=== PATIENT | female | born 1945 | race Caucasian/White ===

== ENCOUNTER 2024-08-06 17:09 | Inpatient (IN) | payer MEDICARE, SELFPAY ==
[2024-08-06] VITALS (13 sets, daily range): BP systolic 60–127; BP diastolic 32–113; PULSE 41–58; RESP 12–22; TEMP 36.3–36.4; O2SAT 93–98
--- NOTE | ~2024-08-06 | US_ITS ---
US renal BI Ordering provider: Mary Farrell MD History: . TOÑA . Comparison: None. Technique: Ultrasound bilateral kidneys. Findings: RIGHT KIDNEY: Measures 11.9x 6.2x 5 cm in length which is normal in size. No renal cysts. No renal ma ss or visualized echogenic stones. Otherwise, normal echotexture and contour. No hydronephrosis. Norm al renal cortical thickness. LEFT KIDNEY: Measures 10.8x 5x 4 cm in length which is normal in size. No renal cysts. No renal mass or visualized echogenic stones. Otherwise, normal echotexture and contour. No hydronephrosis. Normal renal cortical thickness. BLADDER: Stafford's catheter seen in the bladder. IMPRESSION: No definite abnormality seen. Reviewed, dictated and finalized at location A. WRESTLER
--- NOTE | ~2024-08-06 | XR_ITS ---
XR chest 1V portable 08/15/2024 13:06 Indication: Pacemaker insertion Procedure: AP portable chest Comparison: 08/06/2024 and 08/07/2024 Findings: Cardiomegaly. Mild interstitial edema. Pacemaker leads are in the right atrium and right ve ntricle respectively. Right IJ central line tip in the SVC. No significant effusion. No pneumothorax. Impression: 1: Cardiomegaly with mild interstitial edema. Reviewed, dictated and finalized at location A. PEEL OPERATOR Impression: 1: Cardiomegaly with mild interstitial edema.
--- NOTE | ~2024-08-06 | XR_ITS ---
CHEST RADIOGRAPH CLINICAL HISTORY: hypotensive . COMPARISON: None available TECHNIQUE: Single portable view of the chest. Examination is markedly limited by patient positioning as the patient is rotated towards there right side. FINDINGS Elevation of the right hemidiaphragm with adjacent compressive atelectasis. The cardiomediastinal silhouette is partially obscured by the right hilum. The remainder of the lungs are clear. IMPRESSION: Elevation of the right hemidiaphragm with adjacent compressive atelectasis. The remainder of the lungs are clear. Reviewed, dictated and finalized at location A. IRER ART OBJECTS
--- NOTE | ~2024-08-06 | CT_ITS ---
EXAMINATION: CT chest abdomen pelvis wo con DATE: 08/13/2024 14:37 INDICATION: Persistent leukocytosis. TECHNIQUE: Computed tomography (CT) of the chest, abdomen, and pelvis was performed without intraveno us contrast. Automated exposure control and iterative reconstruction technique were employed. The dos e-length product was 1736.13 mGy-cm. COMPARISON: 08/06/2024 FINDINGS: CHEST CT: Right internal jugular central venous catheter with distal tip at the superior cavoatrial junction. T here are small bilateral posterior layering pleural effusions. There are new patchy groundglass opaci ties in both lungs most prominent in the upper lobes but without significant associated septal line t hickening to elevate suspicion for pulmonary edema and would favor pneumonia. Heart size is normal. S mall amount of scattered atherosclerotic coronary artery calcification. Aortic valve and mitral annul ar calcification. No pericardial effusion. Severe thoracic spondylosis with chronic mild anterior wed ging of a few mid to lower thoracic vertebral bodies. ABDOMEN/PELVIS CT: Prominent peripherally calcified gallstone at the fundus of the normal-appearing gallbladder. Liver, spleen, pancreas and bilateral adrenal glands are normal. Again seen is bilateral nephrolithiasis mor e prominent on the right where there are unchanged large stones or stone fragments at the renal pelvi s and in an upper pole calyx. Unchanged 3 mm stone in a middle calyx of the left kidney. New right in ternal ureteral stent with loops formed in the decompressed bladder and in an upper pole calyx of the right kidney. No hydronephrosis on either the left or right. Small amount of gas in the decompressed bladder likely related to the recent stent placement. There is moderate colonic diverticulosis with a sigmoid predominance. There is no adjacent inflammatory change to suggest diverticulitis. Normal appendix. No bowel obstruction unchanged moderate-sized fat-containing umbilical hernia. Coarse calci fications in the anteverted uterus likely related to chronic degenerated fibroids. Bilateral adnexa a re unremarkable. No abscess or free intraperitoneal gas or fluid. No pathologically enlarged abdomina l or pelvic lymphadenopathy. Severe lumbar spondylosis. 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 IMPRESSION: 1. Patchy bilateral groundglass opacities in the lungs and favor pneumonia over pulmonary edema with differential also including less likely hypersensitivity pneumonitis or eosinophilic pneumonia. 2. Small bilateral pleural effusions. 3. Cholelithiasis. 4. Bilateral nephrolithiasis more prominent on the right with right internal ureteral stent in expect ed position. No hydronephrosis. 5. Moderate diverticulosis. 6. Moderate-sized fat-containing umbilical hernia. Reviewed, dictated and finalized at location B. STORE MERCHANDISER IMPRESSION: 1. Patchy bilateral groundglass opacities in the lungs and favor pneumonia over pulmonary edema with differential also including less likely hypersensitivity pneumonitis or eosinophilic pneumonia. 2. Small bilateral pleural effusions. 3. Cholelithiasis. 4. Bilateral nephrolithiasis more prominent on the right with right internal ur eteral stent in expected position. No hydronephrosis. 5. Moderate diverticulosis. 6. Moderate-sized fat-containing umbilical hernia.
--- NOTE | ~2024-08-06 | XR_ITS ---
EXAMINATION: XR retrograde pyelo w/stent RT DATE: 08/07/2024 12:10 INDICATION: Right kidney stone. TECHNIQUE: 2 intraoperative fluoroscopic views of the abdomen were obtained. I was not present. Fluor oscopy exposure time was 26 seconds. COMPARISON: CT abdomen and pelvis 08/06/24 FINDINGS: A right-sided retrograde pyelogram was performed. The final images demonstrate a right inte rnal ureteral stent in expected position. IMPRESSION: 1. Right internal ureteral stent in expected position. Reviewed, dictated and finalized at location A. ITURE DECALS INSPECTOR
--- NOTE | ~2024-08-06 | XR_ITS ---
Portable chest x-ray Comparison: 08/05/2024 Clinical History: Line placement Findings: Right IJ line are in satisfactory position. No pneumothorax. Lungs are clear, without foca l consolidation or pleural effusion. Cardiomediastinal silhouette is stable. Bones and soft tissues are unremarkable. Impression: Right IJ line in place. Clear lungs. Reviewed, dictated and finalized at location . E TENDER Impression: Right IJ line in place. Clear lungs.
--- NOTE | ~2024-08-06 | XR_ITS ---
EXAMINATION: XR chest 1V portable DATE: 08/16/2024 12:50 INDICATION: 24 hour post pacemaker insertion TECHNIQUE: frontal view of the chest was obtained. COMPARISON: Chest radiograph dated 08/15/2024 FINDINGS: Patient is rotated slightly towards the right. Unchanged mild elevation the right hemidiaphragm. Ther e are linear opacities in the right mid to lower and left lower lung zones consistent with discoid at electasis. No pulmonary edema, pleural effusion or pneumothorax. Mild cardiomegaly. Dual lead pacemak er seen with leads projecting over the expected locations of the right atrium and right ventricle. Right internal jugular central venous catheter with distal tip at the caudal superior vena cava. IMPRESSION: 1. Scattered linear discoid atelectasis in the right mid to lower and left lower lung zones. Reviewed, dictated and finalized at location B. TRY FARM LABORER IMPRESSION: 1. Scattered linear discoid atelectasis in the right mid to lower and left lowe r lung zones.
--- NOTE | ~2024-08-06 | CT_ITS ---
CLINICAL INDICATION: Hypotension and diarrhea COMPARISON: None. TECHNIQUE: Multiple contiguous axial images of the abdomen and pelvis were performed without the admi nistration of intravenous contrast The dose-length product (DLP) was 1878.27 mGy-cm. Automated exposure control and iterative reconstruction technique were employed. FINDINGS/OBSERVATIONS: Chest: The bilateral lungs are clear. The heart is enlarged without pericardial effusion. The main pulmonary artery is enlarged suggesting pulmonary hypertension. No significant mediastinal lymphadenopathy. Diffuse bony demineralization within the thoracic spine. No acute fracture. Liver: The liver demonstrates homogeneous attenuation and is not enlarged measuring 17 cm in longitudinal di mension. Gallbladder and biliary system: A large lamellated stone is identified in the gallbladder without surrounding inflammatory change. Pancreas: Limited evaluation of the pancreas secondary to the lack of intravenous contrast. Spleen: The spleen demonstrates homogeneous attenuation and is not enlarged measuring 6 cm in longitudinal di mension. Kidneys: A large calcified stone opacifies the right renal pelvis (staghorn calculus) with global enlargement of the right kidney. Diffuse calcified stones are also identified within the remainder of the periphery of the right renal collecting system. The right ureter is not dilated. 4 mm nonobstructing calculus within the interpolar region of the left kidney. No left-sided hydroureteronephrosis is present. Adrenal glands: Unremarkable. Gastrointestinal tract: Rectosigmoid diverticulosis without surrounding inflammatory change. Fecal stasis within the colon. Appendix: The air-filled appendix is of normal caliber (axial series, images 89 through 112) Vasculature: Densely calcified atherosclerotic disease Lymph nodes: No pathologically enlarged or morphologically suspicious lymph nodes within the retroperitoneum or at the root of the mesentery. Pelvic structures: The bladder is only minimally distended, and demonstrates punctate foci of air with surrounding infla mmatory change, findings suggesting cystitis. The uterus is anteverted and anteflexed, and enlarged for a patient of this age. The uterus demonstrates a calcified nodular contour for which fibroids are suspected. Body wall and musculoskeletal: Large fat-containing, nonobstructing umbilical hernia Moderate degenerative disease within the lumbosacral spine. No acute fracture. No lytic or blastic le sions identified. IMPRESSION: Findings within the chest suggesting pulmonary hypertension. Staghorn calculus within the right kidney with global enlargement of the right kidney and surrounding inflammatory change. Lamellated stone within the gallbladder without additional abnormality. Punctate foci of air within the bladder with surrounding inflammatory change suggesting cystitis. Fibroid uterus, enlarged for a patient of this age. Nonobstructing fat-containing umbilical hernia. 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 Reviewed, dictated and finalized at location A. RSION METAL CLEANER IMPRESSION: Findings within the chest suggesting pulmonary hypertension. Staghorn calculus within the right kidney with global enlargement of the right kidney and surrounding inflammatory change. Lamellated stone within the gallbladder without additional abnormality. Punctate foci of air within the bladder with surrounding inflammatory change montgomery ggesting cystitis. Fibroid uterus, enlarged for a patient of this age. Nonobstructing fat-containing umbilical hernia. 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
--- NOTE | ~2024-08-06 | US_ITS ---
EXAM: ABDOMEN ULTRASOUND HISTORY: transaminitis COMPARISON: None FINDINGS: LIVER: The liver is increased in echogenicity suggesting fatty infiltration. The portal vein is patent demonstrating hepatopedal flow. GALLBLADDER: A single lamellated stone is identified within the gallbladder, which is otherwise unrem arkable. A sonographic Berry sign is described. BILE DUCTS: Common bile duct measures 3.7mm. PANCREAS: Limited evaluation of the pancreas secondary to overlying bowel gas IMPRESSION: Single lamellated stone within the gallbladder with a sonographic Berry sign. Reviewed, dictated and finalized at location A. MACHINE OPERATOR
--- NOTE | 2024-08-06 17:28 | PC.NURSE ---
EDP aware of Pt vitals
[2024-08-06] MEDS: SODIUM CHLORIDE 0.9% IV 1,000 ML 999 ML IV CONT ×4 (17:30→20:29)
--- NOTE | 2024-08-06 17:36 | ECG_ITS ---
Test Date: 2024-08-06 19:00:42 Measurements Intervals [place] Rate: 44 P: 0 CA: 0 QRS: 30 QRSD: 125 T: 155 QT: 446 QTc: 382 Interpretive Statements POSSIBLE JUNCTIONAL BRADYCARDIA INFERIOR MYOCARDIAL INFARCTION , OF INDETERMINATE AGE [40+ ms Q WAVE AND/OR ST/T ABNORMALITY IN II/aVF] No previous ECG available for comparison Electronically Signed On 08-08-2024 17:16:44 BENDER MACHINE by Christian Springer M.D.
--- NOTE | 2024-08-06 17:48 | ED_ITS ---
HPI - Weakness General Chief complaint: Weakness Stated complaint: weakness, sore throat Time Seen by Provider: 08/06/24 17:12 Source: patient and RN notes reviewed Mode of arrival: EMS Limitations: no limitations History of Present Illness HPI Narrative: Patient presents with generalized weakness, sore throat, and decreased p.o. intake since Thanks. EMS found her on a feces in urine-soaked mattress. Patient lives with her she states her kept asking her if she wanted to go to the hospital but she kept declining this until today. She is on 2 L oxygen nasal cannula as needed and has a history of asthma, COPD, atrial fibrillation, and hypertension. She denies any cough, chest pain, shortness of breath, abdominal pain, or headache. She states she had some diarrhea today but that is the 1st time. Related Data Home Medications ?Medication ?Instructions ?Recorded ?Confirmed ?Last Taken ?Type albuterol sulfate 90 mcg/actuation 1 inhalation inhalation BID 08/07/24 08/07/24 Unknown History aerosol inhaler amiodarone 200 mg tablet 200 mg PO DAILY 08/07/24 08/07/24 Unknown History apixaban 2.5 mg tablet (Eliquis) 2.5 mg PO BID 08/07/24 08/07/24 Unknown History atorvastatin 10 mg tablet 5 mg PO QPM 08/07/24 08/07/24 Unknown History bupropion HCl 150 mg tablet,12 hr 150 mg PO BID 08/07/24 08/07/24 Unknown History sustained-release carvedilol 3.125 mg tablet 3.125 mg PO BID 08/07/24 08/07/24 Unknown History fluoxetine 20 mg capsule 20 mg PO DAILY 08/07/24 08/07/24 Unknown History fluticasone propionate 50 1 spray intranasal DAILY 08/07/24 08/07/24 Unknown History mcg/actuation nasal spray,suspension (Flonase Allergy Relief) furosemide 40 mg tablet 40 mg PO DAILY 08/07/24 08/07/24 Unknown History loratadine 10 mg tablet 10 mg PO DAILY 08/07/24 08/07/24 Unknown History sacubitril 24 mg-valsartan 26 mg 1 tablet PO BID 08/07/24 08/07/24 Unknown History tablet (Entresto) sodium di- and 1 tablet PO QID 08/07/24 08/07/24 Unknown History monophosphate-potassium phos monobasic 250 mg tablet (Fan-Phos Neutral) spironolactone 25 mg tablet 25 mg PO DAILY 08/07/24 08/07/24 Unknown History topiramate 25 mg tablet 25 mg PO BID 08/07/24 08/07/24 Unknown History Allergies Allergy/AdvReac Type Severity Reaction Status Date / Time BLOOD PRESSURE PILL Allergy Unknown Uncoded 06/10/15 08:59 [facility] Past Medical History Medical History Paroxysmal atrial fibrillation Chronic anticoagulation Chronic kidney disease CHF (congestive heart failure) Morbid obesity with BMI of 45.0-49.9, adult HTN (hypertension) COPD (chronic obstructive pulmonary disease) Asthma Family History Family History Mother Kidney failure Social History Social History Social History: She lives with her of 48 years. She has 2 adult children who do not live nearby. She is a lifelong nonsmoker and denies any history of drug use. 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 She used to drink a couple of alcoholic beverages a week but has not done so in many years. Code status: After multiple conversations and discussion with multiple staff members the patient has decided that she would like to be a DNR/DNI. She would be okay with pressors and noninvasive ventilator support if needed but would not want cardiac resuscitation or intubation. Surrogate decision maker: Smoking status: Never smoker Alcohol intake: never Substance use: never Do You Feel Safe in your Home?: Yes Lack of Transportation: No Lack of Food: Never True Current Housing: I Have Housing Concerned About Future Housing: No Difficulty Paying Gas/Electric Bills: No Difficulty Paying for Meds: No Currently Unemployed: No Education: Decline to Answer Difficulty w/ Childcare or Family Care: No Living arrangements: with family Additional living arrangements comments: Spiritual care concerns: No Exam 2 Narrative: GENERAL: iin no acute distress. HEAD: Normocephalic, atraumatic. EYES: Non injected, non icteric ENT: Nares clear, no rhinorrhea or epistaxis. Dry mucous membranes. NECK: Supple. CHEST: Speaking in full sentences. No respiratory distress. Diminished at the bases HEART: Bradycardic rate and rhythm. . ABDOMEN: Soft, nondistended. BACK: Patient has stage I sacral decubitus ulcer with a very slight ulceration on one side. : Groin has some yeast and slight skin breakdown but no bullae/crepitus SKIN: Warm, dry, rash as above. NEURO: No focal deficits. Alert and oriented x3. PSYCH: Normal mood and affect. Course Vital Signs Vital signs: Vital Signs Temperature 97.5 F L 08/06/24 17:08 Pulse Rate 58 L 08/06/24 17:08 Respiratory Rate 12 08/06/24 17:08 Blood Pressure 68/32 L 08/06/24 17:08 Pulse Oximetry 96 08/06/24 17:08 Oxygen Delivery Room Air 08/06/24 17:08 Temperature 99.1 F 08/11/24 04:00 Pulse Rate 727 H 08/11/24 04:00 Respiratory Rate 31 H 08/11/24 04:00 Blood Pressure 107/72 08/11/24 04:00 Pulse Oximetry 93 08/11/24 04:00 Oxygen Delivery Nasal Cannula 08/11/24 00:00 Oxygen Flow Rate 2 08/11/24 00:00 MDM - Weakness MDM Narrative Medical decision making narrative: Patient presents with report of generalized weakness, sore throat, and decreased p.o. intake since . EMS found her on the urine and feces soaked mattress. In the emergency department she is afebrile with vital signs that show mild bradycardia as well as profound hypotension. Patient's medication list is reviewed which shows she is on Entresto as well spironolactone. She denies any history of heart failure that she knows of. She is also on Eliquis. Patient states she has been taking her medications as prescribed despite being weak; she mixes them in applesauce. Although she has a sore throat, Centor score 0 points. Will not proceed with testing for Strep but will give 1 time dose of dexamethasone muniz improved time to symptom resolution of pharyngitis. Less than 30ml/kg crystalloid bolus was initially ordered because it would be detrimental or harmful for the patient despite having Hypotension. The patient has the following condition Heart failure (based on medications on her med list - Entresto and spironolactone - and elevated pro BNP). In place of the 30ml/kg crystalloid bolus (>3600mL), the patient has received 2L initially. She has a leukocytosis of 22.3. Urinalysis concerning for urinary tract infection. Given her profound hypotension, will give broad spectrum antibiotics, vancomycin and cefepime. She is hypokalemic. Will replete with IV and PO given acute renal failure. Also hyponatremic. Transaminitis; RUQ US ordered. CT will have to be noncontrast given kidney function. Patient remains hypotensive, 80/50. Will give 3 L given that despite heart failure her chest x-ray does not show volume overload. Patient's calcium corrects to normal (9.0) given their hypoalbuminemia. Troponin is elevated. Will give patient aspirin and repeat 3 hour. Blood pressure improving and then at times Patient will intermittently if continue to appear hypotensive. I did go to bedside and see that she has a small cuff on her right forearm; this does not appear to be an appropriate method. A bariatric cuff was applied to her right upper extremity and BP 120/87 (MAP 96) followed by 127/113 (119 MAP). She remains alert and appears to be slightly more active although still weak. Patient had told the nurses she would not want chest compressions. Did assess at bedside and patient confirms in the event of cardiopulmonary arrest she does not want chest compressions or intubation then stating, If I should before I wake, I pray my soul you do not take. DIscussed with recreation superintendent hospitalist Dr Rose. Admission orders placed. Differential Diagnosis Differential diagnosis: Likely acute myocardial infarction, anemia, hypoglycemia, hypothyroidism, rhabdomyolysis, sepsis, dehydration and other (Acute viral syndrome, failure to thrive, ) Lab Data 08/10/24 05:52 08/10/24 05:52 Labs: Lab Results 08/06/24 08/06/24 08/06/24 Range/Units 17:53 17:58 18:13 WBC (4.5-10.0) K/mm3 RBC (4.2-5.4) M/mm3 Hgb (12.0-15.0) g/dL Hct (37.0-47.0) % MCV (80-100) fl MCH (26-34) pg MCHC (32-36) g/dl RDW (11.5-14.5) % Plt Count (150-375) k/mm3 MPV (7.4-10.4) fl Immature Gran % (Auto) Neut % (Auto) Lymph % (Auto) [place] % (Auto) Eos % (Auto) Baso % (Auto) Lymph # (Auto) [place] # (Auto) Eos # (Auto) Baso # (Auto) Abs Immat Gran (auto) Absolute Neuts (auto) Absolute Nucleated RBC Total Counted Neutrophils % (Manual) (46-73) % Band Neutrophils % (0-6) % Lymphocytes % (Manual) (18-44) % Monocytes % (Manual) (3-9) % Eosinophils % (Manual) (0-4) % Nucleated RBC % Abs Neuts (Manual) (1.7-7.2) K/mm3 Abs Lymphs (Manual) (1.1-4.5) K/mm3 Abs Monocytes (Manual) (0.1-0.90) K/mm3 Absolute Eos (Manual) (0.02-0.50) K/mm3 Platelet Estimate (Adequate) Large Platelets Schistocytes Sodium (137-145) mmol/L Potassium (3.4-5.0) mmol/L Chloride (98-107) mmol/L Carbon Dioxide (22-30) mmol/L Anion Gap (4-12) mmol/L BUN (7-17) mg/dL Creatinine (0.7-1.0) mg/dL Estim Creat Clear Calc ml/min Estimated GFR (59 - ) Glucose (65-110) mg/dL POC Capillary Glucose (65-105) mg/dl Lactic Acid (0.7-2.0) mmol/L Calcium (8.4-10.2) mg/dL Phosphorus (2.5-4.5) mg/dL Magnesium (1.6-2.3) mg/dL Total Bilirubin (0.2-1.3) mg/dL AST (14-36) U/L ALT (6-35) U/L Alkaline Phosphatase (38-126) U/L Total Creatine Kinase (30-135) U/L Troponin I (0.000-0.034) ng/mL NT-Pro-B Natriuret Pep (19.9-100) pg/mL Total Protein (6.3-8.2) g/dL Albumin (3.5-5.1) g/dL Procalcitonin ng/mL TSH (0.465-4.680) uIU/mL Urine Color Light red H (Yellow) Urine Appearance Turbid H (Clear) Urine pH TNP Ur Specific [place] TNP Urine Protein TNP Urine Glucose (UA) TNP Urine Ketones TNP Ur Blood (Man) TNP Urine Nitrate TNP Urine Bilirubin TNP Urine Urobilinogen TNP Add Ur Microanalysis Reviewed Leukocyte Esterase Rfl TNP Urine RBC >100 H (0-2) /hpf Urine WBC >100 H (0-3) /hpf Ur Squamous Epith Cells Many H (Few) /hpf Urine Bacteria 4+ /hpf Urine Opiates Screen Positive A (Negative) Urine Methadone Screen Negative (Negative) Ur Barbiturates Screen Negative (Negative) Ur Phencyclidine Scrn Negative (Negative) Ur Amphetamine Screen Negative (Negative) U Benzodiazepines Scrn Negative (Negative) Urine Cocaine Screen Negative (Negative) U Cannabinoids Screen Negative (Negative) C. difficile (PCR) Cancelled Influenza A (RT-PCR) Negative (Negative) Influenza B (RT-PCR) Negative (Negative) RSV (RT-PCR) Negative (Negative) SARS-CoV-2 RNA (RT-PCR) Negative (Negative) 08/06/24 08/06/24 Range/Units 18:14 19:11 WBC 22.3 H (4.5-10.0) K/mm3 RBC 4.09 L (4.2-5.4) M/mm3 Hgb 13.6 (12.0-15.0) g/dL Hct 37.3 (37.0-47.0) % MCV 91.2 (80-100) fl MCH 33.3 (26-34) pg MCHC 36.5 H (32-36) g/dl RDW 13.5 (11.5-14.5) % Plt Count 290 (150-375) k/mm3 MPV 9.9 (7.4-10.4) fl Immature Gran % (Auto) Not Reportable Neut % (Auto) Not Reportable Lymph % (Auto) Not Reportable [place] % (Auto) Not Reportable Eos % (Auto) Not Reportable Baso % (Auto) Not Reportable Lymph # (Auto) Not Reportable [place] # (Auto) Not Reportable Eos # (Auto) Not Reportable Baso # (Auto) Not Reportable Abs Immat Gran (auto) Not Reportable Absolute Neuts (auto) Not Reportable Absolute Nucleated RBC Not Reportable Total Counted 100 Neutrophils % (Manual) 69 (46-73) % Band Neutrophils % 7 H (0-6) % Lymphocytes % (Manual) 5.0 L (18-44) % Monocytes % (Manual) 9 (3-9) % Eosinophils % (Manual) 10 H (0-4) % Nucleated RBC % Not Reportable Abs Neuts (Manual) 16.94 H (1.7-7.2) K/mm3 Abs Lymphs (Manual) 1.11 (1.1-4.5) K/mm3 Abs Monocytes (Manual) 2.00 H (0.1-0.90) K/mm3 Absolute Eos (Manual) 2.23 H (0.02-0.50) K/mm3 Platelet Estimate Adequate (Adequate) Large Platelets Present Schistocytes None seen Sodium 133 L (137-145) mmol/L Potassium 3.1 L (3.4-5.0) mmol/L Chloride 97 L (98-107) mmol/L Carbon Dioxide 25 (22-30) mmol/L Anion Gap 11 (4-12) mmol/L BUN 66 H (7-17) mg/dL Creatinine 3.38 H (0.7-1.0) mg/dL Estim Creat Clear Calc 16 ml/min Estimated GFR 13 L (59 - ) Glucose 107 (65-110) mg/dL POC Capillary Glucose 101 (65-105) mg/dl Lactic Acid 2.4 H (0.7-2.0) mmol/L Calcium 7.6 L (8.4-10.2) mg/dL Phosphorus 5.7 H (2.5-4.5) mg/dL Magnesium 1.8 (1.6-2.3) mg/dL Total Bilirubin 2.2 H (0.2-1.3) mg/dL AST 295 H (14-36) U/L ALT 242 H (6-35) U/L Alkaline Phosphatase 131 H (38-126) U/L Total Creatine Kinase < 20 L (30-135) U/L Troponin I 0.037 H* (0.000-0.034) ng/mL NT-Pro-B Natriuret Pep 4390 H (19.9-100) pg/mL Total Protein 5.0 L (6.3-8.2) g/dL Albumin 2.3 L (3.5-5.1) g/dL Procalcitonin 2.3 ng/mL TSH 3.430 (0.465-4.680) uIU/mL Urine Color (Yellow) Urine Appearance (Clear) Urine pH Ur Specific [place] Urine Protein Urine Glucose (UA) Urine Ketones Ur Blood (Man) Urine Nitrate Urine Bilirubin Urine Urobilinogen Add Ur Microanalysis Leukocyte Esterase Rfl Urine RBC (0-2) /hpf Urine WBC (0-3) /hpf Ur Squamous Epith Cells (Few) /hpf Urine Bacteria /hpf Urine Opiates Screen (Negative) Urine Methadone Screen (Negative) Ur Barbiturates Screen (Negative) Ur Phencyclidine Scrn (Negative) Ur Amphetamine Screen (Negative) U Benzodiazepines Scrn (Negative) Urine Cocaine Screen (Negative) U Cannabinoids Screen (Negative) C. difficile (PCR) Influenza A (RT-PCR) (Negative) Influenza B (RT-PCR) (Negative) RSV (RT-PCR) (Negative) SARS-CoV-2 RNA (RT-PCR) (Negative) Imaging Data Radiologist's impression: Impressions Chest X-Ray 08/06/24 18:43 IMPRESSION: Elevation of the right hemidiaphragm with adjacent compressive atelectasis. The remainder of the lungs are clear. Abdomen Ultrasound 08/06/24 20:18 IMPRESSION: Single lamellated stone within the gallbladder with a sonographic Berry sign. Chest/Abdomen/Pelvis CT 08/06/24 20:22 IMPRESSION: Findings within the chest suggesting pulmonary hypertension. Staghorn calculus within the right kidney with global enlargement of the right kidney and surrounding inflammatory change. Lamellated stone within the gallbladder without additional abnormality. Punctate foci of air within the bladder with surrounding inflammatory change suggesting cystitis. Fibroid uterus, enlarged for a patient of this age. Nonobstructing fat-containing umbilical hernia. 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 ECG Data EKG #1: Attestation: I personally reviewed and interpreted this ECG as follows: ECG completion date: 08/06/24 ECG completion time: 19:00 Interpretation: Unclear rhythm though potentially slow atrial fibrillation versus junctional. QRS 125. QT/QTC 446/395. Discharge Plan Discharge Clinical Impression: Generalized weakness, Pharyngitis, Leukocytosis, Heart failure, Hypokalemia, Hyponatremia, Transaminitis, Hypoalbuminemia, Non-ST elevation [place] (NSTEMI), Pulmonary hypertension, Staghorn calculus, Cystitis, Fibroid uterus, DDD (degenerative disc disease), lumbosacral, Bradycardia, sinus UTI (urinary tract infection) Qualifiers: Urinary tract infection type: acute cystitis Hematuria presence: with hematuria Qualified Code(s): N30.01 - Acute cystitis with hematuria Acute renal failure Qualifiers: Acute renal failure type: unspecified Qualified Code(s): N17.9 - Acute kidney failure, unspecified Hernia, umbilical Qualifiers: Obstruction and gangrene presence: without obstruction or gangrene Qualified Code(s): K42.9 - Umbilical hernia without obstruction or gangrene Patient Disposition: Still a Patient Condition: Serious
[2024-08-06] MEDS: dexAMETHasone 2 MG TABLET 10 MG PO (18:07)
[2024-08-06 18:22] LABS: Hematocrit 37.3 % (37.0-47.0); Hemoglobin 13.6 g/dL (12.0-15.0); Mean Corpuscular HGB Conc 36.5 g/dl (32-36); Mean Corpuscular Hemoglobin 33.3 pg (26-34); Mean Corpuscular Volume 91.2 fl (80-100); Mean Platelet Volume 9.9 fl (7.4-10.4); Platelet Count Result 290 k/mm3 (150-375); Red Blood Count 4.09 M/mm3 (4.2-5.4); Red Cell Distribution Width 13.5 % (11.5-14.5); White Blood Count 22.3 K/mm3 (4.5-10.0)
[2024-08-06 18:23] LABS: Amphetamine Screen Urine Negative (Negative); Barbiturate Screen Urine Negative (Negative); Benzodiazepines Screen Urine Negative (Negative); Cannabinoid Screen Urine Negative (Negative); Cocaine Screen Urine Negative (Negative); Methadone Screen Urine Negative (Negative); Opiate Screen Urine Positive (Negative); Phencyclidine Screen Urine Negative (Negative)
[2024-08-06 18:32] LABS: Lactic Acid Reflex 2.4 mmol/L (0.7-2.0)
[2024-08-06 18:41] LABS: NT Pro B Type Natriuretic Pept 4390 pg/mL (19.9-100)
[2024-08-06 18:50] LABS: Bacteria Urine 4+ /hpf; Need Manual Microscopic Reviewed; RBC Urine >100 /hpf (0-2); Squamous Epithelial Cell Urine Many /hpf (Few); WBC Urine >100 /hpf (0-3)
[2024-08-06 18:58] LABS: Influenza A QL RT-PCR Negative (Negative); Influenza B QL RT-PCR Negative (Negative); RSV RNA, RT-PCR Negative (Negative); SARS-CoV-2 RNA PCR Negative (Negative)
[2024-08-06 19:00] LABS: Procalcitonin 2.3 ng/mL
[2024-08-06 19:05] LABS: Appearance Urine Turbid (Clear); Color Urine Light Red (Yellow)
[2024-08-06 19:09] LABS: Add Urine Microscopic? YES
[2024-08-06 19:16] LABS: Glucose Point of Care 101 mg/dl (65-105)
[2024-08-06 19:18] LABS: Alanine Aminotransferase 242 U/L (6-35); Albumin Level 2.3 g/dL (3.5-5.1); Alkaline Phosphatase 131 U/L (38-126); Anion Gap 11 mmol/L (4-12); Aspartate Amino Transferase 295 U/L (14-36); Bilirubin,Total 2.2 mg/dL (0.2-1.3); Blood Urea Nitrogen 66 mg/dL (7-17); Calcium 7.6 mg/dL (8.4-10.2); Carbon Dioxide 25 mmol/L (22-30); Chloride 97 mmol/L (98-107); Estimated CRCL calculation 16 ml/min; Estimated Glomerular Filt Rate 13; Glucose 107 mg/dL (65-110); Magnesium 1.8 mg/dL (1.6-2.3); Potassium 3.1 mmol/L (3.4-5.0); Sodium 133 mmol/L (137-145); Troponin I 0.037 ng/mL (0.000-0.034)
[2024-08-06 19:21] LABS: Creatine Kinase < 20 U/L (30-135)
[2024-08-06 19:22] LABS: Band Neutrophils Percent 7 % (0-6); Eosinophils Absolute Manual 2.23 K/mm3 (0.02-0.50); Eosinophils Percent Manual 10 % (0-4); Large Platelets Present; Lymphocytes Absolute Manual 1.11 K/mm3 (1.1-4.5); Monocytes Percent Manual 9 % (3-9); Neutrophils Absolute Manual 16.94 K/mm3 (1.7-7.2); Neutrophils Percent Manual 69 % (46-73); Platelet Estimate Adequate (Adequate); Schistocytes None Seen; Total Cells Counted 100
[2024-08-06] MEDS: ASPIRIN 81 MG CHEWABLE TABLET 324 MG PO (19:58)
[2024-08-06] MEDS: CEFEPIME 1 GM/NS 50 ML 1 GM/50 ML BAG IVPB (20:00)
[2024-08-06] MEDS: POTASSIUM BICARBONATE 25 MEQ TABEF PO (20:03)
[2024-08-06 20:14] LABS: Phosphorus 5.7 mg/dL (2.5-4.5)
[2024-08-06] MEDS: KCL 20 MEQ/SW 100 ML 100 ML 50 MEQ IVPB (20:29)
[2024-08-06 21:19] LABS: Reflex Lactic Acid Yes or No Add Lactic
[2024-08-06] MEDS: VANCOMYCIN 1,750 MG/NS 500 ML 1,750 MG/500 ML BAG 250 MG IVPB (21:27)
--- NOTE | 2024-08-06 21:44 | ECG_ITS ---
Test Date: 2024-08-06 21:50:10 Measurements Intervals [place] Rate: 91 P: -30 MD: 201 QRS: 37 QRSD: 124 T: 206 QT: 376 QTc: 463 Interpretive Statements UNCERTAIN RHYTHM DUE TO POOR TRACING QUALITY Compared to ECG 08/06/2024 19:00:42 UNCERTAIN RHYTHM DUE TO POOR TRACING QUALITY Electronically Signed On 08-08-2024 17:19:23 DOCTOR OF OSTEOPATHY by Christian Springer M.D.
[2024-08-06 22:30] LABS: Lactic Acid 1.5 mmol/L (0.7-2.0)
[2024-08-06 22:32] LABS: Troponin I 0.027 ng/mL (0.000-0.034)
--- NOTE | 2024-08-06 23:07 | P.HP_ITS ---
H&P: HPI History of Present Illness Date/Time: 08/06/24 23:07 Chief Complaint: Weakness Narrative: 79-year-old female with a past medical history of p.r.n. oxygen requirement, CHF, atrial fibrillation on chronic anticoagulation, depression, and essential hypertension who presented to the ER via EMS from home from home due to decreased oral intake since and generalized weakness. EMS found the patient laying in a urine and feces soaked mattress. The patient states that she lives with her of 40 years. She was discharged from acute rehab shortly before . She denies any fevers or chills. She has been having bilateral lower abdominal pain is cramping and aching in nature. Is accompanied by 2 weeks of dysuria. She denies any nausea or vomiting. Denies fevers or chills. She denies any shortness of breath. She reports that she is chronically constipated and did have 1 large soft stool on arrival to the ER. But again EMS found the patient on a urine and stool soaked mattress at home. Patient is alert orient x4. Source of information comes from ER physician report and on patient report. Patient is only a fair historian at best. She really denies history of heart failure but is on Entresto spironolactone and Lasix at home. She does have a history of paroxysmal atrial fibrillation and is on amiodarone and Eliquis chronically. She denies history of kidney disease but is on sodium phosphate supplementation. She reports that her mouth feels extremely dry and keeps asking for water. She states that she had been in a rehab placement sounds like for quite some time prior to being released. Although it does not sound like she recovered much of her functional status before being discharged home. She is chronically incontinent of urine. On arrival to the ER patient was markedly hypotensive with systolic blood pressures in the 60s. Patient received 2 L fluid bolus in the ER with initial improvement in blood pressures but recurrent hypotension occurred and she received 1/3 L fluid bolus. Active through the bolus patient's blood pressures did, for an indeterminate amount time but she was still having intermittent low blood pressures. By the time I arrived to the patient's bedside she was again persistently hypotensive in both upper extremities. Her blood pressures were in the 60 systolic. And I gave an additional order for Force L of fluids and to start the patient on peripheral dopamine. Because patient was also persistently bradycardic with heart rates in the low 40s. The patient reports that she continued to take all of her home medications even though she was progressively more weak, not eating and drinking and was extremely lightheaded. Labs in the ER demonstrated leukocytosis with bandemia. Acute kidney injury (suspected underlying chronic kidney disease with baseline unknown) and hypokalemia, hyperbilirubinemia, transaminitis, lactic acidosis and hypoalbuminemia. Her opiate screen was positive but patient does not have any known prescriptions for opiate pain medications and did not receive pain medications in the ER. Her UA was turbid and red in color with greater than 100 RBCs greater than 100 wbc's in many squamous epithelials with 4+ bacteria. CT of the chest abdomen pelvis without contrast demonstrated findings consistent of pulmonary hypertension, staghorn calculus within the right kidney with global enlargement of the right kidney with inflammatory changes, punctate foci of air in the bladder with surrounding inflammatory changes suggesting cystitis, laminated stone within the gallbladder without evidence of inflammation, enlarged uterus with uterine fibroids enlarged for patient's age, nonobstructing fat containing hernia of the umbilicus Review of Systems 2 Review of Systems: 12 systems were reviewed with pertinent positives and negatives per HPI. Except as documented in the HPI, all other systems were reviewed and are negative. [facility] Past Medical History Medical History (Updated 08/07/24 @ 05:33 by Glenys Rose DO) Paroxysmal atrial fibrillation Chronic anticoagulation Chronic kidney disease CHF (congestive heart failure) Morbid obesity with BMI of 45.0-49.9, adult HTN (hypertension) COPD (chronic obstructive pulmonary disease) Asthma Family History Family History (Updated 08/07/24 @ 02:42 by Yazan Cisneros RN) Mother Kidney failure Social History Social History (Updated 08/07/24 @ 09:06 by Glenys Rose DO) Social History: She lives with her of 48 years. She has 2 adult children who do not live nearby. She is a lifelong nonsmoker and denies any history of drug use. 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 She used to drink a couple of alcoholic beverages a week but has not done so in many years. Code status: After multiple conversations and discussion with multiple staff members the patient has decided that she would like to be a DNR/DNI. She would be okay with pressors and noninvasive ventilator support if needed but would not want cardiac resuscitation or intubation. Surrogate decision maker: Smoking status: Never smoker Alcohol intake: never Substance use: never Do You Feel Safe in your Home?: Yes Lack of Transportation: No Lack of Food: Never True Current Housing: I Have Housing Concerned About Future Housing: No Difficulty Paying Gas/Electric Bills: No Difficulty Paying for Meds: No Currently Unemployed: No Education: Decline to Answer Difficulty w/ Childcare or Family Care: No Living arrangements: with family Additional living arrangements comments: Spiritual care concerns: No Meds Home Medications and Allergies Home Medications ?Medication ?Instructions ?Recorded ?Confirmed ?Type albuterol sulfate 90 mcg/actuation 1 inhalation inhalation BID 08/07/24 08/07/24 History aerosol inhaler amiodarone 200 mg tablet 200 mg PO DAILY 08/07/24 08/07/24 History apixaban 2.5 mg tablet (Eliquis) 2.5 mg PO BID 08/07/24 08/07/24 History atorvastatin 10 mg tablet 5 mg PO QPM 08/07/24 08/07/24 History bupropion HCl 150 mg tablet,12 hr 150 mg PO BID 08/07/24 08/07/24 History sustained-release carvedilol 3.125 mg tablet 3.125 mg PO BID 08/07/24 08/07/24 History fluoxetine 20 mg capsule 20 mg PO DAILY 08/07/24 08/07/24 History fluticasone propionate 50 1 spray intranasal DAILY 08/07/24 08/07/24 History mcg/actuation nasal spray,suspension (Flonase Allergy Relief) furosemide 40 mg tablet 40 mg PO DAILY 08/07/24 08/07/24 History loratadine 10 mg tablet 10 mg PO DAILY 08/07/24 08/07/24 History sacubitril 24 mg-valsartan 26 mg 1 tablet PO BID 08/07/24 08/07/24 History tablet (Entresto) sodium di- and 1 tablet PO QID 08/07/24 08/07/24 History monophosphate-potassium phos monobasic 250 mg tablet (Fan-Phos Neutral) spironolactone 25 mg tablet 25 mg PO DAILY 08/07/24 08/07/24 History topiramate 25 mg tablet 25 mg PO BID 08/07/24 08/07/24 History Allergies Allergy/AdvReac Type Severity Reaction Status Date / Time BLOOD PRESSURE PILL Allergy Unknown Uncoded 06/10/15 08:59 Vital Signs Vital Signs - 24 hr 08/06/24 17:08 08/06/24 17:47 08/06/24 18:15 Temperature 97.5 F L Pulse Rate 58 L 49 L 44 L Respiratory Rate 12 14 Blood Pressure 68/32 L 66/55 L Pulse Oximetry 96 97 Oxygen Delivery Room Air 08/06/24 19:05 08/06/24 20:00 08/06/24 20:04 Temperature Pulse Rate 45 L 46 L 45 L Respiratory Rate 16 17 15 Blood Pressure 80/40 L 112/53 L 112/60 Pulse Oximetry 95 98 98 Oxygen Delivery 08/06/24 20:31 08/06/24 20:45 08/06/24 21:00 Temperature Pulse Rate 41 L 43 L 42 L Respiratory Rate 19 13 22 H Blood Pressure 62/54 L 120/87 127/113 H Pulse Oximetry 96 96 96 Oxygen Delivery 08/06/24 21:31 08/06/24 22:07 08/06/24 22:24 Temperature 97.3 F L Pulse Rate 56 L 43 L 43 L Respiratory Rate 16 15 21 H Blood Pressure 98/64 L Pulse Oximetry 97 93 93 Oxygen Delivery Exam 2 Narrative: Weight 115 kg BMI 46.4 Const: Other: Acutely ill-appearing, morbidly obese, appears stated age HENMT: Other: Fair dentition, dry mucous membranes, crowded posterior oropharynx Eyes: Other: Pupils are equal and reactive, no conjunctival pallor, no scleral icterus Neck: Other: No JVD, trachea midline Resp: Other: Clear to auscultation bilaterally, decreased breath sounds at bases, posterior lung exam not performed due to patient's clinical status and positioning. Cardio: Other: Significant bradycardia, 1+ radial pulses bilaterally, thready pedal pulses, no obvious murmur but distant heart sounds GI: Other: Morbidly obese, distended, soft : Other: Pure wick catheter in place with dark deepika/almost tea colored urine is slightly cloudy Skin: Other: Generalized pallor, non jaundice, cool to touch, 4-5 second cap refill, mottling of the hands and feet, nursing reported breakdown to the patient's buttocks of stage I I did not reposition the patient to evaluate as she was overtly hypotensive at the time of my evaluation Neuro: Other: Alert orient x4, speech is clear but slow, hard of hearing Extrem: Other: A no pitting edema, 3/5 rental car deliverer strength bilaterally patient having difficulty lifting her arms from the bed due to degree of weakness no clubbing, no cyanosis Psych: Other: Appropriate mood and affect, pleasant and cooperative, fair judgment and insight H&P: Results Labs Labs: Laboratory Tests 08/06/24 18:14 08/06/24 18:14 08/06/24 08/06/24 08/06/24 17:53 17:58 18:14 WBC 22.3 H RBC 4.09 L Hgb 13.6 Hct 37.3 MCV 91.2 MCH 33.3 MCHC 36.5 H RDW 13.5 Plt Count 290 MPV 9.9 Immature Gran % (Auto) Not Reportable Neut % (Auto) Not Reportable Lymph % (Auto) Not Reportable [place] % (Auto) Not Reportable Eos % (Auto) Not Reportable Baso % (Auto) Not Reportable Lymph # (Auto) Not Reportable [place] # (Auto) Not Reportable Eos # (Auto) Not Reportable Baso # (Auto) Not Reportable Abs Immat Gran (auto) Not Reportable Absolute Neuts (auto) Not Reportable Absolute Nucleated RBC Not Reportable Total Counted 100 Neutrophils % (Manual) 69 Band Neutrophils % 7 H Lymphocytes % (Manual) 5.0 L Monocytes % (Manual) 9 Eosinophils % (Manual) 10 H Nucleated RBC % Not Reportable Abs Neuts (Manual) 16.94 H Abs Lymphs (Manual) 1.11 Abs Monocytes (Manual) 2.00 H Absolute Eos (Manual) 2.23 H Platelet Estimate Adequate Large Platelets Present Schistocytes None seen Sodium 133 L Potassium 3.1 L Chloride 97 L Carbon Dioxide 25 Anion Gap 11 BUN 66 H Creatinine 3.38 H Estim Creat Clear Calc 16 Estimated GFR 13 L Glucose 107 POC Capillary Glucose Lactic Acid 2.4 H Calcium 7.6 L Phosphorus 5.7 H Magnesium 1.8 Total Bilirubin 2.2 H AST 295 H ALT 242 H Alkaline Phosphatase 131 H Total Creatine Kinase < 20 L Troponin I 0.037 H* NT-Pro-B Natriuret Pep 4390 H Total Protein 5.0 L Albumin 2.3 L Procalcitonin 2.3 TSH 3.430 Urine Color Light red H Urine Appearance Turbid H Urine pH TNP Ur Specific [place] TNP Urine Protein TNP Urine Glucose (UA) TNP Urine Ketones TNP Ur Blood (Man) TNP Urine Nitrate TNP Urine Bilirubin TNP Urine Urobilinogen TNP Add Ur Microanalysis Reviewed Leukocyte Esterase Rfl TNP Urine RBC >100 H Urine WBC >100 H Ur Squamous Epith Cells Many H Urine Bacteria 4+ Urine Opiates Screen Positive A Urine Methadone Screen Negative Ur Barbiturates Screen Negative Ur Phencyclidine Scrn Negative Ur Amphetamine Screen Negative U Benzodiazepines Scrn Negative Urine Cocaine Screen Negative U Cannabinoids Screen Negative Influenza A (RT-PCR) Negative Influenza B (RT-PCR) Negative RSV (RT-PCR) Negative SARS-CoV-2 RNA (RT-PCR) Negative 08/06/24 08/06/24 08/06/24 19:11 22:05 22:16 WBC RBC Hgb Hct MCV MCH MCHC RDW Plt Count MPV Immature Gran % (Auto) Neut % (Auto) Lymph % (Auto) [place] % (Auto) Eos % (Auto) Baso % (Auto) Lymph # (Auto) [place] # (Auto) Eos # (Auto) Baso # (Auto) Abs Immat Gran (auto) Absolute Neuts (auto) Absolute Nucleated RBC Total Counted Neutrophils % (Manual) Band Neutrophils % Lymphocytes % (Manual) Monocytes % (Manual) Eosinophils % (Manual) Nucleated RBC % Abs Neuts (Manual) Abs Lymphs (Manual) Abs Monocytes (Manual) Absolute Eos (Manual) Platelet Estimate Large Platelets Schistocytes Sodium Potassium Chloride Carbon Dioxide Anion Gap BUN Creatinine Estim Creat Clear Calc Estimated GFR Glucose POC Capillary Glucose 101 Lactic Acid 1.5 Calcium Phosphorus Magnesium Total Bilirubin AST ALT Alkaline Phosphatase Total Creatine Kinase Troponin I 0.027 D NT-Pro-B Natriuret Pep Total Protein Albumin Procalcitonin TSH Urine Color Urine Appearance Urine pH Ur Specific [place] Urine Protein Urine Glucose (UA) Urine Ketones Ur Blood (Man) Urine Nitrate Urine Bilirubin Urine Urobilinogen Add Ur Microanalysis Leukocyte Esterase Rfl Urine RBC Urine WBC Ur Squamous Epith Cells Urine Bacteria Urine Opiates Screen Urine Methadone Screen Ur Barbiturates Screen Ur Phencyclidine Scrn Ur Amphetamine Screen U Benzodiazepines Scrn Urine Cocaine Screen U Cannabinoids Screen Influenza A (RT-PCR) Influenza B (RT-PCR) RSV (RT-PCR) SARS-CoV-2 RNA (RT-PCR) Impressions Chest X-Ray 08/06/24 18:43 IMPRESSION: Elevation of the right hemidiaphragm with adjacent compressive atelectasis. The remainder of the lungs are clear. Abdomen Ultrasound 08/06/24 20:18 IMPRESSION: Single lamellated stone within the gallbladder with a sonographic Berry sign. Chest/Abdomen/Pelvis CT 08/06/24 20:22 IMPRESSION: Findings within the chest suggesting pulmonary hypertension. Staghorn calculus within the right kidney with global enlargement of the right kidney and surrounding inflammatory change. Lamellated stone within the gallbladder without additional abnormality. Punctate foci of air within the bladder with surrounding inflammatory change suggesting cystitis. Fibroid uterus, enlarged for a patient of this age. Nonobstructing fat-containing umbilical hernia. 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 Assessment and Plan Assessment and plan (1) Septic shock: Code(s): A41.9 - Sepsis, unspecified organism; R65.21 - Severe sepsis with septic shock Status: Acute (2) UTI (urinary tract infection): Qualifiers: Hematuria presence: with hematuria Urinary tract infection type: acute cystitis Qualified Code(s): N30.01 - Acute cystitis with hematuria Code(s): N39.0 - Urinary tract infection, site not specified Status: Acute (3) Bradycardia, sinus: Code(s): R00.1 - Bradycardia, unspecified Status: Acute (4) Acute renal failure: Qualifiers: Acute renal failure type: unspecified Qualified Code(s): N17.9 - Acute kidney failure, unspecified Code(s): N17.9 - Acute kidney failure, unspecified Status: Acute (5) Elevated troponin: Code(s): R79.89 - Other specified abnormal findings of blood chemistry Status: Acute (6) Transaminitis: Code(s): R74.01 - Elevation of levels of liver transaminase levels Status: Acute (7) Staghorn calculus: Code(s): N20.0 - Calculus of kidney Status: Acute (8) Pulmonary hypertension: Code(s): I27.20 - Pulmonary hypertension, unspecified Status: Acute (9) Acute respiratory failure with hypoxia: Code(s): J96.01 - Acute respiratory failure with hypoxia Status: Acute (10) Hyponatremia: Code(s): E87.1 - Hypo-osmolality and hyponatremia Status: Acute (11) Hypokalemia: Code(s): E87.6 - Hypokalemia Status: Acute (12) Chronic anticoagulation: Code(s): Z79.01 - long term acute care registered nurse (current) use of anticoagulants Status: Acute (13) Hypoalbuminemia: Code(s): E88.09 - Other disorders of plasma-protein metabolism, not elsewhere classified Status: Acute (14) Generalized weakness: Code(s): R53.1 - Weakness Status: Acute (15) Positive urine drug screen: Code(s): R82.5 - Elevated urine levels of drugs, medicaments and biological substances Status: Acute Plan Patient presents with shock likely due to sepsis. Patient has CT evidence of staghorn calculus with associated perinephric stranding and thickening of the bladder. Patient also has evidence of gallstone with sonographic Berry's sign and Berry sign on exam at the time my evaluation. She has associated acute kidney injury, transaminitis and hyperbilirubinemia. Patient been placed on empiric antibiotic therapy with cefepime and vancomycin. Both General surgery and Urology will be consulted. Will obtain repeat CBC and CMP in a.m.. Transaminitis may be due to acute biliary disease verses component of hepatic dysfunction due to shock. The patient has been adequately fluid resuscitation and actually received a total of 4 L of isotonic fluids. The patient remained hypotensive and I subsequently placed the patient on dopamine. Dopamine was chosen due to the patient's significant bradycardia with heart rates between 35 and 40 in the ER. Patient has cardiac rhythm did stabilize with dopamine and potassium supplementation. Cardiogenic shock is less likely given patient's minimal troponin elevation and subsequent improvement with treatment of underlying conditions. Troponin elevation likely due to cardiac strain from the above factors. Bradycardia is also likely multifactorial due to continue home use of amiodarone and Coreg. Will hold the patient's home antihypertensive medications and diuretic therapy. The patient's condition has stabilized and she has been able to be weaned down from dopamine of 15 down to a dopamine of 6 at the end of my shift. Patient's care has been transition to the reimbursement manager. Will obtain echocardiogram to further evaluate cardiac structure and function. Will monitor strict I&O's. The patient is tolerating pure wick catheter well. Patient does have profound hypoalbuminemia likely due to chronic protein malnutrition patient would benefit from nutritional supplements. Will ask for dietitian evaluation.. There may be some component of proteinuria but difficult to assess given limited interpretation of the patient's UA. Given the hematuria noted on patient's UA will hold Eliquis. Patient does have acute hypoxic respiratory failure and CT evidence of pulmonary hypertension. Patient is morbidly obese and I suspect has chronic underlying untreated obstructive sleep apnea. Patient would benefit from [facility] into polysomnogram as outpatient. Will continue supplemental oxygen as needed and wean as tolerated. Patient does have opiates present on her urine drug screen but I cannot see where the patient has had opiates prescribed on the prescription drug monitoring program. Will need to clarify whether not the patient has may have been obtaining her opiate prescriptions. Patient will need PT and OT evaluation when more clinically stable. 2 hours spent in critical care activities. Due to a high probability of clinically significant, life threatening deterioration, the patient required my highest level of preparedness to intervene emergently and I personally spent this critical care time directly and personally managing the patient. This critical care time included obtaining a history; examining the patient; pulse oximetry; ordering and review of studies; arranging urgent treatment with development of a management plan; evaluation of patient's response to treatment; frequent reassessment; and discussions with other providers. It was exclusive of separately billable procedures and treating other patients and teaching time. Please see Assessment and Plan section and the rest of the note for further information on patient assessment and treatment. Quality VTE Prophylaxis VTE prophylaxis: pharmacologic ordered (Continue home Eliquis.) Hospitalist [facility] Advance Care Plan I have confirmed that the patient's Advanced Care Plan is present, code status is documented, or surrogate decision maker is listed in patient medical record.: Yes Medication Reconciliation I have utilized all available resources to obtain, update and review the patients current medications (includes all prescriptions, OTC, herbals, cannabis, and nutritional supplements).: Yes
[2024-08-06] MEDS: DOPamine 400 MG/D5W 250 ML 400 MG/250 ML BAG 11.5 MG IV CONT (23:59)
[2024-08-07] VITALS (30 sets, daily range): BP systolic 62–132; BP diastolic 35–95; PULSE 43–76; RESP 15–27; TEMP 36.6–37.1; O2SAT 93–100; BMI 46.3
--- NOTE | 2024-08-07 | ECHO_ITS ---
Patient Info Name: Lupis Juarez Age: 79 years : 1945 Gender: Female Ht: 62 in Wt: 253 lbs BSA: 2.31 m2 HR: 66 bpm BP: 107 / 65 mmHg Heart Rhythm: Indeterminant, Right Bundle Branch Block Technical Quality: Good Exam Date: 08/07/2024 9:04 AM Exam Location: Echo Lab Patient Status: Inpatient Admit Date: 08/06/2024 Staff Ordering Physician: Glenys Rose DO Restoration Officer: Litzy Pichardo RDCS Attending Provider: Glenys Rose DO Referring Physician: Rose APPIAH; Exam Type: CA echo dop color flow w con Study Info Indications - shock Complete two-dimensional, color flow and Doppler transthoracic echocardiogram is performed with contrast to opacify the left ventricle and to improve the deliniation of the left ventricle endocardial borders. Contrast/Agitated Saline Contrast/Ag. Saline: Definity Amount: 2.00 ml Administered By: Litzy Pichardo RDCS Existing IV Access: Yes IV Access Condition: patent with no signs of infiltration Summary 1. Left ventricular chamber dimension is normal. 2. There is mildly increased left ventricular wall thickness. 3. Left ventricular systolic function is normal, estimated at 60-65%. 4. Right ventricular systolic function is normal. 5. Left atrial chamber dimension is moderately enlarged. 6. There is mild mitral valve regurgitation. 7. There is mild tricuspid valve regurgitation. Left Ventricle Left ventricular chamber dimension is normal. Left ventricular systolic function is normal, estimated at 60-65%. There is mildly increased left ventricular wall thickness. Left ventricular septal wall motion is abnormal with septal motion related to bundle branch block. The left ventricular diastolic function is indeterminate. Right Ventricle Right ventricular chamber dimension is normal. Right ventricular systolic function is normal. Left Atria Left atrial chamber dimension is moderately enlarged. Right Atria Right atrial chamber dimension is normal. Atrial Septum Intact interatrial septum visualized by color flow imaging. Aortic Valve The aortic valve is probable trileaflet. There is no aortic valve stenosis. There is no aortic valve regurgitation. There is mild aortic valve calcification. Pulmonic Valve The pulmonic valve is not well visualized. Mitral Valve There is mild mitral valve regurgitation. The mitral valve annulus is mildly calcified. Tricuspid Valve There is mild tricuspid valve regurgitation. Pericardium/Pleural There is no pericardial effusion. Inferior Vena Cava Dilated inferior vena cava with <50% collapse upon inspiration consistent with elevated right atrial pressure, 15 mmHg. Aorta The aortic root size at the sinus of Valsalva is normal. Left Ventricular Outflow Tract Name Value Normal LVOT 2D LVOT Diameter 2.01 cm LVOT Doppler LVOT Peak Gradient 2 mmHg LVOT Mean Gradient 1 mmHg LVOT VTI 15.61 cm LVOT VTI/AV VTI Ratio 0.53 LVOT Stroke Volume 49.64 ml LVOT CO 2.62 l/min LVOT CI 1.13 L/min/m2 Mitral Valve Name Value Normal MV Doppler MV Decel [place] 872.23 cm/s2 MV PHT 0 s MV Area (PHT) 5.49 cm2 4.00-5.00 MV Diastolic Function MV E Peak Velocity 120.43 cm/s MV A Peak Velocity 0.92 cm/s MV E/A 130.92 MV Decel Time 0 s MV Annular TDI MV E/e' (Septal) 11.34 <=8.00 MV E/e' (Lateral) 10.71 <=8.00 MV E/e' (Average) 11.02 Tricuspid Valve Name Value Normal TV Regurgitation Doppler TR Peak Velocity 242.79 cm/s TR Peak Gradient 24 mmHg Estimated PAP/RSVP RA Pressure 15 mmHg <=5 PA Systolic Pressure 39 mmHg <36 RV Systolic Pressure 39 mmHg <36 Aorta Name Value Normal Ascending Aorta Ao Root Diameter (MM) 2.70 cm Ao Root Diam Index (MM) 1.17 cm/m2 Aortic Valve Name Value Normal AV Doppler AV Peak Velocity 146.58 cm/s AV Peak Gradient 9 mmHg AV Mean Gradient 5 mmHg AV VTI 29.49 cm AV Area (Cont Eq VTI) 1.68 cm2 >=3.00 AV Area (Cont Eq Morales) 1.69 cm2 AV Regurgitation 2D LVOT Area 3.18 cm2 Ventricles Name Value Normal LV Dimensions 2D/MM IVS Diastolic Thickness (2D) 1.07 cm 0.60-1.00 LVID Diastole (2D) 5.49 cm 3.80-5.20 LVIW Diastolic Thickness (2D) 0.99 cm 0.60-0.90 LVID Systole (2D) 4.08 cm 2.20-3.50 LVOT Diameter 2.01 cm LV Mass (2D Cubed) 221.30 g 67.00-162.00 LV Mass Index (2D Cubed) 0.01 g/cm2 0.00-0.01 Relative Wall Thickness (2D) 0.36 LV Fractional Shortening/Ejection Fraction 2D/MM LV Fractional Shortening (2D) 26 % 27-45 LV EF (2D Teicholz) 50 % 54-74 LV Diastolic Volume (4C MOD) 66.64 ml LV EF (4C MOD) 69 % LV Diastolic Volume (2C MOD) 50.60 ml LV EF (2C MOD) 62 % LV Diastolic Volume (BP MOD) 58.63 ml 46.00-106.00 LV Diastolic Volume Index (BP MOD) 0.03 l/m2 0.03-0.06 LV Systolic Volume (BP MOD) 20.11 ml 14.00-42.00 LV Systolic Volume Index (BP MOD) 0.01 l/m2 0.01-0.02 LV EF (BP MOD) 66 % 54-74 LV Diastolic Length (4C) 7.22 cm LV Systolic Length (4C) 6.20 cm LV Stroke Volume (4C MOD) 45.86 ml Atria Name Value Normal LA Dimensions LA Dimension (MM) 5.55 cm 2.70-3.80 LA Volume (4C A-L) 59.23 ml LA Volume (BP A-L) 60.45 ml RA Dimensions RA Area (4C) 11.05 cm2 <=18.00 Report Signatures
--- NOTE | 2024-08-07 00:04 | PC.NURSE ---
Numerous attempts at blood pressures via monitor and manually with hypotension reported. Hospitalist arrives while manual being obtained and explains risks/benefits of central catheter placement. VORB to start Dopamine peripherally. VORB for 1000 mL bolus of Normal Saline. Consent signed by patient for placement of central line.
[2024-08-07] MEDS: LORazepam INJ (*CRX) 2 MG/ML VIAL 0.5 MG IV PUSH (00:21)
--- NOTE | 2024-08-07 02:26 | WPDPROCEDUR ---
Procedures Central Line Placement Right IJ: Central Line Date: 08/07/24 Central Line Time: 00:45 Discussed w/ the patient/family/POA,the placement of a central venous catheter, including its clinical necessity/indication & associated potential risks, benifits and alternatives.: Yes The patient/family/POA understand(s) and acknowledge(s) the need to proceed with central venous catheter insertion as an important element of the patient's clinical management.: Yes Consent: I have discussed with the patient and/or surrogate, the non-emergent placement of a central venous catheter, including its clinical necessity/indication and associated potential risks and complications. The patient and/or surrogate understand(s) and acknowledge(s) the need to proceed with central venous catheter insertion as an important element of the patient's clinical management. Time Out Performed: Yes Patient Position: trendelenburg Patient placed on monitor/pulse ox: Yes Provider Prep: mask, sterile gown, sterile gloves, Max. sterile barrier precautions, cap and hand hygiene with conventional soap/water or alcohol based hand rub Central line prep: 2% Chlorhexidine scrub and sterile full body sheet applied Local anesthesia used: lidocaine 1% Amount of anesthesia used (ml): 7 Sterile US Technique with sterile gel/sterile probe covers: Yes Central line lumen inserted: triple Lithuanian: 7 Length (cm): 16 Depth of Insertion (cm): 16 Post Procedure: sutured in place, good blood return, all ports aspirated, flushed, capped, transparent dressing, hemostatic product, antimicrobial product, securement product and aseptic technique maintained throughout procedure Post procedure x-ray: tip of catheter in good position and no pneumothorax seen Patient tolerated procedure: well Additional comments: Initially attempted central line on the left due to the patient's preference for urinary her head to the right and ease of preparation. However the patient moved whenever I was attempting line placement and I did neck of the carotid. Pressure was held for 5 minutes. Three other attempts were made on the left side with had difficulty obtaining access subsequently transition to right IJ. line was placed after multiple attempts. Post procedure x-ray did not demonstrate any obvious pneumothorax. Radiologic review is pending. Central line is appropriate position and okay for use
--- NOTE | 2024-08-07 02:33 | ADMGEN ---
0215: This patient, Lupis Juarez, was admitted to Intensive Care Unit-7. Patient/family oriented to hospital policies and general routines including ID bracelet, bed and alarms, visiting hours, pain management, procedures, bathroom and other care routines, personal items, smoking policy, room service/diet, and visiting hours. Information on how to activate the Rapid Response Team has been discussed. Patient/Family are encouraged to report perceived risks to care and to ask questions if they do not understand what they are told or what they should do.
[2024-08-07] MEDS: DOPamine 400 MG/D5W 250 ML 400 MG/250 ML BAG 43.13 MG IV CONT ×2 (03:18→21:51)
--- NOTE | 2024-08-07 03:19 | PC.NURSE ---
0215: Patient arrived to the unit on 10mcg/kg/min of dopamine. RN contacted ordering provider to change order to the titratable drip.
[2024-08-07] MEDS: CENTRAL LINE FLUSH 10 ML IV PUSH ×3 (05:58→20:23)
[2024-08-07] MEDS: DOPamine 400 MG/D5W 250 ML 400 MG/250 ML BAG 25.88 MG IV CONT (06:00)
[2024-08-07 06:18] LABS: Hematocrit 39.4 % (37.0-47.0); Hemoglobin 14.1 g/dL (12.0-15.0); Mean Corpuscular HGB Conc 35.8 g/dl (32-36); Mean Corpuscular Hemoglobin 32.9 pg (26-34); Mean Corpuscular Volume 91.8 fl (80-100); Mean Platelet Volume 9.7 fl (7.4-10.4); Platelet Count Result 333 k/mm3 (150-375); Red Blood Count 4.29 M/mm3 (4.2-5.4); Red Cell Distribution Width 14.1 % (11.5-14.5); White Blood Count 23.3 K/mm3 (4.5-10.0)
[2024-08-07 06:30] LABS: Alanine Aminotransferase 276 U/L (6-35); Albumin Level 2.6 g/dL (3.5-5.1); Alkaline Phosphatase 148 U/L (38-126); Anion Gap 9 mmol/L (4-12); Aspartate Amino Transferase 308 U/L (14-36); Bilirubin,Total 2.2 mg/dL (0.2-1.3); Blood Urea Nitrogen 62 mg/dL (7-17); Calcium 7.2 mg/dL (8.4-10.2); Carbon Dioxide 22 mmol/L (22-30); Chloride 102 mmol/L (98-107); Estimated CRCL calculation 18 ml/min; Estimated Glomerular Filt Rate 16; Glucose 198 mg/dL (65-110); Potassium 3.3 mmol/L (3.4-5.0); Sodium 133 mmol/L (137-145)
[2024-08-07 07:01] LABS: Strep Group A RT-PCR NOT DETECTED (Negative)
[2024-08-07 07:03] LABS: Band Neutrophils Percent 5 % (0-6); Burr Cells 1+; Lymphocytes Absolute Manual 1.39 K/mm3 (1.1-4.5); Lymphocytes Percent Manual 6 % (18-44); Neutrophils Percent Manual 89 % (46-73); Platelet Estimate Adequate (Adequate); Total Cells Counted 100
[2024-08-07 07:04] LABS: Schistocytes None Seen
[2024-08-07 08:20] LABS: MRSA (PCR) NOT DETECTED (NOT DETECTE)
[2024-08-07] MEDS: PERFLUTREN LIPID MICROSPHERES 1.5 ML VIAL DILUTED TO 10 ML TOTAL VOLUME IV PUSH (09:00)
[2024-08-07 09:07] LABS: Magnesium 1.7 mg/dL (1.6-2.3); Phosphorus 5.5 mg/dL (2.5-4.5)
--- NOTE | 2024-08-07 09:29 | P.CONIN_ITS ---
Assessment and Plan Assessment and plan (1) Septic shock: Code(s): A41.9 - Sepsis, unspecified organism; R65.21 - Severe sepsis with septic shock Status: Acute Assessment and Plan: 08/06: Patient presented with generalized weakness, hypovolemia, hypotension, leukocytosis, was found to be in septic shock, likely related to UTI, cholecystitis, hypovolemia -patient was adequately fluid resuscitated -lactic acid has normalized -central line was inserted in the right IJ -continue dopamine for bradycardia hypotension, maintain MAP > 65 mmHg for adequate end organ perfusion -08/06: Blood cultures have been obtained -08/06: Urine cultures have been obtained -started on vancomycin and cefepime (08/06), will deescalate on narrow spectrum once cultures are resulted 08/06: RUQ ultrasound: Single lamellated stone within the gallbladder with a sonographic Berry sign. Surgery has been consulted for possible cholecystitis (2) UTI (urinary tract infection): Qualifiers: Hematuria presence: with hematuria Urinary tract infection type: acute cystitis Qualified Code(s): N30.01 - Acute cystitis with hematuria Code(s): N39.0 - Urinary tract infection, site not specified Status: Acute Assessment and Plan: UTI could be related to staghorn calculus in the right kidney or cystitis -antibiotics as above (3) Staghorn calculus: Code(s): N20.0 - Calculus of kidney Status: Acute Assessment and Plan: Urology has been consulted 08/06: CT chest abdomen and pelvis: Findings within the chest suggesting pulmonary hypertension.Staghorn calculus within the right kidney with global enlargement of the right kidney and surrounding inflammatory change. Lamellated stone within the gallbladder without additional abnormality. Punctate foci of air within the bladder with surrounding inflammatory change suggesting cystitis. Fibroid uterus, enlarged for a patient of this age. Nonobstructing fat- containing umbilical hernia. 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 (4) Bradycardia, sinus: Code(s): R00.1 - Bradycardia, unspecified Status: Acute Assessment and Plan: Patient sinus bradycardia could be related to hypovolemia, but continue to take her home medications amiodarone, Coreg -patient currently on dopamine for bradycardia and hypotension -cardiology has been consulted -continue to hold AV annmarie blocking agents for now (5) Acute renal failure: Qualifiers: Acute renal failure type: unspecified Qualified Code(s): N17.9 - Acute kidney failure, unspecified Code(s): N17.9 - Acute kidney failure, unspecified Status: Acute Assessment and Plan: Acute renal failure likely related to hypovolemia, decreased oral intake, says septic shock/infection -patient received 3 L IV fluid bolus in the ER -start maintenance IV fluids for 1000 mL x1 -creatinine trending down -continue to monitor urine output, renal function electrolytes -nephrology was consulted from ER (6) Electrolyte imbalance: Code(s): E87.8 - Other disorders of electrolyte and fluid balance, not elsewhere classified Status: Acute Assessment and Plan: Replace potassium (7) Atrial fibrillation: Qualifiers: Atrial fibrillation type: paroxysmal Qualified Code(s): I48.0 - Paroxysmal atrial fibrillation Code(s): I48.91 - Unspecified atrial fibrillation Status: Acute Assessment and Plan: Patient has a history of atrial fibrillation on Eliquis at home -she also takes amiodarone and Coreg at home -currently bradycardic and hypotensive -continue to hold home medications -hold Eliquis until surgery and Urology evaluates the patient Plan DVT prophylaxis: Eliquis currently on hold until patient is evaluated by surgery and Urology Stress ulcer prophylaxis: Protonix Nutrition: NPO for now Code Status: Do not resuscitate Critical Care Time Spent: 49 minutes Due to a high probability of clinically significant, life threatening deterioration, the patient required my highest level of preparedness to intervene emergently and I personally spent this critical care time directly and personally managing the patient. This critical care time included obtaining a history; examining the patient; pulse oximetry; ordering and review of studies; arranging urgent treatment with development of a management plan; evaluation of patient's response to treatment; frequent reassessment; and discussions with other providers. It was exclusive of separately billable procedures and treating other patients and teaching time. Please see Assessment and Plan section and the rest of the note for further information on patient assessment and treatment This dictation may have been done utilizing a voice recognition system. Attempts have been made to correct errors. However, there may be uncorrected grammatical, spelling, and recognitions errors present. Reinforcer Consult Note Consult date: 08/07/24 Reason for consult: UTI, cholecystitis, generalized weakness, septic shock, acute kidney injury, renal staghorn calculus, electrolyte imbalance HPI: Lupis Juarez is a 79 year old female with significant past medical history of paroxysmal AFib on amiodarone a and Eliquis at home, chronic kidney disease, CHF, obesity, essential hypertension, COPD, asthma presented the ED on 08/06/2024 with complains of generalized weakness along with decreased oral intake since around . Patient found the patient laying in urine and feces is soaked mattress, the patient lives with her of 40 years. She also complained of bilateral abdominal crampy pain and cramping, dysuria for 2 weeks. She also complained of increased thirst and dryness in mouth. In the ER she was found to be hypotensive, received 3 L IV fluid bolus, remained hypotensive and bradycardic, was started on dopamine. Pertinent labs were WBC of 22.3, hemoglobin 13.6, platelets of 290, 7% bandemia, sodium 133, potassium 3.1, creatinine 3.38, BUN 66, CO2 25, lactic acid 2.4, repeat lactic acid 1.5 after IV fluids, phosphorus of 5.7, magnesium 1.8, total bilirubin 2.2, AST ALT and alk-phos were elevated, creatinine kinase was less than 20, troponins was 0.037 and 0.027. Albumin of 2.3, procalcitonin of 2.3, TSH was within normal limits. UA seem to be positive for UTI, MRSA nares was negative. Urine drug screen was positive for opiates. Influenza, RSV and COVID were negative 08/06: CT chest abdomen and pelvis: Findings within the chest suggesting pulmonary hypertension.Staghorn calculus within the right kidney with global enlargement of the right kidney and surrounding inflammatory change. Lamellated stone within the gallbladder without additional abnormality. Punctate foci of air within the bladder with surrounding inflammatory change suggesting cystitis. Fibroid uterus, enlarged for a patient of this age. Nonobstructing fat- containing umbilical hernia. 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 08/06: RUQ ultrasound: Single lamellated stone within the gallbladder with a sonographic Berry sign. Patient was started on cefepime, vancomycin, dopamine infusion and transferred to the ICU for further management Patient seen and examined the ICU this morning, is awake, alert, oriented, she slow to respond but answers to questions and follows simple commands. Denies any chest pain, shortness of breath, nausea, vomiting. Complains of mild abdominal pain, unable to tell me exactly where. Patient has been afebrile since admission, 2 L nasal cannula with adequate O2 sats. Remains on dopamine at 6 mcg/kg/min, remains bradycardic in the 50s Review of Systems 2 Review of Systems: All systems reviewed & are unremarkable except as noted in HPI and below PMFSH Past Medical History Medical History Paroxysmal atrial fibrillation Chronic anticoagulation Chronic kidney disease CHF (congestive heart failure) Morbid obesity with BMI of 45.0-49.9, adult HTN (hypertension) COPD (chronic obstructive pulmonary disease) Asthma Family History Family History Mother Kidney failure Social History Social History Social History: She lives with her of 48 years. She has 2 adult children who do not live nearby. She is a lifelong nonsmoker and denies any history of drug use. 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 She used to drink a couple of alcoholic beverages a week but has not done so in many years. Code status: After multiple conversations and discussion with multiple staff members the patient has decided that she would like to be a DNR/DNI. She would be okay with pressors and noninvasive ventilator support if needed but would not want cardiac resuscitation or intubation. Surrogate decision maker: Smoking status: Never smoker Alcohol intake: never Substance use: never Do You Feel Safe in your Home?: Yes Lack of Transportation: No Lack of Food: Never True Current Housing: I Have Housing Concerned About Future Housing: No Difficulty Paying Gas/Electric Bills: No Difficulty Paying for Meds: No Currently Unemployed: No Education: Decline to Answer Difficulty w/ Childcare or Family Care: No Living arrangements: with family Additional living arrangements comments: Spiritual care concerns: No Meds Home Medications and Allergies Home Medications ?Medication ?Instructions ?Recorded ?Confirmed ?Type albuterol sulfate 90 mcg/actuation 1 inhalation inhalation BID 08/07/24 08/07/24 History aerosol inhaler amiodarone 200 mg tablet 200 mg PO DAILY 08/07/24 08/07/24 History apixaban 2.5 mg tablet (Eliquis) 2.5 mg PO BID 08/07/24 08/07/24 History atorvastatin 10 mg tablet 5 mg PO QPM 08/07/24 08/07/24 History bupropion HCl 150 mg tablet,12 hr 150 mg PO BID 08/07/24 08/07/24 History sustained-release carvedilol 3.125 mg tablet 3.125 mg PO BID 08/07/24 08/07/24 History fluoxetine 20 mg capsule 20 mg PO DAILY 08/07/24 08/07/24 History fluticasone propionate 50 1 spray intranasal DAILY 08/07/24 08/07/24 History mcg/actuation nasal spray,suspension (Flonase Allergy Relief) furosemide 40 mg tablet 40 mg PO DAILY 08/07/24 08/07/24 History loratadine 10 mg tablet 10 mg PO DAILY 08/07/24 08/07/24 History sacubitril 24 mg-valsartan 26 mg 1 tablet PO BID 08/07/24 08/07/24 History tablet (Entresto) sodium di- and 1 tablet PO QID 08/07/24 08/07/24 History monophosphate-potassium phos monobasic 250 mg tablet (Fan-Phos Neutral) spironolactone 25 mg tablet 25 mg PO DAILY 08/07/24 08/07/24 History topiramate 25 mg tablet 25 mg PO BID 08/07/24 08/07/24 History Allergies Allergy/AdvReac Type Severity Reaction Status Date / Time BLOOD PRESSURE PILL Allergy Unknown Uncoded 06/10/15 08:59 Vital Signs Vital Signs - 24 hr 08/06/24 17:08 08/06/24 17:47 08/06/24 18:15 Temperature 97.5 F L Pulse Rate 58 L 49 L 44 L Respiratory Rate 12 14 Blood Pressure 68/32 L 66/55 L Pulse Oximetry 96 97 Oxygen Delivery Room Air Oxygen Flow Rate 08/06/24 19:05 08/06/24 20:00 08/06/24 20:04 Temperature Pulse Rate 45 L 46 L 45 L Respiratory Rate 16 17 15 Blood Pressure 80/40 L 112/53 L 112/60 Pulse Oximetry 95 98 98 Oxygen Delivery Oxygen Flow Rate 08/06/24 20:31 08/06/24 20:45 08/06/24 21:00 Temperature Pulse Rate 41 L 43 L 42 L Respiratory Rate 19 13 22 H Blood Pressure 62/54 L 120/87 127/113 H Pulse Oximetry 96 96 96 Oxygen Delivery Oxygen Flow Rate 08/06/24 21:31 08/06/24 22:07 08/06/24 22:24 Temperature 97.3 F L Pulse Rate 56 L 43 L 43 L Respiratory Rate 16 15 21 H Blood Pressure 98/64 L Pulse Oximetry 97 93 93 Oxygen Delivery Oxygen Flow Rate 08/06/24 23:59 08/07/24 00:03 08/07/24 00:24 Temperature Pulse Rate 43 L 43 L 48 L Respiratory Rate 17 Blood Pressure 60/44 L 66/44 L 70/42 L Pulse Oximetry 93 Oxygen Delivery Oxygen Flow Rate 08/07/24 00:35 08/07/24 00:37 08/07/24 01:45 Temperature Pulse Rate 68 62 70 Respiratory Rate 22 H 17 Blood Pressure 92/46 L 80/52 L 98/44 L Pulse Oximetry 97 97 Oxygen Delivery Oxygen Flow Rate 08/07/24 02:15 08/07/24 02:25 08/07/24 02:30 Temperature 98.8 F Pulse Rate 76 67 Respiratory Rate 22 H 17 Blood Pressure 76/54 L 90/54 L 116/74 Pulse Oximetry 93 97 Oxygen Delivery Oxygen Flow Rate 08/07/24 03:18 08/07/24 04:00 08/07/24 04:00 Temperature Pulse Rate 71 70 Respiratory Rate Blood Pressure 76/54 L Pulse Oximetry 97 Oxygen Delivery Nasal Cannula Oxygen Flow Rate 2 08/07/24 04:00 08/07/24 04:00 08/07/24 05:00 Temperature 98 F Pulse Rate 70 70 66 Respiratory Rate 23 H Blood Pressure 121/49 L 121/49 L 107/65 Pulse Oximetry 96 Oxygen Delivery Oxygen Flow Rate 08/07/24 05:42 08/07/24 06:00 08/07/24 06:00 Temperature Pulse Rate 67 66 Respiratory Rate Blood Pressure 99/58 L 128/95 H Pulse Oximetry Oxygen Delivery Oxygen Flow Rate 08/07/24 06:00 08/07/24 06:00 Temperature Pulse Rate 64 64 Respiratory Rate Blood Pressure 128/95 H 128/95 H Pulse Oximetry Oxygen Delivery Oxygen Flow Rate Exam 2 Narrative: General: Pleasant female in no acute distress HEENT:? Pupils equal and reactive, sclera is clear, moist oral mucosa, some Neck:? Supple Respiratory:? Clear to auscultation bilaterally, decreased breath sounds at bases, adequate air entry, no wheeze Cardiac:? Sinus bradycardia Abdomen:? Soft, obese, tender to palpation around the umbilicus, normoactive bowel sounds Extremities:? Trace edema, palpable pedal pulses Neuro:? Patient is awake, alert, oriented to place, person, knew her date of and the year. She is slow to answer and hard of hearing but able to follow simple commands and answer questions Skin:? Warm and dry Psych:? Flat affect Results Labs 08/07/24 06:02 08/07/24 06:02 Labs: Short CBC 08/06/24 08/07/24 Range/Units 18:14 06:02 WBC 22.3 H 23.3 H (4.5-10.0) K/mm3 Hgb 13.6 14.1 (12.0-15.0) g/dL Hct 37.3 39.4 (37.0-47.0) % Plt Count 290 333 (150-375) k/mm3 BMP 08/06/24 08/07/24 18:14 06:02 Sodium 133 L 133 L Potassium 3.1 L 3.3 L Chloride 97 L 102 Carbon Dioxide 25 22 BUN 66 H 62 H Creatinine 3.38 H 2.88 H Glucose 107 198 H Calcium 7.6 L 7.2 L Cardiac Enzymes 08/06/24 08/06/24 Range/Units 18:14 22:05 Total Creatine Kinase < 20 L (30-135) U/L Troponin I 0.037 H* 0.027 D (0.000-0.034) ng/mL Liver Function 08/06/24 08/07/24 Range/Units 18:14 06:02 Total Bilirubin 2.2 H 2.2 H (0.2-1.3) mg/dL AST 295 H 308 H (14-36) U/L ALT 242 H 276 H (6-35) U/L Alkaline Phosphatase 131 H 148 H (38-126) U/L Albumin 2.3 L 2.6 L (3.5-5.1) g/dL Urine 08/06/24 Range/Units 17:53 Urine Color Light red H (Yellow) Urine Appearance Turbid H (Clear) Urine pH TNP Ur Specific [place] TNP Urine Protein TNP Urine Glucose (UA) TNP Quality VTE Prophylaxis VTE prophylaxis: mechanical ordered and pharmacologic ordered Hospitalist MIPS Advance Care Plan I have confirmed that the patient's Advanced Care Plan is present, code status is documented, or surrogate decision maker is listed in patient medical record.: Yes Medication Reconciliation I have utilized all available resources to obtain, update and review the patients current medications (includes all prescriptions, OTC, herbals, cannabis, and nutritional supplements).: Yes
--- NOTE | 2024-08-07 09:39 | IVDEFINITY ---
Prior to administration of IV Definity the patient was educated on the risks and benefits of the imaging enhancing agent including potential adverse side effects. The patient verbalized understanding. Allergies were verified. No exclusion criteria were identified and at least one of the following inclusion criteria were met: 1) physician request, 2) patient technically difficult to image (per the [place] [employer] guidelines of two or more segments not discernable within the apical view), or 3) questionable left ventricular function. ?
--- NOTE | 2024-08-07 09:51 | PCOTNOTE ---
Attempted to see patient for OT evaluation. Patient with US. She also continues to have active bedrest orders. Will continue to attempt.
[2024-08-07] MEDS: KCL 40 MEQ/WATER 100 ML 100 ML 25 ML IVPB (09:53)
[2024-08-07] MEDS: buPROPion HCL SR (12 HR) 150 MG TAB PO ×2 (09:54→20:22)
[2024-08-07] MEDS: FLUoxetine HCL 20 MG CAPSULE PO (09:54)
[2024-08-07] MEDS: CEFEPIME 1 GM/NS 50 ML 1 GM/50 ML BAG IVPB ×2 (09:54→20:22)
[2024-08-07] MEDS: TOPIRAMATE 25 MG TABLET PO ×2 (09:54→20:22)
--- NOTE | 2024-08-07 10:03 | P.CONNP_ITS ---
Assessment and Plan Assessment and plan (1) TOÑA (acute kidney injury): Code(s): N17.9 - Acute kidney failure, unspecified Status: Acute Assessment and Plan: * normal renal function at baseline (at least by labs done in Sep 2023 with a creatinine of 0.81mg/dl from [facility] records) * etiology multifactorial: * prerenal factors/volume depletion * poor oral intake * sepsis/infection * hemodynamic instability/shock * use of entresto + diuretics (lasix & spironolactone) prior to admission * s/p fluid resuscitation (3L bolus in ER and on maintenance currently) * improvement in creatinine noted (down to 2.88mg/dl this AM) * check urine studies, CPK, and renal ultrasound * CT of abd/pelvis with staghorn calculus within the right kidney with global enlargement of the right kidney and surrounding inflammatory change * follow trend of repeat labs and UOP (2) Septic shock: Code(s): A41.9 - Sepsis, unspecified organism; R65.21 - Severe sepsis with septic shock Status: Acute Assessment and Plan: * presumably due to UTI along with hypovolemia and possible cholecystitis * s/p aggressive IVF resuscitation * on dopamine to maintain MAP as well as for bradycardia * on antibiotics * follow culture data * follow trend of hemodynamics (3) UTI (urinary tract infection): Qualifiers: Hematuria presence: with hematuria Urinary tract infection type: acute cystitis Qualified Code(s): N30.01 - Acute cystitis with hematuria Code(s): N39.0 - Urinary tract infection, site not specified Status: Acute Assessment and Plan: * UA highly suggestive * complicated by staghorn calculus in the right kidney based on admission imaging * follow culture data * on antibiotics (4) Staghorn calculus: Code(s): N20.0 - Calculus of kidney Status: Acute Assessment and Plan: * as noted by admission CT scan: * staghorn calculus within the right kidney with global enlargement of the right kidney and surrounding inflammatory change * Urology consulted (5) Bradycardia, sinus: Code(s): R00.1 - Bradycardia, unspecified Status: Acute Assessment and Plan: * as noted on admission * remains on dopamine gtt * Cardiology consulted * follow-up on Echo * holding AV annmarie blocking agents at this time (6) Atrial fibrillation: Qualifiers: Atrial fibrillation type: paroxysmal Qualified Code(s): I48.0 - Paroxysmal atrial fibrillation Code(s): I48.91 - Unspecified atrial fibrillation Status: Acute Assessment and Plan: * known history * on carvedilol and amiodarone as an outpatient as well as Eliquis * these medications are on hold currently I will continue to follow the patient with you while he remains hospitalized and make further recommendations as deemed necessary. Thank you for allowing me to participate in the care of this patient. L History of Present Illness Reason for Consult Consult date: 08/07/24 Reason for consult: acute renal failure Chief Complaint Chief complaint: Generalized weakness, UTI, NSTEMI History of Present Illness Narrative: The patient is a 79-year-old female a past medical history as outlined below who presented to [facility] Emergency Room with complaints generalized weakness. Apparently, since , the patient has decreased oral intake in conjunction with her weakness. Other associated symptoms included bilateral abdominal pain that she described as a crampy sensation along with dysuria which also has a been apparently going for last 2 weeks. She also reports dry mouth and increased thirst despite attempts at drinking more fluid. Her has been attempting to get her to come to the emergency from an extended period time but the patient kept refusing until the day of admission. EMS was called and she was found to be laying in urine and feces were soaked in her mattress. She was subsequently transferred to the emergency room for further assessment. Workup and evaluation emergency room demonstrated the patient be quite hypotensive and bradycardic but afebrile. She was aggressively fluid resuscitated with 3 L fluid but she remained hypotensive. She subsequently had to be initiated on dopamine for improvement in her blood pressure as well as her bradycardia. Routine blood test demonstrated elevated white blood cell count of 22.3, hemoglobin 13.6, normal platelet count, left shift but 7% bandemia, and evidence of acute kidney injury/ acute renal failure with a BUN of 66, creatinine of 3.38, sodium 133, potassium 3.1, bicarb 25 and a lactic acid of 2.4 with improvement her lactic acid to 1.5 after the a for mention IV fluids. Her urinalysis was suggestive of urinary tract infection as well and viral studies for influenza, RSV, and COVID were negative. Subsequent imaging included a CT scan of her chest abdomen pelvis demonstrated findings suggestive of pulmonary hypertension, staghorn calculus within the right kidney with global enlargement of the right kidney and surrounding inflammatory change, gallbladder stones inflammatory changing suggestive of cystitis, and a fibroid uterus and a nonobstructing fat containing umbilical hernia along with degenerative joint disease in her lumbosacral spine. A subsequent right upper quadrant ultrasound demonstrated a single lab elated stone within the gallbladder with a sonographic Berry sign. After appropriate cultures were obtained, she was started on broad-spectrum antibiotics and continued on dopamine for stabilization of her blood pressure/ map and bradycardia and subsequently transferred to the ICU for further evaluation therapy. Since her admission to the ICU, she appears to be doing better and has no acute complaints other than mild abdominal pain. She remains on dopamine to maintain her blood pressure and bradycardia as well. Surgery has been consulted with regard to her gallstones and Urology has been consulted with regard to her nephrolithiasis and concern for possible obstruction in her right kidney. Renal consultation was requested due to her acute kidney injury/acute renal failure. From review of her records both here at [facility] and through the [facility] computer system, her renal function is well within normal limits at baseline. With interventions to date since her admission, her renal function has already improved and she appears to be making better urine output as well. Her acute kidney injury is likely multifactorial with regard to her hemodynamic instability, possible sepsis, possible obstruction, and outpatient medications in the form of Entresto and diuretic therapy. As far as the patient is aware, she has never had any issues or problems with her kidney function in the past and her outpatient laboratory findings with support this as. Currently, at the time my evaluation, he does not appear to be in any acute distress. Review of Systems 2 Review of Systems: As per HPI. [facility] Past Medical History Medical History Paroxysmal atrial fibrillation Chronic anticoagulation Chronic kidney disease CHF (congestive heart failure) Morbid obesity with BMI of 45.0-49.9, adult HTN (hypertension) COPD (chronic obstructive pulmonary disease) Asthma Family History Family History Mother Kidney failure Social History Social History Social History: She lives with her of 48 years. She has 2 adult children who do not live nearby. She is a lifelong nonsmoker and denies any history of drug use. 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 She used to drink a couple of alcoholic beverages a week but has not done so in many years. Code status: After multiple conversations and discussion with multiple staff members the patient has decided that she would like to be a DNR/DNI. She would be okay with pressors and noninvasive ventilator support if needed but would not want cardiac resuscitation or intubation. Surrogate decision maker: Smoking status: Never smoker Alcohol intake: never Substance use: never Do You Feel Safe in your Home?: Yes Lack of Transportation: No Lack of Food: Never True Current Housing: I Have Housing Concerned About Future Housing: No Difficulty Paying Gas/Electric Bills: No Difficulty Paying for Meds: No Currently Unemployed: No Education: Decline to Answer Difficulty w/ Childcare or Family Care: No Living arrangements: with family Additional living arrangements comments: Spiritual care concerns: No Meds Home Medications and Allergies Home Medications ?Medication ?Instructions ?Recorded ?Confirmed ?Type albuterol sulfate 90 mcg/actuation 1 inhalation inhalation BID 08/07/24 08/07/24 History aerosol inhaler amiodarone 200 mg tablet 200 mg PO DAILY 08/07/24 08/07/24 History apixaban 2.5 mg tablet (Eliquis) 2.5 mg PO BID 08/07/24 08/07/24 History atorvastatin 10 mg tablet 5 mg PO QPM 08/07/24 08/07/24 History bupropion HCl 150 mg tablet,12 hr 150 mg PO BID 08/07/24 08/07/24 History sustained-release carvedilol 3.125 mg tablet 3.125 mg PO BID 08/07/24 08/07/24 History fluoxetine 20 mg capsule 20 mg PO DAILY 08/07/24 08/07/24 History fluticasone propionate 50 1 spray intranasal DAILY 08/07/24 08/07/24 History mcg/actuation nasal spray,suspension (Flonase Allergy Relief) furosemide 40 mg tablet 40 mg PO DAILY 08/07/24 08/07/24 History loratadine 10 mg tablet 10 mg PO DAILY 08/07/24 08/07/24 History sacubitril 24 mg-valsartan 26 mg 1 tablet PO BID 08/07/24 08/07/24 History tablet (Entresto) sodium di- and 1 tablet PO QID 08/07/24 08/07/24 History monophosphate-potassium phos monobasic 250 mg tablet (Fan-Phos Neutral) spironolactone 25 mg tablet 25 mg PO DAILY 08/07/24 08/07/24 History topiramate 25 mg tablet 25 mg PO BID 08/07/24 08/07/24 History Allergies Allergy/AdvReac Type Severity Reaction Status Date / Time BLOOD PRESSURE PILL Allergy Unknown Uncoded 06/10/15 08:59 Vital Signs Vital Signs Temp Pulse Resp BP Pulse Ox O2 Del Method O2 Flow Rate 08/07/24 10:00 58 L 22 H 101/57 L 96 08/07/24 10:00 61 08/07/24 08:00 95 Nasal Cannula 2 08/07/24 08:00 98.7 F 58 L 20 104/65 95 08/07/24 08:00 59 L 08/07/24 06:00 64 128/95 H 08/07/24 06:00 64 128/95 H 08/07/24 06:00 128/95 H 08/07/24 06:00 66 08/07/24 05:42 67 99/58 L 08/07/24 05:00 66 107/65 08/07/24 04:00 70 121/49 L 08/07/24 04:00 98 F 70 23 H 121/49 L 96 08/07/24 04:00 70 08/07/24 04:00 97 Nasal Cannula 2 08/07/24 03:18 71 76/54 L 08/07/24 02:30 116/74 08/07/24 02:25 67 17 90/54 L 97 08/07/24 02:15 98.8 F 76 22 H 76/54 L 93 08/07/24 01:45 70 17 98/44 L 97 08/07/24 00:37 62 80/52 L 08/07/24 00:35 68 22 H 92/46 L 97 08/07/24 00:24 48 L 70/42 L 08/07/24 00:03 43 L 17 66/44 L 93 08/06/24 23:59 43 L 60/44 L 08/06/24 22:24 43 L 21 H 98/64 L 93 08/06/24 22:07 97.3 F L 43 L 15 93 08/06/24 21:31 56 L 16 97 08/06/24 21:00 42 L 22 H 127/113 H 96 08/06/24 20:45 43 L 13 120/87 96 08/06/24 20:31 41 L 19 62/54 L 96 08/06/24 20:04 45 L 15 112/60 98 08/06/24 20:00 46 L 17 112/53 L 98 08/06/24 19:05 45 L 16 80/40 L 95 08/06/24 18:15 44 L 08/06/24 17:47 49 L 14 66/55 L 97 08/06/24 17:08 97.5 F L 58 L 12 68/32 L 96 Room Air Exam 2 Narrative: GENERAL APPEARANCE: elderly but well developed well nourished female in no acute distress HEENT: normocephalic, atraumatic, normal conjunctiva and sclera, nares patient NECK: no lymphadenopathy, thyromegaly, or JVD MOUTH: normal lips, teeth, and gums CARDIOVASCULAR: bradycardic, normal S1 and S2, no rub RESPIRATORY: clear anteriorly ABDOMEN: soft, nontender, nondistended, positive bowel sounds present EXTREMITIES: no evidence of cyanosis, clubbing, trace edema NEUROLOGICAL: alert and oriented x 3; CN II - XII intact bilaterally; no focal deficits noted Results Lab Results 08/11/24 05:11 08/11/24 05:11 Lab results: Most recent lab results Calcium 7.2 mg/dL (8.4-10.2) L 08/07/24 06:02 Phosphorus 5.5 mg/dL (2.5-4.5) H 08/07/24 06:02 Magnesium 1.7 mg/dL (1.6-2.3) 08/07/24 06:02
--- NOTE | 2024-08-07 10:15 | P.CONGS_ITS ---
Assessment and Plan Assessment and plan (1) Cholelithiasis without cholecystitis: Code(s): K80.20 - Calculus of gallbladder without cholecystitis without obstruction Status: Acute Assessment and Plan: * I reviewed the imaging and assessed the patient. She has a large gallstone in her gallbladder but there are no surrounding inflammatory changes. The gallbladder does not appear to be a likely source of her septic shock. Liver enzymes are likely elevated secondary to the septic shock. The gallstone was an incidental finding and does not need any further workup at this time. Would recommend continuing to trend liver enzymes to ensure they are normalizing after adequate resuscitation and source control of the septic shock. No other surgical recommendations at this time. Will continue to follow as needed. (2) Transaminitis: Code(s): R74.01 - Elevation of levels of liver transaminase levels Status: Acute (3) Hernia, umbilical: Qualifiers: Obstruction and gangrene presence: without obstruction or gangrene Q ualified Code(s): K42.9 - Umbilical hernia without obstruction or gangrene Code(s): K42.9 - Umbilical hernia without obstruction or gangrene Status: Acute Assessment and Plan: * Asymptomatic umbilical hernia, does not require any further treatment at this time. (4) Septic shock: Code(s): A41.9 - Sepsis, unspecified organism; R65.21 - Severe sepsis with septic shock Status: Acute (5) UTI (urinary tract infection): Qualifiers: Hematuria presence: with hematuria Urinary tract infection type: acute cystitis Qualified Code(s): N30.01 - Acute cystitis with hematuria Code(s): N39.0 - Urinary tract infection, site not specified Status: Acute (6) Staghorn calculus: Code(s): N20.0 - Calculus of kidney Status: Acute (7) Pulmonary hypertension: Code(s): I27.20 - Pulmonary hypertension, unspecified Status: Acute (8) Morbid obesity with BMI of 45.0-49.9, adult: Code(s): E66.01 - Morbid (severe) obesity due to excess calories; Z68.42 - Body mass index [BMI] 45.0-49.9, adult Status: Acute Plan * Patient has multiple comorbidities which make her extremely high risk for any surgical intervention. Given her advanced age, morbid obesity, and significant deconditioning, I would likely recommend comfort measures rather than proceeding with surgery for gallbladder. Could consider palliative percutaneous cholecystostomy tube if patient did eventually developed cholecystitis. History of Present Illness Consult details Consult date: 08/07/24 Reason for consult: gallstones Requesting physician: Glenys Rose DO Narrative: This is a 79-year-old woman who was admitted to the ICU for sepsis who I am asked to see for cholelithiasis and elevated liver enzymes. She presented to the emergency department with weakness and hypotension. She reportedly had been experiencing worsening weakness over the past month and does have recent history of being in an acute rehab facility. She has not been to this facility in 10 years. The patient is alert and oriented but is a somewhat poor historian. She was complaining of some lower abdominal pain on admission. Workup in the emergency department showed evidence of sepsis with shock. She has hematuria and likely UTI with a staghorn calculus in the right kidney. She also had elevated liver enzymes and CT and ultrasound showed evidence of cholelithiasis without surrounding inflammatory changes. She has pulmonary hypertension as well. The patient has been admitted to the hospital for further treatment. Review of Systems 2 Review of Systems: All systems reviewed & are unremarkable except as noted in HPI and below Constitutional: Constitutional: Denies chills and Denies fever(s) Cardiovascular: Cardiovascular: Denies chest pain and Denies dyspnea Respiratory: Respiratory: Denies dyspnea Gastrointestinal: Gastrointestinal: Reports as per HPI [facility] Past Medical History Medical History (Updated 08/07/24 @ 10:38 by Jeff Smith DO) Paroxysmal atrial fibrillation Chronic anticoagulation Chronic kidney disease CHF (congestive heart failure) Morbid obesity with BMI of 45.0-49.9, adult HTN (hypertension) COPD (chronic obstructive pulmonary disease) Asthma Family History Family History (Updated 08/07/24 @ 02:42 by Yazan Cisneros RN) Mother Kidney failure Social History Social History (Updated 08/07/24 @ 09:06 by Glenys Rose DO) Social History: She lives with her of 48 years. She has 2 adult children who do not live nearby. She is a lifelong nonsmoker and denies any history of drug use. 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 She used to drink a couple of alcoholic beverages a week but has not done so in many years. Code status: After multiple conversations and discussion with multiple staff members the patient has decided that she would like to be a DNR/DNI. She would be okay with pressors and noninvasive ventilator support if needed but would not want cardiac resuscitation or intubation. Surrogate decision maker: Smoking status: Never smoker Alcohol intake: never Substance use: never Do You Feel Safe in your Home?: Yes Lack of Transportation: No Lack of Food: Never True Current Housing: I Have Housing Concerned About Future Housing: No Difficulty Paying Gas/Electric Bills: No Difficulty Paying for Meds: No Currently Unemployed: No Education: Decline to Answer Difficulty w/ Childcare or Family Care: No Living arrangements: with family Additional living arrangements comments: Spiritual care concerns: No Meds Home Medications and Allergies Home Medications ?Medication ?Instructions ?Recorded ?Confirmed ?Type albuterol sulfate 90 mcg/actuation 1 inhalation inhalation BID 08/07/24 08/07/24 History aerosol inhaler amiodarone 200 mg tablet 200 mg PO DAILY 08/07/24 08/07/24 History apixaban 2.5 mg tablet (Eliquis) 2.5 mg PO BID 08/07/24 08/07/24 History atorvastatin 10 mg tablet 5 mg PO QPM 08/07/24 08/07/24 History bupropion HCl 150 mg tablet,12 hr 150 mg PO BID 08/07/24 08/07/24 History sustained-release carvedilol 3.125 mg tablet 3.125 mg PO BID 08/07/24 08/07/24 History fluoxetine 20 mg capsule 20 mg PO DAILY 08/07/24 08/07/24 History fluticasone propionate 50 1 spray intranasal DAILY 08/07/24 08/07/24 History mcg/actuation nasal spray,suspension (Flonase Allergy Relief) furosemide 40 mg tablet 40 mg PO DAILY 08/07/24 08/07/24 History loratadine 10 mg tablet 10 mg PO DAILY 08/07/24 08/07/24 History sacubitril 24 mg-valsartan 26 mg 1 tablet PO BID 08/07/24 08/07/24 History tablet (Entresto) sodium di- and 1 tablet PO QID 08/07/24 08/07/24 History monophosphate-potassium phos monobasic 250 mg tablet (Fan-Phos Neutral) spironolactone 25 mg tablet 25 mg PO DAILY 08/07/24 08/07/24 History topiramate 25 mg tablet 25 mg PO BID 08/07/24 08/07/24 History Allergies Allergy/AdvReac Type Severity Reaction Status Date / Time BLOOD PRESSURE PILL Allergy Unknown Uncoded 06/10/15 08:59 Vital Signs Vital Signs - 24 hr 08/06/24 17:08 08/06/24 17:47 08/06/24 18:15 Temperature 97.5 F L Pulse Rate 58 L 49 L 44 L Respiratory Rate 12 14 Blood Pressure 68/32 L 66/55 L Pulse Oximetry 96 97 Oxygen Delivery Room Air Oxygen Flow Rate 08/06/24 19:05 08/06/24 20:00 08/06/24 20:04 Temperature Pulse Rate 45 L 46 L 45 L Respiratory Rate 16 17 15 Blood Pressure 80/40 L 112/53 L 112/60 Pulse Oximetry 95 98 98 Oxygen Delivery Oxygen Flow Rate 08/06/24 20:31 08/06/24 20:45 08/06/24 21:00 Temperature Pulse Rate 41 L 43 L 42 L Respiratory Rate 19 13 22 H Blood Pressure 62/54 L 120/87 127/113 H Pulse Oximetry 96 96 96 Oxygen Delivery Oxygen Flow Rate 08/06/24 21:31 08/06/24 22:07 08/06/24 22:24 Temperature 97.3 F L Pulse Rate 56 L 43 L 43 L Respiratory Rate 16 15 21 H Blood Pressure 98/64 L Pulse Oximetry 97 93 93 Oxygen Delivery Oxygen Flow Rate 08/06/24 23:59 08/07/24 00:03 08/07/24 00:24 Temperature Pulse Rate 43 L 43 L 48 L Respiratory Rate 17 Blood Pressure 60/44 L 66/44 L 70/42 L Pulse Oximetry 93 Oxygen Delivery Oxygen Flow Rate 08/07/24 00:35 08/07/24 00:37 08/07/24 01:45 Temperature Pulse Rate 68 62 70 Respiratory Rate 22 H 17 Blood Pressure 92/46 L 80/52 L 98/44 L Pulse Oximetry 97 97 Oxygen Delivery Oxygen Flow Rate 08/07/24 02:15 08/07/24 02:25 08/07/24 02:30 Temperature 98.8 F Pulse Rate 76 67 Respiratory Rate 22 H 17 Blood Pressure 76/54 L 90/54 L 116/74 Pulse Oximetry 93 97 Oxygen Delivery Oxygen Flow Rate 08/07/24 03:18 08/07/24 04:00 08/07/24 04:00 Temperature Pulse Rate 71 70 Respiratory Rate Blood Pressure 76/54 L Pulse Oximetry 97 Oxygen Delivery Nasal Cannula Oxygen Flow Rate 2 08/07/24 04:00 08/07/24 04:00 08/07/24 05:00 Temperature 98 F Pulse Rate 70 70 66 Respiratory Rate 23 H Blood Pressure 121/49 L 121/49 L 107/65 Pulse Oximetry 96 Oxygen Delivery Oxygen Flow Rate 08/07/24 05:42 08/07/24 06:00 08/07/24 06:00 Temperature Pulse Rate 67 66 Respiratory Rate Blood Pressure 99/58 L 128/95 H Pulse Oximetry Oxygen Delivery Oxygen Flow Rate 08/07/24 06:00 08/07/24 06:00 Temperature Pulse Rate 64 64 Respiratory Rate Blood Pressure 128/95 H 128/95 H Pulse Oximetry Oxygen Delivery Oxygen Flow Rate Exam 2 Const: General: cooperative, no acute distress and obese Nutritional Appearance: obese morbidly obese Orientation/consciousness: patient oriented x3 HENMT: Head: normal to inspection Ears: hearing grossly normal bilaterally Mouth: Yes Normal oral and palatal mucosa present Eyes: General: appearance normal, both eyes and all related structures S clera: sclerae normal EOM: EOMs intact bilaterally Neck: Neck: normal visual inspection and full ROM Resp: Effort & Inspection: normal respiratory effort and able to speak in complete sentences Cardio: Jugular venous distension: no JVD Rate: regular rate Rhythm: r egular rhythm Heart sounds: S1 normal heart sound present and S2 normal heart sound present GI: Inspection: Pannus present and obesity GI Palp: Yes Soft to palpation, No Tenderness to palpation present (GI), No Guarding due to palpation present (GI), Yes Hernia present umbilical 3-10 cm (soft, non-tender) and No Palpable mass present Percussion: Yes normal to percussion Auscultation: normal bowel sounds Back/Spine/Pelvis: Cervical Spine: normal cervical lordosis and cervical ROM normal Skin: General skin exam: normal color and no rashes or lesions noted Neuro: General: patient oriented x3, moves all extremities, no focal motor deficits and CN's II-XI intact bilaterally Speech: normal speech Extrem: General: normal to inspection, full ROM and no clubbing, cyanosis or edema Psych: Appearance: grossly normal Mental Status: mental status grossly normal Speech and movement: Normal speech and movement present Affect: n ormal affect Attitude: cooperative Thought process: Normal thought process present Results Labs 08/07/24 06:02 08/07/24 06:02 Labs: Abnormal lab results 08/06/24 08/06/24 08/07/24 Range/Units 17:53 18:14 06:02 WBC 22.3 H 23.3 H (4.5-10.0) K/mm3 RBC 4.09 L (4.2-5.4) M/mm3 MCHC 36.5 H (32-36) g/dl Neutrophils % (Manual) 89 H (46-73) % Band Neutrophils % 7 H (0-6) % Lymphocytes % (Manual) 5.0 L 6 L (18-44) % Eosinophils % (Manual) 10 H (0-4) % Abs Neuts (Manual) 16.94 H 21.90 H (1.7-7.2) K/mm3 Abs Monocytes (Manual) 2.00 H (0.1-0.90) K/mm3 Absolute Eos (Manual) 2.23 H (0.02-0.50) K/mm3 Sodium 133 L 133 L (137-145) mmol/L Potassium 3.1 L 3.3 L (3.4-5.0) mmol/L Chloride 97 L (98-107) mmol/L BUN 66 H 62 H (7-17) mg/dL Creatinine 3.38 H 2.88 H (0.7-1.0) mg/dL Estimated GFR 13 L 16 L (59 - ) Glucose 198 H (65-110) mg/dL Lactic Acid 2.4 H (0.7-2.0) mmol/L Calcium 7.6 L 7.2 L (8.4-10.2) mg/dL Phosphorus 5.7 H 5.5 H (2.5-4.5) mg/dL Total Bilirubin 2.2 H 2.2 H (0.2-1.3) mg/dL AST 295 H 308 H (14-36) U/L ALT 242 H 276 H (6-35) U/L Alkaline Phosphatase 131 H 148 H (38-126) U/L Total Creatine Kinase < 20 L (30-135) U/L Troponin I 0.037 H* (0.000-0.034) ng/mL NT-Pro-B Natriuret Pep 4390 H (19.9-100) pg/mL Total Protein 5.0 L 6.0 L (6.3-8.2) g/dL Albumin 2.3 L 2.6 L (3.5-5.1) g/dL Urine Color Light red H (Yellow) Urine Appearance Turbid H (Clear) Urine RBC >100 H (0-2) /hpf Urine WBC >100 H (0-3) /hpf Ur Squamous Epith Cells Many H (Few) /hpf Urine Opiates Screen Positive A (Negative) Diabetes panel 08/06/24 08/07/24 Range/Units 18:14 06:02 Sodium 133 L 133 L (137-145) mmol/L Potassium 3.1 L 3.3 L (3.4-5.0) mmol/L Chloride 97 L 102 (98-107) mmol/L Carbon Dioxide 25 22 (22-30) mmol/L BUN 66 H 62 H (7-17) mg/dL Creatinine 3.38 H 2.88 H (0.7-1.0) mg/dL Glucose 107 198 H (65-110) mg/dL Calcium 7.6 L 7.2 L (8.4-10.2) mg/dL AST 295 H 308 H (14-36) U/L ALT 242 H 276 H (6-35) U/L Alkaline Phosphatase 131 H 148 H (38-126) U/L Total Protein 5.0 L 6.0 L (6.3-8.2) g/dL Albumin 2.3 L 2.6 L (3.5-5.1) g/dL Thyroid panel 08/06/24 Range/Units 18:14 TSH 3.430 (0.465-4.680) uIU/mL Calcium panel 08/06/24 08/07/24 Range/Units 18:14 06:02 Calcium 7.6 L 7.2 L (8.4-10.2) mg/dL Phosphorus 5.7 H 5.5 H (2.5-4.5) mg/dL Albumin 2.3 L 2.6 L (3.5-5.1) g/dL Pituitary panel 08/06/24 08/07/24 Range/Units 18:14 06:02 Sodium 133 L 133 L (137-145) mmol/L Potassium 3.1 L 3.3 L (3.4-5.0) mmol/L Chloride 97 L 102 (98-107) mmol/L Carbon Dioxide 25 22 (22-30) mmol/L BUN 66 H 62 H (7-17) mg/dL Creatinine 3.38 H 2.88 H (0.7-1.0) mg/dL Glucose 107 198 H (65-110) mg/dL Calcium 7.6 L 7.2 L (8.4-10.2) mg/dL TSH 3.430 (0.465-4.680) uIU/mL Adrenal panel 08/06/24 08/07/24 Range/Units 18:14 06:02 Sodium 133 L 133 L (137-145) mmol/L Potassium 3.1 L 3.3 L (3.4-5.0) mmol/L Chloride 97 L 102 (98-107) mmol/L Carbon Dioxide 25 22 (22-30) mmol/L BUN 66 H 62 H (7-17) mg/dL Creatinine 3.38 H 2.88 H (0.7-1.0) mg/dL Glucose 107 198 H (65-110) mg/dL Calcium 7.6 L 7.2 L (8.4-10.2) mg/dL Total Bilirubin 2.2 H 2.2 H (0.2-1.3) mg/dL AST 295 H 308 H (14-36) U/L ALT 242 H 276 H (6-35) U/L Alkaline Phosphatase 131 H 148 H (38-126) U/L Total Protein 5.0 L 6.0 L (6.3-8.2) g/dL Albumin 2.3 L 2.6 L (3.5-5.1) g/dL All other labs normal. Imaging Additional studies: ITS Impressions Chest X-Ray 08/06/24 18:43 IMPRESSION: Elevation of the right hemidiaphragm with adjacent compressive atelectasis. The remainder of the lungs are clear. Abdomen Ultrasound 08/06/24 20:18 IMPRESSION: Single lamellated stone within the gallbladder with a sonographic Berry sign. Chest/Abdomen/Pelvis CT 08/06/24 20:22 IMPRESSION: Findings within the chest suggesting pulmonary hypertension. Staghorn calculus within the right kidney with global enlargement of the right kidney and surrounding inflammatory change. Lamellated stone within the gallbladder without additional abnormality. Punctate foci of air within the bladder with surrounding inflammatory change suggesting cystitis. Fibroid uterus, enlarged for a patient of this age. Nonobstructing fat-containing umbilical hernia. 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 Chest X-Ray 08/07/24 05:19 Impression: Right IJ line in place. Clear lungs.
[2024-08-07 10:29] LABS: INR 2.2; Partial Thromboplastin Time 34.2 Seconds (22.3-36.8); Prothrombin Time 24.4 Seconds (11.1-14.7)
--- NOTE | 2024-08-07 10:33 | P.CONUR_ITS ---
Assessment and Plan Assessment and plan (1) Staghorn calculus: Code(s): N20.0 - Calculus of kidney Status: Acute Assessment and Plan: - Staghorn, right renal pelvis identified on CT imaging (2) Acute renal failure: Qualifiers: Acute renal failure type: unspecified Qualified Code(s): N17.9 - Acute kidney failure, unspecified Code(s): N17.9 - Acute kidney failure, unspecified Status: Acute Assessment and Plan: - Renal function improving, Cr 2.8 from 3.4 (3) UTI (urinary tract infection): Qualifiers: Hematuria presence: with hematuria Urinary tract infection type: acute cystitis Qualified Code(s): N30.01 - Acute cystitis with hematuria Code(s): N39.0 - Urinary tract infection, site not specified Status: Acute Assessment and Plan: - Urine culture pending on IV vancomycin (4) Septic shock: Code(s): A41.9 - Sepsis, unspecified organism; R65.21 - Severe sepsis with septic shock Status: Acute Assessment and Plan: - Critical care team on board Plan - Keep NPO for urgent cystoscopy, right pyelogram, right ureteral stent placement in the OR with Dr. Toribio today. Patient aware and agreeable. ICU team notified. OK to hold off on indwelling Stafford catheter placement. - Agree with broad spectrum antibiotics for suspected UTI - Patient will require outpatient stone management when medically stable, likely with percutaneous nephrolithotomy at a tertiary care center given her medical comorbidities Urology Consult Note HPI Date Seen: 08/07/24 Requesting Physician: Glenys Rose DO Primary Care Provider: UNKNOWN,DOCTOR Consult Narrative Reason for consult: Right staghorn renal calculus, UTI Narrative: Lupis Juarez is a pleasant 79 year old female with a complicated medical history significant for CHF, atrial fibrillation on chronic anticoagulation admitted to the ICU overnight for management of severe sepsis requiring pressor support and renal failure from home after being found covered in feces/urine by EMS. CT AP WO contrast significant for staghorn calculus in the right renal pelvis without hydronephrosis. Cr 3.4 on admission. UA suspicious for UTI. Urine and blood cultures pending on broad spectrum antibiotics. NPO overnight. DNR code status noted. is surrogate decision maker. No family present at time of exam. Patient is alert and oriented to person, place, situation. 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 Denies prior history of renal stones and frequent UTI. Reports history of gallstones and poor appetite/weakness for several weeks. Physical exam significant for diffuse abdominal tenderness, worse on the right. Largely obese. Review of Systems 2 Constitutional: Constitutional: Reports fatigue, Reports lethargy and Reports weakness Eyes: Eyes: Reports no additional eye complaints ENT: Reports Normal hearing present Cardiovascular: Cardiovascular: Denies chest pain Respiratory: Respiratory: Reports no additional respiratory complaints and Denies dyspnea Gastrointestinal: Gastrointestinal: Reports abdominal pain, Reports diarrhea, Denies nausea and Denies vomiting Genitourinary: Genitourinary: Reports dysuria and Reports urinary incontinence Musculoskeletal: Musculoskeletal: Reports no additional musculoskeletal complaints Neurologic: Denies Abnormal speech present Psychiatric: Psychiatric: Reports no additional psychiatric complaints [facility] Past Medical History Medical History Paroxysmal atrial fibrillation Chronic anticoagulation Chronic kidney disease CHF (congestive heart failure) Morbid obesity with BMI of 45.0-49.9, adult HTN (hypertension) COPD (chronic obstructive pulmonary disease) Asthma Family History Family History Mother Kidney failure Social History Social History Social History: She lives with her of 48 years. She has 2 adult children who do not live nearby. She is a lifelong nonsmoker and denies any history of drug use. 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 She used to drink a couple of alcoholic beverages a week but has not done so in many years. Code status: After multiple conversations and discussion with multiple staff members the patient has decided that she would like to be a DNR/DNI. She would be okay with pressors and noninvasive ventilator support if needed but would not want cardiac resuscitation or intubation. Surrogate decision maker: Smoking status: Never smoker Alcohol intake: never Substance use: never Do You Feel Safe in your Home?: Yes Lack of Transportation: No Lack of Food: Never True Current Housing: I Have Housing Concerned About Future Housing: No Difficulty Paying Gas/Electric Bills: No Difficulty Paying for Meds: No Currently Unemployed: No Education: Decline to Answer Difficulty w/ Childcare or Family Care: No Living arrangements: with family Additional living arrangements comments: Spiritual care concerns: No Meds Home Medications and Allergies Home Medications ?Medication ?Instructions ?Recorded ?Confirmed ?Type albuterol sulfate 90 mcg/actuation 1 inhalation inhalation BID 08/07/24 08/07/24 History aerosol inhaler amiodarone 200 mg tablet 200 mg PO DAILY 08/07/24 08/07/24 History apixaban 2.5 mg tablet (Eliquis) 2.5 mg PO BID 08/07/24 08/07/24 History atorvastatin 10 mg tablet 5 mg PO QPM 08/07/24 08/07/24 History bupropion HCl 150 mg tablet,12 hr 150 mg PO BID 08/07/24 08/07/24 History sustained-release carvedilol 3.125 mg tablet 3.125 mg PO BID 08/07/24 08/07/24 History fluoxetine 20 mg capsule 20 mg PO DAILY 08/07/24 08/07/24 History fluticasone propionate 50 1 spray intranasal DAILY 08/07/24 08/07/24 History mcg/actuation nasal spray,suspension (Flonase Allergy Relief) furosemide 40 mg tablet 40 mg PO DAILY 08/07/24 08/07/24 History loratadine 10 mg tablet 10 mg PO DAILY 08/07/24 08/07/24 History sacubitril 24 mg-valsartan 26 mg 1 tablet PO BID 08/07/24 08/07/24 History tablet (Entresto) sodium di- and 1 tablet PO QID 08/07/24 08/07/24 History monophosphate-potassium phos monobasic 250 mg tablet (Fan-Phos Neutral) spironolactone 25 mg tablet 25 mg PO DAILY 08/07/24 08/07/24 History topiramate 25 mg tablet 25 mg PO BID 08/07/24 08/07/24 History Allergies Allergy/AdvReac Type Severity Reaction Status Date / Time BLOOD PRESSURE PILL Allergy Unknown Uncoded 06/10/15 08:59 Vital Signs Vital Signs - 24 hr 08/06/24 17:08 08/06/24 17:47 08/06/24 18:15 Temperature 97.5 F L Pulse Rate 58 L 49 L 44 L Respiratory Rate 12 14 Blood Pressure 68/32 L 66/55 L Pulse Oximetry 96 97 Oxygen Delivery Room Air Oxygen Flow Rate 08/06/24 19:05 08/06/24 20:00 08/06/24 20:04 Temperature Pulse Rate 45 L 46 L 45 L Respiratory Rate 16 17 15 Blood Pressure 80/40 L 112/53 L 112/60 Pulse Oximetry 95 98 98 Oxygen Delivery Oxygen Flow Rate 08/06/24 20:31 08/06/24 20:45 08/06/24 21:00 Temperature Pulse Rate 41 L 43 L 42 L Respiratory Rate 19 13 22 H Blood Pressure 62/54 L 120/87 127/113 H Pulse Oximetry 96 96 96 Oxygen Delivery Oxygen Flow Rate 08/06/24 21:31 08/06/24 22:07 08/06/24 22:24 Temperature 97.3 F L Pulse Rate 56 L 43 L 43 L Respiratory Rate 16 15 21 H Blood Pressure 98/64 L Pulse Oximetry 97 93 93 Oxygen Delivery Oxygen Flow Rate 08/06/24 23:59 08/07/24 00:03 08/07/24 00:24 Temperature Pulse Rate 43 L 43 L 48 L Respiratory Rate 17 Blood Pressure 60/44 L 66/44 L 70/42 L Pulse Oximetry 93 Oxygen Delivery Oxygen Flow Rate 08/07/24 00:35 08/07/24 00:37 08/07/24 01:45 Temperature Pulse Rate 68 62 70 Respiratory Rate 22 H 17 Blood Pressure 92/46 L 80/52 L 98/44 L Pulse Oximetry 97 97 Oxygen Delivery Oxygen Flow Rate 08/07/24 02:15 08/07/24 02:25 08/07/24 02:30 Temperature 98.8 F Pulse Rate 76 67 Respiratory Rate 22 H 17 Blood Pressure 76/54 L 90/54 L 116/74 Pulse Oximetry 93 97 Oxygen Delivery Oxygen Flow Rate 08/07/24 03:18 08/07/24 04:00 08/07/24 04:00 Temperature Pulse Rate 71 70 Respiratory Rate Blood Pressure 76/54 L Pulse Oximetry 97 Oxygen Delivery Nasal Cannula Oxygen Flow Rate 2 08/07/24 04:00 08/07/24 04:00 08/07/24 05:00 Temperature 98 F Pulse Rate 70 70 66 Respiratory Rate 23 H Blood Pressure 121/49 L 121/49 L 107/65 Pulse Oximetry 96 Oxygen Delivery Oxygen Flow Rate 08/07/24 05:42 08/07/24 06:00 08/07/24 06:00 Temperature Pulse Rate 67 66 Respiratory Rate Blood Pressure 99/58 L 128/95 H Pulse Oximetry Oxygen Delivery Oxygen Flow Rate 08/07/24 06:00 08/07/24 06:00 08/07/24 10:26 Temperature Pulse Rate 64 64 60 Respiratory Rate 23 H Blood Pressure 128/95 H 128/95 H Pulse Oximetry 95 Oxygen Delivery Nasal Cannula Oxygen Flow Rate 1.5 Exam 2 Const: General: comfortable HENMT: Face/Nose/Sinus: Normal nares present Mouth: Yes dry mucous membranes Eyes: General: appearance normal, both eyes and all related structures Neck: Other: Central line Resp: Effort & Inspection: normal respiratory effort GI: Other: Largely obese : Other: PureWick with blood-tinged urinary output Neuro: Speech: normal speech Psych: Speech and movement: Normal speech and movement present Affect: n ormal affect Results Labs 08/07/24 06:02 08/07/24 06:02 Labs: Short CBC 08/06/24 08/07/24 Range/Units 18:14 06:02 WBC 22.3 H 23.3 H (4.5-10.0) K/mm3 Hgb 13.6 14.1 (12.0-15.0) g/dL Hct 37.3 39.4 (37.0-47.0) % Plt Count 290 333 (150-375) k/mm3 BMP 08/06/24 08/07/24 18:14 06:02 Sodium 133 L 133 L Potassium 3.1 L 3.3 L Chloride 97 L 102 Carbon Dioxide 25 22 BUN 66 H 62 H Creatinine 3.38 H 2.88 H Glucose 107 198 H Calcium 7.6 L 7.2 L Cardiac Enzymes 08/06/24 08/06/24 Range/Units 18:14 22:05 Total Creatine Kinase < 20 L (30-135) U/L Troponin I 0.037 H* 0.027 D (0.000-0.034) ng/mL Liver Function 08/06/24 08/07/24 Range/Units 18:14 06:02 Total Bilirubin 2.2 H 2.2 H (0.2-1.3) mg/dL AST 295 H 308 H (14-36) U/L ALT 242 H 276 H (6-35) U/L Alkaline Phosphatase 131 H 148 H (38-126) U/L Albumin 2.3 L 2.6 L (3.5-5.1) g/dL Urine 08/06/24 Range/Units 17:53 Urine Color Light red H (Yellow) Urine Appearance Turbid H (Clear) Urine pH TNP Ur Specific [place] TNP Urine Protein TNP Urine Glucose (UA) TNP
--- NOTE | 2024-08-07 10:45 | WPDHPUPDATE1 ---
History and Physical Update Update Date/Time: 08/07/24 10:45 History and Physical has been reviewed, including an updated exam of the patient. There are NO changes in the patient's condition. Risks, benefits, and alternatives have been discussed and questions answered. Patient agrees to proceed with procedure. It is unclear if this staghorn stone is truly obstructed but it is encompassing the renal pelvis. It is also unclear whether stent will be able to be placed. There was no significant hydro at this time. If this is unsuccessful and patient does not improve she may need a nephrostomy tube. This stone will likely require treatment at a tertiary care center given her significant comorbid conditions and size of the stone.
--- NOTE | 2024-08-07 11:07 | WPDANESEPPF ---
Anes - Initial Pre Proc Eval Procedure: Operation Date: 08/07/24 11:30 Proposed Procedures p Cystoscopy, Right Retrograde Pyelogram, Right Stent Placement - Colin Toribio MD Date/Time: 08/07/24 11:07 Surgeon: Glenys Rose DO Pre Op Diagnosis: Generalized weakness, UTI, NSTEMI Patient Data Age: 79 Gender: F Height: 1.57 m Weight: 115 kg Last Vital Signs Temp 36.6 C 08/07/24 04:00 Pulse 65 08/07/24 10:35 Resp 15 08/07/24 10:35 BP 128/95 H 08/07/24 06:00 Pulse Ox 98 08/07/24 10:35 O2 Del Method Nasal Cannula 08/07/24 10:35 O2 Flow Rate 1 08/07/24 10:35 Allergies Allergy/AdvReac Type Severity Reaction Status Date / Time BLOOD PRESSURE PILL Allergy Unknown Uncoded 06/10/15 08:59 Home Medications ?Medication ?Instructions ?Recorded ?Confirmed ?Type albuterol sulfate 90 mcg/actuation 1 inhalation inhalation BID 08/07/24 08/07/24 History aerosol inhaler amiodarone 200 mg tablet 200 mg PO DAILY 08/07/24 08/07/24 History apixaban 2.5 mg tablet (Eliquis) 2.5 mg PO BID 08/07/24 08/07/24 History atorvastatin 10 mg tablet 5 mg PO QPM 08/07/24 08/07/24 History bupropion HCl 150 mg tablet,12 hr 150 mg PO BID 08/07/24 08/07/24 History sustained-release carvedilol 3.125 mg tablet 3.125 mg PO BID 08/07/24 08/07/24 History fluoxetine 20 mg capsule 20 mg PO DAILY 08/07/24 08/07/24 History fluticasone propionate 50 1 spray intranasal DAILY 08/07/24 08/07/24 History mcg/actuation nasal spray,suspension (Flonase Allergy Relief) furosemide 40 mg tablet 40 mg PO DAILY 08/07/24 08/07/24 History loratadine 10 mg tablet 10 mg PO DAILY 08/07/24 08/07/24 History sacubitril 24 mg-valsartan 26 mg 1 tablet PO BID 08/07/24 08/07/24 History tablet (Entresto) sodium di- and 1 tablet PO QID 08/07/24 08/07/24 History monophosphate-potassium phos monobasic 250 mg tablet (Fan-Phos Neutral) spironolactone 25 mg tablet 25 mg PO DAILY 08/07/24 08/07/24 History topiramate 25 mg tablet 25 mg PO BID 08/07/24 08/07/24 History Laboratory Tests 08/06/24 08/06/24 08/06/24 17:53 17:58 18:13 WBC RBC Hgb Hct MCV MCH MCHC RDW Plt Count MPV Immature Gran % (Auto) Neut % (Auto) Lymph % (Auto) [place] % (Auto) Eos % (Auto) Baso % (Auto) Lymph # (Auto) [place] # (Auto) Eos # (Auto) Baso # (Auto) Abs Immat Gran (auto) Absolute Neuts (auto) Absolute Nucleated RBC Total Counted Neutrophils % (Manual) Band Neutrophils % Lymphocytes % (Manual) Monocytes % (Manual) Eosinophils % (Manual) Nucleated RBC % Abs Neuts (Manual) Abs Lymphs (Manual) Abs Monocytes (Manual) Absolute Eos (Manual) Platelet Estimate Large Platelets [place] Cells Schistocytes PT INR APTT Sodium Potassium Chloride Carbon Dioxide Anion Gap BUN Creatinine Estim Creat Clear Calc Estimated GFR Glucose POC Capillary Glucose Lactic Acid Calcium Phosphorus Magnesium Total Bilirubin AST ALT Alkaline Phosphatase Total Creatine Kinase Troponin I NT-Pro-B Natriuret Pep Total Protein Albumin Procalcitonin TSH Urine Color Light red H (Yellow) Urine Appearance Turbid H (Clear) Urine pH TNP Ur Specific [place] TNP Urine Protein TNP Urine Glucose (UA) TNP Urine Ketones TNP Ur Blood (Man) TNP Urine Nitrate TNP Urine Bilirubin TNP Urine Urobilinogen TNP Add Ur Microanalysis Reviewed Leukocyte Esterase Rfl TNP Urine RBC >100 H /hpf (0-2) Urine WBC >100 H /hpf (0-3) Ur Squamous Epith Cells Many H /hpf (Few) Urine Bacteria 4+ /hpf Nasal MRSA (PCR) Urine Opiates Screen Positive A (Negative) Urine Methadone Screen Negative (Negative) Ur Barbiturates Screen Negative (Negative) Ur Phencyclidine Scrn Negative (Negative) Ur Amphetamine Screen Negative (Negative) U Benzodiazepines Scrn Negative (Negative) Urine Cocaine Screen Negative (Negative) U Cannabinoids Screen Negative (Negative) C. difficile (PCR) Pending Influenza A (RT-PCR) Negative (Negative) Influenza B (RT-PCR) Negative (Negative) RSV (RT-PCR) Negative (Negative) SARS-CoV-2 RNA (RT-PCR) Negative (Negative) Group A Strep (PCR) 08/06/24 08/06/24 08/06/24 18:14 19:11 22:05 WBC 22.3 H K/mm3 (4.5-10.0) RBC 4.09 L M/mm3 (4.2-5.4) Hgb 13.6 g/dL (12.0-15.0) Hct 37.3 % (37.0-47.0) MCV 91.2 fl (80-100) MCH 33.3 pg (26-34) MCHC 36.5 H g/dl (32-36) RDW 13.5 % (11.5-14.5) Plt Count 290 k/mm3 (150-375) MPV 9.9 fl (7.4-10.4) Immature Gran % (Auto) Not Reportable Neut % (Auto) Not Reportable Lymph % (Auto) Not Reportable [place] % (Auto) Not Reportable Eos % (Auto) Not Reportable Baso % (Auto) Not Reportable Lymph # (Auto) Not Reportable [place] # (Auto) Not Reportable Eos # (Auto) Not Reportable Baso # (Auto) Not Reportable Abs Immat Gran (auto) Not Reportable Absolute Neuts (auto) Not Reportable Absolute Nucleated RBC Not Reportable Total Counted 100 Neutrophils % (Manual) 69 % (46-73) Band Neutrophils % 7 H % (0-6) Lymphocytes % (Manual) 5.0 L % (18-44) Monocytes % (Manual) 9 % (3-9) Eosinophils % (Manual) 10 H % (0-4) Nucleated RBC % Not Reportable Abs Neuts (Manual) 16.94 H K/mm3 (1.7-7.2) Abs Lymphs (Manual) 1.11 K/mm3 (1.1-4.5) Abs Monocytes (Manual) 2.00 H K/mm3 (0.1-0.90) Absolute Eos (Manual) 2.23 H K/mm3 (0.02-0.50) Platelet Estimate Adequate (Adequate) Large Platelets Present [place] Cells Schistocytes None seen PT INR APTT Sodium 133 L mmol/L (137-145) Potassium 3.1 L mmol/L (3.4-5.0) Chloride 97 L mmol/L (98-107) Carbon Dioxide 25 mmol/L (22-30) Anion Gap 11 mmol/L (4-12) BUN 66 H mg/dL (7-17) Creatinine 3.38 H mg/dL (0.7-1.0) Estim Creat Clear Calc 16 ml/min Estimated GFR 13 L (59 - ) Glucose 107 mg/dL (65-110) POC Capillary Glucose 101 mg/dl (65-105) Lactic Acid 2.4 H mmol/L (0.7-2.0) Calcium 7.6 L mg/dL (8.4-10.2) Phosphorus 5.7 H mg/dL (2.5-4.5) Magnesium 1.8 mg/dL (1.6-2.3) Total Bilirubin 2.2 H mg/dL (0.2-1.3) AST 295 H U/L (14-36) ALT 242 H U/L (6-35) Alkaline Phosphatase 131 H U/L (38-126) Total Creatine Kinase < 20 L U/L (30-135) Troponin I 0.037 H* ng/mL 0.027 D ng/mL (0.000-0.034) (0.000-0.034) NT-Pro-B Natriuret Pep 4390 H pg/mL (19.9-100) Total Protein 5.0 L g/dL (6.3-8.2) Albumin 2.3 L g/dL (3.5-5.1) Procalcitonin 2.3 ng/mL TSH 3.430 uIU/mL (0.465-4.680) Urine Color Urine Appearance Urine pH Ur Specific [place] Urine Protein Urine Glucose (UA) Urine Ketones Ur Blood (Man) Urine Nitrate Urine Bilirubin Urine Urobilinogen Add Ur Microanalysis Leukocyte Esterase Rfl Urine RBC Urine WBC Ur Squamous Epith Cells Urine Bacteria Nasal MRSA (PCR) Urine Opiates Screen Urine Methadone Screen Ur Barbiturates Screen Ur Phencyclidine Scrn Ur Amphetamine Screen U Benzodiazepines Scrn Urine Cocaine Screen U Cannabinoids Screen C. difficile (PCR) Influenza A (RT-PCR) Influenza B (RT-PCR) RSV (RT-PCR) SARS-CoV-2 RNA (RT-PCR) Group A Strep (PCR) 08/06/24 08/07/24 08/07/24 22:16 06:02 06:10 WBC 23.3 H K/mm3 (4.5-10.0) RBC 4.29 M/mm3 (4.2-5.4) Hgb 14.1 g/dL (12.0-15.0) Hct 39.4 % (37.0-47.0) MCV 91.8 fl (80-100) MCH 32.9 pg (26-34) MCHC 35.8 g/dl (32-36) RDW 14.1 % (11.5-14.5) Plt Count 333 k/mm3 (150-375) MPV 9.7 fl (7.4-10.4) Immature Gran % (Auto) Not Reportable Neut % (Auto) Not Reportable Lymph % (Auto) Not Reportable [place] % (Auto) Not Reportable Eos % (Auto) Not Reportable Baso % (Auto) Not Reportable Lymph # (Auto) Not Reportable [place] # (Auto) Not Reportable Eos # (Auto) Not Reportable Baso # (Auto) Not Reportable Abs Immat Gran (auto) Not Reportable Absolute Neuts (auto) Not Reportable Absolute Nucleated RBC Not Reportable Total Counted 100 Neutrophils % (Manual) 89 H % (46-73) Band Neutrophils % 5 % (0-6) Lymphocytes % (Manual) 6 L % (18-44) Monocytes % (Manual) Eosinophils % (Manual) Nucleated RBC % Not Reportable Abs Neuts (Manual) 21.90 H K/mm3 (1.7-7.2) Abs Lymphs (Manual) 1.39 K/mm3 (1.1-4.5) Abs Monocytes (Manual) Absolute Eos (Manual) Platelet Estimate Adequate (Adequate) Large Platelets [place] Cells 1+ Schistocytes None seen PT INR APTT Sodium 133 L mmol/L (137-145) Potassium 3.3 L mmol/L (3.4-5.0) Chloride 102 mmol/L (98-107) Carbon Dioxide 22 mmol/L (22-30) Anion Gap 9 mmol/L (4-12) BUN 62 H mg/dL (7-17) Creatinine 2.88 H mg/dL (0.7-1.0) Estim Creat Clear Calc 18 ml/min Estimated GFR 16 L (59 - ) Glucose 198 H mg/dL (65-110) POC Capillary Glucose Lactic Acid 1.5 mmol/L (0.7-2.0) Calcium 7.2 L mg/dL (8.4-10.2) Phosphorus 5.5 H mg/dL (2.5-4.5) Magnesium 1.7 mg/dL (1.6-2.3) Total Bilirubin 2.2 H mg/dL (0.2-1.3) AST 308 H U/L (14-36) ALT 276 H U/L (6-35) Alkaline Phosphatase 148 H U/L (38-126) Total Creatine Kinase Troponin I NT-Pro-B Natriuret Pep Total Protein 6.0 L g/dL (6.3-8.2) Albumin 2.6 L g/dL (3.5-5.1) Procalcitonin TSH Urine Color Urine Appearance Urine pH Ur Specific [place] Urine Protein Urine Glucose (UA) Urine Ketones Ur Blood (Man) Urine Nitrate Urine Bilirubin Urine Urobilinogen Add Ur Microanalysis Leukocyte Esterase Rfl Urine RBC Urine WBC Ur Squamous Epith Cells Urine Bacteria Nasal MRSA (PCR) Urine Opiates Screen Urine Methadone Screen Ur Barbiturates Screen Ur Phencyclidine Scrn Ur Amphetamine Screen U Benzodiazepines Scrn Urine Cocaine Screen U Cannabinoids Screen C. difficile (PCR) Influenza A (RT-PCR) Influenza B (RT-PCR) RSV (RT-PCR) SARS-CoV-2 RNA (RT-PCR) Group A Strep (PCR) Not detected (Negative) 08/07/24 08/07/24 06:45 09:59 WBC RBC Hgb Hct MCV MCH MCHC RDW Plt Count MPV Immature Gran % (Auto) Neut % (Auto) Lymph % (Auto) [place] % (Auto) Eos % (Auto) Baso % (Auto) Lymph # (Auto) [place] # (Auto) Eos # (Auto) Baso # (Auto) Abs Immat Gran (auto) Absolute Neuts (auto) Absolute Nucleated RBC Total Counted Neutrophils % (Manual) Band Neutrophils % Lymphocytes % (Manual) Monocytes % (Manual) Eosinophils % (Manual) Nucleated RBC % Abs Neuts (Manual) Abs Lymphs (Manual) Abs Monocytes (Manual) Absolute Eos (Manual) Platelet Estimate Large Platelets [place] Cells Schistocytes PT 24.4 H Seconds (11.1-14.7) INR 2.2 APTT 34.2 Seconds (22.3-36.8) Sodium Potassium Chloride Carbon Dioxide Anion Gap BUN Creatinine Estim Creat Clear Calc Estimated GFR Glucose POC Capillary Glucose Lactic Acid Calcium Phosphorus Magnesium Total Bilirubin AST ALT Alkaline Phosphatase Total Creatine Kinase Troponin I NT-Pro-B Natriuret Pep Total Protein Albumin Procalcitonin TSH Urine Color Urine Appearance Urine pH Ur Specific [place] Urine Protein Urine Glucose (UA) Urine Ketones Ur Blood (Man) Urine Nitrate Urine Bilirubin Urine Urobilinogen Add Ur Microanalysis Leukocyte Esterase Rfl Urine RBC Urine WBC Ur Squamous Epith Cells Urine Bacteria Nasal MRSA (PCR) Not detected (NOT DETECTE) Urine Opiates Screen Urine Methadone Screen Ur Barbiturates Screen Ur Phencyclidine Scrn Ur Amphetamine Screen U Benzodiazepines Scrn Urine Cocaine Screen U Cannabinoids Screen C. difficile (PCR) Influenza A (RT-PCR) Influenza B (RT-PCR) RSV (RT-PCR) SARS-CoV-2 RNA (RT-PCR) Group A Strep (PCR) Patient hx anesthesia problems: none Family hx anesthesia problems: none Results Review: All pre-operative results and documents have been reviewed as part of the pre-operative evaluation. [facility] Past Medical History Medical History Paroxysmal atrial fibrillation Chronic anticoagulation Chronic kidney disease CHF (congestive heart failure) Morbid obesity with BMI of 45.0-49.9, adult HTN (hypertension) COPD (chronic obstructive pulmonary disease) Asthma Family History Family History Mother Kidney failure Social History Social History Social History: She lives with her of 48 years. She has 2 adult children who do not live nearby. She is a lifelong nonsmoker and denies any history of drug use. 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 She used to drink a couple of alcoholic beverages a week but has not done so in many years. Code status: After multiple conversations and discussion with multiple staff members the patient has decided that she would like to be a DNR/DNI. She would be okay with pressors and noninvasive ventilator support if needed but would not want cardiac resuscitation or intubation. Surrogate decision maker: Smoking status: Never smoker Alcohol intake: never Substance use: never Do You Feel Safe in your Home?: Yes Lack of Transportation: No Lack of Food: Never True Current Housing: I Have Housing Concerned About Future Housing: No Difficulty Paying Gas/Electric Bills: No Difficulty Paying for Meds: No Currently Unemployed: No Education: Decline to Answer Difficulty w/ Childcare or Family Care: No Living arrangements: with family Additional living arrangements comments: Spiritual care concerns: No Anes - Eval Final PreProcedure Day of Procedure 08/07/24 11:07 Patient weight: morbidly obese Heart: regular rate and rhythm ASA classification: IV Emergent: yes Anesthetic plan: proceed Anesthesia type and monitoring: general GIVS and standard monitoring Results Review: All pre-operative results and documents have been reviewed as part of the pre-operative evaluation. Informed Consent: The patient's anesthetic plan and its attendant risks and benefits were discussed with the patient/family/POA. Questions were solicited and answers provided to the satisfaction of the patient/family/POA.
--- NOTE | 2024-08-07 11:38 | PC.NURSE ---
To OR per bed, IV Central right IJ. Report given to Ruth. off floor @ [id number]
[2024-08-07] MEDS: LIDOCAINE 2% GEL UROJET 10 ML PKG MUCOUS MEM (11:59)
--- NOTE | 2024-08-07 12:07 | W.PM.PROC2 ---
Procedure Note - Detailed Date of Procedure 08/07/24 Pre-op Diagnosis Generalized weakness, UTI, NSTEMI, right staghorn calculus with sepsis Post-op Diagnosis Same Procedure Performed Cystoscopy, right retrograde, right ureteral stent placement 6 [place] contour, Stafford catheter placement Surgeon Colin Toribio MD Anesthesia General Description of Procedure Patient was taken to the operative suite correctly identified. Once anesthesia was obtained she was placed in the dorsal lithotomy position as best she could be position. She was prepped and draped usual sterile fashion. Nineteen [place] scope was inserted the bladder. There were no tumors noted. She has a very prominent trigone is difficult to visualize the orifices. No tumors were noted. I was able to manipulate a ureteral catheter into the right ureteral orifice and pyelogram was performed contrast made its way up into the renal pelvis. There was not any apparent significant hydronephrosis at this time. Sensor wire was inserted. A 6 [place] contour stent was then placed with the proximal end coiled in the renal pelvis or upper pole. Distal end was coiled in the bladder. Sixteen [place] Stafford was placed 10 cc in the balloon. Will see how she does clinically. The staghorn stone will need to be addressed at a tertiary care center given her significant comorbidities. This completes dictation. Please send a copy of op note to my office. Drains Yes Packing No Pathology None sent Complications No immediate complications Condition Stable Disposition PACU
--- NOTE | 2024-08-07 12:22 | PC.NURSE ---
Returned from OR per bed. Report received from Barb @ [id number]
[2024-08-07] MEDS: PANTOPRAZOLE SODIUM IV 40 MG VIAL IV PUSH (12:28)
[2024-08-07] MEDS: LACTATED RINGERS 1,000 ML 75 ML IV CONT (12:28)
[2024-08-07 12:58] LABS: Glucose Point of Care 122 mg/dl (65-105)
--- NOTE | 2024-08-07 14:12 | P.CONCA_ITS ---
Assessment and Plan Assessment and plan (1) Bradyarrhythmia: Code(s): I49.8 - Other specified cardiac arrhythmias Status: Acute Assessment and Plan: Initial EKG shows possible two-to-one AV block. Subsequent EKG difficult to interpret because of the tracing quality. Currently on telemetry she appears to have intermittent 2-1 block and junctional rhythm with nonconducted PACs. Blood pressure currently stable. * Hold amiodarone, Coreg * Continue dopamine drip at current rate for now. Will allow beta-naomi and amiodarone to wash out then attempt to wean dopamine. * If her heart rate/rhythm remains slow/irregular with a sufficient washout period for amiodarone and Coreg, she may require implantation of permanent pacemaker. She would require transfer to a tertiary care center for pacemaker placement. * TSH is normal * Potassium 3.3 and has been repleted. (2) Elevated troponin: Code(s): R79.89 - Other specified abnormal findings of blood chemistry Status: Acute Assessment and Plan: Very mildly elevated and trended down. She denies any chest pain. Mild troponin leak does not represent ACS in this situation; probably secondary to hypotension, acute kidney injury. (3) Chronic anticoagulation: Code(s): Z79.01 - detention (current) use of anticoagulants Status: Acute Assessment and Plan: Continue for cardioembolic risk reduction with atrial flutter. Unsure of her baseline renal function is, however, if renal function improves her apixaban dose should be increased to 5 mg p.o. b.i.d. (4) Acute renal failure: Qualifiers: Acute renal failure type: unspecified Qualified Code(s): N17.9 - Acute kidney failure, unspecified Code(s): N17.9 - Acute kidney failure, unspecified Status: Acute Assessment and Plan: Secondary to right staghorn calculus of the kidney. Status post cystoscopy and stent placement. Creatinine is improving. Plan Recommendation plan discussed with orthopaedic surgeon. History of Present Illness History of Present Illness Consult date/time: 08/07/24 14:12 Requesting physician: Paresh Moran MD Consult reason: Other (bradycardia) Reason For Visit: Generalized weakness, UTI, NSTEMI Narrative: Her back a brown is a 79-year-old female with atrial flutter, history of takotsubo cardiomyopathy, and valvular heart disease. This is a patient who is followed by [facility] in [place]. She comes to [facility] because of generalized weakness. Cardiology is consulted because of bradycardia. At the time of my evaluation, patient is having significant pain, stating that she feels that she has to urinate but is unable to and is unable to provide much of a history. She is however able to tell me that prior to admission to the hospital she had not experienced any syncope, presyncope, chest pain, or shortness of breath. She does have occasional lightheadedness and dizziness. Because of hypotension and heart rates in the 40s on arrival to the hospital, she was placed on a dopamine drip and her hemodynamics have stabilized. Review of Systems 2 Review of Systems: All systems reviewed & are unremarkable except as noted in HPI and below PMFSH Past Medical History Medical History Paroxysmal atrial fibrillation Chronic anticoagulation Chronic kidney disease CHF (congestive heart failure) Morbid obesity with BMI of 45.0-49.9, adult HTN (hypertension) COPD (chronic obstructive pulmonary disease) Asthma Family History Family History Mother Kidney failure Social History Social History Social History: She lives with her of 48 years. She has 2 adult children who do not live nearby. She is a lifelong nonsmoker and denies any history of drug use. 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 She used to drink a couple of alcoholic beverages a week but has not done so in many years. Code status: After multiple conversations and discussion with multiple staff members the patient has decided that she would like to be a DNR/DNI. She would be okay with pressors and noninvasive ventilator support if needed but would not want cardiac resuscitation or intubation. Surrogate decision maker: Smoking status: Never smoker Alcohol intake: never Substance use: never Do You Feel Safe in your Home?: Yes Lack of Transportation: No Lack of Food: Never True Current Housing: I Have Housing Concerned About Future Housing: No Difficulty Paying Gas/Electric Bills: No Difficulty Paying for Meds: No Currently Unemployed: No Education: Decline to Answer Difficulty w/ Childcare or Family Care: No Living arrangements: with family Additional living arrangements comments: Spiritual care concerns: No Meds Home Medications and Allergies Home Medications ?Medication ?Instructions ?Recorded ?Confirmed ?Type albuterol sulfate 90 mcg/actuation 1 inhalation inhalation BID 08/07/24 08/07/24 History aerosol inhaler amiodarone 200 mg tablet 200 mg PO DAILY 08/07/24 08/07/24 History apixaban 2.5 mg tablet (Eliquis) 2.5 mg PO BID 08/07/24 08/07/24 History atorvastatin 10 mg tablet 5 mg PO QPM 08/07/24 08/07/24 History bupropion HCl 150 mg tablet,12 hr 150 mg PO BID 08/07/24 08/07/24 History sustained-release carvedilol 3.125 mg tablet 3.125 mg PO BID 08/07/24 08/07/24 History fluoxetine 20 mg capsule 20 mg PO DAILY 08/07/24 08/07/24 History fluticasone propionate 50 1 spray intranasal DAILY 08/07/24 08/07/24 History mcg/actuation nasal spray,suspension (Flonase Allergy Relief) furosemide 40 mg tablet 40 mg PO DAILY 08/07/24 08/07/24 History loratadine 10 mg tablet 10 mg PO DAILY 08/07/24 08/07/24 History sacubitril 24 mg-valsartan 26 mg 1 tablet PO BID 08/07/24 08/07/24 History tablet (Entresto) sodium di- and 1 tablet PO QID 08/07/24 08/07/24 History monophosphate-potassium phos monobasic 250 mg tablet (Fan-Phos Neutral) spironolactone 25 mg tablet 25 mg PO DAILY 08/07/24 08/07/24 History topiramate 25 mg tablet 25 mg PO BID 08/07/24 08/07/24 History Allergies Allergy/AdvReac Type Severity Reaction Status Date / Time BLOOD PRESSURE PILL Allergy Unknown Uncoded 06/10/15 08:59 Vital Signs Vital Signs - 24 hr 08/06/24 17:08 08/06/24 17:47 08/06/24 18:15 Temperature 36.4 C L Pulse Rate 58 L 49 L 44 L Respiratory Rate 12 14 Blood Pressure 68/32 L 66/55 L Pulse Oximetry 96 97 Oxygen Delivery Room Air Oxygen Flow Rate 08/06/24 19:05 08/06/24 20:00 08/06/24 20:04 Temperature Pulse Rate 45 L 46 L 45 L Respiratory Rate 16 17 15 Blood Pressure 80/40 L 112/53 L 112/60 Pulse Oximetry 95 98 98 Oxygen Delivery Oxygen Flow Rate 08/06/24 20:31 08/06/24 20:45 08/06/24 21:00 Temperature Pulse Rate 41 L 43 L 42 L Respiratory Rate 19 13 22 H Blood Pressure 62/54 L 120/87 127/113 H Pulse Oximetry 96 96 96 Oxygen Delivery Oxygen Flow Rate 08/06/24 21:31 08/06/24 22:07 08/06/24 22:24 Temperature 36.3 C L Pulse Rate 56 L 43 L 43 L Respiratory Rate 16 15 21 H Blood Pressure 98/64 L Pulse Oximetry 97 93 93 Oxygen Delivery Oxygen Flow Rate 08/06/24 23:59 08/07/24 00:03 08/07/24 00:24 Temperature Pulse Rate 43 L 43 L 48 L Respiratory Rate 17 Blood Pressure 60/44 L 66/44 L 70/42 L Pulse Oximetry 93 Oxygen Delivery Oxygen Flow Rate 08/07/24 00:35 08/07/24 00:37 08/07/24 01:45 Temperature Pulse Rate 68 62 70 Respiratory Rate 22 H 17 Blood Pressure 92/46 L 80/52 L 98/44 L Pulse Oximetry 97 97 Oxygen Delivery Oxygen Flow Rate 08/07/24 02:15 08/07/24 02:25 08/07/24 02:30 Temperature 37.1 C Pulse Rate 76 67 Respiratory Rate 22 H 17 Blood Pressure 76/54 L 90/54 L 116/74 Pulse Oximetry 93 97 Oxygen Delivery Oxygen Flow Rate 08/07/24 03:18 08/07/24 04:00 08/07/24 04:00 Temperature Pulse Rate 71 70 Respiratory Rate Blood Pressure 76/54 L Pulse Oximetry 97 Oxygen Delivery Nasal Cannula Oxygen Flow Rate 2 08/07/24 04:00 08/07/24 04:00 08/07/24 05:00 Temperature 36.6 C Pulse Rate 70 70 66 Respiratory Rate 23 H Blood Pressure 121/49 L 121/49 L 107/65 Pulse Oximetry 96 Oxygen Delivery Oxygen Flow Rate 08/07/24 05:42 08/07/24 06:00 08/07/24 06:00 Temperature Pulse Rate 67 66 Respiratory Rate Blood Pressure 99/58 L 128/95 H Pulse Oximetry Oxygen Delivery Oxygen Flow Rate 08/07/24 06:00 08/07/24 06:00 08/07/24 08:00 Temperature Pulse Rate 64 64 59 L Respiratory Rate Blood Pressure 128/95 H 128/95 H Pulse Oximetry Oxygen Delivery Oxygen Flow Rate 08/07/24 08:00 08/07/24 08:00 08/07/24 10:00 Temperature 37.1 C Pulse Rate 58 L 61 Respiratory Rate 20 Blood Pressure 104/65 Pulse Oximetry 95 95 Oxygen Delivery Nasal Cannula Oxygen Flow Rate 2 08/07/24 10:00 08/07/24 10:26 08/07/24 10:35 Temperature Pulse Rate 58 L 60 65 Respiratory Rate 22 H 23 H 15 Blood Pressure 101/57 L Pulse Oximetry 96 95 98 Oxygen Delivery Nasal Cannula Nasal Cannula Oxygen Flow Rate 1.5 1 08/07/24 12:20 08/07/24 12:25 Temperature Pulse Rate 64 65 Respiratory Rate Blood Pressure 62/35 L 99/49 L Pulse Oximetry Oxygen Delivery Oxygen Flow Rate Exam 2 Narrative: Obese, ill-appearing female lying supine in bed Const: General: no acute distress, alert, awake and uncomfortable (Intermittently uncomfortable because of pain) Orientation/consciousness: p atient oriented x3 HENMT: Head: normal to inspection Eyes: General: appearance normal, both eyes and all related structures P upils: Equal, round and reactive pupils present Neck: Neck: normal visual inspection, supple and no JVD Carotids: normal carotid upstroke Resp: Effort & Inspection: normal respiratory effort Auscultation: crackles Cardio: Rate: regular rate Rhythm: abnormal rhythm Heart sounds: S1 normal heart sound present, S2 normal heart sound present and no murmurs GI: Auscultation: normal bowel sounds Urinary Catheter: Urinary Catheter: patent and draining and urine pink Skin: General skin exam: normal color Neuro: General: patient oriented x3 Cranial nerves: Yes Equal, round and reactive pupils present Extrem: General: no edema Psych: Appearance: grossly normal Mental Status: mental status grossly normal Results Labs and Meds 08/07/24 06:02 08/07/24 06:02 Lab results: Cardiac Enzymes 08/06/24 08/06/24 08/07/24 Range/Units 18:14 22:05 06:02 AST 295 H 308 H (14-36) U/L Troponin I 0.037 H* 0.027 D (0.000-0.034) ng/mL Coagulation 08/07/24 Range/Units 09:59 PT 24.4 H (11.1-14.7) Seconds APTT 34.2 (22.3-36.8) Seconds CBC 08/06/24 08/07/24 Range/Units 18:14 06:02 WBC 22.3 H 23.3 H (4.5-10.0) K/mm3 RBC 4.09 L 4.29 (4.2-5.4) M/mm3 Hgb 13.6 14.1 (12.0-15.0) g/dL Hct 37.3 39.4 (37.0-47.0) % Plt Count 290 333 (150-375) k/mm3 Lymph # (Auto) Not Reportable Not Reportable Lander # (Auto) Not Reportable Not Reportable Eos # (Auto) Not Reportable Not Reportable Baso # (Auto) Not Reportable Not Reportable Comprehensive Metabolic Panel 08/06/24 08/07/24 Range/Units 18:14 06:02 Sodium 133 L 133 L (137-145) mmol/L Potassium 3.1 L 3.3 L (3.4-5.0) mmol/L Chloride 97 L 102 (98-107) mmol/L Carbon Dioxide 25 22 (22-30) mmol/L BUN 66 H 62 H (7-17) mg/dL Creatinine 3.38 H 2.88 H (0.7-1.0) mg/dL Glucose 107 198 H (65-110) mg/dL Calcium 7.6 L 7.2 L (8.4-10.2) mg/dL AST 295 H 308 H (14-36) U/L ALT 242 H 276 H (6-35) U/L Alkaline Phosphatase 131 H 148 H (38-126) U/L Total Protein 5.0 L 6.0 L (6.3-8.2) g/dL Albumin 2.3 L 2.6 L (3.5-5.1) g/dL Intake and Output 08/06/24 08/07/2425 23:59 07:59 15:59 Intake Total 4650 112.1 166.4 Balance 4650 112.1 166.4 Intake: IV 4650 112.1 166.4 DOPamine 400 MG/D5W 250 ML 400 112.1 166.4 mg In 250 ml @ 6 MCG/KG/MIN 25. 875 mls/hr IV CONT .Q9H40M SAL Rx#:[id number] Sodium Chloride 0.9% IV 1,000 4000 ml @ 999 mls/hr IV CONT .Q1H1M STA Rx#:[id number] Cefepime 1 gm/Ns 50 ml 1 gm In 50 50 ml @ 100 mls/hr IVPB ONCE STA Rx#:[id number] KCl 20 Meq/Sw 100 ml 100 ml @ 100 50 mls/hr IVPB ONCE STA Rx#: [id number] Vancomycin 1,750 mg/Ns 500 ml 1 500 ,750 mg In 500 ml @ 250 mls/hr IVPB ONCE ONE Rx#:[id number] Other: # Unmeasured Voids 1 Number of Bowel Movements Today 0 Patient Weight 08/07/24 23:59 Weight 115 kg
[2024-08-07] MEDS: DOPamine 400 MG/D5W 250 ML 400 MG/250 ML BAG 34.5 MG IV CONT (14:51)
[2024-08-07] MEDS: HYDROcodone/acetaminophen (*CRX) 5-325 MG TABLET 1 TAB PO ×2 (16:21→22:36)
[2024-08-07 18:44] LABS: Eosinophil Urine None Seen % (None Seen); Urine Eos QC 2nd Tech Confirmed
[2024-08-07 20:49] LABS: Urea Random Urine 546 MG/DL
[2024-08-07 20:51] LABS: Creatinine Urine 44.7 mg/dL; Total Protein Urine Random 154 mg/dL; Ur Ttl Prot Creatinine Ratio 3.45 mg/mg (0-0.20)
[2024-08-07 21:02] LABS: Sodium Urine Random 55 meq/L
[2024-08-07] MEDS: VANCOMYCIN 1,750 MG/NS 500 ML 1,750 MG/500 ML BAG 250 MG IVPB (21:50)
[2024-08-08] VITALS (30 sets, daily range): BP systolic 64–118; BP diastolic 45–103; PULSE 49–73; RESP 16–26; TEMP 36.2–36.8; O2SAT 94–99; BMI 10.0
[2024-08-08] MEDS: DOPamine 400 MG/D5W 250 ML 400 MG/250 ML BAG 38.81 MG IV CONT (03:41)
[2024-08-08] MEDS: HYDROcodone/acetaminophen (*CRX) 5-325 MG TABLET 1 TAB PO ×2 (05:26→15:30)
[2024-08-08] MEDS: CENTRAL LINE FLUSH 10 ML IV PUSH ×3 (05:28→19:51)
[2024-08-08 05:57] LABS: Creatine Kinase 25 U/L (30-135)
[2024-08-08 06:00] LABS: Lactic Acid Reflex 1.4 mmol/L (0.7-2.0)
[2024-08-08 06:01] LABS: Alanine Aminotransferase 285 U/L (6-35); Albumin Level 2.6 g/dL (3.5-5.1); Alkaline Phosphatase 172 U/L (38-126); Anion Gap 7 mmol/L (4-12); Aspartate Amino Transferase 306 U/L (14-36); Blood Urea Nitrogen 50 mg/dL (7-17); Calcium 8.4 mg/dL (8.4-10.2); Carbon Dioxide 22 mmol/L (22-30); Chloride 107 mmol/L (98-107); Estimated CRCL calculation 27 ml/min; Estimated Glomerular Filt Rate 26; Glucose 124 mg/dL (65-110); Magnesium 1.9 mg/dL (1.6-2.3); Phosphorus 3.8 mg/dL (2.5-4.5); Potassium 3.7 mmol/L (3.4-5.0); Sodium 136 mmol/L (137-145)
[2024-08-08 07:10] LABS: Hepatitis B Surface Antigen Negative (Negative)
[2024-08-08 07:28] LABS: Hepatitis B Surface Anti Res Negative
[2024-08-08] MEDS: POTASSIUM CHLORIDE 20 MEQ ER TABLET 40 MEQ PO (09:09)
[2024-08-08] MEDS: PANTOPRAZOLE SODIUM IV 40 MG VIAL IV PUSH (09:10)
[2024-08-08] MEDS: buPROPion HCL SR (12 HR) 150 MG TAB PO ×2 (09:10→19:50)
[2024-08-08] MEDS: TOPIRAMATE 25 MG TABLET PO ×2 (09:10→19:51)
[2024-08-08 09:11] LABS: Hematocrit 40.9 % (37.0-47.0); Hemoglobin 14.4 g/dL (12.0-15.0); Mean Corpuscular HGB Conc 35.2 g/dl (32-36); Mean Corpuscular Hemoglobin 32.6 pg (26-34); Mean Corpuscular Volume 92.5 fl (80-100); Mean Platelet Volume 9.2 fl (7.4-10.4); Platelet Count Result 372 k/mm3 (150-375); Red Blood Count 4.42 M/mm3 (4.2-5.4); Red Cell Distribution Width 14.3 % (11.5-14.5)
[2024-08-08] MEDS: BISACODYL 10 MG SUPPOSITORY RECTAL (09:11)
[2024-08-08] MEDS: FLUoxetine HCL 20 MG CAPSULE PO (09:11)
[2024-08-08] MEDS: FLUTICASONE PROPIONATE 0.05% NA SPR 16 GM BTL (*BKC) 1 SPRAY NASAL (09:12)
--- NOTE | 2024-08-08 09:47 | P.PNINT_ITS ---
Progress Note: A&P Assessment and Plan (1) Septic shock: Code(s): A41.9 - Sepsis, unspecified organism; R65.21 - Severe sepsis with septic shock Status: Acute Assessment and Plan: 08/06: Patient presented with generalized weakness, hypovolemia, hypotension, leukocytosis, was found to be in septic shock, likely related to UTI, cholecystitis, hypovolemia -patient was adequately fluid resuscitated and is off of crystalloids -add 25% albumin -lactic acid has normalized -central line was inserted in the right IJ -continue dopamine for bradycardia and hypotension, maintain MAP > 65 mmHg for adequate end organ perfusion -08/06: Blood and urine cultures have been obtained -08/06: Urine cultures is growing Gram-negative rods -continue cefepime (08/06), but will discontinue vancomycin 08/06: RUQ ultrasound: Single lamellated stone within the gallbladder with a sonographic Berry sign. Surgery has been consulted for possible cholecystitis (2) UTI (urinary tract infection): Qualifiers: Hematuria presence: with hematuria Urinary tract infection type: acute cystitis Qualified Code(s): N30.01 - Acute cystitis with hematuria Code(s): N39.0 - Urinary tract infection, site not specified Status: Acute Assessment and Plan: UTI could be related to staghorn calculus in the right kidney or cystitis -antibiotics as above (3) Staghorn calculus: Code(s): N20.0 - Calculus of kidney Status: Acute Assessment and Plan: 08/06: CT chest abdomen and pelvis: Findings within the chest suggesting pulmonary hypertension.Staghorn calculus within the right kidney with global enlargement of the right kidney and surrounding inflammatory change. Lamellated stone within the gallbladder without additional abnormality. Punctate foci of air within the bladder with surrounding inflammatory change suggesting cystitis. Fibroid uterus, enlarged for a patient of this age. Nonobstructing fat- containing umbilical hernia. 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 08/07 status post Cystoscopy, right retrograde, right ureteral stent placement 6 Italian contour, Stafford catheter placement (4) Bradycardia, sinus: Code(s): R00.1 - Bradycardia, unspecified Status: Acute Assessment and Plan: Patient sinus bradycardia could be related to hypovolemia, but continue to take her home medications amiodarone, Coreg -patient currently on dopamine for bradycardia and hypotension -cardiology following -continue to hold amiodarone and AV annmarie blocking agents (5) Acute renal failure: Qualifiers: Acute renal failure type: unspecified Qualified Code(s): N17.9 - Acute kidney failure, unspecified Code(s): N17.9 - Acute kidney failure, unspecified Status: Acute Assessment and Plan: Acute renal failure likely related to hypovolemia, decreased oral intake, says septic shock/infection -patient received 3 L IV fluid bolus in the ER -start maintenance IV fluids for 1000 mL x1 -creatinine trending down -continue to monitor urine output, renal function electrolytes -nephrology was consulted from ER (6) Electrolyte imbalance: Code(s): E87.8 - Other disorders of electrolyte and fluid balance, not elsewhere classified Status: Acute Assessment and Plan: Replace potassium (7) Atrial fibrillation: Qualifiers: Atrial fibrillation type: paroxysmal Qualified Code(s): I48.0 - Paroxysmal atrial fibrillation Code(s): I48.91 - Unspecified atrial fibrillation Status: Acute Assessment and Plan: Patient has a history of atrial fibrillation on Eliquis at home -she also takes amiodarone and Coreg at home -currently bradycardic and hypotensive -continue to hold home medications -hold Eliquis as patient has cystoscopy and has hematuria (8) Cholelithiasis without cholecystitis: Code(s): K80.20 - Calculus of gallbladder without cholecystitis without obstruction Status: Acute Assessment and Plan: Ultrasound shows large single gallbladder stone. Radiologic Berry sign was positive. No other changes of cholecystitis or obstruction was seen. Patient was evaluated by general surgery and recommended conservative management at this time. No plan for surgical intervention (9) Transaminitis: Code(s): R74.01 - Elevation of levels of liver transaminase levels Status: Acute Assessment and Plan: Multifactorial. Monitor. Plan DVT prophylaxis: Eliquis currently on hold due to hematuria Stress ulcer prophylaxis: Protonix Nutrition: Diet ordered Code Status: Do not resuscitate Critical Care Time Spent: 33 minutes Due to a high probability of clinically significant, life threatening deterioration, the patient required my highest level of preparedness to intervene emergently and I personally spent this critical care time directly and personally managing the patient. This critical care time included obtaining a history; examining the patient; pulse oximetry; ordering and review of studies; arranging urgent treatment with development of a management plan; evaluation of patient's response to treatment; frequent reassessment; and discussions with other providers. It was exclusive of separately billable procedures and treating other patients and teaching time. Please see Assessment and Plan section and the rest of the note for further information on patient assessment and treatment This dictation may have been done utilizing a voice recognition system. Attempts have been made to correct errors. However, there may be uncorrected grammatical, spelling, and recognitions errors present. Subjective Date/time seen: 08/08/24 09:47 Review of Systems Review of Systems: All systems reviewed & are unremarkable except as noted in HPI and below Exam Narrative: General: Pleasant female in no acute distress HEENT:? Pupils equal and reactive, sclera is clear, moist oral mucosa, some Neck:? Supple Respiratory:? Clear to auscultation bilaterally, decreased breath sounds at bases, adequate air entry, no wheeze Cardiac:? Sinus bradycardia Abdomen:? Soft, obese, tender to palpation around the umbilicus, normoactive bowel sounds Extremities:? Trace edema, palpable pedal pulses Neuro:? Patient is awake, alert, oriented to place, person, knew her date of and the year. She is slow to answer and hard of hearing but able to follow simple commands and answer questions Skin:? Warm and dry Psych:? Flat affect Objective Data Vital Signs Vital Signs: Vital Signs - 24 hr 08/07/24 10:00 08/07/24 10:00 08/07/24 10:00 Temperature Pulse Rate 61 58 L 58 L Respiratory Rate 22 H Blood Pressure 101/57 L 101/57 L Pulse Oximetry 96 Oxygen Delivery Oxygen Flow Rate 08/07/24 10:26 08/07/24 10:35 08/07/24 12:00 Temperature Pulse Rate 60 65 67 Respiratory Rate 23 H 15 Blood Pressure 89/61 L Pulse Oximetry 95 98 Oxygen Delivery Nasal Cannula Nasal Cannula Oxygen Flow Rate 1.5 1 08/07/24 12:20 08/07/24 12:25 08/07/24 14:00 Temperature Pulse Rate 64 65 66 Respiratory Rate Blood Pressure 62/35 L 99/49 L Pulse Oximetry Oxygen Delivery Oxygen Flow Rate 08/07/24 14:00 08/07/24 14:51 08/07/24 14:51 Temperature Pulse Rate 66 69 66 Respiratory Rate Blood Pressure 132/77 117/73 117/73 Pulse Oximetry Oxygen Delivery Oxygen Flow Rate 08/07/24 16:00 08/07/24 16:00 08/07/24 16:00 Temperature Pulse Rate 65 70 65 Respiratory Rate 23 H Blood Pressure 103/62 Pulse Oximetry 97 Oxygen Delivery Nasal Cannula Oxygen Flow Rate 2 08/07/24 18:00 08/07/24 20:00 08/07/24 20:00 Temperature Pulse Rate 65 70 68 Respiratory Rate Blood Pressure 90/70 L Pulse Oximetry Oxygen Delivery Oxygen Flow Rate 08/07/24 20:00 08/07/24 20:49 08/07/24 21:00 Temperature 36.7 C Pulse Rate 68 68 Respiratory Rate 27 H 26 H Blood Pressure 99/68 L 78/58 L Pulse Oximetry 99 97 Oxygen Delivery Nasal Cannula Oxygen Flow Rate 2 08/07/24 21:20 08/07/24 21:51 08/07/24 21:51 Temperature Pulse Rate 68 70 70 Respiratory Rate Blood Pressure 83/54 L 97/48 L 97/48 L Pulse Oximetry Oxygen Delivery Oxygen Flow Rate 08/07/24 22:00 08/07/24 22:00 08/07/24 22:00 Temperature 36.7 C Pulse Rate 68 68 68 Respiratory Rate 26 H Blood Pressure 108/78 108/78 Pulse Oximetry 100 Oxygen Delivery Oxygen Flow Rate 08/08/24 00:00 08/08/24 00:00 08/08/24 00:00 Temperature 36.7 C Pulse Rate 69 69 Respiratory Rate 17 22 H Blood Pressure 95/63 L 98/56 L Pulse Oximetry 99 98 Oxygen Delivery Nasal Cannula Oxygen Flow Rate 2 08/08/24 00:00 08/08/24 02:00 08/08/24 02:00 Temperature Pulse Rate 71 69 69 Respiratory Rate Blood Pressure 111/72 Pulse Oximetry Oxygen Delivery Oxygen Flow Rate 08/08/24 02:00 08/08/24 03:41 08/08/24 03:41 Temperature 36.7 C Pulse Rate 69 71 71 Respiratory Rate 19 Blood Pressure 111/72 111/70 111/70 Pulse Oximetry 98 Oxygen Delivery Oxygen Flow Rate 08/08/24 04:00 08/08/24 04:00 08/08/24 04:00 Temperature 36.6 C Pulse Rate 68 68 Respiratory Rate 24 H 22 H Blood Pressure 98/66 L Pulse Oximetry 98 98 Oxygen Delivery Nasal Cannula Oxygen Flow Rate 2 08/08/24 04:00 08/08/24 05:26 08/08/24 06:00 Temperature Pulse Rate 68 69 68 Respiratory Rate Blood Pressure 98/66 L 98/72 L Pulse Oximetry Oxygen Delivery Oxygen Flow Rate 08/08/24 06:00 08/08/24 06:00 08/08/24 08:04 Temperature 36.6 C Pulse Rate 68 68 70 Respiratory Rate 23 H Blood Pressure 83/59 L 83/59 L 93/64 L Pulse Oximetry 97 Oxygen Delivery Oxygen Flow Rate 08/08/24 08:34 08/08/24 08:35 08/08/24 09:06 Temperature Pulse Rate 71 70 Respiratory Rate Blood Pressure 90/78 L 67/45 L Pulse Oximetry 97 Oxygen Delivery Nasal Cannula Oxygen Flow Rate 2 08/08/24 09:21 Temperature Pulse Rate 73 Respiratory Rate Blood Pressure 94/58 L Pulse Oximetry Oxygen Delivery Oxygen Flow Rate Intake/Output Intake/Output: Intake & Output 08/05/24 08/06/24 08/07/24 08/08/24 23:59 23:59 23:59 23:59 Intake Total 4650 1026.0 654.3 Output Total 980 850 Balance 4650 46.0 -195.7 Meds/Results Medications: Active Medications Generic Name Dose Route Start Last Admin Trade Name Freq PRN Reason Stop Dose Admin Acetaminophen 650 mg 08/06/24 21:36 Acetaminophen 325 Mg Tablet PO Q4H PRN Mild Pain (1-3) or Fever Hydrocodone Bitart/Acetaminophen 1 tab 08/07/24 15:27 08/08/24 05:26 Hydrocodone/Acetaminophen (*Crx) 5-325 Mg Tablet PO 1 tab Q6H PRN Administration Pain Rated 4-6 Apixaban 2.5 mg 08/07/24 09:00 Apixaban 2.5 Mg Tablet PO Q12HR SAL Bisacodyl 10 mg 08/08/24 09:00 08/08/24 09:11 Bisacodyl 10 Mg Suppository RECTAL 10 mg QAM SAL Administration Bupropion HCl 150 mg 08/07/24 09:00 08/08/24 09:10 Bupropion Hcl Sr (12 Hr) 150 Mg Tab PO 150 mg Q12HR SAL Administration Fentanyl Citrate 25 mcg 08/07/24 11:08 Fentanyl Citrate Inj (*Crx) 100 Mcg/2 Ml Vial IV PUSH Q2M PRN Pain Fluoxetine HCl 20 mg 08/07/24 09:00 08/08/24 09:11 Fluoxetine Hcl 20 Mg Capsule PO 20 mg DAILY SAL Administration Fluticasone Propionate 1 spray 08/07/24 09:00 08/08/24 09:12 Fluticasone Propionate 0.05% Na Spr 16 Gm Btl (*Bkc) NASAL 1 spray DAILY SAL Administration Dopamine HCl/Dextrose 400 mg in 250 mls @ 38.813 mls/hr 08/07/24 03:15 08/08/24 09:21 Dopamine 400 Mg/D5w 250 Ml IV CONT 9 mcg/kg/min .Q6H27M SAL 38.81 mls/hr Titration Protocol 9 MCG/KG/MIN Cefepime HCl 1 gm in 50 mls @ 100 mls/hr 08/07/24 09:00 08/07/24 20:22 Maxipime 1 Gm/Ns 50 Ml IVPB 100 mls/hr Q12HR SAL Administration Albumin Human 100 mls @ 60 mls/hr 08/08/24 12:00 Albutein IVPB 08/10/24 11:59 Q6HR SAL Loratadine 10 mg 08/07/24 09:00 08/07/24 10:10 Loratadine 10 Mg Tablet PO Not Given DAILY SAL Ondansetron HCl 4 mg 08/06/24 21:36 Ondansetron Inj 4 Mg/2 Ml Vial IV PUSH Q4H PRN Nausea Ondansetron HCl 4 mg 08/07/24 11:08 Ondansetron Inj 4 Mg/2 Ml Vial IV PUSH ONCE PRN Nausea Pantoprazole Sodium 40 mg 08/08/24 09:00 08/08/24 09:10 Pantoprazole Sodium Iv 40 Mg Vial IV PUSH 40 mg QAM SAL Administration Polyethylene Glycol 17 gm 08/08/24 09:00 08/08/24 09:11 Polyethylene Glycol 3350 17 Gm Powd.Pack PO Not Given QAM SAL Sodium Chloride 10 ml 08/07/24 06:00 08/08/24 05:28 Central Line Flush IV PUSH 10 ml Q8HR SAL Administration Sodium Chloride 20 ml 08/07/24 02:32 Central Line Flush IV PUSH PRN PRN after blood draws Topiramate 25 mg 08/07/24 09:00 08/08/24 09:10 Topiramate 25 Mg Tablet PO 25 mg Q12HR SAL Administration Vancomycin HCl 1 each 08/06/24 20:42 Vancomycin For Acute Kidney Injury IVPB PRN PRN Vancomycin Protocol Radiology Results: ITS Impressions Abdomen Ultrasound 08/06/24 20:18 IMPRESSION: Single lamellated stone within the gallbladder with a sonographic Berry sign. Chest/Abdomen/Pelvis CT 08/06/24 20:22 IMPRESSION: Findings within the chest suggesting pulmonary hypertension. Staghorn calculus within the right kidney with global enlargement of the right kidney and surrounding inflammatory change. Lamellated stone within the gallbladder without additional abnormality. Punctate foci of air within the bladder with surrounding inflammatory change suggesting cystitis. Fibroid uterus, enlarged for a patient of this age. Nonobstructing fat-containing umbilical hernia. 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 Chest X-Ray 08/07/24 05:19 Impression: Right IJ line in place. Clear lungs. Retrograde Pyelogram 08/07/24 12:44 IMPRESSION: 1. Right internal ureteral stent in expected position. Renal Ultrasound 08/07/24 15:17 IMPRESSION: No definite abnormality seen. Labs Labs: Laboratory Results - last 24 hr 08/06/24 08/07/24 08/07/24 18:13 09:59 12:56 WBC RBC Hgb Hct MCV MCH MCHC RDW Plt Count MPV PT 24.4 H INR 2.2 APTT 34.2 Sodium Potassium Chloride Carbon Dioxide Anion Gap BUN Creatinine Estim Creat Clear Calc Estimated GFR Glucose POC Capillary Glucose 122 H Lactic Acid Calcium Phosphorus Magnesium Total Bilirubin AST ALT Alkaline Phosphatase Total Creatine Kinase Total Protein Albumin Urine Eosinophils U Random Total Protein Ur Random Sodium Ur Random Urea Urine Total Volume Urine Creatinine Protein/Creat Ratio 2 Vancomycin Trough C. difficile (PCR) Cancelled Hep Bs Antigen Hep Bs Antibody 08/07/24 08/07/24 08/07/24 17:30 17:30 17:30 WBC RBC Hgb Hct MCV MCH MCHC RDW Plt Count MPV PT INR APTT Sodium Potassium Chloride Carbon Dioxide Anion Gap BUN Creatinine Estim Creat Clear Calc Estimated GFR Glucose POC Capillary Glucose Lactic Acid Calcium Phosphorus Magnesium Total Bilirubin AST ALT Alkaline Phosphatase Total Creatine Kinase Total Protein Albumin Urine Eosinophils None seen U Random Total Protein 154 Cancelled Ur Random Sodium 55 Ur Random Urea 546 Urine Total Volume Cancelled Urine Creatinine 44.7 Cancelled Protein/Creat Ratio 2 3.45 H Vancomycin Trough C. difficile (PCR) Hep Bs Antigen Hep Bs Antibody 08/07/24 08/08/24 08/08/24 20:30 05:32 09:04 WBC 23.0 H RBC 4.42 Hgb 14.4 Hct 40.9 MCV 92.5 MCH 32.6 MCHC 35.2 RDW 14.3 Plt Count 372 MPV 9.2 PT INR APTT Sodium 136 L Potassium 3.7 Chloride 107 Carbon Dioxide 22 Anion Gap 7 BUN 50 H D Creatinine 1.89 H Estim Creat Clear Calc 27 Estimated GFR 26 L Glucose 124 H POC Capillary Glucose Lactic Acid 1.4 Calcium 8.4 Phosphorus 3.8 Magnesium 1.9 Total Bilirubin 2.0 H AST 306 H ALT 285 H Alkaline Phosphatase 172 H Total Creatine Kinase 25 L Total Protein 6.0 L Albumin 2.6 L Urine Eosinophils U Random Total Protein Ur Random Sodium Ur Random Urea Urine Total Volume Urine Creatinine Protein/Creat Ratio 2 Vancomycin Trough 13.0 C. difficile (PCR) Hep Bs Antigen Negative Hep Bs Antibody Negative Quality VTE Prophylaxis VTE prophylaxis: mechanical ordered and pharmacologic ordered Hospitalist [facility] Advance Care Plan I have confirmed that the patient's Advanced Care Plan is present, code status is documented, or surrogate decision maker is listed in patient medical record.: Yes Medication Reconciliation I have utilized all available resources to obtain, update and review the patients current medications (includes all prescriptions, OTC, herbals, cannabis, and nutritional supplements).: Yes
[2024-08-08] MEDS: DOPamine 400 MG/D5W 250 ML 400 MG/250 ML BAG 49.59 MG IV CONT (10:41)
[2024-08-08] MEDS: CEFEPIME 1 GM/NS 50 ML 1 GM/50 ML BAG IVPB ×2 (11:15→19:50)
[2024-08-08] MEDS: ALBUMIN HUMAN 25% 25 GM/100 ML 100 ML IVPB ×3 (11:27→23:57)
--- NOTE | 2024-08-08 12:30 | P.PNNP_ITS ---
Progress Note: A&P Assessment and Plan (1) TOÑA (acute kidney injury): Code(s): N17.9 - Acute kidney failure, unspecified Status: Acute Assessment and Plan: * normal renal function at baseline (at least by labs done in Sep 2023 with a creatinine of 0.81mg/dl from [facility] records) * etiology multifactorial: * prerenal factors/volume depletion * poor oral intake * sepsis/infection * hemodynamic instability/shock * use of entresto + diuretics (lasix & spironolactone) prior to admission * s/p fluid resuscitation (3L bolus in ER and on maintenance currently) * improvement in creatinine noted (down to 2.88mg/dl this AM) * evaluation to date noted: * CT of abd/pelvis with staghorn calculus within the right kidney with global enlargement of the right kidney and surrounding inflammatory change * renal ultrasound okay * UA suggestive on infection * urine electrolytes non-prerenal * urine eosinophils negative * CPK low * continue supportive therapy * follow trend of repeat labs and UOP (2) Septic shock: Code(s): A41.9 - Sepsis, unspecified organism; R65.21 - Severe sepsis with septic shock Status: Acute Assessment and Plan: * presumably due to UTI along with hypovolemia and possible cholecystitis * s/p aggressive IVF resuscitation * on dopamine to maintain MAP as well as for bradycardia * on antibiotics * follow culture data * blood culture with GNB * follow trend of hemodynamics (3) UTI (urinary tract infection): Qualifiers: Hematuria presence: with hematuria Urinary tract infection type: acute cystitis Qualified Code(s): N30.01 - Acute cystitis with hematuria Code(s): N39.0 - Urinary tract infection, site not specified Status: Acute Assessment and Plan: * UA highly suggestive * complicated by staghorn calculus in the right kidney based on admission imaging * follow culture data * on antibiotics (4) Staghorn calculus: Code(s): N20.0 - Calculus of kidney Status: Acute Assessment and Plan: * as noted by admission CT scan: * staghorn calculus within the right kidney with global enlargement of the right kidney and surrounding inflammatory change * s/p interventions (cystoscopy and righer ureteral stent placement) * Urology following (5) Bradycardia, sinus: Code(s): R00.1 - Bradycardia, unspecified Status: Acute Assessment and Plan: * as noted on admission * remains on dopamine gtt * Cardiology following * follow-up on Echo * holding AV annmarie blocking agents at this time (6) Atrial fibrillation: Qualifiers: Atrial fibrillation type: paroxysmal Qualified Code(s): I48.0 - Paroxysmal atrial fibrillation Code(s): I48.91 - Unspecified atrial fibrillation Status: Acute Assessment and Plan: * known history * on carvedilol and amiodarone as an outpatient as well as Eliquis * these medications are on hold currently Will continue to follow. L Subjective Date/time seen: 08/08/24 12:30 Interval history: Follow-up for acute kidney injury/acute renal failure. Status post cystoscopy, right pyelogram, right ureteral stent placement, and Stafford placement in OR by Urology yesterday -- tolerated these interventions reasonably well; renal function/creatinine continues to slowly improve with current therapy; remains on dopamine gtt as well; no apparent distress voiced at the time of my visit. Exam 2 Narrative: General: elderly but WD/WN female in NAD Heart: bradycardic but normal S1 and S2; no rub Lungs: clear anteriorly Abdomen: soft, nontender, nondistended, positive bowel sounds Extremities: no cyanosis or clubbing; no edema Skin: warm and dry Objective Data Vital Signs Vital Signs: Vital Signs Temp Pulse Resp BP Pulse Ox O2 Del Method O2 Flow Rate 08/08/24 12:00 98.3 F 69 19 80/57 L 96 08/08/24 12:00 71 98/63 L 08/08/24 11:51 71 118/103 H 08/08/24 11:35 72 106/96 H 08/08/24 11:18 72 116/92 H 08/08/24 11:00 70 96/72 L 08/08/24 10:41 68 73/55 L 08/08/24 10:22 68 73/55 L 08/08/24 10:11 68 87/69 L 08/08/24 10:00 98.1 F 68 24 H 89/69 L 97 08/08/24 10:00 68 08/08/24 09:21 73 94/58 L 08/08/24 09:06 70 67/45 L 08/08/24 08:35 71 90/78 L 08/08/24 08:34 97 Nasal Cannula 2 08/08/24 08:04 70 93/64 L 08/08/24 08:00 97.8 F 69 16 93/64 L 98 08/08/24 08:00 67 08/08/24 06:00 68 83/59 L 08/08/24 06:00 98 F 68 23 H 83/59 L 97 08/08/24 06:00 68 08/08/24 05:26 69 98/72 L 08/08/24 04:00 68 98/66 L 08/08/24 04:00 98 F 68 22 H 98/66 L 98 08/08/24 04:00 68 08/08/24 04:00 24 H 98 Nasal Cannula 2 08/08/24 03:41 71 111/70 08/08/24 03:41 71 111/70 08/08/24 02:00 98.1 F 69 19 111/72 98 08/08/24 02:00 69 08/08/24 02:00 69 111/72 08/08/24 00:00 71 08/08/24 00:00 69 98/56 L 08/08/24 00:00 98.1 F 69 22 H 95/63 L 98 08/08/24 00:00 17 99 Nasal Cannula 2 08/07/24 22:00 98.1 F 68 26 H 108/78 100 08/07/24 22:00 68 08/07/24 22:00 68 108/78 08/07/24 21:51 70 97/48 L 08/07/24 21:51 70 97/48 L 08/07/24 21:20 68 83/54 L 08/07/24 21:00 68 78/58 L 08/07/24 20:49 98.1 F 68 26 H 99/68 L 97 08/07/24 20:00 27 H 99 Nasal Cannula 2 08/07/24 20:00 68 08/07/24 20:00 70 90/70 L 08/07/24 18:00 65 Intake/Output Intake/Output: Intake & Output 08/05/24 08/06/24 08/07/24 08/08/24 23:59 23:59 23:59 23:59 Intake Total 4650 1076.0 1206.1 Output Total 980 850 Balance 4650 96.0 356.1 Meds/Results Medications: Active Medications Generic Name Dose Route Start Last Admin Trade Name Freq PRN Reason Stop Dose Admin Acetaminophen 650 mg 08/06/24 21:36 Acetaminophen 325 Mg Tablet PO Q4H PRN Mild Pain (1-3) or Fever Hydrocodone Bitart/Acetaminophen 1 tab 08/07/24 15:27 08/08/24 15:30 Hydrocodone/Acetaminophen (*Crx) 5-325 Mg Tablet PO 1 tab Q6H PRN Administration Pain Rated 4-6 Apixaban 2.5 mg 08/07/24 09:00 Apixaban 2.5 Mg Tablet PO Q12HR SAL Bisacodyl 10 mg 08/08/24 09:00 08/08/24 09:11 Bisacodyl 10 Mg Suppository RECTAL 10 mg QAM SAL Administration Bupropion HCl 150 mg 08/07/24 09:00 08/08/24 09:10 Bupropion Hcl Sr (12 Hr) 150 Mg Tab PO 150 mg Q12HR SAL Administration Fentanyl Citrate 25 mcg 08/07/24 11:08 Fentanyl Citrate Inj (*Crx) 100 Mcg/2 Ml Vial IV PUSH Q2M PRN Pain Fluoxetine HCl 20 mg 08/07/24 09:00 08/08/24 09:11 Fluoxetine Hcl 20 Mg Capsule PO 20 mg DAILY SAL Administration Fluticasone Propionate 1 spray 08/07/24 09:00 08/08/24 09:12 Fluticasone Propionate 0.05% Na Spr 16 Gm Btl (*Bkc) NASAL 1 spray DAILY SAL Administration Dopamine HCl/Dextrose 400 mg in 250 mls @ 21.563 mls/hr 08/07/24 03:15 08/08/24 14:00 Dopamine 400 Mg/D5w 250 Ml IV CONT 5 mcg/kg/min .[id number] SAL 21.56 mls/hr Titration Protocol 5 MCG/KG/MIN Albumin Human 100 mls @ 60 mls/hr 08/08/24 12:00 08/08/24 13:08 Albutein IVPB 08/09/24 11:59 Infused Q6HR SAL Infusion Cefepime HCl 1 gm in 50 mls @ 100 mls/hr 08/08/24 11:30 08/08/24 11:45 Maxipime 1 Gm/Ns 50 Ml IVPB Infused Q12HR SAL Infusion Loratadine 10 mg 08/07/24 09:00 08/07/24 10:10 Loratadine 10 Mg Tablet PO Not Given DAILY SAL Ondansetron HCl 4 mg 08/06/24 21:36 Ondansetron Inj 4 Mg/2 Ml Vial IV PUSH Q4H PRN Nausea Ondansetron HCl 4 mg 08/07/24 11:08 Ondansetron Inj 4 Mg/2 Ml Vial IV PUSH ONCE PRN Nausea Pantoprazole Sodium 40 mg 08/08/24 09:00 08/08/24 09:10 Pantoprazole Sodium Iv 40 Mg Vial IV PUSH 40 mg QAM SAL Administration Polyethylene Glycol 17 gm 08/08/24 09:00 08/08/24 09:11 Polyethylene Glycol 3350 17 Gm Powd.Pack PO Not Given QAM SAL Sodium Chloride 10 ml 08/07/24 06:00 08/08/24 05:28 Central Line Flush IV PUSH 10 ml Q8HR SAL Administration Sodium Chloride 20 ml 08/07/24 02:32 Central Line Flush IV PUSH PRN PRN after blood draws Topiramate 25 mg 08/07/24 09:00 08/08/24 09:10 Topiramate 25 Mg Tablet PO 25 mg Q12HR SAL Administration Radiology Results: ITS Impressions Abdomen Ultrasound 08/06/24 20:18 IMPRESSION: Single lamellated stone within the gallbladder with a sonographic Berry sign. Chest/Abdomen/Pelvis CT 08/06/24 20:22 IMPRESSION: Findings within the chest suggesting pulmonary hypertension. Staghorn calculus within the right kidney with global enlargement of the right kidney and surrounding inflammatory change. Lamellated stone within the gallbladder without additional abnormality. Punctate foci of air within the bladder with surrounding inflammatory change suggesting cystitis. Fibroid uterus, enlarged for a patient of this age. Nonobstructing fat-containing umbilical hernia. 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 Chest X-Ray 08/07/24 05:19 Impression: Right IJ line in place. Clear lungs. Retrograde Pyelogram 08/07/24 12:44 IMPRESSION: 1. Right internal ureteral stent in expected position. Renal Ultrasound 08/07/24 15:17 IMPRESSION: No definite abnormality seen. Labs Labs: Laboratory Tests 08/08/24 09:04 08/08/24 05:32 Lactic Acid 1.4 Calcium 8.4 Phosphorus 3.8 Magnesium 1.9 Total Bilirubin 2.0 H AST 306 H ALT 285 H Alkaline Phosphatase 172 H Total Creatine Kinase 25 L Total Protein 6.0 L Albumin 2.6 L Microbiology 08/06/24 18:14 Blood Blood Culture - Preliminary Gram negative bacilli isolated 08/06/24 18:14 Blood Blood Culture - Preliminary Gram negative bacilli isolated
--- NOTE | 2024-08-08 12:56 | PCFNICU ---
ICU Rounding Note: Pt current nutrition is Heart Healthy with Ensure Compact BID and Rashad BID. Last recorded weight is 118.6 kg, up from 115 kg on admit. Bowel Motility: No BM reported. Labs Reviewed: Glu 124, BUN 50, Cr 1.89, Na 136, Alb 2.6 Meds Noted: Dopamine, Cefepime, Protonix, Maralax. Skin: Deep Tissue-sacrum. Additional Notes: Patient remains on a heart healthy diet with diet supplements. Oral Intake has been about 75% of meals. Ensure Compact providing an additional 220 kcal and 9 gm protein, Rashad BID 90 kcal/7 gm glutamine/7 gm arginine/2.5 gm protein. Agree with diet orders. Following daily in ICU rounds. Will monitor weight labs, skin, oral intake, meds every 5 days.
--- NOTE | 2024-08-08 12:56 | PM.PNCARD ---
Progress Note: A&P Assessment and Plan (1) Bradyarrhythmia: Code(s): I49.8 - Other specified cardiac arrhythmias Status: Acute Assessment and Plan: Initial EKG shows possible two-to-one AV block. Subsequent EKG difficult to interpret because of the tracing quality. On telemetry she appears to have intermittent 2-1 block and junctional rhythm with nonconducted PACs. In setting of septic shock, acute renal failure. Hold Amiodarone, Coreg. Allow for washout. Continue dopamine drip at current rate for now. Will allow beta-naomi and amiodarone to wash out then attempt to wean dopamine. If her heart rate/rhythm remains slow/irregular with a sufficient washout period for amiodarone and Coreg, she may require implantation of permanent pacemaker. She would require transfer to a tertiary care center for pacemaker placement. TSH is normal Keep electrolytes optimized (2) Elevated troponin: Code(s): R79.89 - Other specified abnormal findings of blood chemistry Status: Acute Assessment and Plan: Very mildly elevated and trended down. She denies any chest pain. Mild troponin leak does not represent ACS in this situation; probably secondary to hypotension, acute kidney injury. (3) Chronic anticoagulation: Code(s): Z79.01 - correction (current) use of anticoagulants Status: Acute Assessment and Plan: Continue Eliquis for cardioembolic risk reduction with atrial flutter. Unsure of her baseline renal function is, however, if renal function improves her apixaban dose should be increased to 5 mg PO BID (4) Acute renal failure: Qualifiers: Acute renal failure type: unspecified Qualified Code(s): N17.9 - Acute kidney failure, unspecified Code(s): N17.9 - Acute kidney failure, unspecified Status: Acute Assessment and Plan: Secondary to right staghorn calculus of the kidney. Status post cystoscopy and stent placement. Creatinine is improving. (5) Septic shock: Code(s): A41.9 - Sepsis, unspecified organism; R65.21 - Severe sepsis with septic shock Status: Acute Assessment and Plan: Blood cultures growing Gram negative bacili. Management as per ICU team. Plan Recommendations and plan discussed with Risk And Compliance Analytics Director. Subjective Date/time seen: 08/08/24 12:56 Interval history: Reason for visit: Bradycardia HPI: Lupis Juarez is a 79-year-old female with atrial flutter, history of takotsubo cardiomyopathy, and valvular heart disease. This is a patient who is followed by [facility] in [place]. She comes to [facility] because of generalized weakness. Cardiology is consulted because of bradycardia. At the time of my evaluation, patient is having significant pain, stating that she feels that she has to urinate but is unable to and is unable to provide much of a history. She is however able to tell me that prior to admission to the hospital she had not experienced any syncope, presyncope, chest pain, or shortness of breath. She does have occasional lightheadedness and dizziness. Because of hypotension and heart rates in the 40s on arrival to the hospital, she was placed on a dopamine drip and her hemodynamics have stabilized. Date of service 08/08: Tele with heart rates in the 60s-70s. Appears to be junctional to me. Remains on Dopamine. Blood cultures are growing Gram negative bacilli. Review of Systems Review of Systems: All systems reviewed & are unremarkable except as noted in HPI and below (HPI) Exam Const: Other: Ill appearing female in no acute distress HENMT: Mouth: Yes dry mucous membranes Eyes: General: appearance normal, both eyes and all related structures Sclera: sclerae normal Resp: Effort & Inspection: normal respiratory effort Cardio: Rate: regular rate Rhythm: abnormal rhythm (Irregular rhythm) Neuro: Speech: normal speech Psych: Mental Status: mental status grossly normal Affect: normal affect Objective Data Vital Signs Vital Signs: Vital Signs - 24 hr 08/07/24 14:00 08/07/24 14:00 08/07/24 14:51 Temperature Pulse Rate 66 66 69 Respiratory Rate Blood Pressure 132/77 117/73 Pulse Oximetry Oxygen Delivery Oxygen Flow Rate 08/07/24 14:51 08/07/24 16:00 08/07/24 16:00 Temperature Pulse Rate 66 65 70 Respiratory Rate 23 H Blood Pressure 117/73 103/62 Pulse Oximetry 97 Oxygen Delivery Nasal Cannula Oxygen Flow Rate 2 08/07/24 16:00 08/07/24 18:00 08/07/24 20:00 Temperature Pulse Rate 65 65 70 Respiratory Rate Blood Pressure 90/70 L Pulse Oximetry Oxygen Delivery Oxygen Flow Rate 08/07/24 20:00 08/07/24 20:00 08/07/24 20:49 Temperature 36.7 C Pulse Rate 68 68 Respiratory Rate 27 H 26 H Blood Pressure 99/68 L Pulse Oximetry 99 97 Oxygen Delivery Nasal Cannula Oxygen Flow Rate 2 08/07/24 21:00 08/07/24 21:20 08/07/24 21:51 Temperature Pulse Rate 68 68 70 Respiratory Rate Blood Pressure 78/58 L 83/54 L 97/48 L Pulse Oximetry Oxygen Delivery Oxygen Flow Rate 08/07/24 21:51 08/07/24 22:00 08/07/24 22:00 Temperature Pulse Rate 70 68 68 Respiratory Rate Blood Pressure 97/48 L 108/78 Pulse Oximetry Oxygen Delivery Oxygen Flow Rate 08/07/24 22:00 08/08/24 00:00 08/08/24 00:00 Temperature 36.7 C 36.7 C Pulse Rate 68 69 Respiratory Rate 26 H 17 22 H Blood Pressure 108/78 95/63 L Pulse Oximetry 100 99 98 Oxygen Delivery Nasal Cannula Oxygen Flow Rate 2 08/08/24 00:00 08/08/24 00:00 08/08/24 02:00 Temperature Pulse Rate 69 71 69 Respiratory Rate Blood Pressure 98/56 L 111/72 Pulse Oximetry Oxygen Delivery Oxygen Flow Rate 08/08/24 02:00 08/08/24 02:00 08/08/24 03:41 Temperature 36.7 C Pulse Rate 69 69 71 Respiratory Rate 19 Blood Pressure 111/72 111/70 Pulse Oximetry 98 Oxygen Delivery Oxygen Flow Rate 08/08/24 03:41 08/08/24 04:00 08/08/24 04:00 Temperature Pulse Rate 71 68 Respiratory Rate 24 H Blood Pressure 111/70 Pulse Oximetry 98 Oxygen Delivery Nasal Cannula Oxygen Flow Rate 2 08/08/24 04:00 08/08/24 04:00 08/08/24 05:26 Temperature 36.6 C Pulse Rate 68 68 69 Respiratory Rate 22 H Blood Pressure 98/66 L 98/66 L 98/72 L Pulse Oximetry 98 Oxygen Delivery Oxygen Flow Rate 08/08/24 06:00 08/08/24 06:00 08/08/24 06:00 Temperature 36.6 C Pulse Rate 68 68 68 Respiratory Rate 23 H Blood Pressure 83/59 L 83/59 L Pulse Oximetry 97 Oxygen Delivery Oxygen Flow Rate 08/08/24 08:04 08/08/24 08:34 08/08/24 08:35 Temperature Pulse Rate 70 71 Respiratory Rate Blood Pressure 93/64 L 90/78 L Pulse Oximetry 97 Oxygen Delivery Nasal Cannula Oxygen Flow Rate 2 08/08/24 09:06 08/08/24 09:21 08/08/24 10:11 Temperature Pulse Rate 70 73 68 Respiratory Rate Blood Pressure 67/45 L 94/58 L 87/69 L Pulse Oximetry Oxygen Delivery Oxygen Flow Rate 08/08/24 10:22 08/08/24 10:41 08/08/24 11:00 Temperature Pulse Rate 68 68 70 Respiratory Rate Blood Pressure 73/55 L 73/55 L 96/72 L Pulse Oximetry Oxygen Delivery Oxygen Flow Rate 08/08/24 11:18 08/08/24 11:35 Temperature Pulse Rate 72 72 Respiratory Rate Blood Pressure 116/92 H 106/96 H Pulse Oximetry Oxygen Delivery Oxygen Flow Rate Intake/Output Intake/Output: Intake & Output 08/05/24 08/06/24 08/07/24 08/08/24 23:59 23:59 23:59 23:59 Intake Total 4650 1076.0 735.1 Output Total 980 850 Balance 4650 96.0 -114.9 Meds/Results Medications: Active Medications Generic Name Dose Route Start Last Admin Trade Name Freq PRN Reason Stop Dose Admin Acetaminophen 650 mg 08/06/24 21:36 Acetaminophen 325 Mg Tablet PO Q4H PRN Mild Pain (1-3) or Fever Hydrocodone Bitart/Acetaminophen 1 tab 08/07/24 15:27 08/08/24 05:26 Hydrocodone/Acetaminophen (*Crx) 5-325 Mg Tablet PO 1 tab Q6H PRN Administration Pain Rated 4-6 Apixaban 2.5 mg 08/07/24 09:00 Apixaban 2.5 Mg Tablet PO Q12HR SAL Bisacodyl 10 mg 08/08/24 09:00 08/08/24 09:11 Bisacodyl 10 Mg Suppository RECTAL 10 mg QAM SAL Administration Bupropion HCl 150 mg 08/07/24 09:00 08/08/24 09:10 Bupropion Hcl Sr (12 Hr) 150 Mg Tab PO 150 mg Q12HR SAL Administration Fentanyl Citrate 25 mcg 08/07/24 11:08 Fentanyl Citrate Inj (*Crx) 100 Mcg/2 Ml Vial IV PUSH Q2M PRN Pain Fluoxetine HCl 20 mg 08/07/24 09:00 08/08/24 09:11 Fluoxetine Hcl 20 Mg Capsule PO 20 mg DAILY SAL Administration Fluticasone Propionate 1 spray 08/07/24 09:00 08/08/24 09:12 Fluticasone Propionate 0.05% Na Spr 16 Gm Btl (*Bkc) NASAL 1 spray DAILY SAL Administration Dopamine HCl/Dextrose 400 mg in 250 mls @ 28.031 mls/hr 08/07/24 03:15 08/08/24 11:35 Dopamine 400 Mg/D5w 250 Ml IV CONT 6.5 mcg/kg/min .Q8H56M SAL 28.03 mls/hr Titration Protocol 6.5 MCG/KG/MIN Albumin Human 100 mls @ 60 mls/hr 08/08/24 12:00 08/08/24 11:27 Albutein IVPB 08/09/24 11:59 60 mls/hr Q6HR SAL Administration Cefepime HCl 1 gm in 50 mls @ 100 mls/hr 08/08/24 11:30 08/08/24 11:15 Maxipime 1 Gm/Ns 50 Ml IVPB 100 mls/hr Q12HR SAL Administration Loratadine 10 mg 08/07/24 09:00 08/07/24 10:10 Loratadine 10 Mg Tablet PO Not Given DAILY SAL Ondansetron HCl 4 mg 08/06/24 21:36 Ondansetron Inj 4 Mg/2 Ml Vial IV PUSH Q4H PRN Nausea Ondansetron HCl 4 mg 08/07/24 11:08 Ondansetron Inj 4 Mg/2 Ml Vial IV PUSH ONCE PRN Nausea Pantoprazole Sodium 40 mg 08/08/24 09:00 08/08/24 09:10 Pantoprazole Sodium Iv 40 Mg Vial IV PUSH 40 mg QAM SAL Administration Polyethylene Glycol 17 gm 08/08/24 09:00 08/08/24 09:11 Polyethylene Glycol 3350 17 Gm Powd.Pack PO Not Given QAM SAL Sodium Chloride 10 ml 08/07/24 06:00 08/08/24 05:28 Central Line Flush IV PUSH 10 ml Q8HR SAL Administration Sodium Chloride 20 ml 08/07/24 02:32 Central Line Flush IV PUSH PRN PRN after blood draws Topiramate 25 mg 08/07/24 09:00 08/08/24 09:10 Topiramate 25 Mg Tablet PO 25 mg Q12HR SAL Administration Radiology Results: ITS Impressions Abdomen Ultrasound 08/06/24 20:18 IMPRESSION: Single lamellated stone within the gallbladder with a sonographic Berry sign. Chest/Abdomen/Pelvis CT 08/06/24 20:22 IMPRESSION: Findings within the chest suggesting pulmonary hypertension. Staghorn calculus within the right kidney with global enlargement of the right kidney and surrounding inflammatory change. Lamellated stone within the gallbladder without additional abnormality. Punctate foci of air within the bladder with surrounding inflammatory change suggesting cystitis. Fibroid uterus, enlarged for a patient of this age. Nonobstructing fat-containing umbilical hernia. 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 Chest X-Ray 08/07/24 05:19 Impression: Right IJ line in place. Clear lungs. Retrograde Pyelogram 08/07/24 12:44 IMPRESSION: 1. Right internal ureteral stent in expected position. Renal Ultrasound 08/07/24 15:17 IMPRESSION: No definite abnormality seen. Labs Labs: Laboratory Results - last 24 hr 08/06/24 08/07/24 08/07/24 18:13 12:56 17:30 WBC RBC Hgb Hct MCV MCH MCHC RDW Plt Count MPV Sodium Potassium Chloride Carbon Dioxide Anion Gap BUN Creatinine Estim Creat Clear Calc Estimated GFR Glucose POC Capillary Glucose 122 H Lactic Acid Calcium Phosphorus Magnesium Total Bilirubin AST ALT Alkaline Phosphatase Total Creatine Kinase Total Protein Albumin Urine Eosinophils None seen U Random Total Protein 154 Ur Random Sodium Ur Random Urea Urine Total Volume Urine Creatinine Protein/Creat Ratio 2 Vancomycin Trough C. difficile (PCR) Cancelled Hep Bs Antigen Hep Bs Antibody 08/07/24 08/07/24 08/07/24 17:30 17:30 20:30 WBC RBC Hgb Hct MCV MCH MCHC RDW Plt Count MPV Sodium Potassium Chloride Carbon Dioxide Anion Gap BUN Creatinine Estim Creat Clear Calc Estimated GFR Glucose POC Capillary Glucose Lactic Acid Calcium Phosphorus Magnesium Total Bilirubin AST ALT Alkaline Phosphatase Total Creatine Kinase Total Protein Albumin Urine Eosinophils U Random Total Protein Cancelled Ur Random Sodium 55 Ur Random Urea 546 Urine Total Volume Cancelled Urine Creatinine 44.7 Cancelled Protein/Creat Ratio 2 3.45 H Vancomycin Trough 13.0 C. difficile (PCR) Hep Bs Antigen Hep Bs Antibody 08/08/24 08/08/24 05:32 09:04 WBC 23.0 H RBC 4.42 Hgb 14.4 Hct 40.9 MCV 92.5 MCH 32.6 MCHC 35.2 RDW 14.3 Plt Count 372 MPV 9.2 Sodium 136 L Potassium 3.7 Chloride 107 Carbon Dioxide 22 Anion Gap 7 BUN 50 H D Creatinine 1.89 H Estim Creat Clear Calc 27 Estimated GFR 26 L Glucose 124 H POC Capillary Glucose Lactic Acid 1.4 Calcium 8.4 Phosphorus 3.8 Magnesium 1.9 Total Bilirubin 2.0 H AST 306 H ALT 285 H Alkaline Phosphatase 172 H Total Creatine Kinase 25 L Total Protein 6.0 L Albumin 2.6 L Urine Eosinophils U Random Total Protein Ur Random Sodium Ur Random Urea Urine Total Volume Urine Creatinine Protein/Creat Ratio 2 Vancomycin Trough C. difficile (PCR) Hep Bs Antigen Negative Hep Bs Antibody Negative
--- NOTE | 2024-08-08 13:53 | PM.PNGS ---
Subjective Subjective Date/Time Seen: 08/08/24 13:53 Objective Data Vital Signs Vital Signs: Vital Signs - 24 hr 08/07/24 14:00 08/07/24 14:00 08/07/24 14:51 Temperature Pulse Rate 66 66 69 Respiratory Rate Blood Pressure 132/77 117/73 Pulse Oximetry Oxygen Delivery Oxygen Flow Rate 08/07/24 14:51 08/07/24 16:00 08/07/24 16:00 Temperature Pulse Rate 66 65 70 Respiratory Rate 23 H Blood Pressure 117/73 103/62 Pulse Oximetry 97 Oxygen Delivery Nasal Cannula Oxygen Flow Rate 2 08/07/24 16:00 08/07/24 18:00 08/07/24 20:00 Temperature Pulse Rate 65 65 70 Respiratory Rate Blood Pressure 90/70 L Pulse Oximetry Oxygen Delivery Oxygen Flow Rate 08/07/24 20:00 08/07/24 20:00 08/07/24 20:49 Temperature 98.1 F Pulse Rate 68 68 Respiratory Rate 27 H 26 H Blood Pressure 99/68 L Pulse Oximetry 99 97 Oxygen Delivery Nasal Cannula Oxygen Flow Rate 2 08/07/24 21:00 08/07/24 21:20 08/07/24 21:51 Temperature Pulse Rate 68 68 70 Respiratory Rate Blood Pressure 78/58 L 83/54 L 97/48 L Pulse Oximetry Oxygen Delivery Oxygen Flow Rate 08/07/24 21:51 08/07/24 22:00 08/07/24 22:00 Temperature Pulse Rate 70 68 68 Respiratory Rate Blood Pressure 97/48 L 108/78 Pulse Oximetry Oxygen Delivery Oxygen Flow Rate 08/07/24 22:00 08/08/24 00:00 08/08/24 00:00 Temperature 98.1 F 98.1 F Pulse Rate 68 69 Respiratory Rate 26 H 17 22 H Blood Pressure 108/78 95/63 L Pulse Oximetry 100 99 98 Oxygen Delivery Nasal Cannula Oxygen Flow Rate 2 08/08/24 00:00 08/08/24 00:00 08/08/24 02:00 Temperature Pulse Rate 69 71 69 Respiratory Rate Blood Pressure 98/56 L 111/72 Pulse Oximetry Oxygen Delivery Oxygen Flow Rate 08/08/24 02:00 08/08/24 02:00 08/08/24 03:41 Temperature 98.1 F Pulse Rate 69 69 71 Respiratory Rate 19 Blood Pressure 111/72 111/70 Pulse Oximetry 98 Oxygen Delivery Oxygen Flow Rate 08/08/24 03:41 08/08/24 04:00 08/08/24 04:00 Temperature Pulse Rate 71 68 Respiratory Rate 24 H Blood Pressure 111/70 Pulse Oximetry 98 Oxygen Delivery Nasal Cannula Oxygen Flow Rate 2 08/08/24 04:00 08/08/24 04:00 08/08/24 05:26 Temperature 98 F Pulse Rate 68 68 69 Respiratory Rate 22 H Blood Pressure 98/66 L 98/66 L 98/72 L Pulse Oximetry 98 Oxygen Delivery Oxygen Flow Rate 08/08/24 06:00 08/08/24 06:00 08/08/24 06:00 Temperature 98 F Pulse Rate 68 68 68 Respiratory Rate 23 H Blood Pressure 83/59 L 83/59 L Pulse Oximetry 97 Oxygen Delivery Oxygen Flow Rate 08/08/24 08:00 08/08/24 08:00 08/08/24 08:04 Temperature 97.8 F Pulse Rate 67 69 70 Respiratory Rate 16 Blood Pressure 93/64 L 93/64 L Pulse Oximetry 98 Oxygen Delivery Oxygen Flow Rate 08/08/24 08:34 08/08/24 08:35 08/08/24 09:06 Temperature Pulse Rate 71 70 Respiratory Rate Blood Pressure 90/78 L 67/45 L Pulse Oximetry 97 Oxygen Delivery Nasal Cannula Oxygen Flow Rate 2 08/08/24 09:21 08/08/24 10:00 08/08/24 10:00 Temperature 98.1 F Pulse Rate 73 68 68 Respiratory Rate 24 H Blood Pressure 94/58 L 89/69 L Pulse Oximetry 97 Oxygen Delivery Oxygen Flow Rate 08/08/24 10:11 08/08/24 10:22 08/08/24 10:41 Temperature Pulse Rate 68 68 68 Respiratory Rate Blood Pressure 87/69 L 73/55 L 73/55 L Pulse Oximetry Oxygen Delivery Oxygen Flow Rate 08/08/24 11:00 08/08/24 11:18 08/08/24 11:35 Temperature Pulse Rate 70 72 72 Respiratory Rate Blood Pressure 96/72 L 116/92 H 106/96 H Pulse Oximetry Oxygen Delivery Oxygen Flow Rate 08/08/24 11:51 08/08/24 12:00 08/08/24 13:20 Temperature Pulse Rate 71 71 69 Respiratory Rate Blood Pressure 118/103 H 98/63 L 103/90 Pulse Oximetry Oxygen Delivery Oxygen Flow Rate Intake/Output Intake/Output: Intake & Output 08/05/24 08/06/24 08/07/24 08/08/24 23:59 23:59 23:59 23:59 Intake Total 4650 1076.0 1091.7 Output Total 980 850 Balance 4650 96.0 241.7 Meds/Results Medications: Active Medications Generic Name Dose Route Start Last Admin Trade Name Freq PRN Reason Stop Dose Admin Acetaminophen 650 mg 08/06/24 21:36 Acetaminophen 325 Mg Tablet PO Q4H PRN Mild Pain (1-3) or Fever Hydrocodone Bitart/Acetaminophen 1 tab 08/07/24 15:27 08/08/24 05:26 Hydrocodone/Acetaminophen (*Crx) 5-325 Mg Tablet PO 1 tab Q6H PRN Administration Pain Rated 4-6 Apixaban 2.5 mg 08/07/24 09:00 Apixaban 2.5 Mg Tablet PO Q12HR SAL Bisacodyl 10 mg 08/08/24 09:00 08/08/24 09:11 Bisacodyl 10 Mg Suppository RECTAL 10 mg QAM SAL Administration Bupropion HCl 150 mg 08/07/24 09:00 08/08/24 09:10 Bupropion Hcl Sr (12 Hr) 150 Mg Tab PO 150 mg Q12HR SAL Administration Fentanyl Citrate 25 mcg 08/07/24 11:08 Fentanyl Citrate Inj (*Crx) 100 Mcg/2 Ml Vial IV PUSH Q2M PRN Pain Fluoxetine HCl 20 mg 08/07/24 09:00 08/08/24 09:11 Fluoxetine Hcl 20 Mg Capsule PO 20 mg DAILY SAL Administration Fluticasone Propionate 1 spray 08/07/24 09:00 08/08/24 09:12 Fluticasone Propionate 0.05% Na Spr 16 Gm Btl (*Bkc) NASAL 1 spray DAILY SAL Administration Dopamine HCl/Dextrose 400 mg in 250 mls @ 21.563 mls/hr 08/07/24 03:15 08/08/24 13:20 Dopamine 400 Mg/D5w 250 Ml IV CONT 5 mcg/kg/min .[id number] SAL 21.56 mls/hr Titration Protocol 5 MCG/KG/MIN Albumin Human 100 mls @ 60 mls/hr 08/08/24 12:00 08/08/24 13:08 Albutein IVPB 08/09/24 11:59 Infused Q6HR SAL Infusion Cefepime HCl 1 gm in 50 mls @ 100 mls/hr 08/08/24 11:30 08/08/24 11:45 Maxipime 1 Gm/Ns 50 Ml IVPB Infused Q12HR SAL Infusion Loratadine 10 mg 08/07/24 09:00 08/07/24 10:10 Loratadine 10 Mg Tablet PO Not Given DAILY SAL Ondansetron HCl 4 mg 08/06/24 21:36 Ondansetron Inj 4 Mg/2 Ml Vial IV PUSH Q4H PRN Nausea Ondansetron HCl 4 mg 08/07/24 11:08 Ondansetron Inj 4 Mg/2 Ml Vial IV PUSH ONCE PRN Nausea Pantoprazole Sodium 40 mg 08/08/24 09:00 08/08/24 09:10 Pantoprazole Sodium Iv 40 Mg Vial IV PUSH 40 mg QAM SAL Administration Polyethylene Glycol 17 gm 08/08/24 09:00 08/08/24 09:11 Polyethylene Glycol 3350 17 Gm Powd.Pack PO Not Given QAM SAL Sodium Chloride 10 ml 08/07/24 06:00 08/08/24 05:28 Central Line Flush IV PUSH 10 ml Q8HR SAL Administration Sodium Chloride 20 ml 08/07/24 02:32 Central Line Flush IV PUSH PRN PRN after blood draws Topiramate 25 mg 08/07/24 09:00 08/08/24 09:10 Topiramate 25 Mg Tablet PO 25 mg Q12HR SAL Administration Radiology Results: ITS Impressions Abdomen Ultrasound 08/06/24 20:18 IMPRESSION: Single lamellated stone within the gallbladder with a sonographic Berry sign. Chest/Abdomen/Pelvis CT 08/06/24 20:22 IMPRESSION: Findings within the chest suggesting pulmonary hypertension. Staghorn calculus within the right kidney with global enlargement of the right kidney and surrounding inflammatory change. Lamellated stone within the gallbladder without additional abnormality. Punctate foci of air within the bladder with surrounding inflammatory change suggesting cystitis. Fibroid uterus, enlarged for a patient of this age. Nonobstructing fat-containing umbilical hernia. 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 Chest X-Ray 08/07/24 05:19 Impression: Right IJ line in place. Clear lungs. Retrograde Pyelogram 08/07/24 12:44 IMPRESSION: 1. Right internal ureteral stent in expected position. Renal Ultrasound 08/07/24 15:17 IMPRESSION: No definite abnormality seen. Labs Labs: Laboratory Results - last 24 hr 08/06/24 08/07/24 08/07/24 18:13 17:30 17:30 WBC RBC Hgb Hct MCV MCH MCHC RDW Plt Count MPV Sodium Potassium Chloride Carbon Dioxide Anion Gap BUN Creatinine Estim Creat Clear Calc Estimated GFR Glucose Lactic Acid Calcium Phosphorus Magnesium Total Bilirubin AST ALT Alkaline Phosphatase Total Creatine Kinase Total Protein Albumin Urine Eosinophils None seen U Random Total Protein 154 Cancelled Ur Random Sodium 55 Ur Random Urea 546 Urine Total Volume Cancelled Urine Creatinine 44.7 Protein/Creat Ratio 2 Vancomycin Trough C. difficile (PCR) Cancelled Hep Bs Antigen Hep Bs Antibody 08/07/24 08/07/24 08/08/24 17:30 20:30 05:32 WBC RBC Hgb Hct MCV MCH MCHC RDW Plt Count MPV Sodium 136 L Potassium 3.7 Chloride 107 Carbon Dioxide 22 Anion Gap 7 BUN 50 H D Creatinine 1.89 H Estim Creat Clear Calc 27 Estimated GFR 26 L Glucose 124 H Lactic Acid 1.4 Calcium 8.4 Phosphorus 3.8 Magnesium 1.9 Total Bilirubin 2.0 H AST 306 H ALT 285 H Alkaline Phosphatase 172 H Total Creatine Kinase 25 L Total Protein 6.0 L Albumin 2.6 L Urine Eosinophils U Random Total Protein Ur Random Sodium Ur Random Urea Urine Total Volume Urine Creatinine Cancelled Protein/Creat Ratio 2 3.45 H Vancomycin Trough 13.0 C. difficile (PCR) Hep Bs Antigen Negative Hep Bs Antibody Negative 08/08/24 09:04 WBC 23.0 H RBC 4.42 Hgb 14.4 Hct 40.9 MCV 92.5 MCH 32.6 MCHC 35.2 RDW 14.3 Plt Count 372 MPV 9.2 Sodium Potassium Chloride Carbon Dioxide Anion Gap BUN Creatinine Estim Creat Clear Calc Estimated GFR Glucose Lactic Acid Calcium Phosphorus Magnesium Total Bilirubin AST ALT Alkaline Phosphatase Total Creatine Kinase Total Protein Albumin Urine Eosinophils U Random Total Protein Ur Random Sodium Ur Random Urea Urine Total Volume Urine Creatinine Protein/Creat Ratio 2 Vancomycin Trough C. difficile (PCR) Hep Bs Antigen Hep Bs Antibody
--- NOTE | 2024-08-08 13:58 | PCPTNOTE ---
bed rest orders were removed. PT evaluation completed.
--- NOTE | 2024-08-08 14:22 | WPDANESPN ---
Anes - Prog Note Post-Op Date/Time: 08/08/24 14:22 Cardiovascular status: other (afib, cardiology involved) Respiratory status: normal Airway patency: baseline Mental status: baseline Post-Op hydration status: other Vital Signs: Last Vital Signs Temp 98.2 F 08/08/24 14:00 Pulse 58 L 08/08/24 14:00 Resp 26 H 08/08/24 14:00 BP 107/80 08/08/24 14:00 Pulse Ox 97 08/08/24 14:00 O2 Del Method Nasal Cannula 08/08/24 08:34 O2 Flow Rate 2 08/08/24 08:34 Pain Score (VAS): 410 I/O: Intake & Output 08/07/24 08/08/24 08/08/24 23:59 07:59 15:59 Intake Total 663.9 531.0 675.1 Output Total 980 850 Balance -316.1 -319.0 675.1 Laboratory Tests 08/08/24 09:04 08/08/24 05:32 08/06/24 08/07/24 08/07/24 18:13 17:30 17:30 WBC RBC Hgb Hct MCV MCH MCHC RDW Plt Count MPV Sodium Potassium Chloride Carbon Dioxide Anion Gap BUN Creatinine Estim Creat Clear Calc Estimated GFR Glucose Lactic Acid Calcium Phosphorus Magnesium Total Bilirubin AST ALT Alkaline Phosphatase Total Creatine Kinase Total Protein Albumin Urine Eosinophils None seen Ur Random Creatinine Pending U Random Total Protein 154 Cancelled Ur Random Sodium Ur Random Urea Urine Total Volume Urine Creatinine Protein/Creatinin Ratio Protein/Creat Ratio 2 Urine Albumin U Cgnhp-5-Daxdooii U Rjlap-0-Xrbmmidt U Beta Globulin U Gamma Globulin U Abnormal Prot Band 1 U Abnormal Prot Band 2 U Abnormal Prot Band 3 Urine PEP Interpret Vancomycin Trough C. difficile (PCR) Cancelled Hep Bs Antigen Hep Bs Antibody Hep B Core Total Ab 08/07/24 08/07/24 08/07/24 17:30 17:30 20:30 WBC RBC Hgb Hct MCV MCH MCHC RDW Plt Count MPV Sodium Potassium Chloride Carbon Dioxide Anion Gap BUN Creatinine Estim Creat Clear Calc Estimated GFR Glucose Lactic Acid Calcium Phosphorus Magnesium Total Bilirubin AST ALT Alkaline Phosphatase Total Creatine Kinase Total Protein Albumin Urine Eosinophils Ur Random Creatinine U Random Total Protein Pending Ur Random Sodium 55 Ur Random Urea 546 Urine Total Volume Cancelled Urine Creatinine 44.7 Cancelled Protein/Creatinin Ratio Pending Protein/Creat Ratio 2 3.45 H Urine Albumin Pending U Opaob-5-Crdepjxz Pending U Yxgec-0-Edqikprr Pending U Beta Globulin Pending U Gamma Globulin Pending U Abnormal Prot Band 1 Pending U Abnormal Prot Band 2 Pending U Abnormal Prot Band 3 Pending Urine PEP Interpret Pending Vancomycin Trough 13.0 C. difficile (PCR) Hep Bs Antigen Hep Bs Antibody Hep B Core Total Ab 08/08/24 08/08/24 05:32 09:04 WBC 23.0 H RBC 4.42 Hgb 14.4 Hct 40.9 MCV 92.5 MCH 32.6 MCHC 35.2 RDW 14.3 Plt Count 372 MPV 9.2 Sodium 136 L Potassium 3.7 Chloride 107 Carbon Dioxide 22 Anion Gap 7 BUN 50 H D Creatinine 1.89 H Estim Creat Clear Calc 27 Estimated GFR 26 L Glucose 124 H Lactic Acid 1.4 Calcium 8.4 Phosphorus 3.8 Magnesium 1.9 Total Bilirubin 2.0 H AST 306 H ALT 285 H Alkaline Phosphatase 172 H Total Creatine Kinase 25 L Total Protein 6.0 L Albumin 2.6 L Urine Eosinophils Ur Random Creatinine U Random Total Protein Ur Random Sodium Ur Random Urea Urine Total Volume Urine Creatinine Protein/Creatinin Ratio Protein/Creat Ratio 2 Urine Albumin U Caxpj-8-Nmjjykoq U Ifgpa-2-Cifamksm U Beta Globulin U Gamma Globulin U Abnormal Prot Band 1 U Abnormal Prot Band 2 U Abnormal Prot Band 3 Urine PEP Interpret Vancomycin Trough C. difficile (PCR) Hep Bs Antigen Negative Hep Bs Antibody Negative Hep B Core Total Ab Pending Microbiology 08/06/24 18:14 Blood Blood Culture - Preliminary Gram negative bacilli isolated 08/06/24 18:14 Blood Blood Culture - Preliminary Gram negative bacilli isolated Patient Feedback: Patient satisfied with anesthetic care.
--- NOTE | 2024-08-08 14:36 | P.PNUR_ITS ---
Progress Note: A&P Assessment and Plan (1) Staghorn calculus: Code(s): N20.0 - Calculus of kidney Status: Acute (2) Acute renal failure: Qualifiers: Acute renal failure type: unspecified Qualified Code(s): N17.9 - Acute kidney failure, unspecified Code(s): N17.9 - Acute kidney failure, unspecified Status: Acute Plan - Agree with broad spectrum antibiotics for bacteremia and suspected UTI - Plan for void trial prior to discharge when urine clears and out of ICU - Patient will require outpatient stone management when medically stable and after her infections clear, likely with percutaneous nephrolithotomy at a tertiary care center such as [facility] or [facility] given severity of her medical comorbidities. No additional urology interventions planned during this inpatient stay. Signing off. Please call with questions. Subjective Subjective Date/Time Seen: 08/08/24 14:36 Interval history: Remains in ICU. POD1 cystoscopy, right pyelogram, right ureteral stent placement, Stafford placement in the OR for right renal staghorn calculus. Blood cultures growing gram neg bacilli x2. Urine culture pending. Renal function continues to improve. She is more alert today. Patient voices no complaints. Comfortable on exam. Exam Narrative: Chronically ill-appearing. Comfortable on exam. Indwelling Stafford draining light red urine, no visible clots. Objective Data Vital Signs Vital Signs: Vital Signs - 24 hr 08/07/24 14:51 08/07/24 14:51 08/07/24 16:00 Temperature Pulse Rate 69 66 65 Respiratory Rate Blood Pressure 117/73 117/73 103/62 Pulse Oximetry Oxygen Delivery Oxygen Flow Rate 08/07/24 16:00 08/07/24 16:00 08/07/24 18:00 Temperature Pulse Rate 70 65 65 Respiratory Rate 23 H Blood Pressure Pulse Oximetry 97 Oxygen Delivery Nasal Cannula Oxygen Flow Rate 2 08/07/24 20:00 08/07/24 20:00 08/07/24 20:00 Temperature Pulse Rate 70 68 Respiratory Rate 27 H Blood Pressure 90/70 L Pulse Oximetry 99 Oxygen Delivery Nasal Cannula Oxygen Flow Rate 2 08/07/24 20:49 08/07/24 21:00 08/07/24 21:20 Temperature 98.1 F Pulse Rate 68 68 68 Respiratory Rate 26 H Blood Pressure 99/68 L 78/58 L 83/54 L Pulse Oximetry 97 Oxygen Delivery Oxygen Flow Rate 08/07/24 21:51 08/07/24 21:51 08/07/24 22:00 Temperature Pulse Rate 70 70 68 Respiratory Rate Blood Pressure 97/48 L 97/48 L 108/78 Pulse Oximetry Oxygen Delivery Oxygen Flow Rate 08/07/24 22:00 08/07/24 22:00 08/08/24 00:00 Temperature 98.1 F Pulse Rate 68 68 Respiratory Rate 26 H 17 Blood Pressure 108/78 Pulse Oximetry 100 99 Oxygen Delivery Nasal Cannula Oxygen Flow Rate 2 08/08/24 00:00 08/08/24 00:00 08/08/24 00:00 Temperature 98.1 F Pulse Rate 69 69 71 Respiratory Rate 22 H Blood Pressure 95/63 L 98/56 L Pulse Oximetry 98 Oxygen Delivery Oxygen Flow Rate 08/08/24 02:00 08/08/24 02:00 08/08/24 02:00 Temperature 98.1 F Pulse Rate 69 69 69 Respiratory Rate 19 Blood Pressure 111/72 111/72 Pulse Oximetry 98 Oxygen Delivery Oxygen Flow Rate 08/08/24 03:41 08/08/24 03:41 08/08/24 04:00 Temperature Pulse Rate 71 71 Respiratory Rate 24 H Blood Pressure 111/70 111/70 Pulse Oximetry 98 Oxygen Delivery Nasal Cannula Oxygen Flow Rate 2 08/08/24 04:00 08/08/24 04:00 08/08/24 04:00 Temperature 98 F Pulse Rate 68 68 68 Respiratory Rate 22 H Blood Pressure 98/66 L 98/66 L Pulse Oximetry 98 Oxygen Delivery Oxygen Flow Rate 08/08/24 05:26 08/08/24 06:00 08/08/24 06:00 Temperature 98 F Pulse Rate 69 68 68 Respiratory Rate 23 H Blood Pressure 98/72 L 83/59 L Pulse Oximetry 97 Oxygen Delivery Oxygen Flow Rate 08/08/24 06:00 08/08/24 08:00 08/08/24 08:00 Temperature 97.8 F Pulse Rate 68 67 69 Respiratory Rate 16 Blood Pressure 83/59 L 93/64 L Pulse Oximetry 98 Oxygen Delivery Oxygen Flow Rate 08/08/24 08:04 08/08/24 08:34 08/08/24 08:35 Temperature Pulse Rate 70 71 Respiratory Rate Blood Pressure 93/64 L 90/78 L Pulse Oximetry 97 Oxygen Delivery Nasal Cannula Oxygen Flow Rate 2 08/08/24 09:06 08/08/24 09:21 08/08/24 10:00 Temperature Pulse Rate 70 73 68 Respiratory Rate Blood Pressure 67/45 L 94/58 L Pulse Oximetry Oxygen Delivery Oxygen Flow Rate 08/08/24 10:00 08/08/24 10:11 08/08/24 10:22 Temperature 98.1 F Pulse Rate 68 68 68 Respiratory Rate 24 H Blood Pressure 89/69 L 87/69 L 73/55 L Pulse Oximetry 97 Oxygen Delivery Oxygen Flow Rate 08/08/24 10:41 08/08/24 11:00 08/08/24 11:18 Temperature Pulse Rate 68 70 72 Respiratory Rate Blood Pressure 73/55 L 96/72 L 116/92 H Pulse Oximetry Oxygen Delivery Oxygen Flow Rate 08/08/24 11:35 08/08/24 11:51 08/08/24 12:00 Temperature Pulse Rate 72 71 71 Respiratory Rate Blood Pressure 106/96 H 118/103 H 98/63 L Pulse Oximetry Oxygen Delivery Oxygen Flow Rate 08/08/24 12:00 08/08/24 12:00 08/08/24 13:20 Temperature 98.3 F Pulse Rate 71 69 69 Respiratory Rate 19 Blood Pressure 80/57 L 103/90 Pulse Oximetry 96 Oxygen Delivery Oxygen Flow Rate 08/08/24 13:35 08/08/24 14:00 08/08/24 14:00 Temperature Pulse Rate 68 58 L 58 L Respiratory Rate Blood Pressure 82/67 L 107/80 Pulse Oximetry Oxygen Delivery Oxygen Flow Rate 08/08/24 14:00 Temperature 98.2 F Pulse Rate 58 L Respiratory Rate 26 H Blood Pressure 107/80 Pulse Oximetry 97 Oxygen Delivery Oxygen Flow Rate Intake/Output Intake/Output: Intake & Output 08/05/24 08/06/24 08/07/24 08/08/24 23:59 23:59 23:59 23:59 Intake Total 4650 1076.0 1206.1 Output Total 980 850 Balance 4650 96.0 356.1 Meds/Results Medications: Active Medications Generic Name Dose Route Start Last Admin Trade Name Freq PRN Reason Stop Dose Admin Acetaminophen 650 mg 08/06/24 21:36 Acetaminophen 325 Mg Tablet PO Q4H PRN Mild Pain (1-3) or Fever Hydrocodone Bitart/Acetaminophen 1 tab 08/07/24 15:27 08/08/24 05:26 Hydrocodone/Acetaminophen (*Crx) 5-325 Mg Tablet PO 1 tab Q6H PRN Administration Pain Rated 4-6 Apixaban 2.5 mg 08/07/24 09:00 Apixaban 2.5 Mg Tablet PO Q12HR SAL Bisacodyl 10 mg 08/08/24 09:00 08/08/24 09:11 Bisacodyl 10 Mg Suppository RECTAL 10 mg QAM SAL Administration Bupropion HCl 150 mg 08/07/24 09:00 08/08/24 09:10 Bupropion Hcl Sr (12 Hr) 150 Mg Tab PO 150 mg Q12HR SAL Administration Fentanyl Citrate 25 mcg 08/07/24 11:08 Fentanyl Citrate Inj (*Crx) 100 Mcg/2 Ml Vial IV PUSH Q2M PRN Pain Fluoxetine HCl 20 mg 08/07/24 09:00 08/08/24 09:11 Fluoxetine Hcl 20 Mg Capsule PO 20 mg DAILY SAL Administration Fluticasone Propionate 1 spray 08/07/24 09:00 08/08/24 09:12 Fluticasone Propionate 0.05% Na Spr 16 Gm Btl (*Bkc) NASAL 1 spray DAILY SAL Administration Dopamine HCl/Dextrose 400 mg in 250 mls @ 21.563 mls/hr 08/07/24 03:15 08/08/24 14:00 Dopamine 400 Mg/D5w 250 Ml IV CONT 5 mcg/kg/min .[id number] SAL 21.56 mls/hr Titration Protocol 5 MCG/KG/MIN Albumin Human 100 mls @ 60 mls/hr 08/08/24 12:00 08/08/24 13:08 Albutein IVPB 08/09/24 11:59 Infused Q6HR SAL Infusion Cefepime HCl 1 gm in 50 mls @ 100 mls/hr 08/08/24 11:30 08/08/24 11:45 Maxipime 1 Gm/Ns 50 Ml IVPB Infused Q12HR SAL Infusion Loratadine 10 mg 08/07/24 09:00 08/07/24 10:10 Loratadine 10 Mg Tablet PO Not Given DAILY SAL Ondansetron HCl 4 mg 08/06/24 21:36 Ondansetron Inj 4 Mg/2 Ml Vial IV PUSH Q4H PRN Nausea Ondansetron HCl 4 mg 08/07/24 11:08 Ondansetron Inj 4 Mg/2 Ml Vial IV PUSH ONCE PRN Nausea Pantoprazole Sodium 40 mg 08/08/24 09:00 08/08/24 09:10 Pantoprazole Sodium Iv 40 Mg Vial IV PUSH 40 mg QAM SAL Administration Polyethylene Glycol 17 gm 08/08/24 09:00 08/08/24 09:11 Polyethylene Glycol 3350 17 Gm Powd.Pack PO Not Given QAM SAL Sodium Chloride 10 ml 08/07/24 06:00 08/08/24 05:28 Central Line Flush IV PUSH 10 ml Q8HR SAL Administration Sodium Chloride 20 ml 08/07/24 02:32 Central Line Flush IV PUSH PRN PRN after blood draws Topiramate 25 mg 08/07/24 09:00 08/08/24 09:10 Topiramate 25 Mg Tablet PO 25 mg Q12HR SAL Administration Radiology Results: ITS Impressions Abdomen Ultrasound 08/06/24 20:18 IMPRESSION: Single lamellated stone within the gallbladder with a sonographic Berry sign. Chest/Abdomen/Pelvis CT 08/06/24 20:22 IMPRESSION: Findings within the chest suggesting pulmonary hypertension. Staghorn calculus within the right kidney with global enlargement of the right kidney and surrounding inflammatory change. Lamellated stone within the gallbladder without additional abnormality. Punctate foci of air within the bladder with surrounding inflammatory change suggesting cystitis. Fibroid uterus, enlarged for a patient of this age. Nonobstructing fat-containing umbilical hernia. 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 Chest X-Ray 08/07/24 05:19 Impression: Right IJ line in place. Clear lungs. Retrograde Pyelogram 08/07/24 12:44 IMPRESSION: 1. Right internal ureteral stent in expected position. Renal Ultrasound 08/07/24 15:17 IMPRESSION: No definite abnormality seen. Labs Labs: Laboratory Results - last 24 hr 08/06/24 08/07/24 08/07/24 18:13 17:30 17:30 WBC RBC Hgb Hct MCV MCH MCHC RDW Plt Count MPV Sodium Potassium Chloride Carbon Dioxide Anion Gap BUN Creatinine Estim Creat Clear Calc Estimated GFR Glucose Lactic Acid Calcium Phosphorus Magnesium Total Bilirubin AST ALT Alkaline Phosphatase Total Creatine Kinase Total Protein Albumin Urine Eosinophils None seen U Random Total Protein 154 Cancelled Ur Random Sodium 55 Ur Random Urea 546 Urine Total Volume Cancelled Urine Creatinine 44.7 Protein/Creat Ratio 2 Vancomycin Trough C. difficile (PCR) Cancelled Hep Bs Antigen Hep Bs Antibody 08/07/24 08/07/24 08/08/24 17:30 20:30 05:32 WBC RBC Hgb Hct MCV MCH MCHC RDW Plt Count MPV Sodium 136 L Potassium 3.7 Chloride 107 Carbon Dioxide 22 Anion Gap 7 BUN 50 H D Creatinine 1.89 H Estim Creat Clear Calc 27 Estimated GFR 26 L Glucose 124 H Lactic Acid 1.4 Calcium 8.4 Phosphorus 3.8 Magnesium 1.9 Total Bilirubin 2.0 H AST 306 H ALT 285 H Alkaline Phosphatase 172 H Total Creatine Kinase 25 L Total Protein 6.0 L Albumin 2.6 L Urine Eosinophils U Random Total Protein Ur Random Sodium Ur Random Urea Urine Total Volume Urine Creatinine Cancelled Protein/Creat Ratio 2 3.45 H Vancomycin Trough 13.0 C. difficile (PCR) Hep Bs Antigen Negative Hep Bs Antibody Negative 08/08/24 09:04 WBC 23.0 H RBC 4.42 Hgb 14.4 Hct 40.9 MCV 92.5 MCH 32.6 MCHC 35.2 RDW 14.3 Plt Count 372 MPV 9.2 Sodium Potassium Chloride Carbon Dioxide Anion Gap BUN Creatinine Estim Creat Clear Calc Estimated GFR Glucose Lactic Acid Calcium Phosphorus Magnesium Total Bilirubin AST ALT Alkaline Phosphatase Total Creatine Kinase Total Protein Albumin Urine Eosinophils U Random Total Protein Ur Random Sodium Ur Random Urea Urine Total Volume Urine Creatinine Protein/Creat Ratio 2 Vancomycin Trough C. difficile (PCR) Hep Bs Antigen Hep Bs Antibody
[2024-08-08] MEDS: DOPamine 400 MG/D5W 250 ML 400 MG/250 ML BAG 43.13 MG IV CONT (19:51)
[2024-08-09] VITALS (22 sets, daily range): BP systolic 87–129; BP diastolic 30–86; PULSE 26–78; RESP 14–25; TEMP 36.5–37.1; O2SAT 91–100; BMI 10.0
[2024-08-09] MEDS: DOPamine 400 MG/D5W 250 ML 400 MG/250 ML BAG 32.34 MG IV CONT ×2 (01:26→09:20)
[2024-08-09] MEDS: HYDROcodone/acetaminophen (*CRX) 5-325 MG TABLET 1 TAB PO ×3 (01:29→20:47)
[2024-08-09 03:03] LABS: Creatinine, Random Urine 47 mg/dL (20-275); Total Prot/Creat ratio mg/mg 4.149 (0.024-0.184); Total Protein/Creatinine Ratio 4149 mg/g creat (24-184)
[2024-08-09] MEDS: ALBUMIN HUMAN 25% 25 GM/100 ML 100 ML IVPB (05:37)
[2024-08-09] MEDS: CENTRAL LINE FLUSH 10 ML IV PUSH ×3 (05:38→20:48)
[2024-08-09 06:10] LABS: Hemoglobin 11.7 g/dL (12.0-15.0); Mean Corpuscular HGB Conc 35.5 g/dl (32-36); Mean Corpuscular Hemoglobin 33.1 pg (26-34); Mean Corpuscular Volume 93.5 fl (80-100); Mean Platelet Volume 9.4 fl (7.4-10.4); Platelet Count Result 261 k/mm3 (150-375); Red Blood Count 3.53 M/mm3 (4.2-5.4); Red Cell Distribution Width 14.7 % (11.5-14.5); White Blood Count 15.6 K/mm3 (4.5-10.0)
[2024-08-09 06:14] LABS: Hepatitis B Core Ab Total NON-REACTIVE (NON-REACTIVE)
[2024-08-09 06:23] LABS: Alanine Aminotransferase 190 U/L (6-35); Albumin Level 2.8 g/dL (3.5-5.1); Alkaline Phosphatase 134 U/L (38-126); Anion Gap 6 mmol/L (4-12); Aspartate Amino Transferase 173 U/L (14-36); Bilirubin,Total 2.2 mg/dL (0.2-1.3); Blood Urea Nitrogen 45 mg/dL (7-17); Calcium 8.5 mg/dL (8.4-10.2); Carbon Dioxide 24 mmol/L (22-30); Chloride 107 mmol/L (98-107); Estimated CRCL calculation 33 ml/min; Estimated Glomerular Filt Rate 33; Glucose 96 mg/dL (65-110); Magnesium 1.8 mg/dL (1.6-2.3); Potassium 3.8 mmol/L (3.4-5.0); Sodium 137 mmol/L (137-145)
[2024-08-09] MEDS: CEFEPIME 1 GM/NS 50 ML 1 GM/50 ML BAG IVPB ×2 (08:55→20:48)
[2024-08-09] MEDS: buPROPion HCL SR (12 HR) 150 MG TAB PO ×2 (08:56→20:47)
[2024-08-09] MEDS: TOPIRAMATE 25 MG TABLET PO ×2 (08:56→20:47)
[2024-08-09] MEDS: polyethylene glycoL 3350 17 GM POWD.PACK PO (08:56)
[2024-08-09] MEDS: PANTOPRAZOLE SODIUM IV 40 MG VIAL IV PUSH (08:56)
[2024-08-09] MEDS: FLUoxetine HCL 20 MG CAPSULE PO (08:56)
[2024-08-09] MEDS: FLUTICASONE PROPIONATE 0.05% NA SPR 16 GM BTL (*BKC) 1 SPRAY NASAL (08:57)
[2024-08-09] MEDS: MAGNESIUM SULF 2 GM/WATER 50ML 2 GM/50 ML BAG IVPB (09:05)
--- NOTE | 2024-08-09 11:08 | P.PNINT_ITS ---
Progress Note: A&P Assessment and Plan (1) Septic shock: Code(s): A41.9 - Sepsis, unspecified organism; R65.21 - Severe sepsis with septic shock Status: Acute Assessment and Plan: 08/06: Patient presented with generalized weakness, hypovolemia, hypotension, leukocytosis, was found to be in septic shock, likely related to UTI, cholecystitis, hypovolemia -patient was adequately fluid resuscitated and is off of crystalloids -she received 25% albumin -lactic acid has normalized -central line was inserted in the right IJ -continue dopamine for bradycardia and hypotension, maintain MAP > 65 mmHg for adequate end organ perfusion and heart rate above 50 -08/06: Blood and urine cultures have been obtained -08/06: Blood cultures growing Proteus mirabilis -continue cefepime (08/06), but will off of vancomycin 08/06: RUQ ultrasound: Single lamellated stone within the gallbladder with a sonographic Berry sign. Surgery was consult (2) UTI (urinary tract infection): Qualifiers: Hematuria presence: with hematuria Urinary tract infection type: acute cystitis Qualified Code(s): N30.01 - Acute cystitis with hematuria Code(s): N39.0 - Urinary tract infection, site not specified Status: Acute Assessment and Plan: UTI could be related to staghorn calculus in the right kidney or cystitis -antibiotics as above (3) Staghorn calculus: Code(s): N20.0 - Calculus of kidney Status: Acute Assessment and Plan: 08/06: CT chest abdomen and pelvis: Findings within the chest suggesting pulmonary hypertension.Staghorn calculus within the right kidney with global enlargement of the right kidney and surrounding inflammatory change. Lamellated stone within the gallbladder without additional abnormality. Punctate foci of air within the bladder with surrounding inflammatory change suggesting cystitis. Fibroid uterus, enlarged for a patient of this age. Nonobstructing fat- containing umbilical hernia. 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 08/07 status post Cystoscopy, right retrograde, right ureteral stent placement 6 [place] contour, Stafford catheter placement (4) Bradyarrhythmia: Code(s): I49.8 - Other specified cardiac arrhythmias Status: Acute Assessment and Plan: Patient has Moreno cardia which appears to be junctional rhythm. Bradycardia could be related to hypovolemia, but continue to take her home medications amiodarone, Coreg -patient currently on dopamine for bradycardia and hypotension. Continue titrate -cardiology following -continue to hold amiodarone and AV annmarie blocking agents -may need pacemaker (5) Acute renal failure: Qualifiers: Acute renal failure type: unspecified Qualified Code(s): N17.9 - Acute kidney failure, unspecified Code(s): N17.9 - Acute kidney failure, unspecified Status: Acute Assessment and Plan: Acute renal failure likely related to hypovolemia, decreased oral intake, says septic shock/infection -patient received 3 L IV fluid bolus in the ER -start maintenance IV fluids for 1000 mL x1 -creatinine trending down, urine output improved -continue to monitor urine output, renal function electrolytes -nephrology was consulted from ER (6) Electrolyte imbalance: Code(s): E87.8 - Other disorders of electrolyte and fluid balance, not elsewhere classified Status: Acute Assessment and Plan: Replace potassium (7) Atrial fibrillation: Qualifiers: Atrial fibrillation type: paroxysmal Qualified Code(s): I48.0 - Paroxysmal atrial fibrillation Code(s): I48.91 - Unspecified atrial fibrillation Status: Acute Assessment and Plan: Patient has a history of atrial fibrillation on Eliquis at home -she also takes amiodarone and Coreg at home -currently bradycardic and hypotensive -continue to hold home medications -hold Eliquis as patient has cystoscopy and has hematuria (8) Cholelithiasis without cholecystitis: Code(s): K80.20 - Calculus of gallbladder without cholecystitis without obstruction Status: Acute Assessment and Plan: Ultrasound shows large single gallbladder stone. Radiologic Berry sign was positive. No other changes of cholecystitis or obstruction was seen. Patient was evaluated by general surgery and recommended conservative management at this time. No plan for surgical intervention (9) Transaminitis: Code(s): R74.01 - Elevation of levels of liver transaminase levels Status: Acute Assessment and Plan: Multifactorial. Improved Monitor. Plan DVT prophylaxis: Eliquis currently on hold due to hematuria Stress ulcer prophylaxis: Protonix Nutrition: Diet ordered Code Status: Do not resuscitate Consult PT OT Up in chair Incentive spirometer Critical Care Time Spent: 32 minutes Due to a high probability of clinically significant, life threatening deterioration, the patient required my highest level of preparedness to intervene emergently and I personally spent this critical care time directly and personally managing the patient. This critical care time included obtaining a history; examining the patient; pulse oximetry; ordering and review of studies; arranging urgent treatment with development of a management plan; evaluation of patient's response to treatment; frequent reassessment; and discussions with other providers. It was exclusive of separately billable procedures and treating other patients and teaching time. Please see Assessment and Plan section and the rest of the note for further information on patient assessment and treatment This dictation may have been done utilizing a voice recognition system. Attempts have been made to correct errors. However, there may be uncorrected grammatical, spelling, and recognitions errors present. Subjective Date/time seen: 08/09/24 Overnight events reviewed. Afebrile Continues to be on dopamine infusion but overall heart rate and blood pressure has improved. Patient continues to be in junctional rhythm Clinically she states she feels better and denies any specific complaints. Patient has been tolerating p.o. diet. Urine output has improved. Other Vitals acceptable Review of Systems Review of Systems: All systems reviewed & are unremarkable except as noted in HPI and below Exam Narrative: General: Pleasant female in no acute distress HEENT:? Pupils equal and reactive, sclera is clear, moist oral mucosa, some Neck:? Supple Respiratory:? Clear to auscultation bilaterally, decreased breath sounds at bases, adequate air entry, no wheeze Cardiac:? Sinus bradycardia Abdomen:? Soft, obese, tender to palpation around the umbilicus, normoactive bowel sounds Extremities:? Trace edema, palpable pedal pulses Neuro:? Patient is awake, alert, oriented to place, person, knew her date of and the year. She is slow to answer and hard of hearing but able to follow simple commands and answer questions Skin:? Warm and dry Psych:? Flat affect Objective Data Vital Signs Vital Signs: Vital Signs - 24 hr 08/08/24 11:18 08/08/24 11:35 08/08/24 11:51 Temperature Pulse Rate 72 72 71 Respiratory Rate Blood Pressure 116/92 H 106/96 H 118/103 H Pulse Oximetry Oxygen Delivery Oxygen Flow Rate 08/08/24 12:00 08/08/24 12:00 08/08/24 12:00 Temperature 36.8 C Pulse Rate 71 71 69 Respiratory Rate 19 Blood Pressure 98/63 L 80/57 L Pulse Oximetry 96 Oxygen Delivery Oxygen Flow Rate 08/08/24 13:20 08/08/24 13:35 08/08/24 14:00 Temperature Pulse Rate 69 68 58 L Respiratory Rate Blood Pressure 103/90 82/67 L 107/80 Pulse Oximetry Oxygen Delivery Oxygen Flow Rate 08/08/24 14:00 08/08/24 14:00 08/08/24 15:08 Temperature 36.8 C Pulse Rate 58 L 58 L Respiratory Rate 26 H Blood Pressure 107/80 Pulse Oximetry 97 Oxygen Delivery Nasal Cannula Oxygen Flow Rate 2 08/08/24 16:00 08/08/24 16:00 08/08/24 16:00 Temperature 36.8 C Pulse Rate 49 L 49 L 49 L Respiratory Rate 19 Blood Pressure 105/61 105/61 Pulse Oximetry 94 Oxygen Delivery Oxygen Flow Rate 08/08/24 18:15 08/08/24 18:15 08/08/24 18:15 Temperature 36.4 C Pulse Rate 61 61 61 Respiratory Rate 21 H Blood Pressure 110/69 110/69 Pulse Oximetry 95 Oxygen Delivery Oxygen Flow Rate 08/08/24 19:30 08/08/24 19:51 08/08/24 19:51 Temperature Pulse Rate 49 L 66 66 Respiratory Rate Blood Pressure 64/48 L 81/64 L 81/64 L Pulse Oximetry Oxygen Delivery Oxygen Flow Rate 08/08/24 20:00 08/08/24 20:00 08/08/24 20:00 Temperature 36.4 C Pulse Rate 66 66 66 Respiratory Rate 22 H Blood Pressure 82/63 L 81/64 L Pulse Oximetry 95 Oxygen Delivery Oxygen Flow Rate 08/08/24 20:00 08/08/24 22:00 08/08/24 22:00 Temperature Pulse Rate 64 64 Respiratory Rate Blood Pressure 107/71 Pulse Oximetry 98 Oxygen Delivery Nasal Cannula Oxygen Flow Rate 2 08/08/24 22:00 08/09/24 00:00 08/09/24 00:00 Temperature 36.2 C L Pulse Rate 64 65 65 Respiratory Rate 21 H Blood Pressure 107/71 129/67 Pulse Oximetry 99 Oxygen Delivery Oxygen Flow Rate 08/09/24 00:00 08/09/24 00:00 08/09/24 01:26 Temperature 36.5 C Pulse Rate 65 65 Respiratory Rate 24 H Blood Pressure 129/67 127/86 Pulse Oximetry 99 100 Oxygen Delivery Nasal Cannula Oxygen Flow Rate 2 08/09/24 01:26 08/09/24 02:00 08/09/24 02:00 Temperature Pulse Rate 65 58 L 58 L Respiratory Rate Blood Pressure 127/86 105/63 Pulse Oximetry Oxygen Delivery Oxygen Flow Rate 08/09/24 02:00 08/09/24 02:30 08/09/24 04:00 Temperature 36.6 C Pulse Rate 58 L 60 61 Respiratory Rate 23 H Blood Pressure 105/63 88/47 L 111/55 L Pulse Oximetry 98 Oxygen Delivery Oxygen Flow Rate 08/09/24 04:00 08/09/24 04:00 08/09/24 04:00 Temperature Pulse Rate 61 60 Respiratory Rate 22 H Blood Pressure 98/55 L Pulse Oximetry 98 Oxygen Delivery Room Air Oxygen Flow Rate 08/09/24 06:00 08/09/24 06:00 08/09/24 06:00 Temperature 36.6 C Pulse Rate 66 66 65 Respiratory Rate 23 H Blood Pressure 106/50 L 106/54 L Pulse Oximetry 93 Oxygen Delivery Oxygen Flow Rate 08/09/24 08:00 08/09/24 08:00 08/09/24 08:00 Temperature 36.6 C Pulse Rate 78 65 65 Respiratory Rate 14 14 Blood Pressure 96/65 L Pulse Oximetry 93 94 Oxygen Delivery Room Air Oxygen Flow Rate 08/09/24 09:20 08/09/24 09:20 08/09/24 10:00 Temperature Pulse Rate 64 64 63 Respiratory Rate Blood Pressure 91/59 L 91/59 L Pulse Oximetry Oxygen Delivery Oxygen Flow Rate 08/09/24 10:00 08/09/24 10:00 Temperature Pulse Rate 63 64 Respiratory Rate 25 H Blood Pressure 106/64 92/46 L Pulse Oximetry 92 Oxygen Delivery Oxygen Flow Rate Intake/Output Intake/Output: Intake & Output 08/06/24 08/07/24 08/08/24 08/09/24 23:59 23:59 23:59 23:59 Intake Total 4650 1076.0 1778.8 839.7 Output Total 980 1500 1000 Balance 4650 96.0 278.8 -160.3 Meds/Results Medications: Active Medications Generic Name Dose Route Start Last Admin Trade Name Freq PRN Reason Stop Dose Admin Acetaminophen 650 mg 08/06/24 21:36 Acetaminophen 325 Mg Tablet PO Q4H PRN Mild Pain (1-3) or Fever Hydrocodone Bitart/Acetaminophen 1 tab 08/07/24 15:27 08/09/24 01:29 Hydrocodone/Acetaminophen (*Crx) 5-325 Mg Tablet PO 1 tab Q6H PRN Administration Pain Rated 4-6 Apixaban 2.5 mg 08/07/24 09:00 Apixaban 2.5 Mg Tablet PO Q12HR SAL Bisacodyl 10 mg 08/08/24 09:00 08/09/24 09:09 Bisacodyl 10 Mg Suppository RECTAL Not Given QAM SAL Bupropion HCl 150 mg 08/07/24 09:00 08/09/24 08:56 Bupropion Hcl Sr (12 Hr) 150 Mg Tab PO 150 mg Q12HR SAL Administration Fluoxetine HCl 20 mg 08/07/24 09:00 08/09/24 08:56 Fluoxetine Hcl 20 Mg Capsule PO 20 mg DAILY SAL Administration Fluticasone Propionate 1 spray 08/07/24 09:00 08/09/24 08:57 Fluticasone Propionate 0.05% Na Spr 16 Gm Btl (*Bkc) NASAL 1 spray DAILY SAL Administration Dopamine HCl/Dextrose 400 mg in 250 mls @ 34.5 mls/hr 08/07/24 03:15 08/09/24 10:00 Dopamine 400 Mg/D5w 250 Ml IV CONT 8 mcg/kg/min .Q7H15M SAL 34.5 mls/hr Titration Protocol 8 MCG/KG/MIN Albumin Human 100 mls @ 60 mls/hr 08/08/24 12:00 08/09/24 05:37 Albutein IVPB 08/09/24 11:59 60 mls/hr Q6HR SAL Administration Cefepime HCl 1 gm in 50 mls @ 100 mls/hr 08/08/24 11:30 08/09/24 08:55 Maxipime 1 Gm/Ns 50 Ml IVPB 100 mls/hr Q12HR SAL Administration Loratadine 10 mg 08/07/24 09:00 08/07/24 10:10 Loratadine 10 Mg Tablet PO Not Given DAILY SAL Ondansetron HCl 4 mg 08/06/24 21:36 Ondansetron Inj 4 Mg/2 Ml Vial IV PUSH Q4H PRN Nausea Ondansetron HCl 4 mg 08/07/24 11:08 Ondansetron Inj 4 Mg/2 Ml Vial IV PUSH ONCE PRN Nausea Pantoprazole Sodium 40 mg 08/08/24 09:00 08/09/24 08:56 Pantoprazole Sodium Iv 40 Mg Vial IV PUSH 40 mg QAM SAL Administration Polyethylene Glycol 17 gm 08/08/24 09:00 08/09/24 08:56 Polyethylene Glycol 3350 17 Gm Powd.Pack PO 17 gm QAM SAL Administration Sodium Chloride 10 ml 08/07/24 06:00 08/09/24 05:38 Central Line Flush IV PUSH 10 ml Q8HR SAL Administration Sodium Chloride 20 ml 08/07/24 02:32 Central Line Flush IV PUSH PRN PRN after blood draws Topiramate 25 mg 08/07/24 09:00 08/09/24 08:56 Topiramate 25 Mg Tablet PO 25 mg Q12HR SAL Administration Radiology Results: ITS Impressions Abdomen Ultrasound 08/06/24 20:18 IMPRESSION: Single lamellated stone within the gallbladder with a sonographic Berry sign. Chest/Abdomen/Pelvis CT 08/06/24 20:22 IMPRESSION: Findings within the chest suggesting pulmonary hypertension. Staghorn calculus within the right kidney with global enlargement of the right kidney and surrounding inflammatory change. Lamellated stone within the gallbladder without additional abnormality. Punctate foci of air within the bladder with surrounding inflammatory change suggesting cystitis. Fibroid uterus, enlarged for a patient of this age. Nonobstructing fat-containing umbilical hernia. 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 Chest X-Ray 08/07/24 05:19 Impression: Right IJ line in place. Clear lungs. Retrograde Pyelogram 08/07/24 12:44 IMPRESSION: 1. Right internal ureteral stent in expected position. Renal Ultrasound 08/07/24 15:17 IMPRESSION: No definite abnormality seen. Labs Labs: Laboratory Results - last 24 hr 08/07/24 08/08/24 08/09/24 17:30 05:32 05:36 WBC 15.6 H RBC 3.53 L Hgb 11.7 L Hct 33.0 L MCV 93.5 MCH 33.1 MCHC 35.5 RDW 14.7 H Plt Count 261 MPV 9.4 Sodium 137 Potassium 3.8 Chloride 107 Carbon Dioxide 24 Anion Gap 6 BUN 45 H Creatinine 1.54 H Estim Creat Clear Calc 33 Estimated GFR 33 L Glucose 96 Calcium 8.5 Magnesium 1.8 Total Bilirubin 2.2 H AST 173 H ALT 190 H Alkaline Phosphatase 134 H Total Protein 6.0 L Albumin 2.8 L Ur Random Creatinine 47 U Random Total Protein 195 H Protein/Creatinin Ratio 4149 H Hep B Core Total Ab Non-reactive Quality VTE Prophylaxis VTE prophylaxis: mechanical ordered and pharmacologic ordered
--- NOTE | 2024-08-09 11:08 | PM.PNCARD ---
Progress Note: A&P Assessment and Plan (1) Bradyarrhythmia: Code(s): I49.8 - Other specified cardiac arrhythmias Status: Acute Assessment and Plan: Initial EKG shows possible two-to-one AV block. Subsequent EKG difficult to interpret because of the tracing quality. On telemetry she appears to have intermittent 2-1 block and junctional rhythm with nonconducted PACs. In setting of septic shock, acute renal failure. Hold Amiodarone, Coreg. Allow for washout. Continue dopamine drip at current rate for now. Will allow beta-naomi and amiodarone to wash out then attempt to wean dopamine. If her heart rate/rhythm remains slow/irregular with a sufficient washout period for amiodarone and Coreg, she may require implantation of permanent pacemaker. She would require transfer to a tertiary care center for pacemaker placement. TSH is normal Keep electrolytes optimized (2) Elevated troponin: Code(s): R79.89 - Other specified abnormal findings of blood chemistry Status: Acute Assessment and Plan: Very mildly elevated and trended down. She denies any chest pain. Mild troponin leak does not represent ACS in this situation; probably secondary to hypotension, acute kidney injury. (3) Chronic anticoagulation: Code(s): Z79.01 - care home (current) use of anticoagulants Status: Acute Assessment and Plan: Continue Eliquis for cardioembolic risk reduction with atrial flutter. Unsure of her baseline renal function is, however, if renal function improves her apixaban dose should be increased to 5 mg PO BID (4) Acute renal failure: Qualifiers: Acute renal failure type: unspecified Qualified Code(s): N17.9 - Acute kidney failure, unspecified Code(s): N17.9 - Acute kidney failure, unspecified Status: Acute Assessment and Plan: Secondary to right staghorn calculus of the kidney. Status post cystoscopy and stent placement. Creatinine is improving. (5) Septic shock: Code(s): A41.9 - Sepsis, unspecified organism; R65.21 - Severe sepsis with septic shock Status: Acute Assessment and Plan: Blood cultures growing Gram negative bacili. Management as per ICU team. Plan Recommendations and plan discussed with Radio Broadcaster. Subjective Date/time seen: 08/09/24 11:08 Interval history: Reason for visit: Bradycardia HPI: Lupis Juarez is a 79-year-old female with atrial flutter, history of takotsubo cardiomyopathy, and valvular heart disease. This is a patient who is followed by [facility] in [place]. She comes to [facility] because of generalized weakness. Cardiology is consulted because of bradycardia. At the time of my evaluation, patient is having significant pain, stating that she feels that she has to urinate but is unable to and is unable to provide much of a history. She is however able to tell me that prior to admission to the hospital she had not experienced any syncope, presyncope, chest pain, or shortness of breath. She does have occasional lightheadedness and dizziness. Because of hypotension and heart rates in the 40s on arrival to the hospital, she was placed on a dopamine drip and her hemodynamics have stabilized. Date of service 08/08: Tele with heart rates in the 60s-70s. Appears to be junctional to me. Remains on Dopamine. Blood cultures are growing Gram negative bacilli. Date of service 08/09/2024: Heart rate remains stable mostly in the 60's in what appears to be a junctional rhythm. She feels ok today, complains of some abdominal discomfort but is otherwise without any complaint. Review of Systems Review of Systems: All systems reviewed & are unremarkable except as noted in HPI and below (HPI) Exam Narrative: Obese, ill-appearing female lying supine in bed Const: General: no acute distress, alert, awake and uncomfortable (Intermittently uncomfortable because of pain) Orientation/consciousness: patient oriented x3 Other: Ill appearing female in no acute distress HENMT: Head: normal to inspection Mouth: Yes dry mucous membranes Eyes: General: appearance normal, both eyes and all related structures Sclera: sclerae normal Pupils: Equal, round and reactive pupils present Neck: Neck: normal visual inspection, supple and no JVD Carotids: normal carotid upstroke Resp: Effort & Inspection: normal respiratory effort Auscultation: crackles Cardio: Rate: regular rate Rhythm: abnormal rhythm (Irregular rhythm) Heart sounds: S1 normal heart sound present, S2 normal heart sound present and no murmurs GI: Auscultation: normal bowel sounds Urinary Catheter: Urinary Catheter: patent and draining and urine pink Skin: General skin exam: normal color Neuro: General: patient oriented x3 Cranial nerves: Yes Equal, round and reactive pupils present Speech: normal speech Extrem: General: no edema Psych: Appearance: grossly normal Mental Status: mental status grossly normal Affect: normal affect Objective Data Vital Signs Vital Signs: Vital Signs - 24 hr 08/08/24 11:18 08/08/24 11:35 08/08/24 11:51 Temperature Pulse Rate 72 72 71 Respiratory Rate Blood Pressure 116/92 H 106/96 H 118/103 H Pulse Oximetry Oxygen Delivery Oxygen Flow Rate 08/08/24 12:00 08/08/24 12:00 08/08/24 12:00 Temperature 36.8 C Pulse Rate 71 71 69 Respiratory Rate 19 Blood Pressure 98/63 L 80/57 L Pulse Oximetry 96 Oxygen Delivery Oxygen Flow Rate 08/08/24 13:20 08/08/24 13:35 08/08/24 14:00 Temperature Pulse Rate 69 68 58 L Respiratory Rate Blood Pressure 103/90 82/67 L 107/80 Pulse Oximetry Oxygen Delivery Oxygen Flow Rate 08/08/24 14:00 08/08/24 14:00 08/08/24 15:08 Temperature 36.8 C Pulse Rate 58 L 58 L Respiratory Rate 26 H Blood Pressure 107/80 Pulse Oximetry 97 Oxygen Delivery Nasal Cannula Oxygen Flow Rate 2 08/08/24 16:00 08/08/24 16:00 08/08/24 16:00 Temperature 36.8 C Pulse Rate 49 L 49 L 49 L Respiratory Rate 19 Blood Pressure 105/61 105/61 Pulse Oximetry 94 Oxygen Delivery Oxygen Flow Rate 08/08/24 18:15 08/08/24 18:15 08/08/24 18:15 Temperature 36.4 C Pulse Rate 61 61 61 Respiratory Rate 21 H Blood Pressure 110/69 110/69 Pulse Oximetry 95 Oxygen Delivery Oxygen Flow Rate 08/08/24 19:30 08/08/24 19:51 08/08/24 19:51 Temperature Pulse Rate 49 L 66 66 Respiratory Rate Blood Pressure 64/48 L 81/64 L 81/64 L Pulse Oximetry Oxygen Delivery Oxygen Flow Rate 08/08/24 20:00 08/08/24 20:00 08/08/24 20:00 Temperature 36.4 C Pulse Rate 66 66 66 Respiratory Rate 22 H Blood Pressure 82/63 L 81/64 L Pulse Oximetry 95 Oxygen Delivery Oxygen Flow Rate 08/08/24 20:00 08/08/24 22:00 08/08/24 22:00 Temperature Pulse Rate 64 64 Respiratory Rate Blood Pressure 107/71 Pulse Oximetry 98 Oxygen Delivery Nasal Cannula Oxygen Flow Rate 2 08/08/24 22:00 08/09/24 00:00 08/09/24 00:00 Temperature 36.2 C L Pulse Rate 64 65 65 Respiratory Rate 21 H Blood Pressure 107/71 129/67 Pulse Oximetry 99 Oxygen Delivery Oxygen Flow Rate 08/09/24 00:00 08/09/24 00:00 08/09/24 01:26 Temperature 36.5 C Pulse Rate 65 65 Respiratory Rate 24 H Blood Pressure 129/67 127/86 Pulse Oximetry 99 100 Oxygen Delivery Nasal Cannula Oxygen Flow Rate 2 08/09/24 01:26 08/09/24 02:00 08/09/24 02:00 Temperature Pulse Rate 65 58 L 58 L Respiratory Rate Blood Pressure 127/86 105/63 Pulse Oximetry Oxygen Delivery Oxygen Flow Rate 08/09/24 02:00 08/09/24 02:30 08/09/24 04:00 Temperature 36.6 C Pulse Rate 58 L 60 61 Respiratory Rate 23 H Blood Pressure 105/63 88/47 L 111/55 L Pulse Oximetry 98 Oxygen Delivery Oxygen Flow Rate 08/09/24 04:00 08/09/24 04:00 08/09/24 04:00 Temperature Pulse Rate 61 60 Respiratory Rate 22 H Blood Pressure 98/55 L Pulse Oximetry 98 Oxygen Delivery Room Air Oxygen Flow Rate 08/09/24 06:00 08/09/24 06:00 08/09/24 06:00 Temperature 36.6 C Pulse Rate 66 66 65 Respiratory Rate 23 H Blood Pressure 106/50 L 106/54 L Pulse Oximetry 93 Oxygen Delivery Oxygen Flow Rate 08/09/24 08:00 08/09/24 08:00 08/09/24 08:00 Temperature 36.6 C Pulse Rate 78 65 65 Respiratory Rate 14 14 Blood Pressure 96/65 L Pulse Oximetry 93 94 Oxygen Delivery Room Air Oxygen Flow Rate 08/09/24 09:20 08/09/24 09:20 08/09/24 10:00 Temperature Pulse Rate 64 64 63 Respiratory Rate Blood Pressure 91/59 L 91/59 L Pulse Oximetry Oxygen Delivery Oxygen Flow Rate 08/09/24 10:00 08/09/24 10:00 Temperature Pulse Rate 63 64 Respiratory Rate 25 H Blood Pressure 106/64 92/46 L Pulse Oximetry 92 Oxygen Delivery Oxygen Flow Rate Intake/Output Intake/Output: Intake & Output 08/06/24 08/07/24 08/08/24 08/09/24 23:59 23:59 23:59 23:59 Intake Total 4650 1076.0 1778.8 839.7 Output Total 980 1500 1000 Balance 4650 96.0 278.8 -160.3 Meds/Results Medications: Active Medications Generic Name Dose Route Start Last Admin Trade Name Freq PRN Reason Stop Dose Admin Acetaminophen 650 mg 08/06/24 21:36 Acetaminophen 325 Mg Tablet PO Q4H PRN Mild Pain (1-3) or Fever Hydrocodone Bitart/Acetaminophen 1 tab 08/07/24 15:27 08/09/24 01:29 Hydrocodone/Acetaminophen (*Crx) 5-325 Mg Tablet PO 1 tab Q6H PRN Administration Pain Rated 4-6 Apixaban 2.5 mg 08/07/24 09:00 Apixaban 2.5 Mg Tablet PO Q12HR SAL Bisacodyl 10 mg 08/08/24 09:00 08/09/24 09:09 Bisacodyl 10 Mg Suppository RECTAL Not Given QAM SAL Bupropion HCl 150 mg 08/07/24 09:00 08/09/24 08:56 Bupropion Hcl Sr (12 Hr) 150 Mg Tab PO 150 mg Q12HR SAL Administration Fluoxetine HCl 20 mg 08/07/24 09:00 08/09/24 08:56 Fluoxetine Hcl 20 Mg Capsule PO 20 mg DAILY SAL Administration Fluticasone Propionate 1 spray 08/07/24 09:00 08/09/24 08:57 Fluticasone Propionate 0.05% Na Spr 16 Gm Btl (*Bkc) NASAL 1 spray DAILY SAL Administration Dopamine HCl/Dextrose 400 mg in 250 mls @ 34.5 mls/hr 08/07/24 03:15 08/09/24 10:00 Dopamine 400 Mg/D5w 250 Ml IV CONT 8 mcg/kg/min .Q7H15M SAL 34.5 mls/hr Titration Protocol 8 MCG/KG/MIN Albumin Human 100 mls @ 60 mls/hr 08/08/24 12:00 08/09/24 05:37 Albutein IVPB 08/09/24 11:59 60 mls/hr Q6HR SAL Administration Cefepime HCl 1 gm in 50 mls @ 100 mls/hr 08/08/24 11:30 08/09/24 08:55 Maxipime 1 Gm/Ns 50 Ml IVPB 100 mls/hr Q12HR SAL Administration Loratadine 10 mg 08/07/24 09:00 08/07/24 10:10 Loratadine 10 Mg Tablet PO Not Given DAILY SAL Ondansetron HCl 4 mg 08/06/24 21:36 Ondansetron Inj 4 Mg/2 Ml Vial IV PUSH Q4H PRN Nausea Ondansetron HCl 4 mg 08/07/24 11:08 Ondansetron Inj 4 Mg/2 Ml Vial IV PUSH ONCE PRN Nausea Pantoprazole Sodium 40 mg 08/08/24 09:00 08/09/24 08:56 Pantoprazole Sodium Iv 40 Mg Vial IV PUSH 40 mg QAM SAL Administration Polyethylene Glycol 17 gm 08/08/24 09:00 08/09/24 08:56 Polyethylene Glycol 3350 17 Gm Powd.Pack PO 17 gm QAM SAL Administration Sodium Chloride 10 ml 08/07/24 06:00 08/09/24 05:38 Central Line Flush IV PUSH 10 ml Q8HR SAL Administration Sodium Chloride 20 ml 08/07/24 02:32 Central Line Flush IV PUSH PRN PRN after blood draws Topiramate 25 mg 08/07/24 09:00 08/09/24 08:56 Topiramate 25 Mg Tablet PO 25 mg Q12HR SAL Administration Radiology Results: ITS Impressions Abdomen Ultrasound 08/06/24 20:18 IMPRESSION: Single lamellated stone within the gallbladder with a sonographic Berry sign. Chest/Abdomen/Pelvis CT 08/06/24 20:22 IMPRESSION: Findings within the chest suggesting pulmonary hypertension. Staghorn calculus within the right kidney with global enlargement of the right kidney and surrounding inflammatory change. Lamellated stone within the gallbladder without additional abnormality. Punctate foci of air within the bladder with surrounding inflammatory change suggesting cystitis. Fibroid uterus, enlarged for a patient of this age. Nonobstructing fat-containing umbilical hernia. 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 Chest X-Ray 08/07/24 05:19 Impression: Right IJ line in place. Clear lungs. Retrograde Pyelogram 08/07/24 12:44 IMPRESSION: 1. Right internal ureteral stent in expected position. Renal Ultrasound 08/07/24 15:17 IMPRESSION: No definite abnormality seen. Labs Labs: Laboratory Results - last 24 hr 08/07/24 08/08/24 08/09/24 17:30 05:32 05:36 WBC 15.6 H RBC 3.53 L Hgb 11.7 L Hct 33.0 L MCV 93.5 MCH 33.1 MCHC 35.5 RDW 14.7 H Plt Count 261 MPV 9.4 Sodium 137 Potassium 3.8 Chloride 107 Carbon Dioxide 24 Anion Gap 6 BUN 45 H Creatinine 1.54 H Estim Creat Clear Calc 33 Estimated GFR 33 L Glucose 96 Calcium 8.5 Magnesium 1.8 Total Bilirubin 2.2 H AST 173 H ALT 190 H Alkaline Phosphatase 134 H Total Protein 6.0 L Albumin 2.8 L Ur Random Creatinine 47 U Random Total Protein 195 H Protein/Creatinin Ratio 4149 H Hep B Core Total Ab Non-reactive Quality VTE Prophylaxis VTE prophylaxis: mechanical ordered and pharmacologic ordered
--- NOTE | 2024-08-09 11:15 | P.PNNP_ITS ---
Progress Note: A&P Assessment and Plan (1) TOÑA (acute kidney injury): Code(s): N17.9 - Acute kidney failure, unspecified Status: Acute Assessment and Plan: * ongoing improvement noted * normal renal function at baseline (at least by labs done in Sep 2023 with a creatinine of 0.81mg/dl from [facility] records) * etiology multifactorial: * prerenal factors/volume depletion * poor oral intake * sepsis/infection * hemodynamic instability/shock * use of entresto + diuretics (lasix & spironolactone) prior to admission * s/p fluid resuscitation (3L bolus in ER) * evaluation to date noted: * CT of abd/pelvis with staghorn calculus within the right kidney with global enlargement of the right kidney and surrounding inflammatory change * renal ultrasound okay * UA suggestive on infection * urine electrolytes non-prerenal * urine eosinophils negative * CPK low * continue supportive therapy * follow trend of repeat labs and UOP (2) Septic shock: Code(s): A41.9 - Sepsis, unspecified organism; R65.21 - Severe sepsis with septic shock Status: Acute Assessment and Plan: * presumably due to UTI along with hypovolemia and possible cholecystitis * s/p aggressive IVF resuscitation * on dopamine to maintain MAP as well as for bradycardia * on antibiotics * follow culture data * blood culture with Proteus * follow trend of hemodynamics (3) UTI (urinary tract infection): Qualifiers: Hematuria presence: with hematuria Urinary tract infection type: acute cystitis Qualified Code(s): N30.01 - Acute cystitis with hematuria Code(s): N39.0 - Urinary tract infection, site not specified Status: Acute Assessment and Plan: * UA highly suggestive * complicated by staghorn calculus in the right kidney based on admission imaging * follow culture data * on antibiotics (4) Staghorn calculus: Code(s): N20.0 - Calculus of kidney Status: Acute Assessment and Plan: * as noted by admission CT scan: * staghorn calculus within the right kidney with global enlargement of the right kidney and surrounding inflammatory change * s/p interventions (cystoscopy and righer ureteral stent placement) * Urology following (5) Bradycardia, sinus: Code(s): R00.1 - Bradycardia, unspecified Status: Acute Assessment and Plan: * as noted on admission * remains on dopamine gtt * Cardiology following * Echo results noted * holding AV annmarie blocking agents at this time (6) Atrial fibrillation: Qualifiers: Atrial fibrillation type: paroxysmal Qualified Code(s): I48.0 - Paroxysmal atrial fibrillation Code(s): I48.91 - Unspecified atrial fibrillation Status: Acute Assessment and Plan: * known history * on carvedilol and amiodarone as an outpatient as well as Eliquis * these medications are on hold currently Will continue to follow. L Subjective Date/time seen: 08/09/24 11:15 Interval history: Follow-up for acute kidney injury/acute renal failure. Renal function/creatinine continue to improve with adequate urine output at this time; no apparent distress noted at the time of my visit; feels reasonably well; no issues/events overnight or earlier this morning. Exam 2 Narrative: General: elderly but WD/WN female in NAD Heart: bradycardic but normal S1 and S2; no rub Lungs: clear anteriorly Abdomen: soft, nontender, nondistended, positive bowel sounds Extremities: no cyanosis or clubbing; no edema Skin: warm and intact Objective Data Vital Signs Vital Signs: Vital Signs Temp Pulse Resp BP Pulse Ox O2 Del Method O2 Flow Rate 08/09/24 10:00 63 25 H 106/64 92 08/09/24 09:20 64 91/59 L 08/09/24 09:20 64 91/59 L 08/09/24 08:00 62 96/65 L 08/09/24 08:00 98 F 65 14 96/65 L 94 08/09/24 08:00 65 08/09/24 08:00 78 14 93 Room Air 08/09/24 06:00 65 106/54 L 08/09/24 06:00 97.9 F 66 23 H 106/50 L 93 08/09/24 06:00 66 08/09/24 04:00 60 08/09/24 04:00 61 22 H 98/55 L 98 08/09/24 04:00 Room Air 08/09/24 04:00 61 111/55 L 08/09/24 02:30 60 88/47 L 08/09/24 02:00 97.9 F 58 L 23 H 105/63 98 08/09/24 02:00 58 L 08/09/24 02:00 58 L 105/63 08/09/24 01:26 65 127/86 08/09/24 01:26 65 127/86 08/09/24 00:00 100 Nasal Cannula 2 08/09/24 00:00 97.7 F 65 24 H 129/67 99 08/09/24 00:00 65 08/09/24 00:00 65 129/67 08/08/24 22:00 97.2 F L 64 21 H 107/71 99 08/08/24 22:00 64 08/08/24 22:00 64 107/71 08/08/24 20:00 98 Nasal Cannula 2 08/08/24 20:00 97.6 F 66 22 H 81/64 L 95 08/08/24 20:00 66 08/08/24 20:00 66 82/63 L 08/08/24 19:51 66 81/64 L 08/08/24 19:51 66 81/64 L 08/08/24 19:30 49 L 64/48 L 08/08/24 18:15 61 110/69 08/08/24 18:15 97.6 F 61 21 H 110/69 95 08/08/24 18:15 61 08/08/24 16:00 49 L 105/61 08/08/24 16:00 98.2 F 49 L 19 105/61 94 08/08/24 16:00 49 L 08/08/24 15:08 Nasal Cannula 2 08/08/24 14:00 98.2 F 58 L 26 H 107/80 97 08/08/24 14:00 58 L 08/08/24 14:00 58 L 107/80 08/08/24 13:35 68 82/67 L 08/08/24 13:20 69 103/90 Intake/Output Intake/Output: Intake & Output 08/06/24 08/07/24 08/08/24 08/09/24 23:59 23:59 23:59 23:59 Intake Total 4650 1076.0 1778.8 1148.7 Output Total 980 1500 1000 Balance 4650 96.0 278.8 148.7 Meds/Results Medications: Active Medications Generic Name Dose Route Start Last Admin Trade Name Freq PRN Reason Stop Dose Admin Acetaminophen 650 mg 08/06/24 21:36 Acetaminophen 325 Mg Tablet PO Q4H PRN Mild Pain (1-3) or Fever Hydrocodone Bitart/Acetaminophen 1 tab 08/07/24 15:27 08/09/24 01:29 Hydrocodone/Acetaminophen (*Crx) 5-325 Mg Tablet PO 1 tab Q6H PRN Administration Pain Rated 4-6 Apixaban 2.5 mg 08/07/24 09:00 Apixaban 2.5 Mg Tablet PO Q12HR SAL Bisacodyl 10 mg 08/08/24 09:00 08/09/24 09:09 Bisacodyl 10 Mg Suppository RECTAL Not Given QAM SAL Bupropion HCl 150 mg 08/07/24 09:00 08/09/24 08:56 Bupropion Hcl Sr (12 Hr) 150 Mg Tab PO 150 mg Q12HR SAL Administration Fluoxetine HCl 20 mg 08/07/24 09:00 08/09/24 08:56 Fluoxetine Hcl 20 Mg Capsule PO 20 mg DAILY SAL Administration Fluticasone Propionate 1 spray 08/07/24 09:00 08/09/24 08:57 Fluticasone Propionate 0.05% Na Spr 16 Gm Btl (*Bkc) NASAL 1 spray DAILY SAL Administration Dopamine HCl/Dextrose 400 mg in 250 mls @ 34.5 mls/hr 08/07/24 03:15 08/09/24 12:00 Dopamine 400 Mg/D5w 250 Ml IV CONT 8 mcg/kg/min .Q7H15M SAL 34.5 mls/hr Titration Protocol 8 MCG/KG/MIN Cefepime HCl 1 gm in 50 mls @ 100 mls/hr 08/08/24 11:30 08/09/24 08:55 Maxipime 1 Gm/Ns 50 Ml IVPB 100 mls/hr Q12HR SAL Administration Loratadine 10 mg 08/07/24 09:00 08/07/24 10:10 Loratadine 10 Mg Tablet PO Not Given DAILY SAL Ondansetron HCl 4 mg 08/06/24 21:36 Ondansetron Inj 4 Mg/2 Ml Vial IV PUSH Q4H PRN Nausea Ondansetron HCl 4 mg 08/07/24 11:08 Ondansetron Inj 4 Mg/2 Ml Vial IV PUSH ONCE PRN Nausea Pantoprazole Sodium 40 mg 08/08/24 09:00 08/09/24 08:56 Pantoprazole Sodium Iv 40 Mg Vial IV PUSH 40 mg QAM SAL Administration Polyethylene Glycol 17 gm 08/08/24 09:00 08/09/24 08:56 Polyethylene Glycol 3350 17 Gm Powd.Pack PO 17 gm QAM SAL Administration Sodium Chloride 10 ml 08/07/24 06:00 08/09/24 13:07 Central Line Flush IV PUSH 10 ml Q8HR SAL Administration Sodium Chloride 20 ml 08/07/24 02:32 Central Line Flush IV PUSH PRN PRN after blood draws Topiramate 25 mg 08/07/24 09:00 08/09/24 08:56 Topiramate 25 Mg Tablet PO 25 mg Q12HR SAL Administration Radiology Results: ITS Impressions Abdomen Ultrasound 08/06/24 20:18 IMPRESSION: Single lamellated stone within the gallbladder with a sonographic Berry sign. Chest/Abdomen/Pelvis CT 08/06/24 20:22 IMPRESSION: Findings within the chest suggesting pulmonary hypertension. Staghorn calculus within the right kidney with global enlargement of the right kidney and surrounding inflammatory change. Lamellated stone within the gallbladder without additional abnormality. Punctate foci of air within the bladder with surrounding inflammatory change suggesting cystitis. Fibroid uterus, enlarged for a patient of this age. Nonobstructing fat-containing umbilical hernia. 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 Chest X-Ray 08/07/24 05:19 Impression: Right IJ line in place. Clear lungs. Retrograde Pyelogram 08/07/24 12:44 IMPRESSION: 1. Right internal ureteral stent in expected position. Renal Ultrasound 08/07/24 15:17 IMPRESSION: No definite abnormality seen. Labs Labs: Laboratory Tests 08/09/24 05:36 08/09/24 05:36 Calcium 8.5 Magnesium 1.8 Total Bilirubin 2.2 H AST 173 H ALT 190 H Alkaline Phosphatase 134 H Total Protein 6.0 L Albumin 2.8 L Microbiology 08/06/24 18:14 Blood Blood Culture - Preliminary Proteus Mirabilis 08/06/24 18:14 Blood Blood Culture - Final Proteus Mirabilis 08/06/24 17:53 Unspecified Urine Culture - Final
[2024-08-09] MEDS: POTASSIUM BICARBONATE 25 MEQ TABEF 50 MEQ PO (12:01)
--- NOTE | 2024-08-09 12:01 | PCFNICU ---
ICU Rounding Note: Pt current nutrition is Heart Healthy with Rashad BID and Ensure Compact BID. Last recorded weight is 116.2 kg, up from 115 kg on admit. Bowel Motility: +BM reported 08/09 Labs Reviewed:Cr 1.5, GFR 33, BUN 45, Alb 2.8, Hgb 11.7, Hct 33.0 Meds Noted:Dopamine, Eliquis, Miralax, Protonix Skin:Deep Tissue-saccum Additional Notes: Patient currently on a heart healthy diet, eating 75-100% of meals. Diet supplements being provided for additional kcal and protein needs for wound healing. Agree with diet orders. Following daily in ICU rounds. Will monitor weight labs, skin, oral intake, meds every 5 days.
[2024-08-09] MEDS: DOPamine 400 MG/D5W 250 ML 400 MG/250 ML BAG 30.19 MG IV CONT (16:41)
[2024-08-09] MEDS: DOPamine 400 MG/D5W 250 ML 400 MG/250 ML BAG 64.69 MG IV CONT (22:19)
[2024-08-09] MEDS: ONDANSETRON INJ 4 MG/2 ML VIAL IV PUSH (23:16)
[2024-08-10] VITALS (28 sets, daily range): BP systolic 81–137; BP diastolic 47–88; PULSE 45–79; RESP 18–30; TEMP 37.2–37.5; O2SAT 96–100
[2024-08-10] MEDS: DOPamine 400 MG/D5W 250 ML 400 MG/250 ML BAG 53.91 MG IV CONT ×2 (02:24→07:24)
[2024-08-10 05:58] LABS: Hematocrit 37.1 % (37.0-47.0); Hemoglobin 13.1 g/dL (12.0-15.0); Mean Corpuscular HGB Conc 35.3 g/dl (32-36); Mean Corpuscular Hemoglobin 32.7 pg (26-34); Mean Corpuscular Volume 92.5 fl (80-100); Mean Platelet Volume 9.2 fl (7.4-10.4); Platelet Count Result 299 k/mm3 (150-375); Red Blood Count 4.01 M/mm3 (4.2-5.4); Red Cell Distribution Width 14.7 % (11.5-14.5); White Blood Count 20.1 K/mm3 (4.5-10.0)
[2024-08-10] MEDS: CENTRAL LINE FLUSH 10 ML IV PUSH ×2 (06:12→21:28)
[2024-08-10 06:24] LABS: Alanine Aminotransferase 175 U/L (6-35); Albumin Level 3.1 g/dL (3.5-5.1); Alkaline Phosphatase 166 U/L (38-126); Anion Gap 7 mmol/L (4-12); Aspartate Amino Transferase 154 U/L (14-36); Bilirubin,Total 2.5 mg/dL (0.2-1.3); Blood Urea Nitrogen 30 mg/dL (7-17); Calcium 8.9 mg/dL (8.4-10.2); Carbon Dioxide 26 mmol/L (22-30); Chloride 106 mmol/L (98-107); Estimated CRCL calculation 50 ml/min; Estimated Glomerular Filt Rate 53; Glucose 162 mg/dL (65-110); Potassium 3.8 mmol/L (3.4-5.0); Sodium 139 mmol/L (137-145)
[2024-08-10] MEDS: TOPIRAMATE 25 MG TABLET PO ×2 (08:59→21:28)
[2024-08-10] MEDS: FLUoxetine HCL 20 MG CAPSULE PO (08:59)
[2024-08-10] MEDS: CEFEPIME 1 GM/NS 50 ML 1 GM/50 ML BAG IVPB (09:00)
[2024-08-10] MEDS: polyethylene glycoL 3350 17 GM POWD.PACK PO (09:00)
[2024-08-10] MEDS: FLUTICASONE PROPIONATE 0.05% NA SPR 16 GM BTL (*BKC) 1 SPRAY NASAL (09:00)
[2024-08-10] MEDS: PANTOPRAZOLE SODIUM IV 40 MG VIAL IV PUSH (09:00)
[2024-08-10] MEDS: buPROPion HCL SR (12 HR) 150 MG TAB PO ×2 (09:00→21:28)
--- NOTE | 2024-08-10 09:15 | P.PNNP_ITS ---
Progress Note: A&P Assessment and Plan (1) TOÑA (acute kidney injury): Code(s): N17.9 - Acute kidney failure, unspecified Status: Acute Assessment and Plan: * resolving (if not resolved) * normal renal function at baseline (at least by labs done in Sep 2023 with a creatinine of 0.81mg/dl from [facility] records) * etiology multifactorial: * prerenal factors/volume depletion * poor oral intake * sepsis/infection * hemodynamic instability/shock * use of entresto + diuretics (lasix & spironolactone) prior to admission * s/p fluid resuscitation (3L bolus in ER) * evaluation to date noted: * CT of abd/pelvis with staghorn calculus within the right kidney with global enlargement of the right kidney and surrounding inflammatory change * renal ultrasound okay * UA suggestive on infection * urine electrolytes non-prerenal * urine eosinophils negative * CPK low * continue supportive therapy * follow trend of repeat labs and UOP (2) Septic shock: Code(s): A41.9 - Sepsis, unspecified organism; R65.21 - Severe sepsis with septic shock Status: Acute Assessment and Plan: * presumably due to UTI along with hypovolemia and possible cholecystitis * s/p aggressive IVF resuscitation * on dopamine to maintain MAP as well as for bradycardia * on antibiotics * follow culture data * blood culture with Proteus * follow trend of hemodynamics (3) UTI (urinary tract infection): Qualifiers: Hematuria presence: with hematuria Urinary tract infection type: acute cystitis Qualified Code(s): N30.01 - Acute cystitis with hematuria Code(s): N39.0 - Urinary tract infection, site not specified Status: Acute Assessment and Plan: * UA highly suggestive * complicated by staghorn calculus in the right kidney based on admission imaging * follow culture data * on antibiotics (4) Staghorn calculus: Code(s): N20.0 - Calculus of kidney Status: Acute Assessment and Plan: * as noted by admission CT scan: * staghorn calculus within the right kidney with global enlargement of the right kidney and surrounding inflammatory change * s/p interventions (cystoscopy and righer ureteral stent placement) * Urology following (5) Bradycardia, sinus: Code(s): R00.1 - Bradycardia, unspecified Status: Acute Assessment and Plan: * as noted on admission * remains on dopamine gtt * Cardiology following * Echo results noted * holding AV annmarie blocking agents at this time * possible need for pacemaker? (6) Atrial fibrillation: Qualifiers: Atrial fibrillation type: paroxysmal Qualified Code(s): I48.0 - Paroxysmal atrial fibrillation Code(s): I48.91 - Unspecified atrial fibrillation Status: Acute Assessment and Plan: * known history * on carvedilol and amiodarone as an outpatient as well as Eliquis * holding AV coreg and amiodarone at this time Not much else to add - will continue to follow from a distance. L Subjective Date/time seen: 08/10/24 09:15 Interval history: Follow-up for acute kidney injury/acute renal failure. Renal function/creatinine continues to improve with ongoing therapy/interventions with stable urine output; remains on dopamine gtt at the time of my visit; overall, she reports feeling better in general without any acute complaints or concerns; no apparent distress noted. Exam 2 Narrative: General: elderly but WD/WN female in NAD Heart: bradycardic but normal S1 and S2; no rub Lungs: clear anteriorly Abdomen: soft, nontender, nondistended, positive bowel sounds Extremities: no cyanosis or clubbing; no edema Skin: no rash or nodules Objective Data Vital Signs Vital Signs: Vital Signs Temp Pulse Resp BP Pulse Ox O2 Del Method O2 Flow Rate 08/10/24 09:12 73 103/65 08/10/24 08:00 79 08/10/24 08:00 97 Nasal Cannula 2 08/10/24 08:00 76 97/74 L 08/10/24 08:00 99.5 F 76 21 H 97/74 L 98 08/10/24 07:26 75 118/74 08/10/24 07:24 75 118/74 08/10/24 07:03 75 118/74 08/10/24 06:00 74 117/73 08/10/24 06:00 99.4 F 75 29 H 117/73 96 08/10/24 06:00 75 08/10/24 04:00 97 Nasal Cannula 2 08/10/24 04:00 99.4 F 74 30 H 125/72 97 08/10/24 04:00 74 08/10/24 04:00 74 125/72 08/10/24 02:24 73 123/56 L 08/10/24 02:24 73 123/56 L 08/10/24 02:00 99.2 F 73 28 H 122/72 96 08/10/24 02:00 73 08/10/24 02:00 74 122/72 08/10/24 01:00 74 122/74 08/10/24 00:00 99.3 F 73 30 H 137/87 96 08/10/24 00:00 73 08/10/24 00:00 73 137/87 08/09/24 23:24 98 Nasal Cannula 2 08/09/24 22:19 67 112/59 L 08/09/24 22:19 67 112/59 L 08/09/24 22:00 98.8 F 62 24 H 122/59 L 92 08/09/24 22:00 62 08/09/24 22:00 92 Nasal Cannula 2 08/09/24 21:55 38 L 113/50 L 08/09/24 21:45 26 L 113/50 L 08/09/24 20:00 98.8 F 68 25 H 106/60 91 08/09/24 20:00 66 08/09/24 20:00 91 Room Air 08/09/24 20:00 61 106/60 08/09/24 18:15 40 L 98/46 L 08/09/24 18:10 63 87/48 L 08/09/24 18:00 98.5 F 67 17 110/77 92 08/09/24 18:00 52 L 08/09/24 18:00 45 L 90/30 L 08/09/24 16:41 62 113/78 08/09/24 16:41 62 113/78 Intake/Output Intake/Output: Intake & Output 08/07/24 08/08/24 08/09/24 08/10/24 23:59 23:59 23:59 23:59 Intake Total 1076.0 1778.8 2122.8 1210.2 Output Total 980 1500 2150 850 Balance 96.0 278.8 -27.2 360.2 Meds/Results Medications: Active Medications Generic Name Dose Route Start Last Admin Trade Name Freq PRN Reason Stop Dose Admin Acetaminophen 650 mg 08/06/24 21:36 Acetaminophen 325 Mg Tablet PO Q4H PRN Mild Pain (1-3) or Fever Hydrocodone Bitart/Acetaminophen 1 tab 08/07/24 15:27 08/09/24 20:47 Hydrocodone/Acetaminophen (*Crx) 5-325 Mg Tablet PO 1 tab Q6H PRN Administration Pain Rated 4-6 Apixaban 2.5 mg 08/07/24 09:00 Apixaban 2.5 Mg Tablet PO Q12HR [facility] Bisacodyl 10 mg 08/08/24 09:00 08/10/24 08:12 Bisacodyl 10 Mg Suppository RECTAL Not Given QAM [facility] Bupropion HCl 150 mg 08/07/24 09:00 08/10/24 09:00 Bupropion Hcl Sr (12 Hr) 150 Mg Tab PO 150 mg Q12HR SAL Administration Fluoxetine HCl 20 mg 08/07/24 09:00 08/10/24 08:59 Fluoxetine Hcl 20 Mg Capsule PO 20 mg DAILY SAL Administration Fluticasone Propionate 1 spray 08/07/24 09:00 08/10/24 09:00 Fluticasone Propionate 0.05% Na Spr 16 Gm Btl (*Bkc) NASAL 1 spray DAILY SAL Administration Dopamine HCl/Dextrose 400 mg in 250 mls @ 43.125 mls/hr 08/07/24 03:15 08/10/24 14:45 Dopamine 400 Mg/D5w 250 Ml IV CONT 10 mcg/kg/min .Q5H48M SAL 43.13 mls/hr Titration Protocol 10 MCG/KG/MIN Cefepime HCl 2 gm in 50 mls @ 100 mls/hr 08/10/24 21:00 Maxipime 2 Gm/Ns 50 Ml IVPB Q12H SAL Loratadine 10 mg 08/07/24 09:00 08/07/24 10:10 Loratadine 10 Mg Tablet PO Not Given DAILY [facility] Ondansetron HCl 4 mg 08/06/24 21:36 08/09/24 23:16 Ondansetron Inj 4 Mg/2 Ml Vial IV PUSH 4 mg Q4H PRN Administration Nausea Ondansetron HCl 4 mg 08/07/24 11:08 Ondansetron Inj 4 Mg/2 Ml Vial IV PUSH ONCE PRN Nausea Pantoprazole Sodium 40 mg 08/08/24 09:00 08/10/24 09:00 Pantoprazole Sodium Iv 40 Mg Vial IV PUSH 40 mg QAM SAL Administration Polyethylene Glycol 17 gm 08/08/24 09:00 08/10/24 09:00 Polyethylene Glycol 3350 17 Gm Powd.Pack PO 17 gm QAM SAL Administration Sodium Chloride 10 ml 08/07/24 06:00 08/10/24 12:38 Central Line Flush IV PUSH Not Given Q8HR SAL Sodium Chloride 20 ml 08/07/24 02:32 Central Line Flush IV PUSH PRN PRN after blood draws Topiramate 25 mg 08/07/24 09:00 08/10/24 08:59 Topiramate 25 Mg Tablet PO 25 mg Q12HR SAL Administration Radiology Results: ITS Impressions Abdomen Ultrasound 08/06/24 20:18 IMPRESSION: Single lamellated stone within the gallbladder with a sonographic Berry sign. Chest/Abdomen/Pelvis CT 08/06/24 20:22 IMPRESSION: Findings within the chest suggesting pulmonary hypertension. Staghorn calculus within the right kidney with global enlargement of the right kidney and surrounding inflammatory change. Lamellated stone within the gallbladder without additional abnormality. Punctate foci of air within the bladder with surrounding inflammatory change suggesting cystitis. Fibroid uterus, enlarged for a patient of this age. Nonobstructing fat-containing umbilical hernia. 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 Chest X-Ray 08/07/24 05:19 Impression: Right IJ line in place. Clear lungs. Retrograde Pyelogram 08/07/24 12:44 IMPRESSION: 1. Right internal ureteral stent in expected position. Renal Ultrasound 08/07/24 15:17 IMPRESSION: No definite abnormality seen. Labs Labs: Laboratory Tests 08/10/24 05:52 08/10/24 05:52 Calcium 8.9 Magnesium 2.0 Total Bilirubin 2.5 H AST 154 H ALT 175 H Alkaline Phosphatase 166 H Total Protein 6.0 L Albumin 3.1 L Microbiology 08/06/24 18:14 Blood Blood Culture - Final Proteus Mirabilis 08/06/24 18:14 Blood Blood Culture - Final Proteus Mirabilis
--- NOTE | 2024-08-10 10:54 | P.PNINT_ITS ---
Progress Note: A&P Assessment and Plan (1) Septic shock: Code(s): A41.9 - Sepsis, unspecified organism; R65.21 - Severe sepsis with septic shock Status: Acute Assessment and Plan: 08/06: Patient presented with generalized weakness, hypovolemia, hypotension, leukocytosis, was found to be in septic shock, likely related to UTI and hypovolemia -patient was adequately fluid resuscitated and is off of crystalloids -she received 25% albumin -lactic acid has normalized -central line was inserted in the right IJ -continue dopamine for bradycardia and hypotension, maintain MAP > 65 mmHg for adequate end organ perfusion and heart rate above 50 -08/06: Blood and urine cultures have been obtained -08/06: Blood cultures growing Proteus mirabilis which is [place]is since -continue cefepime (08/06), but will off of vancomycin -08/10 repeat blood cultures ordered as patient will likely need pacemaker 08/06: RUQ ultrasound: Single lamellated stone within the gallbladder with a sonographic Berry sign. Surgery was consult (2) UTI (urinary tract infection): Qualifiers: Hematuria presence: with hematuria Urinary tract infection type: acute cystitis Qualified Code(s): N30.01 - Acute cystitis with hematuria Code(s): N39.0 - Urinary tract infection, site not specified Status: Acute Assessment and Plan: UTI could be related to staghorn calculus in the right kidney or cystitis -antibiotics as above (3) Staghorn calculus: Code(s): N20.0 - Calculus of kidney Status: Acute Assessment and Plan: 08/06: CT chest abdomen and pelvis: Findings within the chest suggesting pulmonary hypertension.Staghorn calculus within the right kidney with global enlargement of the right kidney and surrounding inflammatory change. Lamellated stone within the gallbladder without additional abnormality. Punctate foci of air within the bladder with surrounding inflammatory change suggesting cystitis. Fibroid uterus, enlarged for a patient of this age. Nonobstructing fat- containing umbilical hernia. 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 08/07 status post Cystoscopy, right retrograde, right ureteral stent placement 6 Malaysian contour, [place] catheter placement (4) Bradyarrhythmia: Code(s): I49.8 - Other specified cardiac arrhythmias Status: Acute Assessment and Plan: Patient has Moreno cardia which appears to be junctional rhythm. Bradycardia could be related to hypovolemia, but continue to take her home medications amiodarone, Coreg -patient currently on dopamine for bradycardia and hypotension. Continue to titrate -cardiology following -continue to hold amiodarone and AV annmarie blocking agents -she would likely need a pacemaker (5) Acute renal failure: Qualifiers: Acute renal failure type: unspecified Qualified Code(s): N17.9 - Acute kidney failure, unspecified Code(s): N17.9 - Acute kidney failure, unspecified Status: Acute Assessment and Plan: Acute renal failure likely related to hypovolemia, decreased oral intake, says septic shock/infection Improved with IV fluids and creatinine trending down and close to normal, urine output improved -continue to monitor urine output, renal function electrolytes -nephrology was consulted from ER (6) Electrolyte imbalance: Code(s): E87.8 - Other disorders of electrolyte and fluid balance, not elsewhere classified Status: Acute Assessment and Plan: Replace potassium (7) Atrial fibrillation: Qualifiers: Atrial fibrillation type: paroxysmal Qualified Code(s): I48.0 - Paroxysmal atrial fibrillation Code(s): I48.91 - Unspecified atrial fibrillation Status: Acute Assessment and Plan: Patient has a history of atrial fibrillation on Eliquis at home -she also takes amiodarone and Coreg at home -currently bradycardic and hypotensive -continue to hold home medications -hold Eliquis as patient has cystoscopy and has hematuria (8) Cholelithiasis without cholecystitis: Code(s): K80.20 - Calculus of gallbladder without cholecystitis without obstruction Status: Acute Assessment and Plan: Ultrasound shows large single gallbladder stone. Radiologic Berry sign was positive. No other changes of cholecystitis or obstruction was seen. Patient was evaluated by general surgery and recommended conservative management at this time. No plan for surgical intervention (9) Transaminitis: Code(s): R74.01 - Elevation of levels of liver transaminase levels Status: Acute Assessment and Plan: Multifactorial. Improved Monitor. Plan DVT prophylaxis: Eliquis currently on hold due to hematuria Stress ulcer prophylaxis: Protonix Nutrition: Diet ordered Code Status: Do not resuscitate Consult PT OT Up in chair Incentive spirometer Critical Care Time Spent: 32 minutes Due to a high probability of clinically significant, life threatening deterioration, the patient required my highest level of preparedness to intervene emergently and I personally spent this critical care time directly and personally managing the patient. This critical care time included obtaining a history; examining the patient; pulse oximetry; ordering and review of studies; arranging urgent treatment with development of a management plan; evaluation of patient's response to treatment; frequent reassessment; and discussions with other providers. It was exclusive of separately billable procedures and treating other patients and teaching time. Please see Assessment and Plan section and the rest of the note for further information on patient assessment and treatment This dictation may have been done utilizing a voice recognition system. Attempts have been made to correct errors. However, there may be uncorrected grammatical, spelling, and recognitions errors present. Subjective Date/time seen: 08/10/24 Overnight events reviewed. Afebrile Continues to be on dopamine infusion 3 Patient continues to be in junctional rhythm Clinically she states she feels better and denies any specific complaints. Patient has been tolerating p.o. diet. Urine output has improved. Other Vitals acceptable Continues to have mild hematuria Review of Systems Review of Systems: All systems reviewed & are unremarkable except as noted in HPI and below Exam Narrative: General: Pleasant female in no acute distress HEENT:? Pupils equal and reactive, sclera is clear, moist oral mucosa, some Neck:? Supple Respiratory:? Clear to auscultation bilaterally, decreased breath sounds at bases, adequate air entry, no wheeze Cardiac:? Sinus bradycardia Abdomen:? Soft, obese, tender to palpation around the umbilicus, normoactive bowel sounds Extremities:? Trace edema, palpable pedal pulses Neuro:? Patient is awake, alert, oriented to place, person, knew her date of and the year. She is slow to answer and hard of hearing but able to follow simple commands and answer questions Skin:? Warm and dry Psych:? Flat affect Objective Data Vital Signs Vital Signs: Vital Signs - 24 hr 08/09/24 12:00 08/09/24 12:00 08/09/24 12:00 Temperature 36.7 C Pulse Rate 65 64 64 Respiratory Rate 23 H Blood Pressure 116/57 L 116/51 L Pulse Oximetry 93 Oxygen Delivery Oxygen Flow Rate 08/09/24 12:00 08/09/24 14:00 08/09/24 14:00 Temperature Pulse Rate 64 67 67 Respiratory Rate 23 H Blood Pressure 124/83 Pulse Oximetry 93 Oxygen Delivery Room Air Oxygen Flow Rate 08/09/24 14:00 08/09/24 16:00 08/09/24 16:00 Temperature 36.8 C 36.8 C Pulse Rate 66 65 65 Respiratory Rate 21 H 25 H Blood Pressure 118/60 117/71 Pulse Oximetry 94 94 Oxygen Delivery Oxygen Flow Rate 08/09/24 16:00 08/09/24 16:00 08/09/24 16:41 Temperature Pulse Rate 65 64 62 Respiratory Rate 19 Blood Pressure 117/71 113/78 Pulse Oximetry 92 Oxygen Delivery Room Air Oxygen Flow Rate 08/09/24 16:41 08/09/24 18:00 08/09/24 18:00 Temperature Pulse Rate 62 45 L 52 L Respiratory Rate Blood Pressure 113/78 90/30 L Pulse Oximetry Oxygen Delivery Oxygen Flow Rate 08/09/24 18:00 08/09/24 18:10 08/09/24 18:15 Temperature 36.9 C Pulse Rate 67 63 40 L Respiratory Rate 17 Blood Pressure 110/77 87/48 L 98/46 L Pulse Oximetry 92 Oxygen Delivery Oxygen Flow Rate 08/09/24 20:00 08/09/24 20:00 08/09/24 20:00 Temperature Pulse Rate 61 66 Respiratory Rate Blood Pressure 106/60 Pulse Oximetry 91 Oxygen Delivery Room Air Oxygen Flow Rate 08/09/24 20:00 08/09/24 21:45 08/09/24 21:55 Temperature 37.1 C Pulse Rate 68 26 L 38 L Respiratory Rate 25 H Blood Pressure 106/60 113/50 L 113/50 L Pulse Oximetry 91 Oxygen Delivery Oxygen Flow Rate 08/09/24 22:00 08/09/24 22:00 08/09/24 22:00 Temperature 37.1 C Pulse Rate 62 62 Respiratory Rate 24 H Blood Pressure 122/59 L Pulse Oximetry 92 92 Oxygen Delivery Nasal Cannula Oxygen Flow Rate 2 08/09/24 22:19 08/09/24 22:19 08/09/24 23:24 Temperature Pulse Rate 67 67 Respiratory Rate Blood Pressure 112/59 L 112/59 L Pulse Oximetry 98 Oxygen Delivery Nasal Cannula Oxygen Flow Rate 2 08/10/24 00:00 08/10/24 00:00 08/10/24 00:00 Temperature 37.4 C Pulse Rate 73 73 73 Respiratory Rate 30 H Blood Pressure 137/87 137/87 Pulse Oximetry 96 Oxygen Delivery Oxygen Flow Rate 08/10/24 01:00 08/10/24 02:00 08/10/24 02:00 Temperature Pulse Rate 74 74 73 Respiratory Rate Blood Pressure 122/74 122/72 Pulse Oximetry Oxygen Delivery Oxygen Flow Rate 08/10/24 02:00 08/10/24 02:24 08/10/24 02:24 Temperature 37.3 C Pulse Rate 73 73 73 Respiratory Rate 28 H Blood Pressure 122/72 123/56 L 123/56 L Pulse Oximetry 96 Oxygen Delivery Oxygen Flow Rate 08/10/24 04:00 08/10/24 04:00 08/10/24 04:00 Temperature 37.4 C Pulse Rate 74 74 74 Respiratory Rate 30 H Blood Pressure 125/72 125/72 Pulse Oximetry 97 Oxygen Delivery Oxygen Flow Rate 08/10/24 04:00 08/10/24 06:00 08/10/24 06:00 Temperature 37.4 C Pulse Rate 75 75 Respiratory Rate 29 H Blood Pressure 117/73 Pulse Oximetry 97 96 Oxygen Delivery Nasal Cannula Oxygen Flow Rate 2 08/10/24 06:00 08/10/24 07:03 08/10/24 07:24 Temperature Pulse Rate 74 75 75 Respiratory Rate Blood Pressure 117/73 118/74 118/74 Pulse Oximetry Oxygen Delivery Oxygen Flow Rate 08/10/24 07:26 08/10/24 08:00 08/10/24 08:00 Temperature 37.5 C Pulse Rate 75 76 76 Respiratory Rate 21 H Blood Pressure 118/74 97/74 L 97/74 L Pulse Oximetry 98 Oxygen Delivery Oxygen Flow Rate 08/10/24 08:00 08/10/24 08:00 08/10/24 09:42 Temperature Pulse Rate 79 73 Respiratory Rate Blood Pressure 103/65 Pulse Oximetry 97 Oxygen Delivery Nasal Cannula Oxygen Flow Rate 2 08/10/24 10:00 08/10/24 10:00 08/10/24 10:00 Temperature 37.4 C Pulse Rate 72 72 72 Respiratory Rate 28 H Blood Pressure 91/59 L 91/59 L Pulse Oximetry 98 Oxygen Delivery Oxygen Flow Rate 08/10/24 10:52 Temperature Pulse Rate 73 Respiratory Rate Blood Pressure 101/59 L Pulse Oximetry Oxygen Delivery Oxygen Flow Rate Intake/Output Intake/Output: Intake & Output 08/07/24 08/08/24 08/09/24 08/10/24 23:59 23:59 23:59 23:59 Intake Total 1076.0 1778.8 2122.8 976.3 Output Total 980 1500 2150 850 Balance 96.0 278.8 -27.2 126.3 Meds/Results Medications: Active Medications Generic Name Dose Route Start Last Admin Trade Name Freq PRN Reason Stop Dose Admin Acetaminophen 650 mg 08/06/24 21:36 Acetaminophen 325 Mg Tablet PO Q4H PRN Mild Pain (1-3) or Fever Hydrocodone Bitart/Acetaminophen 1 tab 08/07/24 15:27 08/09/24 20:47 Hydrocodone/Acetaminophen (*Crx) 5-325 Mg Tablet PO 1 tab Q6H PRN Administration Pain Rated 4-6 Apixaban 2.5 mg 08/07/24 09:00 Apixaban 2.5 Mg Tablet PO Q12HR SAL Bisacodyl 10 mg 08/08/24 09:00 08/10/24 08:12 Bisacodyl 10 Mg Suppository RECTAL Not Given QAM SAL Bupropion HCl 150 mg 08/07/24 09:00 08/10/24 09:00 Bupropion Hcl Sr (12 Hr) 150 Mg Tab PO 150 mg Q12HR SAL Administration Fluoxetine HCl 20 mg 08/07/24 09:00 08/10/24 08:59 Fluoxetine Hcl 20 Mg Capsule PO 20 mg DAILY SAL Administration Fluticasone Propionate 1 spray 08/07/24 09:00 08/10/24 09:00 Fluticasone Propionate 0.05% Na Spr 16 Gm Btl (*Bkc) NASAL 1 spray DAILY SAL Administration Dopamine HCl/Dextrose 400 mg in 250 mls @ 32.344 mls/hr 08/07/24 03:15 08/10/24 10:52 Dopamine 400 Mg/D5w 250 Ml IV CONT 5 mcg/kg/min .Q7H44M SAL 21.56 mls/hr Titration Protocol 7.5 MCG/KG/MIN Cefepime HCl 2 gm in 50 mls @ 100 mls/hr 08/10/24 21:00 Maxipime 2 Gm/Ns 50 Ml IVPB Q12H SAL Loratadine 10 mg 08/07/24 09:00 08/07/24 10:10 Loratadine 10 Mg Tablet PO Not Given DAILY SAL Ondansetron HCl 4 mg 08/06/24 21:36 08/09/24 23:16 Ondansetron Inj 4 Mg/2 Ml Vial IV PUSH 4 mg Q4H PRN Administration Nausea Ondansetron HCl 4 mg 08/07/24 11:08 Ondansetron Inj 4 Mg/2 Ml Vial IV PUSH ONCE PRN Nausea Pantoprazole Sodium 40 mg 08/08/24 09:00 08/10/24 09:00 Pantoprazole Sodium Iv 40 Mg Vial IV PUSH 40 mg QAM SAL Administration Polyethylene Glycol 17 gm 08/08/24 09:00 08/10/24 09:00 Polyethylene Glycol 3350 17 Gm Powd.Pack PO 17 gm QAM SAL Administration Sodium Chloride 10 ml 08/07/24 06:00 08/10/24 06:12 Central Line Flush IV PUSH 10 ml Q8HR SAL Administration Sodium Chloride 20 ml 08/07/24 02:32 Central Line Flush IV PUSH PRN PRN after blood draws Topiramate 25 mg 08/07/24 09:00 08/10/24 08:59 Topiramate 25 Mg Tablet PO 25 mg Q12HR SAL Administration Radiology Results: ITS Impressions Abdomen Ultrasound 08/06/24 20:18 IMPRESSION: Single lamellated stone within the gallbladder with a sonographic Berry sign. Chest/Abdomen/Pelvis CT 08/06/24 20:22 IMPRESSION: Findings within the chest suggesting pulmonary hypertension. Staghorn calculus within the right kidney with global enlargement of the right kidney and surrounding inflammatory change. Lamellated stone within the gallbladder without additional abnormality. Punctate foci of air within the bladder with surrounding inflammatory change suggesting cystitis. Fibroid uterus, enlarged for a patient of this age. Nonobstructing fat-containing umbilical hernia. 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 Chest X-Ray 08/07/24 05:19 Impression: Right IJ line in place. Clear lungs. Retrograde Pyelogram 08/07/24 12:44 IMPRESSION: 1. Right internal ureteral stent in expected position. Renal Ultrasound 08/07/24 15:17 IMPRESSION: No definite abnormality seen. Labs Labs: Laboratory Results - last 24 hr 08/10/24 05:52 WBC 20.1 H RBC 4.01 L Hgb 13.1 Hct 37.1 MCV 92.5 MCH 32.7 MCHC 35.3 RDW 14.7 H Plt Count 299 MPV 9.2 Sodium 139 Potassium 3.8 Chloride 106 Carbon Dioxide 26 Anion Gap 7 BUN 30 H D Creatinine 1.01 H Estim Creat Clear Calc 50 Estimated GFR 53 L Glucose 162 H Calcium 8.9 Magnesium 2.0 Total Bilirubin 2.5 H AST 154 H ALT 175 H Alkaline Phosphatase 166 H Total Protein 6.0 L Albumin 3.1 L Quality VTE Prophylaxis VTE prophylaxis: mechanical ordered and pharmacologic ordered
--- NOTE | 2024-08-10 11:14 | PCNFU ---
Nutrition Follow-Up Complete: Increased Protein needs as related to wounds as evidenced by pressure ulcers reported. Goal: Meet estimated nutritional needs. Will continue current goal. Pt current nutrition is Heart Healthy with Ensure Compact BID and Rashad BID Last recorded weight is 118 kg, up from 115 kg on admit. Bowel Motility: +BM reported 08/10 Labs Reviewed:BUN 30, GFR 53, Cr 1.10, Glu 162, Alb 3.1 Meds Noted: Dopamine, Miralax, Protonix, Eliquis Skin: Deep Tissue-Sacrum Additional Notes: Patient remains on heart healthy diet. Tolerating, 75-100% of meals. Diet supplements of Rashad BID providing an additional 80 kcal/2.5 gm protein/7 gm arginine, 7 gm glutamine. Ensure Compact BID providing 220 kcal and 9 gm protein. Agree with diet orders. Will monitor weight labs, skin, oral intake, meds every 7 days.
--- NOTE | 2024-08-10 11:30 | ECG_ITS ---
Test Date: 2024-08-10 12:06:49 Measurements Intervals [place] Rate: 68 P: 265 [place]: 233 QRS: 9 QRSD: 139 T: 112 QT: 413 QTc: 440 Interpretive Statements PROBABLY ACCELERATED JUNCTIONAL RHYTHM WITH OCCASIONAL SUPRAVENTRICULAR PREMATURE COMPLEXES INTRAVENTRICULAR CONDUCTION DELAY [130+ ms QRS DURATION] ANTEROSEPTAL MYOCARDIAL INFARCTION ABNORMAL ECG Compared to ECG 08/06/2024 21:50:10 First degree AV block now present Intraventricular conduction delay now present Myocardial infarct finding now present Electronically Signed On 08-11-2024 10:34:25 [employer]UG CAPTAIN by Catalino Houston M.D.
[2024-08-10] MEDS: POTASSIUM CHLORIDE 20 MEQ ER TABLET PO (11:42)
--- NOTE | 2024-08-10 13:18 | PCOTNOTE ---
Attempted to see patient with Okay from RN. Patient became kota and was unsafe to continue. RN aware.
[2024-08-10 14:43] LABS: Abnormal Protein Band 1 19 mg/dL (NONE DETECTED)
[2024-08-10] MEDS: DOPamine 400 MG/D5W 250 ML 400 MG/250 ML BAG 32.34 MG IV CONT (14:43)
--- NOTE | 2024-08-10 15:03 | PCPTNOTE ---
The patient treatment was not able to be completed at this time due to patient having low HR at rest. Will plan to continue treatment per plan of care.
--- NOTE | 2024-08-10 17:13 | P.PNCA_ITS ---
Progress Note: A&P Assessment and Plan (1) Bradyarrhythmia: Code(s): I49.8 - Other specified cardiac arrhythmias Status: Acute Assessment and Plan: Initial EKG shows possible two-to-one AV block. Subsequent EKG difficult to interpret because of the tracing quality. On telemetry she appears to have intermittent 2-1 block and junctional rhythm with nonconducted PACs. In setting of septic shock, acute renal failure. * Hold Amiodarone, Coreg. Allow for washout. * Continue dopamine drip. Unfortunately, her dopamine dose is actually been increased at this point. Will continue to try and decrease dopamine * If her heart rate/rhythm remains slow/irregular with a sufficient washout period for amiodarone and Coreg and we are unable to wean dopamine, she may require implantation of permanent pacemaker. * TSH is normal * Keep electrolytes optimized (2) Elevated troponin: Code(s): R79.89 - Other specified abnormal findings of blood chemistry Status: Acute Assessment and Plan: Very mildly elevated and trended down. She denies any chest pain. Mild troponin leak does not represent ACS in this situation; probably secondary to hypotension, acute kidney injury. (3) Chronic anticoagulation: Code(s): Z79.01 - long-term (current) use of anticoagulants Status: Acute Assessment and Plan: Continue Eliquis for cardioembolic risk reduction with atrial flutter. Unsure of her baseline renal function is, however, if renal function improves her apixaban dose should be increased to 5 mg PO BID (4) Acute renal failure: Qualifiers: Acute renal failure type: unspecified Qualified Code(s): N17.9 - Acute kidney failure, unspecified Code(s): N17.9 - Acute kidney failure, unspecified Status: Acute Assessment and Plan: Secondary to right staghorn calculus of the kidney. Status post cystoscopy and stent placement. Creatinine is improving. (5) Septic shock: Code(s): A41.9 - Sepsis, unspecified organism; R65.21 - Severe sepsis with septic shock Status: Acute Assessment and Plan: Blood cultures growing Gram negative bacili. Management as per ICU team. Subjective Date/time seen: 08/10/24 17:13 Interval history: Reason for visit: Bradycardia HPI: Lupis Juarez is a 79-year-old female with atrial flutter, history of takotsubo cardiomyopathy, and valvular heart disease. This is a patient who is followed by [facility] in [place]. She comes to [facility] because of generalized weakness. Cardiology is consulted because of bradycardia. At the time of my evaluation, patient is having significant pain, stating that she feels that she has to urinate but is unable to and is unable to provide much of a history. She is however able to tell me that prior to admission to the hospital she had not experienced any syncope, presyncope, chest pain, or shortness of breath. She does have occasional lightheadedness and dizziness. Because of hypotension and heart rates in the 40s on arrival to the hospital, she was placed on a dopamine drip and her hemodynamics have stabilized. Date of service 08/08: Tele with heart rates in the 60s-70s. Appears to be junctional to me. Remains on Dopamine. Blood cultures are growing Gram negative bacilli. Date of service 08/09/2024: Heart rate remains stable mostly in the 60's in what appears to be a junctional rhythm. She feels ok today, complains of some abdominal discomfort but is otherwise without any complaint. Date of service 08/10/2024: Feeling a little bit better today. Does not have any complaints. She remains on dopamine in her dose has been increased from yesterday. Today her telemetry looks like atrial fibrillation with rates in the 50s, 60s Review of Systems Review of Systems: All systems reviewed & are unremarkable except as noted in HPI and below (HPI) Exam Narrative: Obese, ill-appearing female lying supine in bed Const: General: no acute distress, alert, awake and uncomfortable (Intermittently uncomfortable because of pain) Orientation/consciousness: patient oriented x3 Other: Ill appearing female in no acute distress HENMT: Head: normal to inspection Mouth: Yes dry mucous membranes Eyes: General: appearance normal, both eyes and all related structures Sclera: sclerae normal Pupils: Equal, round and reactive pupils present Neck: Neck: normal visual inspection, supple and no JVD Carotids: normal carotid upstroke Resp: Effort & Inspection: normal respiratory effort Auscultation: crackles Cardio: Rate: regular rate Rhythm: abnormal rhythm (Irregular rhythm) Heart sounds: S1 normal heart sound present, S2 normal heart sound present and no murmurs GI: Auscultation: normal bowel sounds Urinary Catheter: Urinary Catheter: patent and draining Skin: General skin exam: normal color Neuro: General: patient oriented x3 Cranial nerves: Yes Equal, round and reactive pupils present Speech: normal speech Extrem: General: no edema Psych: Appearance: grossly normal Mental Status: mental status grossly normal Affect: normal affect Objective Data Vital Signs Vital Signs: Vital Signs - 24 hr 08/09/24 18:00 08/09/24 18:00 08/09/24 18:00 Temperature 36.9 C Pulse Rate 45 L 52 L 67 Respiratory Rate 17 Blood Pressure 90/30 L 110/77 Pulse Oximetry 92 Oxygen Delivery Oxygen Flow Rate 08/09/24 18:10 08/09/24 18:15 08/09/24 20:00 Temperature Pulse Rate 63 40 L 61 Respiratory Rate Blood Pressure 87/48 L 98/46 L 106/60 Pulse Oximetry Oxygen Delivery Oxygen Flow Rate 08/09/24 20:00 08/09/24 20:00 08/09/24 20:00 Temperature 37.1 C Pulse Rate 66 68 Respiratory Rate 25 H Blood Pressure 106/60 Pulse Oximetry 91 91 Oxygen Delivery Room Air Oxygen Flow Rate 08/09/24 21:45 08/09/24 21:55 08/09/24 22:00 Temperature Pulse Rate 26 L 38 L Respiratory Rate Blood Pressure 113/50 L 113/50 L Pulse Oximetry 92 Oxygen Delivery Nasal Cannula Oxygen Flow Rate 2 08/09/24 22:00 08/09/24 22:00 08/09/24 22:19 Temperature 37.1 C Pulse Rate 62 62 67 Respiratory Rate 24 H Blood Pressure 122/59 L 112/59 L Pulse Oximetry 92 Oxygen Delivery Oxygen Flow Rate 08/09/24 22:19 08/09/24 23:24 08/10/24 00:00 Temperature Pulse Rate 67 73 Respiratory Rate Blood Pressure 112/59 L 137/87 Pulse Oximetry 98 Oxygen Delivery Nasal Cannula Oxygen Flow Rate 2 08/10/24 00:00 08/10/24 00:00 08/10/24 01:00 Temperature 37.4 C Pulse Rate 73 73 74 Respiratory Rate 30 H Blood Pressure 137/87 122/74 Pulse Oximetry 96 Oxygen Delivery Oxygen Flow Rate 08/10/24 02:00 08/10/24 02:00 08/10/24 02:00 Temperature 37.3 C Pulse Rate 74 73 73 Respiratory Rate 28 H Blood Pressure 122/72 122/72 Pulse Oximetry 96 Oxygen Delivery Oxygen Flow Rate 08/10/24 02:24 08/10/24 02:24 08/10/24 04:00 Temperature Pulse Rate 73 73 74 Respiratory Rate Blood Pressure 123/56 L 123/56 L 125/72 Pulse Oximetry Oxygen Delivery Oxygen Flow Rate 08/10/24 04:00 08/10/24 04:00 08/10/24 04:00 Temperature 37.4 C Pulse Rate 74 74 Respiratory Rate 30 H Blood Pressure 125/72 Pulse Oximetry 97 97 Oxygen Delivery Nasal Cannula Oxygen Flow Rate 2 08/10/24 06:00 08/10/24 06:00 08/10/24 06:00 Temperature 37.4 C Pulse Rate 75 75 74 Respiratory Rate 29 H Blood Pressure 117/73 117/73 Pulse Oximetry 96 Oxygen Delivery Oxygen Flow Rate 08/10/24 07:03 08/10/24 07:24 08/10/24 07:26 Temperature Pulse Rate 75 75 75 Respiratory Rate Blood Pressure 118/74 118/74 118/74 Pulse Oximetry Oxygen Delivery Oxygen Flow Rate 08/10/24 08:00 08/10/24 08:00 08/10/24 08:00 Temperature 37.5 C Pulse Rate 76 76 Respiratory Rate 21 H Blood Pressure 97/74 L 97/74 L Pulse Oximetry 98 97 Oxygen Delivery Nasal Cannula Oxygen Flow Rate 2 08/10/24 08:00 08/10/24 09:42 08/10/24 10:00 Temperature Pulse Rate 79 73 72 Respiratory Rate Blood Pressure 103/65 91/59 L Pulse Oximetry Oxygen Delivery Oxygen Flow Rate 08/10/24 10:00 08/10/24 10:00 08/10/24 10:52 Temperature 37.4 C Pulse Rate 72 72 73 Respiratory Rate 28 H Blood Pressure 91/59 L 101/59 L Pulse Oximetry 98 Oxygen Delivery Oxygen Flow Rate 08/10/24 11:57 08/10/24 12:00 08/10/24 12:00 Temperature 37.3 C Pulse Rate 69 69 Respiratory Rate 23 H Blood Pressure 81/66 L 89/53 L Pulse Oximetry 99 100 Oxygen Delivery Nasal Cannula Oxygen Flow Rate 2 08/10/24 12:00 08/10/24 14:00 08/10/24 14:00 Temperature 37.3 C Pulse Rate 69 57 L 57 L Respiratory Rate 23 H Blood Pressure 114/47 L 114/47 L Pulse Oximetry 98 Oxygen Delivery Oxygen Flow Rate 08/10/24 14:00 08/10/24 14:43 08/10/24 14:43 Temperature Pulse Rate 57 L 55 L 55 L Respiratory Rate Blood Pressure 120/74 120/74 Pulse Oximetry Oxygen Delivery Oxygen Flow Rate 08/10/24 14:45 08/10/24 16:00 08/10/24 17:07 Temperature Pulse Rate 45 L 76 77 Respiratory Rate Blood Pressure 129/73 132/88 116/71 Pulse Oximetry Oxygen Delivery Oxygen Flow Rate Intake/Output Intake/Output: Intake & Output 08/07/24 08/08/24 08/09/24 08/10/24 23:59 23:59 23:59 23:59 Intake Total 1076.0 1778.8 2122.8 1432.3 Output Total 980 1500 2150 850 Balance 96.0 278.8 -27.2 582.3 Meds/Results Medications: Active Medications Generic Name Dose Route Start Last Admin Trade Name Freq PRN Reason Stop Dose Admin Acetaminophen 650 mg 08/06/24 21:36 Acetaminophen 325 Mg Tablet PO Q4H PRN Mild Pain (1-3) or Fever Hydrocodone Bitart/Acetaminophen 1 tab 08/07/24 15:27 08/09/24 20:47 Hydrocodone/Acetaminophen (*Crx) 5-325 Mg Tablet PO 1 tab Q6H PRN Administration Pain Rated 4-6 Apixaban 2.5 mg 08/07/24 09:00 Apixaban 2.5 Mg Tablet PO Q12HR SAL Bisacodyl 10 mg 08/08/24 09:00 08/10/24 08:12 Bisacodyl 10 Mg Suppository RECTAL Not Given QAM SAL Bupropion HCl 150 mg 08/07/24 09:00 08/10/24 09:00 Bupropion Hcl Sr (12 Hr) 150 Mg Tab PO 150 mg Q12HR SAL Administration Fluoxetine HCl 20 mg 08/07/24 09:00 08/10/24 08:59 Fluoxetine Hcl 20 Mg Capsule PO 20 mg DAILY SAL Administration Fluticasone Propionate 1 spray 08/07/24 09:00 08/10/24 09:00 Fluticasone Propionate 0.05% Na Spr 16 Gm Btl (*Bkc) NASAL 1 spray DAILY SAL Administration Dopamine HCl/Dextrose 400 mg in 250 mls @ 32.344 mls/hr 08/07/24 03:15 08/10/24 17:07 Dopamine 400 Mg/D5w 250 Ml IV CONT 7.5 mcg/kg/min .Q7H44M SAL 32.34 mls/hr Titration Protocol 7.5 MCG/KG/MIN Cefepime HCl 2 gm in 50 mls @ 100 mls/hr 08/10/24 21:00 Maxipime 2 Gm/Ns 50 Ml IVPB Q12H SAL Loratadine 10 mg 08/07/24 09:00 08/07/24 10:10 Loratadine 10 Mg Tablet PO Not Given DAILY SAL Ondansetron HCl 4 mg 08/06/24 21:36 08/09/24 23:16 Ondansetron Inj 4 Mg/2 Ml Vial IV PUSH 4 mg Q4H PRN Administration Nausea Ondansetron HCl 4 mg 08/07/24 11:08 Ondansetron Inj 4 Mg/2 Ml Vial IV PUSH ONCE PRN Nausea Pantoprazole Sodium 40 mg 08/08/24 09:00 08/10/24 09:00 Pantoprazole Sodium Iv 40 Mg Vial IV PUSH 40 mg QAM SAL Administration Polyethylene Glycol 17 gm 08/08/24 09:00 08/10/24 09:00 Polyethylene Glycol 3350 17 Gm Powd.Pack PO 17 gm QAM SAL Administration Sodium Chloride 10 ml 08/07/24 06:00 08/10/24 12:38 Central Line Flush IV PUSH Not Given Q8HR SAL Sodium Chloride 20 ml 08/07/24 02:32 Central Line Flush IV PUSH PRN PRN after blood draws Topiramate 25 mg 08/07/24 09:00 08/10/24 08:59 Topiramate 25 Mg Tablet PO 25 mg Q12HR SAL Administration Radiology Results: ITS Impressions Abdomen Ultrasound 08/06/24 20:18 IMPRESSION: Single lamellated stone within the gallbladder with a sonographic Berry sign. Chest/Abdomen/Pelvis CT 08/06/24 20:22 IMPRESSION: Findings within the chest suggesting pulmonary hypertension. Staghorn calculus within the right kidney with global enlargement of the right kidney and surrounding inflammatory change. Lamellated stone within the gallbladder without additional abnormality. Punctate foci of air within the bladder with surrounding inflammatory change suggesting cystitis. Fibroid uterus, enlarged for a patient of this age. Nonobstructing fat-containing umbilical hernia. 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 Chest X-Ray 08/07/24 05:19 Impression: Right IJ line in place. Clear lungs. Retrograde Pyelogram 08/07/24 12:44 IMPRESSION: 1. Right internal ureteral stent in expected position. Renal Ultrasound 08/07/24 15:17 IMPRESSION: No definite abnormality seen. Labs Labs: Laboratory Results - last 24 hr 08/07/24 08/10/24 17:30 05:52 WBC 20.1 H RBC 4.01 L Hgb 13.1 Hct 37.1 MCV 92.5 MCH 32.7 MCHC 35.3 RDW 14.7 H Plt Count 299 MPV 9.2 Sodium 139 Potassium 3.8 Chloride 106 Carbon Dioxide 26 Anion Gap 7 BUN 30 H D Creatinine 1.01 H Estim Creat Clear Calc 50 Estimated GFR 53 L Glucose 162 H Calcium 8.9 Magnesium 2.0 Total Bilirubin 2.5 H AST 154 H ALT 175 H Alkaline Phosphatase 166 H Total Protein 6.0 L Albumin 3.1 L Urine Albumin 40 U [id number] 6 U [id number] 15 U Beta Globulin 13 U Gamma Globulin 27 U Abnormal Prot Band 1 19 H Urine PEP Interpret See note
[2024-08-10] MEDS: CEFEPIME 2 GM/NS 50 ML 2 GM/50 ML BAG IVPB (21:28)
[2024-08-10] MEDS: DOPamine 400 MG/D5W 250 ML 400 MG/250 ML BAG 43.13 MG IV CONT (22:07)
[2024-08-11] VITALS (18 sets, daily range): BP systolic 87–110; BP diastolic 54–73; PULSE 72–727; RESP 14–31; TEMP 37.2–37.7; O2SAT 93–100
[2024-08-11] MEDS: DOPamine 400 MG/D5W 250 ML 400 MG/250 ML BAG 32.34 MG IV CONT ×3 (05:03→21:08)
[2024-08-11] MEDS: CENTRAL LINE FLUSH 10 ML IV PUSH ×3 (05:04→21:09)
[2024-08-11 05:17] LABS: Hematocrit 34.6 % (37.0-47.0); Hemoglobin 12.2 g/dL (12.0-15.0); Mean Corpuscular HGB Conc 35.3 g/dl (32-36); Mean Corpuscular Hemoglobin 32.6 pg (26-34); Mean Corpuscular Volume 92.5 fl (80-100); Mean Platelet Volume 9.3 fl (7.4-10.4); Platelet Count Result 265 k/mm3 (150-375); Red Blood Count 3.74 M/mm3 (4.2-5.4); White Blood Count 17.8 K/mm3 (4.5-10.0)
[2024-08-11 05:39] LABS: Alanine Aminotransferase 144 U/L (6-35); Albumin Level 2.7 g/dL (3.5-5.1); Alkaline Phosphatase 160 U/L (38-126); Anion Gap 3 mmol/L (4-12); Aspartate Amino Transferase 128 U/L (14-36); Bilirubin,Total 1.9 mg/dL (0.2-1.3); Blood Urea Nitrogen 21 mg/dL (7-17); Calcium 8.8 mg/dL (8.4-10.2); Carbon Dioxide 26 mmol/L (22-30); Chloride 107 mmol/L (98-107); Estimated CRCL calculation 64 ml/min; Estimated Glomerular Filt Rate > 60; Glucose 117 mg/dL (65-110); Magnesium 1.8 mg/dL (1.6-2.3); Potassium 3.6 mmol/L (3.4-5.0); Sodium 136 mmol/L (137-145)
[2024-08-11 05:44] LABS: Protein, Total 5.5 g/dL (6.1-8.1)
--- NOTE | 2024-08-11 08:36 | WPDINTPN ---
Progress Note: A&P Assessment and Plan (1) Septic shock: Code(s): A41.9 - Sepsis, unspecified organism; R65.21 - Severe sepsis with septic shock Status: Acute Assessment and Plan: 08/06: Patient presented with generalized weakness, hypovolemia, hypotension, leukocytosis, was found to be in septic shock, likely related to UTI and hypovolemia -patient was adequately fluid resuscitated and is off of crystalloids -continue dopamine for bradycardia and hypotension, maintain MAP > 65 mmHg for adequate end organ perfusion and heart rate above 50 -08/06: Blood cultures growing Proteus mirabilis which is solis sensitive -continue cefepime (08/06), but will off of vancomycin -08/10 repeat blood cultures ordered as patient will likely need pacemaker. Results negative till now (2) UTI (urinary tract infection): Qualifiers: Hematuria presence: with hematuria Urinary tract infection type: acute cystitis Qualified Code(s): N30.01 - Acute cystitis with hematuria Code(s): N39.0 - Urinary tract infection, site not specified Status: Acute Assessment and Plan: UTI could be related to staghorn calculus in the right kidney or cystitis -antibiotics as above (3) Staghorn calculus: Code(s): N20.0 - Calculus of kidney Status: Acute Assessment and Plan: 08/06: CT chest abdomen and pelvis: Findings within the chest suggesting pulmonary hypertension.Staghorn calculus within the right kidney with global enlargement of the right kidney and surrounding inflammatory change. Lamellated stone within the gallbladder without additional abnormality. Punctate foci of air within the bladder with surrounding inflammatory change suggesting cystitis. Fibroid uterus, enlarged for a patient of this age. Nonobstructing fat-containing umbilical hernia. 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 08/07 status post Cystoscopy, right retrograde, right ureteral stent placement 6 [place] contour, [place] catheter placement (4) Bradyarrhythmia: Code(s): I49.8 - Other specified cardiac arrhythmias Status: Acute Assessment and Plan: Patient has Moreno cardia which appears to be junctional rhythm. Bradycardia could be related to hypovolemia, but continue to take her home medications amiodarone, Coreg -she continues to be bradycardic and yesterday during physical therapy the heart rate dropped to 20s and 30s movement early. -patient currently on dopamine for bradycardia and hypotension. Continue to titrate -cardiology following and patient will likely need permanent pacemaker -continue to hold amiodarone and AV annmarie blocking agents -patient is agreeable to pacemaker placement if needed. (5) Acute renal failure: Qualifiers: Acute renal failure type: unspecified Qualified Code(s): N17.9 - Acute kidney failure, unspecified Code(s): N17.9 - Acute kidney failure, unspecified Status: Acute Assessment and Plan: Acute renal failure likely related to hypovolemia, decreased oral intake, says septic shock/infection Improved with IV fluids and creatinine trending down and close to normal, urine output improved -continue to monitor urine output, renal function electrolytes -nephrology was consulted from ER (6) Electrolyte imbalance: Code(s): E87.8 - Other disorders of electrolyte and fluid balance, not elsewhere classified Status: Acute Assessment and Plan: Replace potassium (7) Atrial fibrillation: Qualifiers: Atrial fibrillation type: paroxysmal Qualified Code(s): I48.0 - Paroxysmal atrial fibrillation Code(s): I48.91 - Unspecified atrial fibrillation Status: Acute Assessment and Plan: Patient has a history of atrial fibrillation on Eliquis at home. She takes amiodarone and Coreg at home -currently bradycardic and hypotensive -continue to hold home medications -hold Eliquis as patient has cystoscopy and has hematuria and will likely need permanent pacemaker (8) Cholelithiasis without cholecystitis: Code(s): K80.20 - Calculus of gallbladder without cholecystitis without obstruction Status: Acute Assessment and Plan: Ultrasound shows large single gallbladder stone. Radiologic Berry sign was positive. No other changes of cholecystitis or obstruction was seen. Patient was evaluated by general surgery and recommended conservative management at this time. No plan for surgical intervention (9) Transaminitis: Code(s): R74.01 - Elevation of levels of liver transaminase levels Status: Acute Assessment and Plan: Multifactorial. Improved Monitor. Plan DVT prophylaxis: Eliquis currently on hold due to hematuria and possible per pacemaker placement Stress ulcer prophylaxis: Protonix Nutrition: Diet ordered Code Status: Do not resuscitate Consult PT OT Up in chair Incentive spirometer Critical Care Time Spent: 30 minutes Due to a high probability of clinically significant, life threatening deterioration, the patient required my highest level of preparedness to intervene emergently and I personally spent this critical care time directly and personally managing the patient. This critical care time included obtaining a history; examining the patient; pulse oximetry; ordering and review of studies; arranging urgent treatment with development of a management plan; evaluation of patient's response to treatment; frequent reassessment; and discussions with other providers. It was exclusive of separately billable procedures and treating other patients and teaching time. Please see Assessment and Plan section and the rest of the note for further information on patient assessment and treatment This dictation may have been done utilizing a voice recognition system. Attempts have been made to correct errors. However, there may be uncorrected grammatical, spelling, and recognitions errors present. Subjective Date/time seen: 08/11/24 Afebrile. Continues to be on dopamine infusion. Denies any new complaints. Good Urine output Tolerating p.o. diet Patient denies fever, chest pain, shortness of breath, cough, nausea vomiting, abdominal pain,, diarrhea, headache or constipation. All other systems were reviewed and were negative Review of Systems Review of Systems: All systems reviewed & are unremarkable except as noted in HPI and below Exam Narrative: General: Pleasant female in no acute distress HEENT:? Pupils equal and reactive, sclera is clear, moist oral mucosa, some Neck:? Supple Respiratory:? Clear to auscultation bilaterally, decreased breath sounds at bases, adequate air entry, no wheeze Cardiac:? Sinus bradycardia Abdomen:? Soft, obese, tender to palpation around the umbilicus, normoactive bowel sounds Extremities:? Trace edema, palpable pedal pulses Neuro:? Patient is awake, alert, oriented x 3 Skin:? Warm and dry Psych:? Flat affect Objective Data Vital Signs Vital Signs: Vital Signs - 24 hr 08/10/24 09:42 08/10/24 10:00 08/10/24 10:00 Temperature Pulse Rate 73 72 72 Respiratory Rate Blood Pressure 103/65 91/59 L Pulse Oximetry Oxygen Delivery Oxygen Flow Rate 08/10/24 10:00 08/10/24 10:52 08/10/24 11:57 Temperature 37.4 C Pulse Rate 72 73 69 Respiratory Rate 28 H Blood Pressure 91/59 L 101/59 L 81/66 L Pulse Oximetry 98 Oxygen Delivery Oxygen Flow Rate 08/10/24 12:00 08/10/24 12:00 08/10/24 12:00 Temperature 37.3 C Pulse Rate 69 69 Respiratory Rate 23 H Blood Pressure 89/53 L Pulse Oximetry 99 100 Oxygen Delivery Nasal Cannula Oxygen Flow Rate 2 08/10/24 14:00 08/10/24 14:00 08/10/24 14:00 Temperature 37.3 C Pulse Rate 57 L 57 L 57 L Respiratory Rate 23 H Blood Pressure 114/47 L 114/47 L Pulse Oximetry 98 Oxygen Delivery Oxygen Flow Rate 08/10/24 14:43 08/10/24 14:43 08/10/24 14:45 Temperature Pulse Rate 55 L 55 L 45 L Respiratory Rate Blood Pressure 120/74 120/74 129/73 Pulse Oximetry Oxygen Delivery Oxygen Flow Rate 08/10/24 16:00 08/10/24 16:00 08/10/24 16:00 Temperature Pulse Rate 76 75 Respiratory Rate Blood Pressure 132/88 Pulse Oximetry 100 Oxygen Delivery Nasal Cannula Oxygen Flow Rate 2 08/10/24 16:00 08/10/24 17:07 08/10/24 18:00 Temperature 37.4 C Pulse Rate 76 77 72 Respiratory Rate 18 Blood Pressure 132/88 116/71 107/66 Pulse Oximetry 99 Oxygen Delivery Oxygen Flow Rate 08/10/24 18:00 08/10/24 18:00 08/10/24 20:00 Temperature 37.4 C Pulse Rate 72 72 73 Respiratory Rate 22 H Blood Pressure 107/66 105/60 Pulse Oximetry 99 Oxygen Delivery Oxygen Flow Rate 08/10/24 20:00 08/10/24 20:00 08/10/24 20:00 Temperature 37.3 C Pulse Rate 71 71 Respiratory Rate 28 H Blood Pressure 105/60 Pulse Oximetry 99 99 Oxygen Delivery Nasal Cannula Oxygen Flow Rate 2 08/10/24 21:40 08/10/24 22:00 08/10/24 22:00 Temperature 37.2 C Pulse Rate 71 72 72 Respiratory Rate 26 H Blood Pressure 82/48 L 82/48 L Pulse Oximetry 99 Oxygen Delivery Oxygen Flow Rate 08/10/24 22:07 08/10/24 22:19 08/10/24 23:07 Temperature Pulse Rate 71 71 69 Respiratory Rate Blood Pressure 82/48 L 92/59 L 105/72 Pulse Oximetry Oxygen Delivery Oxygen Flow Rate 08/10/24 23:18 08/11/24 00:00 08/11/24 00:00 Temperature Pulse Rate 76 72 Respiratory Rate Blood Pressure 105/62 97/57 L Pulse Oximetry 98 Oxygen Delivery Nasal Cannula Oxygen Flow Rate 2 08/11/24 00:00 08/11/24 00:00 08/11/24 02:00 Temperature 37.3 C Pulse Rate 72 72 73 Respiratory Rate 21 H Blood Pressure 97/57 L Pulse Oximetry 98 Oxygen Delivery Oxygen Flow Rate 08/11/24 02:00 08/11/24 02:00 08/11/24 04:00 Temperature 37.3 C Pulse Rate 73 73 75 Respiratory Rate 23 H Blood Pressure 110/64 110/64 107/72 Pulse Oximetry 100 Oxygen Delivery Oxygen Flow Rate 08/11/24 04:00 08/11/24 04:00 08/11/24 04:00 Temperature 37.3 C Pulse Rate 74 727 H Respiratory Rate 31 H Blood Pressure 107/72 Pulse Oximetry 93 94 Oxygen Delivery Room Air Oxygen Flow Rate 08/11/24 05:03 08/11/24 05:03 08/11/24 06:00 Temperature Pulse Rate 74 74 73 Respiratory Rate Blood Pressure 87/62 L 87/62 L Pulse Oximetry Oxygen Delivery Oxygen Flow Rate 08/11/24 06:00 08/11/24 06:03 08/11/24 08:00 Temperature 37.3 C 37.2 C Pulse Rate 73 73 75 Respiratory Rate 25 H 23 H Blood Pressure 96/73 L 96/73 L 103/69 Pulse Oximetry 99 100 Oxygen Delivery Oxygen Flow Rate Intake/Output Intake/Output: Intake & Output 08/08/24 08/09/24 08/10/24 08/11/24 23:59 23:59 23:59 23:59 Intake Total 1778.8 2122.8 2178.1 578.3 Output Total 1500 2150 1500 800 Balance 278.8 -27.2 678.1 -221.7 Meds/Results Medications: Active Medications Generic Name Dose Route Start Last Admin Trade Name Freq PRN Reason Stop Dose Admin Acetaminophen 650 mg 08/06/24 21:36 Acetaminophen 325 Mg Tablet PO Q4H PRN Mild Pain (1-3) or Fever Hydrocodone Bitart/Acetaminophen 1 tab 08/07/24 15:27 08/09/24 20:47 Hydrocodone/Acetaminophen (*Crx) 5-325 Mg Tablet PO 1 tab Q6H PRN Administration Pain Rated 4-6 Apixaban 2.5 mg 08/07/24 09:00 Apixaban 2.5 Mg Tablet PO Q12HR SAL Bisacodyl 10 mg 08/08/24 09:00 08/10/24 08:12 Bisacodyl 10 Mg Suppository RECTAL Not Given QAM SAL Bupropion HCl 150 mg 08/07/24 09:00 08/10/24 21:28 Bupropion Hcl Sr (12 Hr) 150 Mg Tab PO 150 mg Q12HR SAL Administration Fluoxetine HCl 20 mg 08/07/24 09:00 08/10/24 08:59 Fluoxetine Hcl 20 Mg Capsule PO 20 mg DAILY SAL Administration Fluticasone Propionate 1 spray 08/07/24 09:00 08/10/24 09:00 Fluticasone Propionate 0.05% Na Spr 16 Gm Btl (*Bkc) NASAL 1 spray DAILY SAL Administration Dopamine HCl/Dextrose 400 mg in 250 mls @ 32.344 mls/hr 08/07/24 03:15 08/11/24 06:03 Dopamine 400 Mg/D5w 250 Ml IV CONT 7.5 mcg/kg/min .Q7H44M SAL 32.34 mls/hr Titration Protocol 7.5 MCG/KG/MIN Cefepime HCl 2 gm in 50 mls @ 100 mls/hr 08/10/24 21:00 08/10/24 22:00 Maxipime 2 Gm/Ns 50 Ml IVPB Infused Q12H SAL Infusion Loratadine 10 mg 08/07/24 09:00 08/07/24 10:10 Loratadine 10 Mg Tablet PO Not Given DAILY SAL Ondansetron HCl 4 mg 08/06/24 21:36 08/09/24 23:16 Ondansetron Inj 4 Mg/2 Ml Vial IV PUSH 4 mg Q4H PRN Administration Nausea Ondansetron HCl 4 mg 08/07/24 11:08 Ondansetron Inj 4 Mg/2 Ml Vial IV PUSH ONCE PRN Nausea Pantoprazole Sodium 40 mg 08/08/24 09:00 08/10/24 09:00 Pantoprazole Sodium Iv 40 Mg Vial IV PUSH 40 mg QAM SAL Administration Polyethylene Glycol 17 gm 08/08/24 09:00 08/10/24 09:00 Polyethylene Glycol 3350 17 Gm Powd.Pack PO 17 gm QAM SAL Administration Sodium Chloride 10 ml 08/07/24 06:00 08/11/24 05:04 Central Line Flush IV PUSH 10 ml Q8HR SAL Administration Sodium Chloride 20 ml 08/07/24 02:32 Central Line Flush IV PUSH PRN PRN after blood draws Topiramate 25 mg 08/07/24 09:00 08/10/24 21:28 Topiramate 25 Mg Tablet PO 25 mg Q12HR SAL Administration Radiology Results: ITS Impressions Abdomen Ultrasound 08/06/24 20:18 IMPRESSION: Single lamellated stone within the gallbladder with a sonographic Berry sign. Chest/Abdomen/Pelvis CT 08/06/24 20:22 IMPRESSION: Findings within the chest suggesting pulmonary hypertension. Staghorn calculus within the right kidney with global enlargement of the right kidney and surrounding inflammatory change. Lamellated stone within the gallbladder without additional abnormality. Punctate foci of air within the bladder with surrounding inflammatory change suggesting cystitis. Fibroid uterus, enlarged for a patient of this age. Nonobstructing fat-containing umbilical hernia. 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 Chest X-Ray 08/07/24 05:19 Impression: Right IJ line in place. Clear lungs. Retrograde Pyelogram 08/07/24 12:44 IMPRESSION: 1. Right internal ureteral stent in expected position. Renal Ultrasound 08/07/24 15:17 IMPRESSION: No definite abnormality seen. Labs Labs: Laboratory Results - last 24 hr 08/07/24 08/08/24 08/11/24 17:30 05:32 05:11 WBC 17.8 H RBC 3.74 L Hgb 12.2 Hct 34.6 L MCV 92.5 MCH 32.6 MCHC 35.3 RDW 15.0 H Plt Count 265 MPV 9.3 Sodium 136 L Potassium 3.6 Chloride 107 Carbon Dioxide 26 Anion Gap 3 L BUN 21 H Creatinine 0.78 Estim Creat Clear Calc 64 Estimated GFR > 60 Glucose 117 H Calcium 8.8 Magnesium 1.8 Total Bilirubin 1.9 H AST 128 H ALT 144 H Alkaline Phosphatase 160 H Total Protein 5.5 L 6.0 L Albumin 2.7 L Urine Albumin 40 U [id number] 6 U [id number] 15 U Beta Globulin 13 U Gamma Globulin 27 U Abnormal Prot Band 1 19 H Urine PEP Interpret See note Quality VTE Prophylaxis VTE prophylaxis: mechanical ordered and pharmacologic ordered
[2024-08-11] MEDS: polyethylene glycoL 3350 17 GM POWD.PACK PO (08:59)
[2024-08-11] MEDS: buPROPion HCL SR (12 HR) 150 MG TAB PO ×2 (08:59→21:08)
[2024-08-11] MEDS: PANTOPRAZOLE SODIUM IV 40 MG VIAL IV PUSH (08:59)
[2024-08-11] MEDS: BISACODYL 10 MG SUPPOSITORY RECTAL (08:59)
[2024-08-11] MEDS: POTASSIUM CHLORIDE 20 MEQ ER TABLET 40 MEQ PO (08:59)
[2024-08-11] MEDS: FLUoxetine HCL 20 MG CAPSULE PO (08:59)
[2024-08-11] MEDS: TOPIRAMATE 25 MG TABLET PO ×2 (08:59→21:08)
[2024-08-11] MEDS: FLUTICASONE PROPIONATE 0.05% NA SPR 16 GM BTL (*BKC) 1 SPRAY NASAL (09:04)
[2024-08-11] MEDS: CEFEPIME 2 GM/NS 50 ML 2 GM/50 ML BAG IVPB ×2 (09:04→21:09)
--- NOTE | 2024-08-11 11:05 | PM.EVENT ---
Event Note Event Note Event Note: Dr. Farrell check doubt to follow this patient from a distance. Creatinine is normal today.
--- NOTE | 2024-08-11 13:06 | P.PNCA_ITS ---
Progress Note: A&P Assessment and Plan (1) Bradyarrhythmia: Code(s): I49.8 - Other specified cardiac arrhythmias Status: Acute Assessment and Plan: Initial EKG shows possible two-to-one AV block. Subsequent EKG difficult to interpret because of the tracing quality. On telemetry she appears to have intermittent 2-1 block and junctional rhythm with nonconducted PACs. In setting of septic shock, acute renal failure. * Hold Amiodarone, Coreg. Allow for washout. * Continue dopamine drip. At this point any decrease in dopamine resultant bradycardia and hypotension. Needs a pacemaker when able * If her heart rate/rhythm remains slow/irregular with a sufficient washout period for amiodarone and Coreg and we are unable to wean dopamine, she may require implantation of permanent pacemaker. * TSH is normal * Keep electrolytes optimized (2) Elevated troponin: Code(s): R79.89 - Other specified abnormal findings of blood chemistry Status: Acute Assessment and Plan: Very mildly elevated and trended down. She denies any chest pain. Mild troponin leak does not represent ACS in this situation; probably secondary to hypotension, acute kidney injury. (3) Chronic anticoagulation: Code(s): Z79.01 - [facility] (current) use of anticoagulants Status: Acute Assessment and Plan: Hold apixaban possible pacemaker early next week. (4) Acute renal failure: Qualifiers: Acute renal failure type: unspecified Qualified Code(s): N17.9 - Acute kidney failure, unspecified Code(s): N17.9 - Acute kidney failure, unspecified Status: Acute Assessment and Plan: Secondary to right staghorn calculus of the kidney. Status post cystoscopy and stent placement. Creatinine is improving. (5) Septic shock: Code(s): A41.9 - Sepsis, unspecified organism; R65.21 - Severe sepsis with septic shock Status: Acute Assessment and Plan: Blood cultures growing Gram negative bacili. Management as per ICU team. Subjective Date/time seen: 08/11/24 13:06 Interval history: Reason for visit: Bradycardia HPI: Lupis Juarez is a 79-year-old female with atrial flutter, history of takotsubo cardiomyopathy, and valvular heart disease. This is a patient who is followed by [facility] in [place]. She comes to [facility] because of generalized weakness. Cardiology is consulted because of bradycardia. At the time of my evaluation, patient is having significant pain, stating that she feels that she has to urinate but is unable to and is unable to provide much of a history. She is however able to tell me that prior to admission to the hospital she had not experienced any syncope, presyncope, chest pain, or shortness of breath. She does have occasional lightheadedness and dizziness. Because of hypotension and heart rates in the 40s on arrival to the hospital, she was placed on a dopamine drip and her hemodynamics have stabilized. Date of service 08/08: Tele with heart rates in the 60s-70s. Appears to be junctional to me. Remains on Dopamine. Blood cultures are growing Gram negative bacilli. Date of service 08/09/2024: Heart rate remains stable mostly in the 60's in what appears to be a junctional rhythm. She feels ok today, complains of some abdominal discomfort but is otherwise without any complaint. Date of service 08/10/2024: Feeling a little bit better today. Does not have any complaints. She remains on dopamine in her dose has been increased from yesterday. Today her telemetry looks like atrial fibrillation with rates in the 50s, 60s Date of service 08/11/2024: Heart rate and blood pressure drop when off of dopamine. Denies any chest pain Review of Systems Constitutional: Comments: No fevers Cardiovascular: Comments: No chest pain Respiratory: Comments: No shortness breath Exam Narrative: Obese, ill-appearing female lying supine in bed Const: General: no acute distress, alert, awake and uncomfortable (Intermittently uncomfortable because of pain) Orientation/consciousness: patient oriented x3 Other: Ill appearing female in no acute distress HENMT: Head: normal to inspection Mouth: Yes dry mucous membranes Eyes: General: appearance normal, both eyes and all related structures Sclera: sclerae normal Pupils: Equal, round and reactive pupils present Neck: Neck: normal visual inspection, supple and no JVD Carotids: normal carotid upstroke Resp: Effort & Inspection: normal respiratory effort Auscultation: crackles Cardio: Rate: regular rate Rhythm: abnormal rhythm (Irregular rhythm) Heart sounds: S1 normal heart sound present, S2 normal heart sound present and no murmurs GI: Auscultation: normal bowel sounds Urinary Catheter: Urinary Catheter: patent and draining Skin: General skin exam: normal color Neuro: General: patient oriented x3 Cranial nerves: Yes Equal, round and reactive pupils present Speech: normal speech Extrem: General: no edema Psych: Appearance: grossly normal Mental Status: mental status grossly normal Affect: normal affect Objective Data Vital Signs Vital Signs: Vital Signs - 24 hr 08/10/24 14:00 08/10/24 14:00 08/10/24 14:00 Temperature 37.3 C Pulse Rate 57 L 57 L 57 L Respiratory Rate 23 H Blood Pressure 114/47 L 114/47 L Pulse Oximetry 98 Oxygen Delivery Oxygen Flow Rate 08/10/24 14:43 08/10/24 14:43 08/10/24 14:45 Temperature Pulse Rate 55 L 55 L 45 L Respiratory Rate Blood Pressure 120/74 120/74 129/73 Pulse Oximetry Oxygen Delivery Oxygen Flow Rate 08/10/24 16:00 08/10/24 16:00 08/10/24 16:00 Temperature Pulse Rate 76 75 Respiratory Rate Blood Pressure 132/88 Pulse Oximetry 100 Oxygen Delivery Nasal Cannula Oxygen Flow Rate 2 08/10/24 16:00 08/10/24 17:07 08/10/24 18:00 Temperature 37.4 C Pulse Rate 76 77 72 Respiratory Rate 18 Blood Pressure 132/88 116/71 107/66 Pulse Oximetry 99 Oxygen Delivery Oxygen Flow Rate 08/10/24 18:00 08/10/24 18:00 08/10/24 20:00 Temperature 37.4 C Pulse Rate 72 72 73 Respiratory Rate 22 H Blood Pressure 107/66 105/60 Pulse Oximetry 99 Oxygen Delivery Oxygen Flow Rate 08/10/24 20:00 08/10/24 20:00 08/10/24 20:00 Temperature 37.3 C Pulse Rate 71 71 Respiratory Rate 28 H Blood Pressure 105/60 Pulse Oximetry 99 99 Oxygen Delivery Nasal Cannula Oxygen Flow Rate 2 08/10/24 21:40 08/10/24 22:00 08/10/24 22:00 Temperature 37.2 C Pulse Rate 71 72 72 Respiratory Rate 26 H Blood Pressure 82/48 L 82/48 L Pulse Oximetry 99 Oxygen Delivery Oxygen Flow Rate 08/10/24 22:07 08/10/24 22:19 08/10/24 23:07 Temperature Pulse Rate 71 71 69 Respiratory Rate Blood Pressure 82/48 L 92/59 L 105/72 Pulse Oximetry Oxygen Delivery Oxygen Flow Rate 08/10/24 23:18 08/11/24 00:00 08/11/24 00:00 Temperature Pulse Rate 76 72 Respiratory Rate Blood Pressure 105/62 97/57 L Pulse Oximetry 98 Oxygen Delivery Nasal Cannula Oxygen Flow Rate 2 08/11/24 00:00 08/11/24 00:00 08/11/24 02:00 Temperature 37.3 C Pulse Rate 72 72 73 Respiratory Rate 21 H Blood Pressure 97/57 L Pulse Oximetry 98 Oxygen Delivery Oxygen Flow Rate 08/11/24 02:00 08/11/24 02:00 08/11/24 04:00 Temperature 37.3 C Pulse Rate 73 73 75 Respiratory Rate 23 H Blood Pressure 110/64 110/64 107/72 Pulse Oximetry 100 Oxygen Delivery Oxygen Flow Rate 08/11/24 04:00 08/11/24 04:00 08/11/24 04:00 Temperature 37.3 C Pulse Rate 74 727 H Respiratory Rate 31 H Blood Pressure 107/72 Pulse Oximetry 93 94 Oxygen Delivery Room Air Oxygen Flow Rate 08/11/24 05:03 08/11/24 05:03 08/11/24 06:00 Temperature Pulse Rate 74 74 73 Respiratory Rate Blood Pressure 87/62 L 87/62 L Pulse Oximetry Oxygen Delivery Oxygen Flow Rate 08/11/24 06:00 08/11/24 06:03 08/11/24 08:00 Temperature 37.3 C 37.2 C Pulse Rate 73 73 75 Respiratory Rate 25 H 23 H Blood Pressure 96/73 L 96/73 L 103/69 Pulse Oximetry 99 100 Oxygen Delivery Oxygen Flow Rate 08/11/24 08:00 08/11/24 08:00 08/11/24 08:00 Temperature Pulse Rate 75 73 Respiratory Rate Blood Pressure 103/69 Pulse Oximetry 100 Oxygen Delivery Nasal Cannula Oxygen Flow Rate 2 08/11/24 10:00 08/11/24 10:00 08/11/24 10:00 Temperature 37.3 C Pulse Rate 73 73 73 Respiratory Rate 16 Blood Pressure 93/54 L 93/54 L Pulse Oximetry 100 Oxygen Delivery Oxygen Flow Rate 08/11/24 12:00 08/11/24 12:00 08/11/24 12:00 Temperature Pulse Rate 75 80 Respiratory Rate Blood Pressure 101/60 Pulse Oximetry 100 Oxygen Delivery Nasal Cannula Oxygen Flow Rate 2 08/11/24 12:00 08/11/24 12:47 08/11/24 12:53 Temperature 37.3 C Pulse Rate 75 76 76 Respiratory Rate 14 Blood Pressure 101/60 90/54 L 90/54 L Pulse Oximetry 100 Oxygen Delivery Oxygen Flow Rate Intake/Output Intake/Output: Intake & Output 08/08/24 08/09/24 08/10/24 08/11/24 23:59 23:59 23:59 23:59 Intake Total 1778.8 2122.8 2178.1 1146.0 Output Total 1500 2150 1500 800 Balance 278.8 -27.2 678.1 346.0 Meds/Results Medications: Active Medications Generic Name Dose Route Start Last Admin Trade Name Freq PRN Reason Stop Dose Admin Acetaminophen 650 mg 08/06/24 21:36 Acetaminophen 325 Mg Tablet PO Q4H PRN Mild Pain (1-3) or Fever Hydrocodone Bitart/Acetaminophen 1 tab 08/07/24 15:27 08/09/24 20:47 Hydrocodone/Acetaminophen (*Crx) 5-325 Mg Tablet PO 1 tab Q6H PRN Administration Pain Rated 4-6 Apixaban 2.5 mg 08/07/24 09:00 Apixaban 2.5 Mg Tablet PO Q12HR SAL Bisacodyl 10 mg 08/08/24 09:00 08/11/24 08:59 Bisacodyl 10 Mg Suppository RECTAL 10 mg QAM SAL Administration Bupropion HCl 150 mg 08/07/24 09:00 08/11/24 08:59 Bupropion Hcl Sr (12 Hr) 150 Mg Tab PO 150 mg Q12HR SAL Administration Fluoxetine HCl 20 mg 08/07/24 09:00 08/11/24 08:59 Fluoxetine Hcl 20 Mg Capsule PO 20 mg DAILY SAL Administration Fluticasone Propionate 1 spray 08/07/24 09:00 08/11/24 09:04 Fluticasone Propionate 0.05% Na Spr 16 Gm Btl (*Bkc) NASAL 1 spray DAILY SAL Administration Dopamine HCl/Dextrose 400 mg in 250 mls @ 32.344 mls/hr 08/07/24 03:15 08/11/24 12:53 Dopamine 400 Mg/D5w 250 Ml IV CONT 7.5 mcg/kg/min .Q7H44M SAL 32.34 mls/hr Administration Protocol 7.5 MCG/KG/MIN Cefepime HCl 2 gm in 50 mls @ 100 mls/hr 08/10/24 21:00 08/11/24 09:35 Maxipime 2 Gm/Ns 50 Ml IVPB Infused Q12H SAL Infusion Loratadine 10 mg 08/07/24 09:00 08/07/24 10:10 Loratadine 10 Mg Tablet PO Not Given DAILY SAL Ondansetron HCl 4 mg 08/06/24 21:36 08/09/24 23:16 Ondansetron Inj 4 Mg/2 Ml Vial IV PUSH 4 mg Q4H PRN Administration Nausea Ondansetron HCl 4 mg 08/07/24 11:08 Ondansetron Inj 4 Mg/2 Ml Vial IV PUSH ONCE PRN Nausea Pantoprazole Sodium 40 mg 08/08/24 09:00 08/11/24 08:59 Pantoprazole Sodium Iv 40 Mg Vial IV PUSH 40 mg QAM SAL Administration Polyethylene Glycol 17 gm 08/08/24 09:00 08/11/24 08:59 Polyethylene Glycol 3350 17 Gm Powd.Pack PO 17 gm QAM SAL Administration Sodium Chloride 10 ml 08/07/24 06:00 08/11/24 05:04 Central Line Flush IV PUSH 10 ml Q8HR SAL Administration Sodium Chloride 20 ml 08/07/24 02:32 Central Line Flush IV PUSH PRN PRN after blood draws Topiramate 25 mg 08/07/24 09:00 08/11/24 08:59 Topiramate 25 Mg Tablet PO 25 mg Q12HR SAL Administration Radiology Results: ITS Impressions Abdomen Ultrasound 08/06/24 20:18 IMPRESSION: Single lamellated stone within the gallbladder with a sonographic Berry sign. Chest/Abdomen/Pelvis CT 08/06/24 20:22 IMPRESSION: Findings within the chest suggesting pulmonary hypertension. Staghorn calculus within the right kidney with global enlargement of the right kidney and surrounding inflammatory change. Lamellated stone within the gallbladder without additional abnormality. Punctate foci of air within the bladder with surrounding inflammatory change suggesting cystitis. Fibroid uterus, enlarged for a patient of this age. Nonobstructing fat-containing umbilical hernia. 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 Chest X-Ray 08/07/24 05:19 Impression: Right IJ line in place. Clear lungs. Retrograde Pyelogram 08/07/24 12:44 IMPRESSION: 1. Right internal ureteral stent in expected position. Renal Ultrasound 08/07/24 15:17 IMPRESSION: No definite abnormality seen. Labs Labs: Laboratory Results - last 24 hr 08/07/24 08/08/24 08/11/24 17:30 05:32 05:11 WBC 17.8 H RBC 3.74 L Hgb 12.2 Hct 34.6 L MCV 92.5 MCH 32.6 MCHC 35.3 RDW 15.0 H Plt Count 265 MPV 9.3 Sodium 136 L Potassium 3.6 Chloride 107 Carbon Dioxide 26 Anion Gap 3 L BUN 21 H Creatinine 0.78 Estim Creat Clear Calc 64 Estimated GFR > 60 Glucose 117 H Calcium 8.8 Magnesium 1.8 Total Bilirubin 1.9 H AST 128 H ALT 144 H Alkaline Phosphatase 160 H Total Protein 5.5 L 6.0 L Albumin 2.7 L Urine Albumin 40 U [id number] 6 U [id number] 15 U Beta Globulin 13 U Gamma Globulin 27 U Abnormal Prot Band 1 19 H Urine PEP Interpret See note
[2024-08-11] MEDS: ACETAMINOPHEN 325 MG TABLET 650 MG PO (18:40)
[2024-08-12] VITALS (25 sets, daily range): BP systolic 75–111; BP diastolic 46–79; PULSE 70–83; RESP 16–26; TEMP 37.2–37.4; O2SAT 93–100
[2024-08-12] MEDS: DOPamine 400 MG/D5W 250 ML 400 MG/250 ML BAG 32.34 MG IV CONT ×3 (04:56→20:32)
[2024-08-12] MEDS: CENTRAL LINE FLUSH 10 ML IV PUSH ×3 (05:00→21:57)
[2024-08-12 05:08] LABS: Hematocrit 35.1 % (37.0-47.0); Hemoglobin 12.3 g/dL (12.0-15.0); Mean Corpuscular Hemoglobin 32.7 pg (26-34); Mean Corpuscular Volume 93.4 fl (80-100); Mean Platelet Volume 9.2 fl (7.4-10.4); Platelet Count Result 264 k/mm3 (150-375); Red Blood Count 3.76 M/mm3 (4.2-5.4); Red Cell Distribution Width 15.4 % (11.5-14.5); White Blood Count 18.8 K/mm3 (4.5-10.0)
[2024-08-12 05:21] LABS: Alanine Aminotransferase 126 U/L (6-35); Albumin Level 2.7 g/dL (3.5-5.1); Alkaline Phosphatase 174 U/L (38-126); Anion Gap 5 mmol/L (4-12); Aspartate Amino Transferase 99 U/L (14-36); Bilirubin,Total 1.7 mg/dL (0.2-1.3); Blood Urea Nitrogen 18 mg/dL (7-17); Calcium 8.7 mg/dL (8.4-10.2); Carbon Dioxide 25 mmol/L (22-30); Chloride 106 mmol/L (98-107); Estimated CRCL calculation 68 ml/min; Estimated Glomerular Filt Rate > 60; Glucose 117 mg/dL (65-110); Magnesium 1.7 mg/dL (1.6-2.3); Potassium 4.2 mmol/L (3.4-5.0); Sodium 136 mmol/L (137-145)
--- NOTE | 2024-08-12 08:56 | WPDINTPN ---
Progress Note: A&P Assessment and Plan (1) Septic shock: Code(s): A41.9 - Sepsis, unspecified organism; R65.21 - Severe sepsis with septic shock Status: Acute Assessment and Plan: 08/06: Patient presented with generalized weakness, hypovolemia, hypotension, leukocytosis, was found to be in septic shock, likely related to UTI and hypovolemia -patient was adequately fluid resuscitated and is off of crystalloids -continue dopamine for bradycardia and hypotension, maintain MAP > 65 mmHg for adequate end organ perfusion and heart rate above 50 -08/06: Blood cultures growing Proteus mirabilis which is solis sensitive -continue cefepime (08/06), but will off of vancomycin -08/10 repeat blood cultures ordered as patient will likely need pacemaker. Results negative till now -patient is afebrile and overall improved but white count still elevated (2) UTI (urinary tract infection): Qualifiers: Hematuria presence: with hematuria Urinary tract infection type: acute cystitis Qualified Code(s): N30.01 - Acute cystitis with hematuria Code(s): N39.0 - Urinary tract infection, site not specified Status: Acute Assessment and Plan: UTI could be related to staghorn calculus in the right kidney or cystitis -antibiotics as above (3) Staghorn calculus: Code(s): N20.0 - Calculus of kidney Status: Acute Assessment and Plan: 08/06: CT chest abdomen and pelvis: Findings within the chest suggesting pulmonary hypertension.Staghorn calculus within the right kidney with global enlargement of the right kidney and surrounding inflammatory change. Lamellated stone within the gallbladder without additional abnormality. Punctate foci of air within the bladder with surrounding inflammatory change suggesting cystitis. Fibroid uterus, enlarged for a patient of this age. Nonobstructing fat-containing umbilical hernia. 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 08/07 status post Cystoscopy, right retrograde, right ureteral stent placement 6 Irish contour, Stafford catheter placement (4) Bradyarrhythmia: Code(s): I49.8 - Other specified cardiac arrhythmias Status: Acute Assessment and Plan: Patient has Moreno cardia which appears to be junctional rhythm. Bradycardia could be related to hypovolemia, but continue to take her home medications amiodarone, Coreg -she continues to be bradycardic and yesterday during physical therapy the heart rate dropped to 20s and 30s movement early. -patient currently on dopamine for bradycardia and hypotension. Continue to titrate -cardiology following and patient will likely need permanent pacemaker -continue to hold amiodarone and AV annmarie blocking agents -patient is agreeable to pacemaker placement and Cardiology were planning to place permanent pacemaker early next week (5) Acute renal failure: Qualifiers: Acute renal failure type: unspecified Qualified Code(s): N17.9 - Acute kidney failure, unspecified Code(s): N17.9 - Acute kidney failure, unspecified Status: Acute Assessment and Plan: Acute renal failure likely related to hypovolemia, decreased oral intake, says septic shock/infection Improved with IV fluids and creatinine trending down and close to normal, urine output improved -continue to monitor urine output, renal function electrolytes -nephrology was consulted from ER (6) Electrolyte imbalance: Code(s): E87.8 - Other disorders of electrolyte and fluid balance, not elsewhere classified Status: Acute Assessment and Plan: Replace potassium (7) Atrial fibrillation: Qualifiers: Atrial fibrillation type: paroxysmal Qualified Code(s): I48.0 - Paroxysmal atrial fibrillation Code(s): I48.91 - Unspecified atrial fibrillation Status: Acute Assessment and Plan: Patient has a history of atrial fibrillation on Eliquis at home. She takes amiodarone and Coreg at home -currently bradycardic and hypotensive -continue to hold home medications -hold Eliquis as patient has cystoscopy and has hematuria and will likely need permanent pacemaker (8) Cholelithiasis without cholecystitis: Code(s): K80.20 - Calculus of gallbladder without cholecystitis without obstruction Status: Acute Assessment and Plan: Ultrasound shows large single gallbladder stone. Radiologic Berry sign was positive. No other changes of cholecystitis or obstruction was seen. Patient was evaluated by general surgery and recommended conservative management at this time. No plan for surgical intervention (9) Transaminitis: Code(s): R74.01 - Elevation of levels of liver transaminase levels Status: Acute Assessment and Plan: Multifactorial. Improved Monitor. Plan DVT prophylaxis: Eliquis currently on hold due to hematuria and possible per pacemaker placement Stress ulcer prophylaxis: Protonix Nutrition: Diet ordered Code Status: Do not resuscitate Consult PT OT Up in chair Incentive spirometer Critical Care Time Spent: 30 minutes Due to a high probability of clinically significant, life threatening deterioration, the patient required my highest level of preparedness to intervene emergently and I personally spent this critical care time directly and personally managing the patient. This critical care time included obtaining a history; examining the patient; pulse oximetry; ordering and review of studies; arranging urgent treatment with development of a management plan; evaluation of patient's response to treatment; frequent reassessment; and discussions with other providers. It was exclusive of separately billable procedures and treating other patients and teaching time. Please see Assessment and Plan section and the rest of the note for further information on patient assessment and treatment This dictation may have been done utilizing a voice recognition system. Attempts have been made to correct errors. However, there may be uncorrected grammatical, spelling, and recognitions errors present. Subjective Date/time seen: 08/12/24 She states she feels overall better but has some sore throat. She states she has to sit up to eat otherwise she has difficulty swallowing. Patient denies fever, chest pain, shortness of breath, cough, nausea vomiting, abdominal pain,, diarrhea, headache or constipation. All other systems were reviewed and negative On 2 L nasal cannula Continues to require low-dose dopamine Junctional rhythm in 70s with adequate blood pressure Urine output is acceptable Review of Systems Review of Systems: All systems reviewed & are unremarkable except as noted in HPI and below Exam Narrative: General: Pleasant female in no acute distress HEENT:? Pupils equal and reactive, sclera is clear, moist oral mucosa, some Neck:? Supple Respiratory:? Clear to auscultation bilaterally, decreased breath sounds at bases, adequate air entry, no wheeze Cardiac:? Sinus bradycardia Abdomen:? Soft, obese, tender to palpation around the umbilicus, normoactive bowel sounds Extremities:? Trace edema, palpable pedal pulses Neuro:? Patient is awake, alert, oriented x 3 Skin:? Warm and dry Psych:? Flat affect Objective Data Vital Signs Vital Signs: Vital Signs - 24 hr 08/11/24 10:00 08/11/24 10:08/11/24 10:00 Temperature 37.3 C Pulse Rate 73 73 73 Respiratory Rate 16 Blood Pressure 93/54 L 93/54 L Pulse Oximetry 100 Oxygen Delivery Oxygen Flow Rate Fraction of Inspired Oxygen 08/11/24 12:00 08/11/24 12:00 08/11/24 12:00 Temperature Pulse Rate 75 80 Respiratory Rate Blood Pressure 101/60 Pulse Oximetry 100 Oxygen Delivery Nasal Cannula Oxygen Flow Rate 2 Fraction of Inspired Oxygen 08/11/24 12:00 08/11/24 12:47 08/11/24 12:53 Temperature 37.3 C Pulse Rate 75 76 76 Respiratory Rate 14 Blood Pressure 101/60 90/54 L 90/54 L Pulse Oximetry 100 Oxygen Delivery Oxygen Flow Rate Fraction of Inspired Oxygen 08/11/24 14:00 08/11/24 14:00 08/11/24 14:00 Temperature 37.5 C Pulse Rate 75 75 75 Respiratory Rate 16 Blood Pressure 89/54 L 89/54 L Pulse Oximetry 100 Oxygen Delivery Oxygen Flow Rate Fraction of Inspired Oxygen 08/11/24 16:00 08/11/24 16:00 08/11/24 16:00 Temperature 37.5 C Pulse Rate 76 76 Respiratory Rate 18 Blood Pressure 89/54 L 101/59 L Pulse Oximetry 98 100 Oxygen Delivery Nasal Cannula Oxygen Flow Rate 2 Fraction of Inspired Oxygen 08/11/24 16:00 08/11/24 18:00 08/11/24 18:00 Temperature 37.7 C H Pulse Rate 77 77 77 Respiratory Rate 15 Blood Pressure 100/55 L Pulse Oximetry 98 Oxygen Delivery Oxygen Flow Rate Fraction of Inspired Oxygen 08/11/24 18:00 08/11/24 20:00 08/11/24 20:00 Temperature Pulse Rate 77 76 76 Respiratory Rate Blood Pressure 100/55 L 98/58 L Pulse Oximetry Oxygen Delivery Oxygen Flow Rate Fraction of Inspired Oxygen 08/11/24 20:00 08/11/24 20:00 08/11/24 20:37 Temperature 37.6 C H Pulse Rate 76 77 Respiratory Rate 28 H Blood Pressure 98/58 L 99/61 L Pulse Oximetry 100 100 Oxygen Delivery Nasal Cannula Oxygen Flow Rate 2 Fraction of Inspired Oxygen 08/11/24 21:08 08/11/24 22:00 08/11/24 22:00 Temperature 37.4 C Pulse Rate 77 73 73 Respiratory Rate 23 H Blood Pressure 99/61 L 93/63 L Pulse Oximetry 98 Oxygen Delivery Oxygen Flow Rate Fraction of Inspired Oxygen 08/11/24 22:00 08/12/24 00:00 08/12/24 00:00 Temperature Pulse Rate 73 73 Respiratory Rate Blood Pressure 93/63 L 106/61 Pulse Oximetry 100 Oxygen Delivery Nasal Cannula Oxygen Flow Rate 2 Fraction of Inspired Oxygen 08/12/24 00:00 08/12/24 00:00 08/12/24 02:00 Temperature 37.3 C Pulse Rate 73 73 75 Respiratory Rate 26 H Blood Pressure 106/61 103/79 Pulse Oximetry 100 Oxygen Delivery Oxygen Flow Rate Fraction of Inspired Oxygen 08/12/24 02:00 08/12/24 02:00 08/12/24 04:00 Temperature 37.3 C Pulse Rate 75 75 83 Respiratory Rate 22 H Blood Pressure 103/79 108/59 L Pulse Oximetry 100 Oxygen Delivery Oxygen Flow Rate Fraction of Inspired Oxygen 08/12/24 04:00 08/12/24 04:00 08/12/24 04:00 Temperature 37.2 C Pulse Rate 83 83 Respiratory Rate 19 Blood Pressure 108/59 L Pulse Oximetry 100 100 Oxygen Delivery Nasal Cannula Oxygen Flow Rate 2 Fraction of Inspired Oxygen 08/12/24 04:52 08/12/24 04:56 08/12/24 06:00 Temperature Pulse Rate 76 76 71 Respiratory Rate Blood Pressure 86/73 L 86/73 L 96/46 L Pulse Oximetry Oxygen Delivery Oxygen Flow Rate Fraction of Inspired Oxygen 08/12/24 06:00 08/12/24 06:00 08/12/24 07:56 Temperature 37.3 C 37.2 C Pulse Rate 73 73 73 Respiratory Rate 20 20 Blood Pressure 96/46 L 96/57 L Pulse Oximetry 100 100 Oxygen Delivery Oxygen Flow Rate Fraction of Inspired Oxygen 08/12/24 08:48 Temperature Pulse Rate Respiratory Rate Blood Pressure Pulse Oximetry 100 Oxygen Delivery Nasal Cannula Oxygen Flow Rate 2 Fraction of Inspired Oxygen 28 Intake/Output Intake/Output: Intake & Output 08/09/24 08/10/24 08/11/24 08/12/24 23:59 23:59 23:59 23:59 Intake Total 2122.8 2178.1 1574.0 496.5 Output Total 2150 1500 1450 600 Balance -27.2 678.1 124.0 -103.5 Meds/Results Medications: Active Medications Generic Name Dose Route Start Last Admin Trade Name Freq PRN Reason Stop Dose Admin Acetaminophen 650 mg 08/06/24 21:36 08/11/24 18:40 Acetaminophen 325 Mg Tablet PO 650 mg Q4H PRN Administration Mild Pain (1-3) or Fever Hydrocodone Bitart/Acetaminophen 1 tab 08/07/24 15:27 08/09/24 20:47 Hydrocodone/Acetaminophen (*Crx) 5-325 Mg Tablet PO 1 tab Q6H PRN Administration Pain Rated 4-6 Apixaban 2.5 mg 08/07/24 09:00 Apixaban 2.5 Mg Tablet PO Q12HR SAL Bisacodyl 10 mg 08/08/24 09:00 08/11/24 08:59 Bisacodyl 10 Mg Suppository RECTAL 10 mg QAM SAL Administration Bupropion HCl 150 mg 08/07/24 09:00 08/11/24 21:08 Bupropion Hcl Sr (12 Hr) 150 Mg Tab PO 150 mg Q12HR SAL Administration Fluoxetine HCl 20 mg 08/07/24 09:00 08/11/24 08:59 Fluoxetine Hcl 20 Mg Capsule PO 20 mg DAILY SAL Administration Fluticasone Propionate 1 spray 08/07/24 09:00 08/11/24 09:04 Fluticasone Propionate 0.05% Na Spr 16 Gm Btl (*Bkc) NASAL 1 spray DAILY SAL Administration Dopamine HCl/Dextrose 400 mg in 250 mls @ 32.344 mls/hr 08/07/24 03:15 08/12/24 06:00 Dopamine 400 Mg/D5w 250 Ml IV CONT 7.5 mcg/kg/min .Q7H44M SAL 32.34 mls/hr Titration Protocol 7.5 MCG/KG/MIN Cefepime HCl 2 gm in 50 mls @ 100 mls/hr 08/10/24 21:00 08/11/24 21:09 Maxipime 2 Gm/Ns 50 Ml IVPB 100 mls/hr Q12H SAL Administration Loratadine 10 mg 08/07/24 09:00 08/07/24 10:10 Loratadine 10 Mg Tablet PO Not Given DAILY SAL Ondansetron HCl 4 mg 08/06/24 21:36 08/09/24 23:16 Ondansetron Inj 4 Mg/2 Ml Vial IV PUSH 4 mg Q4H PRN Administration Nausea Ondansetron HCl 4 mg 08/07/24 11:08 Ondansetron Inj 4 Mg/2 Ml Vial IV PUSH ONCE PRN Nausea Pantoprazole Sodium 40 mg 08/08/24 09:00 08/11/24 08:59 Pantoprazole Sodium Iv 40 Mg Vial IV PUSH 40 mg QAM SAL Administration Phenol 1 spray 08/12/24 07:50 Phenol/Sod Pheno [place] Brandt (*Bkc) MUCOUS MEM PRN PRN Sore Throat Polyethylene Glycol 17 gm 08/08/24 09:00 08/11/24 08:59 Polyethylene Glycol 3350 17 Gm Powd.Pack PO 17 gm QAM SAL Administration Sodium Chloride 10 ml 08/07/24 06:00 08/12/24 05:00 Central Line Flush IV PUSH 10 ml Q8HR SAL Administration Sodium Chloride 20 ml 08/07/24 02:32 Central Line Flush IV PUSH PRN PRN after blood draws Topiramate 25 mg 08/07/24 09:00 08/11/24 21:08 Topiramate 25 Mg Tablet PO 25 mg Q12HR SAL Administration Radiology Results: ITS Impressions Abdomen Ultrasound 08/06/24 20:18 IMPRESSION: Single lamellated stone within the gallbladder with a sonographic Berry sign. Chest/Abdomen/Pelvis CT 08/06/24 20:22 IMPRESSION: Findings within the chest suggesting pulmonary hypertension. Staghorn calculus within the right kidney with global enlargement of the right kidney and surrounding inflammatory change. Lamellated stone within the gallbladder without additional abnormality. Punctate foci of air within the bladder with surrounding inflammatory change suggesting cystitis. Fibroid uterus, enlarged for a patient of this age. Nonobstructing fat-containing umbilical hernia. 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 Chest X-Ray 08/07/24 05:19 Impression: Right IJ line in place. Clear lungs. Retrograde Pyelogram 08/07/24 12:44 IMPRESSION: 1. Right internal ureteral stent in expected position. Renal Ultrasound 08/07/24 15:17 IMPRESSION: No definite abnormality seen. Labs Labs: Laboratory Results - last 24 hr 08/12/24 05:04 WBC 18.8 H RBC 3.76 L Hgb 12.3 Hct 35.1 L MCV 93.4 MCH 32.7 MCHC 35.0 RDW 15.4 H Plt Count 264 MPV 9.2 Sodium 136 L Potassium 4.2 Chloride 106 Carbon Dioxide 25 Anion Gap 5 BUN 18 H Creatinine 0.73 Estim Creat Clear Calc 68 Estimated GFR > 60 Glucose 117 H Calcium 8.7 Magnesium 1.7 Total Bilirubin 1.7 H AST 99 H ALT 126 H Alkaline Phosphatase 174 H Total Protein 6.0 L Albumin 2.7 L Quality VTE Prophylaxis VTE prophylaxis: mechanical ordered and pharmacologic ordered
--- NOTE | 2024-08-12 10:21 | PM.PNCARD ---
Progress Note: A&P Assessment and Plan (1) Bradyarrhythmia: Code(s): I49.8 - Other specified cardiac arrhythmias Status: Acute Assessment and Plan: Initial EKG shows possible two-to-one AV block. Subsequent EKG difficult to interpret because of the tracing quality. On telemetry she appears to have intermittent 2-1 block and junctional rhythm with nonconducted PACs. In setting of septic shock, acute renal failure. Hold Amiodarone, Coreg. Allow for washout. Continue dopamine drip. At this point any decrease in dopamine resultant bradycardia and hypotension. Needs a pacemaker when able Keep electrolytes optimized (2) Elevated troponin: Code(s): R79.89 - Other specified abnormal findings of blood chemistry Status: Acute Assessment and Plan: Very mildly elevated and trended down. She denies any chest pain. Mild troponin leak does not represent ACS in this situation; probably secondary to hypotension, acute kidney injury. (3) Chronic anticoagulation: Code(s): Z79.01 - skilled nursing (current) use of anticoagulants Status: Acute Assessment and Plan: Hold apixaban possible pacemaker early next week. (4) Acute renal failure: Qualifiers: Acute renal failure type: unspecified Qualified Code(s): N17.9 - Acute kidney failure, unspecified Code(s): N17.9 - Acute kidney failure, unspecified Status: Acute Assessment and Plan: Secondary to right staghorn calculus of the kidney. Status post cystoscopy and stent placement. Creatinine is improving. (5) Septic shock: Code(s): A41.9 - Sepsis, unspecified organism; R65.21 - Severe sepsis with septic shock Status: Acute Assessment and Plan: Blood cultures growing Gram negative bacili. Management as per ICU team. Subjective Date/time seen: 08/12/24 10:21 Interval history: Reason for visit: Bradycardia HPI: Lupis Juarez is a 79-year-old female with atrial flutter, history of takotsubo cardiomyopathy, and valvular heart disease. This is a patient who is followed by [facility] in [place]. She comes to [facility] because of generalized weakness. Cardiology is consulted because of bradycardia. At the time of my evaluation, patient is having significant pain, stating that she feels that she has to urinate but is unable to and is unable to provide much of a history. She is however able to tell me that prior to admission to the hospital she had not experienced any syncope, presyncope, chest pain, or shortness of breath. She does have occasional lightheadedness and dizziness. Because of hypotension and heart rates in the 40s on arrival to the hospital, she was placed on a dopamine drip and her hemodynamics have stabilized. Date of service 08/08: Tele with heart rates in the 60s-70s. Appears to be junctional to me. Remains on Dopamine. Blood cultures are growing Gram negative bacilli. Date of service 08/09/2024: Heart rate remains stable mostly in the 60's in what appears to be a junctional rhythm. She feels ok today, complains of some abdominal discomfort but is otherwise without any complaint. Date of service 08/10/2024: Feeling a little bit better today. Does not have any complaints. She remains on dopamine in her dose has been increased from yesterday. Today her telemetry looks like atrial fibrillation with rates in the 50s, 60s Date of service 08/11/2024: Heart rate and blood pressure drop when off of dopamine. Denies any chest pain Date of service 08/12/2024: Stable on dopamine. Resting comfortably. No chest pain Review of Systems Constitutional: Comments: No fevers Cardiovascular: Comments: No chest pain Respiratory: Comments: No shortness breath Exam Narrative: Obese, ill-appearing female lying supine in bed Const: General: no acute distress, alert, awake and uncomfortable (Intermittently uncomfortable because of pain) Orientation/consciousness: patient oriented x3 Other: Ill appearing female in no acute distress HENMT: Head: normal to inspection Mouth: Yes dry mucous membranes Eyes: General: appearance normal, both eyes and all related structures Sclera: sclerae normal Pupils: Equal, round and reactive pupils present Neck: Neck: normal visual inspection, supple and no JVD Carotids: normal carotid upstroke Resp: Effort & Inspection: normal respiratory effort Auscultation: crackles Cardio: Rate: regular rate Rhythm: abnormal rhythm (Irregular rhythm) Heart sounds: S1 normal heart sound present, S2 normal heart sound present and no murmurs GI: Auscultation: normal bowel sounds Urinary Catheter: Urinary Catheter: patent and draining Skin: General skin exam: normal color Neuro: General: patient oriented x3 Cranial nerves: Yes Equal, round and reactive pupils present Speech: normal speech Extrem: General: no edema Psych: Appearance: grossly normal Mental Status: mental status grossly normal Affect: normal affect Objective Data Vital Signs Vital Signs: Vital Signs - 24 hr 08/11/24 12:00 08/11/24 12:00 08/11/24 12:00 Temperature Pulse Rate 75 80 Respiratory Rate Blood Pressure 101/60 Pulse Oximetry 100 Oxygen Delivery Nasal Cannula Oxygen Flow Rate 2 Fraction of Inspired Oxygen 08/11/24 12:00 08/11/24 12:47 08/11/24 12:53 Temperature 37.3 C Pulse Rate 75 76 76 Respiratory Rate 14 Blood Pressure 101/60 90/54 L 90/54 L Pulse Oximetry 100 Oxygen Delivery Oxygen Flow Rate Fraction of Inspired Oxygen 08/11/24 14:00 08/11/24 14:00 08/11/24 14:00 Temperature 37.5 C Pulse Rate 75 75 75 Respiratory Rate 16 Blood Pressure 89/54 L 89/54 L Pulse Oximetry 100 Oxygen Delivery Oxygen Flow Rate Fraction of Inspired Oxygen 08/11/24 16:00 08/11/24 16:00 08/11/24 16:00 Temperature 37.5 C Pulse Rate 76 76 Respiratory Rate 18 Blood Pressure 89/54 L 101/59 L Pulse Oximetry 98 100 Oxygen Delivery Nasal Cannula Oxygen Flow Rate 2 Fraction of Inspired Oxygen 08/11/24 16:00 08/11/24 18:00 08/11/24 18:00 Temperature 37.7 C H Pulse Rate 77 77 77 Respiratory Rate 15 Blood Pressure 100/55 L Pulse Oximetry 98 Oxygen Delivery Oxygen Flow Rate Fraction of Inspired Oxygen 08/11/24 18:00 08/11/24 20:00 08/11/24 20:00 Temperature Pulse Rate 77 76 76 Respiratory Rate Blood Pressure 100/55 L 98/58 L Pulse Oximetry Oxygen Delivery Oxygen Flow Rate Fraction of Inspired Oxygen 08/11/24 20:00 08/11/24 20:00 08/11/24 20:37 Temperature 37.6 C H Pulse Rate 76 77 Respiratory Rate 28 H Blood Pressure 98/58 L 99/61 L Pulse Oximetry 100 100 Oxygen Delivery Nasal Cannula Oxygen Flow Rate 2 Fraction of Inspired Oxygen 08/11/24 21:08 08/11/24 22:00 08/11/24 22:00 Temperature 37.4 C Pulse Rate 77 73 73 Respiratory Rate 23 H Blood Pressure 99/61 L 93/63 L Pulse Oximetry 98 Oxygen Delivery Oxygen Flow Rate Fraction of Inspired Oxygen 08/11/24 22:00 08/12/24 00:00 08/12/24 00:00 Temperature Pulse Rate 73 73 Respiratory Rate Blood Pressure 93/63 L 106/61 Pulse Oximetry 100 Oxygen Delivery Nasal Cannula Oxygen Flow Rate 2 Fraction of Inspired Oxygen 08/12/24 00:00 08/12/24 00:00 08/12/24 02:00 Temperature 37.3 C Pulse Rate 73 73 75 Respiratory Rate 26 H Blood Pressure 106/61 103/79 Pulse Oximetry 100 Oxygen Delivery Oxygen Flow Rate Fraction of Inspired Oxygen 08/12/24 02:00 08/12/24 02:00 08/12/24 04:00 Temperature 37.3 C Pulse Rate 75 75 83 Respiratory Rate 22 H Blood Pressure 103/79 108/59 L Pulse Oximetry 100 Oxygen Delivery Oxygen Flow Rate Fraction of Inspired Oxygen 08/12/24 04:00 08/12/24 04:00 08/12/24 04:00 Temperature 37.2 C Pulse Rate 83 83 Respiratory Rate 19 Blood Pressure 108/59 L Pulse Oximetry 100 100 Oxygen Delivery Nasal Cannula Oxygen Flow Rate 2 Fraction of Inspired Oxygen 08/12/24 04:52 08/12/24 04:56 08/12/24 06:00 Temperature Pulse Rate 76 76 71 Respiratory Rate Blood Pressure 86/73 L 86/73 L 96/46 L Pulse Oximetry Oxygen Delivery Oxygen Flow Rate Fraction of Inspired Oxygen 08/12/24 06:00 08/12/24 06:00 08/12/24 07:56 Temperature 37.3 C 37.2 C Pulse Rate 73 73 73 Respiratory Rate 20 20 Blood Pressure 96/46 L 96/57 L Pulse Oximetry 100 100 Oxygen Delivery Oxygen Flow Rate Fraction of Inspired Oxygen 08/12/24 08:48 08/12/24 09:39 Temperature Pulse Rate 75 Respiratory Rate 16 Blood Pressure 100/54 L Pulse Oximetry 100 100 Oxygen Delivery Nasal Cannula Oxygen Flow Rate 2 Fraction of Inspired Oxygen 28 Intake/Output Intake/Output: Intake & Output 08/09/24 08/10/24 08/11/24 08/12/24 23:59 23:59 23:59 23:59 Intake Total 2122.8 2178.1 1574.0 736.5 Output Total 2150 1500 1450 600 Balance -27.2 678.1 124.0 136.5 Meds/Results Medications: Active Medications Generic Name Dose Route Start Last Admin Trade Name Freq PRN Reason Stop Dose Admin Acetaminophen 650 mg 08/06/24 21:36 08/11/24 18:40 Acetaminophen 325 Mg Tablet PO 650 mg Q4H PRN Administration Mild Pain (1-3) or Fever Hydrocodone Bitart/Acetaminophen 1 tab 08/07/24 15:27 08/09/24 20:47 Hydrocodone/Acetaminophen (*Crx) 5-325 Mg Tablet PO 1 tab Q6H PRN Administration Pain Rated 4-6 Apixaban 2.5 mg 08/07/24 09:00 Apixaban 2.5 Mg Tablet PO Q12HR SAL Bisacodyl 10 mg 08/08/24 09:00 08/11/24 08:59 Bisacodyl 10 Mg Suppository RECTAL 10 mg QAM SAL Administration Bupropion HCl 150 mg 08/07/24 09:00 08/11/24 21:08 Bupropion Hcl Sr (12 Hr) 150 Mg Tab PO 150 mg Q12HR SAL Administration Fluoxetine HCl 20 mg 08/07/24 09:00 08/11/24 08:59 Fluoxetine Hcl 20 Mg Capsule PO 20 mg DAILY SAL Administration Fluticasone Propionate 1 spray 08/07/24 09:00 08/11/24 09:04 Fluticasone Propionate 0.05% Na Spr 16 Gm Btl (*Bkc) NASAL 1 spray DAILY SAL Administration Dopamine HCl/Dextrose 400 mg in 250 mls @ 32.344 mls/hr 08/07/24 03:15 08/12/24 06:00 Dopamine 400 Mg/D5w 250 Ml IV CONT 7.5 mcg/kg/min .Q7H44M SAL 32.34 mls/hr Titration Protocol 7.5 MCG/KG/MIN Cefepime HCl 2 gm in 50 mls @ 100 mls/hr 08/10/24 21:00 08/11/24 21:09 Maxipime 2 Gm/Ns 50 Ml IVPB 100 mls/hr Q12H SAL Administration Loratadine 10 mg 08/07/24 09:00 08/07/24 10:10 Loratadine 10 Mg Tablet PO Not Given DAILY SAL Ondansetron HCl 4 mg 08/06/24 21:36 08/09/24 23:16 Ondansetron Inj 4 Mg/2 Ml Vial IV PUSH 4 mg Q4H PRN Administration Nausea Ondansetron HCl 4 mg 08/07/24 11:08 Ondansetron Inj 4 Mg/2 Ml Vial IV PUSH ONCE PRN Nausea Pantoprazole Sodium 40 mg 08/08/24 09:00 08/11/24 08:59 Pantoprazole Sodium Iv 40 Mg Vial IV PUSH 40 mg QAM SAL Administration Phenol 1 spray 08/12/24 07:50 Phenol/Sod Pheno Placedo Brandt (*Bkc) MUCOUS MEM PRN PRN Sore Throat Polyethylene Glycol 17 gm 08/08/24 09:00 08/11/24 08:59 Polyethylene Glycol 3350 17 Gm Powd.Pack PO 17 gm QAM SAL Administration Sodium Chloride 10 ml 08/07/24 06:00 08/12/24 05:00 Central Line Flush IV PUSH 10 ml Q8HR SAL Administration Sodium Chloride 20 ml 08/07/24 02:32 Central Line Flush IV PUSH PRN PRN after blood draws Topiramate 25 mg 08/07/24 09:00 08/11/24 21:08 Topiramate 25 Mg Tablet PO 25 mg Q12HR SAL Administration Radiology Results: ITS Impressions Abdomen Ultrasound 08/06/24 20:18 IMPRESSION: Single lamellated stone within the gallbladder with a sonographic Berry sign. Chest/Abdomen/Pelvis CT 08/06/24 20:22 IMPRESSION: Findings within the chest suggesting pulmonary hypertension. Staghorn calculus within the right kidney with global enlargement of the right kidney and surrounding inflammatory change. Lamellated stone within the gallbladder without additional abnormality. Punctate foci of air within the bladder with surrounding inflammatory change suggesting cystitis. Fibroid uterus, enlarged for a patient of this age. Nonobstructing fat-containing umbilical hernia. 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 Chest X-Ray 08/07/24 05:19 Impression: Right IJ line in place. Clear lungs. Retrograde Pyelogram 08/07/24 12:44 IMPRESSION: 1. Right internal ureteral stent in expected position. Renal Ultrasound 08/07/24 15:17 IMPRESSION: No definite abnormality seen. Labs Labs: Laboratory Results - last 24 hr 08/12/24 05:04 WBC 18.8 H RBC 3.76 L Hgb 12.3 Hct 35.1 L MCV 93.4 MCH 32.7 MCHC 35.0 RDW 15.4 H Plt Count 264 MPV 9.2 Sodium 136 L Potassium 4.2 Chloride 106 Carbon Dioxide 25 Anion Gap 5 BUN 18 H Creatinine 0.73 Estim Creat Clear Calc 68 Estimated GFR > 60 Glucose 117 H Calcium 8.7 Magnesium 1.7 Total Bilirubin 1.7 H AST 99 H ALT 126 H Alkaline Phosphatase 174 H Total Protein 6.0 L Albumin 2.7 L
[2024-08-12] MEDS: PANTOPRAZOLE SODIUM IV 40 MG VIAL IV PUSH (11:08)
[2024-08-12] MEDS: polyethylene glycoL 3350 17 GM POWD.PACK PO (11:08)
[2024-08-12] MEDS: TOPIRAMATE 25 MG TABLET PO ×2 (11:08→20:34)
[2024-08-12] MEDS: buPROPion HCL SR (12 HR) 150 MG TAB PO ×2 (11:09→20:34)
[2024-08-12] MEDS: CEFEPIME 2 GM/NS 50 ML 2 GM/50 ML BAG IVPB ×2 (11:09→20:34)
[2024-08-12] MEDS: BISACODYL 10 MG SUPPOSITORY RECTAL (11:09)
[2024-08-12] MEDS: FLUoxetine HCL 20 MG CAPSULE PO (11:09)
[2024-08-12] MEDS: FLUTICASONE PROPIONATE 0.05% NA SPR 16 GM BTL (*BKC) 1 SPRAY NASAL (11:11)
[2024-08-12] MEDS: ACETAMINOPHEN 325 MG TABLET 650 MG PO (14:28)
[2024-08-13] VITALS (20 sets, daily range): BP systolic 66–112; BP diastolic 46–69; PULSE 64–75; RESP 13–25; TEMP 36.5–37.2; O2SAT 96–100
[2024-08-13] MEDS: DOPamine 400 MG/D5W 250 ML 400 MG/250 ML BAG 32.34 MG IV CONT ×3 (04:20→20:23)
--- OUTSIDE RECORDS SUMMARY | 2024-08-13 05:20 | XMS_ITS | Encounter Summary ---
Author Organization [facility] Healthcare Address [address] [place] [address] Care Team Providers Care Meat Dresser Name Role Phone Tristan Rivers MD Primary Care Provider [phone] Ana Lima RN Unavailable [phone] Reason for Visit * Reason Onset Date Comments Pt needs GAYLE OV and medicaiton refills Encounter Details Date Type Department Care Team (Late st Contact Info) Description 04/03/2024 Telephone Family Physicians [facility] [address] [place] [address] Tristan Rivers MD [address] [place] [id number] Pt needs GAYLE OV and medicaiton refills Social History Tobacco Use Types Packs/Day Years Used Date Smoking Tobacco: Never Smokeless Tobacco: Never Comments:Mother and Father b oth heavy smokers Alcohol Use Standard Drinks/Week Comments Not Currently 0 (1 standard drink = 0.6 oz pur e alcohol) no recently [facility] Utilities Answer Date Recorded In the past 12 months has [employer], gas, oil, or water company threatened to shut off services in your home? No 04/03/2024 Social Connection and Isolation Panel [NHANES] A nswer Date Recorded In a typical week, how many times do you talk on the phone with family, friends, or neighbors? Twice a week 04/03/2024 How often do you get togethe r with friends or relatives? Twice a week 04/03/2024 How often do you attend mormon or confucianist serv ices? Patient declined 04/03/2024 Do you belong to any clubs o r organizations such as mormon groups, unions, fraternal or athletic groups, or school groups? Patient declined 04/03/2024 How often do you attend meet ings of the clubs or organizations you belong to? Patient declined 04/03/2024 Are you , , di vorced, , never , or living with a partner? 04/03/2024 AUDIT-C Answer Date Recorded Q1: How often do you have a drink containing alcohol? Never 07/17/2023 Q2: How many drinks containi ng alcohol do you have on a typical day when you are drinking? Patient does not drink Q3: How often do you have si x or more drinks on one occasion? Never 07/17/2023 Overall Financial Resource Strain (CARDIA) Answe r Date Recorded How hard is it for you to pa y for the very basics like food, housing, medical care, and heating? Not very hard 04/03/2024 PHQ-2 Answer Date Recorded PHQ-2 Total Score (If total score is 3 or more points, staff should administer the PHQ-9) 0 02/01/2024 Hunger Vital Sign Answer Date Recorded Within the past 12 months, y ou worried that your food would run out before you got the money to buy more. Never true 04/03/20 24 Within the past 12 months, t he food you bought just didn't last and you didn't have money to get more. Never true 04/03/2024 PRAPARE - Transportation Answer Date Re corded In the past 12 months, has l ack of transportation kept you from medical appointments or from getting medications? No 09/2023 In the past 12 months, has l ack of transportation kept you from meetings, work, or from getting things needed for daily living? No 04/03/2024 Housing Stability Vital Sign Answer Eric e Recorded In the last 12 months, was t here a time when you were not able to pay the mortgage or rent on time? No 04/03/2024 In the past 12 months, how m any times have you moved where you were living? 0 04/03/2024 At any time in the past 12 m [facility], were you homeless or living in a snf (including now)? No 04/03/2024 Personal Safety Answer Date Recorded Have you ever been in or are you currently in a harmful physical or emotional relationship or is someone making you feel afraid or unsafe? Denies 09/14/2023 Comments Unknown Sex and Gender Information Value Date Recorded Sex Assigned at Not on file Legal Sex Female 11:52 PM PLANT CHANGER Gender Identity Female 09/15/2022 2:42 PM PLANT CHANGER Sexual Orientation Straight 09/15/2022 2: 42 PM PLANT CHANGER documented as of this encounter Ordered Prescriptions Prescription Sig Dispense Quantity Refills Last Filled Start Date End Date carvediloL (COREG) 3.125 mg tablet Take 1 tablet (3.125 mg total) by mouth 2 (two) times a day with meals 180 tablet 3 04/03/2024 04/03/2025 spironolactone (ALDACTONE) 25 mg tablet Take 1 tablet (25 mg total) by mouth daily 90 tablet 3 04/03/2024 04/03/2025 sacubitriL-valsart an (ENTRESTO) 24-26 mg tabletIndications: chronic heart failure Take 1 tablet by mouth 2 (two) times a day 180 tablet 3 04/03/2024 04/03/2025 apixaban (ELIQUIS) 2.5 mg tabletIndications: VTE Prophylaxis,atrial fibrillation Take 1 tablet (2.5 mg total) by mouth every 12 (twelve) hours 180 tablet 3 04/03/2024 04/03/2025 documented in this encounter Miscellaneous Notes * Telephone Encounter - Maria Elena Garcia MA - 04/03/2024 2:36 PM CDT SOP aware * Addendum Note - Tristan Rivers MD - 04/03/2024 2:32 PM CDTAddended by: TRISTAN RIVERS on: 04/03/2024 02:32 PM Modules accepted: Orders * Addendum Note - Maria Elena Garcia MA - 04/03/2024 1:44 PM CDTAddended by: MARIA ELENA GARCIA on: 04/03/2024 01:44 PM Modules accepted: Orders * Telephone Encounter - Maria Elena Garcia MA - 04/03/2024 1:43 PM CDT Meds pended, last filled under different provider. * Telephone Encounter - Marge Campbell - 04/03/2024 12:50 PM CDT Pt requests refills of Eliquis, Entresto, coreg and spironolactone Kristal Zhao * Telephone Encounter - Marge Campbell - 04/03/2024 12:48 PM CDT When were you admitted? 07/29/23 When were you discharged? 03/29/24 What hospital (or residential facility) were you in? [facility] What was the reason for your hospital stay? Nstemi If you were prescribed any new medications in the hospital, do you have any questions or concerns about them? no Do you have enough medication to get you to your follow-up appointment? Pt is out of Eliquis, Entresto, coreg and spironolactone Since being released from the hospital do you feel better, the same, or worse? better Date of Transition of Care Appointment: 04/10/24 (offered sooner appts but they did not work for patient) Do you have transportation to the appointment? yes * Telephone Encounter - Ana Lima RN - 04/03/2024 11:56 AM CDT FYI Pt needs GAYLE OV This ACO pt was admitted to [facility] from 07/29/23-03/29/2024 for NSTEMI. Pt's did call me back. GAYLE call completed. Pt is requesting GAYLE OV at [facility], if you can accommodate please contact pt/ to schedule. Also, Pt is out of Eliquis, Entresto, coreg and spironolactone. Can you refill prior to GAYLE OV? I spoke with [facility] but they are in need of notes to be able to accept pt for PT. Thank you, Ana Hartman RN, BSN, [facility] ACO Care Management * Telephone Encounter - Selina Frausto MA - 04/03/2024 11:42 AM CDT Can you get pt scheduled for a GAYLE, Thanks * Telephone Encounter - Ana Lima RN - 04/03/2024 11:07 AM CDT FYI Pt needs GAYLE OV This ACO pt was admitted to [facility] from 07/29/23-03/29/2024 for NSTEMI. I have been unable to contact pt for GAYLE call or schedule GAYLE OV. Please attempt to contact pt. Ana Hartman RN, BSN, [facility] ACO Care Management documented in this encounter Plan of Treatment Not on file documented as of this encounter Visit Diagnoses Not on filedocumented in this encounter Discontinued Medications Medication Sig Discontinue Reason Start Date End Da te apixaban (ELIQUIS) 2.5 mg tabletIndications:VTE Prophylaxis,atrial fibrillation Take 1 tablet (2.5 mg total) by mouth every 12 (twelve) hours Reorder 07/29/2023 04/03/2024 carvediloL (COREG) 3.125 mg tablet Take 1 tablet (3.125 mg total) by mouth 2 (two) times a day with meals Reorder 07/29/2023 04/03/2024 sacubitriL-valsartan (ENTRESTO) 24-26 mg tabletIndications:chronic heart failure Take 1 tablet by mouth 2 (two) times a day Reorder 07/29/2023 04/03/2024 spironolactone (ALDACTONE) 25 mg tablet Take 1 tablet (25 mg total) by mouth daily Reorder 07/30/2023 04/03/2024 documented as of this encounter Care Teams Meat Dresser Relationship Specialty Start Date End Date Tristan Rivers MD [address] [place] [address] PCP - General Family Medicine 03/15/22 Ana Lima RN [address] [place] [address] DR RENEE [address] [place] [id number] Roll Form Operator 03/30/24 04/17/24 documented as of this encounter
--- OUTSIDE RECORDS SUMMARY | 2024-08-13 05:20 | XMS_ITS | Encounter Summary ---
Author Organization [facility] Healthcare Address [address] [place] [address] Care Team Providers Care Carding Supervisor Name Role Phone Tristan Watson MD Primary Care Provider [phone] Ana Lima RN Unavailable [phone] Encounter Details Date Type Department Care Team (Late st Contact Info) Description 03/30/2024 Orders Only [facility] Care Organization [address] [place] [id number] Provider, MD Maryuri [address] [place] [id number] Social History Tobacco Use Types Packs/Day Years Used Date Smoking Tobacco: Never Smokeless Tobacco: Never Comments:Mother and Father b oth heavy smokers Alcohol Use Standard Drinks/Week Comments Not Currently 0 (1 standard drink = 0.6 oz pur e alcohol) no recently [facility] Utilities Answer Date Recorded In the past 12 months has [employer], gas, oil, or water [employer] threatened to shut off services in your home? No 04/03/2024 Social Connection and Isolation Panel [NHANES] A nswer Date Recorded In a typical week, how many times do you talk on the phone with family, friends, or neighbors? Twice a week 04/03/2024 How often do you get togethe r with friends or relatives? Twice a week 04/03/2024 How often do you attend bahai or oriental orthodox serv ices? Patient declined 04/03/2024 Do you belong to any clubs o r organizations such as bahai groups, unions, fraternal or athletic groups, or [...] any time in the past [address] [facility], were you homeless or living in a penitentiary (including now)? No 04/03/2024 Personal Safety Answer Date Recorded Have you ever been in or are you currently in a harmful physical or emotional relationship or is someone making you feel afraid or unsafe? Denies 09/14/2023 Comments Unknown Sex and Gender Information Value Date Recorded Sex Assigned at Not on file Legal Sex Female 11:52 PM CORPORATE MANAGER Gender Identity Female 09/15/2022 2:42 PM CORPORATE MANAGER Sexual Orientation Straight 09/15/2022 2: 42 PM CORPORATE MANAGER documented as of this encounter Plan of Treatment Not on file documented as of this encounter Procedures Procedure Name Priority Date/Time Associated Diagnosis Comments SNF DISCHARGE SUMMARY Routine 03/29/2024 10:34 AM CDT documented in this encounter Results * SNF discharge summary (03/29/2024 10:34 AM CDT) us Historical Provider [facility] COMMUNICATION ORDERAB LES Final Result documented in this encounter Visit Diagnoses Not on filedocumented in this encounter Care Teams Carding Supervisor Relationship Specialty Start Date End Date Tristan Watson MD [address] [place] [address] PCP - General Family Medicine 03/15/22 Ana Lima, BREA [address] [place] [address] DR RENEE [address] [place] [id number] Warehouse Clerk 03/30/24 04/17/24 documented as of this encounter
--- OUTSIDE RECORDS SUMMARY | 2024-08-13 05:20 | XMS_ITS | Clinical Summary ---
Author Organization [facility] Address [address] [place] [address] Care Team Providers Care Instrument Panel Assembler Name Role Phone Tristan Rivers MD Primary Care Provider [phone] Allergies Active Allergy Reactions Criticality Noted Date Comments Quinapril Other (See comments) Reaction: swollen mouth, Medications albuterol HFA (ProAir HFA) 90 mcg/actuation inhaler Inhale 2 puffs every 4 (four) hours as needed for shortness of breath As needed for wheezing 3 each 3 03/28/20 23 Active atorvastatin (LIPITOR) 10 mg tablet TAKE 1/2 TABLET BY MOUTH EVERY DAY 45 tablet 3 03/28/20 23 Active fluticasone propion-salmete roL (Advair Diskus) 250-50 mcg/dose diskus inhaler Inhale 1 puff 2 (two) times a day Rinse mouth with water after use to reduce aftertaste and incidence of candidiasis. Do not swallow. 3 each 3 03/28/20 23 Active miconazole 2 % powder Apply topically 2 (two) times a day 70 g 07/29/20 23 Active Additional Information Patient not taking.Reported on 04/10/2024 furosemide (LASIX) 40 mg tablet Take 1 tablet (40 mg total) by mouth daily 30 tablet 1 07/30/20 Active acetaminophen (TYLENOL) 325 mg tablet Take 2 tablets (650 mg total) by mouth every 6 (six) hours as needed for pain Active apixaban (ELIQUIS) 2.5 mg tabletIndicatio ns:VTE Prophylaxis,atr ial fibrillation Take 1 tablet (2.5 mg total) by mouth every 12 (twelve) hours 180 tablet 3 04/03/20 24 025 Active sacubitriL-vals claudy (ENTRESTO) 24-26 mg tabletIndicatio ns:chronic heart failure Take 1 tablet by mouth 2 (two) times a day 180 tablet 3 04/03/20 24 025 Active spironolactone (ALDACTONE) 25 mg tablet Take 1 tablet (25 mg total) by mouth daily 90 tablet 3 04/03/20 24 025 Active carvediloL (COREG) 3.125 mg tablet Take 1 tablet (3.125 mg total) by mouth 2 (two) times a day with meals 180 tablet 3 04/03/20 24 025 Active FLUoxetine (PROzac) 40 mg capsule Take 1 capsule (40 mg total) by mouth daily 02/28/20 Active amiodarone (PACERONE) 200 mg tablet Take 1 tablet (200 mg total) by mouth daily 90 tablet 3 04/13/20 24 025 Active FLUoxetine (PROzac) 20 mg capsule Take 3 capsules (60 mg total) by mouth daily 270 capsule 3 04/13/20 24 025 Active topiramate (TOPAMAX) 25 mg tabletIndicatio ns:Essential Tremor Take 1 tablet (25 mg total) by mouth 2 (two) times a day 180 tablet 4 05/02/20 24 025 Active buPROPion SR (ZYBAN) 150 mg 12 hr tablet Take 1 tablet (150 mg total) by mouth 2 (two) times a day 180 tablet 3 05/18/20 24 Active loratadine (CLARITIN) 10 mg tablet Take 1 tablet (10 mg total) by mouth daily as needed for allergies 90 tablet 3 05/18/20 24 025 Active Fan-Phos 250 Neutral 250 mg tablet TAKE 1 TABLET BY MOUTH FOUR TIMES DAILY 360 tablet 07/27/20 24 Active Phospha 250 Neutral 250 mg tablet Take 1 tablet (250 mg total) by mouth 4 (four) times a day 360 tablet 04/10/20 24 024 Discontinued Active Problems Problem Noted Date Diagnosed Date Physical deconditioning 04/10/2024 Assessment & Plan (04/10/2024 2:18 PM CDT): Stable, not well controlled; patient is at baseline prior to recent hospitalization Patient is able to get out of bed; ambulate short distances to bathroom or to chair Home physical therapy established Valvular heart disease 08/23/2023 Overview (07/03/2024): 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 on SOPHIE 20 July 2023. Trivial MR/TR on echo 03 October 2023. LVEF of 50-55%. Mild protein-calorie malnutrition (CMS/HCC) 07/02 Mitral regurgitation 07/21/2023 Permanent atrial fibrillation (CMS/HCC) 07/21/20 Overview (07/03/2024): Cardioverted from atrial fibrillation to atrial flutter on 20 July 2023 under SOPHIE guidance. Cardioversion to junctional rhythm on 14 September 2023. On amiodarone 200 mg daily and Eliquis 2.5 p.o. b.i.d.. Assessment & Plan (04/10/2024 2:17 PM CDT): Stable, well controlled, appropriate rate; irregular rhythm today Follows with cardiology Continue amiodarone 200 mg daily, Eliquis 2.5 mg b.i.d. Assessment & Plan (04/10/2024 2:10 PM CDT): >>ASSESSMENT AND PLAN FOR TYPICAL ATRIAL FLUTTER (CMS/HCC) (HCC) WRITTEN ON 09/07/2023 3:37 PM BY JOSEFINA GUAN MD Patient denies any palpitations, dizziness or syncope. Exam in the office revealed a regular and somewhat fast rhythm. EKG showed still showed atrial flutter at 104 beats per minute No bleeding issues with Eliquis low-dose. We discussed getting another cardioversion and patient is agreeable. Assessment & Plan (04/10/2024 2:10 PM CDT): >>ASSESSMENT AND PLAN FOR TYPICAL ATRIAL FLUTTER (CMS/HCC) (HCC) WRITTEN ON 09/22/2023 2:07 PM BY JOSEFINA GUAN MD Feeling okay since cardioversion. EKG shows junctional rhythm. No change in medical regimen here. Assessment & Plan (04/10/2024 2:10 PM CDT): >>ASSESSMENT AND PLAN FOR TYPICAL ATRIAL FLUTTER (CMS/HCC) ([facility]) WRITTEN ON 01/19/2024 2:29 PM BY JOSEFINA GUAN MD Patient denies any palpitations, dizziness or syncope. Exam in the office revealed a regular rhythm. Patient needs to continue on amiodarone Eliquis as he has no significant bleeding issues. Again, no change in medical regimen here. Assessment & Plan (12/14/2023 1:44 PM CDT): Stable, status post cardioversion Continue carvedilol 3.125 mg b.i.d., amiodarone 100 mg daily, Eliquis 2.5 mg b.i.d. Vomiting and diarrhea 07/17/2023 Benign essential tremor 03/28/2023 Assessment & Plan (12/14/2023 1:45 PM CDT): Not well controlled, worsening; was not able to tolerate prior medications due to dyspnea Will start topiramate 25 mg b.i.d. Assessment & Plan (03/28/2023 4:55 PM CDT): Not well controlled worsening; patient reports symptoms worsen her ability to type, writing letters; currently able to eat okay Start propranolol 60 mg daily; follow-up to determine response to therapy Acquired hypothyroidism 05/28/2021 Assessment & Plan (10/05/2023 1:14 PM DREDGING INSPECTOR): elsStable, no major changes; will continue to monitor, especially now that patient is taking amiodarone Assessment & Plan (03/28/2023 4:55 PM CDT): Stable well controlled, TSH at goal; continue to monitor closely Assessment & Plan (09/20/2022 2:07 PM DREDGING INSPECTOR): Stable, generally well controlled, TSH at target Continue to monitor at regular intervals, every 6-12 Assessment & Plan (05/28/2021 1:22 PM CDT): tsh at 5.1 nd all bu nl and just watch as of now will not be aware of issue from low thyroid B12 deficiency 05/20/2020 Assessment & Plan (11/26/2021 1:38 PM CDT): Touch high and suggest cutting to 4 days a week Assessment & Plan (05/28/2021 1:23 PM CDT): b12 deropped to 1239 now on o250 5 days a week and will check as see if drops lower Assessment & Plan (11/20/2020 4:07 PM CDT): b12 1960 and to high skip for next two months and resstart January wthio 250 or 1/2 of a 500 mond thru frid Assessment & Plan (05/20/2020 2:28 PM CDT): b12 up to 1400 and Drop down to 500 mond thru frid and skip sat and sund At high risk for falls per S chmid fall risk assessment scale 05/20/2020 Assessment & Plan (05/28/2021 1:23 PM CDT): Lives in wheel chair and bed Assessment & Plan (05/20/2020 2:33 PM CDT): Cared for by In wheelchair Takotsubo cardiomyopathy 05/20/2020 Overview (07/03/2024): Moderate LV systolic dysfunction noted on echo 18 July 2023. Apical akinesis noted. Moderate to severe LV systolic dysfunction on SOPHIE 20 July 2023. Borderline LV systolic function on echo. 03 October 2023. LVEF of 50-55%. Normal coronaries by catheterization 18 July 2023 (SB). On Lasix 40, Coreg 3.125 b.i.d., Entresto 24/26 b.i.d. and Aldactone 25. Assessment & Plan (04/10/2024 2:17 PM CDT): Stable, well controlled, LVEF has returned to normal Continue carvedilol 3.125 mg b.i.d., furosemide 40 mg daily, Entresto 1 tablet b.i.d., spironolactone 25 mg daily Assessment & Plan (04/10/2024 2:11 PM CDT): >>ASSESSMENT AND PLAN FOR HYPERTENSIVE HEART DISEASE WITH CONGESTIVE HEART FAILURE (HCC) WRITTEN ON 05/20/2020 2:31 PM BY BREANNA ESPANA MD Fluid status controlled with meds and stay ion current meds except drop the Clonidine to nightly only Assessment & Plan (04/10/2024 2:11 PM CDT): >>ASSESSMENT AND PLAN FOR HYPERTENSIVE HEART DISEASE WITH CONGESTIVE HEART FAILURE (HCC) WRITTEN ON 11/20/2020 4:06 PM BY BREANNA ESPANA MD bp stable and acceptable and chf not active Cont meds and check bnp on return Hypertension, Medical treament revolves around weight control, salt management, and meds when necessary. long as weight loss is necessary and you are able to drop weight we can cont to monitor the blood pressure and not add meds. Once the weight is not changing then it becomes nesessary to add meds to be able to reach the goal bp. Assessment & Plan (04/10/2024 2:11 PM CDT): >>ASSESSMENT AND PLAN FOR HYPERTENSIVE HEART DISEASE WITH CONGESTIVE HEART FAILURE (HCC) WRITTEN ON 05/28/2021 1:26 PM BY BREANNA ESPANA MD Thew bp good and heart stable and bnp dropped to 260 from 1600 2 yrs ago 2 Lasix working well no changs Hypertension, Medical treament revolves around weight control, salt management, and meds when necessary. long as weight loss is necessary and you are able to drop weight we can cont to monitor the blood pressure and not add meds. Once the weight is not changing then it becomes nesessary to add meds to be able to reach the goal bp. Assessment & Plan (04/10/2024 2:11 PM CDT): >>ASSESSMENT AND PLAN FOR HYPERTENSIVE HEART DISEASE WITH CONGESTIVE HEART FAILURE (HCC) WRITTEN ON 11/26/2021 1:36 PM BY BREANNA ESPANA MD stble fluid status and keep meds same. bp good but massive arm. No changes in meds Assessment & Plan (04/10/2024 2:11 PM CDT): >>ASSESSMENT AND PLAN FOR HYPERTENSIVE HEART DISEASE WITH CONGESTIVE HEART FAILURE (HCC) WRITTEN ON 03/16/2022 4:17 PM BY TRISTAN RIVERS MD Stable, well controlled; blood pressure at target today; patient reports the chest pain or pressure, no headaches Patient has chronic stasis dermatitis Continue clonidine 0.1 mg b.i.d., irbesartan 300 mg daily, furosemide 20 mg b.i.d. Assessment & Plan (04/10/2024 2:11 PM CDT): >>ASSESSMENT AND PLAN FOR HYPERTENSIVE HEART DISEASE WITH CONGESTIVE HEART FAILURE (HCC) WRITTEN ON 09/20/2022 2:06 PM BY TRISTAN RIVERS MD Stable, patient has chronic peripheral edema; no evidence of pulmonary edema or excess fluid retention Continue to manage blood pressure and cholesterol levels Assessment & Plan (04/10/2024 2:11 PM CDT): >>ASSESSMENT AND PLAN FOR HYPERTENSIVE HEART DISEASE WITH CONGESTIVE HEART FAILURE (HCC) WRITTEN ON 03/28/2023 4:55 PM BY TRISTAN RIVERS MD Stable, has significant peripheral edema; unclear if venous stasis verses cardiac in nature Assessment & Plan (04/10/2024 2:11 PM CDT): >>ASSESSMENT AND PLAN FOR HYPERTENSIVE HEART DISEASE WITH CONGESTIVE HEART FAILURE (HCC) WRITTEN ON 02/01/2024 4:51 PM BY TRISTAN RIVERS MD Stable, well controlled, heart failure is resolving; last echo demonstrated significant improvement in ejection fraction and cardiac function Assessment & Plan (04/10/2024 2:10 PM CDT): >>ASSESSMENT AND PLAN FOR TAKOTSUBO CARDIOMYOPATHY WRITTEN ON 09/07/2023 2:56 PM BY JOSEFINA GUAN MD We discussed cardiac issues from almost 2 months ago. She has some shortness of breath with activities but she is only able to walk 6 steps at a time with physical therapy. Still has a wearable defibrillator in place. We discussed getting an echocardiogram in mid September to see if she can get off the wearable defibrillator. Unfortunately, her blood pressure of 92/65 is too low for me to add anymore medications. Assessment & Plan (04/10/2024 2:10 PM CDT): >>ASSESSMENT AND PLAN FOR TAKOTSUBO CARDIOMYOPATHY WRITTEN ON 09/22/2023 1:50 PM BY JOSEFINA GUAN MD raised the issue of whether she needs a wearable defibrillator being that she is ? do not resuscitate? . I confirmed that she is ? do not resuscitate? , so we can stop the wearable defibrillator now. Cannot add anymore heart failure medications because of blood pressure is borderline at 103/61 today. Let us get another echocardiogram to see if everything has gotten back to normal. Assessment & Plan (04/10/2024 2:10 PM CDT): >>ASSESSMENT AND PLAN FOR TAKOTSUBO CARDIOMYOPATHY WRITTEN ON 01/19/2024 2:28 PM BY JOSEFINA GUAN MD Patient denies any shortness of breath or leg edema. We discussed last echo from 3 months ago showing borderline LV function. Since blood pressure is a bit on the low side, I will not increase the Coreg or Entresto at this time. No change in medical regimen here. Assessment & Plan (12/14/2023 1:43 PM CDT): Stable, improving; normal LVEF, mild hypertrophy; significantly improved from prior imaging for months prior Will continue to monitor; continue current medications, continue spironolactone 25 mg daily, Entresto 1 tablet b.i.d., carvedilol 3.125 mg b.i.d. Assessment & Plan (10/05/2023 1:14 PM DREDGING INSPECTOR): Stable, improving; using 3.5 L of supplemental oxygen for symptom relief Continue Entresto 24-26 mg b.i.d., spironolactone 25 mg daily, carvedilol 3.125 mg b.i.d., Lasix 40 mg daily Pure hypercholesterolemia 01/16/2020 Assessment & Plan (04/10/2024 2:17 PM CDT): Stable, well controlled; no major side effects from medication Continue atorvastatin 10 mg daily Assessment & Plan (09/20/2022 2:05 PM DREDGING INSPECTOR): Stable, well controlled; lipids at target for heart disease; no myalgias from medication Continue atorvastatin 10 mg daily Assessment & Plan (03/16/2022 4:17 PM CDT): Stable, well controlled; lipids all at target Continue atorvastatin 10 mg daily Assessment & Plan (11/26/2021 1:28 PM CDT): ldl at 68 and on 1/2 pil and stay onYour cholesterol in the form of ldl (bad) cholesterol,hdl(good) cholesterol and triglycerides are monitored. The triglycerides respond to reduction/controll of your simple carbs/sugars In such items as sugared soda/sweet tea along with fruit juices(containing natural sugar) even if no added sugar is added. LDL cholesterol is reduced with reducing daily intake of fats and [place]. saturated fats. The monosaturated fats like olive oil are not harmful except in the calories they contained. Whole milk cheese needs to be remembered along with whole milk products And limited. Assessment & Plan (05/28/2021 1:26 PM CDT): ldl down to 65 nd keep stagble Your cholesterol in the form of ldl (bad) cholesterol,hdl(good) cholesterol and triglycerides are monitored. The triglycerides respond to reduction/controll of your simple carbs/sugars In such items as sugared soda/sweet tea along with fruit juices(containing natural sugar) even if no added sugar is added. LDL cholesterol is reduced with reducing daily intake of fats and [place]. saturated fats. The monosaturated fats like olive oil are not harmful except in the calories they contained. Whole milk cheese needs to be remembered along with whole milk products And limited. Assessment & Plan (11/20/2020 4:08 PM CDT): ldl at 76 and working as is no chagds in meds or dietYour cholesterol in the form of ldl (bad) cholesterol,hdl(good) cholesterol and triglycerides are monitored. The triglycerides respond to reduction/controll of your simple carbs/sugars In such items as sugared soda/sweet tea along with fruit juices(containing natural sugar) even if no added sugar is added. LDL cholesterol is reduced with reducing daily intake of fats and [place]. saturated fats. The monosaturated fats like olive oil are not harmful except in the calories they contained. Whole milk cheese needs to be remembered along with whole milk products And limited. Assessment & Plan (05/20/2020 2:22 PM CDT): ldl at 104 and start atorvsaitn 10 and take a pill and crush And divide over trhe weekYour cholesterol in the form of ldl (bad) cholesterol,hdl(good) cholesterol and triglycerides are monitored. The triglycerides respond to reduction/controll of your simple carbs/sugars In such items as sugared soda/sweet tea along with fruit juices(containing natural sugar) even if no added sugar is added. LDL cholesterol is reduced with reducing daily intake of fats and [place]. saturated fats. The monosaturated fats like olive oil are not harmful except in the calories they contained. Whole milk cheese needs to be remembered along with whole milk products And limited. Assessment & Plan (01/16/2020 2:16 PM CDT): ldl ay 98 and withawcvd risk high risk audie start low dose statin at 1/4 pill over a week and check lab results and if tolerated try to go up to get to close to 60. Diet not option Class 3 severe obesity due t o excess calories with serious comorbidity and body mass index (BMI) of 40.0 to 44.9 in adult 12/07/2018 Overview (12/07/2018): The patient was counseled on the importance of maintaining a healthy weight and the risks of obesity. Weight loss recommended. Assessment & Plan (04/10/2024 2:16 PM CDT): Stable, well controlled; improving; patient has been having weight loss; working on eating smaller portions Encouraged continued work on dietary changes to reduce weight Assessment & Plan (02/01/2024 4:50 PM CDT): Stable, improving; patient has lost weight since last visit Encouraged continued dietary choices limit caloric input; engagement physical therapy Assessment & Plan (12/14/2023 1:43 PM CDT): Weight is stable from prior; patient is unable to exercise due to health risk Encouraged continued dietary changes to limit caloric intake Exercises tolerate, including chair exercises Assessment & Plan (10/05/2023 1:13 PM DREDGING INSPECTOR): Stable, no significant changes to wait; patient has engage with physical therapy in [facility]; limited physical activity; encouraged dietary changes, limiting caloric intake through portion sizes and low-calorie foods Assessment & Plan (03/28/2023 4:55 PM CDT): Continues to have elevated BMI; patient is not able to exercise due to limitations of chronic pain; encouraged continue to work on low-calorie diet through limiting caloric intake through portion control as well as limiting high-calorie foods Assessment & Plan (09/20/2022 2:07 PM DREDGING INSPECTOR): Weight is stable from prior, no significant changes; patient unable to perform most activities as she is wheelchair-bound and has high risk of falls; would encourage patient to work on generalized chair exercises in order to maintain muscle mass Continue with portion control diet Assessment & Plan (03/16/2022 4:18 PM CDT): Stable, no significant weight loss; much of weight may be attributed to lymphedema and venous stasis Patient has been working on portion control; patient is not able to exercise due to limited mobility Will continue to monitor to help patient with weight loss strategies Assessment & Plan (11/26/2021 1:36 PM CDT): Not weight caable but morbidsMorbid obesity is a bmi of 40 or more. Targeted weight loss with portion controll(calorie restriction) ,increased basal activity Levels along with adding an exercise program to lead to gradual weight loss,.Any program of change from weight watchers. To nutra system along with others work. Assessment & Plan (05/28/2021 1:26 PM CDT): Morbid obesity is a bmi of 40 or more. Targeted weight loss with portion controll(calorie restriction) ,increased basal activity Levels along with adding an exercise program to lead to gradual weight loss,.Any program of change from weight watchers. To nutra system along with others work. Assessment & Plan (11/20/2020 4:08 PM CDT): Morbid obesity is a bmi of 40 or more. Targeted weight loss with portion controll(calorie restriction) ,increased basal activity Levels along with adding an exercise program to lead to gradual weight loss,.Any program of change from weight watchers. To nutra system along with others work. Assessment & Plan (05/20/2020 2:17 PM CDT): Morbid obesity is a bmi of 40 or more. Targeted weight loss with portion controll(calorie restriction) ,increased basal activity Levels along with adding an exercise program to lead to gradual weight loss,.Any program of change from weight watchers. To nutra system along with others work. Assessment & Plan (01/16/2020 2:14 PM CDT): Morbid obesity is a bmi of 40 or more. Targeted weight loss with portion controll(calorie restriction) ,increased basal activity Levels along with adding an exercise program to lead to gradual weight loss,.Any program of change from weight watchers. To nutra system along with others work. Assessment & Plan (09/10/2019 12:59 PM DREDGING INSPECTOR): She was counseled on the importance of maintaining a healthy weight and the risks of obesity. Weight loss recommended. Assessment & Plan (07/09/2019 2:27 PM DREDGING INSPECTOR): Morbid obesity is a bmi of 40 or more. Targeted weight loss with portion controll(calorie restriction) ,increased basal activity Levels along with adding an exercise program to lead to gradual weight loss,.Any program of change from weight watchers. To nutra system along with others work. Assessment & Plan (03/06/2019 2:30 PM CDT): Morbid obesity is a bmi of 40 or more. Targeted weight loss with portion controll(calorie restriction) ,increased basal activity Levels along with adding an exercise program to lead to gradual weight loss,.Any program of change from weight watchers. To nutra system along with others work. Recurrent major depressive disorder, in partial remission 10/24/2018 Assessment & Plan (04/10/2024 2:16 PM CDT): Stable, well controlled; patient reports no depressive symptoms Continue bupropion 150 mg b.i.d., fluoxetine 60 mg daily Assessment & Plan (02/01/2024 4:50 PM CDT): Anxiety is improving, engaged with physical therapy Continue Prozac Assessment & Plan (12/14/2023 1:44 PM CDT): Stable, improving; patient reports acute depression secondary to significant health risk; now improving, focuses on thinking through concerns Continue bupropion 150 mg b.i.d., fluoxetine 40 mg daily Assessment & Plan (10/05/2023 1:13 PM DREDGING INSPECTOR): Stable, improving; patient reports initially was depressed, now doing better that she is engaged with therapy Continue bupropion 150 mg b.i.d., fluoxetine 40 mg daily Assessment & Plan (03/28/2023 4:54 PM CDT): Stable, well controlled; patient generally in good mood Continue Zyban 150 mg b.i.d., fluoxetine 40 mg daily Assessment & Plan (09/20/2022 2:08 PM DREDGING INSPECTOR): Stable, generally well controlled, patient reports tries to keep mood and attitude up Continue bupropion 150 mg b.i.d., fluoxetine 40 mg daily Assessment & Plan (11/26/2021 1:29 PM CDT): Still lsmiles stgable ulnderlying depression stay with meds Assessment & Plan (05/28/2021 1:27 PM CDT): reassonable controll and keep mes stable Assessment & Plan (11/20/2020 4:09 PM CDT): Stable and wants to stay here of meds Assessment & Plan (05/20/2020 2:24 PM CDT): [facility] Assessment & Plan (01/16/2020 2:17 PM CDT): depresion stable and no chages Assessment & Plan (03/06/2019 2:26 PM CDT): Better but not there cont prozac 40 and then add well butrin 150 Daily and after 2wks then trial twice a day Assessment & Plan (10/24/2018 2:20 PM CDT): Go to 40 mg to tret depresison Mild persistent asthma without complication 03/01 Assessment & Plan (02/01/2024 4:50 PM CDT): Breathing has been good for patient; some cough due to allergy season Uses oxygen or sips of water to help relieve cough symptoms Continue Advair Diskus 1 puff b.i.d. Assessment & Plan (12/14/2023 1:45 PM CDT): Stable, generally well controlled, uses home oxygen for relief when Assessment & Plan (03/28/2023 4:54 PM CDT): Stable, well controlled; no significant dyspnea Continue Advair 1 puff b.i.d. Assessment & Plan (09/20/2022 2:08 PM DREDGING INSPECTOR): Stable, generally well controlled, symptoms worsened during spring season Currently has sense of chest congestion, though pulmonary exam clear Continue Wixela and Flonase b.i.d. for management of asthma Continue Claritin 10 mg daily Assessment & Plan (03/16/2022 4:19 PM CDT): Stable, well controlled; patient reports limited use of albuterol Continue Advair 1 puff b.i.d. Assessment & Plan (11/26/2021 1:39 PM CDT): Stable state and uses medsAsthma is the excess production of secretions and reactivity/twitchiness of the breathing / bronchial tubes. This can be chronic ,acute on chronic or episodic(acute).Inhaled materials in the form of pollutants( gaseous or particles) pollens ,exercise or infections that are usually viral. Some people never have issues unless they get a cold /flu. Some are mainly induced by exercise.If you have a regular need (read nearly daily use or need) of a rescue inhaler like albuterol you should be started on or use your controller inhaler/medicines..There is a place for episodic steroid use for those who have had or are having a fairly severe spell.There is a need for regular use of controller meds(usually steroid containing inhalers) for those who are proven to have a chronically obstructed breathing pattern. If you feel you are getting worse then an urgent visit to the er is in order or at least a return to the clinic for a re-evaluation of your meds/treament. Assessment & Plan (05/28/2021 1:31 PM CDT): Uses bid advair and stay on and rare b reakthru for albuterol Assessment & Plan (05/20/2020 2:25 PM CDT): Well contorll with meds Assessment & Plan (03/14/2018 10:17 AM CDT): Asthma is the excess production of secretions and reactivity/twitchiness of the breathing / bronchial tubes. This can be chronic ,acute on chronic or episodic(acute).Inhaled materials in the form of pollutants( gaseous or particles) pollens ,exercise or infections that are usually viral. Some people never have issues unless they get a cold /flu. Some are mainly induced by exercise.If you have a regular need (read nearly daily use or need) of a rescue inhaler like albuterol you should be started on or use your controller inhaler/medicines..There is a place for episodic steroid use for those who have had or are having a fairly severe spell.There is a need for regular use of controller meds(usually steroid containing inhalers) for those who are proven to have a chronically obstructed breathing pattern. If you feel you are getting worse then an urgent visit to the er is in order or at least a return to the clinic for a re-evaluation of your meds/treament.Using advair regularly bid. Cont meds. Fall flu shtos Chronic stasis dermatitis 03/15/2017 Assessment & Plan (04/10/2024 2:16 PM CDT): Stable, continues to have significant peripheral edema in bilateral lower extremities; has some thickening and darkening skin; however no evidence of infection Continue furosemide 40 mg daily Assessment & Plan (02/01/2024 4:49 PM CDT): Stable, improving; lymphedema is improving under control No significant peripheral rash or erythema Will continue monitor closely Assessment & Plan (12/14/2023 1:42 PM CDT): Stable, no evidence of infection; will continue to work to reduce peripheral edema in order to reduce inflammation Continue furosemide 40 mg daily Assessment & Plan (03/28/2023 4:53 PM CDT): Stable, no evidence of infection; continues to have thickening and flaking of skin in bilateral lower extremities; encouraged continued use of aggressive hydration to reduce risk of skin damage Continue furosemide 20 mg b.i.d. Assessment & Plan (05/28/2021 1:25 PM CDT): chronc and stable Assessment & Plan (05/20/2020 2:15 PM CDT): Chronic stasis with topical rx and helpihng and cont as doing Assessment & Plan (01/16/2020 2:17 PM CDT): With swelling gone infectnio risk pretty well gone Assessment & Plan (03/14/2018 10:16 AM CDT): Back to [facility]. eval for help Assessment & Plan (12/05/2017 3:24 PM CDT): Referral to vein md /chronic edema. Assessment & Plan (03/15/2017 11:12 AM CDT): incompitent veins allow for flid to back up and limit flow and drivesthe swelling. The chronic dependency is what drive this IGT (impaired glucose tolerance) 03/15/2017 Assessment & Plan (03/28/2023 4:53 PM CDT): Stable, well controlled last A1c at goal Continue to encourage low-carbohydrate diet Assessment & Plan (05/28/2021 5:16 PM CDT): Check on return to confirm stable Chronic pain syndrome 03/15/2017 Assessment & Plan (04/10/2024 2:17 PM CDT): Stable, well controlled; patient reports no significant pain at this time; continues to use hydrocodone p.r.n. for severe pain Assessment & Plan (02/01/2024 4:50 PM CDT): Patient continues with physical therapy, has physical therapy 4 days per week Takes 2 days to recover from physical therapy, has pain requiring use of Tylenol for pain relief Continue Tylenol p.r.n. for pain Assessment & Plan (03/28/2023 4:54 PM CDT): Stable, generally controlled though significant pain limits patient's ability to ambulate; using wheelchair for mobility Continue hydrocodone 5 mg q.6 hours p.r.n.; patient reports improvement in quality of life as well as ability to perform some activities of daily living Assessment & Plan (03/16/2022 4:19 PM CDT): Stable, pain is primary in left lower extremity; posterior thighs; patient has continued to taper from hydrocodone usage Assessment & Plan (11/26/2021 1:38 PM CDT): Stable 120 norco voer 8 months stable Assessment & Plan (05/28/2021 1:24 PM CDT): Dos well with 1/2 pill bid Assessment & Plan (11/20/2020 4:06 PM CDT): Gets by with 1/2 norco bid and works to stay here Assessment & Plan (05/20/2020 2:17 PM CDT): chjronic pain from knees an dhusband contorlling drugs Assessment & Plan (01/16/2020 2:23 PM CDT): Stop pain pill as bothered stomoch and stomach pain gone occasional aleve and sugested trial occasional tylenol or extended tylenol Neuroleptics discussed but if occaisnoal pills does well then will not considdeer another optno Assessment & Plan (07/09/2019 2:33 PM DREDGING INSPECTOR): Pain meds reduced taking 1-2 a day and this will hope to cont. Assessment & Plan (03/06/2019 2:31 PM CDT): Renewed med for stable pain Assessment & Plan (10/24/2018 2:20 PM CDT): Stable pain meds and signed pain contracafdt Assessment & Plan (06/28/2018 1:53 PM DREDGING INSPECTOR): ON 3 NORCO A day and stable. Assessment & Plan (03/14/2018 10:09 AM CDT): Hydrocodone muting pain and uses 4 a contreras al the time.aware of drug linmits. Tolerance. Assessment & Plan (12/05/2017 3:25 PM CDT): On hydrocodone and needs to li it to a script a month. Assessment & Plan (03/15/2017 11:11 AM CDT): Tolerance to the pain meds from using 4 times a day PE (physical exam), annual 03/15/2017 Assessment & Plan (05/28/2021 1:32 PM CDT): Well exzm High fall risk depreoisn screen + and score 8 cognitive screen normal. Colon not repeated given the massive issue and de licnes on there part. Flu shot today and had covid shots. No other md's seeing Assessment & Plan (05/20/2020 2:34 PM CDT): High fall risk deprieosn screen nl cog screen nl flyu and p sh ot today Had tdap uop to date. Shingles shot condier. anne not able give size and infirmity and passed on Testing unless issue forced. Saurabh suggeseted and not willing. Assessment & Plan (03/15/2017 11:16 AM CDT): Screening labs with a1c at 5.1 nl. The ldl at 95 ideal. The colon 2013 up to date andnt a candidate to repeat. Saurabh should repeat regulaly and work to get done Vitamin D deficiency 03/15/2017 Assessment & Plan (11/26/2021 1:29 PM CDT): D perfect at 48 and ke same Assessment & Plan (05/28/2021 1:30 PM CDT): Keep d stable and recheck Assessment & Plan (11/20/2020 4:07 PM CDT): Vit d 59 great and cont as doing Assessment & Plan (05/20/2020 2:24 PM CDT): Low nl at 35 and stay and recheck Assessment & Plan (01/16/2020 2:19 PM CDT): gakes and check on return Assessment & Plan (03/14/2018 10:21 AM CDT): Off d . Reports upset [place]. Will check onreturn and see if still low off meds Assessment & Plan (03/15/2017 11:22 AM CDT): Cont to take and will check on return Benign hypertension 08/17/2016 Overview (11/05/2016): BENIGN HYPERTENSION Assessment & Plan (04/10/2024 2:16 PM CDT): Stable, well controlled, blood pressure at goal; patient blood pressure on low side of normal; reports occasional episodes of dizziness; would work with Cardiology to evaluate adjustment dose as needed Continue spironolactone 25 mg daily, Entresto 24-26 mg b.i.d., carvedilol 3.125 mg b.i.d. Assessment & Plan (02/01/2024 4:49 PM CDT): Stable, well controlled, blood pressure at goal Mild dizziness, will continue to monitor Continue carvedilol 3.125 mg b.i.d., Entresto 24-261 tablet b.i.d., spironolactone 25 mg daily Assessment & Plan (12/14/2023 1:42 PM CDT): Stable, well controlled, blood pressure goal Continue carvedilol 3.125 mg b.i.d., Entresto 1 tablet b.i.d., spironolactone 25 mg daily Assessment & Plan (10/05/2023 1:13 PM DREDGING INSPECTOR): Stable, well controlled; blood pressure at goal; no chest pain or pressure Continue carvedilol 3.125 mg b.i.d., Entresto 24-26 b.i.d., spironolactone 25 mg daily Assessment & Plan (03/28/2023 4:52 PM CDT): Stable, well controlled; blood pressure at goal Continue clonidine 0.1 mg b.i.d., furosemide 20 mg b.i.d., irbesartan 300 mg daily Assessment & Plan (09/20/2022 2:05 PM DREDGING INSPECTOR): Stable, well controlled; blood pressure at target, no chest pain the patient does report some pressure-like sensation on chest Continue irbesartan 300 mg daily, furosemide 20 mg b.i.d. Assessment & Plan (05/28/2021 1:24 PM CDT): The bp good and no changds I meds Hypertension, Medical treament revolves around weight control, salt management, and meds when necessary. long as weight loss is necessary and you are able to drop weight we can cont to monitor the blood pressure and not add meds. Once the weight is not changing then it becomes nesessary to add meds to be able to reach the goal bp. Assessment & Plan (05/20/2020 2:16 PM CDT): The bp And heart rate low enough to drop to once a dday clonidineHypertension, Medical treament revolves around weight control, salt management, and meds when necessary. long as weight loss is necessary and you are able to drop weight we can cont to monitor the blood pressure and not add meds. Once the weight is not changing then it becomes nesessary to add meds to be able to reach the goal bp. Assessment & Plan (01/16/2020 2:13 PM CDT): bp good and no changesHypertension, Medical treament revolves around weight control, salt management, and meds when necessary. long as weight loss is necessary and you are able to drop weight we can cont to monitor the blood pressure and not add meds. Once the weight is not changing then it becomes nesessary to add meds to be able to reach the goal bp. Assessment & Plan (09/10/2019 12:59 PM DREDGING INSPECTOR): Recommend DASH diet, heart-healthy lifestyle, exercise. Discussed the risks of hypertension. Assessment & Plan (07/09/2019 2:25 PM DREDGING INSPECTOR): The bp good and no changes On meds as isHypertension, Medical treament revolves around weight control, salt management, and meds when necessary. long as weight loss is necessary and you are able to drop weight we can cont to monitor the blood pressure and not add meds. Once the weight is not changing then it becomes nesessary to add meds to be able to reach the goal bp. Assessment & Plan (03/06/2019 2:25 PM CDT): bp better and no changs in meds and monitorHypertension, Medical treament revolves around weight control, salt management, and meds when necessary. long as weight loss is necessary and you are able to drop weight we can cont to monitor the blood pressure and not add meds. Once the weight is not changing then it becomes nesessary to add meds to be able to reach the goal bp. Assessment & Plan (10/24/2018 2:19 PM CDT): Not controlledqa nd change the hctz 25 to chlorthalidone 25 Assessment & Plan (06/28/2018 1:53 PM DREDGING INSPECTOR): BP CONT A TOUCH HIGH AND ADD YULIA PRES TO START AT NIGHT AD THEN BID. RECHECK IN JANHypertension, Medical treament revolves around weight control, salt management, and meds when necessary. long as weight loss is necessary and you are able to drop weight we can cont to monitor the blood pressure and not add meds. Once the weight is not changing then it becomes nesessary to add meds to be able to reach the goal bp. Assessment & Plan (03/14/2018 10:10 AM CDT): The bp stil up and add aldactone 25 daily. Check bp and bmp in 4-6 wks and see if bp drops enough as well as ptassiumlevels. If need and potassium allows can go to 50 mg or next step can be catapres?Hypertension, Medical treament revolves around weight control, salt management, and meds when necessary. long as weight loss is necessary and you are able to drop weight we can cont to monitor the blood pressure and not add meds. Once the weight is not changing then it becomes nesessary to add meds to be able to reach the goal bp. Assessment & Plan (12/05/2017 3:31 PM CDT): .bp well controled to high nl on top and not takingthe hctz . But intermittently does.so maybe not restart as eessentiall not taking ex cept with pain. Assessment & Plan (03/15/2017 11:13 AM CDT): The bp good and no changesHypertension, Medical treament revolves around weight control, salt management, and meds when necessary. long as weight loss is necessary and you are able to drop weight we can cont to monitor the blood pressure and not add meds. Once the weight is not changing then it becomes nesessary to add meds to be able to reach the goal bp. Iron deficiency anemia due to chronic blood loss Assessment & Plan (05/28/2021 1:30 PM CDT): Check iron and cbc on return Assessment & Plan (11/20/2020 4:09 PM CDT): Blood cnts nl and no ochagds in meds Assessment & Plan (05/20/2020 2:14 PM CDT): Nl blood cnts andnl iron stop the iro pills. Assessment & Plan (01/16/2020 2:19 PM CDT): Check obn return Assessment & Plan (07/09/2019 2:36 PM DREDGING INSPECTOR): Iron def and on iron an dcont and check cnts and iron Resolved Problems Problem Noted Date Diagnosed Date Resolved Date NSTEMI (non-ST elevated myoc ardial infarction) (CMS/HCC) 07/16/2023 04/10/2024 Colon cancer screening 06/28/201805/20 Assessment & Plan (06/28/2018 1:58 PM DREDGING INSPECTOR): Order a cologuard Simple chronic bronchitis 2018 Assessment & Plan (01/16/2020 2:11 PM CDT): Uses advair bid all time and last night for first imt uses rescue inhaler Assessment & Plan (06/28/2018 1:54 PM DREDGING INSPECTOR): Cough well and hydrocodone tid helps Bilateral impacted cerumen 03/14/2018 1 08/28/2017 Assessment & Plan (03/14/2018 10:42 AM CDT): r ear flushed and substantial wx removed. Seems to hear bdetter. l ear with wax but as big deal to fo r will not do l Until an issue. Hormone replacement therapy 12/05/2017 03/14/2018 Assessment & Plan (12/05/2017 3:28 PM CDT): Has noted major hotflashes with out hormones and has apptn to see housing manager . Will see them and take over for hormonies Moderate episode of recurren t major depressive disorder 12/05/2017 10/24/2018 Assessment & Plan (06/28/2018 1:54 PM DREDGING INSPECTOR): teresa segundo and feels does well Assessment & Plan (03/14/2018 10:16 AM CDT): meds working and cont for now Assessment & Plan (12/05/2017 3:36 PM CDT): strrt prozac 20 qwith 1/2 rthe first week then 1 a day. Reassess 1month Abnormal glucose tolerance test (GTT) 08/17/2016 03/15/2017 Overview (11/04/2016): IMPAIRED ORAL GLUCSE LUCILA Asthma 12/15/2013 05/20/2020 Overview (11/04/2016): ASTHMA NOS Assessment & Plan (03/15/2017 11:15 AM CDT): Mild and occasional breakthru wihtout added needs to treat Cellulitis of left lower extremity 01/16/2020 Assessment & Plan (07/09/2019 2:26 PM DREDGING INSPECTOR): Posterior lower legs with chronic changes more and over all the legs redness gone and no ac tive infectoin. Encounters Date Type Department Care Team Description 08/10/2024 Orders Only [facility] [address] [place] [address] Christian Springer MD from Last 3 Months Immunizations Name Administration Dates Next Due Influenza, Quadrivalent, Hig h Dose, Preservative Free, Intrr 07/29/2023,05/28/2021,05/20/2020 Influenza, Quadrivalent, Spl it, Preservative Free, Intramuscular 05/25/2013 Influenza, Split 05/11/2010 Influenza, Trivalent, High D ose, Split, Preservative Free, Intramuscular 04/19/2019,2018,05/14/2016,05/12,05/27/2014 Influenza, Trivalent, IM (MDV) 7,05/10/2012,05/12/2009,05/24 Influenza, Unspecified 09/10/2019(Deferred: Cora ent Refused) Pneumococcal Conjugate PCV 13 03/04/2015 Pneumococcal Polysaccharide PPV23 05/20/2020 Tdap 12/31/2013 Surgical History Surgery Date Site/Laterality Comments RHINOPLASTY RHINOPLASTY CATARACT EXTRACTION 2001 Medical History Medical History Date Comments 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 Hx Other Medical 02-ORTHOPEDIST Hx Other Medical IGT Moderate episode of recurren t major depressive disorder (HCC) 12/05/2017 Asthma COPD (chronic obstructive pulmonary disease) (HC C) History of transfusion Hypertension Anxiety Cataract 1999 NSTEMI (non-ST elevated myoc ardial infarction) ([facility]/HCC) (HCC) 07/16/2023 Family History Medical History Relation Name Comments Hypertension Brother Cesario Hypertension; Learning disabilities Brother Cesario Alzheimer's disease Father Iain Dementia Father Iain Dementia; Hypertension Father Iain Hypertension; Stroke Father Iain Dementia Mother Michelle Dementia; Depression Mother Michelle Depression; Hypertension Mother Michelle Hypertension; Kidney disease Mother Michelle Relation Name Status Comments Brother Cesario Father Iain Mother Michelle Social History Tobacco Use Types Packs/Day Years Used Date Smoking Tobacco: Never Smokeless Tobacco: Never Tobacco Cessation:Counseling Given: Not Answered Comments:Mother and Father both heavy smokers Alcohol Use Standard Drinks/Week Comments Not Currently 0 (1 standard drink = 0.6 oz pur e alcohol) no recently [employer] Answer Date Recorded In the past 12 months has th e [employer], gas, oil, or water [employer] threatened to shut off services in your home? No 04/03/2024 Social Connection and Isolation Panel [NHANES] A nswer Date Recorded In a typical week, how many times do you talk on the phone with family, friends, or neighbors? Twice a week 04/03/2024 How often do you get togethe r with friends or relatives? Twice a week 04/03/2024 How often do you attend anabaptist or scientologist serv ices? Patient declined 04/03/2024 Do you belong to any clubs o r organizations such as anabaptist groups, unions, fraternal or athletic groups, or [...] any time in the past 12 m [facility], were you homeless or living in a correction (including now)? No 04/03/2024 Personal Safety Answer Date Recorded Have you ever been in or are you currently in a harmful physical or emotional relationship or is someone making you feel afraid or unsafe? Denies 09/14/2023 Comments Unknown Sex and Gender Information Value Date Recorded Sex Assigned at Not on file Legal Sex Female 11:52 PM DREDGING INSPECTOR Gender Identity Female 09/15/2022 2:42 PM DREDGING INSPECTOR Sexual Orientation Straight 09/15/2022 2: 42 PM DREDGING INSPECTOR Obstetrics History Last Filed Vital Signs Vital Sign Reading Time Taken Comments Blood Pressure 100/60 04/10/2024 8:58 AM CDT Pulse 66 04/10/2024 8:58 AM CDT Temperature 36.4 ??C (97.6 ??F) 04/10/2024 8:58 AM CD T Respiratory Rate 18 04/10/2024 8:58 AM CDT Oxygen Saturation 97% 04/10/2024 8:58 AM CDT Inhaled Oxygen Concentration - - Weight 104.3 kg (230 lb) 04/10/2024 8:58 AM CDT pt reported Height 157.5 cm (5' 2 ) 04/10/2024 8:58 AM CDT Body Mass Index 42.07 04/10/2024 8:58 AM CDT Plan of Treatment Health Maintenance Due Date Last Done Comments Hepatitis C Screening 1945 Hepatitis B Screening 1965 Zoster Vaccine (1 of 2) 1997 Osteoporosis Screening-Bone Density Scan 01/23/2014 01/24/2012 DTaP/Tdap/Td Vaccine (2 - Td or Tdap) 01/01/2024 12/31/2013 Covid-19 Vaccine (3 - 2023-2 5 season) 2024 04/30/2021, 04/10/2021 Influenza Vaccine (#1) 2024 , 05/28/2021, 05/20/2020, Additional history exists Well Visit 65+ 11/29/2024 11/30/2023, 09/02, 05/28/2021, Additional history exists Depression Screening 01/31/2025 02/01/2024, 11/30/2023, 09/21/2023, Additional history exists Fall Risk Assessment 01/31/2025 02/01/2024, 11/30/2023, 09/21/2023, Additional history exists Breast Cancer Screening-Mammogram Discontinued 012 Colon Cancer Screening-CT Colonography Discontinued 03/28/2013 Colon Cancer Screening-Colonoscopy Discontinued 03/28/2013 Colon Cancer Screening-DNA Stool Discontinued 03/28/20 13 Colon Cancer Screening-FIT Discontinued 03/28/2013 Colon Cancer Screening-FOBT Discontinued 03/28/2013 Colon Cancer Screening-Sigmoidoscopy Discontinued 03/28/2013 Colorectal Cancer Screening Discontinued Pneumococcal vaccine 65+ Completed 05/20/2020, 0810/2014 Procedures Procedure Name Priority Date/Time Associated Diagnosis Comments CARDIOLOGY DOCUMENT SCAN Routine 08/08/2024 10:34 AM DREDGING INSPECTOR HM COLONOSCOPY Routine 03/28/2013 DEXA SCAN Routine 01/24/2012 MAMMOGRAPHY Routine 01/24/2012 from Last 3 Months or Most Recently Relevant to Health Maintenance Results * Cardiology Document Scan (08/08/2024 10:34 AM DREDGING INSPECTOR) Anatomical Region Laterality Modality Other [facility] Beatriz Springer MD CV CARDIAC SERVICES PRO CEDURES Final Result * COLONOSCOPY (03/28/2013) Pathologist [facility] Colonoscopy Abnormal Historical Provider HEALTH MAINTENANCE Final Result * DEXA SCAN (01/24/2012) [facility]ologist [facility] DEXA Scan Normal Historical Provider HEALTH MAINTENANCE Final Result * MAMMOGRAPHY (01/24/2012) Pathologist [facility] Mammogram Normal [facility] Provider HEALTH MAINTENANCE Final Result from Last 3 Months or Most Recently Relevant to Health Maintenance Insurance [facility] MEDICARE [facility] MEDICARE Address: [place] [id number] [place] [phone] [facility] MEDICARE Advance Directives For more information, please contact: [phone] Documents on File Type Date Recorded Patient Meter Attendant Expl anation ADVANCE DIRECTIVE 04/14/2019 POWER OF A TTORNEY-MEDICAL * Full Code (Latest Code Status on File) Date Activated Date Inactivated Comments 09/14/2023 10:32 AM 09/14/2023 5:13 PM * LIMITED - No CPR Date Activated Date Inactivated Comments 07/17/2023 3:34 AM 07/29/2023 9:51 PM Question Answer Comments Provide aggressive medical m anagement before a full cardiopulmonary arrest occurs. Use antibiotics, IV Fluids, and medical treatment unless specifically selected below: No intubationNo cardioversion * Full Code Date Activated Date Inactivated Comments 07/17/2023 3:33 AM 07/17/2023 3:34 AM * LIMITED - No CPR Date Activated Date Inactivated Comments 04/14/2019 10:44 PM 04/19/2019 3:50 PM Question Answer Comments Discussed with the following attending physician : brett Care Teams Instrument Panel Assembler Relationship Specialty Start Date End [place] [id number] PCP - General Family Medicine 03/15/22
--- OUTSIDE RECORDS SUMMARY | 2024-08-13 05:20 | XMS_ITS | Encounter Summary ---
Author Organization [facility] Healthcare Address [address] [place] [address] Care Team Providers Care Payroll And Benefits Coordinator Name Role Phone Tristan Watson MD Primary Care Provider [phone] Reason for Visit * Reason Onset Date Comments Medical Question/Miscellaneous 05/03/2024 Encounter Details Date Type Department Care Team (Late st Contact Info) Description 05/03/2024 Telephone [facility] [address] [address] Tristan Watson MD [address] [place] [phone] Medical Question/Miscellaneous Social History Tobacco Use Types Packs/Day Years Used Date Smoking Tobacco: Never Smokeless Tobacco: Never Comments:Mother and Father b oth heavy smokers Alcohol Use Standard Drinks/Week Comments Not Currently 0 (1 standard drink = 0.6 oz pur e alcohol) no recently [facility] Utilities Answer Date Recorded In the past 12 months has [employer], gas, oil, or water company threatened to [...] week 04/03/2024 How often do you attend temple or gnosticism serv ices? Patient declined 04/03/2024 Do you belong to any clubs o r organizations such as temple groups, unions, fraternal or athletic groups, or [...] any time in the past 12 m [facility], were you homeless or living in a [facility] (including now)? No 04/03/2024 Personal Safety Answer Date Recorded Have you ever been in or are you currently in a harmful physical or emotional relationship or is someone making you feel afraid or unsafe? Denies 09/14/2023 Comments Unknown Sex and Gender Information Value Date Recorded Sex Assigned at Not on file Legal Sex Female 11:52 PM [employer] Gender Identity Female 09/15/2022 2:42 PM [employer] Sexual Orientation Straight 09/15/2022 2: 42 PM [employer]EL[employer] documented as of this encounter Miscellaneous Notes * Telephone Encounter - Jeanette John MA - 05/04/2024 8:34 AM CDT Attempted to contact number listed below, kept saying call cannot go through. * Telephone Encounter - Jeanette John MA - 05/04/2024 7:53 AM CDT Physical deconditioning for dx correct? * Telephone Encounter - Isatu Murray - 05/03/2024 3:16 PM CDT Medical Question/Miscellaneous Caller???s Concern: Jil with [facility], stated on the patient's face to face sheet, there is no diagnosis listed on why the patient is weak and is needing physical therapy. Jil has a secure line, okay to leave voicemails Does message need to be routed? Yes-Action Needed documented in this encounter Plan of Treatment Not on file documented as of this encounter Visit Diagnoses Not on filedocumented in this encounter Care Teams Payroll And Benefits Coordinator Relationship Specialty Start Date End Date Tristan Watson [place] [address] PCP - General Family Medicine 03/15/22 documented as of this encounter
--- OUTSIDE RECORDS SUMMARY | 2024-08-13 05:20 | XMS_ITS | Encounter Summary ---
Author Organization [facility] Healthcare Address [address] [place] [address] Care Team Providers Care Hospital Mortician Name Role Phone Tristan Watson MD Primary Care Provider [phone] Ana Lima RN Unavailable [phone] Reason for Visit * Reason Comments Follow-up Pt was recently disc [facility]arged from [facility]. Encounter Details Date Type Department Care Team (Late st Contact Info) Description 04/10/2024 9:30 AM CDT Office Visit [facility] [address] [place] [address] Tristan Watson MD [address] [place] [id number] Takotsubo cardiomyopathy (Primary Dx); Pure hypercholesterolemia; Benign hypertension; Need for hepatitis B screening test; Chronic stasis dermatitis; Recurrent major depressive disorder, in partial remission (HCC); Class 3 severe obesity due to excess calories with serious comorbidity and body mass index (BMI) of 40.0 to 44.9 in adult (HCC); Longstanding persistent atrial fibrillation (CMS/HCC) (HCC); Chronic pain syndrome; Physical deconditioning Social History Tobacco Use Types Packs/Day Years Used Date Smoking Tobacco: Never Smokeless Tobacco: Never Comments:Mother and Father b oth heavy smokers Alcohol Use Standard Drinks/Week Comments Not Currently 0 (1 standard drink = 0.6 oz pur e alcohol) no recently [facility] Utilities Answer Date Recorded In the past 12 months has th e electric, gas, oil, or water [employer] threatened to shut off services in your home? No 04/03/2024 Social Connection and Isolation Panel [NHANES] A nswer Date Recorded In a typical week, how many times do you talk on the phone with family, friends, or neighbors? Twice a week 04/03/2024 How often do you get togethe r with friends or relatives? Twice a week 04/03/2024 How often do you attend druze or christian serv ices? Patient declined 04/03/2024 Do you belong to any clubs o r organizations such as druze groups, unions, fraternal or athletic groups, or [...] any time in the past 12 m [facility], were you homeless or living in a half-way (including now)? No 04/03/2024 Personal Safety Answer Date Recorded Have you ever been in or are you currently in a harmful physical or emotional relationship or is someone making you feel afraid or unsafe? 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 Gender Identity Female 09/15/2022 2:42 PM WHEELCHAIR RENTAL CLERK Sexual Orientation Straight 09/15/2022 2: 42 PM WHEELCHAIR RENTAL CLERK documented as of this encounter Last Filed Vital Signs Vital Sign Reading [...] Mass Index 42.07 04/10/2024 8:58 AM CDT documented in this encounter Ordered Prescriptions Prescription Sig Dispense Quantity Refills Last Filled Start Date End Date Phospha 250 Neutral 250 mg tablet Take 1 tablet (250 mg total) by mouth 4 (four) times a day 360 tablet 04/10/2024 07/27/2024 documented in this encounter Progress Notes * Tristan Watson MD - 04/10/2024 9:30 AM CDT Images from the original note were not included. Transition of Care Visit Subjective/Objective Patient ID: Lupis Juarez is a 78 y.o. female. Patient is seen in the office today for a transition of care visit, after a recent hospitalization. Admission Date: 07/29/23 Discharge Date: 03/29/24 Complexity of Medical Decision Making: moderate Diagnoses and management options were considered. Medical records, diagnostic tests and other hospital data was reviewed. Chief Complaint Follow-up (Pt was recently discharged from [facility] HPI Patient discharged from [facility] to home after prolonged stay Patient admitted to hospital on 07/16/23 for acute hypoxic respiratory failure, found to have NSTEMI, 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, and Taktsobo Cardiomyoathy Atrial Fibrillation -enlarged left atrium Cardiolmyoatphy: -LV returned to normal range; with moderate enlargement of left atrium -blood pressure is low normal, has some vertigo MDD: -stable, well controlled; -no current symptoms Chronic Pain: -has resolved, no longer having severe pain -using 1/2 tablet of hydrocodone if has pain in leg --pain is no longer as frequent; mild compared to prior Obesity: -weight is trending down; did not eat well in [facility] -managing portion sizes Decreased Physical Function: -can walk short distances, from bed to chair or bathroom in home -uses wheelchair when leaves the home -stable from prior to hospitalization Home Health is established for patient Allergies: Allergies Allergen Reactions Quinapril Other (See comments) Reaction: swollen mouth, Current Medications: Outpatient Encounter Medications as of 04/10/2024 Medication Sig Dispense Refill acetaminophen (TYLENOL) 325 mg tablet Take 2 tablets (650 mg total) by mouth every 6 (six) hours asneeded for pain albuterol HFA (ProAir HFA) 90 mcg/actuation inhaler Inhale 2 puffs every 4 (four) hours as needed for shortness of breath As needed for wheezing 3 each 3 amiodarone (PACERONE) 200 mg tablet apixaban (ELIQUIS) 2.5 mg tablet Take 1 tablet (2.5 mg total) by mouth every 12 (twelve) hours 180 tablet 3 atorvastatin (LIPITOR) 10 mg tablet TAKE 1/2 TABLET BY MOUTH EVERY DAY 45 tablet 3 buPROPion SR (ZYBAN) 150 mg 12 hr tablet Take 1 tablet (150 mg total) by mouth 2 (two) times a day 180 tablet 3 carvediloL (COREG) 3.125 mg tablet Take 1 tablet (3.125 mg total) by mouth 2 (two) times a day withmeals 180 tablet 3 FLUoxetine (PROzac) 20 mg capsule Take 3 capsules (60 mg total) by mouth daily FLUoxetine (PROzac) 40 mg capsule Take 1 capsule (40 mg total) by mouth daily fluticasone propion-salmeteroL (Advair Diskus) 250-50 mcg/dose diskus inhaler Inhale 1 puff 2 (two)times a day Rinse mouth with water after use to reduce aftertaste and incidence of candidiasis. Do not swallow. 3 each 3 furosemide (LASIX) 40 mg tablet Take 1 tablet (40 mg total) by mouth daily 30 tablet 1 sacubitriL-valsartan (ENTRESTO) 24-26 mg tablet Take 1 tablet by mouth 2 (two) times a day 180 tablet 3 spironolactone (ALDACTONE) 25 mg tablet Take 1 tablet (25 mg total) by mouth daily 90 tablet 3 topiramate (TOPAMAX) 25 mg tablet Take 1 tablet (25 mg total) by mouth 2 (two) times a day 180 tablet 4 [DISCONTINUED] Phospha 250 Neutral 250 mg tablet miconazole 2 % powder Apply topically 2 (two) times a day (Patient not taking: Reported on 04/10/2024) 70 g 0 Phospha 250 Neutral 250 mg tablet Take 1 tablet (250 mg total) by mouth 4 (four) times a day 360 tablet 0 [DISCONTINUED] apixaban (ELIQUIS) 2.5 mg tablet Take 1 tablet (2.5 mg total) by mouth every 12 (twelve) hours 60 tablet 1 [DISCONTINUED] carvediloL (COREG) 3.125 mg tablet Take 1 tablet (3.125 mg total) by mouth 2 (two) times a day with meals 60 tablet 1 [DISCONTINUED] famotidine (PEPCID) 20 mg tablet Take 1 tablet (20 mg total) by mouth daily (Patientnot taking: Reported on 04/10/2024) 30 tablet 1 [DISCONTINUED] ondansetron (ZOFRAN) 8 mg tablet Take 1 tablet (8 mg total) by mouth every 8 (eight)hours as needed for nausea or vomiting (Patient not taking: Reported on 04/10/2024) [DISCONTINUED] sacubitriL-valsartan (ENTRESTO) 24-26 mg tablet Take 1 tablet by mouth 2 (two) timesa day 60 tablet 0 [DISCONTINUED] spironolactone (ALDACTONE) 25 mg tablet Take 1 tablet (25 mg total) by mouth daily 30 tablet 1 No facility-administered encounter medications on file as of 04/10/2024. I, Tristan Watson MD have personally reviewed pertinent inpatient and/or ED records, including discharge medications and [employer] if applicable. This patient's discharge medication list has been reviewed and reconciled with her outpatient medication list and has also been reviewed with patient and/or caregiver. I have noted any changes. 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 HX OTHER MEDICAL IGT Hypertension Moderate episode of recurrent major depressive disorder ([facility]) 12/05/2017 NSTEMI (non-ST elevated myocardial infarction) ([facility]) ([facility]) 07/16/2023 Past Surgical History: Procedure Laterality Date CATARACT EXTRACTION 2001 RHINOPLASTY RHINOPLASTY Family History: Family History Problem Relation Age of Onset Dementia Mother Dementia; Hypertension Mother Hypertension; Depression Mother Depression; Kidney disease Mother Dementia Father Dementia; Hypertension Father Hypertension; Alzheimer's disease Father Stroke Father Hypertension Brother Hypertension; Learning disabilities Brother Social History: Social History Tobacco Use Smoking status: Never Smokeless tobacco: Never Tobacco comments: Mother and Father both heavy smokers Substance and Sexual Activity Drug use: No Sexual activity: Not Currently Partners: Male Alcohol Use: Not At Risk (07/17/2023) AUDIT-C Frequency of Alcohol Consumption: Never Average Number of Drinks: Patient does not drink Frequency of Binge Drinking: Never Review of Systems: Review of Systems Constitutional: Negative for activity change, chills and fever. HENT: Negative for sore throat. Respiratory: Negative for cough and shortness of breath. Cardiovascular: Positive for leg swelling. Negative for chest pain. Gastrointestinal: Negative for abdominal pain, constipation, diarrhea, nausea and vomiting. Musculoskeletal: Negative for arthralgias and myalgias. Physical Exam: BP 100/60 (BP Location: Right arm, Patient Position: Sitting) Pulse 66 Temp 36.4 ??C (97.6 ??F)(Oral) Resp 18 Ht 157.5 cm (5' 2 ) Wt 104.3 kg (230 lb) Comment: pt reported SpO2 97% BMI42.07 kg/m?? Physical Exam Vitals reviewed. Constitutional: Appearance: Normal appearance. HENT: Head: Normocephalic and atraumatic. Cardiovascular: Rate and Rhythm: Normal rate. Rhythm irregularly irregular. Pulses: Normal pulses. Heart sounds: Normal heart sounds. Pulmonary: Effort: Pulmonary effort is normal. Breath sounds: No wheezing, rhonchi or rales. Abdominal: General: Abdomen is flat. Palpations: Abdomen is soft. Musculoskeletal: General: No swelling or signs of injury. Normal range of motion. Right lower le+ Edema present. Left lower le+ Edema present. Skin: General: Skin is warm and dry. Neurological: General: No focal deficit present. Mental Status: She is alert and oriented to person, place, and time. Psychiatric: Mood and Affect: Mood normal. Behavior: Behavior normal. Thought Content: Thought content normal. Body mass index is 42.07 kg/m??. Glucose: Glucose Date Value Ref Range Status 09/14/2023 117 70 - 199 mg/dL Final Comment: Interpretive Data Fasting glucose >/= 126 mg/dl is diagnostic for diabetes. Fasting is defined as no caloric intake for at least 8 hours. Fasting glucose between 100 mg/dl to 125 mg/dl is diagnostic of prediabetes. In a patient with classic symptoms of hyperglycemia or hyperglycemic crisis, a random glucose >/= 200 mg/dl is diagnostic for diabetes. In the absence of unequivocal hyperglycemia, results should be confirmed by repeat testing. The classification and Diagnosis of Diabetes Diabetes Care 2021; 46: S19-S40. Current interpretive data was last revised 2022. 11/14/2020 86 65 - 99 mg/dL Final Lab Results Component Value Date WBC 7.4 09/14/2023 HGB 14.5 09/14/2023 HCT 44.1 09/14/2023 MCV 100.2 (H) 09/14/2023 MEDICATIONS: Prior to Admission medications Medication Sig Start Date End Date Taking? Authorizing Provider acetaminophen (TYLENOL) 325 mg tablet Take 2 tablets (650 mg total) by mouth every 6 (six) hours asneeded for pain Provider, MD Maryuri albuterol HFA (ProAir HFA) 90 mcg/actuation inhaler Inhale 2 puffs every 4 (four) hours as needed for shortness of breath As needed for wheezing 03/28/23 Tristan Watson MD amiodarone (PACERONE) 200 mg tablet 02/01/24 Maryuri Ansari MD apixaban (ELIQUIS) 2.5 mg tablet Take 1 tablet (2.5 mg total) by mouth every 12 (twelve) hours 04/03/24 04/03/25 Tristan Watson MD atorvastatin (LIPITOR) 10 mg tablet TAKE 1/2 TABLET BY MOUTH EVERY DAY 03/28/23 Tristan Watson MD buPROPion SR (ZYBAN) 150 mg 12 hr tablet Take 1 tablet (150 mg total) by mouth 2 (two) times a day Patient not taking: Reported on 04/03/2024 03/28/23 Tristan Watson MD carvediloL (COREG) 3.125 mg tablet Take 1 tablet (3.125 mg total) by mouth 2 (two) times a day withmeals 04/03/24 04/03/25 Tristan Watson MD famotidine (PEPCID) 20 mg tablet Take 1 tablet (20 mg total) by mouth daily 07/30/23 04/03/24 Krzysztof Sarah MD FLUoxetine (PROzac) 20 mg capsule Take 3 capsules (60 mg total) by mouth daily Maryuri Ansari MD fluticasone propion-salmeteroL (Advair Diskus) 250-50 mcg/dose diskus inhaler Inhale 1 puff 2 (two)times a day Rinse mouth with water after use to reduce aftertaste and incidence of candidiasis. Do not swallow. 03/28/23 Tristan Watson MD furosemide (LASIX) 40 mg tablet Take 1 tablet (40 mg total) by mouth daily 07/30/23 07/29/24 Krzysztof Sarah MD miconazole 2 % powder Apply topically 2 (two) times a day 07/29/23 Krzysztof Sarah MD ondansetron (ZOFRAN) 8 mg tablet Take 1 tablet (8 mg total) by mouth every 8 (eight) hours as needed for nausea or vomiting Maryuri Ansari MD Phospha 250 Neutral 250 mg tablet 09/08/23 Maryuri Ansari MD sacubitriL-valsartan (ENTRESTO) 24-26 mg tablet Take 1 tablet by mouth 2 (two) times a day 04/03/24 04/03/25 Tristan Watson MD spironolactone (ALDACTONE) 25 mg tablet Take 1 tablet (25 mg total) by mouth daily 04/03/24 04/03/25 Tristan Watson MD topiramate (TOPAMAX) 25 mg tablet Take 1 tablet (25 mg total) by mouth 2 (two) times a day 11/30/23 11/29/24 Tristan Watson MD Major Procedures and Tests: Major Procedures and Tests Performed During Inpatient Stay: Studies Pending at Discharge (Includes Lab and Radiology) -none Coordination of Home care services and follow-up with specialist appointments confirmed. Instructions have been provided to and reviewed with the patient/cna caregiver prior to discharge. Assessment/Plan Diagnoses and all orders for this visit: Takotsubo cardiomyopathy (Primary) Assessment & Plan: Stable, well controlled, LVEF has returned to normal Continue carvedilol 3.125 mg b.i.d., furosemide 40 mg daily, Entresto 1 tablet b.i.d., spironolactone 25 mg daily Pure hypercholesterolemia Assessment & Plan: Stable, well controlled; no major side effects from medication Continue atorvastatin 10 mg daily Orders: - Lipid panel; Future - CBC with auto differential; Future - Comprehensive metabolic panel; Future Benign hypertension Assessment & Plan: Stable, well controlled, blood pressure at goal; patient blood pressure on low side of normal; reports occasional episodes of dizziness; would work with Cardiology to evaluate adjustment dose as needed Continue spironolactone 25 mg daily, Entresto 24-26 mg b.i.d., carvedilol 3.125 mg b.i.d. Orders: - CBC with auto differential; Future - Comprehensive metabolic panel; Future Need for hepatitis B screening test Chronic stasis dermatitis Assessment & Plan: Stable, continues to have significant peripheral edema in bilateral lower extremities; has some thickening and darkening skin; however no evidence of infection Continue furosemide 40 mg daily Recurrent major depressive disorder, in partial remission (HCC) Assessment & Plan: Stable, well controlled; patient reports no depressive symptoms Continue bupropion 150 mg b.i.d., fluoxetine 60 mg daily Class 3 severe obesity due to excess calories with serious comorbidity and body mass index (BMI) of40.0 to 44.9 in adult ([facility]) Assessment & Plan: Stable, well controlled; improving; patient has been having weight loss; working on eating smaller portions Encouraged continued work on dietary changes to reduce weight Longstanding persistent atrial fibrillation (CMS/HCC) ([facility]) Assessment & Plan: Stable, well controlled, appropriate rate; irregular rhythm today Follows with cardiology Continue amiodarone 200 mg daily, Eliquis 2.5 mg b.i.d. Chronic pain syndrome Assessment & Plan: Stable, well controlled; patient reports no significant pain at this time; continues to use hydrocodone p.r.n. for severe pain Physical deconditioning Assessment & Plan: Stable, not well controlled; patient is at baseline prior to recent hospitalization Patient is able to get out of bed; ambulate short distances to bathroom or to chair Home physical therapy established Other orders - Phospha 250 Neutral 250 mg tablet; Take 1 tablet (250 mg total) by mouth 4 (four) times a day documented in this encounter Miscellaneous Notes * Assessment & Plan Note - Tristan Watson MD - 04/10/2024 2:18 PM CDT Associated Problem(s): Physical deconditioning Stable, not well controlled; patient is at baseline prior to recent hospitalization Patient is able to get out of bed; ambulate short distances to bathroom or to chair Home physical therapy established * Assessment & Plan Note - Tristan Watson MD - 04/10/2024 2:17 PM CDT Associated Problem(s): Chronic pain syndrome Stable, well controlled; patient reports no significant pain at this time; continues to use hydrocodone p.r.n. for severe pain * Assessment & Plan Note - Tristan Watson MD - 04/10/2024 2:17 PM CDT Associated Problem(s): Permanent atrial fibrillation (CMS/HCC) (HCC) Stable, well controlled, appropriate rate; irregular rhythm today Follows with cardiology Continue amiodarone 200 mg daily, Eliquis 2.5 mg b.i.d. * Assessment & Plan Note - Tristan Watson MD - 04/10/2024 2:17 PM CDT Associated Problem(s): Takotsubo cardiomyopathy Stable, well controlled, LVEF has returned to normal Continue carvedilol 3.125 mg b.i.d., furosemide 40 mg daily, Entresto 1 tablet b.i.d., spironolactone 25 mg daily * Assessment & Plan Note - Tristan Watson MD - 04/10/2024 2:17 PM CDT Associated Problem(s): Pure hypercholesterolemia Stable, well controlled; no major side effects from medication Continue atorvastatin 10 mg daily * Assessment & Plan Note - Tristan Watson MD - 04/10/2024 2:16 PM CDT Associated Problem(s): Class 3 severe obesity due to excess calories with serious comorbidity and body mass index (BMI) of 40.0 to 44.9 in adult ([facility]) Stable, well controlled; improving; patient has been having weight loss; working on eating smaller portions Encouraged continued work on dietary changes to reduce weight * Assessment & Plan Note - Tristan Watson MD - 04/10/2024 2:16 PM CDT Associated Problem(s): Recurrent major depressive disorder, in partial remission (HCC) Stable, well controlled; patient reports no depressive symptoms Continue bupropion 150 mg b.i.d., fluoxetine 60 mg daily * Assessment & Plan Note - Tristan Watson MD - 04/10/2024 2:16 PM CDT Associated Problem(s): Chronic stasis dermatitis Stable, continues to have significant peripheral edema in bilateral lower extremities; has some thickening and darkening skin; however no evidence of infection Continue furosemide 40 mg daily * Assessment & Plan Note - Tristan Watson MD - 04/10/2024 2:16 PM CDT Associated Problem(s): Benign hypertension Stable, well controlled, blood pressure at goal; patient blood pressure on low side of normal; reports occasional episodes of dizziness; would work with Cardiology to evaluate adjustment dose as needed Continue spironolactone 25 mg daily, Entresto 24-26 mg b.i.d., carvedilol 3.125 mg b.i.d. documented in this encounter Plan of Treatment Scheduled Orders Name Type Priority Associated Diagnoses Orde r Schedule Lipid panel Lab Routine Pure hypercholesterolemia Expected: 04/10/2024, Expires: 04/03/2025 CBC with auto differential Lab Routine Pure hypercholesterolemia Benign hypertension Expected: 04/10/2024, Expires: 04/03/2025 Comprehensive metabolic panel Lab Routine Pure hypercholesterolemia Benign hypertension Expected: 04/10/2024, Expires: 04/03/2025 documented as of this encounter Visit Diagnoses Diagnosis Takotsubo cardiomyopathy- Primary Takotsubo syndrome Pure hypercholesterolemia Benign hypertension Essential hypertension, benign Need for hepatitis B screening test Chronic stasis dermatitis Recurrent major depressive disorder, in partial remission (HCC) Class 3 severe obesity due to excess calories with serious comorbidity and body mass index (BMI) of 40.0 to 44.9 in adult (HCC) Longstanding persistent atrial fibrillation (CMS/HCC) (HCC) Chronic pain syndrome Physical deconditioning Muscular wasting and disuse atrophy, not elsewhere classified documented in this encounter Discontinued Medications Medication Sig Discontinue Reason Start Date End Da te ondansetron (ZOFRAN) 8 mg tablet Take 1 tablet (8 mg total) by mouth every 8 (eight) hours as needed for nausea or vomiting Therapy completed 04/10/2024 famotidine (PEPCID) 20 mg tablet Take 1 tablet (20 mg total) by mouth daily Therapy completed 07/30/2023 04/10/2024 Phospha 250 Neutral 250 mg tablet Reorder 09/08/2023 04/10/2024 documented as of this encounter Historical Medications * This list may reflect changes made after this encounter. FLUoxetine (PROzac) 40 mg capsule Take 1 capsule (40 mg total) by mouth daily 02/28/2024 added in this encounter Care Teams Hospital Mortician Relationship Specialty Start Date End Date Tristan Watson MD [address] [place] [address] PCP - General Family Medicine 03/15/22 Ana Lima, BREA [address] [place] [address] [address] [place] [address] Mixed Crop Farmer 03/30/24 04/17/24 documented as of this encounter
--- OUTSIDE RECORDS SUMMARY | 2024-08-13 05:20 | XMS_ITS | Encounter Summary ---
Author Organization [facility] Healthcare Address [address] [place] [address] Care Team Providers Care Paint Booth Operator Name Role Phone Tristan Watson MD Primary Care Provider [phone] Ana Lima RN Unavailable [phone] Reason for Visit * Reason Onset Date Comments Medical Question/Miscellaneous 03/26/2024 Encounter Details Date Type Department Care Team (Late st Contact Info) Description 03/26/2024 Telephone [facility] [address] [place] [address] Tristan Watson MD [address] [place] [address] Medical Question/Miscellaneous Social History Tobacco Use Types Packs/Day Years Used Date Smoking Tobacco: Never Smokeless Tobacco: Never Comments:Mother and Father b oth heavy smokers Alcohol Use Standard Drinks/Week Comments Not Currently 0 (1 standard drink = 0.6 oz pur e alcohol) no recently [facility] Utilities Answer Date Recorded In the past 12 months has [employer], gas, oil, or water company threatened [...] week 04/03/2024 How often do you attend adventism or taoism serv ices? Patient declined 04/03/2024 Do you belong to any clubs o r organizations such as adventism groups, unions, fraternal or athletic groups, or [...] any time in the past 12 m [facility], were you homeless or living in a senior care (including now)? No 04/03/2024 Personal Safety Answer Date Recorded Have you ever been in or are you currently in a harmful physical or emotional relationship or is someone making you feel afraid or unsafe? Denies 09/14/2023 Comments Unknown Sex and Gender Information Value Date Recorded Sex Assigned at Not on file Legal Sex Female 11:52 PM ANESTHESIA TECH Gender Identity Female 09/15/2022 2:42 PM ANESTHESIA TECH Sexual Orientation Straight 09/15/2022 2: 42 PM ANESTHESIA TECH documented as of this encounter Miscellaneous Notes * Telephone Encounter - Maria Elena Holman MA - 03/26/2024 10:02 AM CDT Attempted to contact David. No answer. Left detailed message w/ David giving verbal order. FYI Dr Watson. * Telephone Encounter - Riana Figueroa - 03/26/2024 9:28 AM CDT Medical Question/Miscellaneous Caller? s Concern: Davdi w[facility] asking if Dr. Watson will follow verbal order for PT & OT. Patient is being discharged from [facility] on 03.29. Dx, Impacted cerumen, bilateral. Does message need to be routed? Yes-Action Needed documented in this encounter Plan of Treatment Not on file documented as of this encounter Visit Diagnoses Not on filedocumented in this encounter Care Teams Paint Booth Operator Relationship Specialty Start Date End Date Tristan [place] [address] PCP - General Family Medicine 03/15/22 Ana Lima RN [address] [place] [address] DR RENEE [address] [place] [id number] Anesthesia Tech 03/30/24 04/17/24 documented as of this encounter
--- OUTSIDE RECORDS SUMMARY | 2024-08-13 05:20 | XMS_ITS | Referral Summary ---
Author Organization [facility] Address [address] [place] [address] Care Team Providers Care Hand Laster Name Role Phone Tristan Rivers MD Primary Care Provider [phone] Encounters Date Type Department Care Team Description 08/10/2024 Orders Only [facility] Cardiology [address] [place] [address] Christian Springer MD from Last 3 Months Allergies Active Allergy Reactions Criticality Noted Date Comments Quinapril Other (See comments) Reaction: swollen mouth, Medications albuterol HFA (ProAir HFA) 90 mcg/actuation inhaler Inhale 2 puffs every 4 (four) hours as needed for shortness of breath As needed for wheezing 3 each 3 03/28/20 Active atorvastatin (LIPITOR) 10 mg tablet TAKE [...] a day 180 tablet 3 04/03/20 24 Active spironolactone (ALDACTONE) 25 mg tablet Take [...] MOUTH FOUR TIMES DAILY 360 tablet 07/27/20 Active Phospha 250 Neutral 250 mg tablet [...] AND PLAN FOR TYPICAL ATRIAL FLUTTER (CMS/HCC) ([facility]) WRITTEN ON 09/07/2023 3:37 PM BY JOSEFINA [...] TYPICAL ATRIAL FLUTTER (CMS/HCC) (HCC) WRITTEN ON 01/19/2024 2:29 PM BY JOSEFINA [...] 05/28/2021 Assessment & Plan (10/05/2023 1:14 PM GEOSPATIAL DEVELOPER): elsStable, no major changes; will continue to monitor, especially now that patient is taking amiodarone Assessment & Plan (03/28/2023 4:55 PM CDT): Stable well controlled, TSH at goal; continue to monitor closely Assessment & Plan (09/20/2022 2:07 PM GEOSPATIAL DEVELOPER): Stable, generally well controlled, TSH at target [...] b.i.d. Assessment & Plan (10/05/2023 1:14 PM GEOSPATIAL DEVELOPER): Stable, improving; using 3.5 L of supplemental oxygen for symptom relief Continue Entresto 24-26 mg b.i.d., spironolactone 25 mg daily, carvedilol 3.125 mg b.i.d., Lasix 40 mg daily Pure hypercholesterolemia 01/16/2020 Assessment & Plan (04/10/2024 2:17 PM CDT): Stable, well controlled; no major side effects from medication Continue atorvastatin 10 mg daily Assessment & Plan (09/20/2022 2:05 PM GEOSPATIAL DEVELOPER): Stable, well controlled; lipids at target for [...] exercises Assessment & Plan (10/05/2023 1:13 PM GEOSPATIAL DEVELOPER): Stable, no significant changes to wait; patient [...] foods Assessment & Plan (09/20/2022 2:07 PM GEOSPATIAL DEVELOPER): Weight is stable from prior, no significant [...] work. Assessment & Plan (09/10/2019 12:59 PM GEOSPATIAL DEVELOPER): She was counseled on the importance of maintaining a healthy weight and the risks of obesity. Weight loss recommended. Assessment & Plan (07/09/2019 2:27 PM GEOSPATIAL DEVELOPER): Morbid obesity is a bmi of 40 [...] daily Assessment & Plan (10/05/2023 1:13 PM GEOSPATIAL DEVELOPER): Stable, improving; patient reports initially was depressed, now doing better that she is engaged with therapy Continue bupropion 150 mg b.i.d., fluoxetine 40 mg daily Assessment & Plan (03/28/2023 4:54 PM CDT): Stable, well controlled; patient generally in good mood Continue Zyban 150 mg b.i.d., fluoxetine 40 mg daily Assessment & Plan (09/20/2022 2:08 PM GEOSPATIAL DEVELOPER): Stable, generally well controlled, patient reports tries [...] Plan (05/20/2020 2:24 PM CDT): Well [facility]ed [facility] meds Assessment & Plan (01/16/2020 2:17 PM [...] b.i.d. Assessment & Plan (09/20/2022 2:08 PM GEOSPATIAL DEVELOPER): Stable, generally well controlled, symptoms worsened during [...] Plan (03/14/2018 10:16 AM CDT): [facility] Assessment & Plan (12/05/2017 [...] optno Assessment & Plan (07/09/2019 2:33 PM GEOSPATIAL DEVELOPER): Pain meds reduced taking 1-2 a day and this will hope to cont. Assessment & Plan (03/06/2019 2:31 PM CDT): Renewed med for stable pain Assessment & Plan (10/24/2018 2:20 PM CDT): Stable pain meds and signed pain contracafdt Assessment & Plan (06/28/2018 1:53 PM GEOSPATIAL DEVELOPER): ON 3 NORCO A day and stable. Assessment & Plan (03/14/2018 10:09 AM CDT): Hydrocodone muting pain and uses 4 a ocntreras al the time.aware of drug linmits. Tolerance. [...] daily Assessment & Plan (10/05/2023 1:13 PM GEOSPATIAL DEVELOPER): Stable, well controlled; blood pressure at goal; no chest pain or pressure Continue carvedilol 3.125 mg b.i.d., Entresto 24-26 b.i.d., spironolactone 25 mg daily Assessment & Plan (03/28/2023 4:52 PM CDT): Stable, well controlled; blood pressure at goal Continue clonidine 0.1 mg b.i.d., furosemide 20 mg b.i.d., irbesartan 300 mg daily Assessment & Plan (09/20/2022 2:05 PM GEOSPATIAL DEVELOPER): Stable, well controlled; blood pressure at target, [...] bp. Assessment & Plan (09/10/2019 12:59 PM GEOSPATIAL DEVELOPER): Recommend DASH diet, heart-healthy lifestyle, exercise. Discussed the risks of hypertension. Assessment & Plan (07/09/2019 2:25 PM GEOSPATIAL DEVELOPER): The bp good and no changes On [...] 25 Assessment & Plan (06/28/2018 1:53 PM GEOSPATIAL DEVELOPER): BP CONT A TOUCH HIGH AND ADD [...] return Assessment & Plan (07/09/2019 2:36 PM GEOSPATIAL DEVELOPER): Iron def and on iron an dcont and check cnts and iron Resolved Problems Problem Noted Date Diagnosed Date Resolved Date NSTEMI (non-ST elevated myoc ardial infarction) ([facility]/HCC) 07/16/2023 04/10/2024 Colon cancer screening 06/28/201805/20 Assessment & Plan (06/28/2018 1:58 PM GEOSPATIAL DEVELOPER): Order a cologuard Simple chronic bronchitis 2018 Assessment & Plan (01/16/2020 2:11 PM CDT): Uses advair bid all time and last night for first imt uses rescue inhaler Assessment & Plan (06/28/2018 1:54 PM GEOSPATIAL DEVELOPER): Cough well and hydrocodone tid helps Bilateral [...] out hormones and has apptn to see architect intern . Will see them and take over for hormonies Moderate episode of recurren t major depressive disorder 12/05/2017 10/24/2018 Assessment & Plan (06/28/2018 1:54 PM GEOSPATIAL DEVELOPER): frenewed prozac and feels does well Assessment & Plan [...] 01/16/2020 Assessment & Plan (07/09/2019 2:26 PM GEOSPATIAL DEVELOPER): Posterior lower legs with chronic changes more and over all the legs redness gone and no ac tive infectoin. Immunizations Name Administration Dates Next Due Influenza, Quadrivalent, Hig h Dose, Preservative Free, Intrr 07/29/2023,05/28/2021,05/20/2020 Influenza, Quadrivalent, Spl it, Preservative Free, Intramuscular 05/25/2013 Influenza, Split 05/11/2010 Influenza, Trivalent, High D ose, Split, Preservative Free, Intramuscular 04/19/2019,2018,05/14/2016,05/12,05/27/2014 Influenza, Trivalent, IM (MDV) 7,05/10/2012,05/12/2009,05/24 Influenza, Unspecified 09/10/2019(Deferred: Cora ent Refused) Pneumococcal Conjugate PCV 13 03/04/2015 Pneumococcal Polysaccharide PPV23 05/20/2020 Tdap 12/31/2013 Social History Tobacco Use Types Packs/Day Years Used Date Smoking Tobacco: Never Smokeless Tobacco: Never Tobacco Cessation:Counseling Given: Not Answered Comments:Mother and Father both heavy smokers Alcohol Use Standard Drinks/Week Comments Not Currently 0 (1 standard drink = 0.6 oz pur e alcohol) no recently [employer] Utilities Answer Date Recorded In the past 12 months has e [employer], gas, oil, or water [employer] threatened to shut off services in your home? No 04/03/2024 Social Connection and Isolation Panel [NHANES] A nswer Date Recorded In a typical week, how many times do you talk on the phone with family, friends, or neighbors? Twice a week 04/03/2024 How often do you get togethe r with friends or relatives? Twice a week 04/03/2024 How often do you attend congregation or cheondoism serv ices? Patient declined 04/03/2024 Do you belong to any clubs o r organizations such as congregation groups, unions, fraternal or athletic groups, or [...] time in the past 12 m [facility], were you homeless or living in a custodial (including now)? No 04/03/2024 Personal Safety Answer Date Recorded Have you ever been in or are you currently in a harmful physical or emotional relationship or is someone making you feel afraid or unsafe? Denies 09/14/2023 Comments Unknown Sex and Gender Information Value Date Recorded Sex Assigned at Not on file Legal Sex Female 11:52 PM GEOSPATIAL DEVELOPER Gender Identity Female 09/15/2022 2:42 PM GEOSPATIAL DEVELOPER Sexual Orientation Straight 09/15/2022 2: 42 PM GEOSPATIAL DEVELOPER Last Filed Vital Signs Vital Sign Reading [...] 04/10/2024 8:58 AM CDT Plan of Treatment Not on file Procedures Procedure Name Priority Date/Time Associated Diagnosis Comments CARDIOLOGY DOCUMENT SCAN Routine 08/08/2024 10:34 AM GEOSPATIAL DEVELOPER COLONOSCOPY Routine 03/28/2013 DEXA SCAN Routine 01/24/2012 MAMMOGRAPHY Routine 01/24/2012 from Last 3 Months or Most Recently Relevant to Health Maintenance Results * Cardiology Document Scan (08/08/2024 10:34 AM GEOSPATIAL DEVELOPER) Anatomical Region Laterality Modality Other [facility] Beatriz Springer MD CV CARDIAC SERVICES PRO CEDURES Final Result * COLONOSCOPY (03/28/2013) Colonoscopy Abnormal Historical Provider HEALTH MAINTENANCE Final Result * DEXA SCAN (01/24/2012) DEXA Scan Normal Historical Provider HEALTH MAINTENANCE Final Result * MAMMOGRAPHY (01/24/2012) Mammogram Normal Historical Provider HEALTH MAINTENANCE Final Result from Last 3 Months or Most Recently Relevant to Health Maintenance Insurance [facility] MEDICARE [email or web address] MEDICARE Advance Directives For more information, please contact: [phone] Documents on File Type Date Recorded Patient [employer] Administrator Expl anation ADVANCE DIRECTIVE 04/14/2019 POWER OF [...] following attending physician : brett Care Teams Hand Laster Relationship Specialty Start Date End Date Tristan Rivers MD [address] [place] [address] PCP - General Family Medicine 03/15/22
--- OUTSIDE RECORDS SUMMARY | 2024-08-13 05:21 | XMS_ITS | Encounter Summary ---
Author Organization [facility] Healthcare Address [address] [place] [address] Care Team Providers Care Tax Processor Name Role Phone Tristan Watson MD Primary Care Provider [phone] Reason for Visit * Reason Comments Follow-up Encounter Details Date Type Department Care Team (Late st Contact Info) Description 09/07/2023 2:45 PM UNDER WATER ASSISTANT Office Visit [employer] at [address] [address] Josefina Husain MD [address] [place] [address] Takotsubo cardiomyopathy (Primary Dx); Typical atrial flutter (CMS/HCC) (HCC); Valvular heart disease Social History Tobacco Use Types Packs/Day Years Used Date Smoking Tobacco: Never Smokeless Tobacco: Never Tobacco Cessation:Counseling Given: Not Answered Alcohol Use Standard Drinks/Week Comments Not Currently 0 (1 standard drink = 0.6 oz pur e alcohol) no recently AUDIT-C Answer Date Recorded Q1: How often do you have a drink containing alcohol? Never 07/17/2023 Q2: How many drinks containi ng alcohol do you have on a typical day when you are drinking? Patient does not drink Q3: How often do you have si x or more drinks on one occasion? Never 07/17/2023 PHQ-2 Answer Date Recorded PHQ-2 Total Score (If total score is 3 or more points, staff should administer the PHQ-9) 0 09/20/2022 Personal Safety Answer Date Recorded Getting School Help Needed Denies 07/16 Comments Unknown Sex and Gender Information Value Date Recorded Sex Assigned at Not on file Legal Sex Female 11:52 PM UNDER WATER ASSISTANT Gender Identity Female 09/15/2022 2:42 PM UNDER WATER ASSISTANT Sexual Orientation Straight 09/15/2022 2: 42 PM UNDER WATER ASSISTANT documented as of this encounter Last Filed Vital Signs Vital Sign Reading Time Taken Comments Blood Pressure 92/65 09/07/2023 2:29 PM UNDER WATER ASSISTANT Pulse 79 09/07/2023 2:29 PM UNDER WATER ASSISTANT Temperature - - Respiratory Rate 14 09/07/2023 2:29 PM UNDER WATER ASSISTANT Oxygen Saturation - - Inhaled Oxygen Concentration - - Weight 131.5 kg (290 lb) 09/07/2023 2:29 PM UNDER WATER ASSISTANT Height 157.5 cm (5' 2 ) 09/07/2023 2:29 PM UNDER WATER ASSISTANT Body Mass Index 53.04 09/07/2023 2:29 PM UNDER WATER ASSISTANT documented in this encounter Progress Notes * Josefina Husain MD - 09/07/2023 2:45 PM CST Cardiology note Reason for Office Visit: Follow-up on cardiomyopathy Chief Complaint Patient presents with Follow-up History of Present Illness: Lupis Juarez is a 78 y.o. female last seen about 2 months ago in the hospital when she presentedwith takotsubo cardiomyopathy. [facility]. 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 HX OTHER MEDICAL IGT Hypertension Moderate episode of recurrent major depressive disorder (HCC) 12/05/2017 Past Surgical History: Procedure Laterality Date RHINOPLASTY RHINOPLASTY Family History Problem Relation Age of Onset Dementia Mother Dementia; Hypertension Mother Hypertension; Depression Mother Depression; Dementia Father Dementia; Hypertension Father Hypertension; Hypertension Brother Hypertension; Social History Tobacco Use Smoking status: Never Smokeless tobacco: Never Substance and Sexual Activity Drug use: No Sexual activity: Defer Alcohol Use: Not At Risk (07/17/2023) AUDIT-C Frequency of Alcohol Consumption: Never Average Number of Drinks: Patient does not drink Frequency of Binge Drinking: Never Allergies: Allergies Allergen Reactions Quinapril Other (See comments) Reaction: swollen mouth, Medications: Current Outpatient Medications Medication Sig Dispense Refill acetaminophen 32 mg/mL oral liquid albuterol HFA (ProAir HFA) 90 mcg/actuation inhaler Inhale 2 puffs every 4 (four) hours as needed for shortness of breath As needed for wheezing 3 each 3 amiodarone (PACERONE) 200 mg tablet Take 1 tablet (200 mg total) by mouth daily 30 tablet 1 apixaban (ELIQUIS) 2.5 mg tablet Take 1 tablet (2.5 mg total) by mouth every 12 (twelve) hours 60 tablet 1 buPROPion SR (ZYBAN) 150 mg 12 hr tablet Take 1 tablet (150 mg total) by mouth 2 (two) times a day 180 tablet 3 carvediloL (COREG) 3.125 mg tablet Take 1 tablet (3.125 mg total) by mouth 2 (two) times a day withmeals 60 tablet 1 famotidine (PEPCID) 20 mg tablet Take 1 tablet (20 mg total) by mouth daily 30 tablet 1 FLUoxetine (PROzac) 40 mg capsule Take 1 capsule (40 mg total) by mouth daily 30 capsule 1 fluticasone propion-salmeteroL (Advair Diskus) 250-50 mcg/dose diskus [...] by mouth 2 (two) times a day 60 tablet 0 spironolactone (ALDACTONE) 25 mg tablet Take 1 tablet (25 mg total) by mouth daily 30 tablet 1 amiodarone (PACERONE) 200 mg tablet Take 1 tablet (200 mg total) by mouth 2 (two) times a day for 8doses (Patient not taking: Reported on 09/07/2023) 8 tablet 0 atorvastatin (LIPITOR) 10 mg tablet TAKE 1/2 TABLET BY MOUTH EVERY DAY 45 tablet 3 miconazole 2 % powder Apply topically 2 (two) times a day (Patient not taking: Reported on 09/07/2023) 70 g 0 No current facility-administered medications for this visit. Vital Signs: Vitals BP 92/65 (BP Location: Right arm, Patient Position: Sitting) Pulse 79 Resp 14 Ht 157.5 cm (5' 2 ) Wt 131.5 kg (290 lb) BMI 53.04 kg/m?? Vitals: 09/07/23 1429 BP: 92/65 Pulse: 79 Resp: 14 Wt Readings from Last 3 Encounters: 09/07/23 131.5 kg (290 lb) 07/29/23 131.8 kg (290 lb 9.1 oz) 03/28/23 131.1 kg (289 lb) Body mass index is 53.04 kg/m??. Physical Exam: Physical Exam Labs: Lab Results Component Value Date INR 1.26 (H) 07/17/2023 INR 1.31 (H) 04/14/2019 Lab Results Component Value Date PT 14.4 (H) 07/17/2023 PT 14.9 (H) 04/14/2019 Lab Results Component Value Date TSH 1.45 07/17/2023 Lab Results Component Value Date BILIRUBINU Negative 03/10/2016 AST 16 07/21/2023 ALT 16 07/21/2023 ALKPHOS 113 07/21/2023 ALBUMIN 2.9 (L) 07/21/2023 Lab Results Component Value Date SODIUM 139 07/29/2023 POTASSIUM 3.3 07/29/2023 CHLORIDE 96 (L) 07/29/2023 CO2 38 (H) 07/29/2023 ANIONGAP 5 07/29/2023 GLUCOSEUR Negative 07/17/2023 No results found for: BNP Lab Results Component Value Date SODIUM 139 07/29/2023 SODIUM 140 07/28/2023 SODIUM 136 07/27/2023 POTASSIUM 3.3 07/29/2023 POTASSIUM 3.5 07/28/2023 POTASSIUM 3.5 07/27/2023 CHLORIDE 96 (L) 07/29/2023 CHLORIDE 98 07/28/2023 CHLORIDE 96 (L) 07/27/2023 CO2 38 (H) 07/29/2023 CO2 37 (H) 07/28/2023 CO2 37 (H) 07/27/2023 BUNSER 16 07/29/2023 BUNSER 16 07/28/2023 BUNSER 18 07/27/2023 CREATININE 0.78 07/29/2023 CREATININE 0.71 07/28/2023 CREATININE 0.72 07/27/2023 GFRNAA 79 07/29/2023 GFRNAA 88 07/28/2023 GFRNAA 87 07/27/2023 GLUCOSE 110 (H) 07/29/2023 CALCIUM 8.9 07/29/2023 CALCIUM 8.7 07/28/2023 CALCIUM 9.0 07/27/2023 ALBUMIN 2.9 (L) 07/21/2023 ALBUMIN 3.1 (L) 07/20/2023 ALBUMIN 3.0 (L) 07/19/2023 PHOS 2.5 07/29/2023 PHOS 2.9 07/28/2023 PHOS 2.3 07/27/2023 Lab Results Component Value Date SODIUM 139 07/29/2023 POTASSIUM 3.3 07/29/2023 CHLORIDE 96 (L) 07/29/2023 CO2 38 (H) 07/29/2023 ANIONGAP 5 07/29/2023 BUNSER 16 07/29/2023 CREATININE 0.78 07/29/2023 GLUCOSE 110 (H) 07/29/2023 CALCIUM 8.9 07/29/2023 BILITOT 0.5 07/21/2023 PROT 6.8 07/21/2023 ALBUMIN 2.9 (L) 07/21/2023 ALKPHOS 113 07/21/2023 ALT 16 07/21/2023 AST 16 07/21/2023 Lab Results Component Value Date WBC 10.5 (H) 07/29/2023 HGB 12.1 07/29/2023 HCT 37.0 07/29/2023 LABPLAT 231 07/29/2023 MPV 8.7 (L) 07/29/2023 RBC 3.79 (L) 07/29/2023 MCV 97.6 (H) 07/29/2023 MCH 31.9 07/29/2023 MCHC 32.7 07/29/2023 RDWCV 15.8 (H) 07/29/2023 RDWSD 52.1 (H) 07/29/2023 NRBCABS 0.02 (H) 07/29/2023 Lab Results Component Value Date CHOL 150 03/21/2023 TRIG 61 03/21/2023 HDL 76 03/21/2023 LDLCALC 62 03/21/2023 NONHDLCHOL 74 03/21/2023 CHOLHDL 2 03/21/2023 Testing: Diagnoses and Plan Diagnoses and all orders for this visit: Takotsubo cardiomyopathy (Primary) Assessment & Plan: We discussed cardiac issues from almost 2 [...] low for me to add anymore medications. Typical atrial flutter (CMS/HCC) (HCC) Assessment & Plan: Patient denies any palpitations, dizziness or syncope. Exam in the office revealed a regular and somewhat fast rhythm. EKG showed still showed atrial flutter at 104 beats per minute No bleeding issues with Eliquis low-dose. We discussed getting another cardioversion and patient is agreeable. Valvular heart disease Return in about 2 months (around 11/06/2023). 09/07/2023 3:37 PM Josefina Husain MD Cc:Tristan Watson MD R WATER ASSISTANT documented in this encounter Miscellaneous Notes * Assessment & Plan Note - Josefina Husain MD - 09/07/2023 2:56 PM UNDER WATER ASSISTANT Associated Problem(s): Takotsubo cardiomyopathy (Deleted) We discussed cardiac issues from almost 2 [...] low for me to add anymore medications. R WATER ASSISTANT * Assessment & Plan Note - Josefina Husain MD - 09/07/2023 2:54 PM UNDER WATER ASSISTANT Associated Problem(s): Typical atrial flutter (CMS/HCC) (HCC) (Deleted) Patient denies any palpitations, dizziness or syncope. Exam in the office revealed a regular and somewhat fast rhythm. EKG showed still showed atrial flutter at 104 beats per minute No bleeding issues with Eliquis low-dose. We discussed getting another cardioversion and patient is agreeable. R WATER ASSISTANT R WATER ASSISTANT * Assessment & Plan Note - Tristan Watson MD - 09/07/2023 2:45 PM UNDER WATER ASSISTANT Associated Problem(s): Takotsubo cardiomyopathy >>ASSESSMENT AND PLAN FOR TAKOTSUBO CARDIOMYOPATHY WRITTEN ON 09/07/2023 2:56 PM BY JOSEFINA HUSAIN MD We discussed cardiac issues from almost [...] low for me to add anymore medications. * Assessment & Plan Note - Tristan Watson MD - 09/07/2023 2:45 PM UNDER WATER ASSISTANT Associated Problem(s): Permanent atrial fibrillation (CMS/HCC) (HCC) >>ASSESSMENT AND PLAN FOR TYPICAL ATRIAL FLUTTER (CMS/HCC) (HCC) WRITTEN ON 09/07/2023 3:37 PM BY JOSEFINA HUSAIN MD Patient denies any palpitations, dizziness or syncope. Exam in the office revealed a regular and somewhat fast rhythm. EKG showed still showed atrial flutter at 104 beats per minute No bleeding issues with Eliquis low-dose. We discussed getting another cardioversion and patient is agreeable. documented in this encounter Plan of Treatment Not on file documented as of this encounter Visit Diagnoses Diagnosis Takotsubo cardiomyopathy- Primary Takotsubo syndrome Typical atrial flutter (CMS/HCC) (HCC) Valvular heart disease Endocarditis, valve unspecified, unspecified cause documented in this encounter Historical Medications * This list may reflect changes made after this encounter. Medication Sig Dispense Quantity Refills Last Filled Start D ate End Date acetaminophen 32 mg/mL oral liquid 024 added in this encounter Care Teams Tax Processor Relationship Specialty Start Date End Date Tristan Watson MD [address] [place] [address] PCP - General Family Medicine 03/15/22 documented as of this encounter
--- OUTSIDE RECORDS SUMMARY | 2024-08-13 05:21 | XMS_ITS | Encounter Summary ---
Author Organization [facility] Healthcare Address [address] [place] [address] Care Team Providers Care Antisqueak Worker Name Role Phone Tristan Watson MD Primary Care Provider [phone] Reason for Visit * Reason Onset Date Comments Medical Question/Miscellaneous 02/14/2024 Encounter Details Date Type Department Care Team (Late st Contact Info) Description 02/14/2024 Telephone Family [facility] [address] [address] Tristan Watson MD [address] [place] [address] Medical Question/Miscellaneous Social History Tobacco Use Types [...] staff should administer the PHQ-9) 0 02/01/2024 Personal Safety Answer Date Recorded Have you ever been in or are you currently in a harmful physical or emotional relationship or is someone making you feel afraid or unsafe? 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 She isgoing to try faxing to [facility] fax this time. * Telephone Encounter - Alba Villalpando - 02/14/2024 1:17 PM CDT Medical Question/Miscellaneous Caller???s Concern: called to see if the labs she faxed over on Tuesday were received ? Does message need to be routed? Yes-Action Needed documented in this encounter Plan of Treatment Not on file documented as of this encounter Visit Diagnoses Not on filedocumented in this encounter Care Teams Antisqueak Worker Relationship Specialty Start Date End Date [place] [address] PCP - General Family Medicine 03/15/22 documented as of this encounter
--- OUTSIDE RECORDS SUMMARY | 2024-08-13 05:21 | XMS_ITS | Encounter Summary ---
Author Organization [facility] Healthcare Address [address] [place] [address] Care Team Providers Care Financial Service Rep Name Role Phone Tristan Watson MD Primary Care Provider [phone] Reason for Visit * Reason Comments Follow-up Encounter Details Date Type Department Care Team (Late st Contact Info) Description 01/19/2024 1:45 PM CDT Office Visit [facility] [employer] [facility] at [address] [address] Josefina Husain MD [address] [place] [address] Takotsubo cardiomyopathy (Primary Dx); Typical atrial [...] points, staff should administer the PHQ-9) 0 11/30/2023 Personal Safety Answer Date Recorded Have you ever been in or are you currently in a harmful physical or emotional relationship or is someone making you feel afraid or unsafe? 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 Gender Identity Female 09/15/2022 2:42 PM MOLD YARD SUPERVISOR Sexual Orientation Straight 09/15/2022 2: 42 PM MOLD YARD SUPERVISOR documented as of this encounter Last Filed Vital Signs Vital Sign Reading Time Taken Comments Blood Pressure 101/59 01/19/2024 2:01 PM CDT Pulse 79 01/19/2024 2:01 PM CDT Temperature - - Respiratory Rate 14 01/19/2024 2:01 PM CDT Oxygen Saturation - - Inhaled Oxygen Concentration - - Weight 124.7 kg (275 lb) 01/19/2024 2:01 PM CDT Height 157.5 cm (5' 2 ) 01/19/2024 2:01 PM CDT Body Mass Index 50.3 01/19/2024 2:01 PM CDT documented in this encounter Progress Notes * Josefina Husain MD - 01/19/2024 1:45 PM CDT Cardiology note Reason for Office Visit: Follow-up on cardiomyopathy Chief Complaint Patient presents with Follow-up History of Present Illness: Lupis Juarez is a 78 y.o. female last seen about 4 months ago. She is pretty much wheelchair-bound in a very large wheelchair. No cardiac complaints. Review of Systems: Histories: Past Medical History: Diagnosis Date Anxiety Asthma Cataract 1999 COPD (chronic obstructive pulmonary disease) ([facility]) History of transfusion HX OTHER MEDICAL 01-DRIVE IN WAITER/WAITRESS HX OTHER MEDICAL -ORTHOPEDIST HX OTHER MEDICAL IGT Hypertension Moderate episode of recurrent major depressive disorder (HCC) 12/05/2017 Past Surgical History: Procedure Laterality Date CATARACT EXTRACTION 2001 RHINOPLASTY RHINOPLASTY Family History Problem Relation Age of Onset Dementia Mother Dementia; Hypertension Mother Hypertension; Depression Mother Depression; Kidney disease Mother Dementia Father Dementia; Hypertension Father Hypertension; Alzheimer's disease Father Stroke Father Hypertension Brother Hypertension; Learning disabilities Brother Social History Tobacco Use Smoking status: Never [...] Outpatient Medications Medication Sig Dispense Refill acetaminophen (TYLENOL) 325 mg tablet Take 2 tablets (650 mg total) by mouth every 6 (six) hours asneeded for pain albuterol HFA (ProAir HFA) 90 mcg/actuation inhaler Inhale 2 puffs every 4 (four) hours as needed for shortness of breath As needed for wheezing 3 each 3 amiodarone (PACERONE) 100 mg tablet Take 1 tablet (100 mg total) by mouth daily (Patient taking differently: Take 2 tablets (200 mg total) by mouth daily) 30 tablet 2 apixaban (ELIQUIS) 2.5 mg tablet Take 1 tablet (2.5 mg total) by mouth every 12 (twelve) hours 60 tablet 1 atorvastatin (LIPITOR) 10 mg tablet TAKE 1/2 [...] total) by mouth daily 30 tablet 1 miconazole 2 % powder Apply topically 2 (two) times a day 70 g 0 Phospha 250 Neutral 250 mg tablet sacubitriL-valsartan (ENTRESTO) 24-26 mg tablet Take 1 tablet by mouth 2 (two) times a day 60 tablet 0 spironolactone (ALDACTONE) 25 mg tablet Take 1 tablet (25 mg total) by mouth daily 30 tablet 1 topiramate (TOPAMAX) 25 mg tablet Take 1 tablet (25 mg total) by mouth 2 (two) times a day 180 tablet 4 No current facility-administered medications for this visit. Vital Signs: Vitals BP 101/59 (BP Location: Right arm, Patient Position: Sitting) Pulse 79 Resp 14 Ht 157.5 cm (5' 2 ) Wt 124.7 kg (275 lb) BMI 50.30 kg/m?? Vitals: 01/19/24 1401 BP: 101/59 Pulse: 79 Resp: 14 Wt Readings from Last 3 Encounters: 01/19/24 124.7 kg (275 lb) 11/30/23 131.1 kg (289 lb) 09/22/23 131.1 kg (289 lb) Body mass index is 50.3 kg/m??. Physical Exam: Physical Exam Labs: Lab Results Component Value Date INR 1.39 (H) 09/14/2023 INR 1.26 (H) 07/17/2023 INR 1.31 (H) 04/14/2019 Lab Results Component Value Date PT 15.9 (H) 09/14/2023 PT 14.4 (H) 07/17/2023 PT 14.9 (H) 04/14/2019 Lab Results Component Value Date TSH 1.45 07/17/2023 Lab Results Component Value Date BILIRUBINU Negative 03/10/2016 AST 16 07/21/2023 ALT 16 07/21/2023 ALKPHOS 113 07/21/2023 ALBUMIN 2.9 (L) 07/21/2023 Lab Results Component Value Date SODIUM 140 09/14/2023 POTASSIUM 4.4 09/14/2023 CHLORIDE 101 09/14/2023 CO2 30 09/14/2023 ANIONGAP 10 09/14/2023 GLUCOSEUR Negative 07/17/2023 No results found for: BNP Lab Results Component Value Date SODIUM 140 09/14/2023 SODIUM 139 07/29/2023 SODIUM 140 07/28/2023 POTASSIUM 4.4 09/14/2023 POTASSIUM 3.3 07/29/2023 POTASSIUM 3.5 07/28/2023 CHLORIDE 101 09/14/2023 CHLORIDE 96 (L) 07/29/2023 CHLORIDE 98 07/28/2023 CO2 30 09/14/2023 CO2 38 (H) 07/29/2023 CO2 37 (H) 07/28/2023 BUNSER 14 09/14/2023 BUNSER 16 07/29/2023 BUNSER 16 07/28/2023 CREATININE 0.81 09/14/2023 CREATININE 0.78 07/29/2023 CREATININE 0.71 07/28/2023 GFRNAA 75 09/14/2023 GFRNAA 79 07/29/2023 GFRNAA 88 07/28/2023 GLUCOSE 117 09/14/2023 CALCIUM 9.9 09/14/2023 CALCIUM 8.9 07/29/2023 CALCIUM 8.7 07/28/2023 ALBUMIN 2.9 (L) 07/21/2023 ALBUMIN 3.1 (L) 07/20/2023 ALBUMIN 3.0 (L) 07/19/2023 PHOS 2.5 07/29/2023 PHOS 2.9 07/28/2023 PHOS 2.3 07/27/2023 Lab Results Component Value Date SODIUM 140 09/14/2023 POTASSIUM 4.4 09/14/2023 CHLORIDE 101 09/14/2023 CO2 30 09/14/2023 ANIONGAP 10 09/14/2023 BUNSER 14 09/14/2023 CREATININE 0.81 09/14/2023 GLUCOSE 117 09/14/2023 CALCIUM 9.9 09/14/2023 BILITOT 0.5 07/21/2023 PROT 6.8 07/21/2023 ALBUMIN 2.9 (L) 07/21/2023 ALKPHOS 113 07/21/2023 ALT 16 07/21/2023 AST 16 07/21/2023 Lab Results Component Value Date WBC 7.4 09/14/2023 HGB 14.5 09/14/2023 HCT 44.1 09/14/2023 LABPLAT 257 09/14/2023 MPV 9.3 09/14/2023 RBC 4.40 09/14/2023 MCV 100.2 (H) 09/14/2023 MCH 33.0 09/14/2023 MCHC 32.9 09/14/2023 RDWCV 17.2 (H) 09/14/2023 RDWSD 64.2 (H) 09/14/2023 NRBCABS 0.00 09/14/2023 Lab Results Component Value Date CHOL 150 03/21/2023 TRIG 61 03/21/2023 HDL 76 03/21/2023 LDLCALC 62 03/21/2023 NONHDLCHOL 74 03/21/2023 CHOLHDL 2 03/21/2023 Testing: Diagnoses and Plan Diagnoses and all orders for this visit: Takotsubo cardiomyopathy (Primary) Assessment & Plan: Patient denies any shortness of breath or leg edema. We discussed last echo from 3 months ago showing borderline LV function. Since blood pressure is a bit on the low side, I will not increase the Coreg or Entresto at this time. No change in medical regimen here. Typical atrial flutter (CMS/HCC) (HCC) Assessment & Plan: Patient denies any palpitations, dizziness or syncope. Exam in the office revealed a regular rhythm. Patient needs to continue on amiodarone Eliquis as he has no significant bleeding issues. Again, no change in medical regimen here. Valvular heart disease Return in about 6 months (around 07/20/2024). 01/19/2024 2:29 PM Josefina Husain MD Cc:Tristan Watson MD documented in this encounter Miscellaneous Notes * Assessment & Plan Note - Josefina Husain MD - 01/19/2024 2:29 PM CDT Associated Problem(s): Typical atrial flutter (CMS/HCC) (HCC) (Deleted) Patient denies any palpitations, dizziness or syncope. Exam in the office revealed a regular rhythm. Patient needs to continue on amiodarone Eliquis as he has no significant bleeding issues. Again, no change in medical regimen here. * Assessment & Plan Note - Josefina Husain MD - 01/19/2024 2:28 PM CDT Associated Problem(s): Takotsubo cardiomyopathy (Deleted) Patient denies any shortness of breath or leg edema. We discussed last echo from 3 months ago showing borderline LV function. Since blood pressure is a bit on the low side, I will not increase the Coreg or Entresto at this time. No change in medical regimen here. * Assessment & Plan Note - Tristan Watson MD - 01/19/2024 1:45 PM CDT Associated Problem(s): Takotsubo cardiomyopathy >>ASSESSMENT AND PLAN FOR TAKOTSUBO CARDIOMYOPATHY WRITTEN ON 01/19/2024 2:28 PM BY JOSEFINA HUSAIN MD Patient denies any shortness of breath or leg edema. We discussed last echo from 3 months ago showing borderline LV function. Since blood pressure is a bit on the low side, I will not increase the Coreg or Entresto at this time. No change in medical regimen here. * Assessment & Plan Note - Tristan Watson MD - 01/19/2024 1:45 PM CDT Associated Problem(s): Permanent atrial fibrillation (CMS/HCC) (HCC) >>ASSESSMENT AND PLAN FOR TYPICAL ATRIAL FLUTTER (CMS/HCC) (HCC) WRITTEN ON 01/19/2024 2:29 PMBY JOSEFINA HUSAIN MD Patient denies any palpitations, dizziness or syncope. Exam in the office revealed a regular rhythm. Patient needs to continue on amiodarone Eliquis as he has no significant bleeding issues. Again, no change in medical regimen here. documented in this encounter Plan of Treatment Not on file documented as of this encounter Visit Diagnoses Diagnosis Takotsubo cardiomyopathy- Primary Takotsubo syndrome Typical atrial flutter (CMS/HCC) (HCC) Valvular heart disease Endocarditis, valve unspecified, unspecified cause documented in this encounter Care Teams Financial Service Rep Relationship Specialty Start Date End Date Tristan Watson MD [address] [place] [address] PCP - General Family Medicine 03/15/22 documented as of this encounter
--- OUTSIDE RECORDS SUMMARY | 2024-08-13 05:21 | XMS_ITS | Encounter Summary ---
Author Organization [facility] Healthcare Address [address] [place] [address] Care Team Providers Care Rent And Miscellaneous Remittance Clerk Name Role Phone Tristan Watson MD Primary Care Provider [phone] Reason for Referral * Cardiology (Routine) - Closed Specialty Diagnoses / Procedures Referred By Contac t Referred To Contact Diagnoses Takotsubo cardiomyopathy Procedures Transthoracic Echo (TTE) Complete W Doppler/CF Josefina Husain MD [address] [place] [address] [address] [place] [id number] Phone: tel: fax: [address] [phone] Referral ID Status Reason Start Date Expiration Date Visits Re quested Visits Authorized [id number] Closed 09/22/2023 10/21/2024 1 1 GER BEAUTY Reason for Visit * Reason Comments Hospital Follow Up Encounter Details Date Type Department Care Team (Late st Contact Info) Description 09/22/2023 1:30 PM MANAGER BEAUTY Office Visit [employer] Specialist at [address] [place] [phone] Josefina Husain MD [address] [place] [address] [address] [place] [id number] Takotsubo cardiomyopathy (Primary Dx); Typical atrial [...] points, staff should administer the PHQ-9) 0 09/21/2023 Personal Safety Answer Date Recorded Have you ever been in or are you currently in a harmful physical or emotional relationship or is someone making you feel afraid or unsafe? Denies 09/14/2023 Comments Unknown Sex and Gender Information Value Date Recorded Sex Assigned at Not on file Legal Sex Female 11:52 PM MANAGER BEAUTY Gender Identity Female 09/15/2022 2:42 PM MANAGER BEAUTY Sexual Orientation Straight 09/15/2022 2: 42 PM MANAGER BEAUTY documented as of this encounter Last Filed Vital Signs Vital Sign Reading Time Taken Comments Blood Pressure 103/61 09/22/2023 1:22 PM MANAGER BEAUTY Pulse 55 09/22/2023 1:22 PM MANAGER BEAUTY Temperature - - Respiratory Rate 13 09/22/2023 1:22 PM MANAGER BEAUTY Oxygen Saturation - - Inhaled Oxygen Concentration - - Weight 131.1 kg (289 lb) 09/22/2023 1:22 PM MANAGER BEAUTY Height 157.5 cm (5' 2 ) 09/22/2023 1:22 PM MANAGER BEAUTY Body Mass Index 52.86 09/22/2023 1:22 PM MANAGER BEAUTY documented in this encounter Progress Notes * Josefina Husain MD - 09/22/2023 1:30 PM CST Cardiology note Reason for Office Visit: Follow-up on cardiomyopathy Chief Complaint Patient presents with Hospital Follow Up History of Present Illness: Pebbles Juarez is a 78 y.o. female last seen last week for cardioversion. Doing okay since then. 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 Vital Signs: Vitals BP 103/61 (BP Location: Left arm, Patient Position: Sitting) Pulse 55 Resp 13 Ht 157.5 cm (5' 2 ) Wt 131.1 kg (289 lb) BMI 52.86 kg/m?? Vitals: 09/22/23 1322 BP: 103/61 Pulse: 55 Resp: 13 Wt Readings from Last 3 Encounters: 09/22/23 131.1 kg (289 lb) 09/21/23 131.1 kg (289 lb) 09/14/23 131.5 kg (289 lb 14.5 oz) Body mass index is 52.86 kg/m??. Physical Exam: Physical Exam Cardiovascular: Rate and Rhythm: Normal rate and regular rhythm. Pulses: Normal pulses. Heart sounds: Normal heart sounds. Pulmonary: Effort: Pulmonary effort is normal. Breath sounds: Normal breath sounds. Neurological: General: No focal deficit present. Mental Status: She is oriented to person, place, and time. Labs: Lab Results Component Value Date INR [...] visit: Takotsubo cardiomyopathy (Primary) Assessment & Plan: raised the issue of whether she needs a wearable defibrillator being that she is ???do not resuscitate?? . I confirmed that she is ???do not resuscitate?? , so we can stop the wearable defibrillator now. Cannot add anymore heart failure medications because of blood pressure is borderline at 103/61 today. Let us get another echocardiogram to see if everything has gotten back to normal. Orders: - Transthoracic Echo (TTE) Complete W Doppler/CF; Future Typical atrial flutter (CMS/HCC) (HCC) Assessment & Plan: Feeling okay since cardioversion. EKG shows junctional rhythm. No change in medical regimen here. Valvular heart disease Return in about 3 months (around 12/21/2023). 09/22/2023 2:07 PM Josefina Husain MD Cc:Tristan Watson MD GER BEAUTY documented in this encounter Miscellaneous Notes * Assessment & Plan Note - Josefina Husain MD - 09/22/2023 1:50 PM MANAGER BEAUTY Associated Problem(s): Takotsubo cardiomyopathy (Deleted) raised the issue of whether she needs a wearable defibrillator being that she is ???do not resuscitate?? . I confirmed that she is ???do not resuscitate?? , so we can stop the wearable defibrillator now. Cannot add anymore heart failure medications because of blood pressure is borderline at 103/61 today. Let us get another echocardiogram to see if everything has gotten back to normal. GER BEAUTY * Assessment & Plan Note - Josefina Husain MD - 09/22/2023 1:48 PM MANAGER BEAUTY Associated Problem(s): Typical atrial flutter (CMS/HCC) (HCC) (Deleted) Feeling okay since cardioversion. EKG shows junctional rhythm. No change in medical regimen here. GER BEAUTY GER BEAUTY * Assessment & Plan Note - Tristan Watson MD - 09/22/2023 1:30 PM MANAGER BEAUTY Associated Problem(s): Takotsubo cardiomyopathy >>ASSESSMENT AND PLAN FOR TAKOTSUBO CARDIOMYOPATHY WRITTEN ON 09/22/2023 1:50 PM BY JOSEFINA HUSAIN MD raised the issue of whether she needs a wearable defibrillator being that she is ???do not resuscitate?? . I confirmed that she is ???do not resuscitate?? , so we can stop the wearable defibrillator now. Cannot add anymore heart failure medications because of blood pressure is borderline at 103/61 today. Let us get another echocardiogram to see if everything has gotten back to normal. * Assessment & Plan Note - Tristan Watson MD - 09/22/2023 1:30 PM MANAGER BEAUTY Associated Problem(s): Permanent atrial fibrillation (CMS/HCC) (HCC) >>ASSESSMENT AND PLAN FOR TYPICAL ATRIAL FLUTTER (CMS/HCC) (HCC) WRITTEN ON 09/22/2023 2:07 PMBY JOSEFINA HUSAIN MD Feeling okay since cardioversion. EKG shows junctional rhythm. No change in medical regimen here. documented in this encounter Plan of Treatment Not on file documented as of this encounter Results * TRANSTHORACIC ECHO (TTE) COMPLETE W DOPPLER/CF WO CONTRAST (10/03/2023 2:20 PM MANAGER BEAUTY) Anatomical Region Laterality Modality Ultrasound 10/03/2023 2:02 PM MANAGER BEAUTY Narrative 10/03/2023 4:42 PM MANAGER BEAUTY [address] [address] Echocardiogram Report Patient Name: PEBBLES JUAREZ : 9 Study Date: 10/03/2023 2:02:11 PM Gender: F Tech: BRUSH TRIMMING MACHINE SETTER Location: Echo lab 2 Ref Provider: JOSEFINA HUSAIN ?Height(Cm): 160 BSA: 2.41 Weight(Kg): 131.1 Quality: Adequate Order Provider: JOSEFINA HUSAIN PROCEDURES: Echocardiographic Report: Transthoracic echocardiogram with complete 2D, M-Mode, and color Doppler examination. INDICATIONS: Cardiomyopathy. Measurements: 2D/M Mode ?Doppler Measurement ?Value ?Normal Range ? Measurement ? Value ?Normal Range EF Teich MM ?53.5 ? [ 54.0 - 74.0 ] percent ?DANIELLE Vmax ?2.29 ? cm2 LVIDd MM ? 5.41 ? [ 3.80 - 5.20 ] cm ? AV Mean PG ?8 ?mmHg LVIDs MM ? 3.90 ? [ 2.20 - 3.50 ] cm ? AV Peak Morales ? 1.47 ? [ 1.00 - 1.70 ] m/s LVPWd MM ? 1.30 ? [ 0.60 - 0.90 ] cm ? AV VTI ?28.78 ?cm IVSd MM ?1.13 ? [ 0.60 - 0.90 ] cm ? LVOT Diam ? 2.27 ? cm LA Dimension MM ?5.07 ? [ 2.70 - 3.80 ] cm ? LVOT Peak Morales ? 0.84 ? [ 0.70 - 1.10 ] m/s AoR Diam MM ?2.60 ? [ 2.70 - 3.70 ] cm ? LVOT VTI ?17.87 ?cm ACS MM ? 1.95 ? cm ? MV E Peak Morales ? 0.88 ? [ 0.60 - 1.30 ] m/s MV A Peak Morales ?0.20 ? [ 1.00 - 1.20 ] m/s MV Mean PG ? 2 ?mmHg MV PHT ? 54 ? [ 20 - 100 ] msec MVA ?4.10 MV Decel Time ?284 ?[ 104 - 258 ] msec PV Peak Morales ?0.84 ? [ 0.40 - 0.80 ] m/s TR Peak Morales ?2.85 ? [ 1.00 - 2.80 ] m/s TR Peak PG ? 33 ? mmHg RVSP ? 38.00 ?[ 10.00 - 36.00 ] mmHg E` ? 0.06 ? m/s E/E` ? 15.89 ?[ <= 10.00 ] PA Pressure ?38.00 ?[ 10.00 - 36.00 ] mmHg Measurement ?Value ?Normal Range ? Measurement ? Value ?Normal Range 2D/M Mode ?Doppler - FINDINGS: Atrial Septum: The atrial septum is not well visualized. Left Ventricle: Mild concentric left ventricular hypertrophy. Left ventricular systolic function at the lower limit of normal. Ejection fraction is visually estimated at 50 to 55 %. Left Atrium: There is moderate enlargement of left atrium. Right Ventricle: Normal right ventricular size. Normal right ventricular systolic function. Right Atrium: There is mild enlargement of right atrium. Aortic Valve: Normal structure of the aortic valve. Mitral Valve: Mild mitral annular calcification. Trivial regurgitation of the mitral valve. Pulmonic Valve: Pulmonic valve not well visualized. Trivial regurgitation in the pulmonic valve. Tricuspid Valve: Normal structure of the tricuspid valve. Trivial regurgitation in the tricuspid valve. Pericardium: There is an anterior echo free space consistent with epicardial fat pad. Aorta: Normal aortic root. IVC: The IVC is not well visualized. CONCLUSIONS: Mild concentric left ventricular hypertrophy. Left ventricular systolic function at the lower limit of normal. Ejection fraction is visually estimated at 50 to 55 %. There is moderate enlargement of left atrium. There is mild enlargement of right atrium. Mild mitral annular calcification. Trivial regurgitation of the mitral valve. Normal structure of the aortic valve. Normal structure of the tricuspid valve. Trivial regurgitation in the tricuspid valve. Technically difficult study with limited views. Electronically Signed By: Dr Josefina Husain 2023-10-03 16:41:43 MANAGER BEAUTY Procedure Note Josefina Husain MD - 10/03/[address] [place] [address] Echocardiogram Report Patient Name: PEBBLES JUAREZ : 1945 Study Date: 10/03/2023 2:02:11 PM Gender: F Tech: BRUSH TRIMMING MACHINE SETTER Location: Echo lab 2 Ref Provider: JOSEFINA HUSAIN Height(Cm): 160 BSA: 2.41 Weight(Kg): 131.1 Quality: Adequate Order Provider: JOSEFINA HUSAIN PROCEDURES: Echocardiographic Report: Transthoracic echocardiogram with complete 2D, M-Mode, and color Dopplerexamination. INDICATIONS: Cardiomyopathy. Measurements: 2D/M ModeDoppler Measurement Value Normal Range MeasurementValue Normal Range EF Teich MM 53.5 [ 54.0 - 74.0 ] percent DANIELLE Vmax2.29 cm2 LVIDd MM 5.41 [ 3.80 - 5.20 ] cm AV Mean PG8 mmHg LVIDs MM 3.90 [ 2.20 - 3.50 ] cm AV Peak Vel1.47 [ 1.00 - 1.70 ] m/s LVPWd MM 1.30 [ 0.60 - 0.90 ] cm AV VTI28.78 cm IVSd MM 1.13 [ 0.60 - 0.90 ] cm LVOT Diam2.27 cm LA Dimension MM 5.07 [ 2.70 - 3.80 ] cm LVOT PeakVel 0.84 [ 0.70 - 1.10 ] m/s AoR Diam MM 2.60 [ 2.70 - 3.70 ] cm LVOT VTI17.87 cm ACS MM 1.95 cm MV E PeakVel 0.88 [ 0.60 - 1.30 ] m/s MV A Peak Morales 0.20 [ 1.00 - 1.20 ] m/s MV Mean PG 2 mmHg MV PHT 54 [ 20 - 100 ] msec MVA 4.10 MV Decel Time 284 [ 104 - 258 ] msec PV Peak Morales 0.84 [ 0.40 - 0.80 ] m/s TR Peak Morales 2.85 [ 1.00 - 2.80 ] m/s TR Peak PG 33 mmHg RVSP 38.00 [ 10.00 - 36.00 ] mmHg E` 0.06 m/s E/E` 15.89 [ <= 10.00 ] PA Pressure 38.00 [ 10.00 - 36.00 ] mmHg Measurement Value Normal Range MeasurementValue Normal Range 2D/M ModeDoppler - FINDINGS: Atrial Septum: The atrial septum is not well visualized. Left Ventricle: Mild concentric left ventricular hypertrophy. Left ventricular systolicfunction at the lower limit of normal. Ejection fraction is visually estimated at 50 to 55%. Left Atrium: There is moderate enlargement of left atrium. Right Ventricle: Normal right ventricular size. Normal right ventricular systolicfunction. Right Atrium: There is mild enlargement of right atrium. Aortic Valve: Normal structure of the aortic valve. Mitral Valve: Mild mitral annular calcification. Trivial regurgitation of the mitralvalve. Pulmonic Valve: Pulmonic valve not well visualized. Trivial regurgitation in the pulmonicvalve. Tricuspid Valve: Normal structure of the tricuspid valve. Trivial regurgitation in thetricuspid valve. Pericardium: There is an anterior echo free space consistent with epicardial fat pad. Aorta: Normal aortic root. IVC: The IVC is not well visualized. CONCLUSIONS: Mild concentric left ventricular hypertrophy. Left ventricular systolicfunction at the lower limit of normal. Ejection fraction is visually estimated at 50 to 55%. There is moderate enlargement of left atrium. There is mild enlargement of right atrium. Mild mitral annular calcification. Trivial regurgitation of the mitralvalve. Normal structure of the aortic valve. Normal structure of the tricuspid valve. Trivial regurgitation in thetricuspid valve. Technically difficult study with limited views. Electronically Signed By: Dr Josefina Husain 2023-10-03 16:41:43 MANAGER BEAUTY us Josefina Husain MD CV ECHO PROCEDURES Final Resu lt documented in this encounter Visit Diagnoses Diagnosis Takotsubo cardiomyopathy- Primary Takotsubo syndrome Typical atrial flutter (CMS/HCC) (HCC) Valvular heart disease Endocarditis, valve unspecified, unspecified cause Takotsubo cardiomyopathy Takotsubo syndrome documented in this encounter Care Teams Rent And Miscellaneous Remittance Clerk Relationship Specialty Start Date End Date Tristan Watson MD [address] [place] [address] PCP - General Family Medicine 03/15/22 documented as of this encounter
--- OUTSIDE RECORDS SUMMARY | 2024-08-13 05:21 | XMS_ITS | Encounter Summary ---
Author Organization [facility] Healthcare Address [address] [place] [address] Care Team Providers Care Pluck Trimmer Name Role Phone Tristan Watson MD Primary Care Provider [phone] [phone] Reason for Visit * Reason Comments Preventative Care [employer] Medicare Physi ravin Encounter Details Date Type Department Care Team (Late st Contact Info) Description 11/30/2023 10:30 AM CDT Office Visit [facility] [address] [address] Tristan Watson MD [address] [place] [id number] Medicare annual wellness visit, subsequent (Primary Dx); Need for hepatitis B screening test; Encounter for hepatitis C screening test for low risk patient; Benign hypertension; Chronic stasis dermatitis; Takotsubo cardiomyopathy; Class 3 severe obesity due to excess calories with serious comorbidity and body mass index (BMI) of 50.0 to 59.9 in adult (HCC); Recurrent major depressive disorder, in partial remission (HCC); New onset atrial fibrillation (CMS/HCC) (HCC); Benign essential tremor; Mild persistent asthma without complication Social History Tobacco Use Types Packs/Day Years [...] on file Legal Sex Female 11:52 PM MARKETING AGENT Gender Identity Female 09/15/2022 2:42 PM MARKETING AGENT Sexual Orientation Straight 09/15/2022 2: 42 PM MARKETING AGENT documented as of this encounter Last Filed Vital Signs Vital Sign Reading Time Taken Comments Blood Pressure 114/72 11/30/2023 10:44 AM CDT Pulse 94 11/30/2023 10:44 AM CDT Temperature 36.6 ??C (97.8 ??F) 11/30/2023 10:44 AM C DT Respiratory Rate 18 11/30/2023 10:44 AM CDT Oxygen Saturation 97% 11/30/2023 10:44 AM CDT Inhaled Oxygen Concentration - - Weight 131.1 kg (289 lb) 11/30/2023 10:44 AM CDT Height 157.5 cm (5' 2 ) 11/30/2023 10:44 AM CDT Body Mass Index 52.86 11/30/2023 10:44 AM CDT documented in this encounter Ordered Prescriptions Prescription Sig Dispense Quantity Refills Last Filled Start Date End Date topiramate (TOPAMAX) 25 mg tabletIndications: Essential Tremor Take 1 tablet (25 mg total) by mouth 2 (two) times a day 180 tablet 4 11/30/2023 05/02/2024 documented in this encounter Progress Notes * Tristan Watson MD - 11/30/2023 10:30 AM CDT Images from the original note were not included. Lupis Juarez is a 78 y.o. year old White Non- female here an for Annual Wellness Visit. Medicare Health Risk Assessment Basic Information In general, would you say your health is: Fair Do you have an advance directive, such as a living will or durable power of criminal defense attorney?: Yes Over the last 2 weeks, how often have you been bothered by any of the following problems? Little Interest or Pleasure in Doing Things: Not at all Feeling Down, Depressed, or Hopeless: Not at all PHQ-2 Total Score (If total score is 3 or more points, staff should administer the PHQ-9): 0 In the past year, patient experienced: One or more falls in the last year: No Do you feel unsteady when standing or walking?: Yes Do you worry about falling?: Yes Safety Do you have a working smoke detector in your home?: Yes Does your home have throw rugs, poor lighting, or a slippery bath tub/shower?: No Do you always fasten your seatbelt when you are in a vehicle?: Yes What is your typical mode of transportation: Other (Medical Van) Physical Activity How many days a week do you usually exercise?: 4-5 days per week How intense is your typical exercise?: Light (like stretching or slow walking) Nutrition How would you rate your appetite?: Good How would you describe the condition of your mouth and teeth/dentures?: Fair On a typical day, how many servings of fruits and vegetables do you eat?: 3 On a typical day, how many servings of high fiber/whole-grain foods do you eat?: N/A On a typical day, how many servings of high fat/fried foods do you eat?: 0 Have you experienced any of the following problems currently or recently? Eating: No Grooming: (!) Yes Bathing: (!) Yes Walking: (!) Yes Using the toilet: (!) Yes Memory problems: (!) Yes Difficulty speaking: No Dressing: (!) Yes Balance: (!) Yes Pain: (!) Yes Sexual Health: No Fatigue: No Depression: No Life Satisfaction: No Stress: (!) Yes Anger: No Loneliness or Social Isolation: No Suicide: No Have you experienced any of the following problems currently or recently? Laundry and/or housekeeping: No Handling money: No Shopping: (!) Yes (pt has assistance) Using the Phone: No Food preparation: (food is prepared by senior living) Transportation: No Taking and/or getting your own medications: (senior living prepares medications) Do you use prescription drugs that are not prescribed for you?: No Based on my observation of the patient, review of Health Risk Assessment (HRA) and other records, this is my assessment and recommendation regarding fall risk, hearing impairment, home safety, ADLs, or any other issues identified in the HRA: Dressing / Grooming / Bathing / Walking / Using Toliet -unable to perform many takss due to deconditioning and weight; continue to encourage activity as tolerated Balance: -difficulty with turing to left; continue to work with PT Pain: -improving Memory Problems -difficulty with concentration Stress: -multiple health concerns in past 6 months; working on recoviering to prior function. Shopping; uses assistances HTN: -blood pressure well controlled Stasis Dermatitis: Chornic Pain: -has inder having improvements in pain management Asthma: -uses home oxygen for relief when needed MDD: -improved, focuses on thinking through concerns Urinary Incotninence: -uses protective garments - Obesity: SIENA: -last H&H at goal, mildly increased MCV Dyslipidemia: -LDL at goal DEXA: unable to perform, did not have hydraulic table to help position patient appropriately -concerns regarding accessibility for patients with disability -accomodations for wheelchair bound patients Urology: unable to perform testing due to lack of equipment to position patient HF 2/2 HTN heart disease: -normal LVEF, mild hypertrophy; improved from 07/20/23 Hypothyroidism Tremor: Atrial Fibrillation: -enlarged left atrium; -s/p cardioversion Cardiomyopathy: -stable, improved Tremor: -has been worsening for patient; had difficulty with medications, could not breath Engaged with physical therapy Problem List, Past Medical and Surgical History: Patient Active Problem List Diagnosis Benign hypertension Chronic stasis dermatitis IGT (impaired glucose tolerance) Chronic pain syndrome PE (physical exam), annual Vitamin D deficiency Mild persistent asthma without complication Recurrent major depressive disorder, in partial remission (HCC) Class 3 severe obesity due to excess calories with serious comorbidity and body mass index (BMI) of50.0 to 59.9 in adult (HCC) Iron deficiency anemia due to chronic blood loss Pure hypercholesterolemia B12 deficiency Hypertensive heart disease with congestive heart failure (HCC) At high risk for falls per Rory fall risk assessment scale Acquired hypothyroidism Benign essential tremor Vomiting and diarrhea NSTEMI (non-ST elevated myocardial infarction) (CMS/HCC) ([facility]) Takotsubo cardiomyopathy Mitral regurgitation New onset atrial fibrillation (CMS/HCC) (HCC) Mild protein-calorie malnutrition (CMS/HCC) (HCC) Takotsubo cardiomyopathy Typical atrial flutter (CMS/HCC) (HCC) Valvular heart disease Past Medical History: Diagnosis Date Anxiety Asthma Cataract 1999 COPD (chronic obstructive pulmonary disease) ([facility]) History of transfusion HX OTHER MEDICAL 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 HX OTHER MEDICAL -ORTHOPEDIST HX OTHER MEDICAL IGT Hypertension Moderate episode of recurrent major depressive disorder ([facility]) 12/05/2017 Past Surgical History: Procedure Laterality Date [...] comments) Reaction: swollen mouth, Medications: Current Outpatient Medications: acetaminophen (TYLENOL) 325 mg tablet, Take 2 tablets (650 mg total) by mouth every 6 (six) hours as needed for pain, Disp: , Rfl: albuterol HFA (ProAir HFA) 90 mcg/actuation inhaler, Inhale 2 puffs every 4 (four) hours as needed for shortness of breath As needed for wheezing, Disp: 3 each, Rfl: 3 amiodarone (PACERONE) 100 mg tablet, Take 1 tablet (100 mg total) by mouth daily, Disp: 30 tablet, Rfl: 2 apixaban (ELIQUIS) 2.5 mg tablet, Take 1 tablet (2.5 mg total) by mouth every 12 (twelve) hours, Disp: 60 tablet, Rfl: 1 atorvastatin (LIPITOR) 10 mg tablet, TAKE 1/2 TABLET BY MOUTH EVERY DAY, Disp: 45 tablet, Rfl: 3 buPROPion SR (ZYBAN) 150 mg 12 hr tablet, Take 1 tablet (150 mg total) by mouth 2 (two) times a day, Disp: 180 tablet, Rfl: 3 carvediloL (COREG) 3.125 mg tablet, Take 1 tablet (3.125 mg total) by mouth 2 (two) times a day with meals, Disp: 60 tablet, Rfl: 1 famotidine (PEPCID) 20 mg tablet, Take 1 tablet (20 mg total) by mouth daily, Disp: 30 tablet, Rfl:1 FLUoxetine (PROzac) 40 mg capsule, Take 1 capsule (40 mg total) by mouth daily, Disp: 30 capsule, Rfl: 1 fluticasone propion-salmeteroL (Advair Diskus) 250-50 mcg/dose diskus inhaler, Inhale 1 puff 2 (two) times a day Rinse mouth with water after use to reduce aftertaste and incidence of candidiasis. Donot swallow., Disp: 3 each, Rfl: 3 furosemide (LASIX) 40 mg tablet, Take 1 tablet (40 mg total) by mouth daily, Disp: 30 tablet, Rfl: 1 miconazole 2 % powder, Apply topically 2 (two) times a day, Disp: 70 g, Rfl: 0 Phospha 250 Neutral 250 mg tablet, , Disp: , Rfl: sacubitriL-valsartan (ENTRESTO) 24-26 mg tablet, Take 1 tablet by mouth 2 (two) times a day, Disp: 60 tablet, Rfl: 0 spironolactone (ALDACTONE) 25 mg tablet, Take 1 tablet (25 mg total) by mouth daily, Disp: 30 tablet, Rfl: 1 topiramate (TOPAMAX) 25 mg tablet, Take 1 tablet (25 mg total) by mouth 2 (two) times a day, Disp: 180 tablet, Rfl: 4 Depression Screen: PHQ Screening Over the past 2 weeks, how often have you been bothered by any of the following problems? Little Interest or Pleasure in Doing Things: Not at all Feeling Down, Depressed, or Hopeless: Not at all PHQ-2 Total Score (If total score is 3 or more points, staff should administer the PHQ-9): 0 Vitals: Vitals BP 114/72 (BP Location: Right arm, Patient Position: Sitting) Pulse 94 Temp 36.6 ??C (97.8 ??F) (Oral) Resp 18 Ht 157.5 cm (5' 2 ) Wt 131.1 kg (289 lb) SpO2 97% BMI 52.86 kg/m?? Body mass index is 52.86 kg/m??. Exam: Physical Exam Vitals reviewed. Constitutional: Appearance: Normal appearance. HENT: Head: Normocephalic and atraumatic. Cardiovascular: Rate and Rhythm: Normal rate and regular rhythm. Pulses: Normal pulses. Heart sounds: Normal heart sounds. Pulmonary: Effort: Pulmonary effort is normal. Breath sounds: No wheezing, rhonchi or rales. Abdominal: General: Abdomen is flat. Palpations: Abdomen is soft. Musculoskeletal: General: No swelling or signs of injury. Normal range of motion. Skin: General: Skin is warm and dry. Neurological: General: No focal deficit present. Mental Status: She is alert and oriented to person, place, and time. Psychiatric: Mood and Affect: Mood normal. Behavior: Behavior normal. Thought Content: Thought content normal. Care Team Providers: Patient Care Team: Tristan Watson MD as PCP - General (Family Medicine) Primary Pharmacy/DME suppliers: [id number] [place], [place] - [address] AT [address] [facility] [id number] I reviewed the patient???s home and community safety, including driving, and made the following recommendations none. Detection of Cognitive Impairment: The patient does have cognitive impairment based on direct observation, discussion with patient or family, or review of medical records. Health Maintenance: Health Maintenance Topics with due status: Overdue Topic Date Due Hepatitis C Screening Never done Varicella Vaccines Never done Hepatitis B Screening Never done Zoster Vaccine Never done Osteoporosis Screening-Bone Density Scan 01/23/2014 Covid-19 Vaccine 04/01/2023 Well Visit 65+ 09/20/2023 Health Maintenance Topics with due status: Due Soon Topic Date Due DTaP/Tdap/Td Vaccine 01/01/2024 Health Maintenance Topics with due status: Not Due Topic Last Completion Date Depression Screening 11/30/2023 Fall Risk Assessment 12/14/2023 Health Maintenance Topics with due status: Completed Topic Last Completion Date Pneumococcal vaccine 65+ 05/20/2020 Influenza Vaccine 07/29/2023 Health Maintenance Topics with due status: Discontinued Topic Date Due Colorectal Cancer Screening Discontinued Breast Cancer Screening-Mammogram Discontinued Counseling and Referral of Preventative Services: Lifestyle Recommendations Increase Physical Activity, Increase Social Engagement, Reduce Weight, and Improve Diet Advanced Directive Durable Power of Wearing Apparel Presser: Yes Living Will: Yes Assessment and Plan: Diagnoses and all orders for this visit: Need for hepatitis B screening test (Primary) Encounter for hepatitis C screening test for low risk patient Other orders - topiramate (TOPAMAX) 25 mg tablet; Take 1 tablet (25 mg total) by mouth 2 (two) times a day Patient here for annual Medicare wellness visit and for review of complete medical problem list. All the elements of the plan were completed as outlined by CMS. A copy of the prevention plan was given to the patient. I reviewed Medicare Wellness Questionnaire (other physicians involved in care, depression screen, advanced directives), cognitive/memory, and functional assessment. I reviewed and updated the complete problem list, medication list, family history, and immunization records with the patient. I provided preventive counseling and early detection interventions to the patient through health maintenance update and summary of today's office visit. Tristan Watson MD documented in this encounter Miscellaneous Notes * Assessment & Plan Note - Tristan Watson MD - 12/14/2023 1:45 PM CDT Associated Problem(s): Mild persistent asthma without complication Stable, generally well controlled, uses home oxygen for relief when * Assessment & Plan Note - Tristan Watson MD - 12/14/2023 1:45 PM CDT Associated Problem(s): Benign essential tremor Not well controlled, worsening; was not able to tolerate prior medications due to dyspnea Will start topiramate 25 mg b.i.d. * Assessment & Plan Note - Tristan Watson MD - 12/14/2023 1:44 PM CDT Associated Problem(s): Permanent atrial fibrillation (CMS/HCC) (HCC) Stable, status post cardioversion Continue carvedilol 3.125 mg b.i.d., amiodarone 100 mg daily, Eliquis 2.5 mg b.i.d. * Assessment & Plan Note - Tristan Watson MD - 12/14/2023 1:44 PM CDT Associated Problem(s): Recurrent major depressive disorder, in partial remission (HCC) Stable, improving; patient reports acute depression secondary to significant health risk; now improving, focuses on thinking through concerns Continue bupropion 150 mg b.i.d., fluoxetine 40 mg daily * Assessment & Plan Note - Tristan Watson MD - 12/14/2023 1:43 PM CDT Associated Problem(s): Class 3 severe obesity due to excess calories with serious comorbidity and body mass index (BMI) of 40.0 to 44.9 in adult ([facility]) Weight is stable from prior; patient is unable to exercise due to health risk Encouraged continued dietary changes to limit caloric intake Exercises tolerate, including chair exercises * Assessment & Plan Note - Tristan Watson MD - 12/14/2023 1:43 PM CDT Associated Problem(s): Takotsubo cardiomyopathy Stable, improving; normal LVEF, mild hypertrophy; significantly improved from prior imaging for months prior Will continue to monitor; continue current medications, continue spironolactone 25 mg daily, Entresto 1 tablet b.i.d., carvedilol 3.125 mg b.i.d. * Assessment & Plan Note - Tristan Watson MD - 12/14/2023 1:42 PM CDT Associated Problem(s): Chronic stasis dermatitis Stable, no evidence of infection; will continue to work to reduce peripheral edema in order to reduce inflammation Continue furosemide 40 mg daily * Assessment & Plan Note - Tristan Watson MD - 12/14/2023 1:42 PM CDT Associated Problem(s): Benign hypertension Stable, well controlled, blood pressure goal Continue carvedilol 3.125 mg b.i.d., Entresto 1 tablet b.i.d., spironolactone 25 mg daily documented in this encounter Plan of Treatment Not on file documented as of this encounter Visit Diagnoses Diagnosis Medicare annual wellness visit, subsequent- Primary Need for hepatitis B screening test Encounter for hepatitis C screening test for low risk patient Benign hypertension Essential hypertension, benign Chronic stasis dermatitis Takotsubo cardiomyopathy Takotsubo syndrome Class 3 severe obesity due to excess calories with serious comorbidity and body mass index (BMI) of 50.0 to 59.9 in adult (HCC) Recurrent major depressive disorder, in partial remission (HCC) New onset atrial fibrillation (CMS/HCC) (HCC) Atrial fibrillation Benign essential tremor Essential and other specified forms of tremor Mild persistent asthma without complication documented in this encounter Discontinued Medications Medication Sig Discontinue Reason Start Date End Da te acetaminophen 32 mg/mL oral liquid 11/30/2023 buPROPion SR (WELLBUTRIN SR) 150 mg 12 hr tablet 08/28/2023 11/30/2023 documented as of this encounter Historical Medications * This list may reflect changes made after this encounter. acetaminophen (TYLENOL) 325 mg tablet Take 2 tablets (650 mg total) by mouth every 6 (six) hours as needed for pain added in this encounter Care Teams Pluck Trimmer Relationship Specialty Start Date End Date [place] [address] PCP - General Family Medicine 03/15/22 documented as of this encounter
--- OUTSIDE RECORDS SUMMARY | 2024-08-13 05:21 | XMS_ITS | Encounter Summary ---
Author Organization [facility] Healthcare Address [address] [place] [address] Care Team Providers Care Prepress Manager Name Role Phone Tristan Watson MD Primary Care Provider [phone] Encounter Details Date Type Department Care Team (Latest Contact Info) Description 07/29/2023 5:54 PM ADOLESCENT COUNSELOR - 07/29/2023 11:59 PM ADOLESCENT COUNSELOR Hospital Encounter [facility] Emergency, Room R Discharge Disposition: Discharge to home or self care Social History Tobacco Use Types Packs/Day Years Used Date Smoking Tobacco: Never Smokeless Tobacco: Never Alcohol Use Standard Drinks/Week Comments Not Currently [...] on file Legal Sex Female 11:52 PM ADOLESCENT COUNSELOR Gender Identity Female 09/15/2022 2:42 PM ADOLESCENT COUNSELOR Sexual Orientation Straight 09/15/2022 2: 42 PM ADOLESCENT COUNSELOR documented as of this encounter Medications at Time of Discharge albuterol HFA (ProAir HFA) 90 mcg/actuation inhaler Inhale 2 puffs every 4 (four) hours as needed for shortness of breath As needed for wheezing 3 each 3 03/28/2023 atorvastatin (LIPITOR) 10 mg tablet TAKE 1/2 TABLET BY MOUTH EVERY DAY 45 tablet 3 03/28/2023 fluticasone propion-salmeteroL (Advair Diskus) 250-50 mcg/dose diskus inhaler Inhale 1 puff 2 (two) times a day Rinse mouth with water after use to reduce aftertaste and incidence of candidiasis. Do not swallow. 3 each 3 03/28/2023 furosemide (LASIX) 40 mg tablet Take 1 tablet (40 mg total) by mouth daily 30 tablet 1 07/30/2023 miconazole 2 % powder Apply topically 2 (two) times a day 70 g 07/29/2023 potassium, sodium phosphates (PHOS-NAK) 280-160-250 mg powder in packet Take 1 packet by mouth 3 (three) times a day before meals for 1 dose 1 packet 07/29/2023 3 amiodarone (PACERONE) 200 mg tablet Take 1 tablet (200 mg total) by mouth 2 (two) times a day for 8 doses 8 tablet 07/29/2023 4 amiodarone (PACERONE) 200 mg tablet Take 1 tablet (200 mg total) by mouth daily 30 tablet 1 08/02/2023 4 apixaban (ELIQUIS) 2.5 mg tabletIndications: VTE Prophylaxis,atrial fibrillation Take 1 tablet (2.5 mg total) by mouth every 12 (twelve) hours 60 tablet 1 07/29/2023 4 buPROPion SR (ZYBAN) 150 mg 12 hr tablet Take 1 tablet (150 mg total) by mouth 2 (two) times a day 180 tablet 3 03/28/2023 4 carvediloL (COREG) 3.125 mg tablet Take 1 tablet (3.125 mg total) by mouth 2 (two) times a day with meals 60 tablet 1 07/29/2023 4 famotidine (PEPCID) 20 mg tablet Take 1 tablet (20 mg total) by mouth daily 30 tablet 1 07/30/2023 4 FLUoxetine (PROzac) 40 mg capsuleIndications :Anxiety with Depression,Fibromy algia Take 1 capsule (40 mg total) by mouth daily 30 capsule 1 07/30/2023 4 sacubitriL-valsart an (ENTRESTO) 24-26 mg tabletIndications: chronic heart failure Take 1 tablet by mouth 2 (two) times a day 60 tablet 07/29/2023 4 spironolactone (ALDACTONE) 25 mg tablet Take 1 tablet (25 mg total) by mouth daily 30 tablet 1 07/30/2023 4 documented as of this encounter Discharge Disposition Disposition Code Departure Means Destination Discharge to home or self care documented in this encounter Plan of Treatment Not on file documented as of this encounter Visit Diagnoses Not on filedocumented in this encounter Care Teams Prepress Manager Relationship Specialty Start Date End Date Tristan [place] [address] PCP - General Family Medicine 03/15/22 documented as of this encounter
--- OUTSIDE RECORDS SUMMARY | 2024-08-13 05:21 | XMS_ITS | Encounter Summary ---
Author Organization [facility] Healthcare Address [address] [place] [address] Care Team Providers Care Insurance Rater Name Role Phone Tristan Watson MD Primary Care Provider [phone] Encounter Details Date Type Department Care Team (Late st Contact Info) Description 08/17/2023 Telephone [place] [employer] Distribution Engineer at [address] [address] Aileen Burns MA Social History Tobacco Use Types Packs/Day Years [...] on file Legal Sex Female 11:52 PM CERTIFIED FIRST ASSISTANT Gender Identity Female 09/15/2022 2:42 PM CERTIFIED FIRST ASSISTANT Sexual Orientation Straight 09/15/2022 2: 42 PM CERTIFIED FIRST ASSISTANT documented as of this encounter Miscellaneous Notes * Telephone Encounter - Aileen Burns MA - 08/17/2023 12:11 PM CST The transportation where Mrs Juarez lives was unable to bring her on Saturday 08/19. I put her in on Wednesday 08/23 @ 1:45 after 3 wound checks. IFIED FIRST ASSISTANT documented in this encounter Plan of Treatment Not on file documented as of this encounter Visit Diagnoses Not on filedocumented in this encounter Care Teams Insurance Rater Relationship Specialty Start Date End Date [place]istan [place] [address] PCP - General Family Medicine 03/15/22 documented as of this encounter
--- OUTSIDE RECORDS SUMMARY | 2024-08-13 05:21 | XMS_ITS | Encounter Summary ---
Author Organization [facility] Healthcare Address [address] [place] [address] Care Team Providers Care Business Affairs Manager Name Role Phone Tristan Watson MD Primary Care Provider [phone] Encounter Details Date Type Department Care Team (Late st Contact Info) Description 10/10/2023 Telephone [place] Sample Preparation Supervisor at [address] [address] Aileen Burns MA Social History [...] on file Legal Sex Female 11:52 PM PAPERHANGER ASSISTANT Gender Identity Female 09/15/2022 2:42 PM PAPERHANGER ASSISTANT Sexual Orientation Straight 09/15/2022 2: 42 PM PAPERHANGER ASSISTANT documented as of this encounter Miscellaneous Notes * Telephone Encounter - Aileen Burns MA - 10/10/2023 11:03 AM CDT Relayed message to patient's husbsnd. * Telephone Encounter - Aileen Burns MA - 10/10/2023 11:03 AM CDT ----- Message from Roly Husain MD sent at 10/08/2023 10:43 AM PAPERHANGER ASSISTANT ----- Please tell patient that LV function has improved compared to the echoes. from July 2023. Heart function is now borderline, whereas it was moderate to severely diminished late last year. So, continue on same medical regimen. documented in this encounter Plan of Treatment Not on file documented as of this encounter Visit Diagnoses Not on filedocumented in this encounter Care Teams Business Affairs Manager Relationship Specialty Start Date End [place] [address] PCP - General Family Medicine 03/15/22 documented as of this encounter
--- OUTSIDE RECORDS SUMMARY | 2024-08-13 05:21 | XMS_ITS | Encounter Summary ---
Author Organization [facility] Address [address] [place] [address] Care Team Providers Care Safety Teacher Name Role Phone Tristan Watson MD Primary Care Provider [phone] Encounter Details Date Type Department Care Team (Late st Contact Info) Description 09/22/2023 Orders Only [employer] [facility] at [address] [address] Aileen Burns MA Atrial fibrillation, unspecified type (HCC) (Primary Dx) Social History Tobacco Use Types Packs/Day Years [...] on file Legal Sex Female 11:52 PM STUFFER Gender Identity Female 09/15/2022 2:42 PM STUFFER Sexual Orientation Straight 09/15/2022 2: 42 PM STUFFER documented as of this encounter Progress Notes * Aileen Burns MA - 09/22/2023 1:50 PM CST EKG FER documented in this encounter Plan of Treatment Not on file documented as of this encounter Procedures Procedure Name Priority Date/Time Associated Diagnosis Comments ECG 12-LEAD Routine 09/22/2023 Atrial fibrillation, unspecified type (HCC) documented in this encounter Results * ECG 12 lead (09/22/2023) Roly Husain MD ECG ORDERABLES Final Result documented in this encounter Visit Diagnoses Diagnosis Atrial fibrillation, unspecified type (HCC)- Primary documented in this encounter Care Teams Safety Teacher Relationship Specialty Start Date End Date Tristan Watson [place] [address] PCP - General Family Medicine 03/15/22 documented as of this encounter
--- OUTSIDE RECORDS SUMMARY | 2024-08-13 05:21 | XMS_ITS | Encounter Summary ---
Author Organization [facility] Address [address] [place] [address] Care Team Providers Care Binding Cutter Synthetic Cloth Name Role Phone Tristan Watson MD Primary Care Provider [phone] Reason for Visit * Auth/Cert (Routine) Specialty Diagnoses / Procedures Referred By Contac t Referred To Contact Diagnoses Typical atrial flutter (CMS/HCC) (HCC) Typical atrial flutter (CMS/HCC) (HCC) [I48.3] Procedures CARDIOVERSION [id number] Referral ID Status Reason Start Date Expiration Date Visits Re quested Visits Authorized [id number] 1 1 Encounter Details Date Type Department Care Team (Late st Contact Info) Description 09/14/2023 8:50 AM GEODETIC ADVISOR Lab [address] [address] Social History Tobacco Use Types Packs/Day Years [...] 0 09/20/2022 Personal Safety Answer Date Recorded Have you ever been in or are you currently in a harmful physical or emotional relationship or is someone making you feel afraid or unsafe? Denies 09/14/2023 Comments Unknown Sex and Gender Information Value Date Recorded Sex Assigned at Not on file Legal Sex Female 11:52 PM GEODETIC ADVISOR Gender Identity Female 09/15/2022 2:42 PM GEODETIC ADVISOR Sexual Orientation Straight 09/15/2022 2: 42 PM GEODETIC ADVISOR documented as of this encounter Plan of Treatment Not on file documented as of this encounter Visit Diagnoses Not on filedocumented in this encounter Care Teams Binding Cutter Synthetic Cloth Relationship Specialty Start Date End [place] [address] PCP - General Family Medicine 03/15/22 documented as of this encounter
--- OUTSIDE RECORDS SUMMARY | 2024-08-13 05:21 | XMS_ITS | Encounter Summary ---
Author Organization [facility] Address [address] [place] [address] Care Team Providers Care Water Purification Chemist Name Role Phone Tristan Watson MD Primary Care Provider [phone] Ana Lima RN Unavailable [phone] Encounter Details Date Type Department Care Team (Late st Contact Info) Description 09/13/2023 Orders Only [facility] Cardiac Catheterization [address] [place] [address] Roly Husain MD [address] [place] [address] Social History Tobacco Use Types Packs/Day Years [...] on file Legal Sex Female 11:52 PM COMMERCIAL MAKEUP ARTIST Gender Identity Female 09/15/2022 2:42 PM COMMERCIAL MAKEUP ARTIST Sexual Orientation Straight 09/15/2022 2: 42 PM COMMERCIAL MAKEUP ARTIST documented as of this encounter Plan of Treatment Not on file documented as of this encounter Procedures Procedure Name Priority Date/Time Associated Diagnosis Comments ECG 12-LEAD STAT 09/14/2023 9:38 AM COMMERCIAL MAKEUP ARTIST documented in this encounter Results * ECG 12 lead (09/14/2023 9:38 AM COMMERCIAL MAKEUP ARTIST) 09/14/2023 9:38 AM COMMERCIAL MAKEUP ARTIST Narrative [facility] - 09/14/2023 10:30 AM COMMERCIAL MAKEUP ARTIST Vent Rate: 102 bpm RR Interval: 587 msec CO Interval: 163 msec QRS Duration: 120 msec QT Interval: 286 msec QTC Interval: 345 msec P-R-T [place]: 262 - 16 - 191 degrees IMPRESSION: Atrial flutter MODERATE INTRAVENTRICULAR CONDUCTION DELAY ??[110+ ms QRS DURATION] ST DEVIATION AND MODERATE T-WAVE ABNORMALITY, CONSIDER ANTEROLATERAL ISCHEMIA ??[-0.1+ mV T-WAVE IN V3-V6] ST DEVIATION AND MODERATE T-WAVE ABNORMALITY, CONSIDER INFERIOR ISCHEMIA ??[- 0.1+ mV T-WAVE IN II/aVF] ABNORMAL ECG Compared to prior EKG, heart rate has increased Electronically Signed By: John Dominguez MD Roly Husain MD ECG ORDERABLES Final Result [facility] documented in this encounter Visit Diagnoses Not on filedocumented in this encounter Care Teams Water Purification Chemist Relationship Specialty Start Date End Date Tr[place] [address] PCP - General Family Medicine 03/15/22 Ana Lima RN [address] [place] [address] DR RENEE [address] [place] [id number] [employer] 03/30/24 04/17/24 documented as of this encounter
--- OUTSIDE RECORDS SUMMARY | 2024-08-13 05:21 | XMS_ITS | Encounter Summary ---
Author Organization [facility] Healthcare Address [address] [place] [address] Care Team Providers Care Burner Shaft Name Role Phone Tristan Watson MD Primary Care Provider [phone] Reason for Visit * Auth/Cert (Routine) Specialty Diagnoses / Procedures Referred By Contac t Referred To Contact Diagnoses Typical atrial flutter (CMS/HCC) (HCC) Typical atrial flutter (CMS/HCC) (HCC) [I48.3] Procedures CARDIOVERSION [id number] Referral ID Status Reason Start Date Expiration Date Visits Re quested Visits Authorized [id number] 1 1 Encounter Details Date Type Department Care Team (Late st Contact Info) Description 09/14/2023 10:00 AM MANAGER MENTAL HEALTH - 09/14/2023 11:05 AM MANAGER MENTAL HEALTH Surgery [facility] Cardiac Catheterization [address] [place] [address] Roly Husain MD [address] [place] [id number] CARDIOVERSION [id number] Surgery Details Date/Time Status Location OR Service Patient Class Case Class Case Type Trauma Case? 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 02 Cardiovascular Outpatient Elective Panel 1 Procedure LRB Anes Op Region Wound Class Comments CARDIOVERSION 42919 N/A Conscious Sedation Surgeon Surgeon Role Service Panel Roly Husain MD Primary Cardiovascular 1 documented in this encounter Social History Tobacco Use Types Packs/Day Years [...] file Legal Sex Female 11:52 PM MANAGER MENTAL HEALTH Gender Identity Female 09/15/2022 2:42 PM MANAGER MENTAL HEALTH Sexual Orientation Straight 09/15/2022 2: 42 PM MANAGER MENTAL HEALTH documented as of this encounter Last Filed Vital Signs Vital Sign Reading Time Taken Comments Blood Pressure 128/66 09/14/2023 10:55 AM MANAGER MENTAL HEALTH Pulse 52 09/14/2023 10:55 AM MANAGER MENTAL HEALTH Temperature 36.9 ??C (98.5 ??F) 09/14/2023 9:56 AM CS T Respiratory Rate 18 09/14/2023 10:5 5 AM MANAGER MENTAL HEALTH Oxygen Saturation 96% 09/14/2023 10: 55 AM MANAGER MENTAL HEALTH Inhaled Oxygen Concentration - - Weight 131.5 kg (289 lb 14.5 oz) 09/14/2023 9:56 AM MANAGER MENTAL HEALTH Height 157.5 cm (5' 2 ) 09/14/2023 9:56 AM MANAGER MENTAL HEALTH Body Mass Index 53.02 09/14/2023 9:56 AM MANAGER MENTAL HEALTH documented in this encounter Discharge Instructions * Discharge Instructions* Argelia Kam RN - 09/14/2023 10:11 AM MANAGER MENTAL HEALTH Moderate Sedation WHAT YOU NEED TO KNOW: Moderate sedation, or conscious sedation, is medicine used during procedures to help you feel relaxed and calm. You will be awake and able to follow directions without anxiety or pain. You will remember little to none of the procedure. You may feel tired, weak, or unsteady on your feet after you get sedation. You may also have trouble concentrating or short-term memory loss. These symptoms should go away in 24 hours or less. DISCHARGE INSTRUCTIONS: CALL 911 or have someone else call for any of the following: You have sudden trouble breathing. You can not be woken. Seek care immediately if: You have a severe headache or dizziness. Your heart is beating faster than usual. Contact your healthcare provider if: You have a fever. You have nausea or are vomiting for more than 8 hours after the procedure. Your skin is itchy, swollen, or you have a rash. You have questions or concerns about your condition or care. Self-care: Have someone stay with your for 24 hours. This person can drive you to errands and help you do things around the house. This person can also watch for problems. Rest and do quiet activities for 24 hours. Do not exercise, ride a bike, or play sports. Stand up slowly to prevent dizziness and falls. Take short walks around the house with another person. Slowly return to your usual activities the next day or as directed by your physician. Do not drive or use dangerous machines or tools for 24 hours. You may injure yourself or others. Examples include a lawnmower, saw or drill. Do not return to work for 24 hours if you use dangerous machines or tools for work. Do not make important decisions for 24 hours. For example, do not sign important papers or invest money. Eat small, frequent meals to prevent nausea and vomiting. Start with clear liquids such as juice orbroth. If you do not vomit after clear liquids, you can eat your usual foods. Do not drink alcohol or take medicines that make you drowsy. This includes medicines that help you sleep and anxiety medicines. Ask your healthcare provider if it is safe for you to take pain medicine. Follow up with your healthcare provider as directed: Write down your questions so you remember to ask them during your visits. GER MENTAL HEALTH * Appointments* Argelia Kam RN - 09/14/2023 10:11 AM MANAGER MENTAL HEALTH Cardioversion Discharge Instructions The medicine you have received for sedation may make you feel lightheaded for several hours For the next 24 hours: -DO NOT drive a car, operate machinery or power tools -DO NOT drink any alcoholic beverages, even beer -DO NOT make any important decisions or sign any legal documents 3. Your IV site may become tender, swollen and/or red. Apply a warm, damp cloth to the reddened area for 15-20 minutes, 3-4 times a day. Reduce your Amiodarone dose down to 100 mg once daily You have a new hospital follow-up appointment in the [facility] office with Dr. Husain on September 22, 2023 @ 1:30 p.m. The office is located directly across from the hospital in [address], [address]. GER MENTAL HEALTH [facility] GER M[facility]ALTH GER M[facility]AL HEALTH GER MENTAL HEALTH GER M[facility]AL HEALTH documented in this encounter Medications at Time of Discharge [...] (two) times a day 70 g 07/29/2023 acetaminophen 32 mg/mL oral liquid 02 4 amiodarone (PACERONE) 100 mg tablet Take 1 tablet (100 mg total) by mouth daily 30 tablet 2 09/14/2023 4 apixaban (ELIQUIS) 2.5 mg tabletIndications: VTE Prophylaxis,atrial fibrillation Take 1 tablet (2.5 mg total) by mouth every 12 (twelve) hours 60 tablet 1 07/29/2023 4 buPROPion SR (WELLBUTRIN SR) 150 mg 12 hr tablet 08/28/2023 4 buPROPion SR (ZYBAN) 150 mg 12 [...] mouth daily 30 capsule 1 07/30/2023 4 Phospha 250 Neutral 250 mg tablet 09/08/2023 4 sacubitriL-valsart an (ENTRESTO) 24-26 mg tabletIndications: chronic heart failure Take 1 tablet by mouth 2 (two) times a day 60 tablet 07/29/2023 4 spironolactone (ALDACTONE) 25 mg tablet Take 1 tablet (25 mg total) by mouth daily 30 tablet 1 07/30/2023 4 documented as of this encounter Ordered Prescriptions Prescription Sig Dispense Quantity Refills Last Filled Start Date End Date amiodarone (PACERONE) 100 mg tablet Take 1 tablet (100 mg total) by mouth daily 30 tablet 2 09/14/2023 02/01/2024 documented in this encounter Discharge Disposition Disposition Code Departure Means Destination Comment s Discharge to home or self care documented in this encounter H&P Notes * Roly Husain MD - 09/14/2023 1:12 PM CST I have reviewed the H&P, examined the patient, and endorse the findings as written. 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 09/07/2023 3:37 PM Roly Husain MD Cc:Tristan Watson MD GER MENTAL HEALTH documented in this encounter Miscellaneous Notes * Perioperative Nursing Note - Maninder Ibrahim RN - 09/14/2023 1:09 PM MANAGER MENTAL HEALTH Patient lifevest device applied prior to discharge. Discharge instructions discussed and reviewed with patient. Patient has no further questions. Patient verbalized understanding. Patient was wheel out where [facility] bus took patient back to their facility with significant other. Patient left the [facility] with their belongings. GER MENTAL HEALTH documented in this encounter Plan of Treatment Not on file documented as of this encounter Procedures Procedure Name Priority Date/Time Associated Diagnosis Comments ECG 12-LEAD Routine 09/14/2023 11:01 AM MANAGER MENTAL HEALTH CARDIOVERSION Routine 09/14/2023 10:39 AM MANAGER MENTAL HEALTH Typical atrial flutter (CMS/HCC) (HCC) EGFR STAT 09/14/2023 8:55 AM MANAGER MENTAL HEALTH DIFFERENTIAL AUTO STAT 09/14/2023 8:5 5 AM MANAGER MENTAL HEALTH CBC WITH AUTO DIFFERENTIAL STAT 09/14/2023 8:55 AM MANAGER MENTAL HEALTH APTT STAT 09/14/2023 8:55 AM MANAGER MENTAL HEALTH PROTIME-INR STAT 09/14/2023 8:55 AM MANAGER MENTAL HEALTH BASIC METABOLIC PANEL STAT 09/14/2023 8:55 AM MANAGER MENTAL HEALTH documented in this encounter Results * ECG 12 lead (09/14/2023 11:01 AM MANAGER MENTAL HEALTH) 09/14/2023 11:0 1 AM MANAGER MENTAL HEALTH Narrative [facility] - 09/14/2023 12:22 PM MANAGER MENTAL HEALTH Vent Rate: 54 bpm RR Interval: 1110 msec CO Interval: 0 msec QRS Duration: 119 msec QT Interval: 509 msec QTC Interval: 494 msec P-R-T [place]: [address] - 13 - 155 degrees IMPRESSION: UNCERTAIN REGULAR RHYTHM MODERATE INTRAVENTRICULAR CONDUCTION DELAY ??[110+ ms QRS DURATION] ST DEVIATION AND MODERATE T-WAVE ABNORMALITY, CONSIDER ANTEROLATERAL ISCHEMIA ??[-0.1+ mV T-WAVE IN V3-V6] ABNORMAL ECG Compared to prior EKG, heart rate has decreased Junctional rhythm has replaced atrial flutter Electronically Signed By: John Dominguez MD Roly Husain MD ECG ORDERABLES Final Result [facility] * CARDIOVERSION (09/14/2023 10:39 AM MANAGER MENTAL HEALTH) Anatomical Region Laterality Modality X-Ray Angiograph y 09/14/2023 Narrative 09/15/2023 3:36 PM MANAGER MENTAL HEALTH [employer] Job ID: [id number] [employer] Document ID: [id number] Dictated date/time: [id number] DATE OF PROCEDURE 14 September 2023. NAME OF PROCEDURE Cardioversion of atrial flutter. PROCEDURE The patient was brought down to the cardiac cemetery laborer where she was prepared in the usual fashion. ??Tiffany GUIDRY was the sedating nurse for a total sedation time of 15 minutes. ??The patient received in small increments 2 mg IV Versed and 75 mcg IV fentanyl. ??When well sedated, a 360 joule synchronized biphasic shock converted her right away to 1 sinus beat followed by junctional rhythm. ??She remained in junctional rhythm in the 50s throughout. The patient will be going home later today on lower dose of amiodarone and continue on the Eliquis. Job ID/Internal Job ID: ??[id number] us Roly Husain MD CV ELECTROPHYSIOLOGY PROCS Fi nal Result * eGFR (09/14/2023 8:55 AM MANAGER MENTAL HEALTH) eGFR 75 mL/min/1. 73 m2 [facility] ([place]) Comment: Interpretive Data Reference Interval Normal ?>/= 90 mL/min/1.73m2 Mildly decreased* ? 60 - 89 mL/min/1.73m2 Mildly to moderately decreased ?45 - 59 mL/min/1.73m2 Moderately to severely decreased ??30 - 44 mL/min/1.73m2 Severely decreased ?15 - 29 mL/min/1.73m2 Kidney Failure ?< 15 ??mL/min/1.73m2 *Relative to young adult level Estimated glomerular filtration rate is determined by the 2020 CKD-EPI equation recommended by the National Kidney Foundation (A Unifying Approach to GFR Estimation: Recommendations of the NKF-ASK Task Force on Reassessing the Inclusion of Race in Diagnosing Kidney Disease, JASN 2020). The CKD-EPI equation should not be used for patients with unstable renal function and has not been validated in children and those over 70. Current interpretive data was last reviewed 2021. Blood 09/14/2023 8:55 AM MANAGER MENTAL HEALTH 09/14/2023 8:57 AM MANAGER MENTAL HEALTH us Roly Husain MD LAB BLOOD ORDERABLES Final Re sult [facility] ([place]) 1 [facility] Department [place] [address] * Differential, auto (09/14/2023 8:55 AM MANAGER MENTAL HEALTH) Neutrophil abs 4.8 1.5 - 6.5 K/cumm [facility] ([place]) Imm gran abs 0.1 0.0 - 0.1 K/cumm [facility] ([place]) Lymphocyte abs 1.9 0.8 - 3.3 K/cumm [facility] ([place]) Monocyte abs 0.5 0.2 - 0.8 K/cumm [facility] ([place]) Eosinophil abs 0.0 0.0 - 0.5 K/cumm [facility] ([place]) Basophil abs 0.1 0.0 - 0.1 K/cumm [facility] ([place]) Neutrophil pct 65.1 % [facility] ([place]) Comment: Interpretive Data Percent cell count reference ranges are not reported, since discordance with absolute values may lead to misinterpretation of CBC data. Current Interpretive Data was last revised on 2017. Imm gran pct 0.7 % [facility] ([place]) Comment: Interpretive Data Percent cell count reference ranges are not reported, since discordance with absolute values may lead to misinterpretation of CBC data. Current Interpretive Data was last revised on 2017. Lymphocyte pct 25.3 % [facility] ([place]) Comment: Interpretive Data Percent cell count reference ranges are not reported, since discordance with absolute values may lead to misinterpretation of CBC data. Current Interpretive Data was last revised on 2017. Monocyte pct 7.3 % [facility] ([place]) Comment: Interpretive Data Percent cell count reference ranges are not reported, since discordance with absolute values may lead to misinterpretation of CBC data. Current Interpretive Data was last revised on 2017. Eosinophil pct 0.1 % [facility] ([place]) Comment: Interpretive Data Percent cell count reference ranges are not reported, since discordance with absolute values may lead to misinterpretation of CBC data. Current Interpretive Data was last revised on 2017. Basophil pct 1.5 % [facility] ([place]) Comment: Interpretive Data Percent cell count reference ranges are not reported, since discordance with absolute values may lead to misinterpretation of CBC data. Current Interpretive Data was last revised on 2017. Blood 09/14/2023 8:55 AM MANAGER MENTAL HEALTH 09/14/2023 8:57 AM MANAGER MENTAL HEALTH us Roly Husain MD LAB BLOOD ORDERABLES Final Re sult Performing Organization Address [facility] Co de Phone Number [facility] ([place]) 1 [facility] [place] [address] * aPTT (09/14/2023 8:55 AM MANAGER MENTAL HEALTH) aPTT 37 28 - 38 sec [facility] Comment: Interpretive Data Heparin therapeutic range: 66.0 - 100.0 seconds. Range based on correlation with therapeutic heparin activity range of 0.3 - 0.7 Units/mL. Current interpretive data was last revised on 2023. Blood 09/14/2023 8:5 5 AM MANAGER MENTAL HEALTH 09/14/2023 8:57 AM MANAGER MENTAL HEALTH us Roly Husain MD LAB BLOOD ORDERABLES Final Re sult Performing Organization Address [facility] Co de Phone Number [facility] ([place]) 1 [facility] [place] [address] * (ABNORMAL) Protime-INR (09/14/2023 8:55 AM MANAGER MENTAL HEALTH) PT 15.9(H) 10.3 - 13.7 sec [facility] ([place]) INR 1.39(H) 0.90 - 1.20 [facility] ([place]) Comment: Interpretive data Oral anticoagulant therapeutic ranges: Venous thromboembolism prophylaxis or treatment: 2.0-3.0 CARDIOLOGY Standard range: 2.0-3.0 High-intensity range: 2.5-3.5 Refer to indication-specific guidelines for appropriate target ranges for prosthetic heart valve replacement. Current interpretive data was last revised on 2019. Blood 09/14/2023 8:55 AM MANAGER MENTAL HEALTH 09/14/2023 8:57 AM MANAGER MENTAL HEALTH us Roly Husain MD LAB BLOOD ORDERABLES Final Re sult [facility] ([place]) 1 [facility] [place] [address] * (ABNORMAL) CBC with auto differential (09/14/2023 8:55 AM MANAGER MENTAL HEALTH) WBC 7.4 3.8 - 9.9 K/cumm [facility] ([place]) Hgb 14.5 11.9 - 15.5 g/dL [facility] ([place]) Hct 44.1 35.6 - 45.5 % [facility] ([place]) Plt 257 150 - 400 K/cumm [facility] ([place]) MPV 9.3 9.1 - 12.3 fL [facility]) RBC 4.40 3.90 - 5.20 M/cumm [facility] ([place]) MCV 100.2(H) 81.3 - 96.4 fL [facility] ([place]) MCH 33.0 27.1 - 33.3 pg [facility] ([place]) MCHC 32.9 32.3 - 35.7 g/dL [facility] ([place]) RDW CV 17.2(H) 11.1 - 14.9 % [facility] ([place]) RDW SD 64.2(H) 35.7 - 48.1 fL [facility] ([place]) NRBC abs 0.00 0.00 - 0.01 K/cumm [facility] ([place]) Blood 09/14/2023 8:55 AM MANAGER MENTAL HEALTH 09/14/2023 8:57 AM MANAGER MENTAL HEALTH us Roly Husain MD LAB BLOOD ORDERABLES Final Re sult [facility] ([place]) 1 [facility] [place] [address] * Basic metabolic panel (09/14/2023 8:55 AM MANAGER MENTAL HEALTH) Pathologist [facility] Sodium 140 135 - 145 mmol/L [facility] ([place]) Potassium, pl 4.4 3.3 - 4.9 mmol/L [facility] ([place]) Chloride 101 97 - 110 mmol/L [facility] ([place]) CO2 30 22 - 32 mmol/L [facility] ([place]) Anion gap 10 2 - 15 mmol/L [facility] ([place]) BUN 14 6 - 25 mg/dL [facility] ([place]) Creatinine 0.81 0.60 - 1.10 mg/dL [facility] ([place]) Glucose 117 70 - 199 mg/dL [facility] ([place]) Comment: Interpretive Data Fasting glucose >/= 126 mg/dl is diagnostic for diabetes. ?? Fasting is defined as no caloric intake [...] Current interpretive data was last revised 2022. Calcium 9.9 8.5 - 10.3 mg/dL [facility] ([place]) Blood 09/14/2023 8:55 AM MANAGER MENTAL HEALTH 09/14/2023 8:57 AM MANAGER MENTAL HEALTH us Roly Husain MD LAB BLOOD ORDERABLES Final Re sult [facility] ([place]) 1 [facility] [place] [address] documented in this encounter Visit Diagnoses Diagnosis Typical atrial flutter (CMS/HCC) (HCC) Typical atrial flutter (CMS/HCC) (HCC) documented in this encounter Admitting Diagnoses Diagnosis Typical atrial flutter (CMS/HCC) (HCC) documented in this encounter Administered Medications Inactive Administered Medications - up to 3 most recent administrations Medication Order MAR Action Action Date Dose Rate Site Carrier Fluids for Secondary Infusion - 0.9% Sodium Chloride 30 mL, intravenous, As needed, For priming tubing and/or flushing, Starting on Tue09/14/23 at 1000, Pre-Procedure (CV), 0-250 ml/hr to flush line after IV infusions when no maintenance IV ordered. Infuse 30mL at the same rate as the secondary infusion. Run as primary IV, not intended for KVO.Indications:Typical atrial flutter (CMS/HCC) (HCC) fentaNYL (SUBLIMAZE) preservative free injection Code/trauma/sedation medication, Starting on Tue09/14/23 at 1026, Intra-Procedure (CV) Given 09/14/2023 10:28 AM MANAGER MENTAL HEALTH 25 mcg Given 09/14/2023 10:26 AM MANAGER MENTAL HEALTH 50 mcg midazolam (VERSED) 1 mg/mL preservative free injection Administer over 2 Minutes, Code/trauma/sedation medication, Starting on Tue09/14/23 at 1026, Intra-Procedure (CV) Given 09/14/2023 10:26 AM MANAGER MENTAL HEALTH 2 mg sodium chloride 0.9% flush 0.5-20 mL 0.5-20 mL, intra-catheter, Every 8 hours scheduled, First dose on Tue09/14/23 at 1400, Pre-Procedure (CV), Flush volume based on line type and size.Indications:Typical atrial flutter (CMS/HCC) (HCC) sodium chloride 0.9% flush 0.5-20 mL 0.5-20 mL, intra-catheter, As needed, line care, Starting on Tue09/14/23 at 1000, Pre-Procedure (CV), Flush volume based on line type and size. Flush before and after each use.Indications:Typical atrial flutter (CMS/HCC) (HCC) sodium chloride 0.9% infusion 50 mL/hr, intravenous, Continuous, Starting on Tue09/14/23 at 1045, Pre-Procedure (CV)Indications:Typical atrial flutter (CMS/HCC) (HCC) New Bag 09/14/2023 10:01 AM MANAGER MENTAL HEALTH 50 mL/hr 50 mL/ hr documented in this encounter Discontinued Medications Medication Sig Discontinue Reason Start Date End Da te amiodarone (PACERONE) 200 mg tablet Take 1 tablet (200 mg total) by mouth 2 (two) times a day for 8 doses Stop Taking at Discharge 07/29/2023 09/14/2023 amiodarone (PACERONE) 200 mg tablet Take 1 tablet (200 mg total) by mouth daily Stop Taking at Discharge 08/02/2023 09/14/2023 documented as of this encounter Active and Recently Administered Medications Times are shown in MANAGER MENTAL HEALTH. Scheduled Medication Order 09/12/2023 09/13/2023 09/14/2023 sodium chloride 0.9% flush 0.5-20 mL 0.5-20 mL, intra-catheter, Every 8 hours scheduled, First dose on Tue09/14/23 at 1400, Pre-Procedure (CV), Flush volume based on line type and size. Continuous Medication Order 09/12/2023 09/13/2023 09/14/2023 sodium chloride 0.9% infusion (CANCELED) 50 mL/hr, intravenous, Continuous, Starting on Tue09/14/23 at 1045, Pre-Procedure (CV) 1001 (New Bag - Prov ider: Wan Menjivar RN)1031 (Due: Stopped - Provider: Argelia Kam RN) PRN Medication Order 09/12/2023 09/13/2023 09/14/2023 Carrier Fluids for Secondary Infusion - 0.9% Sodium Chloride 30 mL, intravenous, As needed, For priming tubing and/or flushing, Starting on Tue09/14/23 at 1000, Pre-Procedure (CV), 0-250 ml/hr to flush line after IV infusions when no maintenance IV ordered. Infuse 30mL at the same rate as the secondary infusion. Run as primary IV, not intended for KVO. fentaNYL (SUBLIMAZE) preservative free injection (CANCELED) Code/trauma/sedation medication, Starting on Tue09/14/23 at 1026, Intra-Procedure (CV) 1026 (Given - Provid er: Tiffany Diggs, BREA)1028 (Given - Provider: Tiffany Diggs, BREA) midazolam (VERSED) 1 mg/mL preservative free injection (CANCELED) Administer over 2 Minutes, Code/trauma/sedation medication, Starting on Tue09/14/23 at 1026, Intra-Procedure (CV) 1026 (Given - Provid er: Tiffany Diggs, BREA) sodium chloride 0.9% flush 0.5-20 mL 0.5-20 mL, intra-catheter, As needed, line care, Starting on Tue09/14/23 at 1000, Pre-Procedure (CV), Flush volume based on line type and size. Flush before and after each use. documented in this encounter Orders Medications Ordered That Fitz ht Not Have Been Administered Count Last Ordered Date First Ordered Date Carrier Fluids for Secondary Infusion - 0.9% Sodium Chloride 1 09/14/2023 sodium chloride 0.9% flush 0.5-20 mL 2 09/01 sodium chloride 0.9% infusion 1 09/14/2023 Nursing Count Last Ordered Date First Orde red Date TELEMETRY MONITORING 1 09/14/2023 Discharge Count Last Ordered Date First Orde red Date DISCHARGE PATIENT 1 09/14/2023 documented in this encounter Care Teams [facility] Relationship Specialty Start Date End Date [place] [address] PCP - General Family Medicine 03/15/22 documented as of this encounter
--- OUTSIDE RECORDS SUMMARY | 2024-08-13 05:21 | XMS_ITS | Encounter Summary ---
Author Organization [facility] Healthcare Address [address] [place] [address] Care Team Providers Care Internet Marketer Name Role Phone Tristan Watson MD Primary Care Provider [phone] Reason for Referral * Diagnostic Imaging (Routine) - Authorized Specialty Diagnoses / Procedures Referred By Contac t Referred To Contact Diagnoses Post-menopausal Procedures Dexa Axial Skeleton Bone Density 1 or 2 Site Tristan Watson MD [address] [place] [address] Phone: tel: fax: [address] [address] Referral ID Status Reason Start Date Expiration Date V isits Requested Visits Authorized [id number] Authorized 10/05/2023 11/03/2024 1 1 DEVELOPER Reason for Visit * Reason Comments Follow-up Pt here for a check up. Encounter Details Date Type Department Care Team (Late st Contact Info) Description 09/21/2023 11:30 AM CQ DEVELOPER Office Visit [facility] [address] [place] [address] Tristan Watson MD [address] [place] [address] Post-menopausal (Primary Dx); Benign hypertension; Recurrent major depressive disorder, in partial remission (HCC); Class 3 severe obesity due to excess calories with serious comorbidity and body mass index (BMI) of 50.0 to 59.9 in adult (HCC); Takotsubo cardiomyopathy; Acquired hypothyroidism Social History Tobacco Use Types Packs/Day Years [...] on file Legal Sex Female 11:52 PM CQ DEVELOPER Gender Identity Female 09/15/2022 2:42 PM CQ DEVELOPER Sexual Orientation Straight 09/15/2022 2: 42 PM CQ DEVELOPER documented as of this encounter Last Filed Vital Signs Vital Sign Reading Time Taken Comments Blood Pressure 124/62 09/21/2023 11:24 AM CQ DEVELOPER Pulse 63 09/21/2023 11:24 AM CQ DEVELOPER Temperature - - Respiratory Rate 18 09/21/2023 11:24 AM CQ DEVELOPER Oxygen Saturation 93% 09/21/2023 11:24 AM CQ DEVELOPER Inhaled Oxygen Concentration - - Weight 131.1 kg (289 lb) 09/21/2023 11:24 AM CQ DEVELOPER Height 157.5 cm (5' 2.01 ) 09/21/2023 11:[address] Body Mass Index 52.85 09/21/2023 11:24 AM CQ DEVELOPER documented in this encounter Progress Notes * Tristan Watson MD - 09/21/2023 11:30 AM CST Images from the original note were not included. Subjective/Objective Patient ID: Lupis Juarez is a 78 y.o. female. Chief Complaint Chief Complaint Patient presents with Follow-up Pt here for a check up. Diagnoses and all orders for this visit: Post-menopausal (Primary) Benign hypertension Assessment & Plan: Stable, well controlled; blood pressure at goal; no chest pain or pressure Continue carvedilol 3.125 mg b.i.d., Entresto 24-26 b.i.d., spironolactone 25 mg daily Recurrent major depressive disorder, in partial remission (HCC) Assessment & Plan: Stable, improving; patient reports initially was depressed, now doing better that she is engaged with therapy Continue bupropion 150 mg b.i.d., fluoxetine 40 mg daily Class 3 severe obesity due to excess calories with serious comorbidity and body mass index (BMI) of50.0 to 59.9 in adult (HCC) Assessment & Plan: Stable, no significant changes to wait; patient has engage with physical therapy in [facility]; limited physical activity; encouraged dietary changes, limiting caloric intake through portion sizes and low-calorie foods Takotsubo cardiomyopathy Assessment & Plan: Stable, improving; using 3.5 L of supplemental oxygen for symptom relief Continue Entresto 24-26 mg b.i.d., spironolactone 25 mg daily, carvedilol 3.125 mg b.i.d., Lasix 40mg daily Acquired hypothyroidism Assessment & Plan: elsStable, no major changes; will continue to monitor, especially now that patient is taking amiodarone Return in about 2 months (around 11/20/2023) for Annual physical. HPI HPI Patient jrarell 78 year old female, presenting for management of chronic medical conditions. HTN: -blood pressure at goal Stasis Dermattis: IGT: Chronic Pain: -pain is almost resolved for patient Asthma: -breathing has been doing well for patient, no major concerns MDD: -was depressed before starting therapy, but now doing better Obesity: Tremor: Hypothryroidism: -stable, mostly spends tie in thearpy or in bed -able to complete PT Atrial Fibrillation: -cardioversion one week ago HF: -diagnosed in 07/23 -usually uses O2 for breathing, with good relief -currently on O2 3.5 L.min Living in Rehab -cannot pivot to left -continues to work on PT; improving functional status -using wheelchair for ambulation, has not walked in long time; using walker at home prior to placement -not ambulating since Jul 16 BP 124/62 (BP Location: Right arm, Patient Position: Sitting) Pulse 63 Resp 18 Ht 157.5 cm (5' 2.01 ) Wt 131.1 kg (289 lb) SpO2 93% BMI 52.85 kg/m?? Current Outpatient Medications Medication Sig Dispense Refill [...] 0 Phospha 250 Neutral 250 mg tablet spironolactone (ALDACTONE) 25 mg tablet Take 1 tablet (25 mg total) by mouth daily 30 tablet 1 sacubitriL-valsartan (ENTRESTO) 24-26 mg tablet Take 1 tablet by mouth 2 (two) times a day 60 tablet 0 No current facility-administered medications for this visit. Allergies as of 09/21/2023 - Reviewed 09/21/2023 Allergen Reaction Noted Quinapril Other (See comments) Review of Systems Constitutional: Positive for fatigue. Negative for activity change, chills and fever. HENT: Negative for sore throat. Respiratory: Negative for cough and shortness of breath. Cardiovascular: Positive for leg swelling. Negative for chest pain. Gastrointestinal: Negative for abdominal pain, constipation, diarrhea, nausea and vomiting. Musculoskeletal: Negative for arthralgias and myalgias. Neurological: Positive for tremors and weakness. Psychiatric/Behavioral: Negative for dysphoric mood and sleep disturbance. The patient is not nervous/anxious. Physical Exam Vitals reviewed. Constitutional: Appearance: Normal [...] Behavior normal. Thought Content: Thought content normal. Procedures Tristan Watson MD DEVELOPER documented in this encounter Miscellaneous Notes * Assessment & Plan Note - Tristan Watson MD - 10/05/2023 1:14 PM CQ DEVELOPER Associated Problem(s): Acquired hypothyroidism elsStable, no major changes; will continue to monitor, especially now that patient is taking amiodarone DEVELOPER DEVELOPER * Assessment & Plan Note - Tristan Watson MD - 10/05/2023 1:14 PM CQ DEVELOPER Associated Problem(s): Takotsubo cardiomyopathy Stable, improving; using 3.5 L of supplemental oxygen for symptom relief Continue Entresto 24-26 mg b.i.d., spironolactone 25 mg daily, carvedilol 3.125 mg b.i.d., Lasix 40mg daily DEVELOPER * Assessment & Plan Note - Tristan Watson MD - 10/05/2023 1:13 PM CQ DEVELOPER Associated Problem(s): Class 3 severe obesity due to excess calories with serious comorbidity and body mass index (BMI) of 40.0 to 44.9 in adult (HCC) Stable, no significant changes to wait; patient has engage with physical therapy in [facility]; limited physical activity; encouraged dietary changes, limiting caloric intake through portion sizes and low-calorie foods DEVELOPER * Assessment & Plan Note - Tristan Watson MD - 10/05/2023 1:13 PM CQ DEVELOPER Associated Problem(s): Recurrent major depressive disorder, in partial remission (HCC) Stable, improving; patient reports initially was depressed, now doing better that she is engaged with therapy Continue bupropion 150 mg b.i.d., fluoxetine 40 mg daily DEVELOPER * Assessment & Plan Note - Tristan Watson MD - 10/05/2023 1:13 PM CQ DEVELOPER Associated Problem(s): Benign hypertension Stable, well controlled; blood pressure at goal; no chest pain or pressure Continue carvedilol 3.125 mg b.i.d., Entresto 24-26 b.i.d., spironolactone 25 mg daily DEVELOPER documented in this encounter Plan of Treatment Scheduled Orders Name Type Priority Associated Diagnoses Orde r Schedule Dexa Axial Skeleton Bone Density 1 or 2 Site Imaging Schedule Routine, Read Routine (OP Routine) Post-menopausal Expected: 10/05/2023, Expires: 09/13/2024 documented as of this encounter Visit Diagnoses Diagnosis Post-menopausal- Primary Asymptomatic postmenopausal status (age-related) (natural) Benign hypertension Essential hypertension, benign Recurrent major depressive disorder, in partial remission (HCC) Class 3 severe obesity due to excess calories with serious comorbidity and body mass index (BMI) of 50.0 to 59.9 in adult (HCC) Takotsubo cardiomyopathy Takotsubo syndrome Acquired hypothyroidism Unspecified hypothyroidism documented in this encounter Historical Medications * This list may reflect changes made after this encounter. Medication Sig Dispense Quantity Refills Last Filled Start D ate End Date buPROPion SR (WELLBUTRIN SR) 150 mg 12 hr tablet 08/28/2023 Phospha 250 Neutral 250 mg tablet 09/08/2023 04/10/2024 added in this encounter Care Teams Internet Marketer Relationship Specialty Start Date End Date Tristan Watson MD [place] [address] [id number] PCP - General Family Medicine 03/15/22 documented as of this encounter
--- OUTSIDE RECORDS SUMMARY | 2024-08-13 05:21 | XMS_ITS | Encounter Summary ---
Author Organization [facility] Healthcare Address [address] [place] [address] Care Team Providers Care Adaptive Physical Education Specialist Name Role Phone Tristan Rivers MD Primary Care Provider [phone] Reason for Referral * Procedure (Routine) - Authorized Specialty Diagnoses / Procedures Referred By Contsekou t Referred To Contact Diagnoses Impacted cerumen, bilateral Procedures Ear Cerumen Removal Tristan Rivers MD [facility] [address] [place] [address] Phone: tel: fax: [facility] Referral ID Status Reason Start Date Expiration Date V isits Requested Visits Authorized [id number] Authorized 02/01/2024 03/02/2025 1 1 Reason for Visit * Reason Comments Follow-up 2 mo f/u Cough Pt complains of havi ng a cough since allergy season began Encounter Details Date Type Department Care Team (Late st Contact Info) Description 02/01/2024 3:30 PM CDT Office Visit [facility] [address] [place] [address] Tristan Rivers MD [address] [place] [address] Need for hepatitis B screening test (Primary Dx); Encounter for hepatitis C screening test for low risk patient; Benign hypertension; Chronic stasis dermatitis; Chronic pain syndrome; Mild persistent asthma without complication; Recurrent major depressive disorder, in partial remission (HCC); Class 3 severe obesity due to excess calories with serious comorbidity and body mass index (BMI) of 45.0 to 49.9 in adult (HCC); Hypertensive heart disease with chronic combined systolic and diastolic congestive heart failure (HCC); Impacted cerumen, bilateral Social History Tobacco Use Types Packs/Day Years [...] on file Legal Sex Female 11:52 PM 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 DEPUTY OR 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 CLERK Gender Identity Female 09/15/2022 2:42 PM COURTROOM DEPUTY OR CALENDAR CLERK Sexual Orientation Straight 09/15/2022 2: 42 PM COURTROOM DEPUTY OR CALENDAR CLERK documented as of this encounter Last Filed Vital Signs Vital Sign Reading Time Taken Comments Blood Pressure 100/64 02/01/2024 3:07 PM CDT Pulse 65 02/01/2024 3:07 PM CDT Temperature 36.4 ??C (97.6 ??F) 02/01/2024 3:07 PM CD T Respiratory Rate 20 02/01/2024 3:07 PM CDT Oxygen Saturation 97% 02/01/2024 3:07 PM CDT Inhaled Oxygen Concentration - - Weight 112.9 kg (249 lb) 02/01/2024 3:07 PM CDT Height 157.5 cm (5' 2 ) 02/01/2024 3:07 PM CDT Body Mass Index 45.54 02/01/2024 3:07 PM CDT documented in this encounter Progress Notes * Tristan Rivers MD - 02/01/2024 3:30 PM CDTAssociated Order(s): Ear Cerumen Removal Post-Procedure Diagnose(s): Impacted cerumen, bilateral Images from the original note were not included. Subjective/Objective Patient ID: Lupis Juarez is a 78 y.o. female. Chief Complaint Chief Complaint Patient presents with Follow-up 2 mo f/u Cough Pt complains of having a cough since allergy season began Diagnoses and all orders for this visit: Need for hepatitis B screening test (Primary) - Hepatitis B Surface Antigen Blood; Future - Hepatitis B core antibody, total Blood; Future - Hepatitis B surface antibody (immune status) Blood; Future Encounter for hepatitis C screening test for low risk patient - Hepatitis C antibody Blood; Future Benign hypertension Assessment & Plan: Stable, well controlled, blood pressure at goal Mild dizziness, will continue to monitor Continue carvedilol 3.125 mg b.i.d., Entresto 24-261 tablet b.i.d., spironolactone 25 mg daily Chronic stasis dermatitis Assessment & Plan: Stable, improving; lymphedema is improving under control No significant peripheral rash or erythema Will continue monitor closely Chronic pain syndrome Assessment & Plan: Patient continues with physical therapy, has physical therapy 4 days per week Takes 2 days to recover from physical therapy, has pain requiring use of Tylenol for pain relief Continue Tylenol p.r.n. for pain Mild persistent asthma without complication Assessment & Plan: Breathing has been good for patient; some cough due to allergy season Uses oxygen or sips of water to help relieve cough symptoms Continue Advair Diskus 1 puff b.i.d. Recurrent major depressive disorder, in partial remission ([facility]) Assessment & Plan: Anxiety is improving, engaged with physical therapy Continue Prozac Class 3 severe obesity due to excess calories with serious comorbidity and body mass index (BMI) of45.0 to 49.9 in adult ([facility]) Assessment & Plan: Stable, improving; patient has lost weight since last visit Encouraged continued dietary choices limit caloric input; engagement physical therapy Hypertensive heart disease with chronic combined systolic and diastolic congestive heart failure (HCC) Assessment & Plan: Stable, well controlled, heart failure is resolving; last echo demonstrated significant improvementin ejection fraction and cardiac function Other orders - Ear Cerumen Removal Return in about 4 months (around 06/03/2024). HPI HPI Patient is a 78 year old female, presenting for management of chronic medical conditions. HTN: -blood pressure at goal; gets dizzy at time -blood pressure typically runs in 100s / 60s Stasis Dermatitis: -lymphedema is improving, under control -no erythema or skin changes at this time Chronic Pain -requires pain medication after PT; has PT 4 days per week -takes 2 days to recover from week of physical therapy MDD: -anxiety is improving, getting engaged with physical therapy Asthma: -breathing has been good for patient; some worsening cough since allergy season started -no current treatments for cough, uses O2 or drinks water Obesity: -weight is down, downtrending Cardiomyopathy: -lipid at goal BP 100/64 (BP Location: Left arm, Patient Position: Sitting) Pulse 65 Temp 36.4 ??C (97.6 ??F) (Oral) Resp 20 Ht 157.5 cm (5' 2 ) Wt 112.9 kg (249 lb) SpO2 97% BMI 45.54 kg/m?? Current Outpatient Medications Medication Sig Dispense [...] mouth daily 30 tablet 1 FLUoxetine (PROzac) 20 mg capsule fluticasone propion-salmeteroL (Advair Diskus) 250-50 mcg/dose diskus [...] (two) times a day 180 tablet 4 ondansetron (ZOFRAN) 8 mg tablet Take 1 tablet (8 mg total) by mouth every 8 (eight) hours as needed for nausea or vomiting No current facility-administered medications for this visit. Allergies as of 02/01/2024 - Reviewed 01/19/2024 Allergen Reaction Noted Quinapril Other (See comments) Review of Systems Constitutional: Negative for activity change, chills and fever. HENT: Positive for hearing loss. Negative for sore throat. Respiratory: Negative for cough and shortness of breath. Cardiovascular: Positive for leg swelling. Negative for chest pain. Gastrointestinal: Negative for abdominal pain, constipation, diarrhea, nausea and vomiting. Musculoskeletal: Negative for arthralgias and myalgias. Skin: Negative for rash and wound. Psychiatric/Behavioral: Negative for dysphoric mood. The patient is nervous/anxious. Physical Exam Vitals reviewed. Constitutional: Appearance: Normal appearance. HENT: Head: Normocephalic and atraumatic. Right Ear: There is impacted cerumen. Left Ear: There is impacted cerumen. Cardiovascular: Rate and Rhythm: Normal rate and [...] Behavior normal. Thought Content: Thought content normal. Ear Cerumen Removal Performed by: Maria Elena Holman MA Authorized by: Tristan Rivers MD Consent Given by: Patient Verbal consent obtained: Yes Written consent obtained: No Risks, alternatives, and patient questions discussed: Yes Location: Bilateral L ear cerumen impacted?: Yes L ear method of removal: Irrigation R ear cerumen impacted?: Yes R ear method of removal: Irrigation Inspection: TM intact Hearing quality: Improved Patient tolerance: Patient tolerated the procedure well with no immediate complications Tristan Rivers MD documented in this encounter Miscellaneous Notes * Assessment & Plan Note - Tristan Rivers MD - 02/01/2024 4:51 PM CDT Associated Problem(s): Hypertensive heart disease with congestive heart failure (HCC) (Deleted) Stable, well controlled, heart failure is resolving; last echo demonstrated significant improvementin ejection fraction and cardiac function * Assessment & Plan Note - Tristan Rivers MD - 02/01/2024 4:50 PM CDT Associated Problem(s): Class 3 severe obesity due to excess calories with serious comorbidity and body mass index (BMI) of 40.0 to 44.9 in adult (HCC) Stable, improving; patient has lost weight since last visit Encouraged continued dietary choices limit caloric input; engagement physical therapy * Assessment & Plan Note - Tristan Rivers MD - 02/01/2024 4:50 PM CDT Associated Problem(s): Recurrent major depressive disorder, in partial remission (HCC) Anxiety is improving, engaged with physical therapy Continue Prozac * Assessment & Plan Note - Tristan Rivers MD - 02/01/2024 4:50 PM CDT Associated Problem(s): Mild persistent asthma without complication Breathing has been good for patient; some cough due to allergy season Uses oxygen or sips of water to help relieve cough symptoms Continue Advair Diskus 1 puff b.i.d. * Assessment & Plan Note - Tristan Rivers MD - 02/01/2024 4:50 PM CDT Associated Problem(s): Chronic pain syndrome Patient continues with physical therapy, has physical therapy 4 days per week Takes 2 days to recover from physical therapy, has pain requiring use of Tylenol for pain relief Continue Tylenol p.r.n. for pain * Assessment & Plan Note - Tristan Rivers MD - 02/01/2024 4:49 PM CDT Associated Problem(s): Chronic stasis dermatitis Stable, improving; lymphedema is improving under control No significant peripheral rash or erythema Will continue monitor closely * Assessment & Plan Note - Tristan Rivers MD - 02/01/2024 4:49 PM CDT Associated Problem(s): Benign hypertension Stable, well controlled, blood pressure at goal Mild dizziness, will continue to monitor Continue carvedilol 3.125 mg b.i.d., Entresto 24-261 tablet b.i.d., spironolactone 25 mg daily * Assessment & Plan Note - Tristan Rivers MD - 02/01/2024 3:30 PM CDT Associated Problem(s): Takotsubo cardiomyopathy >>ASSESSMENT AND PLAN FOR HYPERTENSIVE HEART DISEASE WITH CONGESTIVE HEART FAILURE (HCC) WRITTEN ON 02/01/2024 4:51 PM BY TRISTAN RIVERS MD Stable, well controlled, heart failure is resolving; last echo demonstrated significant improvementin ejection fraction and cardiac function * Addendum Note - Mark Frausto MA - 02/01/2024 3:30 PM CDTAddended by: MARK FRAUSTO on: 02/06/2024 03:05 PM Modules accepted: Orders documented in this encounter Plan of Treatment Scheduled Orders Name Type Priority Associated Diagnoses Orde r Schedule Hepatitis C antibody Blood Microbiology Routine Encounter for hepatitis C screening test for low risk patient Expected: 01/16/2024, Expires: 01/15/2025 Hepatitis B surface antibody (immune status) Blood Microbiology Routine Need for hepatitis B screening test Expected: 01/16/2024, Expires: 01/15/2025 Hepatitis B core antibody, total Blood Microbiology Routine Need for hepatitis B screening test Expected: 01/16/2024, Expires: 01/15/2025 Hepatitis B Surface Antigen Blood Microbiology Routine Need for hepatitis B screening test Expected: 01/16/2024, Expires: 01/15/2025 documented as of this encounter Procedures Procedure Name Priority Date/Time Associated Diagnosis Comments OH REMOVAL IMPACTED CERUMEN IRRIGATION/LVG UNILAT Routine 02/01/2024 3:30 PM CDT Impacted cerumen, bilateral documented in this encounter Results * OH REMOVAL IMPACTED CERUMEN IRRIGATION/LVG UNILAT (02/01/2024 3:30 PM CDT) Narrative Tristan Rivers MD - 02/01/2024 3:30 PM CDT Tristan Rivers MD ? 02/01/2024 ??4:51 PM Ear Cerumen Removal Performed by: Maria Elena Holman MA Authorized by: Tristan Rivers MD ?? Consent Given by: ??Patient Verbal consent obtained: Yes ?? Written consent obtained: No ?? Risks, alternatives, and patient questions discussed: Yes ?? Location: ??Bilateral L ear cerumen impacted?: Yes ?? L ear method of removal: ??Irrigation R ear cerumen impacted?: Yes ?? R ear method of removal: ??Irrigation Inspection: ??TM intact Hearing quality: ??Improved Patient tolerance: ??Patient tolerated the procedure well with no immediate complications us Tristan Rivers MD IN CLINIC/BEDSIDE ORDERAB LES Final Result documented in this encounter Visit Diagnoses Diagnosis Need for hepatitis B screening test- Primary Encounter for hepatitis C screening test for low risk patient Benign hypertension Essential hypertension, benign Chronic stasis dermatitis Chronic pain syndrome Mild persistent asthma without complication Recurrent major depressive disorder, in partial remission (HCC) Class 3 severe obesity due to excess calories with serious comorbidity and body mass index (BMI) of 45.0 to 49.9 in adult (HCC) Hypertensive heart disease with chronic combined systolic and diastolic congestive heart failure (HCC) Impacted cerumen, bilateral documented in this encounter Discontinued Medications Medication Sig Discontinue Reason Start Date End Da te FLUoxetine (PROzac) 40 mg capsuleIndications:Anxie ty with Depression,Fibromyalgia Take 1 capsule (40 mg total) by mouth daily Dose adjustment 07/30/2023 02/01/2024 amiodarone (PACERONE) 100 mg tablet Take 1 tablet (100 mg total) by mouth daily Dose adjustment 09/14/2023 02/01/2024 documented as of this encounter Historical Medications * This list may reflect changes made after this encounter. ondansetron (ZOFRAN) 8 mg tablet Take 1 tablet (8 mg total) by mouth every 8 (eight) hours as needed for nausea or vomiting 04/10/2024 FLUoxetine (PROzac) 20 mg capsule Take 3 capsules (60 mg total) by mouth daily 04/13/2024 amiodarone (PACERONE) 200 mg tablet 02/01/2024 04/13/2024 added in this encounter Care Teams Adaptive Physical Education Specialist Relationship Specialty Start Date End Date Tristan Rivers MD [address] [place] [address] PCP - General Family Medicine 03/15/22 documented as of this encounter
--- OUTSIDE RECORDS SUMMARY | 2024-08-13 05:21 | XMS_ITS | Encounter Summary ---
Author Organization [facility] Healthcare Address [address] [place] [address] Care Team Providers Care Pilot Control Operator Name Role Phone Tristan Watson MD Primary Care Provider [phone] [phone] Reason for Referral * Cardiology (Routine) - Closed Specialty Diagnoses / Procedures Referred By Curtac t Referred To Contact Diagnoses Takotsubo cardiomyopathy Procedures Transthoracic Echo (TTE) Complete W Doppler/CF Josefina Husain MD [address] [place] [address] [address]EN[address] [place] [address] Phone: tel: fax: [address] [address] Referral ID Status Reason Start Date Expiration Date Visits Re quested Visits Authorized [id number] Closed 09/22/2023 10/21/2024 1 1 ERONE Reason for Visit * Cardiology (Routine) - Closed Specialty Diagnoses / Procedures Referred By Lina richard Referred To Contact Diagnoses Takotsubo cardiomyopathy Procedures Transthoracic Echo (TTE) Complete W Doppler/CF Josefina Husain MD [address] [facility] [address] [place] [address] Phone: tel: fax: [address] [phone] Referral ID Status Reason Start Date Expiration Date Visits Re quested Visits Authorized [id number] Closed 09/22/2023 10/21/2024 1 1 Encounter Details Date Type Department Care Team (Latest Contact Info) Description 10/03/2023 1:34 PM CHAPERONE - 10/03/2023 11:59 PM CHAPERONE Hospital Encounter [facility] Cardiology [address] [place] [id number] Takotsubo cardiomyopathy Discharge Disposition: Discharge to home or self [...] on file Legal Sex Female 11:52 PM CHAPERONE Gender Identity Female 09/15/2022 2:42 PM CHAPERONE Sexual Orientation Straight 09/15/2022 2: 42 PM CHAPERONE documented as of this encounter Medications at [...] Procedure Name Priority Date/Time Associated Diagnosis Comments TRANSTHORACIC ECHO (TTE) COMPLETE W DOPPLER/CF WO CONTRAST Routine 10/03/2023 2:20 PM CHAPERONE Takotsubo cardiomyopathy documented in this encounter Results * TRANSTHORACIC ECHO (TTE) COMPLETE W DOPPLER/CF WO CONTRAST (10/03/2023 2:20 PM CHAPERONE) Anatomical Region Laterality Modality Ultrasound 10/03/2023 2:02 PM CHAPERONE Narrative 10/03/2023 4:42 PM CHAPERONE [address] [place] [address] Echocardiogram Report Patient Name: PEBBLES JUAREZ : 09-1945 Study Date: 10/03/2023 2:02:11 PM Gender: F Tech: TUBE TELLER Location: Echo lab 2 Ref Provider: JOSEFINA [...] Signed By: Dr Josefina Husain 2023-10-03 16:41:43 CHAPERONE Procedure Note Josefina Husain MD - 10/03/[address] [place] [address] Echocardiogram Report Patient Name: PEBBLES JUAREZ : 1945 Study Date: 10/03/2023 2:02:11 PM Gender: F Tech: TUBE TELLER Location: Echo lab 2 Ref Provider: JOSEFINA [...] Signed By: Dr Josefina Husain 2023-10-03 16:41:43 CHAPERONE us Josefina Husain MD CV ECHO PROCEDURES Final Resu lt documented in this encounter Visit Diagnoses Diagnosis Takotsubo cardiomyopathy Takotsubo syndrome documented in this encounter Care Teams Pilot Control Operator Relationship Specialty Start Date End Date [place]istan [place] [address] PCP - General Family Medicine 03/15/22 documented as of this encounter
--- OUTSIDE RECORDS SUMMARY | 2024-08-13 05:21 | XMS_ITS | Encounter Summary ---
Author Organization [facility] Healthcare Address [address] [place] [address] Care Team Providers Care Applied Psychology Teacher Name Role Phone Tristan Watson MD Primary Care Provider [phone] Reason for Visit * Auth/Cert (Routine) Specialty Diagnoses / Procedures Referred By Contac t Referred To Contact Diagnoses Typical atrial flutter (CMS/HCC) (HCC) Typical atrial flutter (CMS/HCC) (HCC) [I48.3] Procedures CARDIOVERSION 19305 Referral ID Status Reason Start Date Expiration Date Visits Re quested Visits Authorized [id number] 1 1 Encounter Details Date Type Department Care Team (Latest Contact Info) Description 09/14/2023 8:43 AM CARD CLEANER - 09/14/2023 1:12 PM [facility] Hospital Encounter [facility] Cardiac Catheterization [address] [place] [address] Roly Husain MD [address] [address] Typical atrial flutter (CMS/HCC) (HCC) Discharge Disposition: Discharge to home or self [...] on file Legal Sex Female 11:52 PM CARD CLEANER Gender Identity Female 09/15/2022 2:42 PM CARD CLEANER Sexual Orientation Straight 09/15/2022 2: 42 PM CARD CLEANER documented as of this encounter Last Filed Vital Signs Vital Sign Reading Time Taken Comments Blood Pressure 135/64 09/14/2023 12:30 PM CARD CLEANER Pulse 59 09/14/2023 12:30 PM CARD CLEANER Temperature 36.9 ??C (98.5 ??F) 09/14/2023 9:56 AM CS T Respiratory Rate 19 09/14/2023 12:3 0 PM CARD CLEANER Oxygen Saturation 95% 09/14/2023 12: 30 PM CARD CLEANER Inhaled Oxygen Concentration - - Weight 131.5 kg (289 lb 14.5 oz) 09/14/2023 9:56 AM CARD CLEANER Height 157.5 cm (5' 2 ) 09/14/2023 9:56 AM CARD CLEANER Body Mass Index 53.02 09/14/2023 9:56 AM CARD CLEANER documented in this encounter Discharge Instructions * Discharge Instructions* Argelia Kam RN - 09/14/2023 10:11 AM CARD CLEANER Moderate Sedation WHAT YOU NEED TO KNOW: [...] remember to ask them during your visits. CLEANER * Appointments* Argelia Kam RN - 09/14/2023 10:11 AM CARD CLEANER Cardioversion Discharge Instructions The medicine you have [...] a new hospital follow-up appointment in the [facility] office with Dr. Husain on September 22, 2023 @ 1:30 p.m. The office is located directly across from the hospital in [address], [address]. CLEANER CLEANER CLEANER CLEANER CLEANER CLEANER documented in this encounter Medications at Time [...] g 07/29/2023 acetaminophen 32 mg/mL oral liquid 4 amiodarone (PACERONE) 100 mg tablet Take [...] be an acceptable risk for: Procedure(s): CARDIOVERSION 98668 CLEANER Source Note - Roly Husain MD - 09/07/2023 2:45 PM CARD CLEANER Cardiology note Reason for Office Visit: Follow-up [...] (HCC) History of transfusion HX OTHER MEDICAL 01-DRUG COORDINATOR HX 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-ORTHOPEDIST HX OTHER MEDICAL [...] PM Roly Husain MD Cc:Tristan Watson MD CLEANER documented in this encounter Miscellaneous Notes * Perioperative Nursing Note - Maninder Ibrahim RN - 09/14/2023 1:09 PM CARD CLEANER Patient lifevest device applied prior to discharge. Discharge instructions discussed and reviewed with patient. Patient has no further questions. Patient verbalized understanding. Patient was wheel out where ACT bus took patient back to their facility with significant other. Patient left the [facility] with their belongings. CLEANER documented in this encounter Plan of Treatment Not on file documented as of this encounter Procedures Procedure Name Priority Date/Time Associated Diagnosis Comments ECG 12-LEAD Routine 09/14/2023 11:01 AM CARD CLEANER CARDIOVERSION Routine 09/14/2023 10:39 AM CARD CLEANER Typical atrial flutter (CMS/HCC) (HCC) EGFR STAT 09/14/2023 8:55 AM CARD CLEANER DIFFERENTIAL AUTO STAT 09/14/2023 8:5 5 AM CARD CLEANER CBC WITH AUTO DIFFERENTIAL STAT 09/14/2023 8:55 AM CARD CLEANER APTT STAT 09/14/2023 8:55 AM CARD CLEANER PROTIME-INR STAT 09/14/2023 8:55 AM CARD CLEANER BASIC METABOLIC PANEL STAT 09/14/2023 8:55 AM CARD CLEANER documented in this encounter Results * ECG 12 lead (09/14/2023 11:01 AM CARD CLEANER) 09/14/2023 11:0 1 AM CARD CLEANER Narrative [facility] - 09/14/2023 12:22 PM CARD CLEANER Vent Rate: 54 bpm RR Interval: 1110 msec SC Interval: 0 msec QRS Duration: 119 msec QT Interval: 509 msec QTC Interval: 494 msec P-R-T [place]: 21639 - 13 - 155 degrees IMPRESSION: UNCERTAIN REGULAR RHYTHM MODERATE INTRAVENTRICULAR CONDUCTION DELAY ??[110+ ms QRS DURATION] ST DEVIATION AND MODERATE T-WAVE ABNORMALITY, CONSIDER ANTEROLATERAL ISCHEMIA ??[-0.1+ mV T-WAVE IN V3-V6] ABNORMAL ECG Compared to prior EKG, heart rate has decreased Junctional rhythm has replaced atrial flutter Electronically Signed By: John Dominguez MD us Roly Husain MD ECG ORDERABLES Final Result [facility] * CARDIOVERSION (09/14/2023 10:39 AM CARD CLEANER) Anatomical Region Laterality Modality X-Ray Angiograph y 09/14/2023 Narrative 09/15/2023 3:36 PM CARD CLEANER [employer] Job ID: [id number] [facility] Document ID: [id number] Dictated date/time: [id number] DATE OF PROCEDURE 14 September 2023. NAME OF PROCEDURE Cardioversion of atrial flutter. PROCEDURE The patient was brought down to the cardiac distillery laborer where she was prepared in the [...] on the Eliquis. Job ID/Internal Job ID: ??[id number] us Roly Husain MD CV ELECTROPHYSIOLOGY PROCS Fi nal Result * eGFR (09/14/2023 8:55 AM CARD CLEANER) Pathologist [facility] eGFR 75 mL/min/1. 73 m2 [facility] ([place]) Comment: Interpretive Data Reference Interval Normal ?>/= [...] last reviewed 2021. Blood 09/14/2023 8:55 AM CARD CLEANER 09/14/2023 8:57 AM CARD CLEANER us Roly Husain MD LAB BLOOD ORDERABLES Final Re sult [facility] ([place]) 1 [facility] Department [place] [address] * Differential, auto (09/14/2023 8:55 AM CARD CLEANER) Pathologist [facility] Neutrophil abs 4.8 1.5 - 6.5 K/cumm [facility] ([place]) Imm gran abs 0.1 0.0 - 0.1 K/cumm [facility] ([place]) Lymphocyte abs 1.9 0.8 - 3.3 K/cumm [facility] ([place]) Monocyte abs 0.5 0.2 - 0.8 K/cumm [facility] ([place]) Eosinophil abs 0.0 0.0 - 0.5 K/cumm [facility] ([place]) Basophil abs 0.1 0.0 - 0.1 K/cumm [facility] ([place]) Neutrophil pct 65.1 % [facility] ([place]) Comment: Interpretive Data Percent cell count reference ranges are not reported, since discordance with absolute values may lead to misinterpretation of CBC data. Current Interpretive Data was last revised on 2017. Imm gran pct 0.7 % [facility] ([place]) Comment: Interpretive Data Percent cell count reference ranges are not reported, since discordance with absolute values may lead to misinterpretation of CBC data. Current Interpretive Data was last revised on 2017. Lymphocyte pct 25.3 % [facility] ([place]) Comment: Interpretive Data Percent cell count reference ranges are not reported, since discordance with absolute values may lead to misinterpretation of CBC data. Current Interpretive Data was last revised on 2017. Monocyte pct 7.3 % [facility] ([place]) Comment: Interpretive Data Percent cell count reference ranges are not reported, since discordance with absolute values may lead to misinterpretation of CBC data. Current Interpretive Data was last revised on 2017. Eosinophil pct 0.1 % [facility] ([place]) Comment: Interpretive Data Percent cell count reference ranges are not reported, since discordance with absolute values may lead to misinterpretation of CBC data. Current Interpretive Data was last revised on 2017. Basophil pct 1.5 % [facility] ([place]) Comment: Interpretive Data Percent cell count reference ranges are not reported, since discordance with absolute values may lead to misinterpretation of CBC data. Current Interpretive Data was last revised on 2017. Blood 09/14/2023 8:55 AM CARD CLEANER 09/14/2023 8:57 AM CARD CLEANER Roly Husain MD LAB BLOOD ORDERABLES Final Re sult Performing Organization Address [facility] Co de Phone Number [facility] ([place]) 1 [facility] [place] [address] * aPTT (09/14/2023 8:55 AM CARD CLEANER) aPTT 37 28 - 38 sec [facility] ([place]) Comment: Interpretive Data Heparin therapeutic range: 66.0 - 100.0 seconds. Range based on correlation with therapeutic heparin activity range of 0.3 - 0.7 Units/mL. Current interpretive data was last revised on 2023. Blood 09/14/2023 8:55 AM CARD CLEANER 09/14/2023 8:57 AM CARD CLEANER Roly Husain MD LAB BLOOD ORDERABLES Final Re sult Performing Organization Address [facility] Co de Phone Number [facility] ([place]) 1 [facility] [place] [address] * (ABNORMAL) Protime-INR (09/14/2023 8:55 AM CARD CLEANER) PT 15.9(H) 10.3 - 13.7 sec [facility] ([place]) INR 1.39(H) 0.90 - 1.20 [facility] ([place]) Comment: Interpretive data Oral anticoagulant therapeutic ranges: Venous thromboembolism prophylaxis or treatment: 2.0-3.0 CARDIOLOGY Standard range: 2.0-3.0 High-intensity range: 2.5-3.5 Refer to indication-specific guidelines for appropriate target ranges for prosthetic heart valve replacement. Current interpretive data was last revised on 2019. Blood 09/14/2023 8:55 AM CARD CLEANER 09/14/2023 8:57 AM CARD CLEANER Roly Husain MD LAB BLOOD ORDERABLES Final Re sult Performing Organization Address [facility] Co de Phone Number [facility] ([place]) 1 [facility] [place] [address] * (ABNORMAL) CBC with auto differential (09/14/2023 8:55 AM CARD CLEANER) Pathologist [facility] WBC 7.4 3.8 - 9.9 K/cumm [facility] [...] [facility] ([place]) Blood 09/14/2023 8:55 AM CARD CLEANER 09/14/2023 8:57 AM CARD CLEANER us Roly Husain MD LAB BLOOD ORDERABLES Final Re sult [facility] ([place]) 1 [facility] Department [place] [address] * Basic metabolic panel (09/14/2023 8:55 AM CARD CLEANER) Pathologist [facility] Sodium 140 135 - 145 mmol/L [facility] ([place]) Potassium, pl 4.4 3.3 - 4.9 mmol/L [facility] ([place]) Chloride 101 97 - 110 mmol/L [facility] ([place]) CO2 30 22 - 32 mmol/L [facility] ([place]) Anion gap 10 2 - 15 mmol/L [facility] ([place]) BUN 14 6 - 25 mg/dL [facility] ([place]) Creatinine 0.81 0.60 - 1.10 mg/dL [facility] ([place]) Glucose 117 70 - 199 mg/dL [facility] ([place]) Comment: Interpretive Data Fasting glucose >/= [...] 2022. Calcium 9.9 8.5 - 10.3 mg/dL [facility] ([place]) Blood 09/14/2023 8:55 AM CARD CLEANER 09/14/2023 8:57 AM CARD CLEANER us Roly Husain MD LAB BLOOD ORDERABLES Final Re sult [facility] ([place]) 1 [facility] Department [place] [address] documented in this encounter Visit Diagnoses Diagnosis [...] intended for KVO.Indications:Typical atrial flutter (CMS/HCC) (HCC) sodium chloride 0.9% [...] (CMS/HCC) (HCC) New Bag 09/14/2023 10:01 AM CARD CLEANER 50 mL/hr 50 mL/hr documented in this encounter Discontinued Medications Medication [...] Recently Administered Medications Times are shown in CARD CLEANER. Scheduled Medication Order 09/12/2023 09/13/2023 09/14/2023 sodium [...] (CV) 1026 (Given - Provid er: Tiffany Diggs RN)1028 (Given - Provider: Tiffany Diggs RN) midazolam (VERSED) 1 mg/mL preservative free injection (CANCELED) Administer over 2 Minutes, Code/trauma/sedation medication, Starting on Tue09/14/23 at 1026, Intra-Procedure (CV) 1026 (Given - Provid er: Tiffany Diggs RN) sodium chloride 0.9% flush 0.5-20 mL 0.5-20 [...] Infusion - 0.9% Sodium Chloride 1 09/14/2023 fentaNYL (SUBLIMAZE) preserv ative free injection 1 09/14/2023 midazolam (VERSED) 1 mg/mL p reservative free injection 1 09/14/2023 sodium chloride 0.9% flush 0.5-20 mL 2 09/01 sodium chloride 0.9% infusion 1 09/14/2023 Nursing Count Last Ordered Date First Orde red Date TELEMETRY MONITORING 1 09/14/2023 Discharge Count Last Ordered Date First Orde red Date DISCHARGE PATIENT 1 09/14/2023 documented in this encounter Care Teams Applied Psychology Teacher Relationship Specialty Start Date End Date Tristan Watson MD [address] [place] [address] PCP - General Family Medicine 03/15/22 documented as of this encounter
--- OUTSIDE RECORDS SUMMARY | 2024-08-13 05:21 | XMS_ITS | Encounter Summary ---
Author Organization [facility] Healthcare Address [address] [place] [address] Care Team Providers Care Automotive Services Manager Name Role Phone Tristan Watson MD Primary Care Provider [phone] Encounter Details Date Type Department Care Team (Late st Contact Info) Description 09/07/2023 Orders Only [place] [employer] Psychologist at [address] [address] Aileen Burns MA Atrial fibrillation, [...] on file Legal Sex Female 11:52 PM JUNIOR ACCOUNT EXECUTIVE Gender Identity Female 09/15/2022 2:42 PM JUNIOR ACCOUNT EXECUTIVE Sexual Orientation Straight 09/15/2022 2: 42 PM JUNIOR ACCOUNT EXECUTIVE documented as of this encounter Progress Notes * Aileen Burns MA - 09/07/2023 3:00 PM CST ekg OR ACCOUNT EXECUTIVE documented in this encounter Plan of Treatment Not on file documented as of this encounter Procedures Procedure Name Priority Date/Time Associated Diagnosis Comments ECG 12-LEAD Routine 09/07/2023 Atrial fibrillation, unspecified type (HCC) documented in this encounter Results * ECG 12 lead (09/07/2023) Roly Husain MD ECG ORDERABLES Final Result documented in this encounter Visit Diagnoses Diagnosis Atrial fibrillation, unspecified type (HCC)- Primary documented in this encounter Care Teams Automotive Services Manager Relationship Specialty Start Date End [place] [address] PCP - General Family Medicine 03/15/22 documented as of this encounter
--- OUTSIDE RECORDS SUMMARY | 2024-08-13 05:22 | XMS_ITS | Encounter Summary ---
Author Organization [facility] Healthcare Address [address] [place] [address] Care Team Providers Care Industrial Tractor Driver Name Role Phone Tristan Watson MD Primary Care Provider [phone] Encounter Details Date Type Department Care Team (Latest Contact Info) Description 03/21/2023 9:22 AM CDT - 03/21/2023 11:59 PM CDT Hospital Encounter [address] [address] Acquired hypothyroidism; Benign hypertension; Pure hypercholesterolemia Discharge Disposition: Discharge to home or self care Social History Tobacco Use Types Packs/Day Years Used Date Smoking Tobacco: Never Smokeless Tobacco: Never Alcohol Use Standard Drinks/Week Comments Not Currently 0 (1 standard drink = 0.6 oz pur e alcohol) no recently PHQ-2 Answer Date Recorded PHQ-2 Total Score (If total score is 3 or more points, staff should administer the PHQ-9) 0 09/20/2022 Comments Unknown Sex and Gender Information Value Date Recorded Sex Assigned at Not on file Legal Sex Female 11:52 PM SENIOR IOS DEVELOPER Gender Identity Female 09/15/2022 2:42 PM SENIOR IOS DEVELOPER Sexual Orientation Straight 09/15/2022 2: 42 PM SENIOR IOS DEVELOPER documented as of this encounter Medications at Time of Discharge albuterol HFA (ProAir HFA) 90 mcg/actuation inhaler Inhale 2 puffs every 4 (four) hours as needed for shortness of breath As needed for wheezing 3 each 3 09/20/2022 3 atorvastatin (LIPITOR) 10 mg tablet TAKE 1/2 TABLET BY MOUTH EVERY DAY 45 tablet 3 07/29/2022 3 buPROPion SR (ZYBAN) 150 mg 12 hr tablet TAKE 1 TABLET(150 MG) BY MOUTH TWICE DAILY 180 tablet 3 08/04/2022 3 cloNIDine (CATAPRES) 0.1 mg tablet TAKE 1 TABLET(0.1 MG) BY MOUTH TWICE DAILY 180 tablet 3 09/20/2022 3 cyanocobalamin (Vitamin B-12) 500 mcg tabletIndication s:Prevention of Vitamin B12 Deficiency Take 1/2 tab mond thru frid and skip tue and 45 tablet 3 05/28/2021 3 FLUoxetine (PROzac) 40 mg capsule Take 1 capsule (40 mg total) by mouth daily 90 capsule 3 06/11/2022 3 fluticasone propion-salmeter oL (Advair Diskus) 250-50 mcg/dose diskus inhaler Inhale 1 puff 2 (two) times a day Rinse mouth with water after use to reduce aftertaste and incidence of candidiasis. Do not swallow. 3 each 3 07/02/2022 3 fluticasone propionate (FLONASE) 50 mcg/actuation nasal spray SHAKE LIQUID AND USE 2 SPRAYS IN EACH NOSTRIL DAILY 48 g 3 12/15/2022 3 furosemide (LASIX) 20 mg tablet Take 1 tablet (20 mg total) by mouth 2 (two) times a day 180 tablet 3 06/11/2022 3 HYDROcodone-acet aminophen ([place]) 5-325 mg per tabletIndication s:Pain Take 1 tablet by mouth every 6 hours as needed for pain 40 tablet 03/08/2022 3 irbesartan (AVAPRO) 300 mg tablet TAKE 1 TABLET BY MOUTH EVERY DAY 90 tablet 3 08/11/2022 3 loratadine (CLARITIN) 10 mg tablet TAKE 1 TABLET BY MOUTH DAILY 90 tablet 1 12/14/2022 3 psyllium (MetamuciL) 0.4 gram capsule 1 capsule (0.4 g total) daily 12/30/2022 3 documented as of this encounter Discharge Disposition Disposition Code Departure Means Destination Discharge to home or self care documented in this encounter Plan of Treatment Not on file documented as of this encounter Procedures Procedure Name Priority Date/Time Associated Diagnosis Comments EGFR Routine 03/21/2023 9:22 AM CDT Benign hypertension Pure hypercholesterolemia DIFFERENTIAL AUTO Routine 03/21/2023 9:2 2 AM CDT Benign hypertension Pure hypercholesterolemia THYROID FUNCTION CASCADE Routine 03/21/2023 9:22 AM CDT Acquired hypothyroidism CBC WITH AUTO DIFFERENTIAL Routine 03/21/2023 9:22 AM CDT Benign hypertension Pure hypercholesterolemia LIPID PANEL Routine 03/21/2023 9:22 AM CDT Benign hypertension Pure hypercholesterolemia COMPREHENSIVE METABOLIC PANEL Routine 03/21/2023 9:22 AM CDT Benign hypertension Pure hypercholesterolemia documented in this encounter Results * eGFR (03/21/2023 9:22 AM CDT) eGFR 87 mL/min/1. 73 m2 [facility] Comment: Interpretive Data Reference Interval Normal ?>/= [...] of Race in Diagnosing Kidney Disease, JASN 202). The CKD-EPI equation should not be used for patients with unstable renal function and has not been validated in children and those over 70. Current interpretive data was last reviewed 2021. Blood 03/21/2023 9:22 AM CDT 03/21/2023 3:58 PM CDT us Tristan aWtson MD LAB BLOOD ORDERABLES Lisa yair Result [facility] [address] Department [place] [address] * (ABNORMAL) Differential, auto (03/21/2023 9:22 AM CDT) Neutrophil abs 6.7(H) 1.7 - 6.5 K/cumm [facility] Imm gran abs 0.1 0.0 - 0.1 K/cumm [facility] Lymphocyte abs 2.5 0.8 - 3.3 K/cumm [facility] Monocyte abs 0.7 0.2 - 0.8 K/cumm [facility] Eosinophil abs 0.0 0.0 - 0.5 K/cumm [facility] Basophil abs 0.1 0.0 - 0.1 K/cumm [facility] Neutrophil pct 66.4 % [facility] Comment: Interpretive Data Percent cell count reference ranges are not reported, since discordance with absolute values may lead to misinterpretation of CBC data. Current Interpretive Data was last revised on 2017. Imm gran pct 0.5 % [facility] Comment: Interpretive Data Percent cell count reference ranges are not reported, since discordance with absolute values may lead to misinterpretation of CBC data. Current Interpretive Data was last revised on 2017. Lymphocyte pct 25.0 % [facility] Comment: Interpretive Data Percent cell count reference ranges are not reported, since discordance with absolute values may lead to misinterpretation of CBC data. Current Interpretive Data was last revised on 2017. Monocyte pct 6.9 % [facility] Comment: Interpretive Data Percent cell count reference ranges are not reported, since discordance with absolute values may lead to misinterpretation of CBC data. Current Interpretive Data was last revised on 2017. Eosinophil pct 0.1 % [facility] Comment: Interpretive Data Percent cell count reference ranges are not reported, since discordance with absolute values may lead to misinterpretation of CBC data. Current Interpretive Data was last revised on 2017. Basophil pct 1.1 % [facility] Comment: Interpretive Data Percent cell count reference ranges are not reported, since discordance with absolute values may lead to misinterpretation of CBC data. Current Interpretive Data was last revised on 2017. Blood 03/21/2023 9:22 AM CDT 03/21/2023 3:43 PM CDT us Tristan Watson MD LAB BLOOD ORDERABLES Lisa mazariegos Result [facility] [id number] Department [place] [address] * Lipid panel (03/21/2023 9:22 AM CDT) Cholesterol 150 30 - 199 mg/dL [facility] Comment: Interpretive Data Ages < or = 19 years ??Acceptable: ? <170 mg/dL ??Borderline high: ??170-199 mg/dL ??High: ? >or= 200 mg/dL Ages > or = 20 years ??Desirable: ?<200 mg/dL ??Borderline high: ??200-239 mg/dL ??High: ? >or= 240 mg/dL Literature References: 1. Expert Panel on Integrated Guidelines for Cardiovascular Health and Risk Reduction in Children and Adolescents. Pediatrics 2011;128:S213 2. NCEP Expert Panel. Circulation 2004;110:227 Current Interpretive Data was last revised on 2018. Triglycerides 61 <=149 mg/dL [facility] Comment: Interpretive Data Ages < or = 9 years ??Acceptable: ? <75 mg/dL ??Borderline high: ??75-99 mg/dL ??High: ? >or= 100 mg/dL Ages 10 to 20 years ??Acceptable: ? <90 mg/dL ??Borderline high: ??90-129 mg/dL ??High: ? >or= 130 mg/dL Ages > or = 20 years ??Desirable: ?<150 mg/dL ??Borderline high: ??150-199 mg/dL ??High: ? 200-499 mg/dL ?Very high: ?? >or= 499 mg/dL Literature References: 1. Expert Panel on Integrated Guidelines for Cardiovascular Health and Risk Reduction in Children and Adolescents. Pediatrics 2011;128:S213 2. NCEP Expert Panel. Circulation 2004;110:227 Current Interpretive Data was last revised on 2018. HDL 76 >=40 mg/dL [facility] Comment: Interpretive Data Ages < or = 19 years ??Acceptable: ? >45 mg/dL ??Borderline low: ?? 40-45 mg/dL ??Low: ? <40 mg/dL Ages > or = 20 years ??Desirable: ?>or= 60 mg/dL ??Low: ? <40 mg/dL Literature References: 1. Expert Panel on Integrated Guidelines for Cardiovascular Health and Risk Reduction in Children and Adolescents. Pediatrics 2011;128:S213 2. NCEP Expert Panel. Circulation 2004;110:227 Current Interpretive Data was last revised on 2018. LDL, calculated 62 <=129 mg/dL [facility] Comment: Interpretive Data Ages < or = 19 years ??Acceptable: ? <110 mg/dL ??Borderline high: ??110-129 mg/dL ??High: ?>or= 130 mg/dL Ages > or = 20 years ??Optimal: ? <100 mg/dL ??Near optimal: ?100-129 mg/dL ??Borderline high: ?? 130-159 mg/dL ??High: ?>160 mg/dL Literature References: 1. Expert Panel on Integrated Guidelines for Cardiovascular Health and Risk Reduction in Children and Adolescents. Pediatrics 2011;128:S213 2. NCEP Expert Panel. Circulation 2004;110:227 Current Interpretive Data was last revised on 2018. Non-HDL Cholesterol 74 mg/dL [facility] Comment: Interpretive Data Ages < or = 19 years ??Acceptable: ?<120 mg/dL ??Borderline high: ??120-144 mg/dL ??High: ?>145 mg/dL Ages > or = 20 years ??When triglycerides are >200 mg/dL, Non-HDL cholesterol is a secondary target of ? therapy with treatment goals that are 30 mg/dL greater than the LDL cholesterol target. ? Literature References: 1. Expert Panel on Integrated Guidelines for Cardiovascular Health and Risk Reduction in Children and Adolescents. Pediatrics 2011;128:S213 2. NCEP Expert Panel. Circulation 2004;110:227 Current Interpretive Data was last revised on 2018. Chol/HDL ratio 2 [facility] Blood 03/21/2023 9:22 AM CDT 03/21/2023 3:43 PM CDT us Tristan Watson MD LAB BLOOD ORDERABLES Lisa mazariegos Result [facility] [address] Department [place] [address] * (ABNORMAL) Comprehensive metabolic panel (03/21/2023 9:22 AM CDT) Sodium 138 135 - 145 mmol/L [facility] Potassium, pl 4.2 3.3 - 4.9 mmol/L [facility] Chloride 103 97 - 110 mmol/L [facility] CO2 25 22 - 32 mmol/L [facility] Anion gap 10 2 - 15 mmol/L [facility] BUN 16 6 - 25 mg/dL [facility] Creatinine 0.72 0.60 - 1.10 mg/dL [facility] Glucose 104 70 - 199 mg/dL [facility] Comment: Interpretive Data Fasting glucose >/= 126 [...] interpretive data was last revised 2022. Calcium 9.7 8.5 - 10.3 mg/dL [facility] Bilirubin, total 0.5 0.1 - 1.2 mg/dL [facility] Protein, pl 7.4 6.5 - 8.5 g/dL [facility] Albumin 3.7 3.5 - 5.0 g/dL [facility] Alk phos 167(H) 40 - 130 Units/L [facility] ALT 11 7 - 45 Units/L [facility] AST 23 10 - 45 Units/L [facility] Blood 03/21/2023 9:22 AM CDT 03/21/2023 3:43 PM CDT Tristan Watson MD LAB BLOOD ORDERABLES Lisa mazariegos Result [facility] [id number] Department [place] [address] * (ABNORMAL) CBC with auto differential (03/21/2023 9:22 AM CDT) Pathologist [facility] WBC 10.0(H) 3.8 - 9.9 K/cumm [facility] Hgb 14.9 11.9 - 15.5 g/dL [facility] Hct 46.4(H) 35.6 - 45.5 % [facility] Plt 257 150 - 400 K/cumm [facility] MPV 9.7 9.1 - 12.3 fL [facility] RBC 4.68 3.90 - 5.20 M/cumm [facility] MCV 99.1(H) 81.3 - 96.4 fL [facility] MCH 31.8 27.1 - 33.3 pg [facility] MCHC 32.1(L) 32.3 - 35.7 g/dL [facility] RDW CV 14.6 11.1 - 14.9 % [facility] RDW SD 54.0(H) 35.7 - 48.1 fL [facility] NRBC abs 0.00 0.00 - 0.01 K/cumm [facility] Blood 03/21/2023 9:22 AM CDT 03/21/2023 3:43 PM CDT us Tristan Watson MD LAB BLOOD ORDERABLES Lisa l Result [facility] [address] [place] [address] * TSH reflex to free T4 (03/21/2023 9:22 AM CDT) TSH 4.13 0.30 - 4.20 mcIUnit/mL [facility] Blood 03/21/2023 9:22 AM CDT 03/21/2023 3:43 PM CDT us Tristan Watson MD LAB BLOOD ORDERABLES Lisa l Result Performing Organization Address City/[facility]/ZIP Co de Phone Number [facility] [address] [place] [address] documented in this encounter Visit Diagnoses Diagnosis Acquired hypothyroidism Unspecified hypothyroidism Benign hypertension Essential hypertension, benign Pure hypercholesterolemia documented in this encounter Care Teams Industrial Tractor Driver Relationship Specialty Start Date End Date Tristan [place] [address] PCP - General Family Medicine 03/15/22 documented as of this encounter
--- OUTSIDE RECORDS SUMMARY | 2024-08-13 05:22 | XMS_ITS | Encounter Summary ---
Author Organization [facility] Healthcare Address [address] [place] [address] Care Team Providers Care Bleaching Supervisor Name Role Phone Tristan Watson MD Primary Care Provider [phone] Encounter Details Date Type Department Care Team (Latest Contact Info) Description 09/15/2022 8:59 AM REED OR WIND INSTRUMENT TUNER - 09/15/2022 11:59 PM REED OR WIND INSTRUMENT TUNER Hospital Encounter [address] [address] Benign hypertension; Mild persistent asthma without complication Discharge Disposition: Discharge to home or self care Social History Tobacco Use Types Packs/Day Years Used Date Smoking Tobacco: Never Smokeless Tobacco: Never Alcohol Use Standard Drinks/Week Comments Not Currently 0 (1 standard drink = 0.6 oz pur e alcohol) no recently PHQ-2 Answer Date Recorded PHQ-2 Total Score (If total score is 3 or more points, staff should administer the PHQ-9) 0 11/26/2021 Comments Unknown Sex and Gender Information Value Date Recorded Sex Assigned at Not on file Legal Sex Female 11:52 PM REED OR WIND INSTRUMENT TUNER Gender Identity Female 09/15/2022 2:42 PM REED OR WIND INSTRUMENT TUNER Sexual Orientation Straight 09/15/2022 2: 42 PM REED OR WIND INSTRUMENT TUNER documented as of this encounter Medications at Time of Discharge albuterol HFA (ProAir HFA) 90 mcg/actuation inhaler Inhale 2 puffs every 4 (four) hours as needed for shortness of breath As needed for wheezing 3 each 3 05/28/2021 3 atorvastatin (LIPITOR) 10 mg tablet TAKE 1/2 TABLET BY MOUTH EVERY DAY 45 tablet 3 07/29/2022 3 buPROPion SR (ZYBAN) 150 mg 12 hr tablet TAKE 1 TABLET(150 MG) BY MOUTH TWICE DAILY 180 tablet 3 08/04/2022 3 cloNIDine (CATAPRES) 0.1 mg tablet TAKE 1 TABLET(0.1 MG) BY MOUTH TWICE DAILY 180 tablet 3 05/28/2021 3 cyanocobalamin (Vitamin B-12) 500 mcg tabletIndication [...] fluticasone propionate (FLONASE) 50 mcg/actuation nasal spray Administer 2 sprays into each nostril daily 48 g 3 05/28/2021 3 furosemide (LASIX) 20 mg tablet Take 1 tablet (20 mg total) by mouth 2 (two) times a day 180 tablet 3 06/11/2022 3 HYDROcodone-acet aminophen ([place]) 5-325 mg per tabletIndication s:Pain Take 1 tablet by mouth every 6 hours as needed for pain 40 tablet 03/08/2022 3 irbesartan (AVAPRO) 300 mg tablet TAKE 1 TABLET BY MOUTH EVERY DAY 90 tablet 3 08/11/2022 3 loratadine (CLARITIN) 10 mg tablet TAKE 1 TABLET BY MOUTH DAILY 90 tablet 09/01/2022 3 documented as of this encounter Discharge Disposition Disposition Code Departure Means Destination Discharge to home or self care documented in this encounter Plan of Treatment Not on file documented as of this encounter Procedures Procedure Name Priority Date/Time Associated Diagnosis Comments EGFR Routine 09/15/2022 8:59 AM REED OR WIND INSTRUMENT TUNER Benign hypertension Mild persistent asthma without complication DIFFERENTIAL AUTO Routine 09/15/2022 8:5 9 AM REED OR WIND INSTRUMENT TUNER Benign hypertension Mild persistent asthma without complication CBC WITH AUTO DIFFERENTIAL Routine 09/15/2022 8:59 AM REED OR WIND INSTRUMENT TUNER Benign hypertension Mild persistent asthma without complication COMPREHENSIVE METABOLIC PANEL Routine 09/15/2022 8:59 AM REED OR WIND INSTRUMENT TUNER Benign hypertension Mild persistent asthma without complication documented in this encounter Results * eGFR (09/15/2022 8:59 AM REED OR WIND INSTRUMENT TUNER) [facility] eGFR 92 mL/min/1. 73 m2 [facility] Comment: Interpretive [...] interpretive data was last reviewed 2021. Blood 09/15/2022 8:59 AM REED OR WIND INSTRUMENT TUNER 09/15/2022 2:49 PM REED OR WIND INSTRUMENT TUNER us Tristan Watson MD LAB BLOOD ORDERABLES Lisa mazariegos Result [facility] [address] Department [place] [address] * Differential, auto (09/15/2022 8:59 AM REED OR WIND INSTRUMENT TUNER) Neutrophil abs 6.2 1.7 - 6.5 K/cumm [facility] Imm gran abs 0.1 0.0 - 0.1 K/cumm [facility] Lymphocyte abs 2.3 0.8 - 3.3 K/cumm [facility] Monocyte abs 0.6 0.2 - 0.8 K/cumm [facility] Eosinophil abs 0.0 0.0 - 0.5 K/cumm [facility] Basophil abs 0.1 0.0 - 0.1 K/cumm [facility] Neutrophil pct 66.3 % [facility] Comment: Interpretive Data Percent cell count reference ranges are not reported, since discordance with absolute values may lead to misinterpretation of CBC data. Current Interpretive Data was last revised on 2017. Imm gran pct 0.9 % [facility] Comment: Interpretive Data Percent cell count reference ranges are not reported, since discordance with absolute values may lead to misinterpretation of CBC data. Current Interpretive Data was last revised on 2017. Lymphocyte pct 24.9 % [facility] Comment: Interpretive Data Percent cell count reference ranges are not reported, since discordance with absolute values may lead to misinterpretation of CBC data. Current Interpretive Data was last revised on 2017. Monocyte pct 6.8 % [facility] Comment: Interpretive Data Percent cell count reference ranges are not reported, since discordance with absolute values may lead to misinterpretation of CBC data. Current Interpretive Data was last revised on 2017. Eosinophil pct 0.0 % [facility] Comment: Interpretive Data Percent cell count reference ranges are not reported, since discordance with absolute values may lead to misinterpretation of CBC data. Current Interpretive Data was last revised on 2017. Basophil pct 1.1 % [facility] Comment: Interpretive Data Percent cell count reference ranges are not reported, since discordance with absolute values may lead to misinterpretation of CBC data. Current Interpretive Data was last revised on 2017. Blood 09/15/2022 8:59 AM REED OR WIND INSTRUMENT TUNER 09/15/2022 2:43 PM REED OR WIND INSTRUMENT TUNER Tristan Watson MD LAB BLOOD ORDERABLES Lisa l Result Performing Organization Address [facility]/ZIP Co de Phone Number [facility] [address] [place] [address] * (ABNORMAL) CBC with auto differential (09/15/2022 8:59 AM REED OR WIND INSTRUMENT TUNER) WBC 9.3 3.8 - 9.9 K/cumm [facility] Hgb 15.2 11.9 - 15.5 g/dL [facility] Hct 47.7(H) 35.6 - 45.5 % [facility] Plt 278 150 - 400 K/cumm [facility] MPV 10.0 9.1 - 12.3 fL [facility] RBC 4.84 3.90 - 5.20 M/cumm [facility] MCV 98.6(H) 81.3 - 96.4 fL [facility] MCH 31.4 27.1 - 33.3 pg [facility] MCHC 31.9(L) 32.3 - 35.7 g/dL [facility] RDW CV 14.6 11.1 - 14.9 % [facility] RDW SD 52.9(H) 35.7 - 48.1 fL [facility] NRBC abs 0.00 0.00 - 0.01 K/cumm [facility] Blood 09/15/2022 8:59 AM REED OR WIND INSTRUMENT TUNER 09/15/2022 2:43 PM REED OR WIND INSTRUMENT TUNER Tristan Watson MD LAB BLOOD ORDERABLES Lisa l Result Performing Organization Address City/[facility]/ZIP Co de Phone Number [facility] [address] [address] Department of [employer] [place], [place] [id number] * (ABNORMAL) Comprehensive metabolic panel (09/15/2022 8:59 AM REED OR WIND INSTRUMENT TUNER) Sodium 137 135 - 145 mmol/L [facility] Potassium, pl 4.6 3.3 - 4.9 mmol/L [facility] Chloride 103 97 - 110 mmol/L [facility] CO2 22 22 - 32 mmol/L [facility] Anion gap 12 2 - 15 mmol/L [facility] BUN 19 8 - 25 mg/dL [facility] Creatinine 0.65 0.60 - 1.10 mg/dL [facility] Glucose 105 70 - 199 mg/dL [facility] Comment: [...] - 1.2 mg/dL [facility] Protein, pl 7.3 6.5 - 8.5 g/dL [facility] Albumin 3.6 3.5 - 5.0 g/dL [facility] Alk phos 157(H) 40 - 130 Units/L [facility] ALT 10 7 - 45 Units/L [facility] AST 23 10 - 45 Units/L [facility] Blood 09/15/2022 8:59 AM REED OR WIND INSTRUMENT TUNER 09/15/2022 2:43 PM REED OR WIND INSTRUMENT TUNER us Tristan Watson MD LAB BLOOD ORDERABLES Lisa l Result [facility] [address] Department [place] [address] documented in this encounter Visit Diagnoses Diagnosis Benign hypertension Essential hypertension, benign Mild persistent asthma without complication documented in this encounter Care Teams Bleaching Supervisor Relationship Specialty Start Date End Date Tristan [place] [address] PCP - General Family Medicine 03/15/22 documented as of this encounter
--- OUTSIDE RECORDS SUMMARY | 2024-08-13 05:22 | XMS_ITS | Encounter Summary ---
Author Organization [facility] Healthcare Address [address] [place] [address] Care Team Providers Care Photogravure Press Operator Name Role Phone Tristan Watson MD Primary Care Provider [phone] Reason for Visit * Reason Comments Vomiting Pt c/o nausea vomiti ng , diarrhea * Auth/Cert (Routine) Specialty Diagnoses / Procedures Referred By Contac t Referred To Contact Diagnoses Cystitis Elevated troponin Vomiting and diarrhea Procedures na Referral ID Status Reason Start Date Expiration Date Visits Re quested Visits Authorized [id number] 1 1 Encounter Details Date Type Department Care Team (Latest Contact Info) Description 07/16/2023 9:46 PM CONCRETE TESTER - 07/29/2023 5:40 PM CONCRETE TESTER Hospital Encounter [facility] IMU [address] [place] [address] Silvia Villafana MD [address] [place] [address] [place] [address] Maciel Jean MD [address] [facility] [address] [place] [address] Joycelyn Moseley MD [address] [place] [address] Kajal Castañeda MD [address] [place] [address] [place] [address] Karen Zambrano MD [address] [place] [address] Krzysztof Sarah MD [address] [place] [address] NSTEMI (non-ST elevated myocardial infarction) (CMS/HCC) ([facility]) (Primary Dx); Vomiting and diarrhea; Cystitis; Elevated troponin; Takotsubo cardiomyopathy [I51.81]; Acquired hypothyroidism; Class 3 severe obesity due to excess calories with serious comorbidity and body mass index (BMI) of 50.0 to 59.9 in adult ([facility]); New onset atrial fibrillation (CMS/HCC) ([facility]) Discharge Disposition: Discharge to long term facility Social History Tobacco Use Types Packs/Day Years [...] on file Legal Sex Female 11:52 PM CONCRETE TESTER Gender Identity Female 09/15/2022 2:42 PM CONCRETE TESTER Sexual Orientation Straight 09/15/2022 2: 42 PM CONCRETE TESTER documented as of this encounter Last Filed Vital Signs Vital Sign Reading Time Taken Comments Blood Pressure 119/49 07/29/2023 3:26 PM CONCRETE TESTER Pulse 65 07/29/2023 3:26 PM CONCRETE TESTER Temperature 37.1 ??C (98.8 ??F) 07/29/2023 3:26 PM CS T Respiratory Rate 20 07/29/2023 3:26 PM CONCRETE TESTER Oxygen Saturation 98% 07/29/2023 3:26 PM CONCRETE TESTER Inhaled Oxygen Concentration - - Weight 131.8 kg (290 lb 9.1 oz) 07/29/2023 6:00 AM CONCRETE TESTER Height 152.4 cm (5') 07/18/2023 9:00 AM CONCRETE TESTER Body Mass Index 56.75 07/18/2023 9:00 AM CONCRETE TESTER documented in this encounter Discharge Summaries * Krzysztof Sarah MD - 07/29/2023 12:06 PM CST Inpatient Discharge Summary BRIEF OVERVIEW Admitting Provider: Roly Husain MD Discharge Provider: Krzysztof Sarah MD Primary Care Physician at Discharge: Tristan Watson MD [phone] Admission Date: 07/16/2023 Discharge Date: 07/29/2023 Admission Location: [facility] Problems/Diagnoses: Acute hypoxic respiratory failure Troponin elevation 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 She was previously admitted to intensive care unit. She was diagnosed as takotsubos cardiomyopathy, new onset atrial fibrillation, hyponatremia, hematuria 07/26 patient lying in the bed, appears comfortable, plan of care discussed with at bedside 07/27 lying in the bed, appears comfortable in a [place] [facility] facility placement planned 07/28 patient lying in the bed, talks minimally, patient to be discharged to skilled facility, social work or working on placement, overall prognosis guarded 07/29 patient lying in the bed, appears comfortable, cleared for discharge as per Cardiology to skilled facility, outpatient follow-up with Cardiology, patient will be discharged with LifeVest, overall prognosis poor. I discussed this with the on the phone, he is aware, will maintain necessary follow-ups. 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 Lasix after discussion with Cardiology, LifeVest upon discharge outpatient monitoring for CBC/CMP New onset atrial fibrillation 07/26 continues on amiodarone, Eliquis, Coreg 07/27 continues above medications 07/29 as above Hematuria Leukocytosis Indwelling Stafford catheter 07/26 monitor CBC 07/27 WBC count of 10.7, continue monitoring 07/28 WBC count 11.5, hemoglobin of 11.9, continue monitor 07/29 WBC count improved slightly to 10.5, outpatient follow-up with Urology Depression Chronic pain syndrome 07/26 continues on Prozac Discharge diagnosis Acute hypoxic respiratory failure Troponin elevation 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 Cardiomyopathy Atrial fibrillation Hematuria Stafford catheter Depression Active Issues Requiring Follow-up: As above Test Results Pending at Discharge: Operative Procedures Performed: Procedure(s): LEFT HEART CATHETERIZATION WITH CORONARY ANGIOGRAPHY AND WITH OR WITHOUT LEFT VENTRICULOGRAM [id number] Other Procedures: Pertinent Test Results: Discharge Details Physical Exam at Discharge: Discharge Condition: stable Pulse: 66 Resp: 18 BP: (!) 120/42 Temp: 36.4 ??C (97.5 ??F) Weight: 131.8 kg (290 lb 9.1 oz) Pertinent Exam Findings at Discharge: HEENT: NC Atraumatic , Sclera white, pupils reactive Skin: No rash, jaundice Neck: Supple, no thyromegaly Chest: breath sounds are decreased bilaterally Heart: regular rate and rhythm no murmur no clicks Abdomen: Morbid obesity Musculoskeletal : Lying in the bed Ext: No clubbing , pedal edema. Neurological : No weakness, no focal deficit. Mental status: Awake and alert, answering questions appropriately Discharge Disposition: Discharge to SNF Code Status at Discharge: Limited Discharge Instructions: Diet Instructions Adult Discharge Diet Diet Type: Return to previous diet Continue to follow a Low Sodium diet and limit sodium intake to less than 2,000mg per day. Avoid foods that are high sources of sodium, such as fast foods, fried/breaded foods, pickled foods, canned goods, deli meats and gravies/sauces. Use alternatives to season foods such as Mrs. MENDOSA and other he rbs. Additional resources are available online from the [employer] at www.heart.org/en/healthy-living/healthy-eating Oral nutritional supplement 2 - 3 x daily until intakes consistently adequate. If poor intakes and/or unintended weight loss occur on discharge follow up with primary care physician. Call [facility] Dietitian's office at [phone] for questions about your diet. If interested in nutrition counseling, ask your doctor for referral and call [phone] to make an appointment. Discharge Medications: Current Medications TAKE these medications albuterol HFA 90 mcg/actuation inhaler Inhale 2 puffs every 4 (four) hours as needed for shortness of breath As needed for wheezing Commonly known as: ProAir HFA * amiodarone 200 mg tablet Take 1 tablet (200 mg total) by mouth 2 (two) times a day for 8 doses Commonly known as: PACERONE * amiodarone 200 mg tablet Take 1 tablet (200 mg total) by mouth daily Commonly known as: PACERONE Start taking on: August 02, 2023 apixaban 2.5 mg tablet Take 1 tablet (2.5 mg total) by mouth every 12 (twelve) hours For: VTE Prophylaxis, atrial fibrillation Commonly known as: ELIQUIS atorvastatin 10 mg tablet TAKE 1/2 TABLET BY MOUTH EVERY DAY Commonly known as: LIPITOR buPROPion SR 150 mg 12 hr tablet Take 1 tablet (150 mg total) by mouth 2 (two) times a day Commonly known as: ZYBAN carvediloL 3.125 mg tablet Take 1 tablet (3.125 mg total) by mouth 2 (two) times a day with meals Commonly known as: COREG famotidine 20 mg tablet Take 1 tablet (20 mg total) by mouth daily Commonly known as: PEPCID Start taking on: July 30, 2023 FLUoxetine 40 mg capsule Take 1 capsule (40 mg total) by mouth daily For: anxiousness associated with depression, disorder characterized by stiff, tender & painful muscles Commonly known as: PROzac Start taking on: July 30, 2023 fluticasone propion-salmeteroL 250-50 mcg/dose diskus inhaler Inhale 1 puff 2 (two) times a day Rinse mouth with water after use to reduce aftertaste and incidence of candidiasis. Do not swallow. Commonly known as: Advair Diskus furosemide 40 mg tablet Take 1 tablet (40 mg total) by mouth daily Commonly known as: LASIX Start taking on: July 30, 2023 miconazole 2 % powder Apply topically 2 (two) times a day potassium, sodium phosphates 280-160-250 mg powder in packet Take 1 packet by mouth 3 (three) times a day before meals for 1 dose Commonly known as: PHOS-NAK sacubitriL-valsartan 24-26 mg tablet Take 1 tablet by mouth 2 (two) times a day For: chronic heart failure Commonly known as: ENTRESTO spironolactone 25 mg tablet Take 1 tablet (25 mg total) by mouth daily Commonly known as: ALDACTONE Start taking on: July 30, 2023 * This list has 2 medication(s) that are the same as other medications prescribed for you. Read the directions carefully, and ask your doctor or other care provider to review them with you. Outpatient Follow-Up: Future Appointments Date Time Provider Department Center 08/17/2023 2:15 PM Roly Husain MD [facility] CAR 122 PSA 09/21/2023 11:30 AM Tristan Watson MD [facility] Contact Information for Follow-ups Tristan Watson MD Specialty: Family Medicine Relationship: [place] [address] Next Steps: Follow up Instructions: Follow-up PCP 4-7 days, recommend follow-up with Cardiology 1 week, LifeVest upon discharge, follow-up with Urology regarding chronic Stafford catheter as necessary, CBC/CMP in 4-7 days Questions: Instructions for follow-up (appointment date and time): Follow-up PCP 4-7 days, recommend follow-upwith Cardiology 1 week, LifeVest upon discharge, follow-up with Urology regarding chronic Stafford catheter as necessary, CBC/CMP in 4-7 days To provider: TRISTAN WATSON RETE TESTER documented in this encounter Discharge Instructions * Discharge Instructions* Elizabeth Dunn RN - 07/18/2023 4:07 PM CONCRETE TESTER Instructions for going home after your Cardiac Catheterization Care for the Catheter Insertion Site Your procedure may be performed in the femoral artery in the groin (the area at the top of your thigh) or in the radial artery in your arm. When you go home, there will be a bandage over the catheterinsertion site. The morning after your procedure, you may take the dressing off. The easiest way to do this is whenyou are showering, get the tape and dressing wet and remove it. After the bandage is removed, cover the area with a small adhesive bandage. It is normal for the catheter insertion site to be black and blue for a couple of days. There may also be a small lump (about the size of a pea) at the site. Wash the catheter insertion site at least once daily with soap and water. Place soapy water on yourhand or washcloth and gently wash the insertion site; do not rub. Keep the area clean and dry when you are not showering. Do not use creams, lotions, or ointment on the wound site. Wear loose clothes and loose underwear. Do not take a bath, tub soak, go in a Jacuzzi, or swim in a pool or garrett for one week after the procedure. Notify your physician if you experience (numbness in your leg or arm; severe chills or fever of 100.5 degrees F; redness, swelling, draining or a foul odor from the procedure or IV site; pain that will not go away) For radial cath Do not participate in strenuous activities for 3 days after the procedure. This includes most sports - golfing, tennis, and bowling. Avoid lifting over 10 pounds with the affected arm for 3 days. Avoid bending your wrist (like for eating) for the 24 hours post procedure. Gradually increase your activities until you reach your normal activity level within 3 days after the procedure. Additional instructions: Be sure to drink eight to ten glasses of clear fluids (water is preferred) to flush the contrast material from your system. You may resume driving 24 hours after the procedure. Do not drink alcoholic beverages for 24 hours post procedure. Avoid sexual activity for 5 days. It is important for you to be committed to leading a heart-healthy lifestyle. Your health care teamcan help you achieve your goals, but it is up to you to take your medications as prescribed, make dietary changes, quit smoking, exercise regularly, keep your follow-up appointments and be an active member of the treatment team. Medications Review your medications with your doctor before you go home. Depending on the results of your procedure, your doctor may prescribe new medications. If you have diabetes, your doctor may adjust your diabetes medications for one to two days after your procedure. Follow up Follow up with your Primary Care Physician in 2-3 weeks and Tubing Machine Tender in 4-6 weeks. Moderate Sedation WHAT YOU NEED TO KNOW: [...] remember to ask them during your visits. CODE STATUS: limited-no CPR ALLERGIES: quinapril WEIGHT: 131.8kg ISOLATION: no DIET: 4gm Na diet, ensure high protein with breakfast and dinner and magic cup with all meals FINGERSTICKS: no ACTIVITY: max assist/mechanical lift OXYGEN: 1.5L STAFFORD CATHETER: no DRESSING CHANGES: no PHYSICAL THERAPY: yes OCCUPATIONAL THERAPY: yes THANK YOU for choosing our team to provide your health care. Your HEALTH AND SAFETY are important to us. We hope you feel your care on IMU was ALWAYS EXCELLENT! Please call IMU at [phone] if you have any questions regarding your care. Wishing you continued improvement during your recovery. Your Intermediate Care Unit Team RETE TESTER RETE TESTER RETE TESTER RETE TESTER RETE TESTER RETE TESTER * Discharge Instr - Claudia* Olive Yoon - 07/20/2023 2:09 PM CONCRETE TESTER Continue to follow a Low Sodium diet and limit sodium intake to less than 2,000mg per day. Avoid foods that are high sources of sodium, such as fast foods, fried/breaded foods, pickled foods, canned goods, deli meats and gravies/sauces. Use alternatives to season foods such as Mrs. DEONDRE and other he rbs. Additional resources are available online from the [place] [employer] at www.heart.org/en/healthy-living/healthy-eating Oral nutritional supplement 2 - 3 x daily until intakes consistently adequate. If poor intakes and/or unintended weight loss occur on discharge follow up with primary care physician. Call [facility] Dietitian's office at [phone] for questions about your diet. If interested in nutrition counseling, ask your doctor for referral and call [phone] to make an appointment. RETE TESTER RETE TESTER * Appointments* Argelia Kam RN - 07/19/2023 3:45 PM CONCRETE TESTER You have a new patient appointment in the [facility] office with Dr. Rodrigue Gonzalez 2023 @ 2:15 p.m. The office is located directly across from the hospital in [address], [address]. RETE TESTER documented in this encounter Medications at Time [...] Refills Last Filled Start Date End Date furosemide (LASIX) 40 mg tablet Take 1 tablet (40 mg total) by mouth daily 30 tablet 1 07/30/2023 miconazole 2 % powder Apply topically 2 (two) times a day 70 g 07/29/2023 spironolactone (ALDACTONE) 25 mg tablet Take 1 tablet (25 mg total) by mouth daily 30 tablet 1 07/30/2023 4 sacubitriL-valsart an (ENTRESTO) 24-26 mg tabletIndications: chronic heart failure Take 1 tablet by mouth 2 (two) times a day 60 tablet 07/29/2023 4 potassium, sodium phosphates (PHOS-NAK) 280-160-250 mg powder in packet Take 1 packet by mouth 3 (three) times a day before meals for 1 dose 1 packet 07/29/2023 3 FLUoxetine (PROzac) 40 mg capsuleIndications :Anxiety with Depression,Fibromy algia Take 1 capsule (40 mg total) by mouth daily 30 capsule 1 07/30/2023 4 famotidine (PEPCID) 20 mg tablet Take 1 tablet (20 mg total) by mouth daily 30 tablet 1 07/30/2023 4 carvediloL (COREG) 3.125 mg tablet Take 1 tablet (3.125 mg total) by mouth 2 (two) times a day with meals 60 tablet 1 07/29/2023 4 apixaban (ELIQUIS) 2.5 mg tabletIndications: VTE Prophylaxis,atrial fibrillation Take 1 tablet (2.5 mg total) by mouth every 12 (twelve) hours 60 tablet 1 07/29/2023 4 amiodarone (PACERONE) 200 mg tablet Take 1 tablet (200 mg total) by mouth daily 30 tablet 1 08/02/2023 4 amiodarone (PACERONE) 200 mg tablet Take 1 tablet (200 mg total) by mouth 2 (two) times a day for 8 doses 8 tablet 07/29/2023 4 spironolactone (ALDACTONE) 25 mg tablet Take 1 tablet (25 mg total) by mouth daily 30 tablet 1 07/30/2023 3 sacubitriL-valsart an (ENTRESTO) 24-26 mg tabletIndications: chronic heart failure Take 1 tablet by mouth 2 (two) times a day 60 tablet 07/29/2023 3 potassium, sodium phosphates (PHOS-NAK) 280-160-250 mg powder in packet Take 1 packet by mouth 3 (three) times a day before meals for 1 dose 1 packet 07/29/2023 3 miconazole 2 % powder Apply topically 2 (two) times a day 70 g 07/29/2023 3 furosemide (LASIX) 40 mg tablet Take 1 tablet (40 mg total) by mouth daily 30 tablet 1 07/30/2023 3 FLUoxetine (PROzac) 40 mg capsuleIndications :Anxiety with Depression,Fibromy algia Take 1 capsule (40 mg total) by mouth daily 30 capsule 1 07/30/2023 3 famotidine (PEPCID) 20 mg tablet Take 1 tablet (20 mg total) by mouth daily 30 tablet 1 07/30/2023 3 carvediloL (COREG) 3.125 mg tablet Take 1 tablet (3.125 mg total) by mouth 2 (two) times a day with meals 60 tablet 1 07/29/2023 3 apixaban (ELIQUIS) 2.5 mg tabletIndications: VTE Prophylaxis,atrial fibrillation Take 1 tablet (2.5 mg total) by mouth every 12 (twelve) hours 60 tablet 1 07/29/2023 3 amiodarone (PACERONE) 200 mg tablet Take 1 tablet (200 mg total) by mouth daily 30 tablet 1 08/02/2023 3 amiodarone (PACERONE) 200 mg tablet Take 1 tablet (200 mg total) by mouth 2 (two) times a day for 8 doses 28 tablet 07/29/2023 3 documented in this encounter Discharge Disposition Disposition Code Departure Means Destination Comment s Discharge to long term facility [facility] documented in this encounter Progress Notes * Ave Fagan, AUTOCLAVE OPERATOR - 07/29/2023 9:00 AM CST Physical Therapy 07/29/23 0823 PT Last Visit Session Type Treatment Safe Environment Arm band checked;Patient found in supine;Session completed bedside Pain Assessment Pain Assessment 0-10 Pain Score 3 Supine Supine-Exercises Bilateral;Lower extremity Reps/Sets 10 Supine-Motion AAROM;AROM Safe Environment End of Therapy Session Safe Environment End of Therapy Session Patient left supine in bed Assessment Prognosis Guarded Problem List Decreased strength;Decreased range of motion;Decreased endurance;Impaired balance;Decreased mobility Plan Plan If this is the last note, consider this the discharge summary Recommendation/Plan PT Recommendation/Plan Fdc Facility Patient at high risk for Falls;Readmission;Injury due to decreased ability to care for self;Injury due to reduced functional status;Injury due to balance deficits Recommend SNF due to Risk of injury at home;Skilled therapy needed to address care for self in the home;Skilled therapy needed to address functional deficits;Unable to safely care for self in the home;Skilled therapy needed for patient to return to prior level of independence RETE TESTER * Wan Nava, [facility] - 07/29/2023 5:44 AM CST Pharmacy Consult -Electrolyte Replacement Protocol (in patients not receiving parenteral nutrition) Pharmacist managed electrolyte replacement protocol has been ordered by Dr. Soriano. Exclusion criteria to the pharmacist managed electrolyte protocol (If any present, then please contact the provider to notify them of the applicable exclusion criteria) No Monitoring Guidelines: Electrolyte levels will be ordered by providers as needed. Pertinent Lab Results: Lab Results Component Value Date SODIUM 139 07/29/2023 POTASSIUM 3.3 07/29/2023 MAGNESIUM 2.0 07/24/2023 PHOS 2.5 07/29/2023 CALCIUM 8.9 07/29/2023 ALBUMIN 2.9 (L) 07/21/2023 Corrected Calcium =9.8 mg/dl Estimated Creatinine Clearance: 43 mL/min (by C-G 65 yr and older- minimum SCr 0.8 based on SCr of 0.78 mg/dL). Lab Results Component Value Date CREATININE 0.78 07/29/2023 CREATININE 0.71 07/28/2023 CREATININE 0.72 07/27/2023 IV or PO repletion will be ordered by the pharmacist when levels fall below the desired range basedon the diet ordered. The following electrolyte replacement orders were placed: .Phos- Nak 1 packet orally tid X 3 doses today per electrolyte replacement protocol for Phosphorous=2.5 on 07/29/23 Table 1. Serum Potassium (mmol/L) Creatinine Clearance (mL/min) Potassium Replacement 3.3 to 3.5 CrCl > 30 Potassium chloride 20 mEq IV, PO, or per tube for 1 dose CrCl < 30 No replacement 3.0 to 3.2 CrCl > 30 Potassium chloride 40 mEq IV, PO, or per tube for 1 dose CrCl < 30 Potassium chloride 20 mEq IV, PO, or per tube for 1 dose 2.6 to 2.9 CrCl > 30 Potassium chloride 60 mEq IV, PO, or per tube for 1 dose CrCl < 30 Potassium chloride 40 mEq IV, PO, or per tube for 1 dose < 2.6 CrCl > 30 Potassium chloride 60 mEq IV for 1 dose, Repeat level 2 hours after infusion complete, and contact provider CrCl < 30 Potassium chloride 40 mEq IV for 1 dose, Repeat level 2 hours after infusion complete, and contact provider *Normal S. Potassium range 3.3 - 5.1 mmol/L a. Limit potassium chloride to 40 mEq in a single IVPB. Table 2. Ionized calcium (mg/dL) Corrected Serum Calcium (mg/dL) Calcium Replacement 3.01 to 4.49 7.6 to 8.4 Calcium carbonate 500 mg (elemental calcium) PO or per tube TID for 3 doses Or Calcium gluconate 1 g IV for 1 dose < 3 < 7.5 Calcium gluconate 2 g IV for 1 dose Repeat level 4 hours after infusion complete and contact provider *Normal S. Calcium range 8.6 - 10.3 mg/dL a. Serum calcium must be corrected for hypoalbuminemia based on the following equation: Corrected serum calcium = 0.8(4 - Albumin) + Calcium b. Ionized calcium is preferred over serum calcium if both are available c. Calcium carbonate may be administered as a tablet or as the suspension Table 3. Serum Magnesium (mg/dL) Creatinine Clearance (mL/min) Magnesium Replacement 1.0 to 1.5 CrCl > 30 Magnesium oxide 400 mg PO TID x 3 doses Or Magnesium sulfate 2g IV for 1 dose CrCl < 30 Magnesium oxide 400 mg PO TID x 3 doses Or Magnesium sulfate 1g IV for 1 dose <1.0 CrCl > 30 Magnesium sulfate 4g IV for 1 dose Repeat level 2 hours after infusion complete and contact provider CrCl < 30 Magnesium sulfate 2g IV for 1 dose Repeat level 2 hours after infusion complete and contact provider *Normal S. Magnesium range 1.6-2.6 mg/dL Table 4. Serum Phosphorus (mg/dL) Serum Potassium (mmol/L) Oral or per tube Phosphate Replacement 2 to 2.5 > 3.5 K-Phos Neutral 1 tablet (8 mmol) PO or per tube TID x 3 doses < 3.5 Phos NaK 1 packet (8 mmol) PO or per tube TID x 3 doses 1.6 to 1.9 > 3.5 K-Phos Neutral 2 tablets (16 mmol) PO or per tube TID x 3 doses < 3.5 Phos NaK 2 packets (16 mmol) PO or per tube TID x 3 doses < 1.6 Go to the intravenous phosphate replacement table (Table 5) *Normal S. Phosphorus range 2.5 - 4.5 mg/dL a. If potassium is provided as part of the above phosphorus replacement, then count this as part ofthe potassium replacement in Table 1. b. Each K-Phos Neutral tablet contains elemental phosphorus 250 mg (8 mmol), potassium 45 mg (1.1 mEq), and sodium 298 mg (13 mEq). c. Each Phos-NaK packet contains elemental phosphorus 250 mg (8 mmol), potassium 280 mg (7.1 mEq), and sodium 160 mg (6.9 mEq). Table 5. Serum Phosphorus (mg/dL) Intravenous Phosphate Replacement 2 to 2.5 Phosphate 0.16 mmol/kgb IV for 1 dose 1.6 to 1.9 Phosphate 0.32 mmol/kgb IV for 1 dose < 1.6 Phosphate 0.64 mmol/kgb IV for 1 dose Repeat level 4 hours after infusion complete and contact provider *Normal S. Phosphorus range 2.5 - 4.5 mg/dL a. Formulation (sodium or potassium salt) will be determined by potassium requirements as determined in Table 1. b. If potassium is provided as part of the above phosphorus replacement, then count this as part ofthe potassium replacement in Table 1. Each mmol of IV potassium phosphate contains 1.5 mEq of potassium. b. Round to the nearest 5 mmol phosphate. Limit phosphate repletion to 30 mmoles in a single IVPB. c. Use adjusted body weight for patients with a BMI > 30 Thank you, Wan Nava RPh [facility] Pharmacy department RETE TESTER * Krzysztof Sarah MD - 07/28/2023 2:48 PM CST General Medicine Daily Progress OBJECTIVE/SUBJECTIVE : [age] year lady with history of morbid obesity, hypertension, CKD, depression, hypothyroidism, chronic pain syndrome, COPD, asthma, was admitted for acute hypoxic respiratory failure, nausea/vomiting. She was previously admitted to intensive care unit. She was diagnosed as takotsubos cardiomyopathy, new onset atrial fibrillation, hyponatremia, hematuria 07/26 patient lying in the bed, appears comfortable, plan of care discussed with at bedside 07/27 lying in the bed, appears comfortable in a [place] [facility] facility placement planned 07/28 patient lying in the bed, talks minimally, patient to be discharged to skilled facility, social work or working on placement, overall prognosis guarded Vitals: 24hr Min/Max: Temp Min: 36 ??C (96.8 ??F) Max: 36.9 ??C (98.5 ??F) Pulse Min: 64 Max: 67 BP Min: 93/65 Max: 129/48 Resp Min: 18 Max: 20 SpO2 Min: 93 % Max: 100 % Most Recent : Vitals: 07/28/23 0600 07/28/23 0725 07/28/23 0808 07/28/23 1107 BP: 119/48 96/79 BP Location: Left arm Left arm Patient Position: Lying Pulse: 65 66 Resp: 20 18 Temp: 36.6 ??C (97.9 ??F) 36.3 ??C (97.4 ??F) TempSrc: Temporal Temporal SpO2: 97% 97% 96% Weight: 134.7 kg (296 lb 15.4 oz) Height: I/O last 2 completed shifts: In: 20 [I.V.:20] Out: 1600 [Urine:1600] I/O this shift: In: 360 [P.O.:360] Out: - Physical Exam HEENT: NC Atraumatic , Sclera white, pupils reactive Skin: No rash, jaundice Neck: Supple, no thyromegaly Chest: breath sounds are decreased bilaterally Heart: regular rate and rhythm no murmur no clicks Abdomen: Morbid obesity Musculoskeletal : Lying in the bed Ext: No clubbing , pedal edema. Neurological : No weakness, no focal deficit. Mental status: Awake and alert, answering questions appropriately Lab/Radiology/Diagnostic Review: Recent Results (from the past 24 hour(s)) Phosphorus Collection Time: 07/28/23 3:48 AM Result Value Ref Range Phosphorus, pl 2.9 2.3 - 4.5 mg/dL CBC without differential Collection Time: 07/28/23 3:48 AM Result Value Ref Range WBC 11.5 (H) 3.8 - 9.9 K/cumm Hgb 11.9 11.9 - 15.5 g/dL Hct 36.7 35.6 - 45.5 % Plt 216 150 - 400 K/cumm MPV 8.7 (L) 9.1 - 12.3 fL RBC 3.76 (L) 3.90 - 5.20 M/cumm MCV 97.6 (H) 81.3 - 96.4 fL MCH 31.6 27.1 - 33.3 pg MCHC 32.4 32.3 - 35.7 g/dL RDW CV 15.3 (H) 11.1 - 14.9 % RDW SD 50.9 (H) 35.7 - 48.1 fL NRBC abs 0.03 (H) 0.00 - 0.01 K/cumm Basic metabolic panel Collection Time: 07/28/23 3:48 AM Result Value Ref Range Sodium 140 135 - 145 mmol/L Potassium, pl 3.5 3.3 - 4.9 mmol/L Chloride 98 97 - 110 mmol/L CO2 37 (H) 22 - 32 mmol/L Anion gap 5 2 - 15 mmol/L BUN 16 6 - 25 mg/dL Creatinine 0.71 0.60 - 1.10 mg/dL Glucose 96 70 - 199 mg/dL Calcium 8.7 8.5 - 10.3 mg/dL eGFR Collection Time: 07/28/23 3:48 AM Result Value Ref Range eGFR 88 mL/min/1.73 m2 Transesophageal Echocardiogram (SOPHIE) W Possible Cardioversion Result Date: 07/20/2023 Narrative: Daniela Job ID: [id number] Amphion Document ID: [id number] Dictated date/time: [id number] NAME OF PROCEDURE 1. Transesophageal echocardiogram. 2. Cardioversion of atrial fibrillation. PROCEDURE The patient was kept in ICU bed 7. Consent form was signed. She was not allergic to any medication we are going to be giving her. Sedation time was about 25 minutes. Patient received in small increments 1 mg IV Versed and 50 mcg IV fentanyl. Topical anesthetics were given to the retropharynx twice. When well sedated, the probe went down to the distal esophagus very easily. FINDINGS The LV function was quite diminished with apical akinesis. Ejection fraction estimated at 25% to 30% at best. No thrombus in the left ventricle. Mitral valve leaflets opening and closing well with evidence of moderate to severe mitral regurgitation. Left atrium is definitely moderately dilated. Left atrial appendage is well seen and has no thrombus. Left atrial appendage velocity was diminished at 0.4 m/sec as expected from atrial fibrillation. Tricuspid valve leaflets opening and closing well with evidence of mild to moderate tricuspid regurgitation. The pulmonic valve is opening and closing well with pulmonic insufficiency. Aortic valve is tricuspid in nature and without any regurgitation orvegetation. On the way out, no hypermobile elements noted in the aortic arch. CONCLUSION 1. No hypermobile elements in aortic arch. 2. No thrombus left ventricular apex or left atrial appendage. 3. Moderately dilated left atrium. 4. Severely diminished global LV function with apical akinesis. LVEF of 25% to 30%. 5. Pulmonic insufficiency. 6. Tricuspid regurgitation, mild to moderate. 7. Mitral regurgitation, moderate to severe. 8. No clot in left atrial appendage with a low left atrial appendage velocity of 0.4 m/sec. After making sure patient continues to be well sedated, a 360 joule synchronized biphasic shock converted her from an irregular atrial fibrillation rhythm to regular rhythm that looks to be now atrial flutter. The patient will be continued on p.o. amiodarone after discontinuation of IV amiodarone. We may try to cardiovert her out of atrial flutter in a few weeks. Job ID/Internal Job ID: [id number] ECG 12 lead Result Date: 07/20/2023 Narrative: Vent Rate: 70 bpm RR Interval: 846 msec WV Interval: 0 msec QRS Duration: 154 msec QT Interval: 465 msec QTC Interval: 487 msec P-R-T [place]ett: [id number] - 69 - 195 degrees IMPRESSION: ATRIAL FLUTTER LEFT BUNDLE BRANCH BLOCK [120+ ms QRS DURATION, 80+ ms Q/S IN V1/V2, 85+ ms R IN I/aVL/V5/V6] ABNORMAL ECG Electronically Signed By: John Dominguez MD XR Chest 1 View Result Date: 07/19/2023 Narrative: EXAM DESCRIPTION: XR CHEST 1 VIEW REASON FOR STUDY: PICC placement. TECHNIQUE: Frontal radiographic view(s) of the chest. COMPARISON: Chest radiograph 07/16/2023 and 04/14/2019. FINDINGS: LUNGS: No focal consolidation, noting redemonstration of diffuse coarsened pulmonary markings. No large pleural effusion. No pneumothorax. HEART/MEDIASTINUM: Stable cardiomediastinal silhouette, noting mild cardiomegaly. LINES/TUBES: Interval placement of right upper extremity PICC with tip termination projecting over the superior vena cava. BONES: No acute osseous abnormality. IMPRESSION: Interval placement of right upper extremity PICC with tip termination projecting over the superior vena cava. No radiographic evidence of acute cardiopulmonary process. THIS IS AN ELECTRONICALLY VERIFIED FINAL REPORT 07/19/2023 2:14 PM - Electronically signed by Blaze Schwartz M.D. DYANA: DYANA Report ID: [id number] Reading Location: [id number] Cardiac Catheterization Result Date: 07/19/2023 Narrative: Amphion Job ID: [id number] Amphion Document ID: [id number] Dictated date/time: [id number] CARDIAC CATHETERIZATION A 78-year-old with obesity and shortness of breath. Echocardiogram showed severe segmental LV dysfunction. She is now having chest pain. She was referred for catheterization. INDICATION FOR PROCEDURE Takotsubo cardiomyopathy. PROCEDURE PERFORMED Left heart catheterization, selective coronary angiography, left ventriculography. After obtaining informed consent, patient was brought to the cardiac computer lab para professional. She was prepped and draped in the usual sterile fashion. Conscious sedation was administered by the computer lab para professional staff under my supervision. A total of 0.5 mg Verse d and 25 mcg of fentanyl were given. See procedure log for further details. Total sedation time was16 minutes. A 6-[place] sheath was inserted in the right radial artery. Combination of Angiomax, lidocaine, and nitroglycerin was administered intra-arterially. The selective coronary cannulation was performed using standard Eddy catheters. Left ventriculography was performed in the MATA projection using pigtail followed by left heart pullback. At the end of procedure, the arterial sheath was removed and hemostasis achieved by applying TR band to the right wrist. FINDINGS: HEMODYNAMICS: LV pressure was 120/25, ascending aortic pressure 120/80. There was significant respiratory variations of her pressures. LEFT VENTRICULOGRAPHY: This showed akinesis of the anterolateral apical and diaphragmatic segment. The basal segments were reasonably well. Overall ejection fraction 20% to 25%. There was moderate +2 mitral regurgitation. RIGHT CORONARY ARTERY: The right coronary artery was a large dominant vessel and gives distally medium-sized posterior descending and several posterolateral branches. The right coronary system was angiographically normal. LEFT CORONARY ARTERY: The left main coronary artery, the circumflex, the obtuse marginal branches were angiographically normal. The left anterior descending was also patent. There was possible muscle bridge in the mid segment. IMPRESSION 1. Angiographically no significant obstructive coronary artery disease. 2. Segmental left ventricular systolic dysfunction consistent with Takotsubo cardiomyopathy. 3. Moderate mitral regurgitation. 4. Elevated left ventricular diastolic pressure. CARE PLAN Medical therapy per primary team. John Dominguez MD Job ID/Internal Job ID: [id number] ECG 12 lead Result Date: 07/19/2023 Narrative: Vent Rate: 91 bpm RR Interval: 655 msec WV Interval: 0 msec QRS Duration: 123 msec QT Interval: 420 msec QTC Interval: 469 msec P-R-T Stinnett: [id number] - 65 - 208 degrees IMPRESSION: ATRIAL FIBRILLATION MODERATE INTRAVENTRICULAR CONDUCTION DELAY [110+ ms QRS DURATION] ST DEVIATION AND MODERATET-WAVE ABNORMALITY, CONSIDER ANTEROLATERAL ISCHEMIA [-0.1+ mV T-WAVE IN V3-V6] ST DEVIATION AND MODERATE T-WAVE ABNORMALITY, CONSIDER INFERIOR ISCHEMIA [-0.1+ mV T-WAVE IN II/aVF] ABNORMAL ECG Compared to prior EKG, anterolateral T- wave inversions are new QT interval has increased Electronically Signed By: John Dominguez MD ECG 12 lead Result Date: 07/18/2023 Narrative: Vent Rate: 100 bpm RR Interval: 597 msec WV Interval: 0 msec QRS Duration: 128 msec QT Interval: 355 msec QTC Interval: 412 msec P-R-T Stinnett: [id number] - 33 - 56 degrees IMPRESSION: UNCERTAIN REGULAR RHYTHM, probably junctional POSSIBLE LATERAL MYOCARDIAL INFARCTION , OF INDETERMINATE AGE [30ms Q WAVE IN I/aVL/V5/V6] CRITICAL TEST RESULT Compared to prior EKG, P-waves are not present Electronically Signed By: John Dominguez MD ECG 12 lead Result Date: 07/18/2023 Narrative: Vent Rate: 85 bpm RR Interval: 700 msec WV Interval: 0 msec QRS Duration: 123 msec QT Interval: 403 msec QTC Interval: 445 msec P-R-T [place]: [id number] - 33 - 52 degrees IMPRESSION: UNCERTAIN REGULAR RHYTHM, probably junctional POSSIBLE LATERAL MYOCARDIAL INFARCTION , OF INDETERMINATE AGE [30 ms Q WAVE IN I/aVL/V5/V6] ABNORMAL ECG NO CHANGE FROM PREVIOUS TRACING NOTED Electronically Signed By: John Dominguez MD Transthoracic Echo (TTE) Complete W Doppler/CF Result Date: 07/18/2023 Narrative: [address] [id number] Echocardiogram Report Patient Name: PEBBLES LAL L : 1945 Study Date: 07/18/2023 8:50:58 AM Gender: F Tech: Location: [address] Provider: GIANLUCA SORIANO Height(Cm): 152 BSA: 2.39 Weight(Kg): 135.2 Quality: Adequate Order Provider: GRACIELA SORIANOOPROCEDURES: Echocardiographic Report: Transthoracic echocardiogram with complete 2D, M-Mode, and color Doppler examination. INDICATIONS: Congestive Heart Failure. Measurements: 2D/M Mode Doppler Measu rement Value Normal Range Measurement Value Normal Range EF Teich MM 47.3 [ 55.0 - 70.0 ] percent DANIELLE Vmax 2.33 [ 2.00 - 4.00 ] cm2 LVIDd MM 6.07 [ 3.90 - 5.30 ] cm AV Mean PG 11 [ 2 - 4 ] mmHg LVIDsMM 4.60 [ 2.30 - 3.90 ] cm AV Peak Morales 1.48 [ <= 0.02 ] m/s LVPWd MM 0.87 [ 0.60 - 1.00 ] cm AV VTI 25.96 cm IVSd MM 0.99 [ 0.60 - 0.90 ] cm LVOT Diam 2.18 [ 1.70 - 2.10 ] cm LA Dimension MM 5.15 [ 2.70 - 3.80 ] cm LVOT Peak Morales 0.92 [ <= 0.01 ] m/s AoR Diam 2D 2.83 [ 2.60 - 3.70 ] cm LVOT VTI 16.52 [ 20.00 - 30.00 ] cm AoR Diam MM 3.29 [ 2.60 - 3.70 ] cm MV Mean PG 2 [ <= 5 ] mmHg PV Peak Morales 0.77 m/s TR Peak Morales 3.43 [ <= 0.03 ] m/s TR Peak PG 47 mmHg RVSP 57.00 [ 10.00 - 36.00 ]mmHg PA Pressure 10.00 [ 10.00 - 36.00 ] mmHg Measurement Value Normal Range Measurement Value Normal Range 2D/M Mode Doppler - FINDINGS: Atrial Septum: Normal atrial septum. Left Ventricle: Irregular rhythm. Mild concentric left ventricular hypertrophy. Moderate global left ventricular systolic dysfunction. Ejection fraction is visually estimated at 35 to 40 %. 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 Left Atrium: There is mild enlargement of left atrium. Right Ventricle: Normal right ventricular size. Right Atrium: The right atrium is normal in size. Aortic Valve: Normal structure of the aortic valve. Mitral Valve: Mild mitral annular calcification. Mild to moderate mitral valve regurgitation. Pulmonic Valve: Normal structure of the pulmonic valve. Tricuspid Valve: Normal structure of the tricuspid valve. Moderate pulmonary hypertension based on right ventricular systolic pressure. Estimated peak RVSP is 57 to 61 mmHg. Trivial regurgitation in the tricuspid valve. Pericardium: Normal pericardium with no significant pericardial effusion. Aorta: Normal aortic root. IVC: Normal size and normal respiratory collapse consistent with normal right atrial pressure (<5 mmHg). CONCLUSIONS: Irregular rhythm. Mild concentric left ventricular hypertrophy. Moderate global left ventricular systolic dysfunction. Ejection fraction is visuallyestimated at 35 to 40 %. 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 There is mild enlargement of left atrium. Mild mitral annular calcification. Mild to moderate mitral valve regurgitation. Normal structure of the aortic valve. Normal structure of the tricuspid valve. Moderate pulmonary hypertension based on right ventricular systolic pressure. Estimated peak RVSP is 57 to 61 mmHg. Trivial regurgitation in the tricuspid valve. Electronically Signed By: Dr Roly Husain 2023-07-18 10:07:11 CONCRETE TESTER XR CHEST 1 VIEW PORTABLE Result Date: 07/16/2023 Narrative: EXAM DESCRIPTION: XR CHEST 1 VIEW REASON FOR STUDY: cough Pt presents [facility] with nausea vomiting diarrhea spo2 89% RA TECHNIQUE: 1 radiographic view(s) of the chest. COMPARISON: 04/14/2019 FINDINGS: Stable cardiomegaly. Poor inspiratory result with bibasilar discoid atelectasis. Mild pulmonary vascular congestion. No airspace consolidation. No pneumothorax. IMPRESSION: Cardiomegaly and mild pulmonary vascular congestion. THIS IS AN ELECTRONICALLY VERIFIED FINAL REPORT 0:43 PM - Electronically signed by Pawan Mata M.D. KT: CAMILO Report ID: [id number] Reading Location: [id number] @[facility]@ [facility] Facility-Administered Medications Medication Dose Route Frequency Provider Last Rate Last Admin acetaminophen (TYLENOL) tablet 650 mg 650 mg oral Q4H PRN Maciel Jean MD 650 mg at 07/28/23 0327 albuterol 2.5 mg /3 mL (0.083 %) nebulizer solution 2.5 mg 2.5 mg nebulization Q4H PRN (RT) Joycelyn Moseley MD 2.5 mg at 07/20/23 193 amiodarone (PACERONE) tablet 200 mg 200 mg oral BID Roly Husain MD 200 mg at 07/28/23 0832 [START ON 08/02/2023] amiodarone (PACERONE) tablet 200 mg 200 mg oral Daily Roly Husain MD apixaban (ELIQUIS) tablet 2.5 mg 2.5 mg oral Q12H SAL Karen Zambrano MD 2.5 mg at 07/28/23 0832 atorvastatin (LIPITOR) tablet 10 mg 10 mg oral Daily Krzysztof Sarah MD 10 mg at 07/28/23 0832 bisacodyl EC (DULCOLAX EC) tablet 10 mg 10 mg oral Daily PRN Karen Zambrano MD 10 mg at budesonide-formoteroL (SYMBICORT) 160-4.5 mcg/actuation inhaler 2 puff 2 puff inhalation BID (RT) Krzysztof Sarah MD 2 puff at 07/28/23 0808 buPROPion SR (WELLBUTRIN SR) 12 hour tablet 150 mg 150 mg oral BID Maciel Jean MD 150 mg at 07/28/23 0832 carvediloL (COREG) tablet 3.125 mg 3.125 mg oral BID with meals (bkfst, dinner) Roly Husain MD 3.125 mg at 07/28/23 0832 famotidine (PEPCID) tablet 20 mg 20 mg oral Daily Maciel Jean MD 20 mg at 07/28/23 0832 FLUoxetine (PROzac) capsule 40 mg 40 mg oral Daily Maciel Jean MD 40 mg at 07/28/23 0832 furosemide (LASIX) 10 mg/mL injection 60 mg 60 mg intravenous Daily Karen Zambrano MD 60 mg at 07/28/23 0831 HYDROcodone-acetaminophen (NORCO) 5-325 mg per tablet 1 tablet 1 tablet oral Q4H PRN Maciel Jean MD 1 tablet at 07/27/232023 influenza quadrivalent [id number] (FLUZONE HIGH DOSE) 240 mcg/0.7 mL vaccine (HIGH DOSE age 65 yearsand up) 0.7 mL 0.7 mL intramuscular During hospitalization Maciel Jean MD magnesium hydroxide (MILK OF MAGNESIA) 80 mg/mL (33.3 mg/mL as elemental magnesium) oral [id number] mL 30 mL oral Daily PRN Karen Zambrano MD 30 mL at 07/25/23 0249 miconazole 2 % powder topical BID Maciel Jean MD Given at 07/28/23 0833 mineral oil (FLEET MINERAL OIL) enema 133 mL 1 enema rectal Daily PRN Karen Zambrano MD ondansetron (ZOFRAN) injection 4 mg 4 mg intravenous Q4H PRN Maciel Jean MD 4 mg at 07/24/23 1003 psyllium (aspartame) SF (METAMUCIL SF) 3.4 gram packet 1 packet 1 packet oral Nightly Maciel Jean MD 1 packet at 07/23/232038 sacubitriL-valsartan (ENTRESTO) 24-26 mg tablet 1 tablet 1 tablet oral BID Roly Husain MD 1 tablet at 07/28/23 0831 sodium chloride 0.9% flush 5-10 mL 5-10 mL intra-catheter Q12H SAL Maciel Jean MD 10 mL at 07/28/23 0832 sodium chloride 0.9% flush 5-20 mL 5-20 mL intra-catheter PRN Maciel Jean MD spironolactone (ALDACTONE) tablet 25 mg 25 mg oral Daily Roly Husain MD 25 mg at 07/28/23 0832 Assessment/Plan Principal Problem: Vomiting and diarrhea Active Problems: Class 3 severe obesity due to excess calories with serious comorbidity and body mass index (BMI) of50.0 to 59.9 in adult (HCC) Acquired hypothyroidism NSTEMI (non-ST elevated myocardial infarction) ([facility]/HCC) ([facility]) Takotsubo cardiomyopathy Mitral regurgitation New onset atrial fibrillation ([facility]) ([facility]) Mild protein-calorie malnutrition ([facility]) ([facility]) Acute hypoxic respiratory failure Non STEMI/troponin elevation 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 Takotsubo cardiomyopathy/low ejection fraction Hypertension Cardiology consulted 07/26 continues on Coreg, Entresto, spironolactone, IV Lasix , Cumulative output of 3.3 L, is severely weak, unable to sit up , PT/OT Advised to have LifeVest upon discharge as per Cardiology 07/27 patient lying in the bed, appears comfortable,placement planned 07/28 as above New onset atrial fibrillation 07/26 continues on amiodarone, Eliquis, Coreg 07/27 continues above medications Hematuria Leukocytosis Indwelling Stafford catheter 07/26 monitor CBC 07/27 WBC count of 10.7, continue monitoring 07/28 WBC count 11.5, hemoglobin of 11.9, continue monitor Depression Chronic pain syndrome 07/26 continues on Prozac DVT prophylaxis in place My total encounter time was 35 minutes which was spent in the activities documented in the note. This includes time spent prior to the visit and after the visit in direct care of the patient. This time does not include time spent in any separately reportable services. To do this note, dictation phone was used, may result in grammatical errors even after proof reading , please check , thank you. RETE TESTER * [address], [facility] - 07/28/2023 2:37 PM CST Physical Therapy 07/28/23 1357 PT Last Visit Session Type Treatment Safe Environment Arm band checked;Patient found in supine;Session completed bedside Pain Assessment Pain Assessment No/denies pain Supine Supine-Exercises Bilateral;Lower extremity Reps/Sets 10-12 Supine-Motion AROM;AAROM Safe Environment End of Therapy Session Safe Environment End of Therapy Session Patient left supine in bed;Call light within reach;Overbed table within reach Assessment Prognosis Guarded Problem List Decreased strength;Decreased range of motion;Decreased endurance;Impaired balance;Decreased mobility Plan Plan If this is the last note, consider this the discharge summary Recommendation/Plan PT Recommendation/Plan Fdc Facility Patient at high risk for Falls;Readmission;Injury due to decreased ability to care for self;Injury due to reduced functional status;Injury due to balance deficits Recommend SNF due to Risk of injury at home;Unable to safely care for self in the home;Skilled therapy needed to address care for self in the home;Skilled therapy needed to address functional deficits;Skilled therapy needed for patient to return to prior level of independence RETE TESTER * [address], [employer] - 07/27/2023 3:13 PM CST Physical Therapy 07/27/23 1316 PT Last Visit Session Type Treatment Safe Environment Arm band checked;Patient found in supine;Session completed bedside;Gait belt utilized for all out of bed mobility Pain Assessment Pain Assessment 0-10 Pain Score 6 Supine Supine-Exercises Bilateral;Lower extremity Reps/Sets 10 Supine-Motion AAROM;AROM Supine-Exercise Comments pt very sleepy kept following asleep durning ex Assessment Prognosis Guarded Problem List Decreased strength;Decreased range of motion;Decreased endurance;Impaired balance;Decreased mobility Plan Plan If this is the last note, consider this the discharge summary Recommendation/Plan PT Recommendation/Plan Fdc Facility Patient at high risk for Falls;Readmission;Injury due to balance deficits;Injury due to reduced functional status;Injury due to decreased ability to care for self Recommend SNF due to Risk of injury at home;Unable to safely care for self in the home;Skilled therapy needed to address care for self in the home;Skilled therapy needed to address functional deficits;Skilled therapy needed for patient to return to prior level of independence RETE TESTER * Krzysztof Sarah MD - 07/27/2023 2:46 PM CST General Medicine Daily Progress OBJECTIVE/SUBJECTIVE : [age] year lady with history of morbid obesity, hypertension, CKD, depression, hypothyroidism, chronic pain syndrome, COPD, asthma, was admitted for acute hypoxic respiratory failure, nausea/vomiting. She was previously admitted to intensive care unit. She was diagnosed as takotsubos cardiomyopathy, new onset atrial fibrillation, hyponatremia, hematuria 07/26 patient lying in the bed, appears comfortable, plan of care discussed with at bedside 07/27 lying in the bed, appears comfortable in a [place] [facility] facility placement planned Vitals: 24hr Min/Max: Temp Min: 35.8 ??C (96.4 ??F) Max: 36.9 ??C (98.5 ??F) Pulse Min: 60 Max: 71 BP Min: 93/38 Max: 133/64 Resp Min: 18 Max: 20 SpO2 Min: 96 % Max: 100 % Most Recent : Vitals: 07/27/23 0716 07/27/23 0800 07/27/23 0943 07/27/23 1100 BP: 107/62 109/60 103/47 BP Location: Left arm Right arm Patient Position: Lying;HOB 30 degrees Pulse: 66 66 66 66 Resp: 18 18 Temp: (!) 35.8 ??C (96.4 ??F) 36.1 ??C (96.9 ??F) TempSrc: Temporal Temporal SpO2: 100% 100% Weight: Height: I/O last 2 completed shifts: In: 920 [P.O.:920] Out: 1000 [Urine:1000] I/O this shift: In: 20 [I.V.:20] Out: 750 [Urine:750] Physical Exam HEENT: NC Atraumatic , Sclera white, pupils reactive Skin: No rash, jaundice Neck: Supple, no thyromegaly Chest: breath sounds are decreased bilaterally Heart: regular rate and rhythm no murmur no clicks Abdomen: Morbid obesity Musculoskeletal : Lying in the bed Ext: No clubbing , pedal edema. Neurological : No weakness, no focal deficit. Mental status: Awake and alert, answering questions appropriately Lab/Radiology/Diagnostic Review: Recent Results (from the past 24 hour(s)) Phosphorus Collection Time: 07/27/23 3:53 AM Result Value Ref Range Phosphorus, pl 2.3 2.3 - 4.5 mg/dL CBC without differential Collection Time: 07/27/23 3:53 AM Result Value Ref Range WBC 10.9 (H) 3.8 - 9.9 K/cumm Hgb 12.1 11.9 - 15.5 g/dL Hct 37.0 35.6 - 45.5 % Plt 231 150 - 400 K/cumm MPV 8.7 (L) 9.1 - 12.3 fL RBC 3.80 (L) 3.90 - 5.20 M/cumm MCV 97.4 (H) 81.3 - 96.4 fL MCH 31.8 27.1 - 33.3 pg MCHC 32.7 32.3 - 35.7 g/dL RDW CV 14.9 11.1 - 14.9 % RDW SD 50.6 (H) 35.7 - 48.1 fL NRBC abs 0.05 (H) 0.00 - 0.01 K/cumm Basic metabolic panel Collection Time: 07/27/23 3:53 AM Result Value Ref Range Sodium 136 135 - 145 mmol/L Potassium, pl 3.5 3.3 - 4.9 mmol/L Chloride 96 (L) 97 - 110 mmol/L CO2 37 (H) 22 - 32 mmol/L Anion gap 4 2 - 15 mmol/L BUN 18 6 - 25 mg/dL Creatinine 0.72 0.60 - 1.10 mg/dL Glucose 91 70 - 199 mg/dL Calcium 9.0 8.5 - 10.3 mg/dL eGFR Collection Time: 07/27/23 3:53 AM Result Value Ref Range eGFR 87 mL/min/1.73 m2 Transesophageal Echocardiogram (SOPHIE) W Possible Cardioversion Result Date: 07/20/2023 Narrative: Daniela Job ID: [id number] Am[employer]ion Document ID: [id number] Dictated date/time: [id number] NAME OF PROCEDURE 1. Transesophageal echocardiogram. 2. Cardioversion of atrial fibrillation. PROCEDURE The patient was kept in ICU bed 7. Consent form was signed. She was not allergic to any medication we are going to be giving her. Sedation time was about 25 minutes. Patient received in small increments 1 mg IV Versed and 50 mcg IV fentanyl. Topical anesthetics were given to the retropharynx twice. When well sedated, the probe went down to the distal esophagus very easily. FINDINGS The LV function was quite diminished with apical akinesis. Ejection fraction estimated at 25% to 30% at best. No thrombus in the left ventricle. Mitral valve leaflets opening and closing well with evidence of moderate to severe mitral regurgitation. Left atrium is definitely moderately dilated. Left atrial appendage is well seen and has no thrombus. Left atrial appendage velocity was diminished at 0.4 m/sec as expected from atrial fibrillation. Tricuspid valve leaflets opening and closing well with evidence of mild to moderate tricuspid regurgitation. The pulmonic valve is opening and closing well with pulmonic insufficiency. Aortic valve is tricuspid in nature and without any regurgitation orvegetation. On the way out, no hypermobile elements noted in the aortic arch. CONCLUSION 1. No hypermobile elements in aortic arch. 2. No thrombus left ventricular apex or left atrial appendage. 3. Moderately dilated left atrium. 4. Severely diminished global LV function with apical akinesis. LVEF of 25% to 30%. 5. Pulmonic insufficiency. 6. Tricuspid regurgitation, mild to moderate. 7. Mitral regurgitation, moderate to severe. 8. No clot in left atrial appendage with a low left atrial appendage velocity of 0.4 m/sec. After making sure patient continues to be well sedated, a 360 joule synchronized biphasic shock converted her from an irregular atrial fibrillation rhythm to regular rhythm that looks to be now atrial flutter. The patient will be continued on p.o. amiodarone after discontinuation of IV amiodarone. We may try to cardiovert her out of atrial flutter in a few weeks. Job ID/Internal Job ID: [id number] ECG 12 lead Result Date: 07/20/2023 Narrative: Vent Rate: 70 bpm RR Interval: 846 msec WV Interval: 0 msec QRS Duration: 154 msec QT Interval: 465 msec QTC Interval: 487 msec P-R-T [place]ett: [id number] - 69 - 195 degrees IMPRESSION: ATRIAL FLUTTER LEFT BUNDLE BRANCH BLOCK [120+ ms QRS DURATION, 80+ ms Q/S IN V1/V2, 85+ ms R IN I/aVL/V5/V6] ABNORMAL ECG Electronically Signed By: John Dominguez MD XR Chest 1 View Result Date: 07/19/2023 Narrative: EXAM DESCRIPTION: XR CHEST 1 VIEW REASON FOR STUDY: PICC placement. TECHNIQUE: Frontal radiographic view(s) of the chest. COMPARISON: Chest radiograph 07/16/2023 and 04/14/2019. FINDINGS: LUNGS: No focal consolidation, noting redemonstration of diffuse coarsened pulmonary markings. No large pleural effusion. No pneumothorax. HEART/MEDIASTINUM: Stable cardiomediastinal silhouette, noting mild cardiomegaly. LINES/TUBES: Interval placement of right upper extremity PICC with tip termination projecting over the superior vena cava. BONES: No acute osseous abnormality. IMPRESSION: Interval placement of right upper extremity PICC with tip termination projecting over the superior vena cava. No radiographic evidence of acute cardiopulmonary process. THIS IS AN ELECTRONICALLY VERIFIED FINAL REPORT 07/19/2023 2:14 PM - Electronically signed by Blaze Schwartz M.D. DYANA: DYANA Report ID: [id number] Reading Location: [id number] Cardiac Catheterization Result Date: 07/19/2023 Narrative: Amphion Job ID: [id number] Am[employer]ion Document ID: [id number] Dictated date/time: [id number] CARDIAC CATHETERIZATION A 78-year-old with obesity and shortness of breath. Echocardiogram showed severe segmental LV dysfunction. She is now having chest pain. She was referred for catheterization. INDICATION FOR PROCEDURE Takotsubo cardiomyopathy. PROCEDURE PERFORMED Left heart catheterization, selective coronary angiography, left ventriculography. After obtaining informed consent, patient was brought to the cardiac computer lab para professional. She was prepped and draped in the usual sterile fashion. Conscious sedation was administered by the computer lab para professional staff under my supervision. A total of 0.5 mg Verse d and 25 mcg of fentanyl were given. See procedure log for further details. Total sedation time was16 minutes. A 6-[place] sheath was inserted in the right radial artery. Combination of Angiomax, lidocaine, and nitroglycerin was administered intra-arterially. The selective coronary cannulation was performed using standard Eddy catheters. Left ventriculography was performed in the MATA projection using pigtail followed by left heart pullback. At the end of procedure, the arterial sheath was removed and hemostasis achieved by applying TR band to the right wrist. FINDINGS: HEMODYNAMICS: LV pressure was 120/25, ascending aortic pressure 120/80. There was significant respiratory variations of her pressures. LEFT VENTRICULOGRAPHY: This showed akinesis of the anterolateral apical and diaphragmatic segment. The basal segments were reasonably well. Overall ejection fraction 20% to 25%. There was moderate +2 mitral regurgitation. RIGHT CORONARY ARTERY: The right coronary artery was a large dominant vessel and gives distally medium-sized posterior descending and several posterolateral branches. The right coronary system was angiographically normal. LEFT CORONARY ARTERY: The left main coronary artery, the circumflex, the obtuse marginal branches were angiographically normal. The left anterior descending was also patent. There was possible muscle bridge in the mid segment. IMPRESSION 1. Angiographically no significant obstructive coronary artery disease. 2. Segmental left ventricular systolic dysfunction consistent with Takotsubo cardiomyopathy. 3. Moderate mitral regurgitation. 4. Elevated left ventricular diastolic pressure. CARE PLAN Medical therapy per primary team. John Dominguez MD Job ID/Internal Job ID: [id number] ECG 12 lead Result Date: 07/19/2023 Narrative: Vent Rate: 91 bpm RR Interval: 655 msec WV Interval: 0 msec QRS Duration: 123 msec QT Interval: 420 msec QTC Interval: 469 msec P-R-T Stinnett: [id number] - 65 - 208 degrees IMPRESSION: ATRIAL FIBRILLATION MODERATE INTRAVENTRICULAR CONDUCTION DELAY [110+ ms QRS DURATION] ST DEVIATION AND MODERATET-WAVE ABNORMALITY, CONSIDER ANTEROLATERAL ISCHEMIA [-0.1+ mV T-WAVE IN V3-V6] ST DEVIATION AND MODERATE T-WAVE ABNORMALITY, CONSIDER INFERIOR ISCHEMIA [-0.1+ mV T-WAVE IN II/aVF] ABNORMAL ECG Compared to prior EKG, anterolateral T- wave inversions are new QT interval has increased Electronically Signed By: John Dominguez MD ECG 12 lead Result Date: 07/18/2023 Narrative: Vent Rate: 100 bpm RR Interval: 597 msec WV Interval: 0 msec QRS Duration: 128 msec QT Interval: 355 msec QTC Interval: 412 msec P-R-T [place]ett: [id number] - 33 - 56 degrees IMPRESSION: UNCERTAIN REGULAR RHYTHM, probably junctional POSSIBLE LATERAL MYOCARDIAL INFARCTION , OF INDETERMINATE AGE [30ms Q WAVE IN I/aVL/V5/V6] CRITICAL TEST RESULT Compared to prior EKG, P-waves are not present Electronically Signed By: John Dominguez MD ECG 12 lead Result Date: 07/18/2023 Narrative: Vent Rate: 85 bpm RR Interval: 700 msec WV Interval: 0 msec QRS Duration: 123 msec QT Interval: 403 msec QTC Interval: 445 msec P-R-T [place]: [id number] - 33 - 52 degrees IMPRESSION: UNCERTAIN REGULAR RHYTHM, probably junctional POSSIBLE LATERAL MYOCARDIAL INFARCTION , OF INDETERMINATE AGE [30 ms Q WAVE IN I/aVL/V5/V6] ABNORMAL ECG NO CHANGE FROM PREVIOUS TRACING NOTED Electronically Signed By: John Dominguez MD Transthoracic Echo (TTE) Complete W Doppler/CF Result Date: 07/18/2023 Narrative: [address] [address] Echocardiogram Report Patient Name: PEBBLES LAL L : 1945 Study Date: 07/18/2023 8:50:58 AM Gender: F Tech: Location: [place] [address] Ref Provider: GIANLUCA SORIANO Height(Cm): 152 BSA: 2.39 Weight(Kg): 135.2 Quality: Adequate Order Provider: GRACIELA SORIANOOPROCEDURES: Echocardiographic Report: Transthoracic echocardiogram with complete 2D, M-Mode, and color Doppler examination. INDICATIONS: Congestive Heart Failure. Measurements: 2D/M Mode Doppler Measu rement Value Normal Range Measurement Value Normal Range EF Teich MM 47.3 [ 55.0 - 70.0 ] percent DANIELLE Vmax 2.33 [ 2.00 - 4.00 ] cm2 LVIDd MM 6.07 [ 3.90 - 5.30 ] cm AV Mean PG 11 [ 2 - 4 ] mmHg LVIDs MM 4.60 [ 2.30 - 3.90 ] cm AV Peak Morales 1.48 [ <= 0.02 ] m/s LVPWd MM 0.87 [ 0.60 - 1.00 ] cm AVVTI 25.96 cm IVSd MM 0.99 [ 0.60 - 0.90 ] cm LVOT Diam 2.18 [ 1.70 - 2.10 ] cm LA Dimension MM 5.15 [ 2.70 - 3.80 ] cm LVOT Peak Morales 0.92 [ <= 0.01 ] m/s AoR Diam 2D 2.83 [ 2.60 - 3.70 ] cm LVOT VTI 16.52 [ 20.00 - 30.00 ] cm AoR Diam MM 3.29 [ 2.60 - 3.70 ] cm MV Mean PG 2 [ <= 5 ] mmHg PVPeak Morales 0.77 m/s TR Peak Morales 3.43 [ <= 0.03 ] m/s TR Peak PG 47 mmHg RVSP 57.00 [ 10.00 - 36.00 ] mmHg PA Pressure 10.00 [ 10.00 - 36.00 ] mmHg Measurement Value Normal Range Measurement Value Normal Range 2D/M Mode Doppler - FINDINGS: Atrial Septum: Normal atrial septum. Left Ventricle: Irregular rhythm. Mild concentric left ventricular hypertrophy. Moderate global left ventricular systolic dysfunction. Ejection fraction is visually estimated at 35 to 40 %. 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 Left Atrium: There is mild enlargement of left atrium. Right Ventricle: Normal right ventricular size. Right Atrium: The right atrium is normal in size. Aortic Valve: Normal structure of the aortic valve. Mitral Valve: Mild mitral annular calcification. Mild to moderate mitral valve regurgitation. Pulmonic Valve: Normal structure of the pulmonic valve. Tricuspid Valve: Normal structure of the tricuspid valve. Moderate pulmonary hypertension based on right ventricular systolic pressure. Estimated peak RVSP is 57 to 61 mmHg. Trivial regurgitation in the tricuspid valve. Pericardium: Normal pericardium with no significant pericardial effusion. Aorta: Normal aortic root. IVC: Normal size and normal respiratory collapse consistent with normal right atrial pressure (<5 mmHg). CONCLUSIONS: Irregular rhythm. Mild concentric left ventricular hypertrophy. Moderate global left ventricular systolic dysfunction. Ejection fraction is visually estimated at 35 to 40 %. 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 There is mild enlargement of left atrium. Mild mitral annular calcification. Mild to moderate mitral valve regurgitation. Normal structure of the aortic valve. Normal structure of thetricuspid valve. Moderate pulmonary hypertension based on right ventricular systolic pressure. Estimated peak RVSP is 57 to 61 mmHg. Trivial regurgitation in the tricuspid valve. Electronically Signed By: Dr Roly Husain 2023-07-18 10:07:11 CONCRETE TESTER XR CHEST 1 VIEW PORTABLE Result Date: 07/16/2023 Narrative: EXAM DESCRIPTION: XR CHEST 1 VIEW REASON FOR STUDY: cough Pt presents [place] [facility] with nausea vomiting diarrhea spo2 89% RA TECHNIQUE: 1 radiographic view(s) of the chest. COMPARISON: 04/14/2019 FINDINGS: Stable cardiomegaly. Poor inspiratory result with bibasilar discoid atelectasis. Mild pulmonary vascular congestion. No airspace consolidation. No pneumothorax. IMPRESSION: Cardiomegaly and mild pulmonary vascular congestion. THIS IS AN ELECTRONICALLY VERIFIED FINAL REPORT 0:43 PM - Electronically signed by Pawan Mata M.D. KT: CAMILO Report ID: [id number] Reading Location: [id number] [email or web address] [email or web address] Facility-Administered Medications Medication Dose Route Frequency Provider Last Rate Last Admin acetaminophen (TYLENOL) tablet 650 mg 650 mg oral Q4H PRN Maciel Jean MD 650 mg at 07/27/23 0350 albuterol 2.5 mg /3 mL (0.083 %) nebulizer solution 2.5 mg 2.5 mg nebulization Q4H PRN (RT) Joycelyn Moseley MD 2.5 mg at 07/20/23 193 amiodarone (PACERONE) tablet 200 mg 200 mg oral BID Roly Husain MD 200 mg at 07/27/23 0943 [START ON 08/02/2023] amiodarone (PACERONE) tablet 200 mg 200 mg oral Daily Roly Husain MD apixaban (ELIQUIS) tablet 2.5 mg 2.5 mg oral Q12H [facility] Karen Zambrano MD 2.5 mg at 07/27/23 0943 bisacodyl EC (DULCOLAX EC) tablet 10 mg 10 mg oral Daily PRN Karen Zambrano MD 10 mg at buPROPion SR (WELLBUTRIN SR) 12 hour tablet 150 mg 150 mg oral BID Maciel Jean MD 150 mg at 07/27/23 0943 carvediloL (COREG) tablet 3.125 mg 3.125 mg oral BID with meals (bkfst, dinner) Roly Husain MD 3.125 mg at 07/27/23 0943 famotidine (PEPCID) tablet 20 mg 20 mg oral Daily Maciel Jean MD 20 mg at 07/27/23 0943 FLUoxetine (PROzac) capsule 40 mg 40 mg oral Daily Maciel Jean MD 40 mg at 07/27/23 0943 furosemide (LASIX) 10 mg/mL injection 60 mg 60 mg intravenous Daily Karen Zambrano MD 60 mg at 07/27/23 0942 HYDROcodone-acetaminophen (NORCO) 5-325 mg per tablet 1 tablet 1 tablet oral Q4H PRN Maciel Jean MD 1 tablet at 07/27/23 1230 influenza quadrivalent [id number] (FLUZONE HIGH DOSE) 240 mcg/0.7 mL vaccine (HIGH DOSE age 65 yearsand up) 0.7 mL 0.7 mL intramuscular During hospitalization Maciel Jean MD magnesium hydroxide (MILK OF MAGNESIA) 80 mg/mL (33.3 mg/mL as elemental magnesium) oral [id number] mL 30 mL oral Daily PRN Karen Zambrano MD 30 mL at 07/25/23 0249 miconazole 2 % powder topical BID Maciel Jean MD Given at 07/27/23 0944 mineral oil (FLEET MINERAL OIL) enema 133 mL 1 enema rectal Daily PRN Karen Zambrano MD ondansetron (ZOFRAN) injection 4 mg 4 mg intravenous Q4H PRN Maciel Jean MD 4 mg at 07/24/23 1003 potassium, sodium phosphates (PHOS-NAK) 280-160-250 mg packet 1 packet 1 packet oral TID AC Krzysztof Sarah MD 1 packet at 07/27/23 1230 psyllium (aspartame) SF (METAMUCIL SF) 3.4 gram packet 1 packet 1 packet oral Nightly Maciel Jean MD 1 packet at 07/23/23 2039 sacubitriL-valsartan (ENTRESTO) 24-26 mg tablet 1 tablet 1 tablet oral BID Roly Husain MD 1 tablet at 07/27/23 0944 sodium chloride 0.9% flush 5-10 mL 5-10 mL intra-catheter Q12H SAL Maciel Jean MD 10 mL at 07/27/23 0944 sodium chloride 0.9% flush 5-20 mL 5-20 mL intra-catheter PRN Maciel Jean MD spironolactone (ALDACTONE) tablet 25 mg 25 mg oral Daily Roly Husain MD 25 mg at 07/27/23 0943 Assessment/Plan Principal Problem: Vomiting and diarrhea Active Problems: Class 3 severe obesity due to excess calories with serious comorbidity and body mass index (BMI) of50.0 to 59.9 in adult ([facility]) Acquired hypothyroidism NSTEMI (non-ST elevated myocardial infarction) ([facility]) ([facility]) Takotsubo cardiomyopathy Mitral regurgitation New onset atrial fibrillation ([facility]) ([facility]) Mild protein-calorie malnutrition ([facility]) ([facility]) Acute hypoxic respiratory failure Non STEMI/troponin elevation 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 Takotsubo cardiomyopathy/low ejection fraction Hypertension Cardiology consulted 07/26 continues on Coreg, Entresto, spironolactone, IV Lasix , Cumulative output of 3.3 L, is severely weak, unable to sit up , PT/OT Advised to have LifeVest upon discharge as per Cardiology 07/27 patient lying in the bed, appears comfortable,placement planned New onset atrial fibrillation 07/26 continues on amiodarone, Eliquis, Coreg 07/27 continues above medications Hematuria Leukocytosis Indwelling Stafford catheter 07/26 monitor CBC 07/27 WBC count of 10.7, continue monitoring Depression Chronic pain syndrome 07/26 continues on Prozac DVT prophylaxis in place My total encounter time was 35 minutes which was spent in the activities documented in the note. This includes time spent prior to the visit and after the visit in direct care of the patient. This time does not include time spent in any separately reportable services. To do this note, dictation phone was used, may result in grammatical errors even after proof reading , please check , thank you. RETE TESTER RETE TESTER * Chris Weir, [facility] - 07/27/2023 5:34 AM CST Pharmacy Consult -Electrolyte Replacement Protocol (in patients not receiving parenteral nutrition) Pharmacist managed electrolyte replacement protocol has been ordered by Dr. Soriano. Exclusion criteria to the pharmacist managed electrolyte protocol (If any present, then please contact the provider to notify them of the applicable exclusion criteria) No Monitoring Guidelines: Electrolyte levels will be ordered by providers as needed. Pertinent Lab Results: Lab Results Component Value Date SODIUM 136 07/27/2023 POTASSIUM 3.5 07/27/2023 MAGNESIUM 2.0 07/24/2023 PHOS 2.3 07/27/2023 CALCIUM 9.0 07/27/2023 ALBUMIN 2.9 (L) 07/21/2023 Corrected Calcium =9.9 mg/dl Estimated Creatinine Clearance: 43 mL/min (by C-G 65 yr and older- minimum SCr 0.8 based on SCr of 0.72 mg/dL). Lab Results Component Value Date CREATININE 0.72 07/27/2023 CREATININE 0.76 07/26/2023 CREATININE 0.76 07/25/2023 IV or PO repletion will be ordered by the pharmacist when levels fall below the desired range basedon the diet ordered. The following electrolyte replacement orders were placed: Give Phos-nak packet three times daily for 3 doses (contains 7.1 meq of potassium per packet) for phosphorus level. Table 1. Serum Potassium (mmol/L) Creatinine Clearance (mL/min) Potassium Replacement 3.3 to 3.5 CrCl > 30 Potassium chloride 20 mEq IV, PO, or per tube for 1 dose CrCl < 30 No replacement 3.0 to 3.2 CrCl > 30 Potassium chloride 40 mEq IV, PO, or per tube for 1 dose CrCl < 30 Potassium chloride 20 mEq IV, PO, or per tube for 1 dose 2.6 to 2.9 CrCl > 30 Potassium chloride 60 mEq IV, PO, or per tube for 1 dose CrCl < 30 Potassium chloride 40 mEq IV, PO, or per tube for 1 dose < 2.6 CrCl > 30 Potassium chloride 60 mEq IV for 1 dose, Repeat level 2 hours after infusion complete, and contact provider CrCl < 30 Potassium chloride 40 mEq IV for 1 dose, Repeat level 2 hours after infusion complete, and contact provider *Normal S. Potassium range 3.3 - 5.1 mmol/L a. Limit potassium chloride to 40 mEq in a single IVPB. Table 2. Ionized calcium (mg/dL) Corrected Serum Calcium (mg/dL) Calcium Replacement 3.01 to 4.49 7.6 to 8.4 Calcium carbonate 500 mg (elemental calcium) PO or per tube TID for 3 doses Or Calcium gluconate 1 g IV for 1 dose < 3 < 7.5 Calcium gluconate 2 g IV for 1 dose Repeat level 4 hours after infusion complete and contact provider *Normal S. Calcium range 8.6 - 10.3 mg/dL a. Serum calcium must be corrected for hypoalbuminemia based on the following equation: Corrected serum calcium = 0.8(4 - Albumin) + Calcium b. Ionized calcium is preferred over serum calcium if both are available c. Calcium carbonate may be administered as a tablet or as the suspension Table 3. Serum Magnesium (mg/dL) Creatinine Clearance (mL/min) Magnesium Replacement 1.0 to 1.5 CrCl > 30 Magnesium oxide 400 mg PO TID x 3 doses Or Magnesium sulfate 2g IV for 1 dose CrCl < 30 Magnesium oxide 400 mg PO TID x 3 doses Or Magnesium sulfate 1g IV for 1 dose <1.0 CrCl > 30 Magnesium sulfate 4g IV for 1 dose Repeat level 2 hours after infusion complete and contact provider CrCl < 30 Magnesium sulfate 2g IV for 1 dose Repeat level 2 hours after infusion complete and contact provider *Normal S. Magnesium range 1.6-2.6 mg/dL Table 4. Serum Phosphorus (mg/dL) Serum Potassium (mmol/L) Oral or per tube Phosphate Replacement 2 to 2.5 > 3.5 K-Phos Neutral 1 tablet (8 mmol) PO or per tube TID x 3 doses < 3.5 Phos NaK 1 packet (8 mmol) PO or per tube TID x 3 doses 1.6 to 1.9 > 3.5 K-Phos Neutral 2 tablets (16 mmol) PO or per tube TID x 3 doses < 3.5 Phos NaK 2 packets (16 mmol) PO or per tube TID x 3 doses < 1.6 Go to the intravenous phosphate replacement table (Table 5) *Normal S. Phosphorus range 2.5 - 4.5 mg/dL a. If potassium is provided as part of the above phosphorus replacement, then count this as part ofthe potassium replacement in Table 1. b. Each K-Phos Neutral tablet contains elemental phosphorus 250 mg (8 mmol), potassium 45 mg (1.1 mEq), and sodium 298 mg (13 mEq). c. Each Phos-NaK packet contains elemental phosphorus 250 mg (8 mmol), potassium 280 mg (7.1 mEq), and sodium 160 mg (6.9 mEq). Table 5. Serum Phosphorus (mg/dL) Intravenous Phosphate Replacement 2 to 2.5 Phosphate 0.16 mmol/kgb IV for 1 dose 1.6 to 1.9 Phosphate 0.32 mmol/kgb IV for 1 dose < 1.6 Phosphate 0.64 mmol/kgb IV for 1 dose Repeat level 4 hours after infusion complete and contact provider *Normal S. Phosphorus range 2.5 - 4.5 mg/dL a. Formulation (sodium or potassium salt) will be determined by potassium requirements as determined in Table 1. b. If potassium is provided as part of the above phosphorus replacement, then count this as part ofthe potassium replacement in Table 1. Each mmol of IV potassium phosphate contains 1.5 mEq of potassium. b. Round to the nearest 5 mmol phosphate. Limit phosphate repletion to 30 mmoles in a single IVPB. c. Use adjusted body weight for patients with a BMI > 30 Thank you, Chris Weir [facility] Pharmacy department RETE TESTER * Xiomara Guzman, OT - 07/26/2023 3:46 PM CST Occupational Therapy 07/26/23 1428 General Session Type Treatment OT Received On 07/26/23 Safe Environment Arm band checked;Patient found in supine;Session completed bedside Subjective Agreeable to Therapy Family/Caregiver Present No Precautions Precautions Fall risk Pain Assessment Pain Assessment 0-10 Pain Score 3 Pain Location Generalized Clinical Progression Not changed Pain Interventions Repositioned;RN Notified Static Sitting Balance Static Sitting-Balance Support Bilateral upper extremity supported;Feet supported Static Sitting-Sitting Surface Bed Static Sitting-Level of Assistance Minimum assistance Grooming Grooming: Where assessed Edge of bed Grooming: Level of assistance Moderate Assist (VC for encouragement) Grooming: Assistance with Brushing hair;Reaching all areas of head/face;Safety Bed Mobility 1 Bed Mobility From 1 Supine Bed Mobility Type 1 To and from Bed Mobility to 1 Edge of bed Level of Assistance 1 Maximum Assist Bed Mobility Comments 1 Max A for LE movement and for trunk, pt. required several attempts before being able to fully sit at EOB, assist for scooting, pt. able to sit EOB for approx 2 minutes to brush hair then returned to supine with Max A for LEs and for positioning in bed Transfers Transfer (Pt. declined all transfers this session, pt. attempted to complete a lateral scoot toward HOB but was unable to clear from surface of bed) Cognition Cognition Comments Pt. oriented but confusion present during session Overall Cognitive Status Impaired Orientation Oriented X4 (person, place, time, situation) Compliance/Behavior Easy to engage Activity Tolerance Endurance Tolerates less than 10 min activity no significant change in vital signs Activity Tolerance Comments Rest breaks with activity, pt. tolerates sitting at EOB for 2-3 minutesbefore needing to lay back down in bed Safe Environment End of Therapy Session Safe Environment End of Therapy Session Patient left supine in bed;Bed alarm in place and activated;RN notified;Call light within reach;Overbed table within reach Assessment Prognosis Good Problem List Decreased upper extremity strength;Decreased endurance;Decreased balance;Decreased functional mobility;Decreased ADL independence;Decreased safe judgment during ADL Plan Plan Continue with current plan;If this is the last note, consider this the discharge summary Recommendation/Plan OT Recommendation Fdc Facility Patient at high risk for Falls;Readmission;Injury due to decreased ability to care for self;Injury due to reduced functional status;Injury due to impaired cognition;Injury at home as patient has not returned to prior level of function;Injury due to balance deficits;Developing impaired skin integrity Recommend SNF due to Risk of injury at home;Unable to safely care for self in the home;Skilled therapy needed to address care for self in the home;Skilled therapy needed to address functional deficits;Skilled therapy needed for patient to return to prior level of independence OT Frequency during current admission 2-3x/wk (Mon-Fri, Sat PRN) Treatment/Interventions during current admission ADL/IADL retraining;Balance Training;Bed mobility;Functional activity;Therapeutic activity Progress during current admission Progressing toward goals RETE TESTER * Krzysztof Sarah MD - 07/26/2023 2:41 PM CST General Medicine Daily Progress OBJECTIVE/SUBJECTIVE : [age] year lady with history of morbid obesity, hypertension, CKD, depression, hypothyroidism, chronic pain syndrome, COPD, asthma, was admitted for acute hypoxic respiratory failure, nausea/vomiting. She was previously admitted to intensive care unit. She was diagnosed as takotsubos cardiomyopathy, new onset atrial fibrillation, hyponatremia, hematuria 07/26 patient lying in the bed, appears comfortable, plan of care discussed with at bedside Vitals: 24hr Min/Max: Temp Min: 36 ??C (96.8 ??F) Max: 36.5 ??C (97.7 ??F) Pulse Min: 66 Max: 91 BP Min: 106/56 Max: 123/53 Resp Min: 16 Max: 22 SpO2 Min: 96 % Max: 98 % Most Recent : Vitals: 07/26/23 0400 07/26/23 0600 07/26/23 0745 07/26/23 1120 BP: 123/53 110/67 BP Location: Left arm Left arm Patient Position: Lying Lying;HOB 30 degrees Pulse: 66 67 66 68 Resp: 22 20 Temp: 36.3 ??C (97.4 ??F) 36.5 ??C (97.7 ??F) TempSrc: Temporal Temporal SpO2: 97% 97% Weight: (!) 136.7 kg (301 lb 5.9 oz) Height: I/O last 2 completed shifts: In: 590 [P.O.:570; I.V.:20] Out: 1000 [Urine:1000] No intake/output data recorded. Physical Exam HEENT: NC Atraumatic , Sclera white, pupils reactive Skin: No rash, jaundice Neck: Supple, no thyromegaly Chest: breath sounds are decreased bilaterally Heart: regular rate and rhythm no murmur no clicks Abdomen: Morbid obesity Musculoskeletal : Lying in the bed Ext: No clubbing , pedal edema. Neurological : No weakness, no focal deficit. Mental status: Awake and alert, answering questions appropriately Lab/Radiology/Diagnostic Review: Recent Results (from the past 24 hour(s)) Phosphorus Collection Time: 07/26/23 5:42 AM Result Value Ref Range Phosphorus, pl 2.9 2.3 - 4.5 mg/dL CBC without differential Collection Time: 07/26/23 5:42 AM Result Value Ref Range WBC 11.8 (H) 3.8 - 9.9 K/cumm Hgb 12.5 11.9 - 15.5 g/dL Hct 37.1 35.6 - 45.5 % Plt 237 150 - 400 K/cumm MPV 8.6 (L) 9.1 - 12.3 fL RBC 3.84 (L) 3.90 - 5.20 M/cumm MCV 96.6 (H) 81.3 - 96.4 fL MCH 32.6 27.1 - 33.3 pg MCHC 33.7 32.3 - 35.7 g/dL RDW CV 14.7 11.1 - 14.9 % RDW SD 49.9 (H) 35.7 - 48.1 fL NRBC abs 0.07 (H) 0.00 - 0.01 K/cumm Basic metabolic panel Collection Time: 07/26/23 5:42 AM Result Value Ref Range Sodium 139 135 - 145 mmol/L Potassium, pl 3.6 3.3 - 4.9 mmol/L Chloride 96 (L) 97 - 110 mmol/L CO2 34 (H) 22 - 32 mmol/L Anion gap 9 2 - 15 mmol/L BUN 18 6 - 25 mg/dL Creatinine 0.76 0.60 - 1.10 mg/dL Glucose 95 70 - 199 mg/dL Calcium 8.8 8.5 - 10.3 mg/dL eGFR Collection Time: 07/26/23 5:42 AM Result Value Ref Range eGFR 81 mL/min/1.73 m2 Transesophageal Echocardiogram (SOPHIE) W Possible Cardioversion Result Date: 07/20/2023 Narrative: Daniela Job ID: [id number] [facility] Document ID: [id number] Dictated date/time: [id number] NAME OF PROCEDURE 1. Transesophageal echocardiogram. 2. Cardioversion of atrial fibrillation. PROCEDURE The patient was kept in ICU bed 7. Consent form was signed. She was not allergic to any medication we are going to be giving her. Sedation time was about 25 minutes. Patient received in small increments 1 mg IV Versed and 50 mcg IV fentanyl. Topical anesthetics were given to the retropharynx twice. When well sedated, the probe went down to the distal esophagus very easily. FINDINGS The LV function was quite diminished with apical akinesis. Ejection fraction estimated at 25% to 30% at best. No thrombus in the left ventricle. Mitral valve leaflets opening and closing well with evidence of moderate to severe mitral regurgitation. Left atrium is definitely moderately dilated. Left atrial appendage is well seen and has no thrombus. Left atrial appendage velocity was diminished at 0.4 m/sec as expected from atrial fibrillation. Tricuspid valve leaflets opening and closing well with evidence of mild to moderate tricuspid regurgitation. The pulmonic valve is opening and closing well with pulmonic insufficiency. Aortic valve is tricuspid in nature and without any regurgitation orvegetation. On the way out, no hypermobile elements noted in the aortic arch. CONCLUSION 1. No hypermobile elements in aortic arch. 2. No thrombus left ventricular apex or left atrial appendage. 3. Moderately dilated left atrium. 4. Severely diminished global LV function with apical akinesis. LVEF of 25% to 30%. 5. Pulmonic insufficiency. 6. Tricuspid regurgitation, mild to moderate. 7. Mitral regurgitation, moderate to severe. 8. No clot in left atrial appendage with a low left atrial appendage velocity of 0.4 m/sec. After making sure patient continues to be well sedated, a 360 joule synchronized biphasic shock converted her from an irregular atrial fibrillation rhythm to regular rhythm that looks to be now atrial flutter. The patient will be continued on p.o. amiodarone after discontinuation of IV amiodarone. We may try to cardiovert her out of atrial flutter in a few weeks. Job ID/Internal Job ID: [id number] ECG 12 lead Result Date: 07/20/2023 Narrative: Vent Rate: 70 bpm RR Interval: 846 msec WV Interval: 0 msec QRS Duration: 154 msec QT Interval: 465 msec QTC Interval: 487 msec P-R-T Stinnett: [id number] - 69 - 195 degrees IMPRESSION: ATRIAL FLUTTER LEFT BUNDLE BRANCH BLOCK [120+ ms QRS DURATION, 80+ ms Q/S IN V1/V2, 85+ ms R IN I/aVL/V5/V6] ABNORMAL ECG Electronically Signed By: John Dominguez MD XR Chest 1 View Result Date: 07/19/2023 Narrative: EXAM DESCRIPTION: XR CHEST 1 VIEW REASON FOR STUDY: PICC placement. TECHNIQUE: Frontal radiographic view(s) of the chest. COMPARISON: Chest radiograph 07/16/2023 and 04/14/2019. FINDINGS: LUNGS: No focal consolidation, noting redemonstration of diffuse coarsened pulmonary markings. No large pleural effusion. No pneumothorax. HEART/MEDIASTINUM: Stable cardiomediastinal silhouette, noting mild cardiomegaly. LINES/TUBES: Interval placement of right upper extremity PICC with tip termination projecting over the superior vena cava. BONES: No acute osseous abnormality. IMPRESSION: Interval placement of right upper extremity PICC with tip termination projecting over the superior vena cava. No radiographic evidence of acute cardiopulmonary process. THIS IS AN ELECTRONICALLY VERIFIED FINAL REPORT 07/19/2023 2:14 PM - Electronically signed by Blaze Schwartz M.D. DYANA: DYANA Report ID: [id number] Reading Location: [id number] Cardiac Catheterization Result Date: 07/19/2023 Narrative: [facility] Job ID: [id number] [facility] Document ID: [id number] Dictated date/time: [id number] CARDIAC CATHETERIZATION A 78-year-old with obesity and shortness of breath. Echocardiogram showed severe segmental LV dysfunction. She is now having chest pain. She was referred for catheterization. INDICATION FOR PROCEDURE Takotsubo cardiomyopathy. PROCEDURE PERFORMED Left heart catheterization, selective coronary angiography, left ventriculography. After obtaining informed consent, patient was brought to the cardiac computer lab para professional. She was prepped and draped in the usual sterile fashion. Conscious sedation was administered by the computer lab para professional staff under my supervision. A total of 0.5 mg Verse d and 25 mcg of fentanyl were given. See procedure log for further details. Total sedation time was16 minutes. A 6-[place]i sheath was inserted in the right radial artery. Combination of Angiomax, lidocaine, and nitroglycerin was administered intra-arterially. The selective coronary cannulation was performed using standard Eddy catheters. Left ventriculography was performed in the MATA projection using pigtail followed by left heart pullback. At the end of procedure, the arterial sheath was removed and hemostasis achieved by applying TR band to the right wrist. FINDINGS: HEMODYNAMICS: LV pressure was 120/25, ascending aortic pressure 120/80. There was significant respiratory variations of her pressures. LEFT VENTRICULOGRAPHY: This showed akinesis of the anterolateral apical and diaphragmatic segment. The basal segments were reasonably well. Overall ejection fraction 20% to 25%. There was moderate +2 mitral regurgitation. RIGHT CORONARY ARTERY: The right coronary artery was a large dominant vessel and gives distally medium-sized posterior descending and several posterolateral branches. The right coronary system was angiographically normal. LEFT CORONARY ARTERY: The left main coronary artery, the circumflex, the obtuse marginal branches were angiographically normal. The left anterior descending was also patent. There was possible muscle bridge in the mid segment. IMPRESSION 1. Angiographically no significant obstructive coronary artery disease. 2. Segmental left ventricular systolic dysfunction consistent with Takotsubo cardiomyopathy. 3. Moderate mitral regurgitation. 4. Elevated left ventricular diastolic pressure. CARE PLAN Medical therapy per primary team. John Dominguez MD Job ID/Internal Job ID: [id number] ECG 12 lead Result Date: 07/19/2023 Narrative: Vent Rate: 91 bpm RR Interval: 655 msec WV Interval: 0 msec QRS Duration: 123 msec QT Interval: 420 msec QTC Interval: 469 msec P-R-T Stinnett: [id number] - 65 - 208 degrees IMPRESSION: ATRIAL FIBRILLATION MODERATE INTRAVENTRICULAR CONDUCTION DELAY [110+ ms QRS DURATION] ST DEVIATION AND MODERATET-WAVE ABNORMALITY, CONSIDER ANTEROLATERAL ISCHEMIA [-0.1+ mV T-WAVE IN V3-V6] ST DEVIATION AND MODERATE T-WAVE ABNORMALITY, CONSIDER INFERIOR ISCHEMIA [-0.1+ mV T-WAVE IN II/aVF] ABNORMAL ECG Compared to prior EKG, anterolateral T- wave inversions are new QT interval has increased Electronically Signed By: John Dominguez MD ECG 12 lead Result Date: 07/18/2023 Narrative: Vent Rate: 100 bpm RR Interval: 597 msec WV Interval: 0 msec QRS Duration: 128 msec QT Interval: 355 msec QTC Interval: 412 msec P-R-T [place]ett: [id number] - 33 - 56 degrees IMPRESSION: UNCERTAIN REGULAR RHYTHM, probably junctional POSSIBLE LATERAL MYOCARDIAL INFARCTION , OF INDETERMINATE AGE [30ms Q WAVE IN I/aVL/V5/V6] CRITICAL TEST RESULT Compared to prior EKG, P-waves are not present Electronically Signed By: John Dominguez MD ECG 12 lead Result Date: 07/18/2023 Narrative: Vent Rate: 85 bpm RR Interval: 700 msec WV Interval: 0 msec QRS Duration: 123 msec QT Interval: 403 msec QTC Interval: 445 msec P-R-T [place]: [id number] - 33 - 52 degrees IMPRESSION: UNCERTAIN REGULAR RHYTHM, probably junctional POSSIBLE LATERAL MYOCARDIAL INFARCTION , OF INDETERMINATE AGE [30 ms Q WAVE IN I/aVL/V5/V6] ABNORMAL ECG NO CHANGE FROM PREVIOUS TRACING NOTED Electronically Signed By: John Dominguez MD Transthoracic Echo (TTE) Complete W Doppler/CF Result Date: 07/18/2023 Narrative: [address] [place] [address] Echocardiogram Report Patient Name: PEBBLES LAL L : 1945 Study Date: 07/18/2023 8:50:58 AM Gender: F Tech: Location: [place] [address] Ref Provider: GIANLUCA SORIANO Height(Cm): 152 BSA: 2.39 Weight(Kg): 135.2 Quality: Adequate Order Provider: GRACIELA SORIANOOPROCEDURES: Echocardiographic Report: Transthoracic echocardiogram with complete 2D, M-Mode, and color Doppler examination. INDICATIONS: Congestive Heart Failure. Measurements: 2D/M Mode Doppler Measu rement Value Normal Range Measurement Value Normal Range EF Teich MM 47.3 [ 55.0 - 70.0 ] percent DANIELLE Vmax 2.33 [ 2.00 - 4.00 ] cm2 LVIDd MM 6.07 [ 3.90 - 5.30 ] cm AV Mean PG 11 [ 2 - 4 ] mmHg LVIDs MM 4.60 [ 2.30 - 3.90 ] cm AV Peak Morales 1.48 [ <= 0.02 ] m/s LVPWd MM 0.87 [ 0.60 - 1.00 ] cm AV VTI 25.96 cm IVSd MM 0.99 [ 0.60 - 0.90 ] cm LVOT Diam 2.18 [ 1.70 - 2.10 ] cm LA Dimension MM 5.1 5 [ 2.70 - 3.80 ] cm LVOT Peak Morales 0.92 [ <= 0.01 ] m/s AoR Diam 2D 2.83 [ 2.60 - 3.70 ] cm LVOTVTI 16.52 [ 20.00 - 30.00 ] cm AoR Diam MM 3.29 [ 2.60 - 3.70 ] cm MV Mean PG 2 [ <= 5 ] mmHg PVPeak Morales 0.77 m/s TR Peak Morales 3.43 [ <= 0.03 ] m/s TR Peak PG 47 mmHg RVSP 57.00 [ 10.00 - 36.00 ] mmHg PA Pressure 10.00 [ 10.00 - 36.00 ] mmHg Measurement Value Normal Range Measurement Value Normal Range 2D/M Mode Doppler - FINDINGS: Atrial Septum: Normal atrial septum. Left Ventricle: Irregular rhythm. Mild concentric left ventricular hypertrophy. Moderate global left ventricular systolic dysfunction. Ejection fraction is visually estimated at 35 to 40 %. 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 Left Atrium: There is mild enlargement ofleft atrium. Right Ventricle: Normal right ventricular size. Right Atrium: The right atrium is normal in size. Aortic Valve: Normal structure of the aortic valve. Mitral Valve: Mild mitral annular calcification. Mild to moderate mitral valve regurgitation. Pulmonic Valve: Normal structure of the pul bill valve. Tricuspid Valve: Normal structure of the tricuspid valve. Moderate pulmonary hypertension based on right ventricular systolic pressure. Estimated peak RVSP is 57 to 61 mmHg. Trivial regurgitation in the tricuspid valve. Pericardium: Normal pericardium with no significant pericardial effusion. Aorta: Normal aortic root. IVC: Normal size and normal respiratory collapse consistent with normal right atrial pressure (<5 mmHg). CONCLUSIONS: Irregular rhythm. Mild concentric left ventricular hypertrophy. Moderate global left ventricular systolic dysfunction. Ejection fraction is visually estimated at 35 to 40 %. 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 There is mild enlargement of left atrium. Mild mitral annular calcification. Mild to moderate mitral valve regurgitation. Normal structure of the aortic valve. Normal structure of the tricuspid valve. Moderate pulmonary hypertension based on right ventricular systolic pressure. Estimated peak RVSP is 57 to 61 mmHg. Trivial regurgitation in the tricuspid valve. Electronically Signed By: Dr Roly Husain 2023-07-18 10:07:11 CONCRETE TESTER XR CHEST 1 VIEW PORTABLE Result Date: 07/16/2023 Narrative: EXAM DESCRIPTION: XR CHEST 1 VIEW REASON FOR STUDY: cough Pt presents [place] [facility] with nausea vomiting diarrhea spo2 89% RA TECHNIQUE: 1 radiographic view(s) of the chest. COMPARISON: 04/14/2019 FINDINGS: Stable cardiomegaly. Poor inspiratory result with bibasilar discoid atelectasis. Mild pulmonary vascular congestion. No airspace consolidation. No pneumothorax. IMPRESSION: Cardiomegaly and mild pulmonary vascular congestion. THIS IS AN ELECTRONICALLY VERIFIED FINAL REPORT 0:43 PM - Electronically signed by Pawan Mata M.D. KT: CAMILO Report ID: [id number] Reading Location: [email or web address] Facility-Administered Medications Medication Dose Route Frequency Provider Last Rate Last Admin acetaminophen (TYLENOL) tablet 650 mg 650 mg oral Q4H PRN Maciel Jean MD 650 mg at 07/22/23 0758 albuterol 2.5 mg /3 mL (0.083 %) nebulizer solution 2.5 mg 2.5 mg nebulization Q4H PRN (RT) Joycelyn Moseley MD 2.5 mg at 07/20/23 1932 amiodarone (PACERONE) tablet 200 mg 200 mg oral BID Roly Husain MD 200 mg at 07/26/23 0833 [START ON 08/02/2023] amiodarone (PACERONE) tablet 200 mg 200 mg oral Daily Roly Husain MD apixaban (ELIQUIS) tablet 2.5 mg 2.5 mg oral Q12H SAL Karen Zambrano MD 2.5 mg at 07/26/23 0834 bisacodyl EC (DULCOLAX EC) tablet 10 mg 10 mg oral Daily PRN Karen Zambrano MD buPROPion SR (WELLBUTRIN SR) 12 hour tablet 150 mg 150 mg oral BID Maciel Jean MD 150 mg at 07/26/23 0834 carvediloL (COREG) tablet 3.125 mg 3.125 mg oral BID with meals (bkfst, dinner) Roly Husain MD 3.125 mg at 07/26/23 0834 famotidine (PEPCID) tablet 20 mg 20 mg oral Daily Maciel Jean MD 20 mg at 07/26/23 0834 FLUoxetine (PROzac) capsule 40 mg 40 mg oral Daily Maciel Jean MD 40 mg at 07/26/23 0834 furosemide (LASIX) 10 mg/mL injection 60 mg 60 mg intravenous Daily Karen Zambrano MD 60 mg at 07/26/23 0833 HYDROcodone-acetaminophen (NORCO) 5-325 mg per tablet 1 tablet 1 tablet oral Q4H PRN Maciel Jean MD 1 tablet at 07/20/23 0212 influenza quadrivalent [id number] (FLUZONE HIGH DOSE) 240 mcg/0.7 mL vaccine (HIGH DOSE age 65 yearsand up) 0.7 mL 0.7 mL intramuscular During hospitalization Maciel Jean MD magnesium hydroxide (MILK OF MAGNESIA) 80 mg/mL (33.3 mg/mL as elemental magnesium) oral mL 30 mL oral Daily PRN Karen Zambrano MD 30 mL at 07/25/23 0249 miconazole 2 % powder topical BID Maciel Jean MD Given at 07/26/23 0834 mineral oil (FLEET MINERAL OIL) enema 133 mL 1 enema rectal Daily PRN Karen Zambrano MD ondansetron (ZOFRAN) injection 4 mg 4 mg intravenous Q4H PRN Maciel Jean MD 4 mg at 07/24/23 1003 psyllium (aspartame) SF (METAMUCIL SF) 3.4 gram packet 1 packet 1 packet oral Nightly Maciel Jean MD 1 packet at 07/23/23 2039 sacubitriL-valsartan (ENTRESTO) 24-26 mg tablet 1 tablet 1 tablet oral BID Roly Husain MD 1 tablet at 07/26/23 0833 sodium chloride 0.9% flush 5-10 mL 5-10 mL intra-catheter Q12H SAL Maciel Jean MD 10 mL at 07/26/23 0834 sodium chloride 0.9% flush 5-20 mL 5-20 mL intra-catheter PRN Maciel Jean MD spironolactone (ALDACTONE) tablet 25 mg 25 mg oral Daily Roly Husain MD 25 mg at 07/26/23 0834 Assessment/Plan Principal Problem: Vomiting and diarrhea Active Problems: Class 3 severe obesity due to excess calories with serious comorbidity and body mass index (BMI) of50.0 to 59.9 in adult (HCC) Acquired hypothyroidism NSTEMI (non-ST elevated myocardial infarction) (CMS/HCC) ([facility]) Takotsubo cardiomyopathy Mitral regurgitation New onset atrial fibrillation (CMS/HCC) ([facility]) Mild protein-calorie malnutrition (CMS/HCC) ([facility]) Acute hypoxic respiratory failure Non STEMI/troponin elevation 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 Takotsubo cardiomyopathy/low ejection fraction Hypertension Cardiology consulted 07/26 continues on Coreg, Entresto, spironolactone, IV Lasix , Cumulative output of 3.3 L, is severely weak, unable to sit up , PT/OT Advised to have life vest upon discharge New onset atrial fibrillation 07/26 continues on amiodarone, Eliquis, Coreg Hematuria Indwelling Stafford catheter 07/26 monitor CBC Depression Chronic pain syndrome 07/26 continues on Prozac DVT prophylaxis in place My total encounter time was 35 minutes which was spent in the activities documented in the note. This includes time spent prior to the visit and after the visit in direct care of the patient. This time does not include time spent in any separately reportable services. To do this note, dictation phone was used, may result in grammatical errors even after proof reading , please check , thank you. RETE TESTER RETE TESTER RETE TESTER * Ave Fagan, AUTOCLAVE OPERATOR - 07/26/2023 2:22 PM CST Physical Therapy 07/26/23 1100 PT Last Visit Session Type Treatment Safe Environment Arm band checked;Patient found in supine;Session completed bedside Pain Assessment Pain Assessment No/denies pain Static Sitting Balance Static Sitting-Balance Support Bilateral upper extremity supported;Feet supported Static Sitting-Sitting Surface Bed Static Sitting-Level of Assistance Minimum assistance Static Sitting-Comment/# of Minutes pt sat eob x1 min intially pt feel backwards on bed x2 Bed Mobility 1 Bed Mobility From 1 Supine Bed Mobility Type 1 To Bed Mobility to 1 Edge of bed Level of Assistance 1 Maximum Assist Bed Mobility Comments 1 x2 trials sat eob x1 mins min assist Bed Mobility 2 Bed Mobility From 2 Edge of bed Bed Mobility Type 2 To Bed Mobility to 2 Supine Level of Assistance 2 Dependent Bed Mobility Comments 2 dep to scoot up in bed Safe Environment End of Therapy Session Safe Environment End of Therapy Session Patient left supine in bed;Call light within reach;Overbed table within reach Assessment Prognosis Guarded Problem List Decreased strength;Decreased range of motion;Decreased endurance;Impaired balance;Decreased mobility Plan Plan If this is the last note, consider this the discharge summary Recommendation/Plan PT Recommendation/Plan Fdc Facility Patient at high risk for Falls;Readmission;Injury due to decreased ability to care for self;Injury due to reduced functional status;Injury due to balance deficits Recommend SNF due to Risk of injury at home;Skilled therapy needed to address functional deficits;Skilled therapy needed for patient to return to prior level of independence;Skilled therapy needed toaddress care for self in the home;Unable to safely care for self in the home RETE TESTER * CarLa escobarney - 07/26/2023 1:33 PM CST NUTRITION ASSESSMENT Nutrition Status: Patient at risk for malnutrition, but does not meet ASPEN criteria for malnutrition. REASON FOR ASSESSMENT: Follow Up Encounter Date: 07/26/23 1:36 PM Admission Date: 07/16/2023 LOS: 9 days HPI: Patient is a 78 y.o. female with a PMH of lymphedema who presented to the ED with nausea, emesis and diarrhea as well as a room air SpO2 of 89%. Aside from her hypoxia she in in NSR and neither hypo-or hypertensive. Her ED workup demonstrated so mild pulmonary edema, a NT pro-BNP of 1392 and a mild troponin elevation of 57 -> 226. Her CBC is remarkable for a leukocytosis and her UA was indicative of pyuria and has reflexed to culture. Blood cultures were obtained, and a AUTOMATIC [employer]OR [employer]CH[employer]IC swab RVP was negative. She is being admitted to the ICU for close observation. 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 HX OTHER MEDICAL IGT Hypertension Moderate episode of recurrent major depressive disorder (HCC) 12/05/2017 Past Surgical History: Procedure Laterality Date RHINOPLASTY RHINOPLASTY Social History Tobacco Use Smoking status: Never Smokeless tobacco: Never Substance and Sexual Activity Drug use: No Sexual activity: Defer Alcohol Use: Not At Risk (07/17/2023) AUDIT-C Frequency of Alcohol Consumption: Never Average Number of Drinks: Patient does not drink Frequency of Binge Drinking: Never MEDICATION/LAB REVIEW: Scheduled Meds: amiodarone, 200 mg, oral, BID [START ON 08/02/2023] amiodarone, 200 mg, oral, Daily apixaban, 2.5 mg, oral, Q12H SAL buPROPion SR, 150 mg, oral, BID carvediloL, 3.125 mg, oral, BID with meals (bkfst, dinner) famotidine, 20 mg, oral, Daily FLUoxetine, 40 mg, oral, Daily furosemide, 60 mg, intravenous, Daily miconazole, , topical, BID psyllium (aspartame) SF, 1 packet, oral, Nightly sacubitriL-valsartan, 1 tablet, oral, BID sodium chloride 0.9%, 5-10 mL, intra-catheter, Q12H SAL spironolactone, 25 mg, oral, Daily Continuous Infusions: PRN Meds: acetaminophen albuterol bisacodyl EC HYDROcodone-acetaminophen influenza quadrivalent [id number] magnesium hydroxide mineral oil ondansetron sodium chloride 0.9% Recent Labs Lab Units 07/26/23 0542 07/25/23 0853 07/24/23 0432 07/22/23 0514 07/21/23 0630 SODIUM mmol/L 139 < > 136 < > 131* POTASSIUM PLASMA mmol/L 3.6 < > 3.8 < > 3.9 CHLORIDE mmol/L 96* < > 96* < > 94* CO2 mmol/L 34* < > 31 < > 27 BUN SERUM mg/dL 18 < > 22 < > 25 CREATININE mg/dL 0.76 < > 0.77 < > 0.75 [id number] mL/min/1.73 m2 81 < > 80 < > 82 CALCIUM mg/dL 8.8 < > 9.1 < > 9.4 ALBUMIN g/dL -- -- -- -- 2.9* PHOSPHORUS PLASMA mg/dL 2.9 < > 2.3 < > 2.3 MAGNESIUM mg/dL -- -- 2.0 -- -- < > = values in this interval not displayed. Recent Labs Lab Units 07/26/23 0542 07/25/23 0853 07/24/23 0432 07/23/23 0634 07/23/23 0238 07/22/23 0514 07/21/23 0630 GLUCOSE mg/dL 95 101 98 98 -- 100 105 POC GLUCOSE MONITOR mg/dL -- -- -- -- 90 -- -- No results found for: ALT , AST , BILIRUBIN , ALKPHOS , LIPASE Lab Results Component Value Date HGBA1C 5.1 11/20/2021 HDL 76 03/21/2023 LDLCALC 62 03/21/2023 CHOL 150 03/21/2023 TRIG 61 03/21/2023 NURSING ASSESSMENT: Last BM Date: (pt unable to remember) Bowel Sounds (All Quadrants): Active Dane Scale Score: 16 Skin Integrity: Bruising, Excoriation, Redness Pressure Ulcer/Pressure Injury 07/17/23 Right Buttocks Large dark purple bruise to right buttocks-Pressure Ulcer Status: Healing Edema: No pitting Vital Signs BP: 110/67 Temp: 36.5 ??C (97.7 ??F) Pulse: 68 Resp: 20 SpO2: 97 % Intake/Output Summary (Last 24 hours) at 07/26/2023 1336 Last data filed at 07/26/2023 0530 Gross per 24 hour Intake 340 ml Output 1000 ml Net -660 ml Adult Malnutrition Scoring Tool (MST) What diet do you follow at home?: Regular Have You Recently Lost Weight Without Trying?: No Have you been eating poorly because of a decreased appetite?: No Malnutrition Screening Tool (MST) Score: 0 Hunger Screen - Admission Within the past 12 months the food we bought just didn't last and we didn't have money to get more.: Never true Within the past 12 months we worried whether our food would run out before we got money to buy more.: Never true Anthropometrics Weight: (!) 136.7 kg (301 lb 5.9 oz) Admission Weight : 135.4 kg Weight Change: 1.69 kg (3.74 lbs) IBW/kg (Calculated) : 45.4 kg Height: 152.4 cm (5') Weight in (lb) to have BMI = 25: 127.7 BMI (Calculated): 58.9 BMI Classification: BMI > or equal to 40.0 Class III Wt Readings from Last 10 Encounters: 07/26/23 (!) 136.7 kg (301 lb 5.9 oz) 03/28/23 131.1 kg (289 lb) 09/20/22 131.1 kg (289 lb) 03/15/22 127 kg (280 lb) 04/19/19 124.7 kg (275 lb) 03/15/17 135.2 kg (298 lb) 09/01/16 135.2 kg (298 lb) 03/10/16 126.1 kg (278 lb) 09/04/15 129.7 kg (286 lb) 03/04/15 130.6 kg (288 lb) ESTIMATED NEEDS: Total Kcal/kg Estimated Needs : 1783.6 Kcal/k. Type of Weight Used for Estimated Kcals: Current Total Protein Estimated Needs (gm): 54.48 Protein Needs Based on g/k.2 Type of Weight Used for Estimated Protein : [place] Total Fluid Estimated Needs: 1783.6 Fluid Needs Based on : 1 ml/kcal Type of Weight Used for Estimated Fluid Needs: Current Dietary Orders (From admission, onward) Start Ordered 07/24/23 1141 Adult Diet Special; 4 GM Sodium; 1500mL = Diet 1050/Nursing 450 Diet effective now Question Answer Comment ([facility]) Diet Type Special Fat / Sodium Restriction: 4 GM Sodium Fluid restriction dietary / 24h: 1500mL = Diet 1050/Nursing 450 07/24/23 1140 07/20/23 1700 Oral Nutrition Supplements Select Supplement: Ensure High Protein - Any Flavor With Breakfast and Dinner Question: Select Supplement: Answer: Ensure High Protein - Any Flavor 07/20/23 1418 Allergies: Reviewed. IMPRESSION: Unable to interview pt d/t sleeping soundly. Per family at bedside, pt with bites at meals complaining of not being hungry. Family reports this was going on prior to admit, unable to provide exact timeline and unsure of wt changes. PO intake average, 11.4%. Documented ONS intake 50 - 100% (limited,only 3 intakes documented). Drank majority of ONS this morning. 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 Constipated. Per nursing, refusing constipation medication. Wt loss during admission. On Lasix. Weights/Vitals Height Weight (LB) Weight (KG) Weight Method 07/16/2023 5' 2 260 lb 2.3 oz 118 kg 07/17/2023 5' 0 298 lb 8.1 oz 135.4 kg Bed scale 07/18/2023 5' 0 298 lb 135.172 kg 07/20/2023 302 lb 7.5 oz (H) 137.2 kg (H) Bed scale 07/22/2023 310 lb 10.1 oz (H) 140.9 kg (H) Bed scale 07/23/2023 306 lb 3.5 oz (H) 138.9 kg (H) Bed scale 07/25/2023 297 lb 9.9 oz 135 kg Bed scale 07/26/2023 301 lb 5.9 oz (H) 136.7 kg (H) ASPEN MALNUTRITION ASSESSMENT: Date of completion: 07/26/23 ASPEN/AND Malnutrition Screening: Acute illness or injury mild/moderate Energy Intake: < 75% energy intake compared to estimated energy needs > 7 days Patient Meets Criteria for Mild Malnutrition: Yes NUTRITION FOCUSED PHYSICAL EXAM: N/A NUTRITION DIAGNOSIS: Nutrition Diagnosis 1: Inadequate oral intake Related to: Loss of appetite Evidenced by: PO under 50% INTERVENTION(S): Summary: Modify supplement Add Magic cup TID per trial Consider appetite stimulant if PO intakes remain poor. GOAL(S): Oral intake to meet 75% estimated nutritional needs by next assessment MONITORING/EVALUATION: Labs, Plan of care, PO intake, Supplement tolerance, Discharge plans Diet Instructions Continue to follow a Low Sodium diet and limit sodium intake to less than 2,000mg per day. Avoid foods that are high sources of sodium, such as fast foods, fried/breaded foods, pickled foods, canned goods, deli meats and gravies/sauces. Use alternatives to season foods such as Mrs. MENDOSA and other he rbs. Additional resources are available online from the [place] [employer] at www.heart.org/en/healthy-living/healthy-eating Oral nutritional supplement 2 - 3 x daily until intakes consistently adequate. If poor intakes and/or unintended weight loss occur on discharge follow up with primary care physician. Call [facility] Dietitian's office at [phone] for questions about your diet. If interested in nutrition counseling, ask your doctor for referral and call [phone] to make an appointment. Olive Yoon RDN [facility] Inpatient Office: [phone] Weekend Coverage: [phone] RETE TESTER RETE TESTER * Karen Zambrano MD - 07/25/2023 11:59 AM CST General Medicine Daily Progress SUBJECTIVE Chief complaint of severe generalized weakness, shortness of breath. Interval History: Patient is more awake and alert today, she is arguing about going home today. Shestates she is uncomfortable here and she will be okay at home. is sitting right next to herand tells me that he will not be able to take care of her at home. The patient heard what the is saying. Patient is also arguing about her fluid restriction, she wants to drink soda. OBJECTIVE Vitals: 24hr Min/Max: Temp Min: 36.1 ??C (96.9 ??F) Max: 36.6 ??C (97.9 ??F) Pulse Min: 68 Max: 71 BP Min: 102/54 Max: 134/61 Resp Min: 20 Max: 22 SpO2 Min: 96 % Max: 98 % Most Recent : Vitals: 07/25/23 1045 BP: 102/54 Pulse: 68 Resp: 20 Temp: 36.4 ??C (97.6 ??F) SpO2: 96% I/O last 2 completed shifts: In: 480 [P.O.:480] Out: 860 [Urine:860] I/O this shift: In: 250 [P.O.:250] Out: - Physical Exam: Eyes: EOMI, LINDA, sclare non icteric Neck: supple, no nuchal ridigity, no gross carotid bruits appreciated Pharynx: No gross oral lesion, tongue midline, mucosa moist Lungs crackles bilateral bases Heart: Irregular, S1S2, no significant murmur or gallop Abd: +BS, Non Tender, Non distended, No gross hepatomegaly Lower Ext: 1+ pitting edema, pedal artery pulses are palpable bilaterally Neuro: No new deficits appreciated Musculoskeletal: no gross joint erythema, edema, tenderness Skin: No new change Lab/Current Medication Review: Recent Results (from the past 24 hour(s)) CBC with auto differential Collection Time: 07/25/23 8:53 AM Result Value Ref Range WBC 12.4 (H) 3.8 - 9.9 K/cumm Hgb 12.8 11.9 - 15.5 g/dL Hct 39.2 35.6 - 45.5 % Plt 288 150 - 400 K/cumm MPV 8.6 (L) 9.1 - 12.3 fL RBC 4.06 3.90 - 5.20 M/cumm MCV 96.6 (H) 81.3 - 96.4 fL MCH 31.5 27.1 - 33.3 pg MCHC 32.7 32.3 - 35.7 g/dL RDW CV 14.5 11.1 - 14.9 % RDW SD 49.4 (H) 35.7 - 48.1 fL NRBC abs 0.13 (H) 0.00 - 0.01 K/cumm Basic metabolic panel Collection Time: 07/25/23 8:53 AM Result Value Ref Range Sodium 137 135 - 145 mmol/L Potassium, pl 4.0 3.3 - 4.9 mmol/L Chloride 96 (L) 97 - 110 mmol/L CO2 35 (H) 22 - 32 mmol/L Anion gap 6 2 - 15 mmol/L BUN 21 6 - 25 mg/dL Creatinine 0.76 0.60 - 1.10 mg/dL Glucose 101 70 - 199 mg/dL Calcium 9.1 8.5 - 10.3 mg/dL Phosphorus Collection Time: 07/25/23 8:53 AM Result Value Ref Range Phosphorus, pl 2.5 2.3 - 4.5 mg/dL Differential, auto Collection Time: 07/25/23 8:53 AM Result Value Ref Range Neutrophil abs 8.5 (H) 1.5 - 6.5 K/cumm Imm gran abs 0.4 (H) 0.0 - 0.1 K/cumm Lymphocyte abs 2.0 0.8 - 3.3 K/cumm Monocyte abs 1.3 (H) 0.2 - 0.8 K/cumm Eosinophil abs 0.0 0.0 - 0.5 K/cumm Basophil abs 0.1 0.0 - 0.1 K/cumm Neutrophil pct 69.0 % Imm gran pct 3.2 % Lymphocyte pct 16.0 % Monocyte pct 10.8 % Eosinophil pct 0.2 % Basophil pct 0.8 % eGFR Collection Time: 07/25/23 8:53 AM Result Value Ref Range eGFR 81 mL/min/1.73 m2 Transesophageal Echocardiogram (SOPHIE) W Possible Cardioversion Result Date: 07/20/2023 Narrative: Daniela Job ID: [id number] [facility] Document ID: [id number] Dictated date/time: [id number] NAME OF PROCEDURE 1. Transesophageal echocardiogram. 2. Cardioversion of atrial fibrillation. PROCEDURE The patient was kept in ICU bed 7. Consent form was signed. She was not allergic to any medication we are going to be giving her. Sedation time was about 25 minutes. Patient received in small increments 1 mg IV Versed and 50 mcg IV fentanyl. Topical anesthetics were given to the retropharynx twice. When well sedated, the probe went down to the distal esophagus very easily. FINDINGS The LV function was quite diminished with apical akinesis. Ejection fraction estimated at 25% to 30% at best. No thrombus in the left ventricle. Mitral valve leaflets opening and closing well with evidence of moderate to severe mitral regurgitation. Left atrium is definitely moderately dilated. Left atrial appendage is well seen and has no thrombus. Left atrial appendage velocity was diminished at 0.4 m/sec as expected from atrial fibrillation. Tricuspid valve leaflets opening and closing well with evidence of mild to moderate tricuspid regurgitation. The pulmonic valve is opening and closing well with pulmonic insufficiency. Aortic valve is tricuspid in nature and without any regurgitation orvegetation. On the way out, no hypermobile elements noted in the aortic arch. CONCLUSION 1. No hypermobile elements in aortic arch. 2. No thrombus left ventricular apex or left atrial appendage. 3. Moderately dilated left atrium. 4. Severely diminished global LV function with apical akinesis. LVEF of 25% to 30%. 5. Pulmonic insufficiency. 6. Tricuspid regurgitation, mild to moderate. 7. Mitral regurgitation, moderate to severe. 8. No clot in left atrial appendage with a low left atrial appendage velocity of 0.4 m/sec. After making sure patient continues to be well sedated, a 360 joule synchronized biphasic shock converted her from an irregular atrial fibrillation rhythm to regular rhythm that looks to be now atrial flutter. The patient will be continued on p.o. amiodarone after discontinuation of IV amiodarone. We may try to cardiovert her out of atrial flutter in a few weeks. Job ID/Internal Job ID: [id number] ECG 12 lead Result Date: 07/20/2023 Narrative: Vent Rate: 70 bpm RR Interval: 846 msec WV Interval: 0 msec QRS Duration: 154 msec QT Interval: 465 msec QTC Interval: 487 msec P-R-T [place]: [id number] - 69 - 195 degrees IMPRESSION: ATRIAL FLUTTER LEFT BUNDLE BRANCH BLOCK [120+ ms QRS DURATION, 80+ ms Q/S IN V1/V2, 85+ ms R IN I/aVL/V5/V6] ABNORMAL ECG Electronically Signed By: John Dominguez MD XR Chest 1 View Result Date: 07/19/2023 Narrative: EXAM DESCRIPTION: XR CHEST 1 VIEW REASON FOR STUDY: PICC placement. TECHNIQUE: Frontal radiographic view(s) of the chest. COMPARISON: Chest radiograph 07/16/2023 and 04/14/2019. FINDINGS: LUNGS: No focal consolidation, noting redemonstration of diffuse coarsened pulmonary markings. No large pleural effusion. No pneumothorax. HEART/MEDIASTINUM: Stable cardiomediastinal silhouette, noting mild cardiomegaly. LINES/TUBES: Interval placement of right upper extremity PICC with tip termination projecting over the superior vena cava. BONES: No acute osseous abnormality. IMPRESSION: Interval placement of right upper extremity PICC with tip termination projecting over the superior vena cava. No radiographic evidence of acute cardiopulmonary process. THIS IS AN ELECTRONICALLY VERIFIED FINAL REPORT 07/19/2023 2:14 PM - Electronically signed by Blaze Schwartz M.D. DYANA: DYANA Report ID: [id number] Reading Location: [id number] Cardiac Catheterization Result Date: 07/19/2023 Narrative: [employer] Job ID: [id number] [employer] Document ID: [id number] Dictated date/time: [id number] CARDIAC CATHETERIZATION A 78-year-old with obesity and shortness of breath. Echocardiogram showed severe segmental LV dysfunction. She is now having chest pain. She was referred for catheterization. INDICATION FOR PROCEDURE Takotsubo cardiomyopathy. PROCEDURE PERFORMED Left heart catheterization, selective coronary angiography, left ventriculography. After obtaining informed consent, patient was brought to the cardiac computer lab para professional. She was prepped and draped in the usual sterile fashion. Conscious sedation was administered by the computer lab para professional staff under my supervision. A total of 0.5 mg Verse d and 25 mcg of fentanyl were given. See procedure log for further details. Total sedation time was16 minutes. A 6-[place] sheath was inserted in the right radial artery. Combination of Angiomax, lidocaine, and nitroglycerin was administered intra-arterially. The selective coronary cannulation was performed using standard Eddy catheters. Left ventriculography was performed in the MATA projection using pigtail followed by left heart pullback. At the end of procedure, the arterial sheath was removed and hemostasis achieved by applying TR band to the right wrist. FINDINGS: HEMODYNAMICS: LV pressure was 120/25, ascending aortic pressure 120/80. There was significant respiratory variations of her pressures. LEFT VENTRICULOGRAPHY: This showed akinesis of the anterolateral apical and diaphragmatic segment. The basal segments were reasonably well. Overall ejection fraction 20% to 25%. There was moderate +2 mitral regurgitation. RIGHT CORONARY ARTERY: The right coronary artery was a large dominant vessel and gives distally medium-sized posterior descending and several posterolateral branches. The right coronary system was angiographically normal. LEFT CORONARY ARTERY: The left main coronary artery, the circumflex, the obtuse marginal branches were angiographically normal. The left anterior descending was also patent. There was possible muscle bridge in the mid segment. IMPRESSION 1. Angiographically no significant obstructive coronary artery disease. 2. Segmental left ventricular systolic dysfunction consistent with Takotsubo cardiomyopathy. 3. Moderate mitral regurgitation. 4. Elevated left ventricular diastolic pressure. CARE PLAN Medical therapy per primary team. John Dominguez MD Job ID/Internal Job ID: [id number] ECG 12 lead Result Date: 07/19/2023 Narrative: Vent Rate: 91 bpm RR Interval: 655 msec WV Interval: 0 msec QRS Duration: 123 msec QT Interval: 420 msec QTC Interval: 469 msec P-R-T [place]ett: [id number] - 65 - 208 degrees IMPRESSION: ATRIAL FIBRILLATION MODERATE INTRAVENTRICULAR CONDUCTION DELAY [110+ ms QRS DURATION] ST DEVIATION AND MODERATET-WAVE ABNORMALITY, CONSIDER ANTEROLATERAL ISCHEMIA [-0.1+ mV T-WAVE IN V3-V6] ST DEVIATION AND MODERATE T-WAVE ABNORMALITY, CONSIDER INFERIOR ISCHEMIA [-0.1+ mV T-WAVE IN II/aVF] ABNORMAL ECG Compared to prior EKG, anterolateral T- wave inversions are new QT interval has increased Electronically Signed By: John Dominguez MD ECG 12 lead Result Date: 07/18/2023 Narrative: Vent Rate: 100 bpm RR Interval: 597 msec WV Interval: 0 msec QRS Duration: 128 msec QT Interval: 355 msec QTC Interval: 412 msec P-R-T [place]: [id number] - 33 - 56 degrees IMPRESSION: UNCERTAIN REGULAR RHYTHM, probably junctional POSSIBLE LATERAL MYOCARDIAL INFARCTION , OF INDETERMINATE AGE [30ms Q WAVE IN I/aVL/V5/V6] CRITICAL TEST RESULT Compared to prior EKG, P-waves are not present Electronically Signed By: John Dominguez MD ECG 12 lead Result Date: 07/18/2023 Narrative: Vent Rate: 85 bpm RR Interval: 700 msec WV Interval: 0 msec QRS Duration: 123 msec QT Interval: 403 msec QTC Interval: 445 msec P-R-T [place]: [id number] - 33 - 52 degrees IMPRESSION: UNCERTAIN REGULAR RHYTHM, probably junctional POSSIBLE LATERAL MYOCARDIAL INFARCTION , OF INDETERMINATE AGE [30 ms Q WAVE IN I/aVL/V5/V6] ABNORMAL ECG NO CHANGE FROM PREVIOUS TRACING NOTED Electronically Signed By: John Dominguze MD Transthoracic Echo (TTE) Complete W Doppler/CF Result Date: 07/18/2023 Narrative: [address] [address] Echocardiogram Report Patient Name: PEBBLES LAL L : 1945 Study Date: 07/18/2023 8:50:58 AM Gender: F Tech: Location: [place] [address] Ref Provider: GIANLUCA SORIANO Height(Cm): 152 BSA: 2.39 Weight(Kg): 135.2 Quality: Adequate Order Provider: GRACIELA SORIANOOPROCEDURES: Echocardiographic Report: Transthoracic echocardiogram with complete 2D, M-Mode, and color Doppler examination. INDICATIONS: Congestive Heart Failure. Measurements: 2D/M Mode Doppler Measu rement Value Normal Range Measurement Value Normal Range EF Teich MM 47.3 [ 55.0 - 70.0 ] percent DANIELLE Vmax 2.33 [ 2.00 - 4.00 ] cm2 LVIDd MM 6.07 [ 3.90 - 5.30 ] cm AV Mean PG 11 [ 2 - 4 ] mmHg LVIDs MM 4.60 [ 2.30 - 3.90 ] cm AV Peak Morales 1.48 [ <= 0.02 ] m/s LVPWd MM 0.87 [ 0.60 - 1.00 ] cm AVVTI 25.96 cm IVSd MM 0.99 [ 0.60 - 0.90 ] cm LVOT Diam 2.18 [ 1.70 - 2.10 ] cm LA Dimension MM 5.15 [ 2.70 - 3.80 ] cm LVOT Peak Morales 0.92 [ <= 0.01 ] m/s AoR Diam 2D 2.83 [ 2.60 - 3.70 ] cm LVOT VTI 16.52 [ 20.00 - 30.00 ] cm AoR Diam MM 3.29 [ 2.60 - 3.70 ] cm MV Mean PG 2 [ <= 5 ] mmHg PV Peak Morales 0.77 m/s TR Peak Morales 3.43 [ <= 0.03 ] m/s TR Peak PG 47 mmHg RVSP 57.00 [ 10.00 - 36.00 ] mmHg PA Pressure 10.00 [ 10.00 - 36.00 ] mmHg Measurement Value Normal Range Measurement Value Normal Range 2D/M Mode Doppler - FINDINGS: Atrial Septum: Normal atrial septum. Left Ventricle: Irregular rhythm. Mild concentric left ventricular hypertrophy. Moderate global left ventricular systolic dysfunction. Ejection fraction is visually estimated at 35 to 40 %. 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 Left Atrium: There is mild enlargement of left atrium. Right Ventricle: Normal right ventricular size. Right Atrium: The right atrium is normal in size. Aortic Valve: Normal structure of the aortic valve. Mitral Valve: Mild mitral annular calcification. Mild to moderate mitral valve regurgitation. Pulmonic Valve: Normal structure of the pulmonic valve. Tricuspid Valve: Normal structure of the tricuspid valve. Moderate pulmonary hypertensionbased on right ventricular systolic pressure. Estimated peak RVSP is 57 to 61 mmHg. Trivial regurgitation in the tricuspid valve. Pericardium: Normal pericardium with no significant pericardial effusion. Aorta: Normal aortic root. IVC: Normal size and normal respiratory collapse consistent with normal right atrial pressure (<5 mmHg). CONCLUSIONS: Irregular rhythm. Mild concentric left ventricular hypertrophy. Moderate global left ventricular systolic dysfunction. Ejection fraction is visually estimated at 35 to 40 %. 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 There is mild enlargement of left atrium. Mild mitral annular calcification. Mild to moderate mitral valve regurgitation. Normal structure of the aortic valve. Normal structure of the tricuspid valve. Moderate pulmonary hypertension based on right ventricular systolic pressure. Estimated peak RVSP is 57 to 61 mmHg. Trivial regurgitation in the tricuspid valve. Electronically Signed By: Dr Roly Husain 2023-07-18 10:07:11 CONCRETE TESTER XR CHEST 1 VIEW PORTABLE Result Date: 07/16/2023 Narrative: EXAM DESCRIPTION: XR CHEST 1 VIEW REASON FOR STUDY: cough Pt presents [place] [facility] with nausea vomiting diarrhea spo2 89% RA TECHNIQUE: 1 radiographic view(s) of the chest. COMPARISON: 04/14/2019 FINDINGS: Stable cardiomegaly. Poor inspiratory result with bibasilar discoid atelectasis. Mild pulmonary vascular congestion. No airspace consolidation. No pneumothorax. IMPRESSION: Cardiomegaly and mild pulmonary vascular congestion. THIS IS AN ELECTRONICALLY VERIFIED FINAL REPORT 0:43 PM - Electronically signed by Pawan Mata M.D. KT: CAMILO Report ID: [id number] Reading Location: [id number] Current Facility-Administered Medications Medication Dose Route Frequency Provider Last Rate Last Admin acetaminophen (TYLENOL) tablet 650 mg 650 mg oral Q4H PRN Maciel Jean MD 650 mg at 07/22/23 0758 albuterol 2.5 mg /3 mL (0.083 %) nebulizer solution 2.5 mg 2.5 mg nebulization Q4H PRN (RT) Joycelyn Moseley MD 2.5 mg at 07/20/23 193 amiodarone (PACERONE) tablet 200 mg 200 mg oral BID Roly Husain MD 200 mg at 07/25/23 0906 [START ON 08/02/2023] amiodarone (PACERONE) tablet 200 mg 200 mg oral Daily Roly Husain MD apixaban (ELIQUIS) tablet 2.5 mg 2.5 mg oral Q12H [facility] Karen Zambrano MD 2.5 mg at 07/25/23 0906 bisacodyl EC (DULCOLAX EC) tablet 10 mg 10 mg oral Daily PRN Karen Zambrano MD buPROPion SR (WELLBUTRIN SR) 12 hour tablet 150 mg 150 mg oral BID Maciel Jean MD 150 mg at 07/25/23 0906 carvediloL (COREG) tablet 3.125 mg 3.125 mg oral BID with meals (bkfst, dinner) Roly Husain MD 3.125 mg at 07/25/23 0906 famotidine (PEPCID) tablet 20 mg 20 mg oral Daily Maciel Jean MD 20 mg at 07/25/23 0906 FLUoxetine (PROzac) capsule 40 mg 40 mg oral Daily Maciel Jean MD 40 mg at 07/25/23 0906 furosemide (LASIX) 10 mg/mL injection 60 mg 60 mg intravenous Daily Karen Zambrano MD 60 mg at 07/25/23 0905 HYDROcodone-acetaminophen (NORCO) 5-325 mg per tablet 1 tablet 1 tablet oral Q4H PRN Maciel Jean MD 1 tablet at 07/20/23 0212 influenza quadrivalent [id number] (FLUZONE HIGH DOSE) 240 mcg/0.7 mL vaccine (HIGH DOSE age 65 yearsand up) 0.7 mL 0.7 mL intramuscular During hospitalization Maciel Jean MD magnesium hydroxide (MILK OF MAGNESIA) 80 mg/mL (33.3 mg/mL as elemental magnesium) oral [id number] mL 30 mL oral Daily PRN Karen Zambrano MD 30 mL at 07/25/23 0249 miconazole 2 % powder topical BID Maciel Jean MD Given at 07/25/23 0911 mineral oil (FLEET MINERAL OIL) enema 133 mL 1 enema rectal Daily PRN Karen Zambrano MD ondansetron (ZOFRAN) injection 4 mg 4 mg intravenous Q4H PRN Maciel Jean MD 4 mg at 07/24/23 1003 psyllium (aspartame) SF (METAMUCIL SF) 3.4 gram packet 1 packet 1 packet oral Nightly Maciel Jean MD 1 packet at 07/23/23 203 sacubitriL-valsartan (ENTRESTO) 24-26 mg tablet 1 tablet 1 tablet oral BID Roly Husain MD 1 tablet at 07/25/23 0907 sodium chloride 0.9% flush 5-10 mL 5-10 mL intra-catheter Q12H SAL Maciel Jean MD 10 mL at 07/25/23 0911 sodium chloride 0.9% flush 5-20 mL 5-20 mL intra-catheter PRN Maciel Jean MD sodium phosphate - potassium phosphate (K-PHOS NEUTRAL) tablet 250 mg 250 mg oral Q4H Karen Zambrano MD 250 mg at 07/25/23 1134 spironolactone (ALDACTONE) tablet 25 mg 25 mg oral Daily Roly Husain MD 25 mg at 07/25/23 0906 A/P: 07/23/23 1. Takotsubo cardiomyopathy, continue Coreg, Entresto, spironolactone, diuresis. Patient continues to be severely weak, unable to independently sit up or ambulate. She sleeps all day long. Will give 1 more dose of Lasix 60 mg. Per I&O pressure diuresed-1000 cc yesterday. Discussed the management with Dr. Husain today 2. Hyponatremia is corrected. Most likely positive affect of diuresis. Sodium was 131 now it is 135. 3. New onset atrial fibrillation, heart rate is being controlled with loading dose of amiodarone, continue apixaban, Coreg. 4. Hematuria, patient does have indwelling Stafford catheter placement this admission. Most likely associated with anticoagulation and probably some trauma. Monitoring H&H. So far hemoglobin is 13.1. Will see if the Stafford catheter starts draining clear urine by tomorrow and then will make a decision about anticoagulation. 07/24/23 Continues to be short of breath, and no significant change since yesterday. The nocturnal oxygen study was insignificant but patient does have baseline mild hypercapnia and hypoxemia, most likely hasobstructive sleep apnea. Will ask respiratory therapy to start BiPAP and see how she will tolerate.She sleeps all day long. Starting Lasix 60 mg IV today and every day. Patient was getting the same amount of Lasix for the last 3 days, monitor creatinine and electrolytes daily. Creatinine is remaining within normal limits Hematuria, the hemoglobin did not drop, monitoring daily. Most likely some sort of trauma when theyplaced a Stafford catheter in. Patient is on anticoagulation with Eliquis which was on hold but we need to restarted. Tele monitor still shows she has in a flutter. Continuing amiodarone loading dose per Cardiology recommendation. 07/25/23 1. Currently no acute kidney injury. Monitoring creatinine electrolytes due to diuresis 2. Acute respiratory failure with hypoxia and hypercapnia, unable to clarify or rule out if this was present on admission. Recommending BiPAP. Most likely the patient has undiagnosed and untreated sleep apnea. 3. Takotsubo cardiomyopathy and moderate to severe MR, new onset atrial fibrillation, cardioverted on July 20 2 atrial flutter, continue low-dose Eliquis. Patient has a Stafford catheter which showsbloody tinged urine, monitoring hemoglobin is not dropping . Continue Coreg Entresto, spironolactone, giving so trying Lasix every day and it looks like the patient has started to respond. Will continue fluid resuscitation 1500 mL per 24 hours. Cardiology team is following. Patient will have wearable defibrillator on discharge. These fluid and electrolyte abnormalities are being treated, evaluated or monitored: No fluid or electrolyte disorders Advance Care Planning Advance Care Planning Conversation Pertinent diagnoses: Cardiomyopathy, respiratory failure The patient and/or family consented to a voluntary Advance Care Planning conversation. Individuals present for the conversation: patient Summary of the conversation: Hospice because she wanted to go home and does not want to stay in thehospital despite the fact that she has not able to move around or change her position in the bed. She stated she wants to go home and sleep she is very uncomfortable in the hospital. I offered her hospice care and she responded ' hell no Outcome of the conversation and documents completed (select all that apply): Remaining no CPR I spent 6 minutes providing separately identifiable ACP services with the patient and/or surrogate decision maker in a voluntary, in-person conversation discussing the patient's wishes and goals as detailed in the above note. Karen Zambrano MD MDM moderate Principal Problem: Vomiting and diarrhea Active Problems: Class 3 severe obesity due to excess calories with serious comorbidity and body mass index (BMI) of50.0 to 59.9 in adult (HCC) Acquired hypothyroidism NSTEMI (non-ST elevated myocardial infarction) (CMS/HCC) ([facility]) Takotsubo cardiomyopathy Mitral regurgitation New onset atrial fibrillation (CMS/HCC) ([facility]) Resolved Problems: No resolved hospital problems. Voice recognition software [employer] Direct was used dictate and transcribe this document. Photogrammetric Surveyor variances may occur. Despite proofreading, typographical errors may occur. Karen Zambrano MD 07/25/2023 11:59 AM RETE TESTER * Wan Nava, [facility] - 07/25/2023 9:29 AM CST Pharmacy Consult -Electrolyte Replacement Protocol (in patients not receiving parenteral nutrition) Pharmacist managed electrolyte replacement protocol has been ordered by Dr. Soriano. Exclusion criteria to the pharmacist managed electrolyte protocol (If any present, then please contact the provider to notify them of the applicable exclusion criteria) No Monitoring Guidelines: Electrolyte levels will be ordered by providers as needed. Pertinent Lab Results: Lab Results Component Value Date SODIUM 137 07/25/2023 POTASSIUM 4.0 07/25/2023 MAGNESIUM 2.0 07/24/2023 PHOS 2.5 07/25/2023 CALCIUM 9.1 07/25/2023 ALBUMIN 2.9 (L) 07/21/2023 Corrected Calcium =10.0 mg/dl Estimated Creatinine Clearance: 43 mL/min (by C-G 65 yr and older- minimum SCr 0.8 based on SCr of 0.76 mg/dL). Lab Results Component Value Date CREATININE 0.76 07/25/2023 CREATININE 0.77 07/24/2023 CREATININE 0.70 07/23/2023 IV or PO repletion will be ordered by the pharmacist when levels fall below the desired range basedon the diet ordered. The following electrolyte replacement orders were placed: K-Phos Neutral 250 mg orally tid X 3 doses today per electrolyte replacement protocol for Phosphorous =2.5 on 07/25/23 Table 1. Serum Potassium (mmol/L) Creatinine Clearance (mL/min) Potassium Replacement 3.3 to 3.5 CrCl > 30 Potassium chloride 20 mEq IV, PO, or per tube for 1 dose CrCl < 30 No replacement 3.0 to 3.2 CrCl > 30 Potassium chloride 40 mEq IV, PO, or per tube for 1 dose CrCl < 30 Potassium chloride 20 mEq IV, PO, or per tube for 1 dose 2.6 to 2.9 CrCl > 30 Potassium chloride 60 mEq IV, PO, or per tube for 1 dose CrCl < 30 Potassium chloride 40 mEq IV, PO, or per tube for 1 dose < 2.6 CrCl > 30 Potassium chloride 60 mEq IV for 1 dose, Repeat level 2 hours after infusion complete, and contact provider CrCl < 30 Potassium chloride 40 mEq IV for 1 dose, Repeat level 2 hours after infusion complete, and contact provider *Normal S. Potassium range 3.3 - 5.1 mmol/L a. Limit potassium chloride to 40 mEq in a single IVPB. Table 2. Ionized calcium (mg/dL) Corrected Serum Calcium (mg/dL) Calcium Replacement 3.01 to 4.49 7.6 to 8.4 Calcium carbonate 500 mg (elemental calcium) PO or per tube TID for 3 doses Or Calcium gluconate 1 g IV for 1 dose < 3 < 7.5 Calcium gluconate 2 g IV for 1 dose Repeat level 4 hours after infusion complete and contact provider *Normal S. Calcium range 8.6 - 10.3 mg/dL a. Serum calcium must be corrected for hypoalbuminemia based on the following equation: Corrected serum calcium = 0.8(4 - Albumin) + Calcium b. Ionized calcium is preferred over serum calcium if both are available c. Calcium carbonate may be administered as a tablet or as the suspension Table 3. Serum Magnesium (mg/dL) Creatinine Clearance (mL/min) Magnesium Replacement 1.0 to 1.5 CrCl > 30 Magnesium oxide 400 mg PO TID x 3 doses Or Magnesium sulfate 2g IV for 1 dose CrCl < 30 Magnesium oxide 400 mg PO TID x 3 doses Or Magnesium sulfate 1g IV for 1 dose <1.0 CrCl > 30 Magnesium sulfate 4g IV for 1 dose Repeat level 2 hours after infusion complete and contact provider CrCl < 30 Magnesium sulfate 2g IV for 1 dose Repeat level 2 hours after infusion complete and contact provider *Normal S. Magnesium range 1.6-2.6 mg/dL Table 4. Serum Phosphorus (mg/dL) Serum Potassium (mmol/L) Oral or per tube Phosphate Replacement 2 to 2.5 > 3.5 K-Phos Neutral 1 tablet (8 mmol) PO or per tube TID x 3 doses < 3.5 Phos NaK 1 packet (8 mmol) PO or per tube TID x 3 doses 1.6 to 1.9 > 3.5 K-Phos Neutral 2 tablets (16 mmol) PO or per tube TID x 3 doses < 3.5 Phos NaK 2 packets (16 mmol) PO or per tube TID x 3 doses < 1.6 Go to the intravenous phosphate replacement table (Table 5) *Normal S. Phosphorus range 2.5 - 4.5 mg/dL a. If potassium is provided as part of the above phosphorus replacement, then count this as part ofthe potassium replacement in Table 1. b. Each K-Phos Neutral tablet contains elemental phosphorus 250 mg (8 mmol), potassium 45 mg (1.1 mEq), and sodium 298 mg (13 mEq). c. Each Phos-NaK packet contains elemental phosphorus 250 mg (8 mmol), potassium 280 mg (7.1 mEq), and sodium 160 mg (6.9 mEq). Table 5. Serum Phosphorus (mg/dL) Intravenous Phosphate Replacement 2 to 2.5 Phosphate 0.16 mmol/kgb IV for 1 dose 1.6 to 1.9 Phosphate 0.32 mmol/kgb IV for 1 dose < 1.6 Phosphate 0.64 mmol/kgb IV for 1 dose Repeat level 4 hours after infusion complete and contact provider *Normal S. Phosphorus range 2.5 - 4.5 mg/dL a. Formulation (sodium or potassium salt) will be determined by potassium requirements as determined in Table 1. b. If potassium is provided as part of the above phosphorus replacement, then count this as part ofthe potassium replacement in Table 1. Each mmol of IV potassium phosphate contains 1.5 mEq of potassium. b. Round to the nearest 5 mmol phosphate. Limit phosphate repletion to 30 mmoles in a single IVPB. c. Use adjusted body weight for patients with a BMI > 30 Thank you, Wan Nava [facility] Pharmacy department RETE TESTER * Roly Husain MD - 07/25/2023 7:39 AM CST Cardiology Progress Note 07/25/23 Patient tells me that she was in the chair for 1.5 hours yesterday. However, professor of nursing indicated to me that she was never out of bed yesterday. Vital Signs: Vitals: 07/25/23 0316 07/25/23 0400 07/25/23 0600 07/25/23 0635 BP: 112/54 BP Location: Left arm Patient Position: Lying Pulse: 70 69 70 Resp: 20 Temp: 36.3 ??C (97.4 ??F) TempSrc: Temporal SpO2: 96% Weight: 135 kg (297 lb 9.9 oz) Height: Intake/Output Summary (Last 24 hours) at 07/25/2023 0739 Last data filed at 07/25/2023 0700 Gross per 24 hour Intake 630 ml Output 860 ml Net -230 ml Wt Readings from Last 3 Encounters: 07/25/23 135 kg (297 lb 9.9 oz) 03/28/23 131.1 kg (289 lb) 09/20/22 131.1 kg (289 lb) Temp Min: 36.1 ??C (96.9 ??F) Max: 36.3 ??C (97.4 ??F) Pulse Min: 68 Max: 72 BP Min: 108/48 Max: 134/61 Resp Min: 20 Max: 24 SpO2 Min: 96 % Max: 99 % Stafford is draining some dark urine. Current Medications: Current Facility-Administered Medications Medication Dose Route Frequency Provider Last Rate Last Admin acetaminophen (TYLENOL) tablet 650 mg 650 mg oral Q4H PRN Maciel Jean MD buPROPion SR (WELLBUTRIN SR) 12 hour tablet 150 mg 150 mg oral BID Maciel Jean MD 150 mg at 07/18/23 0840 cefTRIAXone (ROCEPHIN) 1,000 mg/10 mL in sterile water (premix) 1,000 mg 1,000 mg intravenous DailySilvia Villafana MD 1,000 mg at 07/18/23 0841 dextrose 5% and sodium chloride 0.45% infusion (premix) 100 mL/hr intravenous Continuous Maciel Jean MD 100 mL/hr at 07/18/23 0841 100 mL/hr at 07/18/23 0841 enoxaparin (LOVENOX) syringe 40 mg 40 mg subcutaneous Daily-2100 Maciel Jean MD 40 mg at 07/17/23 2207 famotidine (PEPCID) injection 20 mg 20 mg intravenous Q24H SAL Maciel Jean MD 20 mg at 840 FLUoxetine (PROzac) capsule 40 mg 40 mg oral Daily Maciel Jean MD 40 mg at 07/18/23 0840 HYDROcodone-acetaminophen (NORCO) 5-325 mg per tablet 1 tablet 1 tablet oral Q4H PRN Maciel Jean MD 1 tablet at 07/18/23 0520 influenza quadrivalent [id number] (FLUZONE HIGH DOSE) 240 mcg/0.7 mL vaccine (HIGH DOSE age 65 yearsand up) 0.7 mL 0.7 mL intramuscular During hospitalization Maciel Jean MD miconazole 2 % powder topical BID Maciel Jean MD Given at 07/18/23 0852 ondansetron (ZOFRAN) injection 4 mg 4 mg intravenous Q4H PRN Maciel Jean MD 4 mg at 07/18/23 0926 psyllium (aspartame) SF (METAMUCIL SF) 3.4 gram packet 1 packet 1 packet oral Nightly Maciel Jean MD Labs: Recent Labs Lab Units 07/24/23 0432 07/23/23 0634 07/23/23 0238 07/22/23 0514 07/21/23 0630 07/20/23 0405 07/19/23 0417 SODIUM mmol/L 136 135 -- 134* 131* 134* 133* POTASSIUM PLASMA mmol/L 3.8 4.2 -- 3.7 3.9 3.6 3.6 CHLORIDE mmol/L 96* 96* -- 95* 94* 96* 95* CO2 mmol/L 31 31 -- 28 27 29 24 BUN SERUM mg/dL 22 24 -- 25 25 22 20 CREATININE mg/dL 0.77 0.70 -- 0.75 0.75 0.72 0.77 [id number] mL/min/1.73 m2 80 90 -- 82 82 87 80 GLUCOSE mg/dL 98 98 -- 100 105 106 101 POC GLUCOSE MONITOR -- -- < > -- -- -- -- CALCIUM mg/dL 9.1 8.7 -- 8.8 9.4 9.2 9.0 ALBUMIN g/dL -- -- -- -- 2.9* 3.1* 3.0* PHOSPHORUS PLASMA mg/dL 2.3 2.6 -- 2.6 2.3 2.7 2.4 < > = values in this interval not displayed. Recent Labs Lab Units 07/21/23 0630 07/20/23 0405 07/19/23 0417 ALK PHOS Units/L 113 122 117 BILIRUBIN TOTAL mg/dL 0.5 0.4 0.3 TOTAL PROTEIN g/dL 6.8 7.1 7.1 ALT Units/L 16 18 15 AST Units/L 16 19 23 Recent Labs Lab Units 07/24/23 0432 07/23/23 0634 07/22/23 0514 WBC K/cumm 13.0* 13.0* 13.0* HEMOGLOBIN g/dL 12.9 13.1 13.1 HEMATOCRIT % 38.8 39.7 38.3 PLATELETS K/cumm 338 378 379 Lab Results Component Value Date TSH 1.45 07/17/2023 Lab Results Component Value Date CHOL 150 03/21/2023 TRIG 61 03/21/2023 HDL 76 03/21/2023 LDLCALC 62 03/21/2023 No results found for: TROPONINT Telemetry: Cardiac Rhythm: Atrial flutter (07/25/23 0600) Cardiology Testing: ProBNP: EKG: Echocardiogram: Stress Test: Cardiac Cath: Impression: Elevated cardiac troponins likely due to multiple etiologies: underlying UTI/sepsis and also acute kidney injury. Now also has takotsubo cardiomyopathy with normal coronaries on recent cardiac catheterization. Moderate to severe LV systolic dysfunction noted. So far -2,817 mL. On 1 L saturating 92%. 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 by SOPHIE 20 July 2023. Atrial fibrillation, cardioverted on 20 July 2023 to atrial flutter. Low- dose Eliquis has been restarted as hematuria likely due to insertion trauma. Chronic pain syndrome. Hypertension Plan: Continue with front loading a p.o. amiodarone. Wearable defibrillator on discharge. Continue to try to increase activities with physical therapy. Follow-up with me 17 August 2023. CC: Watson, MD Juan Manuel Moser Narine, MD RETE TESTER * Karen Zambrano MD - 07/24/2023 12:56 PM CST General Medicine Daily Progress SUBJECTIVE Chief complaint of generalized weakness, short of breath, takotsubo cardiomyopathy. Interval History: The patient is not showing much improvement since admission despite the diuresis and cardiac medications. Will continue OBJECTIVE Vitals: 24hr Min/Max: Temp Min: 35.9 ??C (96.7 ??F) Max: 36.3 ??C (97.4 ??F) Pulse Min: 70 Max: 72 BP Min: 113/56 Max: 122/59 Resp Min: 17 Max: 24 SpO2 Min: 88 % Max: 99 % Most Recent : Vitals: 07/24/23 1109 BP: 122/59 Pulse: 71 Resp: 24 Temp: 36.2 ??C (97.2 ??F) SpO2: 99% I/O last 2 completed shifts: In: 0 Out: 1500 [Urine:1500] I/O this shift: In: 240 [P.O.:240] Out: 110 [Urine:110] Physical Exam: Eyes: EOMI, LINDA, sclare non icteric Neck: supple, no nuchal ridigity, no gross carotid bruits appreciated Pharynx: No gross oral lesion, tongue midline, mucosa moist Lungs crackles bilateral bases Heart: Irregularly irregular S1S2, no significant murmur or gallop Abd: +BS, Non Tender, Non distended, No gross hepatomegaly Lower Ext: 1+ edema, pedal artery pulses are palpable bilaterally Neuro: No new deficits appreciated Musculoskeletal: no gross joint erythema, edema, tenderness Skin: No new change Lab/Current Medication Review: Recent Results (from the past 24 hour(s)) Phosphorus Collection Time: 07/24/23 4:32 AM Result Value Ref Range Phosphorus, pl 2.3 2.3 - 4.5 mg/dL CBC without differential Collection Time: 07/24/23 4:32 AM Result Value Ref Range WBC 13.0 (H) 3.8 - 9.9 K/cumm Hgb 12.9 11.9 - 15.5 g/dL Hct 38.8 35.6 - 45.5 % Plt 338 150 - 400 K/cumm MPV 8.7 (L) 9.1 - 12.3 fL RBC 4.07 3.90 - 5.20 M/cumm MCV 95.3 81.3 - 96.4 fL MCH 31.7 27.1 - 33.3 pg MCHC 33.2 32.3 - 35.7 g/dL RDW CV 14.2 11.1 - 14.9 % RDW SD 48.6 (H) 35.7 - 48.1 fL NRBC abs 0.26 (H) 0.00 - 0.01 K/cumm Basic metabolic panel Collection Time: 07/24/23 4:32 AM Result Value Ref Range Sodium 136 135 - 145 mmol/L Potassium, pl 3.8 3.3 - 4.9 mmol/L Chloride 96 (L) 97 - 110 mmol/L CO2 31 22 - 32 mmol/L Anion gap 9 2 - 15 mmol/L BUN 22 6 - 25 mg/dL Creatinine 0.77 0.60 - 1.10 mg/dL Glucose 98 70 - 199 mg/dL Calcium 9.1 8.5 - 10.3 mg/dL Magnesium Collection Time: 07/24/23 4:32 AM Result Value Ref Range Magnesium 2.0 1.4 - 2.5 mg/dL eGFR Collection Time: 07/24/23 4:32 AM Result Value Ref Range eGFR 80 mL/min/1.73 m2 Pro B-type natriuretic peptide Collection Time: 07/24/23 4:32 AM Result Value Ref Range NT-proBNP 18,259 (H) <=450 pg/mL Transesophageal Echocardiogram (SOPHIE) W Possible Cardioversion Result Date: 07/20/2023 Narrative: [facility] Job ID: [id number] [facility] Document ID: [id number] Dictated date/time: [id number] NAME OF PROCEDURE 1. Transesophageal echocardiogram. 2. Cardioversion of atrial fibrillation. PROCEDURE The patient was kept in ICU bed 7. Consent form was signed. She was not allergic to any medication we are going to be giving her. Sedation time was about 25 minutes. Patient received in small increments 1 mg IV Versed and 50 mcg IV fentanyl. Topical anesthetics were given to the retropharynx twice. When well sedated, the probe went down to the distal esophagus very easily. FINDINGS The LV function was quite diminished with apical akinesis. Ejection fraction estimated at 25% to 30% at best. No thrombus in the left ventricle. Mitral valve leaflets opening and closing well with evidence of moderate to severe mitral regurgitation. Left atrium is definitely moderately dilated. Left atrial appendage is well seen and has no thrombus. Left atrial appendage velocity was diminished at 0.4 m/sec as expected from atrial fibrillation. Tricuspid valve leaflets opening and closing well with evidence of mild to moderate tricuspid regurgitation. The pulmonic valve is opening and closing well with pulmonic insufficiency. Aortic valve is tricuspid in nature and without any regurgitation orvegetation. On the way out, no hypermobile elements noted in the aortic arch. CONCLUSION 1. No hypermobile elements in aortic arch. 2. No thrombus left ventricular apex or left atrial appendage. 3. Moderately dilated left atrium. 4. Severely diminished global LV function with apical akinesis. LVEF of 25% to 30%. 5. Pulmonic insufficiency. 6. Tricuspid regurgitation, mild to moderate. 7. Mitral regurgitation, moderate to severe. 8. No clot in left atrial appendage with a low left atrial appendage velocity of 0.4 m/sec. After making sure patient continues to be well sedated, a 360 joule synchronized biphasic shock converted her from an irregular atrial fibrillation rhythm to regular rhythm that looks to be now atrial flutter. The patient will be continued on p.o. amiodarone after discontinuation of IV amiodarone. We may try to cardiovert her out of atrial flutter in a few weeks. Job ID/Internal Job ID: [id number] ECG 12 lead Result Date: 07/20/2023 Narrative: Vent Rate: 70 bpm RR Interval: 846 msec WV Interval: 0 msec QRS Duration: 154 msec QT Interval: 465 msec QTC Interval: 487 msec P-R-T Stinnett: [id number] - 69 - 195 degrees IMPRESSION: ATRIAL FLUTTER LEFT BUNDLE BRANCH BLOCK [120+ ms QRS DURATION, 80+ ms Q/S IN V1/V2, 85+ ms R IN I/aVL/V5/V6] ABNORMAL ECG Electronically Signed By: John Dominguez MD XR Chest 1 View Result Date: 07/19/2023 Narrative: EXAM DESCRIPTION: XR CHEST 1 VIEW REASON FOR STUDY: PICC placement. TECHNIQUE: Frontal radiographic view(s) of the chest. COMPARISON: Chest radiograph 07/16/2023 and 04/14/2019. FINDINGS: LUNGS: No focal consolidation, noting redemonstration of diffuse coarsened pulmonary markings. No large pleural effusion. No pneumothorax. HEART/MEDIASTINUM: Stable cardiomediastinal silhouette, noting mild cardiomegaly. LINES/TUBES: Interval placement of right upper extremity PICC with tip termination projecting over the superior vena cava. BONES: No acute osseous abnormality. IMPRESSION: Interval placement of right upper extremity PICC with tip termination projecting over the superior vena cava. No radiographic evidence of acute cardiopulmonary process. THIS IS AN ELECTRONICALLY VERIFIED FINAL REPORT 07/19/2023 2:14 PM - Electronically signed by Blaze Schwartz M.D. DYANA: DYANA Report ID: [id number] Reading Location: [id number] Cardiac Catheterization Result Date: 07/19/2023 Narrative: [facility] Job ID: [id number] [facility] Document ID: [id number] Dictated date/time: [id number] CARDIAC CATHETERIZATION A 78-year-old with obesity and shortness of breath. Echocardiogram showed severe segmental LV dysfunction. She is now having chest pain. She was referred for catheterization. INDICATION FOR PROCEDURE Takotsubo cardiomyopathy. PROCEDURE PERFORMED Left heart catheterization, selective coronary angiography, left ventriculography. After obtaining informed consent, patient was brought to the cardiac computer lab para professional. She was prepped and draped in the usual sterile fashion. Conscious sedation was administered by the computer lab para professional staff under my supervision. A total of 0.5 mg Vers ed and 25 mcg of fentanyl were given. See procedure log for further details. Total sedation time was 16 minutes. A 6-[place] sheath was inserted in the right radial artery. Combination of Angiomax, lidocaine, and nitroglycerin was administered intra-arterially. The selective coronary cannulation wasperformed using standard Eddy catheters. Left ventriculography was performed in the MATA projection using pigtail followed by left heart pullback. At the end of procedure, the arterial sheath was removed and hemostasis achieved by applying TR band to the right wrist. FINDINGS: HEMODYNAMICS: LV pressure was 120/25, ascending aortic pressure 120/80. There was significant respiratory variations ofher pressures. LEFT VENTRICULOGRAPHY: This showed akinesis of the anterolateral apical and diaphragmatic segment. The basal segments were reasonably well. Overall ejection fraction 20% to 25%. There was moderate +2 mitral regurgitation. RIGHT CORONARY ARTERY: The right coronary artery was a large dominant vessel and gives distally medium-sized posterior descending and several posterolateral branches. The right coronary system was angiographically normal. LEFT CORONARY ARTERY: The left main coronary artery, the circumflex, the obtuse marginal branches were angiographically normal. The left anterior descending was also patent. There was possible muscle bridge in the mid segment. IMPRESSION 1.Angiographically no significant obstructive coronary artery disease. 2. Segmental left ventricular systolic dysfunction consistent with Takotsubo cardiomyopathy. 3. Moderate mitral regurgitation. 4. Elevated left ventricular diastolic pressure. CARE PLAN Medical therapy per primary team. John Dominguez MD Job ID/Internal Job ID: [id number] ECG 12 lead Result Date: 07/19/2023 Narrative: Vent Rate: 91 bpm RR Interval: 655 msec WV Interval: 0 msec QRS Duration: 123 msec QT Interval: 420 msec QTC Interval: 469 msec P-R-T Stinnett: [id number] - 65 - 208 degrees IMPRESSION: ATRIAL FIBRILLATION MODERATE INTRAVENTRICULAR CONDUCTION DELAY [110+ ms QRS DURATION] ST DEVIATION AND MODERATET-WAVE ABNORMALITY, CONSIDER ANTEROLATERAL ISCHEMIA [-0.1+ mV T-WAVE IN V3-V6] ST DEVIATION AND MODERATE T-WAVE ABNORMALITY, CONSIDER INFERIOR ISCHEMIA [-0.1+ mV T-WAVE IN II/aVF] ABNORMAL ECG Compared to prior EKG, anterolateral T- wave inversions are new QT interval has increased Electronically Signed By: John Dominguez MD ECG 12 lead Result Date: 07/18/2023 Narrative: Vent Rate: 100 bpm RR Interval: 597 msec WV Interval: 0 msec QRS Duration: 128 msec QT Interval: 355 msec QTC Interval: 412 msec P-R-T Stinnett: [id number] - 33 - 56 degrees IMPRESSION: UNCERTAIN REGULAR RHYTHM, probably junctional POSSIBLE LATERAL MYOCARDIAL INFARCTION , OF INDETERMINATE AGE [30ms Q WAVE IN I/aVL/V5/V6] CRITICAL TEST RESULT Compared to prior EKG, P-waves are not present Electronically Signed By: John Dominguez MD ECG 12 lead Result Date: 07/18/2023 Narrative: Vent Rate: 85 bpm RR Interval: 700 msec WV Interval: 0 msec QRS Duration: 123 msec QT Interval: 403 msec QTC Interval: 445 msec P-R-T [place]ett: [id number] - 33 - 52 degrees IMPRESSION: UNCERTAIN REGULAR RHYTHM, probably junctional POSSIBLE LATERAL MYOCARDIAL INFARCTION , OF INDETERMINATE AGE [30 ms Q WAVE IN I/aVL/V5/V6] ABNORMAL ECG NO CHANGE FROM PREVIOUS TRACING NOTED Electronically Signed By: John Dominguez MD Transthoracic Echo (TTE) Complete W Doppler/CF Result Date: 07/18/2023 Narrative: [address] [place] [address] Echocardiogram Report Patient Name: PEBBLES LAL L : 1945 Study Date: 07/18/2023 8:50:58 AM Gender: F Tech: Location: [place] [address] Ref Provider: GIANLUCA SORIANO Height(Cm): 152 BSA: 2.39 Weight(Kg): 135.2 Quality: Adequate Order Provider: GRACIELA SORIANOOPROCEDURES: Echocardiographic Report: Transthoracic echocardiogram with complete 2D, M-Mode, and color Doppler examination. INDICATIONS: Congestive Heart Failure. Measurements: 2D/M Mode Doppler Measu rement Value Normal Range Measurement Value Normal Range EF Teich MM 47.3 [ 55.0 - 70.0 ] percent DANIELLE Vmax 2.33 [ 2.00 - 4.00 ] cm2 LVIDd MM 6.07 [ 3.90 - 5.30 ] cm AV Mean PG 11 [ 2 - 4 ] mmHg LVIDs MM 4.60 [ 2.30 - 3.90 ] cm AV Peak Morales 1.48 [ <= 0.02 ] m/s LVPWd MM 0.87 [ 0.60 - 1.00 ] cm AV VTI 25.96 cm IVSd MM 0.99 [ 0.60 - 0.90 ] cm LVOT Diam 2.18 [ 1.70 - 2.10 ] cm LA Dimension MM 5.15 [ 2.70 - 3.80 ] cm LVOT Peak Morales 0.92 [ <= 0.01 ] m/s AoR Diam 2D 2.83 [ 2.60 - 3.70 ] cm LVOT VTI 16.52 [ 20.00 - 30.00 ] cm AoR Diam MM 3.29 [ 2.60 - 3.70 ] cm MV Mean PG 2 [ <= 5 ] mmHg PV Peak Morales 0.77 m/s TR Peak Morales 3.43 [ <= 0.03 ] m/s TR Peak PG 47 mmHg RVSP 57.00 [ 10.00 - 36.00] mmHg PA Pressure 10.00 [ 10.00 - 36.00 ] mmHg Measurement Value Normal Range Measurement Value No rmal Range 2D/M Mode Doppler - FINDINGS: Atrial Septum: Normal atrial septum. Left Ventricle: Irregular rhythm. Mild concentric left ventricular hypertrophy. Moderate global left ventricular systolic dysfunction. Ejection fraction is visually estimated at 35 to 40 %. 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 Left Atrium: There is mild enlargement of left atrium. Right Ventricle: Normal right ventricular size. Right Atrium: The right atrium is normal in size. Aortic Valve: Normal structure of the aortic valve. Mitral Valve: Mild mitral annular calcification. Mild to moderate mitral valve regurgitation. Pulmonic Valve: Normal structure of the pulmonic valve. Tricuspid Valve: Normal structure of the tricuspid valve. Moderate pulmonary hypertension based on right ventricular systolic pressure. Estimated peak RVSP is 57 to 61 mmHg. Trivial regurgitation in the tricuspid valve. Pericardium: Normal pericardium with no significant pericardial effusion. Aorta: Normal aortic root. IVC: Normal size and normal respiratory collapse consistent with normal right atrial pressure (<5 mmHg). CONCLUSIONS: Irregular rhythm. Mild concentric left ventricular hypertrophy. Moderate global left ventricular systolic dysfunction. Ejection fraction is visually estimated at 35 to 40 %. 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 There is mild enlargement of left atrium. Mild mitral annular calcification. Mild to moderate mitral valve regurgitation. Normal structure of the aortic valve. Normal structure of thetricuspid valve. Moderate pulmonary hypertension based on right ventricular systolic pressure. Estimated peak RVSP is 57 to 61 mmHg. Trivial regurgitation in the tricuspid valve. Electronically Signed By: Dr Roly Husain 2023-07-18 10:07:11 CONCRETE TESTER XR CHEST 1 VIEW PORTABLE Result Date: 07/16/2023 Narrative: EXAM DESCRIPTION: XR CHEST 1 VIEW REASON FOR STUDY: cough Pt presents [facility] with nausea vomiting diarrhea spo2 89% RA TECHNIQUE: 1 radiographic view(s) of the chest. COMPARISON: 04/14/2019 FINDINGS: Stable cardiomegaly. Poor inspiratory result with bibasilar discoid atelectasis. Mild pulmonary vascular congestion. No airspace consolidation. No pneumothorax. IMPRESSION: Cardiomegaly and mild pulmonary vascular congestion. THIS IS AN ELECTRONICALLY VERIFIED FINAL REPORT 07/16/2023 10:43 PM - Electronically signed by Pawan Mata M.D. KT: KT Report ID: [id number] Reading Location: [place] [address] Current Facility-Administered Medications Medication Dose Route Frequency Provider Last Rate Last Admin acetaminophen (TYLENOL) tablet 650 mg 650 mg oral Q4H PRN Maciel Jean MD 650 mg at 07/22/23 0758 albuterol 2.5 mg /3 mL (0.083 %) nebulizer solution 2.5 mg 2.5 mg nebulization Q4H PRN (RT) Joycelyn Moseley MD 2.5 mg at 07/20/23 193 amiodarone (PACERONE) tablet 200 mg 200 mg oral BID Roly Husain MD 200 mg at 07/24/23 0905 [START ON 08/02/2023] amiodarone (PACERONE) tablet 200 mg 200 mg oral Daily Roly Husain MD [Held by Provider] apixaban (ELIQUIS) tablet 2.5 mg 2.5 mg oral Q12H SAL Maciel Jean MD 2.5 mg at 07/24/23 0905 buPROPion SR (WELLBUTRIN SR) 12 hour tablet 150 mg 150 mg oral BID Maciel Jean MD 150 mg at 07/24/23 0905 carvediloL (COREG) tablet 3.125 mg 3.125 mg oral BID with meals (bkfst, dinner) Roly Husain MD 3.125 mg at 07/24/23 0905 famotidine (PEPCID) tablet 20 mg 20 mg oral Daily Maciel Jean MD 20 mg at 07/24/23 09 FLUoxetine (PROzac) capsule 40 mg 40 mg oral Daily Maciel Jean MD 40 mg at 07/24/23 09 furosemide (LASIX) 10 mg/mL injection 60 mg 60 mg intravenous Daily Karen Zambrano MD 60 mg at 07/24/23 1153 HYDROcodone-acetaminophen (NORCO) 5-325 mg per tablet 1 tablet 1 tablet oral Q4H PRN Maciel Jean MD 1 tablet at 07/20/23 0212 influenza quadrivalent [id number] (FLUZONE HIGH DOSE) 240 mcg/0.7 mL vaccine (HIGH DOSE age 65 yearsand up) 0.7 mL 0.7 mL intramuscular During hospitalization Maciel Jean MD miconazole 2 % powder topical BID Maciel Jean MD Given at 07/24/23 0908 ondansetron (ZOFRAN) injection 4 mg 4 mg intravenous Q4H PRN Maciel Jean MD 4 mg at 07/24/23 1003 psyllium (aspartame) SF (METAMUCIL SF) 3.4 gram packet 1 packet 1 packet oral Nightly Maciel Jean MD 1 packet at 07/23/232038 sacubitriL-valsartan (ENTRESTO) 24-26 mg tablet 1 tablet 1 tablet oral BID Roly Husain MD 1 tablet at 07/24/23 0906 sodium chloride 0.9% flush 5-10 mL 5-10 mL intra-catheter Q12H SAL Maciel Jean MD 10 mL at 07/24/23 0909 sodium chloride 0.9% flush 5-20 mL 5-20 mL intra-catheter PRN Maciel Jean MD spironolactone (ALDACTONE) tablet 25 mg 25 mg oral Daily Roly Husain MD 25 mg at 07/24/23 0905 A/P: 1. Takotsubo cardiomyopathy, continue Coreg, Entresto, spironolactone, diuresis. Patient continues to be severely weak, unable to independently sit up or ambulate. She sleeps all day long. Will give 1 more dose of Lasix 60 mg. Per I&O pressure diuresed-1000 cc yesterday. Discussed the management with Dr. Husain today 2. Hyponatremia is corrected. Most likely positive affect of diuresis. Sodium was 131 now it is 135. 3. New onset atrial fibrillation, heart rate is being controlled with loading dose of amiodarone, continue apixaban, Coreg. 4. Hematuria, patient does have indwelling Stafford catheter placement this admission. Most likely associated with anticoagulation and probably some trauma. Monitoring H&H. So far hemoglobin is 13.1. Will see if the Stafford catheter starts draining clear urine by tomorrow and then will make a decision about anticoagulation. 07/24/23 Continues to be short of breath, and no significant change since yesterday. The nocturnal oxygen study was insignificant but patient does have baseline mild hypercapnia and hypoxemia, most likely hasobstructive sleep apnea. Will ask respiratory therapy to start BiPAP and see how she will tolerate.She sleeps all day long. Starting Lasix 60 mg IV today and every day. Patient was getting the same amount of Lasix for the last 3 days, monitor creatinine and electrolytes daily. Creatinine is remaining within normal limits Hematuria, the hemoglobin did not drop, monitoring daily. Most likely some sort of trauma when theyplaced a Stafford catheter in. Patient is on anticoagulation with Eliquis which was on hold but we need to restarted. Tele monitor still shows she has in a flutter. Continuing amiodarone loading dose per Cardiology recommendation. These fluid and electrolyte abnormalities are being treated, evaluated or monitored: No fluid or electrolyte disorders MDM Moderate Principal Problem: Vomiting and diarrhea Active Problems: Class 3 severe obesity due to excess calories with serious comorbidity and body mass index (BMI) of50.0 to 59.9 in adult ([facility]) Acquired hypothyroidism NSTEMI (non-ST elevated myocardial infarction) (CMS/HCC) ([facility]) Takotsubo cardiomyopathy Mitral regurgitation New onset atrial fibrillation (CMS/HCC) ([facility]) Resolved Problems: No resolved hospital problems. Voice recognition software [employer] was used dictate and transcribe this document. Photogrammetric Surveyor variances may occur. Despite proofreading, typographical errors may occur. Karen Zambrano MD 07/24/2023 12:56 PM RETE TESTER * Roly Husain MD - 07/24/2023 8:55 AM CST Cardiology Progress Note 07/24/23 Patient was found lying in bed on 2 L nasal cannula saturating 97%. She appears to be more alert than yesterday. Apparently was out of bed in the chair for 2 hours yesterday. We discussed that urine is showing some blood and thus Eliquis may have to be discontinued. Vital Signs: Vitals: 07/24/23 0131 07/24/23 0555 07/24/23 0728 07/24/23 0800 BP: 115/65 BP Location: Left arm Patient Position: Lying Pulse: 71 71 Resp: 20 Temp: 36.3 ??C (97.4 ??F) TempSrc: Temporal SpO2: (!) 88% (!) 88% 97% Weight: Height: Intake/Output Summary (Last 24 hours) at 07/24/2023 0855 Last data filed at 07/24/2023 0429 Gross per 24 hour Intake 0 ml Output 1500 ml Net -1500 ml Wt Readings from Last 3 Encounters: 07/23/23 (!) 138.9 kg (306 lb 3.5 oz) 03/28/23 131.1 kg (289 lb) 09/20/22 131.1 kg (289 lb) Temp Min: 35.9 ??C (96.7 ??F) Max: 36.3 ??C (97.4 ??F) Pulse Min: 71 Max: 77 BP Min: 113/56 Max: 122/64 Resp Min: 17 Max: 20 SpO2 Min: 88 % Max: 98 % Stafford is draining some dark urine. Current Medications: Current Facility-Administered Medications Medication Dose Route Frequency Provider Last Rate Last Admin acetaminophen (TYLENOL) tablet 650 mg 650 mg oral Q4H PRN Maciel Jean MD buPROPion SR (WELLBUTRIN SR) 12 hour tablet 150 mg 150 mg oral BID Maciel Jean MD 150 mg at 07/18/23 0840 cefTRIAXone (ROCEPHIN) 1,000 mg/10 mL in sterile water (premix) 1,000 mg 1,000 mg intravenous DailyM[facility] AlpenaSilvia kaufman MD 1,000 mg at 07/18/23 0841 dextrose 5% and sodium chloride 0.45% infusion (premix) 100 mL/hr intravenous Continuous Maciel Jean MD 100 mL/hr at 07/18/23 0841 100 mL/hr at 07/18/23 0841 enoxaparin (LOVENOX) syringe 40 mg 40 mg subcutaneous Daily-2100 Maciel Jean MD 40 mg at 07/17/232206 famotidine (PEPCID) injection 20 mg 20 mg intravenous Q24H [facility] Maciel Jean MD 20 mg at 840 FLUoxetine (PROzac) capsule 40 mg 40 mg oral Daily Maciel Jean MD 40 mg at 07/18/23 0840 HYDROcodone-acetaminophen (NORCO) 5-325 mg per tablet 1 tablet 1 tablet oral Q4H PRN Maciel Jean MD 1 tablet at 07/18/23 0520 influenza quadrivalent [id number] (FLUZONE HIGH DOSE) 240 mcg/0.7 mL vaccine (HIGH DOSE age 65 yearsand up) 0.7 mL 0.7 mL intramuscular During hospitalization Maciel Jean MD miconazole 2 % powder topical BID Maciel Jean MD Given at 07/18/23 0852 ondansetron (ZOFRAN) injection 4 mg 4 mg intravenous Q4H PRN Maciel Jean MD 4 mg at 07/18/23 0926 psyllium (aspartame) SF (METAMUCIL SF) 3.4 gram packet 1 packet 1 packet oral Nightly Maciel Jean MD Labs: Recent Labs Lab Units 07/24/23 0432 07/23/23 0634 07/23/23 0238 07/22/23 0514 07/21/23 0630 07/20/23 0405 07/19/23 0417 SODIUM mmol/L 136 135 -- 134* 131* 134* 133* POTASSIUM PLASMA mmol/L 3.8 4.2 -- 3.7 3.9 3.6 3.6 CHLORIDE mmol/L 96* 96* -- 95* 94* 96* 95* CO2 mmol/L 31 31 -- 28 27 29 24 BUN SERUM mg/dL 22 24 -- 25 25 22 20 CREATININE mg/dL 0.77 0.70 -- 0.75 0.75 0.72 0.77 [id number] mL/min/1.73 m2 80 90 -- 82 82 87 80 GLUCOSE mg/dL 98 98 -- 100 105 106 101 POC GLUCOSE MONITOR -- -- < > -- -- -- -- CALCIUM mg/dL 9.1 8.7 -- 8.8 9.4 9.2 9.0 ALBUMIN g/dL -- -- -- -- 2.9* 3.1* 3.0* PHOSPHORUS PLASMA mg/dL 2.3 2.6 -- 2.6 2.3 2.7 2.4 < > = values in this interval not displayed. Recent Labs Lab Units 07/21/23 0630 07/20/23 0405 07/19/23 0417 ALK PHOS Units/L 113 122 117 BILIRUBIN TOTAL mg/dL 0.5 0.4 0.3 TOTAL PROTEIN g/dL 6.8 7.1 7.1 ALT Units/L 16 18 15 AST Units/L 16 19 23 Recent Labs Lab Units 07/24/23 0432 07/23/23 0634 07/22/23 0514 WBC K/cumm 13.0* 13.0* 13.0* HEMOGLOBIN g/dL 12.9 13.1 13.1 HEMATOCRIT % 38.8 39.7 38.3 PLATELETS K/cumm 338 378 379 Lab Results Component Value Date TSH 1.45 07/17/2023 Lab Results Component Value Date CHOL 150 03/21/2023 TRIG 61 03/21/2023 HDL 76 03/21/2023 LDLCALC 62 03/21/2023 No results found for: TROPONINT Telemetry: Cardiac Rhythm: Atrial flutter (07/22/23 0815) Cardiology Testing: ProBNP: EKG: Echocardiogram: Stress Test: Cardiac Cath: Impression: Elevated cardiac troponins likely due to multiple etiologies: underlying UTI/sepsis and also acute kidney injury. Now also has takotsubo cardiomyopathy with normal coronaries on recent cardiac catheterization. Moderate to severe LV systolic dysfunction noted. So far -2,587 mL. On 1 L saturating 92%. 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 by S[facility] 20 July 2023. Atrial fibrillation, cardioverted on 20 July 2023 to atrial flutter. Already on Eliquis 2.5 mg p.o. b.i.d, but now we have hematuria. Chronic pain syndrome. Hypertension Plan: Continue with front loading a p.o. amiodarone. Wearable defibrillator on discharge. Continue to try to increase activities with physical therapy. Follow-up with me 17 August 2023. 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 HX OTHER MEDICAL IGT Hypertension Moderate episode of recurrent major depressive disorder (HCC) 12/05/2017 07/23/23 0939 General Chart Reviewed Yes Session Type Evaluation OT Received On 07/23/23 Safe Environment Arm band checked;Patient found in supine;Gait belt utilized for all out of bed mobility Subjective Agreeable to Therapy Additional Pertinent History Bacteremia UTI, SOB, resp failure, history of hypertension, hypercholesterolemia, hypothyroidism, depression, asthma, chronic pain syndrome Family/Caregiver Present No Occupational Therapy-Patient Goal none stated Precautions Precautions Fall risk Home Living Type of Home House Home Layout One level;Performs ADLs on one level Home Access Ramped entrance Home Mobility Equipment-Available Wheeled walker;Wheelchair-manual Home Mobility Equipment-Currently Using Wheeled walker;Wheelchair-manual Prior Function Level of [place] Needs assistance with ADLs;Needs assistance with ambulation;Needs assistance with homemaking;Needs assistance with functional transfers Lives With Spouse Receives Help From Spouse/Significant other Driving No Fall within the last 6 months Yes ADL ADLS (WDL) X ADL Comments pt declined toileting and bathing tasks Grooming Grooming: Where assessed Edge of bed Grooming: Level of assistance Dependent Grooming: Assistance with Brushing hair (when handed comb, pt states you do it and does not grasp comb.) Pain Assessment Pain Assessment 0-10 Pain Score 5 - Moderate pain Pain Location Knee Pain Orientation Right;Left Pain Interventions Repositioned Activity Tolerance Endurance Tolerates less than 10 min activity no significant change in vital signs Activity Tolerance Comments rest breaks with activity Cognition Cognition Comments forgetful, slow processing, when in bed yells someone come get me up! then when at EOB states I want to lay down . Overall Cognitive Status Impaired Orientation Oriented to person;Oriented to place;Oriented to time (year only) Following Commands Follows one step commands with repetition Insight Not aware of deficits Compliance/Behavior Easy to engage Balance Balance Yes Static Sitting Balance Static Sitting-Balance Support Bilateral upper extremity supported;Feet supported Static Sitting-Sitting Surface Bed Static Sitting-Level of Assistance Minimum assistance;Contact guard;Moderate assistance Static Sitting-Comment/# of Minutes poor safety sitting at EOB Bed Mobility 1 Bed Mobility From 1 Supine Bed Mobility Type 1 To and from Bed Mobility to 1 Edge of bed Level of Assistance 1 Minimum Assist;Moderate Assist (varies pending motivation with both sup<>sit Min-Mod assist of 2.) Transfers Transfer (pt adamantly declined sit to stand at EOB, she states she is too tired and hurt too much with sitting EOB) RUE Assessment RUE Assessment X RUE Comments ROM WFL, strength grossly 4-/5 LUE Assessment LUE Assessment X LUE Comments ROM WFL, strength grossly 4-/5 Safe Environment End of Therapy Session Safe Environment End of Therapy Session Patient left supine in bed;Bed alarm in place and activated;RN notified;Call light within reach;Overbed table within reach Assessment Prognosis Good Problem List Decreased upper extremity strength;Decreased endurance;Decreased functional mobility;Decreased safe judgment during ADL;Decreased fine motor control;Decreased ADL independence Plan Plan Plan of care initiated;If this is the last note, consider this the discharge summary Recommendation/Plan OT Recommendation Fdc Facility Patient at high risk for Falls;Readmission;Injury due to decreased ability to care for self;Injury due to reduced functional status;Injury due to impaired cognition;Injury due to balance deficits;Injury at home as patient has not returned to prior level of function;Developing impaired skin integrity Recommend SNF due to Risk of injury at home;Unable to safely care for self in the home;Skilled therapy needed to address care for self in the home;Skilled therapy needed for patient to return to prior level of independence;Skilled therapy needed to address functional deficits OT Frequency during current admission 2-3x/wk (Mon-Fri, Sat PRN) Treatment/Interventions during current admission ADL/IADL retraining;Balance Training;Bed mobility;Functional activity;Functional mobility training;Therapeutic activity;Therapeutic exercise;Strengthening OT Evaluation Complete Yes Multi-Disciplinary Problems (from Occupational Therapy) Active Problems Problem: Eating Start Date: 07/23/23 Goal Start Date Expected End Date End Date STG - Patient will feed self 07/23/23 07/30/23 -- Goal Details: SBA after setup with moderate spillage Problem: Grooming Start Date: 07/23/23 Goal Start Date Expected End Date End Date STG - Patient will complete grooming 07/23/23 07/30/23 -- Goal Details: Mod assist after setup Problem: Toileting Start Date: 07/23/23 Goal Start Date Expected End Date End Date STG - Patient will complete toileting tasks with 07/23/23 07/30/23 -- Goal Details: Pt will roll to LT and RT with mod assist of one for improved independence with toileting tasks Problem: Transfers Start Date: 07/23/23 Goal Start Date Expected End Date End Date STG - Patient will perform toilet transfer 07/23/23 07/30/23 -- Goal Details: Pt will participate in toilet transfer Problem: OT Misc Start Date: 07/23/23 Goal Start Date Expected End Date End Date OT STG - Misc 1 07/23/23 07/30/23 -- Goal Details: Patient will tolerate bilateral upper extremity strengthening x 10 repetitions each with good utilization of energy conservation techniques for improved functional capacity and upper extremity strength to improve independence with ADL completion. RETE TESTER * Ave Fagan, AUTOCLAVE OPERATOR - 07/23/2023 10:25 AM CST Physical Therapy 07/23/23 0940 PT Last Visit Session Type Treatment Safe Environment Arm band checked;Patient found in supine;Session completed bedside;Gait belt utilized for all out of bed mobility Pain Assessment Pain Score 4 Patient's Stated Pain Goal 5 Pain Location Knee Bed Mobility 1 Bed Mobility Type 1 To and from Bed Mobility to 1 Edge of bed Level of Assistance 1 Minimum Assist;Moderate Assist (min/mod x2) Transfers Transfer (pt adamantly declinec standing eob) Safe Environment End of Therapy Session Safe Environment End of Therapy Session Patient left supine in bed;Call light within reach;Overbed table within reach Assessment Prognosis Guarded Problem List Decreased strength;Decreased range of motion;Decreased endurance;Impaired balance;Decreased mobility Plan Plan If this is the last note, consider this the discharge summary Recommendation/Plan PT Recommendation/Plan Fdc Facility Patient at high risk for Falls;Readmission;Injury due to decreased ability to care for self;Injury due to reduced functional status;Injury due to balance deficits Recommend SNF due to Risk of injury at home;Unable to safely care for self in the home;Skilled therapy needed to address care for self in the home;Skilled therapy needed to address functional deficits;Skilled therapy needed for patient to return to prior level of independence RETE TESTER * Karen Zambrano MD - 07/23/2023 8:14 AM CST General Medicine Daily Progress SUBJECTIVE Chief complaint of takotsubo cardiomyopathy. Interval History: No changes since yesterday, patient is very weak, no energy, can not even move inthe bed independently. She sleeps all day long OBJECTIVE Vitals: 24hr Min/Max: Temp Min: 35.9 ??C (96.7 ??F) Max: 36.7 ??C (98 ??F) Pulse Min: 71 Max: 73 BP Min: 119/65 Max: 139/82 Resp Min: 16 Max: 26 SpO2 Min: 89 % Max: 96 % Most Recent : Vitals: 07/23/23 0329 BP: 123/67 Pulse: 72 Resp: 20 Temp: 36.2 ??C (97.1 ??F) SpO2: 95% I/O last 2 completed shifts: In: 0 Out: 500 [Urine:500] No intake/output data recorded. Physical Exam: Eyes: EOMI, LINDA, sclare non icteric Neck: supple, no nuchal ridigity, no gross carotid bruits appreciated Pharynx: No gross oral lesion, tongue midline, mucosa moist Lungs diminished bilaterally Heart: [id number], no significant murmur or gallop Abd: +BS, Non Tender, Non distended, No gross hepatomegaly Lower Ext: 1+ edema, pedal artery pulses are palpable bilaterally Neuro: No new deficits appreciated Musculoskeletal: no gross joint erythema, edema, tenderness Skin: No new change Lab/Current Medication Review: Recent Results (from the past 24 hour(s)) Blood gas, arterial Collection Time: 07/22/23 1:08 PM Result Value Ref Range pH, Art 7.40 7.35 - 7.45 PCO2, Arterial 48 (H) 35 - 45 mmHg PO2, Arterial 69 (L) 83 - 108 mmHg HCO3 Art (Calculated) 29 20 - 30 mmol/L BE, art 4 mmol/L O2 Sat Art (Measured) 94 90 - 95 % POCT glucose Collection Time: 07/23/23 2:38 AM Result Value Ref Range Glucose, POC 90 71 - 98 mg/dL Phosphorus Collection Time: 07/23/23 6:34 AM Result Value Ref Range Phosphorus, pl 2.6 2.3 - 4.5 mg/dL CBC without differential Collection Time: 07/23/23 6:34 AM Result Value Ref Range WBC 13.0 (H) 3.8 - 9.9 K/cumm Hgb 13.1 11.9 - 15.5 g/dL Hct 39.7 35.6 - 45.5 % Plt 378 150 - 400 K/cumm MPV 9.3 9.1 - 12.3 fL RBC 4.17 3.90 - 5.20 M/cumm MCV 95.2 81.3 - 96.4 fL MCH 31.4 27.1 - 33.3 pg MCHC 33.0 32.3 - 35.7 g/dL RDW CV 13.9 11.1 - 14.9 % RDW SD 48.6 (H) 35.7 - 48.1 fL NRBC abs 0.20 (H) 0.00 - 0.01 K/cumm Basic metabolic panel Collection Time: 07/23/23 6:34 AM Result Value Ref Range Sodium 135 135 - 145 mmol/L Potassium, pl 4.2 3.3 - 4.9 mmol/L Chloride 96 (L) 97 - 110 mmol/L CO2 31 22 - 32 mmol/L Anion gap 8 2 - 15 mmol/L BUN 24 6 - 25 mg/dL Creatinine 0.70 0.60 - 1.10 mg/dL Glucose 98 70 - 199 mg/dL Calcium 8.7 8.5 - 10.3 mg/dL eGFR Collection Time: 07/23/23 6:34 AM Result Value Ref Range eGFR 90 mL/min/1.73 m2 Transesophageal Echocardiogram ([facility]) W Possible Cardioversion Result Date: 07/20/2023 Narrative: [place] Job ID: [id number] [facility] Document ID: [id number] Dictated date/time: [id number] NAME OF PROCEDURE 1. Transesophageal echocardiogram. 2. Cardioversion of atrial fibrillation. PROCEDURE The patient was kept in ICU bed 7. Consent form was signed. She was not allergic to any medication we are going to be giving her. Sedation time was about 25 minutes. Patient received in small increments 1 mg IV Versed and 50 mcg IV fentanyl. Topical anesthetics were given to the retropharynx twice. When well sedated, the probe went down to the distal esophagus very easily. FINDINGS The LV function was quite diminished with apical akinesis. Ejection fraction estimated at 25% to 30% at best. No thrombus in the left ventricle. Mitral valve leaflets opening and closing well with evidence of moderate to severe mitral regurgitation. Left atrium is definitely moderately dilated. Left atrial appendage is well seen and has no thrombus. Left atrial appendage velocity was diminished at 0.4 m/sec as expected from atrial fibrillation. Tricuspid valve leaflets opening and closing well with evidence of mild to moderate tricuspid regurgitation. The pulmonic valve is opening and closing well with pulmonic insufficiency. Aortic valve is tricuspid in nature and without any regurgitation orvegetation. On the way out, no hypermobile elements noted in the aortic arch. CONCLUSION 1. No hypermobile elements in aortic arch. 2. No thrombus left ventricular apex or left atrial appendage. 3. Moderately dilated left atrium. 4. Severely diminished global LV function with apical akinesis. LVEF of 25% to 30%. 5. Pulmonic insufficiency. 6. Tricuspid regurgitation, mild to moderate. 7. Mitral regurgitation, moderate to severe. 8. No clot in left atrial appendage with a low left atrial appendage velocity of 0.4 m/sec. After making sure patient continues to be well sedated, a 360 joule synchronized biphasic shock converted her from an irregular atrial fibrillation rhythm to regular rhythm that looks to be now atrial flutter. The patient will be continued on p.o. amiodarone after discontinuation of IV amiodarone. We may try to cardiovert her out of atrial flutter in a few weeks. Job ID/Internal Job ID: [id number] ECG 12 lead Result Date: 07/20/2023 Narrative: Vent Rate: 70 bpm RR Interval: 846 msec WV Interval: 0 msec QRS Duration: 154 msec QT Interval: 465 msec QTC Interval: 487 msec P-R-T Stinnett: [id number] - 69 - 195 degrees IMPRESSION: ATRIAL FLUTTER LEFT BUNDLE BRANCH BLOCK [120+ ms QRS DURATION, 80+ ms Q/S IN V1/V2, 85+ ms R IN I/aVL/V5/V6] ABNORMAL ECG Electronically Signed By: John Dominguez MD XR Chest 1 View Result Date: 07/19/2023 Narrative: EXAM DESCRIPTION: XR CHEST 1 VIEW REASON FOR STUDY: PICC placement. TECHNIQUE: Frontal radiographic view(s) of the chest. COMPARISON: Chest radiograph 07/16/2023 and 04/14/2019. FINDINGS: LUNGS: No focal consolidation, noting redemonstration of diffuse coarsened pulmonary markings. No large pleural effusion. No pneumothorax. HEART/MEDIASTINUM: Stable cardiomediastinal silhouette, noting mild cardiomegaly. LINES/TUBES: Interval placement of right upper extremity PICC with tip termination projecting over the superior vena cava. BONES: No acute osseous abnormality. IMPRESSION: Interval placement of right upper extremity PICC with tip termination projecting over the superior vena cava. No radiographic evidence of acute cardiopulmonary process. THIS IS AN ELECTRONICALLY VERIFIED FINAL REPORT 07/19/2023 2:14 PM - Electronically signed by Blaze Schwartz M.D. DYANA: DYANA Report ID: [id number] Reading Location: [id number] Cardiac Catheterization Result Date: 07/19/2023 Narrative: Amphion Job ID: [id number] Amphion Document ID: [id number] Dictated date/time: [id number] CARDIAC CATHETERIZATION A 78-year-old with obesity and shortness of breath. Echocardiogram showed severe segmental LV dysfunction. She is now having chest pain. She was referred for catheterization. INDICATION FOR PROCEDURE Takotsubo cardiomyopathy. PROCEDURE PERFORMED Left heart catheterization, selective coronary angiography, left ventriculography. After obtaining informed consent, patient was brought to the cardiac computer lab para professional. She was prepped and draped in the usual sterile fashion. Conscious sedation was administered by the computer lab para professional staff under my supervision. A total of 0.5 mg Verse d and 25 mcg of fentanyl were given. See procedure log for further details. Total sedation time was16 minutes. A 6-[place]i sheath was inserted in the right radial artery. Combination of Angiomax, lidocaine, and nitroglycerin was administered intra-arterially. The selective coronary cannulation was performed using standard Eddy catheters. Left ventriculography was performed in the MATA projection using pigtail followed by left heart pullback. At the end of procedure, the arterial sheath was removed and hemostasis achieved by applying TR band to the right wrist. FINDINGS: HEMODYNAMICS: LV pressure was 120/25, ascending aortic pressure 120/80. There was significant respiratory variations of her pressures. LEFT VENTRICULOGRAPHY: This showed akinesis of the anterolateral apical and diaphragmatic segment. The basal segments were reasonably well. Overall ejection fraction 20% to 25%. There was moderate +2 mitral regurgitation. RIGHT CORONARY ARTERY: The right coronary artery was a large dominant vessel and gives distally medium-sized posterior descending and several posterolateral branches. The right coronary system was angiographically normal. LEFT CORONARY ARTERY: The left main coronary artery, the circumflex, the obtuse marginal branches were angiographically normal. The left anterior descending was also patent. There was possible muscle bridge in the mid segment. IMPRESSION 1. Angiographically no significant obstructive coronary artery disease. 2. Segmental left ventricular systolic dysfunction consistent with Takotsubo cardiomyopathy. 3. Moderate mitral regurgitation. 4. Elevated left ventricular diastolic pressure. CARE PLAN Medical therapy per primary team. John Dominguez MD Job ID/Internal Job ID: [id number] ECG 12 lead Result Date: 07/19/2023 Narrative: Vent Rate: 91 bpm RR Interval: 655 msec WV Interval: 0 msec QRS Duration: 123 msec QT Interval: 420 msec QTC Interval: 469 msec P-R-T Stinnett: [id number] - 65 - 208 degrees IMPRESSION: ATRIAL FIBRILLATION MODERATE INTRAVENTRICULAR CONDUCTION DELAY [110+ ms QRS DURATION] ST DEVIATION AND MODERATET-WAVE ABNORMALITY, CONSIDER ANTEROLATERAL ISCHEMIA [-0.1+ mV T-WAVE IN V3-V6] ST DEVIATION AND MODERATE T-WAVE ABNORMALITY, CONSIDER INFERIOR ISCHEMIA [-0.1+ mV T-WAVE IN II/aVF] ABNORMAL ECG Compared to prior EKG, anterolateral T- wave inversions are new QT interval has increased Electronically Signed By: John Dominguez MD ECG 12 lead Result Date: 07/18/2023 Narrative: Vent Rate: 100 bpm RR Interval: 597 msec WV Interval: 0 msec QRS Duration: 128 msec QT Interval: 355 msec QTC Interval: 412 msec P-R-T [place]ett: [id number] - 33 - 56 degrees IMPRESSION: UNCERTAIN REGULAR RHYTHM, probably junctional POSSIBLE LATERAL MYOCARDIAL INFARCTION , OF INDETERMINATE AGE [30ms Q WAVE IN I/aVL/V5/V6] CRITICAL TEST RESULT Compared to prior EKG, P-waves are not present Electronically Signed By: John Dominguez MD ECG 12 lead Result Date: 07/18/2023 Narrative: Vent Rate: 85 bpm RR Interval: 700 msec WV Interval: 0 msec QRS Duration: 123 msec QT Interval: 403 msec QTC Interval: 445 msec P-R-T [place]: [id number] - 33 - 52 degrees IMPRESSION: UNCERTAIN REGULAR RHYTHM, probably junctional POSSIBLE LATERAL MYOCARDIAL INFARCTION , OF INDETERMINATE AGE [30 ms Q WAVE IN I/aVL/V5/V6] ABNORMAL ECG NO CHANGE FROM PREVIOUS TRACING NOTED Electronically Signed By: John Dominguez MD Transthoracic Echo (TTE) Complete W Doppler/CF Result Date: 07/18/2023 Narrative: [address] [place] [address] Echocardiogram Report Patient Name: PEBBLES LAL L : 1945 Study Date: 07/18/2023 8:50:58 AM Gender: F Tech: Location: [place] [address] Ref Provider: GIANLUCA SORIANO Height(Cm): 152 BSA: 2.39 Weight(Kg): 135.2 Quality: Adequate Order Provider: GIANLUCA SORIANO PROCEDURES: Echocardiographic Report: Transthoracic echocardiogram with complete 2D, M-Mode, and color Doppler examination. INDICATIONS: Congestive Heart Failure. Measurements: 2D/M Mode Doppler Vesta surement Value Normal Range Measurement Value Normal Range EF Teich MM 47.3 [ 55.0 - 70.0 ] percent DANIELLE Vmax 2.33 [ 2.00 - 4.00 ] cm2 LVIDd MM 6.07 [ 3.90 - 5.30 ] cm AV Mean PG 11 [ 2 - 4 ] mmHg LVIDs MM 4.60 [ 2.30 - 3.90 ] cm AV Peak Morales 1.48 [ <= 0.02 ] m/s LVPWd MM 0.87 [ 0.60 - 1.00 ] cmAV VTI 25.96 cm IVSd MM 0.99 [ 0.60 - 0.90 ] cm LVOT Diam 2.18 [ 1.70 - 2.10 ] cm LA Dimension MM 5.15 [ 2.70 - 3.80 ] cm LVOT Peak Morales 0.92 [ <= 0.01 ] m/s AoR Diam 2D 2.83 [ 2.60 - 3.70 ] cm LVOT VTI 16.52 [ 20.00 - 30.00 ] cm AoR Diam MM 3.29 [ 2.60 - 3.70 ] cm MV Mean PG 2 [ <= 5 ] mmHg PV Peak Morales 0.77 m/s TR Peak Morales 3.43 [ <= 0.03 ] m/s TR Peak PG 47 mmHg RVSP 57.00 [ 10.00 - 36.00 ] mmHg PA Pressure 10.00 [ 10.00 - 36.00 ] mmHg Measurement Value Normal Range Measurement Value Normal Range 2D/M Mode Doppler - FINDINGS: Atrial Septum: Normal atrial septum. Left Ventricle: Irregular rhythm. Mild concentric left ventricular hypertrophy. Moderate global left ventricular systolic dysfunction. Ejection fraction is visually estimated at 35 to 40 %. 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 Left Atrium: There is mild enlargement of left atrium. Right Ventricle: Normal right ventricular size. Right Atrium: The right atrium is normal in size. Aortic Valve: Normal structure of the aortic valve. Mitral Valve: Mild mitral annular calcification. Mild to moderate mitral valve regurgitation. Pulmonic Valve: Normal structure of the pulmonic valve. Tricuspid Valve: Normal structure of the tricuspid valve. Moderate pulmonary hypertension based on right ventricular systolic pressure. Estimated peak RVSP is 57 to 61 mmHg. Trivial regurgitation in the tricuspid valve. Pericardium: Normal pericardium with no significant pericardial effusion. Aorta: Normal aortic root. IVC: Normal size and normal respiratory collapse consistent with normal right atrial pressure (<5 mmHg). CONCLUSIONS: Irregular rhythm. Mild concentric left ventricular hypertrophy. Moderate global left ventricular systolic dysfunction. Ejection fraction is visually estimated at 35 to 40 %. 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 There is mild enlargement of left atrium. Mild mitral annular calcification. Mild to moderate mitral valve regurgitation. Normal structure of the aortic valve. Normal structure of thetricuspid valve. Moderate pulmonary hypertension based on right ventricular systolic pressure. Estimated peak RVSP is 57 to 61 mmHg. Trivial regurgitation in the tricuspid valve. Electronically Signed By: Dr Roly Husain 2023-07-18 10:07:11 CONCRETE TESTER XR CHEST 1 VIEW PORTABLE Result Date: 07/16/2023 Narrative: EXAM DESCRIPTION: XR CHEST 1 VIEW REASON FOR STUDY: cough Pt presents [facility] with nausea vomiting diarrhea spo2 89% RA TECHNIQUE: 1 radiographic view(s) of the chest. COMPARISON: 04/14/2019 FINDINGS: Stable cardiomegaly. Poor inspiratory result with bibasilar discoid atelectasis. Mild pulmonary vascular congestion. No airspace consolidation. No pneumothorax. IMPRESSION: Cardiomegaly and mild pulmonary vascular congestion. THIS IS AN ELECTRONICALLY VERIFIED FINAL REPORT 0:43 PM - Electronically signed by Pawan Mata M.D. KT: CAMILO Report ID: [id number] Reading Location: [place] [address] Current Facility-Administered Medications Medication Dose Route Frequency Provider Last Rate Last Admin acetaminophen (TYLENOL) tablet 650 mg 650 mg oral Q4H PRN Maciel Jean MD 650 mg at 07/22/23 0758 albuterol 2.5 mg /3 mL (0.083 %) nebulizer solution 2.5 mg 2.5 mg nebulization Q4H PRN (RT) Joycelyn Moseley MD 2.5 mg at 07/20/23 193 amiodarone (PACERONE) tablet 200 mg 200 mg oral BID Roly Husain MD 200 mg at 07/22/232024 [START ON 08/02/2023] amiodarone (PACERONE) tablet 200 mg 200 mg oral Daily Roly Husain MD apixaban (ELIQUIS) tablet 2.5 mg 2.5 mg oral Q12H SAL Maciel Jean MD 2.5 mg at 07/22/232024 buPROPion SR (WELLBUTRIN SR) 12 hour tablet 150 mg 150 mg oral BID Maciel Jean MD 150 mg at 07/22/232024 carvediloL (COREG) tablet 3.125 mg 3.125 mg oral BID with meals (bkfst, dinner) Roly Husain MD 3.125 mg at 07/22/23 1722 famotidine (PEPCID) tablet 20 mg 20 mg oral Daily Maciel Jean MD 20 mg at 07/22/23 0758 FLUoxetine (PROzac) capsule 40 mg 40 mg oral Daily Maciel Jean MD 40 mg at 07/22/23 0757 furosemide (LASIX) 10 mg/mL injection 60 mg 60 mg intravenous Once Karen Zambrano MD HYDROcodone-acetaminophen (NORCO) 5-325 mg per tablet 1 tablet 1 tablet oral Q4H PRN Maciel Jean MD 1 tablet at 07/20/23211 influenza quadrivalent [id number] (FLUZONE HIGH DOSE) 240 mcg/0.7 mL vaccine (HIGH DOSE age 65 yearsand up) 0.7 mL 0.7 mL intramuscular During hospitalization Maciel Jean MD miconazole 2 % powder topical BID Maciel Jean MD Given at 07/22/232024 ondansetron (ZOFRAN) injection 4 mg 4 mg intravenous Q4H PRN Maciel Jean MD 4 mg at 07/18/232258 psyllium (aspartame) SF (METAMUCIL SF) 3.4 gram packet 1 packet 1 packet oral Nightly Maciel Jean MD 1 packet at 07/19/232046 sacubitriL-valsartan (ENTRESTO) 24-26 mg tablet 1 tablet 1 tablet oral BID Roly Husain MD 1 tablet at 07/22/232024 sodium chloride 0.9% flush 5-10 mL 5-10 mL intra-catheter Q12H SAL Maciel Jean MD 10 mL at 07/22/232024 sodium chloride 0.9% flush 5-20 mL 5-20 mL intra-catheter PRN Maciel Jean MD spironolactone (ALDACTONE) tablet 25 mg 25 mg oral Daily Roly Husain MD A/P: 1. Takotsubo cardiomyopathy, continue Coreg, Entresto, spironolactone, diuresis. Patient continues to be severely weak, unable to independently sit up or ambulate. She sleeps all day long. Will give 1 more dose of Lasix 60 mg. Per I&O pressure diuresed-1000 cc yesterday. Discussed the management with Dr. Husain today 2. Hyponatremia is corrected. Most likely positive affect of diuresis. Sodium was 131 now it is 135. 3. New onset atrial fibrillation, heart rate is being controlled with loading dose of amiodarone, continue apixaban, Coreg. 4. Hematuria, patient does have indwelling Stafford catheter placement this admission. Most likely associated with anticoagulation and probably some trauma. Monitoring H&H. So far hemoglobin is 13.1. Will see if the Stafford catheter starts draining clear urine by tomorrow and then will make a decision about anticoagulation. MDM moderate Principal Problem: Vomiting and diarrhea Active Problems: Class 3 severe obesity due to excess calories with serious comorbidity and body mass index (BMI) of50.0 to 59.9 in adult (HCC) Acquired hypothyroidism NSTEMI (non-ST elevated myocardial infarction) (CMS/HCC) (HCC) Takotsubo cardiomyopathy Mitral regurgitation New onset atrial fibrillation (CMS/HCC) (HCC) Resolved Problems: No resolved hospital problems. Voice recognition software [employer] Direct was used dictate and transcribe this document. Photogrammetric Surveyor variances may occur. Despite proofreading, typographical errors may occur. Karen Zambrano MD 07/23/2023 8:14 AM RETE TESTER * Roly Husain MD - 07/23/2023 8:08 AM CST Cardiology Progress Note 07/23/23 Chief complaint: Shortness of breath Symptoms: Patient was s sleeping soundly, so I did not wake her up. I discussed cardiac issues withDr. Zambrano in person Vital Signs: Vitals: 07/22/23 2128 07/23/23 0025 07/23/23 0238 07/23/23 0329 BP: 119/65 122/69 123/67 BP Location: Left arm Left arm Left arm Patient Position: Lying Lying Pulse: 72 71 72 Resp: 18 20 20 Temp: 36 ??C (96.8 ??F) (!) 35.9 ??C (96.7 ??F) 36.2 ??C (97.1 ??F) TempSrc: Temporal Temporal Temporal SpO2: 90% (!) 89% 95% Weight: (!) 138.9 kg (306 lb 3.5 oz) Height: Intake/Output Summary (Last 24 hours) at 07/23/2023 0808 Last data filed at 07/22/2023 1430 Gross per 24 hour Intake 0 ml Output 500 ml Net -500 ml Wt Readings from Last 3 Encounters: 07/23/23 (!) 138.9 kg (306 lb 3.5 oz) 03/28/23 131.1 kg (289 lb) 02/20/23 131.1 kg (289 lb) Temp Min: 35.9 ??C (96.7 ??F) Max: 36.7 ??C (98 ??F) Pulse Min: 71 Max: 73 BP Min: 119/65 Max: 139/82 Resp Min: 16 Max: 26 SpO2 Min: 89 % Max: 96 % \\ Current Medications: Current Facility-Administered Medications Medication Dose Route Frequency Provider Last Rate Last Admin acetaminophen (TYLENOL) tablet 650 mg 650 mg oral Q4H PRN Maciel Jean MD buPROPion SR (WELLBUTRIN SR) 12 hour tablet 150 mg 150 mg oral BID Maciel Jean MD 150 mg at 07/18/23 0840 cefTRIAXone (ROCEPHIN) 1,000 mg/10 mL in sterile water (premix) 1,000 mg 1,000 mg intravenous DailySilvia Villafana MD 1,000 mg at 07/18/23 0841 dextrose 5% and sodium chloride 0.45% infusion (premix) 100 mL/hr intravenous Continuous Maciel Jean MD 100 mL/hr at 07/18/23 0841 100 mL/hr at 07/18/23 0841 enoxaparin (LOVENOX) syringe 40 mg 40 mg subcutaneous Daily-2100 Maciel Jean MD 40 mg at 07/17/23 220 famotidine (PEPCID) injection 20 mg 20 mg intravenous Q24H SAL Maciel Jean MD 20 mg at 840 FLUoxetine (PROzac) capsule 40 mg 40 mg oral Daily Maciel Jean MD 40 mg at 07/18/23 0840 HYDROcodone-acetaminophen (NORCO) 5-325 mg per tablet 1 tablet 1 tablet oral Q4H PRN Maciel Jean MD 1 tablet at 07/18/23 0520 influenza quadrivalent [id number] (FLUZONE HIGH DOSE) 240 mcg/0.7 mL vaccine (HIGH DOSE age 65 yearsand up) 0.7 mL 0.7 mL intramuscular During hospitalization Maciel Jean MD miconazole 2 % powder topical BID Maciel Jean MD Given at 07/18/23 0852 ondansetron (ZOFRAN) injection 4 mg 4 mg intravenous Q4H PRN Maciel Jean MD 4 mg at 07/18/23 0926 psyllium (aspartame) SF (METAMUCIL SF) 3.4 gram packet 1 packet 1 packet oral Nightly Maciel Jean MD Labs: Recent Labs Lab Units 07/23/23 0634 07/23/23 0238 07/22/23 0514 07/21/23 0630 07/20/23 0405 07/19/23 0417 SODIUM mmol/L 135 -- 134* 131* 134* 133* POTASSIUM PLASMA mmol/L 4.2 -- 3.7 3.9 3.6 3.6 CHLORIDE mmol/L 96* -- 95* 94* 96* 95* CO2 mmol/L 31 -- 28 27 29 24 BUN SERUM mg/dL 24 -- 25 25 22 20 CREATININE mg/dL 0.70 -- 0.75 0.75 0.72 0.77 OXG-CPA-SPYZZGR mL/min/1.73 m2 90 -- 82 82 87 80 GLUCOSE mg/dL 98 -- 100 105 106 101 POC GLUCOSE MONITOR -- < > -- -- -- -- CALCIUM mg/dL 8.7 -- 8.8 9.4 9.2 9.0 ALBUMIN g/dL -- -- -- 2.9* 3.1* 3.0* PHOSPHORUS PLASMA mg/dL 2.6 -- 2.6 2.3 2.7 2.4 < > = values in this interval not displayed. Recent Labs Lab Units 07/21/23 0630 07/20/23 0405 07/19/23 0417 ALK PHOS Units/L 113 122 117 BILIRUBIN TOTAL mg/dL 0.5 0.4 0.3 TOTAL PROTEIN g/dL 6.8 7.1 7.1 ALT Units/L 16 18 15 AST Units/L 16 19 23 Recent Labs Lab Units 07/23/23 0634 07/22/23 0514 07/21/23 0630 WBC K/cumm 13.0* 13.0* 12.5* HEMOGLOBIN g/dL 13.1 13.1 12.7 HEMATOCRIT % 39.7 38.3 38.6 PLATELETS K/cumm 378 379 406* Recent Labs Lab Units 07/17/23 0254 INR 1.26* Lab Results Component Value Date TSH 1.45 07/17/2023 Lab Results Component Value Date CHOL 150 03/21/2023 TRIG 61 03/21/2023 HDL 76 03/21/2023 LDLCALC 62 03/21/2023 No results found for: TROPONINT Telemetry: Cardiac Rhythm: Atrial flutter (07/22/23 0815) Cardiology Testing: ProBNP: EKG: Echocardiogram: Stress Test: Cardiac Cath: Impression: Elevated cardiac troponins likely due to multiple etiologies: underlying UTI/sepsis and also acute kidney injury. Now also has takotsubo cardiomyopathy with normal coronaries on recent cardiac catheterization. Moderate to severe LV systolic dysfunction noted. So far -1,087 mL. On 1 L saturating 92%. 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 by [facility] 20 July 2023. Atrial fibrillation, cardioverted on 20 July 2023 to atrial flutter. Already on Eliquis 2.5 mg p.o. b.i.d. and we should continue. Chronic pain syndrome. Hypertension Plan: Continue with front loading a p.o. amiodarone. Wearable defibrillator on discharge. Increase activities with physical therapy. Follow-up with me 17 August 2023. Add spironolactone 25 mg daily. CC: Tristan Watson MD Sargsyan, Narine, MD RETE TESTER * Karen Zambrano MD - 07/22/2023 1:06 PM CST General Medicine Daily Progress SUBJECTIVE Chief complaint of low energy, takotsubo cardiomyopathy. Interval History: The patient is unable to get out of bed OBJECTIVE Vitals: 24hr Min/Max: Temp Min: 36.1 ??C (96.9 ??F) Max: 36.4 ??C (97.6 ??F) Pulse Min: 67 Max: 95 BP Min: 99/66 Max: 122/66 Resp Min: 16 Max: 21 SpO2 Min: 92 % Max: 100 % Most Recent : Vitals: 07/22/23 1103 BP: 120/70 Pulse: 72 Resp: 16 Temp: 36.1 ??C (96.9 ??F) SpO2: 95% I/O last 2 completed shifts: In: 240 [P.O.:240] Out: 800 [Urine:800] I/O this shift: In: - Out: 100 [Urine:100] Physical Exam: Eyes: EOMI, LINDA, sclare non icteric Neck: supple, no nuchal ridigity, no gross carotid bruits appreciated Pharynx: No gross oral lesion, tongue midline, mucosa moist Lungs diminished bilateral Heart: [id number], no significant murmur or gallop Abd: +BS, Non Tender, Non distended, No gross hepatomegaly Lower Ext: No gross edema, pedal artery pulses are palpable bilaterally Neuro: No new deficits appreciated Musculoskeletal: no gross joint erythema, edema, tenderness Skin: No new change Lab/Current Medication Review: Recent Results (from the past 24 hour(s)) Phosphorus Collection Time: 07/22/23 5:14 AM Result Value Ref Range Phosphorus, pl 2.6 2.3 - 4.5 mg/dL CBC without differential Collection Time: 07/22/23 5:14 AM Result Value Ref Range WBC 13.0 (H) 3.8 - 9.9 K/cumm Hgb 13.1 11.9 - 15.5 g/dL Hct 38.3 35.6 - 45.5 % Plt 379 150 - 400 K/cumm MPV 8.9 (L) 9.1 - 12.3 fL RBC 4.07 3.90 - 5.20 M/cumm MCV 94.1 81.3 - 96.4 fL MCH 32.2 27.1 - 33.3 pg MCHC 34.2 32.3 - 35.7 g/dL RDW CV 13.7 11.1 - 14.9 % RDW SD 46.8 35.7 - 48.1 fL NRBC abs 0.13 (H) 0.00 - 0.01 K/cumm Basic metabolic panel Collection Time: 07/22/23 5:14 AM Result Value Ref Range Sodium 134 (L) 135 - 145 mmol/L Potassium, pl 3.7 3.3 - 4.9 mmol/L Chloride 95 (L) 97 - 110 mmol/L CO2 28 22 - 32 mmol/L Anion gap 11 2 - 15 mmol/L BUN 25 6 - 25 mg/dL Creatinine 0.75 0.60 - 1.10 mg/dL Glucose 100 70 - 199 mg/dL Calcium 8.8 8.5 - 10.3 mg/dL eGFR Collection Time: 07/22/23 5:14 AM Result Value Ref Range eGFR 82 mL/min/1.73 m2 Transesophageal Echocardiogram ([facility]) W Possible Cardioversion Result Date: 07/20/2023 Narrative: Daniela Job ID: [id number] Daniela Document ID: [id number] Dictated date/time: [id number] NAME OF PROCEDURE 1. Transesophageal echocardiogram. 2. Cardioversion of atrial fibrillation. PROCEDURE The patient was kept in ICU bed 7. Consent form was signed. She was not allergic to any medication we are going to be giving her. Sedation time was about 25 minutes. Patient received in small increments 1 mg IV Versed and 50 mcg IV fentanyl. Topical anesthetics were given to the retropharynx twice. When well sedated, the probe went down to the distal esophagus very easily. FINDINGS The LV function was quite diminished with apical akinesis. Ejection fraction estimated at 25% to 30% at best. No thrombus in the left ventricle. Mitral valve leaflets opening and closing well with evidence of moderate to severe mitral regurgitation. Left atrium is definitely moderately dilated. Left atrial appendage is well seen and has no thrombus. Left atrial appendage velocity was diminished at 0.4 m/sec as expected from atrial fibrillation. Tricuspid valve leaflets opening and closing well with evidence of mild to moderate tricuspid regurgitation. The pulmonic valve is opening and closing well with pulmonic insufficiency. Aortic valve is tricuspid in nature and without any regurgitation orvegetation. On the way out, no hypermobile elements noted in the aortic arch. CONCLUSION 1. No hypermobile elements in aortic arch. 2. No thrombus left ventricular apex or left atrial appendage. 3. Moderately dilated left atrium. 4. Severely diminished global LV function with apical akinesis. LVEF of 25% to 30%. 5. Pulmonic insufficiency. 6. Tricuspid regurgitation, mild to moderate. 7. Mitral regurgitation, moderate to severe. 8. No clot in left atrial appendage with a low left atrial appendage velocity of 0.4 m/sec. After making sure patient continues to be well sedated, a 360 joule synchronized biphasic shock converted her from an irregular atrial fibrillation rhythm to regular rhythm that looks to be now atrial flutter. The patient will be continued on p.o. amiodarone after discontinuation of IV amiodarone. We may try to cardiovert her out of atrial flutter in a few weeks. Job ID/Internal Job ID: [id number] ECG 12 lead Result Date: 07/20/2023 Narrative: Vent Rate: 70 bpm RR Interval: 846 msec WV Interval: 0 msec QRS Duration: 154 msec QT Interval: 465 msec QTC Interval: 487 msec P-R-T Stinnett: [id number] - 69 - 195 degrees IMPRESSION: ATRIAL FLUTTER LEFT BUNDLE BRANCH BLOCK [120+ ms QRS DURATION, 80+ ms Q/S IN V1/V2, 85+ ms R IN I/aVL/V5/V6] ABNORMAL ECG Electronically Signed By: John Dominguez MD XR Chest 1 View Result Date: 07/19/2023 Narrative: EXAM DESCRIPTION: XR CHEST 1 VIEW REASON FOR STUDY: PICC placement. TECHNIQUE: Frontal radiographic view(s) of the chest. COMPARISON: Chest radiograph 07/16/2023 and 04/14/2019. FINDINGS: LUNGS: No focal consolidation, noting redemonstration of diffuse coarsened pulmonary markings. No large pleural effusion. No pneumothorax. HEART/MEDIASTINUM: Stable cardiomediastinal silhouette, noting mild cardiomegaly. LINES/TUBES: Interval placement of right upper extremity PICC with tip termination projecting over the superior vena cava. BONES: No acute osseous abnormality. IMPRESSION: Interval placement of right upper extremity PICC with tip termination projecting over the superior vena cava. No radiographic evidence of acute cardiopulmonary process. THIS IS AN ELECTRONICALLY VERIFIED FINAL REPORT 07/19/2023 2:14 PM - Electronically signed by Blaze Schwartz M.D. DYANA: DYANA Report ID: [id number] Reading Location: [id number] Cardiac Catheterization Result Date: 07/19/2023 Narrative: [facility] Job ID: [id number] [facility] Document ID: [id number] Dictated date/time: [id number] CARDIAC CATHETERIZATION A 78-year-old with obesity and shortness of breath. Echocardiogram showed severe segmental LV dysfunction. She is now having chest pain. She was referred for catheterization. INDICATION FOR PROCEDURE Takotsubo cardiomyopathy. PROCEDURE PERFORMED Left heart catheterization, selective coronary angiography, left ventriculography. After obtaining informed consent, patient was brought to the cardiac computer lab para professional. She was prepped and draped in the usual sterile fashion. Conscious sedation was administered by the computer lab para professional staff under my supervision. A total of 0.5 mg Verse d and 25 mcg of fentanyl were given. See procedure log for further details. Total sedation time was16 minutes. A 6-Ku[place]i sheath was inserted in the right radial artery. Combination of Angiomax, lidocaine, and nitroglycerin was administered intra-arterially. The selective coronary cannulation was performed using standard Eddy catheters. Left ventriculography was performed in the MATA projection using pigtail followed by left heart pullback. At the end of procedure, the arterial sheath was removed and hemostasis achieved by applying TR band to the right wrist. FINDINGS: HEMODYNAMICS: LV pressure was 120/25, ascending aortic pressure 120/80. There was significant respiratory variations of her pressures. LEFT VENTRICULOGRAPHY: This showed akinesis of the anterolateral apical and diaphragmatic segment. The basal segments were reasonably well. Overall ejection fraction 20% to 25%. There was moderate +2 mitral regurgitation. RIGHT CORONARY ARTERY: The right coronary artery was a large dominant vessel and gives distally medium-sized posterior descending and several posterolateral branches. The right coronary system was angiographically normal. LEFT CORONARY ARTERY: The left main coronary artery, the circumflex, the obtuse marginal branches were angiographically normal. The left anterior descending was also patent. There was possible muscle bridge in the mid segment. IMPRESSION 1. Angiographically no significant obstructive coronary artery disease. 2. Segmental left ventricular systolic dysfunction consistent with Takotsubo cardiomyopathy. 3. Moderate mitral regurgitation. 4. Elevated left ventricular diastolic pressure. CARE PLAN Medical therapy per primary team. John Dominguez MD Job ID/Internal Job ID: [id number] ECG 12 lead Result Date: 07/19/2023 Narrative: Vent Rate: 91 bpm RR Interval: 655 msec WV Interval: 0 msec QRS Duration: 123 msec QT Interval: 420 msec QTC Interval: 469 msec P-R-T [place]ett: [id number] - 65 - 208 degrees IMPRESSION: ATRIAL FIBRILLATION MODERATE INTRAVENTRICULAR CONDUCTION DELAY [110+ ms QRS DURATION] ST DEVIATION AND MODERATET-WAVE ABNORMALITY, CONSIDER ANTEROLATERAL ISCHEMIA [-0.1+ mV T-WAVE IN V3-V6] ST DEVIATION AND MODERATE T-WAVE ABNORMALITY, CONSIDER INFERIOR ISCHEMIA [-0.1+ mV T-WAVE IN II/aVF] ABNORMAL ECG Compared to prior EKG, anterolateral T- wave inversions are new QT interval has increased Electronically Signed By: John Dominguez MD ECG 12 lead Result Date: 07/18/2023 Narrative: Vent Rate: 100 bpm RR Interval: 597 msec WV Interval: 0 msec QRS Duration: 128 msec QT Interval: 355 msec QTC Interval: 412 msec P-R-T [place]ett: [id number] - 33 - 56 degrees IMPRESSION: UNCERTAIN REGULAR RHYTHM, probably junctional POSSIBLE LATERAL MYOCARDIAL INFARCTION , OF INDETERMINATE AGE [30ms Q WAVE IN I/aVL/V5/V6] CRITICAL TEST RESULT Compared to prior EKG, P-waves are not present Electronically Signed By: John Dominguez MD ECG 12 lead Result Date: 07/18/2023 Narrative: Vent Rate: 85 bpm RR Interval: 700 msec WV Interval: 0 msec QRS Duration: 123 msec QT Interval: 403 msec QTC Interval: 445 msec P-R-T [place]: [id number] - 33 - 52 degrees IMPRESSION: UNCERTAIN REGULAR RHYTHM, probably junctional POSSIBLE LATERAL MYOCARDIAL INFARCTION , OF INDETERMINATE AGE [30 ms Q WAVE IN I/aVL/V5/V6] ABNORMAL ECG NO CHANGE FROM PREVIOUS TRACING NOTED Electronically Signed By: John Dominguez MD Transthoracic Echo (TTE) Complete W Doppler/CF Result Date: 07/18/2023 Narrative: [place] [address] Echocardiogram Report Patient Name: PEBBLES LAL L : 1945 Study Date: 07/18/2023 8:50:58 AM Gender: F Tech: Location: [place] [address] Ref Provider: GIANLUCA SORIANO Height(Cm): 152 BSA: 2.39 Weight(Kg): 135.2 Quality: Adequate Order Provider: GRACIELA SORIANOOPROCEDURES: Echocardiographic Report: Transthoracic echocardiogram with complete 2D, M-Mode, and color Doppler examination. INDICATIONS: Congestive Heart Failure. Measurements: 2D/M Mode Doppler Measu rement Value Normal Range Measurement Value Normal Range EF Teich MM 47.3 [ 55.0 - 70.0 ] percent DANIELLE Vmax 2.33 [ 2.00 - 4.00 ] cm2 LVIDd MM 6.07 [ 3.90 - 5.30 ] cm AV Mean PG 11 [ 2 - 4 ] mmHg LVIDsMM 4.60 [ 2.30 - 3.90 ] cm AV Peak Morales 1.48 [ <= 0.02 ] m/s LVPWd MM 0.87 [ 0.60 - 1.00 ] cm AV VTI 25.96 cm IVSd MM 0.99 [ 0.60 - 0.90 ] cm LVOT Diam 2.18 [ 1.70 - 2.10 ] cm LA Dimension MM 5.15 [ 2.70 - 3.80 ] cm LVOT Peak Morales 0.92 [ <= 0.01 ] m/s AoR Diam 2D 2.83 [ 2.60 - 3.70 ] cm LVOT VTI 16.52 [ 20.00 - 30.00 ] cm AoR Diam MM 3.29 [ 2.60 - 3.70 ] cm MV Mean PG 2 [ <= 5 ] mmHg PV Peak Morales 0.77 m/s TR Peak Morales 3.43 [ <= 0.03 ] m/s TR Peak PG 47 mmHg RVSP 57.00 [ 10.00 - 36.00 ]mmHg PA Pressure 10.00 [ 10.00 - 36.00 ] mmHg Measurement Value Normal Range Measurement Value Normal Range 2D/M Mode Doppler - FINDINGS: Atrial Septum: Normal atrial septum. Left Ventricle: Irregular rhythm. Mild concentric left ventricular hypertrophy. Moderate global left ventricular systolic dysfunction. Ejection fraction is visually estimated at 35 to 40 %. 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 Left Atrium: There is mild enlargement of left atrium. Right Ventricle: Normal right ventricular size. Right Atrium: The right atrium is normal in size. Aortic Valve: Normal structure of the aortic valve. Mitral Valve: Mild mitral annular calcification. Mild to moderate mitral valve regurgitation. Pulmonic Valve: Normal structure of the pulmonic valve. Tricuspid Valve: Normal structure of the tricuspid valve. Moderate pulmonary hypertension based on right ventricular systolic pressure. Estimated peak RVSP is 57 to 61 mmHg. Trivial regurgitation in the tricuspid valve. Pericardium: Normal pericardium with no significant pericardial effusion. Aorta: Normal aortic root. IVC: Normal size and normal respiratory collapse consistent with normal right atrial pressure (<5 mmHg). CONCLUSIONS: Irregular rhythm. Mild concentric left ventricular hypertrophy. Moderate global left ventricular systolic dysfunction. Ejection fraction is visuallyestimated at 35 to 40 %. 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 There is mild enlargement of left atrium. Mild mitral annular calcification. Mild to moderate mitral valve regurgitation. Normal structure of the aortic valve. Normal structure of the tricuspid valve. Moderate pulmonary hypertension based on right ventricular systolic pressure. Estimated peak RVSP is 57 to 61 mmHg. Trivial regurgitation in the tricuspid valve. Electronically Signed By: Dr Roly Husain 2023-07-18 10:07:11 CONCRETE TESTER XR CHEST 1 VIEW PORTABLE Result Date: 07/16/2023 Narrative: EXAM DESCRIPTION: XR CHEST 1 VIEW REASON FOR STUDY: cough Pt presents [facility] with nausea vomiting diarrhea spo2 89% RA TECHNIQUE: 1 radiographic view(s) of the chest. COMPARISON: 04/14/2019 FINDINGS: Stable cardiomegaly. Poor inspiratory result with bibasilar discoid atelectasis. Mild pulmonary vascular congestion. No airspace consolidation. No pneumothorax. IMPRESSION: Cardiomegaly and mild pulmonary vascular congestion. THIS IS AN ELECTRONICALLY VERIFIED FINAL REPORT 0:43 PM - Electronically signed by Pawan Mata M.D. KT: CAMILO Report ID: [id number] Reading Location: [id number] Current Facility-Administered Medications Medication Dose Route Frequency Provider Last Rate Last Admin acetaminophen (TYLENOL) tablet 650 mg 650 mg oral Q4H PRN Maciel Jean MD 650 mg at 07/22/23 0758 albuterol 2.5 mg /3 mL (0.083 %) nebulizer solution 2.5 mg 2.5 mg nebulization Q4H PRN (RT) Joycelyn Moseley MD 2.5 mg at 07/20/231931 amiodarone (PACERONE) tablet 200 mg 200 mg oral BID Roly Husain MD 200 mg at 07/22/23 0758 [START ON 08/02/2023] amiodarone (PACERONE) tablet 200 mg 200 mg oral Daily Roly Husain MD apixaban (ELIQUIS) tablet 2.5 mg 2.5 mg oral Q12H [facility] Maciel Jean MD 2.5 mg at 07/22/23 0758 buPROPion SR (WELLBUTRIN SR) 12 hour tablet 150 mg 150 mg oral BID Maciel Jean MD 150 mg at 07/22/23 0758 carvediloL (COREG) tablet 3.125 mg 3.125 mg oral BID with meals (bkfst, dinner) Roly Husain MD 3.125 mg at 07/22/23 0800 famotidine (PEPCID) tablet 20 mg 20 mg oral Daily Maciel Jean MD 20 mg at 07/22/23 0758 FLUoxetine (PROzac) capsule 40 mg 40 mg oral Daily Maciel Jean MD 40 mg at 07/22/23 0757 HYDROcodone-acetaminophen (NORCO) 5-325 mg per tablet 1 tablet 1 tablet oral Q4H PRN Maciel Jean MD 1 tablet at 07/20/23 0212 influenza quadrivalent [id number] (FLUZONE HIGH DOSE) 240 mcg/0.7 mL vaccine (HIGH DOSE age 65 yearsand up) 0.7 mL 0.7 mL intramuscular During hospitalization Maciel Jean MD miconazole 2 % powder topical BID Maciel Jean MD Given at 07/22/23 0758 ondansetron (ZOFRAN) injection 4 mg 4 mg intravenous Q4H PRN Maciel Jean MD 4 mg at 07/18/23 2259 psyllium (aspartame) SF (METAMUCIL SF) 3.4 gram packet 1 packet 1 packet oral Nightly Maciel Jean MD 1 packet at 07/19/23 204 sacubitriL-valsartan (ENTRESTO) 24-26 mg tablet 1 tablet 1 tablet oral BID Roly Husain MD 1 tablet at 07/22/23 0801 sodium chloride 0.9% flush 5-10 mL 5-10 mL intra-catheter Q12H SAL Maciel Jean MD 10 mL at 07/22/23 0759 sodium chloride 0.9% flush 5-20 mL 5-20 mL intra-catheter PRN Maciel Jean MD A/P: 1. Takotsubo cardiomyopathy, present on admission, giving 60 mg of Lasix today again, after discussing with Dr. Husain. I believe the patient will need more diuresis than this. So far monitoring the creatinine is within normal limits. Patient has generalized weakness, unable to move in the bed even,unable to sit up in the bed. She is somnolent. Continue Coreg, Entresto 2. Suspect metabolic encephalopathy she is somnolent, falling asleep while talking to me. Ordering ABG for further evaluation. We may need nocturnal sleep study while she is in the hospital. I will personally follow with ABG and possibly start BiPAP if indicated. I talked to the patient's and recommended outpatient sleep study. 3. New onset atrial fibrillation, heart rate is under control, 70 beats per minute. Continuing amiodarone loading dose, a low dose of Eliquis, Coreg 3.125 mg p.o. b.i.d. 4. Hyponatremia, sodium level is improving with diuresis most likely hyponatremia is due to volume overload due to takotsubo cardiomyopathy. Monitoring closely 5. Morbid obesity with BMI of 60.67, patient will definitely benefit from weight loss and lifestylemodification Addendum ABG came back showing hypoxemia and mild hypercapnia. Will ask respiratory therapy to start BiPAP. Recommend nocturnal oximetry evaluation. Strongly recommending sleep apnea evaluation after discharge. MDM moderate Principal Problem: Vomiting and diarrhea Active Problems: Class 3 severe obesity due to excess calories with serious comorbidity and body mass index (BMI) of50.0 to 59.9 in adult (HCC) Acquired hypothyroidism NSTEMI (non-ST elevated myocardial infarction) (CMS/HCC) ([facility]) Takotsubo cardiomyopathy Mitral regurgitation New onset atrial fibrillation (CMS/HCC) ([facility]) Resolved Problems: No resolved hospital problems. Voice recognition software [employer] Direct was used dictate and transcribe this document. Photogrammetric Surveyor variances may occur. Despite proofreading, typographical errors may occur. Karen Zambrano MD 07/22/2023 1:06 PM RETE TESTER RETE TESTER * Becca Fernandez, PT - 07/22/2023 10:11 AM CST Physical Therapy 07/22/23 1000 PT Last Visit PT Missed Visit Reason Patient declined Rehab Only - Missed Reasons - All Disciplines Patient request (checked on at 0830 and sleeping heavily, 1000 pt declined PT reporting too tired) Becca Fernandez, PT RETE TESTER * Roly Husain MD - 07/22/2023 7:31 AM CST Cardiology Progress Note 07/22/23 Chief complaint: Shortness of breath Symptoms: Patient was found sleeping on 1 L. She was saturating 92%. When awakened, she denied any problems. Vital Signs: Vitals: 07/22/23 0400 07/22/23 0600 07/22/23 0630 07/22/23 0724 BP: 106/63 BP Location: Left arm Patient Position: Lying;HOB 30 degrees Pulse: 72 72 72 Resp: 18 Temp: 36.2 ??C (97.2 ??F) TempSrc: Temporal SpO2: 92% Weight: (!) 140.9 kg (310 lb 10.1 oz) Height: Intake/Output Summary (Last 24 hours) at 07/22/2023 0731 Last data filed at 07/22/2023 0321 Gross per 24 hour Intake 240 ml Output 800 ml Net -560 ml Wt Readings from Last 3 Encounters: 07/22/23 (!) 140.9 kg (310 lb 10.1 oz) 03/28/23 131.1 kg (289 lb) 09/20/22 131.1 kg (289 lb) Temp Min: 36.1 ??C (96.9 ??F) Max: 36.4 ??C (97.6 ??F) Pulse Min: 67 Max: 122 BP Min: 99/66 Max: 122/66 Resp Min: 16 Max: 21 SpO2 Min: 92 % Max: 100 % \\ Current Medications: Current Facility-Administered Medications Medication Dose Route Frequency Provider Last Rate Last Admin acetaminophen (TYLENOL) tablet 650 mg 650 mg oral Q4H PRN Maciel Jean MD buPROPion SR (WELLBUTRIN SR) 12 hour tablet 150 mg 150 mg oral BID Maciel Jean MD 150 mg at 07/18/23 0840 cefTRIAXone (ROCEPHIN) 1,000 mg/10 mL in sterile water (premix) 1,000 mg 1,000 mg intravenous DailyHollandSilvia MD 1,000 mg at 07/18/23 0841 dextrose 5% and sodium chloride 0.45% infusion (premix) 100 mL/hr intravenous Continuous Maciel Jean MD 100 mL/hr at 07/18/23 0841 100 mL/hr at 07/18/23 0841 enoxaparin (LOVENOX) syringe 40 mg 40 mg subcutaneous Daily-2100 Maciel Jean MD 40 mg at 07/17/232206 famotidine (PEPCID) injection 20 mg 20 mg intravenous Q24H SAL Maciel Jean MD 20 mg at 840 FLUoxetine (PROzac) capsule 40 mg 40 mg oral Daily Maciel Jean MD 40 mg at 07/18/23 0840 HYDROcodone-acetaminophen (NORCO) 5-325 mg per tablet 1 tablet 1 tablet oral Q4H PRN Maciel Jean MD 1 tablet at 07/18/23 0520 influenza quadrivalent [id number] (FLUZONE HIGH DOSE) 240 mcg/0.7 mL vaccine (HIGH DOSE age 65 yearsand up) 0.7 mL 0.7 mL intramuscular During hospitalization Maciel Jean MD miconazole 2 % powder topical BID Maciel Jean MD Given at 07/18/23 0852 ondansetron (ZOFRAN) injection 4 mg 4 mg intravenous Q4H PRN Maciel Jean MD 4 mg at 07/18/23 0926 psyllium (aspartame) SF (METAMUCIL SF) 3.4 gram packet 1 packet 1 packet oral Nightly Maciel Jean MD Labs: Recent Labs Lab Units 07/22/23 0514 07/21/23 0630 07/20/23 0405 07/19/23 0417 SODIUM mmol/L 134* 131* 134* 133* POTASSIUM PLASMA mmol/L 3.7 3.9 3.6 3.6 CHLORIDE mmol/L 95* 94* 96* 95* CO2 mmol/L 28 27 29 24 BUN SERUM mg/dL 25 25 22 20 CREATININE mg/dL 0.75 0.75 0.72 0.77 [id number] mL/min/1.73 m2 82 82 87 80 GLUCOSE mg/dL 100 105 106 101 CALCIUM mg/dL 8.8 9.4 9.2 9.0 ALBUMIN g/dL -- 2.9* 3.1* 3.0* PHOSPHORUS PLASMA mg/dL 2.6 2.3 2.7 2.4 Recent Labs Lab Units 07/21/23 0630 07/20/23 0405 07/19/23 0417 ALK PHOS Units/L 113 122 117 BILIRUBIN TOTAL mg/dL 0.5 0.4 0.3 TOTAL PROTEIN g/dL 6.8 7.1 7.1 ALT Units/L 16 18 15 AST Units/L 16 19 23 Recent Labs Lab Units 07/22/23 0514 07/21/23 0630 07/17/23 0442 WBC K/cumm 13.0* 12.5* 17.4* HEMOGLOBIN g/dL 13.1 12.7 13.4 HEMATOCRIT % 38.3 38.6 40.1 PLATELETS K/cumm 379 406* 271 Recent Labs Lab Units 07/17/23 0254 INR 1.26* Lab Results Component Value Date TSH 1.45 07/17/2023 Lab Results Component Value Date CHOL 150 03/21/2023 TRIG 61 03/21/2023 HDL 76 03/21/2023 LDLCALC 62 03/21/2023 No results found for: TROPONINT Telemetry: Cardiac Rhythm: Atrial flutter (07/22/23 0600) Cardiology Testing: ProBNP: EKG: Echocardiogram: Stress Test: Cardiac Cath: Impression: Elevated cardiac troponins likely due to multiple etiologies: underlying UTI/sepsis and also acute kidney injury. Now also has takotsubo cardiomyopathy with normal coronaries on recent cardiac catheterization. Moderate to severe LV systolic dysfunction noted. So far-587 mL. On 1 L saturating 92%. 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 by SOP[facility] 20 July 2023. Atrial fibrillation, cardioverted on 20 July 2023 to atrial flutter. Already on Eliquis 2.5 mg p.o. b.i.d. and we should continue. Chronic pain syndrome. Hypertension Plan: Continue with front loading a p.o. amiodarone. Wearable defibrillator on discharge. Increase activities with physical therapy. One dose of IV Lasix 60 mg now. Follow-up with me 17 August 2023. CC: Tristan Watson MD Sargsyan, Narine, MD RETE TESTER * Karen Zambrano MD - 07/21/2023 4:52 PM CST General Medicine Daily Progress SUBJECTIVE Chief complaint of jeronimo Ernandez below cardiomyopathy. Interval History: Is very weak, stays in the bed, needs placement OBJECTIVE Vitals: 24hr Min/Max: Temp Min: 36 ??C (96.8 ??F) Max: 36.3 ??C (97.3 ??F) Pulse Min: 70 Max: 122 BP Min: 100/75 Max: 134/71 Resp Min: 18 Max: 21 SpO2 Min: 93 % Max: 100 % Most Recent : Vitals: 07/21/23 1600 BP: Pulse: 75 Resp: Temp: SpO2: I/O last 2 completed shifts: In: 540 [P.O.:540] Out: 685 [Urine:685] I/O this shift: In: 120 [P.O.:120] Out: 450 [Urine:450] Physical Exam: Eyes: EOMI, LINDA, sclare non icteric Neck: supple, no nuchal ridigity, no gross carotid bruits appreciated Pharynx: No gross oral lesion, tongue midline, mucosa moist Lungs diminished Heart: Irregular S1S2, no significant murmur or gallop Abd: +BS, Non Tender, Non distended, No gross hepatomegaly Lower Ext: No gross edema, pedal artery pulses are palpable bilaterally Neuro: No new deficits appreciated Musculoskeletal: no gross joint erythema, edema, tenderness Skin: No new change Lab/Current Medication Review: Recent Results (from the past 24 hour(s)) Phosphorus Collection Time: 07/21/23 6:30 AM Result Value Ref Range Phosphorus, pl 2.3 2.3 - 4.5 mg/dL Comprehensive metabolic panel Collection Time: 07/21/23 6:30 AM Result Value Ref Range Sodium 131 (L) 135 - 145 mmol/L Potassium, pl 3.9 3.3 - 4.9 mmol/L Chloride 94 (L) 97 - 110 mmol/L CO2 27 22 - 32 mmol/L Anion gap 10 2 - 15 mmol/L BUN 25 6 - 25 mg/dL Creatinine 0.75 0.60 - 1.10 mg/dL Glucose 105 70 - 199 mg/dL Calcium 9.4 8.5 - 10.3 mg/dL Bilirubin, total 0.5 0.1 - 1.2 mg/dL Protein, pl 6.8 6.5 - 8.5 g/dL Albumin 2.9 (L) 3.5 - 5.0 g/dL Alk phos 113 40 - 130 Units/L ALT 16 7 - 45 Units/L AST 16 10 - 45 Units/L eGFR Collection Time: 07/21/23 6:30 AM Result Value Ref Range eGFR 82 mL/min/1.73 m2 CBC without differential Collection Time: 07/21/23 6:30 AM Result Value Ref Range WBC 12.5 (H) 3.8 - 9.9 K/cumm Hgb 12.7 11.9 - 15.5 g/dL Hct 38.6 35.6 - 45.5 % Plt 406 (H) 150 - 400 K/cumm MPV 9.4 9.1 - 12.3 fL RBC 4.03 3.90 - 5.20 M/cumm MCV 95.8 81.3 - 96.4 fL MCH 31.5 27.1 - 33.3 pg MCHC 32.9 32.3 - 35.7 g/dL RDW CV 13.9 11.1 - 14.9 % RDW SD 49.3 (H) 35.7 - 48.1 fL NRBC abs 0.06 (H) 0.00 - 0.01 K/cumm Transesophageal Echocardiogram ([facility]) W Possible Cardioversion Result Date: 07/20/2023 Narrative: [facility] Job ID: [id number] [facility] Document ID: [id number] Dictated date/time: [id number] NAME OF PROCEDURE 1. Transesophageal echocardiogram. 2. Cardioversion of atrial fibrillation. PROCEDURE The patient was kept in ICU bed 7. Consent form was signed. She was not allergic to any medication we are going to be giving her. Sedation time was about 25 minutes. Patient received in small increments 1 mg IV Versed and 50 mcg IV fentanyl. Topical anesthetics were given to the retropharynx twice. When well sedated, the probe went down to the distal esophagus very easily. FINDINGS The LV function was quite diminished with apical akinesis. Ejection fraction estimated at 25% to 30% at best. No thrombus in the left ventricle. Mitral valve leaflets opening and closing well with evidence of moderate to severe mitral regurgitation. Left atrium is definitely moderately dilated. Left atrial appendage is well seen and has no thrombus. Left atrial appendage velocity was diminished at 0.4 m/sec as expected from atrial fibrillation. Tricuspid valve leaflets opening and closing well with evidence of mild to moderate tricuspid regurgitation. The pulmonic valve is opening and closing well with pulmonic insufficiency. Aortic valve is tricuspid in nature and without any regurgitation orvegetation. On the way out, no hypermobile elements noted in the aortic arch. CONCLUSION 1. No hypermobile elements in aortic arch. 2. No thrombus left ventricular apex or left atrial appendage. 3. Moderately dilated left atrium. 4. Severely diminished global LV function with apical akinesis. LVEF of 25% to 30%. 5. Pulmonic insufficiency. 6. Tricuspid regurgitation, mild to moderate. 7. Mitral regurgitation, moderate to severe. 8. No clot in left atrial appendage with a low left atrial appendage velocity of 0.4 m/sec. After making sure patient continues to be well sedated, a 360 joule synchronized biphasic shock converted her from an irregular atrial fibrillation rhythm to regular rhythm that looks to be now atrial flutter. The patient will be continued on p.o. amiodarone after discontinuation of IV amiodarone. We may try to cardiovert her out of atrial flutter in a few weeks. Job ID/Internal Job ID: [id number] ECG 12 lead Result Date: 07/20/2023 Narrative: Vent Rate: 70 bpm RR Interval: 846 msec WV Interval: 0 msec QRS Duration: 154 msec QT Interval: 465 msec QTC Interval: 487 msec P-R-T Stinnett: [id number] - 69 - 195 degrees IMPRESSION: ATRIAL FLUTTER LEFT BUNDLE BRANCH BLOCK [120+ ms QRS DURATION, 80+ ms Q/S IN V1/V2, 85+ ms R IN I/aVL/V5/V6] ABNORMAL ECG Electronically Signed By: John Dominguez MD XR Chest 1 View Result Date: 07/19/2023 Narrative: EXAM DESCRIPTION: XR CHEST 1 VIEW REASON FOR STUDY: PICC placement. TECHNIQUE: Frontal radiographic view(s) of the chest. COMPARISON: Chest radiograph 07/16/2023 and 04/14/2019. FINDINGS: LUNGS: No focal consolidation, noting redemonstration of diffuse coarsened pulmonary markings. No large pleural effusion. No pneumothorax. HEART/MEDIASTINUM: Stable cardiomediastinal silhouette, noting mild cardiomegaly. LINES/TUBES: Interval placement of right upper extremity PICC with tip termination projecting over the superior vena cava. BONES: No acute osseous abnormality. IMPRESSION: Interval placement of right upper extremity PICC with tip termination projecting over the superior vena cava. No radiographic evidence of acute cardiopulmonary process. THIS IS AN ELECTRONICALLY VERIFIED FINAL REPORT 07/19/2023 2:14 PM - Electronically signed by Blaze Schwartz M.D. DYANA: DYANA Report ID: [id number] Reading Location: [id number] Cardiac Catheterization Result Date: 07/19/2023 Narrative: [employer] Job ID: [id number] [employer] Document ID: [id number] Dictated date/time: [id number] CARDIAC CATHETERIZATION A 78-year-old with obesity and shortness of breath. Echocardiogram showed severe segmental LV dysfunction. She is now having chest pain. She was referred for catheterization. INDICATION FOR PROCEDURE Takotsubo cardiomyopathy. PROCEDURE PERFORMED Left heart catheterization, selective coronary angiography, left ventriculography. After obtaining informed consent, patient was brought to the cardiac computer lab para professional. She was prepped and draped in the usual sterile fashion. Conscious sedation was administered by the computer lab para professional staff under my supervision. A total of 0.5 mg Verse d and 25 mcg of fentanyl were given. See procedure log for further details. Total sedation time was16 minutes. A 6-Ku[place]i sheath was inserted in the right radial artery. Combination of Angiomax, lidocaine, and nitroglycerin was administered intra-arterially. The selective coronary cannulation was performed using standard Eddy catheters. Left ventriculography was performed in the MATA projection using pigtail followed by left heart pullback. At the end of procedure, the arterial sheath was removed and hemostasis achieved by applying TR band to the right wrist. FINDINGS: HEMODYNAMICS: LV pressure was 120/25, ascending aortic pressure 120/80. There was significant respiratory variations of her pressures. LEFT VENTRICULOGRAPHY: This showed akinesis of the anterolateral apical and diaphragmatic segment. The basal segments were reasonably well. Overall ejection fraction 20% to 25%. There was moderate +2 mitral regurgitation. RIGHT CORONARY ARTERY: The right coronary artery was a large dominant vessel and gives distally medium-sized posterior descending and several posterolateral branches. The right coronary system was angiographically normal. LEFT CORONARY ARTERY: The left main coronary artery, the circumflex, the obtuse marginal branches were angiographically normal. The left anterior descending was also patent. There was possible muscle bridge in the mid segment. IMPRESSION 1. Angiographically no significant obstructive coronary artery disease. 2. Segmental left ventricular systolic dysfunction consistent with Takotsubo cardiomyopathy. 3. Moderate mitral regurgitation. 4. Elevated left ventricular diastolic pressure. CARE PLAN Medical therapy per primary team. John Dominguez MD Job ID/Internal Job ID: [id number] ECG 12 lead Result Date: 07/19/2023 Narrative: Vent Rate: 91 bpm RR Interval: 655 msec WV Interval: 0 msec QRS Duration: 123 msec QT Interval: 420 msec QTC Interval: 469 msec P-R-T [place]: [id number] - 65 - 208 degrees IMPRESSION: ATRIAL FIBRILLATION MODERATE INTRAVENTRICULAR CONDUCTION DELAY [110+ ms QRS DURATION] ST DEVIATION AND MODERATET-WAVE ABNORMALITY, CONSIDER ANTEROLATERAL ISCHEMIA [-0.1+ mV T-WAVE IN V3-V6] ST DEVIATION AND MODERATE T-WAVE ABNORMALITY, CONSIDER INFERIOR ISCHEMIA [-0.1+ mV T-WAVE IN II/aVF] ABNORMAL ECG Compared to prior EKG, anterolateral T- wave inversions are new QT interval has increased Electronically Signed By: John Dominguez MD ECG 12 lead Result Date: 07/18/2023 Narrative: Vent Rate: 100 bpm RR Interval: 597 msec WV Interval: 0 msec QRS Duration: 128 msec QT Interval: 355 msec QTC Interval: 412 msec P-R-T [place]: [id number] - 33 - 56 degrees IMPRESSION: UNCERTAIN REGULAR RHYTHM, probably junctional POSSIBLE LATERAL MYOCARDIAL INFARCTION , OF INDETERMINATE AGE [30ms Q WAVE IN I/aVL/V5/V6] CRITICAL TEST RESULT Compared to prior EKG, P-waves are not present Electronically Signed By: John Dominguez MD ECG 12 lead Result Date: 07/18/2023 Narrative: Vent Rate: 85 bpm RR Interval: 700 msec WV Interval: 0 msec QRS Duration: 123 msec QT Interval: 403 msec QTC Interval: 445 msec P-R-T [place]: [id number] - 33 - 52 degrees IMPRESSION: UNCERTAIN REGULAR RHYTHM, probably junctional POSSIBLE LATERAL MYOCARDIAL INFARCTION , OF INDETERMINATE AGE [30 ms Q WAVE IN I/aVL/V5/V6] ABNORMAL ECG NO CHANGE FROM PREVIOUS TRACING NOTED Electronically Signed By: John Dominguez MD Transthoracic Echo (TTE) Complete W Doppler/CF Result Date: 07/18/2023 Narrative: [address] [place] [address] Echocardiogram Report Patient Name: PEBBLES LAL L : 1945 Study Date: 07/18/2023 8:50:58 AM Gender: F Tech: Location: [place] [address] Ref Provider: GIANLUCA SORIANO Height(Cm): 152 BSA: 2.39 Weight(Kg): 135.2 Quality: Adequate Order Provider: GRACIELA SORIANOOPROCEDURES: Echocardiographic Report: Transthoracic echocardiogram with complete 2D, M-Mode, and color Doppler examination. INDICATIONS: Congestive Heart Failure. Measurements: 2D/M Mode Doppler Lorenzo urement Value Normal Range Measurement Value Normal Range EF Teich MM 47.3 [ 55.0 - 70.0 ] percent DANIELLE Vmax 2.33 [ 2.00 - 4.00 ] cm2 LVIDd MM 6.07 [ 3.90 - 5.30 ] cm AV Mean PG 11 [ 2 - 4 ] mmHg LVIDs MM 4.60 [ 2.30 - 3.90 ] cm AV Peak Morales 1.48 [ <= 0.02 ] m/s LVPWd MM 0.87 [ 0.60 - 1.00 ] cm AV VTI 25.96 cm IVSd MM 0.99 [ 0.60 - 0.90 ] cm LVOT Diam 2.18 [ 1.70 - 2.10 ] cm LA Dimension MM 5.15 [ 2.70 - 3.80 ] cm LVOT Peak Morales 0.92 [ <= 0.01 ] m/s AoR Diam 2D 2.83 [ 2.60 - 3.70 ] cm LVOT VTI 16.52 [ 20.00 - 30.00 ] cm AoR Diam MM 3.29 [ 2.60 - 3.70 ] cm MV Mean PG 2 [ <= 5 ] mmHg PV Peak Morales 0.77 m/s TR Peak Morales 3.43 [ <= 0.03 ] m/s TR Peak PG 47 mmHg RVSP 57.00 [ 10.00 - 36.00 ] mmHg PA Pressure 10.00 [ 10.00 - 36.00 ] mmHg Measurement Value Normal Range Measurement Value Normal Range 2D/M Mode Doppler - FINDINGS: Atrial Septum: Normal atrial septum. Left Ventricle: Irregular rhythm. Mild concentric left ventricular hypertrophy. Moderate global left ventricular systolic dysfunction. Ejection fraction is visually estimated at 35 to 40 %. 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 Left Atrium: There is mild enlargement of left atrium. Right Ventricle: Normal right ventricular size. Right Atrium: The right atrium is normal in size. Aortic Valve: Normal structure of the aortic valve. Mitral Valve: Mild mitral annular calcification. Mild to moderate mitral valve regurgitation. Pulmonic Valve: Normal structure of the pulmonic valve. Tricuspid Valve: Normal structure of the tricuspid valve. Moderate pulmonary hypertension based on right ventricular systolic pressure. Estimated peak RVSP is 57 to 61 mmHg. Trivial regurgitation in the tricuspid valve. Pericardium: Normal pericardium with no significant pericardial effusion. Aorta: Normal aortic root. IVC: Normal size and normal respiratory collapse consistent with normal right atrial pressure (<5 mmHg). CONCLUSIONS: Irregular rhythm. Mild concentric left ventricular hypertrophy. Moderate global left ventricular systolic dysfunction. Ejection fraction is visuallyestimated at 35 to 40 %. 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 There is mild enlargement of left atrium. Mild mitral annular calcification. Mild to moderate mitral valve regurgitation. Normal structure of the aortic valve. Normal structure of the tricuspid valve. Moderate pulmonary hypertension based on right ventricular systolic pressure. Estimated peak RVSP is 57 to 61 mmHg. Trivial regurgitation in the tricuspid valve. Electronically Signed By: Dr Roly Husain 2023-07-18 10:07:11 CONCRETE TESTER XR CHEST 1 VIEW PORTABLE Result Date: 07/16/2023 Narrative: EXAM DESCRIPTION: XR CHEST 1 VIEW REASON FOR STUDY: cough Pt presents [facility] with nausea vomiting diarrhea spo2 89% RA TECHNIQUE: 1 radiographic view(s) of the chest. COMPARISON: 04/14/2019 FINDINGS: Stable cardiomegaly. Poor inspiratory result with bibasilar discoid atelectasis. Mild pulmonary vascular congestion. No airspace consolidation. No pneumothorax. IMPRESSION: Cardiomegaly and mild pulmonary vascular congestion. THIS IS AN ELECTRONICALLY VERIFIED FINAL REPORT 0:43 PM - Electronically signed by Pawan Mata M.D. KT: KT Report ID: [id number] Reading Location: [id number] Current Facility-Administered Medications Medication Dose Route Frequency Provider Last Rate Last Admin acetaminophen (TYLENOL) tablet 650 mg 650 mg oral Q4H PRN Maciel Jean MD 650 mg at 07/20/23 2132 albuterol 2.5 mg /3 mL (0.083 %) nebulizer solution 2.5 mg 2.5 mg nebulization Q4H PRN (RT) Joycelyn Moseley MD 2.5 mg at 07/20/23 1932 albuterol 2.5 mg /3 mL (0.083 %) nebulizer solution 2.5 mg 2.5 mg nebulization Q6H SAL (RT) Kajal Castañeda MD 2.5 mg at 07/21/23 1437 amiodarone (PACERONE) tablet 200 mg 200 mg oral BID Roly Husain MD 200 mg at 07/21/23 0810 [START ON 08/02/2023] amiodarone (PACERONE) tablet 200 mg 200 mg oral Daily Roly Husain MD apixaban (ELIQUIS) tablet 2.5 mg 2.5 mg oral Q12H SAL Maciel Jean MD 2.5 mg at 07/21/23 0810 buPROPion SR (WELLBUTRIN SR) 12 hour tablet 150 mg 150 mg oral BID Maciel Jean MD 150 mg at 07/21/23 0810 carvediloL (COREG) tablet 3.125 mg 3.125 mg oral BID with meals (bkfst, dinner) Roly Husain MD 3.125 mg at 07/21/23 0810 famotidine (PEPCID) tablet 20 mg 20 mg oral Daily Maciel Jean MD 20 mg at 07/21/23 0811 FLUoxetine (PROzac) capsule 40 mg 40 mg oral Daily Maciel Jean MD 40 mg at 07/21/23 0810 HYDROcodone-acetaminophen (NORCO) 5-325 mg per tablet 1 tablet 1 tablet oral Q4H PRN Maciel Jean MD 1 tablet at 07/20/23 0212 influenza quadrivalent [id number] (FLUZONE HIGH DOSE) 240 mcg/0.7 mL vaccine (HIGH DOSE age 65 yearsand up) 0.7 mL 0.7 mL intramuscular During hospitalization Maciel Jean MD miconazole 2 % powder topical BID Maciel Jean MD Given at 07/21/23 0813 ondansetron (ZOFRAN) injection 4 mg 4 mg intravenous Q4H PRN Maciel Jean MD 4 mg at 07/18/23 2259 psyllium (aspartame) SF (METAMUCIL SF) 3.4 gram packet 1 packet 1 packet oral Nightly Maciel Jean MD 1 packet at 07/19/23 204 sacubitriL-valsartan (ENTRESTO) 24-26 mg tablet 1 tablet 1 tablet oral BID Roly Husain MD 1 tablet at 07/21/23 0813 sodium chloride 0.9% flush 5-10 mL 5-10 mL intra-catheter Q12H SAL Maciel Jean MD 10 mL at 07/21/23 0811 sodium chloride 0.9% flush 5-20 mL 5-20 mL intra-catheter PRN Maciel Jean MD sodium phosphate - potassium phosphate (K-PHOS NEUTRAL) tablet 250 mg 250 mg oral TID Karen Zambrano MD 250 mg at 07/21/23 1510 A/P: 1. Takotsubo cardiomyopathy, present on admission, status post cardiac catheterization moderate to severe LV systolic dysfunction noticed. Recommending to continue Coreg, Entresto, increase activity,rehab. 2. New onset atrial fibrillation, started amiodarone loading dose, and 200 mg daily starting on August 022023 periods continuing low does Eliquis, low-dose Coreg. 3. Vomiting and diarrhea resolved. 4. Hyponatremia, suspected to be secondary to congestive heart failure. Patient received 1 dose of 60 mg Lasix today. Will repeat sodium level again in the morning. MDM moderate Principal Problem: Vomiting and diarrhea Active Problems: Class 3 severe obesity due to excess calories with serious comorbidity and body mass index (BMI) of50.0 to 59.9 in adult (HCC) Acquired hypothyroidism NSTEMI (non-ST elevated myocardial infarction) (CMS/HCC) (HCC) Takotsubo cardiomyopathy Mitral regurgitation New onset atrial fibrillation (CMS/HCC) (HCC) Resolved Problems: No resolved hospital problems. Voice recognition software [employer] Direct was used dictate and transcribe this document. Photogrammetric Surveyor variances may occur. Despite proofreading, typographical errors may occur. Karen Zambrano MD 07/21/2023 4:52 PM RETE TESTER * [address], AUTOCLAVE OPERATOR - 07/21/2023 2:50 PM CST Physical Therapy 07/21/23 1132 PT Last Visit Session Type Treatment Safe Environment Arm band checked;Patient found sitting in chair;Gait belt utilized for all out of bed mobility;Session completed bedside Pain Assessment Pain Assessment 0-10 Pain Score 8 Supine Supine-Exercises Bilateral;Lower extremity Reps/Sets 10 Supine-Exercise Comments pt declined sitting eob Assessment Prognosis Guarded Problem List Decreased strength;Decreased range of motion;Decreased endurance;Impaired balance;Decreased mobility Plan Plan If this is the last note, consider this the discharge summary Recommendation/Plan PT Recommendation/Plan Fdc Facility Patient at high risk for Falls;Readmission;Injury due to decreased ability to care for self;Injury due to reduced functional status Recommend SNF due to Risk of injury at home;Skilled therapy needed to address care for self in the home;Unable to safely care for self in the home;Skilled therapy needed to address functional deficits;Skilled therapy needed for patient to return to prior level of independence RETE TESTER * Chris Weir, [facility] - 07/21/2023 8:53 AM CST Pharmacy Consult -Electrolyte Replacement Protocol (in patients not receiving parenteral nutrition) Pharmacist managed electrolyte replacement protocol has been ordered by Dr. Soriano. Exclusion criteria to the pharmacist managed electrolyte protocol (If any present, then please contact the provider to notify them of the applicable exclusion criteria) No Monitoring Guidelines: Electrolyte levels will be ordered by providers as needed. Pertinent Lab Results: Lab Results Component Value Date SODIUM 131 (L) 07/21/2023 POTASSIUM 3.9 07/21/2023 MAGNESIUM 2.0 07/18/2023 PHOS 2.3 07/21/2023 CALCIUM 9.4 07/21/2023 ALBUMIN 2.9 (L) 07/21/2023 Corrected Calcium = 10.3 Estimated Creatinine Clearance: 43 mL/min (by C-G 65 yr and older- minimum SCr 0.8 based on SCr of 0.75 mg/dL). Lab Results Component Value Date CREATININE 0.75 07/21/2023 CREATININE 0.72 07/20/2023 CREATININE 0.77 07/19/2023 IV or PO repletion will be ordered by the pharmacist when levels fall below the desired range basedon the diet ordered. The following electrolyte replacement orders were placed: Give K-phos neutral, one tablet (8 mmol) three times daily for 3 doses per protocol for phosphorus level. Table 1. Serum Potassium (mmol/L) Creatinine Clearance (mL/min) Potassium Replacement 3.3 to 3.5 CrCl > 30 Potassium chloride 20 mEq IV, PO, or per tube for 1 dose CrCl < 30 No replacement 3.0 to 3.2 CrCl > 30 Potassium chloride 40 mEq IV, PO, or per tube for 1 dose CrCl < 30 Potassium chloride 20 mEq IV, PO, or per tube for 1 dose 2.6 to 2.9 CrCl > 30 Potassium chloride 60 mEq IV, PO, or per tube for 1 dose CrCl < 30 Potassium chloride 40 mEq IV, PO, or per tube for 1 dose < 2.6 CrCl > 30 Potassium chloride 60 mEq IV for 1 dose, Repeat level 2 hours after infusion complete, and contact provider CrCl < 30 Potassium chloride 40 mEq IV for 1 dose, Repeat level 2 hours after infusion complete, and contact provider *Normal S. Potassium range 3.3 - 5.1 mmol/L a. Limit potassium chloride to 40 mEq in a single IVPB. Table 2. Ionized calcium (mg/dL) Corrected Serum Calcium (mg/dL) Calcium Replacement 3.01 to 4.49 7.6 to 8.4 Calcium carbonate 500 mg (elemental calcium) PO or per tube TID for 3 doses Or Calcium gluconate 1 g IV for 1 dose < 3 < 7.5 Calcium gluconate 2 g IV for 1 dose Repeat level 4 hours after infusion complete and contact provider *Normal S. Calcium range 8.6 - 10.3 mg/dL a. Serum calcium must be corrected for hypoalbuminemia based on the following equation: Corrected serum calcium = 0.8(4 - Albumin) + Calcium b. Ionized calcium is preferred over serum calcium if both are available c. Calcium carbonate may be administered as a tablet or as the suspension Table 3. Serum Magnesium (mg/dL) Creatinine Clearance (mL/min) Magnesium Replacement 1.0 to 1.5 CrCl > 30 Magnesium oxide 400 mg PO TID x 3 doses Or Magnesium sulfate 2g IV for 1 dose CrCl < 30 Magnesium oxide 400 mg PO TID x 3 doses Or Magnesium sulfate 1g IV for 1 dose <1.0 CrCl > 30 Magnesium sulfate 4g IV for 1 dose Repeat level 2 hours after infusion complete and contact provider CrCl < 30 Magnesium sulfate 2g IV for 1 dose Repeat level 2 hours after infusion complete and contact provider *Normal S. Magnesium range 1.6-2.6 mg/dL Table 4. Serum Phosphorus (mg/dL) Serum Potassium (mmol/L) Oral or per tube Phosphate Replacement 2 to 2.5 > 3.5 K-Phos Neutral 1 tablet (8 mmol) PO or per tube TID x 3 doses < 3.5 Phos NaK 1 packet (8 mmol) PO or per tube TID x 3 doses 1.6 to 1.9 > 3.5 K-Phos Neutral 2 tablets (16 mmol) PO or per tube TID x 3 doses < 3.5 Phos NaK 2 packets (16 mmol) PO or per tube TID x 3 doses < 1.6 Go to the intravenous phosphate replacement table (Table 5) *Normal S. Phosphorus range 2.5 - 4.5 mg/dL a. If potassium is provided as part of the above phosphorus replacement, then count this as part ofthe potassium replacement in Table 1. b. Each K-Phos Neutral tablet contains elemental phosphorus 250 mg (8 mmol), potassium 45 mg (1.1 mEq), and sodium 298 mg (13 mEq). c. Each Phos-NaK packet contains elemental phosphorus 250 mg (8 mmol), potassium 280 mg (7.1 mEq), and sodium 160 mg (6.9 mEq). Table 5. Serum Phosphorus (mg/dL) Intravenous Phosphate Replacement 2 to 2.5 Phosphate 0.16 mmol/kgb IV for 1 dose 1.6 to 1.9 Phosphate 0.32 mmol/kgb IV for 1 dose < 1.6 Phosphate 0.64 mmol/kgb IV for 1 dose Repeat level 4 hours after infusion complete and contact provider *Normal S. Phosphorus range 2.5 - 4.5 mg/dL a. Formulation (sodium or potassium salt) will be determined by potassium requirements as determined in Table 1. b. If potassium is provided as part of the above phosphorus replacement, then count this as part ofthe potassium replacement in Table 1. Each mmol of IV potassium phosphate contains 1.5 mEq of potassium. b. Round to the nearest 5 mmol phosphate. Limit phosphate repletion to 30 mmoles in a single IVPB. c. Use adjusted body weight for patients with a BMI > 30 Thank you, Chris Weir RPh [facility] Pharmacy department RETE TESTER * Roly Husain MD - 07/21/2023 6:55 AM CST Cardiology Progress Note 07/21/23 Chief complaint: Shortness of breath Symptoms: Patient was found sleeping. When awakened, she denied any chest pain shortness of breath.She wants to go home. Vital Signs: Vitals: 07/21/23 0200 07/21/23 0226 07/21/23 0319 07/21/23 0400 BP: 113/77 BP Location: Left arm Patient Position: Lying;HOB 30 degrees Pulse: 75 71 77 Resp: 20 Temp: 36.2 ??C (97.2 ??F) TempSrc: Temporal SpO2: 95% 98% Weight: Height: Intake/Output Summary (Last 24 hours) at 07/21/2023 0655 Last data filed at 07/21/2023 0445 Gross per 24 hour Intake 540 ml Output 685 ml Net -145 ml Wt Readings from Last 3 Encounters: 07/20/23 (!) 137.2 kg (302 lb 7.5 oz) 03/28/23 131.1 kg (289 lb) 09/20/22 131.1 kg (289 lb) Temp Min: 36 ??C (96.8 ??F) Max: 36.3 ??C (97.4 ??F) Pulse Min: 70 Max: 106 BP Min: 113/77 Max: 134/71 Resp Min: 18 Max: 26 SpO2 Min: 93 % Max: 100 % \\ Current Medications: Current Facility-Administered Medications Medication Dose Route Frequency Provider Last Rate Last Admin acetaminophen (TYLENOL) tablet 650 mg 650 mg oral Q4H PRN Maciel Jean MD buPROPion SR (WELLBUTRIN SR) 12 hour tablet 150 mg 150 mg oral BID Maciel Jean MD 150 mg at 07/18/23 0840 cefTRIAXone (ROCEPHIN) 1,000 mg/10 mL in sterile water (premix) 1,000 mg 1,000 mg intravenous [facility] AlpenaSilvia kaufman MD 1,000 mg at 07/18/23 0841 dextrose 5% and sodium chloride 0.45% infusion (premix) 100 mL/hr intravenous Continuous Maciel Jean MD 100 mL/hr at 07/18/23 0841 100 mL/hr at 07/18/23 0841 enoxaparin (LOVENOX) syringe 40 mg 40 mg subcutaneous Daily-2100 Maciel Jean MD 40 mg at 07/17/23 220 famotidine (PEPCID) injection 20 mg 20 mg intravenous Q24H SAL Maciel Jean MD 20 mg at 840 FLUoxetine (PROzac) capsule 40 mg 40 mg oral Daily Maciel Jean MD 40 mg at 07/18/23 0840 HYDROcodone-acetaminophen (NORCO) 5-325 mg per tablet 1 tablet 1 tablet oral Q4H PRN Maciel Jean MD 1 tablet at 07/18/23 0520 influenza quadrivalent [id number] (FLUZONE HIGH DOSE) 240 mcg/0.7 mL vaccine (HIGH DOSE age 65 yearsand up) 0.7 mL 0.7 mL intramuscular During hospitalization Maciel Jean MD miconazole 2 % powder topical BID Maciel Jean MD Given at 07/18/23 0852 ondansetron (ZOFRAN) injection 4 mg 4 mg intravenous Q4H PRN Maciel Jean MD 4 mg at 07/18/23 0926 psyllium (aspartame) SF (METAMUCIL SF) 3.4 gram packet 1 packet 1 packet oral Nightly Maciel Jean MD Labs: Recent Labs Lab Units 07/20/23 0405 07/19/237 07/18/23 0334 SODIUM mmol/L 134* 133* 140 POTASSIUM PLASMA mmol/L 3.6 3.6 3.8 CHLORIDE mmol/L 96* 95* 101 CO2 mmol/L 29 24 30 BUN SERUM mg/dL CREATININE mg/dL 0.72 0.77 0.84 AWT-DUV-GDSUDUI mL/min/1.73 m2 87 80 72 GLUCOSE mg/dL 106 101 107 CALCIUM mg/dL 9.2 9.0 8.8 ALBUMIN g/dL 3.1* 3.0* 2.9* PHOSPHORUS PLASMA mg/dL 2.7 2.4 2.6 Recent Labs Lab Units 07/20/23 0405 07/19/23 0417 07/18/23 0334 ALK PHOS Units/L 122 117 119 BILIRUBIN TOTAL mg/dL 0.4 0.3 0.3 TOTAL PROTEIN g/dL 7.1 7.1 6.9 ALT Units/L 18 15 13 AST Units/L Recent Labs Lab Units 07/17/23 0442 07/16/23 2203 WBC K/cumm 17.4* 16.6* HEMOGLOBIN g/dL 13.4 14.0 HEMATOCRIT % 40.1 41.8 PLATELETS K/cumm 271 354 Recent Labs Lab Units 07/17/23 0254 INR 1.26* Lab Results Component Value Date TSH 1.45 07/17/2023 Lab Results Component Value Date CHOL 150 03/21/2023 TRIG 61 03/21/2023 HDL 76 03/21/2023 LDLCALC 62 03/21/2023 No results found for: TROPONINT Telemetry: Cardiac Rhythm: Atrial flutter (07/21/23 0400) Cardiology Testing: ProBNP: EKG: Echocardiogram: Stress Test: Cardiac Cath: Impression: Elevated cardiac troponins likely due to multiple etiologies: underlying UTI/sepsis and also acute kidney injury. Now also has takotsubo cardiomyopathy with normal coronaries on recent cardiac catheterization. Moderate to severe LV systolic dysfunction noted. Qcwc-lb-pmyitbnp MR on echo 18 July 2023. Atrial fibrillation, cardioverted yesterday to atrial flutter. Already on Eliquis 5 mg p.o. b.i.d. and we should continue. Chronic pain syndrome. Hypertension Plan: Continue with front loading a p.o. amiodarone. Wearable defibrillator on discharge. Increase activities with physical therapy. Follow-up with me 17 August 2023. CC: Tristan Watson MD Sargsyan, Narine, MD RETE TESTER * Guerda Lewis, RD - 07/20/2023 2:09 PM CST NUTRITION ASSESSMENT Nutrition Status: Patient at risk for malnutrition, but does not meet ASPEN criteria for malnutrition. REASON FOR ASSESSMENT: Length of Stay Encounter Date: 07/20/23 2:09 PM Admission Date: 07/16/2023 LOS: 3 days HPI: Patient is a 78 y.o. female PMH of lymphedema who presented to the ED with nausea, emesis and diarrhea .She is being admitted to the ICU for close observation. 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 HX OTHER MEDICAL IGT Hypertension Moderate episode of recurrent major depressive disorder (HCC) 12/05/2017 Past Surgical History: Procedure Laterality Date RHINOPLASTY RHINOPLASTY Social History Tobacco Use Smoking status: Never Smokeless tobacco: Never Substance and Sexual Activity Drug use: No Sexual activity: Defer Alcohol Use: Not At Risk (07/17/2023) AUDIT-C Frequency of Alcohol Consumption: Never Average Number of Drinks: Patient does not drink Frequency of Binge Drinking: Never MEDICATION/LAB REVIEW: Scheduled Meds: amiodarone, 200 mg, oral, BID [START ON 08/02/2023] amiodarone, 200 mg, oral, Daily apixaban, 2.5 mg, oral, Q12H SAL buPROPion SR, 150 mg, oral, BID carvediloL, 3.125 mg, oral, BID with meals (bkfst, dinner) cefTRIAXone, 1,000 mg, intravenous, Daily digoxin, 125 mcg, intravenous, Q24H SAL famotidine, 20 mg, oral, Daily FLUoxetine, 40 mg, oral, Daily miconazole, , topical, BID psyllium (aspartame) SF, 1 packet, oral, Nightly sacubitriL-valsartan, 1 tablet, oral, BID sodium chloride 0.9%, 5-10 mL, intra-catheter, Q12H SAL Continuous Infusions: PRN Meds: acetaminophen albuterol HYDROcodone-acetaminophen influenza quadrivalent [id number] ondansetron sodium chloride 0.9% Recent Labs Lab Units 07/20/23 0405 07/19/23 0417 07/18/23 0334 07/17/23 0511 SODIUM mmol/L 134* < > 140 138 POTASSIUM PLASMA mmol/L 3.6 < > 3.8 3.8 CHLORIDE mmol/L 96* < > 101 100 CO2 mmol/L 29 < > 30 25 BUN SERUM mg/dL 22 < > 19 18 CREATININE mg/dL 0.72 < > 0.84 1.15* SHH-PMM-KQUIRDN mL/min/1.73 m2 87 < > 72 49 CALCIUM mg/dL 9.2 < > 8.8 9.4 ALBUMIN g/dL 3.1* < > 2.9* 3.2* PHOSPHORUS PLASMA mg/dL 2.7 < > 2.6 3.2 MAGNESIUM mg/dL -- -- 2.0 2.0 < > = values in this interval not displayed. Recent Labs Lab Units 07/20/23 0405 07/19/23 0417 07/18/23 0334 07/17/23 0511 07/16/23 2203 GLUCOSE mg/dL 106 101 107 163 240* ALT Date Value Ref Range Status 07/20/2023 18 7 - 45 Units/L Final AST Date Value Ref Range Status 07/20/2023 19 10 - 45 Units/L Final Alk phos Date Value Ref Range Status 07/20/2023 122 40 - 130 Units/L Final Lab Results Component Value Date HGBA1C 5.1 11/20/2021 HDL 76 03/21/2023 LDLCALC 62 03/21/2023 CHOL 150 03/21/2023 TRIG 61 03/21/2023 NURSING ASSESSMENT: Bowel Sounds (All Quadrants): Active Dane Scale Score: 15 Skin Integrity: Excoriation, Redness, Bruising, Scaling Pressure Ulcer/Pressure Injury 07/17/23 Right Buttocks Large dark purple bruise to right buttocks-Pressure Ulcer Status: Healed Vital Signs BP: 133/68 Temp: 36.3 ??C (97.4 ??F) Pulse: 88 Resp: 26 SpO2: 93 % Intake/Output Summary (Last 24 hours) at 07/20/2023 1409 Last data filed at 07/20/2023 1320 Gross per 24 hour Intake 600 ml Output 565 ml Net 35 ml Adult Malnutrition Scoring Tool (MST) What diet do you follow at home?: Regular Have You Recently Lost Weight Without Trying?: No Have you been eating poorly because of a decreased appetite?: No Malnutrition Screening Tool (MST) Score: 0 Hunger Screen - Admission Within the past 12 months the food we bought just didn't last and we didn't have money to get more.: Never true Within the past 12 months we worried whether our food would run out before we got money to buy more.: Never true Anthropometrics Weight: (!) 137.2 kg (302 lb 7.5 oz) Admission Weight : 135.4 kg Weight Change: 2.02 kg (4.47 lbs) IBW/kg (Calculated) : 45.4 kg Height: 152.4 cm (5') Weight in (lb) to have BMI = 25: 127.7 BMI (Calculated): 59.1 Wt Readings from Last 10 Encounters: 07/20/23 (!) 137.2 kg (302 lb 7.5 oz) 03/28/23 131.1 kg (289 lb) 09/20/22 131.1 kg (289 lb) 03/15/22 127 kg (280 lb) 04/19/19 124.7 kg (275 lb) 03/15/17 135.2 kg (298 lb) 09/01/16 135.2 kg (298 lb) 03/10/16 126.1 kg (278 lb) 09/04/15 129.7 kg (286 lb) 03/04/15 130.6 kg (288 lb) ESTIMATED NEEDS: Total Kcal/kg Estimated Needs : 1783.6 Kcal/k. Type of Weight Used for Estimated Kcals: Current Total Protein Estimated Needs (gm): 54.48 Protein Needs Based on g/k.2 Type of Weight Used for Estimated Protein : [place] Total Fluid Estimated Needs: 1783.6 Fluid Needs Based on : 1 ml/kcal Type of Weight Used for Estimated Fluid Needs: Current Dietary Orders (From admission, onward) Start Ordered 07/19/23 1532 Adult Diet Special; 4 GM Sodium Diet effective now Question Answer Comment ([facility]) Diet Type Special Fat / Sodium Restriction: 4 GM Sodium 07/19/23 1533 Allergies: Reviewed. IMPRESSION: Intakes 20% of meals. Per nursing, pt has poor appetite. No further nausea, vomiting, diarrhea noted. 0 MST score. Will add Ensure high protein BID. Encourage PO intake. JUANCARLOS MALNUTRITION ASSESSMENT: Date of completion: 07/20/23 NUTRITION FOCUSED PHYSICAL EXAM: N/A NUTRITION DIAGNOSIS: Nutrition Diagnosis 1: Inadequate oral intake Related to: Loss of appetite Evidenced by: Physical finding INTERVENTION(S): Summary: Encouragement, [place] diet preferences within the limits of nutrition care order, Initial assessment, Medical food supplement GOAL(S): Oral intake to meet 75% estimated nutritional needs by next assessment, Tolerance of medical food supplement by next assessment MONITORING/EVALUATION: Discharge plans, Supplement tolerance, PO intake Diet Instructions Continue to follow a Low Sodium diet and limit sodium intake to less than 2,000mg per day. Avoid foods that are high sources of sodium, such as fast foods, fried/breaded foods, pickled foods, canned goods, deli meats and gravies/sauces. Use alternatives to season foods such as Mrs. MENDOSA and other he rbs. Additional resources are available online from the [place] [employer] at www.heart.org/en/healthy-living/healthy-eating If poor intakes and/or unintended weight loss occur on discharge follow up with primary care physician. Call [facility] Dietitian's office at [phone] for questions about your diet. If interested in nutrition counseling, ask your doctor for referral and call [phone] to make an appointment. Guerda Lewis RDN N Inpatient Office: [phone] Weekend Coverage: [phone] RETE TESTER * Ale Lord, PT - 07/20/2023 11:38 AM CST Physical Therapy INITIAL EVALUATION PATIENT'S NAME:Pebbles Lal :1945 AGE:78 y.o. TIME IN:1138 TIME OUT:1209 CURRENT DIAGNOSIS AND HOSPITAL COURSE:NSTEMI and EF 20% , takotsubo cardiomyopathy with h/o COPD, HTN, CKD, hypothyroidism, depression, chronic pain , morbid obesity Patient Active Problem List Diagnosis Benign hypertension Chronic stasis dermatitis IGT (impaired glucose tolerance) Chronic pain syndrome PE (physical exam), annual Vitamin D deficiency Mild persistent asthma without complication Recurrent major depressive disorder, in partial remission ([facility]) Class 3 severe obesity due to excess calories with serious comorbidity and body mass index (BMI) of50.0 to 59.9 in adult ([facility]) Iron deficiency anemia due to chronic blood loss Pure hypercholesterolemia B12 deficiency Hypertensive heart disease with congestive heart failure ([facility]) At high risk for falls per Rory fall risk assessment scale Acquired hypothyroidism Benign essential tremor Vomiting and diarrhea NSTEMI (non-ST elevated myocardial infarction) ([facility]/HCC) ([facility]) Takotsubo cardiomyopathy 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 HX OTHER MEDICAL IGT Hypertension Moderate episode of recurrent major depressive disorder ([facility]) 12/05/2017 Past Surgical History: Procedure Laterality Date RHINOPLASTY RHINOPLASTY SUBJECTIVE LIVES WITH: LIVING ENVIRONMENT: house with ramp to enter PRIOR LEVEL OF FUNCTION: assist with bathing and dressing, dependent for cooking and cleaning EQUIPMENT OWNED: w.c and wheeled walker EQUIPMENT USED: wheeled walker for transfers to w/c, primarily use w/c FALL HISTORY: reports last fall was Tuesday night SOCIAL SUPPORTS: PATIENT/FAMILY GOAL: NA MENTAL STATUS/ORIENTATION: Alert and oriented x4 OBJECTIVE PRECAUTIONS: fall risk APPEARANCE/POSTURE: supine in bed with 3-4 L of oxygen, stafford and ICU monitoring PAIN: Pre-therapy pain level: 0/10 Pain location: NA Pain intervention: NA Post-therapy pain level/response to intervention: 0/10 VITAL SIGNS: Resting heart rate: 73 Post-activity heart rate: 98 Resting O2 sat: 97 Post-activity O2 sat: 89 LE ASSESSMENTS: Right LE ROM: WFL Left LE ROM: WFL Right LE strength: 3-/5 Left LE strength: 3-/5 Coordination: not tested Tone: WFL MOBILITY: Bed mobility: supine to sit with max assist, sit to supine with max assist of 2 Transfers: patient refuses attempt to stand Ambulation: NA Stairs: NA Balance/Special Tests: Static sitting balance: fair- with posterior lean Dynamic sitting balance: fair- 6 CLICK: Basic Mobility - 6 Click How much difficulty does the patient have: Turning over in bed: A lot How much difficulty does the patient currently have: Sitting down and standing up from a chair witharms?: Unable How much difficulty does the patient have: Moving from lying on back to sitting on the side of the bed?: A lot How much difficulty does the patient have: Moving to and from a bed to a chair including wheelchair?: Total How much help does the patient currently need: Walk in hospital room?: Total How much help from another person does the patient currently need: Climbing 3-5 steps with a railing?: Total Total 6 Click Score (range 6-24): 8 Score Interpretation: 12 APPEARANCE/POSTURE (end of session): supine in bed as was previously EDUCATION: patient educated on plan of care RESPONSE TO EDUCATION: needs reinforcement ASSESSMENT PROBLEM LIST: decreased strength, balance, mobility and gait BARRIERS TO LEARNING: Physical and Emotional BARRIERS TO DISCHARGE: Limited family support, Limited safety awareness, Decreased motivation, Limited participation, Anxiety, Limited insight into deficits, Unrealistic expectations, Upper extremityweakness, and Lower extremity weakness REHAB POTENTIAL/PROGNOSIS: fair PLAN RECOMMENDATIONS: SNF TREATMENT PLAN/INTERVENTIONS: strengthening, balance mobility and transfer training FREQUENCY: daily EQUIPMENT RECOMMENDATIONS: NA Refer to multi-disciplinary care plan section for PT specific goals. Multi-Disciplinary Problems (from Physical Therapy) Active Problems Problem: Transfers Start Date: 07/20/23 Goal Start Date Expected End Date End Date STG - Transfer from bed to chair on one occasion 07/20/23 07/27/23 -- Goal Start Date Expected End Date End Date STG - Patient to transfer to and from sit to supine with min assist 07/20/23 07/27/23 -- Goal Start Date Expected End Date End Date STG - Patient will roll with min assist 07/20/23 07/27/23 -- If this is the last note, please consider this the discharge summary. RETE TESTER * Maciel Jean MD - 07/20/2023 10:22 AM CST Progress Note Critical Care Subjective: Awake Chief complaint of UTI Interval History: 80-year-old female morbidly overweight admitted with shortness of breath TOÑA UTI NSTEMI treated with IVF antibiotics history of COPD HTN CKD hypothyroidism depression chronic pain underwent cardiac catheterization normal coronaries EF 20 percent and cardioversion. Started on anticoagulation amiodarone digoxin afterload reduction advance diet. Review of Systems All other systems reviewed and are negative. Medications: amiodarone, 200 mg, oral, BID [START ON 08/02/2023] amiodarone, 200 mg, oral, Daily apixaban, 2.5 mg, oral, Q12H SAL buPROPion SR, 150 mg, oral, BID carvediloL, 3.125 mg, oral, BID with meals (bkfst, dinner) cefTRIAXone, 1,000 mg, intravenous, Daily digoxin, 125 mcg, intravenous, Q24H SAL famotidine, 20 mg, oral, Daily FLUoxetine, 40 mg, oral, Daily miconazole, , topical, BID psyllium (aspartame) SF, 1 packet, oral, Nightly sacubitriL-valsartan, 1 tablet, oral, BID sodium chloride 0.9%, 5-10 mL, intra-catheter, Q12H SAL Subjective: Vitals: 24hr Min/Max: Temp Min: 36.1 ??C (96.9 ??F) Max: 36.4 ??C (97.5 ??F) Pulse Min: 72 Max: 96 BP Min: 107/56 Max: 137/111 Resp Min: 16 Max: 31 SpO2 Min: 91 % Max: 100 % Date 07/19/23699 - 07/20/2365807/20/23699 - 07/21/23 0659 Shift 6400-0135 5671-3786 24 Hour Total 8547-2402 8019-4938 24 Hour Total INTAKE P.O. 350 200 550 120 120 I.V.(mL/kg) 20(0.1) 20(0.1) Shift Total(mL/kg) 350(2.6) 220(1.6) 570(4.2) 120(0.9) 120(0.9) OUTPUT Urine(mL/kg/hr) 175(0.1) 380(0.2) 555(0.2) 60 60 Shift Total(mL/kg) 175(1.3) 380(2.8) 555(4) 60(0.4) 60(0.4) NET 175 -160 15 60 60 Weight (kg) 135.2 137.2 137.2 137.2 137.2 137.2 Physical Exam Vitals and nursing note reviewed. Constitutional: Appearance: She is obese. HENT: Head: Normocephalic. Nose: Nose normal. Mouth/Throat: Mouth: Mucous membranes are moist. Eyes: Extraocular Movements: Extraocular movements intact. Cardiovascular: Rate and Rhythm: Normal rate and regular rhythm. Heart sounds: Normal heart sounds. Pulmonary: Effort: Pulmonary effort is normal. Breath sounds: Normal breath sounds. Abdominal: Palpations: Abdomen is soft. Musculoskeletal: Cervical back: Neck supple. Right lower leg: Edema present. Left lower leg: Edema present. Skin: General: Skin is warm. Capillary Refill: Capillary refill takes 2 to 3 seconds. Neurological: General: No focal deficit present. Mental Status: She is alert. Psychiatric: Mood and Affect: Mood normal. Lab/Radiology/Diagnostic Review: Lab Results Component Value Date WBC 17.4 (H) 07/17/2023 HGB 13.4 07/17/2023 HCT 40.1 07/17/2023 LABPLAT 271 07/17/2023 CHOL 150 03/21/2023 TRIG 61 03/21/2023 HDL 76 03/21/2023 LDLDIRECT 65 05/21/2021 ALT 18 07/20/2023 AST 19 07/20/2023 SODIUM 134 (L) 07/20/2023 POTASSIUM 3.6 07/20/2023 CHLORIDE 96 (L) 07/20/2023 CREATININE 0.72 07/20/2023 BUNSER 22 07/20/2023 CO2 29 07/20/2023 TSH 1.45 07/17/2023 INR 1.26 (H) 07/17/2023 HGBA1C 5.1 11/20/2021 A/P: Principal Problem: Vomiting and diarrhea Active Problems: NSTEMI (non-ST elevated myocardial infarction) (CMS/HCC) (HCC) Takotsubo cardiomyopathy 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 Cardiac: Takotsubo cardiomyopathy EF 20 percent normal coronary arteries started on afterload reduction anticoagulation digoxin amiodarone for atrial fibrillation also cardioverted after cardiac catheterization Pulm: Oxygen nasal cannula as needed GI/Nutrition: GI prophylaxis advance diet Renal: Hydrated improving TOÑA Heme: DVT precautions on Eliquis anticoagulation ID: Continue ceftriaxone for UTI E coli sensitive Critical Care Time: I have spent 55 minutes in full attendance with this critically ill patient making frequent reassessments and decisions regarding this patient's complex medical care. Critical care time was exclusive of separately billable procedures, treating other patients and teaching time. Maciel Jean MD RETE TESTER RETE TESTER * Roly Husain MD - 07/20/2023 7:16 AM CST Cardiology Progress Note 07/20/23 Chief complaint: Shortness of breath Symptoms: Patient was found sleeping. When awakened, she denied any chest pain or shortness of breath. We discussed yesterday's cardioversion result. She will need full-dose oral anticoagulation and she is agreeable. We discussed bleeding precautions. Discussed the need for a LifeVest and she is agreeable to that also. Vital Signs: Vitals: 07/20/23 0400 07/20/23 0500 07/20/23 0600 07/20/23 0630 BP: 121/60 132/63 118/60 BP Location: Left arm Right arm Patient Position: Lying Lying Pulse: 84 82 83 Resp: Temp: 36.1 ??C (96.9 ??F) TempSrc: Temporal SpO2: 95% 98% 91% Weight: (!) 137.2 kg (302 lb 7.5 oz) Height: Intake/Output Summary (Last 24 hours) at 07/20/2023 0716 Last data filed at 07/20/2023 0400 Gross per 24 hour Intake 570 ml Output 555 ml Net 15 ml Wt Readings from Last 3 Encounters: 07/20/23 (!) 137.2 kg (302 lb 7.5 oz) 03/28/23 131.1 kg (289 lb) 09/20/22 131.1 kg (289 lb) Temp Min: 36.1 ??C (96.9 ??F) Max: 36.4 ??C (97.5 ??F) Pulse Min: 72 Max: 104 BP Min: 107/56 Max: 137/111 Resp Min: 15 Max: 31 SpO2 Min: 91 % Max: 100 % Physical Exam: Lungs: Clear to auscultation and percussion. Respirations unlabored Cardiac: Regular rhythm now. Abd: Soft, nontender, BS active, no hepatosplenomegaly or masses, no abdominal bruit or enlarged aortic pulsation Extremities: Good pulse in the right radial area. Current Medications: Current Facility-Administered Medications Medication Dose Route Frequency Provider Last Rate Last Admin acetaminophen (TYLENOL) tablet 650 mg 650 mg oral Q4H PRN Maciel Jean MD buPROPion SR (WELLBUTRIN SR) 12 hour tablet 150 mg 150 mg oral BID Maciel Jean MD 150 mg at 07/18/23 0840 cefTRIAXone (ROCEPHIN) 1,000 mg/10 mL in sterile water (premix) 1,000 mg 1,000 mg intravenous Daily[facility] AlpenaSilvia kaufman MD 1,000 mg at 07/18/23 0841 dextrose 5% and sodium chloride 0.45% infusion (premix) 100 mL/hr intravenous Continuous Maciel Jean MD 100 mL/hr at 07/18/23 0841 100 mL/hr at 07/18/23 0841 enoxaparin (LOVENOX) syringe 40 mg 40 mg subcutaneous Daily-2100 Maciel Jean MD 40 mg at 07/17/232206 famotidine (PEPCID) injection 20 mg 20 mg intravenous Q24H SAL Maciel Jean MD 20 mg at 840 FLUoxetine (PROzac) capsule 40 mg 40 mg oral Daily Maciel Jean MD 40 mg at 07/18/23 0840 HYDROcodone-acetaminophen (NORCO) 5-325 mg per tablet 1 tablet 1 tablet oral Q4H PRN Maciel Jean MD 1 tablet at 07/18/23 0520 influenza quadrivalent [id number] (FLUZONE HIGH DOSE) 240 mcg/0.7 mL vaccine (HIGH DOSE age 65 yearsand up) 0.7 mL 0.7 mL intramuscular During hospitalization Maciel Jean MD miconazole 2 % powder topical BID Maciel Jean MD Given at 07/18/23 0852 ondansetron (ZOFRAN) injection 4 mg 4 mg intravenous Q4H PRN Maciel Jean MD 4 mg at 07/18/23 0926 psyllium (aspartame) SF (METAMUCIL SF) 3.4 gram packet 1 packet 1 packet oral Nightly Maciel Jean MD Labs: Recent Labs Lab Units 07/20/23 0405 07/19/237 07/18/23 0334 SODIUM mmol/L 134* 133* 140 POTASSIUM PLASMA mmol/L 3.6 3.6 3.8 CHLORIDE mmol/L 96* 95* 101 CO2 mmol/L 29 24 30 BUN SERUM mg/dL 22 20 19 CREATININE mg/dL 0.72 0.77 0.84 [id number] mL/min/1.73 m2 87 80 72 GLUCOSE mg/dL 106 101 107 CALCIUM mg/dL 9.2 9.0 8.8 ALBUMIN g/dL 3.1* 3.0* 2.9* PHOSPHORUS PLASMA mg/dL 2.7 2.4 2.6 Recent Labs Lab Units 07/20/23 0405 07/19/237 07/18/23 0334 ALK PHOS Units/L 122 117 119 BILIRUBIN TOTAL mg/dL 0.4 0.3 0.3 TOTAL PROTEIN g/dL 7.1 7.1 6.9 ALT Units/L 15 13 AST Units/L Recent Labs Lab Units 07/17/23 0442 07/16/23 2203 WBC K/cumm 17.4* 16.6* HEMOGLOBIN g/dL 13.4 14.0 HEMATOCRIT % 40.1 41.8 PLATELETS K/cumm 271 354 Recent Labs Lab Units 07/17/23 0254 INR 1.26* Lab Results Component Value Date TSH 1.45 07/17/2023 Lab Results Component Value Date CHOL 150 03/21/2023 TRIG 61 03/21/2023 HDL 76 03/21/2023 LDLCALC 62 03/21/2023 No results found for: TROPONINT Telemetry: Cardiac Rhythm: Atrial flutter (07/20/23 0600) Cardiology Testing: ProBNP: EKG: Echocardiogram: Stress Test: Cardiac Cath: Impression: Elevated cardiac troponins likely due to multiple etiologies: underlying UTI/sepsis and also acute kidney injury. Now also has takotsubo cardiomyopathy with normal coronaries on yesterday's cardiac catheterization. Moderate to severe LV systolic dysfunction noted. [id number] MR on echo 18 July 2023. Atrial fibrillation, cardioverted yesterday to atrial flutter. Already on Eliquis 5 mg p.o. b.i.d. and we should continue. Chronic pain syndrome. Hypertension Plan: Continue with front loading a p.o. amiodarone. May move out to telemetry and this was discussed with Dr. Jean in person. Start Coreg 3.125 mg p.o. b.i.d.. Start Entresto p.o. b.i.d.. Wearable defibrillator on discharge. Continue with Eliquis 5 mg p.o. b.i.d.. CC: Tristan Watson MD Masetti, Paolo, MD RETE TESTER * Ale Lord, PT - 07/19/2023 12:57 PM CST Physical Therapy Unavailable, getting ready to have midline changed to PICC Ale Lord, PT 07/19/23 12:58 PM RETE TESTER * Pamela Barrett, [facility] - 07/19/2023 9:53 AM CST Increase apixaban 2.5 mg PO BID to 5 mg PO BID (<80 years old (78 years old); weight>60 kg (135.2 kg); Scr<1.5 (0.77) RETE TESTER * Maciel Jean MD - 07/19/2023 9:16 AM CST Progress Note Critical Care Subjective: Awake Chief complaint of respiratory failure Interval History: 80-year-old female admitted with shortness of breath TOÑA UTI NSTEMI treated with IVF antibiotics history of morbid obesity COPD HTN CKD hypothyroidism depression chronic pain underwent cardiac catheterization showing normal coronaries EF 20 percent. Continue amiodarone digoxin for atrial fibrillation start anticoagulation advance diet. Review of Systems All other systems reviewed and are negative. Medications: buPROPion SR, 150 mg, oral, BID cefTRIAXone, 1,000 mg, intravenous, Daily [START ON 07/20/2023] digoxin, 125 mcg, intravenous, Q24H SAL digoxin, 500 mcg, intravenous, Once enoxaparin, 40 mg, subcutaneous, Q12H [facility] famotidine, 20 mg, intravenous, Q24H SAL FLUoxetine, 40 mg, oral, Daily miconazole, , topical, BID psyllium (aspartame) SF, 1 packet, oral, Nightly sodium chloride 0.9%, 5-10 mL, intra-catheter, Q8H [facility] sodium phosphate - potassium phosphate, 250 mg, oral, TID with meals Subjective: Vitals: 24hr Min/Max: Temp Min: 35.9 ??C (96.7 ??F) Max: 36.2 ??C (97.2 ??F) Pulse Min: 79 Max: 111 BP Min: 100/73 Max: 131/93 Resp Min: 14 Max: 38 SpO2 Min: 91 % Max: 100 % Date 07/18/23699 - 07/19/2365807/19/23699 - 07/20/23 0659 Shift 0990-5613 2616-1952 24 Hour Total 7827-1979 6867-9325 24 Hour Total INTAKE P.O. 480 480 30 30 I.V.(mL/kg) 326(2.4) 562(4.2) 888(6.6) Shift Total(mL/kg) 806(6) 562(4.2) 1368(10.1) 30(0.2) 30(0.2) OUTPUT Urine(mL/kg/hr) 250(0.2) 500(0.3) 750(0.2) 75 75 Shift Total(mL/kg) 250(1.8) 500(3.7) 750(5.5) 75(0.6) 75(0.6) NET 556 62 618 -45 -45 Weight (kg) 135.2 135.2 135.2 135.2 135.2 135.2 Physical Exam Vitals and nursing note reviewed. HENT: Head: Normocephalic. Nose: Nose normal. Mouth/Throat: Mouth: Mucous membranes are moist. Eyes: Extraocular Movements: Extraocular movements intact. Cardiovascular: Rate and Rhythm: Tachycardia present. Rhythm irregular. Heart sounds: Normal heart sounds. Pulmonary: Effort: Pulmonary effort is normal. Abdominal: Palpations: Abdomen is soft. Musculoskeletal: Cervical back: Neck supple. Right lower leg: Edema present. Left lower leg: Edema present. Skin: Capillary Refill: Capillary refill takes 2 to 3 seconds. Neurological: General: No focal deficit present. Mental Status: She is alert. Mental status is at baseline. Lab/Radiology/Diagnostic Review: Lab Results Component Value Date WBC 17.4 (H) 07/17/2023 HGB 13.4 07/17/2023 HCT 40.1 07/17/2023 LABPLAT 271 07/17/2023 CHOL 150 03/21/2023 TRIG 61 03/21/2023 HDL 76 03/21/2023 LDLDIRECT 65 05/21/2021 ALT 15 07/19/2023 AST 23 07/19/2023 SODIUM 133 (L) 07/19/2023 POTASSIUM 3.6 07/19/2023 CHLORIDE 95 (L) 07/19/2023 CREATININE 0.77 07/19/2023 BUNSER 20 07/19/2023 CO2 24 07/19/2023 TSH 1.45 07/17/2023 INR 1.26 (H) 07/17/2023 HGBA1C 5.1 11/20/2021 A/P: Principal Problem: Vomiting and diarrhea Active Problems: NSTEMI (non-ST elevated myocardial infarction) (CMS/HCC) (HCC) Takotsubo cardiomyopathy 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 Critical care time was exclusive of separately billable procedures, treating other patients and teaching time. Maciel Jean MD RETE TESTER * Wan Nava, [facility] - 07/19/2023 7:34 AM CST Pharmacy Consult -Electrolyte Replacement Protocol (in patients not receiving parenteral nutrition) Pharmacist managed electrolyte replacement protocol has been ordered by Dr. Soriano . Exclusion criteria to the pharmacist managed electrolyte protocol (If any present, then please contact the provider to notify them of the applicable exclusion criteria) No Monitoring Guidelines: Electrolyte levels will be ordered by providers as needed. Pertinent Lab Results: Lab Results Component Value Date SODIUM 133 (L) 07/19/2023 POTASSIUM 3.6 07/19/2023 MAGNESIUM 2.0 07/18/2023 PHOS 2.4 07/19/2023 CALCIUM 9.0 07/19/2023 ALBUMIN 3.0 (L) 07/19/2023 Corrected Calcium = 9.8 mg/dl Lab Results Component Value Date CREATININE 0.77 07/19/2023 CREATININE 0.84 07/18/2023 CREATININE 1.15 (H) 07/17/2023 IV or PO repletion will be ordered by the pharmacist when levels fall below the desired range basedon the diet ordered. The following electrolyte replacement orders were placed: K-Phos Neutral 250 mg orally tid X 3 doses today per electrolyte replacement protocol for Phosphorous =2.4 on 07/19/23 Table 1. Serum Potassium (mmol/L) Creatinine Clearance (mL/min) Potassium Replacement 3.3 to 3.5 CrCl > 30 Potassium chloride 20 mEq IV, PO, or per tube for 1 dose CrCl < 30 No replacement 3.0 to 3.2 CrCl > 30 Potassium chloride 40 mEq IV, PO, or per tube for 1 dose CrCl < 30 Potassium chloride 20 mEq IV, PO, or per tube for 1 dose 2.6 to 2.9 CrCl > 30 Potassium chloride 60 mEq IV, PO, or per tube for 1 dose CrCl < 30 Potassium chloride 40 mEq IV, PO, or per tube for 1 dose < 2.6 CrCl > 30 Potassium chloride 60 mEq IV for 1 dose, Repeat level 2 hours after infusion complete, and contact provider CrCl < 30 Potassium chloride 40 mEq IV for 1 dose, Repeat level 2 hours after infusion complete, and contact provider *Normal S. Potassium range 3.3 - 5.1 mmol/L a. Limit potassium chloride to 40 mEq in a single IVPB. Table 2. Ionized calcium (mg/dL) Corrected Serum Calcium (mg/dL) Calcium Replacement 3.01 to 4.49 7.6 to 8.4 Calcium carbonate 500 mg (elemental calcium) PO or per tube TID for 3 doses Or Calcium gluconate 1 g IV for 1 dose < 3 < 7.5 Calcium gluconate 2 g IV for 1 dose Repeat level 4 hours after infusion complete and contact provider *Normal S. Calcium range 8.6 - 10.3 mg/dL a. Serum calcium must be corrected for hypoalbuminemia based on the following equation: Corrected serum calcium = 0.8(4 - Albumin) + Calcium b. Ionized calcium is preferred over serum calcium if both are available c. Calcium carbonate may be administered as a tablet or as the suspension Table 3. Serum Magnesium (mg/dL) Creatinine Clearance (mL/min) Magnesium Replacement 1.0 to 1.5 CrCl > 30 Magnesium oxide 400 mg PO TID x 3 doses Or Magnesium sulfate 2g IV for 1 dose CrCl < 30 Magnesium oxide 400 mg PO TID x 3 doses Or Magnesium sulfate 1g IV for 1 dose <1.0 CrCl > 30 Magnesium sulfate 4g IV for 1 dose Repeat level 2 hours after infusion complete and contact provider CrCl < 30 Magnesium sulfate 2g IV for 1 dose Repeat level 2 hours after infusion complete and contact provider *Normal S. Magnesium range 1.6-2.6 mg/dL Table 4. Serum Phosphorus (mg/dL) Serum Potassium (mmol/L) Oral or per tube Phosphate Replacement 2 to 2.5 > 3.5 K-Phos Neutral 1 tablet (8 mmol) PO or per tube TID x 3 doses < 3.5 Phos NaK 1 packet (8 mmol) PO or per tube TID x 3 doses 1.6 to 1.9 > 3.5 K-Phos Neutral 2 tablets (16 mmol) PO or per tube TID x 3 doses < 3.5 Phos NaK 2 packets (16 mmol) PO or per tube TID x 3 doses < 1.6 Go to the intravenous phosphate replacement table (Table 5) *Normal S. Phosphorus range 2.5 - 4.5 mg/dL a. If potassium is provided as part of the above phosphorus replacement, then count this as part ofthe potassium replacement in Table 1. b. Each K-Phos Neutral tablet contains elemental phosphorus 250 mg (8 mmol), potassium 45 mg (1.1 mEq), and sodium 298 mg (13 mEq). c. Each Phos-NaK packet contains elemental phosphorus 250 mg (8 mmol), potassium 280 mg (7.1 mEq), and sodium 160 mg (6.9 mEq). Table 5. Serum Phosphorus (mg/dL) Intravenous Phosphate Replacement 2 to 2.5 Phosphate 0.16 mmol/kgb IV for 1 dose 1.6 to 1.9 Phosphate 0.32 mmol/kgb IV for 1 dose < 1.6 Phosphate 0.64 mmol/kgb IV for 1 dose Repeat level 4 hours after infusion complete and contact provider *Normal S. Phosphorus range 2.5 - 4.5 mg/dL a. Formulation (sodium or potassium salt) will be determined by potassium requirements as determined in Table 1. b. If potassium is provided as part of the above phosphorus replacement, then count this as part ofthe potassium replacement in Table 1. Each mmol of IV potassium phosphate contains 1.5 mEq of potassium. b. Round to the nearest 5 mmol phosphate. Limit phosphate repletion to 30 mmoles in a single IVPB. c. Use adjusted body weight for patients with a BMI > 30 Thank you, Wan Nava [facility] RETE TESTER * Roly Husain MD - 07/19/2023 7:05 AM CST Cardiology Progress Note 07/19/23 Chief complaint: Shortness of breath Symptoms: Patient was found lying in bed sleeping. When awakened, she denied any problems in the right wrist. Denied any palpitations despite having slightly fast atrial fibrillation. We discussed yesterday's cardiac catheterization findings. Also discussed yesterday's very poor LV function on echo--she will need a wearable defibrillator. Will also likely need full-dose oral anticoagulation. Vital Signs: Vitals: 07/19/23 0300 07/19/23 0400 07/19/23 0500 07/19/23 0600 BP: 108/74 109/74 106/71 108/77 BP Location: Left arm Left arm Left arm Patient Position: Lying Lying Lying Pulse: 79 98 96 104 Resp: 25 Temp: 36.1 ??C (97 ??F) TempSrc: Temporal SpO2: 100% 99% 99% 96% Weight: Height: Intake/Output Summary (Last 24 hours) at 07/19/2023 0705 Last data filed at 07/19/2023 0400 Gross per 24 hour Intake 1367.96 ml Output 750 ml Net 617.96 ml Wt Readings from Last 3 Encounters: 07/18/23 135.2 kg (298 lb) 03/28/23 131.1 kg (289 lb) 09/20/22 131.1 kg (289 lb) Temp Min: 35.9 ??C (96.7 ??F) Max: 36.1 ??C (97 ??F) Pulse Min: 79 Max: 111 BP Min: 94/61 Max: 131/93 Resp Min: 14 Max: 38 SpO2 Min: 91 % Max: 100 % Physical Exam: Lungs: Clear to auscultation and percussion. Respirations unlabored Cardiac: Irregularly irregular and somewhat fast. Abd: Soft, nontender, BS active, no hepatosplenomegaly or masses, no abdominal bruit or enlarged aortic pulsation Extremities: Good pulse in the right radial area. Current Medications: Current Facility-Administered Medications Medication Dose Route Frequency Provider Last Rate Last Admin acetaminophen (TYLENOL) tablet 650 mg 650 mg oral Q4H PRN Maciel Jean MD buPROPion SR (WELLBUTRIN SR) 12 hour tablet 150 mg 150 mg oral BID Maciel Jean MD 150 mg at 07/18/23 0840 cefTRIAXone (ROCEPHIN) 1,000 mg/10 mL in sterile water (premix) 1,000 mg 1,000 mg intravenous DailyCrossvilleSilvia MD 1,000 mg at 07/18/23 0841 dextrose 5% and sodium chloride 0.45% infusion (premix) 100 mL/hr intravenous Continuous Maciel Jean MD 100 mL/hr at 07/18/23 0841 100 mL/hr at 07/18/23 0841 enoxaparin (LOVENOX) syringe 40 mg 40 mg subcutaneous Daily-2100 Maciel Jean MD 40 mg at 07/17/232206 famotidine (PEPCID) injection 20 mg 20 mg intravenous Q24H SAL Maciel Jean MD 20 mg at FLUoxetine (PROzac) capsule 40 mg 40 mg oral Daily Maciel Jean MD 40 mg at 07/18/23 0840 HYDROcodone-acetaminophen (NORCO) 5-325 mg per tablet 1 tablet 1 tablet oral Q4H PRN Maciel Jean MD 1 tablet at 07/18/23 0520 influenza quadrivalent [id number] (FLUZONE HIGH DOSE) 240 mcg/0.7 mL vaccine (HIGH DOSE age 65 yearsand up) 0.7 mL 0.7 mL intramuscular During hospitalization Maciel Jean MD miconazole 2 % powder topical BID Maciel Jean MD Given at 07/18/23 0852 ondansetron (ZOFRAN) injection 4 mg 4 mg intravenous Q4H PRN Maciel Jean MD 4 mg at 07/18/23 0926 psyllium (aspartame) SF (METAMUCIL SF) 3.4 gram packet 1 packet 1 packet oral Nightly Maciel Jean MD Labs: Recent Labs Lab Units 07/18/23 0334 07/17/23 0511 07/16/233 SODIUM mmol/L 140 138 131* POTASSIUM PLASMA mmol/L 3.8 3.8 5.3* CHLORIDE mmol/L 101 100 94* CO2 mmol/L 30 25 21* BUN SERUM mg/dL 19 18 15 CREATININE mg/dL 0.84 1.15* 0.82 [id number] mL/min/1.73 m2 72 49 74 GLUCOSE mg/dL 107 163 240* CALCIUM mg/dL 8.8 9.4 9.2 ALBUMIN g/dL 2.9* 3.2* 3.1* PHOSPHORUS PLASMA mg/dL 2.6 3.2 -- Recent Labs Lab Units 07/18/23 0334 07/17/23 0511 07/16/23 2203 ALK PHOS Units/L 119 139* 154* BILIRUBIN TOTAL mg/dL 0.3 0.4 0.5 TOTAL PROTEIN g/dL 6.9 7.4 7.6 ALT Units/L 13 14 14 AST Units/L 23 22 22 Recent Labs Lab Units 07/17/23 0442 07/16/23 2203 WBC K/cumm 17.4* 16.6* HEMOGLOBIN g/dL 13.4 14.0 HEMATOCRIT % 40.1 41.8 PLATELETS K/cumm 271 354 Recent Labs Lab Units 07/17/23 0254 INR 1.26* Lab Results Component Value Date TSH 1.45 07/17/2023 Lab Results Component Value Date CHOL 150 03/21/2023 TRIG 61 03/21/2023 HDL 76 03/21/2023 LDLCALC 62 03/21/2023 No results found for: TROPONINT Telemetry: Cardiac Rhythm: Atrial fibrillation (07/19/23 0600) Cardiology Testing: ProBNP: EKG: Echocardiogram: Stress Test: Cardiac Cath: Impression: Elevated cardiac troponins likely due to multiple etiologies: underlying UTI/sepsis and also acute kidney injury. Now also has takotsubo cardiomyopathy with normal coronaries on yesterday's cardiac catheterization. Moderate to severe LV systolic dysfunction noted. [id number] MR on echo 18 July 2023. Atrial fibrillation of new onset, now with RVR. Chronic pain syndrome. Hypertension Plan: Continue IV amiodarone for now. Supportive care as per Dr. Jean--discussed case with him in person.. Start guideline directed medical therapy soon for severe LV dysfunction at low doses. Wearable defibrillator on discharge. Full-dose oral anticoagulation on discharge. CC: Tristan Watson MD Masetti, Paolo, MD RETE TESTER * Alvarez Toledo, PT - 07/18/2023 2:44 PM CST Physical Therapy 07/18/23 1444 General PT Missed Visit Reason Procedure/testing/appointment (Patient heading down to get a cardiac Cath, Will check on tomorrow if appropriate) RETE TESTER * Roly Husain MD - 07/18/2023 10:52 AM CST Cardiology Progress Note 07/18/23 Chief complaint: Symptoms: Vital Signs: Vitals: 07/18/23 0600 07/18/23 0700 07/18/23 0800 07/18/23 0900 BP: 107/77 123/75 94/61 116/72 BP Location: Right arm Right arm Right arm Patient Position: Lying Lying Lying Pulse: 87 89 92 96 Resp: 28 24 26 20 Temp: (!) 35.9 ??C (96.7 ??F) TempSrc: Temporal SpO2: 99% 98% 97% 99% Weight: 135.2 kg (298 lb) Height: 152.4 cm (5') Intake/Output Summary (Last 24 hours) at 07/18/2023 1052 Last data filed at 07/18/2023 1005 Gross per 24 hour Intake 590 ml Output 600 ml Net -10 ml Wt Readings from Last 3 Encounters: 07/18/23 135.2 kg (298 lb) 03/28/23 131.1 kg (289 lb) 09/20/22 131.1 kg (289 lb) Temp Min: 35.9 ??C (96.7 ??F) Max: 36.9 ??C (98.4 ??F) Pulse Min: 75 Max: 96 BP Min: 64/49 Max: 160/61 Resp Min: 9 Max: 30 SpO2 Min: 93 % Max: 100 % Physical Exam: Lungs: Clear to auscultation and percussion. Respirations unlabored Cardiac: PMI and JVP normal, S1 and S2 normal, no murmur, no gallop or rub Abd: Soft, nontender, BS active, no hepatosplenomegaly or masses, no abdominal bruit or enlarged aortic pulsation Extremities: No clubbing, cyanosis. No edema. Femoral pulses 2+. Pedal pulses 2+ Current Medications: Current Facility-Administered Medications Medication Dose Route Frequency Provider Last Rate Last Admin acetaminophen (TYLENOL) tablet 650 mg 650 mg oral Q4H PRN Maciel Jean MD buPROPion SR (WELLBUTRIN SR) 12 hour tablet 150 mg 150 mg oral BID Maciel Jean MD 150 mg at 07/18/23 0840 cefTRIAXone (ROCEPHIN) 1,000 mg/10 mL in sterile water (premix) 1,000 mg 1,000 mg intravenous DailyCrossvilleSilvia MD 1,000 mg at 07/18/23 0841 dextrose 5% and sodium chloride 0.45% infusion (premix) 100 mL/hr intravenous Continuous Maciel Jean MD 100 mL/hr at 07/18/23 0841 100 mL/hr at 07/18/23 0841 enoxaparin (LOVENOX) syringe 40 mg 40 mg subcutaneous Daily-2100 Maciel Jean MD 40 mg at 07/17/232206 famotidine (PEPCID) injection 20 mg 20 mg intravenous Q24H [facility] Maciel Jean MD 20 mg at 840 FLUoxetine (PROzac) capsule 40 mg 40 mg oral Daily Maciel Jean MD 40 mg at 07/18/23 0840 HYDROcodone-acetaminophen (NORCO) 5-325 mg per tablet 1 tablet 1 tablet oral Q4H PRN Maciel Jean MD 1 tablet at 07/18/23 0520 influenza quadrivalent [id number] (FLUZONE HIGH DOSE) 240 mcg/0.7 mL vaccine (HIGH DOSE age 65 yearsand up) 0.7 mL 0.7 mL intramuscular During hospitalization Maciel Jean MD miconazole 2 % powder topical BID Maciel Jean MD Given at 07/18/23 0852 ondansetron (ZOFRAN) injection 4 mg 4 mg intravenous Q4H PRN Maciel Jean MD 4 mg at 07/18/23 0926 psyllium (aspartame) SF (METAMUCIL SF) 3.4 gram packet 1 packet 1 packet oral Nightly Maciel Jean MD Labs: Recent Labs Lab Units 07/18/23 0334 07/17/23 0511 07/16/23 2203 SODIUM mmol/L 140 138 131* POTASSIUM PLASMA mmol/L 3.8 3.8 5.3* CHLORIDE mmol/L 101 100 94* CO2 mmol/L 30 25 21* BUN SERUM mg/dL 19 18 15 CREATININE mg/dL 0.84 1.15* 0.82 [id number] mL/min/1.73 m2 72 49 74 GLUCOSE mg/dL 107 163 240* CALCIUM mg/dL 8.8 9.4 9.2 ALBUMIN g/dL 2.9* 3.2* 3.1* PHOSPHORUS PLASMA mg/dL 2.6 3.2 -- Recent Labs Lab Units 07/18/23 0334 07/17/23 0511 07/16/23 2203 ALK PHOS Units/L 119 139* 154* BILIRUBIN TOTAL mg/dL 0.3 0.4 0.5 TOTAL PROTEIN g/dL 6.9 7.4 7.6 ALT Units/L 13 14 14 AST Units/L 23 22 22 Recent Labs Lab Units 07/17/23 0442 07/16/23 2203 WBC K/cumm 17.4* 16.6* HEMOGLOBIN g/dL 13.4 14.0 HEMATOCRIT % 40.1 41.8 PLATELETS K/cumm 271 354 Recent Labs Lab Units 07/17/23 0254 INR 1.26* Lab Results Component Value Date TSH 1.45 07/17/2023 Lab Results Component Value Date CHOL 150 03/21/2023 TRIG 61 03/21/2023 HDL 76 03/21/2023 LDLCALC 62 03/21/2023 No results found for: TROPONINT Telemetry: Cardiac Rhythm: Normal sinus rhythm (07/18/23 0900) Cardiology Testing: ProBNP: EKG: Echocardiogram: Stress Test: Cardiac Cath: Impression: Elevated cardiac troponins likely due to multiple etiologies: underlying UTI/sepsis and also acute kidney injury. Creatinine has gone back down to normal. Patient already getting IV ceftriaxone for infection. We should get an echo to see if there is any wall motion abnormalities. EKG was unremarkable other than accelerated junctional rhythm. [id number] MR on echo 18 April 2019. Chronic pain syndrome. Hypertension Plan: Echocardiogram today. Supportive care as per Dr. Jean. CC: Tristan Watson MD Kim, Eileen H., MD RETE TESTER * Maciel Jean MD - 07/18/2023 7:52 AM CST Progress Note Critical Care Subjective: Awake Chief complaint of UTI Interval History: 78-year-old female admitted with shortness of breath dehydration TOÑA UTI troponin elevations treated with IVF antibiotics history of morbid obesity COPD HTN CKD hypothyroidism depression chronic pain. Continue antibiotics IVF advance diet. Review of Systems All other systems reviewed and are negative. Medications: buPROPion SR, 150 mg, oral, BID cefTRIAXone, 1,000 mg, intravenous, Daily enoxaparin, 40 mg, subcutaneous, Daily-2100 famotidine, 20 mg, intravenous, Q24H SAL FLUoxetine, 40 mg, oral, Daily miconazole, , topical, BID psyllium (aspartame) SF, 1 packet, oral, Nightly Subjective: Vitals: 24hr Min/Max: Temp Min: 36.1 ??C (97 ??F) Max: 36.9 ??C (98.4 ??F) Pulse Min: 75 Max: 88 BP Min: 64/49 Max: 160/61 Resp Min: 9 Max: 32 SpO2 Min: 93 % Max: 100 % Date 07/17/23 07 - 07/18/23 0659 07/18/23699 - 07/19/23 0659 Shift [id number] 2536-2672 24 Hour Total 2711-2478 5999-4607 24 Hour Total INTAKE P.O. 350 350 Shift Total(mL/kg) 350(2.6) 350(2.6) OUTPUT Urine(mL/kg/hr) 340(0.2) 275(0.2) 615(0.2) Shift Total(mL/kg) 340(2.5) 275(2) 615(4.5) NET -340 75 -265 Weight (kg) 135.4 135.4 135.4 135.4 135.4 135.4 Physical Exam Vitals and nursing note reviewed. HENT: Head: Normocephalic. Nose: Nose normal. Mouth/Throat: Mouth: Mucous membranes are moist. Eyes: Extraocular Movements: Extraocular movements intact. Cardiovascular: Rate and Rhythm: Normal rate and regular rhythm. Pulmonary: Effort: Pulmonary effort is normal. Breath sounds: Normal breath sounds. Abdominal: Palpations: Abdomen is soft. Musculoskeletal: Cervical back: Neck supple. Right lower leg: Edema present. Left lower leg: Edema present. Skin: General: Skin is warm. Capillary Refill: Capillary refill takes 2 to 3 seconds. Neurological: General: No focal deficit present. Mental Status: She is alert. Psychiatric: Mood and Affect: Mood normal. 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 Critical care time was exclusive of separately billable procedures, treating other patients and teaching time. Maciel Jean MD RETE TESTER documented in this encounter H&P Notes * Maciel Jean MD - 07/17/2023 6:54 AM CST Consult Note Patient Name: Pebbles Lal Date of : 1945 Primary Physician: Tristan Watson MD Requesting Physician: Emergency department Admission Date: 07/16/2023 Length of Stay: 0 Chief Complaint Respiratory failure UTI NSTEMI HPI Pebbles Lal is a 78 y.o. female seen in consultation for shortness of breath dehydration GI symptoms respiratory failure UTI and troponin elevations. The patient is seen in the ICU after transferring from the ED where she had been taken complaining of nausea vomit found to be hypoxic by EMT. She lives at home with and family has no significant history of smoking alcohol or drugs has morbid obesity asthma COPD hypertension chronic kidney disease hypothyroidism depression chronic pain syndrome. She was placed on oxygen nasal cannula also found to have elevated troponins possibly from NSTEMI and elevated demand and also with bacteriuria and UTI. Was started on antibiotics transferred to ICU with pending echocardiography study. 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 HX OTHER MEDICAL IGT Hypertension Moderate episode of recurrent major depressive disorder (HCC) 12/05/2017 Past Surgical History Past Surgical History: Procedure Laterality Date RHINOPLASTY RHINOPLASTY Medications Medications Prior to Admission Medication Sig Dispense Refill Last Dose albuterol HFA (ProAir HFA) 90 mcg/actuation inhaler Inhale 2 puffs every 4 (four) hours as needed for shortness of breath As needed for wheezing 3 each 3 atorvastatin (LIPITOR) 10 mg tablet TAKE 1/2 TABLET BY MOUTH EVERY DAY 45 tablet 3 buPROPion SR (ZYBAN) 150 mg 12 hr tablet Take 1 tablet (150 mg total) by mouth 2 (two) times a day 180 tablet 3 cloNIDine (CATAPRES) 0.1 mg tablet TAKE 1 TABLET(0.1 MG) BY MOUTH TWICE DAILY 180 tablet 3 fluticasone propion-salmeteroL (Advair Diskus) 250-50 mcg/dose diskus inhaler Inhale 1 puff 2 (two)times a day Rinse mouth with water after use to reduce aftertaste and incidence of candidiasis. Donot swallow. 3 each 3 irbesartan (AVAPRO) 300 mg tablet TAKE 1 TABLET BY MOUTH EVERY DAY 90 tablet 3 loratadine (CLARITIN) 10 mg tablet Take 1 tablet (10 mg total) by mouth daily 90 tablet 3 propranolol LA (INDERAL LA) 60 mg 24 hr capsule Take 1 capsule (60 mg total) by mouth daily 90 capsule 3 Allergies Allergies Allergen Reactions Quinapril Other (See comments) Reaction: swollen mouth, Family History Family History Problem Relation Age of Onset Dementia Mother Dementia; Hypertension Mother Hypertension; Depression Mother Depression; Dementia Father Dementia; Hypertension Father Hypertension; Hypertension Brother Hypertension; Social History Social History Tobacco Use Smoking status: Never Smokeless tobacco: Never Substance and Sexual Activity Drug use: No Sexual activity: Defer Alcohol Use: Not At Risk (07/17/2023) AUDIT-C Frequency of Alcohol Consumption: Never Average Number of Drinks: Patient does not drink Frequency of Binge Drinking: Never ROS Review of Systems All other systems reviewed and are negative. Objective Vitals: 07/17/23 0400 07/17/23 0415 07/17/23 0500 07/17/23 0600 BP: 111/68 121/71 122/82 119/90 BP Location: Right arm Right arm Right arm Right arm Patient Position: Lying Lying Lying Lying Pulse: 90 88 84 83 Resp: 26 30 (!) 31 28 Temp: 36.7 ??C (98.1 ??F) TempSrc: Temporal SpO2: 98% 98% 98% 99% Weight: 135.4 kg (298 lb 8.1 oz) Height: 152.4 cm (5') Physical Exam Vitals and nursing note reviewed. Constitutional: Appearance: She is obese. HENT: Head: Normocephalic. Nose: Nose normal. Mouth/Throat: Mouth: Mucous membranes are moist. Eyes: Extraocular Movements: Extraocular movements intact. Cardiovascular: Rate and Rhythm: Normal rate and regular rhythm. Heart sounds: Normal heart sounds. Pulmonary: Effort: Pulmonary effort is normal. Breath sounds: Normal breath sounds. Abdominal: Palpations: Abdomen is soft. Musculoskeletal: Cervical back: Neck supple. Right lower leg: Edema present. Left lower leg: Edema present. Skin: General: Skin is warm. Neurological: General: No focal deficit present. Psychiatric: Mood and Affect: Mood normal. Diagnostics Recent Results (from the past 24 hour(s)) CBC with auto differential Collection Time: 07/16/23 10:03 PM Result Value Ref Range WBC 16.6 (H) 3.8 - 9.9 K/cumm Hgb 14.0 11.9 - 15.5 g/dL Hct 41.8 35.6 - 45.5 % Plt 354 150 - 400 K/cumm MPV 9.1 9.1 - 12.3 fL RBC 4.43 3.90 - 5.20 M/cumm MCV 94.4 81.3 - 96.4 fL MCH 31.6 27.1 - 33.3 pg MCHC 33.5 32.3 - 35.7 g/dL RDW CV 13.8 11.1 - 14.9 % RDW SD 48.1 35.7 - 48.1 fL NRBC abs 0.00 0.00 - 0.01 K/cumm Comprehensive metabolic panel Collection Time: 07/16/23 10:03 PM Result Value Ref Range Sodium 131 (L) 135 - 145 mmol/L Potassium, pl 5.3 (H) 3.3 - 4.9 mmol/L Chloride 94 (L) 97 - 110 mmol/L CO2 21 (L) 22 - 32 mmol/L Anion gap 15 2 - 15 mmol/L BUN 15 6 - 25 mg/dL Creatinine 0.82 0.60 - 1.10 mg/dL Glucose 240 (H) 70 - 199 mg/dL Calcium 9.2 8.5 - 10.3 mg/dL Bilirubin, total 0.5 0.1 - 1.2 mg/dL Protein, pl 7.6 6.5 - 8.5 g/dL Albumin 3.1 (L) 3.5 - 5.0 g/dL Alk phos 154 (H) 40 - 130 Units/L ALT 14 7 - 45 Units/L AST 22 10 - 45 Units/L Lipase Collection Time: 07/16/23 10:03 PM Result Value Ref Range Lipase 13 10 - 99 Units/L Influenza A/B, RSV, and COVID-19 PCR Nasopharyngeal Collection Time: 07/16/23 10:03 PM Specimen: Nasopharyngeal Result Value Ref Range COVID-19 RNA Negative Negative Influenza A RNA Negative Negative Influenza B RNA Negative Negative RSV RNA Negative Negative Differential, auto Collection Time: 07/16/23 10:03 PM Result Value Ref Range Neutrophil abs 13.6 (H) 1.5 - 6.5 K/cumm Imm gran abs 0.3 (H) 0.0 - 0.1 K/cumm Lymphocyte abs 1.2 0.8 - 3.3 K/cumm Monocyte abs 1.3 (H) 0.2 - 0.8 K/cumm Eosinophil abs 0.0 0.0 - 0.5 K/cumm Basophil abs 0.2 (H) 0.0 - 0.1 K/cumm Neutrophil pct 81.7 % Imm gran pct 2.0 % Lymphocyte pct 7.4 % Monocyte pct 7.9 % Eosinophil pct 0.1 % Basophil pct 0.9 % Pro B-type natriuretic peptide Collection Time: 07/16/23 10:03 PM Result Value Ref Range NT-proBNP 1,392 (H) <=450 pg/mL eGFR Collection Time: 07/16/23 10:03 PM Result Value Ref Range eGFR 74 mL/min/1.73 m2 Troponin T high-sensitivity series (baseline, 2hr, 4hr, 6hr) Collection Time: 07/16/23 10:49 PM Result Value Ref Range Trop T hs 57 (H) <=14 ng/L Troponin T high-sensitivity 2-hour Collection Time: 07/17/23 12:35 AM Result Value Ref Range Trop T hs 226 (Critical) <=14 ng/L Trop T hs delta 169 (Critical) ng/L Trop T hs interp Significant (Critical) Urinalysis reflex to microscopic and culture Urine Collection Time: 07/17/23 12:35 AM Specimen: Urine Result Value Ref Range Color, ur Yellow Yellow Clarity, ur Turbid (A) Clear Specific gravity, ur 1.015 1.003 - 1.030 pH, urine 5.5 Protein, ur ql 2+ (A) Negative Glucose, ur ql Negative Negative Ketones, ur Negative Negative Bilirubin, ur Negative Negative Blood, ur 3+ (A) Negative Urobilinogen, ur <2.0 <2.0 mg/dL Nitrite, ur Negative Negative Leukocyte esterase, ur 4+ (A) Negative UA reflex comment Reflex to microscopic UA will be performed. Urinalysis, microscopic only Collection Time: 07/17/23 12:35 AM Result Value Ref Range WBC, ur >50 (A) 0 - 5 /HPF RBC, ur 21-50 (A) 0 - 2 /HPF Epithelial cells, squamous, ur 1-5 0 - 5 /HPF Bacteria, ur 4+ (A) Yeast, ur 2+ (A) Mucous, ur Present (A) Culture Reflex Comment Reflex to urine culture will be performed. Sepsis Lactate w/ Reflex Collection Time: 07/17/23 1:34 AM Result Value Ref Range Sepsis Lactate 2.2 (H) 0.7 - 2.0 mmol/L Troponin T high-sensitivity 4-hour Collection Time: 07/17/23 2:54 AM Result Value Ref Range Trop T hs 369 (Critical) <=14 ng/L Trop T hs delta 312 (Critical) ng/L Trop T hs interp Significant (Critical) Protime-INR Collection Time: 07/17/23 2:54 AM Result Value Ref Range PT 14.4 (H) 10.3 - 13.7 sec INR 1.26 (H) 0.90 - 1.20 aPTT Collection Time: 07/17/23 2:54 AM Result Value Ref Range aPTT 38 28 - 38 sec Sepsis Lactate w/ Reflex Collection Time: 07/17/23 4:42 AM Result Value Ref Range Sepsis Lactate 1.7 0.7 - 2.0 mmol/L CBC with auto differential Collection Time: 07/17/23 4:42 AM Result Value Ref Range WBC 17.4 (H) 3.8 - 9.9 K/cumm Hgb 13.4 11.9 - 15.5 g/dL Hct 40.1 35.6 - 45.5 % Plt 271 150 - 400 K/cumm MPV 9.2 9.1 - 12.3 fL RBC 4.24 3.90 - 5.20 M/cumm MCV 94.6 81.3 - 96.4 fL MCH 31.6 27.1 - 33.3 pg MCHC 33.4 32.3 - 35.7 g/dL RDW CV 13.8 11.1 - 14.9 % RDW SD 47.7 35.7 - 48.1 fL NRBC abs 0.00 0.00 - 0.01 K/cumm Differential, auto Collection Time: 07/17/23 4:42 AM Result Value Ref Range Neutrophil abs 15.8 (H) 1.5 - 6.5 K/cumm Imm gran abs 0.2 (H) 0.0 - 0.1 K/cumm Lymphocyte abs 0.8 0.8 - 3.3 K/cumm Monocyte abs 0.5 0.2 - 0.8 K/cumm Eosinophil abs 0.0 0.0 - 0.5 K/cumm Basophil abs 0.1 0.0 - 0.1 K/cumm Neutrophil pct 90.8 % Imm gran pct 1.4 % Lymphocyte pct 4.4 % Monocyte pct 2.9 % Eosinophil pct 0.2 % Basophil pct 0.3 % Infection Prevention MRSA Only (Staphylococcus aureus) PCR Nasal Collection Time: 07/17/23 4:50 AM Specimen: Nasal Result Value Ref Range PCR Scrn, Methicillin resistant Staphylococcus aureus (MRSA) Not Detected Not Detected Comprehensive metabolic panel Collection Time: 07/17/23 5:11 AM Result Value Ref Range Sodium 138 135 - 145 mmol/L Potassium, pl 3.8 3.3 - 4.9 mmol/L Chloride 100 97 - 110 mmol/L CO2 25 22 - 32 mmol/L Anion gap 14 2 - 15 mmol/L BUN 18 6 - 25 mg/dL Creatinine 1.15 (H) 0.60 - 1.10 mg/dL Glucose 163 70 - 199 mg/dL Calcium 9.4 8.5 - 10.3 mg/dL Bilirubin, total 0.4 0.1 - 1.2 mg/dL Protein, pl 7.4 6.5 - 8.5 g/dL Albumin 3.2 (L) 3.5 - 5.0 g/dL Alk phos 139 (H) 40 - 130 Units/L ALT 14 7 - 45 Units/L AST 22 10 - 45 Units/L Phosphorus Collection Time: 07/17/23 5:11 AM Result Value Ref Range Phosphorus, pl 3.2 2.3 - 4.5 mg/dL Magnesium Collection Time: 07/17/23 5:11 AM Result Value Ref Range Magnesium 2.0 1.4 - 2.5 mg/dL Troponin T high-sensitivity 6-hour Collection Time: 07/17/23 5:11 AM Result Value Ref Range Trop T hs 350 (Critical) <=14 ng/L Trop T hs delta 293 (Critical) ng/L Trop T hs interp Significant (Critical) eGFR Collection Time: 07/17/23 5:11 AM Result Value Ref Range eGFR 49 mL/min/1.73 m2 No results found. No results found for this or any previous visit. Results for orders placed during the hospital encounter of 04/14/19 Transthoracic Echo Complete W Doppler/CF Narrative [address] [address] Echocardiogram Report Patient Name: PEBBLES LAL : 1945 Study Date: 04/18/2019 08:46:57 Gender: F Tech: [employer]OR [employer] Location: [place] [address] Ref.Provider: BREANNA BOSTON Height(Cm): 160 BSA: 2.41 Weight(Kg): 131.1 Quality: Adequate Order Provider: Ludy Procedures: Echocardiographic Report: Transthoracic echocardiogram with complete 2D, M-Mode, and color Doppler examination. Measurements: 2D/M Mode Doppler Measurement Value Normal Range Measurement Value Normal Range EF Teich MM 68.8 [ 55.0 - 70.0 ] percent DANIELLE Vmax 1.74 [ 2.00 - 4.00 ] cm2 LVIDd MM 4.87 [ 3.90 - 5.30 ] cm AV Mean PG 8 [ 2 - 4 ] mmHg LVIDs MM 2.99 [ 2.30 - 3.90 ] cm AV Peak Morales 1.89 [ 1.00 - 1.70 ] m/s LVPWd MM 1.36 [ 0.60 - 1.00 ] cm AV VTI 36.45 cm IVSd MM 1.36 [ 0.60 - 0.90 ] cm LVOT Diam 1.84 [ 1.70 - 2.10 ] cm LA Dimension MM 6.20 [ 2.70 - 3.80 ] cm LVOT Peak Morales 1.18 [ 0.70 - 1.10 ] m/s AoR Diam MM 3.36 [ 2.60 - 3.70 ] cm LVOT VTI 23.70 [ 20.00 - 30.00 ] cm ACS MM 2.03 cm MV E Peak Morales 1.29 [ 0.60 - 1.30 ] m/s MV A Peak Morales 0.22 [ 1.00 - 1.20 ] m/s MV Mean PG 2 [ <= 5 ] mmHg MV PHT 52 [ 20 - 100 ] msec MVA 4.20 MV Decel Time 180 [ 104 - 258 ] msec PV Peak Morales 1.36 [ 0.40 - 0.80 ] m/s TR Peak Morales 2.28 [ 1.00 - 2.80 ] m/s TR Peak PG 21 mmHg RVSP 31.00 [ 10.00 - 36.00 ] mmHg E' 0.17 E/E' 7.65 PA Pressure 21.00 [ 10.00 - 36.00 ] mmHg Findings: Atrial Septum: Normal atrial septum. Left Ventricle: Mild concentric left ventricular hypertrophy. Normal global left ventricular systolic function. Ejection fraction is visually estimated at 60 to 65 %. Left Atrium: The left atrium is normal in size. Right Ventricle: Normal right ventricular size. Right Atrium: The right atrium is normal in size. Aortic Valve: Normal structure of the aortic valve. Mitral Valve: Mild mitral annular calcification. Mild to moderate mitral valve regurgitation. Pulmonic Valve: Pulmonic valve not well visualized. Tricuspid Valve: Normal structure of the tricuspid valve. Trivial regurgitation in the tricuspid valve. Pericardium: Normal pericardium with no significant pericardial effusion. Aorta: Normal aortic root. IVC: Dilated IVC without respiratory collapse consistent with elevated right atrial pressure (>15 mmHg). Conclusions: Mild concentric left ventricular hypertrophy. Normal global left ventricular systolic function. Ejection fraction is visually estimated at 60 to 65 %. Mild mitral annular calcification. Mild to moderate mitral valve regurgitation. Normal structure of the aortic valve. Normal structure of the tricuspid valve. Trivial regurgitation in the tricuspid valve. Electronically Signed By: Dr Roly Husain 2019-04-18 13:49:45 CDT Problem List Principal Problem: Vomiting and diarrhea Assessment/Plan 78 y.o. female seen in consultation for respiratory failure NSTEMI UTI. PLAN: ICU admission observation GI protection prophylaxis Glycemia control with insulin as needed DVT precautions Pulmonary toilet bronchodilators Thyroid adrenal assessment IV fluids Nausea control 2D echocardiogram Repeat labs Thanks for allowing us to see this patient we will follow in the ICU as needed. Critical Care Time: I have spent 50 minutes in full attendance with this critically ill patient making frequent reassessments and decisions regarding this patient's complex medical care. Critical care time was exclusive of separately billable procedures, treating other patients and teaching time. Maciel Jean MD 07/17/2023 6:54 AM RETE TESTER * Gianluca Soriano MD PhD - 07/17/2023 2:00 AM CST Tele-Critical Care Consult Note HPI: Pebbles Lal is a 78 y.o. female with a PMH of lymphedema who presented to the ED with nausea, emesis and diarrhea as well as a room air SpO2 of 89%. Aside from her hypoxia she in in NSR and neither hypo- or hypertensive. Her ED workup demonstrated so mild pulmonary edema, a NT pro-BNP of 1392 and a mild troponin elevation of 57 -> 226. Her CBC is remarkable for a leukocytosis and her UA was indicative of pyuria and has reflexed to culture. Blood cultures were obtained, and a AUTOMAT[employer]OR [employer] swab RVP was negative. She is being admitted to the ICU for close observation. Camera exam: Morbidly obese elderly lady supine in hospital bed. No acute distress, converses in complete sentences. Assessment / Recommendations: Neurologic: # depression - patient states she is on clonidine and bupropion at home for depression - will hold home bupropion and clonidine in acute setting Cardiovascular: # hypotension - suspect artifactual secondary to inability to properly measure given patient's bodyhabitus # troponin bump - possible NSTEMI from demand ischemia, no concerning EKG changes, patient denies chest pain - hold home antihypertensives in the setting of measured hypotension - comprehensive echocardiogram ordered for today - per ED MD who spoke with cardiology the sheet metal supervisor felt enoxaparin was sufficient and the patient didn't need a heparin infusion Pulmonary: # respiratory insufficiency - POA, patient with room air SpO2 of 89% recovered well with NC - continue NC, titrate for SpO2 > 92% GI: # nausea, emesis - POA, resolved - will continue to monitor Renal: # CKD - continue to monitor with daily BMP, replete electrolytes per local protocol Hematology: no acute issues ID: # leukocytosis # UTI - continue ceftriaxone - follow-up urine and blood cultures Endocrine: no acute issues Musculoskeletal: no acute issues ICU Best practice: Head of Bed >30deg: Yes DVT prophylaxis: enoxaparin Stress ulcer prophylaxis: none indicated Nutrition: regular diet Glycemic control: per local protocol Goals of care: Patient stated she wishes to be DNR/DNI Dispo: ICU for close monitoring I have reviewed the patient's available chart history, labs, radiographic images, medications, and other pertinent items in the EMR while monitoring the patient remotely. I will discuss/have discussed my tele-critical care consult recommendations with the hospitalist/SALVADOR managing this patient. ROS: Review of Systems - Negative for fevers, chills, night sweats, cough, chest pain. Patient endorses allergy symptoms, and prior nausea/vomiting, and constipation. 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 HX OTHER MEDICAL IGT Hypertension Moderate episode of recurrent major depressive disorder ([facility]) 12/05/2017 Past Surgical History: Procedure Laterality Date RHINOPLASTY RHINOPLASTY HOME MEDICATIONS : albuterol HFA (ProAir HFA) 90 mcg/actuation inhaler atorvastatin (LIPITOR) 10 mg tablet buPROPion SR (ZYBAN) 150 mg 12 hr tablet cloNIDine (CATAPRES) 0.1 mg tablet cyanocobalamin (Vitamin B-12) 500 mcg tablet FLUoxetine (PROzac) 40 mg capsule fluticasone propion-salmeteroL (Advair Diskus) 250-50 mcg/dose diskus inhaler fluticasone propionate (FLONASE) 50 mcg/actuation nasal spray furosemide (LASIX) 20 mg tablet HYDROcodone-acetaminophen (Maybeury) 5-325 mg per tablet irbesartan (AVAPRO) 300 mg tablet loratadine (CLARITIN) 10 mg tablet propranolol LA (INDERAL LA) 60 mg 24 hr capsule psyllium (MetamuciL) 0.4 gram capsule Allergies Allergen Reactions Quinapril Other (See comments) Reaction: swollen mouth, Family History Problem Relation Age of Onset Dementia Mother Dementia; Hypertension Mother Hypertension; Depression Mother Depression; Dementia Father Dementia; Hypertension Father Hypertension; Hypertension Brother Hypertension; Social History Tobacco Use Smoking status: Never Smokeless tobacco: Never Substance and Sexual Activity Drug use: No Sexual activity: Defer Alcohol Use: Not on file RETE TESTER RETE TESTER documented in this encounter Procedure Notes * John Dominguez MD - 07/18/2023 5:05 PM CST Procedures Left heart catheterization, selective coronary angiography, left ventriculography was performed through the right radial artery Findings Angiographically normal coronary arteries Segmental left ventricular systolic dysfunction consistent with takotsubo cardiomyopathy with overall ejection fraction 20-25% Elevated end-diastolic pressure at at least 25 mm of mercury TR band to right wrist Plan Per medical team John Dominguez MD RETE TESTER documented in this encounter Consult Notes * Boris De La O MD - 07/17/2023 9:11 AM CSTAssociated Order(s): IP CONSULT TO CARDIOLOGY Cardiology Consultation note Admit date: 07/16/2023 Reason for Consultation: Troponin elevation History of Present Illness: Pebbles Lal is a pleasant 78 y.o. female with a PMH of lymphedema who presented to the ED with nausea, emesis and diarrhea as well as a room air SpO2 of 89%. Aside from her hypoxia she in in NSR and neither hypo- or hypertensive. Her ED workup demonstrated so mild pulmonary edema, a NT pro-BNP of 1392 and a mild troponin elevation of 57 -> 226. Her CBC is remarkable for a leukocytosis and her UA was indicative of pyuria and has reflexed to culture. Blood cultures were obtained, and a AUTOMAT[employer] DOOR MECH[employer]IC swab RVP was negative. She is being admitted to the ICU for close observation. 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 HX OTHER MEDICAL IGT Hypertension Moderate episode of recurrent major depressive disorder (HCC) 12/05/2017 Past Surgical History: Procedure Laterality Date RHINOPLASTY RHINOPLASTY Allergies Allergen Reactions Quinapril Other (See comments) Reaction: swollen mouth, Patient Vitals for the past 24 hrs: BP Temp Temp src Pulse Resp SpO2 Height Weight 07/17/23 0700 129/96 -- -- 84 (!) 31 96 % -- -- 07/17/23 0600 119/90 -- -- 83 28 99 % -- -- 07/17/23 0500 122/82 -- -- 84 (!) 31 98 % -- -- 07/17/23 0415 121/71 -- -- 88 30 98 % -- -- 07/17/23 0400 111/68 36.7 ??C (98.1 ??F) Temporal 90 26 98 % 152.4 cm (5') 135.4 kg (298 lb 8.1 oz) 07/17/23 0345 112/68 -- -- 88 24 98 % -- -- 07/17/23 0330 136/84 -- -- 94 23 94 % -- -- 07/17/23 0315 124/84 -- -- 91 22 98 % -- -- 07/17/23 0312 124/91 36.5 ??C (97.7 ??F) Temporal 82 16 99 % -- -- 07/17/23 0230 102/60 -- -- 84 13 95 % -- -- 07/17/23 0120 111/74 -- -- 86 14 96 % -- -- 07/17/23 0113 -- -- -- -- -- 95 % -- -- 07/17/23 0100 105/65 -- -- 86 -- 94 % -- -- 07/17/23 0030 103/58 -- -- 89 -- 94 % -- -- 07/17/23 0005 93/59 -- -- 91 -- 94 % -- -- 07/16/23 2330 111/71 -- -- 97 -- 94 % -- -- 07/16/236 -- -- -- 100 -- 93 % -- -- 07/16/23 230 122/79 -- -- 100 -- 94 % -- -- 07/16/23 2230 149/80 -- -- 102 -- 91 % -- -- 07/16/23 2200 152/83 -- -- 60 -- 92 % -- -- 07/16/23 2156 155/79 36.4 ??C (97.6 ??F) Tympanic 94 20 91 % 157.5 cm (5' 2 ) 118 kg (260 lb 2.3 oz) Intake/Output Summary (Last 24 hours) at 07/17/2023 0911 Last data filed at 07/17/2023 0312 Gross per 24 hour Intake -- Output 250 ml Net -250 ml Wt Readings from Last 3 Encounters: 07/17/23 135.4 kg (298 lb 8.1 oz) 03/28/23 131.1 kg (289 lb) 09/20/22 131.1 kg (289 lb) Cardiac Rhythm: Normal sinus rhythm (07/17/23 0600) EKG: Sinus rhythm no acute changes Physical Exam: General: Well developed, well nourished, in no acute distress, oriented to person, place, and time. Skin: Warm and dry Head: Normocephalic, oral mucosa and conjunctivae normal Neck: No thyromegaly or bruits. Carotid pulses 2+ Lungs: Clear to auscultation and percussion. Respirations unlabored Cardiac: PMI and JVP normal, S1 and S2 normal, no murmur, no gallop or rub Abd: Soft, nontender, BS active, no hepatosplenomegaly or masses, no abdominal bruit or enlarged aortic pulsation Extremities: No clubbing, cyanosis. No edema. Femoral pulses 2+. Pedal pulses 2+ Musculoskeletal: Muscle strength normal. No scoliosis. Neurologic: Oriented to person, place, and time. Mood not depressed. Review of systems: Constitutional: Negative for fever, chills, malaise/fatigue, and diaphoresis. Psychiatric: Negative for depression and anxiety. Skin: Negative for rash and itching. HENT: Negative for headaches, lightheadedness, and congestion. Negative for vertigo. Eyes: Negative for blurred vision and itching. Cardiovascular: Negative for chest pain, Negative for palpitations and syncope. Respiratory: Negative for cough and sputum production. Negative for shortness of breath. Gastrointestinal: Negative for nausea, vomiting, abdominal pain and diarrhea. Musculoskeletal: Negative for muscle weakness, extremity redness or swelling. Neurological: Negative for dizziness, focal weakness, tremors, and loss of consciousness. Family History Problem Relation Age of Onset [...] not drink Frequency of Binge Drinking: Never Prior to Admission medications Medication Sig Start Date End Date Taking? Authorizing Provider albuterol HFA (ProAir HFA) 90 mcg/actuation inhaler Inhale 2 puffs every 4 (four) hours as needed for shortness of breath As needed for wheezing 03/28/23 Tristan Watson MD atorvastatin (LIPITOR) 10 mg tablet TAKE 1/2 TABLET BY MOUTH EVERY DAY 03/28/23 Tristan Watson MD buPROPion SR (ZYBAN) 150 mg 12 hr tablet Take 1 tablet (150 mg total) by mouth 2 (two) times a day 03/28/23 Tristan Watson MD cloNIDine (CATAPRES) 0.1 mg tablet TAKE 1 TABLET(0.1 MG) BY MOUTH TWICE DAILY 03/28/23 Tristan Watson MD fluticasone propion-salmeteroL (Advair Diskus) 250-50 mcg/dose diskus inhaler Inhale 1 puff 2 (two)times a day Rinse mouth with water after use to reduce aftertaste and incidence of candidiasis. Do not swallow. 03/28/23 Tristan Watson MD irbesartan (AVAPRO) 300 mg tablet TAKE 1 TABLET BY MOUTH EVERY DAY 03/28/23 Tristan Watson MD loratadine (CLARITIN) 10 mg tablet Take 1 tablet (10 mg total) by mouth daily 03/28/23 Tristan Watson MD propranolol LA (INDERAL LA) 60 mg 24 hr capsule Take 1 capsule (60 mg total) by mouth daily Tristan Watson MD cyanocobalamin (Vitamin B-12) 500 mcg tablet Take 1/2 tab mond thru frid and skip sat and sund 05/28/21 07/17/23 Breanna Boston MD FLUoxetine (PROzac) 40 mg capsule Take 1 capsule (40 mg total) by mouth daily 03/28/23 07/17/23 Tristan Watson MD fluticasone propionate (FLONASE) 50 mcg/actuation nasal spray Administer 2 sprays into each nostrildaily 03/28/23 07/17/23 Tristan Watson MD furosemide (LASIX) 20 mg tablet Take 1 tablet (20 mg total) by mouth 2 (two) times a day 03/28/23 07/17/23 Tristan Watson MD HYDROcodone-acetaminophen (Maybeury) 5-325 mg per tablet Take 1 tablet by mouth every 6 hours as needed for pain 03/28/23 07/17/23 Tristan Watson MD psyllium (MetamuciL) 0.4 gram capsule 1 capsule (0.4 g total) daily 12/30/22 07/17/23 Maryuri Ansari MD No results found for: TROPONINT Recent Labs Lab Units 07/17/23 0511 07/16/23 2203 SODIUM mmol/L 138 131* POTASSIUM PLASMA mmol/L 3.8 5.3* CHLORIDE mmol/L 100 94* CO2 mmol/L 25 21* BUN SERUM mg/dL 18 15 CREATININE mg/dL 1.15* 0.82 [id number] mL/min/1.73 m2 49 74 GLUCOSE mg/dL 163 240* CALCIUM mg/dL 9.4 9.2 ALBUMIN g/dL 3.2* 3.1* PHOSPHORUS PLASMA mg/dL 3.2 -- Recent Labs Lab Units 07/17/23 0511 07/16/23 2203 ALK PHOS Units/L 139* 154* BILIRUBIN TOTAL mg/dL 0.4 0.5 TOTAL PROTEIN g/dL 7.4 7.6 ALT Units/L 14 14 AST Units/L 22 22 Recent Labs Lab Units 07/17/23 0442 07/16/23 2203 WBC K/cumm 17.4* 16.6* HEMOGLOBIN g/dL 13.4 14.0 HEMATOCRIT % 40.1 41.8 PLATELETS K/cumm 271 354 Recent Labs Lab Units 07/17/23 0254 INR 1.26* Tests: 2019 echocardiogram normal ejection fraction Impression/Plan: Sepsis lactic acidosis Troponin elevation likely demand ischemia however ischemia evaluation at some point will be indicated Respiratory insufficiency Vomiting dehydration Renal insufficiency Recommendation Echocardiogram Supportive care and antibiotic treatment per ICU Ischemia evaluation once medically stable and once echo reports are available CC: RETE TESTER documented in this encounter Nursing Notes * Nan Bansal RN - 07/29/2023 2:49 PM CST Called report to joanna Rdogers in [place]. Spoke with Jo GUIRDY. Report given. Life vest on patient. Jo informed of lifevest. States no further questions at this time. RETE TESTER * Guerda Richards RN - 07/27/2023 7:25 AM CST 0725 Handoff received. Pt resting in bed. Safety precautions in place. 0930 Assessment complete. Discussed plan of care. Questions answered. [address] Sarah. RETE TESTER RETE TESTER RETE TESTER * Karyna Aguilar RN - 07/24/2023 5:18 AM CST Stafford intact, patent and draining red tinged urine. RETE TESTER * Wyatt Rodriguez RN - 07/21/2023 11:12 AM CST Patient did not get life vest today due to being short of breath and unable to sit up. I updated charge nurse, Dr. Husain and Dr. Sepulveda. RETE TESTER * Ayala Garcia RN - 07/20/2023 3:43 PM CST Received report from BREA Pierson. Pt transferred to IMU 2620, oriented to room and call light system. RETE TESTER * Dangelo Mancilla RN - 07/20/2023 3:34 PM CST Pt transferred via bed on the monitor to imu per md order. Pt no distress noted or voiced. Pt personal belongings present and accounted for per pt. Pt chart and report given to appropriate persons. RETE TESTER documented in this encounter ED Notes * Silvia Villafana MD - 07/16/2023 10:10 PM CST HPI Chief Complaint Patient presents with Vomiting Pt c/o nausea vomiting , diarrhea HPI Patient History: This is a 78-year-old female with a history of hypertension, hypercholesterolemia,hypothyroidism, depression, asthma, chronic pain syndrome who presents via EMS with nausea vomitingand diarrhea with an O2 sat of 89%. states she has been feeling poorly for several days andhe has been helping take care of her. Patient does not wear home O2. She has a poor historian. Per old record: Echo: Conclusions: Mild concentric left ventricular hypertrophy. Normal global left ventricular systolic function. Ejection fraction is visually estimated at 60 to 65 %. Mild mitral annular calcification. Mild to moderate mitral valve regurgitation. Normal structure of the aortic valve. Normal structure of the tricuspid valve. Trivial regurgitation in the tricuspid valve. Electronically Signed By: Dr Roly Husain 2019-04-18 13:49:45 CDT Patient Active Problem List Diagnosis Date Noted Vomiting and diarrhea 07/17/2023 Benign essential tremor 03/28/2023 Acquired hypothyroidism 05/28/2021 B12 deficiency 05/20/2020 Hypertensive heart disease with congestive heart failure (HCC) 05/20/2020 At high risk for falls per Rory fall risk assessment scale 05/20/2020 Pure hypercholesterolemia 01/16/2020 Iron deficiency anemia due to chronic blood loss Class 3 severe obesity due to excess calories with serious comorbidity and body mass index (BMI) of50.0 to 59.9 in adult ([facility]) 12/07/2018 Recurrent major depressive disorder, in partial remission ([facility]) 10/24/2018 Mild persistent asthma without complication 03/14/2018 Chronic stasis dermatitis 03/15/2017 IGT (impaired glucose tolerance) 03/15/2017 Chronic pain syndrome 03/15/2017 PE (physical exam), annual 03/15/2017 Vitamin D deficiency 03/15/2017 Benign hypertension 08/17/2016 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 HX OTHER MEDICAL IGT Hypertension Moderate episode of recurrent major depressive disorder ([facility]) 12/05/2017 Past Surgical History: Procedure Laterality Date RHINOPLASTY RHINOPLASTY Family History Problem Relation Age of Onset Dementia Mother Dementia; Hypertension Mother Hypertension; Depression Mother Depression; Dementia Father Dementia; Hypertension Father Hypertension; Hypertension Brother Hypertension; Social History Tobacco Use Smoking status: Never Smokeless tobacco: Never Substance and Sexual Activity Alcohol use: Not Currently Comment: no recently Drug use: No Sexual activity: Defer Social History Social History Narrative Not on file Review of Systems Review of Systems Constitutional: Positive for appetite change, chills and diaphoresis. HENT: Negative for congestion. Eyes: Negative for itching. Respiratory: Positive for cough. Cardiovascular: Negative for chest pain. Gastrointestinal: Negative for abdominal pain. Endocrine: Negative for polydipsia. Genitourinary: Negative for dysuria. Musculoskeletal: Negative for back pain. Allergic/Immunologic: Negative for food allergies. Neurological: Negative for headaches. Hematological: Negative for adenopathy. Psychiatric/Behavioral: Negative for behavioral problems. All other systems reviewed and are negative. Physical Exam ED Triage Vitals [07/16/236] Temp Pulse Resp BP SpO2 36.4 ??C (97.6 ??F) 94 20 155/79 91 % Temp src Heart Rate Source Patient Position BP Location FiO2 (%) Tympanic -- -- -- -- Height Height Method Weight Weight Method 1.575 m (5' 2 ) -- 118 kg (260 lb 2.3 oz) -- Physical Exam Vitals and nursing note reviewed. Constitutional: General: She is not in acute distress. Appearance: Normal appearance. She is obese. She is diaphoretic. She is not ill- appearing or toxic-appearing. HENT: Head: Normocephalic and atraumatic. Right Ear: External ear normal. Left Ear: External ear normal. Nose: Nose normal. Mouth/Throat: Mouth: Mucous membranes are moist. Pharynx: Oropharynx is clear. Eyes: Extraocular Movements: Extraocular movements intact. Conjunctiva/sclera: Conjunctivae normal. Pupils: Pupils are equal, round, and reactive to light. Cardiovascular: Rate and Rhythm: Normal rate and regular rhythm. Pulses: Normal pulses. Heart sounds: Normal heart sounds. Pulmonary: Effort: Pulmonary effort is normal. Comments: Breath sounds decreased Abdominal: General: Bowel sounds are normal. There is no distension. Palpations: Abdomen is soft. Tenderness: There is no right CVA tenderness or left CVA tenderness. Musculoskeletal: General: Normal range of motion. Cervical back: Normal range of motion and neck supple. Right lower leg: Edema present. Left lower leg: Edema present. Comments: Bilateral lymphedema Skin: General: Skin is warm. Capillary Refill: Capillary refill takes less than 2 seconds. Neurological: General: No focal deficit present. Mental Status: She is alert and oriented to person, place, and time. Motor: No weakness. Psychiatric: Mood and Affect: Mood normal. [facility] Medical Decision Making This is a 78-year-old female with a history of hypertension, hypercholesterolemia, hypothyroidism, depression, asthma, chronic pain syndrome who presents via EMS with nausea vomiting and diarrhea with an O2 sat of 89%. Differential includes pneumonia, COVID, other viral infection, ACS, other. Patient has an elevated white count which is suggestive of infection, await further labs. Amount and/or Complexity of Data Reviewed Independent Historian: spouse External Data Reviewed: labs, radiology, ECG and notes. Labs: ordered. Decision-making details documented in ED Course. Radiology: ordered. ECG/medicine tests: ordered. Risk OTC drugs. Prescription drug management. Decision regarding hospitalization. ED Course as of 07/17/23 0203 Time: 07/16 2219 Value: WBC(!): 16.6 Comment: (Reviewed) By: Silvia Villafana MD Time: 07/16 2330 Comment: EKG done at 11:05 p.m. narrow complex rhythm, Q-waves noted, nonspecific ST changes rate 100 By: Silvia Villafana MD Time: 07/17 21 Value: NT-proBNP(!): 1,392 Comment: (Reviewed) By: Silvia Villafana MD Time: 07/17 22 Value: Potassium, pl(!): 5.3 Comment: (Reviewed) By: Silvia Villafana MD Time: 07/17 22 Value: Trop T hs(!): 57 Comment: (Reviewed) By: Silvia Villafana MD Time: 07/17 140 Comment: EKG done at 1:23 a.m. narrow complex rhythm rate 85 Q-waves noted, nonspecific ST changes By: Silvia Villafana MD Time: 07/17 148 Comment: Discussed with Dr. De La O - agrees this is edematous STEMI on the EKGs. Agrees with 40 ofLasix and Lovenox. May be related to infection. Agrees with ICU and will see. By: Silvia Villafana MD Time: 07/17 156 Comment: Discussed with Dr. Soriano who agrees with no maintenance IV fluids at this time and accepts patient By: Silvia Villafana MD Time: 07/17 159 Value: Lactate(!): 2.2 Comment: (Reviewed) By: Silvia Villafana MD Final diagnoses: Vomiting and diarrhea Cystitis Elevated troponin Silvia Villafana MD 07/17/23202 RETE TESTER * Avelina Cristina RN - 07/16/2023 9:54 PM CST Pt presents [facility] with nausea vomiting diarrhea spo2 89% RA RETE TESTER documented in this encounter Miscellaneous Notes * Plan of Care - Tristan Akins LCSW - 07/29/2023 10:04 AM CST (9:08 a.m.) ALISA received a text message from Dangelo with [facility] [place] stating that this patient is good to be admitted today. Dangelo then provided the following information pertaining to this patient's admission. Patient will be admitted to room: 115 Please call report to: [phone] Please fax discharge orders and med reconciliation to: [phone] Patient will be admitting to nursing facility in a long term bed and will need EMS transport. RETE TESTER * Plan of Care - Tristan Akins LCSW - 07/29/2023 7:58 AM CST (7:57 a.m.) ALISA sent text message to Dangelo with [facility] letting him know that this assistant professor sculpture is justwanting to check up on possible admission for this patient today. RETE TESTER * Plan of Care - Laura Garcia RN - 07/29/2023 4:24 AM CST Problem: Lack of Knowledge: Goal: Understanding of ways to prevent future skin breakdown will improve Outcome: Progressing Problem: Skin Integrity: Goal: Risk for impaired skin integrity will decrease Outcome: Progressing Problem: Skin Integrity: Goal: Ability to demonstrate warm and dry skin will improve Outcome: Progressing Problem: Lack of Knowledge: Goal: Ability to state ways to decrease the risk of falls will improve Outcome: Progressing Problem: Safety: Goal: Will remain free from falls Outcome: Progressing Goal: Will remain free from injury from falls Outcome: Progressing Goal: Will remain free from falls and injury in home environment Outcome: Progressing Goals: Clinical Goals for the Shift: VSS, safety, comfort Summary: VSS. Safety maintained. Tylenol given for pain. Repositioned q2. Call light within reach. RETE TESTER * Plan of Care - Rufina Santamaria RN - 07/28/2023 3:30 PM CST Problem: Health Behavior: Goal: Understanding of discharge needs will improve Outcome: Progressing Problem: Activity: Goal: Mobility will improve Outcome: Progressing Problem: Lack of Knowledge: Goal: Understanding of ways to prevent future skin breakdown will improve Outcome: Progressing Goal: Ability to identify appropriate dietary choices will improve Outcome: Progressing Problem: Nutritional: Goal: Dietary intake will improve Outcome: Progressing Goal: Ability to maintain a balanced intake and output will improve Outcome: Progressing Problem: Skin Integrity: Goal: Risk for impaired skin integrity will decrease Outcome: Progressing Goal: Ability to demonstrate warm and dry skin will improve Outcome: Progressing Goal: Circulation will improve to fullest extent possible Outcome: Progressing Problem: Lack of Knowledge: Goal: Ability to state ways to decrease the risk of falls will improve Outcome: Progressing Problem: Safety: Goal: Will remain free from falls Outcome: Progressing Goal: Will remain free from injury from falls Outcome: Progressing Goal: Will remain free from falls and injury in home environment Outcome: Progressing Problem: Lack of Knowledge: Goal: Ability to develop a pain control plan will improve Outcome: Progressing Goal: Ability to identify pain intensity on a pain scale and rate it consistently will improve Outcome: Progressing Goal: Ability to notify healthcare provider of pain before it becomes unmanageable or unbearable will improve Outcome: Progressing Problem: Medication: Goal: Satisfaction with pain management regimen will improve Outcome: Progressing Problem: Sensory: Goal: Ability to identify factors that increase the pain will improve Outcome: Progressing Goal: Pain level will decrease Outcome: Progressing Problem: Lack of Knowledge: Goal: Verbalization of understanding the information provided will improve Outcome: Progressing Problem: Physical Regulation: Goal: Complications related to the disease process, condition or treatment will be avoided or minimized Outcome: Progressing Goals: Clinical Goals for the Shift: vss, safety Summary: Vital signs stable. Patient has remained safe and free of injury. RETE TESTER * Plan of Care - Tristan Akins LCSW - 07/28/2023 10:07 AM CST (2:02 p.m.) ALISA sent text message to patient's spouse, Francesco, at [phone] letting him know the information this assistant professor sculpture received from Dangelo regarding this patient being admitted to [facility]] in a private pay situation. (1:57 p.m.) ALISA received a text message from Dangelo with [facility] providing the following information. $260 a day for [facility]. Would need $7,800 up front and we could also help with Medicaid salvador. (1:53 p.m.) ALISA sent a text message to Dangelo with [facility] asking if he received therate for this patient's admission to [facility] in a long term bed. (12:05 p.m.) ALISA sent an instant message via [employer] to Dangelo with [facility] letting him know that this patient's spouse has identified [facility] as SNF of preference. This assistant professor sculpture explained to Dangelo that [facility] is unable/unwilling to admit this pa tient due to her limited finances and patient's has voiced that he will need to complete a Medicaid application with staff at [facility]. (11:32 a.m.) ALISA spoke with patient's , Francesco, in the solarium on IMU about patient being denied at [facility] due to financial reasons. Patient's spouse was disheartened by this conversation but voiced understanding and identified [facility] as nursing facility of preference because he knows he cannot take this patient home. ALISA spent nearly 30 minutes with patient's spouse. (9:51 a.m.) ALISA received a voice message from Heaven with [facility] stating that this patient's finally called them back and the facility was able to do a financial evaluation with him. Heaven stated that the facility requires evidence of a year's worth of funds and it appears that this patient and her spouse only have approximately a couple of months. Heaven apologized before stating that[facility] ???[facility] out?? because they are concerned that they would be stuck with this patient and she would have insufficient funding. RETE TESTER RETE TESTER RETE TESTER RETE TESTER * Plan of Care - Aviva Zhong RN - 07/28/2023 7:38 AM CST Patient awaiting a peer to peer evaluation today for potential placement [place] a [place] [facility] [place] RETE TESTER * Plan of Care - Laura Garcia RN - 07/28/2023 4:33 AM CST Problem: Lack of Knowledge: Goal: Ability to state ways to decrease the risk of falls will improve Outcome: Progressing Problem: Safety: Goal: Will remain free from falls Outcome: Progressing Goal: Will remain free from injury from falls Outcome: Progressing Goal: Will remain free from falls and injury in home environment Outcome: Progressing Problem: Lack of Knowledge: Goal: Ability to identify pain intensity on a pain scale and rate it consistently will improve Outcome: Progressing Problem: Lack of Knowledge: Goal: Ability to notify healthcare provider of pain before it becomes unmanageable or unbearable will improve Outcome: Progressing Goals: Clinical Goals for the Shift: VSS, safety, comfort Summary: BP soft, hospitalist notified and no new orders at this time. Safety maintained. Call light within reach. RETE TESTER * Plan of Care - Guerda Richards RN - 07/27/2023 4:26 PM CST Problem: Health Behavior: Goal: Understanding of discharge needs will improve Outcome: Progressing Problem: Activity: Goal: Mobility will improve Outcome: Not Progressing Problem: Lack of Knowledge: Goal: Understanding of ways to prevent future skin breakdown will improve Outcome: Progressing Goal: Ability to identify appropriate dietary choices will improve Outcome: Not Progressing Problem: Nutritional: Goal: Dietary intake will improve Outcome: Not Progressing Goal: Ability to maintain a balanced intake and output will improve Outcome: Not Progressing Problem: Skin Integrity: Goal: Risk for impaired skin integrity will decrease Outcome: Progressing Goal: Ability to demonstrate warm and dry skin will improve Outcome: Progressing Goal: Circulation will improve to fullest extent possible Outcome: Progressing Problem: Lack of Knowledge: Goal: Ability to state ways to decrease the risk of falls will improve Outcome: Progressing Problem: Safety: Goal: Will remain free from falls Outcome: Progressing Goal: Will remain free from injury from falls Outcome: Progressing Goal: Will remain free from falls and injury in home environment Outcome: Defer Problem: Lack of Knowledge: Goal: Ability to develop a pain control plan will improve Outcome: Progressing Goal: Ability to identify pain intensity on a pain scale and rate it consistently will improve Outcome: Progressing Goal: Ability to notify healthcare provider of pain before it becomes unmanageable or unbearable will improve Outcome: Progressing Problem: Medication: Goal: Satisfaction with pain management regimen will improve Outcome: Progressing Problem: Sensory: Goal: Ability to identify factors that increase the pain will improve Outcome: Progressing Goal: Pain level will decrease Outcome: Progressing Problem: Lack of Knowledge: Goal: Verbalization of understanding the information provided will improve Outcome: Progressing Problem: Physical Regulation: Goal: Complications related to the disease process, condition or treatment will be avoided or minimized Outcome: Progressing Goals: Clinical Goals for the Shift: stable vitals/labe, improved mobility, maintain skin integrity, comfort/safety; Summary: Poor appetite and mobility. PT noted sleepy and falling asleep durning therapy. RETE TESTER * Plan of Care - Tristan Akins LCSW - 07/27/2023 10:14 AM CST (2:52 p.m.) ALISA sent an instant message via [employer]art[employer] to Dr. Sarah letting him know that this patient's insurance has intent to deny SNF but are offering a peer to peer that must be completed by noon on July. (2:39 p.m.) ALISA received a photo from Heaven collins [facility] providing the following information for patient's physician to complete a [id number]. To complete peer to peer please call: [phone] option 4 Please provide Please include patient's name and date of as well. Peer to peer must be completed by 12:00 p.m. on July for the medical detailist will make a determination based upon available information. (2:37 p.m.) ALISA received a phone call from Heaven with [facility] stating that she has received notice from this patient's insurance with intent to deny SNF. Heaven informed this assistant professor sculpture that she will send this assistant professor sculpture a photo including all pertinent information to complete [id number]. (1:14 p.m.) ALISA called Heaven with [facility] on her cell phone to let her know that this assistant professor sculpture spoke with patient's spouse, Francesco ???Demetrius Lal, regarding ability to pay [id number] in the event that this patient would need long term stay at [facility]. Patient's told this assistant professor sculpture that he could do this temporarily, and this assistant professor sculpture shared this information with Heaven. ALISA also shared patient's 's contact information so that [facility] can reach out to him. (9:46 a.m.) ALISA received a voice message from Heaven with [facility] stating that the facility has submitted for insurance authorization for this patient, but throughout the referral there are comments about patient's lack of participation with therapy. Heaven added that she does not anticipate receiving insurance authorization and, if they are successful in doing so, it will likely only be good for a couple of days. [facility] is requesting information pertaining to patient's ability to pay privately if she admits to the facility. RETE TESTER RETE TESTER RETE TESTER * Plan of Care - Bruna Hassan RN - 07/27/2023 5:26 AM CST Goals: Clinical Goals for the Shift: VSS, rest comfortably Summary: VSS, bathed, turned every 2 hours. No hematuria noted. Problem: Health Behavior: Goal: Understanding of discharge needs will improve Outcome: Progressing Problem: Lack of Knowledge: Goal: Understanding of ways to prevent future skin breakdown will improve Outcome: Progressing Goal: Ability to identify appropriate dietary choices will improve Outcome: Progressing Problem: Nutritional: Goal: Dietary intake will improve Outcome: Progressing Goal: Ability to maintain a balanced intake and output will improve Outcome: Progressing Problem: Skin Integrity: Goal: Risk for impaired skin integrity will decrease Outcome: Progressing Goal: Ability to demonstrate warm and dry skin will improve Outcome: Progressing Goal: Circulation will improve to fullest extent possible Outcome: Progressing Problem: Lack of Knowledge: Goal: Ability to state ways to decrease the risk of falls will improve Outcome: Progressing Problem: Safety: Goal: Will remain free from falls Outcome: Progressing Goal: Will remain free from injury from falls Outcome: Progressing Problem: Lack of Knowledge: Goal: Ability to develop a pain control plan will improve Outcome: Progressing Goal: Ability to identify pain intensity on a pain scale and rate it consistently will improve Outcome: Progressing Goal: Ability to notify healthcare provider of pain before it becomes unmanageable or unbearable will improve Outcome: Progressing Problem: Medication: Goal: Satisfaction with pain management regimen will improve Outcome: Progressing Problem: Sensory: Goal: Ability to identify factors that increase the pain will improve Outcome: Progressing Goal: Pain level will decrease Outcome: Progressing Problem: Lack of Knowledge: Goal: Verbalization of understanding the information provided will improve Outcome: Progressing Problem: Physical Regulation: Goal: Complications related to the disease process, condition or treatment will be avoided or minimized Outcome: Progressing Problem: Activity: Goal: Mobility will improve Outcome: Not Progressing Problem: Safety: Goal: Will remain free from falls and injury in home environment Outcome: Defer RETE TESTER * Plan of Annie Melchor RN - 07/26/2023 5:15 PM CST Goals: Problem: Health Behavior: Goal: Understanding of discharge needs will improve Outcome: Not Progressing Problem: Activity: Goal: Mobility will improve Outcome: Not Progressing Problem: Lack of Knowledge: Goal: Understanding of ways to prevent future skin breakdown will improve Outcome: Not Progressing Goal: Ability to identify appropriate dietary choices will improve Outcome: Not Progressing Problem: Nutritional: Goal: Dietary intake will improve Outcome: Not Progressing Goal: Ability to maintain a balanced intake and output will improve Outcome: Not Progressing Problem: Skin Integrity: Goal: Risk for impaired skin integrity will decrease Outcome: Not Progressing Goal: Ability to demonstrate warm and dry skin will improve Outcome: Not Progressing Goal: Circulation will improve to fullest extent possible Outcome: Not Progressing Problem: Lack of Knowledge: Goal: Ability to state ways to decrease the risk of falls will improve Outcome: Not Progressing Problem: Safety: Goal: Will remain free from falls Outcome: Not Progressing Goal: Will remain free from injury from falls Outcome: Not Progressing Goal: Will remain free from falls and injury in home environment Outcome: Not Progressing Problem: Lack of Knowledge: Goal: Ability to develop a pain control plan will improve Outcome: Not Progressing Goal: Ability to identify pain intensity on a pain scale and rate it consistently will improve Outcome: Not Progressing Goal: Ability to notify healthcare provider of pain before it becomes unmanageable or unbearable will improve Outcome: Not Progressing Problem: Medication: Goal: Satisfaction with pain management regimen will improve Outcome: Not Progressing Problem: Sensory: Goal: Ability to identify factors that increase the pain will improve Outcome: Not Progressing Goal: Pain level will decrease Outcome: Not Progressing Problem: Lack of Knowledge: Goal: Verbalization of understanding the information provided will improve Outcome: Not Progressing Problem: Physical Regulation: Goal: Complications related to the disease process, condition or treatment will be avoided or minimized Outcome: Not Progressing Clinical Goals for the Shift: Patient will remain hemodynamically stable this shift. Summary: Patient has remained hemodynamically stable thus far. VSS. Call light within reach. No needs at this time. RETE TESTER * Plan of Care - Xiomara Guzman OT - 07/26/2023 3:44 PM CST Problem: Grooming Goal: STG - Patient will complete grooming Description: Mod assist after setup Outcome: Progressing Flowsheets (Taken 07/26/2023 1542) Assist Level: MOD Note: Mod A to brush hair Problem: Transfers Goal: STG - Patient will perform toilet transfer Description: Pt will participate in toilet transfer Outcome: Progressing Flowsheets (Taken 07/26/2023 1542) Assist Level: MAX Note: Pt. Completed bed mobility with Max A in preparation for toilet transfers RETE TESTER * Plan of Care - Tristan Akins LCSW - 07/26/2023 3:35 PM CST (3:35 p.m.) ALISA faxed updated information about this patient to [facility] via [employer]. RETE TESTER * Plan of Care - Tristan Akins LCSW - 07/26/2023 11:49 AM CST (11:49 a.m.) ALISA sent an instant message via [employer] to Xiomara Guzman OT, asking if Ave Fagan PTA, had contacted her regarding an OT treatment today. This assistant professor sculpture shared that he spokewith Ave Fagan earlier, and that Ave told this assistant professor sculpture that she will speak with Xiomara as neither Ave nor this assistant professor sculpture have seen any OTs other than Xiomara thus far today. RETE TESTER * Plan of Care - Ramiro Waters RN - 07/26/2023 6:26 AM CST Goals: Clinical Goals for the Shift: VSS; comfort; safety Summary: VSS; pt resting in bed w/no complaints of pain/further needs; skin integrity education provided when pt refused turns Problem: Health Behavior: Goal: Understanding of discharge needs will improve Outcome: Ongoing Problem: Activity: Goal: Mobility will improve Outcome: Ongoing Problem: Lack of Knowledge: Goal: Understanding of ways to prevent future skin breakdown will improve Outcome: Ongoing Goal: Ability to identify appropriate dietary choices will improve Outcome: Ongoing Problem: Nutritional: Goal: Dietary intake will improve Outcome: Ongoing Goal: Ability to maintain a balanced intake and output will improve Outcome: Ongoing Problem: Skin Integrity: Goal: Risk for impaired skin integrity will decrease Outcome: Ongoing Goal: Ability to demonstrate warm and dry skin will improve Outcome: Ongoing Goal: Circulation will improve to fullest extent possible Outcome: Ongoing Problem: Lack of Knowledge: Goal: Ability to state ways to decrease the risk of falls will improve Outcome: Ongoing Problem: Safety: Goal: Will remain free from falls Outcome: Ongoing Goal: Will remain free from injury from falls Outcome: Ongoing Goal: Will remain free from falls and injury in home environment Outcome: Ongoing Problem: Lack of Knowledge: Goal: Ability to develop a pain control plan will improve Outcome: Ongoing Goal: Ability to identify pain intensity on a pain scale and rate it consistently will improve Outcome: Ongoing Goal: Ability to notify healthcare provider of pain before it becomes unmanageable or unbearable will improve Outcome: Ongoing Problem: Medication: Goal: Satisfaction with pain management regimen will improve Outcome: Ongoing Problem: Sensory: Goal: Ability to identify factors that increase the pain will improve Outcome: Ongoing Goal: Pain level will decrease Outcome: Ongoing Problem: Lack of Knowledge: Goal: Verbalization of understanding the information provided will improve Outcome: Ongoing Problem: Physical Regulation: Goal: Complications related to the disease process, condition or treatment will be avoided or minimized Outcome: Ongoing RETE TESTER * Plan of Viktor - Annie Swain RN - 07/25/2023 5:25 PM CST Goals: Problem: Health Behavior: Goal: Understanding of discharge needs will improve Outcome: Not Progressing Problem: Activity: Goal: Mobility will improve Outcome: Not Progressing Problem: Lack of Knowledge: Goal: Understanding of ways to prevent future skin breakdown will improve Outcome: Not Progressing Goal: Ability to identify appropriate dietary choices will improve Outcome: Not Progressing Problem: Nutritional: Goal: Dietary intake will improve Outcome: Not Progressing Goal: Ability to maintain a balanced intake and output will improve Outcome: Not Progressing Problem: Skin Integrity: Goal: Risk for impaired skin integrity will decrease Outcome: Not Progressing Goal: Ability to demonstrate warm and dry skin will improve Outcome: Not Progressing Goal: Circulation will improve to fullest extent possible Outcome: Not Progressing Problem: Lack of Knowledge: Goal: Ability to state ways to decrease the risk of falls will improve Outcome: Not Progressing Problem: Safety: Goal: Will remain free from falls Outcome: Not Progressing Goal: Will remain free from injury from falls Outcome: Not Progressing Goal: Will remain free from falls and injury in home environment Outcome: Not Progressing Problem: Lack of Knowledge: Goal: Ability to develop a pain control plan will improve Outcome: Not Progressing Goal: Ability to identify pain intensity on a pain scale and rate it consistently will improve Outcome: Not Progressing Goal: Ability to notify healthcare provider of pain before it becomes unmanageable or unbearable will improve Outcome: Not Progressing Problem: Medication: Goal: Satisfaction with pain management regimen will improve Outcome: Not Progressing Problem: Sensory: Goal: Ability to identify factors that increase the pain will improve Outcome: Not Progressing Goal: Pain level will decrease Outcome: Not Progressing Problem: Lack of Knowledge: Goal: Verbalization of understanding the information provided will improve Outcome: Not Progressing Problem: Physical Regulation: Goal: Complications related to the disease process, condition or treatment will be avoided or minimized Outcome: Not Progressing Clinical Goals for the Shift: Patient will remain hemodynamically stable this shift. Summary: Patient has remained hemodynamically stable thus far. No complaints of pain. Labs have some improvement from yesterday. VSS. She has been resting in bed. visited. Call light at bedside. No needs at this time. RETE TESTER * Plan of Care - Tiffany Pappas RN - 07/25/2023 5:36 AM CST Goals: Clinical Goals for the Shift: Pt to remain hemodynamically stable and free of falls or injury. Summary: Pt rested quietly per bed with 02 at 2l per n/c. Turned and repositioned for comfort. No complaints voiced. Vss. No signs of distress noted. Call light in reach and encouraged to call for any needs or concerns. Bed alarm on and safety maintained. Problem: Health Behavior: Goal: Understanding of discharge needs will improve Outcome: Progressing Problem: Activity: Goal: Mobility will improve Outcome: Progressing Problem: Lack of Knowledge: Goal: Understanding of ways to prevent future skin breakdown will improve Outcome: Progressing Goal: Ability to identify appropriate dietary choices will improve Outcome: Progressing Problem: Nutritional: Goal: Dietary intake will improve Outcome: Progressing Goal: Ability to maintain a balanced intake and output will improve Outcome: Progressing Problem: Skin Integrity: Goal: Risk for impaired skin integrity will decrease Outcome: Progressing Goal: Ability to demonstrate warm and dry skin will improve Outcome: Progressing Goal: Circulation will improve to fullest extent possible Outcome: Progressing Problem: Lack of Knowledge: Goal: Ability to state ways to decrease the risk of falls will improve Outcome: Progressing Problem: Safety: Goal: Will remain free from falls Outcome: Progressing Goal: Will remain free from injury from falls Outcome: Progressing Goal: Will remain free from falls and injury in home environment Outcome: Progressing Problem: Lack of Knowledge: Goal: Ability to develop a pain control plan will improve Outcome: Progressing Goal: Ability to identify pain intensity on a pain scale and rate it consistently will improve Outcome: Progressing Goal: Ability to notify healthcare provider of pain before it becomes unmanageable or unbearable will improve Outcome: Progressing Problem: Medication: Goal: Satisfaction with pain management regimen will improve Outcome: Progressing Problem: Sensory: Goal: Ability to identify factors that increase the pain will improve Outcome: Progressing Goal: Pain level will decrease Outcome: Progressing Problem: Lack of Knowledge: Goal: Verbalization of understanding the information provided will improve Outcome: Progressing Problem: Physical Regulation: Goal: Complications related to the disease process, condition or treatment will be avoided or minimized Outcome: Progressing RETE TESTER * Plan of Viktor - Shanell Enriquez RN - 07/24/2023 5:08 PM CST Goals: Problem: Health Behavior: Goal: Understanding of discharge needs will improve Outcome: Progressing Problem: Activity: Goal: Mobility will improve Outcome: Progressing Problem: Lack of Knowledge: Goal: Understanding of ways to prevent future skin breakdown will improve Outcome: Progressing Goal: Ability to identify appropriate dietary choices will improve Outcome: Progressing Problem: Nutritional: Goal: Dietary intake will improve Outcome: Progressing Goal: Ability to maintain a balanced intake and output will improve Outcome: Progressing Problem: Skin Integrity: Goal: Risk for impaired skin integrity will decrease Outcome: Progressing Goal: Ability to demonstrate warm and dry skin will improve Outcome: Progressing Goal: Circulation will improve to fullest extent possible Outcome: Progressing Problem: Lack of Knowledge: Goal: Ability to state ways to decrease the risk of falls will improve Outcome: Progressing Problem: Safety: Goal: Will remain free from falls Outcome: Progressing Goal: Will remain free from injury from falls Outcome: Progressing Goal: Will remain free from falls and injury in home environment Outcome: Progressing Problem: Lack of Knowledge: Goal: Ability to develop a pain control plan will improve Outcome: Progressing Goal: Ability to identify pain intensity on a pain scale and rate it consistently will improve Outcome: Progressing Goal: Ability to notify healthcare provider of pain before it becomes unmanageable or unbearable will improve Outcome: Progressing Problem: Medication: Goal: Satisfaction with pain management regimen will improve Outcome: Progressing Problem: Sensory: Goal: Ability to identify factors that increase the pain will improve Outcome: Progressing Goal: Pain level will decrease Outcome: Progressing Problem: Lack of Knowledge: Goal: Verbalization of understanding the information provided will improve Outcome: Progressing Problem: Physical Regulation: Goal: Complications related to the disease process, condition or treatment will be avoided or minimized Outcome: Progressing Clinical Goals for the Shift: Patient to rest comfortably with VSS Summary: Patient on 2L and no complaints of pain. Nausea this morning and zofran given once. PICC working. Fluid restriction started. Aflutter on telemetry. Her visited today. She is resting in bed and has the call light in reach. RETE TESTER * Plan of Care - Karyna Aguilar RN - 07/24/2023 3:52 AM CST Goals: Clinical Goals for the Shift: VSS. pain controlled, free from falls and injuries Summary: Left undisturbed tonight due to sleep study test. Voiced no C/O pain or discomfort. [address] per nasal cannula at 2 liters/min. Remains free from falls and injuries. Problem: Health Behavior: Goal: Understanding of discharge needs will improve Outcome: Ongoing Problem: Activity: Goal: Mobility will improve Outcome: Ongoing Problem: Lack of Knowledge: Goal: Understanding of ways to prevent future skin breakdown will improve Outcome: Ongoing Goal: Ability to identify appropriate dietary choices will improve Outcome: Ongoing Problem: Nutritional: Goal: Dietary intake will improve Outcome: Ongoing Goal: Ability to maintain a balanced intake and output will improve Outcome: Ongoing Problem: Skin Integrity: Goal: Risk for impaired skin integrity will decrease Outcome: Ongoing Goal: Ability to demonstrate warm and dry skin will improve Outcome: Ongoing Goal: Circulation will improve to fullest extent possible Outcome: Ongoing Problem: Lack of Knowledge: Goal: Ability to state ways to decrease the risk of falls will improve Outcome: Ongoing Problem: Safety: Goal: Will remain free from falls Outcome: Ongoing Goal: Will remain free from injury from falls Outcome: Ongoing Goal: Will remain free from falls and injury in home environment Outcome: Ongoing Problem: Lack of Knowledge: Goal: Ability to develop a pain control plan will improve Outcome: Ongoing Goal: Ability to identify pain intensity on a pain scale and rate it consistently will improve Outcome: Ongoing Goal: Ability to notify healthcare provider of pain before it becomes unmanageable or unbearable will improve Outcome: Ongoing Problem: Medication: Goal: Satisfaction with pain management regimen will improve Outcome: Ongoing Problem: Sensory: Goal: Ability to identify factors that increase the pain will improve Outcome: Ongoing Goal: Pain level will decrease Outcome: Ongoing Problem: Lack of Knowledge: Goal: Verbalization of understanding the information provided will improve Outcome: Ongoing Problem: Physical Regulation: Goal: Complications related to the disease process, condition or treatment will be avoided or minimized Outcome: Ongoing Problem: Skin Integrity: Goal: Risk for impaired skin integrity will decrease Outcome: Ongoing Problem: Skin Integrity: Goal: Ability to demonstrate warm and dry skin will improve Outcome: Ongoing Problem: Skin Integrity: Goal: Circulation will improve to fullest extent possible Outcome: Ongoing Problem: Lack of Knowledge: Goal: Ability to state ways to decrease the risk of falls will improve Outcome: Ongoing RETE TESTER * Plan of Care - Elizabeth Dunn RN - 07/23/2023 6:21 PM CST Problem: Health Behavior: Goal: Understanding of discharge needs will improve Outcome: Progressing Problem: Activity: Goal: Mobility will improve Outcome: Progressing Problem: Lack of Knowledge: Goal: Understanding of ways to prevent future skin breakdown will improve Outcome: Progressing Goal: Ability to identify appropriate dietary choices will improve Outcome: Progressing Problem: Nutritional: Goal: Dietary intake will improve Outcome: Progressing Goal: Ability to maintain a balanced intake and output will improve Outcome: Progressing Problem: Skin Integrity: Goal: Risk for impaired skin integrity will decrease Outcome: Progressing Goal: Ability to demonstrate warm and dry skin will improve Outcome: Progressing Goal: Circulation will improve to fullest extent possible Outcome: Progressing Problem: Lack of Knowledge: Goal: Ability to state ways to decrease the risk of falls will improve Outcome: Progressing Problem: Safety: Goal: Will remain free from falls Outcome: Progressing Goal: Will remain free from injury from falls Outcome: Progressing Goal: Will remain free from falls and injury in home environment Outcome: Progressing Problem: Lack of Knowledge: Goal: Ability to develop a pain control plan will improve Outcome: Progressing Goal: Ability to identify pain intensity on a pain scale and rate it consistently will improve Outcome: Progressing Goal: Ability to notify healthcare provider of pain before it becomes unmanageable or unbearable will improve Outcome: Progressing Problem: Medication: Goal: Satisfaction with pain management regimen will improve Outcome: Progressing Problem: Sensory: Goal: Ability to identify factors that increase the pain will improve Outcome: Progressing Goal: Pain level will decrease Outcome: Progressing Problem: Lack of Knowledge: Goal: Verbalization of understanding the information provided will improve Outcome: Progressing Problem: Physical Regulation: Goal: Complications related to the disease process, condition or treatment will be avoided or minimized Outcome: Progressing Goals: Clinical Goals for the Shift: Remain hemodynamically stable and free of injury Summary: VSS. No injuries this shift. Pt sat up in chair for about an hour and half. Pt encouraged to eat at meal times, but wants to just sleep most of the day. No new complaints. Pt resting in bed with call light within reach. RETE TESTER * Plan of Care - Kanwal Deleon RN - 07/23/2023 5:19 AM CST Goals: Clinical Goals for the Shift: Pt to remain safe with vss Summary: Pt has been safe this shift. No complaints voiced. Turned for comfort and to maintain skinintegrity. VSS RETE TESTER * Plan of Care - Yovani Avila RRT - 07/22/2023 8:26 PM CST Overnight desat study held to be attempted tomorrow night. One machine available for use and prioritized to different pt with pending d/c at this time. Pt instead encouraged to wear bipap while sleeping tonight. Cosigned by Karen Zambrano MD at 07/23/2023 9:34 PM CONCRETE TESTER RETE TESTER RETE TESTER * Plan of Care - Wyatt Rodriguez RN - 07/22/2023 4:56 PM CST Problem: Health Behavior: Goal: Understanding of discharge needs will improve Outcome: Ongoing Problem: Activity: Goal: Mobility will improve Outcome: Ongoing Problem: Lack of Knowledge: Goal: Understanding of ways to prevent future skin breakdown will improve Outcome: Ongoing Goal: Ability to identify appropriate dietary choices will improve Outcome: Ongoing Problem: Nutritional: Goal: Dietary intake will improve Outcome: Ongoing Goal: Ability to maintain a balanced intake and output will improve Outcome: Ongoing Problem: Skin Integrity: Goal: Risk for impaired skin integrity will decrease Outcome: Ongoing Goal: Ability to demonstrate warm and dry skin will improve Outcome: Ongoing Goal: Circulation will improve to fullest extent possible Outcome: Ongoing Problem: Lack of Knowledge: Goal: Ability to state ways to decrease the risk of falls will improve Outcome: Ongoing Problem: Safety: Goal: Will remain free from falls Outcome: Ongoing Goal: Will remain free from injury from falls Outcome: Ongoing Goal: Will remain free from falls and injury in home environment Outcome: Ongoing Problem: Lack of Knowledge: Goal: Ability to develop a pain control plan will improve Outcome: Ongoing Goal: Ability to identify pain intensity on a pain scale and rate it consistently will improve Outcome: Ongoing Goal: Ability to notify healthcare provider of pain before it becomes unmanageable or unbearable will improve Outcome: Ongoing Problem: Medication: Goal: Satisfaction with pain management regimen will improve Outcome: Ongoing Problem: Sensory: Goal: Ability to identify factors that increase the pain will improve Outcome: Ongoing Goal: Pain level will decrease Outcome: Ongoing Problem: Lack of Knowledge: Goal: Verbalization of understanding the information provided will improve Outcome: Ongoing Problem: Physical Regulation: Goal: Complications related to the disease process, condition or treatment will be avoided or minimized Outcome: Ongoing Goals: Clinical Goals for the Shift: vss, remain hemodynamically stable, monotpr for paion RETE TESTER * Plan of Care - Tristan Akins LCSW - 07/22/2023 2:29 PM CST (2:43 p.m.) ALISA sent text message to Dr. Zambrano letting her know that this assistant professor sculpture called [employer] to inform them of a change in this patient's condition, and to ask that they postpone their decision about SNF until this patient is medically more appropriate for discharge. This assistant professor sculpture explained that he was trying to help the physician not having to make this call. (2:22 p.m.) ALISA called [employer] peer to peer number at [phone] to share that this patientis currently requiring BiPAP, and that this assistant professor sculpture is asking that the request for SNF be held until patient is in better condition, medically. This assistant professor sculpture left patient's name, date of , member ID, and this assistant professor sculpture's contact information should the medical detailist at [employer] requestany additional information. (2:15 p.m.) ALISA called [facility] at [phone] and spoke with Tiffany in admissions. This assistant professor sculpture shared that patient's medical condition has changed and she is now requiring a BiPAP. This assistant professor sculpture spoke with Tiffany about potentially putting a hold on this patient's request for SNF, ratherthan completing a peer to peer when this patient is not medically appropriate for discharge. Tiffany recommended that this assistant professor sculpture attempt to reach out to the medical detailist at [employer] to notify them of patient's change in condition. Tiffany also stated that she will be out of office for 10 days but this assistant professor sculpture can reach out to [facility] in her absence with any updated notes on this patient. (2:08 p.m.) ALISA received a voice message from Tiffany with [facility] stating that she has received notice from [facility] of intent to deny patient's request for SNF. Tiffany then provided information pertaining to [facility]'s offer for this patient's physician to complete a peer to peer. Peer to peer must be completed by 4:30 p.m. on Tuesday, July 22, 2023. Peer to peer contact number: [phone] option 4 RETE TESTER RETE TESTER RETE TESTER * Plan of Care - Tristan Akins LCSW - 07/22/2023 10:44 AM CST (12:00 p.m.) ALISA faxed a copy of this patient's Medicare card to Angi, assistance business objects architect, [facility] at [phone]. (10:43 a.m.) ALISA called [facility] at [phone] and spoke with Angi, mail handler assistant business objects architect, who stated that Shasta submitted for insurance authorization without this patient's Medicare card. Angi asked if this assistant professor sculpture could please fax a copy of this patient's Medicare card to her at [phone] whenever this patient's spouse has arrived and presents this information. RETE TESTER RETE TESTER * Plan of Care - Laura Garcia RN - 07/22/2023 3:55 AM CST Problem: Health Behavior: Goal: Understanding of discharge needs will improve Outcome: Progressing Problem: Lack of Knowledge: Goal: Understanding of ways to prevent future skin breakdown will improve Outcome: Progressing Problem: Skin Integrity: Goal: Risk for impaired skin integrity will decrease Outcome: Progressing Goal: Ability to demonstrate warm and dry skin will improve Outcome: Progressing Goal: Circulation will improve to fullest extent possible Outcome: Progressing Problem: Lack of Knowledge: Goal: Ability to state ways to decrease the risk of falls will improve Outcome: Progressing Problem: Safety: Goal: Will remain free from falls Outcome: Progressing Goal: Will remain free from injury from falls Outcome: Progressing Goal: Will remain free from falls and injury in home environment Outcome: Progressing Problem: Lack of Knowledge: Goal: Ability to develop a pain control plan will improve Outcome: Progressing Problem: Sensory: Goal: Pain level will decrease Outcome: Progressing Goals: Clinical Goals for the Shift: VSS, safety, comfort Summary: VSS. Remains free of falls/injury, bed alarm on for safety. Call light within reach, pt able to make needs and wants known. RETE TESTER * Plan of Care - Tristan Akins LCSW - 07/21/2023 3:37 PM CST (4:20 p.m.) ALISA called patient's spouse, Francesco, at [phone] and spoke with him briefly about the possibility of finding this patient's Medicare card. This assistant professor sculpture shared that [facility] has reported they are willing to admit this patient and are going to submit for insurance authorization, but were wondering if this assistant professor sculpture had the patient's Medicare number. Patient's spouse reported that ???when we got our [employer] cards they told us to put the other ones away. I will look this evening to see if I can find it and will be at the hospital tomorrow.?? (3:51 p.m.) ALISA faxed updated information about this patient to [facility] via [employer]. (3:44 p.m.) ALISA received a phone call from Shasta, business objects architect at [facility], asking this assistant professor sculpture if he happens to have this patient's Medicare ID. Shasta stated that she had this patient's [employer] card is in need of this patient's Medicare card. This assistant professor sculpture reviewed patient'schart and stated that he is not finding this patient's Medicare card. This assistant professor sculpture shared that he can speak with the patient or her about obtaining this information. Shasta stated that she will call [employer] to see, if perhaps, they have the information she needs. (3:33 p.m.) ALISA called [facility] at [phone] and spoke with Tiffany in admissions. Tiffanyasked this assistant professor sculpture if the patient will be discharging on any IV antibiotics. This assistant professor sculpture reviewed patient's chart and stated that the patient is not currently on any IV antibiotics. Tiffany asked that this assistant professor sculpture please send any updated therapy notes if available, and stated that she was submit for [employer] on this patient. RETE TESTER RETE TESTER * Plan of Care - Wyatt Rodriguez RN - 07/21/2023 3:20 PM CST Problem: Health Behavior: Goal: Understanding of discharge needs will improve Outcome: Progressing Problem: Activity: Goal: Mobility will improve Outcome: Progressing Problem: Lack of Knowledge: Goal: Understanding of ways to prevent future skin breakdown will improve Outcome: Progressing Goal: Ability to identify appropriate dietary choices will improve Outcome: Progressing Problem: Nutritional: Goal: Dietary intake will improve Outcome: Progressing Goal: Ability to maintain a balanced intake and output will improve Outcome: Progressing Problem: Skin Integrity: Goal: Risk for impaired skin integrity will decrease Outcome: Progressing Goal: Ability to demonstrate warm and dry skin will improve Outcome: Progressing Goal: Circulation will improve to fullest extent possible Outcome: Progressing Problem: Lack of Knowledge: Goal: Ability to state ways to decrease the risk of falls will improve Outcome: Progressing Problem: Safety: Goal: Will remain free from falls Outcome: Progressing Goal: Will remain free from injury from falls Outcome: Progressing Goal: Will remain free from falls and injury in home environment Outcome: Progressing Problem: Lack of Knowledge: Goal: Ability to develop a pain control plan will improve Outcome: Progressing Goal: Ability to identify pain intensity on a pain scale and rate it consistently will improve Outcome: Progressing Goal: Ability to notify healthcare provider of pain before it becomes unmanageable or unbearable will improve Outcome: Progressing Problem: Medication: Goal: Satisfaction with pain management regimen will improve Outcome: Progressing Problem: Sensory: Goal: Ability to identify factors that increase the pain will improve Outcome: Progressing Goal: Pain level will decrease Outcome: Progressing Problem: Lack of Knowledge: Goal: Verbalization of understanding the information provided will improve Outcome: Progressing Problem: Physical Regulation: Goal: Complications related to the disease process, condition or treatment will be avoided or minimized Outcome: Progressing Goals: Clinical Goals for the Shift: vss, remain hemodynamically stable Summary: Vitals stable, patient hemodynamically stable, running A-flutter on monitor, patient has been turning Q2, patient is stable and afebrile at this time. RETE TESTER * Plan of Care - Tristan Akins LCSW - 07/21/2023 11:18 AM CST (12:32 p.m.) ALISA Faxed referrals to the following facilities via [employer]. Facilities are listed in order of preference. 1. [place] 2. [facility] 3. [facility] 4. [facility] 5. [facility] (12:11 p.m.) SW received text message from patient's spouse, Francesco, at [phone] identifying the following five facilities as SNFs of preference. Patient's spouse did include the fact that he is waiting to hear from [facility] to see if they will accept [employer]. 1. [place] 2. [facility] 3. [facility] 4. [facility] 5. [facility] (11:17 a.m.) SW submitted patient's PASRR LEVEL I screening (queued for review) and printed patient's Facesheet for OBRA screener. (11:01 a.m.) SW went to patient's room to speak with patient's spouse, Francesco ???Demetrius Lal, about his feelings regarding this patient's discharge to home. Patient's spouse reported that he does not feel that he is capable of providing the level of care this patient needs at this time. Patient'sspouse was agreeable to this assistant professor sculpture printing an SNF list and returning to this patient's room. SW printed an SNF list, returned to patient's room, and spoke with patient's spouse about the process of identifying a minimum of 3 to 5 facilities of preference for this assistant professor sculpture to make referrals. Patient's spouse was encouraged to either call or text message his top 3 to 5 facilities of preference for this assistant professor sculpture, and is aware that if none of the top preferences can accept he will have to identify additional [place] [facility] facilities. RETE TESTER RETE TESTER * Plan of Care - Tristan Akins LCSW - 07/21/2023 9:09 AM CST (10:14 a.m.) ALISA attempted to reach patient's spouse, Francesco, at [phone] without success. ALISA did, however, leave a voice message explaining the reason for this assistant professor sculpture's call and asking that Mr. Lal please call this assistant professor sculpture back at his earliest convenience to further discuss patient's discharge plan. (8:59 a.m.) SW went to patient's room to speak with patient about discharge planning. Patient was awake, alert, and oriented x4. Patient voiced that she understands therapy is recommending she needs to go to an area SNF but patient would prefer to go home. Patient reported that she has a spouse dequan worker that comes to her residence. This assistant professor sculpture asked patient if she would, at least, consider working with a home health agency to help work on regaining some strength. Patient voiced that she has worked with home health in the past and is amenable to doing so again in the future. Patient was very pleasant and apologized before stating ???I just want to go home.?? RETE TESTER RETE TESTER * Plan of Care - Tristan Akins LCSW - 07/21/2023 8:51 AM CST (8:51 a.m.) SW completed patient's PASRR LEVEL I screening (remains in draft). RETE TESTER * Plan of Care - Zaria Mitchell RN - 07/21/2023 5:19 AM CST Problem: Health Behavior: Goal: Understanding of discharge needs will improve Outcome: Progressing Problem: Activity: Goal: Mobility will improve Outcome: Progressing Problem: Lack of Knowledge: Goal: Understanding of ways to prevent future skin breakdown will improve Outcome: Progressing Goal: Ability to identify appropriate dietary choices will improve Outcome: Progressing Problem: Nutritional: Goal: Dietary intake will improve Outcome: Progressing Goal: Ability to maintain a balanced intake and output will improve Outcome: Progressing Problem: Skin Integrity: Goal: Risk for impaired skin integrity will decrease Outcome: Progressing Goal: Ability to demonstrate warm and dry skin will improve Outcome: Progressing Goal: Circulation will improve to fullest extent possible Outcome: Progressing Problem: Lack of Knowledge: Goal: Ability to state ways to decrease the risk of falls will improve Outcome: Progressing Problem: Safety: Goal: Will remain free from falls Outcome: Progressing Goal: Will remain free from injury from falls Outcome: Progressing Goal: Will remain free from falls and injury in home environment Outcome: Progressing Problem: Lack of Knowledge: Goal: Ability to develop a pain control plan will improve Outcome: Progressing Goal: Ability to identify pain intensity on a pain scale and rate it consistently will improve Outcome: Progressing Goal: Ability to notify healthcare provider of pain before it becomes unmanageable or unbearable will improve Outcome: Progressing Problem: Medication: Goal: Satisfaction with pain management regimen will improve Outcome: Progressing Problem: Sensory: Goal: Ability to identify factors that increase the pain will improve Outcome: Progressing Goal: Pain level will decrease Outcome: Progressing Problem: Lack of Knowledge: Goal: Verbalization of understanding the information provided will improve Outcome: Progressing Problem: Physical Regulation: Goal: Complications related to the disease process, condition or treatment will be avoided or minimized Outcome: Progressing Goals: Clinical Goals for the Shift: VSS, Comfort, Saftey Summary: VSS. Pt c/o pain once overnight, Prn pain meds given per sep. Pt remained free from falls and injuries, bedalarm in place for safety. Stafford draining to gravity. Q2 turns done for skin integrity. Pt makes all wants and needs known, pt resting with call light in reach. RETE TESTER * Plan of Care - Ayala Garcia RN - 07/20/2023 5:07 PM CST Problem: Health Behavior: Goal: Understanding of discharge needs will improve Outcome: Progressing Problem: Activity: Goal: Mobility will improve Outcome: Progressing Problem: Lack of Knowledge: Goal: Understanding of ways to prevent future skin breakdown will improve Outcome: Progressing Goal: Ability to identify appropriate dietary choices will improve Outcome: Progressing Problem: Nutritional: Goal: Dietary intake will improve Outcome: Progressing Goal: Ability to maintain a balanced intake and output will improve Outcome: Progressing Problem: Skin Integrity: Goal: Risk for impaired skin integrity will decrease Outcome: Progressing Goal: Ability to demonstrate warm and dry skin will improve Outcome: Progressing Goal: Circulation will improve to fullest extent possible Outcome: Progressing Problem: Lack of Knowledge: Goal: Ability to state ways to decrease the risk of falls will improve Outcome: Progressing Problem: Safety: Goal: Will remain free from falls Outcome: Progressing Goal: Will remain free from injury from falls Outcome: Progressing Goal: Will remain free from falls and injury in home environment Outcome: Progressing Problem: Lack of Knowledge: Goal: Ability to develop a pain control plan will improve Outcome: Progressing Goal: Ability to identify pain intensity on a pain scale and rate it consistently will improve Outcome: Progressing Goal: Ability to notify healthcare provider of pain before it becomes unmanageable or unbearable will improve Outcome: Progressing Problem: Medication: Goal: Satisfaction with pain management regimen will improve Outcome: Progressing Problem: Sensory: Goal: Ability to identify factors that increase the pain will improve Outcome: Progressing Goal: Pain level will decrease Outcome: Progressing Problem: Lack of Knowledge: Goal: Verbalization of understanding the information provided will improve Outcome: Progressing Problem: Physical Regulation: Goal: Complications related to the disease process, condition or treatment will be avoided or minimized Outcome: Progressing Goals: Clinical Goals for the Shift: VSS, comfort and safety Summary: VSS, oriented to IMU 2620. A&Ox4. No complaints, able to make needs known. Call light in reach. RETE TESTER * Plan of Care - Bruna Hassan RN - 07/20/2023 3:09 AM CST Goals: Clinical Goals for the Shift: VSS, maintain stable cardiac rate and rhythm, rset comfortably Summary: VSS, Pt HR is stable 70-80s but rhythm has frequent ectopy. RR 25-35 but unlabored and no SOB. Pt encouraged to turn every 2 hours but refused at times, education given several times on the importance of turning to protect skin integrity. PRN NORCO given 1x upon pt request. Problem: Health Behavior: Goal: Understanding of discharge needs will improve Outcome: Progressing Problem: Activity: Goal: Mobility will improve Outcome: Progressing Problem: Lack of Knowledge: Goal: Understanding of ways to prevent future skin breakdown will improve Outcome: Progressing Goal: Ability to identify appropriate dietary choices will improve Outcome: Progressing Problem: Nutritional: Goal: Dietary intake will improve Outcome: Progressing Goal: Ability to maintain a balanced intake and output will improve Outcome: Progressing Problem: Skin Integrity: Goal: Risk for impaired skin integrity will decrease Outcome: Progressing Goal: Ability to demonstrate warm and dry skin will improve Outcome: Progressing Goal: Circulation will improve to fullest extent possible Outcome: Progressing Problem: Lack of Knowledge: Goal: Ability to state ways to decrease the risk of falls will improve Outcome: Progressing Problem: Safety: Goal: Will remain free from falls Outcome: Progressing Goal: Will remain free from injury from falls Outcome: Progressing Goal: Will remain free from falls and injury in home environment Outcome: Progressing Problem: Lack of Knowledge: Goal: Ability to develop a pain control plan will improve Outcome: Progressing Goal: Ability to identify pain intensity on a pain scale and rate it consistently will improve Outcome: Progressing Goal: Ability to notify healthcare provider of pain before it becomes unmanageable or unbearable will improve Outcome: Progressing Problem: Medication: Goal: Satisfaction with pain management regimen will improve Outcome: Progressing Problem: Sensory: Goal: Ability to identify factors that increase the pain will improve Outcome: Progressing Goal: Pain level will decrease Outcome: Progressing Problem: Lack of Knowledge: Goal: Verbalization of understanding the information provided will improve Outcome: Progressing Problem: Physical Regulation: Goal: Complications related to the disease process, condition or treatment will be avoided or minimized Outcome: Progressing RETE TESTER * Plan of Care - Kim Lobo RN - 07/19/2023 3:51 PM CST Problem: Health Behavior: Goal: Understanding of discharge needs will improve Outcome: Progressing Problem: Lack of Knowledge: Goal: Understanding of ways to prevent future skin breakdown will improve Outcome: Progressing Goal: Ability to identify appropriate dietary choices will improve Outcome: Progressing Problem: Nutritional: Goal: Dietary intake will improve Outcome: Progressing Goal: Ability to maintain a balanced intake and output will improve Outcome: Progressing Problem: Skin Integrity: Goal: Ability to demonstrate warm and dry skin will improve Outcome: Progressing Goal: Circulation will improve to fullest extent possible Outcome: Progressing Problem: Lack of Knowledge: Goal: Ability to state ways to decrease the risk of falls will improve Outcome: Progressing Problem: Safety: Goal: Will remain free from falls Outcome: Progressing Goal: Will remain free from injury from falls Outcome: Progressing Goal: Will remain free from falls and injury in home environment Outcome: Progressing Problem: Lack of Knowledge: Goal: Ability to develop a pain control plan will improve Outcome: Progressing Goal: Ability to identify pain intensity on a pain scale and rate it consistently will improve Outcome: Progressing Goal: Ability to notify healthcare provider of pain before it becomes unmanageable or unbearable will improve Outcome: Progressing Problem: Medication: Goal: Satisfaction with pain management regimen will improve Outcome: Progressing Problem: Sensory: Goal: Ability to identify factors that increase the pain will improve Outcome: Progressing Goal: Pain level will decrease Outcome: Progressing Problem: Lack of Knowledge: Goal: Verbalization of understanding the information provided will improve Outcome: Progressing Problem: Physical Regulation: Goal: Complications related to the disease process, condition or treatment will be avoided or minimized Outcome: Progressing Problem: Activity: Goal: Mobility will improve Outcome: Not Progressing Problem: Skin Integrity: Goal: Risk for impaired skin integrity will decrease Outcome: Not Progressing Goals: Clinical Goals for the Shift: VS stable; Maintain comfort and safety; Maintain warm and dry skin; Improved heart rate and rhythm Summary: VS have remained stable; Comfort and safety have been maintained; SOPHIE was performed with cardioversion with MD at bedside; Procedure was completed successfully. RETE TESTER * Post-Procedure Note - Camelia Trimble RN - 07/19/2023 1:55 PM CONCRETE TESTER Double lumen PICC inserted in right upper arm using sterile technique. Some resistance threading catheter. Chest x-ray ordered to confirm placement d/t pt in a-fib. Both lumens flush easily with goodblood return. No bleeding or hematoma noted at this time. Pt tolerated procedure well but couldn't tolerate drape over head d/t sob. RETE TESTER * Provider Query - Maciel Jean MD - 07/19/2023 12:35 PM CST Specify the Acuity and Type of respiratory failure, and document in the medical record and on the form below. Acuity _x__ Acute ___ Other Type ___ Respiratory failure with hypoxia ___ Respiratory failure with hypercapnia __x_ Respiratory failure with hypoxia and hypercapnia ___ Other, specify below Additional Provider Response: Clinical Indicators/Treatments: ED Provider Note: presents via EMS with nausea vomiting and diarrhea with an O2 sat of 89%. Husbandstates she has been feeling poorly for several days and he has been helping take care of her. Patient does not wear home O2. 07-16-2023 SpO2 91% on 2 Liters O2 per nasal canula H&P states: 78 y.o. female seen in consultation for shortness of breath dehydration GI symptomsrespiratory failure UTI and troponin elevations. Treatment: supplemental O2 (2-5 Liters per nasal canula), ICU monitoring, monitoring labs/vital signs, duo-neb treatments References: Respiratory Failure Screening Criteria Acute Respiratory Failure PATIENT DOES NOT NEED TO MEET ALL CRITERIA, INTUBATION IS NOT REQUIRED. Supplemental Oxygen New supplemental O2 greater than or equal to 40 percent (5 liters/minute per nasal cannula) or New oxygen requirement in setting of 1 or more of the below results or vitals, Results or Vitals (1 or more of the following) pCO2 greater than 50 and pH less than 7.35 pO2 at or below 55 mmHg or SpO2 (pulse oximetry) less than 88% on RA pO2 decrease or pCO2 increase by 10 mmHg from baseline if known P/F ratio (pO2/FiO2) less than 300 Other signs and symptoms may include: Tachypnea, dyspnea, shortness of breath, wheezing Air hunger Use of accessory muscles of respiration Inability to speak in full sentences Cyanosis or pallor Anxiety or restlessness Positioning of the patient???s body (for example, tripod breathing) Chronic Respiratory Failure Dependence on continuous (24 hours a day) home O2 or non-invasive mechanical ventilation (BiPAP, AVAPS, etc.) Acute on Chronic Respiratory Failure Exacerbation or decompensation of chronic respiratory failure recognized by any of the following: pCO2 greater than 50 mmHg + pH less than 7.35 Increase in baseline pCO2 (if known) by 10 mmHg or more pO2 less than 55 mmHg or SpO2 less than 88% on patient???s baseline oxygen rate or higher Worsening dyspnea requiring an increase in chronic supplemental oxygen Greater hypoxemia (decreased pO2 or SpO2 from baseline, if known) If provider believes patient has respiratory failure in the absence of above clinical indicators, please document rationale and clinical impression in detail Respiratory Failure References [employer] Hospitalist Jun 2013 Coding Clinics: 3rd Q 1987, p 7 and 2nd Q 1989, p.20 [email or web address].gov/axskohnf-sia-rxpzlrbfm/medicare-learning-network-mln/mlnprod ucts/downloads/unei-qotgwg-wugoylx-text-only.pdf From the ICD-10-CM Official Guidelines for Coding and Reporting, use of terms such as likely, suspected, possible, or probable (associated with a specific diagnosis that is being evaluated, monitored, or treated as if it exists) are acceptable and can be coded in the inpatient setting when documented at the time of discharge. This documentation will become part of the patient???s medical record. Sincerely, Saranya Shepherd RN, CCDS [phone] Clinical Facialist RETE TESTER * Provider Query - Maciel Jean MD - 07/19/2023 12:34 PM CST Specify if the diagnosis of sepsis that is documented in the cardiology progress note on [id number] been confirmed or ruled out after study. ___ Sepsis Diagnosis confirmed _x__ Sepsis Diagnosis ruled out ___ Other, specify below Additional Provider Response: Clinical Indicators/Treatments: ED Vital Signs: Temp. 97.6, Pulse 94, Respirations 20 07-19-2023 Cardiology Progress Note: Elevated cardiac troponins likely due to multiple etiologies: underlying UTI/sepsis and also acute kidney injury. 07-19-2023 Progress Note: ID: Continue ceftriaxone for UTI, 24 hour min/max vitals: Pulse Min: 79 Max: 111, Resp Min: 14 Max: 38 Latest Reference Range & Units 07/16/23 22:03 07/17/23 04:42 WBC 3.8 - 9.9 K/cumm 16.6 (H) 17.4 (H) Latest Reference Range & Units 07/17/23 01:34 Lactate 0.7 - 2.0 mmol/L 2.2 (H) References: Adult SIRS/Sepsis Screening Criteria SIRS Temp >38.3 C (100.9 F) or <36 (96.8 F) HR (pulse) >90 Respiratory rate >20 WBC > 12,000 or <4,000 or >10% bands Sepsis 2 of 4 SIRS criteria present AND suspected/confirmed source of infection Severe Sepsis Sepsis plus at least one sign of NEW hypoperfusion or organ dysfunction not limited to but may include: Lactate >2 mmol/L INR > 1.5 or aPTT >60 seconds Platelet count <100,000 ?L?1 Bilirubin >2 mg/dL Creatinine >2 mg/dL (if no documentation of renal failure) Urine output <0.5 mL/kg/hr x 2 hours Acute respiratory failure with new need for mechanical ventilation or noninvasive ventilation Altered mental status or Encephalopathy (new or acutely worsened due to infection) One or more reading(s) of hypotension prior to 30ml/kg fluid bolus (SBP< 90 mmHG or MAP< 65, or SBP decrease of > 40 mmHG from baseline) Septic Shock Severe sepsis patients with: Two or more readings of hypotension (SBP <90 or MAP< 65) after 30ml/kg fluid bolus, often requiring vasopressors or Lactate >=4 References: From the ICD-10-CM Official Guidelines for Coding and Reporting, use of terms such as likely, suspected, possible, or probable (associated with a specific diagnosis that is being evaluated, monitored, or treated as if it exists) are acceptable and can be coded in the inpatient setting when documented at the time of discharge. This documentation will become part of the patient???s medical record. Sincerely, Saranya Shepherd RN, CCDS [phone] Clinical Facialist RETE TESTER * Post-Procedure Note - Camelia Trimble RN - 07/19/2023 12:20 PM CONCRETE TESTER Attempted over the wire exchange on left upper arm midline. Was unable to thread guidewire. Possibly pulled back too far on midline. Pulled midline and placed dressing to upper arm. Will attempt placement in right upper arm. Pt tolerated procedure well. RETE TESTER * Plan of Care - Delmar Mcdaniel RN - 07/19/2023 3:28 AM CST Problem: Health Behavior: Goal: Understanding of discharge needs will improve Outcome: Progressing Problem: Activity: Goal: Mobility will improve Outcome: Progressing Problem: Lack of Knowledge: Goal: Understanding of ways to prevent future skin breakdown will improve Outcome: Progressing Goal: Ability to identify appropriate dietary choices will improve Outcome: Progressing Problem: Nutritional: Goal: Dietary intake will improve Outcome: Progressing Goal: Ability to maintain a balanced intake and output will improve Outcome: Progressing Problem: Skin Integrity: Goal: Risk for impaired skin integrity will decrease Outcome: Progressing Goal: Ability to demonstrate warm and dry skin will improve Outcome: Progressing Goal: Circulation will improve to fullest extent possible Outcome: Progressing Problem: Lack of Knowledge: Goal: Ability to state ways to decrease the risk of falls will improve Outcome: Progressing Problem: Safety: Goal: Will remain free from falls Outcome: Progressing Goal: Will remain free from injury from falls Outcome: Progressing Goal: Will remain free from falls and injury in home environment Outcome: Progressing Problem: Lack of Knowledge: Goal: Ability to develop a pain control plan will improve Outcome: Progressing Goal: Ability to identify pain intensity on a pain scale and rate it consistently will improve Outcome: Progressing Goal: Ability to notify healthcare provider of pain before it becomes unmanageable or unbearable will improve Outcome: Progressing Problem: Medication: Goal: Satisfaction with pain management regimen will improve Outcome: Progressing Problem: Sensory: Goal: Ability to identify factors that increase the pain will improve Outcome: Progressing Goal: Pain level will decrease Outcome: Progressing Problem: Lack of Knowledge: Goal: Verbalization of understanding the information provided will improve Outcome: Progressing Problem: Physical Regulation: Goal: Complications related to the disease process, condition or treatment will be avoided or minimized Outcome: Progressing Goals: Clinical Goals for the Shift: VSS, improved respiratory status, improved heart rate and rhythm, maintain comfort and safety Summary: VSS, pt remains on o2 at 5l/nc, remains sob with exertion, heart rhythm remains in afib, rate is controlled in the 70-90's, comfort and safety maintained. RETE TESTER * Pre-Sedation Documentation - John Dominguez MD - 07/18/2023 5:04 PM CONCRETE TESTER Sedation Plan ASA 3 - Severe systemic disease Sedation/Anesthesia Plan - moderate sedation Mallampati class: III. Risks, benefits, and alternatives discussed with patient. RETE TESTER * Perioperative Nursing Note - Maninder Ibrahim RN - 07/18/2023 4:33 PM CONCRETE TESTER Bedside report given to Adriana GUIDRY. Puncture site assessed. Site was clean, dry, intact, with no swelling or hematoma present. Patient vital signs stable during transport. Care transferred back to ICU. RETE TESTER * Post-Procedure Note - Camelia Trimble RN - 07/18/2023 3:10 PM CONCRETE TESTER Single lumen midline inserted in left upper arm using sterile technique x 2 attempts. First attempthad good blood return but guidewire would not thread. Flushes easily with good blood return. No bleeding or hematoma noted at this time. Pt tolerated procedure well but was unable to cover head d/t pt dyspneic. RETE TESTER * Initial Assessments - Aviva Zhong RN - 07/18/2023 2:15 PM CST CM Initial Assessment Interview Note Admission Source: ED EMS Impression: desaturations, nausea, vomiting, diarrhea Plan Includes: Assessment and DC planning Primary Source of Transportation: Does the patient need discharge transport arranged?: No (07/18/23 1410) Health Insurance Coverage: [employer] Medicare Prescription Coverage: yes Pharmacy: [id number] - [place], [place] - [address] AT [place] [id number]) & [address] [facility] [id number] Primary Care Provider: Tristan Watson MD Prior to Admission: Functional Status: Independent with ADLs Primary Caregiver: Self Support System: Spouse/Significant Other, Home care staff Home Care Services: Yes Type of Home Care Services: Attendant Home care service name and phone number: private pay attendant 3 hours each afternoon Tuesday through Tuesday Durable Medical Equipment: Cane (single prong), Walker (wheeled), Wheelchair, Bedside commode Living Arrangements: Spouse/significant other Type of Residence: Private residence Facility contact name and number:: Francesco Lal () Steps in home?: No steps inside or outside Medication management: Independent (07/17/23 0415) SDOH: Transportation: Financial Resource: Housing: Social Connections: Food Insecurity: Alcohol Use: PHQ Screening Potential discharge needs include: Home Health: Physical therapy, Occupational therapy (07/18/23 141) Dialysis: Behavioral Health Services: Behavioral Health Services: No (07/18/231409) Patient expects to be Discharged to: Private residence, (07/18/23 141) Additional Information: DC plan discussed with patient in her ICU room. She lives with her and he may be her ride home. If not, she says she can find a ride. She has a private pay coding specialist home health Tuesday through Tuesday afternoons for 3 hours each day. She states that she cannot make it upstairs to the shower, so they do a bed bath. She does NOT wear oxygen at home. Barrier to DC will be non-resolution of presenting symptoms and their causes, need for further testing and treatment. CM willcontinue to monitor for any potential new home needs. Patient's Identified Problem/Goal Problem: Ensure acute medical needs are met and that patient has a safe discharge plan. Goal: Secure a discharge plan that patient/family are agreeable with and ensure patient has continuum of care. Case management will follow for discharge planning and send referrals as needed. Aviva Zhong RN, BSN, CM RETE TESTER RETE TESTER * Plan of Care - Jarocho Slaughter RN - 07/18/2023 4:29 AM CST Problem: Health Behavior: Goal: Understanding of discharge needs will improve Outcome: Progressing Problem: Lack of Knowledge: Goal: Understanding of ways to prevent future skin breakdown will improve Outcome: Progressing Goal: Ability to identify appropriate dietary choices will improve Outcome: Progressing Problem: Nutritional: Goal: Dietary intake will improve Outcome: Progressing Goal: Ability to maintain a balanced intake and output will improve Outcome: Progressing Problem: Skin Integrity: Goal: Risk for impaired skin integrity will decrease Outcome: Progressing Goal: Ability to demonstrate warm and dry skin will improve Outcome: Progressing Goal: Circulation will improve to fullest extent possible Outcome: Progressing Problem: Lack of Knowledge: Goal: Ability to state ways to decrease the risk of falls will improve Outcome: Progressing Problem: Safety: Goal: Will remain free from falls Outcome: Progressing Goal: Will remain free from injury from falls Outcome: Progressing Problem: Activity: Goal: Mobility will improve Outcome: Not Progressing Problem: Safety: Goal: Will remain free from falls and injury in home environment Outcome: Not Progressing Goals: Clinical Goals for the Shift: Maintain comfort and safety. Improve respiratory status. Wean o2. Adequate I@O's. Stable V/S's. Summary: Patient has been A/O x 4. Did C/O lower back pain during shift. Pain medications were given with good results. No complaints of pain since. Respirations have been even and unlabored. Has been on 4 liters per nasal cannula. SpO2 has been maintained in the 90's. Has taken po fluids and pills without difficulties. Urine output has been adequate. No stools overnight. V/S's have been stable. RETE TESTER * Plan of Care - Edna Valladares RN - 07/17/2023 5:57 PM CST Goals: Clinical Goals for the Shift: vss, improve respiratory status, no cp, improve uop, comfort and safety Summary: vss. Remains on 3L/nc supplemental oxygen with sp02 mid to upper 90s. No complaints of chest pain. Poor urine output, but also poor po fluid intake. Fluids encouraged. Medicated x 1 for c/o generalized aches. No attempts to get oob unassisted. Uses call light appropriately. Refuses turns, stating she's comfortable the way she is. Educated on need for turning to prevent skin break down but pt continues to refuse. Problem: Health Behavior: Goal: Understanding of discharge needs will improve Outcome: Progressing Problem: Activity: Goal: Mobility will improve Outcome: Progressing Problem: Lack of Knowledge: Goal: Understanding of ways to prevent future skin breakdown will improve Outcome: Progressing Goal: Ability to identify appropriate dietary choices will improve Outcome: Progressing Problem: Skin Integrity: Goal: Risk for impaired skin integrity will decrease Outcome: Progressing Goal: Ability to demonstrate warm and dry skin will improve Outcome: Progressing Goal: Circulation will improve to fullest extent possible Outcome: Progressing RETE TESTER * Plan of Care - Jarocho Slaughter RN - 07/17/2023 6:17 AM CST Problem: Health Behavior: Goal: Understanding of discharge needs will improve Outcome: Progressing Problem: Lack of Knowledge: Goal: Understanding of ways to prevent future skin breakdown will improve Outcome: Progressing Goal: Ability to identify appropriate dietary choices will improve Outcome: Progressing Problem: Nutritional: Goal: Ability to maintain a balanced intake and output will improve Outcome: Progressing Problem: Skin Integrity: Goal: Risk for impaired skin integrity will decrease Outcome: Progressing Goal: Ability to demonstrate warm and dry skin will improve Outcome: Progressing Goal: Circulation will improve to fullest extent possible Outcome: Progressing Problem: Activity: Goal: Mobility will improve Outcome: Not Progressing Problem: Nutritional: Goal: Dietary intake will improve Outcome: Not Progressing Goals: Clinical Goals for the Shift: Improve respiratory status. Maintain comfort and safety. Stable V/S's. Adequate I@O's. Summary: Arrived on unit this a.m. Has been A/O X 4. Has denied any pain or discomfort. Respirations have been even and unlabored. Has been on 3 liters per nasal cannula. SpO2 has been maintained in the 90's. V/S's have been stable. No phone calls or visitors this shift. RETE TESTER documented in this encounter Plan of Treatment Not on file documented as of this encounter Procedures Procedure Name Priority Date/Time Associated Diagnosis Comments POCT GLUCOSE DEVICE Routine 07/29/2023 1 2:07 PM CONCRETE TESTER EGFR Routine 07/29/2023 4:51 AM CONCRETE TESTER CBC WITHOUT DIFFERENTIAL Routine 07/29/2023 4:51 AM CONCRETE TESTER PHOSPHORUS Routine 07/29/2023 4:51 AM CONCRETE TESTER BASIC METABOLIC PANEL Routine 07/29/2023 4:51 AM CONCRETE TESTER EGFR Routine 07/28/2023 3:48 AM CONCRETE TESTER CBC WITHOUT DIFFERENTIAL Routine 07/28/2023 3:48 AM CONCRETE TESTER PHOSPHORUS Routine 07/28/2023 3:48 AM CONCRETE TESTER BASIC METABOLIC PANEL Routine 07/28/2023 3:48 AM CONCRETE TESTER EGFR Routine 07/27/2023 3:53 AM CONCRETE TESTER CBC WITHOUT DIFFERENTIAL Routine 07/27/2023 3:53 AM CONCRETE TESTER PHOSPHORUS Routine 07/27/2023 3:53 AM CONCRETE TESTER BASIC METABOLIC PANEL Routine 07/27/2023 3:53 AM CONCRETE TESTER EGFR Routine 07/26/2023 5:42 AM CONCRETE TESTER CBC WITHOUT DIFFERENTIAL Routine 07/26/2023 5:42 AM CONCRETE TESTER PHOSPHORUS Routine 07/26/2023 5:42 AM CONCRETE TESTER BASIC METABOLIC PANEL Routine 07/26/2023 5:42 AM CONCRETE TESTER EGFR Routine 07/25/2023 8:53 AM CONCRETE TESTER DIFFERENTIAL AUTO Routine 07/25/2023 8:5 3 AM CONCRETE TESTER CBC WITH AUTO DIFFERENTIAL Routine 07/25/2023 8:53 AM CONCRETE TESTER PHOSPHORUS Routine 07/25/2023 8:53 AM CONCRETE TESTER BASIC METABOLIC PANEL Routine 07/25/2023 8:53 AM CONCRETE TESTER EGFR Routine 07/24/2023 4:32 AM CONCRETE TESTER PRO B-TYPE NATRIURETIC PEPTIDE Add-On 07/24/2023 4:32 AM CONCRETE TESTER CBC WITHOUT DIFFERENTIAL Routine 07/24/2023 4:32 AM CONCRETE TESTER PHOSPHORUS Routine 07/24/2023 4:32 AM CONCRETE TESTER MAGNESIUM Routine 07/24/2023 4:32 AM CONCRETE TESTER BASIC METABOLIC PANEL Routine 07/24/2023 4:32 AM CONCRETE TESTER EGFR Routine 07/23/2023 6:34 AM CONCRETE TESTER CBC WITHOUT DIFFERENTIAL Routine 07/23/2023 6:34 AM CONCRETE TESTER PHOSPHORUS Routine 07/23/2023 6:34 AM CONCRETE TESTER BASIC METABOLIC PANEL Routine 07/23/2023 6:34 AM CONCRETE TESTER POCT GLUCOSE DEVICE Routine 07/23/2023 2 :38 AM CONCRETE TESTER PULSE OXIMETRY STUDY Routine 07/22/2023 1:29 PM CONCRETE TESTER BLOOD GAS, ARTERIAL Routine 07/22/2023 1 :08 PM CONCRETE TESTER EGFR Routine 07/22/2023 5:14 AM CONCRETE TESTER CBC WITHOUT DIFFERENTIAL Routine 07/22/2023 5:14 AM CONCRETE TESTER PHOSPHORUS Routine 07/22/2023 5:14 AM CONCRETE TESTER BASIC METABOLIC PANEL Routine 07/22/2023 5:14 AM CONCRETE TESTER EGFR Routine 07/21/2023 6:30 AM CONCRETE TESTER CBC WITHOUT DIFFERENTIAL Routine 07/21/2023 6:30 AM CONCRETE TESTER PHOSPHORUS Routine 07/21/2023 6:30 AM CONCRETE TESTER COMPREHENSIVE METABOLIC PANEL Routine 07/21/2023 6:30 AM CONCRETE TESTER EGFR Routine 07/20/2023 4:05 AM CONCRETE TESTER PHOSPHORUS Routine 07/20/2023 4:05 AM CONCRETE TESTER COMPREHENSIVE METABOLIC PANEL Routine 07/20/2023 4:05 AM CONCRETE TESTER ECG 12-LEAD Routine 07/19/2023 3:34 PM CONCRETE TESTER XR CHEST 1 VIEW ED Urgent/IP Urgent 07/19/2023 2:06 PM CONCRETE TESTER EGFR Routine 07/19/2023 4:17 AM CONCRETE TESTER PHOSPHORUS Routine 07/19/2023 4:17 AM CONCRETE TESTER COMPREHENSIVE METABOLIC PANEL Routine 07/19/2023 4:17 AM CONCRETE TESTER TRANSESOPHAGEAL ECHOCARDIOGRAM (SOPHIE) W POSSIBLE CARDIOVERSION Routine 07/19/2023 12:00 AM CONCRETE TESTER LEFT HEART CATHETERIZATION WITH CORONARY ANGIOGRAPHY AND WITH AND WITHOUT LEFT VENTRICULOGRAM Routine 07/18/2023 4:02 PM CONCRETE TESTER NSTEMI (non-ST elevated myocardial infarction) (CMS/HCC) (HCC) ECG 12-LEAD STAT 07/18/2023 1:59 PM CONCRETE TESTER TRANSTHORACIC ECHO (TTE) COMPLETE W DOPPLER/CF WO CONTRAST Routine 07/18/2023 9:56 AM CONCRETE TESTER EGFR Routine 07/18/2023 3:34 AM CONCRETE TESTER PHOSPHORUS Routine 07/18/2023 3:34 AM CONCRETE TESTER MAGNESIUM Routine 07/18/2023 3:34 AM CONCRETE TESTER COMPREHENSIVE METABOLIC PANEL Routine 07/18/2023 3:34 AM CONCRETE TESTER THYROID FUNCTION CASCADE Routine 07/17/2023 8:27 AM CONCRETE TESTER CORTISOL Routine 07/17/2023 8:27 AM CONCRETE TESTER TROPONIN T HIGH-SENSITIVITY 6-HOUR Routine 07/17/2023 5:11 AM CONCRETE TESTER EGFR Routine 07/17/2023 5:11 AM CONCRETE TESTER PHOSPHORUS Routine 07/17/2023 5:11 AM CONCRETE TESTER MAGNESIUM Routine 07/17/2023 5:11 AM CONCRETE TESTER COMPREHENSIVE METABOLIC PANEL Routine 07/17/2023 5:11 AM CONCRETE TESTER INFECTION PREVENTION MRSA ONLY (STAPHYLOCOCCUS AUREUS) PCR Routine 07/17/2023 4:50 AM CONCRETE TESTER SEPSIS LACTATE WITH REFLEX Timed 07/17/2023 4:42 AM CONCRETE TESTER DIFFERENTIAL AUTO Routine 07/17/2023 4:4 2 AM CONCRETE TESTER CBC WITH AUTO DIFFERENTIAL Routine 07/17/2023 4:42 AM CONCRETE TESTER TROPONIN T HIGH-SENSITIVITY 4-HR Timed 07/17/2023 2:54 AM CONCRETE TESTER APTT STAT 07/17/2023 2:54 AM CONCRETE TESTER PROTIME-INR STAT 07/17/2023 2:54 AM CONCRETE TESTER SEPSIS LACTATE WITH REFLEX STAT 07/17/2023 1:34 AM CONCRETE TESTER ECG 12-LEAD STAT 07/17/2023 1:23 AM CONCRETE TESTER TROPONIN T HIGH-SENSITIVITY 2-HOUR Timed 07/17/2023 12:35 AM CONCRETE TESTER URINALYSIS AND REFLEX TO MICROSCOPIC AND CULTURE STAT 07/17/2023 12:35 AM CONCRETE TESTER URINALYSIS, MICROSCOPIC ONLY STAT 07/17/2023 12:35 AM CONCRETE TESTER URINE CULTURE STAT 07/17/2023 12:35 AM CONCRETE TESTER ECG 12-LEAD STAT 07/16/2023 11:05 PM CONCRETE TESTER TROPONIN T HIGH-SENSITIVITY SERIES (BASELINE, 2HR, 4HR, 6HR) Add-On 07/16/2023 10:49 PM CONCRETE TESTER BLOOD CULTURE STAT 07/16/2023 10:49 PM CONCRETE TESTER BLOOD CULTURE STAT 07/16/2023 10:49 PM CONCRETE TESTER XR CHEST 1 VIEW ED 07/16/2023 10:40 PM CONCRETE TESTER INFLUENZA A/B, RSV, AND COVID-19 PCR Routine 07/16/2023 10:03 PM CONCRETE TESTER EGFR STAT 07/16/2023 10:03 PM CONCRETE TESTER DIFFERENTIAL AUTO STAT 07/16/2023 10: 03 PM CONCRETE TESTER PRO B-TYPE NATRIURETIC PEPTIDE Add-On 07/16/2023 10:03 PM CONCRETE TESTER CBC WITH AUTO DIFFERENTIAL STAT 07/16/2023 10:03 PM CONCRETE TESTER LIPASE STAT 07/16/2023 10:03 PM CONCRETE TESTER COMPREHENSIVE METABOLIC PANEL STAT 07/16/2023 10:03 PM CONCRETE TESTER documented in this encounter Results * (ABNORMAL) POCT glucose (07/29/2023 12:07 PM CONCRETE TESTER) Glucose, POC 110(H) 71 - 98 mg/dL [facility] ([place]) Blood 07/29/2023 12:0 7 PM CONCRETE TESTER 07/29/2023 12:07 PM CONCRETE TESTER us Krzysztof Sarah MD LAB POCT ORDERABLES - DEVICE Fin al Result [facility] ([place]) 1 [facility]ly [facility] Department [place] [address] * eGFR (07/29/2023 4:51 AM CONCRETE TESTER) eGFR 79 mL/min/1. 73 m2 [facility] ([place]) Comment: Interpretive Data Reference Interval Normal [...] interpretive data was last reviewed 2021. Blood 07/29/2023 4:51 AM CONCRETE TESTER 07/29/2023 4:54 AM CONCRETE TESTER us Karen Zambrano MD LAB BLOOD ORDERABLES Final Re sult Performing Organization Address City/[facility]/ZIP Co de Phone Number [facility] ([place]) 1 [facility]ly [facility] Department [place] [address] * (ABNORMAL) Basic metabolic panel (07/29/2023 4:51 AM CONCRETE TESTER) Sodium 139 135 - 145 mmol/L [facility] ([place]) Potassium, pl 3.3 3.3 - 4.9 mmol/L [facility] ([place]) Chloride 96(L) 97 - 110 mmol/L [facility] ([place]) CO2 38(H) 22 - 32 mmol/L [facility] ([place]) Anion gap 5 2 - 15 mmol/L [facility] ([place]) BUN 16 6 - 25 mg/dL [facility] ([place]) Creatinine 0.78 0.60 - 1.10 mg/dL [facility] ([place]) Glucose 92 70 - 199 mg/dL [facility] ([place]) [...] classification and Diagnosis of Diabetes Diabetes Care 202; 46: S19-S40. Current interpretive data was last revised 2022. Calcium 8.9 8.5 - 10.3 mg/dL [facility] ([place]) Blood 07/29/2023 4:51 AM CONCRETE TESTER 07/29/2023 4:54 AM CONCRETE TESTER Karen Zambrano MD LAB BLOOD ORDERABLES Final Re sult Performing Organization Address City/[facility]/ZIP Co de Phone Number [facility] ([place]) 1 [facility] Department [place] [address] * (ABNORMAL) CBC without differential (07/29/2023 4:51 AM CONCRETE TESTER) WBC 10.5(H) 3.8 - 9.9 K/cumm [facility] ([place]) Hgb 12.1 11.9 - 15.5 g/dL [facility] ([place]) Hct 37.0 35.6 - 45.5 % [facility] ([place]) Plt 231 150 - 400 K/cumm [facility] ([place]) MPV 8.7(L) 9.1 - 12.3 fL [facility] ([place]) RBC 3.79(L) 3.90 - 5.20 M/cumm [facility] ([place]) MCV 97.6(H) 81.3 - 96.4 fL [facility] ([place]) MCH 31.9 27.1 - 33.3 pg [facility] ([place]) MCHC 32.7 32.3 - 35.7 g/dL [facility] ([place]) RDW CV 15.8(H) 11.1 - 14.9 % [facility] ([place]) RDW SD 52.1(H) 35.7 - 48.1 fL [facility] ([place]) NRBC abs 0.02(H) 0.00 - 0.01 K/cumm [facility] ([place]) Blood 07/29/2023 4:51 AM CONCRETE TESTER 07/29/2023 4:54 AM CONCRETE TESTER us Karen Zambrano MD LAB BLOOD ORDERABLES Final Re sult [facility] ([place]) 1 [facility] Department [place] [address] * Phosphorus (07/29/2023 4:51 AM CONCRETE TESTER) Phosphorus, pl 2.5 2.3 - 4.5 mg/dL [facility] ([place]) Blood 07/29/2023 4:51 AM CONCRETE TESTER 07/29/2023 4:54 AM CONCRETE TESTER us Gianluca Soriano MD PhD LAB BLOOD ORDERABLES Final Result Performing Organization Address City/[facility]/ZIP Co de Phone Number [facility] ([place]) 1 [facility] Department [place] [address] * eGFR (07/28/2023 3:48 AM CONCRETE TESTER) [facility] Signature eGFR 88 mL/min/1. 73 m2 [facility] ([place]) Comment: [...] interpretive data was last reviewed 2021. Blood 07/28/2023 3:48 AM CONCRETE TESTER 07/28/2023 3:53 AM CONCRETE TESTER us Karen Zambrano MD LAB BLOOD ORDERABLES Final Re sult [facility] ([place]) 1 [facility] Department [place] [address] * (ABNORMAL) Basic metabolic panel (07/28/2023 3:48 AM CONCRETE TESTER) Sodium 140 135 - 145 mmol/L [facility] ([place]) Potassium, pl 3.5 3.3 - 4.9 mmol/L [facility] ([place]) Chloride 98 97 - 110 mmol/L [facility] ([place]) CO2 37(H) 22 - 32 mmol/L [facility] ([place]) Anion gap 5 2 - 15 mmol/L [facility] ([place]) BUN 16 6 - 25 mg/dL [facility] ([place]) Creatinine 0.71 0.60 - 1.10 mg/dL [facility] ([place]) Glucose 96 70 - 199 mg/dL [facility] ([place]) Comment: Interpretive Data Fasting glucose >/= [...] classification and Diagnosis of Diabetes Diabetes Care 202; 46: S19-S40. Current interpretive data was last revised 2022. Calcium 8.7 8.5 - 10.3 mg/dL [facility] ([place]) Blood 07/28/2023 3:48 AM CONCRETE TESTER 07/28/2023 3:53 AM CONCRETE TESTER us Karen Zambrano MD LAB BLOOD ORDERABLES Final Re sult [facility] ([place]) 1 [facility] Department [place] [address] * (ABNORMAL) CBC without differential (07/28/2023 3:48 AM CONCRETE TESTER) Pathologist [facility] WBC 11.5(H) 3.8 - 9.9 K/cumm [facility] ([place]) Hgb 11.9 11.9 - 15.5 g/dL [facility] ([place]) Hct 36.7 35.6 - 45.5 % [facility] ([place]) Plt 216 150 - 400 K/cumm [facility] ([place]) MPV 8.7(L) 9.1 - 12.3 fL [facility] ([place]) RBC 3.76(L) 3.90 - 5.20 M/cumm [facility] ([place]) MCV 97.6(H) 81.3 - 96.4 fL [facility] ([place]) MCH 31.6 27.1 - 33.3 pg [facility] ([place]) MCHC 32.4 32.3 - 35.7 g/dL [facility] ([place]) RDW CV 15.3(H) 11.1 - 14.9 % [facility] ([place]) RDW SD 50.9(H) 35.7 - 48.1 fL [facility] ([place]) NRBC abs 0.03(H) 0.00 - 0.01 K/cumm [facility] ([place]) Blood 07/28/2023 3:48 AM CONCRETE TESTER 07/28/2023 3:53 AM CONCRETE TESTER us Karen Zambrano MD LAB BLOOD ORDERABLES Final Re sult [facility] ([place]) 1 [facility] [id number] [place] [address] * Phosphorus (07/28/2023 3:48 AM CONCRETE TESTER) Pathologist [facility] Phosphorus, pl 2.9 2.3 - 4.5 mg/dL [facility] ([place]) Blood 07/28/2023 3:48 AM CONCRETE TESTER 07/28/2023 3:53 AM CONCRETE TESTER us Gianluca Soriano MD PhD LAB BLOOD ORDERABLES Final Result [facility] ([place]) 1 [facility] [id number] [facility] [employer] [place] [address] * eGFR (07/27/2023 3:53 AM CONCRETE TESTER) Pathologist [facility] eGFR 87 mL/min/1. 73 m2 [facility] ([place]) Comment: Interpretive Data Reference Interval Normal [...] interpretive data was last reviewed 2021. Blood 07/27/2023 3:53 AM CONCRETE TESTER 07/27/2023 4:03 AM CONCRETE TESTER us Karen Zambrano MD LAB BLOOD ORDERABLES Final Re sult [facility] ([place]) 1 [facility] Department [place] [address] * (ABNORMAL) Basic metabolic panel (07/27/2023 3:53 AM CONCRETE TESTER) Sodium 136 135 - 145 mmol/L [facility] ([place]) Potassium, pl 3.5 3.3 - 4.9 mmol/L [facility] ([place]) Chloride 96(L) 97 - 110 mmol/L [facility] ([place]) CO2 37(H) 22 - 32 mmol/L [facility] ([place]) Anion gap 4 2 - 15 mmol/L [facility] ([place]) BUN 18 6 - 25 mg/dL [facility] ([place]) Creatinine 0.72 0.60 - 1.10 mg/dL [facility] ([place]) Glucose 91 70 - 199 mg/dL [facility] ([place]) [...] interpretive data was last revised 2022. Calcium 9.0 8.5 - 10.3 mg/dL [facility] ([place]) Blood 07/27/2023 3:53 AM CONCRETE TESTER 07/27/2023 4:03 AM CONCRETE TESTER us Karen Zambrano MD LAB BLOOD ORDERABLES Final Re sult [facility] ([place] 1 [facility] Department [place] [address] * (ABNORMAL) CBC without differential (07/27/2023 3:53 AM CONCRETE TESTER) WBC 10.9(H) 3.8 - 9.9 K/cumm [facility] ([place]) Hgb 12.1 11.9 - 15.5 g/dL [facility] ([place]) Hct 37.0 35.6 - 45.5 % [facility] ([place]) Plt 231 150 - 400 K/cumm [facility] ([place]) MPV 8.7(L) 9.1 - 12.3 fL [facility] ([place]) RBC 3.80(L) 3.90 - 5.20 M/cumm [facility] ([place]) MCV 97.4(H) 81.3 - 96.4 fL [facility] ([place]) MCH 31.8 27.1 - 33.3 pg [facility] ([place]) MCHC 32.7 32.3 - 35.7 g/dL [facility] ([place]) RDW CV 14.9 11.1 - 14.9 % [facility] ([place]) RDW SD 50.6(H) 35.7 - 48.1 fL [facility] ([place]) NRBC abs 0.05(H) 0.00 - 0.01 K/cumm [facility] ([place]) Blood 07/27/2023 3:53 AM CONCRETE TESTER 07/27/2023 4:03 AM CONCRETE TESTER us Karen Zambrano MD LAB BLOOD ORDERABLES Final Re sult [facility] ([place]) 1 [facility] [employer] [place] [address] * Phosphorus (07/27/2023 3:53 AM CONCRETE TESTER) Phosphorus, pl 2.3 2.3 - 4.5 mg/dL [facility] ([place]) Blood 07/27/2023 3:53 AM CONCRETE TESTER 07/27/2023 4:03 AM CONCRETE TESTER us Gianluca Soriano MD PhD LAB BLOOD ORDERABLES Final Result Performing Organization Address [facility]/ZIP Co de Phone Number [facility] ([place]) 1 [facility] [place] [address] * eGFR (07/26/2023 5:42 AM CONCRETE TESTER) eGFR 81 mL/min/1. 73 m2 [facility] ([place]) Comment: Interpretive Data Reference Interval Normal [...] interpretive data was last reviewed 2021. Blood 07/26/2023 5:42 AM CONCRETE TESTER 07/26/2023 5:44 AM CONCRETE TESTER Karen Zambrano MD LAB BLOOD ORDERABLES Final Re sult [facility] ([place]) 1 [facility] Department [place] [address] * (ABNORMAL) Basic metabolic panel (07/26/2023 5:42 AM CONCRETE TESTER) Sodium 139 135 - 145 mmol/L [facility] ([place]) Potassium, pl 3.6 3.3 - 4.9 mmol/L [facility] ([place]) Chloride 96(L) 97 - 110 mmol/L [facility] ([place]) CO2 34(H) 22 - 32 mmol/L [facility] ([place]) Anion gap 9 2 - 15 mmol/L [facility] ([place]) BUN 18 6 - 25 mg/dL [facility] ([place]) Creatinine 0.76 0.60 - 1.10 mg/dL [facility] ([place]) Glucose 95 70 - 199 mg/dL [facility] ([place]) Comment: Interpretive Data Fasting glucose [...] classification and Diagnosis of Diabetes Diabetes Care 202; 46: S19-S40. Current interpretive data was last revised 2022. Calcium 8.8 8.5 - 10.3 mg/dL [facility] ([place]) Blood 07/26/2023 5:42 AM CONCRETE TESTER 07/26/2023 5:44 AM CONCRETE TESTER us Karen Zambrano MD LAB BLOOD ORDERABLES Final Re sult [facility] ([place]) 1 [facility] Department [place] [address] * (ABNORMAL) CBC without differential (07/26/2023 5:42 AM CONCRETE TESTER) WBC 11.8(H) 3.8 - 9.9 K/cumm [facility] ([place]) Hgb 12.5 11.9 - 15.5 g/dL [facility] ([place]) Hct 37.1 35.6 - 45.5 % [facility] ([place]) Plt 237 150 - 400 K/cumm [facility] ([place]) MPV 8.6(L) 9.1 - 12.3 fL [facility] ([place]) RBC 3.84(L) 3.90 - 5.20 M/cumm [facility] ([place]) MCV 96.6(H) 81.3 - 96.4 fL [facility] ([place]) MCH 32.6 27.1 - 33.3 pg [facility] ([place]) MCHC 33.7 32.3 - 35.7 g/dL [facility] ([place]) RDW CV 14.7 11.1 - 14.9 % [facility] ([place]) RDW SD 49.9(H) 35.7 - 48.1 fL [facility] ([place]) NRBC abs 0.07(H) 0.00 - 0.01 K/cumm [facility] ([place]) Blood 07/26/2023 5:42 AM CONCRETE TESTER 07/26/2023 5:44 AM CONCRETE TESTER us Karen Zambrano MD LAB BLOOD ORDERABLES Final Re sult [facility] ([place]) 1 [facility] [place] [address] * Phosphorus (07/26/2023 5:42 AM CONCRETE TESTER) Phosphorus, pl 2.9 2.3 - 4.5 mg/dL [facility] ([place]) Blood 07/26/2023 5:42 AM CONCRETE TESTER 07/26/2023 5:44 AM CONCRETE TESTER us Gianluca Soriano MD PhD LAB BLOOD ORDERABLES Final Result Performing Organization Address [facility] de Phone Number [facility] ([place]) 1 [facility] [place] [address] * eGFR (07/25/2023 8:53 AM CONCRETE TESTER) eGFR 81 mL/min/1. 73 m2 [facility] ([place]) Comment: Interpretive Data Reference Interval Normal ?>/= [...] interpretive data was last reviewed 2021. Blood 07/25/2023 8:53 AM CONCRETE TESTER 07/25/2023 8:56 AM CONCRETE TESTER us Karen Zambrano MD LAB BLOOD ORDERABLES Final Re sult [facility] ([place]) 1 [facility] Department [place] [address] * (ABNORMAL) Differential, auto (07/25/2023 8:53 AM CONCRETE TESTER) Neutrophil abs 8.5(H) 1.5 - 6.5 K/cumm [facility] ([place]) Imm gran abs 0.4(H) 0.0 - 0.1 K/cumm [facility] ([place]) Lymphocyte abs 2.0 0.8 - 3.3 K/cumm [facility] ([place]) Monocyte abs 1.3(H) 0.2 - 0.8 K/cumm [facility] ([place]) Eosinophil abs 0.0 0.0 - 0.5 K/cumm [facility] ([place]) Basophil abs 0.1 0.0 - 0.1 K/cumm [facility] ([place]) Neutrophil pct 69.0 % [facility] ([place]) Comment: Interpretive Data Percent cell count reference ranges are not reported, since discordance with absolute values may lead to misinterpretation of CBC data. Current Interpretive Data was last revised on 2017. Imm gran pct 3.2 % [facility] ([place]) Comment: Interpretive Data Percent cell count reference ranges are not reported, since discordance with absolute values may lead to misinterpretation of CBC data. Current Interpretive Data was last revised on 2017. Lymphocyte pct 16.0 % [facility] ([place]) Comment: Interpretive Data Percent cell count reference ranges are not reported, since discordance with absolute values may lead to misinterpretation of CBC data. Current Interpretive Data was last revised on 2017. Monocyte pct 10.8 % [facility] ([place]) Comment: Interpretive Data Percent cell count reference ranges are not reported, since discordance with absolute values may lead to misinterpretation of CBC data. Current Interpretive Data was last revised on 2017. Eosinophil pct 0.2 % [facility] ([place]) Comment: Interpretive Data Percent cell count reference ranges are not reported, since discordance with absolute values may lead to misinterpretation of CBC data. Current Interpretive Data was last revised on 2017. Basophil pct 0.8 % [facility] ([place]) Comment: Interpretive Data Percent cell count reference ranges are not reported, since discordance with absolute values may lead to misinterpretation of CBC data. Current Interpretive Data was last revised on 2017. Blood 07/25/2023 8:53 AM CONCRETE TESTER 07/25/2023 8:56 AM CONCRETE TESTER Karen Zambrano MD LAB BLOOD ORDERABLES Final Re sult [facility] ([place]) 1 [facility] [place] [address] * Phosphorus (07/25/2023 8:53 AM CONCRETE TESTER) Phosphorus, pl 2.5 2.3 - 4.5 mg/dL [facility] ([place]) Blood 07/25/2023 8:53 AM CONCRETE TESTER 07/25/2023 8:56 AM CONCRETE TESTER Karen Zambrano MD LAB BLOOD ORDERABLES Final Re sult [facility] ([place]) 1 [facility] [place] [place] [address] * (ABNORMAL) Basic metabolic panel (07/25/2023 8:53 AM CONCRETE TESTER) Sodium 137 135 - 145 mmol/L [facility] ([place]) Potassium, pl 4.0 3.3 - 4.9 mmol/L [facility] ([place]) Chloride 96(L) 97 - 110 mmol/L [facility] ([place]) CO2 35(H) 22 - 32 mmol/L [facility] ([place]) Anion gap 6 2 - 15 mmol/L [facility] ([place]) BUN 21 6 - 25 mg/dL [facility] ([place]) Creatinine 0.76 0.60 - 1.10 mg/dL [facility] ([place]) Glucose 101 70 - 199 mg/dL [facility] ([place]) [...] classification and Diagnosis of Diabetes Diabetes Care 202; 46: S19-S40. Current interpretive data was last revised 2022. Calcium 9.1 8.5 - 10.3 mg/dL [facility] ([place]) Blood 07/25/2023 8:53 AM CONCRETE TESTER 07/25/2023 8:56 AM CONCRETE TESTER us Karen Zambrano MD LAB BLOOD ORDERABLES Final Re sult [facility] ([place]) 1 [facility] Department [place] [address] * (ABNORMAL) CBC with auto differential (07/25/2023 8:53 AM CONCRETE TESTER) WBC 12.4(H) 3.8 - 9.9 K/cumm [facility] ([place]) Hgb 12.8 11.9 - 15.5 g/dL [facility] ([place]) Hct 39.2 35.6 - 45.5 % [facility] ([place]) Plt 288 150 - 400 K/cumm [facility] ([place]) MPV 8.6(L) 9.1 - 12.3 fL [facility] ([place]) RBC 4.06 3.90 - 5.20 M/cumm [facility] ([place]) MCV 96.6(H) 81.3 - 96.4 fL [facility] ([place]) MCH 31.5 27.1 - 33.3 pg [facility] ([place]) MCHC 32.7 32.3 - 35.7 g/dL [facility] ([place]) RDW CV 14.5 11.1 - 14.9 % [facility] ([place]) RDW SD 49.4(H) 35.7 - 48.1 fL [facility] ([place]) NRBC abs 0.13(H) 0.00 - 0.01 K/cumm [facility] ([place]) Blood 07/25/2023 8:53 AM CONCRETE TESTER 07/25/2023 8:56 AM CONCRETE TESTER us Karen Zambrano MD LAB BLOOD ORDERABLES Final Re sult [facility] ([place]) 1 [facility] Department [place] [address] * (ABNORMAL) Pro B-type natriuretic peptide (07/24/2023 4:32 AM CONCRETE TESTER) NT-proBNP 18,259(H) <=450 pg/mL [facility] ([place]) Comment: Interpretive Comments: A. Dyspnea in Acute Care Setting All Ages: ?< 300 pg/ml, acute heart failure unlikely. < 50 yrs: ?300 - 450 pg/ml, further investigation warranted. ? > 450 pg/ml, acute heart failure likely. 50 - 74 yrs: ? 300 - 900 pg/ml, further investigation warranted. ? > 900 pg/ml, acute heart failure likely . > or = 75 yrs: ? 450 - 1800 pg/ml, further investigation warranted. ? > 1800 pg/ml, acute heart failure likely. B. Non-acute Setting < 75 yrs ? < 125 pg/ml, rules out heart failure. ? > or = 125 pg/ml, further investigation warranted. > or = 75 yrs ?< 450 pg/ml, rules out heart failure. ? > or = 450 pg/ml, further investigation warranted. - Knowledge of each individual patient's NT-proBNP range may be more useful than using similar cut-points for every patient. Please note that marked elevations in NT-proBNP levels may be observed in state other than Left Ventricular Congestive Failure, including: acute coronary syndromes, right heart strain/failure (including pulmonary embolism and cor pulmonale), critical illness, renal failure, as well as advanced age. - References: 1. Juli JAFFE et.al. Eur Heart J. 2006:27:330-337. 2. Reji WILLIS, Jaqueline BIANCHI. J. AM Ivana Cardiol: Cardiovasc Imag. 2009;2: 216- 225. Interpretive Data Last Revised Date: 2018. Blood 07/24/2023 4:32 AM CONCRETE TESTER 07/24/2023 9:36 AM CONCRETE TESTER us Karen Zambrano MD LAB BLOOD ORDERABLES Final Re sult [facility] ([place]) 1 [facility]ly [facility] Department [place] [address] * eGFR (07/24/2023 4:32 AM CONCRETE TESTER) eGFR 80 mL/min/1. 73 m2 [facility]) Comment: Interpretive Data Reference Interval Normal ?>/= [...] interpretive data was last reviewed 2021. Blood 07/24/2023 4:32 AM CONCRETE TESTER 07/24/2023 4:43 AM CONCRETE TESTER us Karen Zambrano MD LAB BLOOD ORDERABLES Final Re sult [facility] ([place]) 1 [facility]ly [facility] Department [place] [address] * (ABNORMAL) Basic metabolic panel (07/24/2023 4:32 AM CONCRETE TESTER) Sodium 136 135 - 145 mmol/L [facility] ([place]) Potassium, pl 3.8 3.3 - 4.9 mmol/L [facility] ([place]) Chloride 96(L) 97 - 110 mmol/L [facility] ([place]) CO2 31 22 - 32 mmol/L [facility] ([place]) Anion gap 9 2 - 15 mmol/L [facility] ([place]) BUN 22 6 - 25 mg/dL [facility] ([place]) Creatinine 0.77 0.60 - 1.10 mg/dL [facility] ([place]) Glucose 98 70 - 199 mg/dL [facility] ([place]) Comment: Interpretive Data Fasting glucose [...] interpretive data was last revised 2022. Calcium 9.1 8.5 - 10.3 mg/dL [facility] ([place]) Blood 07/24/2023 4:32 AM CONCRETE TESTER 07/24/2023 4:43 AM CONCRETE TESTER us Karen Zambrano MD LAB BLOOD ORDERABLES Final Re sult [facility] ([place]) 1 [facility] Department [place] [address] * (ABNORMAL) CBC without differential (07/24/2023 4:32 AM CONCRETE TESTER) WBC 13.0(H) 3.8 - 9.9 K/cumm [facility] ([place]) Hgb 12.9 11.9 - 15.5 g/dL [facility] ([place]) Hct 38.8 35.6 - 45.5 % [facility] ([place]) Plt 338 150 - 400 K/cumm [facility] ([place]) MPV 8.7(L) 9.1 - 12.3 fL [facility] ([place]) RBC 4.07 3.90 - 5.20 M/cumm [facility] ([place]) MCV 95.3 81.3 - 96.4 fL [facility] ([place]) MCH 31.7 27.1 - 33.3 pg [facility] ([place]) MCHC 33.2 32.3 - 35.7 g/dL [facility] ([place]) RDW CV 14.2 11.1 - 14.9 % [facility] ([place]) RDW SD 48.6(H) 35.7 - 48.1 fL [facility] ([place]) NRBC abs 0.26(H) 0.00 - 0.01 K/cumm [facility] ([place]) Blood 07/24/2023 4:32 AM CONCRETE TESTER 07/24/2023 4:43 AM CONCRETE TESTER us Karen Zambrano MD LAB BLOOD ORDERABLES Final Re sult Performing Organization Address City/[facility]/ZIP Co de Phone Number [facility] ([place]) 1 [facility] [place] [address] * Phosphorus (07/24/2023 4:32 AM CONCRETE TESTER) Phosphorus, pl 2.3 2.3 - 4.5 mg/dL [facility] ([place]) Blood 07/24/2023 4:32 AM CONCRETE TESTER 07/24/2023 4:43 AM CONCRETE TESTER us Gianluca Soriano MD PhD LAB BLOOD ORDERABLES Final Result Performing Organization Address [facility]/ZIP Co de Phone Number [facility] ([place]) 1 [facility] [place] [address] * Magnesium (07/24/2023 4:32 AM CONCRETE TESTER) Magnesium 2.0 1.4 - 2.5 mg/dL [facility] ([place]) Blood 07/24/2023 4:32 AM CONCRETE TESTER 07/24/2023 4:43 AM CONCRETE TESTER us Karen Zambrano MD LAB BLOOD ORDERABLES Final Re sult Performing Organization Address City/[facility]/ZIP Co de Phone Number [facility] ([place]) 1 [facility] [place] [address] * eGFR (07/23/2023 6:34 AM CONCRETE TESTER) eGFR 90 mL/min/1. 73 m2 [facility] Comment: Interpretive Data Reference Interval Normal [...] interpretive data was last reviewed 2021. Blood 07/23/2023 6:34 AM CONCRETE TESTER 07/23/2023 6:42 AM CONCRETE TESTER us Karen Zambrano MD LAB BLOOD ORDERABLES Final Re sult [facility] ([place]) 1 [facility] Department [place] [address] * (ABNORMAL) Basic metabolic panel (07/23/2023 6:34 AM CONCRETE TESTER) Sodium 135 135 - 145 mmol/L [facility] ([place]) Potassium, pl 4.2 3.3 - 4.9 mmol/L [facility] ([place]) Comment:Moderately Hemolyzed Specimen. Results may be affected. Chloride 96(L) 97 - 110 mmol/L [facility] ([place]) CO2 31 22 - 32 mmol/L [facility] ([place]) Anion gap 8 2 - 15 mmol/L [facility] ([place]) BUN 24 6 - 25 mg/dL [facility] ([place]) Creatinine 0.70 0.60 - 1.10 mg/dL [facility] ([place]) Glucose 98 70 - 199 mg/dL [facility] ([place]) [...] interpretive data was last revised 2022. Calcium 8.7 8.5 - 10.3 mg/dL [facility] ([place]) Blood 07/23/2023 6:34 AM CONCRETE TESTER 07/23/2023 6:42 AM CONCRETE TESTER us Karen Zambrano MD LAB BLOOD ORDERABLES Final Re sult [facility] ([place]) 1 [facility] Department of Laboratories [place], [place] [id number] * (ABNORMAL) CBC without differential (07/23/2023 6:34 AM CONCRETE TESTER) WBC 13.0(H) 3.8 - 9.9 K/cumm [facility] ([place]) Hgb 13.1 11.9 - 15.5 g/dL [facility] ([place]) Hct 39.7 35.6 - 45.5 % [facility] ([place]) Plt 378 150 - 400 K/cumm [facility] ([place]) MPV 9.3 9.1 - 12.3 fL [facility] ([place]) RBC 4.17 3.90 - 5.20 M/cumm [facility] ([place]) MCV 95.2 81.3 - 96.4 fL [facility] ([place]) MCH 31.4 27.1 - 33.3 pg [facility] ([place]) MCHC 33.0 32.3 - 35.7 g/dL [facility] ([place]) RDW CV 13.9 11.1 - 14.9 % [facility] ([place]) RDW SD 48.6(H) 35.7 - 48.1 fL [facility] ([place]) NRBC abs 0.20(H) 0.00 - 0.01 K/cumm [facility] ([place]) Blood 07/23/2023 6:34 AM CONCRETE TESTER 07/23/2023 6:42 AM CONCRETE TESTER Karen Zambrano MD LAB BLOOD ORDERABLES Final Re sult [facility] ([place]) 1 [facility] [place] [address] * Phosphorus (07/23/2023 6:34 AM CONCRETE TESTER) Phosphorus, pl 2.6 2.3 - 4.5 mg/dL [facility] ([place]) Blood 07/23/2023 6:34 AM CONCRETE TESTER 07/23/2023 6:42 AM CONCRETE TESTER us Gianluca Soriano MD PhD LAB BLOOD ORDERABLES Final Result Performing Organization Address City/[facility]/ZIP Co de Phone Number [facility] ([place]) 1 [facility] [place] [address] * POCT glucose (07/23/2023 2:38 AM CONCRETE TESTER) Glucose, POC 90 71 - 98 mg/dL [facility] ([place]) Blood 07/23/2023 2:38 AM CONCRETE TESTER 07/23/2023 2:38 AM CONCRETE TESTER Karen Zambrano MD LAB POCT ORDERABLES - DEVICE Final Result Performing Organization Address City/[facility]/ZIP Co de Phone Number [facility] ([place]) 1 [facility] [place] [address] * (ABNORMAL) Blood gas, arterial (07/22/2023 1:08 PM CONCRETE TESTER) pH, Art 7.40 7.35 - 7.45 [facility] ([place]) PCO2, Arterial 48(H) 35 - 45 mmHg [facility] ([place]) PO2, Arterial 69(L) 83 - 108 mmHg [facility] ([place]) HCO3 Art (Calculated) 29 20 - 30 mmol/L [facility] ([place]) BE, art 4 mmol/L [facility] ([place]) Comment: Interpretive Data No Reference Range Established Current Interpretive Data was last revised on 2017 O2 Sat Art (Measured) 94 90 - 95 % [facility] ([place]) Blood 07/22/2023 1:08 PM CONCRETE TESTER 07/22/2023 1:11 PM CONCRETE TESTER us Karen Zambrano MD LAB BLOOD ORDERABLES Final Re sult [facility] ([place]) 1 [facility] Department [place] [address] * eGFR (07/22/2023 5:14 AM CONCRETE TESTER) eGFR 82 mL/min/1. 73 m2 [facility] ([place]) Comment: Interpretive Data Reference Interval Normal [...] Inclusion of Race in Diagnosing Kidney Disease, KAYLISN 2020). The CKD-EPI equation should not be used for patients with unstable renal function and has not been validated in children and those over 70. Current interpretive data was last reviewed 2021. Blood 07/22/2023 5:14 AM CONCRETE TESTER 07/22/2023 5:21 AM CONCRETE TESTER us Karen Zambrano MD LAB BLOOD ORDERABLES Final Re sult [facility] ([place]) 1 [facility] Department [place] [address] * (ABNORMAL) Basic metabolic panel (07/22/2023 5:14 AM CONCRETE TESTER) Sodium 134(L) 135 - 145 mmol/L [facility] ([place]) Potassium, pl 3.7 3.3 - 4.9 mmol/L [facility] ([place]) Chloride 95(L) 97 - 110 mmol/L [facility] ([place]) CO2 28 22 - 32 mmol/L [facility] ([place]) Anion gap 11 2 - 15 mmol/L [facility] ([place]) BUN 25 6 - 25 mg/dL [facility] ([place]) Creatinine 0.75 0.60 - 1.10 mg/dL [facility] ([place]) Glucose 100 70 - 199 mg/dL [facility] ([place]) [...] interpretive data was last revised 2022. Calcium 8.8 8.5 - 10.3 mg/dL [facility] ([place]) Blood 07/22/2023 5:14 AM CONCRETE TESTER 07/22/2023 5:21 AM CONCRETE TESTER us Karen Zambrano MD LAB BLOOD ORDERABLES Final Re sult [facility] ([place]) 1 [facility] [place] [address] * (ABNORMAL) CBC without differential (07/22/2023 5:14 AM CONCRETE TESTER) Pathologist [facility] WBC 13.0(H) 3.8 - 9.9 K/cumm [facility] ([place]) Hgb 13.1 11.9 - 15.5 g/dL [facility] ([place]) Hct 38.3 35.6 - 45.5 % [facility] ([place]) Plt 379 150 - 400 K/cumm [facility] ([place]) MPV 8.9(L) 9.1 - 12.3 fL [facility] ([place]) RBC 4.07 3.90 - 5.20 M/cumm [facility] ([place]) MCV 94.1 81.3 - 96.4 fL [facility] ([place]) MCH 32.2 27.1 - 33.3 pg [facility] ([place]) MCHC 34.2 32.3 - 35.7 g/dL [facility] ([place]) RDW CV 13.7 11.1 - 14.9 % [facility] ([place]) RDW SD 46.8 35.7 - 48.1 fL [facility] ([place]) NRBC abs 0.13(H) 0.00 - 0.01 K/cumm [facility] ([place]) Blood 07/22/2023 5:14 AM CONCRETE TESTER 07/22/2023 5:21 AM CONCRETE TESTER us Karen Zambrano MD LAB BLOOD ORDERABLES Final Re sult [facility] ([place]) 1 [facility] [place] [address] * Phosphorus (07/22/2023 5:14 AM CONCRETE TESTER) Phosphorus, pl 2.6 2.3 - 4.5 mg/dL [facility] ([place]) Blood 07/22/2023 5:14 AM CONCRETE TESTER 07/22/2023 5:21 AM CONCRETE TESTER us Gianluca Soriano MD PhD LAB BLOOD ORDERABLES Final Result [facility] ([place]) 1 [facility] Department [place] [address] * (ABNORMAL) CBC without differential (07/21/2023 6:30 AM CONCRETE TESTER) Pathologist [facility] WBC 12.5(H) 3.8 - 9.9 K/cumm [facility] ([place]) Hgb 12.7 11.9 - 15.5 g/dL [facility] ([place]) Hct 38.6 35.6 - 45.5 % [facility] ([place]) Plt 406(H) 150 - 400 K/cumm [facility] ([place]) MPV 9.4 9.1 - 12.3 fL [facility] ([place]) RBC 4.03 3.90 - 5.20 M/cumm [facility] ([place]) MCV 95.8 81.3 - 96.4 fL [facility] ([place]) MCH 31.5 27.1 - 33.3 pg [facility] ([place]) MCHC 32.9 32.3 - 35.7 g/dL [facility] ([place]) RDW CV 13.9 11.1 - 14.9 % [facility] ([place]) RDW SD 49.3(H) 35.7 - 48.1 fL [facility] ([place]) NRBC abs 0.06(H) 0.00 - 0.01 K/cumm [facility] ([place]) Blood 07/21/2023 6:30 AM CONCRETE TESTER 07/21/2023 9:28 AM CONCRETE TESTER us Karen Zambrano MD LAB BLOOD ORDERABLES Final Re sult [facility] ([place]) [address] Department [place] [address] * eGFR (07/21/2023 6:30 AM CONCRETE TESTER) eGFR 82 mL/min/1. 73 m2 [facility] ([place]) Comment: Interpretive Data Reference Interval Normal ?>/= [...] interpretive data was last reviewed 2021. Blood 07/21/2023 6:30 AM CONCRETE TESTER 07/21/2023 6:38 AM CONCRETE TESTER us Maciel Jean MD LAB BLOOD ORDERABLES Final Resu lt [facility] ([place]) 1 [facility] Department [place] [address] * (ABNORMAL) Comprehensive metabolic panel (07/21/2023 6:30 AM CONCRETE TESTER) Pathologist [facility] Sodium 131(L) 135 - 145 mmol/L [facility] ([place]) Potassium, pl 3.9 3.3 - 4.9 mmol/L [facility] ([place]) Chloride 94(L) 97 - 110 mmol/L [facility] ([place]) CO2 27 22 - 32 mmol/L [facility] ([place]) Anion gap 10 2 - 15 mmol/L [facility] ([place]) BUN 25 6 - 25 mg/dL [facility] ([place]) Creatinine 0.75 0.60 - 1.10 mg/dL [facility] ([place]) Glucose 105 70 - 199 mg/dL [facility] ([place]) [...] classification and Diagnosis of Diabetes Diabetes Care 202; 46: S19-S40. Current interpretive data was last revised 2022. Calcium 9.4 8.5 - 10.3 mg/dL [facility] ([place]) Bilirubin, total 0.5 0.1 - 1.2 mg/dL [facility] ([place]) Protein, pl 6.8 6.5 - 8.5 g/dL [facility] ([place]) Albumin 2.9(L) 3.5 - 5.0 g/dL [facility] ([place]) Alk phos 113 40 - 130 Units/L [facility] ([place]) ALT 16 7 - 45 Units/L [facility] ([place]) AST 16 10 - 45 Units/L [facility] ([place]) Blood 07/21/2023 6:30 AM CONCRETE TESTER 07/21/2023 6:38 AM CONCRETE TESTER us Maciel Jean MD LAB BLOOD ORDERABLES Final Resu lt [facility] ([place]) 1 [facility] Department [place] [address] * Phosphorus (07/21/2023 6:30 AM CONCRETE TESTER) Phosphorus, pl 2.3 2.3 - 4.5 mg/dL [facility] ([place]) Blood 07/21/2023 6:30 AM CONCRETE TESTER 07/21/2023 6:38 AM CONCRETE TESTER us Gianluca Soriano MD PhD LAB BLOOD ORDERABLES Final Result [facility] ([place]) 1 [facility] Department [place] [address] * eGFR (07/20/2023 4:05 AM CONCRETE TESTER) eGFR 87 mL/min/1. 73 m2 [facility] ([place]) Comment: Interpretive Data Reference Interval Normal ?>/= [...] interpretive data was last reviewed 2021. Blood 07/20/2023 4:05 AM CONCRETE TESTER 07/20/2023 4:32 AM CONCRETE TESTER us Maciel Jean MD LAB BLOOD ORDERABLES Final Resu lt [facility] ([place]) 1 [facility] Department [place] [address] * (ABNORMAL) Comprehensive metabolic panel (07/20/2023 4:05 AM CONCRETE TESTER) Sodium 134(L) 135 - 145 mmol/L [facility] ([place]) Potassium, pl 3.6 3.3 - 4.9 mmol/L [facility] ([place]) Chloride 96(L) 97 - 110 mmol/L [facility] ([place]) CO2 29 22 - 32 mmol/L [facility] ([place]) Anion gap 9 2 - 15 mmol/L [facility] ([place]) BUN 22 6 - 25 mg/dL [facility] ([place]) Creatinine 0.72 0.60 - 1.10 mg/dL [facility] ([place]) Glucose 106 70 - 199 mg/dL [facility] ([place]) [...] interpretive data was last revised 2022. Calcium 9.2 8.5 - 10.3 mg/dL [facility] ([place]) Bilirubin, total 0.4 0.1 - 1.2 mg/dL [facility] ([place]) Protein, pl 7.1 6.5 - 8.5 g/dL [facility] ([place]) Albumin 3.1(L) 3.5 - 5.0 g/dL [facility] ([place]) Alk phos 122 40 - 130 Units/L [facility] ([place]) ALT 18 7 - 45 Units/L [facility] ([place]) AST 19 10 - 45 Units/L [facility] ([place]) Blood 07/20/2023 4:05 AM CONCRETE TESTER 07/20/2023 4:32 AM CONCRETE TESTER us Maciel Jean MD LAB BLOOD ORDERABLES Final Resu lt Performing Organization Address City/[facility]/ZIP Co de Phone Number [facility] ([place]) 1 [facility] [place] [address] * Phosphorus (07/20/2023 4:05 AM CONCRETE TESTER) Phosphorus, pl 2.7 2.3 - 4.5 mg/dL [facility] ([place]) Blood 07/20/2023 4:05 AM CONCRETE TESTER 07/20/2023 4:32 AM CONCRETE TESTER us Gianluca Soriano MD PhD LAB BLOOD ORDERABLES Final Result Performing Organization Address [facility] Co de Phone Number [facility] ([place]) 1 [facility] [place] [address] * ECG 12 lead (07/19/2023 3:34 PM CONCRETE TESTER) 07/19/2023 3:34 PM CONCRETE TESTER Narrative [facility] - 07/20/2023 7:55 AM CONCRETE TESTER Vent Rate: 70 bpm RR Interval: 846 msec WV Interval: 0 msec QRS Duration: 154 msec QT Interval: 465 msec QTC Interval: 487 msec P-R-T [place]: [id number] - 69 - 195 degrees IMPRESSION: ATRIAL FLUTTER LEFT BUNDLE BRANCH BLOCK ??[120+ ms QRS DURATION, 80+ ms Q/S IN V1/V2, 85+ ms R IN I/aVL/V5/V6] ABNORMAL ECG Electronically Signed By: John Dominguez MD us Roly Husain MD ECG ORDERABLES Final Result Performing Organization Address [facility] Co de Phone Number [facility] [employer] [facility] * XR Chest 1 View (07/19/2023 2:06 PM CONCRETE TESTER) Anatomical Region Laterality Modality Body, Chest N/A Computed Radiogr aphy 07/19/2023 2:13 PM CONCRETE TESTER Narrative 07/19/2023 2:14 PM CONCRETE TESTER EXAM DESCRIPTION: XR CHEST 1 VIEW REASON FOR STUDY: PICC placement. TECHNIQUE: Frontal ??radiographic view(s) of the chest. COMPARISON: Chest radiograph 07/16/2023 and 04/14/2019. FINDINGS: LUNGS: ??No focal consolidation, noting redemonstration of diffuse coarsened pulmonary markings. ??No large pleural effusion. ??No pneumothorax. HEART/MEDIASTINUM: ??Stable cardiomediastinal silhouette, noting mild cardiomegaly. LINES/TUBES: ??Interval placement of right upper extremity PICC with tip termination projecting over the superior vena cava. BONES: ??No acute osseous abnormality. IMPRESSION: Interval placement of right upper extremity PICC with tip termination projecting over the superior vena cava. No radiographic evidence of acute cardiopulmonary process. THIS IS AN ELECTRONICALLY VERIFIED FINAL REPORT 07/19/2023 2:14 PM - Electronically signed by ??Blaze Schwartz M.D. DYANA: DYANA D: ??07/19/2023 2:14 PM T: ??07/19/2023 2:14 PM Report ID: [id number] Reading Location: ??[id number] Procedure Note Blaze Schwartz MD - 07/19/2023 EXAM DESCRIPTION: XR CHEST 1 VIEW REASON FOR STUDY: PICC placement. TECHNIQUE: Frontal radiographic view(s) of the chest. COMPARISON: Chest radiograph 07/16/2023 and 04/14/2019. FINDINGS: LUNGS: No focal consolidation, noting redemonstration of diffusecoarsened pulmonary markings. No large pleural effusion. No pneumothorax. HEART/MEDIASTINUM: Stable cardiomediastinal silhouette, noting mild cardiomegaly. LINES/TUBES: Interval placement of right upper extremity PICC with tip termination projecting over the superior vena cava. BONES: No acute osseous abnormality. IMPRESSION: Interval placement of right upper extremity PICC with tip termination projecting over the superior vena cava. No radiographic evidence of acute cardiopulmonary process. THIS IS AN ELECTRONICALLY VERIFIED FINAL REPORT 07/19/2023 2:14 PM - Electronically signed by Blaze Schwartz M.D. DYANA: DYANA Report ID: [id number] Reading Location: [id number] us Maciel Jean MD IMG XR PROCEDURES Final Result * eGFR (07/19/2023 4:17 AM CONCRETE TESTER) eGFR 80 mL/min/1. 73 m2 [facility] ([place]) Comment: Interpretive Data Reference Interval Normal ?>/= [...] interpretive data was last reviewed 2021. Blood 07/19/2023 4:17 AM CONCRETE TESTER 07/19/2023 4:23 AM CONCRETE TESTER Maciel Jean MD LAB BLOOD ORDERABLES Final Resu lt [facility] ([place]) 1 [facility] Department [place] [address] * (ABNORMAL) Comprehensive metabolic panel (07/19/2023 4:17 AM CONCRETE TESTER) Sodium 133(L) 135 - 145 mmol/L [facility] ([place]) Potassium, pl 3.6 3.3 - 4.9 mmol/L [facility] ([place]) Chloride 95(L) 97 - 110 mmol/L [facility] ([place]) CO2 24 22 - 32 mmol/L [facility] ([place]) Anion gap 15 2 - 15 mmol/L [facility] ([place]) BUN 20 6 - 25 mg/dL [facility] ([place]) Creatinine 0.77 0.60 - 1.10 mg/dL [facility] ([place]) Glucose 101 70 - 199 mg/dL [facility] ([place]) [...] interpretive data was last revised 2022. Calcium 9.0 8.5 - 10.3 mg/dL [facility] ([place]) Bilirubin, total 0.3 0.1 - 1.2 mg/dL [facility] ([place]) Protein, pl 7.1 6.5 - 8.5 g/dL [facility] ([place]) Albumin 3.0(L) 3.5 - 5.0 g/dL [facility] ([place]) Alk phos 117 40 - 130 Units/L [facility] ([place]) ALT 15 7 - 45 Units/L [facility] ([place]) AST 23 10 - 45 Units/L [facility] ([place]) Blood 07/19/2023 4:17 AM CONCRETE TESTER 07/19/2023 4:23 AM CONCRETE TESTER Maciel Jean MD LAB BLOOD ORDERABLES Final Resu lt [facility] ([place]) 1 [facility] [place] [address] * Phosphorus (07/19/2023 4:17 AM CONCRETE TESTER) Phosphorus, pl 2.4 2.3 - 4.5 mg/dL [facility] ([place]) Blood 07/19/2023 4:17 AM CONCRETE TESTER 07/19/2023 4:23 AM CONCRETE TESTER us Gianluca Soriano MD PhD LAB BLOOD ORDERABLES Final Result Performing Organization Address [facility] Co de Phone Number [facility] ([place]) 1 [facility] [place] [address] * Transesophageal Echocardiogram ([facility]) W Possible Cardioversion (07/19/2023 12:00 AM CONCRETE TESTER) Anatomical Region Laterality Modality Ultrasound 07/19/2023 Narrative 07/20/2023 9:08 AM CONCRETE TESTER [employer] Job ID: [id number] [employer] Document ID: [id number] Dictated date/time: [id number] NAME OF PROCEDURE 1. Transesophageal echocardiogram. 2. Cardioversion of atrial fibrillation. PROCEDURE The patient was kept in ICU bed 7. ??Consent form was signed. ??She was not allergic to any medication we are going to be giving her. ??Sedation time was about 25 minutes. ??Patient received in small increments 1 mg IV Versed and 50 mcg IV fentanyl. ??Topical anesthetics were given to the retropharynx twice. ??When well sedated, the probe went down to the distal esophagus very easily. FINDINGS The LV function was quite diminished with apical akinesis. ??Ejection fraction estimated at 25% to 30% at best. ??No thrombus in the left ventricle. ??Mitral valve leaflets opening and closing well with evidence of moderate to severe mitral regurgitation. ??Left atrium is definitely moderately dilated. ??Left atrial appendage is well seen and has no thrombus. ??Left atrial appendage velocity was diminished at 0.4 m/sec as expected from atrial fibrillation. ??Tricuspid valve leaflets opening and closing well with evidence of mild to moderate tricuspid regurgitation. ?? The pulmonic valve is opening and closing well with pulmonic insufficiency. ??Aortic valve is tricuspid in nature and without any regurgitation or vegetation. ??On the way out, no hypermobile elements noted in the aortic arch. CONCLUSION 1. No hypermobile elements in aortic arch. 2. No thrombus left ventricular apex or left atrial appendage. 3. Moderately dilated left atrium. 4. Severely diminished global LV function with apical akinesis. ??LVEF of 25% to 30%. 5. Pulmonic insufficiency. 6. Tricuspid regurgitation, mild to moderate. 7. Mitral regurgitation, moderate to severe. 8. No clot in left atrial appendage with a low left atrial appendage velocity of 0.4 m/sec. ?? After making sure patient continues to be well sedated, a 360 joule synchronized biphasic shock converted her from an irregular atrial fibrillation rhythm to regular rhythm that looks to be now atrial flutter. The patient will be continued on p.o. amiodarone after discontinuation of IV amiodarone. ??We may try to cardiovert her out of atrial flutter in a few weeks. Job ID/Internal Job ID: ??[id number] us Roly Husain MD CV ECHO PROCEDURES Final Resu lt * LEFT HEART CATHETERIZATION WITH CORONARY ANGIOGRAPHY AND WITH AND WITHOUT LEFT VENTRICULOGRAM (07/18/2023 4:02 PM CONCRETE TESTER) Anatomical Region Laterality Modality X-Ray Angiograph y 07/18/2023 Narrative 07/19/2023 1:46 PM CONCRETE TESTER [place] Job ID: [id number] [place] Document ID: [id number] Dictated date/time: [id number] CARDIAC CATHETERIZATION ?? A 78-year-old with obesity and shortness of breath. ??Echocardiogram showed severe segmental LV dysfunction. ??She is now having chest pain. ??She was referred for catheterization. INDICATION FOR PROCEDURE Takotsubo cardiomyopathy. PROCEDURE PERFORMED Left heart catheterization, selective coronary angiography, left ventriculography. After obtaining informed consent, patient was brought to the cardiac computer lab para professional. ?She was prepped and draped in the usual sterile fashion. ?? Conscious sedation was administered by the computer lab para professional staff under my supervision. ??A total of 0.5 mg Versed and 25 mcg of fentanyl were given. ?? See procedure log for further details. ??Total sedation time was 16 minutes. ??A 6-[place] sheath was inserted in the right radial artery. ?? Combination of Angiomax, lidocaine, and nitroglycerin was administered intra-arterially. ??The selective coronary cannulation was performed using standard Eddy catheters. ??Left ventriculography was performed in the MATA projection using pigtail followed by left heart pullback. ??At the end of procedure, the arterial sheath was removed and hemostasis achieved by applying TR band to the right wrist. FINDINGS: HEMODYNAMICS: ?? LV pressure was 120/25, ascending aortic pressure 120/80. ??There was significant respiratory variations of her pressures. LEFT VENTRICULOGRAPHY: This showed akinesis of the anterolateral apical and diaphragmatic segment. ??The basal segments were reasonably well. ??Overall ejection fraction 20% to 25%. ??There was moderate +2 mitral regurgitation. RIGHT CORONARY ARTERY: ??The right coronary artery was a large dominant vessel and gives distally medium-sized posterior descending and several posterolateral branches. ?? The right coronary system was angiographically normal. LEFT CORONARY ARTERY: The left main coronary artery, the circumflex, the obtuse marginal branches were angiographically normal. ??The left anterior descending was also patent. ??There was possible muscle bridge in the mid segment. IMPRESSION 1. Angiographically no significant obstructive coronary artery disease. 2. Segmental left ventricular systolic dysfunction consistent with Takotsubo cardiomyopathy. 3. Moderate mitral regurgitation. 4. Elevated left ventricular diastolic pressure. CARE PLAN Medical therapy per primary team. John Dominguez MD Job ID/Internal Job ID: ??[id number] us Roly Husain MD CV CARDIAC CATH PROCEDURES Fi nal Result * ECG 12 lead (07/18/2023 1:59 PM CONCRETE TESTER) 07/18/2023 1:59 PM CONCRETE TESTER Narrative [facility] - 07/19/2023 7:57 AM CONCRETE TESTER Vent Rate: 91 bpm RR Interval: 655 msec WV Interval: 0 msec QRS Duration: 123 msec QT Interval: 420 msec QTC Interval: 469 msec P-R-T [place]: [id number] - 65 - 208 degrees IMPRESSION: ATRIAL FIBRILLATION MODERATE INTRAVENTRICULAR CONDUCTION DELAY ??[110+ ms QRS DURATION] ST DEVIATION AND MODERATE T-WAVE ABNORMALITY, CONSIDER ANTEROLATERAL ISCHEMIA ??[-0.1+ mV T-WAVE IN V3-V6] ST DEVIATION AND MODERATE T-WAVE ABNORMALITY, CONSIDER INFERIOR ISCHEMIA ??[- 0.1+ mV T-WAVE IN II/aVF] ABNORMAL ECG Compared to prior EKG, anterolateral T-wave inversions are new QT interval has increased Electronically Signed By: John Dominguez MD us Joycelyn Moseley MD ECG ORDERABLES Final Result [facility] * TRANSTHORACIC ECHO (TTE) COMPLETE W DOPPLER/CF WO CONTRAST (07/18/2023 9:56 AM CONCRETE TESTER) Anatomical Region Laterality Modality Ultrasound 07/18/2023 8:50 AM CONCRETE TESTER Narrative 07/18/2023 10:08 AM CONCRETE TESTER [address] [address] Echocardiogram Report Patient Name: PEBBLES LAL L : 1945 Study Date: 07/18/2023 8:50:58 AM Gender: F Tech: Location: [place] [address] Ref Provider: GIANLUCA SORIANO ?Height(Cm): 152 BSA: 2.39 Weight(Kg): 135.2 Quality: Adequate Order Provider: GIANLUCA SORIANO PROCEDURES: Echocardiographic Report: Transthoracic echocardiogram with complete 2D, M-Mode, and color Doppler examination. INDICATIONS: Congestive Heart Failure. Measurements: 2D/M Mode ?Doppler Measurement ?Value ?Normal Range ? Measurement ? Value ?Normal Range EF Teich MM ?47.3 ? [ 55.0 - 70.0 ] percent ?DANIELLE Vmax ?2.33 ? [ 2.00 - 4.00 ] cm2 LVIDd MM ? 6.07 ? [ 3.90 - 5.30 ] cm ? AV Mean PG ?11 ? [ 2 - 4 ] mmHg LVIDs MM ? 4.60 ? [ 2.30 - 3.90 ] cm ? AV Peak Morales ? 1.48 ? [ <= 0.02 ] m/s LVPWd MM ? 0.87 ? [ 0.60 - 1.00 ] cm ? AV VTI ?25.96 ?cm IVSd MM ?0.99 ? [ 0.60 - 0.90 ] cm ? LVOT Diam ? 2.18 ? [ 1.70 - 2.10 ] cm LA Dimension MM ?5.15 ? [ 2.70 - 3.80 ] cm ? LVOT Peak Morales ? 0.92 ? [ <= 0.01 ] m/s AoR Diam 2D ?2.83 ? [ 2.60 - 3.70 ] cm ? LVOT VTI ?16.52 ?[ 20.00 - 30.00 ] cm AoR Diam MM ?3.29 ? [ 2.60 - 3.70 ] cm ? MV Mean PG ?2 ?[ <= 5 ] mmHg PV Peak Morales ?0.77 ? m/s TR Peak Morales ?3.43 ? [ <= 0.03 ] m/s TR Peak PG ? 47 ? mmHg RVSP ? 57.00 ?[ 10.00 - 36.00 ] mmHg PA Pressure ?10.00 ?[ 10.00 - 36.00 ] mmHg Measurement ?Value ?Normal Range ? Measurement ? Value ?Normal Range 2D/M Mode ?Doppler - FINDINGS: Atrial Septum: Normal atrial septum. Left Ventricle: Irregular rhythm. Mild concentric left ventricular hypertrophy. Moderate global left ventricular systolic dysfunction. Ejection fraction is visually estimated at 35 to 40 %. 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 Left Atrium: There is mild enlargement of left atrium. Right Ventricle: Normal right ventricular size. Right Atrium: The right atrium is normal in size. Aortic Valve: Normal structure of the aortic valve. Mitral Valve: Mild mitral annular calcification. Mild to moderate mitral valve regurgitation. Pulmonic Valve: Normal structure of the pulmonic valve. Tricuspid Valve: Normal structure of the tricuspid valve. Moderate pulmonary hypertension based on right ventricular systolic pressure. Estimated peak RVSP is 57 to 61 mmHg. Trivial regurgitation in the tricuspid valve. Pericardium: Normal pericardium with no significant pericardial effusion. Aorta: Normal aortic root. IVC: Normal size and normal respiratory collapse consistent with normal right atrial pressure (<5 mmHg). CONCLUSIONS: Irregular rhythm. Mild concentric left ventricular hypertrophy. Moderate global left ventricular systolic dysfunction. Ejection fraction is visually estimated at 35 to 40 %. 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 There is mild enlargement of left atrium. Mild mitral annular calcification. Mild to moderate mitral valve regurgitation. Normal structure of the aortic valve. Normal structure of the tricuspid valve. Moderate pulmonary hypertension based on right ventricular systolic pressure. Estimated peak RVSP is 57 to 61 mmHg. Trivial regurgitation in the tricuspid valve. Electronically Signed By: Dr Roly Husain 2023-07-18 10:07:11 CONCRETE TESTER Procedure Note Roly Husain MD - 07/18/[address] [place] [address] Echocardiogram Report Patient Name: PEBBLES LAL L : 1945 Study Date: 07/18/2023 8:50:58 AM Gender: F Tech: Location: [id number] Ref Provider: GIANLUCA SORIANO Height(Cm): 152 BSA: 2.39 Weight(Kg): 135.2 Quality: Adequate Order Provider: GIANLUCA SORIANO PROCEDURES: Echocardiographic Report: Transthoracic echocardiogram with complete 2D, M-Mode, and color Dopplerexamination. INDICATIONS: Congestive Heart Failure. Measurements: 2D/M ModeDoppler Measurement Value Normal Range MeasurementValue Normal Range EF Teich MM 47.3 [ 55.0 - 70.0 ] percent DANIELLE Vmax2.33 [ 2.00 - 4.00 ] cm2 LVIDd MM 6.07 [ 3.90 - 5.30 ] cm AV Mean PG11 [ 2 - 4 ] mmHg LVIDs MM 4.60 [ 2.30 - 3.90 ] cm AV Peak Vel1.48 [ <= 0.02 ] m/s LVPWd MM 0.87 [ 0.60 - 1.00 ] cm AV VTI25.96 cm IVSd MM 0.99 [ 0.60 - 0.90 ] cm LVOT Diam2.18 [ 1.70 - 2.10 ] cm LA Dimension MM 5.15 [ 2.70 - 3.80 ] cm LVOT Peak Vel0.92 [ <= 0.01 ] m/s AoR Diam 2D 2.83 [ 2.60 - 3.70 ] cm LVOT VTI16.52 [ 20.00 - 30.00 ] cm AoR Diam MM 3.29 [ 2.60 - 3.70 ] cm MV Mean PG2 [ <= 5 ] mmHg PV Peak Morales 0.77 m/s TR Peak Morales 3.43 [ <= 0.03 ] m/s TR Peak PG 47 mmHg RVSP 57.00 [ 10.00 - 36.00 ] mmHg PA Pressure 10.00 [ 10.00 - 36.00 ] mmHg Measurement Value Normal Range MeasurementValue Normal Range 2D/M ModeDoppler - FINDINGS: Atrial Septum: Normal atrial septum. Left Ventricle: Irregular rhythm. Mild concentric left ventricular hypertrophy. Moderateglobal left ventricular systolic dysfunction. Ejection fraction is visually estimatedat 35 to 40 %. 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 Left Atrium: There is mild enlargement of left atrium. Right Ventricle: Normal right ventricular size. Right Atrium: The right atrium is normal in size. Aortic Valve: Normal structure of the aortic valve. Mitral Valve: Mild mitral annular calcification. Mild to moderate mitral valveregurgitation. Pulmonic Valve: Normal structure of the pulmonic valve. Tricuspid Valve: Normal structure of the tricuspid valve. Moderate pulmonary hypertensionbased on right ventricular systolic pressure. Estimated peak RVSP is 57 to 61 mmHg.Trivial regurgitation in the tricuspid valve. Pericardium: Normal pericardium with no significant pericardial effusion. Aorta: Normal aortic root. IVC: Normal size and normal respiratory collapse consistent with normal rightatrial pressure (<5 mmHg). CONCLUSIONS: Irregular rhythm. Mild concentric left ventricular hypertrophy. Moderateglobal left ventricular systolic dysfunction. Ejection fraction is visually estimatedat 35 to 40 %. 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 There is mild enlargement of left atrium. Mild mitral annular calcification. Mild to moderate mitral valveregurgitation. Normal structure of the aortic valve. Normal structure of the tricuspid valve. Moderate pulmonary hypertensionbased on right ventricular systolic pressure. Estimated peak RVSP is 57 to 61 mmHg.Trivial regurgitation in the tricuspid valve. Electronically Signed By: Dr Roly Husain 2023-07-18 10:07:11 CONCRETE TESTER us Gianluca Soriano MD PhD CV ECHO PROCEDURES Final R esult * eGFR (07/18/2023 3:34 AM CONCRETE TESTER) eGFR 72 mL/min/1. 73 m2 [facility] ([place]) Comment: [...] interpretive data was last reviewed 2021. Blood 07/18/2023 3:34 AM CONCRETE TESTER 07/18/2023 3:44 AM CONCRETE TESTER us Maciel Jean MD LAB BLOOD ORDERABLES Final Resu lt [facility] ([place]) 1 [facility] Department [place] [address] * (ABNORMAL) Comprehensive metabolic panel (07/18/2023 3:34 AM CONCRETE TESTER) Sodium 140 135 - 145 mmol/L [facility] ([place]) Potassium, pl 3.8 3.3 - 4.9 mmol/L [facility] ([place]) Chloride 101 97 - 110 mmol/L [facility] ([place]) CO2 30 22 - 32 mmol/L [facility] ([place]) Anion gap 9 2 - 15 mmol/L [facility] ([place]) BUN 19 6 - 25 mg/dL [facility] ([place]) Creatinine 0.84 0.60 - 1.10 mg/dL [facility] ([place]) Glucose 107 70 - 199 mg/dL [facility] ([place]) [...] classification and Diagnosis of Diabetes Diabetes Care 202; 46: S19-S40. Current interpretive data was last revised 2022. Calcium 8.8 8.5 - 10.3 mg/dL [facility] ([place]) Bilirubin, total 0.3 0.1 - 1.2 mg/dL [facility] ([place]) Protein, pl 6.9 6.5 - 8.5 g/dL [facility] ([place]) Albumin 2.9(L) 3.5 - 5.0 g/dL [facility] ([place]) Alk phos 119 40 - 130 Units/L [facility] ([place]) ALT 13 7 - 45 Units/L [facility] ([place]) AST 23 10 - 45 Units/L [facility] ([place]) Blood 07/18/2023 3:34 AM CONCRETE TESTER 07/18/2023 3:44 AM CONCRETE TESTER Maciel Jean MD LAB BLOOD ORDERABLES Final Resu lt Performing Organization Address [facility]/ZIP Co de Phone Number [facility] ([place]) 1 [facility] [employer] | [employer] [place] [address] * Magnesium (07/18/2023 3:34 AM CONCRETE TESTER) Magnesium 2.0 1.4 - 2.5 mg/dL [facility] ([place]) Blood 07/18/2023 3:34 AM CONCRETE TESTER 07/18/2023 3:44 AM CONCRETE TESTER Gianluca Soriano MD PhD LAB BLOOD ORDERABLES Final Result Performing Organization Address City/[facility]/ZIP Co de Phone Number [facility] ([place]) 1 [facility] | [employer] [place] [address] * Phosphorus (07/18/2023 3:34 AM CONCRETE TESTER) Phosphorus, pl 2.6 2.3 - 4.5 mg/dL [facility] ([place]) Blood 07/18/2023 3:34 AM CONCRETE TESTER 07/18/2023 3:44 AM CONCRETE TESTER Gianluca Soriano MD PhD LAB BLOOD ORDERABLES Final Result Performing Organization Address City/[facility] Co de Phone Number [facility] ([place]) 1 [facility] [place] [address] * (ABNORMAL) Cortisol (07/17/2023 8:27 AM CONCRETE TESTER) Cortisol 28.9(H) 4.8 - 19.5 mcg/dl [facility] ([place]) Comment: Interpretive Data Normal Range: ??4.8 - 19.5 mcg/dL; ??Evening: ??Half of morning value. ?? This analyte undergoes marked diurnal variation. ??Ranges indicated apply to morning specimens. ?? Current interpretive data was last revised 2018. Testing performed by: [facility], [address] [place] [address], [id number] Blood 07/17/2023 8:27 AM CONCRETE TESTER 07/17/2023 11:16 AM CONCRETE TESTER Maciel Jean MD LAB BLOOD ORDERABLES Final Resu lt Performing Organization Address [facility] Co de Phone Number [facility] ([place]) 1 [facility] [place] [address] * TSH reflex to free T4 (07/17/2023 8:27 AM CONCRETE TESTER) Pathologist [facility] TSH 1.45 0.30 - 4.20 mcIUnit/mL [facility] ([place]) Blood 07/17/2023 8:27 AM CONCRETE TESTER 07/17/2023 8:44 AM CONCRETE TESTER Maciel Jean MD LAB BLOOD ORDERABLES Final Resu lt Performing Organization Address City/[facility]/ZIP Co de Phone Number [facility] ([place]) 1 [facility] [place] [address] * eGFR (07/17/2023 5:11 AM CONCRETE TESTER) eGFR 49 mL/min/1. 73 m2 [facility] ([place]) Comment: [...] interpretive data was last reviewed 2021. Blood 07/17/2023 5:11 AM CONCRETE TESTER 07/17/2023 5:27 AM CONCRETE TESTER us Maciel Jean MD LAB BLOOD ORDERABLES Final Resu lt [facility] ([place]) 1 [facility] Department [place] [address] * (ABNORMAL) Troponin T high-sensitivity 6-hour (07/17/2023 5:11 AM CONCRETE TESTER) Trop T hs 350(C) <=14 ng/L [facility] ([place]) Comment: Critical Result called to and read back by orlando bee (ICU), DATE: 2023-07-17 05:47:59 BY: Annie Zuñiga Interpretive Data For further hscTnT resources including the diagnostic algorithm and an aid in interpretation, copy and paste this link: https://nrl.testcatalog.org/show/hsTrop Current Interpretive Data last revised 2020. Trop T hs delta 293(C) ng/L [facility] ([place]) Comment:Critical Result call ed to and read back by orlando bee (ICU), DATE: 2023-07-17 05:47:59 BY: Annie Zuñiga Trop T hs interp Significa nt(C) [facility] ([place]) Comment:Critical Result call ed to and read back by orlando bee (ICU), DATE: 2023-07-17 05:47:59 BY: Annie Zuñiga Blood 07/17/2023 5:11 AM CONCRETE TESTER 07/17/2023 5:31 AM CONCRETE TESTER us Maciel Jean MD LAB BLOOD ORDERABLES Final Resu lt Performing Organization Address City/[facility]/ZIP Co de Phone Number [facility] ([place]) 1 [facility] [place] [address] * Magnesium (07/17/2023 5:11 AM CONCRETE TESTER) Magnesium 2.0 1.4 - 2.5 mg/dL [facility] ([place]) Blood 07/17/2023 5:11 AM CONCRETE TESTER 07/17/2023 5:27 AM CONCRETE TESTER us Maciel Jean MD LAB BLOOD ORDERABLES Final Resu lt Performing Organization Address City/[facility]/ZIP Co de Phone Number [facility] ([place]) 1 [facility] [place] [address] * Phosphorus (07/17/2023 5:11 AM CONCRETE TESTER) Phosphorus, pl 3.2 2.3 - 4.5 mg/dL [facility] ([place]) Blood 07/17/2023 5:11 AM CONCRETE TESTER 07/17/2023 5:27 AM CONCRETE TESTER us Maciel Jean MD LAB BLOOD ORDERABLES Final Resu lt Performing Organization Address City/[facility]/ZIP Co de Phone Number [facility] ([place]) [address] Department [place] [address] * (ABNORMAL) Comprehensive metabolic panel (07/17/2023 5:11 AM CONCRETE TESTER) Sodium 138 135 - 145 mmol/L [facility] ([place]) Potassium, pl 3.8 3.3 - 4.9 mmol/L [facility] ([place]) Chloride 100 97 - 110 mmol/L [facility] ([place]) CO2 25 22 - 32 mmol/L [facility] ([place]) Anion gap 14 2 - 15 mmol/L [facility] ([place]) BUN 18 6 - 25 mg/dL [facility] ([place]) Creatinine 1.15(H) 0.60 - 1.10 mg/dL [facility] ([place]) Glucose 163 70 - 199 mg/dL [facility] ([place]) [...] interpretive data was last revised 2022. Calcium 9.4 8.5 - 10.3 mg/dL [facility] ([place]) Bilirubin, total 0.4 0.1 - 1.2 mg/dL [facility] ([place]) Protein, pl 7.4 6.5 - 8.5 g/dL [facility] ([place]) Albumin 3.2(L) 3.5 - 5.0 g/dL [facility] ([place]) Alk phos 139(H) 40 - 130 Units/L [facility] ([place]) ALT 14 7 - 45 Units/L [facility] ([place]) AST 22 10 - 45 Units/L [facility] ([place]) Blood 07/17/2023 5:11 AM CONCRETE TESTER 07/17/2023 5:27 AM CONCRETE TESTER Maciel Jean MD LAB BLOOD ORDERABLES Final Resu lt [facility] ([place]) 1 [facility] [place] [address] * Infection Prevention MRSA Only (Staphylococcus aureus) PCR Nasal (07/17/2023 4:50 AM CONCRETE TESTER) Pathologist [facility] PCR Scrn, Methicillin resistant Staphylococcus aureus (MRSA) Not Detected Not Detected [facility] ([place]) Comment: Interpretive Data Testing performed using Nucleic Acid Amplification with the [employer] Xpert MRSA NxG Assay. This assay detects target DNA from mecA, mecC and the SCCmec insertion site of Staphylococcus aureus using Real-Time PCR and has been cleared by the FDA. Performance characteristics have been verified by the [facility]. Current Interpretive Data was last revised on 2022 Nasal 07/17/2023 4:50 AM CONCRETE TESTER 07/17/2023 5:19 AM CONCRETE TESTER Maciel Jean MD LAB MICROBIOLOGY - GENERAL ORDE RABLES Final Result Performing Organization Address City/[facility]/ZIP Co de Phone Number [facility] ([place]) 1 [facility] [place] [address] * (ABNORMAL) Differential, auto (07/17/2023 4:42 AM CONCRETE TESTER) Neutrophil abs 15.8(H) 1.5 - 6.5 K/cumm [facility] ([place]) Imm gran abs 0.2(H) 0.0 - 0.1 K/cumm [facility] ([place]) Lymphocyte abs 0.8 0.8 - 3.3 K/cumm [facility] ([place]) Monocyte abs 0.5 0.2 - 0.8 K/cumm [facility] ([place]) Eosinophil abs 0.0 0.0 - 0.5 K/cumm [facility] ([place]) Basophil abs 0.1 0.0 - 0.1 K/cumm [facility] ([place]) Neutrophil pct 90.8 % [facility] ([place]) Comment: Interpretive Data Percent cell count reference ranges are not reported, since discordance with absolute values may lead to misinterpretation of CBC data. Current Interpretive Data was last revised on 2017. Imm gran pct 1.4 % [facility] ([place]) Comment: Interpretive Data Percent cell count reference ranges are not reported, since discordance with absolute values may lead to misinterpretation of CBC data. Current Interpretive Data was last revised on 2017. Lymphocyte pct 4.4 % [facility] ([place]) Comment: Interpretive Data Percent cell count reference ranges are not reported, since discordance with absolute values may lead to misinterpretation of CBC data. Current Interpretive Data was last revised on 2017. Monocyte pct 2.9 % [facility] ([place]) Comment: Interpretive Data Percent cell count reference ranges are not reported, since discordance with absolute values may lead to misinterpretation of CBC data. Current Interpretive Data was last revised on 2017. Eosinophil pct 0.2 % [facility] ([place]) Comment: Interpretive Data Percent cell count reference ranges are not reported, since discordance with absolute values may lead to misinterpretation of CBC data. Current Interpretive Data was last revised on 2017. Basophil pct 0.3 % [facility] ([place]) Comment: Interpretive Data Percent cell count reference ranges are not reported, since discordance with absolute values may lead to misinterpretation of CBC data. Current Interpretive Data was last revised on 2017. Blood 07/17/2023 4:42 AM CONCRETE TESTER 07/17/2023 4:46 AM CONCRETE TESTER us Silvia Villafana MD LAB BLOOD ORDERABLES Lisa l Result [facility] ([place]) 1 [facility] Department [place] [address] * (ABNORMAL) CBC with auto differential (07/17/2023 4:42 AM CONCRETE TESTER) WBC 17.4(H) 3.8 - 9.9 K/cumm [facility] ([place]) Hgb 13.4 11.9 - 15.5 g/dL [facility] ([place]) Hct 40.1 35.6 - 45.5 % [facility] ([place]) Plt 271 150 - 400 K/cumm [facility] ([place]) MPV 9.2 9.1 - 12.3 fL [facility] ([place]) RBC 4.24 3.90 - 5.20 M/cumm [facility] ([place]) MCV 94.6 81.3 - 96.4 fL [facility] ([place]) MCH 31.6 27.1 - 33.3 pg [facility] ([place]) MCHC 33.4 32.3 - 35.7 g/dL [facility] ([place]) RDW CV 13.8 11.1 - 14.9 % [facility] ([place]) RDW SD 47.7 35.7 - 48.1 fL [facility] ([place]) NRBC abs 0.00 0.00 - 0.01 K/cumm [facility] ([place]) Blood 07/17/2023 4:42 AM CONCRETE TESTER 07/17/2023 4:46 AM CONCRETE TESTER Silvia Villafana MD LAB BLOOD ORDERABLES Lisa l Result [facility] ([place]) 1 [facility] | [employer] [place] [address] * Sepsis Lactate w/ Reflex (07/17/2023 4:42 AM CONCRETE TESTER) Sepsis Lactate 1.7 0.7 - 2.0 mmol/L [facility] ([place]) Blood 07/17/2023 4:42 AM CONCRETE TESTER 07/17/2023 4:47 AM CONCRETE TESTER Silvia Villafana MD LAB BLOOD ORDERABLES Lisa l Result [facility] ([place]) 1 [facility] | [employer] [place] [address] * aPTT (07/17/2023 2:54 AM CONCRETE TESTER) aPTT 38 28 - 38 sec [facility] ([place]) Comment: Interpretive Data Heparin therapeutic range: 66.0 - 100.0 seconds. Range based on correlation with therapeutic heparin activity range of 0.3 - 0.7 Units/mL. Current interpretive data was last revised on 2023. Blood 07/17/2023 2:54 AM CONCRETE TESTER 07/17/2023 3:05 AM CONCRETE TESTER Narrative [facility] ([place]) - 07/17/2023 3:24 AM CONCRETE TESTER Baseline prior to enoxaparin initiation. Silvia Villafana MD LAB BLOOD ORDERABLES Lisa l Result TATE [facility] ([place]) 1 Formerly [id number] | [employer] [place] [address] * (ABNORMAL) Protime-INR (07/17/2023 2:54 AM CONCRETE TESTER) PT 14.4(H) 10.3 - 13.7 sec [facility]ATE [facility] ([place]) INR 1.26(H) 0.90 - 1.20 [facility]ATE [facility] ([place]) Comment: Interpretive data Oral anticoagulant therapeutic ranges: Venous thromboembolism prophylaxis or treatment: 2.0-3.0 CARDIOLOGY Standard range: 2.0-3.0 High-intensity range: 2.5-3.5 Refer to indication-specific guidelines for appropriate target ranges for prosthetic heart valve replacement. Current interpretive data was last revised on 2019. Blood 07/17/2023 2:54 AM CONCRETE TESTER 07/17/2023 3:05 AM CONCRETE TESTER Silvia Villafana MD LAB BLOOD ORDERABLES Lisa l Result TATE TAL[facility]OT ([place]) 1 Formerly [id number] | [employer] [place] [address] * (ABNORMAL) Troponin T high-sensitivity 4-hour (07/17/2023 2:54 AM CONCRETE TESTER) Trop T hs 369(C) <=14 ng/L [facility]ATE [facility] ([place]) Comment: Hemolysis present. ??Results may be affected. Critical Result called to and read back by Tonya Jean Paul, DATE: 2023-07-17 03:43:12 BY: Annie Zuñiga Interpretive Data For further hscTnT resources including the diagnostic algorithm and an aid in interpretation, copy and paste this link: https://nrl.testcatalog.org/show/hsTrop Current Interpretive Data last revised 2020. Trop T hs delta 312(C) ng/L [facility] ([place]) Comment:Critical Result call ed to and read back by Tonya Reaves, DATE: 2023-07-17 03:43:12 BY: Annie Zuñiga Trop T hs interp Significa nt(C) [facility] ([place]) Comment:Critical Result call ed to and read back by Tonya Reaves, DATE: 2023-07-17 03:43:12 BY: Annie Zuñiga Blood 07/17/2023 2:54 AM CONCRETE TESTER 07/17/2023 3:05 AM CONCRETE TESTER Silvia Villafana MD LAB BLOOD ORDERABLES Lisa l Result TATE [facility]AL[facility]OT ([place]) 1 Formerly [facility] [employer] [place] [address] * (ABNORMAL) Sepsis Lactate w/ Reflex (07/17/2023 1:34 AM CONCRETE TESTER) Sepsis Lactate 2.2(H) 0.7 - 2.0 mmol/L [facility] ([place]) Blood 07/17/2023 1:34 AM CONCRETE TESTER 07/17/2023 1:39 AM CONCRETE TESTER Silvia Villafana MD LAB BLOOD ORDERABLES Lisa l Result [facility] ([place]) 1 Formerly [facility] [employer] [place] [address] * ECG 12 lead (07/17/2023 1:23 AM CONCRETE TESTER) 07/17/2023 1:23 AM CONCRETE TESTER Narrative [facility] - 07/18/2023 4:37 PM CONCRETE TESTER Vent Rate: 85 bpm RR Interval: 700 msec WV Interval: 0 msec QRS Duration: 123 msec QT Interval: 403 msec QTC Interval: 445 msec P-R-T [place]: [id number] - 33 - 52 degrees IMPRESSION: UNCERTAIN REGULAR RHYTHM, probably junctional POSSIBLE LATERAL MYOCARDIAL INFARCTION , OF INDETERMINATE AGE [30 ms Q WAVE IN I/aVL/V5/V6] ABNORMAL ECG NO CHANGE FROM PREVIOUS TRACING NOTED Electronically Signed By: John Dominguez MD Silvia Villafana MD ECG ORDERABLES Final Res ult [facility] * (ABNORMAL) Urine culture Urine (07/17/2023 12:35 AM CONCRETE TESTER) Report Final Report: Greater than or equal to 100,000 colonies/mL of Escherichia coli Plus growth of clinically insignificant bacterial star. (.) [facility] ([place]) Comment:Testing performed by : [facility], 1 [facility] [place] [address] Organism ESCHERICHIA COLI [facility] ([place]) Organism PLUS GROWTH OF CLINICALLY INSIGNIFICANT STAR. [facility] ([place]) Urine 07/17/2023 12:3 5 AM CONCRETE TESTER 07/17/2023 6:57 AM CONCRETE TESTER Narrative [facility] ([place]) - 07/19/2023 9:29 AM CONCRETE TESTER Urine culture reflexed based upon urinalysis results. Testing performed by [facility] ([phone]) Organism Antibiotic Method Susceptibility Escherichia coli Ampicillin INTERPRETATION Susceptible Escherichia coli Cefazolin INTERPRETATION Susceptible Escherichia coli Nitrofurantoin INTERPRETATION Susceptible Escherichia coli Gentamicin INTERPRETATION Susceptible Escherichia coli Trimethoprim with Sulfamethoxazole IN TERPRETATION Susceptible Escherichia coli Meropenem INTERPRETATION Susceptible Escherichia coli Cefepime INTERPRETATION Susceptible Escherichia coli Ciprofloxacin INTERPRETATION Susceptible Escherichia coli Ceftazidime INTERPRETATION Susceptible Escherichia coli Ceftriaxone INTERPRETATION Susceptible Escherichia coli Piperacillin/Tazobactam INTERPRETATIO N Susceptible Escherichia coli Cephalexin INTERPRETATION Susceptible Escherichia coli Cefuroxime-axetil INTERPRETATION Susceptible Escherichia coli Cefdinir INTERPRETATION Susceptible Silvia Villafana MD LAB MICROBIOLOGY - GENERA L ORDERABLES Final Result Performing Organization Address City/[facility]/ZIP Co de Phone Number TATE T[facility]OT ([place]) [address] [place] [address] * (ABNORMAL) Urinalysis, microscopic only (07/17/2023 12:35 AM CONCRETE TESTER) WBC, ur >50(A) 0 - 5 /HPF [facility] ([place]) RBC, ur 21-50(A) 0 - 2 /HPF [facility] ([place]) Epithelial cells, squamous, ur 1-5 0 - 5 /HPF [facility] ([place]) Bacteria, ur 4+(A) [facility] ([place]) Yeast, ur 2+(A) [facility] ([place]) Mucous, ur Present(A) [facility] ([place]) Culture Reflex Comment Reflex to urine culture will be performed. [facility]ATE [facility] ([place]) Urine 07/17/2023 12:3 5 AM CONCRETE TESTER 07/17/2023 12:37 AM CONCRETE TESTER Silvia Villafana MD LAB URINE ORDERABLES Lisa l Result Performing Organization Address [facility] Co de Phone Number [facility]ATE [facility] ([place]) [address] [place] [address] * (ABNORMAL) Urinalysis reflex to microscopic and culture Urine (07/17/2023 12:35 AM CONCRETE TESTER) Color, ur Yellow Yellow [facility] ([place]) Clarity, ur Turbid(A) Clear [facility] ([place]) Specific gravity, ur 1.015 1.003 - 1.030 [facility] ([place]) pH, urine 5.5 [facility] ([place]) Comment: Interpretive Data ? Urine pH is affected by diet, medications, systemic acid-base disturbances, and renal tubular function. ??pH may affect urinary stone formation. ??For example, urine pH below 6.0 may help reduce the tendency for calcium phosphate stones and pH greater than 6.0 may reduce the tendency for uric acid stone formation. Source: [facility] Current Interpretive Data was last revised on 2017 Protein, ur ql 2+(A) Negative [facility] ([place]) Glucose, ur ql Negative Negative [facility] ([place]) Ketones, ur Negative Negative [facility] ([place]) Bilirubin, ur Negative Negative [facility] ([place]) Blood, ur 3+(A) Negative [facility] ([place]) Urobilinogen, ur <2.0 <2.0 mg/dL [facility] ([place]) Nitrite, ur Negative Negative [facility] ([place]) Leukocyte esterase, ur 4+(A) Negative [facility] ([place]) UA reflex comment Reflex to microscopic UA will be performed. [facility] ([place]) Urine 07/17/2023 12:3 5 AM CONCRETE TESTER 07/17/2023 12:37 AM CONCRETE TESTER us Silvia Villafana MD LAB MICROBIOLOGY - GENERA L ORDERABLES Final Result [facility] ([place]) 1 Formerly [facility] Department [place] [address] * (ABNORMAL) Troponin T high-sensitivity 2-hour (07/17/2023 12:35 AM CONCRETE TESTER) Trop T hs 226(C) <=14 ng/L [facility] ([place]) Comment: Critical Result called to and read back by Edith Loyd (ER), DATE: 2023-07-17 01:16:22 BY: ?Bridget Interpretive Data For further hscTnT resources including the diagnostic algorithm and an aid in interpretation, copy and paste this link: https://nrl.testcatalog.org/show/hsTrop Current Interpretive Data last revised 2020. Trop T hs delta 169(C) ng/L [facility] ([place]) Comment:Critical Result call ed to and read back by Edith Loyd (ER), DATE: 2023-07-17 01:16:22 BY: Brayan Trop T hs interp Significa nt(C) [facility] ([place]) Comment:Critical Result call ed to and read back by Edith Loyd (ER), DATE: 2023-07-17 01:16:22 BY: Brayan Blood 07/17/2023 12:3 5 AM CONCRETE TESTER 07/17/2023 12:37 AM CONCRETE TESTER us Silvia Villafana MD LAB BLOOD ORDERABLES Lisa l Result [facility]ATE AN[facility]E ([place]) 1 Formerly [facility] Department [place] [address] * ECG 12 lead (07/16/2023 11:05 PM CONCRETE TESTER) 07/16/2023 11:0 5 PM CONCRETE TESTER Narrative [facility] - 07/18/2023 4:37 PM CONCRETE TESTER Vent Rate: 100 bpm RR Interval: 597 msec WV Interval: 0 msec QRS Duration: 128 msec QT Interval: 355 msec QTC Interval: 412 msec P-R-T [place]: [id number] - 33 - 56 degrees IMPRESSION: UNCERTAIN REGULAR RHYTHM, probably junctional POSSIBLE LATERAL MYOCARDIAL INFARCTION , OF INDETERMINATE AGE [30 ms Q WAVE IN I/aVL/V5/V6] CRITICAL TEST RESULT Compared to prior EKG, P-waves are not present Electronically Signed By: John Dominguez MD us Gianluca Soriano MD PhD ECG ORDERABLES Final Resu lt [facility] * (ABNORMAL) Troponin T high-sensitivity series (baseline, 2hr, 4hr, 6hr) (07/16/2023 10:49 PM CONCRETE TESTER) Trop T hs 57(H) <=14 ng/L [facility]ATE [facility] ([place]) Comment: Interpretive Data For further hscTnT resources including the diagnostic algorithm and an aid in interpretation, copy and paste this link: https://nrl.testcatalog.org/show/hsTrop Current Interpretive Data last revised 2020. Blood 07/16/2023 10:4 9 PM CONCRETE TESTER 07/16/2023 10:53 PM CONCRETE TESTER us Silvia Villafana MD LAB BLOOD ORDERABLES Lisa mazariegos Result TATE AN[facility]IONE ([place]) 1 Formerly [facility] Department [place] [address] * Blood culture Blood Peripheral (07/16/2023 10:49 PM CONCRETE TESTER) Report Final Report: No growth [facility]ATE [facility] ([place]) Comment:Testing performed by : [facility], 1 [facility], [place]., [address] Blood (Peripheral) 07/16/2023 10:49 PM CONCRETE TESTER 07/17/2023 6:51 AM CONCRETE TESTER Narrative EMM[facility]UEL[facility]UE TAL[facility]OT ([place]) - 07/21/2023 7:00 AM CONCRETE TESTER From a different site than #1. Draw Blood cultures before administration of Antibiotics Collection->Peripheral 1. ?Blood cultures are incubated for 4 days on a continuously monitored blood culture system. The first report of a negative culture is issued within 24 hours of receipt of the specimen in the laboratory. 2. ?Positive culture results are reported as soon as they are detected. 3. ?The most important factor for detection of microbes in the setting of bloodstream infection is the volume of blood submitted for culture. Failure to collect an optimal blood volume can result in false negative blood cultures. For pediatric patients, the recommended blood volume to collect is 1 mL of blood per year of patient age (up to 20 mL) per blood culture set. For adult patients, 20 mL of blood, divided equally between aerobic and anaerobic blood culture bottles, is recommended for each blood culture set. 4. ?For blood cultures with Gram-positive cocci, a rapid molecular test for organism identification may be performed using the [employer] Gram-Positive Blood Culture Assay. This assay detects microbial DNA in positive blood culture broth via hybridization of target DNA to capture oligonucleotides on a microarray. This assay has been cleared by the [place] Food and Drug Administration and its performance characteristics have been verified by the [facility]. 5. ?For questions about this culture, contact the Microbiology Laboratory at [phone]. Interpretive data was last revised on 2019. us Silvia Villafana MD LAB MICROBIOLOGY - GENERA L ORDERABLES Final Result TATE HERRERA) 1 Formerly [facility] Department [place] [address] * Blood culture Blood Peripheral (07/16/2023 10:49 PM CONCRETE TESTER) Report Final Report: No growth [facility]ATE [facility]AL[facility]OT ([place]) Comment:Testing performed by : [facility], 1 [facility] [place]., [address] Blood (Peripheral) 07/16/2023 10:49 PM CONCRETE TESTER 07/17/2023 6:51 AM CONCRETE TESTER Narrative [facility] ([place]) - 07/21/2023 7:00 AM CONCRETE TESTER Draw Blood cultures before administration of Antibiotics Collection->Peripheral 1. ?Blood cultures are incubated for 4 days on a continuously monitored blood culture system. The first report of a negative culture is issued within 24 hours of receipt of the specimen in the laboratory. 2. ?Positive culture results are reported as soon as they are detected. 3. ?The most important factor for detection of microbes in the setting of bloodstream infection is the volume of blood submitted for culture. Failure to collect an optimal blood volume can result in false negative blood cultures. For pediatric patients, the recommended blood volume to collect is 1 mL of blood per year of patient age (up to 20 mL) per blood culture set. For adult patients, 20 mL of blood, divided equally between aerobic and anaerobic blood culture bottles, is recommended for each blood culture set. 4. ?For blood cultures with Gram-positive cocci, a rapid molecular test for organism identification may be performed using the [employer] Gram-Positive Blood Culture Assay. This assay detects microbial DNA in positive blood culture broth via hybridization of target DNA to capture oligonucleotides on a microarray. This assay has been cleared by the [place] Food and Drug Administration and its performance characteristics have been verified by the [facility]. 5. ?For questions about this culture, contact the Microbiology Laboratory at [phone]. Interpretive data was last revised on 2019. us Silvia Villafana MD LAB MICROBIOLOGY - GENERA L ORDERABLES Final Result [facility]ATE [facility] ([place]) 1 [facility]ly [facility] Department [place] [address] * XR CHEST 1 VIEW PORTABLE (07/16/2023 10:40 PM CONCRETE TESTER) Anatomical Region Laterality Modality Body, Chest N/A Computed Radiogr aphy 07/16/2023 10:4 2 PM CONCRETE TESTER Narrative 07/16/2023 10:43 PM CONCRETE TESTER EXAM DESCRIPTION: XR CHEST 1 VIEW REASON FOR STUDY: cough ?? Pt presents [place] [facility] with nausea vomiting diarrhea spo2 89% RA ? TECHNIQUE: 1 ??radiographic view(s) of the chest. COMPARISON: 04/14/2019 FINDINGS: Stable cardiomegaly. ??Poor inspiratory result with bibasilar discoid atelectasis. ??Mild pulmonary vascular congestion. ??No airspace consolidation. ?? No pneumothorax. IMPRESSION: Cardiomegaly and mild pulmonary vascular congestion. THIS IS AN ELECTRONICALLY VERIFIED FINAL REPORT 07/16/2023 10:43 PM - Electronically signed by ??Pawan Mata M.D. KT: KT D: ??07/16/2023 10:43 PM T: ??07/16/2023 10:43 PM Report ID: [id number] Reading Location: ??[id number] Procedure Note Pawan Mata MD - 07/16/2023 EXAM DESCRIPTION: XR CHEST 1 VIEW REASON FOR STUDY: cough Pt presents [place] [employer] with nausea vomiting diarrhea spo2 89% RA TECHNIQUE: 1 radiographic view(s) of the chest. COMPARISON: 04/14/2019 FINDINGS: Stable cardiomegaly. Poor inspiratory result with bibasilar discoid atelectasis. Mild pulmonary vascular congestion. No airspaceconsolidation. No pneumothorax. IMPRESSION: Cardiomegaly and mild pulmonary vascular congestion. THIS IS AN ELECTRONICALLY VERIFIED FINAL REPORT 07/16/2023 10:43 PM - Electronically signed by Pawan Mata M.D. KT: KT Report ID: [id number] Reading Location: [id number] Silvia Villafana MD IMG XR PROCEDURES Final R esult * eGFR (07/16/2023 10:03 PM CONCRETE TESTER) [facility] eGFR 74 mL/min/1. 73 m2 [facility]ATE [facility] ([place]) Comment: Interpretive Data Reference Interval Normal ?>/= [...] interpretive data was last reviewed 2021. Blood 07/16/2023 10:0 3 PM CONCRETE TESTER 07/16/2023 10:07 PM CONCRETE TESTER Silvia Villafana MD LAB BLOOD ORDERABLES Lisa l Result [facility]ATE [facility]AL[facility]OT ([place]) 1 Formerly [facility] Department of Laboratories [place], [place] [phone] * (ABNORMAL) Pro B-type natriuretic peptide (07/16/2023 10:03 PM CONCRETE TESTER) NT-proBNP 1,392(H) <=450 pg/mL [facility]ATE TAL[facility] ([place]) Comment: Interpretive Comments: A. Dyspnea in Acute Care Setting All Ages: ?< 300 pg/ml, acute heart failure unlikely. < 50 yrs: ?300 - 450 pg/ml, further investigation warranted. ? > 450 pg/ml, acute heart failure likely. 50 - 74 yrs: ? 300 - 900 pg/ml, further investigation warranted. ? > 900 pg/ml, acute heart failure likely . > or = 75 yrs: ? 450 - 1800 pg/ml, further investigation warranted. ? > 1800 pg/ml, acute heart failure likely. B. Non-acute Setting < 75 yrs ? < 125 pg/ml, rules out heart failure. ? > or = 125 pg/ml, further investigation warranted. > or = 75 yrs ?< 450 pg/ml, rules out heart failure. ? > or = 450 pg/ml, further investigation warranted. - Knowledge of each individual patient's NT-proBNP range may be more useful than using similar cut-points for every patient. Please note that marked elevations in NT-proBNP levels may be observed in state other than Left Ventricular Congestive Failure, including: acute coronary syndromes, right heart strain/failure (including pulmonary embolism and cor pulmonale), critical illness, renal failure, as well as advanced age. - References: 1. Juli JAFFE et.al. Eur Heart J. 2006:27:330-337. 2. Reji RW, Jaqueline BIANCHI. J. AM Ivana Cardiol: Cardiovasc Imag. 2009;2: 216- 225. Interpretive Data Last Revised Date: 2018. Blood 07/16/2023 10:0 3 PM CONCRETE TESTER 07/16/2023 10:55 PM CONCRETE TESTER Silvia Villafana MD LAB BLOOD ORDERABLES Lisa mazariegos Result [facility] ([place]) 1 Formerly [facility] Department [place] [address] * (ABNORMAL) Differential, auto (07/16/2023 10:03 PM CONCRETE TESTER) Neutrophil abs 13.6(H) 1.5 - 6.5 K/cumm [facility] ([place]) Imm gran abs 0.3(H) 0.0 - 0.1 K/cumm [facility] ([place]) Lymphocyte abs 1.2 0.8 - 3.3 K/cumm [facility] ([place]) Monocyte abs 1.3(H) 0.2 - 0.8 K/cumm [facility] ([place]) Eosinophil abs 0.0 0.0 - 0.5 K/cumm [facility] ([place]) Basophil abs 0.2(H) 0.0 - 0.1 K/cumm [facility] ([place]) Neutrophil pct 81.7 % [facility] ([place]) Comment: Interpretive Data Percent cell count reference ranges are not reported, since discordance with absolute values may lead to misinterpretation of CBC data. Current Interpretive Data was last revised on 2017. Imm gran pct 2.0 % [facility] ([place]) Comment: Interpretive Data Percent cell count reference ranges are not reported, since discordance with absolute values may lead to misinterpretation of CBC data. Current Interpretive Data was last revised on 2017. Lymphocyte pct 7.4 % [facility] ([place]) Comment: Interpretive Data Percent cell count reference ranges are not reported, since discordance with absolute values may lead to misinterpretation of CBC data. Current Interpretive Data was last revised on 2017. Monocyte pct 7.9 % [facility] ([place]) Comment: Interpretive Data Percent cell count reference ranges are not reported, since discordance with absolute values may lead to misinterpretation of CBC data. Current Interpretive Data was last revised on 2017. Eosinophil pct 0.1 % [facility] ([place]) Comment: Interpretive Data Percent cell count reference ranges are not reported, since discordance with absolute values may lead to misinterpretation of CBC data. Current Interpretive Data was last revised on 2017. Basophil pct 0.9 % [facility] ([place]) Comment: Interpretive Data Percent cell count reference ranges are not reported, since discordance with absolute values may lead to misinterpretation of CBC data. Current Interpretive Data was last revised on 2017. Blood 07/16/2023 10:0 3 PM CONCRETE TESTER 07/16/2023 10:07 PM CONCRETE TESTER Silvia Villafana MD LAB BLOOD ORDERABLES Lisa mazariegos Result [facility] ([place]) 1 Formerly [facility] Department [place] [address] * Influenza A/B, RSV, and COVID-19 PCR Nasopharyngeal (07/16/2023 10:03 PM CONCRETE TESTER) COVID-19 RNA Negative Negative [facility]) Influenza A RNA Negative Negative [facility] ([place]) Influenza B RNA Negative Negative [facility] ([place]) RSV RNA Negative Negative [facility] ([place]) Comment: Interpretive data: Testing performed by [facility]. This test is performed using the [employer] Xpert Xpress CoV-2/Flu/RSV plus assay. This is a multiplex, real- time reverse transcriptase PCR assay intended for the qualitative detection of nucleic acid from SARS-CoV-2, influenza A, influenza B, and respiratory syncytial virus. This assay has been cleared by the [place] Food and Drug administration. The performance characteristics have been verified by the [facility]. ?? Results must be considered in the clinical context, and a negative result does not rule out infection. Interpretive Data last revised 2023 Nasopharyngeal 07/16/2023 10 :03 PM CONCRETE TESTER 07/16/2023 10:07 PM CONCRETE TESTER Narrative [facility] ([place]) - 07/16/2023 11:01 PM CONCRETE TESTER Is the Patient experiencing symptoms consistent with COVID?->Yes Date of Symptom Onset->07/09/23 Reason for testing?->Symptomatic us Silvia Villafana MD LAB MICROBIOLOGY - GENERA L ORDERABLES Final Result Performing Organization Address City/[facility]/ZIP Co de Phone Number [facility]ATE [facility] ([place]) 1 [facility] [place] [address] * Lipase (07/16/2023 10:03 PM CONCRETE TESTER) Pathologist [facility] Lipase 13 10 - 99 Units/L [facility] ([place]) Blood 07/16/2023 10:0 3 PM CONCRETE TESTER 07/16/2023 10:07 PM CONCRETE TESTER Silvia Villafana MD LAB BLOOD ORDERABLES Lisa l Result Performing Organization Address [facility] Co de Phone Number [facility]ATE [facility] ([place]) 1 [facility] [place] [address] * (ABNORMAL) Comprehensive metabolic panel (07/16/2023 10:03 PM CONCRETE TESTER) Pathologist [facility] Sodium 131(L) 135 - 145 mmol/L [facility] ([place] Potassium, pl 5.3(H) 3.3 - 4.9 mmol/L [facility] ([place]) Comment:Moderately Hemolyzed Specimen. Results may be affected. Chloride 94(L) 97 - 110 mmol/L [facility] ([place]) CO2 21(L) 22 - 32 mmol/L [facility] ([place]) Anion gap 15 2 - 15 mmol/L [facility] ([place]) BUN 15 6 - 25 mg/dL [facility] ([place]) Creatinine 0.82 0.60 - 1.10 mg/dL [facility] ([place]) Glucose 240(H) 70 - 199 mg/dL [facility] ([place]) [...] interpretive data was last revised 2022. Calcium 9.2 8.5 - 10.3 mg/dL [facility] ([place]) Bilirubin, total 0.5 0.1 - 1.2 mg/dL [facility] ([place]) Protein, pl 7.6 6.5 - 8.5 g/dL [facility] ([place]) Albumin 3.1(L) 3.5 - 5.0 g/dL [facility] ([place]) Alk phos 154(H) 40 - 130 Units/L [facility] ([place]) ALT 14 7 - 45 Units/L [facility] ([place]) Comment: Hemolysis present. ??Results may be affected. Moderately Hemolyzed Specimen AST 22 10 - 45 Units/L [facility] ([place]) Comment: Hemolysis present. ??Results may be affected. Moderately Hemolyzed Specimen Blood 07/16/2023 10:0 3 PM CONCRETE TESTER 07/16/2023 10:07 PM CONCRETE TESTER us Silvia Villafana MD LAB BLOOD ORDERABLES Lisa l Result [facility] ([place] 1 [facility] Department [place] [address] * (ABNORMAL) CBC with auto differential (07/16/2023 10:03 PM CONCRETE TESTER) WBC 16.6(H) 3.8 - 9.9 K/cumm [facility] ([place]) Hgb 14.0 11.9 - 15.5 g/dL [facility] ([place]) Comment: Interpretive Data A reference range for this assay has not been established for patients with an unknown legal sex. Please refer to the laboratory test catalog for established sex-specific reference intervals. Current interpretive data was last revised on 2023. Hct 41.8 35.6 - 45.5 % [facility] ([place]) Comment: Interpretive Data A reference range for this assay has not been established for patients with an unknown legal sex. Please refer to the laboratory test catalog for established sex-specific reference intervals. Current interpretive data was last revised on 2023. Plt 354 150 - 400 K/cumm [facility] MPV 9.1 9.1 - 12.3 fL [facility] RBC 4.43 3.90 - 5.20 M/cumm [facility] Comment: Interpretive Data A reference range for this assay has not been established for patients with an unknown legal sex. Please refer to the laboratory test catalog for established sex-specific reference intervals. Current interpretive data was last revised on 2023. MCV 94.4 81.3 - 96.4 fL [facility] MCH 31.6 27.1 - 33.3 pg [facility] MCHC 33.5 32.3 - 35.7 g/dL [facility] RDW CV 13.8 11.1 - 14.9 % [facility] RDW SD 48.1 35.7 - 48.1 fL [facility] NRBC abs 0.00 0.00 - 0.01 K/cumm [facility] Blood 07/16/2023 10:0 3 PM CONCRETE TESTER 07/16/2023 10:07 PM CONCRETE TESTER us Silvia Villafana MD LAB BLOOD ORDERABLES Lisa mazariegos Result [facility] ([facility]) 1 [facility] Department of Laboratories [place], [place] [id number] documented in this encounter Visit Diagnoses Diagnosis Vomiting and diarrhea- Primary Vomiting and diarrhea Cystitis Unspecified cystitis Elevated troponin Other abnormal blood chemistry NSTEMI (non-ST elevated myocardial infarction) (CMS/HCC) (HCC) Acute myocardial infarction, subendocardial infarction, episode of care unspecified Takotsubo cardiomyopathy [I51.81] Takotsubo syndrome Acquired hypothyroidism Unspecified hypothyroidism Class 3 severe obesity due to excess calories with serious comorbidity and body mass index (BMI) of 50.0 to 59.9 in adult ([facility]) New onset atrial fibrillation ([facility]) ([facility]) Atrial fibrillation NSTEMI (non-ST elevated myocardial infarction) ([facility]) ([facility]) Acute myocardial infarction, subendocardial infarction, episode of care unspecified Takotsubo cardiomyopathy Takotsubo syndrome Mitral regurgitation Mitral valve disorders Class 3 severe obesity due to excess calories with serious comorbidity and body mass index (BMI) of 50.0 to 59.9 in adult ([facility]) Acquired hypothyroidism Unspecified hypothyroidism New onset atrial fibrillation ([facility]) ([facility]) Atrial fibrillation Mild protein-calorie malnutrition ([facility]) ([facility]) NSTEMI (non-ST elevated myocardial infarction) ([facility]) ([facility]) Acute myocardial infarction, subendocardial infarction, episode of care unspecified documented in this encounter Admitting Diagnoses Diagnosis Vomiting and diarrhea NSTEMI (non-ST elevated myocardial infarction) ([facility]) ([facility]) Acute myocardial infarction, subendocardial infarction, episode of care unspecified documented in this encounter Administered Medications Inactive Administered Medications - up to 3 most recent administrations Medication Order MAR Action Action Date Dose Rate Site acetaminophen (TYLENOL) tablet 650 mg 650 mg, oral, Once, On 07/16/23 at 2229, For 1 dose Given 07/16/2023 10:47 PM CONCRETE TESTER 650 mg acetaminophen (TYLENOL) tablet 650 mg 650 mg, oral, Every 4 hours PRN, 1st line for pain, fever, Starting on 07/17/23 at 0650 Given 07/29/2023 3:40 AM CONCRETE TESTER 650 mg Given 07/28/2023 3:36 PM CONCRETE TESTER 650 mg Given 07/28/2023 3:27 AM CONCRETE TESTER 650 mg albuterol 2.5 mg /3 mL (0.083 %) nebulizer solution 2.5 mg 2.5 mg, nebulization, Every 4 hours PRN (respiratory care assistant), wheezing, shortness of breath, Starting on 07/18/23 at 1438 Given 07/20/2023 7:32 PM CONCRETE TESTER 2.5 mg Given 07/20/2023 12:58 PM CONCRETE TESTER 2.5 mg Given 07/18/2023 9:56 PM CONCRETE TESTER 2.5 mg albuterol 2.5 mg /3 mL (0.083 %) nebulizer solution 2.5 mg 2.5 mg, nebulization, Every 6 hours (respiratory care assistant), First dose on Tue07/20/23 at 2100 Given 07/21/2023 7:20 PM CONCRETE TESTER 2. 5 mg Given 07/21/2023 2:37 PM CONCRETE TESTER 2.5 mg Given 07/21/2023 8:50 AM CONCRETE TESTER 2.5 mg albuterol HFA (PROVENTIL HFA,VENTOLIN HFA,PROAIR HFA) 90 mcg/actuation inhaler 2 puff 2 puff, inhalation, Once (respiratory care assistant), On Tue07/16/23 at 2226, For 1 dose Given 07/16/2023 11:06 PM CONCRETE TESTER 2 puffs amiodarone (NEXTERONE) 150 mg/100 mL (1.5 mg/mL) in dextrose (premix) 150 mg 150 mg, intravenous, at 600 mL/hr, Administer over 10 Minutes, Once, On Tue07/18/23 at 1900, For 1 dose, Use filter 0.22 micron or less New Bag 07/18/2023 6:28 PM CONCRETE TESTER 150 mg 600 mL/hr amiodarone (PACERONE) tablet 200 mg 200 mg, oral, 2 times daily, First dose on Tue07/19/23 at 1545, For 14 days Given 07/29/2023 9:35 AM CONCRETE TESTER 200 mg Given 07/28/2023 8:15 PM CONCRETE TESTER 200 mg Given 07/28/2023 8:32 AM CONCRETE TESTER 200 mg amiodarone (PACERONE) tablet 200 mg 200 mg, oral, Daily, First dose on Tue08/02/23 at 0900 amiodarone in dextrose (NEXTERONE) 360 mg/200 mL (1.8 mg/mL) infusion (premix) 1 mg/min (33.3333 mL/hr, rounded to 33.3 mL/hr), 1.8 mg/mL, intravenous, Continuous, Starting on Tue07/18/23 at 1900, Until Tue07/19/23 at 0041, Use filter 0.22 micron or less, STAT New Bag 07/18/2023 6:42 PM CONCRETE TESTER 1 mg/min 33.3 mL/hr amiodarone in dextrose (NEXTERONE) 360 mg/200 mL (1.8 mg/mL) infusion (premix) 0.5 mg/min (16.6667 mL/hr, rounded to 16.67 mL/hr), 1.8 mg/mL, intravenous, Continuous, Starting on Tue07/19/23 at 0042, Until Tue07/19/23 at 1535, Use filter 0.22 micron or less, Routine New Bag 07/19/2023 12:11 AM CONCRETE TESTER 0.5 mg/min 16.67 mL/hr apixaban (ELIQUIS) tablet 2.5 mg 2.5 mg, oral, Every 12 hours scheduled, First dose (after last modification) on Tue07/20/23 at 2100, Indications: VTE Prophylaxis, atrial fibrillationIndications:VTE Prophylaxis,atrial fibrillation Given 07/29/2023 9:34 AM CONCRETE TESTER 2.5 mg Given 07/28/2023 8:15 PM CONCRETE TESTER 2.5 mg Given 07/28/2023 8:32 AM CONCRETE TESTER 2.5 mg apixaban (ELIQUIS) tablet 5 mg 5 mg, oral, Every 12 hours scheduled, First dose (after last modification) on Tue07/19/23 at 2100, Increase apixaban 2.5 mg PO BID to 5 mg PO BID (<80 years old (78 years old); weight>60 kg (135.2 kg); Scr<1.5 (0.77), Indications: VTE Prophylaxis, atrial fibrillationIndications:VTE Prophylaxis,atrial fibrillation Given 07/20/2023 7:42 AM CONCRETE TESTER 5 mg Given 07/19/2023 8:47 PM CONCRETE TESTER 5 mg atorvastatin (LIPITOR) tablet 10 mg 10 mg, oral, Daily, First dose on Tue07/27/23 at 1530 Given 07/29/2023 9:35 AM CONCRETE TESTER 10 mg Given 07/28/2023 8:32 AM CONCRETE TESTER 10 mg Given 07/27/2023 6:41 PM CONCRETE TESTER 10 mg azithromycin (ZITHROMAX) 500 mg/250 mL in sodium chloride 0.9% (premix) 500 mg 500 mg, intravenous, at 250 mL/hr, Administer over 60 Minutes, Daily, First dose on Tue07/16/23 at 2227, Indications: Pneumonia, Community AcquiredIndications:Pneumonia, Community Acquired New Bag 07/16/2023 10:38 PM CONCRETE TESTER 500 mg 250 mL/hr benzocaine (HURRICAINE) 20 % mouth spray 1 spray 1 spray, mouth/throat, Once, On Tue07/19/23 at 1415, For 1 dose Given 07/19/2023 3:08 PM CONCRETE TESTER 1 spray benzocaine (HURRICAINE) 20 % mouth spray 1 spray 1 spray, mouth/throat, Once, On Tue07/19/23 at 1600, For 1 dose Given 07/19/2023 3:18 PM CONCRETE TESTER 1 spray bisacodyl EC (DULCOLAX EC) tablet 10 mg 10 mg, oral, Daily PRN, constipation, If no results 24 hours after milk of magnesia, Starting on Tue07/25/23 at 0241, Do not crush, chew, cut, dissolve, open or otherwise manipulate tablet/capsule., Indications: constipationIndications:constipat ion Given 07/27/2023 12:30 PM CONCRETE TESTER 10 mg budesonide-formoteroL (SYMBICORT) 160-4.5 mcg/actuation inhaler 2 puff 2 puff, inhalation, 2 times daily (respiratory care assistant), First dose on Tue07/27/23 at 2000, I /authorizing provider attest that the patient meets the approved [facility] Use Criteria: Yes Given 07/29/2023 8:16 AM CONCRETE TESTER 2 puffs Given 07/28/2023 7:42 PM CONCRETE TESTER 2 puffs Given 07/28/2023 8:08 AM CONCRETE TESTER 2 puffs buPROPion SR (WELLBUTRIN SR) 12 hour tablet 150 mg 150 mg, oral, 2 times daily, First dose on Tue07/17/23 at 0900, Do not crush, chew, cut, dissolve, open or otherwise manipulate tablet/capsule., Indications: Anxiety with DepressionIndications:Anxiety with Depression Given 07/29/2023 9:3 4 AM CONCRETE TESTER 150 mg Given 07/28/2023 8:15 PM CONCRETE TESTER 150 mg Given 07/28/2023 8:32 AM CONCRETE TESTER 150 mg carvediloL (COREG) tablet 3.125 mg 3.125 mg, oral, 2 times daily with meals (bkfst, dinner), First dose on Tue07/20/23 at 0800, Hold if systolic blood pressure less than 90 mm Hg. Given 07/29/2023 9:34 AM CONCRETE TESTER 3.125 mg Given 07/28/2023 4:50 PM CONCRETE TESTER 3.125 mg Given 07/28/2023 8:32 AM CONCRETE TESTER 3.125 mg cefTRIAXone (ROCEPHIN) 1,000 mg/10 mL in sterile water (premix) 1,000 mg 1,000 mg, intravenous, at 600 mL/hr, Administer over 1 Minutes, Daily, First dose on 07/16/23 at 2227, Indications: Pneumonia, Community AcquiredIndications:Pneumonia, Community Acquired Given 07/21/2023 8:13 AM CONCRETE TESTER 1,000 mg 600 mL/hr Given 07/20/2023 7:51 AM CONCRETE TESTER 1,000 mg 600 mL/hr Given 07/19/2023 8:20 AM CONCRETE TESTER 1,000 mg 600 mL/hr dextrose 5% and sodium chloride 0.45% infusion (premix) 100 mL/hr, intravenous, Continuous, Starting on Tue07/18/23 at 0900, For 10 hours Restarted 07/18/2023 4:55 PM CONCRETE TESTER 250 mL/hr 250 mL/hr New Bag 07/18/2023 8:41 AM CONCRETE TESTER 100 mL/hr 100 mL/hr digoxin (LANOXIN) injection 125 mcg 125 mcg, intravenous, Administer over 5 Minutes, Every 24 hours scheduled, First dose on Tue07/20/23 at 0900, Indications: Ventricular Rate Control in Atrial Fibrillation, chronic heart failureIndications:Ventricula r Rate Control in Atrial Fibrillation,chronic heart failure Given 07/20/2023 7:44 AM CONCRETE TESTER 125 mcg digoxin (LANOXIN) injection 500 mcg 500 mcg, intravenous, Administer over 5 Minutes, Once, On Tue07/19/23 at 1000, For 1 dose, Indications: Paroxysmal Atrial FibrillationIndications:Parox ysmal Atrial Fibrillation Given 07/19/2023 9:59 AM CONCRETE TESTER 500 mcg enoxaparin (LOVENOX) syringe 120 mg 120 mg (rounded from 118 mg = 1 mg/kg ? 118 kg), subcutaneous, Every 12 hours scheduled, First dose on Tue07/17/23 at 0149, Indications: Acute Coronary SyndromeIndications:Acute Coronary Syndrome Given 07/17/2023 2:02 AM CONCRETE TESTER 120 mg Left Lower Abdomen enoxaparin (LOVENOX) syringe 40 mg 40 mg, subcutaneous, Daily (for enoxaparin), First dose (after last modification) on Tue07/17/23 at 2100, Dose of Enoxaparin 40 mg sq q 24 hrs adjusted per renal protocol for CrCl=< 30 ml/min (CrCl=29.3 ml/min) (BMI= 58.30 kg/m2) ( Wt = 135.4 kg) Estimated Creatinine Clearance: 29.9 mL/min (A) (by C-G 65 yr and older- minimum SCr 0.8 based on SCr of 1.15 mg/dL (H)). , Indications: Deep Vein Thrombosis PreventionIndications:Deep Vein Thrombosis Prevention Given 07/17/2023 10:07 PM CONCRETE TESTER 40 mg Left Lower Abdomen enoxaparin (LOVENOX) syringe 40 mg 40 mg, subcutaneous, Every 12 hours scheduled, First dose (after last modification) on Tue07/18/23 at 2100, Dose of Enoxaparin 40 mg sq q 24 hrs adjusted per renal protocol for CrCl=< 30 ml/min (CrCl=29.3 ml/min) (BMI= 58.30 kg/m2) ( Wt = 135.4 kg) Estimated Creatinine Clearance: 29.9 mL/min (A) (by C-G 65 yr and older- minimum SCr 0.8 based on SCr of 1.15 mg/dL (H)). , Indications: Deep Vein Thrombosis PreventionIndications:Deep Vein Thrombosis Prevention Given 07/19/2023 8:19 AM CONCRETE TESTER 40 mg Right Lower Abdomen Given 07/18/2023 8:17 PM CONCRETE TESTER 40 mg Le ft Lower Abdomen famotidine (PEPCID) injection 20 mg 20 mg, intravenous, Administer over 2 Minutes, Every 24 hours scheduled, First dose (after last modification) on [place] 07/17/23 at 0900, Dose of Famotidine 20 mg ivp q 24 hrs adjusted per renal protocol for CrCl=< 50 ml/min (CrCl=41.9 ml/min) Estimated Creatinine Clearance: 41.9 mL/min (by C-G 65 yr and older- minimum SCr 0.8 based on SCr of 0.82 mg/dL). , Indications: Prevention of Stress UlcerIndications:Prevention of Stress Ulcer Given 07/19/2023 8:19 AM CONCRETE TESTER 20 mg Given 07/18/2023 8:40 AM CONCRETE TESTER 20 mg Given 07/17/2023 9:06 AM CONCRETE TESTER 20 mg famotidine (PEPCID) tablet 20 mg 20 mg, oral, Daily, First dose on Tue07/20/23 at 0900, This medication, famotidine, was changed from IV route to oral route per protocol. Famotidine adjusted per renal protocol for CrCl 30-50 ml/min (Estimated Creatinine Clearance: 43 mL/min (by C-G 65 yr and older- minimum SCr 0.8 based on SCr of 0.77 mg/dL).) Given 07/29/2023 9:34 AM CONCRETE TESTER 20 mg Given 07/28/2023 8:32 AM CONCRETE TESTER 20 mg Given 07/27/2023 9:43 AM CONCRETE TESTER 20 mg fentaNYL (SUBLIMAZE) preservative free injection 100 mcg 100 mcg, intravenous, Every 1 hour PRN, other, sedation for SOPHIE, Starting on Tue07/19/23 at 1336 Given 07/19/2023 3:18 PM CONCRETE TESTER 50 mcg FLUoxetine (PROzac) capsule 40 mg 40 mg, oral, Daily, First dose on Tue07/17/23 at 0900, Do not crush, chew, cut, dissolve, open or otherwise manipulate tablet/capsule., Indications: Anxiety with Depression, FibromyalgiaIndications:Anxiety with Depression,Fibromyalgia Given 07/29/2023 9:35 AM CONCRETE TESTER 40 mg Given 07/28/2023 8:32 AM CONCRETE TESTER 40 mg Given 07/27/2023 9:43 AM CONCRETE TESTER 40 mg furosemide (LASIX) 10 mg/mL injection 40 mg 40 mg, intravenous, Once, On Tue07/17/23 at 0014, For 1 dose, For IV push: administer doses < 160 mg at a rate of 20 -40 mg/min. Doses >/= 160 mg should be administered no faster than 4 mg/min. Room temperature only Given 07/17/2023 12: 46 AM CONCRETE TESTER 40 mg furosemide (LASIX) 10 mg/mL injection 60 mg 60 mg, intravenous, Once, On [place] 07/21/23 at 1145, For 1 dose, Room temperature only Given 07/21/2023 11:26 AM CONCRETE TESTER 6 0 mg furosemide (LASIX) 10 mg/mL injection 60 mg 60 mg, intravenous, Once, On Tue07/22/23 at 0900, For 1 dose, For IV push: administer doses < 160 mg at a rate of 20 -40 mg/min. Doses >/= 160 mg should be administered no faster than 4 mg/min. Room temperature only Given 07/22/2023 8:5 6 AM CONCRETE TESTER 60 mg furosemide (LASIX) 10 mg/mL injection 60 mg 60 mg, intravenous, Once, On 07/23/23 at 0845, For 1 dose, For IV push: administer doses < 160 mg at a rate of 20 -40 mg/min. Doses >/= 160 mg should be administered no faster than 4 mg/min. Room temperature only Given 07/23/2023 8:5 1 AM CONCRETE TESTER 60 mg furosemide (LASIX) 10 mg/mL injection 60 mg 60 mg, intravenous, Daily, First dose on 07/24/23 at 1215, Room temperature only Given 07/29/2023 9:34 AM CONCRETE TESTER 60 mg Given 07/28/2023 8:31 AM CONCRETE TESTER 60 mg Given 07/27/2023 9:42 AM CONCRETE TESTER 60 mg furosemide (LASIX) tablet 40 mg 40 mg, oral, Daily, First dose on 07/30/23 at 0900 HYDROcodone-acetaminophen (NORCO) 5-325 mg per tablet 1 tablet 1 tablet, oral, Every 4 hours PRN, 2nd line for pain, Starting on 07/17/23 at 0650, Indications: PainIndications:Pain Given 07/27/2023 8:24 PM CONCRETE TESTER 1 tablet Given 07/27/2023 12:30 PM CONCRETE TESTER 1 tablet Given 07/20/2023 2:12 AM CONCRETE TESTER 1 tablet influenza quadrivalent [id number] (FLUZONE HIGH DOSE) 240 mcg/0.7 mL vaccine (HIGH DOSE age 65 years and up) 0.7 mL 0.7 mL, intramuscular, During hospitalization, immunization, Starting on 07/17/23 at 0419, For 1 dose, Indications: influenza vaccinationIndications:influenza vaccination Given 07/29/2023 12:23 PM CONCRETE TESTER 0.7 mL Left Deltoid ipratropium-albuteroL (DUO-NEB) 0.5-2.5 mg/3 mL nebulizer solution 3 mL 3 mL, nebulization, Once (respiratory care assistant), On 07/17/23 at 0055, For 1 dose, Indications: Chronic Obstructive Pulmonary Disease with BronchospasmsIndications:Chronic Obstructive Pulmonary Disease with Bronchospasms Given 07/17/2023 1:13 AM CONCRETE TESTER 3 mL lidocaine viscous (XYLOCAINE) 2 % solution 15 mL 15 mL, mouth/throat, Once, On Tue07/19/23 at 1415, For 1 dose Given 07/19/2023 3:20 PM CONCRETE TESTER 15 mL magnesium hydroxide (MILK OF MAGNESIA) 80 mg/mL (33.3 mg/mL as elemental magnesium) oral suspension 30 mL 30 mL, oral, Daily PRN, constipation, Starting on Tue07/25/23 at 0241 Given 07/25/2023 2:49 AM CONCRETE TESTER 30 mL methylPREDNISolone sodium succinate (SOLU-medrol) preservative free injection 125 mg 125 mg, intravenous, Administer over 3 Minutes, Once, On 07/16/23 at 2224, For 1 dose Given 07/16/2023 10:40 PM CONCRETE TESTER 125 mg miconazole 2 % powder topical, 2 times daily, First dose on Tue07/17/23 at 1000, Apply to affected area: rash, arm, abdomen, other, Laterality: Bilateral Given 07/29/2023 9:40 AM CONCRETE TESTER Given 07/28/2023 8:15 PM CONCRETE TESTER Given 07/28/2023 8:33 AM CONCRETE TESTER midazolam (VERSED) 5 mg/mL preservative free injection 5 mg 5 mg, intravenous, Administer over 2 Minutes, Once, On Tue07/19/23 at 1415, For 1 dose Given 07/19/2023 3:19 PM CONCRETE TESTER 1 mg mineral oil (FLEET MINERAL OIL) enema 133 mL 133 mL (1 enema), rectal, Daily PRN, constipation, if no results 24 hours after bisacodyl, Starting on Tue07/25/23 at 0241, Indications: constipationIndications:constipation ondansetron (ZOFRAN) injection 4 mg 4 mg, intravenous, Administer over 2 Minutes, Once, On 07/16/23 at 2224, For 1 dose Given 07/16/2023 10:42 PM CONCRETE TESTER 4 mg ondansetron (ZOFRAN) injection 4 mg 4 mg, intravenous, Administer over 2 Minutes, Every 4 hours PRN, nausea, vomiting, Starting on 07/17/23 at 0650, Indications: Prevention of Post-Operative Nausea and VomitingIndications:Prevention of Post-Operative Nausea and Vomiting Given 07/24/2023 10:03 AM CONCRETE TESTER 4 mg Given 07/23/2023 2:18 PM CONCRETE TESTER 4 mg Given 07/18/2023 10:59 PM CONCRETE TESTER 4 mg potassium, sodium phosphates (PHOS-NAK) 280-160-250 mg packet 1 packet 1 packet, oral, 3 times daily before meals, First dose on Tue07/27/23 at 0730, For 3 doses, Each packet contains 250 mg elemental phosphorus. Per electrolyte replacement protocol Each packet contains elemental phosphorus 250 mg (8 mmol), potassium 280 mg (7.1 mEq), and sodium 160 mg (6.9 mEq). Given 07/27/2023 6:42 PM CONCRETE TESTER 1 packet Given 07/27/2023 12:30 PM CONCRETE TESTER 1 packet Given 07/27/2023 9:44 AM CONCRETE TESTER 1 packet potassium, sodium phosphates (PHOS-NAK) 280-160-250 mg packet 1 packet 1 packet, oral, 3 times daily before meals, First dose on Tue07/29/23 at 0730, For 3 doses, Phos- Nak 1 packet orally tid X 3 doses today per electrolyte replacement protocol for Phosphorous =2.5 on 07/29/23 Each packet contains elemental phosphorus 250 mg (8 mmol), potassium 280 mg (7.1 mEq), and sodium 160 mg (6.9 mEq). Given 07/29/2023 9:34 AM CONCRETE TESTER 1 packet Given 07/29/2023 6:06 AM CONCRETE TESTER 1 packet psyllium (aspartame) SF (METAMUCIL SF) 3.4 gram packet 1 packet 1 packet, oral, Nightly, First dose (after last modification) on Tue07/18/23 at 2100, Indications: constipationIndications:constipation Given 07/23/2023 8:39 PM CONCRETE TESTER 1 packe t Given 07/19/2023 8:47 PM CONCRETE TESTER 1 packet sacubitriL-valsartan (ENTRESTO) 24-26 mg tablet 1 tablet 1 tablet, oral, 2 times daily, First dose on Tue07/20/23 at 0800, Hold if systolic blood pressure less than 90 mm Hg., Indications: chronic heart failureIndications:chronic heart failure Given 07/29/2023 9:34 AM CONCRETE TESTER 1 t ablet Given 07/28/2023 8:15 PM CONCRETE TESTER 1 tablet Given 07/28/2023 8:31 AM CONCRETE TESTER 1 tablet sodium chloride 0.9% flush 5-10 mL 5-10 mL, intra-catheter, Every 8 hours scheduled, First dose on Tue07/18/23 at 1600, Flush volume based on line type, size, and protocol. Given 07/19/2023 3:45 PM CONCRETE TESTER 10 mL Given 07/19/2023 5:43 AM CONCRETE TESTER 10 mL Given 07/18/2023 8:18 PM CONCRETE TESTER 10 mL sodium chloride 0.9% flush 5-10 mL 5-10 mL, intra-catheter, Every 12 hours scheduled, First dose on Tue07/19/23 at 2100, Flush volume based on line type, size, and protocol. Given 07/29/2023 9:37 AM CONCRETE TESTER 10 mL Given 07/28/2023 8:15 PM CONCRETE TESTER 10 mL Given 07/28/2023 8:32 AM CONCRETE TESTER 10 mL sodium chloride 0.9% flush 5-20 mL 5-20 mL, intra-catheter, As needed, line care, with each use, Starting on Tue07/19/23 at 1425, Flush volume based on line type, size, and protocol. sodium chloride 0.9% infusion 75 mL/hr, intravenous, Continuous, Starting on 07/16/23 at 2224 New Bag 07/16/2023 11:10 PM CONCRETE TESTER 75 mL/hr 75 mL/hr sodium phosphate - potassium phosphate (K-PHOS NEUTRAL) tablet 250 mg 250 mg, oral, 3 times daily with meals, First dose on Tue07/19/23 at 0815, For 3 doses, K-Phos Neutral 250 mg orally tid X 3 doses today per electrolyte replacement protocol for Phosphorous =2.4 on 07/19/23 Each tablet contains elemental phosphorus 250 mg (8 mmol), potassium 45 mg (1.1 mEq), and sodium 298 mg (13 mEq). Given 07/19/2023 5:24 PM CONCRETE TESTER 250 mg Given 07/19/2023 8:19 AM CONCRETE TESTER 250 mg sodium phosphate - potassium phosphate (K-PHOS NEUTRAL) tablet 250 mg 250 mg, oral, 3 times daily, First dose on [facility] 07/21/23 at 0930, For 3 doses, Per electrolyte replacement protocol Each tablet contains elemental phosphorus 250 mg (8 mmol), potassium 45 mg (1.1 mEq), and sodium 298 mg (13 mEq). Given 07/21/2023 8:24 PM CONCRETE TESTER 250 mg Given 07/21/2023 3:10 PM CONCRETE TESTER 250 mg Given 07/21/2023 11:26 AM CONCRETE TESTER 250 mg sodium phosphate - potassium phosphate (K-PHOS NEUTRAL) tablet 250 mg 250 mg, oral, Every 4 hours, First dose on 07/25/23 at 1000, For 3 doses, K-Phos Neutral 250 mg orally tid X 3 doses today per electrolyte replacement protocol for Phosphorous =2.5 on 07/25/23 Each tablet contains elemental phosphorus 250 mg (8 mmol), potassium 45 mg (1.1 mEq), and sodium 298 mg (13 mEq). Given 07/25/2023 5:44 PM CONCRETE TESTER 250 mg Given 07/25/2023 3:17 PM CONCRETE TESTER 250 mg Given 07/25/2023 11:34 AM CONCRETE TESTER 250 mg sodium zirconium cyclosilicate (LOKELMA) packet 5 g 5 g, oral, Once, On 07/17/23 at 0023, For 1 dose, Adjust medication timing to ensure other oral medications are administered at least 2 hours before or 2 hours after sodium zirconium cyclosilicate. Empty packet(s) into a glass with 3 tablespoons (45 mL) of water. Stir and administer immediately. Repeat until no powder remains in glass., Indications: hyperkalemiaIndications:hyperkalemia Given 07/17/2023 12:48 AM CONCRETE TESTER 5 g spironolactone (ALDACTONE) tablet 25 mg 25 mg, oral, Daily, First dose on 07/23/23 at 0845 Given 07/29/2023 9:35 AM CONCRETE TESTER 25 mg Given 07/28/2023 8:32 AM CONCRETE TESTER 25 mg Given 07/27/2023 9:43 AM CONCRETE TESTER 25 mg documented in this encounter Discontinued Medications Medication Sig Discontinue Reason Start Date End Da te cyanocobalamin (Vitamin B-12) 500 mcg tabletIndications:Prev ention of Vitamin B12 Deficiency Take 1/2 tab mond thru frid and skip tue and Therapy completed 05/28/2021 07/17/2023 FLUoxetine (PROzac) 40 mg capsule Take 1 capsule (40 mg total) by mouth daily Therapy completed 03/28/2023 07/17/2023 fluticasone propionate (FLONASE) 50 mcg/actuation nasal spray Administer 2 sprays into each nostril daily Therapy completed 03/28/2023 07/17/2023 furosemide (LASIX) 20 mg tablet Take 1 tablet (20 mg total) by mouth 2 (two) times a day Therapy completed 03/28/2023 07/17/2023 HYDROcodone-acetaminop hen (Maybeury) 5-325 mg per tabletIndications:Pain Take 1 tablet by mouth every 6 hours as needed for pain 03/28/2023 07/17/2023 psyllium (MetamuciL) 0.4 gram capsule 1 capsule (0.4 g total) daily Therapy completed 12/30/2022 07/17/2023 amiodarone (PACERONE) 200 mg tablet Take 1 tablet (200 mg total) by mouth 2 (two) times a day for 8 doses 07/29/2023 07/29/2023 amiodarone (PACERONE) 200 mg tablet Take 1 tablet (200 mg total) by mouth daily 08/02/2023 07/29/2023 apixaban (ELIQUIS) 2.5 mg tabletIndications:VTE Prophylaxis,atrial fibrillation Take 1 tablet (2.5 mg total) by mouth every 12 (twelve) hours 07/29/2023 07/29/2023 carvediloL (COREG) 3.125 mg tablet Take 1 tablet (3.125 mg total) by mouth 2 (two) times a day with meals 07/29/2023 07/29/2023 famotidine (PEPCID) 20 mg tablet Take 1 tablet (20 mg total) by mouth daily 07/30/2023 07/29/2023 FLUoxetine (PROzac) 40 mg capsuleIndications:Anx iety with Depression,Fibromyalgi a Take 1 capsule (40 mg total) by mouth daily 07/30/2023 07/29/2023 furosemide (LASIX) 40 mg tablet Take 1 tablet (40 mg total) by mouth daily 07/30/2023 07/29/2023 miconazole 2 % powder Apply topically 2 (two) times a day 07/29/2023 07/29/2023 potassium, sodium phosphates (PHOS-NAK) 280-160-250 mg powder in packet Take 1 packet by mouth 3 (three) times a day before meals for 1 dose 07/29/2023 07/29/2023 sacubitriL-valsartan (ENTRESTO) 24-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 Take 1 tablet by mouth 2 (two) times a day 07/29/2023 07/29/2023 spironolactone (ALDACTONE) 25 mg tablet Take 1 tablet (25 mg total) by mouth daily 07/30/2023 07/29/2023 cloNIDine (CATAPRES) 0.1 mg tablet TAKE 1 TABLET(0.1 MG) BY MOUTH TWICE DAILY Stop Taking at Discharge 03/28/2023 07/29/2023 irbesartan (AVAPRO) 300 mg tablet TAKE 1 TABLET BY MOUTH EVERY DAY Stop Taking at Discharge 03/28/2023 07/29/2023 loratadine (CLARITIN) 10 mg tablet Take 1 tablet (10 mg total) by mouth daily Stop Taking at Discharge 03/28/2023 07/29/2023 propranolol LA (INDERAL LA) 60 mg 24 hr capsule Take 1 capsule (60 mg total) by mouth daily Stop Taking at Discharge 03/28/2023 07/29/2023 documented as of this encounter Active and Recently Administered Medications Times are shown in [employer]. Scheduled Medication Order 07/27/2023 07/28/2023 07/29/2023 amiodarone (PACERONE) tablet 200 mg 200 mg, oral, 2 times daily, First dose on Tue07/19/23 at 1545, For 14 days 0943 (Given - Provider: Guerda Richards RN)2023 (Given - Provider: Laura Garcia RN) 0832 (Given - Provider: Rufina Santamaria RN)2014 (Given - Provider: Laura Garcia RN) 0935 (Given - Provider: Nan Bansal RN) amiodarone (PACERONE) tablet 200 mg 200 mg, oral, Daily, First dose on Tue08/02/23 at 0900 apixaban (ELIQUIS) tablet 2.5 mg 2.5 mg, oral, Every 12 hours scheduled, First dose (after last modification) on Tue07/20/23 at 2100, Indications: VTE Prophylaxis, atrial fibrillation 0943 (Given - Provider: Guerda Richards RN)2023 (Given - Provider: Laura Garcia RN) 08 (Given - Provider: Rufina Santamaria, BREA)2014 (Given - Provider: Laura Garcia RN) 0934 (Given - Provider: Nan Bansal, BREA) atorvastatin (LIPITOR) tablet 10 mg 10 mg, oral, Daily, First dose on Tue07/27/23 at 1530 1841 (Given - Provider: Guerda Richards RN) 0832 (Given - Provider: Rufina Santamaria, BREA) 0935 (Given - Provider: Nan Bansal, BREA) budesonide-formoteroL (SYMBICORT) 160-4.5 mcg/actuation inhaler 2 puff 2 puff, inhalation, 2 times daily (respiratory care assistant), First dose on Tue07/27/23 at 2000, I /authorizing provider attest that the patient meets the approved [facility] Use Criteria: Yes 1956 (Given - Provider: Solitario Cintron, JOHN) 807 (Given - Provider: Mag De Anda, JOHN)1941 (Given - Provider: Solitario Cintron, JOHN) 08 (Given - Provider: Anitha Lynn, JOHN) buPROPion SR (WELLBUTRIN SR) 12 hour tablet 150 mg 150 mg, oral, 2 times daily, First dose on Tue07/17/23 at 0900, Do not crush, chew, cut, dissolve, open or otherwise manipulate tablet/capsule., Indications: Anxiety with Depression 942 (Given - Provider: Guerda Richards RN)2023 (Given - Provider: Laura Garcia RN) 08 (Given - Provider: Rufina Santamaria, BREA)2014 (Given - Provider: Laura Garcia RN) 0934 (Given - Provider: Nan Bansal, BREA) carvediloL (COREG) tablet 3.125 mg 3.125 mg, oral, 2 times daily with meals (bkfst, dinner), First dose on Tue07/20/23 at 0800, Hold if systolic blood pressure less than 90 mm Hg. 0943 (Given - Provider: Guerda Richards RN)1841 (Given - Provider: Guerda Richards RN) 0832 (Given - Provider: Rufina Santamaria, BREA)1650 (Given - Provider: Rufina Santamaria, BREA) 0934 (Given - Provider: Nan Bansal, BREA) famotidine (PEPCID) tablet 20 mg 20 mg, oral, Daily, First dose on 07/20/23 at 0900, This medication, famotidine, was changed from IV route to oral route per protocol. Famotidine adjusted per renal protocol for CrCl 30-50 ml/min (Estimated Creatinine Clearance: 43 mL/min (by C-G 65 yr and older- minimum SCr 0.8 based on SCr of 0.77 mg/dL).) 0943 (Given - Provider: Guerda Richards RN) 0832 (Given - Provider: Rufina Santamaria RN) 0934 (Given - Provider: Nan Bansal, BREA) FLUoxetine (PROzac) capsule 40 mg 40 mg, oral, Daily, First dose on 07/17/23 at 0900, Do not crush, chew, cut, dissolve, open or otherwise manipulate tablet/capsule., Indications: Anxiety with Depression, Fibromyalgia 0943 (Given - Provider: Guerda Richards RN) 0832 (Given - Provider: Rufina Santamaria RN) 0935 (Given - Provider: Nan Bansal, BREA) furosemide (LASIX) 10 mg/mL injection 60 mg (CANCELED) 60 mg, intravenous, Daily, First dose on 07/24/23 at 1215, Room temperature only 0942 (Given - Provider: Guerda Richards RN) 0831 (Given - Provider: Rufina Santamaria, BREA) 0934 (Given - Provider: Nan Bansal, BREA) furosemide (LASIX) tablet 40 mg 40 mg, oral, Daily, First dose on 07/30/23 at 0900 miconazole 2 % powder topical, 2 times daily, First dose on 07/17/23 at 1000, Apply to affected area: rash, arm, abdomen, other, Laterality: Bilateral 0944 (Given - Provider: Guerda Richards RN)2023 (Given - Provider: Laura Garcia RN) 0833 (Given - Provider: Rufina Santamaria, BREA)2014 (Given - Provider: Laura Garcia RN) 0940 (Given - Provider: Nan Bansal, BREA) potassium, sodium phosphates (PHOS-NAK) 280-160-250 mg packet 1 packet (COMPLETED) 1 packet, oral, 3 times daily before meals, First dose on Tue07/27/23 at 0730, For 3 doses, Each packet contains 250 mg elemental phosphorus. Per electrolyte replacement protocol Each packet contains elemental phosphorus 250 mg (8 mmol), potassium 280 mg (7.1 mEq), and sodium 160 mg (6.9 mEq). 0944 (Given - Provider: Guerda Richards RN)1230 (Given - Provider: Guerda Richards RN)1842 (Given - Provider: Guerda Richards RN) potassium, sodium phosphates (PHOS-NAK) 280-160-250 mg packet 1 packet 1 packet, oral, 3 times daily before meals, First dose on Tue07/29/23 at 0730, For 3 doses, Phos- Nak 1 packet orally tid X 3 doses today per electrolyte replacement protocol for Phosphorous =2.5 on 07/29/23 Each packet contains elemental phosphorus 250 mg (8 mmol), potassium 280 mg (7.1 mEq), and sodium 160 mg (6.9 mEq). 0606 (Given - Provider: Laura Garcia RN)0934 (Given - Provider: Nan Bansal, BREA)1730 (Due) psyllium (aspartame) SF (METAMUCIL SF) 3.4 gram packet 1 packet 1 packet, oral, Nightly, First dose (after last modification) on Tue07/18/23 at 2100, Indications: constipation 2028 (Not Given - Provider: Laura Garica RN - Reason: Patient/family refused - Comment: pt had BM today) 2017 (Not Given - Provider: Laura Garcia RN - Reason: Patient/family refused) sacubitriL-valsartan (ENTRESTO) 24-26 mg tablet 1 tablet 1 tablet, oral, 2 times daily, First dose on Tue07/20/23 at 0800, Hold if systolic blood pressure less than 90 mm Hg., Indications: chronic heart failure 0944 (Given - Provider: Guerda Richards, BREA)2023 (Given - Provider: Laura Garcia RN) 08 (Given - Provider: Rufina Santamaria, RN)2014 (Given - Provider: Laura Garcia RN) 0934 (Given - Provider: Nan Bansal, BREA) sodium chloride 0.9% flush 5-10 mL 5-10 mL, intra-catheter, Every 12 hours scheduled, First dose on Tue07/19/23 at 2100, Flush volume based on line type, size, and protocol. 0944 (Given - Provider: Guerda Richards RN)2028 (Given - Provider: Laura Garcia RN) 0832 (Given - Provider: Rufina Santamaria, BREA)2014 (Given - Provider: Laura Garcia RN) 0937 (Given - Provider: Nan Bansal, BREA) spironolactone (ALDACTONE) tablet 25 mg 25 mg, oral, Daily, First dose on Tue07/23/23 at 0845 0943 (Given - Provider: Guerda Richards, BREA) 0832 (Given - Provider: Rufina Santamaria, BREA) 0935 (Given - Provider: Nan Bansal, BREA) PRN Medication Order 07/27/2023 07/28/2023 07/29/2023 acetaminophen (TYLENOL) tablet 650 mg 650 mg, oral, Every 4 hours PRN, 1st line for pain, fever, Starting on Tue07/17/23 at 0650 0350 (Given - Provider: Bruna Hassan, BREA) 0327 (Given - Provider: Laura Garcia RN)1536 (Given - Provider: Rufina Santamaria, BREA) 0340 (Given - Provider: Laura Garcia RN) albuterol 2.5 mg /3 mL (0.083 %) nebulizer solution 2.5 mg 2.5 mg, nebulization, Every 4 hours PRN (respiratory care assistant), wheezing, shortness of breath, Starting on 07/18/23 at 1438 bisacodyl EC (DULCOLAX EC) tablet 10 mg 10 mg, oral, Daily PRN, constipation, If no results 24 hours after milk of magnesia, Starting on Tue07/25/23 at 0241, Do not crush, chew, cut, dissolve, open or otherwise manipulate tablet/capsule., Indications: constipation 1230 (Given - Provider: Guerda Richards, RN) HYDROcodone-acetaminoph en (NORCO) 5-325 mg per tablet 1 tablet 1 tablet, oral, Every 4 hours PRN, 2nd line for pain, Starting on Tue07/17/23 at 0650, Indications: Pain 1230 (Given - Provider: Guerda Richards, RN)2023 (Given - Provider: Laura Garcia RN) influenza quadrivalent [id number] (FLUZONE HIGH DOSE) 240 mcg/0.7 mL vaccine (HIGH DOSE age 65 years and up) 0.7 mL (COMPLETED) 0.7 mL, intramuscular, During hospitalization, immunization, Starting on Tue07/17/23 at 0419, For 1 dose, Indications: influenza vaccination 1223 (Given - Provider: Nan Bansal, BREA) magnesium hydroxide (MILK OF MAGNESIA) 80 mg/mL (33.3 mg/mL as elemental magnesium) oral suspension 30 mL 30 mL, oral, Daily PRN, constipation, Starting on Tue07/25/23 at 0241 mineral oil (FLEET MINERAL OIL) enema 133 mL 133 mL (1 enema), rectal, Daily PRN, constipation, if no results 24 hours after bisacodyl, Starting on Tue07/25/23 at 0241, Indications: constipation ondansetron (ZOFRAN) injection 4 mg 4 mg, intravenous, Administer over 2 Minutes, Every 4 hours PRN, nausea, vomiting, Starting on Tue07/17/23 at 0650, Indications: Prevention of Post-Operative Nausea and Vomiting sodium chloride 0.9% flush 5-20 mL 5-20 mL, intra-catheter, As needed, line care, with each use, Starting on Tue07/19/23 at 1425, Flush volume based on line type, size, and protocol. documented in this encounter Orders Medications Ordered That Fitz ht Not Have Been Administered Count Last Ordered Date First Ordered Date furosemide (LASIX) tablet 40 mg 1 3 mineral oil (FLEET MINERAL O IL) enema 133 mL 1 07/25/2023 amiodarone (PACERONE) tablet 200 mg 1 07/19 apixaban (ELIQUIS) tablet 2.5 mg 1 07/19/20 sodium chloride 0.9% flush 5-20 mL 1 2022 bivalirudin (ANGIOMAX) bolus from bag 1 fentaNYL (SUBLIMAZE) preserv ative free injection 1 07/18/2023 lidocaine PF (XYLOCAINE) 10 mg/mL (1 %) preservative free injection 1 07/18/2023 midazolam (VERSED) 1 mg/mL p reservative free injection 1 07/18/2023 nitroglycerin in dextrose 5% 50 mg/250 mL (200 mcg/mL) infusion (premix) 1 07/18/2023 sodium chloride 0.9% flush 5-10 mL 1 2022 sodium chloride 0.9% infusion 1 07/18/2023 enoxaparin (LOVENOX) syringe 40 mg 1 2022 famotidine (PEPCID) injection 20 mg 1 07/17 nitroglycerin (NITRO-BID) 2 % ointment 0.5 inch 1 07/17/2023 ondansetron (ZOFRAN) injection 4 mg 1 07/17 psyllium (aspartame) SF (MET AMUCIL SF) 3.4 gram packet 1 packet 1 07/17/2023 ipratropium-albuteroL (DUO-N EB) 0.5-2.5 mg/3 mL nebulizer solution 3 mL 1 07/16/2023 Imaging Orders Without Results Count Last Order ed Date First Ordered Date PULSE OXIMETRY STUDY 1 07/22/2023 EKG Orders Without Results Count Last Ordered D ate First Ordered Date ECG 12-LEAD 2 07/18/2023 07/16/2023 Diet Count Last Ordered Date First Orde red Date ADULT DISCHARGE DIET 1 07/29/2023 Nursing Count Last Ordered Date First Orde red Date FOLLOW UP WITH ESTABLISHED PROVIDER 1 07/29 VITAL SIGNS 1 07/19/2023 WEIGH PATIENT 2 07/17/2023 Consult Count Last Ordered Date First Orde red Date IP CONSULT TO CARDIOLOGY 1 07/17/2023 Isolation Count Last Ordered Date First Orde red Date INITIATE DROPLET ISOLATION 1 07/16/2023 Admission Count Last Ordered Date First Orde red Date ADMIT TO INPATIENT 1 07/17/2023 Transfer Count Last Ordered Date First Orde red Date TRANSFER PATIENT TO NEW UNIT 2 07/20/2023 07/18/2023 Discharge Count Last Ordered Date First Orde red Date DISCHARGE PATIENT 1 07/29/2023 CORE MEASURES Count Last Ordered Date First Ord ered Date REASON FOR NO VTE PROPHYLAXIS AT ADMISSION 2 07/18/2023 07/17/2023 Case Request Count Last Ordered Date First Orde red Date CASE REQUEST GRAPE PRUNER 1 07/18/2023 documented in this encounter Additional Health Concerns Infection Onset Date Last Indicated Resolved Time COVID: Suspected 07/16/2023 07/16/2023 07/16/2023 11:02 PM [employer] documented as of this encounter Care Teams Photog[employer]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
--- OUTSIDE RECORDS SUMMARY | 2024-08-13 05:22 | XMS_ITS | Encounter Summary ---
Author Organization [facility] Address [address] [address] Care Team Providers Care Circle Edger Name Role Phone Tristan Rivers MD Primary Care Provider [phone] Encounter Details Date Type Department Care Team (Late st Contact Info) Description 03/28/2023 1:00 PM CDT Office Visit [facility] Primary Care at [address] [id number] Tristan Rivers MD [address] [place] [address] Benign hypertension (Primary Dx); Chronic stasis dermatitis; IGT (impaired glucose tolerance); Chronic pain syndrome; Recurrent major depressive disorder, in partial remission (HCC); Mild persistent asthma without complication; Class 3 severe obesity due to excess calories with serious comorbidity and body mass index (BMI) of 50.0 to 59.9 in adult (HCC); Hypertensive heart disease with chronic combined systolic and diastolic congestive heart failure (HCC); Acquired hypothyroidism; Benign essential tremor Social History Tobacco Use Types Packs/Day Years [...] on file Legal 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 Gender Identity Female 09/15/2022 2:42 PM OXYGRAPH OPERATOR Sexual Orientation Straight 09/15/2022 2: 42 PM OXYGRAPH OPERATOR documented as of this encounter Last Filed Vital Signs Vital Sign Reading Time Taken Comments Blood Pressure 124/74 03/28/2023 12:40 PM CDT Pulse 65 03/28/2023 12:40 PM CDT Temperature 37 ??C (98.6 ??F) 03/28/2023 12:40 PM CDT Respiratory Rate - - Oxygen Saturation 94% 03/28/2023 12:40 PM CDT Inhaled Oxygen Concentration - - Weight 131.1 kg (289 lb) 03/28/2023 12:40 PM CDT Height 157.5 cm (5' 2 ) 03/28/2023 12:40 PM CDT Body Mass Index 52.86 03/28/2023 12:40 PM CDT documented in this encounter Ordered Prescriptions Prescription Sig Dispense Quantity Refills Last Filled Start Date End Date fluticasone propion-salmeteroL (Advair Diskus) 250-50 mcg/dose diskus inhaler Inhale 1 puff 2 (two) times a day Rinse mouth with water after use to reduce aftertaste and incidence of candidiasis. Do not swallow. 3 each 3 03/28/2023 atorvastatin (LIPITOR) 10 mg tablet TAKE 1/2 TABLET BY MOUTH EVERY DAY 45 tablet 3 03/28/2023 albuterol HFA (ProAir HFA) 90 mcg/actuation inhaler Inhale 2 puffs every 4 (four) hours as needed for shortness of breath As needed for wheezing 3 each 3 03/28/2023 propranolol LA (INDERAL LA) 60 mg 24 hr capsule Take 1 capsule (60 mg total) by mouth daily 90 capsule 3 03/28/2023 3 loratadine (CLARITIN) 10 mg tablet Take 1 tablet (10 mg total) by mouth daily 90 tablet 3 03/28/2023 3 irbesartan (AVAPRO) 300 mg tablet TAKE 1 TABLET BY MOUTH EVERY DAY 90 tablet 3 03/28/2023 3 HYDROcodone-acetam inophen ([place]) 5-325 mg per tabletIndications: Pain Take 1 tablet by mouth every 6 hours as needed for pain 40 tablet 03/28/2023 3 furosemide (LASIX) 20 mg tablet Take 1 tablet (20 mg total) by mouth 2 (two) times a day 180 tablet 3 03/28/2023 3 fluticasone propionate (FLONASE) 50 mcg/actuation nasal spray Administer 2 sprays into each nostril daily 48 g 3 03/28/2023 3 FLUoxetine (PROzac) 40 mg capsule Take 1 capsule (40 mg total) by mouth daily 90 capsule 3 03/28/2023 3 cloNIDine (CATAPRES) 0.1 mg tablet TAKE 1 TABLET(0.1 MG) BY MOUTH TWICE DAILY 180 tablet 3 03/28/2023 3 buPROPion SR (ZYBAN) 150 mg 12 hr tablet Take 1 tablet (150 mg total) by mouth 2 (two) times a day 180 tablet 3 03/28/2023 4 documented in this encounter Progress Notes * Tristan Rivers MD - 03/28/2023 1:00 PM CDT Images from the original note were not included. Subjective/Objective Patient ID: Lupis Juarez is a 77 y.o. female. Chief Complaint No chief complaint on file. Diagnoses and all orders for this visit: Benign hypertension (Primary) Assessment & Plan: Stable, well controlled; blood pressure at goal Continue clonidine 0.1 mg b.i.d., furosemide 20 mg b.i.d., irbesartan 300 mg daily Chronic stasis dermatitis Assessment & Plan: Stable, no evidence of infection; continues to have thickening and flaking of skin in bilateral lower extremities; encouraged continued use of aggressive hydration to reduce risk of skin damage Continue furosemide 20 mg b.i.d. IGT (impaired glucose tolerance) Assessment & Plan: Stable, well controlled last A1c at goal Continue to encourage low-carbohydrate diet Chronic pain syndrome Assessment & Plan: Stable, generally controlled though significant pain limits patient's ability to ambulate; using wheelchair for mobility Continue hydrocodone 5 mg q.6 hours p.r.n.; patient reports improvement in quality of life as well as ability to perform some activities of daily living Recurrent major depressive disorder, in partial remission (HCC) Assessment & Plan: Stable, well controlled; patient generally in good mood Continue Zyban 150 mg b.i.d., fluoxetine 40 mg daily Mild persistent asthma without complication Assessment & Plan: Stable, well controlled; no significant dyspnea Continue Advair 1 puff b.i.d. Class 3 severe obesity due to excess calories with serious comorbidity and body mass index (BMI) of50.0 to 59.9 in adult (HCC) Assessment & Plan: Continues to have elevated BMI; patient is not able to exercise due to limitations of chronic pain;encouraged continue to work on low-calorie diet through limiting caloric intake through portion control as well as limiting high-calorie foods Hypertensive heart disease with chronic combined systolic and diastolic congestive heart failure (HCC) Assessment & Plan: Stable, has significant peripheral edema; unclear if venous stasis verses cardiac in nature Acquired hypothyroidism Assessment & Plan: Stable well controlled, TSH at goal; continue to monitor closely Benign essential tremor Assessment & Plan: Not well controlled worsening; patient reports symptoms worsen her ability to type, writing letters; currently able to eat okay Start propranolol 60 mg daily; follow-up to determine response to therapy Other orders - albuterol HFA (ProAir HFA) 90 mcg/actuation inhaler; Inhale 2 puffs every 4 (four) hours as needed for shortness of breath As needed for wheezing - atorvastatin (LIPITOR) 10 mg tablet; TAKE 1/2 TABLET BY MOUTH EVERY DAY - buPROPion SR (ZYBAN) 150 mg 12 hr tablet; Take 1 tablet (150 mg total) by mouth 2 (two) times a day - cloNIDine (CATAPRES) 0.1 mg tablet; TAKE 1 TABLET(0.1 MG) BY MOUTH TWICE DAILY - FLUoxetine (PROzac) 40 mg capsule; Take 1 capsule (40 mg total) by mouth daily - fluticasone propion-salmeteroL (Advair Diskus) 250-50 mcg/dose diskus inhaler; Inhale 1 puff 2 (two) times a day Rinse mouth with water after use to reduce aftertaste and incidence of candidiasis. Do not swallow. - fluticasone propionate (FLONASE) 50 mcg/actuation nasal spray; Administer 2 sprays into each nostril daily - furosemide (LASIX) 20 mg tablet; Take 1 tablet (20 mg total) by mouth 2 (two) times a day - HYDROcodone-acetaminophen ([place]) 5-325 mg per tablet; Take 1 tablet by mouth every 6 hours as needed for pain - irbesartan (AVAPRO) 300 mg tablet; TAKE 1 TABLET BY MOUTH EVERY DAY - loratadine (CLARITIN) 10 mg tablet; Take 1 tablet (10 mg total) by mouth daily - propranolol LA (INDERAL LA) 60 mg 24 hr capsule; Take 1 capsule (60 mg total) by mouth daily HPI HPI Patient is a 77 year old female, presenting for management of chronic medical conditions. TSH WNL Tremor: has some worsening of tremors; more prominent and presenint -impacts typing Upset stomach: -had stomach crampis with metamucil -has stopped metamucil, but still having some stomach cramp - Prefers to wait on colonoscopy Return in about 6 months (around 09/28/2023). BP 124/74 (BP Location: Right arm, Patient Position: Sitting) Pulse 65 Temp 37 ??C (98.6 ??F) (Temporal) Ht 157.5 cm (5' 2 ) Wt 131.1 kg (289 lb) SpO2 94% BMI 52.86 kg/m?? Current Outpatient Medications Medication Sig Dispense Refill cyanocobalamin (Vitamin B-12) 500 mcg tablet Take 1/2 tab mond thru and skip tue and 45 tablet 3 psyllium (MetamuciL) 0.4 gram capsule 1 capsule (0.4 g total) daily albuterol HFA (ProAir HFA) 90 mcg/actuation inhaler [...] BY MOUTH TWICE DAILY 180 tablet 3 FLUoxetine (PROzac) 40 mg capsule Take 1 capsule (40 mg total) by mouth daily 90 capsule 3 fluticasone propion-salmeteroL (Advair Diskus) 250-50 mcg/dose diskus inhaler Inhale 1 puff 2 (two)times a day Rinse mouth with water after use to reduce aftertaste and incidence of candidiasis. Do not swallow. 3 each 3 fluticasone propionate (FLONASE) 50 mcg/actuation nasal spray Administer 2 sprays into each nostrildaily 48 g 3 furosemide (LASIX) 20 mg tablet Take 1 tablet (20 mg total) by mouth 2 (two) times a day 180 tablet3 HYDROcodone-acetaminophen ([place]) 5-325 mg per tablet Take 1 tablet by mouth every 6 hours as needed for pain 40 tablet 0 irbesartan (AVAPRO) 300 mg tablet TAKE 1 TABLET BY MOUTH EVERY DAY 90 tablet 3 loratadine (CLARITIN) 10 mg tablet Take 1 tablet (10 mg total) by mouth daily 90 tablet 3 propranolol LA (INDERAL LA) 60 mg 24 hr capsule Take 1 capsule (60 mg total) by mouth daily 90 capsule 3 No current facility-administered medications for this visit. Allergies as of 03/28/2023 - Reviewed 03/28/2023 Allergen Reaction Noted Quinapril Other (See comments) Review of Systems Constitutional: Negative for activity change, chills and fever. HENT: Negative for sore throat. Respiratory: Negative for cough and shortness of breath. Gastrointestinal: Negative for abdominal pain, constipation, diarrhea, nausea and vomiting. Musculoskeletal: Negative for arthralgias, gait problem and myalgias. Neurological: Positive for tremors. Negative for weakness. Psychiatric/Behavioral: Negative for dysphoric mood. The patient is not nervous/anxious. Physical Exam Constitutional: Appearance: Normal appearance. HENT: Head: Normocephalic and atraumatic. Cardiovascular: Rate and Rhythm: Normal rate and regular rhythm. Pulses: Normal pulses. Heart sounds: Normal heart sounds. Comments: Venous stasis; thickening of skin, flaking skin Pulmonary: Effort: Pulmonary effort is normal. Breath [...] oriented to person, place, and time. Motor: Weakness and tremor present. No atrophy or abnormal muscle tone. Comments: Cannot walk Psychiatric: Mood and Affect: Mood normal. Behavior: Behavior normal. Thought Content: Thought content normal. Procedures Tristan Rivers MD documented in this encounter Miscellaneous Notes * Assessment & Plan Note - Tristan Rivers MD - 03/28/2023 4:55 PM CDT Associated Problem(s): Benign essential tremor Not well controlled worsening; patient reports symptoms worsen her ability to type, writing letters; currently able to eat okay Start propranolol 60 mg daily; follow-up to determine response to therapy * Assessment & Plan Note - Tristan Rivers MD - 03/28/2023 4:55 PM CDT Associated Problem(s): Acquired hypothyroidism Stable well controlled, TSH at goal; continue to monitor closely * Assessment & Plan Note - Tristan Rivers MD - 03/28/2023 4:55 PM CDT Associated Problem(s): Hypertensive heart disease with congestive heart failure (HCC) (Deleted) Stable, has significant peripheral edema; unclear if venous stasis verses cardiac in nature * Assessment & Plan Note - Tristan Rivers MD - 03/28/2023 4:55 PM CDT Associated Problem(s): Class 3 severe obesity due to excess calories with serious comorbidity and body mass index (BMI) of 40.0 to 44.9 in adult (HCC) Continues to have elevated BMI; patient is not able to exercise due to limitations of chronic pain;encouraged continue to work on low-calorie diet through limiting caloric intake through portion control as well as limiting high-calorie foods * Assessment & Plan Note - Tristan Rivers MD - 03/28/2023 4:54 PM CDT Associated Problem(s): Recurrent major depressive disorder, in partial remission (HCC) Stable, well controlled; patient generally in good mood Continue Zyban 150 mg b.i.d., fluoxetine 40 mg daily * Assessment & Plan Note - Tristan Rivers MD - 03/28/2023 4:54 PM CDT Associated Problem(s): Mild persistent asthma without complication Stable, well controlled; no significant dyspnea Continue Advair 1 puff b.i.d. * Assessment & Plan Note - Tristan Rivers MD - 03/28/2023 4:54 PM CDT Associated Problem(s): Chronic pain syndrome Stable, generally controlled though significant pain limits patient's ability to ambulate; using wheelchair for mobility Continue hydrocodone 5 mg q.6 hours p.r.n.; patient reports improvement in quality of life as well as ability to perform some activities of daily living * Assessment & Plan Note - Tristan Rivers MD - 03/28/2023 4:53 PM CDT Associated Problem(s): IGT (impaired glucose tolerance) Stable, well controlled last A1c at goal Continue to encourage low-carbohydrate diet * Assessment & Plan Note - Tristan Rivers MD - 03/28/2023 4:53 PM CDT Associated Problem(s): Chronic stasis dermatitis Stable, no evidence of infection; continues to have thickening and flaking of skin in bilateral lower extremities; encouraged continued use of aggressive hydration to reduce risk of skin damage Continue furosemide 20 mg b.i.d. * Assessment & Plan Note - Tristan Rivers MD - 03/28/2023 4:52 PM CDT Associated Problem(s): Benign hypertension Stable, well controlled; blood pressure at goal Continue clonidine 0.1 mg b.i.d., furosemide 20 mg b.i.d., irbesartan 300 mg daily * Assessment & Plan Note - Tristan Rivers MD - 03/28/2023 1:00 PM CDT Associated Problem(s): Takotsubo cardiomyopathy >>ASSESSMENT AND PLAN FOR HYPERTENSIVE HEART DISEASE WITH CONGESTIVE HEART FAILURE (HCC) WRITTEN ON 03/28/2023 4:55 PM BY TRISTAN RIVERS MD Stable, has significant peripheral edema; unclear if venous stasis verses cardiac in nature documented in this encounter Plan of Treatment Not on file documented as of this encounter Visit Diagnoses Diagnosis Benign hypertension- Primary Essential hypertension, benign Chronic stasis dermatitis IGT (impaired glucose tolerance) Impaired glucose tolerance test Chronic pain syndrome Recurrent major depressive disorder, in partial remission (HCC) Mild persistent asthma without complication Class 3 severe obesity due to excess calories with serious comorbidity and body mass index (BMI) of 50.0 to 59.9 in adult (HCC) Hypertensive heart disease with chronic combined systolic and diastolic congestive heart failure (HCC) Acquired hypothyroidism Unspecified hypothyroidism Benign essential tremor Essential and other specified forms of tremor documented in this encounter Discontinued Medications Medication Sig Discontinue Reason Start Date End Da te HYDROcodone-acetaminop hen ([place]) 5-325 mg per tabletIndications:Pain Take 1 tablet by mouth every 6 hours as needed for pain Reorder 03/08/2022 03/28/2023 FLUoxetine (PROzac) 40 mg capsule Take 1 capsule (40 mg total) by mouth daily Reorder 06/11/2022 03/28/2023 furosemide (LASIX) 20 mg tablet Take 1 tablet (20 mg total) by mouth 2 (two) times a day Reorder 06/11/2022 03/28/2023 fluticasone propion-salmeteroL (Advair Diskus) 250-50 mcg/dose diskus inhaler Inhale 1 puff 2 (two) times a day Rinse mouth with water after use to reduce aftertaste and incidence of candidiasis. Do not swallow. Reorder 07/02/2022 03/28/2023 atorvastatin (LIPITOR) 10 mg tablet TAKE 1/2 TABLET BY MOUTH EVERY DAY Reorder 07/29/2022 03/28/2023 buPROPion SR (ZYBAN) 150 mg 12 hr tablet TAKE 1 TABLET(150 MG) BY MOUTH TWICE DAILY Reorder 08/04/2022 03/28/2023 irbesartan (AVAPRO) 300 mg tablet TAKE 1 TABLET BY MOUTH EVERY DAY Reorder 08/11/2022 03/28/2023 cloNIDine (CATAPRES) 0.1 mg tablet TAKE 1 TABLET(0.1 MG) BY MOUTH TWICE DAILY Reorder 09/20/2022 03/28/2023 albuterol HFA (ProAir HFA) 90 mcg/actuation inhaler Inhale 2 puffs every 4 (four) hours as needed for shortness of breath As needed for wheezing Reorder 09/20/2022 03/28/2023 loratadine (CLARITIN) 10 mg tablet TAKE 1 TABLET BY MOUTH DAILY Reorder 12/14/2022 03/28/2023 fluticasone propionate (FLONASE) 50 mcg/actuation nasal spray SHAKE LIQUID AND USE 2 SPRAYS IN EACH NOSTRIL DAILY Reorder 12/15/2022 03/28/2023 documented as of this encounter Historical Medications * This list may reflect changes made after this encounter. psyllium (MetamuciL) 0.4 gram capsule 1 capsule (0.4 g total) daily 12/30/2022 07/17/2023 added in this encounter Care Teams Circle Edger Relationship Specialty Start Date End Date [place]istan [place] [address] PCP - General Family Medicine 03/15/22 documented as of this encounter
--- OUTSIDE RECORDS SUMMARY | 2024-08-13 05:22 | XMS_ITS | Encounter Summary ---
Author Organization [facility] Healthcare Address [address] [place] [address] Care Team Providers Care Matcher [employer] Name Role Phone Tristan Watson MD Primary Care Provider [phone] Reason for Visit * Reason Comments Vomiting Pt c/o nausea vomiti ng , diarrhea * Auth/Cert (Routine) Specialty Diagnoses / Procedures Referred By Contac t Referred To Contact Diagnoses Cystitis Elevated troponin Vomiting and diarrhea Procedures na Referral ID Status Reason Start Date Expiration Date Visits Re quested Visits Authorized [id number] 1 1 Encounter Details Date Type Department Care Team (Late st Contact Info) Description 07/18/2023 2:55 PM ENVIRONMENTAL PROTECTION GEOLOGIST - 07/18/2023 4:00 PM ENVIRONMENTAL PROTECTION GEOLOGIST Surgery [facility] Cardiac Catheterization [address] [place] [address] John Dominguez MD [address] [place] [id number] LEFT HEART CATHETERIZATION WITH CORONARY ANGIOGRAPHY AND WITH OR WITHOUT LEFT VENTRICULOGRAM [id number] Surgery Details Date/Time Status Location OR Service Patient Class Case Class Case Type Trauma Case? 07/18/2023 2:55 PM Posted [facility] CARDIAC RIB MATCHER AND FITTER CCL 02 Cardiovascular Inpatient Time Sensitive - 1 Week Panel 1 Procedure LRB Anes Op Region Wound Class Comments LEFT HEART CATHETERIZATION W ITH CORONARY ANGIOGRAPHY AND WITH OR WITHOUT LEFT VENTRICULOGRAM [id number] N/A Conscious Sedation Surgeon Surgeon Role Service Panel Roly Husain MD Cardiovascular 1 John Dominguez MD Primary Cardiovascular 1 documented in this [...] on file Legal Sex Female 11:52 PM ENVIRONMENTAL PROTECTION GEOLOGIST Gender Identity Female 09/15/2022 2:42 PM ENVIRONMENTAL PROTECTION GEOLOGIST Sexual Orientation Straight 09/15/2022 2: 42 PM ENVIRONMENTAL PROTECTION GEOLOGIST documented as of this encounter Last Filed Vital Signs Vital Sign Reading Time Taken Comments Blood Pressure 111/87 07/18/2023 3:14 PM ENVIRONMENTAL PROTECTION GEOLOGIST Pulse 90 07/18/2023 3:14 PM ENVIRONMENTAL PROTECTION GEOLOGIST Temperature 35.9 ??C (96.7 ??F) 07/18/2023 12:[address] Respiratory Rate 22 07/18/2023 3:14 PM ENVIRONMENTAL PROTECTION GEOLOGIST Oxygen Saturation 91% 07/18/2023 3:14 PM ENVIRONMENTAL PROTECTION GEOLOGIST Inhaled Oxygen Concentration - - Weight 135.2 kg (298 lb) 07/18/2023 9:00 AM ENVIRONMENTAL PROTECTION GEOLOGIST Height 152.4 cm (5') 07/18/2023 9:00 AM ENVIRONMENTAL PROTECTION GEOLOGIST Body Mass Index 56.75 07/18/2023 9:00 AM ENVIRONMENTAL PROTECTION GEOLOGIST documented in this encounter Discharge Summaries * Krzysztof Sarah MD - 07/29/2023 12:06 PM CST Inpatient Discharge Summary BRIEF OVERVIEW Admitting Provider: Roly Husain MD Discharge Provider: Krzysztof Sarah MD Primary Care Physician at Discharge: Tristan Watson MD [phone] Admission Date: 07/16/2023 Discharge Date: 07/29/2023 [facility] Problems/Diagnoses: Acute hypoxic respiratory failure Troponin elevation [...] in the bed, appears comfortable in a shelter facility placement planned 07/28 patient lying in [...] ANGIOGRAPHY AND WITH OR WITHOUT LEFT VENTRICULOGRAM [id number] Other Procedures: Pertinent Test Results: Discharge Details [...] Additional resources are available online from the [place] [employer] at www.heart.org/en/healthy-living/healthy-eating Oral nutritional supplement 2 - 3 x daily until intakes consistently adequate. If poor intakes and/or unintended weight loss occur on discharge follow up with primary care physician. Call [facility] Dietitian's office at [phone] for questions about your diet. If interested in nutrition counseling, ask your doctor for referral and call [phone] to make an appointment. Discharge Medications: Current [...] Center 08/17/2023 2:15 PM Roly Husain MD [facility] CAR 122 PSA 09/21/2023 11:30 AM Tristan Watson MD [facility] Contact Information for Follow-ups Tristan Watson MD Specialty: Family Medicine Relationship: PCP - [place] [address] [place] [address] Next Steps: Follow up Instructions: Follow-up PCP [...] in 4-7 days To provider: TRISTAN WATSON RONMENTAL PROTECTION GEOLOGIST documented in this encounter Discharge Instructions * Discharge Instructions* Elizabeth Dunn RN - 07/18/2023 4:07 PM ENVIRONMENTAL PROTECTION GEOLOGIST Instructions for going home after your Cardiac [...] Primary Care Physician in 2-3 weeks and Senior Engineering Manager in 4-6 weeks. Moderate Sedation WHAT YOU [...] was ALWAYS EXCELLENT! Please call IMU at [phone] if you have any questions regarding your care. Wishing you continued improvement during your recovery. Your Intermediate Care Unit Team RONMENTAL PROTECTION GEOLOGIST RONMENTAL PROTECTION GEOLOGIST RONMENTAL PROTECTION GEOLOGIST RONMENTAL PROTECTION GEOLOGIST RONMENTAL PROTECTION GEOLOGIST RONMENTAL PROTECTION GEOLOGIST * Discharge Instr - Diet* Olive Yoon - 07/20/2023 2:09 PM ENVIRONMENTAL PROTECTION GEOLOGIST Continue to follow a Low Sodium diet and limit sodium intake to less than 2,000mg per day. Avoid foods that are high sources of sodium, such as fast foods, fried/breaded foods, pickled foods, canned goods, deli meats and gravies/sauces. Use alternatives to season foods such as . DEONDRE and other he rbs. Additional resources are available online from the [place] [employer] at www.heart.org/en/healthy-living/healthy-eating Oral nutritional supplement 2 - 3 x daily until intakes consistently adequate. If poor intakes and/or unintended weight loss occur on discharge follow up with primary care physician. Call [facility] Dietitian's office at [phone] for questions about your diet. If interested in nutrition counseling, ask your doctor for referral and call [phone] to make an appointment. RONMENTAL PROTECTION GEOLOGIST RONMENTAL PROTECTION GEOLOGIST * Appointments* Argelia Kam, BREA - 07/19/2023 3:45 PM ENVIRONMENTAL PROTECTION GEOLOGIST You have a new patient appointment in the [place] Tactical Intelligence Officer office with Dr. Rodrigue Gonzalez 2023 @ 2:15 p.m. The office is located directly across from the hospital in Medical Office [address], [address]. RONMENTAL PROTECTION GEOLOGIST documented in this encounter Medications at Time [...] Departure Means Destination Comment s Discharge to skilled nursing facility [facility] documented in this encounter Progress Notes * Ave Fagan PTA - 07/29/2023 9:00 AM CST Physical Therapy [...] this the discharge summary Recommendation/Plan PT Recommendation/Plan Nursing Home Facility Patient at high risk for Falls;Readmission;Injury [...] to return to prior level of independence RONMENTAL PROTECTION GEOLOGIST * Wan Nava, [facility] - 07/29/2023 5:44 AM CST Pharmacy Consult [...] BMI > 30 Thank you, Wan Nava [facility] Pharmacy department RONMENTAL PROTECTION GEOLOGIST * Krzysztof Sarah MD - 07/28/2023 2:48 [...] in the bed, appears comfortable in a shelter facility placement planned 07/28 patient lying in [...] W Possible Cardioversion Result Date: 07/20/2023 Narrative: [employer] Job ID: [id number] [facility] Document ID: [id number] Dictated date/time: [id number] NAME OF PROCEDURE 1. Transesophageal echocardiogram. 2. [...] a few weeks. Job ID/Internal Job ID: [id number] ECG 12 lead Result Date: 07/20/2023 Narrative: Vent Rate: 70 bpm RR Interval: 846 msec WA Interval: 0 msec QRS Duration: 154 msec QT Interval: 465 msec QTC Interval: 487 msec P-R-T [place]: 90687 - 69 - 195 degrees IMPRESSION: ATRIAL [...] Blaze Schwartz M.D. DYANA: DYANA Report ID: [id number] Reading Location: [id number] Cardiac Catheterization Result Date: 07/19/2023 Narrative: [employer] Job ID: [id number] [employer] Document ID: [id number] Dictated date/time: [id number] CARDIAC CATHETERIZATION A 78-year-old with obesity and shortness of breath. Echocardiogram showed severe segmental LV dysfunction. She is now having chest pain. She was referred for catheterization. INDICATION FOR PROCEDURE Takotsubo cardiomyopathy. PROCEDURE PERFORMED Left heart catheterization, selective coronary angiography, left ventriculography. After obtaining informed consent, patient was brought to the cardiac chemistry laboratory technician. She was prepped and draped in the usual sterile fashion. Conscious sedation was administered by the chemistry laboratory technician staff under my supervision. A total of 0.5 mg Verse d and 25 mcg of fentanyl were given. See procedure log for further details. Total sedation time was16 minutes. A 6-Sri Lankan sheath was inserted in the right radial [...] John Dominguez MD Job ID/Internal Job ID: [id number] ECG 12 lead Result Date: 07/19/2023 Narrative: Vent Rate: 91 bpm RR Interval: 655 msec WA Interval: 0 msec QRS Duration: 123 msec QT Interval: 420 msec QTC Interval: 469 msec P-R-T [place]wick: 09640 - 65 - 208 degrees IMPRESSION: ATRIAL [...] Rate: 100 bpm RR Interval: 597 msec WA Interval: 0 msec QRS Duration: 128 msec QT Interval: 355 msec QTC Interval: 412 msec P-R-T [place]: 72267 - 33 - 56 degrees IMPRESSION: UNCERTAIN REGULAR RHYTHM, probably junctional POSSIBLE LATERAL MYOCARDIAL INFARCTION , OF INDETERMINATE AGE [30ms Q WAVE IN I/aVL/V5/V6] CRITICAL TEST RESULT Compared to prior EKG, P-waves are not present Electronically Signed By: John Dominguez MD ECG 12 lead Result Date: 07/18/2023 Narrative: Vent Rate: 85 bpm RR Interval: 700 msec WA Interval: 0 msec QRS Duration: 123 msec QT Interval: 403 msec QTC Interval: 445 msec P-R-T [place]: 83179 - 33 - 52 degrees IMPRESSION: UNCERTAIN REGULAR RHYTHM, probably junctional POSSIBLE LATERAL MYOCARDIAL INFARCTION , OF INDETERMINATE AGE [30 ms Q WAVE IN I/aVL/V5/V6] ABNORMAL ECG NO CHANGE FROM PREVIOUS TRACING NOTED Electronically Signed By: John Dominguez MD Transthoracic Echo (TTE) Complete W Doppler/CF Result Date: 07/18/2023 Narrative: [address] [place] [address] Echocardiogram Report Patient Name: PEBBLES LAL L : 1945 Study Date: 07/18/2023 8:50:58 AM Gender: F Tech: Location: [place] [address] Ref Provider: GIANLUCA SORIANO Height(Cm): 152 BSA: [...] left ventricular hypertrophy. Moderate global left ventricular systolicdysfunction. Ejection fraction is visually estimated at 35 to 40 %. 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 Left Atrium: There is mild enlargement of left atrium. Right Ventricle: Normal right ventricular size. Right Atrium: The right atrium is normalin size. Aortic Valve: Normal structure of the [...] left atrium. Mild mitral annular calcification. Mild tomoderate mitral valve regurgitation. Normal structure of the aortic valve. Normal structure of the tricuspid valve. Moderate pulmonary hypertension based on right ventricular systolic pressure. Estimated peak RVSP is 57 to 61 mmHg. Trivial regurgitation in the tricuspid valve. Electronically SignedBy: Dr Roly Husain 2023-07-18 10:07:11 ENVIRONMENTAL PROTECTION GEOLOGIST XR CHEST 1 VIEW PORTABLE Result Date: 07/16/2023 Narrative: EXAM DESCRIPTION: XR CHEST 1 VIEW REASON FOR STUDY: cough Pt presents [facility] with nausea vomiting diarrhea spo2 89% RA TECHNIQUE: 1 radiographic view(s) of the chest. COMPARISON: 04/14/2019 FINDINGS: Stable cardiomegaly. Poor inspiratory result with bibasilar discoid atelectasis. Mild pulmonary vascular congestion. No airspace consolidation. No pneumothorax. IMPRESSION: Cardiomegaly and mild pulmonary vascular congestion. THIS IS AN ELECTRONICALLY VERIFIED FINAL REPORT 0:43 PM - Electronically signed by Pawan Mata M.D. KT: CAMILO Report ID: [id number] Reading Location: [id number] @MEDADMINPROSE@ [facility] Facility-Administered Medications Medication Dose Route Frequency Provider Last Rate Last Admin acetaminophen (TYLENOL) tablet 650 mg 650 mg oral Q4H PRN Maciel Jean MD 650 mg at 07/28/23 0327 albuterol 2.5 mg /3 mL (0.083 %) nebulizer solution 2.5 mg 2.5 mg nebulization Q4H PRN (RT) Jyocelyn Moseley MD 2.5 mg at 07/20/23 193 [...] MD 1 tablet at 07/27/232023 influenza quadrivalent [id number] (FLUZONE HIGH DOSE) 240 mcg/0.7 mL vaccine (HIGH DOSE age 65 yearsand up) 0.7 mL 0.7 mL intramuscular During hospitalization Maciel Jean MD magnesium hydroxide (MILK OF MAGNESIA) 80 mg/mL (33.3 mg/mL as elemental magnesium) oral [id number] mL 30 mL oral Daily PRN Karen [...] (CMS/HCC) (HCC) Mild protein-calorie malnutrition (CMS/HCC) (HCC) Acute hypoxic respiratory failure Non STEMI/troponin elevation [...] reading , please check , thank you. RONMENTAL PROTECTION GEOLOGIST * Ave [facility], SENIOR SOLUTIONS CONSULTANT - 07/28/2023 2:37 PM CST Physical Therapy [...] this the discharge summary Recommendation/Plan PT Recommendation/Plan Nursing Home Facility Patient at high risk for Falls;Readmission;Injury [...] to return to prior level of independence RONMENTAL PROTECTION GEOLOGIST * Ave [facility] PTA - 07/27/2023 3:13 PM CST Physical Therapy [...] this the discharge summary Recommendation/Plan PT Recommendation/Plan Nursing Home Facility Patient at high risk for Falls;Readmission;Injury [...] to return to prior level of independence RONMENTAL PROTECTION GEOLOGIST * Krzysztof Sarah MD - 07/27/2023 2:46 [...] in the bed, appears comfortable in a shelter facility placement planned Vitals: 24hr Min/Max: Temp [...] W Possible Cardioversion Result Date: 07/20/2023 Narrative: [employer] Job ID: [id number] [employer] Document ID: [id number] Dictated date/time: [id number] NAME OF PROCEDURE 1. Transesophageal echocardiogram. 2. [...] a few weeks. Job ID/Internal Job ID: [id number] ECG 12 lead Result Date: 07/20/2023 Narrative: Vent Rate: 70 bpm RR Interval: 846 msec WA Interval: 0 msec QRS Duration: 154 msec QT Interval: 465 msec QTC Interval: 487 msec P-R-T [place]wick: 03222 - 69 - 195 degrees IMPRESSION: ATRIAL [...] Blaze Schwartz M.D. DYANA: DYANA Report ID: [id number] Reading Location: [id number] Cardiac Catheterization Result Date: 07/19/2023 Narrative: [employer] Job ID: [id number] [facility] Document ID: [id number] Dictated date/time: [id number] CARDIAC CATHETERIZATION A 78-year-old with obesity and shortness of breath. Echocardiogram showed severe segmental LV dysfunction. She is now having chest pain. She was referred for catheterization. INDICATION FOR PROCEDURE Takotsubo cardiomyopathy. PROCEDURE PERFORMED Left heart catheterization, selective coronary angiography, left ventriculography. After obtaining informed consent, patient was brought to the cardiac chemistry laboratory technician. She was prepped and draped in the usual sterile fashion. Conscious sedation was administered by the chemistry laboratory technician staff under my supervision. A total of 0.5 mg Verse d and 25 mcg of fentanyl were given. See procedure log for further details. Total sedation time was16 minutes. A 6-Sri Lankan sheath was inserted in the right radial [...] John Dominguez MD Job ID/Internal Job ID: [id number] ECG 12 lead Result Date: 07/19/2023 Narrative: Vent Rate: 91 bpm RR Interval: 655 msec WA Interval: 0 msec QRS Duration: 123 msec QT Interval: 420 msec QTC Interval: 469 msec P-R-T [place]wick: 68610 - 65 - 208 degrees IMPRESSION: ATRIAL [...] Rate: 100 bpm RR Interval: 597 msec WA Interval: 0 msec QRS Duration: 128 msec QT Interval: 355 msec QTC Interval: 412 msec P-R-T [place]: 73304 - 33 - 56 degrees IMPRESSION: UNCERTAIN REGULAR RHYTHM, probably junctional POSSIBLE LATERAL MYOCARDIAL INFARCTION , OF INDETERMINATE AGE [30ms Q WAVE IN I/aVL/V5/V6] CRITICAL TEST RESULT Compared to prior EKG, P-waves are not present Electronically Signed By: John Dominguez MD ECG 12 lead Result Date: 07/18/2023 Narrative: Vent Rate: 85 bpm RR Interval: 700 msec WA Interval: 0 msec QRS Duration: 123 msec QT Interval: 403 msec QTC Interval: 445 msec P-R-T [place]: 96868 - 33 - 52 degrees IMPRESSION: UNCERTAIN REGULAR RHYTHM, probably junctional POSSIBLE LATERAL MYOCARDIAL INFARCTION , OF INDETERMINATE AGE [30 ms Q WAVE IN I/aVL/V5/V6] ABNORMAL ECG NO CHANGE FROM PREVIOUS TRACING NOTED Electronically Signed By: John Dominguez MD Transthoracic Echo (TTE) Complete W Doppler/CF Result Date: 07/18/2023 Narrative: [address] [address] Echocardiogram Report Patient Name: PEBBLES LAL L : 1945 Study Date: 07/18/2023 8:50:58 AM Gender: F Tech: Location: [place] [address] Ref Provider: GIANLUCA SORIANO Height(Cm): 152 BSA: [...] Signed By: Dr Roly Husain 2023-07-18 10:07:11 ENVIRONMENTAL PROTECTION GEOLOGIST XR CHEST 1 VIEW PORTABLE Result Date: 07/16/2023 Narrative: EXAM DESCRIPTION: XR CHEST 1 VIEW REASON FOR STUDY: cough Pt presents [place] with nausea vomiting diarrhea spo2 89% RA TECHNIQUE: 1 radiographic view(s) of the chest. COMPARISON: 04/14/2019 FINDINGS: Stable cardiomegaly. Poor inspiratory result with bibasilar discoid atelectasis. Mild pulmonary vascular congestion. No airspace consolidation. No pneumothorax. IMPRESSION: Cardiomegaly and mild pulmonary vascular congestion. THIS IS AN ELECTRONICALLY VERIFIED FINAL REPORT 0:43 PM - Electronically signed by Pawan Mata M.D. KT: CAMILO Report ID: [id number] Reading Location: [id number] @MEDADMINPROSE@ Current Facility-Administered Medications Medication Dose Route Frequency [...] SAL Karen Zambrano MD 2.5 mg at 07/27/23 0943 bisacodyl EC (DULCOLAX EC) tablet 10 mg 10 mg oral Daily PRN Karen Zambrano MD 10 mg at 230 buPROPion SR (WELLBUTRIN SR) 12 hour tablet [...] 1 tablet at 07/27/23 1230 influenza quadrivalent [id number] (FLUZONE HIGH DOSE) 240 mcg/0.7 mL vaccine (HIGH DOSE age 65 yearsand up) 0.7 mL 0.7 mL intramuscular During hospitalization Maciel Jean MD magnesium hydroxide (MILK OF MAGNESIA) 80 mg/mL (33.3 mg/mL as elemental magnesium) oral [id number] mL 30 mL oral Daily PRN Karen [...] hypothyroidism NSTEMI (non-ST elevated myocardial infarction) (CMS/HCC) ([facility]) Takotsubo cardiomyopathy Mitral regurgitation New onset atrial fibrillation (CMS/HCC) ([facility]) Mild protein-calorie malnutrition (CMS/HCC) ([facility]) Acute hypoxic respiratory failure Non STEMI/troponin elevation [...] reading , please check , thank you. RONMENTAL PROTECTION GEOLOGIST RONMENTAL PROTECTION GEOLOGIST * Chris Weir, [facility] - 07/27/2023 5:34 AM CST Pharmacy Consult [...] BMI > 30 Thank you, Chris Weir [facility] Pharmacy department RONMENTAL PROTECTION GEOLOGIST * Xiomara Guzman, OT - 07/26/2023 3:46 [...] this the discharge summary Recommendation/Plan OT Recommendation Nursing Home Facility Patient at high risk for Falls;Readmission;Injury [...] Progress during current admission Progressing toward goals RONMENTAL PROTECTION GEOLOGIST * Krzysztof Sarah MD - 07/26/2023 2:41 [...] Result Date: 07/20/2023 Narrative: Daniela Job ID: [id number] [employer] Document ID: [id number] Dictated date/time: [id number] NAME OF PROCEDURE 1. Transesophageal echocardiogram. 2. [...] a few weeks. Job ID/Internal Job ID: [id number] ECG 12 lead Result Date: 07/20/2023 Narrative: Vent Rate: 70 bpm RR Interval: 846 msec WA Interval: 0 msec QRS Duration: 154 msec QT Interval: 465 msec QTC Interval: 487 msec P-R-T Warwick: 81729 - 69 - 195 degrees IMPRESSION: ATRIAL [...] Blaze Schwartz M.D. DYANA: DYANA Report ID: [id number] Reading Location: [id number] Cardiac Catheterization Result Date: 07/19/2023 Narrative: [employer] Job ID: [id number] [employer] Document ID: [id number] Dictated date/time: [id number] CARDIAC CATHETERIZATION A 78-year-old with obesity and shortness of breath. Echocardiogram showed severe segmental LV dysfunction. She is now having chest pain. She was referred for catheterization. INDICATION FOR PROCEDURE Takotsubo cardiomyopathy. PROCEDURE PERFORMED Left heart catheterization, selective coronary angiography, left ventriculography. After obtaining informed consent, patient was brought to the cardiac chemistry laboratory technician. She was prepped and draped in the usual sterile fashion. Conscious sedation was administered by the chemistry laboratory technician staff under my supervision. A total of 0.5 mg Verse d and 25 mcg of fentanyl were given. See procedure log for further details. Total sedation time was16 minutes. A 6-[place]ri Lankan sheath was inserted in the right radial [...] John Dominguez MD Job ID/Internal Job ID: [id number] ECG 12 lead Result Date: 07/19/2023 Narrative: Vent Rate: 91 bpm RR Interval: 655 msec WA Interval: 0 msec QRS Duration: 123 msec QT Interval: 420 msec QTC Interval: 469 msec P-R-T [place]wick: 08080 - 65 - 208 degrees IMPRESSION: ATRIAL [...] Rate: 100 bpm RR Interval: 597 msec WA Interval: 0 msec QRS Duration: 128 msec QT Interval: 355 msec QTC Interval: 412 msec P-R-T [place]: 45192 - 33 - 56 degrees IMPRESSION: UNCERTAIN REGULAR RHYTHM, probably junctional POSSIBLE LATERAL MYOCARDIAL INFARCTION , OF INDETERMINATE AGE [30ms Q WAVE IN I/aVL/V5/V6] CRITICAL TEST RESULT Compared to prior EKG, P-waves are not present Electronically Signed By: John Dominguez MD ECG 12 lead Result Date: 07/18/2023 Narrative: Vent Rate: 85 bpm RR Interval: 700 msec WA Interval: 0 msec QRS Duration: 123 msec QT Interval: 403 msec QTC Interval: 445 msec P-R-T [place]: 11683 - 33 - 52 degrees IMPRESSION: UNCERTAIN REGULAR RHYTHM, probably junctional POSSIBLE LATERAL MYOCARDIAL INFARCTION , OF INDETERMINATE AGE [30 ms Q WAVE IN I/aVL/V5/V6] ABNORMAL ECG NO CHANGE FROM PREVIOUS TRACING NOTED Electronically Signed By: John Dominguez MD Transthoracic Echo (TTE) Complete W Doppler/CF Result Date: 07/18/2023 Narrative: [address] [address] Echocardiogram Report Patient Name: PEBBLES LAL L : 1945 Study Date: 07/18/2023 8:50:58 AM Gender: F Tech: Location: [place] [address] Ref Provider: GIANLUCA SORIANO Height(Cm): 152 BSA: [...] Signed By: Dr Roly Husain 2023-07-18 10:07:11 ENVIRONMENTAL PROTECTION GEOLOGIST XR CHEST 1 VIEW PORTABLE Result Date: [...] Pawan Mata M.D. KT: CAMILO Report ID: [id number] Reading Location: [id number] @MEDADMINPROSE@ [facility] Facility-Administered Medications Medication Dose Route Frequency Provider [...] 1 tablet at 07/20/23 0212 influenza quadrivalent [id number] (FLUZONE HIGH DOSE) 240 mcg/0.7 mL vaccine (HIGH DOSE age 65 yearsand up) 0.7 mL 0.7 mL intramuscular During hospitalization Maciel Jean MD magnesium hydroxide (MILK OF MAGNESIA) 80 mg/mL (33.3 mg/mL as elemental magnesium) oral [id number] mL 30 mL oral Daily PRN Karen [...] index (BMI) of50.0 to 59.9 in adult ([facility]) Acquired hypothyroidism NSTEMI (non-ST elevated myocardial infarction) (CMS/HCC) ([facility]) Takotsubo cardiomyopathy Mitral regurgitation New onset atrial fibrillation (CMS/HCC) ([facility]) Mild protein-calorie malnutrition (CMS/HCC) ([facility]) Acute hypoxic respiratory failure Non STEMI/troponin elevation [...] reading , please check , thank you. RONMENTAL PROTECTION GEOLOGIST RONMENTAL PROTECTION GEOLOGIST RONMENTAL PROTECTION GEOLOGIST * Ave [facility], SENIOR SOLUTIONS CONSULTANT - 07/26/2023 2:22 PM CST Physical Therapy [...] this the discharge summary Recommendation/Plan PT Recommendation/Plan Nursing Home Facility Patient at high risk for Falls;Readmission;Injury [...] safely care for self in the home RONMENTAL PROTECTION GEOLOGIST * Olive Yoon - 07/26/2023 1:33 PM CST NUTRITION ASSESSMENT [...] culture. Blood cultures were obtained, and a KEYBOARD SPECIALIST swab RVP was negative. She is being admitted to the ICU for close observation. Objective Past Medical History: Diagnosis Date Asthma COPD (chronic obstructive pulmonary disease) (HCC) History of transfusion HX OTHER MEDICAL 01-TRICHOLOGIST HX 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-ORTHOPEDIST HX OTHER MEDICAL [...] acetaminophen albuterol bisacodyl EC HYDROcodone-acetaminophen influenza quadrivalent magnesium hydroxide mineral oil ondansetron sodium chloride [...] 0.76 < > 0.77 < > 0.75 ORE-CSG-TSHQVXK mL/min/1.73 m2 81 < > 80 < [...] of Weight Used for Estimated Protein : [place] Total Fluid Estimated Needs: 1783.6 Fluid Needs [...] majority of ONS this morning. Last bm SENIOR SOLUTIONS CONSULTANT. Constipated. Per nursing, refusing constipation medication. Wt [...] Additional resources are available online from the [place] at www.heart.org/en/healthy-living/healthy-eating Oral nutritional supplement 2 - 3 x daily until intakes consistently adequate. If poor intakes and/or unintended weight loss occur on discharge follow up with primary care physician. Call [facility] Dietitian's office at [phone] for questions about your diet. If interested in nutrition counseling, ask your doctor for referral and call [phone] to make an appointment. lOive Yoon RDN [facility] Inpatient Office: [phone] Weekend Coverage: [phone] RONMENTAL PROTECTION GEOLOGIST RONMENTAL PROTECTION GEOLOGIST * Karen Zambrano MD - 07/25/2023 11:59 [...] Result Date: 07/20/2023 Narrative: Daniela Job ID: [id number] [facility] Document ID: [id number] Dictated date/time: [id number] NAME OF PROCEDURE 1. Transesophageal echocardiogram. 2. [...] a few weeks. Job ID/Internal Job ID: [id number] ECG 12 lead Result Date: 07/20/2023 Narrative: Vent Rate: 70 bpm RR Interval: 846 msec WA Interval: 0 msec QRS Duration: 154 msec QT Interval: 465 msec QTC Interval: 487 msec P-R-T [place]: 32718 - 69 - 195 degrees IMPRESSION: ATRIAL [...] Blaze Schwartz M.D. DYANA: DYANA Report ID: [id number] Reading Location: [id number] Cardiac Catheterization Result Date: 07/19/2023 Narrative: [employer] Job ID: [id number] [facility] Document ID: [id number] Dictated date/time: [id number] CARDIAC CATHETERIZATION A 78-year-old with obesity and shortness of breath. Echocardiogram showed severe segmental LV dysfunction. She is now having chest pain. She was referred for catheterization. INDICATION FOR PROCEDURE Takotsubo cardiomyopathy. PROCEDURE PERFORMED Left heart catheterization, selective coronary angiography, left ventriculography. After obtaining informed consent, patient was brought to the cardiac chemistry laboratory technician. She was prepped and draped in the usual sterile fashion. Conscious sedation was administered by the chemistry laboratory technician staff under my supervision. A total of 0.5 mg Verse d and 25 mcg of fentanyl were given. See procedure log for further details. Total sedation time was16 minutes. A 6-Sri Lankan sheath was inserted in the right radial [...] John Dominguez MD Job ID/Internal Job ID: [id number] ECG 12 lead Result Date: 07/19/2023 Narrative: Vent Rate: 91 bpm RR Interval: 655 msec WA Interval: 0 msec QRS Duration: 123 msec QT Interval: 420 msec QTC Interval: 469 msec P-R-T [place]: 70177 - 65 - 208 degrees IMPRESSION: ATRIAL [...] Rate: 100 bpm RR Interval: 597 msec WA Interval: 0 msec QRS Duration: 128 msec QT Interval: 355 msec QTC Interval: 412 msec P-R-T [place]: 30238 - 33 - 56 degrees IMPRESSION: UNCERTAIN REGULAR RHYTHM, probably junctional POSSIBLE LATERAL MYOCARDIAL INFARCTION , OF INDETERMINATE AGE [30ms Q WAVE IN I/aVL/V5/V6] CRITICAL TEST RESULT Compared to prior EKG, P-waves are not present Electronically Signed By: John Dominguez MD ECG 12 lead Result Date: 07/18/2023 Narrative: Vent Rate: 85 bpm RR Interval: 700 msec WA Interval: 0 msec QRS Duration: 123 msec QT Interval: 403 msec QTC Interval: 445 msec P-R-T [place]: 90431 - 33 - 52 degrees IMPRESSION: UNCERTAIN REGULAR RHYTHM, probably junctional POSSIBLE LATERAL MYOCARDIAL INFARCTION , OF INDETERMINATE AGE [30 ms Q WAVE IN I/aVL/V5/V6] ABNORMAL ECG NO CHANGE FROM PREVIOUS TRACING NOTED Electronically Signed By: John Dominguez MD Transthoracic Echo (TTE) Complete W Doppler/CF Result Date: 07/18/2023 Narrative: [address] [place] [address] Echocardiogram Report Patient Name: PEBBLES LAL L : 1945 Study Date: 07/18/2023 8:50:58 AM Gender: F Tech: Location: [place] [address] Ref Provider: GIANLUCA SORIANO Height(Cm): 152 BSA: [...] - 2.10 ] cm LA Dimension MM 5.15[ 2.70 - 3.80 ] cm LVOT Peak [...] Signed By: Dr Roly Husain 2023-07-18 10:07:11 ENVIRONMENTAL PROTECTION GEOLOGIST XR CHEST 1 VIEW PORTABLE Result Date: [...] Pawan Mata M.D. KT: KT Report ID: [id number] Reading Location: [place] [address] Current Facility-Administered Medications Medication Dose Route Frequency [...] Roly Husain MD 200 mg at 07/25/23 09 [START ON 08/02/2023] amiodarone (PACERONE) tablet 200 mg 200 mg oral Daily Roly Husain MD apixaban (ELIQUIS) tablet 2.5 mg 2.5 mg oral Q12H SAL Karen Zambrano MD 2.5 mg at 07/25/23 09 bisacodyl EC (DULCOLAX EC) tablet 10 mg 10 mg oral Daily PRN Karen Zambrano MD buPROPion SR (WELLBUTRIN SR) 12 hour tablet 150 mg 150 mg oral BID Maciel Jean MD 150 mg at 07/25/23905 carvediloL (COREG) tablet 3.125 mg 3.125 mg oral BID with meals (bkfst, dinner) Roly Husain MD 3.125 mg at 07/25/23905 famotidine (PEPCID) tablet 20 mg 20 mg oral Daily Maciel Jean MD 20 mg at 07/25/23905 FLUoxetine (PROzac) capsule 40 mg 40 mg oral Daily Maciel Jean MD 40 mg at 07/25/23905 furosemide (LASIX) 10 mg/mL injection 60 mg 60 mg intravenous Daily Karen Zambrano MD 60 mg at 07/25/23904 HYDROcodone-acetaminophen (NORCO) 5-325 mg per tablet 1 tablet 1 tablet oral Q4H PRN Maciel Jean MD 1 tablet at 07/20/23 0212 influenza quadrivalent [id number] (FLUZONE HIGH DOSE) 240 mcg/0.7 mL vaccine (HIGH DOSE age 65 yearsand up) 0.7 mL 0.7 mL intramuscular During hospitalization Maciel Jean MD magnesium hydroxide (MILK OF MAGNESIA) 80 mg/mL (33.3 mg/mL as elemental magnesium) oral [id number] mL 30 mL oral Daily PRN Karen [...] index (BMI) of50.0 to 59.9 in adult ([facility]) Acquired hypothyroidism NSTEMI (non-ST elevated myocardial infarction) (CMS/HCC) ([facility]) Takotsubo cardiomyopathy Mitral regurgitation New onset atrial fibrillation (CMS/HCC) ([facility]) Resolved Problems: No resolved hospital problems. Voice recognition software [employer] Direct was used dictate and transcribe this document. Char Conveyor Tender variances may occur. Despite proofreading, typographical errors may occur. Karen Zambrano MD 07/25/2023 11:59 AM RONMENTAL PROTECTION GEOLOGIST * Wan Nava, [facility] - 07/25/2023 9:29 AM CST Pharmacy Consult -Electrolyte Replacement Protocol (in patients not receiving parenteral nutrition) Pharmacist managed electrolyte replacement protocol has been ordered by Dr. Soirano. Exclusion criteria to the pharmacist managed electrolyte [...] BMI > 30 Thank you, Wan Nava [facility] Pharmacy department RONMENTAL PROTECTION GEOLOGIST * Roly Husain MD - 07/25/2023 7:39 AM CST Cardiology Progress Note 07/25/23 Patient tells me that she was in the chair for 1.5 hours yesterday. However, assistant chief nursing officer indicated to me that she was never [...] water (premix) 1,000 mg 1,000 mg intravenous DailyAncramSilvia MD 1,000 mg at 07/18/23 0841 dextrose 5% and sodium chloride 0.45% infusion (premix) 100 mL/hr intravenous Continuous Maciel Jean MD 100 mL/hr at 07/18/23 0841 100 mL/hr at 07/18/23 0841 enoxaparin (LOVENOX) syringe 40 mg 40 mg subcutaneous Daily-2100 Maciel Jean MD 40 mg at 07/17/232206 famotidine (PEPCID) injection 20 mg 20 mg intravenous Q24H [facility] Maciel Jean MD 20 mg at 0 FLUoxetine (PROzac) capsule 40 mg 40 mg oral Daily Maciel Jean MD 40 mg at 07/18/23 0840 HYDROcodone-acetaminophen (NORCO) 5-325 mg per tablet 1 tablet 1 tablet oral Q4H PRN Maciel Jean MD 1 tablet at 07/18/23 0520 influenza quadrivalent [id number] (FLUZONE HIGH DOSE) 240 mcg/0.7 mL vaccine [...] 0.77 0.70 -- 0.75 0.75 0.72 0.77 [id number] mL/min/1.73 m2 80 90 -- 82 82 [...] CC: Tristan Watson MD Sargsyan, Narine, MD RONMENTAL PROTECTION GEOLOGIST * Karen Zambrano MD - 07/24/2023 12:56 [...] W Possible Cardioversion Result Date: 07/20/2023 Narrative: [employer] Job ID: [id number] [employer] Document ID: [id number] Dictated date/time: [id number] NAME OF PROCEDURE 1. Transesophageal echocardiogram. 2. [...] a few weeks. Job ID/Internal Job ID: [id number] ECG 12 lead Result Date: 07/20/2023 Narrative: Vent Rate: 70 bpm RR Interval: 846 msec WA Interval: 0 msec QRS Duration: 154 msec QT Interval: 465 msec QTC Interval: 487 msec P-R-T [place]: 57255 - 69 - 195 degrees IMPRESSION: ATRIAL [...] Blaze Schwartz M.D. DYANA: DYANA Report ID: [id number] Reading Location: [id number] Cardiac Catheterization Result Date: 07/19/2023 Narrative: Daniela Job ID: [id number] [facility] Document ID: [id number] Dictated date/time: [id number] CARDIAC CATHETERIZATION A 78-year-old with obesity and shortness of breath. Echocardiogram showed severe segmental LV dysfunction. She is now having chest pain. She was referred for catheterization. INDICATION FOR PROCEDURE Takotsubo cardiomyopathy. PROCEDURE PERFORMED Left heart catheterization, selective coronary angiography, left ventriculography. After obtaining informed consent, patient was brought to the cardiac chemistry laboratory technician. She was prepped and draped in the usual sterile fashion. Conscious sedation was administered by the chemistry laboratory technician staff under my supervision. A total of 0.5 mg Verse d and 25 mcg of fentanyl were given. See procedure log for further details. Total sedation time was16 minutes. A 6-[place]ank[place] sheath was inserted in the right radial [...] John Dominguez MD Job ID/Internal Job ID: [id number] ECG 12 lead Result Date: 07/19/2023 Narrative: Vent Rate: 91 bpm RR Interval: 655 msec WA Interval: 0 msec QRS Duration: 123 msec QT Interval: 420 msec QTC Interval: 469 msec P-R-T [place]: 71770 - 65 - 208 degrees IMPRESSION: ATRIAL [...] Rate: 100 bpm RR Interval: 597 msec WA Interval: 0 msec QRS Duration: 128 msec QT Interval: 355 msec QTC Interval: 412 msec P-R-T [place]: 11117 - 33 - 56 degrees IMPRESSION: UNCERTAIN REGULAR RHYTHM, probably junctional POSSIBLE LATERAL MYOCARDIAL INFARCTION , OF INDETERMINATE AGE [30ms Q WAVE IN I/aVL/V5/V6] CRITICAL TEST RESULT Compared to prior EKG, P-waves are not present Electronically Signed By: John Dominguez MD ECG 12 lead Result Date: 07/18/2023 Narrative: Vent Rate: 85 bpm RR Interval: 700 msec WA Interval: 0 msec QRS Duration: 123 msec QT Interval: 403 msec QTC Interval: 445 msec P-R-T [place]: 53434 - 33 - 52 degrees IMPRESSION: UNCERTAIN REGULAR RHYTHM, probably junctional POSSIBLE LATERAL MYOCARDIAL INFARCTION , OF INDETERMINATE AGE [30 ms Q WAVE IN I/aVL/V5/V6] ABNORMAL ECG NO CHANGE FROM PREVIOUS TRACING NOTED Electronically Signed By: John Dominguez MD Transthoracic Echo (TTE) Complete W Doppler/CF Result Date: 07/18/2023 Narrative: [address] [address] Echocardiogram Report Patient Name: PEBBLES LAL L : 1945 Study Date: 07/18/2023 8:50:58 AM Gender: F Tech: Location: [place] [address] Ref Provider: ELYGIANLUCA Height(Cm): 152 BSA: 2.39 Weight(Kg): 135.2 Quality: [...] Signed By: Dr Roly Husain 2023-07-18 10:07:11 ENVIRONMENTAL PROTECTION GEOLOGIST XR CHEST 1 VIEW PORTABLE Result Date: [...] Pawan Mata M.D. KT: CAMILO Report ID: [id number] Reading Location: [id number] Current Facility-Administered Medications Medication Dose Route Frequency [...] tablet 150 mg 150 mg oral BID Mcaiel Jean MD 150 mg at 07/24/23 0905 carvediloL (COREG) tablet 3.125 mg 3.125 mg oral BID with meals (bkfst, dinner) Roly Husain MD 3.125 mg at 07/24/23 0905 famotidine (PEPCID) tablet 20 mg 20 mg oral Daily Maciel Jean MD 20 mg at 07/24/23 0906 FLUoxetine (PROzac) capsule 40 mg 40 mg oral Daily Maciel Jean MD 40 mg at 07/24/23 0905 furosemide (LASIX) 10 mg/mL injection 60 mg 60 mg intravenous Daily Karen Zambrano MD 60 mg at 07/24/23 1153 HYDROcodone-acetaminophen (NORCO) 5-325 mg per tablet 1 tablet 1 tablet oral Q4H PRN Maciel Jean MD 1 tablet at 07/20/23 0212 influenza quadrivalent 4521-4465 (FLUZONE HIGH DOSE) 240 mcg/0.7 mL vaccine [...] index (BMI) of50.0 to 59.9 in adult ([facility]) Acquired hypothyroidism NSTEMI (non-ST elevated myocardial infarction) ([facility]) ([facility]) Takotsubo cardiomyopathy Mitral regurgitation New onset atrial fibrillation ([facility]) ([facility]) Resolved Problems: No resolved hospital problems. Voice recognition software [employer] Direct was used dictate and transcribe this document. Char Conveyor Tender variances may occur. Despite proofreading, typographical errors may occur. Karen Zambrano MD 07/24/2023 12:56 PM RONMENTAL PROTECTION GEOLOGIST * Roly Husain MD - 07/24/2023 8:55 [...] 1 tablet at 07/18/23 0520 influenza quadrivalent 1747-6516 (FLUZONE HIGH DOSE) 240 mcg/0.7 mL vaccine [...] 0.77 0.70 -- 0.75 0.75 0.72 0.77 [id number] mL/min/1.73 m2 80 90 -- 82 82 [...] CC: Tristan Watson MD Sargsyan, Narine, MD RONMENTAL PROTECTION GEOLOGIST * William Flores, OT - 07/23/2023 12:31 PM CST Occupational Therapy Initial Evaluation Past Medical History: Diagnosis Date Asthma COPD (chronic obstructive pulmonary disease) (HCC) History of transfusion HX OTHER MEDICAL 01-TRICHOLOGIST HX 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-ORTHOPEDIST HX OTHER MEDICAL [...] Using Wheeled walker;Wheelchair-manual Prior Function Level of [place] Needs assistance with ADLs;Needs assistance with ambulation;Needs [...] this the discharge summary Recommendation/Plan OT Recommendation Nursing Home Facility Patient at high risk for Falls;Readmission;Injury [...] strength to improve independence with ADL completion. RONMENTAL PROTECTION GEOLOGIST * Ave Fagan, SENIOR SOLUTIONS CONSULTANT - 07/23/2023 10:25 AM CST Physical Therapy [...] this the discharge summary Recommendation/Plan PT Recommendation/Plan Nursing Home Facility Patient at high risk for Falls;Readmission;Injury [...] to return to prior level of independence RONMENTAL PROTECTION GEOLOGIST * Karen Zambrano MD - 07/23/2023 8:14 [...] midline, mucosa moist Lungs diminished bilaterally Heart: [id number], no significant murmur or gallop Abd: +BS, [...] W Possible Cardioversion Result Date: 07/20/2023 Narrative: [employer] Job ID: [id number] [employer] Document ID: [id number] Dictated date/time: [id number] NAME OF PROCEDURE 1. Transesophageal echocardiogram. 2. [...] a few weeks. Job ID/Internal Job ID: [id number] ECG 12 lead Result Date: 07/20/2023 Narrative: Vent Rate: 70 bpm RR Interval: 846 msec WA Interval: 0 msec QRS Duration: 154 msec QT Interval: 465 msec QTC Interval: 487 msec P-R-T [place]: 59498 - 69 - 195 degrees IMPRESSION: ATRIAL [...] Blaze Schwartz M.D. DYANA: DYANA Report ID: [id number] Reading Location: [id number] Cardiac Catheterization Result Date: 07/19/2023 Narrative: Daniela Job ID: [id number] [facility] Document ID: [id number] Dictated date/time: [id number] CARDIAC CATHETERIZATION A 78-year-old with obesity and shortness of breath. Echocardiogram showed severe segmental LV dysfunction. She is now having chest pain. She was referred for catheterization. INDICATION FOR PROCEDURE Takotsubo cardiomyopathy. PROCEDURE PERFORMED Left heart catheterization, selective coronary angiography, left ventriculography. After obtaining informed consent, patient was brought to the cardiac chemistry laboratory technician. She was prepped and draped in the usual sterile fashion. Conscious sedation was administered by the chemistry laboratory technician staff under my supervision. A total of 0.5 mg Verse d and 25 mcg of fentanyl were given. See procedure log for further details. Total sedation time was16 minutes. A 6-[place]ankan sheath was inserted in the right radial [...] John Dominguez MD Job ID/Internal Job ID: [id number] ECG 12 lead Result Date: 07/19/2023 Narrative: Vent Rate: 91 bpm RR Interval: 655 msec WA Interval: 0 msec QRS Duration: 123 msec QT Interval: 420 msec QTC Interval: 469 msec P-R-T [place]wick: 93269 - 65 - 208 degrees IMPRESSION: ATRIAL [...] Rate: 100 bpm RR Interval: 597 msec WA Interval: 0 msec QRS Duration: 128 msec QT Interval: 355 msec QTC Interval: 412 msec P-R-T [place]: 70670 - 33 - 56 degrees IMPRESSION: UNCERTAIN REGULAR RHYTHM, probably junctional POSSIBLE LATERAL MYOCARDIAL INFARCTION , OF INDETERMINATE AGE [30ms Q WAVE IN I/aVL/V5/V6] CRITICAL TEST RESULT Compared to prior EKG, P-waves are not present Electronically Signed By: John Dominguez MD ECG 12 lead Result Date: 07/18/2023 Narrative: Vent Rate: 85 bpm RR Interval: 700 msec WA Interval: 0 msec QRS Duration: 123 msec QT Interval: 403 msec QTC Interval: 445 msec P-R-T [place]: 84507 - 33 - 52 degrees IMPRESSION: UNCERTAIN REGULAR RHYTHM, probably junctional POSSIBLE LATERAL MYOCARDIAL INFARCTION , OF INDETERMINATE AGE [30 ms Q WAVE IN I/aVL/V5/V6] ABNORMAL ECG NO CHANGE FROM PREVIOUS TRACING NOTED Electronically Signed By: John Dominguez MD Transthoracic Echo (TTE) Complete W Doppler/CF Result Date: 07/18/2023 Narrative: [address] [place] [address] Echocardiogram Report Patient Name: PEBBLES LAL L : 1945 Study Date: 07/18/2023 8:50:58 AM Gender: F Tech: Location: [id number] Ref Provider: SAWEmilyGIANLUCA Height(Cm): 152 BSA: 2.39 Weight(Kg): 135.2 Quality: [...] - 2.10 ] cm LA Dimension MM 5.15[ 2.70 - 3.80 ] cm LVOT Peak [...] left ventricular hypertrophy. Moderate global left ventricular systolicdysfunction. Ejection fraction is visually estimated at 35 to 40 %. 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 Left Atrium: There is mild enlargement of left atrium. Right Ventricle: Normal right ventricular size. Right Atrium: The right atrium is normalin size. Aortic Valve: Normal structure of the [...] left atrium. Mild mitral annular calcification. Mild tomoderate mitral valve regurgitation. Normal structure of the aortic valve. Normal structure of the tricuspid valve. Moderate pulmonary hypertension based on right ventricular systolic pressure. Estimated peak RVSP is 57 to 61 mmHg. Trivial regurgitation in the tricuspid valve. Electronically SignedBy: Dr Roly Husain 2023-07-18 10:07:11 ENVIRONMENTAL PROTECTION GEOLOGIST XR CHEST 1 VIEW PORTABLE Result Date: [...] Pawan Mata M.D. KT: CAMILO Report ID: [id number] Reading Location: [id number] Current Facility-Administered Medications Medication Dose Route Frequency [...] Roly Husain MD 3.125 mg at 07/22/23 172 famotidine (PEPCID) tablet 20 mg 20 mg oral Daily Maciel Jean MD 20 mg at 07/22/23 0758 FLUoxetine (PROzac) capsule 40 mg 40 mg oral Daily Maciel Jean MD 40 mg at 07/22/23 075 furosemide (LASIX) 10 mg/mL injection 60 mg 60 mg intravenous Once Karen Zambrano MD HYDROcodone-acetaminophen (NORCO) 5-325 mg per tablet 1 tablet 1 tablet oral Q4H PRN Maciel Jean MD 1 tablet at 07/20/23211 influenza quadrivalent 0246-4092 (FLUZONE HIGH DOSE) 240 mcg/0.7 mL vaccine [...] hypothyroidism NSTEMI (non-ST elevated myocardial infarction) (CMS/HCC) ([facility]) Takotsubo cardiomyopathy Mitral regurgitation New onset atrial fibrillation (CMS/HCC) ([facility]) Resolved Problems: No resolved hospital problems. Voice recognition software [employer] Direct was used dictate and transcribe this document. Char Conveyor Tender variances may occur. Despite proofreading, typographical errors may occur. Karen Zambrano MD 07/23/2023 8:14 AM RONMENTAL PROTECTION GEOLOGIST * Roly Husain MD - 07/23/2023 8:08 AM CST Cardiology Progress Note 07/23/23 Chief complaint: Shortness of breath Symptoms: Patient was s sleeping soundly, so I did not wake her up. I discussed cardiac issues withJuan Zambrano in person Vital Signs: Vitals: 07/22/23 [...] SpO2 Min: 89 % Max: 96 % \ Current Medications: Current Facility-Administered Medications Medication Dose Route Frequency Provider Last Rate Last Admin acetaminophen (TYLENOL) tablet 650 mg 650 mg oral Q4H PRN Maciel Jean MD buPROPion SR (WELLBUTRIN SR) 12 hour tablet 150 mg 150 mg oral BID Maciel Jean MD 150 mg at 07/18/23 0840 cefTRIAXone (ROCEPHIN) 1,000 mg/10 mL in sterile water (premix) 1,000 mg 1,000 mg intravenous DailyAncramSilvia MD 1,000 mg at 07/18/23 0841 dextrose 5% and sodium chloride 0.45% infusion (premix) 100 mL/hr intravenous Continuous Maciel Jean MD 100 mL/hr at 07/18/23 0841 100 mL/hr at 07/18/23 0841 enoxaparin (LOVENOX) syringe 40 mg 40 mg subcutaneous Daily-2099 Maciel Jean MD 40 mg at 07/17/232206 [...] 1 tablet at 07/18/23 0520 influenza quadrivalent 4870-5411 (FLUZONE HIGH DOSE) 240 mcg/0.7 mL vaccine (HIGH DOSE age 65 yearsand up) 0.7 mL 0.7 mL intramuscular During hospitalization Maciel Jean MD miconazole 2 % powder topical BID Maciel Jean MD Given at 07/18/23 0852 ondansetron (ZOFRAN) injection 4 mg 4 mg intravenous Q4H PRN Maciel Jena MD 4 mg at 07/18/23 0926 psyllium [...] mg/dL 0.70 -- 0.75 0.75 0.72 0.77 [id number] mL/min/1.73 m2 90 -- 82 82 87 [...] CC: Tristan Watson MD Sargsyan, Narine, MD RONMENTAL PROTECTION GEOLOGIST * Karen Zambrano MD - 07/22/2023 1:06 [...] midline, mucosa moist Lungs diminished bilateral Heart: [id number], no significant murmur or gallop Abd: +BS, [...] Result Date: 07/20/2023 Narrative: Daniela Job ID: [id number] [facility] Document ID: [id number] Dictated date/time: [id number] NAME OF PROCEDURE 1. Transesophageal echocardiogram. 2. [...] nature and without any regurgitation or vegetation. On the way out, no hypermobile elements noted in the aortic arch. CONCLUSION 1. No hypermobile elements in aortic arch. 2. No thrombus left ventricular apex or left atrial appendage. 3. Moderately dilated left atrium. 4. Severely diminished global LV function with apical akinesis. LVEFof 25% to 30%. 5. Pulmonic insufficiency. 6. [...] a few weeks. Job ID/Internal Job ID: [id number] ECG 12 lead Result Date: 07/20/2023 Narrative: Vent Rate: 70 bpm RR Interval: 846 msec WA Interval: 0 msec QRS Duration: 154 msec QT Interval: 465 msec QTC Interval: 487 msec P-R-T [place]: 46576 - 69 - 195 degrees IMPRESSION: ATRIAL [...] Blaze Schwartz M.D. DYANA: DYANA Report ID: [id number] Reading Location: [id number] Cardiac Catheterization Result Date: 07/19/2023 Narrative: [employer] Job ID: [id number] [facility] Document ID: [id number] Dictated date/time: [id number] CARDIAC CATHETERIZATION A 78-year-old with obesity and shortness of breath. Echocardiogram showed severe segmental LV dysfunction. She is now having chest pain. She was referred for catheterization. INDICATION FOR PROCEDURE Takotsubo cardiomyopathy. PROCEDURE PERFORMED Left heart catheterization, selective coronary angiography, left ventriculography. After obtaining informed consent, patient was brought to the cardiac chemistry laboratory technician. She was prepped and draped in the usual sterile fashion. Conscious sedation was administered by the chemistry laboratory technician staff under my supervision. A total of 0.5 mg Verse d and 25 mcg of fentanyl were given. See procedure log for further details. Total sedation time was16 minutes. A 6-[place] sheath was inserted in the right radial [...] John Dominguez MD Job ID/Internal Job ID: [id number] ECG 12 lead Result Date: 07/19/2023 Narrative: Vent Rate: 91 bpm RR Interval: 655 msec WA Interval: 0 msec QRS Duration: 123 msec QT Interval: 420 msec QTC Interval: 469 msec P-R-T [place]: 04076 - 65 - 208 degrees IMPRESSION: ATRIAL FIBRILLATION MODERATE INTRAVENTRICULAR CONDUCTION DELAY [110+ ms QRS DURATION] ST DEVIATION AND MODERATET-WAVE ABNORMALITY, CONSIDER ANTEROLATERAL ISCHEMIA [-0.1+ mV T-WAVE IN V3-V6] ST DEVIATION AND MODERATE T-WAVE ABNORMALITY, CONSIDER INFERIOR ISCHEMIA [-0.1+ mV T-WAVE IN II/aVF] ABNORMAL ECG Compared to prior EKG, anterolateral T- wave inversions are new QT interval has increased Electronically Signed By: oJhn Dominguez MD ECG 12 lead Result Date: 07/18/2023 Narrative: Vent Rate: 100 bpm RR Interval: 597 msec WA Interval: 0 msec QRS Duration: 128 msec QT Interval: 355 msec QTC Interval: 412 msec P-R-T [place]: 46516 - 33 - 56 degrees IMPRESSION: UNCERTAIN REGULAR RHYTHM, probably junctional POSSIBLE LATERAL MYOCARDIAL INFARCTION , OF INDETERMINATE AGE [30ms Q WAVE IN I/aVL/V5/V6] CRITICAL TEST RESULT Compared to prior EKG, P-waves are not present Electronically Signed By: John Dominguez MD ECG 12 lead Result Date: 07/18/2023 Narrative: Vent Rate: 85 bpm RR Interval: 700 msec WA Interval: 0 msec QRS Duration: 123 msec QT Interval: 403 msec QTC Interval: 445 msec P-R-T [place]: 72751 - 33 - 52 degrees IMPRESSION: UNCERTAIN REGULAR RHYTHM, probably junctional POSSIBLE LATERAL MYOCARDIAL INFARCTION , OF INDETERMINATE AGE [30 ms Q WAVE IN I/aVL/V5/V6] ABNORMAL ECG NO CHANGE FROM PREVIOUS TRACING NOTED Electronically Signed By: John Dominguez MD Transthoracic Echo (TTE) Complete W Doppler/CF Result Date: 07/18/2023 Narrative: [address] [place] [address] Echocardiogram Report Patient Name: PEBBLES LAL L : 1945 Study Date: 07/18/2023 8:50:58 AM Gender: F Tech: Location: [place] [address] Ref Provider: GIANLUCA SORIANO Height(Cm): 152 BSA: 2.39 Weight(Kg): 135.2 Quality: Adequate Order Provider: GRACIELA SORIANOOPROCEDURES: Echocardiographic Report: Transthoracic echocardiogram with complete 2D, M-Mode, and color Doppler examination. INDICATIONS: Congestive Heart Failure. Measurements: 2D/M Mode Doppler Lorenzo urement Value Normal Range Measurement Value Normal Range EF Teich MM 47.3 [ 55.0 - 70.0 ] percentAVA Vmax 2.33 [ 2.00 - 4.00 ] [...] left ventricular hypertrophy. Moderate global left ventricular systolicdysfunction. Ejection fraction is visually estimated at 35 to 40 %. 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 Left Atrium: There is mild enlargement of left atrium. Right Ventricle: Normal right ventricular size. Right Atrium: The right atrium is normalin size. Aortic Valve: Normal structure of the [...] left atrium. Mild mitral annular calcification. Mild tomoderate mitral valve regurgitation. Normal structure of the aortic valve. Normal structure of the tricuspid valve. Moderate pulmonary hypertension based on right ventricular systolic pressure. Estimated peak RVSP is 57 to 61 mmHg. Trivial regurgitation in the tricuspid valve. Electronically SignedBy: Dr Roly Husain 2023-07-18 10:07:11 ENVIRONMENTAL PROTECTION GEOLOGIST XR CHEST 1 VIEW PORTABLE Result Date: 07/16/2023 Narrative: EXAM DESCRIPTION: XR CHEST 1 VIEW REASON FOR STUDY: cough Pt presents [facility] with nausea vomiting diarrhea spo2 89% RA TECHNIQUE: 1 radiographic view(s) of the chest. COMPARISON: 04/14/2019 FINDINGS: Stable cardiomegaly. Poor inspiratory result with bibasilar discoid atelectasis. Mild pulmonary vascular congestion. No airspace consolidation. No pneumothorax. IMPRESSION: Cardiomegaly and mild pulmonary vascular congestion. THIS IS AN ELECTRONICALLY VERIFIED FINAL REPORT 0:43 PM - Electronically signed by Pawan Mata M.D. KT: CAMILO Report ID: [id number] Reading Location: [place] [address] Current Facility-Administered Medications Medication Dose Route Frequency [...] SAL Maciel Jean MD 2.5 mg at 07/22/23 [...] 1 tablet at 07/20/23 0212 influenza quadrivalent [id number] (FLUZONE HIGH DOSE) 240 mcg/0.7 mL vaccine [...] index (BMI) of50.0 to 59.9 in adult ([facility]) Acquired hypothyroidism NSTEMI (non-ST elevated myocardial infarction) ([facility]) ([facility]) Takotsubo cardiomyopathy Mitral regurgitation New onset atrial fibrillation ([facility]) ([facility]) Resolved Problems: No resolved hospital problems. Voice recognition software [employer] Direct was used dictate and transcribe this document. Char Conveyor Tender variances may occur. Despite proofreading, typographical errors may occur. Karen Zambrano MD 07/22/2023 1:06 PM RONMENTAL PROTECTION GEOLOGIST RONMENTAL PROTECTION GEOLOGIST * Becca Fernandez, PT - 07/22/2023 10:11 AM CST Physical Therapy 07/22/23 1000 PT Last Visit PT Missed Visit Reason Patient declined Rehab Only - Missed Reasons - All Disciplines Patient request (checked on at 0830 and sleeping heavily, 1000 pt declined PT reporting too tired) Becca Fernandez, PT RONMENTAL PROTECTION GEOLOGIST * Roly Husain MD - 07/22/2023 7:31 [...] SpO2 Min: 92 % Max: 100 % \ Current Medications: Current Facility-Administered Medications Medication Dose Route Frequency Provider Last Rate Last Admin acetaminophen (TYLENOL) tablet 650 mg 650 mg oral Q4H PRN Maciel Jean MD buPROPion SR (WELLBUTRIN SR) 12 hour tablet 150 mg 150 mg oral BID Maciel Jean MD 150 mg at 07/18/23 0840 cefTRIAXone (ROCEPHIN) 1,000 mg/10 mL in sterile water (premix) 1,000 mg 1,000 mg intravenous DailyAncramSilvia MD 1,000 mg at 07/18/23 0841 dextrose 5% and sodium chloride 0.45% infusion (premix) 100 mL/hr intravenous Continuous Maciel Jean MD 100 mL/hr at 07/18/23 0841 100 mL/hr at 07/18/23 0841 enoxaparin (LOVENOX) syringe 40 mg 40 mg subcutaneous Daily-2100 Maciel Jean MD 40 mg at 07/17/232206 famotidine (PEPCID) injection 20 mg 20 mg intravenous Q24H SAL Maciel Jean MD 20 mg at 0 FLUoxetine (PROzac) capsule 40 mg 40 mg oral Daily Maciel Jean MD 40 mg at 07/18/23 0840 HYDROcodone-acetaminophen (NORCO) 5-325 mg per tablet 1 tablet 1 tablet oral Q4H PRN Maciel Jean MD 1 tablet at 07/18/23 0520 influenza quadrivalent [id number] (FLUZONE HIGH DOSE) 240 mcg/0.7 mL vaccine [...] 20 CREATININE mg/dL 0.75 0.75 0.72 0.77 [id number] mL/min/1.73 m2 82 82 87 80 GLUCOSE [...] CC: Tristan Watson MD Sargsyan, Narine, MD RONMENTAL PROTECTION GEOLOGIST * Karen Zambrano MD - 07/21/2023 4:52 PM CST General Medicine Daily Progress SUBJECTIVE Chief complaint of code Oma below cardiomyopathy. Interval History: Is very weak, [...] W Possible Cardioversion Result Date: 07/20/2023 Narrative: [employer] Job ID: [id number] [employer] Document ID: [id number] Dictated date/time: [id number] NAME OF PROCEDURE 1. Transesophageal echocardiogram. 2. [...] a few weeks. Job ID/Internal Job ID: [id number] ECG 12 lead Result Date: 07/20/2023 Narrative: Vent Rate: 70 bpm RR Interval: 846 msec WA Interval: 0 msec QRS Duration: 154 msec QT Interval: 465 msec QTC Interval: 487 msec P-R-T [place]: [id number] - 69 - 195 degrees IMPRESSION: ATRIAL [...] Blaze Schwartz M.D. DYANA: DYANA Report ID: [id number] Reading Location: [place] [address] Cardiac Catheterization Result Date: 07/19/2023 Narrative: [employer] Job ID: [id number] [employer] Document ID: [id number] Dictated date/time: [id number] CARDIAC CATHETERIZATION A 78-year-old with obesity and shortness of breath. Echocardiogram showed severe segmental LV dysfunction. She is now having chest pain. She was referred for catheterization. INDICATION FOR PROCEDURE Takotsubo cardiomyopathy. PROCEDURE PERFORMED Left heart catheterization, selective coronary angiography, left ventriculography. After obtaining informed consent, patient was brought to the cardiac chemistry laboratory technician. She was prepped and draped in the usual sterile fashion. Conscious sedation was administered by the chemistry laboratory technician staff under my supervision. A total of 0.5 mg Verse d and 25 mcg of fentanyl were given. See procedure log for further details. Total sedation time was16 minutes. A 6-[place]ankan sheath was inserted in the right radial [...] John Dominguez MD Job ID/Internal Job ID: [id number] ECG 12 lead Result Date: 07/19/2023 Narrative: Vent Rate: 91 bpm RR Interval: 655 msec WA Interval: 0 msec QRS Duration: 123 msec QT Interval: 420 msec QTC Interval: 469 msec P-R-T [place]: [id number] - 65 - 208 degrees IMPRESSION: ATRIAL [...] Rate: 100 bpm RR Interval: 597 msec WA Interval: 0 msec QRS Duration: 128 msec QT Interval: 355 msec QTC Interval: 412 msec P-R-T [place]: 31661 - 33 - 56 degrees IMPRESSION: UNCERTAIN REGULAR RHYTHM, probably junctional POSSIBLE LATERAL MYOCARDIAL INFARCTION , OF INDETERMINATE AGE [30ms Q WAVE IN I/aVL/V5/V6] CRITICAL TEST RESULT Compared to prior EKG, P-waves are not present Electronically Signed By: John Dominguez MD ECG 12 lead Result Date: 07/18/2023 Narrative: Vent Rate: 85 bpm RR Interval: 700 msec WA Interval: 0 msec QRS Duration: 123 msec QT Interval: 403 msec QTC Interval: 445 msec P-R-T [place]: 14476 - 33 - 52 degrees IMPRESSION: UNCERTAIN REGULAR RHYTHM, probably junctional POSSIBLE LATERAL MYOCARDIAL INFARCTION , OF INDETERMINATE AGE [30 ms Q WAVE IN I/aVL/V5/V6] ABNORMAL ECG NO CHANGE FROM PREVIOUS TRACING NOTED Electronically Signed By: John Dominguez MD Transthoracic Echo (TTE) Complete W Doppler/CF Result Date: 07/18/2023 Narrative: [address] [address] Echocardiogram Report Patient Name: PEBBLES LAL Yair : 1945 Study Date: 07/18/2023 8:50:58 AM Gender: F Tech: Location: [place] [address] Ref Provider: GIANLUCA SORIANO Height(Cm): 152 BSA: 2.39 Weight(Kg): 135.2 Quality: Adequate Order Provider: ROBERT SORIANOURES: Echocardiographic Report: Transthoracic echocardiogram with complete 2D, [...] Signed By: Dr Roly Husain 2023-07-18 10:07:11 ENVIRONMENTAL PROTECTION GEOLOGIST XR CHEST 1 VIEW PORTABLE Result Date: [...] Pawan Mata M.D. KT: CAMILO Report ID: [id number] Reading Location: [id number] Current Facility-Administered Medications Medication Dose Route Frequency [...] 1 tablet at 07/20/23 0212 influenza quadrivalent [id number] (FLUZONE HIGH DOSE) 240 mcg/0.7 mL vaccine (HIGH DOSE age 65 yearsand up) 0.7 mL 0.7 mL intramuscular During hospitalization Maciel Jean MD miconazole 2 % powder topical BID Maciel Jean MD Given at 07/21/23 0813 ondansetron (ZOFRAN) injection 4 mg 4 mg intravenous Q4H PRN Maciel Jean MD 4 mg at 07/18/23 225 psyllium (aspartame) SF (METAMUCIL SF) 3.4 gram [...] hypothyroidism NSTEMI (non-ST elevated myocardial infarction) (CMS/HCC) ([facility]) Takotsubo cardiomyopathy Mitral regurgitation New onset atrial fibrillation (CMS/HCC) ([facility]) Resolved Problems: No resolved hospital problems. Voice recognition software [employer] Direct was used dictate and transcribe this document. Char Conveyor Tender variances may occur. Despite proofreading, typographical errors may occur. Karen Zambrano MD 07/21/2023 4:52 PM RONMENTAL PROTECTION GEOLOGIST * Ave Fagan, SENIOR SOLUTIONS CONSULTANT - 07/21/2023 2:50 PM CST Physical Therapy [...] this the discharge summary Recommendation/Plan PT Recommendation/Plan Nursing Home Facility Patient at high risk for Falls;Readmission;Injury [...] to return to prior level of independence RONMENTAL PROTECTION GEOLOGIST * Chris Weir, [facility] - 07/21/2023 8:53 AM CST Pharmacy Consult [...] > 30 Thank you, Chris Weir RPh [facility] Pharmacy department RONMENTAL PROTECTION GEOLOGIST * Roly Husain MD - 07/21/2023 6:55 [...] SpO2 Min: 93 % Max: 100 % \ Current Medications: Current Facility-Administered Medications Medication Dose [...] 1 tablet at 07/18/23 0520 influenza quadrivalent [id number] (FLUZONE HIGH DOSE) 240 mcg/0.7 mL vaccine [...] Labs: Recent Labs Lab Units 07/20/23 0405 07/19/23 0417 07/18/23 0334 SODIUM mmol/L 134* 133* 140 POTASSIUM PLASMA mmol/L 3.6 3.6 3.8 CHLORIDE mmol/L 96* 95* 101 CO2 mmol/L 29 24 30 BUN SERUM mg/dL 22 20 19 CREATININE mg/dL 0.72 0.77 0.84 SWG-BJK-HNIBXAM mL/min/1.73 m2 87 80 72 GLUCOSE mg/dL 106 101 107 CALCIUM mg/dL 9.2 9.0 8.8 ALBUMIN g/dL 3.1* 3.0* 2.9* PHOSPHORUS PLASMA mg/dL 2.7 2.4 2.6 Recent Labs Lab Units 07/20/23 0405 07/19/23 0417 07/18/23 0334 ALK PHOS Units/L 122 117 119 BILIRUBIN TOTAL mg/dL 0.4 0.3 0.3 TOTAL PROTEIN g/dL 7.1 7.1 6.9 ALT Units/L 18 15 13 AST Units/L 19 23 23 Recent Labs Lab Units 07/17/23 0442 07/16/23 [...] Moderate to severe LV systolic dysfunction noted. Qzcm-nu-jctutcjt MR on echo 18 July 2023. Atrial fibrillation, cardioverted yesterday to atrial flutter. Already on Eliquis 5 mg p.o. b.i.d. and we should continue. Chronic pain syndrome. Hypertension Plan: Continue with front loading a p.o. amiodarone. Wearable defibrillator on discharge. Increase activities with physical therapy. Follow-up with me 17 August 2023. CC: Tristan Watson MD Sargsyan, Narine, MD RONMENTAL PROTECTION GEOLOGIST * Guerda Lewis, RD - 07/20/2023 2:09 [...] (HCC) History of transfusion HX OTHER MEDICAL 01-TRICHOLOGIST HX 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-ORTHOPEDIST HX OTHER MEDICAL [...] PRN Meds: acetaminophen albuterol HYDROcodone-acetaminophen influenza quadrivalent 0520-1100 ondansetron sodium chloride 0.9% Recent Labs Lab Units 07/20/23 0405 07/19/23 0417 07/18/23 0334 07/17/23 0511 SODIUM mmol/L 134* < > 140 138 POTASSIUM PLASMA mmol/L 3.6 < > 3.8 3.8 CHLORIDE mmol/L 96* < > 101 100 CO2 mmol/L 29 < > 30 25 BUN SERUM mg/dL 22 < > 19 18 CREATININE mg/dL 0.72 < > 0.84 1.15* ACB-OCW-YWOGCHO mL/min/1.73 m2 87 < > 72 49 [...] of Weight Used for Estimated Protein : [place] Total Fluid Estimated Needs: 1783.6 Fluid Needs [...] Ensure high protein BID. Encourage PO intake. ASPEN MALNUTRITION ASSESSMENT: Date of completion: 07/20/23 NUTRITION FOCUSED PHYSICAL EXAM: N/A NUTRITION DIAGNOSIS: Nutrition Diagnosis 1: Inadequate oral intake Related to: Loss of appetite Evidenced by: Physical finding INTERVENTION(S): Summary: Encouragement, [place] diet preferences within the limits of nutrition [...] Additional resources are available online from the [place] [employer] at www.heart.org/en/healthy-living/healthy-eating If poor intakes and/or unintended weight loss occur on discharge follow up with primary care physician. Call [facility] Dietitian's office at [phone] for questions about your diet. If interested in nutrition counseling, ask your doctor for referral and call [phone] to make an appointment. Guerda Lewis RDN [facility] Inpatient Office: [phone] Weekend Coverage: [phone] RONMENTAL PROTECTION GEOLOGIST * Ale Lord, PT - 07/20/2023 11:38 [...] index (BMI) of50.0 to 59.9 in adult ([facility]) Iron deficiency anemia due to chronic blood loss Pure hypercholesterolemia B12 deficiency Hypertensive heart disease with congestive heart failure (HCC) At high risk for falls per Rory fall risk assessment scale Acquired hypothyroidism Benign essential tremor Vomiting and diarrhea NSTEMI (non-ST elevated myocardial infarction) ([facility]/HCC) ([facility]) Takotsubo cardiomyopathy Past Medical History: Diagnosis Date Asthma COPD (chronic obstructive pulmonary disease) ([facility]) History of transfusion HX OTHER MEDICAL 01-TRICHOLOGIST HX 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-ORTHOPEDIST HX OTHER MEDICAL [...] note, please consider this the discharge summary. RONMENTAL PROTECTION GEOLOGIST * Maciel Jean MD - 07/20/2023 10:22 [...] 07/19/23699 - 07/20/2365807/20/23699 - 07/21/23 0659 Shift 8789-2753 1359-9796 24 Hour Total 9140-7915 5689-1799 24 Hour Total INTAKE P.O. 350 200 [...] elevated myocardial infarction) (CMS/HCC) (HCC) Takotsubo cardiomyopathy CERTIFIED INDUSTRIAL HYGIENIST: Awake nonfocal Cardiac: Takotsubo cardiomyopathy EF 20 [...] patients and teaching time. Maciel Jean MD RONMENTAL PROTECTION GEOLOGIST RONMENTAL PROTECTION GEOLOGIST * Roly Husain MD - 07/20/2023 7:16 [...] water (premix) 1,000 mg 1,000 mg intravenous DailyHuron Valley-Sinai HospitalSilvia kaufman MD 1,000 mg at 07/18/23 0841 [...] 1 tablet at 07/18/23 0520 influenza quadrivalent [id number] (FLUZONE HIGH DOSE) 240 mcg/0.7 mL vaccine [...] Labs: Recent Labs Lab Units 07/20/23 0405 07/19/23 0417 07/18/23 0334 SODIUM mmol/L 134* 133* 140 POTASSIUM PLASMA mmol/L 3.6 3.6 3.8 CHLORIDE mmol/L 96* 95* 101 CO2 mmol/L 29 24 30 BUN SERUM mg/dL 22 20 19 CREATININE mg/dL 0.72 0.77 0.84 THG-EDQ-MAXBAOB mL/min/1.73 m2 87 80 72 GLUCOSE mg/dL [...] Moderate to severe LV systolic dysfunction noted. Gwcg-hk-hmkawrow MR on echo 18 July 2023. Atrial [...] CC: Tristan Watson MD Masetti, Paolo, MD RONMENTAL PROTECTION GEOLOGIST * Ale Lord, PT - 07/19/2023 12:57 PM CST Physical Therapy Unavailable, getting ready to have midline changed to PICC Ale Lord, GIAN 07/19/23 12:58 PM RONMENTAL PROTECTION GEOLOGIST * Pamela Barrett, [facility] - 07/19/2023 9:53 AM CST Increase apixaban 2.5 mg PO BID to 5 mg PO BID (<80 years old (78 years old); weight>60 kg (135.2 kg); Scr<1.5 (0.77) RONMENTAL PROTECTION GEOLOGIST * Maciel Jean MD - 07/19/2023 9:16 [...] intravenous, Once enoxaparin, 40 mg, subcutaneous, Q12H SAL famotidine, 20 mg, intravenous, Q24H SAL FLUoxetine, 40 mg, oral, Daily miconazole, , topical, BID psyllium (aspartame) SF, 1 packet, oral, Nightly sodium chloride 0.9%, 5-10 mL, intra-catheter, Q8H SAL sodium phosphate - potassium phosphate, 250 mg, oral, TID with meals Subjective: Vitals: 24hr Min/Max: Temp Min: 35.9 ??C (96.7 ??F) Max: 36.2 ??C (97.2 ??F) Pulse Min: 79 Max: 111 BP Min: 100/73 Max: 131/93 Resp Min: 14 Max: 38 SpO2 Min: 91 % Max: 100 % Date 07/18/23 07 - 07/19/23 0659 07/19/23 07 - 07/20/23 0659 Shift [id number] 24 Hour Total 3607-2867 6417-1125 24 Hour Total INTAKE P.O. 480 480 [...] elevated myocardial infarction) (CMS/HCC) (HCC) Takotsubo cardiomyopathy CERTIFIED INDUSTRIAL HYGIENIST: Awake nonfocal Cardiac: Takotsubo cardiomyopathy normal coronary [...] patients and teaching time. Maciel Jean MD RONMENTAL PROTECTION GEOLOGIST * Wan Nava, [facility] - 07/19/2023 7:34 AM CST Pharmacy Consult [...] > 30 Thank you, Wan Nava RPh [facility] Pharmacy department RONMENTAL PROTECTION GEOLOGIST * Roly Husain MD - 07/19/2023 7:05 [...] Lying Pulse: 79 98 96 104 Resp: Temp: 36.1 ??C (97 ??F) TempSrc: Temporal [...] water (premix) 1,000 mg 1,000 mg intravenous DailyAncramSilvia MD 1,000 mg at 07/18/23 0841 dextrose [...] 1 tablet at 07/18/23 0520 influenza quadrivalent [id number] (FLUZONE HIGH DOSE) 240 mcg/0.7 mL vaccine [...] Labs Lab Units 07/18/23 0334 07/17/23 0511 07/16/232202 SODIUM mmol/L 140 138 131* POTASSIUM PLASMA mmol/L 3.8 3.8 5.3* CHLORIDE mmol/L 101 100 94* CO2 mmol/L 30 25 21* BUN SERUM mg/dL 19 18 15 CREATININE mg/dL 0.84 1.15* 0.82 ROJ-OKB-ZMJKFUN mL/min/1.73 m2 72 49 74 GLUCOSE mg/dL 107 163 240* CALCIUM mg/dL 8.8 9.4 9.2 ALBUMIN g/dL 2.9* 3.2* 3.1* PHOSPHORUS PLASMA mg/dL 2.6 3.2 -- Recent Labs Lab Units 07/18/23 0334 07/17/23 0511 07/16/232202 ALK PHOS Units/L 119 139* 154* BILIRUBIN TOTAL mg/dL 0.3 0.4 0.5 TOTAL PROTEIN g/dL 6.9 7.4 7.6 ALT Units/L 13 14 14 AST Units/L 23 22 22 Recent Labs Lab Units 07/17/23 0442 07/16/232202 WBC K/cumm 17.4* 16.6* HEMOGLOBIN g/dL 13.4 [...] Moderate to severe LV systolic dysfunction noted. Jdpu-vj-plofemzr MR on echo 18 July 2023. Atrial [...] CC: Tristan Watson MD Masetti, Paolo, MD RONMENTAL PROTECTION GEOLOGIST * Alvarez Toledo, PT - 07/18/2023 2:44 PM CST Physical Therapy 07/18/23 1444 General PT Missed Visit Reason Procedure/testing/appointment (Patient heading down to get a cardiac Cath, Will check on tomorrow if appropriate) RONMENTAL PROTECTION GEOLOGIST * Roly Husain MD - 07/18/2023 10:52 AM CST Cardiology Progress Note 07/18/23 Chief complaint: Symptoms: Vital Signs: Vitals: 07/18/23 0600 07/18/23 0700 07/18/23 0800 07/18/23 0900 BP: 107/77 123/75 94/61 116/72 BP Location: Right arm Right arm Right arm Patient Position: Lying Lying Lying Pulse: 87 89 92 96 Resp: 20 Temp: (!) 35.9 ??C (96.7 ??F) [...] 1 tablet at 07/18/23 0520 influenza quadrivalent [id number] (FLUZONE HIGH DOSE) 240 mcg/0.7 mL vaccine [...] 18 15 CREATININE mg/dL 0.84 1.15* 0.82 [id number]-RCXASOK mL/min/1.73 m2 72 49 74 GLUCOSE mg/dL 107 163 240* CALCIUM mg/dL 8.8 9.4 9.2 ALBUMIN g/dL 2.9* 3.2* 3.1* PHOSPHORUS PLASMA mg/dL 2.6 3.2 -- Recent Labs Lab Units 07/18/23 0334 07/17/23 0511 07/16/232202 ALK PHOS Units/L 119 139* 154* BILIRUBIN [...] was unremarkable other than accelerated junctional rhythm. Fkje-sw-fhrulhsl MR on echo 18 April 2019. Chronic pain syndrome. Hypertension Plan: Echocardiogram today. Supportive care as per Dr. Jean. CC: Tristan Watson MD Kim, Eileen H., MD RONMENTAL PROTECTION GEOLOGIST * Maciel Jean MD - 07/18/2023 7:52 [...] Min: 93 % Max: 100 % Date 07/17/23699 - 07/18/2365807/18/23699 - 07/19/23 0659 Shift 2260-5312 0752-3982 24 Hour Total 2031-3984 6753-0359 24 Hour Total INTAKE P.O. 350 350 [...] 11/20/2021 A/P: Principal Problem: Vomiting and diarrhea CERTIFIED INDUSTRIAL HYGIENIST: Awake nonfocal Cardiac: Stable demand ischemia troponin [...] patients and teaching time. Maciel Jean MD RONMENTAL PROTECTION GEOLOGIST documented in this encounter H&P Notes * [...] (HCC) History of transfusion HX OTHER MEDICAL 01-TRICHOLOGIST HX 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-ORTHOPEDIST HX OTHER MEDICAL IGT Hypertension Moderate episode of recurrent major depressive disorder ([facility]) 12/05/2017 Past Surgical History Past Surgical History: [...] candidiasis. Do not swallow. 3 each 3 irbesartan (AVAPRO) 300 [...] hour(s)) CBC with auto differential Collection Time: 12/16/23 10:03 PM Result Value Ref Range WBC [...] 04/14/19 Transthoracic Echo Complete W Doppler/CF Narrative [address] [place] [address] Echocardiogram Report Patient Name: PEBBLES LAL : 1945 Study Date: 04/18/2019 08:46:57 Gender: F Tech: KEYBOARD SPECIALIST Location: [place] [address] Ref.Provider: BREANNA BOSTON Height(Cm): 160 BSA: 2.41 [...] time. Maciel Jean MD 07/17/2023 6:54 AM RONMENTAL PROTECTION GEOLOGIST * Gianluca Soriano MD PhD - 07/17/2023 [...] culture. Blood cultures were obtained, and a KEYBOARD SPECIALIST swab RVP was negative. She is being [...] ED MD who spoke with cardiology the java front end web developer felt enoxaparin was sufficient and the patient [...] (HCC) History of transfusion HX OTHER MEDICAL 01-TRICHOLOGIST HX 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-ORTHOPEDIST HX OTHER MEDICAL [...] spray furosemide (LASIX) 20 mg tablet HYDROcodone-acetaminophen (Snyder) 5-325 mg per tablet irbesartan (AVAPRO) 300 [...] activity: Defer Alcohol Use: Not on file RONMENTAL PROTECTION GEOLOGIST RONMENTAL PROTECTION GEOLOGIST documented in this encounter Procedure Notes * [...] Plan Per medical team John Dominguez MD RONMENTAL PROTECTION GEOLOGIST documented in this encounter Consult Notes * [...] culture. Blood cultures were obtained, and a KEYBOARD SPECIALIST swab RVP was negative. She is being admitted to the ICU for close observation. Past Medical History: Diagnosis Date Asthma COPD (chronic obstructive pulmonary disease) (HCC) History of transfusion HX OTHER MEDICAL 01-TRICHOLOGIST HX 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-ORTHOPEDIST HX OTHER MEDICAL [...] -- 100 -- 93 % -- -- 07/16/230 122/79 -- -- 100 -- 94 % [...] 07/17/2023 0911 Last data filed at 07/17/2023 031 Gross per 24 hour Intake -- Output [...] mond thru frid and skip tue and 05/28/21 07/17/23 Breanna Boston MD FLUoxetine (PROzac) [...] day 03/28/23 07/17/23 Tristan Watson MD HYDROcodone-acetaminophen (Snyder) 5-325 mg per tablet Take 1 tablet by mouth every 6 hours as needed for pain 03/28/23 07/17/23 Tristan Watson MD psyllium (MetamuciL) 0.4 gram capsule 1 capsule (0.4 g total) daily 12/30/22 07/17/23 Provider, MD Maryuri No results found for: TROPONINT Recent Labs Lab Units 07/17/23 0511 07/16/23 2203 SODIUM mmol/L 138 131* POTASSIUM PLASMA mmol/L 3.8 5.3* CHLORIDE mmol/L 100 94* CO2 mmol/L 25 21* BUN SERUM mg/dL 18 15 CREATININE mg/dL 1.15* 0.82 ASX-UVB-PDMCBSU mL/min/1.73 m2 49 74 GLUCOSE mg/dL 163 [...] and once echo reports are available CC: RONMENTAL PROTECTION GEOLOGIST documented in this encounter Nursing Notes * Nan Bansal RN - 07/29/2023 2:49 PM CST Called report to joanna Rodgers in [place]. Spoke with oJ GUIDRY. Report given. Life vest on patient. Jo informed of lifevest. States no further questions at this time. RONMENTAL PROTECTION GEOLOGIST * Guerda Richards RN - 07/27/2023 7:25 AM CST 0725 Handoff received. Pt resting in bed. Safety precautions in place. 0930 Assessment complete. Discussed plan of care. Questions answered. [address] Sarah. RONMENTAL PROTECTION GEOLOGIST RONMENTAL PROTECTION GEOLOGIST RONMENTAL PROTECTION GEOLOGIST * Karyna Aguilar RN - 07/24/2023 5:18 AM CST Stafford intact, patent and draining red tinged urine. RONMENTAL PROTECTION GEOLOGIST * Wyatt Rodriguez RN - 07/21/2023 11:12 AM CST Patient did not get life vest today due to being short of breath and unable to sit up. I updated charge nurse, Dr. Husain and Dr. Sepulveda. RONMENTAL PROTECTION GEOLOGIST * Ayala Garcia RN - 07/20/2023 3:43 PM CST Received report from BREA Pierson. Pt transferred to IMU 2620, oriented to room and call light system. RONMENTAL PROTECTION GEOLOGIST * Dangelo Mancilla RN - 07/20/2023 3:34 PM CST Pt transferred via bed on the monitor to imu per md order. Pt no distress noted or voiced. Pt personal belongings present and accounted for per pt. Pt chart and report given to appropriate persons. RONMENTAL PROTECTION GEOLOGIST documented in this encounter ED Notes * [...] (BMI) of50.0 to 59.9 in adult (HCC) 12/07/2018 Recurrent major depressive disorder, in partial remission (HCC) 10/24/2018 Mild persistent asthma without complication 03/14/2018 Chronic stasis dermatitis 03/15/2017 IGT (impaired glucose tolerance) 03/15/2017 Chronic pain syndrome 03/15/2017 PE (physical exam), annual 03/15/2017 Vitamin D deficiency 03/15/2017 Benign hypertension 08/17/2016 Past Medical History: Diagnosis Date Asthma COPD (chronic obstructive pulmonary disease) (HCC) History of transfusion HX OTHER MEDICAL 01-TRICHOLOGIST HX 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-ORTHOPEDIST HX OTHER MEDICAL [...] are negative. Physical Exam ED Triage Vitals [07/16/23 2156] Temp Pulse Resp BP SpO2 36.4 ??C [...] weakness. Psychiatric: Mood and Affect: Mood normal. [facility] Medical Decision Making This is a 78-year-old [...] and/or Complexity of Data Reviewed Independent Historian: carlos alberto External Data Reviewed: labs, radiology, ECG and notes. Labs: ordered. Decision-making details documented in ED Course. Radiology: ordered. ECG/medicine tests: ordered. Risk OTC drugs. Prescription drug management. Decision regarding hospitalization. ED Course as of 07/17/23 0203 Time: 07/16 2219 Value: WBC(!): 16.6 Comment: (Reviewed) By: Silvia Villafana MD Time: 07/16 1719 Comment: EKG done at 11:05 p.m. narrow [...] Cystitis Elevated troponin Silvia Villafana MD 07/17/23202 RONMENTAL PROTECTION GEOLOGIST * Avelina Cristina RN - 07/16/2023 9:54 PM CST Pt presents [facility] with nausea vomiting diarrhea spo2 89% RA RONMENTAL PROTECTION GEOLOGIST documented in this encounter Miscellaneous Notes * Plan of Care - Tristan Akins LCSW - 07/29/2023 10:04 AM CST (9:08 a.m.) ALISA received a text message from Dangelo with [facility] stating that this patient is good to be admitted today. Dangelo then provided the following information pertaining to this patient's admission. Patient will be admitted to room: 115 Please call report to: [phone] Please fax discharge orders and med reconciliation to: [phone] Patient will be admitting to nursing facility in a skilled nursing bed and will need EMS transport. RONMENTAL PROTECTION GEOLOGIST * Plan of Care - Tristan Akins LCSW - 07/29/2023 7:58 AM CST (7:57 a.m.) ALISA sent text message to Dangelo with [facility] letting him know that this buttonhole maker hand is justwanting to check up on possible admission for this patient today. RONMENTAL PROTECTION GEOLOGIST * Plan of Care - Laura Garcia [...] pain. Repositioned q2. Call light within reach. RONMENTAL PROTECTION GEOLOGIST * Plan of Care - Rufina Santamaria [...] has remained safe and free of injury. RONMENTAL PROTECTION GEOLOGIST * Plan of Care - Tristan Akins LCSW - 07/28/2023 10:07 AM CST (2:02 p.m.) ALISA sent text message to patient's spouse, Francesco, at [phone] letting him know the information this buttonhole maker hand received from Dangelo regarding this patient being admitted to [facility] in a private pay situation. (1:57 p.m.) ALISA received a text message from Dangelo with [facility] providing the following information. $260 a day for [facility]. Would need $7,800 up front and we could also help with Medicaid salvador. (1:53 p.m.) ALISA sent a text message to Dangelo with [facility] asking if he received therate for this patient's admission to [facility] in a skilled nursing bed. (12:05 p.m.) ALISA sent an instant message via [employer] to Dangelo with [facility] letting him know that this patient's spouse has identified [facility] as SNF of preference. This buttonhole maker hand explained to Dangelo that [facility] is unable/unwilling to admit this pa tient due to her limited finances and patient's has voiced that he will need to complete a Medicaid application with staff at [facility]. (11:32 a.m.) ALISA spoke with patient's , Francesco, in the solarium on IMU about patient being denied at [facility] due to financial reasons. Patient's spouse was disheartened by this conversation but voiced understanding and identified [facility] as nursing facility of preference because he knows he cannot take this patient home. ALISA spent nearly 30 minutes with patient's spouse. (9:51 a.m.) ALISA received a voice message from Heaven with [facility] stating that this patient's finally called them back and the facility was able to do a financial evaluation with him. Heaven stated that the facility requires evidence of a year's worth of funds and it appears that this patient and her spouse only have approximately a couple of months. [facility] apologized before [facility]?? because they are concerned that they would be stuck with this patient and she would have insufficient funding. RONMENTAL PROTECTION GEOLOGIST RONMENTAL PROTECTION GEOLOGIST RONMENTAL PROTECTION GEOLOGIST RONMENTAL PROTECTION GEOLOGIST * Plan of Care - Aviva Zhong RN - 07/28/2023 7:38 AM CST Patient awaiting a peer to peer evaluation today for potential placement at a shelter facility RONMENTAL PROTECTION GEOLOGIST * Plan of Care - Laura Garcia [...] time. Safety maintained. Call light within reach. RONMENTAL PROTECTION GEOLOGIST * Plan of Care - Guerda Richards [...] noted sleepy and falling asleep durning therapy. RONMENTAL PROTECTION GEOLOGIST * Plan of Care - Tristan Akins LCSW - 07/27/2023 10:14 AM CST (2:52 p.m.) ALISA sent an instant message via [employer] to Dr. Sarah letting him know that this patient's insurance has intent to deny SNF but are offering a peer to peer that must be completed by noon on July. (2:39 p.m.) SW received a photo from Heaven with [facility] providing the following information for patient's physician to complete a [id number]. To complete peer to peer please call: [phone] option 4 Please provide Please include patient's name and date of as well. Peer to peer must be completed by 12:00 p.m. on July for the medical assistant internal medicine will make a determination based upon available information. (2:37 p.m.) ALISA received a phone call from Heaven with [employer] stating that she has received notice from this patient's insurance with intent to deny SNF. Heaven informed this buttonhole maker hand that she will send this buttonhole maker hand a photo including all pertinent information to complete [id number]. (1:14 p.m.) ALISA called Heaven with [employer] on her cell phone to let her know that this buttonhole maker hand spoke with patient's spouse, Francesco ???Demetrius Lal, regarding ability to pay [id number] in the event that this patient would need skilled nursing stay at [facility]. Patient's told this buttonhole maker hand that he could do this temporarily, and this buttonhole maker hand shared this information with Heaven. SW also shared patient's 's contact information so that [facility] can reach out to him. (9:46 a.m.) ALISA received a voice message from Heaven with [facility] stating that the facility has submitted for insurance authorization for this patient, but throughout the referral there are comments about patient's lack of participation with therapy. Heaven added that she does not anticipate receiving insurance authorization and, if they are successful in doing so, it will likely only be good for a couple of days. [facility] is requesting information pertaining to patient's ability to pay privately if she admits to the facility. RONMENTAL PROTECTION GEOLOGIST RONMENTAL PROTECTION GEOLOGIST RONMENTAL PROTECTION GEOLOGIST * Plan of Care - Bruna Hassan [...] and injury in home environment Outcome: Defer RONMENTAL PROTECTION GEOLOGIST * Plan of Viktor - Annie Swain RN - 07/26/2023 5:15 PM CST Goals: [...] within reach. No needs at this time. RONMENTAL PROTECTION GEOLOGIST * Plan of Care - Xiomara Guzman [...] Max A in preparation for toilet transfers RONMENTAL PROTECTION GEOLOGIST * Plan of Care - Tristan Akins LCSW - 07/26/2023 3:35 PM CST (3:35 p.m.) ALISA faxed updated information about this patient to [facility] via [employer]. RONMENTAL PROTECTION GEOLOGIST * Plan of Care - Tristan Akins LCSW - 07/26/2023 11:49 AM CST (11:49 a.m.) ALISA sent an instant message via [employer] to Xiomara Guzman OT, asking if Ave Fagan PTA, had contacted her regarding an OT treatment today. This buttonhole maker hand shared that he spokewith Ave Wilkinsdridge earlier, and that Ave told this buttonhole maker hand that she will speak with Xiomara as neither Ave nor this buttonhole maker hand have seen any OTs other than Xiomara thus far today. RONMENTAL PROTECTION GEOLOGIST * Plan of Care - Ramiro Waters [...] will be avoided or minimized Outcome: Ongoing RONMENTAL PROTECTION GEOLOGIST * Plan of Viktor - Annie Swain [...] at bedside. No needs at this time. RONMENTAL PROTECTION GEOLOGIST * Plan of Care - Tiffany Pappas [...] will be avoided or minimized Outcome: Progressing RONMENTAL PROTECTION GEOLOGIST * Plan of Viktor - Shanell Enriquez [...] and has the call light in reach. RONMENTAL PROTECTION GEOLOGIST * Plan of Care - Karyna Aguilar [...] risk of falls will improve Outcome: Ongoing RONMENTAL PROTECTION GEOLOGIST * Plan of Care - Elizabeth Dunn [...] in bed with call light within reach. RONMENTAL PROTECTION GEOLOGIST * Plan of Care - Kanwal Deleon RN - 07/23/2023 5:19 AM CST Goals: Clinical Goals for the Shift: Pt to remain safe with vss Summary: Pt has been safe this shift. No complaints voiced. Turned for comfort and to maintain skinintegrity. VSS RONMENTAL PROTECTION GEOLOGIST * Plan of Care - Yovani Avila RRT - 07/22/2023 8:26 PM CST Overnight desat study held to be attempted tomorrow night. One machine available for use and prioritized to different pt with pending d/c at this time. Pt instead encouraged to wear bipap while sleeping tonight. Cosigned by Karen Zambrano MD at 07/23/2023 9:34 PM ENVIRONMENTAL PROTECTION GEOLOGIST RONMENTAL PROTECTION GEOLOGIST RONMENTAL PROTECTION GEOLOGIST * Plan of Care - Wyatt Rodriguez [...] vss, remain hemodynamically stable, monotpr for paion RONMENTAL PROTECTION GEOLOGIST * Plan of Care - Tristan Akins LCSW - 07/22/2023 2:29 PM CST (2:43 p.m.) ALISA sent text message to Dr. Zambrano letting her know that this buttonhole maker hand called [employer] to inform them of a change in this patient's condition, and to ask that they postpone their decision about SNF until this patient is medically more appropriate for discharge. This buttonhole maker hand explained that he was trying to help the physician not having to make this call. (2:22 p.m.) ALISA called [employer] peer to peer number at [phone] to share that this patientis currently requiring BiPAP, and that this buttonhole maker hand is asking that the request for SNF be held until patient is in better condition, medically. This buttonhole maker hand left patient's name, date of , member ID, and this buttonhole maker hand's contact information should the medical assistant internal medicine at [employer] requestany additional information. (2:15 p.m.) ALISA called [facility] at [phone] and spoke with Tiffany in admissions. This buttonhole maker hand shared that patient's medical condition has changed and she is now requiring a BiPAP. This buttonhole maker hand spoke with Tiffany about potentially putting a hold on this patient's request for SNF, ratherthan completing a peer to peer when this patient is not medically appropriate for discharge. Tiffany recommended that this buttonhole maker hand attempt to reach out to the medical assistant internal medicine at [employer] to notify them of patient's change in condition. Tiffany also stated that she will be out of office for 10 days but this buttonhole maker hand can reach out to Rima in her absence with any updated notes on this patient. (2:08 p.m.) ALISA received a voice message from Tiffany with [facility] stating that she has received notice from [facility] of intent to deny patient's request for SNF. Tiffany then provided information pertaining to [facility]'s offer for this patient's physician to complete a peer to peer. Peer to peer must be completed by 4:30 p.m. on Saturday, July 22, 2023. Peer to peer contact number: [phone] option 4 RONMENTAL PROTECTION GEOLOGIST RONMENTAL PROTECTION GEOLOGIST RONMENTAL PROTECTION GEOLOGIST * Plan of Care - Tristan Akins LCSW - 07/22/2023 10:44 AM CST (12:00 p.m.) ALISA faxed a copy of this patient's Medicare card to Angi, assistance business integration analyst, [facility] at [phone]. (10:43 a.m.) ALISA called [facility] at [phone] and spoke with Angi, branch assistant business integration analyst, who stated that Shasta submitted for insurance authorization without this patient's Medicare card. Angi asked if this buttonhole maker hand could please fax a copy of this patient's Medicare card to her at [phone] whenever this patient's spouse has arrived and presents this information. RONMENTAL PROTECTION GEOLOGIST RONMENTAL PROTECTION GEOLOGIST * Plan of Care - Laura Garcia [...] able to make needs and wants known. RONMENTAL PROTECTION GEOLOGIST * Plan of Care - Tristan Akins LCSW - 07/21/2023 3:37 PM CST (4:20 p.m.) SW called patient's spouse, Francesco, at [phone] and spoke with him briefly about the possibility of finding this patient's Medicare card. This buttonhole maker hand shared that [facility] has reported they are willing to admit this patient and are going to submit for insurance authorization, but were wondering if this buttonhole maker hand had the patient's Medicare number. Patient's spouse reported that ???when we got our [employer] cards they told us to put the other ones away. I will look this evening to see if I can find it and will be at the hospital tomorrow.?? (3:51 p.m.) ALISA faxed updated information about this patient to [facility] via [employer]. (3:44 p.m.) ALISA received a phone call from Shasta, business integration analyst at [facility], asking this buttonhole maker hand if he happens to have this patient's Medicare ID. Shasta stated that she had this patient's [employer] card is in need of this patient's Medicare card. This buttonhole maker hand reviewed patient'schart and stated that he is not finding this patient's Medicare card. This buttonhole maker hand shared that he can speak with the patient or her about obtaining this information. Shasta stated that she will call [employer] to see, if perhaps, they have the information she needs. (3:33 p.m.) ALISA called [facility] at [phone] and spoke with Tiffany in admissions. Tiffanyasked this buttonhole maker hand if the patient will be discharging on any IV antibiotics. This buttonhole maker hand reviewed patient's chart and stated that the patient is not currently on any IV antibiotics. Tiffany asked that this buttonhole maker hand please send any updated therapy notes if available, and stated that she was submit for [employer] on this patient. RONMENTAL PROTECTION GEOLOGIST RONMENTAL PROTECTION GEOLOGIST * Plan of Care - Wyatt Rodriguez [...] is stable and afebrile at this time. RONMENTAL PROTECTION GEOLOGIST * Plan of Care - Tristan Akins LCSW - 07/21/2023 11:18 AM CST (12:32 p.m.) ALISA Faxed referrals to the following facilities via [employer]. Facilities are listed in order of preference. 1. [facility] 2. [facility] 3. [facility] 4. [facility] 5. [facility] (12:11 p.m.) ALISA received text message from patient's spouse, Francesco, at [phone] identifying the following five facilities as SNFs of preference. Patient's spouse did include the fact that he is waiting to hear from [facility] to see if they will accept [employer]. 1. [facility] 2. [facility] 3. [facility]. [facility] (11:17 a.m.) ALISA submitted patient's PASRR LEVEL I screening (queued for review) and printed patient's Facesheet for OBRA screener. (11:01 a.m.) ALISA went to patient's room to speak with patient's spouse, Francesco ???Demetrius Lal, about his feelings regarding this patient's discharge to home. Patient's spouse reported that he does not feel that he is capable of providing the level of care this patient needs at this time. Patient'sspouse was agreeable to this buttonhole maker hand printing an SNF list and returning to this patient's room. SW printed an SNF list, returned to patient's room, and spoke with patient's spouse about the process of identifying a minimum of 3 to 5 facilities of preference for this buttonhole maker hand to make referrals. Patient's spouse was encouraged to either call or text message his top 3 to 5 facilities of preference for this buttonhole maker hand, and is aware that if none of the top preferences can accept he will have to identify additional shelter facilities. RONMENTAL PROTECTION GEOLOGIST RONMENTAL PROTECTION GEOLOGIST * Plan of Care - Tristan Akins LCSW - 07/21/2023 9:09 AM CST (10:14 a.m.) ALISA attempted to reach patient's spouse, Francesco, at [phone] without success. ALISA did, however, leave a voice message explaining the reason for this buttonhole maker hand's call and asking that Mr. Lal please call this buttonhole maker hand back at his earliest convenience to further [...] worker that comes to her residence. This buttonhole maker hand asked patient if she would, at least, consider working with a home health agency to help work on regaining some strength. Patient voiced that she has worked with home health in the past and is amenable to doing so again in the future. Patient was very pleasant and apologized before stating ???I just want to go home.?? RONMENTAL PROTECTION GEOLOGIST RONMENTAL PROTECTION GEOLOGIST * Plan of Care - Tristan Akins LCSW - 07/21/2023 8:51 AM CST (8:51 a.m.) SW completed patient's PASRR LEVEL I screening (remains in draft). RONMENTAL PROTECTION GEOLOGIST * Plan of Care - Zaria Mitchell [...] pt resting with call light in reach. RONMENTAL PROTECTION GEOLOGIST * Plan of Care - Ayala Garcia [...] make needs known. Call light in reach. RONMENTAL PROTECTION GEOLOGIST * Plan of Care - Bruna Hassan [...] will be avoided or minimized Outcome: Progressing RONMENTAL PROTECTION GEOLOGIST * Plan of Viktor - Kim Lobo RN - 07/19/2023 3:51 [...] MD at bedside; Procedure was completed successfully. RONMENTAL PROTECTION GEOLOGIST * Post-Procedure Note - Camelia Trimble RN - 07/19/2023 1:55 PM ENVIRONMENTAL PROTECTION GEOLOGIST Double lumen PICC inserted in right upper arm using sterile technique. Some resistance threading catheter. Chest x-ray ordered to confirm placement d/t pt in a-fib. Both lumens flush easily with goodblood return. No bleeding or hematoma noted at this time. Pt tolerated procedure well but couldn't tolerate drape over head d/t sob. RONMENTAL PROTECTION GEOLOGIST * Provider Query - Maciel Jean MD [...] clinical impression in detail Respiratory Failure References [employer] Hospitalist Jun 2013 Coding Clinics: 3rd Q 1987, p 7 and 2nd Q 1989, p.20 https://www.cms.gov/iwtktjsb-eji-jvsspsrmp/medicare-learning-network-mln/mlnprod ucts/downloads/rcmy-cnxxpq-xxpcgjj-text-only.pdf From the ICD-10-CM Official Guidelines for Coding [...] medical record. Sincerely, Saranya Shepherd RN, CCDS [phone] Clinical Inspector Plug Seam RONMENTAL PROTECTION GEOLOGIST * Provider Query - Maceil Jean MD - 07/19/2023 12:34 PM CST Specify if the diagnosis of sepsis that is documented in the cardiology progress note on [id number] been confirmed or ruled out after study. [...] medical record. Sincerely, Saranya Shepherd RN, CCDS [phone] Clinical Inspector Plug Seam RONMENTAL PROTECTION GEOLOGIST * Post-Procedure Note - Camelia Trimble RN - 07/19/2023 12:20 PM ENVIRONMENTAL PROTECTION GEOLOGIST Attempted over the wire exchange on left upper arm midline. Was unable to thread guidewire. Possibly pulled back too far on midline. Pulled midline and placed dressing to upper arm. Will attempt placement in right upper arm. Pt tolerated procedure well. RONMENTAL PROTECTION GEOLOGIST * Plan of Care - Delmar Mcdaniel [...] in the 70-90's, comfort and safety maintained. RONMENTAL PROTECTION GEOLOGIST * Pre-Sedation Documentation - John Dominguez MD - 07/18/2023 5:04 PM ENVIRONMENTAL PROTECTION GEOLOGIST Sedation Plan ASA 3 - Severe systemic disease Sedation/Anesthesia Plan - moderate sedation Mallampati class: III. Risks, benefits, and alternatives discussed with patient. RONMENTAL PROTECTION GEOLOGIST * Perioperative Nursing Note - Maninder Ibrahim RN - 07/18/2023 4:33 PM ENVIRONMENTAL PROTECTION GEOLOGIST Bedside report given to Adriana GUIDRY. Puncture site assessed. Site was clean, dry, intact, with no swelling or hematoma present. Patient vital signs stable during transport. Care transferred back to ICU. RONMENTAL PROTECTION GEOLOGIST * Post-Procedure Note - Camelia Trimble RN - 07/18/2023 3:10 PM ENVIRONMENTAL PROTECTION GEOLOGIST Single lumen midline inserted in left upper arm using sterile technique x 2 attempts. First attempthad good blood return but guidewire would not thread. Flushes easily with good blood return. No bleeding or hematoma noted at this time. Pt tolerated procedure well but was unable to cover head d/t pt dyspneic. RONMENTAL PROTECTION GEOLOGIST * Initial Assessments - Aviva Zhong RN - 07/18/2023 2:15 PM CST CM Initial Assessment Interview Note Admission Source: ED EMS Impression: desaturations, nausea, vomiting, diarrhea Plan Includes: Assessment and DC planning Primary Source of Transportation: Does the patient need discharge transport arranged?: No (07/18/231409) Health Insurance Coverage: [employer] Prescription Coverage: yes Pharmacy: [id number] [place] [address] AT [address] & [employer] [address] [facility] [id number] Primary Care Provider: Tristan Watson MD Prior [...] inside or outside Medication management: Independent (07/17/23 1341) SDOH: Transportation: Financial Resource: Housing: Social Connections: Food Insecurity: Alcohol Use: PHQ Screening Potential discharge needs include: Home Health: Physical therapy, Occupational therapy (07/18/231409) Dialysis: Behavioral Health Services: Behavioral Health Services: No (12/18/23 1410) Patient expects to be Discharged to: Private residence, (07/18/23 1410) Additional Information: DC plan discussed with patient in her ICU room. She lives with her and he may be her ride home. If not, she says she can find a ride. She has a private pay home aide Tuesday through Tuesday afternoons for 3 hours [...] as needed. Aviva Zhong RN, BSN, CM RONMENTAL PROTECTION GEOLOGIST RONMENTAL PROTECTION GEOLOGIST * Plan of Care - Jarocho Slaughter [...] No stools overnight. V/S's have been stable. RONMENTAL PROTECTION GEOLOGIST * Plan of Care - Edna Valladares [...] improve to fullest extent possible Outcome: Progressing RONMENTAL PROTECTION GEOLOGIST * Plan of Care - Jarocho Slaughter [...] No phone calls or visitors this shift. RONMENTAL PROTECTION GEOLOGIST documented in this encounter Plan of Treatment Not on file documented as of this encounter Procedures Procedure Name Priority Date/Time Associated Diagnosis Comments POCT GLUCOSE DEVICE Routine 07/29/2023 1 2:07 PM ENVIRONMENTAL PROTECTION GEOLOGIST EGFR Routine 07/29/2023 4:51 AM ENVIRONMENTAL PROTECTION GEOLOGIST CBC WITHOUT DIFFERENTIAL Routine 07/29/2023 4:51 AM ENVIRONMENTAL PROTECTION GEOLOGIST PHOSPHORUS Routine 07/29/2023 4:51 AM ENVIRONMENTAL PROTECTION GEOLOGIST BASIC METABOLIC PANEL Routine 07/29/2023 4:51 AM ENVIRONMENTAL PROTECTION GEOLOGIST EGFR Routine 07/28/2023 3:48 AM ENVIRONMENTAL PROTECTION GEOLOGIST CBC WITHOUT DIFFERENTIAL Routine 07/28/2023 3:48 AM ENVIRONMENTAL PROTECTION GEOLOGIST PHOSPHORUS Routine 07/28/2023 3:48 AM ENVIRONMENTAL PROTECTION GEOLOGIST BASIC METABOLIC PANEL Routine 07/28/2023 3:48 AM ENVIRONMENTAL PROTECTION GEOLOGIST EGFR Routine 07/27/2023 3:53 AM ENVIRONMENTAL PROTECTION GEOLOGIST CBC WITHOUT DIFFERENTIAL Routine 07/27/2023 3:53 AM ENVIRONMENTAL PROTECTION GEOLOGIST PHOSPHORUS Routine 07/27/2023 3:53 AM ENVIRONMENTAL PROTECTION GEOLOGIST BASIC METABOLIC PANEL Routine 07/27/2023 3:53 AM ENVIRONMENTAL PROTECTION GEOLOGIST EGFR Routine 07/26/2023 5:42 AM ENVIRONMENTAL PROTECTION GEOLOGIST CBC WITHOUT DIFFERENTIAL Routine 07/26/2023 5:42 AM ENVIRONMENTAL PROTECTION GEOLOGIST PHOSPHORUS Routine 07/26/2023 5:42 AM ENVIRONMENTAL PROTECTION GEOLOGIST BASIC METABOLIC PANEL Routine 07/26/2023 5:42 AM ENVIRONMENTAL PROTECTION GEOLOGIST EGFR Routine 07/25/2023 8:53 AM ENVIRONMENTAL PROTECTION GEOLOGIST DIFFERENTIAL AUTO Routine 07/25/2023 8:5 3 AM ENVIRONMENTAL PROTECTION GEOLOGIST CBC WITH AUTO DIFFERENTIAL Routine 07/25/2023 8:53 AM ENVIRONMENTAL PROTECTION GEOLOGIST PHOSPHORUS Routine 07/25/2023 8:53 AM ENVIRONMENTAL PROTECTION GEOLOGIST BASIC METABOLIC PANEL Routine 07/25/2023 8:53 AM ENVIRONMENTAL PROTECTION GEOLOGIST EGFR Routine 07/24/2023 4:32 AM ENVIRONMENTAL PROTECTION GEOLOGIST PRO B-TYPE NATRIURETIC PEPTIDE Add-On 07/24/2023 4:32 AM ENVIRONMENTAL PROTECTION GEOLOGIST CBC WITHOUT DIFFERENTIAL Routine 07/24/2023 4:32 AM ENVIRONMENTAL PROTECTION GEOLOGIST PHOSPHORUS Routine 07/24/2023 4:32 AM ENVIRONMENTAL PROTECTION GEOLOGIST MAGNESIUM Routine 07/24/2023 4:32 AM ENVIRONMENTAL PROTECTION GEOLOGIST BASIC METABOLIC PANEL Routine 07/24/2023 4:32 AM ENVIRONMENTAL PROTECTION GEOLOGIST EGFR Routine 07/23/2023 6:34 AM ENVIRONMENTAL PROTECTION GEOLOGIST CBC WITHOUT DIFFERENTIAL Routine 07/23/2023 6:34 AM ENVIRONMENTAL PROTECTION GEOLOGIST PHOSPHORUS Routine 07/23/2023 6:34 AM ENVIRONMENTAL PROTECTION GEOLOGIST BASIC METABOLIC PANEL Routine 07/23/2023 6:34 AM ENVIRONMENTAL PROTECTION GEOLOGIST POCT GLUCOSE DEVICE Routine 07/23/2023 2 :38 AM ENVIRONMENTAL PROTECTION GEOLOGIST PULSE OXIMETRY STUDY Routine 07/22/2023 1:29 PM ENVIRONMENTAL PROTECTION GEOLOGIST BLOOD GAS, ARTERIAL Routine 07/22/2023 1 :08 PM ENVIRONMENTAL PROTECTION GEOLOGIST EGFR Routine 07/22/2023 5:14 AM ENVIRONMENTAL PROTECTION GEOLOGIST CBC WITHOUT DIFFERENTIAL Routine 07/22/2023 5:14 AM ENVIRONMENTAL PROTECTION GEOLOGIST PHOSPHORUS Routine 07/22/2023 5:14 AM ENVIRONMENTAL PROTECTION GEOLOGIST BASIC METABOLIC PANEL Routine 07/22/2023 5:14 AM ENVIRONMENTAL PROTECTION GEOLOGIST EGFR Routine 07/21/2023 6:30 AM ENVIRONMENTAL PROTECTION GEOLOGIST CBC WITHOUT DIFFERENTIAL Routine 07/21/2023 6:30 AM ENVIRONMENTAL PROTECTION GEOLOGIST PHOSPHORUS Routine 07/21/2023 6:30 AM ENVIRONMENTAL PROTECTION GEOLOGIST COMPREHENSIVE METABOLIC PANEL Routine 07/21/2023 6:30 AM ENVIRONMENTAL PROTECTION GEOLOGIST EGFR Routine 07/20/2023 4:05 AM ENVIRONMENTAL PROTECTION GEOLOGIST PHOSPHORUS Routine 07/20/2023 4:05 AM ENVIRONMENTAL PROTECTION GEOLOGIST COMPREHENSIVE METABOLIC PANEL Routine 07/20/2023 4:05 AM ENVIRONMENTAL PROTECTION GEOLOGIST ECG 12-LEAD Routine 07/19/2023 3:34 PM ENVIRONMENTAL PROTECTION GEOLOGIST XR CHEST 1 VIEW ED Urgent/IP Urgent 07/19/2023 2:06 PM ENVIRONMENTAL PROTECTION GEOLOGIST EGFR Routine 07/19/2023 4:17 AM ENVIRONMENTAL PROTECTION GEOLOGIST PHOSPHORUS Routine 07/19/2023 4:17 AM ENVIRONMENTAL PROTECTION GEOLOGIST COMPREHENSIVE METABOLIC PANEL Routine 07/19/2023 4:17 AM ENVIRONMENTAL PROTECTION GEOLOGIST TRANSESOPHAGEAL ECHOCARDIOGRAM (SOPHIE) W POSSIBLE CARDIOVERSION Routine 07/19/2023 12:00 AM ENVIRONMENTAL PROTECTION GEOLOGIST LEFT HEART CATHETERIZATION WITH CORONARY ANGIOGRAPHY AND WITH AND WITHOUT LEFT VENTRICULOGRAM Routine 07/18/2023 4:02 PM ENVIRONMENTAL PROTECTION GEOLOGIST NSTEMI (non-ST elevated myocardial infarction) (CMS/HCC) (HCC) ECG 12-LEAD STAT 07/18/2023 1:59 PM ENVIRONMENTAL PROTECTION GEOLOGIST TRANSTHORACIC ECHO (TTE) COMPLETE W DOPPLER/CF WO CONTRAST Routine 07/18/2023 9:56 AM ENVIRONMENTAL PROTECTION GEOLOGIST EGFR Routine 07/18/2023 3:34 AM ENVIRONMENTAL PROTECTION GEOLOGIST PHOSPHORUS Routine 07/18/2023 3:34 AM ENVIRONMENTAL PROTECTION GEOLOGIST MAGNESIUM Routine 07/18/2023 3:34 AM ENVIRONMENTAL PROTECTION GEOLOGIST COMPREHENSIVE METABOLIC PANEL Routine 07/18/2023 3:34 AM ENVIRONMENTAL PROTECTION GEOLOGIST THYROID FUNCTION CASCADE Routine 07/17/2023 8:27 AM ENVIRONMENTAL PROTECTION GEOLOGIST CORTISOL Routine 07/17/2023 8:27 AM ENVIRONMENTAL PROTECTION GEOLOGIST TROPONIN T HIGH-SENSITIVITY 6-HOUR Routine 07/17/2023 5:11 AM ENVIRONMENTAL PROTECTION GEOLOGIST EGFR Routine 07/17/2023 5:11 AM ENVIRONMENTAL PROTECTION GEOLOGIST PHOSPHORUS Routine 07/17/2023 5:11 AM ENVIRONMENTAL PROTECTION GEOLOGIST MAGNESIUM Routine 07/17/2023 5:11 AM ENVIRONMENTAL PROTECTION GEOLOGIST COMPREHENSIVE METABOLIC PANEL Routine 07/17/2023 5:11 AM ENVIRONMENTAL PROTECTION GEOLOGIST INFECTION PREVENTION MRSA ONLY (STAPHYLOCOCCUS AUREUS) PCR Routine 07/17/2023 4:50 AM ENVIRONMENTAL PROTECTION GEOLOGIST SEPSIS LACTATE WITH REFLEX Timed 07/17/2023 4:42 AM ENVIRONMENTAL PROTECTION GEOLOGIST DIFFERENTIAL AUTO Routine 07/17/2023 4:4 2 AM ENVIRONMENTAL PROTECTION GEOLOGIST CBC WITH AUTO DIFFERENTIAL Routine 07/17/2023 4:42 AM ENVIRONMENTAL PROTECTION GEOLOGIST TROPONIN T HIGH-SENSITIVITY 4-HR Timed 07/17/2023 2:54 AM ENVIRONMENTAL PROTECTION GEOLOGIST APTT STAT 07/17/2023 2:54 AM ENVIRONMENTAL PROTECTION GEOLOGIST PROTIME-INR STAT 07/17/2023 2:54 AM ENVIRONMENTAL PROTECTION GEOLOGIST SEPSIS LACTATE WITH REFLEX STAT 07/17/2023 1:34 AM ENVIRONMENTAL PROTECTION GEOLOGIST ECG 12-LEAD STAT 07/17/2023 1:23 AM ENVIRONMENTAL PROTECTION GEOLOGIST TROPONIN T HIGH-SENSITIVITY 2-HOUR Timed 07/17/2023 12:35 AM ENVIRONMENTAL PROTECTION GEOLOGIST URINALYSIS AND REFLEX TO MICROSCOPIC AND CULTURE STAT 07/17/2023 12:35 AM ENVIRONMENTAL PROTECTION GEOLOGIST URINALYSIS, MICROSCOPIC ONLY STAT 07/17/2023 12:35 AM ENVIRONMENTAL PROTECTION GEOLOGIST URINE CULTURE STAT 07/17/2023 12:35 AM ENVIRONMENTAL PROTECTION GEOLOGIST ECG 12-LEAD STAT 07/16/2023 11:05 PM ENVIRONMENTAL PROTECTION GEOLOGIST TROPONIN T HIGH-SENSITIVITY SERIES (BASELINE, 2HR, 4HR, 6HR) Add-On 07/16/2023 10:49 PM ENVIRONMENTAL PROTECTION GEOLOGIST BLOOD CULTURE STAT 07/16/2023 10:49 PM ENVIRONMENTAL PROTECTION GEOLOGIST BLOOD CULTURE STAT 07/16/2023 10:49 PM ENVIRONMENTAL PROTECTION GEOLOGIST XR CHEST 1 VIEW ED 07/16/2023 10:40 PM ENVIRONMENTAL PROTECTION GEOLOGIST INFLUENZA A/B, RSV, AND COVID-19 PCR Routine 07/16/2023 10:03 PM ENVIRONMENTAL PROTECTION GEOLOGIST EGFR STAT 07/16/2023 10:03 PM ENVIRONMENTAL PROTECTION GEOLOGIST DIFFERENTIAL AUTO STAT 07/16/2023 10: 03 PM ENVIRONMENTAL PROTECTION GEOLOGIST PRO B-TYPE NATRIURETIC PEPTIDE Add-On 07/16/2023 10:03 PM ENVIRONMENTAL PROTECTION GEOLOGIST CBC WITH AUTO DIFFERENTIAL STAT 07/16/2023 10:03 PM ENVIRONMENTAL PROTECTION GEOLOGIST LIPASE STAT 07/16/2023 10:03 PM ENVIRONMENTAL PROTECTION GEOLOGIST COMPREHENSIVE METABOLIC PANEL STAT 07/16/2023 10:03 PM ENVIRONMENTAL PROTECTION GEOLOGIST documented in this encounter Results * (ABNORMAL) POCT glucose (07/29/2023 12:07 PM ENVIRONMENTAL PROTECTION GEOLOGIST) Pathologist [facility] [place] Glucose, POC 110(H) 71 - 98 mg/dL [facility] ([place]) Blood 07/29/2023 12:0 7 PM ENVIRONMENTAL PROTECTION GEOLOGIST 07/29/2023 12:07 PM ENVIRONMENTAL PROTECTION GEOLOGIST us Krzysztof Sarah MD LAB POCT ORDERABLES - DEVICE Fin al Result [facility] ([place]) 1 [facility] [place] [address] * eGFR (07/29/2023 4:51 AM ENVIRONMENTAL PROTECTION GEOLOGIST) Pathologist [facility] [place] eGFR 79 mL/min/1. 73 m2 [facility] ([place]) Comment: Interpretive Data Reference Interval [...] last reviewed 2021. Blood 07/29/2023 4:51 AM ENVIRONMENTAL PROTECTION GEOLOGIST 07/29/2023 4:54 AM ENVIRONMENTAL PROTECTION GEOLOGIST us Karen Zambrano MD LAB BLOOD ORDERABLES Final Re sult [facility] ([place]) 1 [facility] [place] [address] * (ABNORMAL) Basic metabolic panel (07/29/2023 4:51 AM ENVIRONMENTAL PROTECTION GEOLOGIST) Sodium 139 135 - 145 mmol/L [facility] [...] 2022. Calcium 8.9 8.5 - 10.3 mg/dL [facility] ([place] Blood 07/29/2023 4:51 AM ENVIRONMENTAL PROTECTION GEOLOGIST 07/29/2023 4:54 AM ENVIRONMENTAL PROTECTION GEOLOGIST us Karen Zambrano MD LAB BLOOD ORDERABLES Final Re sult [facility] ([facility]) 1 [facility] [place] [address] * (ABNORMAL) CBC without differential (07/29/2023 4:51 AM ENVIRONMENTAL PROTECTION GEOLOGIST) WBC 10.5(H) 3.8 - 9.9 K/cumm [facility] [...] ([place]) MCHC 32.7 32.3 - 35.7 g/dL [facility] ([place]) RDW CV 15.8(H) 11.1 - 14.9 % [facility] ([place]) RDW SD 52.1(H) 35.7 - 48.1 fL [facility] ([place]) NRBC abs 0.02(H) 0.00 - 0.01 K/cumm [facility] ([place]) Blood 07/29/2023 4:51 AM ENVIRONMENTAL PROTECTION GEOLOGIST 07/29/2023 4:54 AM ENVIRONMENTAL PROTECTION GEOLOGIST us Karen Zambrano MD LAB BLOOD ORDERABLES Final Re sult [facility] ([place]) 1 [facility] [place] [employer] [place] [address] * Phosphorus (07/29/2023 4:51 AM ENVIRONMENTAL PROTECTION GEOLOGIST) Phosphorus, pl 2.5 2.3 - 4.5 mg/dL [facility] ([place]) Blood 07/29/2023 4:51 AM ENVIRONMENTAL PROTECTION GEOLOGIST 07/29/2023 4:54 AM ENVIRONMENTAL PROTECTION GEOLOGIST us Gianluca Soriano MD PhD LAB BLOOD ORDERABLES Final Result Performing Organization Address [facility] Co de Phone Number [facility] ([place]) 1 [facility] [place] [address] * eGFR (07/28/2023 3:48 AM ENVIRONMENTAL PROTECTION GEOLOGIST) eGFR 88 mL/min/1. 73 m2 [facility] ([place]) Comment: [...] last reviewed 2021. Blood 07/28/2023 3:48 AM ENVIRONMENTAL PROTECTION GEOLOGIST 07/28/2023 3:53 AM ENVIRONMENTAL PROTECTION GEOLOGIST us Karen Zambrano MD LAB BLOOD ORDERABLES Final Re sult [facility] ([place]) 1 [facility] Department of Laboratories [place], [place] [id number] * (ABNORMAL) Basic metabolic panel (07/28/2023 3:48 AM ENVIRONMENTAL PROTECTION GEOLOGIST) Sodium 140 135 - 145 mmol/L [facility] ([place]) Potassium, pl 3.5 3.3 - 4.9 mmol/L [facility] ([place]) Chloride 98 97 - 110 mmol/L [facility] ([place]) CO2 37(H) 22 - 32 mmol/L [facility] ([place]) Anion gap 5 2 - 15 mmol/L [facility] ([place]) BUN 16 6 - 25 mg/dL [facility] ([place]) Creatinine 0.71 0.60 - 1.10 mg/dL [facility] ([place]) Glucose 96 70 - 199 mg/dL [facility] ([place]) Comment: Interpretive Data Fasting glucose [...] 2022. Calcium 8.7 8.5 - 10.3 mg/dL [facility] ([place]) Blood 07/28/2023 3:48 AM ENVIRONMENTAL PROTECTION GEOLOGIST 07/28/2023 3:53 AM ENVIRONMENTAL PROTECTION GEOLOGIST us Karen Zambrano MD LAB BLOOD ORDERABLES Final Re sult [facility] ([place]) 1 [facility] [place] [address] * (ABNORMAL) CBC without differential (07/28/2023 3:48 AM ENVIRONMENTAL PROTECTION GEOLOGIST) WBC 11.5(H) 3.8 - 9.9 K/cumm [facility] ([place]) Hgb 11.9 11.9 - 15.5 g/dL [facility] ([place]) Hct 36.7 35.6 - 45.5 % [facility] ([place]) Plt 216 150 - 400 [...] NRBC abs 0.03(H) 0.00 - 0.01 K/cumm [facility] ([place]) Blood 07/28/2023 3:48 AM ENVIRONMENTAL PROTECTION GEOLOGIST 07/28/2023 3:53 AM ENVIRONMENTAL PROTECTION GEOLOGIST us Karen Zambrano MD LAB BLOOD ORDERABLES Final Re sult Performing Organization Address [facility]/ZIP Co de Phone Number [facility] ([place]) 1 [facility] [place] [place] [address] * Phosphorus (07/28/2023 3:48 AM ENVIRONMENTAL PROTECTION GEOLOGIST) Phosphorus, pl 2.9 2.3 - 4.5 mg/dL [facility] ([place]) Blood 07/28/2023 3:48 AM ENVIRONMENTAL PROTECTION GEOLOGIST 07/28/2023 3:53 AM ENVIRONMENTAL PROTECTION GEOLOGIST us Gianluca Soriano MD PhD LAB BLOOD ORDERABLES Final Result Performing Organization Address [facility] de Phone Number [facility] ([place]) 1 [facility] [place] [address] * eGFR (07/27/2023 3:53 AM ENVIRONMENTAL PROTECTION GEOLOGIST) eGFR 87 mL/min/1. 73 m2 [facility] ([place]) Comment: Interpretive Data Reference Interval Normal ?>/= [...] last reviewed 2021. Blood 07/27/2023 3:53 AM ENVIRONMENTAL PROTECTION GEOLOGIST 07/27/2023 4:03 AM ENVIRONMENTAL PROTECTION GEOLOGIST us Karen Zambrano MD LAB BLOOD ORDERABLES Final Re sult [facility] ([facility]) 1 [facility] [place] [address] * (ABNORMAL) Basic metabolic panel (07/27/2023 3:53 AM ENVIRONMENTAL PROTECTION GEOLOGIST) Sodium 136 135 - 145 mmol/L [facility] ([place]) Potassium, pl 3.5 3.3 - 4.9 mmol/L [facility] ([place]) Chloride 96(L) 97 - 110 mmol/L [facility] ([place]) CO2 37(H) 22 - 32 mmol/L [facility] ([place]) Anion gap 4 2 - 15 mmol/L [facility] ([place]) [...] [facility] ([place]) Blood 07/27/2023 3:53 AM ENVIRONMENTAL PROTECTION GEOLOGIST 07/27/2023 4:03 AM ENVIRONMENTAL PROTECTION GEOLOGIST us Karen Zambrano MD LAB BLOOD ORDERABLES Final Re sult Performing Organization Address City/[facility]/ZIP Co de Phone Number [facility] ([place]) 1 [facility] [place] [employer] [address] * (ABNORMAL) CBC without differential (07/27/2023 3:53 AM ENVIRONMENTAL PROTECTION GEOLOGIST) WBC 10.9(H) 3.8 - 9.9 K/cumm [facility] [...] 35.7 g/dL [facility] ([place]) RDW CV 14.9 11.1 - 14.9 % [facility] ([place]) RDW SD 50.6(H) 35.7 - 48.1 fL [facility] ([place]) NRBC abs 0.05(H) 0.00 - 0.01 K/cumm [facility] ([place]) Blood 07/27/2023 3:53 AM ENVIRONMENTAL PROTECTION GEOLOGIST 07/27/2023 4:03 AM ENVIRONMENTAL PROTECTION GEOLOGIST us Karen Zambrano MD LAB BLOOD ORDERABLES Final Re sult Performing Organization Address City/[facility]/ZIP Co de Phone Number [facility] ([place]) [address] [place] [address] * Phosphorus (07/27/2023 3:53 AM ENVIRONMENTAL PROTECTION GEOLOGIST) Phosphorus, pl 2.3 2.3 - 4.5 mg/dL [facility] ([place]) Blood 07/27/2023 3:5 3 AM ENVIRONMENTAL PROTECTION GEOLOGIST 07/27/2023 4:03 AM ENVIRONMENTAL PROTECTION GEOLOGIST us Gianluca Soriano MD PhD LAB BLOOD ORDERABLES Final Result [facility] ([place]) 1 [place] [address] * eGFR (07/26/2023 5:42 AM ENVIRONMENTAL PROTECTION GEOLOGIST) eGFR 81 mL/min/1. 73 m2 [facility] ([place]) Comment: Interpretive Data Reference Interval Normal ?>/= [...] last reviewed 2021. Blood 07/26/2023 5:42 AM ENVIRONMENTAL PROTECTION GEOLOGIST 07/26/2023 5:44 AM ENVIRONMENTAL PROTECTION GEOLOGIST Karen Zambrano MD LAB BLOOD ORDERABLES Final Re sult [facility] ([place]) 1 [facility] [place] [address] * (ABNORMAL) Basic metabolic panel (07/26/2023 5:42 AM ENVIRONMENTAL PROTECTION GEOLOGIST) Sodium 139 135 - 145 mmol/L [facility] ([place]) Potassium, pl 3.6 3.3 - 4.9 mmol/L [facility] ([place]) Chloride 96(L) 97 - 110 mmol/L [facility] ([place]) CO2 34(H) 22 - 32 mmol/L [facility] ([place]) Anion gap 9 2 - 15 mmol/L [facility] ([place]) BUN 18 6 - 25 mg/dL [facility] ([place]) Creatinine 0.76 0.60 - 1.10 mg/dL [facility] ([place]) Glucose 95 70 - 199 mg/dL [facility] ([place]) [...] [facility] ([place]) Blood 07/26/2023 5:42 AM ENVIRONMENTAL PROTECTION GEOLOGIST 07/26/2023 5:44 AM ENVIRONMENTAL PROTECTION GEOLOGIST Karen Zambrano MD LAB BLOOD ORDERABLES Final Re sult [facility] ([place]) 1 [facility] [place] [address] * (ABNORMAL) CBC without differential (07/26/2023 5:42 AM ENVIRONMENTAL PROTECTION GEOLOGIST) WBC 11.8(H) 3.8 - 9.9 K/cumm [facility] [...] [facility] ([place]) Blood 07/26/2023 5:42 AM ENVIRONMENTAL PROTECTION GEOLOGIST 07/26/2023 5:44 AM ENVIRONMENTAL PROTECTION GEOLOGIST us Karen Zambrano MD LAB BLOOD ORDERABLES Final Re sult [facility] ([place]) 1 [facility] [place] [address] * Phosphorus (07/26/2023 5:42 AM ENVIRONMENTAL PROTECTION GEOLOGIST) Pathologist [facility] [place] Phosphorus, pl 2.9 2.3 - 4.5 mg/dL [facility] ([place]) Blood 07/26/2023 5:42 AM ENVIRONMENTAL PROTECTION GEOLOGIST 07/26/2023 5:44 AM ENVIRONMENTAL PROTECTION GEOLOGIST us Gianluca Soriano MD PhD LAB BLOOD ORDERABLES Final Result Performing Organization Address [facility] Co de Phone Number [facility] ([place]) 1 [facility] [place] [address] * eGFR (07/25/2023 8:53 AM ENVIRONMENTAL PROTECTION GEOLOGIST) eGFR 81 mL/min/1. 73 m2 [facility] ([facility]) Comment: Interpretive Data Reference Interval Normal ?>/= [...] last reviewed 2021. Blood 07/25/2023 8:53 AM ENVIRONMENTAL PROTECTION GEOLOGIST 07/25/2023 8:56 AM ENVIRONMENTAL PROTECTION GEOLOGIST us Karen Zambrano MD LAB BLOOD ORDERABLES Final Re sult Performing Organization Address [facility]/ZIP Co de Phone Number [facility] ([place]) 1 [facility] Department [place] [address] * (ABNORMAL) Differential, auto (07/25/2023 8:53 AM ENVIRONMENTAL PROTECTION GEOLOGIST) Neutrophil abs 8.5(H) 1.5 - 6.5 K/cumm [...] revised on 2017. Blood 07/25/2023 8:53 AM ENVIRONMENTAL PROTECTION GEOLOGIST 07/25/2023 8:56 AM ENVIRONMENTAL PROTECTION GEOLOGIST Karen Zambrano MD LAB BLOOD ORDERABLES Final Re sult Performing Organization Address City/[facility]/ZIP Co de Phone Number [facility] ([place]) 1 [facility] [place] [address] * Phosphorus (07/25/2023 8:53 AM ENVIRONMENTAL PROTECTION GEOLOGIST) Phosphorus, pl 2.5 2.3 - 4.5 mg/dL [facility] ([place]) Blood 07/25/2023 8:53 AM ENVIRONMENTAL PROTECTION GEOLOGIST 07/25/2023 8:56 AM ENVIRONMENTAL PROTECTION GEOLOGIST Karen Zambrano MD LAB BLOOD ORDERABLES Final Re sult Performing Organization Address [facility] Co de Phone Number [facility] ([place]) 1 [facility] [place] [employer] [place] [address] * (ABNORMAL) Basic metabolic panel (07/25/2023 8:53 AM ENVIRONMENTAL PROTECTION GEOLOGIST) Sodium 137 135 - 145 mmol/L [facility] ([place]) Potassium, pl 4.0 3.3 - 4.9 mmol/L [facility] ([place]) Chloride 96(L) 97 - 110 mmol/L [facility] ([place]) CO2 35(H) 22 - 32 mmol/L [facility] ([place] Anion gap 6 2 - 15 mmol/L [facility] ([place]) BUN 21 6 - 25 mg/dL [facility] ([place]) Creatinine 0.76 0.60 - 1.10 mg/dL [facility] ([place]) Glucose 101 70 - 199 mg/dL [facility] ([place]) Comment: Interpretive Data Fasting glucose [...] - 10.3 mg/dL [facility] ([place]) Blood 07/25/2023 8:53 AM ENVIRONMENTAL PROTECTION GEOLOGIST 07/25/2023 8:56 AM ENVIRONMENTAL PROTECTION GEOLOGIST us Karen Zambrano MD LAB BLOOD ORDERABLES Final Re sult [facility] ([place]) 1 [facility] [place] [address] * (ABNORMAL) CBC with auto differential (07/25/2023 8:53 AM ENVIRONMENTAL PROTECTION GEOLOGIST) WBC 12.4(H) 3.8 - 9.9 K/cumm [facility] [...] [facility] ([place]) Blood 07/25/2023 8:53 AM ENVIRONMENTAL PROTECTION GEOLOGIST 07/25/2023 8:56 AM ENVIRONMENTAL PROTECTION GEOLOGIST us Karen Zambrano MD LAB BLOOD ORDERABLES Final Re sult [facility] ([facility]) 1 [facility] [place] [address] * (ABNORMAL) Pro B-type natriuretic peptide (07/24/2023 4:32 AM ENVIRONMENTAL PROTECTION GEOLOGIST) NT-proBNP 18,259(H) <=450 pg/mL [facility] ([facility]) Comment: Interpretive Comments: A. Dyspnea in Acute [...] Revised Date: 2018. Blood 07/24/2023 4:32 AM ENVIRONMENTAL PROTECTION GEOLOGIST 07/24/2023 9:36 AM ENVIRONMENTAL PROTECTION GEOLOGIST us Karen Zambrano MD LAB BLOOD ORDERABLES Final Re sult [facility] ([facility]) 1 [facility] [place] [address] * eGFR (07/24/2023 4:32 AM ENVIRONMENTAL PROTECTION GEOLOGIST) eGFR 80 mL/min/1. 73 m2 [facility] ([facility]) Comment: Interpretive Data Reference Interval Normal ?>/= [...] last reviewed 2021. Blood 07/24/2023 4:32 AM ENVIRONMENTAL PROTECTION GEOLOGIST 07/24/2023 4:43 AM ENVIRONMENTAL PROTECTION GEOLOGIST us Karen Zambrano MD LAB BLOOD ORDERABLES Final Re sult [facility] ([place]) 1 [facility] [place] [address] * (ABNORMAL) Basic metabolic panel (07/24/2023 4:32 AM ENVIRONMENTAL PROTECTION GEOLOGIST) Sodium 136 135 - 145 mmol/L [facility] ([place]) [...] [facility] ([place]) Blood 07/24/2023 4:32 AM ENVIRONMENTAL PROTECTION GEOLOGIST 07/24/2023 4:43 AM ENVIRONMENTAL PROTECTION GEOLOGIST Karen Zambrano MD LAB BLOOD ORDERABLES Final Re sult [facility] ([place]) 1 [facility] [place] [address] * (ABNORMAL) CBC without differential (07/24/2023 4:32 AM ENVIRONMENTAL PROTECTION GEOLOGIST) WBC 13.0(H) 3.8 - 9.9 K/cumm [facility] [...] NRBC abs 0.26(H) 0.00 - 0.01 K/cumm [facility] ([place]) Blood 07/24/2023 4:32 AM ENVIRONMENTAL PROTECTION GEOLOGIST 07/24/2023 4:43 AM ENVIRONMENTAL PROTECTION GEOLOGIST Karen Zambrano MD LAB BLOOD ORDERABLES Final Re sult [facility] ([place]) [address] [facility] [place] [employer] [place] [address] * Phosphorus (07/24/2023 4:32 AM ENVIRONMENTAL PROTECTION GEOLOGIST) Phosphorus, pl 2.3 2.3 - 4.5 mg/dL [facility] ([place]) Blood 07/24/2023 4:32 AM ENVIRONMENTAL PROTECTION GEOLOGIST 07/24/2023 4:43 AM ENVIRONMENTAL PROTECTION GEOLOGIST us Gianluca Soriano MD PhD LAB BLOOD ORDERABLES Final Result [facility] ([place]) 1 [facility] [place] [address] * Magnesium (07/24/2023 4:32 AM ENVIRONMENTAL PROTECTION GEOLOGIST) Pathologist [facility] Magnesium 2.0 1.4 - 2.5 mg/dL [facility] ([place]) Blood 07/24/2023 4:32 AM ENVIRONMENTAL PROTECTION GEOLOGIST 07/24/2023 4:43 AM ENVIRONMENTAL PROTECTION GEOLOGIST us Karen Zambrano MD LAB BLOOD ORDERABLES Final Re sult Performing Organization Address [facility] Co de Phone Number [facility] ([place]) [address] [facility] [place] [place] [address] * eGFR (07/23/2023 6:34 AM ENVIRONMENTAL PROTECTION GEOLOGIST) eGFR 90 mL/min/1. 73 m2 [facility] ([place]) Comment: Interpretive Data Reference Interval Normal ?>/= [...] last reviewed 2021. Blood 07/23/2023 6:34 AM ENVIRONMENTAL PROTECTION GEOLOGIST 07/23/2023 6:42 AM ENVIRONMENTAL PROTECTION GEOLOGIST us Karen Zambrano MD LAB BLOOD ORDERABLES Final Re sult [facility] ([place]) 1 [facility] [place] [address] * (ABNORMAL) Basic metabolic panel (07/23/2023 6:34 AM ENVIRONMENTAL PROTECTION GEOLOGIST) Sodium 135 135 - 145 mmol/L [facility] ([place]) Potassium, pl 4.2 3.3 - [...] 2022. Calcium 8.7 8.5 - 10.3 mg/dL [facility] ([place]) Blood 07/23/2023 6:34 AM ENVIRONMENTAL PROTECTION GEOLOGIST 07/23/2023 6:42 AM ENVIRONMENTAL PROTECTION GEOLOGIST Karen Zambrano MD LAB BLOOD ORDERABLES Final Re sult Performing Organization Address City/[facility]/ZIP Co de Phone Number [facility] ([place]) 1 [facility] [place] [address] * (ABNORMAL) CBC without differential (07/23/2023 6:34 AM ENVIRONMENTAL PROTECTION GEOLOGIST) WBC 13.0(H) 3.8 - 9.9 K/cumm [facility] [...] 48.1 fL [facility] ([place]) NRBC abs 0.20(H) 0.00 - 0.01 K/cumm [facility] ([place]) Blood 07/23/2023 6:34 AM ENVIRONMENTAL PROTECTION GEOLOGIST 07/23/2023 6:42 AM ENVIRONMENTAL PROTECTION GEOLOGIST Kraen Zambrano MD LAB BLOOD ORDERABLES Final Re sult Performing Organization Address City/[facility]/ZIP Co de Phone Number [facility] ([place]) 1 [facility] [place] [place] [address] * Phosphorus (07/23/2023 6:34 AM ENVIRONMENTAL PROTECTION GEOLOGIST) Phosphorus, pl 2.6 2.3 - 4.5 mg/dL [facility] ([place]) Blood 07/23/2023 6:34 AM ENVIRONMENTAL PROTECTION GEOLOGIST 07/23/2023 6:42 AM ENVIRONMENTAL PROTECTION GEOLOGIST Gianluca Soriano MD PhD LAB BLOOD ORDERABLES Final Result [facility] ([place]) 1 [facility] [place] [place] [address] * POCT glucose (07/23/2023 2:38 AM ENVIRONMENTAL PROTECTION GEOLOGIST) Pathologist [facility] [place] Glucose, POC 90 71 - 98 mg/dL [facility] ([place]) Blood 07/23/2023 2:38 AM ENVIRONMENTAL PROTECTION GEOLOGIST 07/23/2023 2:38 AM ENVIRONMENTAL PROTECTION GEOLOGIST Karen Zambrano MD LAB POCT ORDERABLES - DEVICE Final Result Performing Organization Address City/[facility] Co de Phone Number [facility] ([place]) 1 [facility] [place] [address] * (ABNORMAL) Blood gas, arterial (07/22/2023 1:08 PM ENVIRONMENTAL PROTECTION GEOLOGIST) pH, Art 7.40 7.35 - 7.45 [facility] ([place]) PCO2, Arterial 48(H) 35 - 45 mmHg [facility] ([place]) PO2, Arterial 69(L) 83 - 108 mmHg [facility] ([place]) HCO3 Art (Calculated) 29 20 - 30 mmol/L [facility] ([place]) BE, art 4 mmol/L [facility] ([place]) Comment: Interpretive Data No Reference Range Established Current Interpretive Data was last revised on 2017 O2 Sat Art (Measured) 94 90 - 95 % [facility] ([place]) Blood 07/22/2023 1:08 PM ENVIRONMENTAL PROTECTION GEOLOGIST 07/22/2023 1:11 PM ENVIRONMENTAL PROTECTION GEOLOGIST Karen Zambrano MD LAB BLOOD ORDERABLES Final Re sult Performing Organization Address City/[facility]/ZIP Co de Phone Number [facility] ([place]) 1 [facility] [place] [address] * eGFR (07/22/2023 5:14 AM ENVIRONMENTAL PROTECTION GEOLOGIST) eGFR 82 mL/min/1. 73 m2 [facility] ([facility]) Comment: Interpretive Data Reference Interval Normal ?>/= [...] last reviewed 2021. Blood 07/22/2023 5:14 AM ENVIRONMENTAL PROTECTION GEOLOGIST 07/22/2023 5:21 AM ENVIRONMENTAL PROTECTION GEOLOGIST us Karen Zambrano MD LAB BLOOD ORDERABLES Final Re sult [facility] ([place]) 1 [facility] [place] [address] * (ABNORMAL) Basic metabolic panel (07/22/2023 5:14 AM ENVIRONMENTAL PROTECTION GEOLOGIST) Sodium 134(L) 135 - 145 mmol/L [facility] [...] 2022. Calcium 8.8 8.5 - 10.3 mg/dL [facility] ([place]) Blood 07/22/2023 5:14 AM ENVIRONMENTAL PROTECTION GEOLOGIST 07/22/2023 5:21 AM ENVIRONMENTAL PROTECTION GEOLOGIST Karen Zambrano MD LAB BLOOD ORDERABLES Final Re sult [facility] ([place]) 1 [facility] [place] [address] * (ABNORMAL) CBC without differential (07/22/2023 5:14 AM ENVIRONMENTAL PROTECTION GEOLOGIST) WBC 13.0(H) 3.8 - 9.9 K/cumm [facility] ([place]) Hgb 13.1 11.9 - 15.5 g/dL [facility] ([place]) Hct 38.3 35.6 - 45.5 % [facility] ([place]) Plt 379 150 - 400 K/cumm [facility] ([place]) MPV 8.9(L) 9.1 - 12.3 fL [facility] ([place]) RBC 4.07 3.90 - 5.20 M/cumm [facility] ([place]) MCV 94.1 81.3 - 96.4 fL [facility] ([place]) MCH 32.2 27.1 - 33.3 pg [facility] ([place]) MCHC 34.2 32.3 - 35.7 g/dL [facility] ([place]) RDW CV 13.7 11.1 - 14.9 % [facility] ([place]) RDW SD 46.8 35.7 - 48.1 fL [facility] ([place]) NRBC abs 0.13(H) 0.00 - 0.01 K/cumm [facility] ([place]) Blood 07/22/2023 5:14 AM ENVIRONMENTAL PROTECTION GEOLOGIST 07/22/2023 5:21 AM ENVIRONMENTAL PROTECTION GEOLOGIST us Karen Zambrano MD LAB BLOOD ORDERABLES Final Re sult [facility] ([place]) 1 [facility] [place] [address] * Phosphorus (07/22/2023 5:14 AM ENVIRONMENTAL PROTECTION GEOLOGIST) Phosphorus, pl 2.6 2.3 - 4.5 mg/dL [facility] ([place]) Blood 07/22/2023 5:14 AM ENVIRONMENTAL PROTECTION GEOLOGIST 07/22/2023 5:21 AM ENVIRONMENTAL PROTECTION GEOLOGIST us Gianluca Soriano MD PhD LAB BLOOD ORDERABLES Final Result [facility] ([place]) 1 [facility] [place] [address] * (ABNORMAL) CBC without differential (07/21/2023 6:30 AM ENVIRONMENTAL PROTECTION GEOLOGIST) WBC 12.5(H) 3.8 - 9.9 K/cumm [facility] ([place]) Hgb 12.7 11.9 - 15.5 g/dL [facility] ([place]) Hct 38.6 35.6 - 45.5 % [facility] ([place]) Plt 406(H) 150 - 400 K/cumm [facility] ([place]) MPV 9.4 9.1 - 12.3 fL [facility] ([place]) RBC 4.03 3.90 - 5.20 M/cumm [facility] ([place]) MCV 95.8 81.3 - 96.4 fL [facility] ([place]) MCH 31.5 27.1 - 33.3 pg [facility] ([place]) MCHC 32.9 32.3 - 35.7 g/dL [facility] ([place]) RDW CV 13.9 11.1 - 14.9 % [facility] ([place]) RDW SD 49.3(H) 35.7 - 48.1 fL [facility] ([place]) NRBC abs 0.06(H) 0.00 - 0.01 K/cumm [facility] ([place]) Blood 07/21/2023 6:30 AM ENVIRONMENTAL PROTECTION GEOLOGIST 07/21/2023 9:28 AM ENVIRONMENTAL PROTECTION GEOLOGIST us Karen Zambrano MD LAB BLOOD ORDERABLES Final Re sult [facility] ([place]) 1 [facility] [place] [address] * eGFR (07/21/2023 6:30 AM ENVIRONMENTAL PROTECTION GEOLOGIST) eGFR 82 mL/min/1. 73 m2 [facility] ([place]) Comment: [...] last reviewed 2021. Blood 07/21/2023 6:30 AM ENVIRONMENTAL PROTECTION GEOLOGIST 07/21/2023 6:38 AM ENVIRONMENTAL PROTECTION GEOLOGIST us Maciel Jean MD LAB BLOOD ORDERABLES Final Resu lt [facility] ([facility]) 1 [facility] [place] [address] * (ABNORMAL) Comprehensive metabolic panel (07/21/2023 6:30 AM ENVIRONMENTAL PROTECTION GEOLOGIST) Sodium 131(L) 135 - 145 mmol/L [facility] ([place]) Potassium, pl 3.9 3.3 - 4.9 mmol/L [facility] ([place]) Chloride 94(L) 97 - 110 mmol/L [facility] ([place]) CO2 27 22 - 32 mmol/L [facility] ([place]) Anion gap 10 2 - 15 mmol/L [facility] ([place]) BUN 25 6 - 25 mg/dL [facility] ([place]) Creatinine 0.75 0.60 - 1.10 mg/dL [facility] ([place]) Glucose 105 70 - 199 mg/dL [facility] ([place]) Comment: Interpretive Data Fasting glucose [...] [facility] ([place]) Blood 07/21/2023 6:30 AM ENVIRONMENTAL PROTECTION GEOLOGIST 07/21/2023 6:38 AM ENVIRONMENTAL PROTECTION GEOLOGIST us Maciel Jean MD LAB BLOOD ORDERABLES Final Resu lt [facility] ([place]) 1 [facility] [place] [address] * Phosphorus (07/21/2023 6:30 AM ENVIRONMENTAL PROTECTION GEOLOGIST) Phosphorus, pl 2.3 2.3 - 4.5 mg/dL [facility] ([place]) Blood 07/21/2023 6:3 0 AM ENVIRONMENTAL PROTECTION GEOLOGIST 07/21/2023 6:38 AM ENVIRONMENTAL PROTECTION GEOLOGIST us Gianluca Soriano MD PhD LAB BLOOD ORDERABLES Final Result [facility] ([place]) 1 [facility] [place] [address] * eGFR (07/20/2023 4:05 AM ENVIRONMENTAL PROTECTION GEOLOGIST) eGFR 87 mL/min/1. 73 m2 [facility] ([place]) Comment: Interpretive Data Reference Interval [...] last reviewed 2021. Blood 07/20/2023 4:05 AM ENVIRONMENTAL PROTECTION GEOLOGIST 07/20/2023 4:32 AM ENVIRONMENTAL PROTECTION GEOLOGIST us Maciel Jean MD LAB BLOOD ORDERABLES Final Resu lt [facility] ([place]) 1 [facility] [place] [address] * (ABNORMAL) Comprehensive metabolic panel (07/20/2023 4:05 AM ENVIRONMENTAL PROTECTION GEOLOGIST) Sodium 134(L) 135 - 145 mmol/L [facility] [...] [facility] ([place]) Blood 07/20/2023 4:05 AM ENVIRONMENTAL PROTECTION GEOLOGIST 07/20/2023 4:32 AM ENVIRONMENTAL PROTECTION GEOLOGIST us Maciel Jean MD LAB BLOOD ORDERABLES Final Resu lt [facility] ([place]) 1 [facility] Department of Laboratories [place], [place] [id number] * Phosphorus (07/20/2023 4:05 AM ENVIRONMENTAL PROTECTION GEOLOGIST) Phosphorus, pl 2.7 2.3 - 4.5 mg/dL [facility] ([place]) Blood 07/20/2023 4:05 AM ENVIRONMENTAL PROTECTION GEOLOGIST 07/20/2023 4:32 AM ENVIRONMENTAL PROTECTION GEOLOGIST us Gianluca Soriano MD PhD LAB BLOOD ORDERABLES Final Result [facility] ([place]) 1 [facility] [place] [address] * ECG 12 lead (07/19/2023 3:34 PM ENVIRONMENTAL PROTECTION GEOLOGIST) 07/19/2023 3:34 PM ENVIRONMENTAL PROTECTION GEOLOGIST Narrative [facility] - 07/20/2023 7:55 AM ENVIRONMENTAL PROTECTION GEOLOGIST Vent Rate: 70 bpm RR Interval: 846 msec WA Interval: 0 msec QRS Duration: 154 msec QT Interval: 465 msec QTC Interval: 487 msec P-R-T [place]: [id number] - 69 - 195 degrees IMPRESSION: ATRIAL FLUTTER LEFT BUNDLE BRANCH BLOCK ??[120+ ms QRS DURATION, 80+ ms Q/S IN V1/V2, 85+ ms R IN I/aVL/V5/V6] ABNORMAL ECG Electronically Signed By: John Dominguez MD us Roly Husain MD ECG ORDERABLES Final Result Performing Organization Address [facility] Co de Phone Number [employer] [facility] * XR Chest 1 View (07/19/2023 2:06 PM ENVIRONMENTAL PROTECTION GEOLOGIST) Anatomical Region Laterality Modality Body, Chest N/A Computed Radiogr aphy 07/19/2023 2:13 PM ENVIRONMENTAL PROTECTION GEOLOGIST Narrative 07/19/2023 2:14 PM ENVIRONMENTAL PROTECTION GEOLOGIST EXAM DESCRIPTION: XR CHEST 1 VIEW REASON [...] 2:14 PM - Electronically signed by ??Blaze TURPIN: DYANA D: ??07/19/2023 2:14 PM T: ??07/19/2023 2:14 PM Report ID: [id number] Reading Location: ??[id number] Procedure Note Blaze Schwartz MD - 07/19/2023 [...] 2:14 PM - Electronically signed by Blaze TURPIN: DYANA Report ID: [id number] Reading Location: [id number] us Maciel Jean MD IMG XR PROCEDURES Final Result * eGFR (07/19/2023 4:17 AM ENVIRONMENTAL PROTECTION GEOLOGIST) Pathologist [facility] [place] eGFR 80 mL/min/1. 73 m2 [facility] ([place]) Comment: [...] last reviewed 2021. Blood 07/19/2023 4:17 AM ENVIRONMENTAL PROTECTION GEOLOGIST 07/19/2023 4:23 AM ENVIRONMENTAL PROTECTION GEOLOGIST us Maciel Jean MD LAB BLOOD ORDERABLES Final Resu lt [facility] ([place]) 1 [facility] [place] [address] * (ABNORMAL) Comprehensive metabolic panel (07/19/2023 4:17 AM ENVIRONMENTAL PROTECTION GEOLOGIST) Sodium 133(L) 135 - 145 mmol/L [facility] ([place]) Potassium, pl 3.6 3.3 - 4.9 mmol/L [facility] ([place]) Chloride 95(L) 97 - 110 mmol/L [facility] ([place]) CO2 24 22 - 32 mmol/L [facility] ([place]) Anion gap 15 2 - 15 mmol/L [facility] ([place]) BUN 20 6 - 25 mg/dL [facility] ([place]) Creatinine 0.77 0.60 - 1.10 mg/dL [facility] ([place]) Glucose 101 70 - 199 [...] [facility] ([place]) Blood 07/19/2023 4:17 AM ENVIRONMENTAL PROTECTION GEOLOGIST 07/19/2023 4:23 AM ENVIRONMENTAL PROTECTION GEOLOGIST us Maciel Jean MD LAB BLOOD ORDERABLES Final Resu lt [facility] ([place]) 1 [facility] [place] [address] * Phosphorus (07/19/2023 4:17 AM ENVIRONMENTAL PROTECTION GEOLOGIST) Phosphorus, pl 2.4 2.3 - 4.5 mg/dL [facility] ([place]) Blood 07/19/2023 4:17 AM ENVIRONMENTAL PROTECTION GEOLOGIST 07/19/2023 4:23 AM ENVIRONMENTAL PROTECTION GEOLOGIST us Gianluca Soriano MD PhD LAB BLOOD ORDERABLES Final Result [facility] ([place]) 1 [facility] [place] [address] * Transesophageal Echocardiogram (SOPHIE) W Possible Cardioversion (07/19/2023 12:00 AM ENVIRONMENTAL PROTECTION GEOLOGIST) Anatomical Region Laterality Modality Ultrasound 07/19/2023 Narrative 07/20/2023 9:08 AM ENVIRONMENTAL PROTECTION GEOLOGIST [employer] Job ID: [id number] [employer] Document ID: [id number] Dictated date/time: [id number] NAME OF PROCEDURE 1. Transesophageal echocardiogram. 2. [...] a few weeks. Job ID/Internal Job ID: ??[id number] us Roly Husain MD CV ECHO PROCEDURES Final Resu lt * LEFT HEART CATHETERIZATION WITH CORONARY ANGIOGRAPHY AND WITH AND WITHOUT LEFT VENTRICULOGRAM (07/18/2023 4:02 PM ENVIRONMENTAL PROTECTION GEOLOGIST) Anatomical Region Laterality Modality X-Ray Angiograph y 07/18/2023 Narrative 07/19/2023 1:46 PM ENVIRONMENTAL PROTECTION GEOLOGIST [employer] Job ID: [id number] [employer] Document ID: [id number] Dictated date/time: [id number] CARDIAC CATHETERIZATION ?? A 78-year-old with obesity and shortness of breath. ??Echocardiogram showed severe segmental LV dysfunction. ??She is now having chest pain. ??She was referred for catheterization. INDICATION FOR PROCEDURE Takotsubo cardiomyopathy. PROCEDURE PERFORMED Left heart catheterization, selective coronary angiography, left ventriculography. After obtaining informed consent, patient was brought to the cardiac chemistry laboratory technician. ?She was prepped and draped in the usual sterile fashion. ?? Conscious sedation was administered by the chemistry laboratory technician staff under my supervision. ??A total of 0.5 mg Versed and 25 mcg of fentanyl were given. ?? See procedure log for further details. ??Total sedation time was 16 minutes. ??A 6-[place]ankan sheath was inserted in the right radial [...] John Dominguez MD Job ID/Internal Job ID: ??[id number] us Roly Husain MD CV CARDIAC CATH PROCEDURES Fi nal Result * ECG 12 lead (07/18/2023 1:59 PM ENVIRONMENTAL PROTECTION GEOLOGIST) 07/18/2023 1:59 PM ENVIRONMENTAL PROTECTION GEOLOGIST Narrative [facility] - 07/19/2023 7:57 AM ENVIRONMENTAL PROTECTION GEOLOGIST Vent Rate: 91 bpm RR Interval: 655 msec WA Interval: 0 msec QRS Duration: 123 msec QT Interval: 420 msec QTC Interval: 469 msec P-R-T [place]: 53455 - 65 - 208 degrees IMPRESSION: ATRIAL [...] Joycelyn Moseley MD ECG ORDERABLES Final Result [facility] * TRANSTHORACIC ECHO (TTE) COMPLETE W DOPPLER/CF WO CONTRAST (07/18/2023 9:56 AM ENVIRONMENTAL PROTECTION GEOLOGIST) Anatomical Region Laterality Modality Ultrasound 07/18/2023 8:50 AM ENVIRONMENTAL PROTECTION GEOLOGIST Narrative 07/18/2023 10:08 AM ENVIRONMENTAL PROTECTION GEOLOGIST [address] [place] [address] Echocardiogram Report Patient Name: PEBBLES LAL L : 1945 Study Date: 07/18/2023 8:50:58 AM Gender: F Tech: Location: [address] Provider: GIANLUCA SORIANO ?Height(Cm): 152 BSA: 2.39 [...] Signed By: Dr Roly Husain 2023-07-18 10:07:11 ENVIRONMENTAL PROTECTION GEOLOGIST Procedure Note Roly Husain MD - 07/18/[address] [address] Echocardiogram Report Patient Name: PEBBLES LAL L : 1945 Study Date: 07/18/2023 8:50:58 AM Gender: F Tech: Location: [place] [address] Ref Provider: GIANLUCA SORIANO Height(Cm): 152 BSA: [...] Signed By: Dr Roly Husain 2023-07-18 10:07:11 ENVIRONMENTAL PROTECTION GEOLOGIST us Gianluca Soriano MD PhD CV ECHO PROCEDURES Final R esult * eGFR (07/18/2023 3:34 AM ENVIRONMENTAL PROTECTION GEOLOGIST) eGFR 72 mL/min/1. 73 m2 [facility] [...] last reviewed 2021. Blood 07/18/2023 3:34 AM ENVIRONMENTAL PROTECTION GEOLOGIST 07/18/2023 3:44 AM ENVIRONMENTAL PROTECTION GEOLOGIST us Maciel Jean MD LAB BLOOD ORDERABLES Final Resu lt [facility] ([place]) [address] [place] [address] * (ABNORMAL) Comprehensive metabolic panel (07/18/2023 3:34 AM ENVIRONMENTAL PROTECTION GEOLOGIST) Sodium 140 135 - 145 mmol/L [facility] [...] 0.3 0.1 - 1.2 mg/dL [facility] ([place]) Protein, pl 6.9 6.5 - 8.5 g/dL [facility] ([place]) Albumin 2.9(L) 3.5 - 5.0 g/dL [facility] ([place]) Alk phos 119 40 - 130 Units/L [facility] ([place]) ALT 13 7 - 45 Units/L [facility] ([place]) AST 23 10 - 45 Units/L [facility] ([place]) Blood 07/18/2023 3:34 AM ENVIRONMENTAL PROTECTION GEOLOGIST 07/18/2023 3:44 AM ENVIRONMENTAL PROTECTION GEOLOGIST Maciel Jean MD LAB BLOOD ORDERABLES Final Resu lt [facility] ([place]) 1 [facility] [place] [address] * Magnesium (07/18/2023 3:34 AM ENVIRONMENTAL PROTECTION GEOLOGIST) Magnesium 2.0 1.4 - 2.5 mg/dL [facility] ([facility] Blood 07/18/2023 3:34 AM ENVIRONMENTAL PROTECTION GEOLOGIST 07/18/2023 3:44 AM ENVIRONMENTAL PROTECTION GEOLOGIST Gianluca Soriano MD PhD LAB BLOOD ORDERABLES Final Result Performing Organization Address [facility]/ZIP Co de Phone Number [facility] ([facility]) 1 [facility] [place] [address] * Phosphorus (07/18/2023 3:34 AM ENVIRONMENTAL PROTECTION GEOLOGIST) Pathologist [facility] Phosphorus, pl 2.6 2.3 - 4.5 mg/dL [facility] ([place]) Blood 07/18/2023 3:34 AM ENVIRONMENTAL PROTECTION GEOLOGIST 07/18/2023 3:44 AM ENVIRONMENTAL PROTECTION GEOLOGIST Gianluca Soriano MD PhD LAB BLOOD ORDERABLES Final Result Performing Organization Address [facility] Co de Phone Number [facility] ([place]) 1 [facility] [place] [address] * (ABNORMAL) Cortisol (07/17/2023 8:27 AM ENVIRONMENTAL PROTECTION GEOLOGIST) Cortisol 28.9(H) 4.8 - 19.5 mcg/dl [facility] ([place]) Comment: Interpretive Data Normal Range: ??4.8 - 19.5 mcg/dL; ??Evening: ??Half of morning value. ?? This analyte undergoes marked diurnal variation. ??Ranges indicated apply to morning specimens. ?? Current interpretive data was last revised 2018. Testing performed by: [facility], [address] [place] [address], [place]., [id number] Blood 07/17/2023 8:27 AM ENVIRONMENTAL PROTECTION GEOLOGIST 07/17/2023 11:16 AM ENVIRONMENTAL PROTECTION GEOLOGIST us Maciel Jean MD LAB BLOOD ORDERABLES Final Resu lt Performing Organization Address City/[facility]/ZIP Co de Phone Number [facility] ([place]) 1 [facility] [place] [address] * TSH reflex to free T4 (07/17/2023 8:27 AM ENVIRONMENTAL PROTECTION GEOLOGIST) TSH 1.45 0.30 - 4.20 mcIUnit/mL [facility] ([facility]) Blood 07/17/2023 8:27 AM ENVIRONMENTAL PROTECTION GEOLOGIST 07/17/2023 8:44 AM ENVIRONMENTAL PROTECTION GEOLOGIST us Maciel Jean MD LAB BLOOD ORDERABLES Final Resu lt Performing Organization Address City/[facility] de Phone Number [facility] ([facility]) 1 [facility] [place] [address] * eGFR (07/17/2023 5:11 AM ENVIRONMENTAL PROTECTION GEOLOGIST) eGFR 49 mL/min/1. 73 m2 [facility] ([facility]) Comment: Interpretive Data Reference Interval Normal ?>/= [...] last reviewed 2021. Blood 07/17/2023 5:11 AM ENVIRONMENTAL PROTECTION GEOLOGIST 07/17/2023 5:27 AM ENVIRONMENTAL PROTECTION GEOLOGIST Maciel Jean MD LAB BLOOD ORDERABLES Final Resu lt Performing Organization Address City/[facility]/ZIP Co de Phone Number [facility] ([facility]) 1 [facility] [place] [address] * (ABNORMAL) Troponin T high-sensitivity 6-hour (07/17/2023 5:11 AM ENVIRONMENTAL PROTECTION GEOLOGIST) Trop T hs 350(C) <=14 ng/L [facility] ([place]) Comment: Critical Result called to and read back by orlando bee (ICU), DATE: 2023-07-17 05:47:59 BY: Annie Zuñiga Interpretive Data For further hscTnT resources including the diagnostic algorithm and an aid in interpretation, copy and paste this link: https://nrl.testcatalog.org/show/hsTrop Current Interpretive Data last revised 2020. Trop T hs delta 293(C) ng/L [facility] ([place]) Comment:Critical Result call ed to and read back by orlando bee (ICU), DATE: 2023-07-17 05:47:59 BY: Annie Zuñiga Trop T hs interp Significa nt(C) [facility] ([place]) Comment:Critical Result call ed to and read back by orlando bee (ICU), DATE: 2023-07-17 05:47:59 BY: Annie Zuñiga Blood 07/17/2023 5:11 AM ENVIRONMENTAL PROTECTION GEOLOGIST 07/17/2023 5:31 AM ENVIRONMENTAL PROTECTION GEOLOGIST us Maciel Jean MD LAB BLOOD ORDERABLES Final Resu lt Performing Organization Address City/[facility]/ZIP Co de Phone Number [facility] ([place]) 1 [facility] [place] [address] * Magnesium (07/17/2023 5:11 AM ENVIRONMENTAL PROTECTION GEOLOGIST) [facility] Magnesium 2.0 1.4 - 2.5 mg/dL [facility] ([place]) Blood 07/17/2023 5:11 AM ENVIRONMENTAL PROTECTION GEOLOGIST 07/17/2023 5:27 AM ENVIRONMENTAL PROTECTION GEOLOGIST Maciel Jean MD LAB BLOOD ORDERABLES Final Resu lt Performing Organization Address City/[facility]/ZIP Co de Phone Number [facility] ([place]) 1 [facility] [place] [address] * Phosphorus (07/17/2023 5:11 AM ENVIRONMENTAL PROTECTION GEOLOGIST) [facility] Phosphorus, pl 3.2 2.3 - 4.5 mg/dL [facility] ([place]) Blood 07/17/2023 5:11 AM ENVIRONMENTAL PROTECTION GEOLOGIST 07/17/2023 5:27 AM ENVIRONMENTAL PROTECTION GEOLOGIST Maciel Jean MD LAB BLOOD ORDERABLES Final Resu lt Performing Organization Address [facility]/ZIP Co de Phone Number [facility] ([place]) 1 [facility] [place] [address] * (ABNORMAL) Comprehensive metabolic panel (07/17/2023 5:11 AM ENVIRONMENTAL PROTECTION GEOLOGIST) Pathologist [facility] Sodium 138 135 - 145 mmol/L [facility] ([place]) Potassium, pl 3.8 3.3 - 4.9 mmol/L [facility] ([place]) Chloride 100 97 - 110 mmol/L [facility] ([place]) CO2 25 22 - 32 mmol/L [facility] ([place]) Anion gap 14 2 - 15 mmol/L [facility] ([place]) BUN 18 6 - 25 mg/dL [facility] ([place]) Creatinine 1.15(H) 0.60 - 1.10 [...] [facility] ([place]) Blood 07/17/2023 5:11 AM ENVIRONMENTAL PROTECTION GEOLOGIST 07/17/2023 5:27 AM ENVIRONMENTAL PROTECTION GEOLOGIST us Maciel Jean MD LAB BLOOD ORDERABLES Final Resu lt [facility] ([facility]) 1 [facility] [place] [address] * Infection Prevention MRSA Only (Staphylococcus aureus) PCR Nasal (07/17/2023 4:50 AM ENVIRONMENTAL PROTECTION GEOLOGIST) PCR Scrn, Methicillin resistant Staphylococcus aureus (MRSA) Not Detected Not Detected [facility] ([facility]) Comment: Interpretive Data Testing performed using Nucleic Acid Amplification with the [employer] Xpert MRSA NxG Assay. This assay detects target DNA from mecA, mecC and the SCCmec insertion site of Staphylococcus aureus using Real-Time PCR and has been cleared by the FDA. Performance characteristics have been verified by the [facility]. Current Interpretive Data was last revised on 2022 Nasal 07/17/2023 4:50 AM ENVIRONMENTAL PROTECTION GEOLOGIST 07/17/2023 5:19 AM ENVIRONMENTAL PROTECTION GEOLOGIST Maciel Jean MD LAB MICROBIOLOGY - [facility] STORM Final Result [facility] ([facility]) [address] [facility] Department [place] [address] * (ABNORMAL) Differential, auto (07/17/2023 4:42 AM ENVIRONMENTAL PROTECTION GEOLOGIST) Neutrophil abs 15.8(H) 1.5 - 6.5 K/cumm [facility] ([facility]) Imm gran abs 0.2(H) 0.0 - 0.1 K/cumm [facility] ([place]) Lymphocyte abs 0.8 0.8 - 3.3 K/cumm [facility] ([place]) Monocyte abs 0.5 0.2 - 0.8 K/cumm [facility] ([place]) Eosinophil abs 0.0 0.0 - 0.5 K/cumm [facility] ([place]) Basophil abs 0.1 0.0 - 0.1 K/cumm [facility] ([place]) Neutrophil pct 90.8 % [facility] ([place]) Comment: Interpretive Data Percent cell count reference ranges are not reported, since discordance with absolute values may lead to misinterpretation of CBC data. Current Interpretive Data was last revised on 2017. Imm gran pct 1.4 % [facility] ([place]) Comment: Interpretive Data Percent cell count reference ranges are not reported, since discordance with absolute values may lead to misinterpretation of CBC data. Current Interpretive Data was last revised on 2017. Lymphocyte pct 4.4 % [facility] ([place]) Comment: Interpretive Data Percent cell count reference ranges are not reported, since discordance with absolute values may lead to misinterpretation of CBC data. Current Interpretive Data was last revised on 2017. Monocyte pct 2.9 % [facility] ([place]) Comment: Interpretive Data Percent cell count reference [...] revised on 2017. Blood 07/17/2023 4:42 AM ENVIRONMENTAL PROTECTION GEOLOGIST 07/17/2023 4:46 AM ENVIRONMENTAL PROTECTION GEOLOGIST Silvia Villafana MD LAB BLOOD ORDERABLES Lisa mazariegos Result [facility] ([place]) 1 [facility] [place] [address] * (ABNORMAL) CBC with auto differential (07/17/2023 4:42 AM ENVIRONMENTAL PROTECTION GEOLOGIST) WBC 17.4(H) 3.8 - 9.9 K/cumm [facility] ([place]) Hgb 13.4 11.9 - 15.5 g/dL [facility] ([place]) Hct 40.1 35.6 - 45.5 [...] NRBC abs 0.00 0.00 - 0.01 K/cumm [facility] ([place]) Blood 07/17/2023 4:42 AM ENVIRONMENTAL PROTECTION GEOLOGIST 07/17/2023 4:46 AM ENVIRONMENTAL PROTECTION GEOLOGIST Silvia Villafana MD LAB BLOOD ORDERABLES Lisa l Result [facility] ([place]) 1 [facility] [place] [address] * Sepsis Lactate w/ Reflex (07/17/2023 4:42 AM ENVIRONMENTAL PROTECTION GEOLOGIST) Sepsis Lactate 1.7 0.7 - 2.0 mmol/L [facility] ([place]) Blood 07/17/2023 4:42 AM ENVIRONMENTAL PROTECTION GEOLOGIST 07/17/2023 4:47 AM ENVIRONMENTAL PROTECTION GEOLOGIST Silvia Villafana MD LAB BLOOD ORDERABLES Lisa l Result Performing Organization Address [facility] Co de Phone Number [facility] ([place]) 1 [facility] [place] [address] * aPTT (07/17/2023 2:54 AM ENVIRONMENTAL PROTECTION GEOLOGIST) aPTT 38 28 - 38 sec [facility] ([place]) Comment: Interpretive Data Heparin therapeutic range: 66.0 - 100.0 seconds. Range based on correlation with therapeutic heparin activity range of 0.3 - 0.7 Units/mL. Current interpretive data was last revised on 2023. Blood 07/17/2023 2:54 AM ENVIRONMENTAL PROTECTION GEOLOGIST 07/17/2023 3:05 AM ENVIRONMENTAL PROTECTION GEOLOGIST Narrative [facility] ([place]) - 07/17/2023 3:24 AM ENVIRONMENTAL PROTECTION GEOLOGIST Baseline prior to enoxaparin initiation. Silvia Villafana MD LAB BLOOD ORDERABLES Lisa l Result Performing Organization Address City/[facility]/ZIP Co de Phone Number [facility] ([place]) 1 [facility] [place] [address] * (ABNORMAL) Protime-INR (07/17/2023 2:54 AM ENVIRONMENTAL PROTECTION GEOLOGIST) PT 14.4(H) 10.3 - 13.7 sec [facility] ([place]) INR 1.26(H) 0.90 - 1.20 [facility] ([place]) Comment: Interpretive data Oral anticoagulant therapeutic ranges: Venous thromboembolism prophylaxis or treatment: 2.0-3.0 CARDIOLOGY Standard range: 2.0-3.0 High-intensity range: 2.5-3.5 Refer to indication-specific guidelines for appropriate target ranges for prosthetic heart valve replacement. Current interpretive data was last revised on 2019. Blood 07/17/2023 2:54 AM ENVIRONMENTAL PROTECTION GEOLOGIST 07/17/2023 3:05 AM ENVIRONMENTAL PROTECTION GEOLOGIST Silvia Villafana MD LAB BLOOD ORDERABLES Lisa mazariegos Result [facility] ([place]) 1 [facility] [place] [address] * (ABNORMAL) Troponin T high-sensitivity 4-hour (07/17/2023 2:54 AM ENVIRONMENTAL PROTECTION GEOLOGIST) Trop T hs 369(C) <=14 ng/L [facility] ([place]) Comment: Hemolysis present. ??Results may be affected. Critical Result called to and read back by Tonya Reaves, DATE: 2023-07-17 03:43:12 BY: Annie Zuñiga Interpretive Data For further hscTnT resources including the diagnostic algorithm and an aid in interpretation, copy and paste this link: https://nrl.testcatalog.org/show/hsTrop Current Interpretive Data last revised 2020. Trop T hs delta 312(C) ng/L [facility] ([place]) Comment:Critical Result call ed to and read back by Tonya Reaves, DATE: 2023-07-17 03:43:12 BY: Annie Zuñiga Trop T hs interp Significa nt(C) [facility] ([place]) Comment:Critical Result call ed to and read back by Tonya Reaves, DATE: 2023-07-17 03:43:12 BY: Annie Zuñiga Blood 07/17/2023 2:54 AM ENVIRONMENTAL PROTECTION GEOLOGIST 07/17/2023 3:05 AM ENVIRONMENTAL PROTECTION GEOLOGIST Silvia Villafana MD LAB BLOOD ORDERABLES Lisa l Result Performing Organization Address [facility]/ZIP Co de Phone Number [facility] ([place]) 1 [facility] [place] [address] * (ABNORMAL) Sepsis Lactate w/ Reflex (07/17/2023 1:34 AM ENVIRONMENTAL PROTECTION GEOLOGIST) Sepsis Lactate 2.2(H) 0.7 - 2.0 mmol/L [facility] ([place]) Blood 07/17/2023 1:34 AM ENVIRONMENTAL PROTECTION GEOLOGIST 07/17/2023 1:39 AM ENVIRONMENTAL PROTECTION GEOLOGIST Silvia Villafana MD LAB BLOOD ORDERABLES Lisa l Result Performing Organization Address [facility] de Phone Number [facility] ([place]) 1 [facility] [place] [address] * ECG 12 lead (07/17/2023 1:23 AM ENVIRONMENTAL PROTECTION GEOLOGIST) 07/17/2023 1:23 AM ENVIRONMENTAL PROTECTION GEOLOGIST Narrative [facility] - 07/18/2023 4:37 PM ENVIRONMENTAL PROTECTION GEOLOGIST Vent Rate: 85 bpm RR Interval: 700 msec WA Interval: 0 msec QRS Duration: 123 msec QT Interval: 403 msec QTC Interval: 445 msec P-R-T [place]: 089[address] - 33 - 52 degrees IMPRESSION: UNCERTAIN REGULAR RHYTHM, probably junctional POSSIBLE LATERAL MYOCARDIAL INFARCTION , OF INDETERMINATE AGE [30 ms Q WAVE IN I/aVL/V5/V6] ABNORMAL ECG NO CHANGE FROM PREVIOUS TRACING NOTED Electronically Signed By: John Dominguez MD us Silvia Villafana MD ECG ORDERABLES Final Res ult Performing Organization Address [facility]/ZIP Co de Phone Number [facility] [place] [facility] * (ABNORMAL) Urine culture Urine (07/17/2023 12:35 AM ENVIRONMENTAL PROTECTION GEOLOGIST) Report Final Report: Greater than or equal to 100,000 colonies/mL of Escherichia coli Plus growth of clinically insignificant bacterial star. (.) [facility] ([place]) Comment:Testing performed by : [facility], [address] [facility], [place]., [address] Organism ESCHERICHIA COLI [facility] ([place]) Organism PLUS GROWTH OF CLINICALLY INSIGNIFICANT STAR. [facility] ([place]) Urine 07/17/2023 12:3 5 AM ENVIRONMENTAL PROTECTION GEOLOGIST 07/17/2023 6:57 AM ENVIRONMENTAL PROTECTION GEOLOGIST Narrative [facility] ([place]) - 07/19/2023 9:29 AM ENVIRONMENTAL PROTECTION GEOLOGIST Urine culture reflexed based upon urinalysis results. Testing performed by [facility]biology Laboratory ([phone]) Organism Antibiotic Method Susceptibility Escherichia coli Ampicillin [...] INTERPRETATION Susceptible Escherichia coli Cefdinir INTERPRETATION Susceptible us Silvia Villafana MD LAB MICROBIOLOGY - GENERA L ORDERABLES Final Result [facility] ([place]) 1 [facility] Department of Laboratories [place], [place] [id number] * (ABNORMAL) Urinalysis, microscopic only (07/17/2023 12:35 AM ENVIRONMENTAL PROTECTION GEOLOGIST) WBC, ur >50(A) 0 - 5 /HPF [facility] ([place]) RBC, ur 21-50(A) 0 - 2 /HPF [facility] ([place]) Epithelial cells, squamous, ur 1-5 0 - 5 /HPF [facility] ([place]) Bacteria, ur 4+(A) [facility] ([place]) Yeast, ur 2+(A) [facility] ([place]) Mucous, ur Present(A) [facility] ([place]) Culture Reflex Comment Reflex to urine culture will be performed. [facility] ([place]) Urine 07/17/2023 12:3 5 AM ENVIRONMENTAL PROTECTION GEOLOGIST 07/17/2023 12:37 AM ENVIRONMENTAL PROTECTION GEOLOGIST us Silvia Villafana MD LAB URINE ORDERABLES Lisa yair Result [facility] ([place]) 1 [facility] Department [place] [address] * (ABNORMAL) Urinalysis reflex to microscopic and culture Urine (07/17/2023 12:35 AM ENVIRONMENTAL PROTECTION GEOLOGIST) Color, ur Yellow Yellow [facility] ([place]) Clarity, ur Turbid(A) Clear [facility] ([place]) Specific gravity, ur 1.015 1.003 - 1.030 [facility] ([place]) pH, urine 5.5 [facility] ([place] Comment: Interpretive Data ? Urine pH is affected by diet, medications, systemic acid-base disturbances, and renal tubular function. ??pH may affect urinary stone formation. ??For example, urine pH below 6.0 may help reduce the tendency for calcium phosphate stones and pH greater than 6.0 may reduce the tendency for uric acid stone formation. Source: [facility] [employer] Current Interpretive Data was last revised on 2017 Protein, ur ql 2+(A) Negative [facility] ([place]) Glucose, ur ql Negative Negative [facility] ([place]) Ketones, ur Negative Negative [facility] ([place]) Bilirubin, ur Negative Negative [facility] ([place]) Blood, ur 3+(A) Negative [facility] ([place]) Urobilinogen, ur <2.0 <2.0 mg/dL [facility] ([place]) Nitrite, ur Negative Negative [facility] ([place]) Leukocyte esterase, ur 4+(A) Negative [facility] ([place]) UA reflex comment Reflex to microscopic UA will be performed. [facility] ([place]) Urine 07/17/2023 12:3 5 AM ENVIRONMENTAL PROTECTION GEOLOGIST 07/17/2023 12:37 AM ENVIRONMENTAL PROTECTION GEOLOGIST Silvia Villafana MD LAB MICROBIOLOGY - GENERA L ORDERABLES Final Result Performing Organization Address [facility]/ZIP Co de Phone Number [facility] ([place]) 1 [facility] [place] [address] * (ABNORMAL) Troponin T high-sensitivity 2-hour (07/17/2023 12:35 AM ENVIRONMENTAL PROTECTION GEOLOGIST) Trop T hs 226(C) <=14 ng/L [facility] ([place]) Comment: Critical Result called to and read back by Edith Loyd (ER), DATE: 2023-07-17 01:16:22 BY: ?Bridget Interpretive Data For further hscTnT resources including the diagnostic algorithm and an aid in interpretation, copy and paste this link: https://nrl.testcatalog.org/show/hsTrop Current Interpretive Data last revised 2020. Trop T hs delta 169(C) ng/L [facility] ([place]) Comment:Critical Result call ed to and read back by Edith Loyd (ER), DATE: 2023-07-17 01:16:22 BY: Brayan Trop T hs interp Significa nt(C) [facility] ([place]) Comment:Critical Result call ed to and read back by Edith Loyd (ER), DATE: 2023-07-17 01:16:22 BY: Brayan Blood 07/17/2023 12:3 5 AM ENVIRONMENTAL PROTECTION GEOLOGIST 07/17/2023 12:37 AM ENVIRONMENTAL PROTECTION GEOLOGIST Silvia Villafana MD LAB BLOOD ORDERABLES Lisa l Result [facility] ([place]) 1 [facility] [place] [address] * ECG 12 lead (07/16/2023 11:05 PM ENVIRONMENTAL PROTECTION GEOLOGIST) 07/16/2023 11:0 5 PM ENVIRONMENTAL PROTECTION GEOLOGIST Narrative [facility] - 07/18/2023 4:37 PM ENVIRONMENTAL PROTECTION GEOLOGIST Vent Rate: 100 bpm RR Interval: 597 msec WA Interval: 0 msec QRS Duration: 128 msec QT Interval: 355 msec QTC Interval: 412 msec P-R-T [place]: 76701 - 33 - 56 degrees IMPRESSION: UNCERTAIN REGULAR RHYTHM, probably junctional POSSIBLE LATERAL MYOCARDIAL INFARCTION , OF INDETERMINATE AGE [30 ms Q WAVE IN I/aVL/V5/V6] CRITICAL TEST RESULT Compared to prior EKG, P-waves are not present Electronically Signed By: John Dominguez MD us Gianluca Soriano MD PhD ECG ORDERABLES Final Resu lt [employer] [place] [facility] * (ABNORMAL) Troponin T high-sensitivity series (baseline, 2hr, 4hr, 6hr) (07/16/2023 10:49 PM ENVIRONMENTAL PROTECTION GEOLOGIST) Trop T hs 57(H) <=14 ng/L [facility]) Comment: Interpretive Data For further hscTnT resources including the diagnostic algorithm and an aid in interpretation, copy and paste this link: https://nrl.testcatalog.org/show/hsTrop Current Interpretive Data last revised 2020. Blood 07/16/2023 10:4 9 PM ENVIRONMENTAL PROTECTION GEOLOGIST 07/16/2023 10:53 PM ENVIRONMENTAL PROTECTION GEOLOGIST us Silvia Villafana MD LAB BLOOD ORDERABLES Lisa l Result [facility] ([place]) 1 [facility] [place] [address] * Blood culture Blood Peripheral (07/16/2023 10:49 PM ENVIRONMENTAL PROTECTION GEOLOGIST) Report Final Report: No growth [facility]) Comment:Testing performed by : [facility], [address] [facility], [place]., [address] Blood (Peripheral) 07/16/2023 10:49 PM ENVIRONMENTAL PROTECTION GEOLOGIST 07/17/2023 6:51 AM ENVIRONMENTAL PROTECTION GEOLOGIST Narrative [facility] ([place]) - 07/21/2023 7:00 AM ENVIRONMENTAL PROTECTION GEOLOGIST From a different site than #1. Draw [...] organism identification may be performed using the KitBoostigene Gram-Positive Blood Culture Assay. This assay detects microbial DNA in positive blood culture broth via hybridization of target DNA to capture oligonucleotides on a microarray. This assay has been cleared by the [place] Food and Drug Administration and its performance characteristics have been verified by the [facility]. 5. ?For questions about this culture, contact the Microbiology Laboratory at [phone]. Interpretive data was last revised on 2019. Silvia Villafana MD LAB MICROBIOLOGY - GENERA L ORDERABLES Final Result [facility] ([place]) 1 [facility] [place] [address] * Blood culture Blood Peripheral (07/16/2023 10:49 PM ENVIRONMENTAL PROTECTION GEOLOGIST) Report Final Report: No growth [facility] ([place]) Comment:Testing performed by : [facility], [address] [facility], [place]., [address] Blood (Peripheral) 07/16/2023 10:49 PM ENVIRONMENTAL PROTECTION GEOLOGIST 07/17/2023 6:51 AM ENVIRONMENTAL PROTECTION GEOLOGIST Narrative [facility] ([place]) - 07/21/2023 7:00 AM ENVIRONMENTAL PROTECTION GEOLOGIST Draw Blood cultures before administration of Antibiotics [...] organism identification may be performed using the KitBoostigene Gram-Positive Blood Culture Assay. This assay detects microbial DNA in positive blood culture broth via hybridization of target DNA to capture oligonucleotides on a microarray. This assay has been cleared by the [place] Food and Drug Administration and its performance characteristics have been verified by the [facility]. 5. ?For questions about this culture, contact the Microbiology Laboratory at [phone]. Interpretive data was last revised on 2019. Silvia Villafana MD LAB MICROBIOLOGY - GENERA L ORDERABLES Final Result [facility] ([place]) 1 [facility] [place] [address] * XR CHEST 1 VIEW PORTABLE (07/16/2023 10:40 PM ENVIRONMENTAL PROTECTION GEOLOGIST) Anatomical Region Laterality Modality Body, Chest N/A Computed Radiogr aphy 07/16/2023 10:4 2 PM ENVIRONMENTAL PROTECTION GEOLOGIST Narrative 07/16/2023 10:43 PM ENVIRONMENTAL PROTECTION GEOLOGIST EXAM DESCRIPTION: XR CHEST 1 VIEW REASON FOR STUDY: cough ?? [facility] spo2 89% RA [...] PM T: ??07/16/2023 10:43 PM Report ID: [id number] Reading Location: ??[id number] Procedure Note Pawan Mata MD - 07/16/2023 EXAM DESCRIPTION: XR CHEST 1 VIEW REASON FOR STUDY: cough Pt presents [facility] with nausea vomiting diarrhea spo2 89% RA TECHNIQUE: 1 radiographic view(s) of the chest. COMPARISON: 04/14/2019 FINDINGS: Stable cardiomegaly. Poor inspiratory result with bibasilar discoid atelectasis. Mild pulmonary vascular congestion. No airspaceconsolidation. No pneumothorax. IMPRESSION: Cardiomegaly and mild pulmonary vascular congestion. THIS IS AN ELECTRONICALLY VERIFIED FINAL REPORT 07/16/2023 10:43 PM - Electronically signed by Pawan Mata M.D. KT: KT Report ID: [id number] Reading Location: [id number] us Silvia Villafana MD IMG XR PROCEDURES Final R esult * eGFR (07/16/2023 10:03 PM ENVIRONMENTAL PROTECTION GEOLOGIST) eGFR 74 mL/min/1. 73 m2 [facility] ([place]) Comment: [...] reviewed 2021. Blood 07/16/2023 10:0 3 PM ENVIRONMENTAL PROTECTION GEOLOGIST 07/16/2023 10:07 PM ENVIRONMENTAL PROTECTION GEOLOGIST us Silvia Villafana MD LAB BLOOD ORDERABLES Lisa mazariegos Result [facility] ([place]) 1 [facility] [place] [address] * (ABNORMAL) Pro B-type natriuretic peptide (07/16/2023 10:03 PM ENVIRONMENTAL PROTECTION GEOLOGIST) NT-proBNP 1,392(H) <=450 pg/mL [facility] ([place]) [...] as advanced age. - References: 1. Juli JL et.al. Eur Heart J. 2006:27:330-337. 2. Reji RW, Jaqueline BIANCHI. J. AM Ivana Cardiol: Cardiovasc Imag. 2009;2: 216- 225. Interpretive Data Last Revised Date: 2018. Blood 07/16/2023 10:0 3 PM ENVIRONMENTAL PROTECTION GEOLOGIST 07/16/2023 10:55 PM ENVIRONMENTAL PROTECTION GEOLOGIST us Silvia Villafana MD LAB BLOOD ORDERABLES Lisa l Result [facility] ([place]) 1 [facility] [place] [address] * (ABNORMAL) Differential, auto (07/16/2023 10:03 PM ENVIRONMENTAL PROTECTION GEOLOGIST) Neutrophil abs 13.6(H) 1.5 - 6.5 K/cumm [facility] ([place]) Imm gran abs 0.3(H) 0.0 - 0.1 K/cumm [facility] ([place]) Lymphocyte abs 1.2 0.8 - 3.3 K/cumm [facility] ([place]) Monocyte abs 1.3(H) 0.2 - 0.8 K/cumm [facility] ([place]) Eosinophil abs 0.0 0.0 - 0.5 K/cumm [facility] ([place]) Basophil abs 0.2(H) 0.0 - 0.1 K/cumm [facility] ([place]) Neutrophil pct 81.7 % [facility] ([place]) Comment: Interpretive [...] 2017. Basophil pct 0.9 % [facility] ([place]) Comment: Interpretive Data Percent cell count reference ranges are not reported, since discordance with absolute values may lead to misinterpretation of CBC data. Current Interpretive Data was last revised on 2017. Blood 07/16/2023 10:0 3 PM ENVIRONMENTAL PROTECTION GEOLOGIST 07/16/2023 10:07 PM ENVIRONMENTAL PROTECTION GEOLOGIST Silvia Villafana MD LAB BLOOD ORDERABLES Lisa l Result [facility]) 1 [facility] [place] [address] * Influenza A/B, RSV, and COVID-19 PCR Nasopharyngeal (07/16/2023 10:03 PM ENVIRONMENTAL PROTECTION GEOLOGIST) COVID-19 RNA Negative Negative [facility] ([place]) Influenza A RNA Negative Negative [facility] ([place]) Influenza B RNA Negative Negative [facility] ([place]) RSV RNA Negative Negative [facility] ([place]) Comment: Interpretive data: Testing performed by [facility]. This test is performed using the NormOxys Xpert Xpress CoV-2/Flu/RSV plus assay. This is a multiplex, real- time reverse transcriptase PCR assay intended for the qualitative detection of nucleic acid from SARS-CoV-2, influenza A, influenza B, and respiratory syncytial virus. This assay has been cleared by the [place] Food and Drug administration. The performance characteristics have been verified by the [facility]. ?? Results must be considered in the clinical context, and a negative result does not rule out infection. Interpretive Data last revised 2023 Nasopharyngeal 07/16/2023 10 :03 PM ENVIRONMENTAL PROTECTION GEOLOGIST 07/16/2023 10:07 PM ENVIRONMENTAL PROTECTION GEOLOGIST Narrative [facility] ([place]) - 07/16/2023 11:01 PM ENVIRONMENTAL PROTECTION GEOLOGIST Is the Patient experiencing symptoms consistent with COVID?->Yes Date of Symptom Onset->07/09/23 Reason for testing?->Symptomatic Silvia Villafana MD LAB MICROBIOLOGY - GENERA L ORDERABLES Final Result [facility]) 1 [facility] [place] [address] * Lipase (07/16/2023 10:03 PM ENVIRONMENTAL PROTECTION GEOLOGIST) Lipase 13 10 - 99 Units/L [facility] ([place]) Blood 07/16/2023 10:0 3 PM ENVIRONMENTAL PROTECTION GEOLOGIST 07/16/2023 10:07 PM ENVIRONMENTAL PROTECTION GEOLOGIST us Silvia Villafana MD LAB BLOOD ORDERABLES Lisa yair Result [facility] ([place]) 1 [facility] [place] [address] * (ABNORMAL) Comprehensive metabolic panel (07/16/2023 10:03 PM ENVIRONMENTAL PROTECTION GEOLOGIST) Sodium 131(L) 135 - 145 mmol/L [facility] ([place]) Potassium, pl 5.3(H) 3.3 - 4.9 mmol/L [facility] ([place]) [...] Hemolyzed Specimen Blood 07/16/2023 10:0 3 PM ENVIRONMENTAL PROTECTION GEOLOGIST 07/16/2023 10:07 PM ENVIRONMENTAL PROTECTION GEOLOGIST us Silvia Villafana MD LAB BLOOD ORDERABLES Lisa mazariegos Result [facility] ([place]) 1 [facility] [place] [address] * (ABNORMAL) CBC with auto differential (07/16/2023 10:03 PM ENVIRONMENTAL PROTECTION GEOLOGIST) WBC 16.6(H) 3.8 - 9.9 K/cumm [facility] [...] 2023. MCV 94.4 81.3 - 96.4 fL [facility] ([place]) MCH 31.6 27.1 - 33.3 pg [facility] ([place]) MCHC 33.5 32.3 - 35.7 g/dL [facility] ([place]) RDW CV 13.8 11.1 - 14.9 % [facility] ([place]) RDW SD 48.1 35.7 - 48.1 fL [facility] ([place]) NRBC abs 0.00 0.00 - 0.01 K/cumm [facility] ([place]) Blood 07/16/2023 10:0 3 PM ENVIRONMENTAL PROTECTION GEOLOGIST 07/16/2023 10:07 PM ENVIRONMENTAL PROTECTION GEOLOGIST us Silvia Villafana MD LAB BLOOD ORDERABLES Lisa l Result [facility] ([place]) 1 [facility] [place] [address] documented in this encounter Visit Diagnoses Diagnosis Vomiting and diarrhea- Primary Vomiting and diarrhea Cystitis Unspecified cystitis Elevated troponin Other abnormal blood chemistry NSTEMI (non-ST elevated myocardial infarction) ([facility] ([facility]) Acute myocardial infarction, subendocardial infarction, episode of care unspecified Takotsubo cardiomyopathy [I51.81] Takotsubo syndrome Acquired hypothyroidism Unspecified hypothyroidism Class 3 severe obesity due to excess calories with serious comorbidity and body mass index (BMI) of 50.0 to 59.9 in adult ([facility]) New onset atrial fibrillation ([facility]) ([facility]) Atrial fibrillation NSTEMI (non-ST elevated myocardial infarction) ([facility]) ([facility]) Acute myocardial infarction, subendocardial infarction, episode of care unspecified NSTEMI (non-ST elevated myocardial infarction) ([facility]) ([facility]) Acute myocardial infarction, subendocardial infarction, episode of care unspecified documented in this encounter Admitting Diagnoses Diagnosis Vomiting and diarrhea NSTEMI (non-ST elevated myocardial infarction) ([facility]) ([facility]) Acute myocardial infarction, subendocardial infarction, episode of care unspecified documented in this encounter Administered Medications Inactive Administered Medications - up to 3 most recent administrations Medication Order MAR Action Action Date Dose Rate Site acetaminophen (TYLENOL) tablet 650 mg 650 mg, oral, Every 4 hours PRN, 1st line for pain, fever, Starting on Tue07/17/23 at 0650 Given 07/29/2023 3:40 AM ENVIRONMENTAL PROTECTION GEOLOGIST 650 mg Given 07/28/2023 3:36 PM ENVIRONMENTAL PROTECTION GEOLOGIST 650 mg Given 07/28/2023 3:27 AM ENVIRONMENTAL PROTECTION GEOLOGIST 650 mg albuterol 2.5 mg /3 mL (0.083 %) nebulizer solution 2.5 mg 2.5 mg, nebulization, Every 4 hours PRN (direct response consultant), wheezing, shortness of breath, Starting on Tue07/18/23 at 1438 Given 07/20/2023 7:32 PM ENVIRONMENTAL PROTECTION GEOLOGIST 2.5 mg Given 07/20/2023 12:58 PM ENVIRONMENTAL PROTECTION GEOLOGIST 2.5 mg Given 07/18/2023 9:56 PM ENVIRONMENTAL PROTECTION GEOLOGIST 2.5 mg amiodarone (PACERONE) tablet 200 mg 200 mg, oral, 2 times daily, First dose on Tue07/19/23 at 1545, For 14 days Given 07/29/2023 9:35 AM ENVIRONMENTAL PROTECTION GEOLOGIST 200 mg Given 07/28/2023 8:15 PM ENVIRONMENTAL PROTECTION GEOLOGIST 200 mg Given 07/28/2023 8:32 AM ENVIRONMENTAL PROTECTION GEOLOGIST 200 mg amiodarone (PACERONE) tablet 200 mg 200 mg, oral, Daily, First dose on Tue08/02/23 at 0900 apixaban (ELIQUIS) tablet 2.5 mg 2.5 mg, oral, Every 12 hours scheduled, First dose (after last modification) on Tue07/20/23 at 2100, Indications: VTE Prophylaxis, atrial fibrillationIndications:VTE Prophylaxis,atrial fibrillation Given 07/29/2023 9:34 AM ENVIRONMENTAL PROTECTION GEOLOGIST 2.5 mg Given 07/28/2023 8:15 PM ENVIRONMENTAL PROTECTION GEOLOGIST 2.5 mg Given 07/28/2023 8:32 AM ENVIRONMENTAL PROTECTION GEOLOGIST 2.5 mg atorvastatin (LIPITOR) tablet 10 mg 10 mg, oral, Daily, First dose on Tue07/27/23 at 1530 Given 07/29/2023 9:35 AM ENVIRONMENTAL PROTECTION GEOLOGIST 10 mg Given 07/28/2023 8:32 AM ENVIRONMENTAL PROTECTION GEOLOGIST 10 mg Given 07/27/2023 6:41 PM ENVIRONMENTAL PROTECTION GEOLOGIST 10 mg bisacodyl EC (DULCOLAX EC) tablet 10 mg 10 mg, oral, Daily PRN, constipation, If no results 24 hours after milk of magnesia, Starting on Tue07/25/23 at 0241, Do not crush, chew, cut, dissolve, open or otherwise manipulate tablet/capsule., Indications: constipationIndications:constipation Given 07/27/2023 12:30 PM ENVIRONMENTAL PROTECTION GEOLOGIST 10 mg bivalirudin (ANGIOMAX) bolus from bag Code/trauma/sedation medication, Starting on Tue07/18/23 at 1553, Intra-Procedure (CV) Given 07/18/2023 3:53 PM ENVIRONMENTAL PROTECTION GEOLOGIST 10 mL budesonide-formoteroL (SYMBICORT) 160-4.5 mcg/actuation inhaler 2 puff 2 puff, inhalation, 2 times daily (direct response consultant), First dose on Tue07/27/23 at 2000, I /authorizing provider attest that the patient meets the approved [facility] Use Criteria: Yes Given 07/29/2023 8:16 AM ENVIRONMENTAL PROTECTION GEOLOGIST 2 puffs Given 07/28/2023 7:42 PM ENVIRONMENTAL PROTECTION GEOLOGIST 2 puffs Given 07/28/2023 8:08 AM ENVIRONMENTAL PROTECTION GEOLOGIST 2 puffs buPROPion SR (WELLBUTRIN SR) 12 hour tablet 150 mg 150 mg, oral, 2 times daily, First dose on Tue07/17/23 at 0900, Do not crush, chew, cut, dissolve, open or otherwise manipulate tablet/capsule., Indications: Anxiety with DepressionIndications:Anxiety with Depression Given 07/29/2023 9:3 4 AM ENVIRONMENTAL PROTECTION GEOLOGIST 150 mg Given 07/28/2023 8:15 PM ENVIRONMENTAL PROTECTION GEOLOGIST 150 mg Given 07/28/2023 8:32 AM ENVIRONMENTAL PROTECTION GEOLOGIST 150 mg carvediloL (COREG) tablet 3.125 mg 3.125 mg, oral, 2 times daily with meals (bkfst, dinner), First dose on Tue07/20/23 at 0800, Hold if systolic blood pressure less than 90 mm Hg. Given 07/29/2023 9:34 AM ENVIRONMENTAL PROTECTION GEOLOGIST 3.125 mg Given 07/28/2023 4:50 PM ENVIRONMENTAL PROTECTION GEOLOGIST 3.125 mg Given 07/28/2023 8:32 AM ENVIRONMENTAL PROTECTION GEOLOGIST 3.125 mg famotidine (PEPCID) tablet 20 mg 20 mg, oral, Daily, First dose on Tue07/20/23 at 0900, This medication, famotidine, was changed from IV route to oral route per protocol. Famotidine adjusted per renal protocol for CrCl 30-50 ml/min (Estimated Creatinine Clearance: 43 mL/min (by C-G 65 yr and older- minimum SCr 0.8 based on SCr of 0.77 mg/dL).) Given 07/29/2023 9:34 AM ENVIRONMENTAL PROTECTION GEOLOGIST 20 mg Given 07/28/2023 8:32 AM ENVIRONMENTAL PROTECTION GEOLOGIST 20 mg Given 07/27/2023 9:43 AM ENVIRONMENTAL PROTECTION GEOLOGIST 20 mg fentaNYL (SUBLIMAZE) preservative free injection Code/trauma/sedation medication, Starting on 07/18/23 at 1545, Intra-Procedure (CV) Given 07/18/2023 3:45 PM ENVIRONMENTAL PROTECTION GEOLOGIST 2 5 mcg FLUoxetine (PROzac) capsule 40 mg 40 mg, oral, Daily, First dose on 07/17/23 at 0900, Do not crush, chew, cut, dissolve, open or otherwise manipulate tablet/capsule., Indications: Anxiety with Depression, FibromyalgiaIndications:Anxiety with Depression,Fibromyalgia Given 07/29/2023 9:35 AM ENVIRONMENTAL PROTECTION GEOLOGIST 40 mg Given 07/28/2023 8:32 AM ENVIRONMENTAL PROTECTION GEOLOGIST 40 mg Given 07/27/2023 9:43 AM ENVIRONMENTAL PROTECTION GEOLOGIST 40 mg furosemide (LASIX) tablet 40 mg 40 mg, oral, Daily, First dose on 07/30/23 at 0900 HYDROcodone-acetaminophen (NORCO) 5-325 mg per tablet 1 tablet 1 tablet, oral, Every 4 hours PRN, 2nd line for pain, Starting on 07/17/23 at 0650, Indications: PainIndications:Pain Given 07/27/2023 8:24 PM ENVIRONMENTAL PROTECTION GEOLOGIST 1 tablet Given 07/27/2023 12:30 PM ENVIRONMENTAL PROTECTION GEOLOGIST 1 tablet Given 07/20/2023 2:12 AM ENVIRONMENTAL PROTECTION GEOLOGIST 1 tablet lidocaine PF (XYLOCAINE) 10 mg/mL (1 %) preservative free injection Code/trauma/sedation medication, Starting on 07/18/23 at 1552, Intra-Procedure (CV) Given 07/18/2023 3:52 PM ENVIRONMENTAL PROTECTION GEOLOGIST 3 mL magnesium hydroxide (MILK OF MAGNESIA) 80 mg/mL (33.3 mg/mL as elemental magnesium) oral suspension 30 mL 30 mL, oral, Daily PRN, constipation, Starting on 07/25/23 at 0241 Given 07/25/2023 2:49 AM ENVIRONMENTAL PROTECTION GEOLOGIST 30 mL miconazole 2 % powder topical, 2 times daily, First dose on 07/17/23 at 1000, Apply to affected area: rash, arm, abdomen, other, Laterality: Bilateral Given 07/29/2023 9:40 AM ENVIRONMENTAL PROTECTION GEOLOGIST Given 07/28/2023 8:15 PM ENVIRONMENTAL PROTECTION GEOLOGIST Given 07/28/2023 8:33 AM ENVIRONMENTAL PROTECTION GEOLOGIST midazolam (VERSED) 1 mg/mL preservative free injection Administer over 2 Minutes, Code/trauma/sedation medication, Starting on Tue07/18/23 at 1546, Intra-Procedure (CV) Given 07/18/2023 3:46 PM ENVIRONMENTAL PROTECTION GEOLOGIST 0.5 mg mineral oil (FLEET MINERAL OIL) enema 133 mL 133 mL (1 enema), rectal, Daily PRN, constipation, if no results 24 hours after bisacodyl, Starting on Tue07/25/23 at 0241, Indications: constipationIndications:constipation nitroglycerin in dextrose 5% 50 mg/250 mL (200 mcg/mL) infusion (premix) Code/trauma/sedation continuous med, Starting on Tue07/18/23 at 1554, Intra-Procedure (CV) New Bag 07/18/2023 3:54 PM ENVIRONMENTAL PROTECTION GEOLOGIST 300 mcg ondansetron (ZOFRAN) injection 4 mg 4 mg, intravenous, Administer over 2 Minutes, Every 4 hours PRN, nausea, vomiting, Starting on Tue07/17/23 at 0650, Indications: Prevention of Post-Operative Nausea and VomitingIndications:Prevention of Post-Operative Nausea and Vomiting Given 07/24/2023 10:03 AM ENVIRONMENTAL PROTECTION GEOLOGIST 4 mg Given 07/23/2023 2:18 PM ENVIRONMENTAL PROTECTION GEOLOGIST 4 mg Given 07/18/2023 10:59 PM ENVIRONMENTAL PROTECTION GEOLOGIST 4 mg psyllium (aspartame) SF (METAMUCIL SF) 3.4 gram packet 1 packet 1 packet, oral, Nightly, First dose (after last modification) on Tue07/18/23 at 2100, Indications: constipationIndications:constipation Given 07/23/2023 8:39 PM ENVIRONMENTAL PROTECTION GEOLOGIST 1 packe t Given 07/19/2023 8:47 PM ENVIRONMENTAL PROTECTION GEOLOGIST 1 packet sacubitriL-valsartan (ENTRESTO) 24-26 mg tablet 1 tablet 1 tablet, oral, 2 times daily, First dose on Tue07/20/23 at 0800, Hold if systolic blood pressure less than 90 mm Hg., Indications: chronic heart failureIndications:chronic heart failure Given 07/29/2023 9:34 AM ENVIRONMENTAL PROTECTION GEOLOGIST 1 t ablet Given 07/28/2023 8:15 PM ENVIRONMENTAL PROTECTION GEOLOGIST 1 tablet Given 07/28/2023 8:31 AM ENVIRONMENTAL PROTECTION GEOLOGIST 1 tablet sodium chloride 0.9% flush 5-10 mL 5-10 mL, intra-catheter, Every 12 hours scheduled, First dose on Tue07/19/23 at 2100, Flush volume based on line type, size, and protocol. Given 07/29/2023 9:37 AM ENVIRONMENTAL PROTECTION GEOLOGIST 10 mL Given 07/28/2023 8:15 PM ENVIRONMENTAL PROTECTION GEOLOGIST 10 mL Given 07/28/2023 8:32 AM ENVIRONMENTAL PROTECTION GEOLOGIST 10 mL sodium chloride 0.9% flush 5-20 mL 5-20 mL, intra-catheter, As needed, line care, with each use, Starting on Tue07/19/23 at 1425, Flush volume based on line type, size, and protocol. sodium chloride 0.9% infusion Code/trauma/sedation continuous med, Starting on Tue07/18/23 at 1530, Intra-Procedure (CV) New Bag 07/18/2023 3:30 PM ENVIRONMENTAL PROTECTION GEOLOGIST 25 mL/hr 25 m L/hr spironolactone (ALDACTONE) tablet 25 mg 25 mg, oral, Daily, First dose on Tue07/23/23 at 0845 Given 07/29/2023 9:35 AM ENVIRONMENTAL PROTECTION GEOLOGIST 25 mg Given 07/28/2023 8:32 AM ENVIRONMENTAL PROTECTION GEOLOGIST 25 mg Given 07/27/2023 9:43 AM ENVIRONMENTAL PROTECTION GEOLOGIST 25 mg documented in this encounter Discontinued Medications Medication Sig Discontinue Reason Start Date End Da te cyanocobalamin (Vitamin B-12) 500 mcg tabletIndications:Prev ention of Vitamin B12 Deficiency Take 1/2 tab mond thru frid and skip sat and Therapy completed 05/28/2021 07/17/2023 FLUoxetine (PROzac) [...] day Therapy completed 03/28/2023 07/17/2023 HYDROcodone-acetaminop hen (Snyder) 5-325 mg per tabletIndications:Pain Take 1 tablet [...] dose 07/29/2023 07/29/2023 sacubitriL-valsartan (ENTRESTO) 24-26 mg tabletIndications:spider assembler apoorva heart failure Take 1 tablet by [...] Recently Administered Medications Times are shown in ENVIRONMENTAL PROTECTION GEOLOGIST. Scheduled Medication Order 07/27/2023 07/28/2023 07/29/2023 amiodarone [...] at 1530 1841 (Given - Provider: Guerda Richards, BREA) 0832 (Given - Provider: Rufina Santamaria, BREA) 0935 (Given - Provider: Nan Bansal, BREA) budesonide-formoteroL (SYMBICORT) 160-4.5 mcg/actuation inhaler 2 puff 2 puff, inhalation, 2 times daily (direct response consultant), First dose on Tue07/27/23 at 2000, I /authorizing provider attest that the patient meets the approved [facility] Use Criteria: Yes 1956 (Given - Provider: Solitario Cintron, JOHN) 08 (Given - Provider: Mag De Anda, JOHN)1941 (Given - Provider: Solitario Cintron, JOHN) 0816 (Given - Provider: Anitha Lynn RRT) buPROPion SR (WELLBUTRIN SR) 12 hour tablet 150 mg 150 mg, oral, 2 times daily, First dose on Tue07/17/23 at 0900, Do not crush, chew, cut, dissolve, open or otherwise manipulate tablet/capsule., Indications: Anxiety with Depression 0943 (Given - Provider: Guerda Richards RN)2023 [...] mm Hg. 0943 (Given - Provider: Guerda Richards, BREA)1841 (Given - Provider: Guerda Richards RN) 0832 (Given - Provider: Rufina Santamaria, BREA)1650 (Given - Provider: Rufina Santamaria, BREA) 0934 (Given - Provider: Nan Bansal RN) famotidine (PEPCID) tablet 20 mg 20 mg, [...] 0832 (Given - Provider: Rufina Santamaria, BREA) 0934 [...] Garcia RN) 0940 (Given - Provider: Nan Bansal RN) potassium, sodium phosphates (PHOS-NAK) 280-160-250 mg [...] Guerda Richards RN)1230 (Given - Provider: Guerda Richards, BREA)1842 (Given - Provider: Guerda Richards RN) potassium, [...] Laura Garcia RN)0934 (Given - Provider: Nan Bansal RN)1730 (Due) psyllium (aspartame) SF (METAMUCIL SF) 3.4 gram packet 1 packet 1 packet, oral, Nightly, First dose (after last modification) on Tue07/18/23 at 2100, Indications: constipation 2028 (Not Given - Provider: Laura Garcia RN - Reason: Patient/family refused - Comment: pt had BM today) 2017 (Not Given - Provider: Laura Garcia RN - Reason: Patient/family refused) sacubitriL-valsartan (ENTRESTO) 24-26 mg tablet 1 tablet 1 tablet, oral, 2 times daily, First dose on Tue07/20/23 at 0800, Hold if systolic blood pressure less than 90 mm Hg., Indications: chronic heart failure 0944 (Given - Provider: Guerda Richards RN)2023 (Given - Provider: Laura Garcia RN) 0831 (Given - Provider: Rufina Santamaria RN)2014 (Given [...] Rufina Santamaria, BREA)2014 (Given - Provider: Laura Garcia, BREA) 0937 (Given - Provider: Nan Bansal, BREA) spironolactone (ALDACTONE) tablet 25 mg 25 mg, oral, Daily, First dose on Tue07/23/23 at 0845 0943 (Given - Provider: Guerda Richards, BREA) 0832 (Given - Provider: Rufina Santamaria RN) 0935 (Given - Provider: Nan Bansal, BREA) PRN Medication Order 07/27/2023 07/28/2023 07/29/2023 acetaminophen (TYLENOL) tablet 650 mg 650 mg, oral, Every 4 hours PRN, 1st line for pain, fever, Starting on Tue07/17/23 at 0650 0350 (Given - Provider: Bruna Hassan RN) 0327 (Given - Provider: Laura Garcia RN)1536 (Given - Provider: Rufina Santamaria, BREA) 0340 (Given - Provider: Laura Garcia RN) albuterol 2.5 mg /3 mL (0.083 %) nebulizer solution 2.5 mg 2.5 mg, nebulization, Every 4 hours PRN (direct response consultant), wheezing, shortness of breath, Starting on Tue07/18/23 at 1438 bisacodyl EC (DULCOLAX EC) tablet [...] - Provider: Laura Garcia RN) influenza quadrivalent [id number] (FLUZONE HIGH DOSE) 240 mcg/0.7 mL vaccine (HIGH DOSE age 65 years and up) 0.7 mL (COMPLETED) 0.7 mL, intramuscular, During hospitalization, immunization, Starting on Tue07/17/23 at 0419, For 1 dose, Indications: influenza vaccination 1223 (Given - Provider: Nan Bansal RN) magnesium hydroxide (MILK OF MAGNESIA) 80 mg/mL [...] furosemide (LASIX) tablet 40 mg 1 3 potassium, sodium phosphates (PHOS-NAK) 280-160-250 mg packet 1 packet 2 07/29/2023 3 atorvastatin (LIPITOR) tablet 10 mg 1 07/27 budesonide-formoteroL (SYMBI DEZ) 160-4.5 mcg/actuation inhaler 2 puff 1 07/27/2023 bisacodyl EC (DULCOLAX EC) tablet 10 mg 1 1 09/25/2022 magnesium hydroxide (MILK OF MAGNESIA) 80 mg/mL (33.3 mg/mL as elemental magnesium) oral suspension 30 mL 1 07/25/2023 mineral oil (FLEET MINERAL O IL) enema 133 mL 1 07/25/2023 sodium phosphate - potassium phosphate (K-PHOS NEUTRAL) tablet 250 mg 3 07/25/2023 furosemide (LASIX) 10 mg/mL injection 60 mg 4 07/24/2023 07/21/2023 spironolactone (ALDACTONE) tablet 25 mg 1 1 09/23/2022 albuterol 2.5 mg /3 mL (0.08 3 %) nebulizer solution 2.5 mg 2 07/20/2023 07/18/2023 apixaban (ELIQUIS) tablet 2.5 mg 2 07/20/20 23 07/19/2023 carvediloL (COREG) tablet 3.125 mg 1 2022 sacubitriL-valsartan (ENTRES TO) 24-26 mg tablet 1 tablet 1 07/20/2023 amiodarone (PACERONE) tablet 200 mg 2 07/19 apixaban (ELIQUIS) tablet 5 mg 1 07/19/2023 benzocaine (HURRICAINE) 20 % mouth spray 1 spray 2 07/19/2023 digoxin (LANOXIN) injection 125 mcg 1 07/19 digoxin (LANOXIN) injection 500 mcg 1 07/19 famotidine (PEPCID) tablet 20 mg 1 07/19/20 fentaNYL (SUBLIMAZE) preserv ative free injection 100 mcg 1 07/19/2023 lidocaine viscous (XYLOCAINE ) 2 % solution 15 mL 1 07/19/2023 midazolam (VERSED) 5 mg/mL p reservative free injection 5 mg 1 07/19/2023 sodium chloride 0.9% flush 5-10 mL 3 202207/18/2023 sodium chloride 0.9% flush 5-20 mL 1 2022 amiodarone (NEXTERONE) 150 m g/100 mL (1.5 mg/mL) in dextrose (premix) 150 mg 1 07/18/2023 amiodarone in dextrose (NEXT ERONE) 360 mg/200 mL (1.8 mg/mL) infusion (premix) 2 07/18/2023 dextrose 5% and sodium chlor yesy 0.45% infusion (premix) 1 07/18/2023 enoxaparin (LOVENOX) syringe 40 mg 3 202207/17/2023 acetaminophen (TYLENOL) tablet 650 mg 2 07/16/2023 buPROPion SR (WELLBUTRIN SR) 12 hour tablet 150 mg 1 07/17/2023 enoxaparin (LOVENOX) syringe 120 mg 1 07/17 famotidine (PEPCID) injection 20 mg 2 07/17 FLUoxetine (PROzac) capsule 40 mg 1 023 furosemide (LASIX) 10 mg/mL injection 40 mg 1 07/17/2023 HYDROcodone-acetaminophen (N ORCO) 5-325 mg per tablet 1 tablet 1 07/17/2023 influenza quadrivalent 2022- 2023 (FLUZONE HIGH DOSE) 240 mcg/0.7 mL vaccine (HIGH DOSE age 65 years and up) 0.7 mL 1 07/17/2023 ipratropium-albuteroL (DUO-N EB) 0.5-2.5 mg/3 mL nebulizer solution 3 mL 2 07/17/2023 07/16/20 miconazole 2 % powder 1 07/17/2023 nitroglycerin (NITRO-BID) 2 % ointment 0.5 inch 1 07/17/2023 ondansetron (ZOFRAN) injection 4 mg 3 07/1707/16/2023 psyllium (aspartame) SF (MET AMUCIL SF) 3.4 gram packet 1 packet 2 07/17/2023 sodium zirconium cyclosilica te (LOKELMA) packet 5 g 1 07/17/2023 albuterol HFA (PROVENTIL HFA ,VENTOLIN HFA,PROAIR HFA) 90 mcg/actuation inhaler 2 puff 1 07/16/2023 azithromycin (ZITHROMAX) 500 mg/250 mL in sodium chloride 0.9% (premix) 500 mg 1 07/16/2023 cefTRIAXone (ROCEPHIN) 1,000 mg/10 mL in sterile water (premix) 1,000 mg 1 07/16/2023 methylPREDNISolone sodium montgomery ccinate (SOLU-medrol) preservative free injection 125 mg 1 07/16/2023 sodium chloride 0.9% infusion 1 07/16/2023 Imaging Orders Without Results Count [...] Date First Orde red Date 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
--- OUTSIDE RECORDS SUMMARY | 2024-08-13 05:22 | XMS_ITS | Encounter Summary ---
Author Organization [facility] Address [address] [facility] [address] [place] [id number] Care Team Providers Care Cut Out Marker Name Role Phone Tristan Rivers MD Primary Care Provider [phone] Reason for Visit * Reason Comments Annual Exam Pt is here for a med [facility] physical. Encounter Details Date Type Department Care Team (Late st Contact Info) Description 09/20/2022 1:00 PM EFFICIENCY MINER BLASTING Office Visit [facility] Medical [facility] Primary Care at [address] [address] Tristan Rivers MD [address] [facility] [place] [address] Medicare annual wellness visit, subsequent (Primary Dx); Benign hypertension; Pure hypercholesterolemia; Acquired hypothyroidism; Hypertensive heart disease with chronic combined systolic and diastolic congestive heart failure (HCC); Class 3 severe obesity due to excess calories with serious comorbidity and body mass index (BMI) of 50.0 to 59.9 in adult (HCC); Recurrent major depressive disorder, in partial remission (HCC); Mild persistent asthma without complication Social History [...] on file Legal Sex Female 11:52 PM EFFICIENCY MINER BLASTING Gender Identity Female 09/15/2022 2:42 PM EFFICIENCY MINER BLASTING Sexual Orientation Straight 09/15/2022 2: 42 PM EFFICIENCY MINER BLASTING documented as of this encounter Last Filed Vital Signs Vital Sign Reading Time Taken Comments Blood Pressure 132/76 09/20/2022 12:39 PM EFFICIENCY MINER BLASTING Pulse 64 09/20/2022 12:39 PM EFFICIENCY MINER BLASTING Temperature 36.8 ??C (98.2 ??F) 09/20/2022 12:[address] Respiratory Rate - - Oxygen Saturation 98% 09/20/2022 12:39 PM EFFICIENCY MINER BLASTING Inhaled Oxygen Concentration - - Weight 131.1 kg (289 lb) 09/20/2022 12:39 PM EFFICIENCY MINER BLASTING Height 157.5 cm (5' 2 ) 09/20/2022 12:39 PM EFFICIENCY MINER BLASTING Body Mass Index 52.86 09/20/2022 12:39 PM EFFICIENCY MINER BLASTING documented in this encounter Ordered Prescriptions Prescription Sig Dispense Quantity Refills Last Filled Start Date End Date albuterol HFA (ProAir HFA) 90 mcg/actuation inhaler Inhale 2 puffs every 4 (four) hours as needed for shortness of breath As needed for wheezing 3 each 3 09/20/2022 3 cloNIDine (CATAPRES) 0.1 mg tablet TAKE 1 TABLET(0.1 MG) BY MOUTH TWICE DAILY 180 tablet 3 09/20/2022 3 documented in this encounter Progress Notes * Tristan Rivers MD - 09/20/2022 1:00 PM CST Images from the original note were not included. MEDICARE ANNUAL WELLNESS VISIT Lupis Juarez Basic Information In general, would you say your health is: Fair Do you have an advance directive, such as a living will or durable power of finance attorney?: Yes Do you have to strain or struggle to hear/understand conversations?: No Have you experienced any of the following problems currently or recently? Eating: No Grooming: No Bathing: No Walking: Yes Using the toilet: Yes Memory problems: No Difficulty speaking: No Pain: No Sexual Health: No Fatigue: No Have you experienced any of the following problems currently or recently? Laundry and/or housekeeping: No Handling Money: No Shopping: Yes Food preparation: No Transportation: Yes Taking and/or getting your own medications: No Do you use prescription drugs that are not prescribed for you?: No Chief complaint: Annual Exam (Pt is here for a medicare physical. ) HPI: Patient is a 77 year old female, presenting for annual wellness exam. Bowel Movements: -has mix of loose stool and episodes of constipation -no medications that impact bowel movements - Hypercholesterolemia: -well controllled, lipids at target for heart disease HF 2/2 HTN: HTN: -well contorlled; bp at target, no chest pain; has sensation of pressure on chest Obesity: -weight is stable, no significant changes - IGT: Hypothyroidism: -last TSH at target MDD: Pretty good mood; tries to keep attitude up Chronic Pain: -rare use of hydrocodone Pain Management Plan: -Alternative Medications: patient to use tylenol and ibuprofen for typical pain; can use Hydrocodone 5 mg prn for severe pain -Severity of Pain: pain is usually tolerable, occasional increased and impacts patient's function status; this is improved with use of Hydrocodone 5 mg prn -Management of Pain with current medications: generally well controlled; has occasional excerbation -Risk for OUD: None -Referral to Specialist: Not appropriate, no benefit to patient give rare exacerbations of pain Asthma: -uses allergy pills during the spring season; -currentl has sensation of congestion -usin Advair and Flonase BID Elevated Alk Phos: -stable from prior Past Medical History: Diagnosis Date Asthma COPD (chronic obstructive pulmonary disease) ([facility]) ([facility]) History of transfusion HX OTHER MEDICAL 01-[employer] 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 HX OTHER MEDICAL IGT Hypertension Moderate episode of recurrent major depressive disorder ([facility]) 12/05/2017 Past Surgical History: Procedure Laterality Date RHINOPLASTY RHINOPLASTY Family History Problem Relation Age of Onset Dementia Mother Dementia; Hypertension Mother Hypertension; Depression Mother Depression; Dementia Father Dementia; Hypertension Father Hypertension; Hypertension Brother Hypertension; Social History Tobacco Use Smoking status: Never Smokeless tobacco: Never Substance and Sexual Activity Drug use: No Sexual activity: Defer Alcohol Use: Not on file Allergies: Allergies Allergen Reactions Quinapril Other (See comments) Reaction: swollen mouth, Current Medications: Outpatient Encounter Medications as of 09/20/2022 Medication Sig Dispense Refill atorvastatin (LIPITOR) 10 mg tablet TAKE 1/2 TABLET BY MOUTH EVERY DAY 45 tablet 3 buPROPion SR (ZYBAN) 150 mg 12 hr tablet TAKE 1 TABLET(150 MG) BY MOUTH TWICE DAILY 180 tablet 3 cyanocobalamin (Vitamin B-12) 500 mcg tablet Take 1/2 tab mond thru frid and skip tue and 45 tablet 3 FLUoxetine (PROzac) 40 mg capsule [...] (two) times a day 180 tablet3 HYDROcodone-acetaminophen ([place]) 5-325 mg per tablet Take 1 tablet by mouth every 6 hours as needed for pain 40 tablet 0 irbesartan (AVAPRO) 300 mg tablet TAKE 1 TABLET BY MOUTH EVERY DAY 90 tablet 3 loratadine (CLARITIN) 10 mg tablet TAKE 1 TABLET BY MOUTH DAILY 90 tablet 0 [DISCONTINUED] albuterol HFA (ProAir HFA) 90 mcg/actuation inhaler Inhale 2 puffs every 4 (four) hours as needed for shortness of breath As needed for wheezing 3 each 3 [DISCONTINUED] cloNIDine (CATAPRES) 0.1 mg tablet TAKE 1 TABLET(0.1 MG) BY MOUTH TWICE DAILY 180 tablet 3 albuterol HFA (ProAir HFA) 90 mcg/actuation inhaler Inhale 2 puffs every 4 (four) hours as needed for shortness of breath As needed for wheezing 3 each 3 cloNIDine (CATAPRES) 0.1 mg tablet TAKE 1 TABLET(0.1 MG) BY MOUTH TWICE DAILY 180 tablet 3 No facility-administered encounter medications on file as of 09/20/2022. Review of Systems Constitutional: Negative for activity change, chills, fatigue and fever. HENT: Positive for hearing loss and rhinorrhea. Negative for congestion and sore throat. Eyes: Negative for visual disturbance. Respiratory: Positive for chest tightness (pressure). Negative for cough and shortness of breath. Cardiovascular: Negative for chest pain. Gastrointestinal: Positive for abdominal pain and constipation. Negative for diarrhea, nausea and vomiting. Endocrine: Negative for polydipsia and polyuria. Genitourinary: Positive for difficulty urinating. Musculoskeletal: Positive for arthralgias. Negative for myalgias. Allergic/Immunologic: Positive for environmental allergies. Neurological: Positive for tremors and weakness. Negative for dizziness and headaches. Psychiatric/Behavioral: Negative for dysphoric mood and sleep disturbance. The patient is not nervous/anxious. Vitals: Vitals: 09/20/22 1239 BP: 132/76 BP Location: Right arm Patient Position: Sitting Pulse: 64 Temp: 36.8 ??C (98.2 ??F) TempSrc: Oral SpO2: 98% Weight: 131.1 kg (289 lb) Height: 157.5 cm (5' 2 ) Physical Exam Vitals reviewed. Constitutional: Appearance: Normal [...] Skin: General: Skin is warm and dry. Comments: Dry, flaking on BLE Neurological: General: No focal deficit present. Mental Status: She is alert and oriented to person, place, and time. Psychiatric: Mood and Affect: Mood normal. Behavior: Behavior normal. Thought Content: Thought content normal. Depression Screen: PHQ Screening Over the last 2 weeks, how often have you been bothered by any of the following problems? Little Interest or Pleasure in Doing Things: Not at all Feeling Down, Depressed, or Hopeless: Not at all PHQ-2 Total Score (If total score is 3 or more points, staff should administer the PHQ-9): 0 Over the past 2 weeks, how often have you been bothered by any of the following problems? Little Interest or Pleasure in Doing Things: Not at all Feeling Down, Depressed, or Hopeless: Not at all PHQ-2 Total Score (If total score is 3 or more points, staff should administer the PHQ-9): 0 Diet: Breakfast: 2 pieces of toast with light jam and butter Lunch: bread with cheese and lunch meat Dinner: general dinner Snack: cookie or crackers Physical Activities: Never Functional Capacity Patient is able to perform the following: ADLs Bathing (Standby Assistance of Another Person) Dressing (Hands-on assistance of another person) Eating/Feeding (Independent (without device)) Tolieting (Hands-on assistance of another person) Transferring (Hands-on assistance of another person) Continence (Hands-on assistance of another person) IADLs Meal Preparation Dependent Medication Management (IADLs Score: Partially Dependent (who )) Shopping (IADLs Score: Totally Dependent (who )) Laundry (IADLs Score: Totally Dependent (who )) Transportation Arrangements (IADLs Score: Totally Dependent (who )) Driving (IADLs Score: Totally Dependent (who )) Telephone Use (IADLs Score: Independent) Money Management (IADLs Score: Independent) Up and Go Test: Patient was unsteady or time test was longer than 30 seconds? Yes STEADI Fall Risk Screening: In the past year, patient experienced: One or more falls in the last year: No Incontinence: Are you experiencing or have concern about urine leakage? Yes - uses pads Detection of Cognitive Impairment: The patient does not have cognitive impairment based on direct observation, discussion with patientor family, or review of medical records SLUMS test done today: Advanced Directive Durable Power of Appraiser Art: Yes Living Will: Yes Care Team Providers: Patient Care Team: Tristan Rivers MD as PCP - General (Family Medicine) Primary Pharmacy/DME suppliers: [facility] #[id number] [place], [place] - [address] AT [address] & [employer] [address] [facility] [id number] Counseling and Referral of Preventative Services: Please see patient instructions section for recommendations for appropriate screening and monitoring guidelines. Health Maintenance: Health Maintenance Topics with due status: Overdue Topic Date Due Hepatitis C Screening Never done Zoster Vaccines Never done Osteoporosis Screening-Bone Density Scan 01/23/2014 Colon Cancer Screening-Colonoscopy 03/28/2018 Covid-19 Vaccine 06/25/2021 Influenza Vaccine 04/01/2022 Well Visit 65+ 05/28/2022 Health Maintenance Topics with due status: Not Due Topic Last Completion Date DTaP/Tdap/Td Vaccine 12/31/2013 Fall Risk Assessment 09/20/2022 Depression Screening-PHQ 09/20/2022 Health Maintenance Topics with due status: Completed Topic Last Completion Date Pneumococcal vaccine 65+ 05/20/2020 Health Maintenance Topics with due status: Discontinued Topic Date Due Colon Cancer Screening-DNA Stool Discontinued Colon Cancer Screening-CT Colonography Discontinued Colon Cancer Screening-FIT Discontinued Breast Cancer Screening-Mammogram Discontinued Colon Cancer Screening-Sigmoidoscopy Discontinued Colon Cancer Screening-FOBT Discontinued Patient here for annual Medicare wellness visit and for review of complete medical problem list. All the elements of the plan were completed as outlined by CMS. A copy of the prevention plan was given to the patient. I reviewed Medicare Wellness Questionnaire (other physicians involved in care, depression screen, advanced directives), cognitive/memory, and functional assessment. Forms scanned into chart/HRA form reviewed in chart. I reviewed and updated the complete problem list, medication list, surgical history, social history, family history, and immunization records with the patient. I provided preventive counseling and early detection interventions to the patient through health maintenance update and summary of today's office visit. Assessment and Plan: Diagnoses and all orders for this visit: Medicare annual wellness visit, subsequent (Primary) Benign hypertension Assessment & Plan: Stable, well controlled; blood pressure at target, no chest pain the patient does report some pressure-like sensation on chest Continue irbesartan 300 mg daily, furosemide 20 mg b.i.d. Orders: - Lipid panel; Future - Comprehensive metabolic panel; Future - CBC with auto differential; Future Pure hypercholesterolemia Assessment & Plan: Stable, well controlled; lipids at target for heart disease; no myalgias from medication Continue atorvastatin 10 mg daily Orders: - Lipid panel; Future - Comprehensive metabolic panel; Future - CBC with auto differential; Future Acquired hypothyroidism Assessment & Plan: Stable, generally well controlled, TSH at target Continue to monitor at regular intervals, every 6-12 Orders: - TSH reflex to free T4; Future Hypertensive heart disease with chronic combined systolic and diastolic congestive heart failure (HCC) Assessment & Plan: Stable, patient has chronic peripheral edema; no evidence of pulmonary edema or excess fluid retention Continue to manage blood pressure and cholesterol levels Class 3 severe obesity due to excess calories with serious comorbidity and body mass index (BMI) of50.0 to 59.9 in adult (HCC) Assessment & Plan: Weight is stable from prior, no significant changes; patient unable to perform most activities as she is wheelchair-bound and has high risk of falls; would encourage patient to work on generalized chair exercises in order to maintain muscle mass Continue with portion control diet Recurrent major depressive disorder, in partial remission (HCC) Assessment & Plan: Stable, generally well controlled, patient reports tries to keep mood and attitude up Continue bupropion 150 mg b.i.d., fluoxetine 40 mg daily Mild persistent asthma without complication Assessment & Plan: Stable, generally well controlled, symptoms worsened during spring Currently has sense of chest congestion, though pulmonary exam clear Continue Wixela and Flonase b.i.d. for management of asthma Continue Claritin 10 mg daily Other orders - cloNIDine (CATAPRES) 0.1 mg tablet; TAKE 1 TABLET(0.1 MG) BY MOUTH TWICE DAILY - albuterol HFA (ProAir HFA) 90 mcg/actuation inhaler; Inhale 2 puffs every 4 (four) hours as needed for shortness of breath As needed for wheezing Tristan Rivers MD CIENCY MINER BLASTING CIENCY MINER BLASTING documented in this encounter Miscellaneous Notes * Assessment & Plan Note - Tristan Rivers MD - 09/20/2022 2:08 PM EFFICIENCY MINER BLASTING Associated Problem(s): Mild persistent asthma without complication Stable, generally well controlled, symptoms worsened during spring Currently has sense of chest congestion, though pulmonary exam clear Continue Wixela and Flonase b.i.d. for management of asthma Continue Claritin 10 mg daily CIENCY MINER BLASTING * Assessment & Plan Note - Tristan Rivers MD - 09/20/2022 2:07 PM EFFICIENCY MINER BLASTING Associated Problem(s): Recurrent major depressive disorder, in partial remission (HCC) Stable, generally well controlled, patient reports tries to keep mood and attitude up Continue bupropion 150 mg b.i.d., fluoxetine 40 mg daily CIENCY MINER BLASTING * Assessment & Plan Note - Tristan Rivers MD - 09/20/2022 2:07 PM EFFICIENCY MINER BLASTING Associated Problem(s): Acquired hypothyroidism Stable, generally well controlled, TSH at target Continue to monitor at regular intervals, every 6-12 CIENCY MINER BLASTING * Assessment & Plan Note - Tristan Rivers MD - 09/20/2022 2:06 PM EFFICIENCY MINER BLASTING Associated Problem(s): Class 3 severe obesity due to excess calories with serious comorbidity and body mass index (BMI) of 40.0 to 44.9 in adult (HCC) Weight is stable from prior, no significant changes; patient unable to perform most activities as she is wheelchair-bound and has high risk of falls; would encourage patient to work on generalized chair exercises in order to maintain muscle mass Continue with portion control diet CIENCY MINER BLASTING * Assessment & Plan Note - Tristan Rivers MD - 09/20/2022 2:05 PM EFFICIENCY MINER BLASTING Associated Problem(s): Hypertensive heart disease with congestive heart failure (HCC) (Deleted) Stable, patient has chronic peripheral edema; no evidence of pulmonary edema or excess fluid retention Continue to manage blood pressure and cholesterol levels CIENCY MINER BLASTING * Assessment & Plan Note - Tristan Rivers MD - 09/20/2022 2:05 PM EFFICIENCY MINER BLASTING Associated Problem(s): Benign hypertension Stable, well controlled; blood pressure at target, no chest pain the patient does report some pressure-like sensation on chest Continue irbesartan 300 mg daily, furosemide 20 mg b.i.d. CIENCY MINER BLASTING * Assessment & Plan Note - Tristan Rivers MD - 09/20/2022 2:04 PM EFFICIENCY MINER BLASTING Associated Problem(s): Pure hypercholesterolemia Stable, well controlled; lipids at target for heart disease; no myalgias from medication Continue atorvastatin 10 mg daily CIENCY MINER BLASTING * Assessment & Plan Note - Tristan Rivers MD - 09/20/2022 1:00 PM EFFICIENCY MINER BLASTING Associated Problem(s): Takotsubo cardiomyopathy >>ASSESSMENT AND PLAN FOR HYPERTENSIVE HEART DISEASE WITH CONGESTIVE HEART FAILURE (HCC) WRITTEN ON 09/20/2022 2:06 PM BY TRISTAN RIVERS MD Stable, patient has chronic peripheral edema; no evidence of pulmonary edema or excess fluid retention Continue to manage blood pressure and cholesterol levels * Addendum Note - Suzy Miles CLT - 09/20/2022 1:00 PM CSTAddended by: SUZY MILES on: 03/21/2023 09:22 AM Modules accepted: Orders documented in this encounter Plan of Treatment Not on file documented as of this encounter Results * Lipid panel (03/21/2023 9:22 AM CDT) [facility] Signature Cholesterol 150 30 - 199 mg/dL TATE [...] on 2018. Triglycerides 61 <=149 mg/dL TATE Comment: Interpretive Data Ages < or = [...] on 2018. HDL 76 >=40 mg/dL TATE Comment: Interpretive Data Ages < or = [...] 2018. LDL, calculated 62 <=129 mg/dL TATE Comment: Interpretive Data Ages < or = [...] revised on 2018. Non-HDL Cholesterol 74 mg/dL [facility] Comment: Interpretive Data Ages [...] CDT 03/21/2023 3:43 PM CDT us Tristan Rivers MD LAB BLOOD ORDERABLES Lisa mazariegos Result [facility] [id number] Department [place] [address] * TSH reflex to free T4 (03/21/2023 9:22 AM CDT) TSH 4.13 0.30 - 4.20 mcIUnit/mL [facility] Blood 03/21/2023 9:22 AM CDT 03/21/2023 3:43 PM CDT Tristan Rivers MD LAB BLOOD ORDERABLES Lisa l Result [facility] [id number] [place] [address] * (ABNORMAL) CBC with auto differential (03/21/2023 9:22 AM CDT) WBC 10.0(H) 3.8 - 9.9 K/cumm [facility] [...] NRBC abs 0.00 0.00 - 0.01 K/cumm [facility] Blood 03/21/2023 9:22 AM CDT 03/21/2023 3:43 PM CDT Tristan Rivers MD LAB BLOOD ORDERABLES Lisa l Result [facility] [id number] [place] [address] * (ABNORMAL) Comprehensive metabolic panel (03/21/2023 9:22 AM CDT) Sodium 138 135 - 145 mmol/L [facility] Potassium, pl 4.2 3.3 - 4.9 [...] CDT 03/21/2023 3:43 PM CDT us Tristan Rivers MD LAB BLOOD ORDERABLES Lisa mazariegos Result [facility] [id number] Department [place] [address] documented in this encounter Visit Diagnoses Diagnosis Medicare annual wellness visit, subsequent- Primary Benign hypertension Essential hypertension, benign Pure hypercholesterolemia Acquired hypothyroidism Unspecified hypothyroidism Hypertensive heart disease with chronic combined systolic and diastolic congestive heart failure (HCC) Class 3 severe obesity due to excess calories with serious comorbidity and body mass index (BMI) of 50.0 to 59.9 in adult (HCC) Recurrent major depressive disorder, in partial remission (HCC) Mild persistent asthma without complication documented in this encounter Discontinued Medications Medication Sig Discontinue Reason Start Date End Da te cloNIDine (CATAPRES) 0.1 mg tablet TAKE 1 TABLET(0.1 MG) BY MOUTH TWICE DAILY Reorder 05/28/2021 09/20/2022 albuterol HFA (ProAir HFA) 90 mcg/actuation inhaler Inhale 2 puffs every 4 (four) hours as needed for shortness of breath As needed for wheezing Reorder 05/28/2021 09/20/2022 documented as of this encounter Care Teams Cut Out Marker Relationship Specialty Start Date End Date Tristan Rivers MD [address] [place] [address] PCP - General Family Medicine 03/15/22 documented as of this encounter
--- OUTSIDE RECORDS SUMMARY | 2024-08-13 05:22 | XMS_ITS | Encounter Summary ---
Author Organization [facility] Address [address] [address] Care Team Providers Care Ip Litigation Associate Name Role Phone Tristan Watson MD Primary Care Provider [phone] Encounter Details Date Type Department Care Team (Late st Contact Info) Description 03/21/2023 9:15 AM CDT Lab [facility] Outpatient Lab at [address] [address] Benign hypertension (Primary Dx) Social History Tobacco Use Types [...] on file Legal Sex Female 11:52 PM ARABIC TRANSLATOR Gender Identity Female 09/15/2022 2:42 PM ARABIC TRANSLATOR Sexual Orientation Straight 09/15/2022 2: 42 PM ARABIC TRANSLATOR documented as of this encounter Plan of Treatment Not on file documented as of this encounter Visit Diagnoses Diagnosis Benign hypertension- Primary Essential hypertension, benign documented in this encounter Care Teams Ip Litigation Associate Relationship Specialty Start Date End Date [place]istan [place] [address] PCP - General Family Medicine 03/15/22 documented as of this encounter
--- OUTSIDE RECORDS SUMMARY | 2024-08-13 05:22 | XMS_ITS | Encounter Summary ---
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 Gender Identity Female 09/15/2022 2:42 PM HIGH SCHOOL COMPUTER SCIENCE TEACHER Sexual Orientation Straight 09/15/2022 2: 42 PM HIGH SCHOOL COMPUTER SCIENCE TEACHER documented as of this encounter Plan of Treatment Not on file documented as of this encounter Procedures Procedure Name Priority Date/Time Associated Diagnosis Comments EGFR Routine 03/15/2022 1:52 PM CDT Establishing care with new doctor, encounter for Benign hypertension DIFFERENTIAL AUTO Routine 03/15/2022 1:5 2 PM CDT Establishing care with new doctor, encounter for Benign hypertension CBC WITH AUTO DIFFERENTIAL Routine 03/15/2022 1:52 PM CDT Establishing care with new doctor, encounter for Benign hypertension LIPID PANEL Routine 03/15/2022 1:52 PM CDT Establishing care with new doctor, encounter for Benign hypertension COMPREHENSIVE METABOLIC PANEL Routine 03/15/2022 1:52 PM CDT Establishing care with new doctor, encounter for Benign hypertension documented in this encounter Results * eGFR (03/15/2022 1:52 PM CDT) [facility] eGFR 83 mL/min/1. 73 m2 [facility] Comment: Interpretive [...] interpretive data was last reviewed 2021. Blood 03/15/2022 1:52 PM CDT 03/15/2022 8:26 PM CDT us Tristan Watson MD LAB BLOOD ORDERABLES Lisa mazariegos Result [facility] [address] Department [place] [address] * (ABNORMAL) Differential, auto (03/15/2022 1:52 PM CDT) Neutrophil abs 8.3(H) 1.7 - 6.5 K/cumm [facility] Imm gran abs 0.1 0.0 - 0.1 K/cumm [facility] Lymphocyte abs 2.1 0.8 - 3.3 K/cumm [facility] Monocyte abs 0.8 0.2 - 0.8 K/cumm [facility] Eosinophil abs 0.0 0.0 - 0.5 K/cumm [facility] Basophil abs 0.1 0.0 - 0.1 K/cumm [facility] Neutrophil pct 72.9 % [facility] Comment: Interpretive Data Percent cell count reference ranges are not reported, since discordance with absolute values may lead to misinterpretation of CBC data. Current Interpretive Data was last revised on 2017. Imm gran pct 0.6 % [facility] Comment: Interpretive Data Percent cell count reference ranges are not reported, since discordance with absolute values may lead to misinterpretation of CBC data. Current Interpretive Data was last revised on 2017. Lymphocyte pct 18.4 % [facility] Comment: Interpretive Data Percent cell count reference ranges are not reported, since discordance with absolute values may lead to misinterpretation of CBC data. Current Interpretive Data was last revised on 2017. Monocyte pct 7.2 % [facility] Comment: Interpretive Data Percent cell count reference ranges are not reported, since discordance with absolute values may lead to misinterpretation of CBC data. Current Interpretive Data was last revised on 2017. Eosinophil pct 0.0 % [facility] Comment: Interpretive Data Percent cell count reference ranges are not reported, since discordance with absolute values may lead to misinterpretation of CBC data. Current Interpretive Data was last revised on 2017. Basophil pct 0.9 % [facility] Comment: Interpretive Data Percent cell count reference ranges are not reported, since discordance with absolute values may lead to misinterpretation of CBC data. Current Interpretive Data was last revised on 2017. Blood 03/15/2022 1:52 PM CDT 03/15/2022 8:03 PM CDT us Tristan Watson MD LAB BLOOD ORDERABLES Lisa yair Result [facility] [address] [address] Department [place] [address] * Lipid panel (03/15/2022 1:52 PM CDT) Cholesterol 170 30 - 199 mg/dL [facility] Comment: [...] Data was last revised on 2018. Triglycerides 122 <=149 mg/dL [facility] Comment: Interpretive Data [...] Data was last revised on 2018. HDL 80 >=40 mg/dL [facility] Comment: Interpretive Data [...] was last revised on 2018. LDL, calculated 66 <=129 mg/dL [facility] Comment: Interpretive Data [...] was last revised on 2018. Non-HDL Cholesterol 90 mg/dL [facility] Comment: Interpretive Data Ages [...] 2018. Chol/HDL ratio 2 [facility] Blood 03/15/2022 1:52 PM CDT 03/15/2022 8:03 PM CDT us Tristan Watson MD LAB BLOOD ORDERABLES Lisa yair Result [facility] [address] Department [place] [address] * (ABNORMAL) Comprehensive metabolic panel (03/15/2022 1:52 PM CDT) Sodium 139 135 - 145 mmol/L [facility] Potassium, pl 4.5 3.3 - 4.9 mmol/L [facility] Chloride 103 97 - 110 mmol/L [facility] CO2 25 22 - 32 mmol/L [facility] Anion gap 11 2 - 15 mmol/L [facility] BUN 20 8 - 25 mg/dL [facility] Creatinine 0.75 0.60 - 1.10 mg/dL [facility] Glucose 97 70 - 199 mg/dL [facility] Comment: Interpretive Data Fasting glucose >/= 126 [...] classification and Diagnosis of Diabetes Diabetes Care 2017;40 (Suppl. 1):S11. Current interpretive data was last revised 2017. Calcium 9.6 8.5 - 10.3 mg/dL [facility] Bilirubin, total 0.4 0.1 - 1.2 mg/dL [facility] Protein, pl 7.6 6.5 - 8.5 g/dL [facility] Albumin 3.8 3.5 - 5.0 g/dL [facility] Alk phos 179(H) 40 - 130 Units/L [facility] ALT 7 7 - 45 Units/L [facility] AST 22 10 - 45 Units/L [facility] Blood 03/15/2022 1:52 PM CDT 03/15/2022 8:03 PM CDT Tristan Watson MD LAB BLOOD ORDERABLES [place] [address] [address] Department [place] [address] * (ABNORMAL) CBC with auto differential (03/15/2022 1:52 PM CDT) WBC 11.3(H) 3.8 - 9.9 K/cumm [facility] Hgb 14.5 11.9 - 15.5 g/dL [facility] Hct 45.2 35.6 - 45.5 % [facility] Plt 316 150 - 400 K/cumm [facility] MPV 9.9 9.1 - 12.3 fL [facility] RBC 4.63 3.90 - 5.20 M/cumm [facility] MCV 97.6(H) 81.3 - 96.4 fL [facility] MCH 31.3 27.1 - 33.3 pg [facility] MCHC 32.1(L) 32.3 - 35.7 g/dL [facility] RDW CV 14.8 11.1 - 14.9 % [facility] RDW SD 53.5(H) 35.7 - 48.1 fL [facility] NRBC abs 0.00 0.00 - 0.01 K/cumm [facility] Blood 03/15/2022 1:52 PM CDT 03/15/2022 8:03 PM CDT us Tristan Watson MD LAB BLOOD ORDERABLES Lisa l Result [facility] [address] [address] Department [place] [address] documented in this encounter Visit Diagnoses Diagnosis Establishing care with new doctor, encounter for Benign hypertension Essential hypertension, benign documented in this encounter Care Teams Heel Seat Trimmer Relationship Specialty Start Date End [place] [address] PCP - General Family Medicine 03/15/22 documented as of this encounter
--- OUTSIDE RECORDS SUMMARY | 2024-08-13 05:22 | XMS_ITS | Encounter Summary ---
Author Organization [facility] Address [address] [address] Care Team Providers Care Software Test And Validation Engineer Name Role Phone Tristan Watson MD Primary Care Provider [phone] Encounter Details Date Type Department Care Team (Late st Contact Info) Description 09/15/2022 9:15 AM SUBSTATION SUPERINTENDENT Lab [facility] Outpatient Lab at [address] [address] Acquired hypothyroidism Social History Tobacco Use Types [...] on file Legal Sex Female 11:52 PM SUBSTATION SUPERINTENDENT Gender Identity Female 09/15/2022 2:42 PM SUBSTATION SUPERINTENDENT Sexual Orientation Straight 09/15/2022 2: 42 PM SUBSTATION SUPERINTENDENT documented as of this encounter Plan of Treatment Not on file documented as of this encounter Visit Diagnoses Diagnosis Acquired hypothyroidism Unspecified hypothyroidism documented in this encounter Care Teams Software Test And Validation Engineer Relationship Specialty Start Date End [place] [address] PCP - General Family Medicine 03/15/22 documented as of this encounter
--- OUTSIDE RECORDS SUMMARY | 2024-08-13 05:22 | XMS_ITS | Encounter Summary ---
Author Organization [facility] Address [address] [facility] [address] [place] [address] Care Team Providers Care Fur Designer Name Role Phone Tristan Watson MD Primary Care Provider [phone] Reason for Visit * Reason Onset Date Comments Call Back 03/29/2022 Encounter Details Date Type Department Care Team (Late st Contact Info) Description 03/29/2022 Telephone [facility] [address] [address] Tristan Watson MD [address] [place] [address] Call Back Social History Tobacco Use Types Packs/Day Years [...] on file Legal Sex Female 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 Informed of results. Verified understanding. * Telephone Encounter - Teofilo Kim - 03/29/2022 2:37 PM CDT Call Back Caller???s Concern: Pt returning a voicemail left by Acosta. Reached out to the [facility] and warm transferred the pt. Caller???s Call back #: [phone] Does message need to be routed? No * Telephone Encounter - Acosta Hill MA - 03/29/2022 11:14 AM CDT Attempted to contact patient. Home phone no longer working. LMOVM for cell phone number. Patient has not logged into [facility] since 2019. Requested patient to return call to discuss results. * Telephone Encounter - Acosta Hill MA - 03/29/2022 11:14 AM CDT ----- Message from Tristan Watson MD sent at 03/26/2022 9:44 AM CDT ----- Review sent via [employer], repeat labs prior to next visit Mildly elevated Alk Phos, consistent with prior, normal Ca levels, low concern for abnormal bone turnover. documented in this encounter Plan of Treatment Not on file documented as of this encounter Visit Diagnoses Not on filedocumented in this encounter Care Teams Fur Designer Relationship Specialty Start Date [place] [address] PCP - General Family Medicine 03/15/22 documented as of this encounter
--- OUTSIDE RECORDS SUMMARY | 2024-08-13 05:22 | XMS_ITS | Encounter Summary ---
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 Gender Identity Female 09/15/2022 2:42 PM COMMUNITY SERVICE PATROL OFFICER Sexual Orientation Straight 09/15/2022 2: 42 PM COMMUNITY SERVICE PATROL OFFICER documented as of this encounter Miscellaneous Notes * Telephone Encounter - Radha Fernando - 09/08/2022 2:51 PM CST Medical Question/Miscellaneous Caller???s Concern: confirmed lab orders are in chart Caller???s Call back #: [phone] Does message need to be routed?No UNITY SERVICE PATROL OFFICER documented in this encounter Plan of Treatment Not on file documented as of this encounter Visit Diagnoses Not on filedocumented in this encounter Care Teams Mechanical Applications Engineer Relationship Specialty Start Date End [place] [address] PCP - General Family Medicine 03/15/22 documented as of this encounter
--- OUTSIDE RECORDS SUMMARY | 2024-08-13 05:23 | XMS_ITS | Encounter Summary ---
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
--- OUTSIDE RECORDS SUMMARY | 2024-08-13 05:23 | XMS_ITS | Encounter Summary ---
Author Organization [facility] Facility Care Team Providers Care Materials Planner/Production Planner Name Role Phone Jarvis Boston MD Primary Care [facility] Encounter Details Date Type Department Care Team (Latest Contact Info) Description 07/02/2019 Travel Social History Tobacco Use Types Packs/Day Years Used Date Smoking Tobacco: Never Smokeless Tobacco: Never Alcohol Use Standard Drinks/Week Comments Not Currently 0 (1 standard drink = 0.6 oz pur e alcohol) no recently PHQ-2 Answer Date Recorded PHQ-2 Score 4 04/14/2019 Comments Unknown Sex and Gender Information Value Date Recorded Sex Assigned at Not on file Legal Sex Female 11:52 PM 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
--- OUTSIDE RECORDS SUMMARY | 2024-08-13 05:23 | XMS_ITS | Encounter Summary ---
Author Organization [facility] Medical Group Address [address] [place] [address] Care Team Providers Care Recreation Program Coordinator Name Role Phone Jarvis Boston MD Primary Care Provi [facility] Reason for Visit * Reason Comments Hypertension Encounter Details Date Type Department Care Team (Late st Contact Info) Description 07/09/2019 2:15 PM ASSISTANT PROFESSOR OF CHEMISTRY Office Visit [facility] [address] [place] [address] [address] [place] [phone] Jarvis Boston MD [address] [place] [id number] Benign hypertension (Primary Dx); BMI 50.0-59.9, adult (CMS/HCC); Morbid obesity with BMI of 50.0-59.9, adult (CMS/HCC); Cellulitis of left lower extremity; Chronic pain syndrome; Iron deficiency anemia due to chronic blood loss Social History Tobacco Use Types Packs/Day Years Used Date Smoking Tobacco: Never Smokeless Tobacco: Never Alcohol Use Standard Drinks/Week Comments Not Currently 0 (1 standard drink = 0.6 oz pur e alcohol) no recently PHQ-2 Answer Date Recorded PHQ-2 Score 0 07/09/2019 Comments Unknown Sex and Gender Information Value Date Recorded Sex Assigned at Not on file Legal Sex Female 11:52 PM ASSISTANT PROFESSOR OF CHEMISTRY Gender Identity Female 09/15/2022 2:42 PM ASSISTANT PROFESSOR OF CHEMISTRY Sexual Orientation Straight 09/15/2022 2: 42 PM ASSISTANT PROFESSOR OF CHEMISTRY documented as of this encounter Last Filed Vital Signs Vital Sign Reading Time Taken Comments Blood Pressure 124/74 07/09/2019 2:09 PM ASSISTANT PROFESSOR OF CHEMISTRY Pulse 68 07/09/2019 2:09 PM ASSISTANT PROFESSOR OF CHEMISTRY Temperature - - Respiratory Rate 18 07/09/2019 2:09 PM ASSISTANT PROFESSOR OF CHEMISTRY Oxygen Saturation - - Inhaled Oxygen Concentration - - Weight - - Height 157.5 cm (5' 2 ) 07/09/2019 2:09 PM ASSISTANT PROFESSOR OF CHEMISTRY Body Mass Index - - documented in this encounter Ordered Prescriptions Prescription Sig Dispense Quantity Refills Last Filled Start Date End Date ferrous sulfate 325 mg (65 mg of elemental iron) tabletIndications: Iron Deficiency Anemia Take 1 tablet (325 mg total) by mouth 2 (two) times a day with meals 60 tablet 11 07/09/2019 05/20/2020 buPROPion SR (ZYBAN) 150 mg 12 hr tablet Take 1 tablet (150 mg total) by mouth 2 (two) times a day 180 tablet 3 07/09/2019 07/28/2020 documented in this encounter Progress Notes * Jarvis Boston MD - 07/09/2019 2:15 PM CST Subjective/Objective Patient ID: Lupis Juarez is a 74 y.o. female. Chief Complaint Hypertension celulitis clreased an d few cars of antibiotics. htn Review of Systems Constitutional: Negative. HENT: Negative for congestion, ear pain, facial swelling, hearing loss, mouth sores, nosebleeds, postnasal drip, rhinorrhea, sinus pressure, sneezing, sore throat, tinnitus, trouble swallowing and voice change. Eyes: Negative. Respiratory: Negative. Cardiovascular: Negative. Gastrointestinal: Negative. Endocrine: Negative. Genitourinary: Negative for decreased urine volume, difficulty urinating, dysuria, flank pain, frequency, genital sores, hematuria and urgency. Nocturia negative Musculoskeletal: Negative. Skin: Negative for skin lesions Negative for puritis Negative for hives Neurological: Negative. Hematological: Negative. Psychiatric/Behavioral: Negative. Vitals: 07/09/19 1409 BP: 124/74 Pulse: 68 Resp: 18 Height: 157.5 cm (5' 2 ) Physical Exam Constitutional: Appearance: She is well-developed. HENT: Head: Normocephalic and atraumatic. Eyes: Pupils: Pupils are equal, round, and reactive to light. Neck: Musculoskeletal: Normal range of motion and neck supple. Cardiovascular: Rate and Rhythm: Normal rate and regular rhythm. Pulmonary: Effort: Pulmonary effort is normal. Breath sounds: Normal breath sounds. Abdominal: General: Bowel sounds are normal. Palpations: Abdomen is soft. Musculoskeletal: Normal range of motion. Skin: General: Skin is warm and dry. Comments: Lower leg skin changes markedly bleltter and Post main issue Neurological: Mental Status: She is alert and oriented to person, place, and time. Psychiatric: Behavior: Behavior normal. Thought Content: Thought content normal. Judgment: Judgment normal. Assessment/Plan Diagnoses and all orders for this visit: Benign hypertension (Primary) Assessment & Plan: The bp good and no changes On [...] be able to reach the goal bp. Orders: - Comprehensive metabolic panel; Future BMI 50.0-59.9, adult (CMS/HCC) Morbid obesity with BMI of 50.0-59.9, adult (CMS/HCC) Cellulitis of left lower extremity Assessment & Plan: Posterior lower legs with chronic changes more and over all the legs redness gone and no ac tive infectoin. Chronic pain syndrome Assessment & Plan: Pain meds reduced taking 1-2 a day and this will hope to cont. Iron deficiency anemia due to chronic blood loss Assessment & Plan: Iron def and on iron an dcont and check cnts and iron Orders: - Iron profile w/ IBC; Future - CBC with auto differential; Future Other orders - buPROPion SR (ZYBAN) 150 mg 12 hr tablet; Take 1 tablet (150 mg total) by mouth 2 (two) times a day - ferrous sulfate 325 mg (65 mg of elemental iron) tablet; Take 1 tablet (325 mg total) by mouth 2 (two) times a day with meals Side effects, risks, interactions reviewed with patient. Indications for testing discussed. Any further problems to contact us. She was told what to look out for and verbalized understanding. The patient was given the opportunity to have all questions answered today and was in agreement with the plan of care. STANT PROFESSOR OF CHEMISTRY documented in this encounter Miscellaneous Notes * Assessment & Plan Note - Jarvis Boston MD - 07/09/2019 2:35 PM CSTAssociated Problem(s): Iron deficiency anemia due to chronic blood loss Iron def and on iron an dcont and check cnts and iron STANT PROFESSOR OF CHEMISTRY * Assessment & Plan Note - Jarvis Boston MD - 07/09/2019 2:32 PM CSTAssociated Problem(s): Chronic pain syndrome Pain meds reduced taking 1-2 a day and this will hope to cont. STANT PROFESSOR OF CHEMISTRY * Assessment & Plan Note - Jarvis Boston MD - 07/09/2019 2:27 PM CSTAssociated Problem(s): Class 3 severe obesity due to excess calories with serious comorbidity and body mass index (BMI) of 40.0 to 44.9 in adult (HCC) Morbid obesity is a bmi of 40 or more. Targeted weight loss with portion controll(calorie restriction) ,increased basal activity Levels along with adding an exercise program to lead to gradual weightloss,.Any program of change from weight watchers. To nutra system along with others work. STANT PROFESSOR OF CHEMISTRY * Assessment & Plan Note - Jarvis Boston MD - 07/09/2019 2:25 PM CSTAssociated Problem(s): Cellulitis of left lower extremity (Resolved 01/16/2020) Posterior lower legs with chronic changes more and over all the legs redness gone and no ac tive infectoin. STANT PROFESSOR OF CHEMISTRY * Assessment & Plan Note - Jarvis Boston MD - 07/09/2019 2:25 PM CSTAssociated Problem(s): Benign hypertension The bp good and no changes On [...] be able to reach the goal bp. STANT PROFESSOR OF CHEMISTRY * Addendum Note - Arabella Roth CLT - 07/09/2019 2:15 PM CSTAddended by: AARBELLA ROTH on: 09/03/2019 05:35 PM Modules accepted: Orders STANT PROFESSOR OF CHEMISTRY documented in this encounter Plan of Treatment Not on file documented as of this encounter Results * Iron profile w/ IBC (09/03/2019 9:45 AM ASSISTANT PROFESSOR OF CHEMISTRY) Iron 97 35 - 145 mcg/dl [facility] TIBC 250 250 - 400 mcg/dL [facility] Transferrin saturation 39 20 - 50 % [facility] Blood specimen (specimen) 09/03/2019 9:45 AM ASSISTANT PROFESSOR OF CHEMISTRY 09/03/2019 5:40 PM ASSISTANT PROFESSOR OF CHEMISTRY Jarvis Boston MD LAB BLOOD ORDERABLE S Final Result [facility] [id number] Department [place] [address] * (ABNORMAL) CBC with auto differential (09/03/2019 9:45 AM ASSISTANT PROFESSOR OF CHEMISTRY) WBC 9.6 3.8 - 9.9 K/cumm [facility] Hgb 15.4 11.9 - 15.5 g/dL [facility] Hct 47.2(H) 35.6 - 45.5 % [facility] Plt 247 150 - 400 K/cumm [facility] MPV 9.7 9.1 - 12.3 fL [facility] RBC 4.79 3.90 - 5.20 M/cumm [facility] MCV 98.5(H) 81.3 - 96.4 fL [facility] MCH 32.2 27.1 - 33.3 pg [facility] MCHC 32.6 32.3 - 35.7 g/dL [facility] RDW CV 13.6 11.1 - 14.9 % [facility] RDW SD 50.2(H) 35.7 - 48.1 fL [facility] NRBC abs 0.00 0.00 - 0.01 K/cumm [facility] Blood specimen (specimen) 09/03/2019 9:45 AM ASSISTANT PROFESSOR OF CHEMISTRY 09/03/2019 5:40 PM ASSISTANT PROFESSOR OF CHEMISTRY Jarvis Boston MD LAB BLOOD ORDERABLE S Final Result [facility] [id number] Department [place] [address] * (ABNORMAL) Comprehensive metabolic panel (09/03/2019 9:45 AM ASSISTANT PROFESSOR OF CHEMISTRY) Sodium 141 135 - 145 mmol/L [facility] Potassium, pl 4.1 3.3 - 4.9 mmol/L [facility] Chloride 102 97 - 110 mmol/L [facility] CO2 27 22 - 32 mmol/L [facility] Anion gap 12 2 - 15 mmol/L [facility] BUN 19 8 - 25 mg/dL [facility] Creatinine 0.56(L) 0.60 - 1.10 mg/dL [facility] Glucose 104 70 - 199 mg/dL [facility] Comment: Interpretive Data Fasting glucose >/= 126 [...] interpretive data was last revised 2017. Calcium 9.9 8.5 - 10.3 mg/dL [facility] Bilirubin, total 0.6 0.1 - 1.2 mg/dL [facility] Protein, pl 7.4 6.5 - 8.5 g/dL [facility] Albumin 3.9 3.5 - 5.0 g/dL [facility] Alk phos 135(H) 40 - 130 Units/L [facility] ALT 24 7 - 45 Units/L [facility] AST 22 10 - 45 Units/L [facility] Blood specimen (specimen) 09/03/2019 9:45 AM ASSISTANT PROFESSOR OF CHEMISTRY 09/03/2019 5:40 PM ASSISTANT PROFESSOR OF CHEMISTRY us Jarvis Boston MD LAB BLOOD ORDERABLE S Final Result [facility] [address] Department [place] [address] documented in this encounter Visit Diagnoses Diagnosis Benign hypertension- Primary Essential hypertension, benign BMI 50.0-59.9, adult (HCC) Morbid obesity with BMI of 50.0-59.9, adult (HCC) Cellulitis of left lower extremity Chronic pain syndrome Iron deficiency anemia due to chronic blood loss Iron deficiency anemia secondary to blood loss (chronic) documented in this encounter Discontinued Medications Medication Sig Discontinue Reason Start Date End Da te buPROPion SR (ZYBAN) 150 mg 12 hr tablet Take 1 tablet (150 mg total) by mouth 2 (two) times a day Reorder 03/06/2019 07/09/2019 ferrous sulfate 325 mg (65 mg of elemental iron) tabletIndications:Iron Deficiency Anemia Take 1 tablet (325 mg total) by mouth 2 (two) times a day with meals Reorder 04/19/2019 07/09/2019 documented as of this encounter Historical Medications * This list may reflect changes made after this encounter. loratadine 10 mg capsule Take 1 tablet by mouth 05/28/2021 added in this encounter Care Teams Recreation Program Coordinator Relationship Specialty Start Date End Date Jarvis Boston MD PCP - General 10/29/16 03/14/22 documented as of this encounter
--- OUTSIDE RECORDS SUMMARY | 2024-08-13 05:23 | XMS_ITS | Encounter Summary ---
Author Organization [facility] Medical Group Address [address] [place] [address] Care Team Providers Care Window Unit Air Conditioning Mechanic Name Role Phone Jarvis Boston MD Primary Care Provi evelyne Reason for Visit * Reason Comments Hypertension Encounter Details Date Type Department Care Team (Latest Contact Info) Description 09/10/2019 1:30 PM CARTON STAMPER Office Visit [facility] [address] [place] [address] [address] [place] [phone] Cayetano Chawla PA [address] [place] [address] [address] [place] [address] Benign hypertension (Primary Dx); Morbid obesity (CMS/HCC); Chronic stasis dermatitis; BMI 50.0-59.9, adult (CMS/HCC); Morbid obesity with BMI of 50.0-59.9, adult (CMS/HCC); Atypical squamoproliferative skin lesion Social History Tobacco Use Types Packs/Day Years Used Date Smoking Tobacco: Never Smokeless Tobacco: Never Alcohol Use Standard Drinks/Week Comments Not Currently 0 (1 standard drink = 0.6 oz pur e alcohol) no recently PHQ-2 Answer Date Recorded PHQ-2 Score 0 07/09/2019 Comments Unknown Sex and Gender Information Value Date Recorded Sex Assigned at Not on file Legal Sex Female 11:52 PM CARTON STAMPER Gender Identity Female 09/15/2022 2:42 PM CARTON STAMPER Sexual Orientation Straight 09/15/2022 2: 42 PM CARTON STAMPER documented as of this encounter Last Filed Vital Signs Vital Sign Reading Time Taken Comments Blood Pressure 126/62 09/10/2019 1:44 PM CARTON STAMPER Pulse 62 09/10/2019 1:14 PM CARTON STAMPER Temperature - - Respiratory Rate 18 09/10/2019 1:14 PM CARTON STAMPER Oxygen Saturation 98% 09/10/2019 1:14 PM CARTON STAMPER Inhaled Oxygen Concentration - - Weight - - Height - - Body Mass Index - - documented in this encounter Ordered Prescriptions Prescription Sig Dispense Quantity Refills Last Filled Start Date End Date irbesartan (AVAPRO) 300 mg tablet 1 po q day 90 tablet 3 09/10/2019 09/01/2020 documented in this encounter Progress Notes * Cayetano Chawla PA - 09/10/2019 1:30 PM CST Subjective/Objective Patient ID: Lupis Juarez is a 74 y.o. female. Chief Complaint Hypertension HPI Pt here for FU on HTN. No c/o today. No CP, SOB.Chronic edema in legs and venous stasis. But no redness or pain in legs out of the ordinary. Pt is mostly in WC. She and take [employer] bus here , she cannot ride in normal vehicle given her severe lymphedema and deconditioning. She has lesion on R shoulder, has had for a few months. No pain. She notes she is fair skinned. Review of Systems Constitutional: Negative for chills and fever. Respiratory: Negative for cough, chest tightness, shortness of breath and wheezing. Cardiovascular: Positive for leg swelling. Negative for chest pain. Gastrointestinal: Negative for abdominal pain. Skin: Positive for color change (R shoulder skin lesion) and rash (legs, uchanged). Neurological: Negative for dizziness. Psychiatric/Behavioral: Negative for confusion. Vitals: 09/10/19 1314 09/10/19 1344 BP: 126/62 Pulse: 62 Resp: 18 SpO2: 98% Physical Exam Constitutional: General: She is not in acute distress (in WC). Appearance: She is obese. Neck: Vascular: No carotid bruit. Cardiovascular: Rate and Rhythm: Normal rate and regular rhythm. Heart sounds: Normal heart sounds. No murmur. Pulmonary: Breath sounds: Normal breath sounds. No wheezing, rhonchi or rales. Musculoskeletal: Right lower leg: Edema present. Left lower leg: Edema (severe BL LE lymphedema mirlande from knees down. w/ sig venous stasis changes, but no erythema. L >R leg tenderness to touch, chronic. no excess warmth) present. Skin: Comments: Raised round, pencil eraser size. W/ rolled border, thickened keratotic lesion R shoulderapex Neurological: Mental Status: She is oriented to person, place, and time. Gait: Abnormal gait: unable. Lab on 09/03/2019 Component Date Value Ref Range Status ??? Iron 09/03/2019 97 35 - 145 mcg/dl Final ??? TIBC 09/03/2019 250 250 - 400 mcg/dL Final ??? Transferrin saturation 09/03/2019 39 20 - 50 % Final ??? WBC 09/03/2019 9.6 3.8 - 9.9 K/cumm Final ??? Hgb 09/03/2019 15.4 11.9 - 15.5 g/dL Final ??? Hct 09/03/2019 47.2* 35.6 - 45.5 % Final ??? Plt 09/03/2019 247 150 - 400 K/cumm Final ??? MPV 09/03/2019 9.7 9.1 - 12.3 fL Final ??? RBC 09/03/2019 4.79 3.90 - 5.20 M/cumm Final ??? MCV 09/03/2019 98.5* 81.3 - 96.4 fL Final ??? MCH 09/03/2019 32.2 27.1 - 33.3 pg Final ??? MCHC 09/03/2019 32.6 32.3 - 35.7 g/dL Final ??? RDW CV 09/03/2019 13.6 11.1 - 14.9 % Final ??? RDW SD 09/03/2019 50.2* 35.7 - 48.1 fL Final ??? NRBC abs 09/03/2019 0.00 0.00 - 0.01 K/cumm Final ??? Sodium 09/03/2019 141 135 - 145 mmol/L Final ??? Potassium, pl 09/03/2019 4.1 3.3 - 4.9 mmol/L Final ??? Chloride 09/03/2019 102 97 - 110 mmol/L Final ??? CO2 09/03/2019 27 22 - 32 mmol/L Final ??? Anion gap 09/03/2019 12 2 - 15 mmol/L Final ??? BUN 09/03/2019 19 8 - 25 mg/dL Final ??? Creatinine 09/03/2019 0.56* 0.60 - 1.10 mg/dL Final ??? Glucose 09/03/2019 104 70 - 199 mg/dL Final ??? Calcium 09/03/2019 9.9 8.5 - 10.3 mg/dL Final ??? Bilirubin, total 09/03/2019 0.6 0.1 - 1.2 mg/dL Final ??? Protein, pl 09/03/2019 7.4 6.5 - 8.5 g/dL Final ??? Albumin 09/03/2019 3.9 3.5 - 5.0 g/dL Final ??? Alk phos 09/03/2019 135* 40 - 130 Units/L Final ??? ALT 09/03/2019 24 7 - 45 Units/L Final ??? AST 09/03/2019 22 10 - 45 Units/L Final ??? Neutrophil abs 09/03/2019 6.3 1.7 - 6.5 K/cumm Final ??? Imm gran abs 09/03/2019 0.0 0.0 - 0.1 K/cumm Final ??? Lymphocyte abs 09/03/2019 2.5 0.8 - 3.3 K/cumm Final ??? Monocyte abs 09/03/2019 0.6 0.2 - 0.8 K/cumm Final ??? Eosinophil abs 09/03/2019 0.0 0.0 - 0.5 K/cumm Final ??? Basophil abs 09/03/2019 0.1 0.0 - 0.1 K/cumm Final ??? Neutrophil pct 09/03/2019 65.8 % Final ??? Imm gran pct 09/03/2019 0.5 % Final ??? Lymphocyte pct 09/03/2019 26.4 % Final ??? Monocyte pct 09/03/2019 6.7 % Final ??? Eosinophil pct 09/03/2019 0.0 % Final ??? Basophil pct 09/03/2019 0.6 % Final ??? GFR 09/03/2019 93 mL/min/1.73 m2 Final Assessment/Plan Diagnoses and all orders for this visit: Benign hypertension (Primary) Comments: Blood pressure well controlled and continue current therapies Assessment & Plan: Recommend DASH diet, heart-healthy lifestyle, exercise. Discussed the risks of hypertension. Morbid obesity ([facility]) Assessment & Plan: She was counseled on the importance of maintaining a healthy weight and the risks of obesity. Weight loss recommended. Chronic stasis dermatitis Comments: No sign of acute cellulitis. BMI 50.0-59.9, adult ([facility]) Morbid obesity with BMI of 50.0-59.9, adult ([facility]) Atypical squamoproliferative skin lesion Comments: Refer to dermatology versus plastic surgery for atypical squamous proliferative lesion., rule out BCC Other orders - irbesartan (AVAPRO) 300 mg tablet; 1 po q day Will see if patient qualifies for nonemergency transportation services through the O. Side effects, risks, interactions reviewed with patient. Indications for testing discussed. Any further problems to contact us. She was told what to look out for and verbalized understanding. The patient was given the opportunity to have all questions answered today and was in agreement with the plan of care. Cosigned by Jarvis Boston MD at 09/10/2019 5:08 PM CARTON STAMPER ON STAMPER ON STAMPER ON STAMPER documented in this encounter Miscellaneous Notes * Assessment & Plan Note - Cayetano Chawla PA - 09/10/2019 12:59 PM CARTON STAMPER Associated Problem(s): Class 3 severe obesity due to excess calories with serious comorbidity and body mass index (BMI) of 40.0 to 44.9 in adult ([facility]) She was counseled on the importance of maintaining a healthy weight and the risks of obesity. Weight loss recommended. ON STAMPER * Assessment & Plan Note - Cayetano Chawla PA - 09/10/2019 12:59 PM CARTON STAMPER Associated Problem(s): Benign hypertension Recommend DASH diet, heart-healthy lifestyle, exercise. Discussed the risks of hypertension. ON STAMPER documented in this encounter Plan of Treatment Not on file documented as of this encounter Visit Diagnoses Diagnosis Benign hypertension- Primary Essential hypertension, benign Morbid obesity (HCC) Morbid obesity Chronic stasis dermatitis BMI 50.0-59.9, adult (HCC) Morbid obesity with BMI of 50.0-59.9, adult (HCC) Atypical squamoproliferative skin lesion documented in this encounter Discontinued Medications Medication Sig Discontinue Reason Start Date End Da te amoxicillin (AMOXIL) 500 mg tablet/capsuleIndicat ions:Skin/Soft Tissue Infection 2 po bid , to use along with augmentin bid 06/15/2019 09/10/2019 acetaminophen (TYLENOL) 325 mg tablet Take 2 tablets (650 mg total) by mouth every 4 (four) hours as needed for headaches or fever 04/19/2019 09/10/2019 polyethylene glycol (MIRALAX) 17 gram packetIndications:con stipation Take 1 packet (17 g total) by mouth daily 04/19/2019 09/10/2019 bisacodyl EC (DULCOLAX EC) 5 mg EC tablet Take 2 tablets (10 mg total) by mouth daily as needed for constipation (If no results 24 hours after milk of magnesia) 04/19/2019 09/10/2019 irbesartan (AVAPRO) 300 mg tablet 1 po q day Reorder 10/24/2018 09/10/2019 documented as of this encounter Care Teams Window Unit Air Conditioning Mechanic Relationship Specialty Start Date End Date Jarvis Boston MD PCP - General 10/29/16 03/14/22 documented as of this encounter
--- OUTSIDE RECORDS SUMMARY | 2024-08-13 05:23 | XMS_ITS | Encounter Summary ---
Author Organization [facility] Address [address] [place] [address] Care Team Providers Care Soubrette Name Role Phone Jarvis Boston MD Primary Care Provi evelyne Reason for Visit * Reason Comments Hypertension Encounter Details Date Type Department Care Team (Late st Contact Info) Description 01/16/2020 2:00 PM CDT Office Visit [facility] [address] [place] [address] [address] [place] [id number] Jarvis Boston MD [address] [place] [id number] Chronic pain syndrome (Primary Dx); Simple chronic bronchitis (CMS/HCC); Benign hypertension; Morbid obesity (CMS/HCC); Pure hypercholesterolemia; Recurrent major depressive disorder, in partial remission (CMS/HCC); Chronic stasis dermatitis; Vitamin D deficiency; Iron deficiency anemia due to chronic blood [...] on file Legal Sex Female 11:52 PM WARE DRESSER Gender Identity Female 09/15/2022 2:42 PM WARE DRESSER Sexual Orientation Straight 09/15/2022 2: 42 PM WARE DRESSER documented as of this encounter Last Filed Vital Signs Vital Sign Reading Time Taken Comments Blood Pressure 116/74 01/16/2020 2:04 PM CDT Pulse 62 01/16/2020 2:04 PM CDT Temperature - - Respiratory Rate 18 01/16/2020 2:04 PM CDT Oxygen Saturation - - Inhaled Oxygen Concentration - - Weight - - Height - - Body Mass Index - - documented in this encounter Ordered Prescriptions Prescription Sig Dispense Quantity Refills Last Filled Start Date End Date furosemide (LASIX) 20 mg tablet Take 1 tablet (20 mg total) by mouth 2 (two) times a day 180 tablet 3 01/16/2020 01/05/2021 documented in this encounter Progress Notes * Jarvis Boston MD - 01/16/2020 2:00 PM CDT Subjective/Objective Patient ID: Lupis Juarez is a 74 y.o. female. Chief Complaint Hypertension htn igt lipids chronic pain,chroinc pain,abd pain w=from hydrocodone and finds aleve occasionally works Review of Systems Constitutional: Negative. HENT: Negative for congestion, ear pain, facial swelling, hearing loss, mouth sores, nosebleeds, postnasal drip, rhinorrhea, sinus pressure, sneezing, sore throat, tinnitus, trouble swallowing and voice change. Eyes: Negative. Respiratory: Negative. Cardiovascular: Negative. Gastrointestinal: Negative. Endocrine: Negative. Genitourinary: Negative for decreased urine volume, difficulty urinating, dysuria, flank pain, frequency, genital sores, hematuria and urgency. Incontinent all time not able to get out of chair and get there in time Musculoskeletal: Positive for gait problem. Chronic lower leg pain and Uses wheelchair Skin: Legs down and staying down Hematological: Negative. Psychiatric/Behavioral: Negative. Vitals: 01/16/20 1404 BP: 116/74 Pulse: 62 Resp: 18 Physical Exam Constitutional: Appearance: She is well-developed. [...] is soft. Musculoskeletal: Normal range of motion. Comments: In wheelchair and not able to be weighted Skin: General: Skin is warm and dry. Neurological: Mental Status: She is alert and oriented to person, place, and time. Psychiatric: Behavior: Behavior normal. Thought Content: Thought content normal. Judgment: Judgment normal. Assessment/Plan Diagnoses and all orders for this visit: Chronic pain syndrome (Primary) Assessment & Plan: Stop pain pill as bothered stomoch and stomach pain gone occasional aleve and sugested trial occasional tylenol or extended tylenol Neuroleptics discussed but if occaisnoal pills does well then will not considdeer another optno Simple chronic bronchitis (CMS/HCC) Assessment & Plan: Uses advair bid all time and last night for first imt uses rescue inhaler Benign hypertension Assessment & Plan: bp good and no changesHypertension, Medical treament [...] bp. Orders: - Comprehensive metabolic panel; Future Morbid obesity (CMS/HCC) Assessment & Plan: Morbid obesity is a bmi of 40 or more. Targeted weight loss with portion controll(calorie restriction) ,increased basal activity Levels along with adding an exercise program to lead to gradual weightloss,.Any program of change from weight watchers. To [employer] system along with others work. Pure hypercholesterolemia Assessment & Plan: ldl ay 98 and withawcvd risk high risk audie start low dose statin at 1/4 pill over a week and check lab results and if tolerated try to go up to get to close to 60. Diet not option Orders: - Comprehensive metabolic panel; Future - Cholesterol, LDL, direct; Future Recurrent major depressive disorder, in partial remission (CMS/HCC) Assessment & Plan: depresion stable and no chages Chronic stasis dermatitis Assessment & Plan: With swelling gone infectnio risk pretty well gone Vitamin D deficiency Assessment & Plan: gakes and check on return Orders: - Vitamin D 25 hydroxy; Future Iron deficiency anemia due to chronic blood loss Assessment & Plan: Check obn return Orders: - CBC with auto differential; Future - Iron profile w/ IBC; Future - Vitamin B12; Future Other orders - furosemide (LASIX) 20 mg tablet; Take 1 tablet (20 mg total) by mouth 2 (two) times a day Side effects, risks, interactions reviewed with patient. Indications for testing discussed. Any further problems to contact us. She was told what to look out for and verbalized understanding. The patient was given the opportunity to have all questions answered today and was in agreement with the plan of care. documented in this encounter Miscellaneous Notes * Assessment & Plan Note - Jarvis Boston MD - 01/16/2020 2:19 PM CDTAssociated Problem(s): Iron deficiency anemia due to chronic blood loss Check obn return * Assessment & Plan Note - Jarvis Boston MD - 01/16/2020 2:18 PM CDTAssociated Problem(s): Vitamin D deficiency gakes and check on return * Assessment & Plan Note - Jarvis Boston MD - 01/16/2020 2:17 PM CDTAssociated Problem(s): Chronic stasis dermatitis With swelling gone infectnio risk pretty well gone * Assessment & Plan Note - Jarvis Boston MD - 01/16/2020 2:16 PM CDTAssociated Problem(s): Recurrent major depressive disorder, in partial remission (HCC) depresion stable and no chages * Assessment & Plan Note - Jarvis Boston MD - 01/16/2020 2:15 PM CDTAssociated Problem(s): Pure hypercholesterolemia ldl ay 98 and withawcvd risk high risk audie start low dose statin at 1/4 pill over a week and check lab results and if tolerated try to go up to get to close to 60. Diet not option * Assessment & Plan Note - Jarvis Boston MD - 01/16/2020 2:14 PM CDTAssociated Problem(s): Class 3 severe obesity due to excess calories with serious comorbidity and body mass index (BMI) of 40.0 to 44.9 in adult (HCC) Morbid obesity is a bmi of 40 or more. Targeted weight loss with portion controll(calorie restriction) ,increased basal activity Levels along with adding an exercise program to lead to gradual weightloss,.Any program of change from weight watchers. To [employer] system along with others work. * Assessment & Plan Note - Jarvis Boston MD - 01/16/2020 2:12 PM CDTAssociated Problem(s): Benign hypertension bp good and no changesHypertension, Medical treament revolves around weight control, salt management, and meds when necessary. long as weight loss is necessary and you are able to drop weight we can cont to monitor the blood pressure and not add meds. Once the weight is not changing then it becomes nesessary to add meds to be able to reach the goal bp. * Assessment & Plan Note - Jarvis Boston MD - 01/16/2020 2:10 PM CDTAssociated Problem(s): Simple chronic bronchitis (HCC) (Resolved 05/20/2020) Uses advair bid all time and last night for first imt uses rescue inhaler * Assessment & Plan Note - Jarvis Boston MD - 01/16/2020 2:01 PM CDTAssociated Problem(s): Chronic pain syndrome Stop pain pill as bothered stomoch and stomach pain gone occasional aleve and sugested trial occasional tylenol or extended tylenol Neuroleptics discussed but if occaisnoal pills does well then will not considdeer another optno documented in this encounter Plan of Treatment Not on file documented as of this encounter Visit Diagnoses Diagnosis Chronic pain syndrome- Primary Simple chronic bronchitis (HCC) Simple chronic bronchitis Benign hypertension Essential hypertension, benign Morbid obesity (HCC) Morbid obesity Pure hypercholesterolemia Recurrent major depressive disorder, in partial remission (HCC) Chronic stasis dermatitis Vitamin D deficiency Iron deficiency anemia due to chronic blood loss Iron deficiency anemia secondary to blood loss (chronic) documented in this encounter Discontinued Medications Medication Sig Discontinue Reason Start Date End Da te furosemide (LASIX) 20 mg tablet Take 1 tablet (20 mg total) by mouth 2 (two) times a day Reorder 04/19/2019 01/16/2020 documented as of this encounter Orders Lab Orders Without Results Count Last Ordered D ate First Ordered Date CBC WITH AUTO DIFFERENTIAL 1 01/16/2020 CHOLESTEROL, LDL, DIRECT 1 01/16/2020 COMPREHENSIVE METABOLIC PANEL 1 01/16/2020 IRON PROFILE W/ IBC 1 01/16/2020 VITAMIN B12 1 01/16/2020 VITAMIN D 25 HYDROXY 1 01/16/2020 documented in this encounter Care Teams Soubrette Relationship Specialty Start Date End Date Jarvis Boston MD PCP - General 10/29/16 03/14/22 documented as of this encounter
--- OUTSIDE RECORDS SUMMARY | 2024-08-13 05:23 | XMS_ITS | Encounter Summary ---
Author Organization [facility] Address [address] [place] [address] Care Team Providers Care Business Continuity Analyst Name Role Phone Jarvis Boston MD Primary Care Provi [facility] Encounter Details Date Type Department Care Team (Late st Contact Info) Description 11/20/2020 Orders Only [facility] [address] [place] [phone] Jarvis Boston MD [address] [place] [address] Benign hypertension (Primary Dx); Hypertensive heart disease with congestive heart failure, unspecified heart failure type (CMS/HCC); B12 deficiency; Pure hypercholesterolemia; Iron deficiency anemia due to chronic blood loss; Mild persistent asthma without complication; Other disorders of iron metabolism Social History Tobacco Use Types Packs/Day Years Used Date Smoking Tobacco: Never Smokeless Tobacco: Never Alcohol Use Standard Drinks/Week Comments Not Currently 0 (1 standard drink = 0.6 oz pur e alcohol) no recently PHQ-2 Answer Date Recorded PHQ-2 Total Score (If total score is 3 or more points, staff should administer the PHQ-9) 0 11/20/2020 Comments Unknown Sex and Gender Information Value Date Recorded Sex Assigned at Not on file Legal Sex Female 11:52 PM WHEEL INSTALLER Gender Identity Female 09/15/2022 2:42 PM WHEEL INSTALLER Sexual Orientation Straight 09/15/2022 2: 42 PM WHEEL INSTALLER documented as of this encounter Progress Notes * Saumya Herrera - 11/20/2020 3:53 PM CDT Lab for amh due 05/2021 documented in this encounter Miscellaneous Notes * Addendum Note - Yanira Romo - 11/20/2020 3:53 PM CDTAddended by: YANIRA ROMO on: 05/21/2021 08:50 AM Modules accepted: Orders documented in this encounter Plan of Treatment Not on file documented as of this encounter Results * (ABNORMAL) Comprehensive metabolic panel (05/21/2021 8:51 AM CDT) Sodium 139 135 - 145 mmol/L [facility] Potassium, pl 4.2 3.3 - 4.9 mmol/L [facility] Chloride 101 97 - 110 mmol/L [facility] CO2 29 22 - 32 mmol/L [facility] Anion gap 9 2 - 15 mmol/L [facility] BUN 22 8 - 25 mg/dL [facility] Creatinine 0.62 0.60 - 1.10 mg/dL [facility] Glucose 92 70 - 199 mg/dL [facility] Comment: [...] interpretive data was last revised 2017. Calcium 9.7 8.5 - 10.3 mg/dL [facility] Bilirubin, total 0.4 0.1 - 1.2 mg/dL [facility] Protein, pl 7.1 6.5 - 8.5 g/dL [facility] Albumin 3.8 3.5 - 5.0 g/dL [facility] Alk phos 167(H) 40 - 130 Units/L [facility] ALT 12 7 - 45 Units/L [facility] AST 22 10 - 45 Units/L [facility] Blood 05/21/2021 8:51 AM CDT 05/21/2021 3:44 PM CDT Narrative [facility] - 05/21/2021 4:36 PM CDT fasting us Jarvis Boston MD LAB BLOOD ORDERABLE S Final Result [facility] [id number] Department [place] [address] * Pro B-type natriuretic peptide (05/21/2021 8:51 AM CDT) NT-proBNP 260 <=300 pg/mL [facility] Comment: Interpretive Comments: A. Dyspnea in Acute [...] Interpretive Data Last Revised Date: 2018. Blood 05/21/2021 8:51 AM CDT 05/21/2021 3:44 PM CDT Narrative [facility] - 05/21/2021 4:36 PM CDT fasting Jarvis Boston MD LAB BLOOD ORDERABLE S Final Result Performing Organization Address [facility] de Phone Number [facility] [phone] [address] * (ABNORMAL) TSH (05/21/2021 8:51 AM CDT) Thyroid Stimulating Hormone 5.13(H) 0.30 - 4.20 mcIUnit/mL [facility] Blood 05/21/2021 8:51 AM CDT 05/21/2021 3:44 PM CDT Narrative [facility] - 05/21/2021 4:36 PM CDT fasting Jarvis Boston MD LAB BLOOD ORDERABLE S Final Result Performing Organization Address [facility] Co de Phone Number [facility]ATE RACHEL [address] [place] [address] * Vitamin B12 (05/21/2021 8:51 AM CDT) Vitamin B12 1,239 230 - 1,250 pg/mL [facility] Blood 05/21/2021 8:51 AM CDT 05/21/2021 3:44 PM CDT Narrative [facility] - 05/21/2021 4:36 PM CDT fasting Jarvis Boston MD LAB BLOOD ORDERABLE S Final Result Performing Organization Address [facility] de Phone Number [facility]ATE [phone] [place] [address] * Cholesterol, LDL, direct (05/21/2021 8:51 AM CDT) LDL Cholesterol, Direct 65 <=129 mg/dL [facility] Comment: Interpretive Data Ages < or = [...] Interpretive Data was last revised on 2018. Blood 05/21/2021 8:51 AM CDT 05/21/2021 3:44 PM CDT Narrative [facility] - 05/21/2021 4:36 PM CDT fasting us Jarvis Boston MD LAB BLOOD ORDERABLE S Final Result Performing Organization Address [facility] Co de Phone Number [facility] RAMOS [phone] [place] [address] * Hemoglobin A1c (05/21/2021 8:51 AM CDT) Hgb A1C 5.3 4.0 - 5.6 % [facility] Estimated Average Glucose 105 mg/dL [facility] Comment: The ADA recommends reporting an estimated Average Glucose (eAG) with all Hemoglobin A1c results using the equation derived from a study of 507 normal and diabetic adults. ??Minority populations were underrepresented and children were not included. ?? (Diabetes Care 31:5626-9084, 2008). ??The eAG is not equivalent to a fasting glucose. Blood 05/21/2021 8:51 AM CDT 05/21/2021 3:44 PM CDT Narrative [facility] - 05/21/2021 4:17 PM CDT fasting Jarvis Boston MD LAB BLOOD ORDERABLE S Final Result [facility] [id number] Department of Laboratories [place] [phone] documented in this encounter Visit Diagnoses Diagnosis Benign hypertension- Primary Essential hypertension, benign Hypertensive heart disease with congestive heart failure, unspecified heart failure type (HCC) B12 deficiency Pure hypercholesterolemia Iron deficiency anemia due to chronic blood loss Iron deficiency anemia secondary to blood loss (chronic) Mild persistent asthma without complication Other disorders of iron metabolism Other disorders of iron metabolism Benign hypertension Essential hypertension, benign Hypertensive heart disease with congestive heart failure, unspecified heart failure type (HCC) Pure hypercholesterolemia Iron deficiency anemia due to chronic blood loss Iron deficiency anemia secondary to blood loss (chronic) B12 deficiency Mild persistent asthma without complication 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
--- OUTSIDE RECORDS SUMMARY | 2024-08-13 05:23 | XMS_ITS | Encounter Summary ---
Author Organization [facility] Address [address] [place] [address] Care Team Providers Care Superintendent Power Name Role Phone Jarvis Boston MD Primary Care Provi [facility] Encounter Details Date Type Department Care Team (Late st Contact Info) Description 04/17/2019 Orders Only [facility] [address] [place] [phone] Jarvis Boston MD [address] [place] [address] Lymphedema of both lower extremities (Primary Dx) Social History Tobacco Use Types [...] on file Legal Sex Female 11:52 PM HOME CARE RN Gender Identity Female 09/15/2022 2:42 PM HOME CARE RN Sexual Orientation Straight 09/15/2022 2: 42 PM HOME CARE RN documented as of this encounter Plan of Treatment Not on file documented as of this encounter Visit Diagnoses Diagnosis Lymphedema of both lower extremities- Primary documented in this encounter Orders Nursing Count Last Ordered Date First Orde red Date MISCELLENEOUS ORDER 1 04/17/2019 documented in this encounter Care Teams Superintendent Power Relationship Specialty Start Date End Date Jarvis Boston MD PCP - General 10/29/16 03/14/22 documented as of this encounter
--- OUTSIDE RECORDS SUMMARY | 2024-08-13 05:23 | XMS_ITS | Encounter Summary ---
Author Organization [facility] Medical Group Address [address] [place] [address] Care Team Providers Care Motor Express Clerk Name Role Phone Jarvis Boston MD Primary Care Provi [facility] Encounter Details Date Type Department Care Team (Late st Contact Info) Description 05/28/2021 Orders Only [facility] [address] [facility] [address] [place] [id number] Jarvis Boston MD [address] [place] [address] B12 deficiency (Primary Dx); Benign hypertension; Chronic pain syndrome; Vitamin D deficiency; Iron deficiency anemia due to chronic blood loss; Acquired hypothyroidism; IGT (impaired glucose tolerance) Social History Tobacco Use Types Packs/Day Years Used Date Smoking Tobacco: Never Smokeless Tobacco: Never Alcohol Use Standard Drinks/Week Comments Not Currently 0 (1 standard drink = 0.6 oz pur e alcohol) no recently PHQ-2 Answer Date Recorded PHQ-2 Total Score (If total score is 3 or more points, staff should administer the PHQ-9) 0 05/28/2021 Comments Unknown Sex and Gender Information Value Date Recorded Sex Assigned at Not on file Legal Sex Female 11:52 PM ENGINEER PROCESS Gender Identity Female 09/15/2022 2:42 PM ENGINEER PROCESS Sexual Orientation Straight 09/15/2022 2: 42 PM ENGINEER PROCESS documented as of this encounter Plan of Treatment Not on file documented as of this encounter Results * Lipid panel (11/20/2021 8:44 AM CDT) [facility] Signature Cholesterol 160 30 - 199 mg/dL TATE RAMOS Comment: [...] Data was last revised on 2018. Triglycerides 54 <=149 mg/dL TATE RAMOS Comment: Interpretive Data [...] Data was last revised on 2018. HDL 81 >=40 mg/dL TATE RAMOS Comment: Interpretive Data [...] was last revised on 2018. LDL, calculated 68 <=129 mg/dL TATE RAMOS Comment: Interpretive Data [...] was last revised on 2018. Non-HDL Cholesterol 79 mg/dL TATE RAMOS Comment: Interpretive Data Ages [...] last revised on 2018. Chol/HDL ratio 2 [facility] Blood 11/20/2021 8:44 AM CDT 11/20/2021 2:29 PM CDT Jarvis Boston MD LAB BLOOD ORDERABLE S Final Result Performing Organization Address [facility] Phone Number TATE [phone] [employer] [place] [address] * Hemoglobin A1c (11/20/2021 8:44 AM CDT) Hgb A1C 5.1 4.0 - 5.6 % [facility] Estimated Average Glucose 100 mg/dL [facility] Comment: The ADA recommends reporting an estimated Average Glucose (eAG) with all Hemoglobin A1c results using the equation derived from a study of 507 normal and diabetic adults. ??Minority populations were underrepresented and children were not included. ?? (Diabetes Care 31:1925-6442, 2008). ??The eAG is not equivalent to a fasting glucose. Blood 11/20/2021 8:44 AM CDT 11/20/2021 2:29 PM CDT Jarvis Boston MD LAB BLOOD ORDERABLE S Final Result Performing Organization Address [facility] Phone Number [facility] [address] [employer] [place] [address] * (ABNORMAL) Comprehensive metabolic panel (11/20/2021 8:44 AM CDT) Sodium 138 135 - 145 mmol/L C[facility] Potassium, pl 4.0 3.3 - 4.9 mmol/L [facility] Chloride 100 97 - 110 mmol/L [facility] CH CO2 25 22 - 32 mmol/L [facility] Anion gap 13 2 - 15 mmol/L [facility] BUN 16 8 - 25 mg/dL [facility] Creatinine 0.68 0.60 - 1.10 mg/dL [facility] Glucose 101 70 - 199 mg/dL [facility] Comment: Interpretive Data Fasting glucose >/= 126 [...] - 5.0 g/dL [facility] CH Alk phos 170(H) 40 - 130 Units/L [facility] CH ALT 15 7 - 45 Units/L [facility] CH AST 24 10 - 45 Units/L [facility] Blood 11/20/2021 8:44 AM CDT 11/20/2021 2:29 PM CDT Jarvis Boston MD LAB BLOOD ORDERABLE S Final Result Performing Organization Address [facility] Co de Phone Number TATE RAMOS [phone] [place] [address] * (ABNORMAL) Iron profile w/ IBC (11/20/2021 8:44 AM CDT) Iron 51 35 - 145 mcg/dl [facility] CH TIBC 242(L) 250 - 400 mcg/dL [facility] CH Transferrin saturation 21 20 - 50 % [facility] CH Blood 11/20/2021 8:44 AM CDT 11/20/2021 2:29 PM CDT us Jarvis Boston MD LAB BLOOD ORDERABLE S Final Result TATE RCAHEL [address] [place] [address] * (ABNORMAL) CBC with auto differential (11/20/2021 8:44 AM CDT) [facility] WBC 9.5 3.8 - 9.9 K/cumm [facility] Hgb 14.3 11.9 - 15.5 g/dL [facility] Hct 45.0 35.6 - 45.5 % [facility] Plt 277 150 - 400 K/cumm [facility] MPV 9.8 9.1 - 12.3 fL [facility] RBC 4.60 3.90 - 5.20 M/cumm [facility] CH MCV 97.8(H) 81.3 - 96.4 fL [facility] MCH 31.1 27.1 - 33.3 pg [facility] MCHC 31.8(L) 32.3 - 35.7 g/dL [facility] RDW CV 14.0 11.1 - 14.9 % [facility] RDW SD 50.9(H) 35.7 - 48.1 fL [facility] NRBC abs 0.00 0.00 - 0.01 K/cumm [facility] CH Blood 11/20/2021 8:44 AM CDT 11/20/2021 2:29 PM CDT Jarvis Boston MD LAB BLOOD ORDERABLE S Final Result Performing Organization Address [facility] Co de Phone Number TATE RACHEL [phone] [facility] [employer] [place] [address] * Vitamin D 25 hydroxy (11/20/2021 8:44 AM CDT) [facility] Vitamin D 25-OH 48 30 - 80 ng/mL [facility] Blood 11/20/2021 8:44 AM CDT 11/20/2021 2:29 PM CDT Jarvis Boston MD LAB BLOOD ORDERABLE S Final Result Performing Organization Address City/[facility]/ZIP Co de Phone Number [facility] [address] [address] Department [place] [employer] [place] [address] * (ABNORMAL) Vitamin B12 (11/20/2021 8:44 AM CDT) Vitamin B12 1,280(H) 230 - 1,250 pg/mL [facility] Blood 11/20/2021 8:44 AM CDT 11/20/2021 2:29 PM CDT us Jarvis Boston MD LAB BLOOD ORDERABLE S Final Result TATE RAMOS [address] [place] [address] * TSH (11/20/2021 8:44 AM CDT) Thyroid Stimulating Hormone 4.05 0.30 - 4.20 mcIUnit/mL [facility] Blood 11/20/2021 8:44 AM CDT 11/20/2021 2:29 PM CDT Jarvis Boston MD LAB BLOOD ORDERABLE S Final Result Performing Organization Address [facility] Co de Phone Number TATE RAMOS [phone] [place] [address] documented in this encounter Visit Diagnoses Diagnosis B12 deficiency- Primary Benign hypertension Essential hypertension, benign Chronic pain syndrome Vitamin D deficiency Iron deficiency anemia due to chronic blood loss Iron deficiency anemia secondary to blood loss (chronic) Acquired hypothyroidism Unspecified hypothyroidism IGT (impaired glucose tolerance) Impaired glucose tolerance test documented in this encounter Care Teams Motor Express Clerk Relationship Specialty Start Date End Date Jarvis Boston MD PCP - General 10/29/16 03/14/22 documented as of this encounter
--- OUTSIDE RECORDS SUMMARY | 2024-08-13 05:23 | XMS_ITS | Encounter Summary ---
Author Organization [facility] Address [address] [place] [address] Care Team Providers Care Telesales Representative Name Role Phone Tristan Rivers MD Primary Care Provider [phone] Reason for Visit * Reason Comments Establish Care Pt is here to est ca re. Encounter Details Date Type Department Care Team (Late st Contact Info) Description 03/15/2022 1:00 PM CDT Office Visit [facility] Primary Care at [address] [address] Tristan Rivers MD [address] [place] [address] Establishing care with new doctor, encounter for (Primary Dx); Benign hypertension; Hypertensive heart disease with chronic combined systolic and diastolic congestive heart failure (HCC); Pure hypercholesterolemia; Chronic pain syndrome; Mild persistent asthma without complication Social History [...] on file Legal Sex Female 11:52 PM SAFETY DEPOSIT CLERK Gender Identity Female 09/15/2022 2:42 PM SAFETY DEPOSIT CLERK Sexual Orientation Straight 09/15/2022 2: 42 PM SAFETY DEPOSIT CLERK documented as of this encounter Last Filed Vital Signs Vital Sign Reading Time Taken Comments Blood Pressure 134/70 03/15/2022 12:58 PM CDT Pulse 67 03/15/2022 12:58 PM CDT Temperature 36.8 ??C (98.3 ??F) 03/15/2022 12:58 PM C DT Respiratory Rate - - Oxygen Saturation 95% 03/15/2022 12:58 PM CDT Inhaled Oxygen Concentration - - Weight 127 kg (280 lb) 03/15/2022 12:58 PM CDT Height 157.5 cm (5' 2 ) 03/15/2022 12:58 PM CDT Body Mass Index 51.21 03/15/2022 12:58 PM CDT documented in this encounter Progress Notes * Tristan Rivers MD - 03/15/2022 1:00 PM CDT Subjective/Objective Patient ID: Lupis Juarez is a 76 y.o. female. Chief Complaint Chief Complaint Patient presents with ??? Establish Care Pt is here to est care. HPI Patient is a 76 year old female, presenting to establish care. Dyslipidemia: HTN heart disease with CHF -last ECHO 2018; LVEF 60-65% with concentric hypertrophy -mitral valve regurgitation -elevated right atrial pressure HTN; -bp at target, no chest daniela or presure, no headaches Stasis Dermatitis: Obesity: -has been cutting back on portins -has no signficant activity limited mobility SIENA: MDD: -has been doing well -bupropino BID, and fluoxetine daily Chornic Pain: -left LE, posterior thigh; ilio-tibial syndrome -has decreased hydrocodone usage from 4 tabs daily to 0.5 tabs weekly Asthma: -has been doing well; changes with weather -albuterol; uses about once per week -uses Advair inahler Poor balace; patient has swelling in bilateral LEs, back pain; uses wheelchair for ambulation -uses wheelchair for 3 years -had history of lymphedema with cellulitis; [place]; exposed to multiple chemicals as child; un known if any senior care healtheffects. Past Medical History: Diagnosis Date ??? Asthma ??? COPD (chronic obstructive pulmonary disease) (CMS/HCC) (HCC) ??? History of transfusion ??? HX OTHER MEDICAL 01-PRODUCT SAFETY HEAD ??? HX 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-ORTHOPEDIST ??? HX OTHER MEDICAL IGT ??? Hypertension ??? Moderate episode of recurrent major depressive disorder (HCC) 12/05/2017 Past Surgical History: Procedure Laterality Date ??? RHINOPLASTY RHINOPLASTY Patient Active Problem List Diagnosis Date Noted ??? Acquired hypothyroidism 05/28/2021 ??? B12 deficiency 05/20/2020 ??? Hypertensive heart disease with congestive heart failure (HCC) 05/20/2020 ??? At high risk for falls per Rory fall risk assessment scale 05/20/2020 ??? Pure hypercholesterolemia 01/16/2020 ??? Iron deficiency anemia due to chronic blood loss ??? Class 3 severe obesity due to excess calories with serious comorbidity and body mass index (BMI) of 50.0 to 59.9 in adult ([facility]) 12/07/2018 ??? Recurrent major depressive disorder, in partial remission ([facility]) 10/24/2018 ??? Mild persistent asthma without complication 03/14/2018 ??? Chronic stasis dermatitis 03/15/2017 ??? IGT (impaired glucose tolerance) 03/15/2017 ??? Chronic pain syndrome 03/15/2017 ??? PE (physical exam), annual 03/15/2017 ??? Vitamin D deficiency 03/15/2017 ??? Benign hypertension 08/17/2016 Current Outpatient Medications Medication Sig Dispense Refill ??? albuterol HFA (ProAir HFA) 90 mcg/actuation inhaler Inhale 2 puffs every 4 (four) hours as needed for shortness of breath As needed for wheezing 3 each 3 ??? atorvastatin (LIPITOR) 10 mg tablet 1/2 a day 45 tablet 3 ??? buPROPion SR (ZYBAN) 150 mg 12 hr tablet Take 1 tablet (150 mg total) by mouth 2 (two) times a day 180 tablet 3 ??? cloNIDine (CATAPRES) 0.1 mg tablet TAKE 1 TABLET(0.1 MG) BY MOUTH TWICE DAILY 180 tablet 3 ??? cyanocobalamin (Vitamin B-12) 500 mcg tablet Take 1/2 tab mond thru frid and skip tue and 45 tablet 3 ??? FLUoxetine (PROzac) 40 mg capsule Take 1 capsule (40 mg total) by mouth daily 90 capsule 3 ??? fluticasone propion-salmeteroL (Advair Diskus) 250-50 mcg/dose diskus inhaler Inhale 1 puff 2 (two) times a day Rinse mouth with water after use to reduce aftertaste and incidence of candidiasis.Do not swallow. 3 each 3 ??? fluticasone propionate (FLONASE) 50 mcg/actuation nasal spray Administer 2 sprays into each nostril daily 48 g 3 ??? furosemide (LASIX) 20 mg tablet Take 1 tablet (20 mg total) by mouth 2 (two) times a day 180 tablet 3 ??? HYDROcodone-acetaminophen ([place]) 5-325 mg per tablet Take 1 tablet by mouth every 6 hours as needed for pain 40 tablet 0 ??? irbesartan (AVAPRO) 300 mg tablet TAKE 1 TABLET BY MOUTH EVERY DAY 90 tablet 3 ??? loratadine 10 mg capsule Take 1 tablet by mouth daily 90 capsule 3 No current facility-administered medications for this visit. Allergies as of 03/15/2022 - Reviewed 03/15/2022 Allergen Reaction Noted ??? Quinapril Other (See comments) Social History Tobacco Use ??? Smoking status: Never Smoker ??? Smokeless tobacco: Never Used Substance and Sexual Activity ??? Drug use: No ??? Sexual activity: Defer Alcohol Use: Not on file Family History Problem Relation Age of Onset ??? Dementia Mother Dementia; ??? Hypertension Mother Hypertension; ??? Depression Mother Depression; ??? Dementia Father Dementia; ??? Hypertension Father Hypertension; ??? Hypertension Brother Hypertension; Review of Systems Constitutional: Negative for activity change, chills and fever. HENT: Positive for hearing loss, postnasal drip and rhinorrhea. Negative for congestion and sore throat. Eyes: Negative for visual disturbance. Respiratory: Negative for cough and shortness of breath. Cardiovascular: Negative for chest pain. Gastrointestinal: Negative for abdominal pain, constipation, diarrhea, nausea and vomiting. Genitourinary: Negative for difficulty urinating and dyspareunia. Musculoskeletal: Positive for arthralgias and myalgias. Allergic/Immunologic: Positive for environmental allergies. Neurological: Positive for tremors. Negative for dizziness, weakness, numbness and headaches. Psychiatric/Behavioral: Negative for dysphoric mood and sleep disturbance. The patient is not nervous/anxious. BP 134/70 (BP Location: Right arm, Patient Position: Sitting) Pulse 67 Temp 36.8 ??C (98.3 ??F)(Oral) Ht 157.5 cm (5' 2 ) Wt 127 kg (280 lb) SpO2 95% BMI 51.21 kg/m?? Physical Exam Vitals reviewed. Constitutional: Appearance: Normal appearance. HENT: Head: Normocephalic and atraumatic. Cardiovascular: Rate and Rhythm: Normal rate and regular rhythm. Pulses: Normal pulses. Heart sounds: Normal heart sounds. Comments: Thickening of skin on anterior of shins Pulmonary: Effort: Pulmonary effort is normal. Breath [...] oriented to person, place, and time. Motor: Tremor present. No abnormal muscle tone. Psychiatric: Mood and Affect: Mood normal. Behavior: Behavior normal. Thought Content: Thought content normal. Diagnoses and all orders for this visit: Establishing care with new doctor, encounter for (Primary) - Lipid panel; Future - Comprehensive metabolic panel; Future - CBC with auto differential; Future Benign hypertension - Lipid panel; Future - Comprehensive metabolic panel; Future - CBC with auto differential; Future Hypertensive heart disease with chronic combined systolic and diastolic congestive heart failure (HCC) Assessment & Plan: Stable, well controlled; blood pressure at target today; patient reports the chest pain or pressure, no headaches Patient has chronic stasis dermatitis Continue clonidine 0.1 mg b.i.d., irbesartan 300 mg daily, furosemide 20 mg b.i.d. Pure hypercholesterolemia Assessment & Plan: Stable, well controlled; lipids all at target Continue atorvastatin 10 mg daily Chronic pain syndrome Assessment & Plan: Stable, pain is primary in left lower extremity; posterior thighs; patient has continued to taper from hydrocodone usage Mild persistent asthma without complication Assessment & Plan: Stable, well controlled; patient reports limited use of albuterol Continue Advair 1 puff b.i.d. Return in about 6 months (around 09/15/2022). Tristan Rivers MD documented in this encounter Miscellaneous Notes * Assessment & Plan Note - Tristan Rivers MD - 03/16/2022 4:19 PM CDT Associated Problem(s): Mild persistent asthma without complication Stable, well controlled; patient reports limited use of albuterol Continue Advair 1 puff b.i.d. * Assessment & Plan Note - Tristan Rivers MD - 03/16/2022 4:18 PM CDT Associated Problem(s): Chronic pain syndrome Stable, pain is primary in left lower extremity; posterior thighs; patient has continued to taper from hydrocodone usage * Assessment & Plan Note - Tristan Rivers MD - 03/16/2022 4:18 PM CDT Associated Problem(s): Class 3 severe obesity due to excess calories with serious comorbidity and body mass index (BMI) of 40.0 to 44.9 in adult (HCC) Stable, no significant weight loss; much of weight may be attributed to lymphedema and venous stasis Patient has been working on portion control; patient is not able to exercise due to limited mobility Will continue to monitor to help patient with weight loss strategies * Assessment & Plan Note - Tristan Rivers MD - 03/16/2022 4:17 PM CDT Associated Problem(s): Pure hypercholesterolemia Stable, well controlled; lipids all at target Continue atorvastatin 10 mg daily * Assessment & Plan Note - Tristan Rivers MD - 03/16/2022 4:16 PM CDT Associated Problem(s): Hypertensive heart disease with congestive heart failure (HCC) (Deleted) Stable, well controlled; blood pressure at target today; patient reports the chest pain or pressure, no headaches Patient has chronic stasis dermatitis Continue clonidine 0.1 mg b.i.d., irbesartan 300 mg daily, furosemide 20 mg b.i.d. * Assessment & Plan Note - Tristan Rivers MD - 03/15/2022 1:00 PM CDT Associated Problem(s): Takotsubo cardiomyopathy >>ASSESSMENT AND PLAN FOR HYPERTENSIVE HEART DISEASE WITH CONGESTIVE HEART FAILURE (HCC) WRITTEN ON 03/16/2022 4:17 PM BY TRISTAN RIVERS MD Stable, well controlled; blood pressure at target today; patient reports the chest pain or pressure, no headaches Patient has chronic stasis dermatitis Continue clonidine 0.1 mg b.i.d., irbesartan 300 mg daily, furosemide 20 mg b.i.d. * Addendum Note - Tristan Rivers MD - 03/15/2022 1:00 PM CDTAddended by: TRISTAN RIVERS on: 03/26/2022 09:46 AM Modules accepted: Orders documented in this encounter Plan of Treatment Not on file documented as of this encounter Results * (ABNORMAL) Comprehensive metabolic panel (09/15/2022 8:59 AM SAFETY DEPOSIT CLERK) Sodium 137 135 - 145 mmol/L C[facility]ER [...] Units/L [facility] Blood 09/15/2022 8:59 AM SAFETY DEPOSIT CLERK 09/15/2022 2:43 PM SAFETY DEPOSIT CLERK us Tristan Rivers MD LAB BLOOD ORDERABLES Lisa mazariegos Result CERNER [address] Department [place] [address] * (ABNORMAL) CBC with auto differential (09/15/2022 8:59 AM SAFETY DEPOSIT CLERK) Pathologist [facility] WBC 9.3 3.8 - 9.9 K/cumm CERNER [...] K/cumm [facility] CH Blood 09/15/2022 8:59 AM SAFETY DEPOSIT CLERK 09/15/2022 2:43 PM SAFETY DEPOSIT CLERK Tristan Rivers MD LAB BLOOD ORDERABLES Lisa l Result [facility] [address] Department [place] [address] * (ABNORMAL) CBC with auto differential (03/15/2022 [...] PM CDT 03/15/2022 8:03 PM CDT Tristan Rivers MD LAB BLOOD ORDERABLES Lisa l Result TATE RAMOS [address] Department [place] [address] * (ABNORMAL) Comprehensive metabolic panel (03/15/2022 1:52 PM CDT) Sodium 139 135 - 145 mmol/L [facility] CH Potassium, pl 4.5 3.3 - 4.9 mmol/L [facility] Chloride 103 97 - 110 mmol/L [facility] CH CO2 25 22 - 32 mmol/L [facility] CH Anion gap 11 2 - 15 mmol/L [facility] CH BUN 20 8 - 25 mg/dL [facility] CH Creatinine 0.75 0.60 - 1.10 mg/dL [facility] CH Glucose 97 70 - 199 mg/dL [facility] CH Comment: [...] CDT 03/15/2022 8:03 PM CDT us Tristan Rivers MD LAB BLOOD ORDERABLES Lisa l Result TATE RAMOS [address] Department [place] [address] * Lipid panel (03/15/2022 1:52 PM CDT) [facility] Cholesterol 170 30 - 199 mg/dL TATE [...] last revised on 2018. Chol/HDL ratio 2 [facility] Blood 03/15/2022 1:52 PM CDT 03/15/2022 8:03 PM CDT us Tristan Rivers MD LAB BLOOD ORDERABLES Lisa mazariegos Result TATE [address] Department [place] [address] documented in this encounter Visit Diagnoses Diagnosis Establishing care with new doctor, encounter for- Primary Benign hypertension Essential hypertension, benign Hypertensive heart disease with chronic combined systolic and diastolic congestive heart failure (HCC) Pure hypercholesterolemia Chronic pain syndrome Mild persistent asthma without complication documented in this encounter Discontinued Medications Medication Sig Discontinue Reason Start Date End Da te Bifidobacterium infantis (ALIGN) 4 mg capsule Take 1 capsule (4 mg total) by mouth daily 04/19/2019 03/15/2022 documented as of this encounter Care Teams Telesales Representative Relationship Specialty Start Date End Date [place]istan [place] [address] PCP - General Family Medicine 03/15/22 documented as of this encounter
--- OUTSIDE RECORDS SUMMARY | 2024-08-13 05:23 | XMS_ITS | Encounter Summary ---
Author Organization [facility] Healthcare Address [address] [place] [address] Care Team Providers Care Automobile Wrecker Name Role Phone Jarvis Boston MD Primary Care [facility] Encounter Details Date Type Department Care Team (Latest Contact Info) Description 04/19/2019 10:25 AM CDT - 04/19/2019 11:59 PM CDT Hospital Encounter [facility] Jarvis Boston MD [address] [place] [address] Discharge Disposition: Discharge to home or self [...] on file Legal Sex Female 11:52 PM [employer] SWITCH ASSEMBLER Gender Identity Female 09/15/2022 2:42 PM [employer] SWITCH ASSEMBLER Sexual Orientation Straight 09/15/2022 2: 42 PM P[employer] SWITCH ASSEMBLER documented as of this encounter Medications at Time of Discharge acetaminophen (TYLENOL) 325 mg tablet Take 2 tablets (650 mg total) by mouth every 4 (four) hours as needed for headaches or fever 30 tablet 11 04/19/2019 0 albuterol HFA (PROAIR HFA) 90 mcg/actuation inhaler Inhale 2 puffs every 4 (four) hours as needed for shortness of breath As needed for wheezing 1 Inhaler 11 03/06/2019 1 amoxicillin (AMOXIL) 500 mg tablet/capsuleIn dications:Skin/S oft Tissue Infection 2 po bid , to use along with augmentin bid 40 tablet/capsul e 04/19/2019 9 amoxicillin-clav ulanate (AUGMENTIN) 875-125 mg per tabletIndication s:Skin/Soft Tissue Infection Take 1 tablet by mouth 2 (two) times a day Use with 2 amoxil 500mg pills 20 tablet 04/19/2019 9 Bifidobacterium infantis (ALIGN) 4 mg capsule Take 1 capsule (4 mg total) by mouth daily 30 capsule 11 04/19/2019 2 bisacodyl EC (DULCOLAX EC) 5 mg EC tablet Take 2 tablets (10 mg total) by mouth daily as needed for constipation (If no results 24 hours after milk of magnesia) 30 tablet 11 04/19/2019 0 buPROPion SR (ZYBAN) 150 mg 12 hr tablet Take 1 tablet (150 mg total) by mouth 2 (two) times a day 180 tablet 3 03/06/2019 9 cloNIDine (CATAPRES) 0.1 mg tablet Take 1 tablet (0.1 mg total) by mouth 2 (two) times a day 180 tablet 3 03/06/2019 0 ferrous sulfate 325 mg (65 mg of elemental iron) tabletIndication s:Iron Deficiency Anemia Take 1 tablet (325 mg total) by mouth 2 (two) times a day with meals 60 tablet 11 04/19/2019 9 FLUoxetine (PROzac) 40 mg capsule Take 1 capsule (40 mg total) by mouth daily 90 capsule 3 03/06/2019 0 fluticasone propion-salmeter ol (ADVAIR DISKUS) 250-50 mcg/dose diskus inhaler Inhale 1 puff 2 (two) times a day Rinse mouth with water after use to reduce aftertaste and incidence of candidiasis. Do not swallow. 3 each 3 03/06/2019 1 fluticasone propionate (FLONASE) 50 mcg/actuation nasal spray Administer 2 sprays into each nostril daily 16 mL 11 03/06/2019 0 furosemide (LASIX) 20 mg tablet Take 1 tablet (20 mg total) by mouth 2 (two) times a day 60 tablet 11 04/19/2019 0 HYDROcodone-acet aminophen (NORCO) 5-325 mg per tabletIndication s:Pain Take 1 tablet by mouth every 6 hours as needed for pain 120 tablet 04/11/2019 0 irbesartan (AVAPRO) 300 mg tablet 1 po q day 90 tablet 3 10/24/2018 0 polyethylene glycol (MIRALAX) 17 gram packetIndication s:constipation Take 1 packet (17 g total) by mouth daily 30 packet 04/19/2019 0 documented as of this encounter Discharge Disposition Disposition Code Departure Means Destination Discharge to home or self care documented in this encounter Plan of Treatment Not on file documented as of this encounter Visit Diagnoses Not on filedocumented in this encounter Care Teams Automobile Wrecker Relationship Specialty Start Date End Date Jarvis Boston MD PCP - General 10/29/16 03/14/22 documented as of this encounter
--- OUTSIDE RECORDS SUMMARY | 2024-08-13 05:23 | XMS_ITS | Encounter Summary ---
Author Organization [facility] Address [address] [place] [address] Care Team Providers Care Director Of Rooms Name Role Phone Jarvis Boston MD Primary Care Provi [facility] Jay Wiley [facility] Unavailable Unavailabl e Encounter Details Date Type Department Care Team (Late st Contact Info) Description 09/10/2019 Orders Only [facility] [address] [place] [id number] Cayetano Chawla PA [address] [place] [address] [address] [place] [address] Skin lesion (Primary Dx); Chronic stasis dermatitis Social History Tobacco Use Types Packs/Day Years Used Date Smoking Tobacco: Never Smokeless Tobacco: Never Alcohol Use Standard Drinks/Week Comments Not Currently 0 (1 standard drink = 0.6 oz pur e alcohol) no recently PHQ-2 Answer Date Recorded PHQ-2 Score 0 07/09/2019 Comments Unknown Sex and Gender Information Value Date Recorded Sex Assigned at Not on file Legal Sex Female 11:52 PM SLAB INSTALLER Gender Identity Female 09/15/2022 2:42 PM SLAB INSTALLER Sexual Orientation Straight 09/15/2022 2: 42 PM SLAB INSTALLER documented as of this encounter Plan of Treatment Not on file documented as of this encounter Visit Diagnoses Diagnosis Skin lesion- Primary Unspecified disorder of skin and subcutaneous tissue Chronic stasis dermatitis documented in this encounter Care Teams Director Of Rooms Relationship Specialty Start Date End Date Jarvis Boston MD PCP - General 10/29/16 03/14/22 Jay Wiley LCSW Financial Rep 09/12/19 09/13/19 documented as of this encounter
--- OUTSIDE RECORDS SUMMARY | 2024-08-13 05:23 | XMS_ITS | Encounter Summary ---
Author Organization [facility] Healthcare Address [address] [place] [address] Care Team Providers Care Television Specialist Name Role Phone Breanna Boston MD Primary Care Provi evelyne Reason for Visit * Reason Comments Fall Encounter Details Date Type Department Care Team (Latest Contact Info) Description 04/14/2019 6:51 PM CDT - 04/19/2019 11:00 AM CDT Hospital Encounter [facility] [address] [place] [address] Colt Ortiz MD 1 [facility] [place] [address] Kathia Florez MD [address] [place], [place] [id number] Breanna Boston MD [address] [place], [place] [id number] Tony Griffiths MD [address] [place] [address] Cellulitis of left lower extremity (Primary Dx); Failure to thrive in adult; Elevated brain natriuretic peptide (BNP) level Discharge Disposition: Discharge to SNF Social History Tobacco Use Types Packs/Day Years Used Date Smoking Tobacco: Never Smokeless Tobacco: Never Alcohol Use Standard Drinks/Week Comments Not Currently 0 (1 standard drink = 0.6 oz pur e alcohol) no recently PHQ-2 Answer Date Recorded PHQ-2 Score 4 04/14/2019 Comments Unknown Sex and Gender Information Value Date Recorded Sex Assigned at Not on file Legal Sex 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 Gender Identity Female 09/15/2022 2:42 PM 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 Sexual Orientation Straight 09/15/2022 2: 42 PM 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 documented as of this encounter Last Filed Vital Signs Vital Sign Reading Time Taken Comments Blood Pressure 151/46 04/19/2019 8:16 AM CDT Pulse 78 04/19/2019 8:16 AM CDT Temperature 36.9 ??C (98.4 ??F) 04/19/2019 8:16 AM CD T Respiratory Rate 26 04/19/2019 8:16 AM CDT Oxygen Saturation 93% 04/19/2019 8:16 AM CDT Inhaled Oxygen Concentration - - Weight 124.7 kg (275 lb) 04/19/2019 5:28 AM CDT Height 157.5 cm (5' 2 ) 04/15/2019 3:00 AM CDT Body Mass Index 50.3 04/15/2019 3:00 AM CDT documented in this encounter Discharge Diagnoses Diagnosis Cellulitis of left lower limb - CELLULITIS OF LEFT LOWER LIMB Unspecified diastolic (congestive) heart failure (HCC) - UNSPECIFIED DIASTOLIC (CONGESTIVE) HEART FAILURE Body mass index (BMI) 50.0-59.9, adult - BODY MASS INDEX (BMI) 50-59.9, ADULT Iron deficiency anemia, unspecified - IRON DEFICIENCY ANEMIA, UNSPECIFIED Morbid (severe) obesity due to excess calories (HCC) - MORBID (SEVERE) OBESITY DUE TO EXCESS CALORIES Lymphedema, not elsewhere classified - LYMPHEDEMA, NOT ELSEWHERE CLASSIFIED Do not resuscitate - DO NOT RESUSCITATE Chronic obstructive pulmonary disease, unspecified (HCC) - CHRONIC OBSTRUCTIVE PULMONARY DISEASE, UNSPECIFIED Constipation, unspecified - CONSTIPATION, UNSPECIFIED Anxiety disorder, unspecified - ANXIETY DISORDER, UNSPECIFIED Sleep apnea, unspecified - SLEEP APNEA, UNSPECIFIED Hypertensive heart disease with heart failure ([facility]) (HCC) - HYPERTENSIVE HEART DISEASE WITH HEART FAILURE Unspecified hypertensive heart disease with heart failure Major depressive disorder, single episode, unspecified - MAJOR DEPRESSIVE DISORDER, SINGLE EPISODE, UNSPECIFIED Other specified events, undetermined intent, initial encounter - OTHER SPECIFIED EVENTS, UNDETERMINED INTENT, INITIAL ENCOUNTER Bedroom of single-family (private) house as the place of occurrence of the external cause - BEDROOM OF SINGLE-FAMILY (PRIVATE) HOUSE THE PLACE OF OCCURRENCE OF THE EXTERNAL CAUSE Unspecified fall, initial encounter - UNSPECIFIED FALL, INITIAL ENCOUNTER Personal history of colonic polyps - PERSONAL HISTORY OF COLONIC POLYPS 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) USE OF INHALED STEROIDS Other [facility] (current) drug therapy - OTHER NURSING HOME (CURRENT) DRUG THERAPY Allergy status to other drugs, medicaments and biological substances status - ALLERGY STATUS TO OTHER DRUGS, MEDICAMENTS AND BIOLOGICAL SUBSTANCES STATUS documented in this encounter Discharge Summaries * Breanna Boston MD - 04/19/2019 7:37 AM CDT Inpatient Discharge Summary BRIEF OVERVIEW Admitting Provider: Kathia Florez MD Discharge Provider: Breanna Boston MD Primary Care Physician at Discharge: Breanna Boston MD [phone] Admission Date: 04/14/2019 Discharge Date: 04/19/2019 Admission Location: [facility] Primary Discharge Diagnosis: l lower leg cellulitis Secondary Discharge Diagnosis: No Active Problems: There are no active problems currently on the Problem List. Please update the Problem List and refresh. lymphadema, diastolic chf, iron def anemia DETAILS OF HOSPITAL STAY Presenting Problem/History of Present Illness: Presented with l loer leg rednes.hot and more swollen then usual seen in er and processed thru them Hospital Course: admitted and started on iv antibiotics. Iv lasix started and switched to oral yesterdy. Elevated bnp noted on admitted and I ordered a echo to eval and eje fr so looking at mild diastolic cysfunctino/cjf, htn contolled and meds changed aoround With diltiazem stopped to help limit associated edema and started on losartan given jese hx, chlorthaladone stoped and oral lasix bid started to re place. Iron def anemia established and seen by gi and apparent established colon [address] vanna wallace then. The pateint declined workup with egd and colon now and agreed to contact dr goncalves as outpatient to setup eval I discussed contacting soon as there is an expected delay to being worked in and eval'd. In mean time oral iron started. No obvious rectal bleeding noted. And b12 nl. Mild elevated monocytes and stable wbc at [id number] and hgb at 10. lymphodema clinic refereral started thru the office to be eval'd and poscessed as they sugest after there assessment. Fairly severe weakness and gait limits started on pt and will be [facility] and warned her that what ever is achieved if she does not cont on her own audie be lost very rapidly. She is to [facility] for home care with one provider. Spent 45 min on dc Active Issues Requiring Follow-up: Iron def anemia. luekocytosis with mild monocyte elevation. Diastolic chf mild, htn Test Results Pending at Discharge: Order Current Status Blood culture Blood Antecubital, left Preliminary result Blood culture Blood Antecubital, right Preliminary result Operative Procedures Performed: Other Procedures: echo Pertinent Test Results: Nl eje fx Discharge Details Physical Exam at Discharge: Discharge Condition: stable Pulse: 60 Resp: 16 BP: 130/63 Temp: 36.2 ??C (97.2 ??F) Weight: 124.7 kg (275 lb) Pertinent Exam Findings at Discharge: in bed with mild redness And severe stasis changes on both lower legs. Discharge Disposition: Code Status at Discharge: limited Discharge Instructions: Discharge Medications: Current Medications TAKE these medications albuterol HFA 90 mcg/actuation inhaler Commonly known as: PROAIR HFA Inhale 2 puffs every 4 (four) hours as needed for shortness of breath As needed for wheezing buPROPion SR 150 mg 12 hr tablet Commonly known as: ZYBAN Take 1 tablet (150 mg total) by mouth 2 (two) times a day chlorthalidone 25 mg tablet Take 1 tablet (25 mg total) by mouth daily cloNIDine 0.1 mg tablet Commonly known as: CATAPRES Take 1 tablet (0.1 mg total) by mouth 2 (two) times a day * dilTIAZem XR 240 mg 24 hr capsule Commonly known as: CARDIZEM CD,DILACOR XR Take 1 capsule (240 mg total) by mouth daily. * dilTIAZem XR 240 mg 24 hr capsule Commonly known as: DILT-XR Take 1 capsule (240 mg total) by mouth daily FLUoxetine 40 mg capsule Commonly known as: PROzac Take 1 capsule (40 mg total) by mouth daily fluticasone propionate 50 mcg/actuation nasal spray Commonly known as: FLONASE Administer 2 sprays into each nostril daily HYDROcodone-acetaminophen 5-325 mg per tablet Commonly known as: NORCO Take 1 tablet by mouth every 6 hours as needed for pain irbesartan 300 mg tablet Commonly known as: AVAPRO 1 po q day * WIXELA INHUB 250-50 mcg/dose diskus inhaler Generic drug: fluticasone propion-salmeterol INHALE 1 PUFF BY MOUTH TWICE DAILY * fluticasone propion-salmeterol 250-50 mcg/dose diskus inhaler Commonly known as: ADVAIR DISKUS Inhale 1 puff 2 (two) times a day Rinse mouth with water after use to reduce aftertaste and incidence of candidiasis. Do not swallow. * This list has 4 medication(s) that are the same as other medications prescribed for you. Read the directions carefully, and ask your doctor or other care provider to review them with you. Outpatient Follow-Up: Future Appointments Date Time Provider Department Center 07/02/2019 9:30 AM [facility], [facility] 07/09/2019 2:15 PM Breanna Boston MD [facility] Contact Information for Follow-ups [address] [phone] Next Steps: Follow up documented in this encounter Medications at Time [...] 04/19/2019 0 documented as of this encounter Ordered Prescriptions Prescription Sig Dispense Quantity Refills Last Filled Start Date End Date amoxicillin (AMOXIL) 500 mg tablet/capsuleInd ications:Skin/Sof t Tissue Infection 2 po bid , to use along with augmentin bid 40 tablet/capsul e 04/19/2019 9 polyethylene glycol (MIRALAX) 17 gram packetIndications :constipation Take 1 packet (17 g total) by mouth daily 30 packet 11 04/19/2019 0 furosemide (LASIX) 20 mg tablet Take 1 tablet (20 mg total) by mouth 2 (two) times a day 60 tablet 04/19/2019 0 ferrous sulfate 325 mg (65 mg of elemental iron) tabletIndications :Iron Deficiency Anemia Take 1 tablet (325 mg total) by mouth 2 (two) times a day with meals 60 tablet 04/19/2019 9 bisacodyl EC (DULCOLAX EC) 5 mg EC tablet Take 2 tablets (10 mg total) by mouth daily as needed for constipation (If no results 24 hours after milk of magnesia) 30 tablet 11 04/19/2019 0 Bifidobacterium infantis (ALIGN) 4 mg capsule Take 1 capsule (4 mg total) by mouth daily 30 capsule 04/19/2019 2 amoxicillin-clavu lanate (AUGMENTIN) 875-125 mg per tabletIndications :Skin/Soft Tissue Infection Take 1 tablet by mouth 2 (two) times a day Use with 2 amoxil 500mg pills 20 tablet 04/19/2019 9 acetaminophen (TYLENOL) 325 mg tablet Take 2 tablets (650 mg total) by mouth every 4 (four) hours as needed for headaches or fever 30 tablet 04/19/2019 0 documented in this encounter Discharge Disposition Disposition Code Departure Means Destination Discharge to [facility] documented in this encounter Progress Notes * Guerda Lewis, RD - 04/19/2019 8:40 AM CDT Nutrition Assessment Reason for Assessment: Follow Up Encounter Date: 04/19/19 8:40 AM Nutrition Assessment and Plan: Patient is a 73 y.o. female. Admit Dx: CELLULITIS OF LEFT LOWER EXTREMITY. Admitted on 04/14/2019, current LOS is 5 days. Nutrition Screen What diet do you follow at home?: regular Have You Recently Lost Weight Without Trying?: No Poor Oral Intake for Four or More Days Prior to Admission: Yes (Comment) Current diet order: Adult Diet Restricted; Low Fat, Low Chol, Low Na, 2 GM Sodium Pt intake is adequate. PO intakes: 75-100% of meals Wt Readings from Last 10 Encounters: 04/19/19 124.7 kg (275 lb) 03/15/17 135.2 kg (298 lb) 09/01/16 135.2 kg (298 lb) 03/10/16 126.1 kg (278 lb) 09/04/15 129.7 kg (286 lb) 03/04/15 130.6 kg (288 lb) 01/28/15 128.4 kg (283 lb) 09/03/14 127.9 kg (282 lb) 12/31/13 127 kg (280 lb) 07/02/13 126.1 kg (278 lb) Nutrition Diagnosis 1: Overweight/Obesity Related to: Food choices Evidenced by: Physical finding, BMI 40 or more ?? Interventions: [place] diet preferences within the limits of nutrition care order ?? Monitoring and Evaluation: Discharge plans, PO intake, Labs ?? Goals: Adequate nutrition to meet estimated needs by next assessment ? Estimated needs: ?? Total Kcal/kg Estimated Needs : 2653.54 based on Kcal/k. Type of Weight Used for Estimated Kcals: Current ?? MSJ using ?? [place] State ?? Total Protein Estimated Needs (gm): 212.28 Protein Needs Based on g/k.2 Type of Weight Used for Estimated Protein : Current. ?? Total Fluid Estimated Needs: 2653.54 Fluid Needs Based on : 1 ml/kcal. Objective Anthropometrics Weight: 124.7 kg (275 lb) Admission Weight : 176.9 kg Weight Change: -3.20 kg (-7.06 lbs) IBW/kg (Calculated) : 49.9 kg Height: 157.5 cm (5' 2 ) Weight in (lb) to have BMI = 25: 136.4 BMI (Calculated): 50.3 3 Day I/O Summary 04/17 1900 - 04/19 0659 In: 440 [P.O.:440] Out: 2800 [Urine:2800] Temp: 36.9 ??C (98.4 ??F) Past Medical History: Diagnosis Date ??? Asthma ??? COPD (chronic obstructive pulmonary disease) (CMS/HCC) ??? History of transfusion ??? 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 HX 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-ORTHOPEDIST ??? HX OTHER MEDICAL IGT ??? Hypertension ??? Moderate episode of recurrent major depressive disorder (CMS/HCC) 12/05/2017 Medications and Lab Review: Scheduled Meds: amoxicillin-clavulanate 875 mg of amoxicillin oral BID Bifidobacterium infantis 4 mg oral Daily budesonide-formoterol 2 puff inhalation BID (RT) buPROPion SR 150 mg oral BID cloNIDine 0.1 mg oral BID enoxaparin 40 mg subcutaneous Q12H SAL ferrous sulfate 65 mg of elemental iron oral BID with meals (bkfst, dinner) FLUoxetine 40 mg oral Daily furosemide 20 mg oral BID DIURETIC losartan 100 mg oral Daily polyethylene glycol 17 g oral Daily senna-docusate 1 tablet oral BID sodium chloride 0.9% 0.5-20 mL intra-catheter Q8H Continuous Infusions: Sodium Date Value Ref Range Status 04/19/2019 134 (L) 135 - 145 mmol/L Final Potassium, pl Date Value Ref Range Status 04/19/2019 3.9 3.3 - 4.9 mmol/L Final BUN Date Value Ref Range Status 04/19/2019 16 8 - 25 mg/dL Final Creatinine Date Value Ref Range Status 04/19/2019 0.64 0.60 - 1.10 mg/dL Final Albumin Date Value Ref Range Status 04/19/2019 2.6 (L) 3.5 - 5.0 g/dL Final Calcium Date Value Ref Range Status 04/19/2019 9.4 8.5 - 10.3 mg/dL Final Lab Results Component Value Date HGBA1C 5.5 06/14/2018 POC Glucose: na(04/19) Nursing Assessment: Emesis Assessment Emesis Color/Appearance: Undigested food, Medication Dane Scale Score: 19 Skin Integrity: Rash, Redness, Scaling Nutrition Follow-Up : 04/26/[address],LDN * Breanna Boston MD - 04/18/2019 6:50 PM CDT Daily Progress Subjective Chief complaint of l leg red.pain celluliits Interval History: l lower leg steadily better with edema bettter. Takes suport to ttransfer. Admit bnp high and not chased with echo today with nl maryse fx hs to me with iron def confirmed that colon in Past but unknown when to reports to gi that was t6 yrs go and that has long standing hs of ironi def anemia. ehr nots last cbc 5 yrs ago and no and not checked since. Declines gi eval now and agrees to callig Her gi md for gi eval with dr santana suggesting upper and lower eval Iv lasix stoopped and with nl eje fx will restart lasix as oral and stopthoe chlorthlacone. startied lisinopri forbp and sstopped the ccb for adding to edema. Objective Vitals: 24hr Min/Max: Temp Min: 36.7 ??C (98 ??F) Max: 37.5 ??C (99.5 ??F) Pulse Min: 39 Max: 76 BP Min: 132/40 Max: 178/87 Resp Min: 18 Max: 20 SpO2 Min: 90 % Max: 98 % Most Recent : Vitals: 04/18/19 1200 BP: Pulse: 73 Resp: Temp: SpO2: 98% I/O last 2 completed shifts: In: 1260 [P.O.:1260] Out: 1200 [Urine:1200] I/O this shift: In: 440 [P.O.:440] Out: 800 [Urine:800] Physical Exam: General Appearance: Alert, cooperative, no distress, appears stated age, well developed, well nourished Head: Normocephalic, without obvious abnormality, atraumatic Eyes: PERRL, conjunctiva/corneas clear, EOM's intact, fundi benign, both eyes, anicteric Ears: Normal TM's and external ear canals, both ears Nose: Nares normal, septum midline, mucosa normal, no drainage or sinus tenderness Throat: Lips, mucosa, and tongue normal; teeth and gums normal, mucous membranes moist Neck: Supple, symmetrical, trachea midline, no adenopathy; thyroid: No enlargement/tenderness/nodules; no carotid bruit or JVD Back: Symmetric, no curvature, ROM normal, no CVA tenderness Lungs: Clear to auscultation bilaterally, respirations unlabored Chest wall: No tenderness or deformity Cardiovascular: Regular rate and rhythm, S1 and S2 normal, no murmur, rub or gallop, no edema, pulses 2+ and symmetric to all extremeties Abdomen: Soft, non-tender, bowel sounds active all four quadrants, no masses, no organomegaly, non-distended Genitalia: nl Rectal: deferred but no reproted Signs of bleeding Extremities: Extremities normal, atraumatic, no cyanosis or edema, no clubbing Skin: l lower leg with improving redness nearly matching r. Major stasis changes with skin /dermas changes. Lymph nodes: Cervical, supraclavicular, and axillary nodes normal Neurologic: Alert & oriented x 4, CNII-XII intact. Normal strength, sensation and reflexes throughout Psychosocial: Normal affect and mood Lab/Radiology/Diagnostic Review: Recent Results (from the past 48 hour(s)) CBC with auto differential Collection Time: 04/17/19 3:41 AM Result Value Ref Range WBC 12.3 (H) 3.8 - 9.9 K/cumm Hgb 10.6 (L) 11.9 - 15.5 g/dL Hct 32.3 (L) 35.6 - 45.5 % Plt 202 150 - 400 K/cumm MPV 9.4 9.1 - 12.3 fL RBC 3.49 (L) 3.90 - 5.20 M/cumm MCV 92.6 81.3 - 96.4 fL MCH 30.4 27.1 - 33.3 pg MCHC 32.8 32.3 - 35.7 g/dL RDW CV 14.1 11.1 - 14.9 % RDW SD 48.0 35.7 - 48.1 fL NRBC abs 0.00 0.00 - 0.01 K/cumm Comprehensive metabolic panel Collection Time: 04/17/19 3:41 AM Result Value Ref Range Sodium 135 135 - 145 mmol/L Potassium, pl 4.1 3.3 - 4.9 mmol/L Chloride 98 97 - 110 mmol/L CO2 27 22 - 32 mmol/L Anion gap 10 2 - 15 mmol/L BUN 14 8 - 25 mg/dL Creatinine 0.59 (L) 0.60 - 1.10 mg/dL Glucose 101 70 - 199 mg/dL Calcium 9.5 8.5 - 10.3 mg/dL Bilirubin, total 0.5 0.1 - 1.2 mg/dL Protein, pl 6.7 6.5 - 8.5 g/dL Albumin 2.7 (L) 3.5 - 5.0 g/dL Alk phos 162 (H) 40 - 130 Units/L ALT 9 7 - 45 Units/L AST 17 10 - 45 Units/L Differential, auto Collection Time: 04/17/19 3:41 AM Result Value Ref Range Neutrophil abs 9.2 (H) 1.7 - 6.5 K/cumm Imm gran abs 0.1 0.0 - 0.1 K/cumm Lymphocyte abs 1.7 0.8 - 3.3 K/cumm Monocyte abs 1.3 (H) 0.2 - 0.8 K/cumm Eosinophil abs 0.0 0.0 - 0.5 K/cumm Basophil abs 0.0 0.0 - 0.1 K/cumm Neutrophil pct 75.1 % Imm gran pct 0.7 % Lymphocyte pct 13.5 % Monocyte pct 10.5 % Eosinophil pct 0.0 % Basophil pct 0.2 % eGFR Collection Time: 04/17/19 3:41 AM Result Value Ref Range GFR 92 mL/min/1.73 m2 Vitamin B12 Collection Time: 04/18/19 3:37 AM Result Value Ref Range Cyanocobalamin (Vit B12) 595 230 - 1,250 pg/mL CBC with auto differential Collection Time: 04/18/19 3:39 AM Result Value Ref Range WBC 12.1 (H) 3.8 - 9.9 K/cumm Hgb 11.4 (L) 11.9 - 15.5 g/dL Hct 33.7 (L) 35.6 - 45.5 % Plt 223 150 - 400 K/cumm MPV 8.8 (L) 9.1 - 12.3 fL RBC 3.71 (L) 3.90 - 5.20 M/cumm MCV 90.8 81.3 - 96.4 fL MCH 30.7 27.1 - 33.3 pg MCHC 33.8 32.3 - 35.7 g/dL RDW CV 13.8 11.1 - 14.9 % RDW SD 46.2 35.7 - 48.1 fL NRBC abs 0.00 0.00 - 0.01 K/cumm Comprehensive metabolic panel Collection Time: 04/18/19 3:39 AM Result Value Ref Range Sodium 134 (L) 135 - 145 mmol/L Potassium, pl 4.0 3.3 - 4.9 mmol/L Chloride 95 (L) 97 - 110 mmol/L CO2 29 22 - 32 mmol/L Anion gap 10 2 - 15 mmol/L BUN 16 8 - 25 mg/dL Creatinine 0.60 0.60 - 1.10 mg/dL Glucose 106 70 - 199 mg/dL Calcium 9.6 8.5 - 10.3 mg/dL Bilirubin, total 0.5 0.1 - 1.2 mg/dL Protein, pl 7.1 6.5 - 8.5 g/dL Albumin 2.7 (L) 3.5 - 5.0 g/dL Alk phos 160 (H) 40 - 130 Units/L ALT 14 7 - 45 Units/L AST 21 10 - 45 Units/L Differential, auto Collection Time: 04/18/19 3:39 AM Result Value Ref Range Neutrophil abs 8.1 (H) 1.7 - 6.5 K/cumm Imm gran abs 0.3 (H) 0.0 - 0.1 K/cumm Lymphocyte abs 2.0 0.8 - 3.3 K/cumm Monocyte abs 1.7 (H) 0.2 - 0.8 K/cumm Eosinophil abs 0.0 0.0 - 0.5 K/cumm Basophil abs 0.0 0.0 - 0.1 K/cumm Neutrophil pct 66.8 % Imm gran pct 2.4 % Lymphocyte pct 16.3 % Monocyte pct 14.1 % Eosinophil pct 0.0 % Basophil pct 0.4 % eGFR Collection Time: 04/18/19 3:39 AM Result Value Ref Range GFR 92 mL/min/1.73 m2 Xr Chest 1 Vw Portable Result Date: 04/14/2019 Narrative: XR CHEST 1 VIEW HISTORY: Weakness COMPARISON: None available. FINDINGS: Heart is mildly enlarged. Lungs are clear with no pleural effusion. Impression: MILD CARDIOMEGALY WITH NO ACTIVE DISEASE Electronically signed by: Pawan Harrison M.D. 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 Mild mitral annular calcification. Mild to moderate mitral valve regurgitation. Normal structureof the aortic valve. Normal structure of the tricuspid valve. Trivial regurgitation in the tricuspid valve. Electronically Signed By: Dr Roly Husain 2019-04-18 13:49:45 CDT Assessment/Plan Active Problems: No Active Problems: There are no active problems currently on the Problem List. Please update the Problem List and refresh. l leg celllulitis improved and starting oral augmentin with added 1000 amoxil bid. Probiotics. stoped chlthalidone and started lasix 20 bid stoopped diltiazam for edema association and started lisinorpi instead but with apparent diastolic chf will add lsix and suse to controll fluid. Accepted to [facility] and will send tomorrow with changes in meds today. Will need to setup outpateint eval for gi a nd iron def anemia and will start oral bid iron for now. s pent 45 min on today * Saranya Alas - 04/18/2019 4:31 PM CDT Spiritual Care: Completed Healthcare POA with pt. No need for further follow up. * Saranya Alas - 04/17/2019 3:06 PM CDT Spiritual Care: Visited with pt per referral from [employer] to assist with Healthcare POA/Living Will. Pt began to complete POA, but stated that she wants to wait until her son can look it overtoo. Arranged to follow up tomorrow to assist with completion. Will remain available for assistanceas requested. * Breanna Smith, PT - 04/17/2019 12:25 PM CDT Physical Therapy 04/17/19 1115 General Chart Reviewed Yes Session Type Evaluation PT Received On 04/17/19 Subjective Agreeable to Therapy Family/Caregiver Present No Physical Therapy-Patient Goal go to rehab somewhere for lymphedema tx Precautions Precautions Fall risk Home Living Type of Home House Home Layout Two level (main level living) Home Access Ramped entrance Home Mobility Equipment 4-Wheeled walker;Single point cane Prior Function Level of [place] Needs assistance with ADLs;Needs assistance with ambulation;Needs assistance with homemaking Lives With Spouse Receives Help From Spouse/Significant other Pain Assessment Pain Assessment No/denies pain Cognition Overall Cognitive Status WFL Orientation Oriented X4 (person, place, time, situation) Balance Balance Yes Static Sitting Balance Static Sitting-Balance Support Bilateral upper extremity supported;Feet supported Static Sitting-Level of Assistance Close supervision Static Standing Balance Static Standing-Balance Support Bilateral upper extremity supported Static Standing-Level of Assistance Moderate assistance Bed Mobility 1 Bed Mobility From 1 Supine Bed Mobility Type 1 To Bed Mobility to 1 Edge of bed Level of Assistance 1 Moderate assistance;Maximum assistance Bed Mobility Comments 1 (need to deflate seat portion of bed) Transfer 1 Transfer From 1 Bed (seat portion deflated) Transfer Type 1 To Transfer to 1 Stand Technique 1 Sit to stand;Stand to sit Transfer Device 1 Wheeled walker Transfer Level of Assistance 1 Moderate assistance;Maximum assistance Ambulation 1 Distance (ft) 1 3 steps Surface 1 Level tile Device 1 Wheeled walker Assistance 1 Moderate assistance Gait: Requires assist with 1 Maintaining balance Gait: Requires verbal cues to 1 Use assistive device safely Quality of Gait 1 dec; step length, propulsion, foot clearance bilat Ambulation Comments 1 fall risk RLE Assessment RLE Assessment (significant lymphedema, dec arom and strength) LLE Assessment LLE Assessment (significant lymphedema, dec arom and strength) Assessment Potential/Prognosis Good Problem List Decreased strength;Decreased range of motion;Decreased mobility;Obesity (significant bilat LE edema) Plan Plan Plan of care initiated;If this is the last note, consider this the discharge summary Recommendation/Plan PT Recommendation/Plan Intermediate Facility (some sort of facility for lymphedema treatment) PT Frequency 3-5x/wk;Other (comment) (prn sat) Treatment/Interventions Bed mobility;Functional transfer training;Gait training PT Equipment Recommended None PT Evaluation Complete Yes * Angie Mcmahan, RN - 04/16/2019 4:00 PM CDT Pt seen as requested for lymphedema. Pt states legs have been this size for years . She has never treated them as she didn't know what to do. They recently started weeping. Since hospitalization & elevation of legs, no longer weeping. Pt needs lymphedema wraps which we do not do here & lymphedema pumps. Pt states her would be able to drive her for weekly visits to lymphedema clinic for message & wraps. Forms left in chart for MD to complete & then will be faxed for pumps. * Page Merritt MSW - 04/16/2019 2:55 PM CDT Referral for dc planning. Sw met with pt and discussed dc plans. Pt lives at home with spouse. Pt recently approved for homemaker services from [employer]. Pt uses rollator walker at home. PT evaluated and recommended SNF. Pt stated she has never had to go for rehab; has only done outptrehab...and needs time to process it. Sw provided SNF choice list and information for Medicare coverage. Sw will f/u with pt tomorrow. 04/16/19 1447 Referral Data Referral Source Physician Referral Reason Discharge Planning County Information [facility] Patient Information Primary Caregiver Self Support System Spouse/Significant Other Support system contact info (name, phone, availablity) Spouse: Francesco Juarez Legal Information Advance Directive Patient does not have advance directive;Patient would like information (Notified Chaplain Beaver for information.) Prior Level of Functioning Durable Medical Equipment Walker (wheeled);Cane (single prong);Other (Comment) (Rollator; ramp) Living Arrangement House;Lives with someone (Lives with spouse) Housework Needs Assistance (Comment) Behavior Oriented Income Information Income Source Fpc/Pension Income/Expense Information Income meets expenses Referral To Community [facility] (Pt recently approved for [employer] [facility]; not sure how many days as just started last .) Potential Discharge Needs Discharge Potential SNF Dialysis No Psychiatric services No Communications Intermediate Facility list given to patient/patient intake representative? Yes Fiduciary Responsibility Patient/Designated decision maker was informed of [facility] fiduciary relationship as necessary * Rohini Mcdonald, OT - 04/16/2019 2:15 PM CDT Occupational Therapy 04/16/19 0915 General Chart Reviewed Yes Session Type Evaluation OT Received On 04/16/19 Subjective Agreeable to Therapy Family/Caregiver Present No Occupational Therapy-Patient Goal unsure at this time Precautions Precautions Fall risk Home Living Type of Home House Home Mobility Equipment 4-Wheeled walker;Single point cane Additional Comments uses no devices, furniture walks Prior Function Level of Bland Needs assistance with ADLs;Needs assistance with homemaking Lives With Spouse Receives Help From Spouse/Significant other Driving Yes (not recently ) ADL Assistance Needs assistance Bathing Moderate Dressing Moderate Grooming Minimal Toileting Independent Feeding Independent Instrumental ADL (IADL) Assistance Needs assistance Meal Prep Total Laundry Total Cleaning Total Prior Function Comments patient is not a very reliable source of PLOF. Difficulty to grasp what ADLs she was completing and what she wasn't Grooming Grooming: Where assessed Chair Grooming: Level of assistance Stand by Grooming: Assistance with Wash/dry face LE Dressing LE Dressing: Level of assistance Total LE Dressing: Assistance with Don/doff L sock;Don/doff R sock Pain Assessment Pain Score 1 Pain Location Leg Pain Orientation Left Cognition Overall Cognitive Status WFL Orientation Oriented X4 (person, place, time, situation) Static Sitting Balance Static Sitting-Balance Support Bilateral upper extremity supported Static Sitting-Level of Assistance Close supervision Dynamic Sitting Balance Dynamic Sitting-Balance Support No upper extremity supported Dynamic Sitting-Balance Forward lean Dynamic Sitting-Level of Assistance Contact guard Static Standing Balance Static Standing-Balance Support No upper extremity supported (patient is unable to stand upright ) Static Standing-Level of Assistance Minimum assistance (stand pivots ) Bed Mobility 1 Bed Mobility From 1 Supine Bed Mobility Type 1 To Bed Mobility to 1 Edge of bed Level of Assistance 1 Moderate assistance Bed Mobility Comments 1 with LE Transfer 1 Transfer From 1 Bed Transfer Type 1 To Transfer to 1 Chair with arms Technique 1 Stand pivot Transfer Device 1 No device Transfer Level of Assistance 1 Minimum assistance RUE Assessment RUE Assessment WFL (weakness grossly ) LUE Assessment LUE Assessment WFL (weakness grossly ) Assessment Prognosis Good Problem List Decreased ADLs;Decreased functional mobility Barriers to Discharge None Plan Plan Plan of care initiated;If this is the last note, consider this the discharge summary Recommendation/Plan OT Recommendation Intermediate Facility OT Frequency 3-5x/wk Treatment/Interventions ADL/IADL retraining;Functional mobility training OT Evaluation Complete Yes Multi-Disciplinary Problems (from Occupational Therapy) Active Problems Problem: Toileting Start Date: 04/16/19 Goal Start Date End Date STG - Patient will complete toileting tasks with 04/16/19 -- Goal Details: SBA Problem: Transfers Start Date: 04/16/19 Goal Start Date End Date STG - Patient will perform toilet transfer 04/16/19 -- Goal Details: SBA using w/w Problem: OT Misc Start Date: 04/16/19 Goal Start Date End Date STG - Misc 1 04/16/19 -- Goal Details: Pt. to perform B UE strengthening exercises I'ly for HEP to increase INDEP with self care tasks/functional mobility * Breanna Boston MD - 04/16/2019 12:46 PM CDT Daily Progress Subjective Chief complaint of l leg red tender Interval History: l leg better with less redness,tenderness and pain. Found to be low lst night with sa02 Objective Vitals: 24hr Min/Max: Temp Min: 37.1 ??C (98.8 ??F) Max: 37.5 ??C (99.5 ??F) Pulse Min: 61 Max: 73 BP Min: 133/46 Max: 147/49 Resp Min: 18 Max: 18 SpO2 Min: 85 % Max: 98 % Most Recent : Vitals: 04/16/19 1200 BP: Pulse: 61 Resp: Temp: SpO2: 98% I/O last 2 completed shifts: In: 1090 [P.O.:1090] Out: 1675 [Urine:1675] I/O this shift: In: 480 [P.O.:480] Out: 1000 [Urine:1000] Physical Exam: General Appearance: Alert, cooperative, no distress, appears stated age, well developed, well nourished Head: Normocephalic, without obvious abnormality, atraumatic Eyes: PERRL, conjunctiva/corneas clear, EOM's intact, fundi benign, both eyes, anicteric Ears: Normal TM's and external ear canals, both ears Nose: Nares normal, septum midline, mucosa normal, no drainage or sinus tenderness Throat: Lips, mucosa, and tongue normal; teeth and gums normal, mucous membranes moist Neck: Supple, symmetrical, trachea midline, no adenopathy; thyroid: No enlargement/tenderness/nodules; no carotid bruit or JVD Back: Symmetric, no curvature, ROM normal, no CVA tenderness Lungs: Clear to auscultation bilaterally, respirations unlabored Chest wall: No tenderness or deformity Cardiovascular: Regular rate and rhythm, S1 and S2 normal, no murmur, rub or gallop, no edema, pulses 2+ and symmetric to all extremeties Abdomen: Soft, non-tender, bowel sounds active all four quadrants, no masses, no organomegaly, non-distended Genitalia: nl Rectal: deferred Extremities: Extremities normal, atraumatic, no cyanosis or edema, no clubbing Skin: Chronic skin changes in both lower legs with l lower redness retracting. Lymph nodes: Cervical, supraclavicular, and axillary nodes normal Neurologic: Alert & oriented x 4, CNII-XII intact. Normal strength, sensation and reflexes throughout Psychosocial: Normal affect and mood Lab/Radiology/Diagnostic Review: Recent Results (from the past 48 hour(s)) CBC with auto differential Collection Time: 04/14/19 7:37 PM Result Value Ref Range WBC 15.5 (H) 3.8 - 9.9 K/cumm Hgb 12.5 11.9 - 15.5 g/dL Hct 37.2 35.6 - 45.5 % Plt 211 150 - 400 K/cumm MPV 8.9 (L) 9.1 - 12.3 fL RBC 4.05 3.90 - 5.20 M/cumm MCV 91.9 81.3 - 96.4 fL MCH 30.9 27.1 - 33.3 pg MCHC 33.6 32.3 - 35.7 g/dL RDW CV 14.5 11.1 - 14.9 % RDW SD 49.1 (H) 35.7 - 48.1 fL NRBC abs 0.00 0.00 - 0.01 K/cumm Comprehensive metabolic panel Collection Time: 04/14/19 7:37 PM Result Value Ref Range Sodium 133 (L) 135 - 145 mmol/L Potassium, pl 4.3 3.3 - 4.9 mmol/L Chloride 98 97 - 110 mmol/L CO2 25 22 - 32 mmol/L Anion gap 10 2 - 15 mmol/L BUN 23 8 - 25 mg/dL Creatinine 0.64 0.60 - 1.10 mg/dL Glucose 98 70 - 199 mg/dL Calcium 9.8 8.5 - 10.3 mg/dL Bilirubin, total 0.9 0.1 - 1.2 mg/dL Protein, pl 6.9 6.5 - 8.5 g/dL Albumin 3.4 (L) 3.5 - 5.0 g/dL Alk phos 126 40 - 130 Units/L ALT 21 7 - 45 Units/L AST 19 10 - 45 Units/L Blood gas, venous Collection Time: 04/14/19 7:37 PM Result Value Ref Range pH, Venous 7.39 7.32 - 7.43 PCO2, Venous 44 40 - 50 mmHg PO2, Venous 39 mmHg HCO3 Venous, Calculated 26 20 - 30 mmol/L BE, venous 1 mmol/L Pro B-type natriuretic peptide Collection Time: 04/14/19 7:37 PM Result Value Ref Range NT-proBNP 1,697 (H) <=300 pg/mL Protime-INR Collection Time: 04/14/19 7:37 PM Result Value Ref Range PT 14.9 (H) 9.5 - 13.0 sec INR 1.31 (H) 0.90 - 1.20 Blood culture Blood Antecubital, left Collection Time: 04/14/19 7:37 PM Result Value Ref Range Report Preliminary Report: No growth to date. ABO/Rh Collection Time: 04/14/19 7:37 PM Result Value Ref Range ABO/RH. O Positive Antibody screen Collection Time: 04/14/19 7:37 PM Result Value Ref Range Charisma, indirect, Gel Interpretation Negative ABSC Differential, auto Collection Time: 04/14/19 7:37 PM Result Value Ref Range Neutrophil abs 14.0 (H) 1.7 - 6.5 K/cumm Imm gran abs 0.0 0.0 - 0.1 K/cumm Lymphocyte abs 0.9 0.8 - 3.3 K/cumm Monocyte abs 0.5 0.2 - 0.8 K/cumm Eosinophil abs 0.0 0.0 - 0.5 K/cumm Basophil abs 0.0 0.0 - 0.1 K/cumm Neutrophil pct 90.3 % Imm gran pct 0.2 % Lymphocyte pct 5.7 % Monocyte pct 3.5 % Eosinophil pct 0.0 % Basophil pct 0.3 % eGFR Collection Time: 04/14/19 7:37 PM Result Value Ref Range GFR 90 mL/min/1.73 m2 Sepsis Lactate w/ Reflex Collection Time: 04/14/19 7:44 PM Result Value Ref Range Sepsis Lactate 1.3 0.7 - 2.0 mmol/L Blood culture Blood Antecubital, right Collection Time: 04/14/19 7:44 PM Result Value Ref Range Report Preliminary Report: No growth to date. Urinalysis reflex to microscopic and culture Urine Collection Time: 04/15/19 12:13 AM Result Value Ref Range Color, ur Yellow Yellow Clarity, ur Clear Clear Specific gravity, ur 1.012 1.010 - 1.025 pH, urine 6.5 Protein, ur ql Negative Negative Glucose, ur ql Negative Negative Ketones, ur Negative Negative Bilirubin, ur Negative Negative Blood, ur Negative Negative Urobilinogen, ur 0.2 mg/dL Nitrite, ur Negative Negative Leukocyte esterase, ur Negative Negative CBC with auto differential Collection Time: 04/15/19 5:19 AM Result Value Ref Range WBC 14.3 (H) 3.8 - 9.9 K/cumm Hgb 10.9 (L) 11.9 - 15.5 g/dL Hct 32.2 (L) 35.6 - 45.5 % Plt 179 150 - 400 K/cumm MPV 9.0 (L) 9.1 - 12.3 fL RBC 3.55 (L) 3.90 - 5.20 M/cumm MCV 90.7 81.3 - 96.4 fL MCH 30.7 27.1 - 33.3 pg MCHC 33.9 32.3 - 35.7 g/dL RDW CV 14.3 11.1 - 14.9 % RDW SD 47.2 35.7 - 48.1 fL NRBC abs 0.00 0.00 - 0.01 K/cumm Basic metabolic panel Collection Time: 04/15/19 5:19 AM Result Value Ref Range Sodium 135 135 - 145 mmol/L Potassium, pl 3.9 3.3 - 4.9 mmol/L Chloride 99 97 - 110 mmol/L CO2 24 22 - 32 mmol/L Anion gap 12 2 - 15 mmol/L BUN 20 8 - 25 mg/dL Creatinine 0.71 0.60 - 1.10 mg/dL Glucose 91 70 - 199 mg/dL Calcium 9.5 8.5 - 10.3 mg/dL Differential, auto Collection Time: 04/15/19 5:19 AM Result Value Ref Range Neutrophil abs 12.1 (H) 1.7 - 6.5 K/cumm Imm gran abs 0.1 0.0 - 0.1 K/cumm Lymphocyte abs 1.2 0.8 - 3.3 K/cumm Monocyte abs 0.8 0.2 - 0.8 K/cumm Eosinophil abs 0.0 0.0 - 0.5 K/cumm Basophil abs 0.0 0.0 - 0.1 K/cumm Neutrophil pct 84.7 % Imm gran pct 0.5 % Lymphocyte pct 8.7 % Monocyte pct 5.9 % Eosinophil pct 0.0 % Basophil pct 0.2 % eGFR Collection Time: 04/15/19 5:19 AM Result Value Ref Range GFR 86 mL/min/1.73 m2 CRP (acute phase) Collection Time: 04/15/19 5:19 AM Result Value Ref Range C-RP 175.8 (H) <=10.0 mg/L Erythrocyte sedimentation rate Collection Time: 04/15/19 5:19 AM Result Value Ref Range Erythrocyte sedimentation rate 35 (H) 1 - 30 mm/hr CBC with auto differential Collection Time: 04/16/19 3:43 AM Result Value Ref Range WBC 13.2 (H) 3.8 - 9.9 K/cumm Hgb 10.8 (L) 11.9 - 15.5 g/dL Hct 32.2 (L) 35.6 - 45.5 % Plt 184 150 - 400 K/cumm MPV 9.1 9.1 - 12.3 fL RBC 3.55 (L) 3.90 - 5.20 M/cumm MCV 90.7 81.3 - 96.4 fL MCH 30.4 27.1 - 33.3 pg MCHC 33.5 32.3 - 35.7 g/dL RDW CV 14.2 11.1 - 14.9 % RDW SD 47.4 35.7 - 48.1 fL NRBC abs 0.00 0.00 - 0.01 K/cumm Comprehensive metabolic panel Collection Time: 04/16/19 3:43 AM Result Value Ref Range Sodium 136 135 - 145 mmol/L Potassium, pl 4.1 3.3 - 4.9 mmol/L Chloride 100 97 - 110 mmol/L CO2 25 22 - 32 mmol/L Anion gap 12 2 - 15 mmol/L BUN 15 8 - 25 mg/dL Creatinine 0.66 0.60 - 1.10 mg/dL Glucose 106 70 - 199 mg/dL Calcium 9.3 8.5 - 10.3 mg/dL Bilirubin, total 0.3 0.1 - 1.2 mg/dL Protein, pl 6.5 6.5 - 8.5 g/dL Albumin 2.8 (L) 3.5 - 5.0 g/dL Alk phos 117 40 - 130 Units/L ALT 11 7 - 45 Units/L AST 15 10 - 45 Units/L Magnesium Collection Time: 04/16/19 3:43 AM Result Value Ref Range Magnesium 1.8 1.6 - 2.4 mg/dL Phosphorus Collection Time: 04/16/19 3:43 AM Result Value Ref Range Phosphorus, pl 2.5 2.3 - 4.5 mg/dL CRP (acute phase) Collection Time: 04/16/19 3:43 AM Result Value Ref Range C-RP 259.6 (H) <=10.0 mg/L Differential, auto Collection Time: 04/16/19 3:43 AM Result Value Ref Range Neutrophil abs 10.3 (H) 1.7 - 6.5 K/cumm Imm gran abs 0.1 0.0 - 0.1 K/cumm Lymphocyte abs 1.6 0.8 - 3.3 K/cumm Monocyte abs 1.2 (H) 0.2 - 0.8 K/cumm Eosinophil abs 0.0 0.0 - 0.5 K/cumm Basophil abs 0.0 0.0 - 0.1 K/cumm Neutrophil pct 78.1 % Imm gran pct 0.5 % Lymphocyte pct 12.3 % Monocyte pct 8.9 % Eosinophil pct 0.0 % Basophil pct 0.2 % eGFR Collection Time: 04/16/19 3:43 AM Result Value Ref Range GFR 89 mL/min/1.73 m2 Xr Chest 1 Vw Portable Result Date: 04/14/2019 Narrative: XR CHEST 1 VIEW HISTORY: Weakness COMPARISON: None available. FINDINGS: Heart is mildly enlarged. Lungs are clear with no pleural effusion. Impression: MILD CARDIOMEGALY WITH NO ACTIVE DISEASE Electronically signed by: Pawan Harrison M.D. Assessment/Plan Active Problems: No Active Problems: There are no active problems currently on the Problem List. Please update the Problem List and refresh. l lower leg cellulitis improved and wbc droppiong. Cont course of meds with strep likely organism. Ask wound care nurse to see for anyy help for chronic skin changes. hypozia likely Sleep apnea and will ask to check thru day and see if with any acitvity or sitting is an issue Discussed outpateint sleep study and will consideer but not agree to for now. Will try out relatives cpap and see if finds tolerable. disucssed pt with staph and that her walker and cane at home is equipement that has butthis is not used. imiportance towork on strength as needs to be aboe totransfeer to be at home and to massive to be able to be assited unles a lift used. Spent 30 min with anemia check iron and b23 on. * Guerda Lewis, RD - 04/16/2019 10:45 AM CDT Nutrition Assessment Reason for Assessment: Screened at Nutrition Risk and Initial Nutrition Assessment Encounter Date: 04/16/19 10:45 AM Nutrition Assessment and Plan: Patient is a 73 y.o. female. Admit Dx: CELLULITIS OF LEFT LOWER EXTREMITY. Admitted on 04/14/2019, current LOS is 2 days. Nutrition Screen What diet do you follow at home?: regular Have You Recently Lost Weight Without Trying?: No Poor Oral Intake for Four or More Days Prior to Admission: Yes (Comment) Current diet order: Adult Diet Restricted; Low Fat, Low Chol, Low Na, 2 GM Sodium Pt intake is adequate. PO intakes: 100% OF MEALS Wt Readings from Last 10 Encounters: 04/15/19 (!) 176.9 kg (390 lb) 03/15/17 135.2 kg (298 lb) 09/01/16 135.2 kg (298 lb) 03/10/16 126.1 kg (278 lb) 09/04/15 129.7 kg (286 lb) 03/04/15 130.6 kg (288 lb) 01/28/15 128.4 kg (283 lb) 09/03/14 127.9 kg (282 lb) 12/31/13 127 kg (280 lb) 07/02/13 126.1 kg (278 lb) Nutrition Diagnosis 1: Overweight/Obesity Related to: Food choices Evidenced by: Physical finding, BMI 40 or more ?? Interventions: [place] diet preferences within the limits of nutrition care order ?? Monitoring and Evaluation: Discharge plans, PO intake, Labs ?? Goals: Adequate nutrition to meet estimated needs by next assessment ? Estimated needs: ?? Total Kcal/kg Estimated Needs : 2653.54 based on Kcal/k. Type of Weight Used for Estimated Kcals: Current ?? MSJ using ?? JESSICA State ?? Total Protein Estimated Needs (gm): 212.28 Protein Needs Based on g/k.2 Type of Weight Used for Estimated Protein : Current. ?? Total Fluid Estimated Needs: 2653.54 Fluid Needs Based on : 1 ml/kcal. Objective Anthropometrics Weight: (!) 176.9 kg (390 lb) Admission Weight : 176.9 kg Weight Change: 42.54 kg (93.80 lbs) IBW/kg (Calculated) : 49.9 kg Height: 157.5 cm (5' 2 ) Weight in (lb) to have BMI = 25: 136.4 BMI (Calculated): 71.3 3 Day I/O Summary 04/14 1900 - 04/16 0659 In: 1210 [P.O.:1190] Out: 1974 [Urine:1974] Temp: 37.3 ??C (99.2 ??F) Past Medical History: Diagnosis Date ??? Asthma ??? COPD (chronic obstructive pulmonary disease) (CMS/HCC) ??? History of transfusion ??? 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 HX 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-ORTHOPEDIST ??? HX OTHER MEDICAL IGT ??? Hypertension ??? Moderate episode of recurrent major depressive disorder (CMS/HCC) 12/05/2017 Medications and Lab Review: Scheduled Meds: budesonide-formoterol 2 puff inhalation BID (RT) buPROPion SR 150 mg oral BID ceFAZolin 2,000 mg intravenous Q8H SAL chlorthalidone 25 mg oral Daily cloNIDine 0.1 mg oral BID dilTIAZem XR 240 mg oral Daily enoxaparin 40 mg subcutaneous Q12H SAL FLUoxetine 40 mg oral Daily furosemide 20 mg intravenous Q12H polyethylene glycol 17 g oral Daily senna-docusate 1 tablet oral BID Continuous Infusions: Sodium Date Value Ref Range Status 04/16/2019 136 135 - 145 mmol/L Final Potassium, pl Date Value Ref Range Status 04/16/2019 4.1 3.3 - 4.9 mmol/L Final BUN Date Value Ref Range Status 04/16/2019 15 8 - 25 mg/dL Final Creatinine Date Value Ref Range Status 04/16/2019 0.66 0.60 - 1.10 mg/dL Final Phosphorus, pl Date Value Ref Range Status 04/16/2019 2.5 2.3 - 4.5 mg/dL Final Albumin Date Value Ref Range Status 04/16/2019 2.8 (L) 3.5 - 5.0 g/dL Final Magnesium Date Value Ref Range Status 04/16/2019 1.8 1.6 - 2.4 mg/dL Final Calcium Date Value Ref Range Status 04/16/2019 9.3 8.5 - 10.3 mg/dL Final Lab Results Component Value Date HGBA1C 5.5 06/14/2018 POC Glucose: na(04/16) Nursing Assessment: Emesis Assessment Emesis Color/Appearance: Undigested food, Medication Dane Scale Score: 18 Skin Integrity: Bruising, Cracking, Redness Nutrition Follow-Up : 04/20/[address],LDN * Wan Nava [facility] - 04/15/2019 12:56 PM CDT This therapy was substituted for Zyban 150 mg po q12 hrs per protocol. * Wan Nava [facility] - 04/15/2019 12:54 PM CDT Dose of enoxaparin adjusted per protocol for bariatric VTE prophylaxis, CrCl > 30 ml/min, BMI>40, and weight >100 kg (CrCl=51 ml/min, BMI=71.33 kg/m2, kq=001.9 Kg)Estimated Creatinine Clearance: 51 mL/min (by C-G formula based on SCr of 0.71 mg/dL). * Wan Nava [facility] - 04/15/2019 12:49 PM CDT This therapy was substituted forAdvair 250-50 mcg per protocol. * Melany Nava [facility] - 04/14/2019 8:47 PM CDT Antimicrobial Stewardship Team Note Renal Dose Adjustment This patient has been assessed by the Antimicrobial Stewardship Team and meets P&T-approved criteria for renal dose adjustment of antimicrobial therapy. Will change existing order for Cefazolin from 1000 mg IV Q8H to 2000 mg IV Q8H per protocol. Anti-infectives (From admission, onward) Start Dose/Rate Route Frequency Ordered Stop 04/14/192099 ceFAZolin (ANCEF) 2,000 mg/20 mL in sterile water (premix) 2,000 mg Indications of Use: Skin/Soft Tissue Infection 2,000 mg 400 mL/hr over 3 Minutes intravenous Every 8 hours scheduled 04/14/192045 Lab Results Component Value Date/Time CREATININE 0.64 04/14/2019 07:37 PM BUNSER 23 04/14/2019 07:37 PM Estimated Creatinine Clearance: 51 mL/min (by C-G formula based on SCr of 0.64 mg/dL). No intake/output data recorded. Renal function trend has been assessed. Serum creatinine at this time. Lab Results Component Value Date/Time WBC 15.5 (H) 04/14/2019 07:37 PM Temp Readings from Last 3 Encounters: 04/14/19 37.9 ??C (100.2 ??F) (Temporal) For questions please contact: Melany Nava [facility] documented in this encounter H&P Notes * Tony Griffiths MD - 04/15/2019 12:42 PM CDT History and Physical SUBJECTIVE Left leg pain and a fall HPI: A 73 year-old female white patient with a previous medical history of Morbid obesity, chronic Lymphedema, Depression, Left iliotibial band syndrome, HTN, Asthma, presented with general weakness and some chills with a possible fever and left lower extremity tenderness and erythema for the last 2 days. The patient had a near fall where she was able to hold herself before falling and so no trauma. She denied any recent leg injuries or Insect bites. Int ED, she was found to have left leg cellulitis and leukocytosis. Past Medical History: Diagnosis Date ??? Asthma ??? COPD (chronic obstructive pulmonary disease) (CMS/HCC) ??? History of transfusion ??? 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 HX 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-ORTHOPEDIST ??? HX OTHER MEDICAL IGT ??? Hypertension ??? Moderate episode of recurrent major depressive disorder (CMS/HCC) 12/05/2017 Past Surgical History: Procedure Laterality Date ??? RHINOPLASTY RHINOPLASTY Medications Prior to Admission Medication Sig Dispense Refill Last Dose ??? albuterol HFA (PROAIR HFA) 90 mcg/actuation inhaler Inhale 2 puffs every 4 (four) hours as needed for shortness of breath As needed for wheezing 1 Inhaler 11 ??? buPROPion SR (ZYBAN) 150 mg 12 hr tablet Take 1 tablet (150 mg total) by mouth 2 (two) times a day 180 tablet 3 ??? chlorthalidone 25 mg tablet Take 1 tablet (25 mg total) by mouth daily 90 tablet 3 ??? cloNIDine (CATAPRES) 0.1 mg tablet Take 1 tablet (0.1 mg total) by mouth 2 (two) times a day 180 tablet 3 ??? dilTIAZem XR (CARDIZEM CD,DILACOR XR) 240 mg 24 hr capsule Take 1 capsule (240 mg total) by mouth daily. 90 capsule 3 Taking ??? dilTIAZem XR (DILT-XR) 240 mg 24 hr capsule Take 1 capsule (240 mg total) by mouth daily 90 capsule 3 ??? FLUoxetine (PROzac) 40 mg capsule Take 1 capsule (40 mg total) by mouth daily 90 capsule 3 ??? fluticasone propion-salmeterol (ADVAIR DISKUS) 250-50 mcg/dose diskus inhaler Inhale 1 puff 2 (two) times a day Rinse mouth with water after use to reduce aftertaste and incidence of candidiasis.Do not swallow. 3 each 3 ??? fluticasone propionate (FLONASE) 50 mcg/actuation nasal spray Administer 2 sprays into each nostril daily 16 mL 11 ??? HYDROcodone-acetaminophen (NORCO) 5-325 mg per tablet Take 1 tablet by mouth every 6 hours as needed for pain 120 tablet 0 ??? irbesartan (AVAPRO) 300 mg tablet 1 po q day 90 tablet 3 Taking ??? WIXELA INHUB 250-50 mcg/dose diskus inhaler INHALE 1 PUFF BY MOUTH TWICE DAILY 180 each 0 Taking Allergies Allergen Reactions ??? Quinapril Other (See comments) Reaction: swollen mouth, Social History Tobacco Use ??? Smoking status: Never Smoker ??? Smokeless tobacco: Never Used Substance Use Topics ??? Alcohol use: Not Currently Comment: no recently Family History Problem Relation Age of Onset ??? Dementia Mother Dementia; ??? Hypertension Mother Hypertension; ??? Depression Mother Depression; ??? Dementia Father Dementia; ??? Hypertension Father Hypertension; ??? Hypertension Brother Hypertension; Review of Systems: 1. Constitutional Denies: weight loss, weight gain, fever, chills, night sweats, fatigue 2. Eyes Denies: change in vision, double vision, eye pain, eye discharge, icterus 3. ENT Denies: change in hearing, ear pain, ear discharge, nose bleed, nasal congestion, sore throat 4. Respiratory Denies: SOB, wheezing, cough, sputum, hemoptysis 5. CV Denies: chest pain, palpitations, syncope, edema, dyspnea 6. GI Denies: abdominal pain, decreased appetite, nausea, vomiting, change in bowel habitus, diarrhea, vomiting, constipation, melena, BRBPR 7. Denies: dysuria, frequency, hematuria, nocturia, urgency 8. Metabolic Denies: cold intolerance, heat intolerance, polyphagia, polydipsia 9. Neurologic Denies: headache, dizziness, seizure, change in mental status, focal weakness, focal numbness 10. Musculoskeletal Denies: myalgia, joint pain, joint redness, joint swelling, extremity pain 11. Hematologic Denies: bleeding, bruising, hematoma, lymphadenopathy, icterus OBJECTIVE Vitals: Arrival Vitals Temp 04/14/19 1856 37.9 ??C (100.2 ??F) Pulse 04/14/19 1856 75 Resp 04/14/19 1856 15 BP 04/14/19 1856 150/49 SpO2 04/14/19 1856 97 % Temp src 04/14/19 1856 Temporal Heart Rate Source 04/14/19 2216 Pulse Oximetry Patient Position 04/15/19 0732 Lying BP Location 04/15/19 0732 Right arm FiO2 (%) -- 24hr Min/Max: Temp Min: 36.7 ??C (98 ??F) Max: 37.9 ??C (100.2 ??F) Pulse Min: 75 Max: 93 BP Min: 129/63 Max: 150/49 Resp Min: 15 Max: 20 SpO2 Min: 91 % Max: 100 % Most Recent : Vitals: 04/15/19 0800 BP: Pulse: 81 Resp: Temp: SpO2: 96% Intake/Output Summary (Last 24 hours) at 04/15/2019 1242 Last data filed at 04/15/2019 1010 Gross per 24 hour Intake 480 ml Output 800 ml Net -320 ml Physical exam: Eyes: EOMI, LINDA, sclare non icteric Neck: supple, no nuchal ridigity, no gross carotid bruits appreciated Pharynx: No gross oral lesion, tongue midline, mucosa moist Lungs CTA Heart: [id number] Abd: +BS, Non Tender, Non distended, No gross hepatomegaly Lower Ext: No gross edema Neuro: No new gross deficits appreciated Musculoskeletal: no gross joint erythema, edema, tenderness Skin: Left leg chronic dermatitis changes and left leg erythema dn tenderness. Lab/Radiology/Diagnostic Review: Recent Results (from the past 24 hour(s)) CBC with auto differential Collection Time: 04/14/19 7:37 PM Result Value Ref Range WBC 15.5 (H) 3.8 - 9.9 K/cumm Hgb 12.5 11.9 - 15.5 g/dL Hct 37.2 35.6 - 45.5 % Plt 211 150 - 400 K/cumm MPV 8.9 (L) 9.1 - 12.3 fL RBC 4.05 3.90 - 5.20 M/cumm MCV 91.9 81.3 - 96.4 fL MCH 30.9 27.1 - 33.3 pg MCHC 33.6 32.3 - 35.7 g/dL RDW CV 14.5 11.1 - 14.9 % RDW SD 49.1 (H) 35.7 - 48.1 fL NRBC abs 0.00 0.00 - 0.01 K/cumm Comprehensive metabolic panel Collection Time: 04/14/19 7:37 PM Result Value Ref Range Sodium 133 (L) 135 - 145 mmol/L Potassium, pl 4.3 3.3 - 4.9 mmol/L Chloride 98 97 - 110 mmol/L CO2 25 22 - 32 mmol/L Anion gap 10 2 - 15 mmol/L BUN 23 8 - 25 mg/dL Creatinine 0.64 0.60 - 1.10 mg/dL Glucose 98 70 - 199 mg/dL Calcium 9.8 8.5 - 10.3 mg/dL Bilirubin, total 0.9 0.1 - 1.2 mg/dL Protein, pl 6.9 6.5 - 8.5 g/dL Albumin 3.4 (L) 3.5 - 5.0 g/dL Alk phos 126 40 - 130 Units/L ALT 21 7 - 45 Units/L AST 19 10 - 45 Units/L Blood gas, venous Collection Time: 04/14/19 7:37 PM Result Value Ref Range pH, Venous 7.39 7.32 - 7.43 PCO2, Venous 44 40 - 50 mmHg PO2, Venous 39 mmHg HCO3 Venous, Calculated 26 20 - 30 mmol/L BE, venous 1 mmol/L Pro B-type natriuretic peptide Collection Time: 04/14/19 7:37 PM Result Value Ref Range NT-proBNP 1,697 (H) <=300 pg/mL Protime-INR Collection Time: 04/14/19 7:37 PM Result Value Ref Range PT 14.9 (H) 9.5 - 13.0 sec INR 1.31 (H) 0.90 - 1.20 Blood culture Blood Antecubital, left Collection Time: 04/14/19 7:37 PM Result Value Ref Range Report Preliminary Report: No growth to date. ABO/Rh Collection Time: 04/14/19 7:37 PM Result Value Ref Range ABO/RH. O Positive Antibody screen Collection Time: 04/14/19 7:37 PM Result Value Ref Range Charisma, indirect, Gel Interpretation Negative ABSC Differential, auto Collection Time: 04/14/19 7:37 PM Result Value Ref Range Neutrophil abs 14.0 (H) 1.7 - 6.5 K/cumm Imm gran abs 0.0 0.0 - 0.1 K/cumm Lymphocyte abs 0.9 0.8 - 3.3 K/cumm Monocyte abs 0.5 0.2 - 0.8 K/cumm Eosinophil abs 0.0 0.0 - 0.5 K/cumm Basophil abs 0.0 0.0 - 0.1 K/cumm Neutrophil pct 90.3 % Imm gran pct 0.2 % Lymphocyte pct 5.7 % Monocyte pct 3.5 % Eosinophil pct 0.0 % Basophil pct 0.3 % eGFR Collection Time: 04/14/19 7:37 PM Result Value Ref Range GFR 90 mL/min/1.73 m2 Sepsis Lactate w/ Reflex Collection Time: 04/14/19 7:44 PM Result Value Ref Range Sepsis Lactate 1.3 0.7 - 2.0 mmol/L Blood culture Blood Antecubital, right Collection Time: 04/14/19 7:44 PM Result Value Ref Range Report Preliminary Report: No growth to date. Urinalysis reflex to microscopic and culture Urine Collection Time: 04/15/19 12:13 AM Result Value Ref Range Color, ur Yellow Yellow Clarity, ur Clear Clear Specific gravity, ur 1.012 1.010 - 1.025 pH, urine 6.5 Protein, ur ql Negative Negative Glucose, ur ql Negative Negative Ketones, ur Negative Negative Bilirubin, ur Negative Negative Blood, ur Negative Negative Urobilinogen, ur 0.2 mg/dL Nitrite, ur Negative Negative Leukocyte esterase, ur Negative Negative CBC with auto differential Collection Time: 04/15/19 5:19 AM Result Value Ref Range WBC 14.3 (H) 3.8 - 9.9 K/cumm Hgb 10.9 (L) 11.9 - 15.5 g/dL Hct 32.2 (L) 35.6 - 45.5 % Plt 179 150 - 400 K/cumm MPV 9.0 (L) 9.1 - 12.3 fL RBC 3.55 (L) 3.90 - 5.20 M/cumm MCV 90.7 81.3 - 96.4 fL MCH 30.7 27.1 - 33.3 pg MCHC 33.9 32.3 - 35.7 g/dL RDW CV 14.3 11.1 - 14.9 % RDW SD 47.2 35.7 - 48.1 fL NRBC abs 0.00 0.00 - 0.01 K/cumm Basic metabolic panel Collection Time: 04/15/19 5:19 AM Result Value Ref Range Sodium 135 135 - 145 mmol/L Potassium, pl 3.9 3.3 - 4.9 mmol/L Chloride 99 97 - 110 mmol/L CO2 24 22 - 32 mmol/L Anion gap 12 2 - 15 mmol/L BUN 20 8 - 25 mg/dL Creatinine 0.71 0.60 - 1.10 mg/dL Glucose 91 70 - 199 mg/dL Calcium 9.5 8.5 - 10.3 mg/dL Differential, auto Collection Time: 04/15/19 5:19 AM Result Value Ref Range Neutrophil abs 12.1 (H) 1.7 - 6.5 K/cumm Imm gran abs 0.1 0.0 - 0.1 K/cumm Lymphocyte abs 1.2 0.8 - 3.3 K/cumm Monocyte abs 0.8 0.2 - 0.8 K/cumm Eosinophil abs 0.0 0.0 - 0.5 K/cumm Basophil abs 0.0 0.0 - 0.1 K/cumm Neutrophil pct 84.7 % Imm gran pct 0.5 % Lymphocyte pct 8.7 % Monocyte pct 5.9 % Eosinophil pct 0.0 % Basophil pct 0.2 % eGFR Collection Time: 04/15/19 5:19 AM Result Value Ref Range GFR 86 mL/min/1.73 m2 Current Facility-Administered Medications Medication Dose Route Frequency Provider Last Rate Last Dose ??? buPROPion SR (ZYBAN) 12 hour tablet 150 mg 150 mg oral BID oTny Griffiths MD ??? ceFAZolin (ANCEF) 2,000 mg/20 mL in sterile water (premix) 2,000 mg 2,000 mg intravenous Q8H [facility] Tony Griffiths MD 400 mL/hr at 04/15/19 0509 2,000 mg at 04/15/19 0509 ??? chlorthalidone tablet 25 mg 25 mg oral Daily Tony Griffiths MD ??? cloNIDine (CATAPRES) tablet 0.1 mg 0.1 mg oral BID Tony Griffiths MD ??? dilTIAZem XR (CARDIZEM CD,DILACOR XR) 24 hour capsule 240 mg 240 mg oral Daily Tony Griffiths MD ??? enoxaparin (LOVENOX) syringe 30 mg 30 mg subcutaneous Q12H [facility] Tony Griffiths MD ??? FLUoxetine (PROzac) capsule 40 mg 40 mg oral Daily Tony Griffiths MD ??? fluticasone propion-salmeterol (ADVAIR DISKUS) 250-50 mcg/dose diskus inhaler 1 puff 1 puff inhalation BID Tony Griffiths MD ??? furosemide (LASIX) 10 mg/mL injection 20 mg 20 mg intravenous Q12H Tony Griffiths MD 20 mg at 04/15/19 0509 ??? heparin 5,000 unit/mL injection 7,500 Units 7,500 Units subcutaneous Q8H [facility] Tony Griffiths MD 7,500 Units at 04/15/19 0508 ??? ibuprofen (ADVIL,MOTRIN) tablet 400 mg 400 mg oral Q6H PRN Kathia Florez MD 400 mg at 04/14/19 2356 ??? morphine injection 2 mg 2 mg intravenous Q3H PRN Colt Ortiz MD 2 mg at 04/15/19 0909 ??? ondansetron ODT (ZOFRAN-ODT) disintegrating tablet 4 mg 4 mg oral Q6H PRN Colt Ortiz MD Or ??? ondansetron (ZOFRAN) injection 4 mg 4 mg intravenous Q6H PRN Colt Ortiz MD 4 mg at 04/15/19 0909 ??? polyethylene glycol (MIRALAX) packet 17 g 17 g oral Daily Tony Griffiths MD ??? senna-docusate (PERICOLACE) 8.6-50 mg per tablet 1 tablet 1 tablet oral BID PRN Colt Ortiz MD ??? senna-docusate (PERICOLACE) 8.6-50 mg per tablet 1 tablet 1 tablet oral BID Tony Griffiths MD A/P No new Assessment & Plan notes have been filed under this hospital service since the last note was generated. Service: Internal Medicine No Active Problems: There are no active problems currently on the Problem List. Please update the Problem List and refresh. 1. Left leg cellulitis: on cefazolin, no abscesses. If no improvement, Then will switch to vanc tomorrow. 2. Morbid obesity: counseled about weight loss. 3. Asthma: stable, resumed her home meds. 4. chronic legs lymphedema 5. Depression and anxiety: resumed home meds. 6. HTN: controlled, resumed home meds. 7. Chronic iliotibial syndrome: pain meds PRN. Tony Griffiths MD Date of Service: 04/15/2019 documented in this encounter Consult Notes * Masha Kevin MD - 04/18/2019 4:44 PM CDT Gastroenterology Consult Reason for consult: iron def anemia Date of Consult: 04/18/2019 SUBJECTIVE Patient is a 73 y.o. female with complaint of iron deficiency anemia. Consultation was requested byDr. Breanna Boston. Patient was admitted several days ago with what appears to be cellulitis in the left lower extremity. Patient has chronic lymphedema of the lower extremities with very limited mobilization. Allow hospitalization noted hemoglobin level decline. Patient has chronic anemia in the past and she takes iron supplements all the time. Patient has regular scope evaluations it is and [facility]. Patient has history of colon polyps. Her bowels are normal. She denies noticing blood in the stool.No nausea. No vomiting. No abdominal pain. No difficulty swallowing. Her last colonoscopy was the 6years ago. No family history of colon cancer.. Past Medical History: Diagnosis Date ??? Asthma ??? COPD (chronic obstructive pulmonary disease) (CMS/HCC) ??? History of transfusion ??? 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 HX 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-ORTHOPEDIST ??? HX OTHER MEDICAL IGT ??? Hypertension ??? Moderate episode of recurrent major depressive disorder (CMS/HCC) 12/05/2017 Past Surgical History: Procedure Laterality Date ??? RHINOPLASTY RHINOPLASTY Medications Prior to Admission Medication Sig Dispense Refill Last Dose ??? albuterol HFA (PROAIR HFA) 90 mcg/actuation inhaler Inhale 2 puffs every 4 (four) hours as needed for shortness of breath As needed for wheezing 1 Inhaler 11 ??? buPROPion SR (ZYBAN) 150 mg 12 hr tablet Take 1 tablet (150 mg total) by mouth 2 (two) times a day 180 tablet 3 ??? chlorthalidone 25 mg tablet Take 1 tablet (25 mg total) by mouth daily 90 tablet 3 ??? cloNIDine (CATAPRES) 0.1 mg tablet Take 1 tablet (0.1 mg total) by mouth 2 (two) times a day 180 tablet 3 ??? dilTIAZem XR (CARDIZEM CD,DILACOR XR) 240 mg 24 hr capsule Take 1 capsule (240 mg total) by mouth daily. 90 capsule 3 Taking ??? dilTIAZem XR (DILT-XR) 240 mg 24 hr capsule Take 1 capsule (240 mg total) by mouth daily 90 capsule 3 ??? FLUoxetine (PROzac) 40 mg capsule Take 1 capsule (40 mg total) by mouth daily 90 capsule 3 ??? fluticasone propion-salmeterol (ADVAIR DISKUS) 250-50 mcg/dose diskus inhaler Inhale 1 puff 2 (two) times a day Rinse mouth with water after use to reduce aftertaste and incidence of candidiasis.Do not swallow. 3 each 3 ??? fluticasone propionate (FLONASE) 50 mcg/actuation nasal spray Administer 2 sprays into each nostril daily 16 mL 11 ??? HYDROcodone-acetaminophen (NORCO) 5-325 mg per tablet Take 1 tablet by mouth every 6 hours as needed for pain 120 tablet 0 ??? irbesartan (AVAPRO) 300 mg tablet 1 po q day 90 tablet 3 Taking ??? WIXELA INHUB 250-50 mcg/dose diskus inhaler INHALE 1 PUFF BY MOUTH TWICE DAILY 180 each 0 Taking Allergies Allergen Reactions ??? Quinapril Other (See comments) Reaction: swollen mouth, Social History Tobacco Use ??? Smoking status: Never Smoker ??? Smokeless tobacco: Never Used Substance Use Topics ??? Alcohol use: Not Currently Comment: no recently Family History Problem Relation Age of Onset ??? Dementia Mother Dementia; ??? Hypertension Mother Hypertension; ??? Depression Mother Depression; ??? Dementia Father Dementia; ??? Hypertension Father Hypertension; ??? Hypertension Brother Hypertension; Review of Systems Constitutional: Positive for activity change and fatigue. Negative for unexpected weight change. HENT: Negative. Eyes: Negative. Cardiovascular: Negative. Gastrointestinal: Negative. Endocrine: Negative. Genitourinary: Negative. Musculoskeletal: Positive for gait problem and joint swelling. Skin: Positive for color change. Psychiatric/Behavioral: Negative. Vitals: BP 135/56 Pulse 73 Temp 36.7 ??C (98.1 ??F) Resp 18 Ht 157.5 cm (5' 2 ) Wt 127.9 kg (282 lb 1 oz) SpO2 98% BMI 51.59 kg/m?? OBJECTIVE Physical Exam: Patient is alert and oriented to time and place and self. Patient has morbid obesity. Eyes: no jaundice. Lymphatics: no submandibular and no subclavicular lymphadenopathy. Lungs: CTA anteriorly. ENT:no mouth ulcers. GI: abdomen is soft, no distention, no tenderness, bowel sounds positive. Musculoskeletal: Bilateral lower extremity edema involving the entire leg and the feet. This appearance suggestive of chronic lymphedema. Skin: Redness or warmth noted in the left lower leg inferiorly. Also she had chronic thickening in the skin and the shins secondary to lymphedema. Psych: mood seems normal. No confusion. Lab/Radiology/Diagnostic Review: Labs and X rays reviewed. Recent Results (from the past 48 hour(s)) CBC with auto differential Collection Time: 04/17/19 3:41 AM Result Value Ref Range WBC 12.3 (H) 3.8 - 9.9 K/cumm Hgb 10.6 (L) 11.9 - 15.5 g/dL Hct 32.3 (L) 35.6 - 45.5 % Plt 202 150 - 400 K/cumm MPV 9.4 9.1 - 12.3 fL RBC 3.49 (L) 3.90 - 5.20 M/cumm MCV 92.6 81.3 - 96.4 fL MCH 30.4 27.1 - 33.3 pg MCHC 32.8 32.3 - 35.7 g/dL RDW CV 14.1 11.1 - 14.9 % RDW SD 48.0 35.7 - 48.1 fL NRBC abs 0.00 0.00 - 0.01 K/cumm Comprehensive metabolic panel Collection Time: 04/17/19 3:41 AM Result Value Ref Range Sodium 135 135 - 145 mmol/L Potassium, pl 4.1 3.3 - 4.9 mmol/L Chloride 98 97 - 110 mmol/L CO2 27 22 - 32 mmol/L Anion gap 10 2 - 15 mmol/L BUN 14 8 - 25 mg/dL Creatinine 0.59 (L) 0.60 - 1.10 mg/dL Glucose 101 70 - 199 mg/dL Calcium 9.5 8.5 - 10.3 mg/dL Bilirubin, total 0.5 0.1 - 1.2 mg/dL Protein, pl 6.7 6.5 - 8.5 g/dL Albumin 2.7 (L) 3.5 - 5.0 g/dL Alk phos 162 (H) 40 - 130 Units/L ALT 9 7 - 45 Units/L AST 17 10 - 45 Units/L Differential, auto Collection Time: 04/17/19 3:41 AM Result Value Ref Range Neutrophil abs 9.2 (H) 1.7 - 6.5 K/cumm Imm gran abs 0.1 0.0 - 0.1 K/cumm Lymphocyte abs 1.7 0.8 - 3.3 K/cumm Monocyte abs 1.3 (H) 0.2 - 0.8 K/cumm Eosinophil abs 0.0 0.0 - 0.5 K/cumm Basophil abs 0.0 0.0 - 0.1 K/cumm Neutrophil pct 75.1 % Imm gran pct 0.7 % Lymphocyte pct 13.5 % Monocyte pct 10.5 % Eosinophil pct 0.0 % Basophil pct 0.2 % eGFR Collection Time: 04/17/19 3:41 AM Result Value Ref Range GFR 92 mL/min/1.73 m2 Vitamin B12 Collection Time: 04/18/19 3:37 AM Result Value Ref Range Cyanocobalamin (Vit B12) 595 230 - 1,250 pg/mL CBC with auto differential Collection Time: 04/18/19 3:39 AM Result Value Ref Range WBC 12.1 (H) 3.8 - 9.9 K/cumm Hgb 11.4 (L) 11.9 - 15.5 g/dL Hct 33.7 (L) 35.6 - 45.5 % Plt 223 150 - 400 K/cumm MPV 8.8 (L) 9.1 - 12.3 fL RBC 3.71 (L) 3.90 - 5.20 M/cumm MCV 90.8 81.3 - 96.4 fL MCH 30.7 27.1 - 33.3 pg MCHC 33.8 32.3 - 35.7 g/dL RDW CV 13.8 11.1 - 14.9 % RDW SD 46.2 35.7 - 48.1 fL NRBC abs 0.00 0.00 - 0.01 K/cumm Comprehensive metabolic panel Collection Time: 04/18/19 3:39 AM Result Value Ref Range Sodium 134 (L) 135 - 145 mmol/L Potassium, pl 4.0 3.3 - 4.9 mmol/L Chloride 95 (L) 97 - 110 mmol/L CO2 29 22 - 32 mmol/L Anion gap 10 2 - 15 mmol/L BUN 16 8 - 25 mg/dL Creatinine 0.60 0.60 - 1.10 mg/dL Glucose 106 70 - 199 mg/dL Calcium 9.6 8.5 - 10.3 mg/dL Bilirubin, total 0.5 0.1 - 1.2 mg/dL Protein, pl 7.1 6.5 - 8.5 g/dL Albumin 2.7 (L) 3.5 - 5.0 g/dL Alk phos 160 (H) 40 - 130 Units/L ALT 14 7 - 45 Units/L AST 21 10 - 45 Units/L Differential, auto Collection Time: 04/18/19 3:39 AM Result Value Ref Range Neutrophil abs 8.1 (H) 1.7 - 6.5 K/cumm Imm gran abs 0.3 (H) 0.0 - 0.1 K/cumm Lymphocyte abs 2.0 0.8 - 3.3 K/cumm Monocyte abs 1.7 (H) 0.2 - 0.8 K/cumm Eosinophil abs 0.0 0.0 - 0.5 K/cumm Basophil abs 0.0 0.0 - 0.1 K/cumm Neutrophil pct 66.8 % Imm gran pct 2.4 % Lymphocyte pct 16.3 % Monocyte pct 14.1 % Eosinophil pct 0.0 % Basophil pct 0.4 % eGFR Collection Time: 04/18/19 3:39 AM Result Value Ref Range GFR 92 mL/min/1.73 m2 No results found. GI IMPRESSION: 1. Anemia. The anemia seems mild and chronic and combination of chronic disease and iron deficiency. 2. No overt GI bleed 3. Personal history of colon polyps. Last colonoscopy 6 years ago. 4. Cellulitis of the lower extremity 5. Poor functional status and chronic lymphedema of the lower legs. GI PLAN: 1. Patient will did need EGD and colonoscopy. This was discussed with the patient. 2. Currently the patient is ready to be discharged tomorrow for rehab place. Patient would like to go to a rehab place and she will call Dr. Tacho Prabhakar for follow-up colonoscopy as she did in the past. I did a for the patient to stay in the hospital and have her test at inpatient as we do the colon preparation tomorrow and the procedure to be performed the day after. The patient decay did that she is very tired at this time and not willing to go through the prep for now. She will for colonoscopy endoscopy as recommended as outpatient. 3. GI will appear to re-evaluate as needed Masha Kevin MD documented in this encounter Nursing Notes * Aide Marshall RN - 04/19/2019 10:29 AM CDT Spoke with [facility] at [facility] in [place] to give report. documented in this encounter ED Notes * Colt Ortiz MD - 04/14/2019 6:54 PM CDT HPI Chief Complaint Patient presents with ??? Fall 6:44 PM 04/14/2019 ?? Patient is a 73 y.o female nonsmoker w/ h/o recurrent major depressive disorder and iliotibial bandsyndrome for evaluation s/p fall which occurred [employer]. She reports that she has been becoming increasingly weak for years. Today, she was coming out of the bathroom to go to her bedroom when she fellbetween her bed and the wall, but could not get back up. She notes that she has recently developed decreased appetite and intermittent chills. She also reports constipation secondary to Hydrocodone use. She denies any other changes in bowel habits. No abdominal pain, nausea, or emesis. No fevers. No chest pain or SOB. No new pain. She is noted to have chronic cellulitis to the BLE. Per EMS, it is noted that she was brought to ED from her residence where she stayed on the second floor for a month. Patient History Patient Active Problem List Diagnosis Date Noted ??? Morbid obesity (CMS/HCC) 12/07/2018 ??? Recurrent major depressive disorder, in partial remission (CMS/HCC) 10/24/2018 ??? Colon cancer screening 06/28/2018 ??? Simple chronic bronchitis (CMS/HCC) 2018 ??? Mild persistent asthma without complication 03/14/2018 ??? Chronic stasis dermatitis 03/15/2017 ??? Chronic pain syndrome 03/15/2017 ??? Encounter for Medicare annual wellness exam 03/15/2017 ??? Vitamin D deficiency 03/15/2017 ??? Benign hypertension 08/17/2016 Class: Chronic ??? Asthma 12/15/2013 Class: Chronic Past Medical History: Diagnosis Date ??? 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 HX 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-ORTHOPEDIST ??? HX OTHER MEDICAL IGT ??? Moderate episode of recurrent major depressive disorder (CMS/HCC) 12/05/2017 Past Surgical History: Procedure Laterality Date ??? RHINOPLASTY RHINOPLASTY Family History Problem Relation Age of Onset ??? Dementia Mother Dementia; ??? Hypertension Mother Hypertension; ??? Depression Mother Depression; ??? Dementia Father Dementia; ??? Hypertension Father Hypertension; ??? Hypertension Brother Hypertension; Social History Tobacco Use ??? Smoking status: Never Smoker ??? Smokeless tobacco: Never Used Substance Use Topics ??? Alcohol use: Yes Comment: no recently ??? Drug use: No Social History Social History Narrative ??? Not on file Review of Systems Review of Systems Constitutional: Positive for appetite change (+Decreased appetite) and chills. Negative for fever. HENT: Negative for congestion. Eyes: Negative for redness. Respiratory: Negative for shortness of breath. Cardiovascular: Negative for chest pain. Gastrointestinal: Positive for constipation (secondary to narcotic use). Negative for abdominal pain and diarrhea. Genitourinary: Negative for difficulty urinating. Musculoskeletal: Negative for joint swelling. Skin: Negative for rash. Neurological: Positive for weakness. Negative for headaches. Psychiatric/Behavioral: Negative for agitation. Physical Exam ED Triage Vitals [04/14/19 1856] Temp Pulse Resp BP SpO2 37.9 ??C (100.2 ??F) 75 15 150/49 97 % Temp src Heart Rate Source Patient Position BP Location FiO2 (%) Temporal -- -- -- -- Physical Exam Constitutional: She appears well-developed and well-nourished. No distress. HENT: Head: Normocephalic and atraumatic. Right Ear: No drainage. Left Ear: No drainage. Nose: No rhinorrhea. Mouth/Throat: Oropharynx is clear and moist. Eyes: Conjunctivae and EOM are normal. Neck: Normal range of motion. Cardiovascular: Normal rate, regular rhythm and intact distal pulses. Murmur heard. Systolic murmur is present with a grade of 3/6. Pulmonary/Chest: Effort normal and breath sounds normal. No respiratory distress. She has no wheezes. She has no rales. Abdominal: Soft. Bowel sounds are normal. She exhibits no distension. There is no tenderness. Thereis no guarding. Musculoskeletal: She exhibits edema (Profound bilateral lymphedema bilaterally. Nonpitting.). Patient able to move all 4 extremities Neurological: She is alert. No sensory deficit (To light touch). Face symmetrical. Skin: Skin is warm and dry. Capillary refill takes less than 2 seconds. Rash (Chronic stasis dermatitis like changes noted to both legs bilaterally. Left leg has increased erythema with tenderness and swelling as well as calor which is concerning for cellulitis.) noted. Psychiatric: She has a normal mood and affect. Her behavior is normal. Nursing note and vitals reviewed. Procedures MDM MDM Number of Diagnoses or Management Options Diagnosis management comments: 73-year-old female with multiple comorbidities that presents today with fall, cellulitis and failure to thrive. Will order basic labs on her due to her feeling weak forpossible signs of infection in addition to her lower leg cellulitis. Also after viewing pictures ofher home do not feel this is safe environment for her to return to. Amount and/or Complexity of Data Reviewed Clinical lab tests: ordered and reviewed Tests in the radiology section of CPT??: ordered and reviewed Labs Reviewed CBC WITH AUTO DIFFERENTIAL - Abnormal Result Value WBC 15.5 (*) Hgb 12.5 Hct 37.2 Plt 211 MPV 8.9 (*) RBC 4.05 MCV 91.9 MCH 30.9 MCHC 33.6 RDW CV 14.5 RDW SD 49.1 (*) NRBC abs 0.00 COMPREHENSIVE METABOLIC PANEL - Abnormal Sodium 133 (*) Potassium, pl 4.3 Chloride 98 CO2 25 Anion gap 10 BUN 23 Creatinine 0.64 Glucose 98 Calcium 9.8 Bilirubin, total 0.9 Protein, pl 6.9 Albumin 3.4 (*) Alk phos 126 ALT 21 AST 19 PRO B-TYPE NATRIURETIC PEPTIDE - Abnormal NT-proBNP 1,697 (*) PROTIME-INR - Abnormal PT 14.9 (*) INR 1.31 (*) DIFFERENTIAL AUTO - Abnormal Neutrophil abs 14.0 (*) Imm gran abs 0.0 Lymphocyte abs 0.9 Monocyte abs 0.5 Eosinophil abs 0.0 Basophil abs 0.0 Neutrophil pct 90.3 Imm gran pct 0.2 Lymphocyte pct 5.7 Monocyte pct 3.5 Eosinophil pct 0.0 Basophil pct 0.3 URINALYSIS AND REFLEX TO MICROSCOPIC AND CULTURE BLOOD CULTURE BLOOD CULTURE BLOOD GAS, VENOUS pH, Venous 7.39 PCO2, Venous 44 PO2, Venous 39 HCO3 Venous, Calculated 26 BE, venous 1 SEPSIS LACTATE WITH REFLEX Sepsis Lactate 1.3 TYPE AND SCREEN ABO/RH ABO/RH. O Positive Narrative: Has the patient had Daratumumab (Darzalex) in the past 6 months?->Unknown ANTIBODY SCREEN Charisma, indirect, Gel Interpretation Negative ABSC Narrative: Has the patient had Daratumumab (Darzalex) in the past 6 months?->Unknown EGFR GFR 90 B ABO / RH CONFIRMATION TESTING XR Chest 1 Vw Portable Final Result MILD CARDIOMEGALY WITH NO ACTIVE DISEASE Electronically signed by: Pawan Harrison M.D. BP 150/49 Pulse 75 Temp 37.9 ??C (100.2 ??F) (Temporal) Resp 15 Ht 157.5 cm (5' 2 ) Wt 134.4 kg (296 lb 3.2 oz) SpO2 97% BMI 54.18 kg/m?? ED Course as of Apr 14 2116 Time: 04/14 1919 Comment: Hypertension: The patient has been informed that they may have Hypertension based on a blood pressure reading in the Emergency Department. I recommend that the patient call the primary care provider listed on their discharge instructions or a physician of their choice this week to arrange ellis burden up for further evaluation of Hypertension. By: Osorio Archer Time: 04/14 2038 Value: WBC(!): 15.5 Comment: (Reviewed) By: Colt Ortiz MD Time: 04/14 2039 Value: Sodium(!): 133 Comment: (Reviewed) By: Colt Ortiz MD Time: 04/14 2039 Value: Albumin(!): 3.4 Comment: (Reviewed) By: Colt Ortiz MD Time: 04/14 2039 Value: NT-proBNP(!): 1,697 Comment: (Reviewed) By: Colt Ortiz MD Time: 04/14 2053 Comment: Discussed patient's case with Dr. Florez, hospitalist, who accepts patient for admission.She recommends addition of Lasix. By: Osorio Archer Time: 04/14 2115 Comment: Patient admitted to the hospital stable condition. By: Colt Ortiz MD Cellulitis of left lower extremity Failure to thrive in adult Elevated brain natriuretic peptide (BNP) level 9:15 PM: This note is prepared by Osorio Archer, acting as a scribe for Colt Ortiz MD. I electronically signed this note at 9:15 PM on 04/14/2019. 9:15 PM: This note is prepared by Mag Guerrero, acting as a scribe for Colt Ortiz MD. I electronically signed this note at 9:15 PM on 04/14/2019. I, Colt Ortiz MD, have personally performed the services described in the documentation , reviewed the documentation, as recorded by the scribe in my presence, and it accurately and completelyrecords my words and actions. Any errors in translation of speech to the EMR are related to software and not the clinician. Colt Ortiz MD 04/14/192115 * Wandy Spencer, BREA - 04/14/2019 6:53 PM CDT Patient presents to the Ed via Ems after having a fall at home. Patient called EMS for a lift assist because she was stuck between her bed and the wall. Patient states increase in weakness over the past month worsening this week. * Joselyn Smith RN - 04/14/2019 6:51 PM CDT Bed: ED02 Expected date: Expected time: Means of arrival: Comments: [id number] Joselyn Smith RN 04/14/19 3071 documented in this encounter Miscellaneous Notes * Plan of Care - Eunice Ashley BSW - 04/19/2019 11:00 AM CDT Discharge summary- Pt was dc today and admitted to [facility] in a skilled bed. * Plan of Care - Aide Marshall RN - 04/19/2019 10:55 AM CDT Problem: Health Behavior: Goal: Understanding of discharge needs will improve Outcome: Adequate for Discharge Problem: Lack of Knowledge: Goal: Verbalization of understanding the information provided will improve Outcome: Adequate for Discharge Problem: Fluid Volume: Goal: Ability to maintain a balanced intake and output will improve Outcome: Adequate for Discharge Problem: Nutritional: Goal: Ability to attain and maintain optimal nutritional status will improve Outcome: Adequate for Discharge Problem: Physical Regulation: Goal: Ability to maintain vital signs within normal range will improve Outcome: Adequate for Discharge Goal: Ability to avoid or minimize complications of infection will improve Outcome: Adequate for Discharge Problem: Sensory: Goal: Pain level will decrease Outcome: Adequate for Discharge Problem: Skin Integrity: Goal: Skin integrity will improve Outcome: Adequate for Discharge Problem: Activity: Goal: Mobility will improve Outcome: Adequate for Discharge Problem: Lack of Knowledge: Goal: Understanding of ways to prevent future skin breakdown will improve Outcome: Adequate for Discharge Goal: Ability to identify appropriate dietary choices will improve Outcome: Adequate for Discharge Problem: Nutritional: Goal: Dietary intake will improve Outcome: Adequate for Discharge Goal: Ability to maintain a balanced intake and output will improve Outcome: Adequate for Discharge Problem: Skin Integrity: Goal: Risk for impaired skin integrity will decrease Outcome: Adequate for Discharge Goal: Ability to demonstrate warm and dry skin will improve Outcome: Adequate for Discharge Goal: Circulation will improve to fullest extent possible Outcome: Adequate for Discharge Problem: Lack of Knowledge: Goal: Ability to state ways to decrease the risk of falls will improve Outcome: Adequate for Discharge Problem: Safety: Goal: Will remain free from falls Outcome: Adequate for Discharge Goal: Will remain free from injury from falls Outcome: Adequate for Discharge Goal: Will remain free from falls and injury in home environment Outcome: Adequate for Discharge Goals: Clinical Goals for the Shift: No falls/injuries. Stable VS/labs. Discharge today. Summary: A/Ox4. Transfer paperwork signed and report called to [facility]. Flu shot given. Patient isbeing transferred by ambulance in stable condition. Questions answered. * Plan of Care - Brenda Valle RN - 04/19/2019 4:02 AM CDT Problem: Health Behavior: Goal: Understanding of discharge needs will improve Outcome: Progressing Problem: Lack of Knowledge: Goal: Verbalization of understanding the information provided will improve Outcome: Progressing Problem: Fluid Volume: Goal: Ability to maintain a balanced intake and output will improve Outcome: Progressing Problem: Nutritional: Goal: Ability to attain and maintain optimal nutritional status will improve Outcome: Progressing Problem: Physical Regulation: Goal: Ability to maintain vital signs within normal range will improve Outcome: Progressing Goal: Ability to avoid or minimize complications of infection will improve Outcome: Progressing Problem: Sensory: Goal: Pain level will decrease Outcome: Progressing Problem: Skin Integrity: Goal: Skin integrity will improve Outcome: Progressing Problem: Activity: Goal: [...] Progressing Goals: Clinical Goals for the Shift: free from injury, adequate rest, adequate pain control, vitals, labs within normal limits Summary: Pt remains A&Ox4, sleeping well throughout night. Scheduled medications given as ordered. Prn pain medication x 1 for headache. * Plan of Care - Eunice Ashley BSW - 04/18/2019 1:50 PM CDT Rima from [facility] notified SW that she obtained authorization from [facility]/ [employer] and can accept pt in a skilled bed. SW notified pt and of this information and they were pleased. Notified Rima from [facility] that pt might dc this evening or tomorrow. SW will follow case. * Plan of Care - Dangelo Aceves PTA - 04/18/2019 10:08 AM CDT Patient required mod assist to EOB. Required mod assist for sit to stand and 3 small steps to commode with w/w. Patient very slow moving and unsteady. Has difficulty arising from chair. Recommend SNF * Plan of Care - Rohini Mcdonald OT - 04/18/2019 9:20 AM CDT Problem: OT Misc Goal: STG - Misc 1 Description Pt. to perform B UE strengthening exercises I'ly for HEP to increase INDEP with self care tasks/functional mobility Outcome: Progressing Note: Patient completed B UE yellow theraband exercises x10-15 with MIN A/v/c's * Plan of Care - Brenda Valle RN - 04/18/2019 4:48 AM CDT Problem: Health Behavior: Goal: Understanding of discharge needs will improve Outcome: Progressing Problem: Lack of Knowledge: Goal: Verbalization of understanding the information provided will improve Outcome: Progressing Problem: Fluid Volume: Goal: Ability to maintain a balanced intake and output will improve Outcome: Progressing Problem: Nutritional: Goal: Ability to attain and maintain optimal nutritional status will improve Outcome: Progressing Problem: Physical Regulation: Goal: Ability to maintain vital signs within normal range will improve Outcome: Progressing Goal: Ability to avoid or minimize complications of infection will improve Outcome: Progressing Problem: Sensory: Goal: Pain level will decrease Outcome: Progressing Problem: Skin Integrity: Goal: Skin integrity will improve Outcome: Progressing Problem: Activity: Goal: [...] Progressing Goals: Clinical Goals for the Shift: free from injury, adequate rest, adequate pain control, vitals, labs within normal limits Summary: Pt remains A&Ox4, Purewick changed this shift; however, pt has been incontinent x 1. Scheduled medications given as ordered. Pt is able to turn on own, has refused any help to turn during this shift. Legs remain elevated. Pt medicated for pain x 1. * Plan of Care - Pavithra Quach RN - 04/17/2019 6:45 PM CDT Goals: Clinical Goals for the Shift: Remain free from falls and injury. VSS. Meds given as ordered. Summary: Pt was free from falls and injury. VSS. Prn pain meds given x1. Continue to assess. * Plan of Care - Eunice Ashley BSW - 04/17/2019 1:55 PM CDT SW met with pt and this AM to discuss dc plans. They voiced interest in pt being placed at [facility]. Referral sent via [facility]. SW also had Parisa from [facility] complete Obra screening today. Later Rima from [facility] notified SW that she could accept pt in a skilled bed once she obtained authorization from insurance. SW contacted [employer] friend at the end of the day and she had not heard back from insurance. SW notified pt, and charge nurse Adriana of this information. SW will follow case. * ECIN Note - Eunice Ashley BSW - 04/17/2019 12:30 PM CDT Patient Information: PT Eval and Treat Last 72 Hours PT Evaluation Row Name 04/17/19 8778 Chart Reviewed Yes -JL Session Type Evaluation -JL Subjective Agreeable to Therapy -JL Family/Caregiver Present No -JL Physical Therapy-Patient Goal go to rehab somewhere for lymphedema tx -JL Precautions Fall risk -JL Type of Home House -JL Home Layout Two level main level living -JL Home Access Ramped entrance -JL Home Mobility Equipment 4-Wheeled walker;Single point cane -JL Level of Bland Needs assistance with ADLs;Needs assistance with ambulation;Needs assistance with homemaking -JL Lives With Spouse -JL Receives Help From Spouse/Significant other -JL Pain Assessment No/denies pain -JL Overall Cognitive Status WFL -JL Orientation Oriented X4 (person, place, time, situation) -JL Balance Yes -JL Static Sitting-Balance Support Bilateral upper extremity supported;Feet supported -JL Static Sitting-Level of Assistance Close supervision -JL Static Standing-Balance Support Bilateral upper extremity supported -JL Static Standing-Level of Assistance Moderate assistance -JL Bed Mobility From 1 Supine -JL Bed Mobility Type 1 To -JL Bed Mobility to 1 Edge of bed -JL Level of Assistance 1 Moderate assistance;Maximum assistance -JL Bed Mobility Comments 1 -- need to deflate seat portion of bed -JL Transfer From 1 Bed seat portion deflated -JL Transfer Type 1 To -JL Transfer to 1 Stand -JL Technique 1 Sit to stand;Stand to sit -JL Transfer Device 1 Wheeled walker -JL Transfer Level of Assistance 1 Moderate assistance;Maximum assistance -JL Distance (ft) 1 3 steps -JL Surface 1 Level tile -JL Device 1 Wheeled walker -JL Assistance 1 Moderate assistance -JL Gait: Requires assist with 1 Maintaining balance -JL Gait: Requires verbal cues to 1 Use assistive device safely -JL Quality of Gait 1 dec; step length, propulsion, foot clearance bilat -JL Ambulation Comments 1 fall risk -JL RLE Assessment -- significant lymphedema, dec arom and strength -JL LLE Assessment -- significant lymphedema, dec arom and strength -JL Potential/Prognosis Good -JL Problem List Decreased strength;Decreased range of motion;Decreased mobility;Obesity significant bilat LE edema -JL Plan Plan of care initiated;If this is the last note, consider this the discharge summary -JL PT Recommendation/Plan Intermediate Facility (Significant) some sort of facility for lymphedema treatment -JL PT Frequency 3-5x/wk;Other (comment) prn sat -JL Treatment/Interventions Bed mobility;Functional transfer training;Gait training -JL PT Equipment Recommended None (Significant) -JL PT Evaluation Complete Yes -JL User Corado (r) = Recorded By, (t) = Taken By, (c) = Cosigned By Initials Name Effective Dates JL Breanna Smith, PT 03/13/19 - PT TREATMENT (last 168 hours) PT Treatment No documentation. PT Notes (Notes from 04/15/19 through 04/17/19) 04/17/2019 12:25 PM Progress Notes signed by Breanna Smith, PT * ECIN Note - Eunice Ashley BSW - 04/17/2019 11:09 AM CDT Images from the original note were not included. Patient Information: Comprehensive Nursing Documentation Attending Provider: Breanna Boston MD Allergies: Quinapril Isolation: None Infection: None Code Status: LIMITED Ht: 157.5 cm (5' 2 ) Wt: 176.9 kg (390 lb) Admission Cmt: None Principal Problem: None Elopement Risk Date/Time Elopement Risk User 04/14/191 No risk NMW Intake/Output 04/14/19 0700 - 04/15/19 0659 04/15/19 0700 - 04/16/19 0659 04/16/19 07 - 04/17/19 0659 04/17/19 07 - 04/18/19 0659 Total Total 6852-8480 1009-7717 6422-4592 Total 7534-7466 8678-9664 8853-3900 Total Intake (ml) 120 1090 720 218 714 5258 520 -- -- 520 Output (ml) 300 1675 1000 322 623 6587 -- -- -- -- Net (ml) -180 -585 -280 -310 350 -240 520 -- -- 520 Last Weight 176.9 kg (390 lb) -- -- -- -- -- -- -- -- -- Patient Lines/Drains/Airways Status Active Airway / Central venous catheter / Drain / Epidural cathether / Intraosseous line / Peripherally inserted central catheter / Peripheral intravenous line / Arterial line Name: Placement date: Placement time: Site: Days: External Urinary Catheter 04/17/19 -- less than 1 Peripheral IV 04/14/19 20 G Right Hand 04/14/19 2002 Hand 2 Patient Lines/Drains/Airways Status Active Wound / Pressure ulcer / [place] / Negative Pressure Wound None [place] Fall Risk Most Recent Value History of Falling 25 ............filed at 04/17/2019 0800 Secondary Diagnosis 15 ............filed at 04/17/2019 0800 Ambulatory Aids 15 ............filed at 04/17/2019 0800 Intravenous Therapy/Heparin/Saline Lock 20 ............filed at 04/17/2019 0800 Gait/Transferring 10 ............filed at 04/17/2019 0800 Mental Status 0 ............filed at 04/17/2019 0800 [place] Fall Risk Score 85 ............filed at 04/17/2019 0800 Vital Signs 04/16 07 - 04/17 0659 04/17 07 - 04/17 1109 Most Recent Temp (??C) 36.2 - 38.2 36.8 36.8 (98.3) Pulse 60 - 76 71 - 72 71 Resp 18 - 24 18 18 SpO2 (%) 94 - 99 93 - 100 100 BP 136/40 - 147/49 145/64 145/64 Default Flowsheet Data (most recent) Endurance Tests No documentation. Nursing Nutrition Feeding Level of Assistance 04/17 08 Able to feed self 04/17 06 Able to feed self 04/16 2100 Able to feed self 04/16 08 Needs set up;Able to feed self 04/16 08 Able to feed self;Needs set up 04/15 1945 Able to feed self 04/15 0845 Able to feed self 04/14 2300 Able to feed self Nursing Mobility Activity 04/17 0800 Resting in bed 04/17 0600 Resting in bed 04/16 2100 Resting in bed 04/16 2000 Resting in bed 04/16 08 Resting in bed 04/15 1945 Resting in bed 04/15 0845 Resting in bed 04/14 2300 Resting in bed Level of Assistance 04/17 0800 Moderate assist, patient does 50-74% 04/17 06 Moderate assist, patient does 50-74% 04/16 2100 Moderate assist, patient does 50-74% 04/16 2000 Moderate assist, patient does 50-74% 04/16 800 Moderate assist, patient does 50-74% 04/15 1945 Maximum assist, patient does 25-49% 04/15 845 Maximum assist, patient does 25-49% 04/14 2300 Maximum assist, patient does 25-49% Assistive Device 04/17 0800 Walker;Mechanical lift 04/17 0600 Cane;Walker 04/16 2100 Cane;Walker 04/16 2000 Cane;Walker 04/15 1945 Cane;Walker 04/15 0845 Cane;Walker 04/14 2300 Cane;Walker Repositioned 04/17 0800 Left side 04/17 0600 Supine 04/16 2100 Supine 04/16 2000 Supine 04/16 0800 Supine 04/16 0530 Right side 04/16 0300 Supine;Refused by patient 04/16 0000 Supine;Refused by patient 04/15 1945 Supine 04/15 0845 Right side;Left side;Supine;Turns self Positioning Frequency 04/17 0800 Every 2 hours 04/17 0600 Every 2 hours 04/16 2100 Every 2 hours 04/16 2000 Every 2 hours 04/16 0800 Every 2 hours 04/16 0530 Every 2 hours 04/16 0300 Every 2 hours 04/16 0000 Every 2 hours 04/15 1945 Able to turn self 04/15 0845 Able to turn self 04/14 2300 Able to turn self Head of Bed Elevated 04/17 0800 Self regulated 04/17 0600 Self regulated 04/16 2100 Self regulated 04/16 2000 HOB 45 04/16 0800 HOB 30 04/16 0530 HOB 30 04/16 0300 HOB 30 04/16 0000 HOB 30 04/15 1945 Self regulated 04/14 2300 Self regulated Heels/Feet 04/17 0800 Heels elevated off bed 04/17 0600 Heels elevated off bed 04/16 2100 Heels elevated off bed 04/16 2000 Heels elevated off bed 04/16 0800 Heels elevated off bed 04/16 0530 Heels elevated off bed 04/16 0300 Heels elevated off bed 04/16 0000 Heels elevated off bed 04/15 1945 Heels elevated off bed 04/14 2300 Heels elevated off bed Range of Motion 04/16 0800 Active;All extremities 04/15 194 Active;All extremities 04/15 0845 Active;All extremities 04/14 2300 Active;All extremities Default Flowsheet Data (last 24 hours) Sitter Documentation Row Name 04/17/19 0800 04/16/191999 Sitter Documentation Sitter Not indicated Not indicated , Meds and Admin Active Only All Meds/Most Recent Administrations HYDROcodone-acetaminophen (NORCO) 5-325 mg per tablet 1 tablet [[id number]] Ordering Provider: Colt Ortiz MD Status: Completed (Past End Date/Time) Ordered On: 04/14/192021 Starts/Ends: 04/14/192022 - 04/14/192032 Dose (Remaining/Total): 1 tablet (0/1) Route: oral Frequency: Once Rate/Duration: -- / -- Timestamps Action Dose Route Other Information 04/14/192032 Given 1 tablet oral Performed by: Wandy Spencer RN morphine injection 2 mg [[id number]] Ordering Provider: Colt Ortiz MD Status: Dispensed Ordered On: 04/14/192243 Start: 04/14/192243 Dose (Remaining/Total): 2 mg (--/--) Route: intravenous Frequency: Every 3 hours PRN Rate/Duration: -- / 4 Minutes Admin Instructions: May repeat in 30 minutes if pain is uncontrolled or increasing. Max 2 doses within 1 dosing interval. Administer via slow IV push over 4 to 5 minutes (rapid administration may result in chest wall rigidity) Line Med Link Info Comment Peripheral IV 04/14/19 20 G Right Hand 04/15/19442 by Viridiana Acuña RN -- Timestamps Action Dose / Duration Route Other Information 04/17/19326 Given 2 mg 4 Minutes intravenous Performed by: Melodie Alexis RN ondansetron ODT (ZOFRAN-ODT) disintegrating tablet 4 mg [[id number]] Ordering Provider: Colt Ortiz MD Status: Verified Ordered On: 04/14/192243 Start: 04/14/192243 Dose (Remaining/Total): 4 mg (--/--) Route: oral Frequency: Every 6 hours PRN Rate/Duration: -- / -- (No admins recorded for this medication) ondansetron (ZOFRAN) injection 4 mg [[id number]] Ordering Provider: Colt Ortiz MD Status: Dispensed Ordered On: 04/14/192243 Start: 04/14/192243 Dose (Remaining/Total): 4 mg (--/--) Route: intravenous Frequency: Every 6 hours PRN Rate/Duration: -- / 2 Minutes Admin Instructions: Give IV push over at least 2 minutes. Line Med Link Info Comment Peripheral IV 04/14/19 20 G Right Hand 04/15/19908 by Gloria Lipscomb RN -- Timestamps Action Dose / Duration Route Other Information 04/15/19908 Given 4 mg 2 Minutes intravenous Performed by: Gloria Lipscomb RN senna-docusate (PERICOLACE) 8.6-50 mg per tablet 1 tablet [[id number]] Ordering Provider: Colt Ortiz MD Status: Verified Ordered On: 04/14/192243 Start: 04/14/192243 Dose (Remaining/Total): 1 tablet (--/--) Route: oral Frequency: 2 times daily PRN Rate/Duration: -- / -- (No admins recorded for this medication) furosemide (LASIX) 10 mg/mL injection 20 mg [[id number]] Ordering Provider: Tony Griffiths MD Status: Dispensed Ordered On: 04/14/192215 Start: 04/15/19 0600 Dose (Remaining/Total): 20 mg (--/--) Route: intravenous Frequency: Every 12 hours Rate/Duration: -- / 1 Minutes Admin Instructions: Room temperature only Line Med Link Info Comment Peripheral IV 04/14/19 20 G Right Hand 04/15/19 0509 by Viridiana Acuña RN -- Timestamps Action Dose / Duration Route Other Information 04/17/19 0519 Given 20 mg 1 Minutes intravenous Performed by: Melodie Alexis RN ibuprofen (ADVIL,MOTRIN) tablet 400 mg [[id number]] Ordering Provider: Kathia Florez MD Status: Dispensed Ordered On: 04/14/192350 Start: 04/14/192349 Dose (Remaining/Total): 400 mg (--/--) Route: oral Frequency: Every 6 hours PRN Rate/Duration: -- / -- Timestamps Action Dose Route Other Information 04/14/192355 Given 400 mg oral Performed by: Viridiana Acuña RN senna-docusate (PERICOLACE) 8.6-50 mg per tablet 1 tablet [[id number]] Ordering Provider: Tony Griffiths MD Status: Dispensed Ordered On: 04/15/19 1240 Start: 04/15/19 1400 Dose (Remaining/Total): 1 tablet (--/--) Route: oral Frequency: 2 times daily Rate/Duration: -- / -- Timestamps Action Dose Route Other Information 04/17/19 0847 Given 1 tablet oral Performed by: Pavithra Quach RN polyethylene glycol (MIRALAX) packet 17 g [[id number]] Ordering Provider: Tony Griffiths MD Status: Dispensed Ordered On: 04/15/191239 Start: 04/15/19 1400 Dose (Remaining/Total): 17 g (--/--) Route: oral Frequency: Daily Rate/Duration: -- / -- Timestamps Action Dose Route Other Information 04/16/19 0920 Given 17 g oral Performed by: Pavithra Quach RN chlorthalidone tablet 25 mg [[id number]] Ordering Provider: Tony Griffiths MD Status: Dispensed Ordered On: 04/15/191241 Start: 04/15/19 1400 Dose (Remaining/Total): 25 mg (--/--) Route: oral Frequency: Daily Rate/Duration: -- / -- Timestamps Action Dose Route Other Information 04/17/19 0847 Given 25 mg oral Performed by: Pavithra Quach RN cloNIDine (CATAPRES) tablet 0.1 mg [[id number]] Ordering Provider: Tony Griffiths MD Status: Dispensed Ordered On: 04/15/191241 Start: 04/15/19 1400 Dose (Remaining/Total): 0.1 mg (--/--) Route: oral Frequency: 2 times daily Rate/Duration: -- / -- Timestamps Action Dose Route Other Information 04/17/19 0848 Given 0.1 mg oral Performed by: Pavithra Quach RN dilTIAZem XR (CARDIZEM CD,DILACOR XR) 24 hour capsule 240 mg [[id number]] Ordering Provider: Tony Griffiths MD Status: Dispensed Ordered On: 04/15/191241 Start: 04/15/19 1400 Dose (Remaining/Total): 240 mg (--/--) Route: oral Frequency: Daily Rate/Duration: -- / -- Admin Instructions: Do not crush, chew, cut, dissolve, open or otherwise manipulate tablet/capsule. Timestamps Action Dose Route Other Information 04/17/19 0847 Given 240 mg oral Performed by: Pavithra Quach RN FLUoxetine (PROzac) capsule 40 mg [[id number]] Ordering Provider: Tony Griffiths MD Status: Dispensed Ordered On: 04/15/19 1242 Start: 04/15/19 1400 Dose (Remaining/Total): 40 mg (--/--) Route: oral Frequency: Daily Rate/Duration: -- / -- Timestamps Action Dose Route Other Information 04/17/19 0846 Given 40 mg oral Performed by: Pavithra Quach RN budesonide-formoterol (SYMBICORT) 160-4.5 mcg/actuation inhaler 2 puff [[id number]] Ordering Provider: Tony Griffiths MD Status: Verified Ordered On: 04/15/19 1249 Start: 04/15/19 2000 Dose (Remaining/Total): 2 puff (--/--) Route: inhalation Frequency: 2 times daily (correspondence transcriber) Rate/Duration: -- / -- Admin Instructions: This therapy was substituted forAdvair 250-50 mcg* per protocol. Rinse mouth with water after use. Do not swallow. Timestamps Action Dose Route Other Information 04/17/19 0751 Given 2 puff inhalation Performed by: Kady Barrios RRT buPROPion SR (WELLBUTRIN SR) 12 hour tablet 150 mg [[id number]] Ordering Provider: Tony Griffiths MD Status: Dispensed Ordered On: 04/15/19 1256 Start: 04/15/19 1450 Dose (Remaining/Total): 150 mg (--/--) Route: oral Frequency: 2 times daily Rate/Duration: -- / -- Admin Instructions: This therapy was substituted for Zyban 150 mg po q12 hrs per protocol. Do notcrush, chew, cut, dissolve, open or otherwise manipulate tablet/capsule. Timestamps Action Dose Route Other Information 04/17/19 0846 Given 150 mg oral Performed by: Pavithra Quach RN enoxaparin (LOVENOX) syringe 40 mg [[id number]] Ordering Provider: Tony Griffiths MD Status: Dispensed Ordered On: 04/15/19 1444 Start: 04/15/19 2100 Dose (Remaining/Total): 40 mg (--/--) Route: subcutaneous Frequency: Every 12 hours scheduled Rate/Duration: -- / -- Admin Instructions: Dose of enoxaparin adjusted per protocol for bariatric VTE prophylaxis, CrCl > 30 ml/min, BMI>40, and weight >100 kg (CrCl=51 ml/min, BMI=71.33 kg/m2, kj=004.9 Kg)Estimated Creatinine Clearance: 51 mL/min (by C-G formula based on SCr of 0.71 mg/dL). Timestamps Action Dose Route / Site Other Information 04/17/19847 Given 40 mg subcutaneous Left Lower Abdomen Performed by: Pavithra Quach RN albuterol (PROVENTIL,VENTOLIN) 2.5 mg /3 mL (0.083 %) nebulizer solution 2.5 mg [[id number]] Ordering Provider: Breanna Boston MD Status: Verified Ordered On: 04/16/191525 Start: 04/16/191524 Dose (Remaining/Total): 2.5 mg (--/--) Route: nebulization Frequency: Every 6 hours PRN (correspondence transcriber) Rate/Duration: -- / -- Timestamps Action Dose Route Other Information 04/16/191527 Given 2.5 mg nebulization Performed by: Anitha Lynn RRT amoxicillin-clavulanate (AUGMENTIN) 875-125 mg per tablet 875 mg of amoxicillin [[id number]] Ordering Provider: Breanna Boston MD Status: Dispensed Ordered On: 04/17/19819 Start: 04/17/19899 Dose (Remaining/Total): 875 mg of amoxicillin (--/--) Route: oral Frequency: 2 times daily Rate/Duration: -- / -- (No admins recorded for this medication) Bifidobacterium infantis (ALIGN) capsule 4 mg [[id number]] Ordering Provider: Breanna Boston MD Status: Dispensed Ordered On: 04/17/19819 Start: 04/17/19899 Dose (Remaining/Total): 4 mg (--/--) Route: oral Frequency: Daily Rate/Duration: -- / -- (No admins recorded for this medication) , OT Eval and Treat Last 72 Hours OT Evaluation Row Name 04/16/19 0915 Chart Reviewed Yes -AV Session Type Evaluation -AV OT Received On 04/16/19 -AV Subjective Agreeable to Therapy -AV Family/Caregiver Present No -AV Occupational Therapy-Patient Goal unsure at this time -AV Precautions Fall risk -AV Type of Home House -AV Home Mobility Equipment 4-Wheeled walker;Single point cane -AV Additional Comments uses no devices, furniture walks -AV Level of Bland Needs assistance with ADLs;Needs assistance with homemaking -AV Lives With Spouse -AV Receives Help From Spouse/Significant other -AV Driving Yes not recently -AV ADL Assistance Needs assistance -AV Bathing Moderate -AV Dressing Moderate -AV Grooming Minimal -AV Toileting Independent -AV Feeding Independent -AV Instrumental ADL (IADL) Assistance Needs assistance -AV Meal Prep Total -AV Laundry Total -AV Cleaning Total -AV Prior Function Comments patient is not a very reliable source of PLOF. Difficulty to grasp what ADLs she was completing and what she wasn't -AV Grooming: Where assessed Chair -AV Grooming: Level of assistance Stand by -AV Grooming: Assistance with Wash/dry face -AV LE Dressing: Level of assistance Total -AV LE Dressing: Assistance with Don/doff L sock;Don/doff R sock -AV Pain Score 1 -AV Pain Location Leg -AV Pain Orientation Left -AV Overall Cognitive Status WFL -AV Orientation Oriented X4 (person, place, time, situation) -AV Static Sitting-Balance Support Bilateral upper extremity supported -AV Static Sitting-Level of Assistance Close supervision -AV Dynamic Sitting-Balance Support No upper extremity supported -AV Dynamic Sitting-Balance Forward lean -AV Dynamic Sitting-Level of Assistance Contact guard -AV Static Standing-Balance Support No upper extremity supported patient is unable to stand upright -AV Static Standing-Level of Assistance Minimum assistance stand pivots -AV Bed Mobility From 1 Supine -AV Bed Mobility Type 1 To -AV Bed Mobility to 1 Edge of bed -AV Level of Assistance 1 Moderate assistance -AV Bed Mobility Comments 1 with LE -AV Transfer From 1 Bed -AV Transfer Type 1 To -AV Transfer to 1 Chair with arms -AV Technique 1 Stand pivot -AV Transfer Device 1 No device -AV Transfer Level of Assistance 1 Minimum assistance -AV RUE Assessment WFL weakness grossly -AV LUE Assessment WFL weakness grossly -AV Prognosis Good -AV Problem List Decreased ADLs;Decreased functional mobility -AV Barriers to Discharge None -AV Plan Plan of care initiated;If this is the last note, consider this the discharge summary -AV OT Recommendation Intermediate Facility -AV OT Frequency 3-5x/wk -AV Treatment/Interventions ADL/IADL retraining;Functional mobility training -AV OT Evaluation Complete Yes -AV User Corado (r) = Recorded By, (t) = Taken By, (c) = Cosigned By Initials Name Effective Dates AV Rohini Mcdonald OT 03/13/19 - OT Treatment Row Name 04/17/19 09 Session Type Treatment -AV OT Received On 04/17/19 -AV Subjective Agreeable to Therapy -AV Family/Caregiver Present No -AV Pain Score 4 -AV Pain Location Leg -AV Pain Orientation Left -AV R Motion All Joints AROM -AV R Position All Joints Supine -AV Equipment Theraband yellow -AV R Weight/Reps/Sets All Joints 10-15 reps, 1 set -AV L Motion All Joints AROM -AV L Position All Joints Seated -AV Equipment Theraband yellow -AV Muscle Tone-All Joints-Left WNL -AV L Weight/Reps/Sets All Joints 10-15 reps, 1 set -AV Comments Patient complete yellow theraband exercises, all planes. Issued theraband and handout -AV Plan Continue with current plan;If this is the last note, consider this the discharge summary -AV User Corado (r) = Recorded By, (t) = Taken By, (c) = Cosigned By Initials Name Effective Dates AV Rohini Mcdonald OT 03/13/19 - OT Notes (Notes from 04/15/19 through 04/17/19) 04/16/2019 2:15 PM Progress Notes signed by Rohini Mcdonald OT , PT Eval and Treat Last 72 Hours PT Evaluation No documentation. PT TREATMENT (last 168 hours) PT Treatment No documentation. PT Notes (Notes from 04/15/19 through 04/17/19) No notes of this type exist for this encounter. * Plan of Care - Rohini Mcdonald OT - 04/17/2019 10:13 AM CDT Problem: OT Misc Goal: STG - Misc 1 Description Pt. to perform B UE strengthening exercises I'ly for HEP to increase INDEP with self care tasks/functional mobility Outcome: Progressing * Plan of Care - Melodie Alexis RN - 04/17/2019 3:02 AM CDT Problem: Health Behavior: Goal: Understanding of discharge needs will improve Outcome: Progressing Problem: Lack of Knowledge: Goal: Verbalization of understanding the information provided will improve Outcome: Progressing Problem: Fluid Volume: Goal: Ability to maintain a balanced intake and output will improve Outcome: Progressing Problem: Nutritional: Goal: Ability to attain and maintain optimal nutritional status will improve Outcome: Progressing Problem: Physical Regulation: Goal: Ability to maintain vital signs within normal range will improve Outcome: Progressing Goal: Ability to avoid or minimize complications of infection will improve Outcome: Progressing Problem: Sensory: Goal: Pain level will decrease Outcome: Progressing Problem: Skin Integrity: Goal: Skin integrity will improve Outcome: Progressing Problem: Lack of [...] injury in home environment Outcome: Progressing Problem: Activity: Goal: Mobility will improve Outcome: Not Progressing Goals: Clinical Goals for the Shift: Pt. will have improvement of LLE cellulitis, vital signs will be stable and she will be free from injuries. Summary: Pt. continues to have redness and pain of LLE. IV antibiotics given. BLE elevated on multiple pillows. PRN Morphine given for pain relief. A&Ox4. Purewick catheter in place. Pt. is monitored on continuous pulse ox and telemetry at all times. Will continue to monitor and notify MD of any acute changes. * Plan of Care - Pavithra Quach RN - 04/16/2019 6:01 PM CDT Goals: Clinical Goals for the Shift: Remain free from falls and injury. VSS. Meds given as ordered. Summary: Pt was free from falls and injury. Pt got up to the chair with therapy. VSS. PRN meds given for pain. Continue to assess. * Plan of Care - Rohini Goldsmith RRT - 04/16/2019 2:08 PM CDT Impression: Patient is on 1.5 liters with a nasal cannula SpO2 is 96%. Lungs are diminished clear on auscultations and no accessory muscle use noted. Plan: Continue current therapy and continue to monitor patient. * Plan of Care - Viridiana Acuña RN - 04/16/2019 3:04 AM CDT Problem: Health Behavior: Goal: Understanding of discharge needs will improve Outcome: Progressing Problem: Lack of Knowledge: Goal: Verbalization of understanding the information provided will improve Outcome: Progressing Problem: Fluid Volume: Goal: Ability to maintain a balanced intake and output will improve Outcome: Progressing Problem: Nutritional: Goal: Ability to attain and maintain optimal nutritional status will improve Outcome: Progressing Problem: Physical Regulation: Goal: Ability to maintain vital signs within normal range will improve Outcome: Progressing Goal: Ability to avoid or minimize complications of infection will improve Outcome: Progressing Problem: Sensory: Goal: Pain level will decrease Outcome: Progressing Problem: Skin Integrity: Goal: Skin integrity will improve Outcome: Progressing Problem: Activity: Goal: [...] Progressing Goals: Clinical Goals for the Shift: Free from falls, stable vitals and labs, IV antibiotics Summary: Pt is alert and oriented. Vital signs stable. Pt calls out appropriately. Purewick in place. IV antibiotic given. Call light within reach. LLE weeps at times. Will continue to monitor and will notify dr of any changes. * Plan of Care - Gloria Lipscomb RN - 04/15/2019 4:41 PM CDT Goals: Clinical Goals for the Shift: No injuries. continue IV antibiotic, skin care. Encouraged PT. Maintain normalzied vital signs and labs. Summary: No injuries this shift. Assisted in repositioning q2 and prn. IV antibiotic continues, skin care given with each incont episode. Purewick changed, continues have large incont episodes of urine frequently even with purewick. Left lower leg weeping at times. Pain medication given prior to tur claribel, changing and skin care. * Plan of Care - Viridiana Acuña RN - 04/15/2019 3:15 AM CDT Problem: Health Behavior: Goal: Understanding of discharge needs will improve Outcome: Not Progressing Goals: Clinical Goals for the Shift: free from falls, stable vitals and labs, IV antibiotics Summary: Pt is alert and oriented. Pt had complaints of a headache, prn medication given. Vital signs stable. Pt calls out as needed. Pt incontinent. Purewick in place. Lower extremities swollen, redand warm to the touch, also very tender. Pt repositioned for comfort. Call light within reach. Willcontinue to monitor. * ED Procedure Note - Colt Ortiz MD - 04/14/2019 7:34 PM CDTAssociated Order(s): ECG 12 lead Procedure ECG 12 lead Date/Time: 04/14/2019 7:34 PM Performed by: Colt Ortiz MD Authorized by: Colt Ortzi MD Previous ECG: Previous ECG: Compared to current Date of previous EC12/13/2014 Similarity: No change Comments: Normal sinus rhythm with a rate of 74. Colt Ortiz MD 04/14/19 193 documented in this encounter Plan of Treatment Not on file documented as of this encounter Procedures Procedure Name Priority Date/Time Associated Diagnosis Comments GUAIAC OCCULT BLOOD, FECAL, NOT FOR NEOPLASM SCREENING Routine 04/19/2019 9:05 AM CDT EGFR Routine 04/19/2019 3:44 AM CDT DIFFERENTIAL AUTO Routine 04/19/2019 3:4 4 AM CDT CBC WITH AUTO DIFFERENTIAL Routine 04/19/2019 3:44 AM CDT COMPREHENSIVE METABOLIC PANEL Routine 04/19/2019 3:44 AM CDT TRANSTHORACIC ECHO (TTE) COMPLETE W DOPPLER/CF WO CONTRAST Routine 04/18/2019 10:40 AM CDT EGFR Routine 04/18/2019 3:39 AM CDT DIFFERENTIAL AUTO Routine 04/18/2019 3:3 9 AM CDT CBC WITH AUTO DIFFERENTIAL Routine 04/18/2019 3:39 AM CDT COMPREHENSIVE METABOLIC PANEL Routine 04/18/2019 3:39 AM CDT VITAMIN B12 Routine 04/18/2019 3:37 AM CDT EGFR Routine 04/17/2019 3:41 AM CDT DIFFERENTIAL AUTO Routine 04/17/2019 3:4 1 AM CDT CBC WITH AUTO DIFFERENTIAL Routine 04/17/2019 3:41 AM CDT COMPREHENSIVE METABOLIC PANEL Routine 04/17/2019 3:41 AM CDT EGFR Routine 04/16/2019 3:43 AM CDT DIFFERENTIAL AUTO Routine 04/16/2019 3:4 3 AM CDT IRON PROFILE W/ IBC Routine 04/16/2019 3 :43 AM CDT CBC WITH AUTO DIFFERENTIAL Routine 04/16/2019 3:43 AM CDT CRP (ACUTE PHASE) Routine 04/16/2019 3:4 3 AM CDT PHOSPHORUS Routine 04/16/2019 3:43 AM CDT MAGNESIUM Routine 04/16/2019 3:43 AM CDT COMPREHENSIVE METABOLIC PANEL Routine 04/16/2019 3:43 AM CDT EGFR Routine 04/15/2019 5:19 AM CDT DIFFERENTIAL AUTO Routine 04/15/2019 5:1 9 AM CDT CBC WITH AUTO DIFFERENTIAL Routine 04/15/2019 5:19 AM CDT ERYTHROCYTE SEDIMENTATION RATE Routine 04/15/2019 5:19 AM CDT CRP (ACUTE PHASE) Routine 04/15/2019 5:1 9 AM CDT BASIC METABOLIC PANEL Routine 04/15/2019 5:19 AM CDT URINALYSIS AND REFLEX TO MICROSCOPIC AND CULTURE STAT 04/15/2019 12:13 AM CDT SEPSIS LACTATE WITH REFLEX STAT 04/14/2019 7:44 PM CDT BLOOD CULTURE STAT 04/14/2019 7:44 PM CDT XR CHEST 1 VIEW ED 04/14/2019 7:41 PM CDT EGFR STAT 04/14/2019 7:37 PM CDT DIFFERENTIAL AUTO STAT 04/14/2019 7:3 7 PM CDT PRO B-TYPE NATRIURETIC PEPTIDE STAT 04/14/2019 7:37 PM CDT CBC WITH AUTO DIFFERENTIAL STAT 04/14/2019 7:37 PM CDT ABO/RH STAT 04/14/2019 7:37 PM CDT BLOOD CULTURE STAT 04/14/2019 7:37 PM CDT PROTIME-INR STAT 04/14/2019 7:37 PM CDT ANTIBODY SCREEN STAT 04/14/2019 7:37 PM CDT TYPE AND SCREEN STAT 04/14/2019 7:37 PM CDT BLOOD GAS, VENOUS STAT 04/14/2019 7:3 7 PM CDT COMPREHENSIVE METABOLIC PANEL STAT 04/14/2019 7:37 PM CDT ECG 12-LEAD STAT 04/14/2019 7:25 PM CDT documented in this encounter Results * Guaiac occult blood, fecal, non-neoplasm (04/19/2019 9:05 AM CDT) Guaiac occult blood, fecal Negative Negative [facility] ([place]) Stool 04/19/2019 9:05 AM CDT 04/19/2019 9:33 AM CDT Breanna Boston MD LAB BODY FLUIDS AND STOOLS ORDERABLES Final Result [facility] ([place]) [address] [place] [address] * eGFR (04/19/2019 3:44 AM CDT) eGFR 90 mL/min/1.7 3 m2 [facility] ([place]) Comment: Interpretive Data Reference Interval Normal ?>/= 90 mL/min/1.73m2 Mildly decreased* ? 60 - 89 mL/min/1.73m2 Mildly to moderately decreased ?45 - 59 mL/min/1.73m2 Moderately to severely decreased ??30 - 44 mL/min/1.73m2 Severely decreased ?15 - 29 mL/min/1.73m2 Kidney Failure ?< 15 ??mL/min/1.73m2 *Relative to young adult level If -[place] multiply value by 1.16. Estimated glomerular filtration rate is determined by the CKD-EPI equation recommended by the National Kidney Foundation (KDIGO 2012 Clinical Practice Guideline for the Evaluation and Management of Chronic Kidney Disease. Kidney Intnl Suppl Aug 2012;3:1). The CKD-EPI equation should not be used for patients with unstable renal function and has not been validated in children and those over 70. Current interpretive data was last reviewed 2016. Blood specimen (specimen) 04/19/2019 3:44 AM CDT 04/19/2019 3:55 AM CDT Tony Griffiths MD LAB BLOOD ORDERABL ES Final Result [facility] ([place]) [address] [place] [address] * (ABNORMAL) Differential, auto (04/19/2019 3:44 AM CDT) Neutrophil abs 8.3(H) 1.7 - 6.5 K/cumm [facility] ([place]) Imm gran abs 0.6(H) 0.0 - 0.1 K/cumm [facility] ([place]) Lymphocyte abs 2.0 0.8 - 3.3 K/cumm [facility] ([place]) Monocyte abs 2.1(H) 0.2 - 0.8 K/cumm [facility] ([place]) Eosinophil abs 0.0 0.0 - 0.5 K/cumm [facility] ([place]) Basophil abs 0.1 0.0 - 0.1 K/cumm [facility] ([place]) Neutrophil pct 63.8 % [facility] ([place]) Comment: Interpretive Data Percent cell count reference ranges are not reported, since discordance with absolute values may lead to misinterpretation of CBC data. Current Interpretive Data was last revised on 2017. Imm gran pct 4.7 % [facility] ([place]) Comment: Interpretive Data Percent cell count reference ranges are not reported, since discordance with absolute values may lead to misinterpretation of CBC data. Current Interpretive Data was last revised on 2017. Lymphocyte pct 14.9 % [facility] ([place]) Comment: Interpretive Data Percent cell count reference ranges are not reported, since discordance with absolute values may lead to misinterpretation of CBC data. Current Interpretive Data was last revised on 2017. Monocyte pct 16.0 % [facility] ([place]) Comment: Interpretive Data Percent cell count reference ranges are not reported, since discordance with absolute values may lead to misinterpretation of CBC data. Current Interpretive Data was last revised on 2017. Eosinophil pct 0.0 % [facility] ([place]) Comment: Interpretive Data Percent cell count reference ranges are not reported, since discordance with absolute values may lead to misinterpretation of CBC data. Current Interpretive Data was last revised on 2017. Basophil pct 0.6 % [facility] Comment: Interpretive Data Percent cell count reference ranges are not reported, since discordance with absolute values may lead to misinterpretation of CBC data. Current Interpretive Data was last revised on 2017. Blood specimen (specimen) 04/19/2019 3:44 AM CDT 04/19/2019 3:55 AM CDT us Tony Griffiths MD LAB BLOOD ORDERABL ES Final Result [facility] ([place]) [address] [place] [id number] * (ABNORMAL) Comprehensive metabolic panel (04/19/2019 3:44 AM CDT) Sodium 134(L) 135 - 145 mmol/L [facility] ([place]) Potassium, pl 3.9 3.3 - 4.9 mmol/L [facility] ([place]) Chloride 96(L) 97 - 110 mmol/L [facility]) CO2 29 22 - 32 mmol/L [facility]) Anion gap 9 2 - 15 mmol/L [facility] BUN 16 8 - 25 mg/dL [facility] ([place]) Creatinine 0.64 0.60 - 1.10 mg/dL [facility]) Glucose 107 70 - 199 mg/dL [facility] ([place]) Comment: Interpretive Data [...] interpretive data was last revised 2017. Calcium 9.4 8.5 - 10.3 mg/dL [facility] ([place]) Bilirubin, total 0.4 0.1 - 1.2 mg/dL [facility] ([place]) Protein, pl 6.4(L) 6.5 - 8.5 g/dL [facility] ([place]) Albumin 2.6(L) 3.5 - 5.0 g/dL [facility] ([place]) Alk phos 148(H) 40 - 130 Units/L [facility] ([place]) ALT 15 7 - 45 Units/L [facility]) AST 19 10 - 45 Units/L [facility] ([place]) Blood specimen (specimen) 04/19/2019 3:44 AM CDT 04/19/2019 3:55 AM CDT Tony Griffiths MD LAB BLOOD ORDERABL ES Final Result [facility] ([place]) [address] [place] [address] * (ABNORMAL) CBC with auto differential (04/19/2019 3:44 AM CDT) WBC 13.1(H) 3.8 - 9.9 K/cumm [facility] ([place]) Hgb 11.3(L) 11.9 - 15.5 g/dL [facility] ([place] Hct 33.7(L) 35.6 - 45.5 % [facility] ([place]) Plt 245 150 - 400 K/cumm [facility] ([place]) MPV 8.9(L) 9.1 - 12.3 fL [facility] RBC 3.70(L) 3.90 - 5.20 M/cumm [facility] ([place] MCV 91.1 81.3 - 96.4 fL [facility] MCH 30.5 27.1 - 33.3 pg [facility]) MCHC 33.5 32.3 - 35.7 g/dL [facility] ([place]) RDW CV 13.7 11.1 - 14.9 % [facility] RDW SD 46.2 35.7 - 48.1 fL [facility] ([place]) NRBC abs 0.00 0.00 - 0.01 K/cumm [facility] ([place]) Blood specimen (specimen) 04/19/2019 3:44 AM CDT 04/19/2019 3:55 AM CDT Tony Griffiths MD LAB BLOOD ORDERABL ES Final Result [facility] ([place]) [address] [place] [address] * TRANSTHORACIC ECHO (TTE) COMPLETE W DOPPLER/CF WO CONTRAST (04/18/2019 10:40 AM CDT) Anatomical Region Laterality Modality Ultrasound 04/18/2019 8:46 AM CDT Narrative 04/18/2019 1:49 PM CDT [address] [address] Echocardiogram Report Patient Name: PEBBLES JUAREZ : 1945 Study Date: 04/18/2019 08:46:57 Gender: F 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 Measurements: 2D/M Mode ?Doppler ? Measurement ?Value ?Normal Range ? Measurement ?Value ?Normal Range ? EF Teich MM ?68.8 ? [ 55.0 - 70.0 ] percent ?DANIELLE Vmax ? 1.74 ? [ 2.00 - 4.00 ] cm2 ? LVIDd MM ? 4.87 ? [ 3.90 - 5.30 ] cm ? AV Mean PG ? 8 ?[ 2 - 4 ] mmHg ? LVIDs MM ? 2.99 ? [ 2.30 - 3.90 ] cm ? AV Peak Morales ?1.89 ? [ 1.00 - 1.70 ] m/s ? LVPWd MM ? 1.36 ? [ 0.60 - 1.00 ] cm ? AV VTI ? 36.45 ?cm ? IVSd MM ?1.36 ? [ 0.60 - 0.90 ] cm ? LVOT Diam ?1.84 ? [ 1.70 - 2.10 ] cm ? LA Dimension MM ?6.20 ? [ 2.70 - 3.80 ] cm ? LVOT Peak Morales ?1.18 ? [ 0.70 - 1.10 ] m/s ? AoR Diam MM ?3.36 ? [ 2.60 - 3.70 ] cm ? LVOT VTI ? 23.70 ?[ 20.00 - 30.00 ] cm ? ACS MM ? 2.03 ? cm ? MV E Peak Morales ?1.29 ? [ 0.60 - 1.30 ] m/s ? MV A Peak Morales ?0.22 ? [ 1.00 - 1.20 ] m/s ? MV Mean PG ? 2 ?[ <= 5 ] mmHg ? MV PHT ? 52 ? [ 20 - 100 ] msec ? MVA ?4.20 ? MV Decel Time ?180 ?[ 104 - 258 ] msec ? PV Peak Morales ?1.36 ? [ 0.40 - 0.80 ] m/s ? TR Peak Morales ?2.28 ? [ 1.00 - 2.80 ] m/s ? TR Peak PG ? 21 ? mmHg ? RVSP ? 31.00 ?[ 10.00 - 36.00 ] mmHg ? E' ? 0.17 ? E/E' ? 7.65 ? PA Pressure ?21.00 ?[ 10.00 - 36.00 ] mmHg ? Findings: Atrial Septum: Normal atrial septum. Left [...] By: Dr Roly Husain 2019-04-18 13:49:45 CDT Procedure Note Roly Husain MD - 04/18/[address] [place] [address] Echocardiogram Report Patient Name: Ciera JUAREZent ID: [id number] : [id number] Date: 04/18/2019 08:46:57 Gender: FAccession #: [id number] Tech: NPLocation: [id number] Ref.Provider: BREANNA BOSTONHeight(Cm): 160 BSA: 2.41Weight(Kg): 131.1 Quality: AdequateOrder Provider: Ludy Procedures: Echocardiographic Report: Transthoracic echocardiogram with complete 2D, M-Mode, and color Dopplerexamination. Measurements: 2D/M Mode Doppler Measurement Value Normal Range MeasurementValue Normal Range EF Teich MM 68.8 [ 55.0 - 70.0 ] percent DANIELLE Vmax1.74 [ 2.00 - 4.00 ] cm2 LVIDd MM 4.87 [ 3.90 - 5.30 ] cm AV Mean PG 8[ 2 - 4 ] mmHg LVIDs MM 2.99 [ 2.30 - 3.90 ] cm AV Peak Vel1.89 [ 1.00 - 1.70 ] m/s LVPWd MM 1.36 [ 0.60 - 1.00 ] cm AV VTI36.45 cm IVSd MM 1.36 [ 0.60 - 0.90 ] cm LVOT Diam1.84 [ 1.70 - 2.10 ] cm LA Dimension MM 6.20 [ 2.70 - 3.80 ] cm LVOT Peak Vel1.18 [ 0.70 - 1.10 ] m/s AoR Diam MM 3.36 [ 2.60 - 3.70 ] cm LVOT VTI23.70 [ 20.00 - 30.00 ] cm ACS MM 2.03 cm MV E Peak Vel1.29 [ 0.60 - 1.30 ] m/s MV A Peak Vel0.22 [ 1.00 - 1.20 ] m/s MV Mean PG 2[ <= 5 ] mmHg MV PHT 52[ 20 - 100 ] msec MVA4.20 MV Decel Saab127 [ 104 - 258 ] msec PV Peak Vel1.36 [ 0.40 - 0.80 ] m/s TR Peak Vel2.28 [ 1.00 - 2.80 ] m/s TR Peak PG 21mmHg RVSP31.00 [ 10.00 - 36.00 ] mmHg E'0.17 E/E'7.65 PA Inbunmuj11.00 [ 10.00 - 36.00 ] mmHg Findings: Atrial Septum: Normal atrial septum. Left Ventricle: Mild concentric left ventricular hypertrophy. Normal global leftventricular systolic function. Ejection fraction is visually estimated at 60 to 65 %. Left Atrium: The left atrium is normal in size. Right Ventricle: Normal right ventricular size. Right Atrium: The right atrium is normal in size. Aortic Valve: Normal structure of the aortic valve. Mitral Valve: Mild mitral annular calcification. Mild to moderate mitral valveregurgitation. Pulmonic Valve: Pulmonic valve not well visualized. Tricuspid Valve: Normal structure of the tricuspid valve. Trivial regurgitation in thetricuspid valve. Pericardium: Normal pericardium with no significant pericardial effusion. Aorta: Normal aortic root. IVC: Dilated IVC without respiratory collapse consistent with elevated rightatrial pressure (>15 mmHg). Conclusions: Mild concentric left ventricular hypertrophy. Normal global leftventricular systolic function. Ejection fraction is visually estimated at 60 to 65 %. Mild mitral annular calcification. Mild to moderate mitral valveregurgitation. Normal structure of the aortic valve. Normal structure of the tricuspid valve. Trivial regurgitation in thetricuspid valve. Electronically Signed By: Dr Roly Husain 2019-04-18 13:49:45 CDT Breanna Boston MD CV ECHO PROCEDURES Final Result * eGFR (04/18/2019 3:39 AM CDT) [facility] [address] eGFR 92 mL/min/1.7 3 m2 [facility] ([place]) Comment: Interpretive Data Reference Interval Normal ?>/= 90 mL/min/1.73m2 Mildly decreased* ? 60 - 89 mL/min/1.73m2 Mildly to moderately decreased ?45 - 59 mL/min/1.73m2 Moderately to severely decreased ??30 - 44 mL/min/1.73m2 Severely decreased ?15 - 29 mL/min/1.73m2 Kidney Failure ?< 15 ??mL/min/1.73m2 *Relative to young adult level If -[place] multiply value by 1.16. Estimated glomerular filtration rate is determined by the CKD-EPI equation recommended by the National Kidney Foundation (KDIGO 2012 Clinical Practice Guideline for the Evaluation and Management of Chronic Kidney Disease. Kidney Intnl Suppl Aug 2012;3:1). The CKD-EPI equation should not be used for patients with unstable renal function and has not been validated in children and those over 70. Current interpretive data was last reviewed 2016. Blood specimen (specimen) 04/18/2019 3:39 AM CDT 04/18/2019 3:44 AM CDT us Tony Griffiths MD LAB BLOOD ORDERABL ES Final Result [facility] ([place]) [address] [place] [address] * (ABNORMAL) Differential, auto (04/18/2019 3:39 AM CDT) Neutrophil abs 8.1(H) 1.7 - 6.5 K/cumm [facility] ([place]) Imm gran abs 0.3(H) 0.0 - 0.1 K/cumm [facility] ([place]) Lymphocyte abs 2.0 0.8 - 3.3 K/cumm [facility] ([place]) Monocyte abs 1.7(H) 0.2 - 0.8 K/cumm [facility] ([place]) Eosinophil abs 0.0 0.0 - 0.5 K/cumm [facility] ([place]) Basophil abs 0.0 0.0 - 0.1 K/cumm [facility] ([place]) Neutrophil pct 66.8 % [facility] ([place]) Comment: Interpretive Data Percent cell count reference ranges are not reported, since discordance with absolute values may lead to misinterpretation of CBC data. Current Interpretive Data was last revised on 2017. Imm gran pct 2.4 % [facility] ([place]) Comment: Interpretive Data Percent cell count reference ranges are not reported, since discordance with absolute values may lead to misinterpretation of CBC data. Current Interpretive Data was last revised on 2017. Lymphocyte pct 16.3 % [facility] ([place]) Comment: Interpretive Data Percent cell count reference ranges are not reported, since discordance with absolute values may lead to misinterpretation of CBC data. Current Interpretive Data was last revised on 2017. Monocyte pct 14.1 % [facility] ([place]) Comment: Interpretive Data Percent cell count reference ranges are not reported, since discordance with absolute values may lead to misinterpretation of CBC data. Current Interpretive Data was last revised on 2017. Eosinophil pct 0.0 % [facility] ([place]) Comment: Interpretive Data Percent cell count reference ranges are not reported, since discordance with absolute values may lead to misinterpretation of CBC data. Current Interpretive Data was last revised on 2017. Basophil pct 0.4 % [facility] ([place]) Comment: Interpretive Data Percent cell count reference ranges are not reported, since discordance with absolute values may lead to misinterpretation of CBC data. Current Interpretive Data was last revised on 2017. Blood specimen (specimen) 04/18/2019 3:39 AM CDT 04/18/2019 3:44 AM CDT Tony Griffiths MD LAB BLOOD ORDERABL ES Final Result [facility] ([place]) [address] [place], [place] [id number] * (ABNORMAL) Comprehensive metabolic panel (04/18/2019 3:39 AM CDT) Sodium 134(L) 135 - 145 mmol/L [facility] ([place]) Potassium, pl 4.0 3.3 - 4.9 mmol/L [facility] ([place]) Chloride 95(L) 97 - 110 mmol/L [facility] ([place]) CO2 29 22 - 32 mmol/L [facility] ([place]) Anion gap 10 2 - 15 mmol/L [facility] ([place]) BUN 16 8 - 25 mg/dL [facility] ([place]) Creatinine 0.60 0.60 - 1.10 mg/dL [facility] ([place]) [...] Calcium 9.6 8.5 - 10.3 mg/dL [facility] ([place]) Bilirubin, total 0.5 0.1 - 1.2 mg/dL [facility] ([place]) Protein, pl 7.1 6.5 - 8.5 g/dL [facility] ([place]) Albumin 2.7(L) 3.5 - 5.0 g/dL [facility] ([place]) Alk phos 160(H) 40 - 130 Units/L [facility] ([place]) ALT 14 7 - 45 Units/L [facility] ([place]) AST 21 10 - 45 Units/L [facility] ([place]) Blood specimen (specimen) 04/18/2019 3:39 AM CDT 04/18/2019 3:44 AM CDT Tony Griffiths MD LAB BLOOD ORDERABL ES Final Result [facility] ([place]) [address] [place], [place] [id number] * (ABNORMAL) CBC with auto differential (04/18/2019 3:39 AM CDT) WBC 12.1(H) 3.8 - 9.9 K/cumm [facility] ([place]) Hgb 11.4(L) 11.9 - 15.5 g/dL [facility] ([place]) Hct 33.7(L) 35.6 - 45.5 % [facility] ([place]) Plt 223 150 - 400 K/cumm [facility] ([place]) MPV 8.8(L) 9.1 - 12.3 fL [facility] ([place]) RBC 3.71(L) 3.90 - 5.20 M/cumm [facility] ([place]) MCV 90.8 81.3 - 96.4 fL [facility] ([place]) MCH 30.7 27.1 - 33.3 pg [facility] ([place]) MCHC 33.8 32.3 - 35.7 g/dL [facility] ([place]) RDW CV 13.8 11.1 - 14.9 % [facility] ([place]) RDW SD 46.2 35.7 - 48.1 fL [facility] ([place]) NRBC abs 0.00 0.00 - 0.01 K/cumm [facility] ([place]) Blood specimen (specimen) 04/18/2019 3:39 AM CDT 04/18/2019 3:44 AM CDT us Tony Griffiths MD LAB BLOOD ORDERABL ES Final Result [facility] ([place]) [address] [place] [address] * Vitamin B12 (04/18/2019 3:37 AM CDT) [facility] [address] Vitamin B12 595 230 - 1,250 pg/mL [facility] ([place] Comment:Testing performed by : [facility], [address] [place] [address]., [id number] Blood specimen (specimen) 04/18/2019 3:37 AM CDT 04/18/2019 2:54 PM CDT us Breanna Boston MD LAB BLOOD ORDERABLE S Final Result [facility] ([place]) [address] [place], [place] [id number] * eGFR (04/17/2019 3:41 AM CDT) eGFR 92 mL/min/1.7 3 m2 [facility] ([place]) Comment: Interpretive Data Reference Interval Normal ?>/= 90 mL/min/1.73m2 Mildly decreased* ? 60 - 89 mL/min/1.73m2 Mildly to moderately decreased ?45 - 59 mL/min/1.73m2 Moderately to severely decreased ??30 - 44 mL/min/1.73m2 Severely decreased ?15 - 29 mL/min/1.73m2 Kidney Failure ?< 15 ??mL/min/1.73m2 *Relative to young adult level If -[place] multiply value by 1.16. Estimated glomerular filtration rate is determined by the CKD-EPI equation recommended by the National Kidney Foundation (KDIGO 2012 Clinical Practice Guideline for the Evaluation and Management of Chronic Kidney Disease. Kidney Intnl Suppl Aug 2012;3:1). The CKD-EPI equation should not be used for patients with unstable renal function and has not been validated in children and those over 70. Current interpretive data was last reviewed 2016. Blood specimen (specimen) 04/17/2019 3:41 AM CDT 04/17/2019 9:25 AM CDT Tony Griffiths MD LAB BLOOD ORDERABL ES Final Result [facility] ([place]) [address] [place], [place] [id number] * (ABNORMAL) Differential, auto (04/17/2019 3:41 AM CDT) Neutrophil abs 9.2(H) 1.7 - 6.5 K/cumm [facility] ([place]) Imm gran abs 0.1 0.0 - 0.1 K/cumm [facility] ([place]) Lymphocyte abs 1.7 0.8 - 3.3 K/cumm [facility] ([place]) Monocyte abs 1.3(H) 0.2 - 0.8 K/cumm [facility] ([place]) Eosinophil abs 0.0 0.0 - 0.5 K/cumm [facility] ([place]) Basophil abs 0.0 0.0 - 0.1 K/cumm [facility] ([place]) Neutrophil pct 75.1 % [facility] ([place]) Comment: Interpretive [...] was last revised on 2017. Lymphocyte pct 13.5 % [facility] ([place]) Comment: Interpretive Data Percent cell count reference ranges are not reported, since discordance with absolute values may lead to misinterpretation of CBC data. Current Interpretive Data was last revised on 2017. Monocyte pct 10.5 % [facility] ([place]) Comment: Interpretive Data Percent cell count reference ranges are not reported, since discordance with absolute values may lead to misinterpretation of CBC data. Current Interpretive Data was last revised on 2017. Eosinophil pct 0.0 % [facility] ([place]) Comment: Interpretive Data Percent cell count reference ranges are not reported, since discordance with absolute values may lead to misinterpretation of CBC data. Current Interpretive Data was last revised on 2017. Basophil pct 0.2 % [facility] ([place]) Comment: Interpretive Data Percent cell count reference ranges are not reported, since discordance with absolute values may lead to misinterpretation of CBC data. Current Interpretive Data was last revised on 2017. Blood specimen (specimen) 04/17/2019 3:41 AM CDT 04/17/2019 8:54 AM CDT Tony Griffiths MD LAB BLOOD ORDERABL ES Final Result [facility] ([place]) [address] [place] [address] * (ABNORMAL) Comprehensive metabolic panel (04/17/2019 3:41 AM CDT) Sodium 135 135 - 145 mmol/L [facility] ([place]) Potassium, pl 4.1 3.3 - 4.9 mmol/L [facility] ([place]) Chloride 98 97 - 110 mmol/L [facility] ([place]) CO2 27 22 - 32 mmol/L [facility] ([place]) Anion gap 10 2 - 15 mmol/L [facility] ([place]) BUN 14 8 - 25 mg/dL [facility] ([place]) Creatinine 0.59(L) 0.60 - 1.10 mg/dL [facility] ([place]) [...] interpretive data was last revised 2017. Calcium 9.5 8.5 - 10.3 mg/dL [facility] ([place]) Bilirubin, total 0.5 0.1 - 1.2 mg/dL [facility] ([place]) Protein, pl 6.7 6.5 - 8.5 g/dL [facility] ([place]) Albumin 2.7(L) 3.5 - 5.0 g/dL [facility] ([place]) Alk phos 162(H) 40 - 130 Units/L [facility] ([place]) ALT 9 7 - 45 Units/L [facility] ([place]) AST 17 10 - 45 Units/L [facility] ([place]) Blood specimen (specimen) 04/17/2019 3:41 AM CDT 04/17/2019 9:25 AM CDT Tony Griffiths MD LAB BLOOD ORDERABL ES Final Result [facility] ([place]) [address] [place] [address] * (ABNORMAL) CBC with auto differential (04/17/2019 3:41 AM CDT) WBC 12.3(H) 3.8 - 9.9 K/cumm [facility] ([place]) Hgb 10.6(L) 11.9 - 15.5 g/dL [facility] ([place]) Hct 32.3(L) 35.6 - 45.5 % [facility] ([place]) Plt 202 150 - 400 K/cumm [facility] ([place]) MPV 9.4 9.1 - 12.3 fL [facility] ([place]) RBC 3.49(L) 3.90 - 5.20 M/cumm [facility] ([place]) MCV 92.6 81.3 - 96.4 fL [facility] ([place]) MCH 30.4 27.1 - 33.3 pg [facility] ([place]) MCHC 32.8 32.3 - 35.7 g/dL [facility] ([place]) RDW CV 14.1 11.1 - 14.9 % [facility] ([place]) RDW SD 48.0 35.7 - 48.1 fL [facility] ([place]) NRBC abs 0.00 0.00 - 0.01 K/cumm [facility] ([place]) Blood specimen (specimen) 04/17/2019 3:41 AM CDT 04/17/2019 8:54 AM CDT Tony Griffiths MD LAB BLOOD ORDERABL ES Final Result [facility] ([place]) [address] [place] [address] * (ABNORMAL) Iron profile w/ IBC (04/16/2019 3:43 AM CDT) Iron 13(L) 35 - 145 mcg/dL [facility] ([place] TIBC 227(L) 250 - 400 mcg/dL [facility] ([place]) Transferrin saturation 6(L) 20 - 50 % [facility] ([place]) Blood specimen (specimen) 04/16/2019 3:43 AM CDT 04/16/2019 2:00 PM CDT us Breanna Boston MD LAB BLOOD ORDERABLE S Final Result [facility] ([place]) [address] [place] [address] * eGFR (04/16/2019 3:43 AM CDT) eGFR 89 mL/min/1.7 3 m2 [facility] ([place]) Comment: Interpretive Data Reference Interval Normal ?>/= 90 mL/min/1.73m2 Mildly decreased* ? 60 - 89 mL/min/1.73m2 Mildly to moderately decreased ?45 - 59 mL/min/1.73m2 Moderately to severely decreased ??30 - 44 mL/min/1.73m2 Severely decreased ?15 - 29 mL/min/1.73m2 Kidney Failure ?< 15 ??mL/min/1.73m2 *Relative to young adult level If -[place] multiply value by 1.16. Estimated glomerular filtration rate is determined by the CKD-EPI equation recommended by the National Kidney Foundation (KDIGO 2012 Clinical Practice Guideline for the Evaluation and Management of Chronic Kidney Disease. Kidney Intnl Suppl Aug 2012;3:1). The CKD-EPI equation should not be used for patients with unstable renal function and has not been validated in children and those over 70. Current interpretive data was last reviewed 2016. Blood specimen (specimen) 04/16/2019 3:43 AM CDT 04/16/2019 3:55 AM CDT Tony Griffiths MD LAB BLOOD ORDERABL ES Final Result [facility] ([place]) [address] [place] [address] * (ABNORMAL) Differential, auto (04/16/2019 3:43 AM CDT) Neutrophil abs 10.3(H) 1.7 - 6.5 K/cumm [facility] ([place]) Imm gran abs 0.1 0.0 - 0.1 K/cumm [facility] ([place]) Lymphocyte abs 1.6 0.8 - 3.3 K/cumm [facility] ([place]) Monocyte abs 1.2(H) 0.2 - 0.8 K/cumm [facility] ([place]) Eosinophil abs 0.0 0.0 - 0.5 K/cumm [facility] ([place]) Basophil abs 0.0 0.0 - 0.1 K/cumm [facility] ([place]) Neutrophil pct 78.1 % [facility] ([place]) Comment: Interpretive Data Percent cell count reference ranges are not reported, since discordance with absolute values may lead to misinterpretation of CBC data. Current Interpretive Data was last revised on 2017. Imm gran pct 0.5 % [facility] ([place]) Comment: Interpretive Data Percent cell count reference ranges are not reported, since discordance with absolute values may lead to misinterpretation of CBC data. Current Interpretive Data was last revised on 2017. Lymphocyte pct 12.3 % [facility] ([place]) Comment: Interpretive Data Percent cell count reference ranges are not reported, since discordance with absolute values may lead to misinterpretation of CBC data. Current Interpretive Data was last revised on 2017. Monocyte pct 8.9 % [facility] ([place]) Comment: Interpretive Data Percent cell count reference ranges are not reported, since discordance with absolute values may lead to misinterpretation of CBC data. Current Interpretive Data was last revised on 2017. Eosinophil pct 0.0 % [facility] ([place]) Comment: Interpretive Data Percent cell count reference ranges are not reported, since discordance with absolute values may lead to misinterpretation of CBC data. Current Interpretive Data was last revised on 2017. Basophil pct 0.2 % [facility] ([place]) Comment: Interpretive Data Percent cell count reference ranges are not reported, since discordance with absolute values may lead to misinterpretation of CBC data. Current Interpretive Data was last revised on 2017. Blood specimen (specimen) 04/16/2019 3:43 AM CDT 04/16/2019 3:55 AM CDT Tony Griffiths MD LAB BLOOD ORDERABL ES Final Result Performing Organization Address City/[facility]/ZIP Co de Phone Number [facility] ([place]) [address] [place] [address] * (ABNORMAL) CRP (acute phase) (04/16/2019 3:43 AM CDT) CRP 259.6(H) <=10.0 mg/L [facility] ([place]) Blood specimen (specimen) 04/16/2019 3:43 AM CDT 04/16/2019 3:55 AM CDT Tony Griffiths MD LAB BLOOD ORDERABL ES Final Result Performing Organization Address City/[facility]/ZIP Co de Phone Number [facility] ([place]) [address] [place] [address] * Phosphorus (04/16/2019 3:43 AM CDT) Phosphorus, pl 2.5 2.3 - 4.5 mg/dL [facility] ([place]) Blood specimen (specimen) 04/16/2019 3:43 AM CDT 04/16/2019 3:55 AM CDT Tony Griffiths MD LAB BLOOD ORDERABL ES Final Result Performing Organization Address City/[facility]/ZIP Co de Phone Number [facility] ([place]) [address] [place] [address] * Magnesium (04/16/2019 3:43 AM CDT) Magnesium 1.8 1.6 - 2.4 mg/dL [facility] ([place]) Blood specimen (specimen) 04/16/2019 3:43 AM CDT 04/16/2019 3:55 AM CDT Tony Griffiths MD LAB BLOOD ORDERABL ES Final Result Performing Organization Address [facility] Co de Phone Number [facility] ([place]) [address] [place] [address] * (ABNORMAL) Comprehensive metabolic panel (04/16/2019 3:43 AM CDT) Sodium 136 135 - 145 mmol/L [facility] ([place]) Potassium, pl 4.1 3.3 - 4.9 mmol/L [facility] ([place]) Chloride 100 97 - 110 mmol/L [facility] ([place]) CO2 25 22 - 32 mmol/L [facility] ([place]) Anion gap 12 2 - 15 mmol/L [facility] ([place]) BUN 15 8 - 25 mg/dL [facility] ([place]) Creatinine 0.66 0.60 - 1.10 mg/dL [facility] ([place]) [...] interpretive data was last revised 2017. Calcium 9.3 8.5 - 10.3 mg/dL [facility] ([place]) Bilirubin, total 0.3 0.1 - 1.2 mg/dL [facility] ([place]) Protein, pl 6.5 6.5 - 8.5 g/dL [facility] ([place]) Albumin 2.8(L) 3.5 - 5.0 g/dL [facility] ([place]) Alk phos 117 40 - 130 Units/L [facility] ([place]) ALT 11 7 - 45 Units/L [facility] ([place]) AST 15 10 - 45 Units/L [facility] ([place]) Blood specimen (specimen) 04/16/2019 3:43 AM CDT 04/16/2019 3:55 AM CDT us Tony Griffiths MD LAB BLOOD ORDERABL ES Final Result [facility] ([place]) 1 [place] [id number] * (ABNORMAL) CBC with auto differential (04/16/2019 3:43 AM CDT) WBC 13.2(H) 3.8 - 9.9 K/cumm [facility] ([place]) Hgb 10.8(L) 11.9 - 15.5 g/dL [facility] ([place]) Hct 32.2(L) 35.6 - 45.5 % [facility] ([place]) Plt 184 150 - 400 K/cumm [facility] ([place]) MPV 9.1 9.1 - 12.3 fL [facility] ([place]) RBC 3.55(L) 3.90 - 5.20 M/cumm [facility] ([place]) MCV 90.7 81.3 - 96.4 fL [facility] ([place]) MCH 30.4 27.1 - 33.3 pg [facility] ([place]) MCHC 33.5 32.3 - 35.7 g/dL [facility] ([place]) RDW CV 14.2 11.1 - 14.9 % [facility] ([place]) RDW SD 47.4 35.7 - 48.1 fL [facility] ([place]) NRBC abs 0.00 0.00 - 0.01 K/cumm [facility] ([place]) Blood specimen (specimen) 04/16/2019 3:43 AM CDT 04/16/2019 3:55 AM CDT Tony Griffiths MD LAB BLOOD ORDERABL ES Final Result Performing Organization Address [facility]/ZIP Co de Phone Number [facility] ([place]) [address] [place] [address] * (ABNORMAL) Erythrocyte sedimentation rate (04/15/2019 5:19 AM CDT) Erythrocyte sedimentation rate 35(H) 1 - 30 mm/hr [facility] ([place]) Blood specimen (specimen) 04/15/2019 5:19 AM CDT 04/15/2019 1:31 PM CDT Tony Griffiths MD LAB BLOOD ORDERABL ES Final Result Performing Organization Address [facility] Co de Phone Number [facility] ([place] [address] [place] [phone] * (ABNORMAL) CRP (acute phase) (04/15/2019 5:19 AM CDT) CRP 175.8(H) <=10.0 mg/L [facility] ([place]) Blood specimen (specimen) 04/15/2019 5:19 AM CDT 04/15/2019 1:31 PM CDT Tony Griffiths MD LAB BLOOD ORDERABL ES Final Result Performing Organization Address [facility] Co de Phone Number [facility] ([place]) [address] [place] [address] * eGFR (04/15/2019 5:19 AM CDT) eGFR 86 mL/min/1.7 3 m2 [facility] ([place]) Comment: Interpretive Data Reference Interval Normal ?>/= 90 mL/min/1.73m2 Mildly decreased* ? 60 - 89 mL/min/1.73m2 Mildly to moderately decreased ?45 - 59 mL/min/1.73m2 Moderately to severely decreased ??30 - 44 mL/min/1.73m2 Severely decreased ?15 - 29 mL/min/1.73m2 Kidney Failure ?< 15 ??mL/min/1.73m2 *Relative to young adult level If -[place] multiply value by 1.16. Estimated glomerular filtration rate is determined by the CKD-EPI equation recommended by the National Kidney Foundation (KDIGO 2012 Clinical Practice Guideline for the Evaluation and Management of Chronic Kidney Disease. Kidney Intnl Suppl Aug 2012;3:1). The CKD-EPI equation should not be used for patients with unstable renal function and has not been validated in children and those over 70. Current interpretive data was last reviewed 2016. Blood specimen (specimen) 04/15/2019 5:19 AM CDT 04/15/2019 5:45 AM CDT us Colt Ortiz MD LAB BLOOD ORDERABLES Final R esult [facility] ([place]) [address] [place] [address] * (ABNORMAL) Differential, auto (04/15/2019 5:19 AM CDT) Neutrophil abs 12.1(H) 1.7 - 6.5 K/cumm [facility] ([place]) Imm gran abs 0.1 0.0 - 0.1 K/cumm [facility] ([place]) Lymphocyte abs 1.2 0.8 - 3.3 K/cumm [facility] ([place]) Monocyte abs 0.8 0.2 - 0.8 K/cumm [facility] ([place]) Eosinophil abs 0.0 0.0 - 0.5 K/cumm [facility] ([place]) Basophil abs 0.0 0.0 - 0.1 K/cumm [facility] ([place]) Neutrophil pct 84.7 % [facility] ([place]) Comment: Interpretive Data Percent cell count reference ranges are not reported, since discordance with absolute values may lead to misinterpretation of CBC data. Current Interpretive Data was last revised on 2017. Imm gran pct 0.5 % [facility] ([place]) Comment: Interpretive Data Percent cell count reference ranges are not reported, since discordance with absolute values may lead to misinterpretation of CBC data. Current Interpretive Data was last revised on 2017. Lymphocyte pct 8.7 % [facility] ([place]) Comment: Interpretive Data Percent cell count reference ranges are not reported, since discordance with absolute values may lead to misinterpretation of CBC data. Current Interpretive Data was last revised on 2017. Monocyte pct 5.9 % [facility] ([place]) Comment: Interpretive Data Percent cell count reference ranges are not reported, since discordance with absolute values may lead to misinterpretation of CBC data. Current Interpretive Data was last revised on 2017. Eosinophil pct 0.0 % [facility] ([place]) Comment: Interpretive Data Percent cell count reference ranges are not reported, since discordance with absolute values may lead to misinterpretation of CBC data. Current Interpretive Data was last revised on 2017. Basophil pct 0.2 % [facility] ([place]) Comment: Interpretive Data Percent cell count reference ranges are not reported, since discordance with absolute values may lead to misinterpretation of CBC data. Current Interpretive Data was last revised on 2017. Blood specimen (specimen) 04/15/2019 5:19 AM CDT 04/15/2019 5:42 AM CDT us Colt Ortiz MD LAB BLOOD ORDERABLES Final R esult [facility] ([place]) [address] [place] [address] * Basic metabolic panel (04/15/2019 5:19 AM CDT) Sodium 135 135 - 145 mmol/L [facility] ([place]) Potassium, pl 3.9 3.3 - 4.9 mmol/L [facility] ([place]) Chloride 99 97 - 110 mmol/L [facility] ([place]) CO2 24 22 - 32 mmol/L [facility] Anion gap 12 2 - 15 mmol/L [facility] ([place]) BUN 20 8 - 25 mg/dL [facility] ([place] Creatinine 0.71 0.60 - 1.10 mg/dL [facility] ([place]) Glucose 91 70 - 199 mg/dL [facility] ([place]) Comment: Interpretive Data Fasting glucose [...] interpretive data was last revised 2017. Calcium 9.5 8.5 - 10.3 mg/dL [facility] ([place]) Blood specimen (specimen) 04/15/2019 5:19 AM CDT 04/15/2019 5:45 AM CDT us Colt Ortiz MD LAB BLOOD ORDERABLES Final R esult [facility] ([place]) [address] [place] [address] * (ABNORMAL) CBC with auto differential (04/15/2019 5:19 AM CDT) WBC 14.3(H) 3.8 - 9.9 K/cumm [facility] Hgb 10.9(L) 11.9 - 15.5 g/dL [facility] ([place]) Hct 32.2(L) 35.6 - 45.5 % [facility] ([place]) Plt 179 150 - 400 K/cumm [facility] ([place]) MPV 9.0(L) 9.1 - 12.3 fL [facility] ([place]) RBC 3.55(L) 3.90 - 5.20 M/cumm [facility] ([place]) MCV 90.7 81.3 - 96.4 fL [facility] ([place]) MCH 30.7 27.1 - 33.3 pg [facility] ([place]) MCHC 33.9 32.3 - 35.7 g/dL [facility] ([place]) RDW CV 14.3 11.1 - 14.9 % [facility] ([place]) RDW SD 47.2 35.7 - 48.1 fL [facility] ([place]) NRBC abs 0.00 0.00 - 0.01 K/cumm [facility] ([place]) Blood specimen (specimen) 04/15/2019 5:19 AM CDT 04/15/2019 5:42 AM CDT us Colt Ortiz MD LAB BLOOD ORDERABLES Final R esult [facility] ([place]) [address] [place] [id number] * Urinalysis reflex to microscopic and culture Urine (04/15/2019 12:13 AM CDT) Color, ur Yellow Yellow [facility] ([place]) Clarity, ur Clear Clear [facility] ([place]) Specific gravity, ur 1.012 1.010 - 1.025 [facility] ([place]) pH, urine 6.5 [facility] ([place]) Protein, ur ql Negative Negative [facility] ([place]) Glucose, ur ql Negative Negative [facility] ([place]) Ketones, ur Negative Negative [facility] ([place]) Bilirubin, ur Negative Negative [facility] ([place]) Blood, ur Negative Negative [facility] ([place]) Urobilinogen, ur 0.2 mg/dL [facility] ([place]) Nitrite, ur Negative Negative [facility] ([place]) Leukocyte esterase, ur Negative Negative [facility] ([place]) Urine 04/15/2019 12:1 3 AM CDT 04/15/2019 12:18 AM CDT Narrative [facility] ([place]) - 04/15/2019 12:26 AM CDT ?? Urine pH is affected by diet, medications, systemic acid-base disturbances, and renal tubular function. ??pH may affect urinary stone formation. ??For example, urine pH below 6.0 may help reduce the tendency for calcium phosphate stones and pH greater than 6.0 may reduce the tendency for uric acid stone formation. Source: [employer]. Last revised 08-11-2017 Urine pH is affected by diet, medications, systemic acid-base disturbances, and renal tubular function. ??pH may affect urinary stone formation. ??For example, urine pH below 6.0 may help reduce the tendency for calcium phosphate stones and pH greater than 6.0 may reduce the tendency for uric acid stone formation. Source: [employer]. Last revised 08-11-2017 Colt Ortiz MD LAB MICROBIOLOGY - GENERAL O RDERABLES Final Result [facility] ([place]) [address] [place] [address] * Blood culture Blood Antecubital, right (04/14/2019 7:44 PM CDT) Report Final Report: No growth [facility]) Comment:Testing performed by : [facility], [address] [facility] [address] Blood specimen (specimen) (Antecubital, right) 04/14/2019 7:44 PM CDT 04/14/2019 10:19 PM CDT Narrative [facility] ([place]) - 04/20/2019 7:00 AM CDT From a different site than #1. Draw Blood cultures before administration of Antibiotics 1. Blood cultures are incubated for 5 days on a continuously monitored blood culture system. The first report of a negative culture is issued within 24 hours of receipt of the specimen in the laboratory. 2. Positive culture results are reported as soon as they are detected. 3. The most important factor for detection of microbes [...] recommended for each blood culture set. 4. For blood cultures with Gram-positive cocci, a rapid molecular test for organism identification may be performed using the Gold Standard Diagnosticsigene Gram-Positive Blood Culture Assay. This assay detects microbial DNA in positive blood culture broth via hybridization of target DNA to capture oligonucleotides on a microarray. This assay has been cleared by the [place] Food and Drug Administration and its performance characteristics have been verified by the [facility]. 5. For questions about this culture, contact the Microbiology Laboratory at [phone]. Interpretive data was last revised on 2018. Colt Ortiz MD LAB MICROBIOLOGY - GENERAL O RDERABLES Final Result [facility] ([place]) [address] [place] [address] * Sepsis Lactate w/ Reflex (04/14/2019 7:44 PM CDT) Sepsis Lactate 1.3 0.7 - 2.0 mmol/L [facility] ([place]) Blood specimen (specimen) 04/14/2019 7:44 PM CDT 04/14/2019 7:48 PM CDT Colt Ortiz MD LAB BLOOD ORDERABLES Final R esult [facility] ([place]) [address] [place] [address] * XR Chest 1 Vw Portable (04/14/2019 7:41 PM CDT) Anatomical Region Laterality Modality Body, Chest N/A Computed Radiogr aphy 04/14/2019 7:56 PM CDT Impressions 04/14/2019 7:57 PM CDT MILD CARDIOMEGALY WITH NO ACTIVE DISEASE Electronically signed by: Pawan Harrison M.D. Narrative 04/14/2019 7:57 PM CDT XR CHEST 1 VIEW HISTORY: Weakness COMPARISON: None available. FINDINGS: Heart is mildly enlarged. ??Lungs are clear with no pleural effusion. Procedure Note Pawan Harrison MD - 04/14/2019 XR CHEST 1 VIEW HISTORY: Weakness COMPARISON: None available. FINDINGS: Heart is mildly enlarged. Lungs are clear with no pleural effusion. IMPRESSION: MILD CARDIOMEGALY WITH NO ACTIVE DISEASE Electronically signed by: Pawan Harrison M.D. us Colt Ortiz MD IMG XR PROCEDURES Final Resu lt * eGFR (04/14/2019 7:37 PM CDT) eGFR 90 mL/min/1.7 3 m2 [facility] ([place]) Comment: Interpretive Data Reference Interval Normal ?>/= 90 mL/min/1.73m2 Mildly decreased* ? 60 - 89 mL/min/1.73m2 Mildly to moderately decreased ?45 - 59 mL/min/1.73m2 Moderately to severely decreased ??30 - 44 mL/min/1.73m2 Severely decreased ?15 - 29 mL/min/1.73m2 Kidney Failure ?< 15 ??mL/min/1.73m2 *Relative to young adult level If -[place] multiply value by 1.16. Estimated glomerular filtration rate is determined by the CKD-EPI equation recommended by the National Kidney Foundation (KDIGO 2012 Clinical Practice Guideline for the Evaluation and Management of Chronic Kidney Disease. Kidney Intnl Suppl Aug 2012;3:1). The CKD-EPI equation should not be used for patients with unstable renal function and has not been validated in children and those over 70. Current interpretive data was last reviewed 2016. Blood specimen (specimen) 04/14/2019 7:37 PM CDT 04/14/2019 7:41 PM CDT us Colt Ortiz MD LAB BLOOD ORDERABLES Final R esult [facility] ([place]) [address] [place] [address] * (ABNORMAL) Differential, auto (04/14/2019 7:37 PM CDT) Neutrophil abs 14.0(H) 1.7 - 6.5 K/cumm [facility] ([place]) Imm gran abs 0.0 0.0 - 0.1 K/cumm [facility] ([place]) Lymphocyte abs 0.9 0.8 - 3.3 K/cumm [facility] ([place]) Monocyte abs 0.5 0.2 - 0.8 K/cumm [facility] ([place]) Eosinophil abs 0.0 0.0 - 0.5 K/cumm [facility] ([place]) Basophil abs 0.0 0.0 - 0.1 K/cumm [facility] ([place]) Neutrophil pct 90.3 % [facility] ([place]) Comment: Interpretive Data Percent cell count reference ranges are not reported, since discordance with absolute values may lead to misinterpretation of CBC data. Current Interpretive Data was last revised on 2017. Imm gran pct 0.2 % [facility] ([place]) Comment: Interpretive Data Percent cell count reference ranges are not reported, since discordance with absolute values may lead to misinterpretation of CBC data. Current Interpretive Data was last revised on 2017. Lymphocyte pct 5.7 % [facility] ([place]) Comment: Interpretive Data Percent cell count reference ranges are not reported, since discordance with absolute values may lead to misinterpretation of CBC data. Current Interpretive Data was last revised on 2017. Monocyte pct 3.5 % [facility] ([place]) Comment: Interpretive Data Percent cell count reference ranges are not reported, since discordance with absolute values may lead to misinterpretation of CBC data. Current Interpretive Data was last revised on 2017. Eosinophil pct 0.0 % [facility] ([place]) Comment: Interpretive [...] Data was last revised on 2017. Blood specimen (specimen) 04/14/2019 7:37 PM CDT 04/14/2019 7:41 PM CDT Colt Ortiz MD LAB BLOOD ORDERABLES Final R esult Performing Organization Address [facility]/ZIP Co de Phone Number [facility] ([place]) [address] [place] [address] * Antibody screen (04/14/2019 7:37 PM CDT) Charisma, indirect, Gel Interpretation Negative ABSC [facility] ([place] Blood specimen (specimen) 04/14/2019 7:37 PM CDT 04/14/2019 7:41 PM CDT Narrative [facility] ([place]) - 04/14/2019 8:29 PM CDT Has the patient had Daratumumab (Darzalex) in the past 6 months?->Unknown Colt Ortiz MD LAB BLOOD BANK TEST ORDERABL ES Final Result Performing Organization Address [facility]/ZIP Co de Phone Number [facility] ([place]) [address] [place] [address] * ABO/Rh (04/14/2019 7:37 PM CDT) ABO/Rh O Positive [facility] ([place]) Blood specimen (specimen) 04/14/2019 7:37 PM CDT 04/14/2019 7:41 PM CDT Narrative [facility]) - 04/14/2019 8:29 PM CDT Has the patient had Daratumumab (Darzalex) in the past 6 months?->Unknown us Colt Ortiz MD LAB BLOOD BANK TEST ORDERABL ES Final Result [facility]) [address] [place] [address] * Blood culture Blood Antecubital, left (04/14/2019 7:37 PM CDT) Report Final Report: No growth [facility]) Comment:Testing performed by : [facility], [address] [place]., [address] Blood specimen (specimen) (Antecubital, left) 04/14/2019 7:37 PM CDT 04/14/2019 10:19 PM CDT Narrative [facility]) - 04/20/2019 7:00 AM CDT Draw Blood cultures before administration of Antibiotics 1. Blood cultures are incubated for 5 days on a continuously monitored blood culture system. The first report of a negative culture is issued within 24 hours of receipt of the specimen in the laboratory. 2. Positive culture results are reported as soon as they are detected. 3. The most important factor for detection of microbes [...] recommended for each blood culture set. 4. For blood cultures with Gram-positive cocci, a rapid molecular test for organism identification may be performed using the Gold Standard Diagnosticsigene Gram-Positive Blood Culture Assay. This assay detects microbial DNA in positive blood culture broth via hybridization of target DNA to capture oligonucleotides on a microarray. This assay has been cleared by the [place] Food and Drug Administration and its performance characteristics have been verified by the [facility]. 5. For questions about this culture, contact the Microbiology Laboratory at [phone]. Interpretive data was last revised on 2018. Colt Ortiz MD LAB MICROBIOLOGY - GENERAL O RDERABLES Final Result Performing Organization Address [facility] Co de Phone Number [facility] ([place]) [address] [place] [address] * (ABNORMAL) Protime-INR (04/14/2019 7:37 PM CDT) PT 14.9(H) 9.5 - 13.0 sec [facility] ([place]) INR 1.31(H) 0.90 - 1.20 [facility] ([place]) Comment: Interpretive Data Recommended ranges for Protime INR: 2.0 - 3.0 Most indications for Warfarin therapy (e.g. Treatment of DVT, PE, bioprosthetic valve replacement, prophylaxis venous thrombosis, atrial fibrillation). 2.5 - 3.5 Mechanical mitral valve or dual mechanical mitral and Aortic valve replacement. Current Interpretive Data was last revised on 2015. Blood specimen (specimen) 04/14/2019 7:37 PM CDT 04/14/2019 7:41 PM CDT us Colt Ortiz MD LAB BLOOD ORDERABLES Final R esult Performing Organization Address [facility] Co de Phone Number [facility] ([place]) [address] [place] [address] * (ABNORMAL) Pro B-type natriuretic peptide (04/14/2019 7:37 PM CDT) NT-proBNP 1,697(H) <=300 pg/mL [facility] ([place]) Comment: Interpretive Comments: A. Dyspnea in [...] Interpretive Data Last Revised Date: 2018. Blood specimen (specimen) 04/14/2019 7:37 PM CDT 04/14/2019 7:41 PM CDT us Colt Ortiz MD LAB BLOOD ORDERABLES Final R esult [facility] [place] [address] [place] [address] * Blood gas, venous (04/14/2019 7:37 PM CDT) pH, Venous 7.39 7.32 - 7.43 [facility] ([place]) PCO2, Venous 44 40 - 50 mmHg [facility] ([place]) PO2, Venous 39 mmHg [facility] ([place]) Comment: Interpretive Data No Reference Range Established Current Interpretive Data was last revised on 2017. HCO3 Venous, Calculated 26 20 - 30 mmol/L [facility] ([place]) BE, venous 1 mmol/L [facility] ([place]) Comment: Interpretive Data No Reference Range Established Current Interpretive Data was last revised on 2017. Blood specimen (specimen) 04/14/2019 7:37 PM CDT 04/14/2019 7:41 PM CDT us Colt Ortiz MD LAB BLOOD ORDERABLES Final R esult [facility] ([place]) [address] [place] [id number] * (ABNORMAL) Comprehensive metabolic panel (04/14/2019 7:37 PM CDT) Sodium 133(L) 135 - 145 mmol/L [facility] ([place]) Potassium, pl 4.3 3.3 - 4.9 mmol/L [facility] ([place]) Chloride 98 97 - 110 mmol/L [facility] ([place]) CO2 25 22 - 32 mmol/L [facility] ([place]) Anion gap 10 2 - 15 mmol/L [facility] ([place]) BUN 23 8 - 25 mg/dL [facility] ([place]) Creatinine 0.64 0.60 - 1.10 mg/dL [facility] ([place]) Glucose 98 70 - 199 mg/dL [facility] ([place]) Comment: Interpretive Data [...] interpretive data was last revised 2017. Calcium 9.8 8.5 - 10.3 mg/dL [facility] ([place]) Bilirubin, total 0.9 0.1 - 1.2 mg/dL [facility] ([place]) Protein, pl 6.9 6.5 - 8.5 g/dL [facility] ([place]) Albumin 3.4(L) 3.5 - 5.0 g/dL [facility] ([place]) Alk phos 126 40 - 130 Units/L [facility] ([place]) ALT 21 7 - 45 Units/L [facility] ([place]) AST 19 10 - 45 Units/L [facility] ([place]) Blood specimen (specimen) 04/14/2019 7:37 PM CDT 04/14/2019 7:41 PM CDT us Colt Ortiz MD LAB BLOOD ORDERABLES Final R esult [facility] ([place]) [address] [place] [address] * (ABNORMAL) CBC with auto differential (04/14/2019 7:37 PM CDT) WBC 15.5(H) 3.8 - 9.9 K/cumm [facility] ([place]) Hgb 12.5 11.9 - 15.5 g/dL [facility] ([place]) Hct 37.2 35.6 - 45.5 % [facility] ([place]) Plt 211 150 - 400 K/cumm [facility] ([place]) MPV 8.9(L) 9.1 - 12.3 fL [facility] ([place]) RBC 4.05 3.90 - 5.20 M/cumm [facility] ([place]) MCV 91.9 81.3 - 96.4 fL [facility] ([place]) MCH 30.9 27.1 - 33.3 pg [facility] ([place]) MCHC 33.6 32.3 - 35.7 g/dL [facility] ([place]) RDW CV 14.5 11.1 - 14.9 % [facility] ([place]) RDW SD 49.1(H) 35.7 - 48.1 fL [facility] ([place]) NRBC abs 0.00 0.00 - 0.01 K/cumm [facility] ([place]) Blood specimen (specimen) 04/14/2019 7:37 PM CDT 04/14/2019 7:41 PM CDT Colt Ortiz MD LAB BLOOD ORDERABLES Final R esult Performing Organization Address City/[facility] Co de Phone Number [facility] ([place]) [address] [place] [address] * ECG 12 lead (04/14/2019 7:25 PM CDT) 04/14/2019 7:25 PM CDT Narrative [facility] - 04/16/2019 8:28 AM CDT Vent Rate: 74 bpm RR Interval: 803 msec MA Interval: 191 msec QRS Duration: 107 msec QT Interval: 400 msec QTC Interval: 428 msec P-R-T [place]: 68 - 18 - 30 degrees SINUS RHYTHM POSSIBLE LEFT ATRIAL ENLARGEMENT ??[-0.1mV P WAVE IN V1/V2] BORDERLINE ECG Compared to the prior ECG, rate is now slower. Electronically Signed By: Dr Roly Husain Colt Ortiz MD ECG ORDERABLES Final Result Performing Organization Address [facility] de Phone Number [facility] [employer] [facility] documented in this encounter Visit Diagnoses Diagnosis Cellulitis of left lower extremity- Primary Cellulitis of left lower extremity Failure to thrive in adult Adult failure to thrive Elevated brain natriuretic peptide (BNP) level Iron deficiency anemia due to chronic blood loss Iron deficiency anemia secondary to blood loss (chronic) documented in this encounter Administered Medications Inactive Administered Medications - up to 3 most recent administrations Medication Order MAR Action Action Date Dose Rate Site acetaminophen (TYLENOL) tablet 650 mg 650 mg, oral, Every 4 hours PRN, headaches, fever, Starting on Tue04/18/19 at 0252 Given 04/18/2019 9:01 PM CDT 650 mg albuterol (PROVENTIL,VENTOLIN) 2.5 mg /3 mL (0.083 %) nebulizer solution 2.5 mg 2.5 mg, nebulization, Every 6 hours PRN (correspondence transcriber), wheezing, Starting on Tue04/16/19 at 1525 Given 04/16/2019 3:28 PM CDT 2.5 mg amoxicillin-clavulanate (AUGMENTIN) 875-125 mg per tablet 875 mg of amoxicillin 875 mg of amoxicillin, oral, 2 times daily, First dose on Tue04/17/19 at 0900, Indications: Skin/Soft Tissue InfectionIndications:Sk in/Soft Tissue Infection Given 04/19/2019 10:17 AM CDT 875 mg of amoxicillin Given 04/18/2019 9:04 PM CDT 875 mg of amoxicillin Given 04/18/2019 9:53 AM CDT 875 mg of amoxicillin Bifidobacterium infantis (ALIGN) capsule 4 mg 4 mg, oral, Daily, First dose on Tue04/17/19 at 0900 Given 04/19/2019 10:17 AM CDT 4 mg Given 04/18/2019 9:54 AM CDT 4 mg Given 04/17/2019 11:41 AM CDT 4 mg bisacodyl EC (DULCOLAX EC) tablet 10 mg 10 mg, oral, Daily PRN, constipation, If no results 24 hours after milk of magnesia, Starting on Tue04/18/19 at 0252, Do not crush, chew, cut, dissolve, open or otherwise manipulate tablet/capsule. budesonide-formoterol (SYMBICORT) 160-4.5 mcg/actuation inhaler 2 puff 2 puff, inhalation, 2 times daily (correspondence transcriber), First dose on Tue04/15/19 at 2000, This therapy was substituted forAdvair 250-50 mcg* per protocol. Rinse mouth with water after use. Do not swallow. Given 04/19/2019 7:56 AM CDT 2 puffs Given 04/18/2019 7:36 PM CDT 2 puffs Given 04/18/2019 7:52 AM CDT 2 puffs buPROPion SR (WELLBUTRIN SR) 12 hour tablet 150 mg 150 mg, oral, 2 times daily, First dose on Tue04/15/19 at 1500, This therapy was substituted for Zyban 150 mg po q12 hrs per protocol. Do not crush, chew, cut, dissolve, open or otherwise manipulate tablet/capsule. Given 04/19/2019 10:17 AM CDT 150 mg Given 04/18/2019 9:15 PM CDT 150 mg Given 04/18/2019 9:54 AM CDT 150 mg ceFAZolin (ANCEF) 2,000 mg/20 mL in sterile water (premix) 2,000 mg 2,000 mg, intravenous, at 400 mL/hr, Administer over 3 Minutes, Every 8 hours scheduled, First dose (after last modification) on 04/14/19 at 2100, Dose of cefazolin adjusted per protocol for CrCl=>35 ml/min (CrCl=51 ml/min) and weight >80 kg, Indications: Skin/Soft Tissue InfectionIndications:Skin/Soft Tissue Infection New Bag 04/17/2019 5:18 AM CDT 2,000 mg 400 mL/hr New Bag 04/16/2019 9:27 PM CDT 2,000 mg 400 mL/hr New Bag 04/16/2019 1:42 PM CDT 2,000 mg 400 mL/hr chlorthalidone tablet 25 mg 25 mg, oral, Daily, First dose on 04/15/19 at 1400 Given 04/18/2019 9:55 AM CDT 25 mg Given 04/17/2019 8:47 AM CDT 25 mg Given 04/16/2019 9:21 AM CDT 25 mg cloNIDine (CATAPRES) tablet 0.1 mg 0.1 mg, oral, 2 times daily, First dose on 04/15/19 at 1400 Given 04/19/2019 10:17 AM CDT 0.1 mg Given 04/18/2019 9:01 PM CDT 0.1 mg Given 04/18/2019 9:55 AM CDT 0.1 mg dilTIAZem XR (CARDIZEM CD,DILACOR XR) 24 hour capsule 240 mg 240 mg, oral, Daily, First dose on 04/15/19 at 1400, Do not crush, chew, cut, dissolve, open or otherwise manipulate tablet/capsule. Given 04/17/2019 8:47 AM CDT 240 mg Given 04/16/2019 9:20 AM CDT 240 mg Given 04/15/2019 2:31 PM CDT 240 mg enoxaparin (LOVENOX) syringe 40 mg 40 mg, subcutaneous, Every 12 hours scheduled, First dose (after last modification) on 9/15/19 at 2100, Dose of enoxaparin adjusted per protocol for bariatric VTE prophylaxis, CrCl > 30 ml/min, BMI>40, and weight >100 kg (CrCl=51 ml/min, BMI=71.33 kg/m2, qa=479.9 Kg)Estimated Creatinine Clearance: 51 mL/min (by C-G formula based on SCr of 0.71 mg/dL)., Indications: Deep Vein Thrombosis PreventionIndications:Deep Vein Thrombosis Prevention Given 04/19/2019 10:17 AM CDT 40 mg Right Upper Abdomen Given 04/18/2019 9:01 PM CDT 40 mg Ri ght Upper Abdomen Given 04/18/2019 10:01 AM CDT 40 mg L eft Upper Abdomen ferrous sulfate tablet 325 mg 325 mg (65 mg of elemental iron), oral, 2 times daily with meals (bkfst, dinner), First dose on Tue04/18/19 at 1800, Indications: Iron Deficiency AnemiaIndications:Iron Deficiency Anemia Given 04/19/2019 10:18 AM CDT 32 5 mg Given 04/18/2019 5:35 PM CDT 325 mg FLUoxetine (PROzac) capsule 40 mg 40 mg, oral, Daily, First dose on Tue04/15/19 at 1400 Given 04/19/2019 10:17 AM CDT 40 mg Given 04/18/2019 10:02 AM CDT 40 mg Given 04/17/2019 8:46 AM CDT 40 mg furosemide (LASIX) 10 mg/mL injection 20 mg 20 mg, intravenous, Administer over 1 Minutes, Every 12 hours scheduled, First dose on Tue04/14/19 at 2100, Room temperature only Given 04/14/2019 9:16 PM CDT 20 mg furosemide (LASIX) 10 mg/mL injection 20 mg 20 mg, intravenous, Administer over 1 Minutes, Every 12 hours, First dose (after last modification) on Tue04/15/19 at 0600, Room temperature only Given 04/18/2019 5:22 AM CDT 20 mg Given 04/17/2019 5:25 PM CDT 20 mg Given 04/17/2019 5:19 AM CDT 20 mg furosemide (LASIX) tablet 20 mg 20 mg, oral, 2 times daily (for diuretics), First dose on Tue04/18/19 at 1800 Given 04/19/2019 10:17 AM CDT 20 mg Given 04/18/2019 5:35 PM CDT 20 mg heparin 5,000 unit/mL injection 7,500 Units 7,500 Units, subcutaneous, Every 8 hours scheduled, First dose on Tue04/14/19 at 2300, Indications: Deep Vein Thrombosis PreventionIndications:Deep Vein Thrombosis Prevention Given 04/15/2019 5:08 AM CDT 7,500 Units Right Lower Abdomen Given 04/14/2019 11:10 PM CDT 7,500 Units Right Lower Abdomen HYDROcodone-acetaminophen (NORCO) 5-325 mg per tablet 1 tablet 1 tablet, oral, Once, On 04/14/19 at 2023, For 1 dose, Indications: PainIndications:Pain Given 04/14/2019 8:33 PM CDT 1 tablet ibuprofen (ADVIL,MOTRIN) tablet 400 mg 400 mg, oral, Every 6 hours PRN, 1st line for pain, headaches, Starting on Tue04/14/19 at 2350 Given 04/14/2019 11:56 PM CDT 400 mg losartan (COZAAR) tablet 100 mg 100 mg, oral, Daily, First dose on Tue04/18/19 at 1000 Given 04/19/2019 10:17 AM CDT 100 mg Given 04/18/2019 10:03 AM CDT 100 mg magnesium hydroxide (MILK OF MAGNESIA) 80 mg/mL (33.3 mg/mL as elemental magnesium) oral suspension 30 mL 30 mL, oral, Daily PRN, constipation, Starting on Tue04/18/19 at 0252 mineral oil (FLEET MINERAL OIL) enema 1 enema 1 enema, rectal, Daily PRN, constipation, if no results 24 hours after bisacodyl, Starting on Tue04/18/19 at 0252, Indications: constipationIndications:constipation morphine injection 2 mg 2 mg, intravenous, Administer over 4 Minutes, Every 3 hours PRN, 1st line for pain, Starting on Tue04/14/19 at 2244, May repeat in 30 minutes if pain is uncontrolled or increasing. Max 2 doses within 1 dosing interval. Administer via slow IV push over 4 to 5 minutes (rapid administration may result in chest wall rigidity), , Indications: PainIndications:Pain Given 04/18/2019 1: 14 PM CDT 2 mg Given 04/17/2019 7:58 PM CDT 2 mg Given 04/17/2019 2:32 PM CDT 2 mg ondansetron (ZOFRAN) injection 4 mg 4 mg, intravenous, Administer over 2 Minutes, Every 6 hours PRN, nausea, vomiting, if not tolerating PO, Starting on 04/14/19 at 2244, Give IV push over at least 2 minutes., , Indications: Nausea and VomitingIndications:Nausea and Vomiting Given 04/15/2019 9:09 AM CDT 4 mg ondansetron ODT (ZOFRAN-ODT) disintegrating tablet 4 mg 4 mg, oral, Every 6 hours PRN, nausea, vomiting, Starting on 04/14/19 at 2244, Indications: Nausea and VomitingIndications:Nausea and Vomiting polyethylene glycol (MIRALAX) packet 17 g 17 g, oral, Daily, First dose on Tue04/15/19 at 1400, Indications: constipationIndications:constipation Given 04/16/2019 9:20 AM CDT 17 g Given 04/15/2019 2:54 PM CDT 17 g senna-docusate (PERICOLACE) 8.6-50 mg per tablet 1 tablet 1 tablet, oral, 2 times daily, First dose on 04/15/19 at 1400 Given 04/18/2019 9:01 PM CDT 1 tablet Given 04/18/2019 10:04 AM CDT 1 tablet Given 04/17/2019 9:39 PM CDT 1 tablet sodium chloride 0.9% flush 0.5-20 mL 0.5-20 mL, intra-catheter, Every 8 hours, First dose on Tue04/18/19 at 0600, Flush volume based on line type and size. Given 04/18/2019 9:16 PM CDT 10 mL Given 04/18/2019 1:15 PM CDT 10 mL Given 04/18/2019 5:22 AM CDT 10 mL sodium chloride 0.9% flush 0.5-20 mL 0.5-20 mL, intra-catheter, As needed, line care, Starting on Tue04/18/19 at 0252, Flush volume based on line type and size. Flush before and after each use. documented in this encounter Discontinued Medications Medication Sig Discontinue Reason Start Date End Da te dilTIAZem XR (CARDIZEM CD,DILACOR XR) 240 mg 24 hr capsule Take 1 capsule (240 mg total) by mouth daily. Stop Taking at Discharge 03/14/2018 04/19/2019 WIXELA INHUB 250-50 mcg/dose diskus inhaler INHALE 1 PUFF BY MOUTH TWICE DAILY Stop Taking at Discharge 02/12/2019 04/19/2019 dilTIAZem XR (DILT-XR) 240 mg 24 hr capsule Take 1 capsule (240 mg total) by mouth daily Stop Taking at Discharge 03/06/2019 04/19/2019 chlorthalidone 25 mg tablet Take 1 tablet (25 mg total) by mouth daily Stop Taking at Discharge 03/06/2019 04/19/2019 documented as of this encounter Active and Recently Administered Medications Times are shown in CDT. Scheduled Medication Order 04/17/2019 04/18/2019 04/19/2019 amoxicillin-clavulanate (AUGMENTIN) 875-125 mg per tablet 875 mg of amoxicillin 875 mg of amoxicillin, oral, 2 times daily, First dose on Tue04/17/19 at 0900, Indications: Skin/Soft Tissue Infection 1141 (Given - Provider: Pavithra Quach RN)2139 (Given - Provider: Brenda Valle RN) 0953 (Given - Provider: Tiffany Moncada, BREA)2104 (Given - Provider: Brenda Valle RN) 1017 (Given - Provider: Aide Marshall, BREA) Bifidobacterium infantis (ALIGN) capsule 4 mg 4 mg, oral, Daily, First dose on Tue04/17/19 at 0900 1141 (Given - Provider: Pavithra Quach RN) 0954 (Given - Provider: Tiffany Moncada, BREA) 1017 (Given - Provider: Aide Marshall, BREA) budesonide-formoterol (SYMBICORT) 160-4.5 mcg/actuation inhaler 2 puff 2 puff, inhalation, 2 times daily (correspondence transcriber), First dose on Tue04/15/19 at 2000, This therapy was substituted forAdvair 250-50 mcg* per protocol. Rinse mouth with water after use. Do not swallow. 0751 (Given - Provider: Kady Barrios, JOHN)191 (Given - Provider: Solitario Cintron RRT) 0752 (Given - Provider: Kady Barrios, FORM RAISER)193 (Given - Provider: Olga Bustillo, FORM RAISER) 075 (Given - Provider: Marianna Mansfield, JOHN) buPROPion SR (WELLBUTRIN SR) 12 hour tablet 150 mg 150 mg, oral, 2 times daily, First dose on 04/15/19 at 1500, This therapy was substituted for Zyban 150 mg po q12 hrs per protocol. Do not crush, chew, cut, dissolve, open or otherwise manipulate tablet/capsule. 0846 (Given - Provider: Pavithra Quach, BREA)2138 (Given - Provider: Brenda Valle, BREA) 09 (Given - Provider: Tiffany Moncada, BREA)2114 (Given - Provider: Brenda Valle, BREA) 1017 (Given - Provider: Aide Marshall, BREA) ceFAZolin (ANCEF) 2,000 mg/20 mL in sterile water (premix) 2,000 mg (CANCELED) 2,000 mg, intravenous, at 400 mL/hr, Administer over 3 Minutes, Every 8 hours scheduled, First dose (after last modification) on 04/14/19 at 2100, Dose of cefazolin adjusted per protocol for CrCl=>35 ml/min (CrCl=51 ml/min) and weight >80 kg, Indications: Skin/Soft Tissue Infection 0518 (New Bag - Provider: Melodie Alexis, BREA) chlorthalidone tablet 25 mg (CANCELED) 25 mg, oral, Daily, First dose on 04/15/19 at 1400 0847 (Given - Provider: Pavithra Quach RN) 0955 (Given - Provider: Tiffany Moncada, BREA) cloNIDine (CATAPRES) tablet 0.1 mg 0.1 mg, oral, 2 times daily, First dose on 04/15/19 at 1400 0848 (Given - Provider: Pavithra Quach RN)2141 (Not Given - Provider: Brenda Valle RN - Reason: Order parameters not met) 09 (Given - Provider: Tiffany Moncada, BREA)2100 (Given - Provider: Brenda Valle RN) 1017 (Given - Provider: Aide Marshall, BREA) dilTIAZem XR (CARDIZEM CD,DILACOR XR) 24 hour capsule 240 mg (CANCELED) 240 mg, oral, Daily, First dose on Tue04/15/19 at 1400, Do not crush, chew, cut, dissolve, open or otherwise manipulate tablet/capsule. 0847 (Given - Provider: Pavithra Quach RN) enoxaparin (LOVENOX) syringe 40 mg 40 mg, subcutaneous, Every 12 hours scheduled, First dose (after last modification) on Tue04/15/19 at 2100, Dose of enoxaparin adjusted per protocol for bariatric VTE prophylaxis, CrCl > 30 ml/min, BMI>40, and weight >100 kg (CrCl=51 ml/min, BMI=71.33 kg/m2, ze=852.9 Kg)Estimated Creatinine Clearance: 51 mL/min (by C-G formula based on SCr of 0.71 mg/dL)., Indications: Deep Vein Thrombosis Prevention 0848 (Given - Provider: Pavithra Quach RN)213 (Given - Provider: Brenda Valle RN) 100 (Given - Provider: Tiffany Moncada RN - Comment: pt with therapy earlier)2100 (Given - Provider: Brenda Valle RN) 1017 (Given - Provider: Aide Marshall, BREA) ferrous sulfate tablet 325 mg 325 mg (65 mg of elemental iron), oral, 2 times daily with meals (bkfst, dinner), First dose on Tue04/18/19 at 1800, Indications: Iron Deficiency Anemia 1735 (Given - Provider: Pavithra Quach RN) 1018 (Given - Provider: Aide Marshall, BREA) FLUoxetine (PROzac) capsule 40 mg 40 mg, oral, Daily, First dose on Tue04/15/19 at 1400 0846 (Given - Provider: Pavithra Quach RN) 1002 (Given - Provider: Tiffany Moncada, BREA) 1017 (Given - Provider: Aide Marshall, BREA) furosemide (LASIX) 10 mg/mL injection 20 mg (CANCELED) 20 mg, intravenous, Administer over 1 Minutes, Every 12 hours, First dose (after last modification) on Tue04/15/19 at 0600, Room temperature only 0519 (Given - Provider: Melodie Alexis, BREA)1725 (Given - Provider: Pavithra Quach RN) 0522 (Given - Provider: Brenda Valle RN) furosemide (LASIX) tablet 20 mg 20 mg, oral, 2 times daily (for diuretics), First dose on Tue04/18/19 at 1800 1735 (Given - Provider: Pavithra Quach RN) 1017 (Given - Provider: Aide Marshall, BREA) losartan (COZAAR) tablet 100 mg 100 mg, oral, Daily, First dose on Tue04/18/19 at 1000 1003 (Given - Provider: Tiffany Moncada, BREA) 1017 (Given - Provider: Aide Marshall, BREA) polyethylene glycol (MIRALAX) packet 17 g 17 g, oral, Daily, First dose on 04/15/19 at 1400, Indications: constipation 0839 (Not Given - Provider: Pavithra Quach RN - Reason: Patient/family refused) 1003 (Not Given - Provider: Tiffany Moncada RN - Reason: Patient/family refused) 1016 (Not Given - Provider: Aide Marshall RN - Reason: Other) senna-docusate (PERICOLACE) 8.6-50 mg per tablet 1 tablet 1 tablet, oral, 2 times daily, First dose on Tue04/15/19 at 1400 0847 (Given - Provider: Pavithra Quach RN)2139 (Given - Provider: Brenda Valle RN) 1004 (Given - Provider: Tiffany Moncada, BREA)2101 (Given - Provider: Brenda Valle RN) 1016 (Not Given - Provider: Aide Marshall RN - Reason: Other) sodium chloride 0.9% flush 0.5-20 mL 0.5-20 mL, intra-catheter, Every 8 hours, First dose on Tue04/18/19 at 0600, Flush volume based on line type and size. 0522 (Given - Provider: Brenda Valle RN)1315 (Given - Provider: Pavithra Quach RN)2116 (Given - Provider: Brenda Valle RN) 0512 (Not Given - Provider: Brenda Valle RN - Reason: Other) PRN Medication Order 04/17/2019 04/18/2019 04/19/2019 acetaminophen (TYLENOL) tablet 650 mg 650 mg, oral, Every 4 hours PRN, headaches, fever, Starting on Tue04/18/19 at 0252 2101 (Given - Provider: Brenda Valle RN) albuterol (PROVENTIL,VENTOLIN) 2.5 mg /3 mL (0.083 %) nebulizer solution 2.5 mg 2.5 mg, nebulization, Every 6 hours PRN (correspondence transcriber), wheezing, Starting on 04/16/19 at 1525 bisacodyl EC (DULCOLAX EC) tablet 10 mg 10 mg, oral, Daily PRN, constipation, If no results 24 hours after milk of magnesia, Starting on Tue04/18/19 at 0252, Do not crush, chew, cut, dissolve, open or otherwise manipulate tablet/capsule. ibuprofen (ADVIL,MOTRIN) tablet 400 mg 400 mg, oral, Every 6 hours PRN, 1st line for pain, headaches, Starting on 04/14/19 at 2350 magnesium hydroxide (MILK OF MAGNESIA) 80 mg/mL (33.3 mg/mL as elemental magnesium) oral suspension 30 mL 30 mL, oral, Daily PRN, constipation, Starting on Tue04/18/19 at 0252 mineral oil (FLEET MINERAL OIL) enema 1 enema 1 enema, rectal, Daily PRN, constipation, if no results 24 hours after bisacodyl, Starting on Tue04/18/19 at 0252, Indications: constipation morphine injection 2 mg 2 mg, intravenous, Administer over 4 Minutes, Every 3 hours PRN, 1st line for pain, Starting on 04/14/19 at 2244, May repeat in 30 minutes if pain is uncontrolled or increasing. Max 2 doses within 1 dosing interval. Administer via slow IV push over 4 to 5 minutes (rapid administration may result in chest wall rigidity), , Indications: Pain 0327 (Given - Provider: Melodie Alexis RN)1432 (Given - Provider: Pavithra Quach RN)1958 (Given - Provider: Brenda Valle RN - Comment: right leg) 1314 (Given - Provider: Pavithra Quach RN) ondansetron (ZOFRAN) injection 4 mg(Linked Group 1) 4 mg, intravenous, Administer over 2 Minutes, Every 6 hours PRN, nausea, vomiting, if not tolerating PO, Starting on 04/14/19 at 2244, Give IV push over at least 2 minutes., , Indications: Nausea and Vomiting ondansetron ODT (ZOFRAN-ODT) disintegrating tablet 4 mg(Linked Group 1) 4 mg, oral, Every 6 hours PRN, nausea, vomiting, Starting on 04/14/19 at 2244, Indications: Nausea and Vomiting senna-docusate (PERICOLACE) 8.6-50 mg per tablet 1 tablet 1 tablet, oral, 2 times daily PRN, constipation, Starting on 04/14/19 at 2244, Indications: constipation 1016 (Not Given - Provider: Aide Marshall RN - Reason: Patient/family refused) sodium chloride 0.9% flush 0.5-20 mL 0.5-20 mL, intra-catheter, As needed, line care, Starting on 04/18/19 at 0252, Flush volume based on line type and size. Flush before and after each use. Linked Groups Order Group 1: ondansetron ODT (ZOFRAN-ODT) disintegrating tablet 4 mgJump to med 4 mg, oral, Every 6 hours PRN, nausea, vomiting, Starting on 04/14/19 at 2244, Indications: Nausea and Vomiting Or ondansetron (ZOFRAN) injection 4 mgJump to med 4 mg, intravenous, Administer over 2 Minutes, Every 6 hours PRN, nausea, vomiting, if not tolerating PO, Starting on 04/14/19 at 2244, Give IV push over at least 2 minutes., , Indications: Nausea and Vomiting documented in this encounter Orders Medications Ordered That Fitz ht Not Have Been Administered Count Last Ordered Date First Ordered Date bisacodyl EC (DULCOLAX EC) tablet 10 mg 1 0 04/18/2019 magnesium hydroxide (MILK OF MAGNESIA) 80 mg/mL (33.3 mg/mL as elemental magnesium) oral suspension 30 mL 1 04/18/2019 mineral oil (FLEET MINERAL O IL) enema 1 enema 1 04/18/2019 sodium chloride 0.9% flush 0.5-20 mL 1 04/01 amoxicillin (AMOXIL) tablet/ capsule 1,000 mg 1 04/17/2019 ipratropium-albuterol (DUO-N EB) 0.5-2.5 mg/3 mL nebulizer solution 3 mL 1 04/16/2019 buPROPion SR (ZYBAN) 12 hour tablet 150 mg 1 04/15/2019 enoxaparin (LOVENOX) syringe 30 mg 1 2018 enoxaparin (LOVENOX) syringe 40 mg 1 2018 fluticasone propion-salmeter ol (ADVAIR DISKUS) 250-50 mcg/dose diskus inhaler 1 puff 1 04/15/2019 ceFAZolin (ANCEF) 1 gram/10 mL in sterile water (premix) 1,000 mg 1 04/14/2019 ondansetron ODT (ZOFRAN-ODT) disintegrating tablet 4 mg 1 04/14/2019 senna-docusate (PERICOLACE) 8.6-50 mg per tablet 1 tablet 1 04/14/2019 Nursing Count Last Ordered Date First Orde red Date CARDIO RESPIRATORY MONITORING 1 04/14/2019 CONTINUOUS PULSE OXIMETRY 1 04/14/2019 IV Count Last Ordered Date First Orde red Date INSERT PERIPHERAL IV 1 04/14/2019 ADT Patient Update Count Last Ordered Date Firs t Ordered Date ED IP DECISION TO ADMIT 1 04/14/2019 documented in this encounter Care Teams Television Specialist Relationship Specialty Start Date End Date Breanna Boston MD PCP - General 10/29/16 03/14/22 documented as of this encounter
--- OUTSIDE RECORDS SUMMARY | 2024-08-13 05:23 | XMS_ITS | Encounter Summary ---
Author Organization [facility] Medical Group Address [address] [place] [address] Care Team Providers Care Hose Inspector And Patcher Name Role Phone Jarvis Boston MD Primary Care [facility] Encounter Details Date Type Department Care Team (Late st Contact Info) Description 05/23/2019 Telephone [facility] [address] [place] [address] [address] [place] [address] [place] [address] Social History Tobacco Use Types Packs/Day Years Used Date Smoking Tobacco: Never Smokeless Tobacco: Never Alcohol Use Standard Drinks/Week Comments Not Currently 0 (1 standard drink = 0.6 oz pur e alcohol) no recently PHQ-2 Answer Date Recorded PHQ-2 Score 4 04/14/2019 Comments Unknown Sex and Gender Information Value Date Recorded Sex Assigned at Not on file Legal Sex Female 11:52 PM FIRE OPERATIONS FORESTER Gender Identity Female 09/15/2022 2:42 PM FIRE OPERATIONS FORESTER Sexual Orientation Straight 09/15/2022 2: 42 PM FIRE OPERATIONS FORESTER documented as of this encounter Miscellaneous Notes * Telephone Encounter - Silvina Fishman MA - 05/24/2019 8:32 AM CDT Referral entered and faxed to number below. Francesco (on HIPAA) is aware. * Telephone Encounter - Jarvis Boston MD - 05/23/2019 6:22 PM CDT lymph edema * Telephone Encounter - Silvina Fishman MA - 05/23/2019 4:45 PM CDT Dx for lymphedema clinic referral? * Telephone Encounter - Jarvis Boston MD - 05/23/2019 10:37 AM CDT I don't Care where goes but it wasn't nikia as did not know they had it. But referral to lymphedema clinlic where can go to * Telephone Encounter - Berenice Aguilar MA - 05/23/2019 9:38 AM CDT jw * Telephone Encounter - Linette Adams - 05/23/2019 9:27 AM CDT Pt saw JW while she was admitted to [facility]--d/c 04/19/19. pts states JW recommended pt go to [facility] for lymphedema. They will not see pt without an order. Would like order to be faxed to [phone] documented in this encounter Plan of Treatment Not on file documented as of this encounter Visit Diagnoses Not on filedocumented in this encounter Care Teams Hose Inspector And Patcher Relationship Specialty Start Date End Date Jarvis Boston MD PCP - General 10/29/16 03/14/22 documented as of this encounter
--- OUTSIDE RECORDS SUMMARY | 2024-08-13 05:23 | XMS_ITS | Encounter Summary ---
Author Organization [facility] Medical Group Address [address] [place] [address] Care Team Providers Care Working Second Hand Name Role Phone Jarvis Boston MD Primary Care [facility] Encounter Details Date Type Department Care Team (Late st Contact Info) Description 01/02/2020 Orders Only [facility] [address] [place] [id number] Cayetano Chawla PA [address] [facility] [address] [place] [address] Essential hypertension (Primary Dx); IFG (impaired fasting glucose) Social History Tobacco Use Types Packs/Day Years Used Date Smoking Tobacco: Never Smokeless Tobacco: Never Alcohol Use Standard Drinks/Week Comments Not Currently 0 (1 standard drink = 0.6 oz pur e alcohol) no recently PHQ-2 Answer Date Recorded PHQ-2 Score 0 07/09/2019 Comments Unknown Sex and Gender Information Value Date Recorded Sex Assigned at Not on file Legal Sex Female 11:52 PM QUALITY CONTROL TECHNICIAN Gender Identity Female 09/15/2022 2:42 PM QUALITY CONTROL TECHNICIAN Sexual Orientation Straight 09/15/2022 2: 42 PM QUALITY CONTROL TECHNICIAN documented as of this encounter Plan of Treatment Scheduled Orders Name Type Priority Associated Diagnoses Orde r Schedule Lipid panel Lab Routine Essential hypertension Expected: 01/02/2020, Expires: 01/01/2021 Hemoglobin A1c Lab Routine IFG (impaired fasting glucose) 1 Occurrences starting 01/03/2020 until 01/01/2021 Comprehensive metabolic panel Lab Routine Essential hypertension 1 Occurrences starting 01/03/2020 until 01/01/2021 documented as of this encounter Visit Diagnoses Diagnosis Essential hypertension- Primary Unspecified essential hypertension IFG (impaired fasting glucose) documented in this encounter Care Teams Working Second Hand Relationship Specialty Start Date End Date Jarvis Boston MD PCP - General 10/29/16 03/14/22 documented as of this encounter
--- OUTSIDE RECORDS SUMMARY | 2024-08-13 05:23 | XMS_ITS | Encounter Summary ---
Author Organization [facility] Facility Care Team Providers Care Agile Business Analyst Name Role Phone Jarvis Boston MD Primary Care [facility] Encounter Details Date Type Department Care Team (Latest Contact Info) Description 09/10/2019 Travel Social History Tobacco Use Types Packs/Day Years Used Date Smoking Tobacco: Never Smokeless Tobacco: Never Alcohol Use Standard Drinks/Week Comments Not Currently 0 (1 standard drink = 0.6 oz pur e alcohol) no recently PHQ-2 Answer Date Recorded PHQ-2 Score 0 07/09/2019 Comments Unknown Sex and Gender Information Value Date Recorded Sex Assigned at Not on file Legal Sex Female 11:52 PM LOADER MACHINE Gender Identity Female 09/15/2022 2:42 PM LOADER MACHINE Sexual Orientation Straight 09/15/2022 2: 42 PM LOADER MACHINE documented as of this encounter Plan of Treatment Not on file documented as of this encounter Visit Diagnoses Not on filedocumented in this encounter Care Teams Agile Business Analyst Relationship Specialty Start Date End Date Jarvis Boston MD PCP - General 10/29/16 03/14/22 documented as of this encounter
--- OUTSIDE RECORDS SUMMARY | 2024-08-13 05:23 | XMS_ITS | Encounter Summary ---
Author Organization [facility] Medical Group Address [address] [place] [address] Care Team Providers Care Coremaker Bench Name Role Phone Jarvis Boston MD Primary Care Pro[facility] Reason for Visit * Reason Comments Left Message Encounter Details Date Type Department Care Team (Late st Contact Info) Description 05/29/2019 ACO Outreach [facility] Accountable Care Organization [address] [place] [address] Mili Li, [address] [address] Social History Tobacco Use Types Packs/Day Years Used Date Smoking Tobacco: Never Smokeless Tobacco: Never Alcohol Use Standard Drinks/Week Comments Not Currently 0 (1 standard drink = 0.6 oz pur e alcohol) no recently PHQ-2 Answer Date Recorded PHQ-2 Score 4 04/14/2019 Comments Unknown Sex and Gender Information Value Date Recorded Sex Assigned at Not on file Legal Sex Female 11:52 PM CODING SUPPORT SPECIALIST Gender Identity Female 09/15/2022 2:42 PM CODING SUPPORT SPECIALIST Sexual Orientation Straight 09/15/2022 2: 42 PM CODING SUPPORT SPECIALIST documented as of this encounter Plan of Treatment Not on file documented as of this encounter Visit Diagnoses Not on filedocumented in this encounter Care Teams Coremaker Bench Relationship Specialty Start Date End Date Jarvis Boston MD PCP - General 10/29/16 03/14/22 documented as of this encounter
--- OUTSIDE RECORDS SUMMARY | 2024-08-13 05:23 | XMS_ITS | Encounter Summary ---
Author Organization [facility] Facility Care Team Providers Care Hockey Instructor Name Role Phone Jarvis Boston MD Primary Care [facility] Encounter Details Date Type Department Care Team (Latest Contact Info) Description 09/03/2019 Travel Social History Tobacco Use Types Packs/Day Years Used Date Smoking Tobacco: Never Smokeless Tobacco: Never Alcohol Use Standard Drinks/Week Comments Not Currently 0 (1 standard drink = 0.6 oz pur e alcohol) no recently PHQ-2 Answer Date Recorded PHQ-2 Score 0 07/09/2019 Comments Unknown Sex and Gender Information Value Date Recorded Sex Assigned at Not on file Legal Sex Female 11:52 PM CORE LAYING MACHINE OPERATOR Gender Identity Female 09/15/2022 2:42 PM CORE LAYING MACHINE OPERATOR Sexual Orientation Straight 09/15/2022 2: 42 PM CORE LAYING MACHINE OPERATOR documented as of this encounter Plan of Treatment Not on file documented as of this encounter Visit Diagnoses Not on filedocumented in this encounter Care Teams Hockey Instructor Relationship Specialty Start Date End Date Jarvis Boston MD PCP - General 10/29/16 03/14/22 documented as of this encounter
--- OUTSIDE RECORDS SUMMARY | 2024-08-13 05:23 | XMS_ITS | Encounter Summary ---
Author Organization [facility] Medical Group Address [address] [place] [address] Care Team Providers Care Covering Machine Tender Name Role Phone Jarvis Boston MD Primary Care Provi [facility] Encounter Details Date Type Department Care Team (Late st Contact Info) Description 01/02/2020 Telephone [facility] [address] [place] [address] Cayetano Chawla PA [address] [facility] [address] [place] [address] Social History Tobacco Use Types Packs/Day Years Used Date Smoking Tobacco: Never Smokeless Tobacco: Never Alcohol Use Standard Drinks/Week Comments Not Currently 0 (1 standard drink = 0.6 oz pur e alcohol) no recently PHQ-2 Answer Date Recorded PHQ-2 Score 0 07/09/2019 Comments Unknown Sex and Gender Information Value Date Recorded Sex Assigned at Not on file Legal Sex Female 11:52 PM TRACTOR TRAILER TRUCK DRIVER Gender Identity Female 09/15/2022 2:42 PM TRACTOR TRAILER TRUCK DRIVER Sexual Orientation Straight 09/15/2022 2: 42 PM TRACTOR TRAILER TRUCK DRIVER documented as of this encounter Miscellaneous Notes * Telephone Encounter - Annie Monique - 01/02/2020 10:35 AM CDT noted * Telephone Encounter - Cayetano Chawla PA - 01/02/2020 9:51 AM CDT IFG * Telephone Encounter - Berenice Aguilar MA - 01/02/2020 9:10 AM CDT mb * Telephone Encounter - Annie Monique - 01/02/2020 8:43 AM CDT TAYLOR-pt has labs due next week, need dx for a1c please documented in this encounter Plan of Treatment Not on file documented as of this encounter Visit Diagnoses Not on filedocumented in this encounter Care Teams Covering Machine Tender Relationship Specialty Start Date End Date Jarvis Boston MD PCP - General 10/29/16 03/14/22 documented as of this encounter
--- OUTSIDE RECORDS SUMMARY | 2024-08-13 05:23 | XMS_ITS | Encounter Summary ---
Author Organization [facility] Healthcare Address [address] [place] [address] Care Team Providers Care Green Prize Packer Name Role Phone Jarvis Boston MD Primary Care [facility] Encounter Details Date Type Department Care Team (Late st Contact Info) Description 07/02/2019 4:15 PM COMBINE DRIVER [address] [address] Benign hypertension Social History Tobacco Use Types [...] on file Legal Sex Female 11:52 PM COMBINE DRIVER Gender Identity Female 09/15/2022 2:42 PM COMBINE DRIVER Sexual Orientation Straight 09/15/2022 2: 42 PM COMBINE DRIVER documented as of this encounter Plan of Treatment Not on file documented as of this encounter Procedures Procedure Name Priority Date/Time Associated Diagnosis Comments EGFR Routine 07/02/2019 9:34 AM COMBINE DRIVER Benign hypertension BASIC METABOLIC PANEL Routine 07/02/2019 9:34 AM COMBINE DRIVER Benign hypertension documented in this encounter Results * eGFR (07/02/2019 9:34 AM COMBINE DRIVER) eGFR 96 mL/min/1.7 3 m2 [facility] Comment: Interpretive Data Reference Interval Normal ?>/= 90 mL/min/1.73m2 Mildly decreased* ? 60 - 89 mL/min/1.73m2 Mildly to moderately decreased ?45 - 59 mL/min/1.73m2 Moderately to severely decreased ??30 - 44 mL/min/1.73m2 Severely decreased ?15 - 29 mL/min/1.73m2 Kidney Failure ?< 15 ??mL/min/1.73m2 *Relative to young adult level If -Fijian multiply value by 1.16. Estimated glomerular filtration [...] was last reviewed 2016. Blood specimen (specimen) 07/02/2019 9:34 AM COMBINE DRIVER 07/02/2019 6:39 PM COMBINE DRIVER us Jarvis Boston MD LAB BLOOD ORDERABLE S Final Result TATE [id number] Department [place] [address] * (ABNORMAL) Basic metabolic panel (07/02/2019 9:34 AM COMBINE DRIVER) Sodium 136 135 - 145 mmol/L [facility] Potassium, pl 4.0 3.3 - 4.9 mmol/L [facility] Chloride 99 97 - 110 mmol/L [facility] CO2 26 22 - 32 mmol/L [facility] Anion gap 11 2 - 15 mmol/L [facility] BUN 17 8 - 25 mg/dL [facility] Creatinine 0.51(L) 0.60 - 1.10 mg/dL [facility] Glucose 101 70 - 199 mg/dL [facility] Comment: Interpretive Data Fasting glucose >/= 126 [...] 2017. Calcium 9.8 8.5 - 10.3 mg/dL [facility] Blood specimen (specimen) 07/02/2019 9:34 AM COMBINE DRIVER 07/02/2019 6:32 PM COMBINE DRIVER us Jarvis Boston MD LAB BLOOD ORDERABLE S Final Result Performing Organization Address City/State/[facility] Co de Phone Number TATE [phone] Department [place] [address] documented in this encounter Visit Diagnoses Diagnosis Benign hypertension Essential hypertension, benign documented in this encounter Care Teams Green Prize Packer Relationship Specialty Start Date End Date Jarvis Boston MD PCP - General 10/29/16 03/14/22 documented as of this encounter
--- OUTSIDE RECORDS SUMMARY | 2024-08-13 05:23 | XMS_ITS | Encounter Summary ---
Author Organization [facility] Medical Group Address [address] [place] [address] Care Team Providers Care Neurology Technologist Name Role Phone Jarvis Boston MD Primary Care Provi [facility] Encounter Details Date Type Department Care Team (Late st Contact Info) Description 05/28/2021 Telephone [facility] [address] [place] [address] [address] [place] [address] Jarvis Boston MD [address] [place] [address] Social History Tobacco Use Types [...] file Legal Sex Female 11:52 PM JUNIOR SOFTWARE DEVELOPER Gender Identity Female 09/15/2022 2:42 PM JUNIOR SOFTWARE DEVELOPER Sexual Orientation Straight 09/15/2022 2: 42 PM JUNIOR SOFTWARE DEVELOPER documented as of this encounter Miscellaneous Notes * Telephone Encounter - Kristina Cruz - 05/29/2021 8:17 AM CDT Dx code updated * Telephone Encounter - Jarvis Boston MD - 05/28/2021 5:16 PM CDT In ehr now igt. * Telephone Encounter - Kristina Cruz - 05/28/2021 1:55 PM CDT What dx would JW like used for the A1C lab for this pt? Please advise. documented in this encounter Plan of Treatment Not on file documented as of this encounter Visit Diagnoses Not on filedocumented in this encounter Care Teams Neurology Technologist Relationship Specialty Start Date End Date Jarvis Boston MD PCP - General 10/29/16 03/14/22 documented as of this encounter
--- OUTSIDE RECORDS SUMMARY | 2024-08-13 05:23 | XMS_ITS | Encounter Summary ---
Author Organization [facility] Address [address] [place] [address] Care Team Providers Care Retail Sales Professional Name Role Phone Jarvis Boston MD Primary Care Provi [facility] Encounter Details Date Type Department Care Team (Late st Contact Info) Description 01/16/2020 Documentation [facility] [address] [place] [address] [address] [place] [id number] Saumya Herrera Social History Tobacco Use Types Packs/Day Years Used Date Smoking Tobacco: Never Smokeless Tobacco: Never Alcohol Use Standard Drinks/Week Comments Not Currently 0 (1 standard drink = 0.6 oz pur e alcohol) no recently PHQ-2 Answer Date Recorded PHQ-2 Score 0 07/09/2019 Comments Unknown Sex and Gender Information Value Date Recorded Sex Assigned at Not on file Legal Sex Female 11:52 PM REAL ESTATE ADMINISTRATOR Gender Identity Female 09/15/2022 2:42 PM REAL ESTATE ADMINISTRATOR Sexual Orientation Straight 09/15/2022 2: 42 PM REAL ESTATE ADMINISTRATOR documented as of this encounter Progress Notes * Saumya Herrera - 01/16/2020 2:27 PM CDT Lab for lab maribel due 05/2020 documented in this encounter Plan of Treatment Not on file documented as of this encounter Visit Diagnoses Not on filedocumented in this encounter Care Teams Retail Sales Professional Relationship Specialty Start Date End Date Jarvis Boston MD PCP - General 10/29/16 03/14/22 documented as of this encounter
--- OUTSIDE RECORDS SUMMARY | 2024-08-13 05:23 | XMS_ITS | Encounter Summary ---
Author Organization [facility] Address [address] [place] [address] Care Team Providers Care Certified Pathology Assistant Name Role Phone Jarvis Boston MD Primary Care Provi [facility] Encounter Details Date Type Department Care Team (Late st Contact Info) Description 09/03/2019 10:00 AM SAMPLE GRINDER Lab [facility] [address] [place] [address] [address] [place] [id number] Benign hypertension Social History Tobacco Use Types [...] on file Legal Sex Female 11:52 PM SAMPLE GRINDER Gender Identity Female 09/15/2022 2:42 PM SAMPLE GRINDER Sexual Orientation Straight 09/15/2022 2: 42 PM SAMPLE GRINDER documented as of this encounter Plan of Treatment Not on file documented as of this encounter Visit Diagnoses Diagnosis Benign hypertension Essential hypertension, benign documented in this encounter Care Teams Certified Pathology Assistant Relationship Specialty Start Date End Date Jarvis Boston MD PCP - General 10/29/16 03/14/22 documented as of this encounter
--- OUTSIDE RECORDS SUMMARY | 2024-08-13 05:23 | XMS_ITS | Encounter Summary ---
Author Organization [facility] Address [address] [place] [address] Care Team Providers Care Web Machine Tender Name Role Phone Jarvis Boston MD Primary Care Provi [facility] Encounter Details Date Type Department Care Team (Late st Contact Info) Description 05/09/2020 Orders Only [facility] [address] [facility] [address] [facility] [address] [place] [phone] Jarvis Boston MD [address] [place] [address] Social History Tobacco Use Types [...] on file Legal Sex Female 11:52 PM LITIGATION SUPPORT ANALYST Gender Identity Female 09/15/2022 2:42 PM LITIGATION SUPPORT ANALYST Sexual Orientation Straight 09/15/2022 2: 42 PM LITIGATION SUPPORT ANALYST documented as of this encounter Plan of Treatment Not on file documented as of this encounter Procedures Procedure Name Priority Date/Time Associated Diagnosis Comments SPECIMEN STATUS REPORT Routine 0 9:12 AM CDT IRON PROFILE W/ IBC Routine 05/09/2020 9 :12 AM CDT CBC WITH AUTO DIFFERENTIAL Routine 05/09/2020 9:12 AM CDT VITAMIN D 25 HYDROXY Routine 05/09/2020 9:12 AM CDT CHOLESTEROL, LDL, DIRECT Routine 05/09/2020 9:12 AM CDT VITAMIN B12 Routine 05/09/2020 9:12 AM CDT CHOLESTEROL, TOTAL Routine 05/09/2020 9: 12 AM CDT COMPREHENSIVE METABOLIC PANEL Routine 05/09/2020 9:12 AM CDT documented in this encounter Results * Specimen Status Report (05/09/2020 9:12 AM CDT) Specimen Status Report Comment [facility] - 01 Comment: Blank Read CMP14 Default Blank Read CMP14 Default A hand-written panel/profile was received from your office. In accordance with the [facility] Ambiguous Test Code Policy dated January 2003, we have completed your order by using the closest currently or formerly recognized AMA panel. ??We have assigned Comprehensive Metabolic Panel (14), Test Code #706252 to this request. ??If this is not the testing you wished to receive on this specimen, please contact the [facility] Client Inquiry/Technical Services Department to clarify the test order. ??We appreciate your business. 05/09/2020 9:12 AM CDT 05/09/2020 Narrative [facility] - 05/10/2020 8:14 AM CDT Performed at: ??01 - [facility], [place], [place] ??[id number] Field Support Engineer: Mikel Luu PhD, Phone: ??[phone] us Jarvis Boston MD LAB BLOOD ORDERABLE S Final Result [facility] - 01 * (ABNORMAL) Vitamin B12 (05/09/2020 9:12 AM CDT) Vitamin B12 1,410(H) 232 - 1,245 pg/mL [facility] - 01 05/09/2020 9:12 AM CDT 05/09/2020 Narrative [facility] - 05/10/2020 8:14 AM CDT Performed at: ??01 - [address] ??[id number] Field Support Engineer: Mikel Luu PhD, Phone: ??[phone] Jarvis Boston MD LAB BLOOD ORDERABLE S Final Result Performing Organization Address [facility] Co de Phone Number [facility] - 01 * Cholesterol, total (05/09/2020 9:12 AM CDT) Cholesterol 181 100 - 199 mg/dL [facility] - 01 05/09/2020 9:12 AM CDT 05/09/2020 Narrative [facility] - 05/10/2020 8:14 AM CDT Performed at: ??[address] ??[id number] Field Support Engineer: Mikel Luu PhD, Phone: ??[phone] Jarvis Boston MD LAB BLOOD ORDERABLE S Final Result Performing Organization Address [facility] Co de Phone Number [facility] - 01 * Vitamin D 25 hydroxy (05/09/2020 9:12 AM CDT) Vitamin D, 25-Hydroxy 35.8 30.0 - 100.0 ng/mL [facility] - 01 Comment: Vitamin D deficiency has been defined by the Reading of Medicine and an Endocrine Society practice guideline as a level of serum 25-OH vitamin D less than 20 ng/mL (1,2). The Endocrine Society went on to further define vitamin D insufficiency as a level between 21 and 29 ng/mL (2). 1. IOM (Reading of Medicine). 2010. Dietary reference ?? intakes for calcium and D. [place]: The ?? National [employer] Press. 2. Nithin MF, Flores NC, Marylu FELIX, et al. ?? Evaluation, treatment, and prevention of vitamin D ?? deficiency: an Endocrine Society clinical practice ?? guideline. JCEM. 2011 Jan; 96(7):1911-30. 05/09/2020 9:12 AM CDT 05/09/2020 Narrative [facility] - 05/10/2020 8:14 AM CDT Performed at: ??01 - [facility] ??[id number] Field Support Engineer: Mikel Luu PhD, Phone: ??[phone] Jarvis Boston MD LAB BLOOD ORDERABLE S Final Result Performing Organization Address [facility] Co de Phone Number [facility] - 01 * (ABNORMAL) Cholesterol, LDL, direct (05/09/2020 9:12 AM CDT) LDL Chol, Direct 104(H) 0 - 99 mg/dL [facility] - 01 05/09/2020 9:12 AM CDT 05/09/2020 Narrative [facility] - 05/10/2020 8:14 AM CDT Performed at: ??01 - [facility] ??[id number] Field Support Engineer: Mikel Luu PhD, Phone: ??[phone] Jarvis Boston MD LAB BLOOD ORDERABLE S Final Result Performing Organization Address [facility]/ZIP Co de Phone Number [facility] - 01 * Iron profile w/ IBC (05/09/2020 9:12 AM CDT) Iron Bind.Cap.(TIBC) 277 250 - 450 ug/dL [facility] - 01 UIBC 197 118 - 369 ug/dL [facility] - 01 Iron 80 27 - 139 ug/dL [facility] - 01 Iron saturation 29 15 - 55 % [facility] - 01 05/09/2020 9:12 AM CDT 05/09/2020 Narrative [facility] - 05/10/2020 8:14 AM CDT Performed at: ??01 - [address] ??[id number] Field Support Engineer: Mikel Luu PhD, Phone: ??[phone] us Jarvis Boston MD LAB BLOOD ORDERABLE S Final Result [facility] - 01 * (ABNORMAL) Comprehensive metabolic panel (05/09/2020 9:12 AM CDT) Glucose 79 65 - 99 mg/dL [facility] - 01 BUN 27 8 - 27 mg/dL [facility] - 01 Creatinine, Serum 0.61 0.57 - 1.00 mg/dL [facility] - 01 eGFR If NonAfricn Am 90 >59 mL/min/1.7 3 [facility] - 01 eGFR If Africn Am 104 >59 mL/min/1.7 3 [facility] - 01 BUN/creat ratio 44(H) 12 - 28 [facility] - 01 Sodium 143 134 - 144 mmol/L [facility] - 01 Potassium, sr 4.4 3.5 - 5.2 mmol/L [facility] - 01 Chloride 102 96 - 106 mmol/L [facility] - 01 CO2 25 20 - 29 mmol/L [facility] - 01 Calcium 9.9 8.7 - 10.3 mg/dL [facility] - 01 Protein, sr 6.3 6.0 - 8.5 g/dL [facility] - 01 Albumin 4.0 3.7 - 4.7 g/dL [facility] - 01 Globulin, Total 2.3 1.5 - 4.5 g/dL [facility] - 01 A/G Ratio 1.7 1.2 - 2.2 [facility] - 01 Bilirubin, Total 0.3 0.0 - 1.2 mg/dL [facility] - 01 Alk phos 134(H) 39 - 117 IU/L [facility] - 01 AST 17 0 - 40 IU/L [facility] - 01 ALT 16 0 - 32 IU/L [facility] - 01 05/09/2020 9:12 AM CDT 05/09/2020 Narrative [facility] - 05/10/2020 8:14 AM CDT Performed at: ??01 - [facility] ??[id number] Field Support Engineer: Mikel Luu PhD, Phone: ??[phone] us Jarvis Boston MD LAB BLOOD ORDERABLE S Final Result [facility] - 01 * (ABNORMAL) CBC with auto differential (05/09/2020 9:12 AM CDT) Pathologist [facility] WBC 9.1 3.4 - 10.8 x10E3/uL [facility] - 01 RBC 4.24 3.77 - 5.28 x10E6/uL [facility] - 01 Hgb 14.3 11.1 - 15.9 g/dL [facility] - 01 Hct 41.5 34.0 - 46.6 % [facility] - 01 MCV 98(H) 79 - 97 fL [facility] - 01 MCH 33.7(H) 26.6 - 33.0 pg [facility] - 01 MCHC 34.5 31.5 - 35.7 g/dL [facility] - 01 Rdw 12.0 11.7 - 15.4 % [facility] - 01 Platelets 230 150 - 450 x10E3/uL [facility] - 01 Neutrophils pct 62 Not Estab. % [facility] - 01 Lymphs pct 30 Not Estab. % [facility] - 01 Monocytes pct 7 Not Estab. % [facility] - 01 Eosinophils pct 0 Not Estab. % [facility] - 01 Basophil pct 1 Not Estab. % [facility] - 01 Neutrophil abs 5.7 1.4 - 7.0 x10E3/uL [facility] - 01 Lymphs (Absolute) 2.7 0.7 - 3.1 x10E3/uL [facility] - 01 Monocyte abs 0.6 0.1 - 0.9 x10E3/uL [facility] - 01 Eosinophils, abs 0.0 0.0 - 0.4 x10E3/uL [facility] - 01 Basophils, abs 0.1 0.0 - 0.2 x10E3/uL [facility] - 01 Immature Granulocytes 0 Not Estab. % [facility] - 01 Immature Grans (Abs) 0.0 0.0 - 0.1 x10E3/uL [facility] - 01 05/09/2020 9:12 AM CDT 05/09/2020 Narrative [facility] - 05/10/2020 8:14 AM CDT Performed at: ??01 - [facility] [address] ??[id number] Field Support Engineer: Mikel Luu PhD, Phone: ??[phone] us Jarvis Boston MD LAB BLOOD ORDERABLE S Final Result [facility] - 01 documented in this encounter Visit Diagnoses Not on filedocumented in this encounter Care Teams Web Machine Tender Relationship Specialty Start Date End Date Jarvis Boston MD PCP - General 10/29/16 03/14/22 documented as of this encounter
--- OUTSIDE RECORDS SUMMARY | 2024-08-13 05:23 | XMS_ITS | Encounter Summary ---
Author Organization [facility] Address [address] [place] [address] Care Team Providers Care Allied Health Instructor Name Role Phone Jarvis Boston MD Primary Care Provi [facility] Encounter Details Date Type Department Care Team (Late st Contact Info) Description 01/03/2020 Telephone [facility] [address] [facility] [address] [place] [address] Jarvis Boston MD [address] [place] [address] Social History Tobacco Use Types [...] on file Legal Sex Female 11:52 PM PAPER MILL MANAGER Gender Identity Female 09/15/2022 2:42 PM PAPER MILL MANAGER Sexual Orientation Straight 09/15/2022 2: 42 PM PAPER MILL MANAGER documented as of this encounter Miscellaneous Notes * Telephone Encounter - Linette Adams - 01/03/2020 10:45 AM CDT Lab order from 01/08 faxed to [facility] [place] [place] per pt request documented in this encounter Plan of Treatment Not on file documented as of this encounter Visit Diagnoses Not on filedocumented in this encounter Care Teams Allied Health Instructor Relationship Specialty Start Date End Date Jarvis Boston MD PCP - General 10/29/16 03/14/22 documented as of this encounter
--- OUTSIDE RECORDS SUMMARY | 2024-08-13 05:23 | XMS_ITS | Encounter Summary ---
Author Organization [facility] Address [address] [place] [address] Care Team Providers Care Middle School Professional Name Role Phone Jarvis Botson MD Primary Care Provi [facility] Encounter Details Date Type Department Care Team (Late st Contact Info) Description 09/18/2019 Telephone [facility] [address] [facility] [address] [place] [address] Jarvis Boston MD [address] [place] [address] Social History Tobacco Use Types [...] on file Legal Sex Female 11:52 PM CHIEF RECORDIST Gender Identity Female 09/15/2022 2:42 PM CHIEF RECORDIST Sexual Orientation Straight 09/15/2022 2: 42 PM CHIEF RECORDIST documented as of this encounter Miscellaneous Notes * Telephone Encounter - Odette Holman MA - 09/18/2019 4:12 PM CST Pt notified F RECORDIST * Telephone Encounter - Jarvis Boston MD - 09/18/2019 4:07 PM CHIEF RECORDIST This is not antibiotic rx. Runny nose flonase otc. delsem or Robitussin for cough F RECORDIST * Telephone Encounter - La Matson - 09/18/2019 1:49 PM CST JW please advise F RECORDIST * Telephone Encounter - Linette Adams - 09/18/2019 1:30 PM CST Pt complains of cough and runny nose since 09/11. She was offered an appt but declined because its hard for her to get into the office because she is in a wheelchair. Please advise [phone] [facility] F RECORDIST documented in this encounter Plan of Treatment Not on file documented as of this encounter Visit Diagnoses Not on filedocumented in this encounter Care Teams Middle School Professional Relationship Specialty Start Date End Date Jarvis Boston MD PCP - General 10/29/16 03/14/22 documented as of this encounter
--- OUTSIDE RECORDS SUMMARY | 2024-08-13 05:23 | XMS_ITS | Encounter Summary ---
Author Organization [facility] Address [address] [place] [address] Care Team Providers Care Game Design Instructor Name Role Phone Jarvis Boston MD Primary Care Provi [facility] Encounter Details Date Type Department Care Team (Late st Contact Info) Description 06/15/2019 Orders Only [place] [facility] [address] [facility] [address] [place] [address] Jarvis Ibanez MD [address] [place] [address] [address] [place] [address] Social History Tobacco Use Types Packs/Day Years Used Date Smoking Tobacco: Never Smokeless Tobacco: Never Alcohol Use Standard Drinks/Week Comments Not Currently 0 (1 standard drink = 0.6 oz pur e alcohol) no recently PHQ-2 Answer Date Recorded PHQ-2 Score 4 04/14/2019 Comments Unknown Sex and Gender Information Value Date Recorded Sex Assigned at Not on file Legal Sex Female 11:52 PM BUCKRAM SEWER Gender Identity Female 09/15/2022 2:42 PM BUCKRAM SEWER Sexual Orientation Straight 09/15/2022 2: 42 PM BUCKRAM SEWER documented as of this encounter Ordered Prescriptions Prescription Sig Dispense Quantity Refills Last Filled Start Date End Date amoxicillin (AMOXIL) 500 mg tablet/capsuleIndi cations:Skin/Soft Tissue Infection 2 po bid , to use along with augmentin bid 28 tablet/capsule 06/15/2019 0 amoxicillin-clavul anate (AUGMENTIN) 875-125 mg per tabletIndications: Skin/Soft Tissue Infection Take 1 tablet by mouth 2 (two) times a day for 7 days Use with 2 amoxil 500mg pills 14 tablet 06/15/2019 9 documented in this encounter Plan of Treatment Not on file documented as of this encounter Visit Diagnoses Not on filedocumented in this encounter Discontinued Medications Medication Sig Discontinue Reason Start Date End Da te amoxicillin-clavulanate (AUGMENTIN) 875-125 mg per tabletIndications:Skin/ Soft Tissue Infection Take 1 tablet by mouth 2 (two) times a day Use with 2 amoxil 500mg pills Reorder 04/19/2019 06/15/2019 amoxicillin (AMOXIL) 500 mg tablet/capsuleIndicatio ns:Skin/Soft Tissue Infection 2 po bid , to use along with augmentin bid Reorder 04/19/2019 06/15/2019 documented as of this encounter Care Teams Game Design Instructor Relationship Specialty Start Date End Date Jarvis Boston MD PCP - General 10/29/16 03/14/22 documented as of this encounter
--- OUTSIDE RECORDS SUMMARY | 2024-08-13 05:23 | XMS_ITS | Encounter Summary ---
Author Organization [facility] Address [address] [place] [address] Care Team Providers Care Plumbing Foreman Name Role Phone Jarvis Boston MD Primary Care Provi [facility] Reason for Visit * Reason Comments Successful Phone Call Encounter Details Date Type Department Care Team (Late st Contact Info) Description 09/14/2019 ACO Outreach [facility] Accountable Care Organization [address] [place] [address] Jay Wiley LCSW Social History Tobacco Use Types Packs/Day Years Used Date Smoking Tobacco: Never Smokeless Tobacco: Never Alcohol Use Standard Drinks/Week Comments Not Currently 0 (1 standard drink = 0.6 oz pur e alcohol) no recently PHQ-2 Answer Date Recorded PHQ-2 Score 0 07/09/2019 Comments Unknown Sex and Gender Information Value Date Recorded Sex Assigned at Not on file Legal Sex Female 11:52 PM CATERING BARISTA Gender Identity Female 09/15/2022 2:42 PM CATERING BARISTA Sexual Orientation Straight 09/15/2022 2: 42 PM CATERING BARISTA documented as of this encounter Plan of Treatment Not on file documented as of this encounter Visit Diagnoses Not on filedocumented in this encounter Care Teams Plumbing Foreman Relationship Specialty Start Date End Date Jarvis Boston MD PCP - General 10/29/16 03/14/22 documented as of this encounter
--- OUTSIDE RECORDS SUMMARY | 2024-08-13 05:23 | XMS_ITS | Encounter Summary ---
Author Organization [facility] Address [address] [place] [address] Care Team Providers Care Blood Bank Specialist Name Role Phone Jarvis Boston MD Primary Care Provi [facility] Encounter Details Date Type Department Care Team (Late st Contact Info) Description 06/15/2019 Telephone [facility] [address] [place] [address] [address] [place] [address] Jarvis Boston MD [address] [place] [address] Social History Tobacco Use Types [...] on file Legal Sex Female 11:52 PM TEN PIN BOWLING CENTRE MANAGER Gender Identity Female 09/15/2022 2:42 PM TEN PIN BOWLING CENTRE MANAGER Sexual Orientation Straight 09/15/2022 2: 42 PM TEN PIN BOWLING CENTRE MANAGER documented as of this encounter Miscellaneous Notes * Telephone Encounter - Jarvis Ibanez MD - 06/15/2019 5:20 PM TEN PIN BOWLING CENTRE MANAGER I called the patient and I called in the Augmentin and amoxicillin that she had had from Dr. Boston back in April. It sounds like maybe she had clindamycin from the [facility] but she said she would be happy with the above antibiotic PIN BOWLING CENTRE MANAGER * Telephone Encounter - Christina Vargas MA - 06/15/2019 1:41 PM CST jw out of office to [facility] PIN BOWLING CENTRE MANAGER * Telephone Encounter - Linette Adams - 06/15/2019 1:23 PM CST Pt states she has been taking cryptomyacin for a leg infection. Her legs have improved a lot. Wouldlike to know if she needs to have another round of antibiotics? Please advise [phone] PIN BOWLING CENTRE MANAGER documented in this encounter Plan of Treatment Not on file documented as of this encounter Visit Diagnoses Not on filedocumented in this encounter Care Teams Blood Bank Specialist Relationship Specialty Start Date End Date Jarvis Boston MD PCP - General 10/29/16 03/14/22 documented as of this encounter
--- OUTSIDE RECORDS SUMMARY | 2024-08-13 05:23 | XMS_ITS | Encounter Summary ---
Author Organization [facility] Healthcare Address [address] [place] [address] Care Team Providers Care Real Estate [employer] Principal Name Role Phone Jarvis Boston MD Primary Care [facility] Encounter Details Date Type Department Care Team (Late st Contact Info) Description 05/21/2021 3:35 PM CDT [address] [address] Benign hypertension; Hypertensive heart disease with congestive heart failure, unspecified heart failure type (HCC); Pure hypercholesterolemia; Iron deficiency anemia due to chronic blood loss; B12 deficiency; Mild persistent asthma without complication; Other disorders [...] on file Legal Sex Female 11:52 PM HEEL ATTACHER WOOD Gender Identity Female 09/15/2022 2:42 PM HEEL ATTACHER WOOD Sexual Orientation Straight 09/15/2022 2: 42 PM HEEL ATTACHER WOOD documented as of this encounter Plan of Treatment Not on file documented as of this encounter Procedures Procedure Name Priority Date/Time Associated Diagnosis Comments EGFR Routine 05/21/2021 8:51 AM CDT Benign hypertension Hypertensive heart disease with congestive heart failure, unspecified heart failure type (HCC) Pure hypercholesterolemi a Iron deficiency anemia due to chronic blood loss PRO B-TYPE NATRIURETIC PEPTIDE Routine 05/21/2021 8:51 AM CDT Benign hypertension Hypertensive heart disease with congestive heart failure, unspecified heart failure type (HCC) Pure hypercholesterolemi a Iron deficiency anemia due to chronic blood loss TSH Routine 05/21/2021 8:51 AM CDT Benign hypertension Hypertensive heart disease with congestive heart failure, unspecified heart failure type (HCC) Pure hypercholesterolemi a Iron deficiency anemia due to chronic blood loss CHOLESTEROL, LDL, DIRECT Routine 05/21/2021 8:51 AM CDT Benign hypertension Hypertensive heart disease with congestive heart failure, unspecified heart failure type (HCC) Pure hypercholesterolemi a Iron deficiency anemia due to chronic blood loss HEMOGLOBIN A1C Routine 05/21/2021 8:51 AM CDT Benign hypertension Hypertensive heart disease with congestive heart failure, unspecified heart failure type (HCC) Pure hypercholesterolemi a Iron deficiency anemia due to chronic blood loss Mild persistent asthma without complication Other disorders of iron metabolism VITAMIN B12 Routine 05/21/2021 8:51 AM CDT Benign hypertension Hypertensive heart disease with congestive heart failure, unspecified heart failure type (HCC) B12 deficiency Pure hypercholesterolemi a Iron deficiency anemia due to chronic blood loss COMPREHENSIVE METABOLIC PANEL Routine 05/21/2021 8:51 AM CDT Benign hypertension Hypertensive heart disease with congestive heart failure, unspecified heart failure type (HCC) Pure hypercholesterolemi a Iron deficiency anemia due to chronic blood loss documented in this encounter Results * eGFR (05/21/2021 8:51 AM CDT) [facility] eGFR 89 mL/min/1.7 3 m2 [facility]ATE RAMOS Comment: Interpretive Data Reference [...] 70. Current interpretive data was last reviewed 2020 Blood 05/21/2021 8:51 AM CDT 05/21/2021 3:59 PM CDT us Jarvis Boston MD LAB BLOOD ORDERABLE S Final Result TATE [id number] Department of Laboratories [place], [place] [id number] * Hemoglobin A1c (05/21/2021 8:51 AM CDT) [facility] Hgb A1C 5.3 4.0 - 5.6 % [facility]ATE RAMOS Estimated Average Glucose 105 mg/dL [facility]ATE RAMOS Comment: The ADA recommends reporting an estimated Average Glucose (eAG) with all Hemoglobin A1c results using the equation derived from a study of 507 normal and diabetic adults. ??Minority populations were underrepresented and children were not included. ?? (Diabetes Care 31:1317-3844, 2008). ??The eAG is not equivalent to a fasting glucose. Blood 05/21/2021 8:51 AM CDT 05/21/2021 3:44 PM CDT Narrative [facility] - 05/21/2021 4:17 PM CDT fasting us Jarvis Boston MD LAB BLOOD ORDERABLE S Final Result Performing Organization Address [facility] de Phone Number TATE RAMOS [address] [place] [address] * Cholesterol, LDL, direct (05/21/2021 8:51 AM CDT) LDL Cholesterol, Direct 65 <=129 mg/dL TATE RAMOS Comment: Interpretive Data [...] ORDERABLE S Final Result Performing Organization Address City/[facility]/ZIP Co de Phone Number EMMANUELAMGUE RAMOS [address] [place] [address] * Vitamin B12 (05/21/2021 8:51 AM CDT) Vitamin B12 1,239 230 - 1,250 pg/mL TATE Blood 05/21/2021 8:51 AM CDT 05/21/2021 3:44 PM CDT Narrative [facility] - 05/21/2021 4:36 PM CDT fasting us Jarvis Boston MD LAB BLOOD ORDERABLE S Final Result Performing Organization Address [facility] de Phone Number TATE [address] [facility] [place] [address] * (ABNORMAL) TSH (05/21/2021 8:51 AM CDT) Pathologist [facility] Thyroid Stimulating Hormone 5.13(H) 0.30 - 4.20 mcIUnit/mL TATE Blood 05/21/2021 8:51 AM CDT 05/21/2021 3:44 PM CDT Narrative EMMANUELMAGUE - 05/21/2021 4:36 PM CDT fasting Jarvis Boston MD LAB BLOOD ORDERABLE S Final Result Performing Organization Address [facility] Phone Number TATE [address] [facility] [place] [address] * Pro B-type natriuretic peptide (05/21/2021 8:51 AM CDT) Pathologist [facility] NT-proBNP 260 <=300 pg/mL TATE Comment: Interpretive Comments: A. Dyspnea in Acute [...] AM CDT 05/21/2021 3:44 PM CDT Narrative [facility] - 05/21/2021 4:36 PM CDT fasting us Jarvis Boston MD LAB BLOOD ORDERABLE S Final Result [facility] [address] Department [place] [address] * (ABNORMAL) Comprehensive metabolic panel (05/21/2021 8:51 [...] AM CDT 05/21/2021 3:44 PM CDT Narrative [facility] - 05/21/2021 4:36 PM CDT fasting us Jarvis Boston MD LAB BLOOD ORDERABLE S Final Result [facility] [address] [address] Department [place] [address] documented in this encounter Visit Diagnoses Diagnosis Benign hypertension Essential hypertension, benign Hypertensive heart disease with congestive heart failure, unspecified heart failure type (HCC) Pure hypercholesterolemia Iron deficiency anemia due to chronic blood loss Iron deficiency anemia secondary to blood loss (chronic) B12 deficiency Mild persistent asthma without complication Other disorders of iron metabolism Other disorders of iron metabolism documented in this encounter Care Teams Real Estate Agency Principal Relationship Specialty Start Date End Date Jarvis Boston MD PCP - General 10/29/16 03/14/22 documented as of this encounter
--- OUTSIDE RECORDS SUMMARY | 2024-08-13 05:23 | XMS_ITS | Encounter Summary ---
Author Organization [facility] Healthcare Address [address] [place] [address] Care Team Providers Care Swatcher Name Role Phone Jarvis Boston MD Primary Care [facility] Encounter Details Date Type Department Care Team (Late st Contact Info) Description 09/03/2019 5:40 PM COMPRESS MACHINE OPERATOR [address] [address] Iron deficiency anemia due to chronic blood loss; Benign hypertension Social History Tobacco Use Types [...] on file Legal Sex Female 11:52 PM COMPRESS MACHINE OPERATOR Gender Identity Female 09/15/2022 2:42 PM COMPRESS MACHINE OPERATOR Sexual Orientation Straight 09/15/2022 2: 42 PM COMPRESS MACHINE OPERATOR documented as of this encounter Plan of Treatment Not on file documented as of this encounter Procedures Procedure Name Priority Date/Time Associated Diagnosis Comments EGFR Routine 09/03/2019 9:45 AM COMPRESS MACHINE OPERATOR Benign hypertension DIFFERENTIAL AUTO Routine 09/03/2019 9:4 5 AM COMPRESS MACHINE OPERATOR Iron deficiency anemia due to chronic blood loss IRON PROFILE W/ IBC Routine 09/03/2019 9 :45 AM COMPRESS MACHINE OPERATOR Iron deficiency anemia due to chronic blood loss CBC WITH AUTO DIFFERENTIAL Routine 09/03/2019 9:45 AM COMPRESS MACHINE OPERATOR Iron deficiency anemia due to chronic blood loss COMPREHENSIVE METABOLIC PANEL Routine 09/03/2019 9:45 AM COMPRESS MACHINE OPERATOR Benign hypertension documented in this encounter Results * eGFR (09/03/2019 9:45 AM COMPRESS MACHINE OPERATOR) eGFR 93 mL/min/1.7 3 m2 [facility]ATE RAMOS Comment: Interpretive Data Reference Interval Normal ?>/= 90 mL/min/1.73m2 Mildly decreased* ? 60 - 89 mL/min/1.73m2 Mildly to moderately decreased ?45 - 59 mL/min/1.73m2 Moderately to severely decreased ??30 - 44 mL/min/1.73m2 Severely decreased ?15 - 29 mL/min/1.73m2 Kidney Failure ?< 15 ??mL/min/1.73m2 *Relative to young adult level If -Macanese multiply value by 1.16. Estimated glomerular filtration [...] was last reviewed 2016. Blood specimen (specimen) 09/03/2019 9:45 AM COMPRESS MACHINE OPERATOR 09/03/2019 5:43 PM COMPRESS MACHINE OPERATOR us Jarvis Boston MD LAB BLOOD ORDERABLE S Final Result [facility]ATE RAMOS [address] Department [place] [address] * Differential, auto (09/03/2019 9:45 AM COMPRESS MACHINE OPERATOR) Neutrophil abs 6.3 1.7 - 6.5 K/cumm [facility] Imm gran abs 0.0 0.0 - 0.1 K/cumm [facility] Lymphocyte abs 2.5 0.8 - 3.3 K/cumm [facility] Monocyte abs 0.6 0.2 - 0.8 K/cumm [facility] Eosinophil abs 0.0 0.0 - 0.5 K/cumm [facility] Basophil abs 0.1 0.0 - 0.1 K/cumm [facility] Neutrophil pct 65.8 % [facility] Comment: Interpretive Data Percent cell count reference ranges are not reported, since discordance with absolute values may lead to misinterpretation of CBC data. Current Interpretive Data was last revised on 2017. Imm gran pct 0.5 % [facility] Comment: Interpretive Data Percent cell count reference ranges are not reported, since discordance with absolute values may lead to misinterpretation of CBC data. Current Interpretive Data was last revised on 2017. Lymphocyte pct 26.4 % [facility] Comment: Interpretive Data Percent cell count reference ranges are not reported, since discordance with absolute values may lead to misinterpretation of CBC data. Current Interpretive Data was last revised on 2017. Monocyte pct 6.7 % [facility] Comment: Interpretive Data Percent cell count reference ranges are not reported, since discordance with absolute values may lead to misinterpretation of CBC data. Current Interpretive Data was last revised on 2017. Eosinophil pct 0.0 % [facility] Comment: Interpretive Data Percent cell count reference ranges are not reported, since discordance with absolute values may lead to misinterpretation of CBC data. Current Interpretive Data was last revised on 2017. Basophil pct 0.6 % [facility] Comment: Interpretive Data Percent cell count reference ranges are not reported, since discordance with absolute values may lead to misinterpretation of CBC data. Current Interpretive Data was last revised on 2017. Blood specimen (specimen) 09/03/2019 9:45 AM COMPRESS MACHINE OPERATOR 09/03/2019 5:40 PM COMPRESS MACHINE OPERATOR us Jarvis Boston MD LAB BLOOD ORDERABLE S Final Result Performing Organization Address City/State/ZIP [facility] Phone Number CERNER [phone] [address] Department [place] [address] * (ABNORMAL) Comprehensive metabolic panel (09/03/2019 9:45 AM COMPRESS MACHINE OPERATOR) Sodium 141 135 - 145 mmol/L [facility] Potassium, pl 4.1 3.3 - 4.9 mmol/L [facility] Chloride 102 97 - 110 mmol/L [facility] CO2 27 22 - 32 mmol/L [facility] Anion gap 12 2 - 15 mmol/L [facility] BUN 19 8 - 25 mg/dL [facility] Creatinine 0.56(L) 0.60 - 1.10 mg/dL [facility] CH Glucose [...] CH Blood specimen (specimen) 09/03/2019 9:45 AM COMPRESS MACHINE OPERATOR 09/03/2019 5:40 PM COMPRESS MACHINE OPERATOR Jarvis Boston MD LAB BLOOD ORDERABLE S Final Result TATE RAMOS [address] [address] Department of [employer] [place] [address] * (ABNORMAL) CBC with auto differential (09/03/2019 9:45 AM COMPRESS MACHINE OPERATOR) WBC 9.6 3.8 - 9.9 K/cumm [facility] CH Hgb 15.4 11.9 - 15.5 g/dL [facility] CH Hct 47.2(H) 35.6 - 45.5 % [facility] CH Plt 247 150 - 400 K/cumm [facility] MPV 9.7 9.1 - 12.3 fL [facility] RBC 4.79 3.90 - 5.20 M/cumm [facility] CH MCV 98.5(H) 81.3 - 96.4 fL [facility] CH MCH 32.2 27.1 - 33.3 pg [facility] CH MCHC 32.6 32.3 - 35.7 g/dL [facility] CH RDW CV 13.6 11.1 - 14.9 % [facility] CH RDW SD 50.2(H) 35.7 - 48.1 fL [facility] NRBC abs 0.00 0.00 - 0.01 K/cumm [facility] Blood specimen (specimen) 09/03/2019 9:45 AM COMPRESS MACHINE OPERATOR 09/03/2019 5:40 PM COMPRESS MACHINE OPERATOR Jarvis Boston MD LAB BLOOD ORDERABLE S Final Result [facility]ATE RAMOS [address] Department of [employer] [place] [address] * Iron profile w/ IBC (09/03/2019 9:45 AM COMPRESS MACHINE OPERATOR) Iron 97 35 - 145 mcg/dl [facility] TIBC 250 250 - 400 mcg/dL [facility] CH Transferrin saturation 39 20 - 50 % [facility] Blood specimen (specimen) 09/03/2019 9:45 AM COMPRESS MACHINE OPERATOR 09/03/2019 5:40 PM COMPRESS MACHINE OPERATOR Jarvis Boston MD LAB BLOOD ORDERABLE S Final Result TATE RMAOS [address] Department [place] [address] documented in this encounter Visit Diagnoses Diagnosis Iron deficiency anemia due to chronic blood loss Iron deficiency anemia secondary to blood loss (chronic) Benign hypertension Essential hypertension, benign documented in this encounter Care Teams Swatcher Relationship Specialty Start Date End Date Jarvis Boston MD PCP - General 10/29/16 03/14/22 documented as of this encounter
--- OUTSIDE RECORDS SUMMARY | 2024-08-13 05:23 | XMS_ITS | Encounter Summary ---
Author Organization [facility] Medical Group Address [address] [address] Care Team Providers Care Newspaper Illustrator Name Role Phone Jarvis Boston MD Primary Care [facility]vi [facility] Encounter Details Date Type Department Care Team (Late st Contact Info) Description 11/20/2021 8:45 AM CDT Lab [facility] Medical Group Outpatient Lab at [address] [id number] Acquired hypothyroidism; At high risk for falls per Rory fall risk assessment scale; B12 deficiency; Benign hypertension; Chronic pain syndrome; Chronic stasis dermatitis; Hypertensive heart disease with chronic combined systolic and diastolic congestive heart failure (HCC); IGT (impaired glucose tolerance); Iron deficiency anemia due to chronic blood loss; Mild persistent asthma without complication; Morbid obesity (CMS/HCC) (HCC); PE (physical exam), annual; Pure hypercholesterolemia; Recurrent major depressive disorder, in partial remission (HCC); Vitamin D deficiency Social History Tobacco Use Types Packs/Day Years [...] on file Legal Sex Female 11:52 PM INSTITUTION DIRECTOR Gender Identity Female 09/15/2022 2:42 PM INSTITUTION DIRECTOR Sexual Orientation Straight 09/15/2022 2: 42 PM INSTITUTION DIRECTOR documented as of this encounter Plan of Treatment Not on file documented as of this encounter Visit Diagnoses Diagnosis Acquired hypothyroidism Unspecified hypothyroidism At high risk for falls per Rory fall risk assessment scale B12 deficiency Benign hypertension Essential hypertension, benign Chronic pain syndrome Chronic stasis dermatitis Hypertensive heart disease with chronic combined systolic and diastolic congestive heart failure (HCC) IGT (impaired glucose tolerance) Impaired glucose tolerance test Iron deficiency anemia due to chronic blood loss Iron deficiency anemia secondary to blood loss (chronic) Mild persistent asthma without complication Morbid obesity (HCC) Morbid obesity PE (physical exam), annual Pure hypercholesterolemia Recurrent major depressive disorder, in partial remission (HCC) Vitamin D deficiency documented in this encounter Care Teams Newspaper Illustrator Relationship Specialty Start Date End Date Jarvis Boston MD PCP - General 10/29/16 03/14/22 documented as of this encounter
--- OUTSIDE RECORDS SUMMARY | 2024-08-13 05:23 | XMS_ITS | Encounter Summary ---
Author Organization [facility] Address [address] [place] [address] Care Team Providers Care Java Consultant Name Role Phone Jarvis Boston MD Primary Care Provi [facility] Encounter Details Date Type Department Care Team (Late st Contact Info) Description 05/20/2020 Orders Only [facility] [address] [place] [id number] Jarvis Boston MD [address] [place] [address] Iron deficiency anemia due to chronic blood loss (Primary Dx); Benign hypertension; Vitamin D deficiency; B12 deficiency; Pure hypercholesterolemia; IFG (impaired fasting glucose) Social History Tobacco Use Types Packs/Day Years Used Date Smoking Tobacco: Never Smokeless Tobacco: Never Alcohol Use Standard Drinks/Week Comments Not Currently 0 (1 standard drink = 0.6 oz pur e alcohol) no recently PHQ-2 Answer Date Recorded PHQ-2 Total Score (If total score is 3 or more points, staff should administer the PHQ-9) 0 05/20/2020 Comments Unknown Sex and Gender Information Value Date Recorded Sex Assigned at Not on file Legal Sex Female 11:52 PM SEMICONDUCTOR TECHNICIAN Gender Identity Female 09/15/2022 2:42 PM SEMICONDUCTOR TECHNICIAN Sexual Orientation Straight 09/15/2022 2: 42 PM SEMICONDUCTOR TECHNICIAN documented as of this encounter Miscellaneous Notes * Addendum Note - Toribio Marion, MA - 05/20/2020 2:43 PM CDTAddended by: TORIBIO MARION on: 10/06/2020 03:26 PM Modules accepted: Orders CONDUCTOR TECHNICIAN * Addendum Note - Toribio Marion MA - 05/20/2020 2:43 PM CDTAddended by: TORIBIO MARION on: 10/06/2020 03:26 PM Modules accepted: Orders CONDUCTOR TECHNICIAN documented in this encounter Plan of Treatment Not on file documented as of this encounter Procedures Procedure Name Priority Date/Time Associated Diagnosis Comments CBC WITH AUTO DIFFERENTIAL Routine 11/14/2020 9:20 AM CDT Iron deficiency anemia due to chronic blood loss Benign hypertension Pure hypercholesterolemia VITAMIN D 25 HYDROXY Routine 11/14/2020 9:20 AM CDT Benign hypertension Vitamin D deficiency Pure hypercholesterolemia HEMOGLOBIN A1C Routine 11/14/2020 9:20 AM CDT Benign hypertension Pure hypercholesterolemia IFG (impaired fasting glucose) VITAMIN B12 Routine 11/14/2020 9:20 AM CDT Benign hypertension B12 deficiency Pure hypercholesterolemia LIPID PANEL Routine 11/14/2020 9:20 AM CDT Benign hypertension Pure hypercholesterolemia COMPREHENSIVE METABOLIC PANEL Routine 11/14/2020 9:20 AM CDT Benign hypertension Pure hypercholesterolemia documented in this encounter Results * Vitamin D 25 hydroxy (11/14/2020 9:20 AM CDT) Vitamin D, 25-Hydroxy 59.8 30.0 - 100.0 ng/mL [facility] - 01 Comment: Vitamin D deficiency has been defined by the [place] of [employer] and an Endocrine Society practice guideline as a level of serum 25-OH vitamin D less than 20 ng/mL (1,2). The Endocrine Society went on to further define vitamin D insufficiency as a level between 21 and 29 ng/mL (2). 1. IOM ([place] of [employer]). 2010. Dietary reference ?? intakes for calcium and D. [place]: The ?? National Academies Press. 2. Nithin MF, Flores [place], Marylu FELIX, et al. ?? Evaluation, treatment, and prevention of vitamin D ?? deficiency: an Endocrine Society clinical practice ?? guideline. JCEM. 2010; 96(7):1911-30. Blood specimen (specimen) 11/14/2020 9:20 AM CDT 11/14/2020 Narrative [facility] - 11/15/2020 8:13 AM CDT Performed at: ??01 - [facility] ??[id number] Project Mgr: Mikel Luu PhD, Phone: ??[phone] Jarvis Boston MD LAB BLOOD ORDERABLE S Final Result Performing Organization Address [facility] de Phone Number [facility] - * Hemoglobin A1c (11/14/2020 9:20 AM CDT) [facility] Hgb A1C 5.0 4.8 - 5.6 % [facility] - Comment: ? Prediabetes: 5.7 - 6.4 ? Diabetes: >6.4 ? Glycemic control for adults with diabetes: <7.0 Blood specimen (specimen) 11/14/2020 9:20 AM CDT 11/14/2020 Narrative [facility] - 11/15/2020 8:13 AM CDT Performed at: ?? - [facility] ??[id number] Project Mgr: Mikel Luu PhD, Phone: ??[phone] Jarvis Boston MD LAB BLOOD ORDERABLE S Final Result Performing Organization Address [facility] de Phone Number [facility] - * Lipid panel (11/14/2020 9:20 AM CDT) Cholesterol 165 100 - 199 mg/dL [facility] - 01 Triglycerides 56 0 - 149 mg/dL [facility] - 01 HDL Cholesterol 78 >39 mg/dL [facility] - 01 VLDL 11 5 - 40 mg/dL [facility] - 01 LDL, calculated 76 0 - 99 mg/dL [facility] - 01 Blood specimen (specimen) 11/14/2020 9:20 AM CDT 11/14/2020 Narrative [facility] - 11/15/2020 8:13 AM CDT Performed at: ?? - [address] ??[id number] Project Mgr: Mikel Luu PhD, Phone: ??[phone] us Jarvis Boston MD LAB BLOOD ORDERABLE S Final Result [facility] - * CBC with auto differential (11/14/2020 9:20 AM CDT) WBC 9.7 3.4 - 10.8 x10E3/uL [facility] - 01 RBC 4.48 3.77 - 5.28 x10E6/uL [facility] - 01 Hgb 14.7 11.1 - 15.9 g/dL [facility] - 01 Hct 42.8 34.0 - 46.6 % [facility] - 01 MCV 96 79 - 97 fL [facility] - 01 MCH 32.8 26.6 - 33.0 pg [facility] - 01 MCHC 34.3 31.5 - 35.7 g/dL [facility] - 01 Rdw 12.4 11.7 - 15.4 % [facility] - 01 Platelets 248 150 - 450 x10E3/uL [facility] - 01 Neutrophils pct 63 Not Estab. % [facility] - 01 Lymphs pct 28 Not Estab. % [facility] - 01 Monocytes pct 7 Not Estab. % [facility] - 01 Eosinophils pct 0 Not Estab. % [facility] - 01 Basophil pct 1 Not Estab. % [facility] - 01 Neutrophil abs 6.2 1.4 - 7.0 x10E3/uL [facility] - 01 Lymphs (Absolute) 2.7 0.7 - 3.1 x10E3/uL [facility] - 01 Monocyte abs 0.7 0.1 - 0.9 x10E3/uL [facility] - 01 Eosinophils, abs 0.0 0.0 - 0.4 x10E3/uL [facility] - 01 Basophils, abs 0.1 0.0 - 0.2 x10E3/uL [facility] - 01 Immature Granulocytes 1 Not Estab. % [facility] - 01 Immature Grans (Abs) 0.1 0.0 - 0.1 x10E3/uL [facility] - 01 Blood specimen (specimen) 11/14/2020 9:20 AM CDT 11/14/2020 Narrative [facility] - 11/15/2020 8:13 AM CDT Performed at: ?? - [address] ??[id number] Project Mgr: Mikel Luu PhD, Phone: ??[phone] Jarvis Boston MD LAB BLOOD ORDERABLE S Final Result [facility] * (ABNORMAL) Comprehensive metabolic panel (11/14/2020 9:20 AM CDT) Glucose 86 65 - 99 mg/dL [facility] - 01 BUN 25 8 - 27 mg/dL [facility] - 01 Creatinine, Serum 0.70 0.57 - 1.00 mg/dL [facility] - 01 eGFR If NonAfricn Am 86 >59 mL/min/1.7 3 [facility] - 01 eGFR If Africn Am 99 >59 mL/min/1.7 3 [facility] - 01 BUN/creat ratio 36(H) 12 - 28 [facility] - 01 Sodium 142 134 - 144 mmol/L [facility] - 01 Potassium, sr 4.4 3.5 - 5.2 mmol/L [facility] - 01 Chloride 103 96 - 106 mmol/L [facility] - 01 CO2 25 20 - 29 mmol/L [facility] - 01 Calcium 10.0 8.7 - 10.3 mg/dL [facility] - 01 Protein, sr 6.7 6.0 - 8.5 g/dL [facility] - 01 Albumin 3.7 3.7 - 4.7 g/dL [facility] - 01 Globulin, Total 3.0 1.5 - 4.5 g/dL [facility] - 01 A/G Ratio 1.2 1.2 - 2.2 [facility] - 01 Bilirubin, Total 0.3 0.0 - 1.2 mg/dL [facility] - 01 Alk phos 168(H) 39 - 117 IU/L [facility] - 01 AST 13 0 - 40 IU/L [facility] - 01 ALT 14 0 - 32 IU/L [facility] - 01 Blood specimen (specimen) 11/14/2020 9:20 AM CDT 11/14/2020 Narrative [facility] - 11/15/2020 8:13 AM CDT Performed at: ??01 - [facility] ??[id number] Project Mgr: Mikel Luu PhD, Phone: ??[phone] us Jarvis Boston MD LAB BLOOD ORDERABLE S Final Result Performing Organization Address [facility] de Phone Number [facility] * (ABNORMAL) Vitamin B12 (11/14/2020 9:20 AM CDT) Pathologist [facility] Vitamin B12 1,943(H) 232 - 1,245 pg/mL [facility] - 01 Blood specimen (specimen) 11/14/2020 9:20 AM CDT 11/14/2020 Narrative [facility] - 11/15/2020 8:13 AM CDT Performed at: ??[address] ??[id number] Project Mgr: Mikel Luu PhD, Phone: ??[phone] us Jarvis Boston MD LAB BLOOD ORDERABLE S Final Result Performing Organization Address [facility]/State/ZIP Co de Phone Number [facility] - 01 documented in this encounter Visit Diagnoses Diagnosis Iron deficiency anemia due to chronic blood loss- Primary Iron deficiency anemia secondary to blood loss (chronic) Benign hypertension Essential hypertension, benign Vitamin D deficiency B12 deficiency Pure hypercholesterolemia IFG (impaired fasting glucose) documented in this encounter Care Teams Java Consultant Relationship Specialty Start Date End Date Jarvis Boston MD PCP - General 10/29/16 03/14/22 documented as of this encounter
--- OUTSIDE RECORDS SUMMARY | 2024-08-13 05:23 | XMS_ITS | Encounter Summary ---
Author Organization [facility] Address [address] [place] [address] Care Team Providers Care Certified Phlebotomist Name Role Phone Breanna Espana MD Primary Care Provi evelyne Reason for Visit * Reason Comments iron def anemia Encounter Details Date Type Department Care Team (Latest Contact Info) Description 11/26/2021 1:15 PM CDT Office Visit [facility] [address] [place] [address] [address] [place] [phone] Breanna Espana MD [address] [place] [address] Pure hypercholesterolemia (Primary Dx); Hypertensive heart disease with chronic combined systolic and diastolic congestive heart failure (HCC); Recurrent major depressive disorder, in partial remission (HCC); Morbid obesity (CMS/HCC) (HCC); Vitamin D deficiency; Chronic pain syndrome; B12 deficiency; Mild persistent asthma without complication Social History [...] on file Legal Sex 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 Gender Identity Female 09/15/2022 2:42 PM OPTICAL GLASS INSPECTOR Sexual Orientation Straight 09/15/2022 2: 42 PM OPTICAL GLASS INSPECTOR documented as of this encounter Last Filed Vital Signs Vital Sign Reading Time Taken Comments Blood Pressure 136/78 11/26/2021 12:58 PM CDT Pulse 68 11/26/2021 12:58 PM CDT Temperature - - Respiratory Rate 16 11/26/2021 12:58 PM CDT Oxygen Saturation - - Inhaled Oxygen Concentration - - Weight - - Height - - Body Mass Index - - documented in this encounter Ordered Prescriptions Prescription Sig Dispense Quantity Refills Last Filled Start Date End Date HYDROcodone-acetam inophen ([place]) 5-325 mg per tabletIndications: Pain Take 1 tablet by mouth every 6 hours as needed for pain 120 tablet 11/26/2021 03/08/2022 documented in this encounter Progress Notes * Breanna Espana MD - 11/26/2021 1:15 PM CDT Subjective/Objective Patient ID: Lupis Juarez is a 76 y.o. female. Chief Complaint iron def anemia off iron off aleve. igt lipids htn arthma. HPI Review of Systems Constitutional: Negative. HENT: Negative [...] Neurological: Negative. Hematological: Negative. Psychiatric/Behavioral: Negative. Vitals: 11/26/21 1258 BP: 136/78 Pulse: 68 Resp: 16 Physical Exam Constitutional: Appearance: She is well-developed. She is obese. HENT: Head: Normocephalic and atraumatic. Eyes: Pupils: Pupils are equal, round, and reactive to light. Cardiovascular: Rate and Rhythm: Normal rate and regular rhythm. Pulmonary: Effort: Pulmonary effort is normal. Breath sounds: Normal breath sounds. Abdominal: General: Bowel sounds are normal. Palpations: Abdomen is soft. Musculoskeletal: General: Normal range of motion. Cervical back: Normal range of motion and neck supple. Skin: General: Skin is warm and dry. Comments: botoh lower legs scaes and no open spots Neurological: Mental Status: She is alert and oriented to person, place, and time. Psychiatric: Behavior: Behavior normal. Thought Content: Thought content normal. Judgment: Judgment normal. Assessment/Plan Diagnoses and all orders for this visit: Pure hypercholesterolemia (Primary) Assessment & Plan: ldl at 70 and on 1/2 pil and stay onYour cholesterol in the form of ldl (bad) cholesterol,hdl(good)cholesterol and triglycerides are monitored. The triglycerides respond [...] be remembered along with whole milk products Andlimited. Hypertensive heart disease with chronic combined systolic and diastolic congestive heart failure (HCC) Assessment & Plan: stble fluid status and keep meds same. bp good but massive arm. No changes in meds Recurrent major depressive disorder, in partial remission ([facility]) Assessment & Plan: Still lsmiles stgable ulnderlying depression stay with meds Morbid obesity (CMS/HCC) ([facility]) Assessment & Plan: Not weight caable but morbidsMorbid obesity is a bmi of 40 or more. Targeted weight loss with portion controll(calorie restriction) ,increased basal activity Levels along with adding an exercise program to lead to gradual weight loss,.Any program of change from weight watchers. To nutra system along with others work. Vitamin D deficiency Assessment & Plan: D perfect at 50 and ke same Chronic pain syndrome Assessment & Plan: Stable 120 norco voer 8 months stable B12 deficiency Assessment & Plan: Touch high and suggest cutting to 4 days a week Mild persistent asthma without complication Assessment & Plan: Stable state and uses medsAsthma is the excess production of secretions and reactivity/twitchiness of the breathing / bronchial tubes. This can be chronic ,acute on chronic or episodic(acute).Inhaledmaterials in the form of pollutants( gaseous or particles) pollens ,exercise or infections that areusually viral. Some people never have issues unless [...] getting worse then an urgent visit to theer is in order or at least a return to the clinic for a re-evaluation of your meds/treament. Other orders - HYDROcodone-acetaminophen ([place]) 5-325 mg per tablet; Take 1 tablet by mouth every 6 hours as needed for pain Side effects, risks, interactions reviewed with patient. Indications for testing discussed. Any further problems to contact us. She was told what to look out for and verbalized understanding. The patient was given the opportunity to have all questions answered today and was in agreement with the plan of care. documented in this encounter Miscellaneous Notes * Assessment & Plan Note - Breanna Espana MD - 11/26/2021 1:38 PM CDTAssociated Problem(s): Mild persistent asthma without complication Stable state and uses medsAsthma is the excess production of secretions and reactivity/twitchiness of the breathing / bronchial tubes. This can be chronic ,acute on chronic or episodic(acute).Inhaledmaterials in the form of pollutants( gaseous or particles) pollens ,exercise or infections that areusually viral. Some people never have issues unless [...] getting worse then an urgent visit to theer is in order or at least a return to the clinic for a re-evaluation of your meds/treament. * Assessment & Plan Note - Breanna Espana MD - 11/26/2021 1:38 PM CDTAssociated Problem(s): B12 deficiency Touch high and suggest cutting to 4 days a week * Assessment & Plan Note - Breanna Espana MD - 11/26/2021 1:37 PM CDTAssociated Problem(s): Chronic pain syndrome Stable 120 norco voer 8 months stable * Assessment & Plan Note - Breanna Espana MD - 11/26/2021 1:36 PM CDTAssociated Problem(s): Class 3 severe obesity due to excess calories with serious comorbidity and body mass index (BMI) of 40.0 to 44.9 in adult (HCC) Not weight caable but morbidsMorbid obesity is a bmi of 40 or more. Targeted weight loss with portion controll(calorie restriction) ,increased basal activity Levels along with adding an exercise program to lead to gradual weight loss,.Any program of change from weight watchers. To nutra system along with others work. * Assessment & Plan Note - Breanna Espana MD - 11/26/2021 1:35 PM CDTAssociated Problem(s): Hypertensive heart disease with congestive heart failure (HCC) (Deleted) stble fluid status and keep meds same. bp good but massive arm. No changes in meds * Assessment & Plan Note - Breanna Espana MD - 11/26/2021 1:29 PM CDTAssociated Problem(s): Vitamin D deficiency D perfect at 50 and ke same * Assessment & Plan Note - Breanna Espana MD - 11/26/2021 1:28 PM CDTAssociated Problem(s): Recurrent major depressive disorder, in partial remission (HCC) Still lsmiles stgable ulnderlying depression stay with meds * Assessment & Plan Note - Breanna Espana MD - 11/26/2021 1:28 PM CDTAssociated Problem(s): Pure hypercholesterolemia ldl at 70 and on 2 pil and stay onYour cholesterol in the form of ldl (bad) cholesterol,hdl(good)cholesterol and triglycerides are monitored. The triglycerides respond [...] be remembered along with whole milk products Andlimited. * Assessment & Plan Note - Tristan Watson MD - 11/26/2021 1:15 PM CDT Associated Problem(s): Takotsubo cardiomyopathy >>ASSESSMENT AND PLAN FOR HYPERTENSIVE HEART DISEASE WITH CONGESTIVE HEART FAILURE (HCC) WRITTEN ON 11/26/2021 1:36 PM BY BREANNA ESPANA MD stble fluid status and keep meds same. bp good but massive arm. No changes in meds documented in this encounter Plan of Treatment Not on file documented as of this encounter Visit Diagnoses Diagnosis Pure hypercholesterolemia- Primary Hypertensive heart disease with chronic combined systolic and diastolic congestive heart failure (HCC) Recurrent major depressive disorder, in partial remission (HCC) Morbid obesity (HCC) Morbid obesity Vitamin D deficiency Chronic pain syndrome B12 deficiency Mild persistent asthma without complication documented in this encounter Discontinued Medications Medication Sig Discontinue Reason Start Date End Da te HYDROcodone-acetaminophe n ([place]) 5-325 mg per tabletIndications:Pain Take 1 tablet by mouth every 6 hours as needed for pain Reorder 01/27/2021 11/26/2021 documented as of this encounter Care Teams Certified Phlebotomist Relationship Specialty Start Date End Date Breanna Espana MD PCP - General 10/29/16 03/14/22 documented as of this encounter
--- OUTSIDE RECORDS SUMMARY | 2024-08-13 05:23 | XMS_ITS | Encounter Summary ---
Author Organization [facility] Address [address] [place] [address] Care Team Providers Care Blood Tester Name Role Phone Breanna Espana MD Primary Care Provi evelyne Reason for Visit * Reason Comments Preventative Care Encounter Details Date Type Department Care Team (Late st Contact Info) Description 05/20/2020 2:00 PM CDT Office Visit [facility] [address] [place] [address] [address] [place] [id number] Breanna Espana MD [address] [place] [id number] Physical exam (Primary Dx); Iron deficiency anemia due to chronic blood loss; Chronic stasis dermatitis; Benign hypertension; Chronic pain syndrome; Morbid obesity (CMS/HCC); Pure hypercholesterolemia; Recurrent major depressive disorder, in partial remission ([facility]/HCC); Vitamin D deficiency; Mild persistent asthma without complication; B12 deficiency; Hypertensive heart disease with chronic diastolic congestive heart failure ([facility]/HCC); At high risk for falls per Rory fall risk assessment scale Social History Tobacco Use Types Packs/Day Years [...] on file 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 Gender Identity Female 09/15/2022 2:42 PM EXPRESS CLERK Sexual Orientation Straight 09/15/2022 2: 42 PM EXPRESS CLERK documented as of this encounter Last Filed Vital Signs Vital Sign Reading Time Taken Comments Blood Pressure 124/72 05/20/2020 2:07 PM CDT Pulse 74 05/20/2020 2:07 PM CDT Temperature - - Respiratory Rate 16 05/20/2020 2:07 PM CDT Oxygen Saturation - - Inhaled Oxygen Concentration - - Weight - - Height - - Body Mass Index - - documented in this encounter Ordered Prescriptions Prescription Sig Dispense Quantity Refills Last Filled Start Date End Date cyanocobalamin (Vitamin B-12) 500 mcg tabletIndications:P revention of Vitamin B12 Deficiency Take mond thru frid and skip tue and 05/20/2020 05/28/2021 atorvastatin (LIPITOR) 10 mg tablet 1/2 a day 45 tablet 3 05/20/2020 05/28/2021 cloNIDine (CATAPRES) 0.1 mg tablet 1 po q day 90 tablet 3 05/20/2020 03/19/2021 documented in this encounter Progress Notes * Breanna Espana MD - 05/20/2020 2:00 PM CDT Subjective/Objective Patient ID: Lupis Juarez is a 75 y.o. female. Well exam htn lipids igt chronic sta tsis dermatitis stasis ulcers no peripheral vascular disease Chief Complaint Preventative Care HPI Review of Systems Constitutional: Negative. HENT: Negative. Eyes: Negative. Respiratory: Negative. Cardiovascular: Negative. Gastrointestinal: Negative. Endocrine: Negative. Genitourinary: Negative. Musculoskeletal: Positive for gait problem. Knee pain Skin: Negative. Bilateral lower leg dermattis. Allergic/Immunologic: Negative. Hematological: Negative. Psychiatric/Behavioral: Negative. All other systems reviewed and are negative. Vitals: 05/20/20 1407 BP: 124/72 Pulse: 74 Resp: 16 Physical Exam Constitutional: General: She is not in acute distress. Appearance: She is well-developed. She is not diaphoretic. HENT: Head: Normocephalic and atraumatic. Right Ear: External ear normal. Left Ear: External ear normal. Nose: Nose normal. Eyes: General: No scleral icterus. Right eye: No discharge. Left eye: No discharge. Conjunctiva/sclera: Conjunctivae normal. Pupils: Pupils are equal, round, and reactive to light. Neck: Musculoskeletal: Normal range of motion and neck supple. Thyroid: No thyromegaly. Vascular: No JVD. Trachea: No tracheal deviation. Cardiovascular: Rate and Rhythm: Normal rate. Rhythm irregular. Heart sounds: Normal heart sounds. No murmur. No friction rub. No gallop. Pulmonary: Effort: Pulmonary effort is normal. No respiratory distress. Breath sounds: Normal breath sounds. No stridor. No wheezing or rales. Chest: Chest wall: No tenderness. Abdominal: General: Bowel sounds are normal. There is no distension. Palpations: Abdomen is soft. There is no mass. Tenderness: There is no abdominal tenderness. There is no guarding or rebound. Hernia: No hernia is present. Musculoskeletal: Normal range of motion. General: No tenderness or deformity. Lymphadenopathy: Cervical: No cervical adenopathy. Skin: General: Skin is warm and dry. Capillary Refill: Capillary refill takes less than 2 seconds. Coloration: Skin is not pale. Findings: No erythema or rash. Neurological: Mental Status: She is alert and oriented to person, place, and time. Cranial Nerves: No cranial nerve deficit. Motor: No abnormal muscle tone. Coordination: Coordination normal. Deep Tendon Reflexes: Reflexes are normal and symmetric. Reflexes normal. Psychiatric: Behavior: Behavior normal. Thought Content: Thought content normal. Judgment: Judgment normal. Assessment/Plan Diagnoses and all orders for this visit: Physical exam (Primary) Assessment & Plan: High fall risk deprieosn screen nl cog screen nl flyu and p sh ot today Had tdap uop to date. Shingles shot condier. anne not able give size and infirmity and passed on Testing unless issue forced.Saurabh suggeseted and not willing. Iron deficiency anemia due to chronic blood loss Assessment & Plan: Nl blood cnts andnl iron stop the iro pills. Chronic stasis dermatitis Assessment & Plan: Chronic stasis with topical rx and helpihng and cont as doing Benign hypertension Assessment & Plan: The bp And heart rate low enough [...] be able to reach the goal bp. Chronic pain syndrome Assessment & Plan: chjronic pain from knees an dhusband contorlling drugs Morbid obesity ([facility]) Assessment & Plan: Morbid obesity is a bmi of 40 or more. Targeted weight loss with portion controll(calorie restriction) ,increased basal activity Levels along with adding an exercise program to lead to gradual weightloss,.Any program of change from weight watchers. To nutra system along with others work. Pure hypercholesterolemia Assessment & Plan: ldl at 104 and start atorvsaitn 10 and take a pill and crush And divide over trhe weekYour cholesterol in the form of ldl (bad) cholesterol,hdl(good) cholesterol and triglycerides are monitored. The triglycerides respond to reduction/controll of your simple carbs/sugars In such items as sugared soda /sweet tea along with fruit juices(containing natural sugar) even if no added sugar is added. LDL cholesterol is reduced with reducing daily intake of fats and mirlande. saturated fats. The monosaturated fats like olive oil are not harmful except in the calories they contained. Whole milk cheese needs to be remembered along with whole milk products And limited. Recurrent major depressive disorder, in partial remission ([facility]) Assessment & Plan: Well lcontorlled iw meds Vitamin D deficiency Assessment & Plan: Low nl at 35 and stay and recheck Mild persistent asthma without complication Assessment & Plan: Well contorll with meds B12 deficiency Assessment & Plan: b12 up to 1400 and Drop down to 500 mond thru frid and skip sat and sund Hypertensive heart disease with chronic diastolic congestive heart failure ([facility]) Assessment & Plan: Fluid status controlled with meds and stay ion current meds except drop the Clonidine to nightly only At high risk for falls per Rory fall risk assessment scale Assessment & Plan: Cared for by In wheelchair Other orders - cloNIDine (CATAPRES) 0.1 mg tablet; 1 po q day - Flu Vaccine Quad High Dose PF 65Y+ IM - Fluzone High Dose Quad - atorvastatin (LIPITOR) 10 mg tablet; 1/2 a day - cyanocobalamin (Vitamin B-12) 500 mcg tablet; Take mond thru frid and skip sat and sund - Pneumococcal polysaccharide vaccine 23-valent greater than or equal to 2yo subcutaneous/IM (PNEUMOVAX) Side effects, risks, interactions reviewed with patient. [...] Plan Note - Breanna Espana MD - 05/20/2020 2:33 PM CDTAssociated Problem(s): PE (physical exam), annual High fall risk deprieosn screen nl cog screen nl flyu and p sh ot today Had tdap uop to date. Shingles shot condier. anne not able give size and infirmity and passed on Testing unless issue forced.Saurabh suggeseted and not willing. * Assessment & Plan Note - Breanna Espana MD - 05/20/2020 2:32 PM CDTAssociated Problem(s): At high risk for falls per Rory fall risk assessment scale Cared for by In wheelchair * Assessment & Plan Note - Breanna Espana MD - 05/20/2020 2:31 PM CDTAssociated Problem(s): Hypertensive heart disease with congestive heart failure (HCC) (Deleted) Fluid status controlled with meds and stay ion current meds except drop the Clonidine to nightly only * Assessment & Plan Note - Breanna Espana MD - 05/20/2020 2:28 PM CDTAssociated Problem(s): B12 deficiency b12 up to 1400 and Drop down to 500 mond thru frid and skip sat and sund * Assessment & Plan Note - Breanna Espana MD - 05/20/2020 2:25 PM CDTAssociated Problem(s): Mild persistent asthma without complication Well contorll with meds * Assessment & Plan Note - Breanna Espana MD - 05/20/2020 2:24 PM CDTAssociated Problem(s): Vitamin D deficiency Low nl at 35 and stay and recheck * Assessment & Plan Note - Breanna Espana MD - 05/20/2020 2:24 PM CDTAssociated Problem(s): Recurrent major depressive disorder, in partial remission (HCC) Well lcontorlled [facility] meds * Assessment & Plan Note - Breanna Espana MD - 05/20/2020 2:17 PM CDTAssociated Problem(s): Pure hypercholesterolemia ldl at 104 and start atorvsaitn 10 and take a pill and crush And divide over trhe weekYour cholesterol in the form of ldl (bad) cholesterol,hdl(good) cholesterol and triglycerides are monitored. The triglycerides respond to reduction/controll of your simple carbs/sugars In such items as sugared soda /sweet tea along with fruit juices(containing natural sugar) even if no added sugar is added. LDL cholesterol is reduced with reducing daily intake of fats and mirlande. saturated fats. The monosaturated fats like olive oil are not harmful except in the calories they contained. Whole milk cheese needs to be remembered along with whole milk products And limited. * Assessment & Plan Note - Breanna Espana MD - 05/20/2020 2:17 PM CDTAssociated Problem(s): Class 3 severe obesity [...] Plan Note - Breanna Espana MD - 05/20/2020 2:16 PM CDTAssociated Problem(s): Chronic pain syndrome chjronic pain from knees an dhusband contorlling drugs * Assessment & Plan Note - Breanna Espana MD - 05/20/2020 2:15 PM CDTAssociated Problem(s): Benign hypertension The bp And heart rate low enough [...] bp. * Assessment & Plan Note - Breanna Espana MD - 05/20/2020 2:15 PM CDTAssociated Problem(s): Chronic stasis dermatitis Chronic stasis with topical rx and helpihng and cont as doing * Assessment & Plan Note - Breanna Espana MD - 05/20/2020 2:14 PM CDTAssociated Problem(s): Iron deficiency anemia due to chronic blood loss Nl blood cnts andnl iron stop the iro pills. * Assessment & Plan Note - Tristan Watson MD - 05/20/2020 2:00 PM CDT Associated Problem(s): Takotsubo cardiomyopathy >>ASSESSMENT AND PLAN FOR HYPERTENSIVE HEART DISEASE WITH CONGESTIVE HEART FAILURE (HCC) WRITTEN ON 05/20/2020 2:31 PM BY BREANNA ESPANA MD Fluid status controlled with meds and stay ion current meds except drop the Clonidine to nightly only documented in this encounter Plan of Treatment Not on file documented as of this encounter Visit Diagnoses Diagnosis Physical exam- Primary Unspecified general medical examination Iron deficiency anemia due to chronic blood loss Iron deficiency anemia secondary to blood loss (chronic) Chronic stasis dermatitis Benign hypertension Essential hypertension, benign Chronic pain syndrome Morbid obesity (HCC) Morbid obesity Pure hypercholesterolemia Recurrent major depressive disorder, in partial remission (HCC) Vitamin D deficiency Mild persistent asthma without complication B12 deficiency Hypertensive heart disease with chronic diastolic congestive heart failure (CMS/HCC) (HCC) At high risk for falls per Rory fall risk assessment scale documented in this encounter Discontinued Medications Medication Sig Discontinue Reason Start Date End Da te cloNIDine (CATAPRES) 0.1 mg tablet TAKE 1 TABLET(0.1 MG) BY MOUTH TWICE DAILY Reorder 04/02/2020 05/20/2020 ferrous sulfate 325 mg (65 mg of elemental iron) tabletIndications:Iron Deficiency Anemia Take 1 tablet (325 mg total) by mouth 2 (two) times a day with meals 07/09/2019 05/20/2020 documented as of this encounter Orders Immunization/Injection Count Last Ordered Date First Ordered Date FLU VACCINE HIGH DOSE QUAD P F 65Y+ IM - FLUZONE HIGH DOS 1 05/20/2020 PNEUMOCOCCAL POLYSACCHARIDE VACCINE 23-VALENT =>2YO SQ IM 1 05/20/2020 documented in this encounter Care Teams Blood Tester Relationship Specialty Start Date End Date Breanna Espana MD PCP - General 10/29/16 03/14/22 documented as of this encounter
--- OUTSIDE RECORDS SUMMARY | 2024-08-13 05:23 | XMS_ITS | Encounter Summary ---
Author Organization [facility] Address [address] [place] [address] Care Team Providers Care End Worker Name Role Phone Jarvis Boston MD Primary Care Provi [facility] Encounter Details Date Type Department Care Team (Late st Contact Info) Description 05/23/2019 [facility] Only [facility] [address] [place] [address] [address] [place] [id number] Jarvis Boston MD [address] [place] [address] Lymphedema (Primary Dx) Social History Tobacco Use Types [...] on file Legal Sex Female 11:52 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
--- OUTSIDE RECORDS SUMMARY | 2024-08-13 05:23 | XMS_ITS | Encounter Summary ---
Author Organization [facility] Address [address] [place] [address] Care Team Providers Care Feed Mill Supervisor Name Role Phone Jarvis Boston MD Primary Care Provi [facility] Encounter Details Date Type Department Care Team (Late st Contact Info) Description 08/10/2019 Telephone [facility] [address] [place] [address] Jarvis Boston MD [address] [place] [address] Social History Tobacco Use Types [...] on file Legal Sex Female 11:52 PM SITE ENGINEER Gender Identity Female 09/15/2022 2:42 PM SITE ENGINEER Sexual Orientation Straight 09/15/2022 2: 42 PM SITE ENGINEER documented as of this encounter Miscellaneous Notes * Telephone Encounter - Christina Vargas MA - 08/13/2019 3:26 PM CST [facility] notified of message ENGINEER * Telephone Encounter - Christina Vargas MA - 08/10/2019 1:46 PM CST lmom to cb for [facility] at [facility] ENGINEER * Telephone Encounter - Cayetano Chawla PA - 08/10/2019 1:37 PM SITE ENGINEER yes ENGINEER * Telephone Encounter - Christina Vargas MA - 08/10/2019 1:19 PM CST jw out of office to cayetano ENGINEER * Telephone Encounter - Linette Adams - 08/10/2019 1:14 PM CST [facility] received hh referral. Would like to know if JW will sign orders and follow pt? Please advise ENGINEER documented in this encounter Plan of Treatment Not on file documented as of this encounter Visit Diagnoses Not on filedocumented in this encounter Care Teams Feed Mill Supervisor Relationship Specialty Start Date End Date Jarvis Boston MD PCP - General 10/29/16 03/14/22 documented as of this encounter
--- OUTSIDE RECORDS SUMMARY | 2024-08-13 05:23 | XMS_ITS | Encounter Summary ---
Author Organization [facility] Healthcare Address [address] [place] [address] Care Team Providers Care Laborer Tin Can Name Role Phone Jarvis Boston MD Primary Care Provi [facility] Encounter Details Date Type Department Care Team (Late st Contact Info) Description 11/20/2021 2:15 PM CDT Lab [address] [address] Benign hypertension; Chronic pain syndrome; Iron deficiency anemia due to chronic blood loss; IGT (impaired glucose tolerance); Vitamin D deficiency; B12 deficiency; Acquired hypothyroidism Social History Tobacco Use Types [...] on file Legal Sex Female 11:52 PM LEAD DIE MOLDER Gender Identity Female 09/15/2022 2:42 PM LEAD DIE MOLDER Sexual Orientation Straight 09/15/2022 2: 42 PM LEAD DIE MOLDER documented as of this encounter Plan of Treatment Not on file documented as of this encounter Procedures Procedure Name Priority Date/Time Associated Diagnosis Comments EGFR Routine 11/20/2021 8:44 AM CDT Benign hypertension Chronic pain syndrome Iron deficiency anemia due to chronic blood loss DIFFERENTIAL AUTO Routine 11/20/2021 8:4 4 AM CDT Benign hypertension Chronic pain syndrome Iron deficiency anemia due to chronic blood loss IRON PROFILE W/ IBC Routine 11/20/2021 8 :44 AM CDT Benign hypertension Chronic pain syndrome Iron deficiency anemia due to chronic blood loss CBC WITH AUTO DIFFERENTIAL Routine 11/20/2021 8:44 AM CDT Benign hypertension Chronic pain syndrome Iron deficiency anemia due to chronic blood loss VITAMIN D 25 HYDROXY Routine 11/20/2021 8:44 AM CDT Benign hypertension Chronic pain syndrome Vitamin D deficiency Iron deficiency anemia due to chronic blood loss TSH Routine 11/20/2021 8:44 AM CDT Benign hypertension Chronic pain syndrome Iron deficiency anemia due to chronic blood loss Acquired hypothyroidism HEMOGLOBIN A1C Routine 11/20/2021 8:44 AM CDT IGT (impaired glucose tolerance) VITAMIN B12 Routine 11/20/2021 8:44 AM CDT B12 deficiency Benign hypertension Chronic pain syndrome Iron deficiency anemia due to chronic blood loss LIPID PANEL Routine 11/20/2021 8:44 AM CDT Benign hypertension Chronic pain syndrome Iron deficiency anemia due to chronic blood loss COMPREHENSIVE METABOLIC PANEL Routine 11/20/2021 8:44 AM CDT Benign hypertension Chronic pain syndrome Iron deficiency anemia due to chronic blood loss documented in this encounter Results * eGFR (11/20/2021 8:44 AM CDT) [facility] eGFR 91 mL/min/1. 73 m2 [facility] Comment: Interpretive [...] interpretive data was last reviewed 2021. Blood 11/20/2021 8:44 AM CDT 11/20/2021 2:43 PM CDT Jarvis Boston MD LAB BLOOD ORDERABLE S Final Result [facility] [id number] Department [place] [address] * Differential, auto (11/20/2021 8:44 AM CDT) Neutrophil abs 6.2 1.7 - 6.5 K/cumm [facility] Imm gran abs 0.1 0.0 - 0.1 K/cumm [facility] Lymphocyte abs 2.4 0.8 - 3.3 K/cumm [facility] Monocyte abs 0.7 0.2 - 0.8 K/cumm [facility] Eosinophil abs 0.0 0.0 - 0.5 K/cumm [facility] Basophil abs 0.1 0.0 - 0.1 K/cumm [facility] Neutrophil pct 65.7 % [facility] Comment: Interpretive Data Percent cell count reference ranges are not reported, since discordance with absolute values may lead to misinterpretation of CBC data. Current Interpretive Data was last revised on 2017. Imm gran pct 0.6 % [facility] Comment: Interpretive Data Percent cell count reference ranges are not reported, since discordance with absolute values may lead to misinterpretation of CBC data. Current Interpretive Data was last revised on 2017. Lymphocyte pct 25.4 % [facility] Comment: Interpretive Data Percent cell count reference ranges are not reported, since discordance with absolute values may lead to misinterpretation of CBC data. Current Interpretive Data was last revised on 2017. Monocyte pct 7.4 % [facility] Comment: Interpretive Data Percent cell count reference ranges are not reported, since discordance with absolute values may lead to misinterpretation of CBC data. Current Interpretive Data was last revised on 2017. Eosinophil pct 0.0 % [facility] Comment: Interpretive Data Percent cell count reference ranges are not reported, since discordance with absolute values may lead to misinterpretation of CBC data. Current Interpretive Data was last revised on 2017. Basophil pct 0.9 % [facility] Comment: Interpretive Data Percent cell count reference ranges are not reported, since discordance with absolute values may lead to misinterpretation of CBC data. Current Interpretive Data was last revised on 2017. Blood 11/20/2021 8:44 AM CDT 11/20/2021 2:29 PM CDT Jarvis Boston MD LAB BLOOD ORDERABLE S Final Result Performing Organization Address [facility] Co de Phone Number TATE RAMOS [id number] [facility] [place] [address] * TSH (11/20/2021 8:44 AM CDT) Thyroid Stimulating Hormone 4.05 0.30 - 4.20 mcIUnit/mL [facility] Blood 11/20/2021 8:44 AM CDT 11/20/2021 2:29 PM CDT Jarvis Boston MD LAB BLOOD ORDERABLE S Final Result Performing Organization Address [facility] Co de Phone Number TATE [phone] [facility] [place] [address] * (ABNORMAL) Vitamin B12 (11/20/2021 8:44 AM CDT) Pathologist [facility] Vitamin B12 1,280(H) 230 - 1,250 pg/mL [facility] Blood 11/20/2021 8:44 AM CDT 11/20/2021 2:29 PM CDT Jarvis Boston MD LAB BLOOD ORDERABLE S Final Result Performing Organization Address [facility] Co de Phone Number TATE RAMOS [phone] Department [place] [address] * Vitamin D 25 hydroxy (11/20/2021 8:44 AM CDT) Pathologist [facility] Vitamin D 25-OH 48 30 - 80 ng/mL [facility] Blood 11/20/2021 8:44 AM CDT 11/20/2021 2:29 PM CDT Jarvis Boston MD LAB BLOOD ORDERABLE S Final Result Performing Organization Address City/[facility] de Phone Number TATE RAMOS [address] [facility] [place] [address] * (ABNORMAL) CBC with auto differential (11/20/2021 8:44 AM CDT) Pathologist [facility] WBC 9.5 3.8 - 9.9 K/cumm [facility] Hgb 14.3 11.9 - 15.5 g/dL [facility] Hct 45.0 35.6 - 45.5 % [facility] Plt 277 150 - 400 K/cumm [facility] MPV 9.8 9.1 - 12.3 fL [facility] RBC 4.60 3.90 - 5.20 M/cumm [facility] MCV 97.8(H) 81.3 - 96.4 fL [facility] MCH 31.1 27.1 - 33.3 pg [facility] MCHC 31.8(L) 32.3 - 35.7 g/dL [facility] RDW CV 14.0 11.1 - 14.9 % [facility] RDW SD 50.9(H) 35.7 - 48.1 fL [facility] NRBC abs 0.00 0.00 - 0.01 K/cumm [facility] Blood 11/20/2021 8:44 AM CDT 11/20/2021 2:29 PM CDT Jarvis Boston MD LAB BLOOD ORDERABLE S Final Result Performing Organization Address [facility] de Phone Number TATE RAMOS [phone] Department [place] [address] * (ABNORMAL) Iron profile w/ IBC (11/20/2021 8:44 AM CDT) Iron 51 35 - 145 mcg/dl [facility] TIBC 242(L) 250 - 400 mcg/dL [facility] Transferrin saturation 21 20 - 50 % [facility] Blood 11/20/2021 8:44 AM CDT 11/20/2021 2:29 PM CDT Jarvis Boston MD LAB BLOOD ORDERABLE S Final Result Performing Organization Address [facility] de Phone Number TATE RAMOS [id number] Department [place] [address] * (ABNORMAL) Comprehensive metabolic panel (11/20/2021 8:44 AM CDT) Sodium 138 135 - 145 mmol/L [facility] Potassium, pl 4.0 3.3 - 4.9 mmol/L [facility] Chloride 100 97 - 110 mmol/L [facility] CO2 25 22 - 32 mmol/L [facility] Anion gap 13 2 - 15 mmol/L [facility] BUN 16 8 - 25 mg/dL [facility] Creatinine 0.68 0.60 - 1.10 mg/dL [facility] Glucose 101 70 - 199 mg/dL [facility] Comment: [...] 2017. Calcium 9.7 8.5 - 10.3 mg/dL [facility] Bilirubin, total 0.4 0.1 - 1.2 mg/dL [facility] Protein, pl 7.4 6.5 - 8.5 g/dL [facility] Albumin 3.8 3.5 - 5.0 g/dL [facility] Alk phos 170(H) 40 - 130 Units/L [facility] ALT 15 7 - 45 Units/L [facility] AST 24 10 - 45 Units/L [facility] Blood 11/20/2021 8:44 AM CDT 11/20/2021 2:29 PM CDT Jarvis Boston MD LAB BLOOD ORDERABLE S Final Result Performing Organization Address [facility] de Phone Number [facility] [address] Department [place] [address] * Hemoglobin A1c (11/20/2021 8:44 AM CDT) [facility] Signature Hgb A1C 5.1 4.0 - 5.6 % [facility] Estimated Average Glucose 100 mg/dL [facility] Comment: The ADA recommends reporting an estimated Average Glucose (eAG) with all Hemoglobin A1c results using the equation derived from a study of 507 normal and diabetic adults. ??Minority populations were underrepresented and children were not included. ?? (Diabetes Care 31:7445-4825, 2008). ??The eAG is not equivalent to a fasting glucose. Blood 11/20/2021 8:44 AM CDT 11/20/2021 2:29 PM CDT Jarvis Boston MD LAB BLOOD ORDERABLE S Final Result Performing Organization Address [facility]/ZIP Co de Phone Number TATE [address] [facility] Department [place] [address] * Lipid panel (11/20/2021 8:44 AM CDT) [facility] Cholesterol 160 30 - 199 mg/dL [facility] Comment: Interpretive Data Ages < [...] on 2018. Triglycerides 54 <=149 mg/dL [facility] Comment: Interpretive Data Ages [...] on 2018. HDL 81 >=40 mg/dL [facility] Comment: Interpretive Data Ages [...] 2018. LDL, calculated 68 <=129 mg/dL [facility] Comment: Interpretive Data Ages [...] on 2018. Non-HDL Cholesterol 79 mg/dL [facility] Comment: Interpretive Data Ages < [...] last revised on 2018. Chol/HDL ratio 2 [facility] Blood 11/20/2021 8:44 AM CDT 11/20/2021 2:29 PM CDT Jarvis Boston MD LAB BLOOD ORDERABLE S Final Result [facility] [address] Department [place] [address] documented in this encounter Visit Diagnoses Diagnosis Benign hypertension Essential hypertension, benign Chronic pain syndrome Iron deficiency anemia due to chronic blood loss Iron deficiency anemia secondary to blood loss (chronic) IGT (impaired glucose tolerance) Impaired glucose tolerance test Vitamin D deficiency B12 deficiency Acquired hypothyroidism Unspecified hypothyroidism documented in this encounter Care Teams Laborer Tin Can Relationship Specialty Start Date End Date Jarvis Boston MD PCP - General 10/29/16 03/14/22 documented as of this encounter
--- OUTSIDE RECORDS SUMMARY | 2024-08-13 05:23 | XMS_ITS | Encounter Summary ---
Author Organization [facility] Address [address] [place] [address] Care Team Providers Care Transcript Clerk Name Role Phone Jarvis Boston MD Primary Care Provi [facility] Encounter Details Date Type Department Care Team (Late st Contact Info) Description 01/09/2020 Orders Only [facility] [address] [place] [address] Cayetano Chawla PA [address] [facility] [address] [place] [address] Social History Tobacco Use Types Packs/Day Years Used Date Smoking Tobacco: Never Smokeless Tobacco: Never Alcohol Use Standard Drinks/Week Comments Not Currently 0 (1 standard drink = 0.6 oz pur e alcohol) no recently PHQ-2 Answer Date Recorded PHQ-2 Score 0 07/09/2019 Comments Unknown Sex and Gender Information Value Date Recorded Sex Assigned at Not on file Legal Sex Female 11:52 PM METER/RELAY TECHNICIAN Gender Identity Female 09/15/2022 2:42 PM METER/RELAY TECHNICIAN Sexual Orientation Straight 09/15/2022 2: 42 PM METER/RELAY TECHNICIAN documented as of this encounter Plan of Treatment Not on file documented as of this encounter Procedures Procedure Name Priority Date/Time Associated Diagnosis Comments HEMOGLOBIN A1C Routine 01/09/2020 9:02 AM CDT LIPID PANEL Routine 01/09/2020 9:02 AM CDT COMPREHENSIVE METABOLIC PANEL Routine 01/09/2020 9:02 AM CDT documented in this encounter Results * Hemoglobin A1c (01/09/2020 9:02 AM CDT) Hgb A1C 5.1 4.8 - 5.6 % [facility] - 01 Comment: ? Prediabetes: 5.7 - 6.4 ? Diabetes: >6.4 ? Glycemic control for adults with diabetes: <7.0 01/09/2020 9:02 AM CDT 01/09/2020 Narrative [facility] - 01/10/2020 8:14 AM CDT Performed at: ??01 - [facility] ??[id number] Traffic Maintenance Officer: Mikel Luu PhD, Phone: ??[phone] Cayetano BROWNING LAB BLOOD ORDERABLES Fi nal Result Performing Organization Address [facility] [[email or web address]] de Phone Number [facility] - 01 * Lipid panel (01/09/2020 9:02 AM CDT) Pathologist [facility] Cholesterol 187 100 - 199 mg/dL [facility] - 01 Triglycerides 83 0 - 149 mg/dL [facility] - 01 HDL Cholesterol 72 >39 mg/dL [facility] - 01 VLDL 17 5 - 40 mg/dL [facility] - 01 LDL, calculated 98 0 - 99 mg/dL [facility] - 01 01/09/2020 9:02 AM CDT 01/09/2020 Narrative [facility] - 01/10/2020 8:14 AM CDT Performed at: ??01 - [facility] ??[id number] Traffic Maintenance Officer: Mikel Luu PhD, Phone: ??[phone] Cayetano BROWNING LAB BLOOD ORDERABLES Fi nal Result Performing Organization Address [facility] [[email or web address]] de Phone Number [facility] - 01 * (ABNORMAL) Comprehensive metabolic panel (01/09/2020 9:02 AM CDT) Pathologist [facility] Glucose 98 65 - 99 mg/dL [facility] - 01 BUN 26 8 - 27 mg/dL [facility] - 01 Creatinine, Serum 0.76 0.57 - 1.00 mg/dL [facility] - 01 eGFR If NonAfricn Am 79 >59 mL/min/1.7 3 [facility] - 01 eGFR If Africn Am 91 >59 mL/min/1.7 3 [facility] - 01 BUN/creat ratio 34(H) 12 - 28 [facility] - 01 Sodium 140 134 - 144 mmol/L [facility] - 01 Potassium, sr 4.4 3.5 - 5.2 mmol/L [facility] - 01 Chloride 100 96 - 106 mmol/L [facility] - 01 CO2 25 20 - 29 mmol/L [facility] - 01 Calcium 10.7(H) 8.7 - 10.3 mg/dL [facility] - 01 Protein, sr 6.9 6.0 - 8.5 g/dL [facility] - 01 Albumin 4.2 3.7 - 4.7 g/dL [facility] - 01 Globulin, Total 2.7 1.5 - 4.5 g/dL [facility] - 01 A/G Ratio 1.6 1.2 - 2.2 [facility] - 01 Bilirubin, Total 0.5 0.0 - 1.2 mg/dL [facility] - 01 Alk phos 147(H) 39 - 117 IU/L [facility] - 01 AST 17 0 - 40 IU/L [facility] - 01 ALT 16 0 - 32 IU/L [facility] - 01 01/09/2020 9:02 AM CDT 01/09/2020 Narrative [facility] - 01/10/2020 8:14 AM CDT Performed at: ??01 - [facility] [address] ??[id number] Traffic Maintenance Officer: Mikel Luu PhD, Phone: ??[phone] us Cayetano BROWNING LAB BLOOD ORDERABLES Fi nal Result [facility] - 01 documented in this encounter Visit Diagnoses Not on filedocumented in this encounter Care Teams Transcript Clerk Relationship Specialty Start Date End Date Jarvis Boston MD PCP - General 10/29/16 03/14/22 documented as of this encounter
--- OUTSIDE RECORDS SUMMARY | 2024-08-13 05:23 | XMS_ITS | Encounter Summary ---
Author Organization [facility] Address [address] [place] [address] Care Team Providers Care Outside Collector Name Role Phone Breanna Espana MD Primary Care Provi evelyne Reason for Visit * Reason Comments Preventative Care Encounter Details Date Type Department Care Team (Latest Contact Info) Description 05/28/2021 1:30 PM CDT Office Visit [facility] [address] [place] [address] [address] [place] [id number] Breanna Espana MD [address] [place] [id number] Acquired hypothyroidism (Primary Dx); At high risk for falls per Rory fall risk assessment scale; B12 deficiency; Benign hypertension; Chronic pain syndrome; Chronic stasis dermatitis; Hypertensive heart disease with chronic combined systolic and diastolic congestive heart failure (HCC); Morbid obesity (CMS/HCC) (HCC); Pure hypercholesterolemia; Recurrent major depressive disorder, in partial remission (HCC); Physical exam; Vitamin D deficiency; Iron deficiency anemia due to chronic blood loss; Mild persistent asthma without complication; PE (physical exam), annual; Flu vaccine need; IGT (impaired glucose tolerance) Social History Tobacco [...] on file Legal Sex Female 11:52 PM BUTT TRIMMER Gender Identity Female 09/15/2022 2:42 PM BUTT TRIMMER Sexual Orientation Straight 09/15/2022 2: 42 PM BUTT TRIMMER documented as of this encounter Ordered Prescriptions Prescription Sig Dispense Quantity Refills Last Filled Start Date End Date albuterol HFA (ProAir HFA) 90 mcg/actuation inhaler Inhale 2 puffs every 4 (four) hours as needed for shortness of breath As needed for wheezing 3 each 3 05/28/2021 3 atorvastatin (LIPITOR) 10 mg tablet 1/2 a day 45 tablet 3 05/28/2021 2 buPROPion SR (ZYBAN) 150 mg 12 hr tablet Take 1 tablet (150 mg total) by mouth 2 (two) times a day 180 tablet 3 05/28/2021 3 cyanocobalamin (Vitamin B-12) 500 mcg tabletIndications: Prevention of Vitamin B12 Deficiency Take 1/2 tab mond thru frid and skip sat and sund 45 tablet 3 05/28/2021 3 FLUoxetine (PROzac) 40 mg capsule Take 1 capsule (40 mg total) by mouth daily 90 capsule 3 05/28/2021 2 fluticasone propionate (FLONASE) 50 mcg/actuation nasal spray Administer 2 sprays into each nostril daily 48 g 3 05/28/2021 3 fluticasone propion-salmeteroL (Advair Diskus) 250-50 mcg/dose diskus inhaler Inhale 1 puff 2 (two) times a day Rinse mouth with water after use to reduce aftertaste and incidence of candidiasis. Do not swallow. 3 each 3 05/28/2021 2 furosemide (LASIX) 20 mg tablet Take 1 tablet (20 mg total) by mouth 2 (two) times a day 180 tablet 3 05/28/2021 2 loratadine 10 mg capsule Take 1 tablet by mouth daily 90 capsule 3 05/28/2021 2 cloNIDine (CATAPRES) 0.1 mg tablet TAKE 1 TABLET(0.1 MG) BY MOUTH TWICE DAILY 180 tablet 3 05/28/2021 3 irbesartan (AVAPRO) 300 mg tablet TAKE 1 TABLET BY MOUTH EVERY DAY 90 tablet 3 05/28/2021 3 documented in this encounter Progress Notes * Breanna Espana MD - 05/28/2021 1:30 PM CDT Subjective/Objective Patient ID: Lupis Juarez is a 76 y.o. female. Chief Complaint lwell exam htn chroic pain igt l ipids HPI Review of Systems Constitutional: Negative. HENT: Negative for congestion, ear pain, facial swelling, hearing loss, mouth sores, nosebleeds, postnasal drip, rhinorrhea, sinus pressure, sneezing, sore throat, tinnitus, trouble swallowing and voice change. Eyes: Negative. Respiratory: Negative. Cardiovascular: Negative. Gastrointestinal: Negative. Endocrine: Negative. Genitourinary: Negative for decreased urine volume, difficulty urinating, dysuria, flank pain, frequency, genital sores, hematuria and urgency. Nocturia negative Musculoskeletal: Positive for back pain. Skin: Negative for skin lesions Negative for puritis Negative for hives Neurological: Negative. Hematological: Negative. Psychiatric/Behavioral: Negative. Vitals: Physical Exam Constitutional: General: She is not in acute distress. Appearance: She is well-developed. She is not diaphoretic. HENT: Head: Normocephalic and atraumatic. Right Ear: External ear normal. Left Ear: External ear normal. Nose: Nose normal. Eyes: General: No scleral icterus. Right eye: No discharge. Left eye: No discharge. Conjunctiva/sclera: Conjunctivae normal. Pupils: Pupils are equal, round, and reactive to light. Neck: Thyroid: No thyromegaly. Vascular: No JVD. Trachea: No tracheal deviation. Cardiovascular: Rate and Rhythm: Normal rate and regular rhythm. Heart sounds: Normal heart sounds. No murmur heard. No friction rub. No gallop. Pulmonary: Effort: [...] rebound. Hernia: No hernia is present. Musculoskeletal: General: No tenderness or deformity. Normal range of motion. Cervical back: Normal range of motion and neck supple. Lymphadenopathy: Cervical: No cervical adenopathy. Skin: General: Skin is warm and dry. Capillary Refill: Capillary refill takes less than 2 seconds. Coloration: Skin is not pale. Findings: No erythema or rash. Comments: Bilateral lowerr bottom of lower legs chronic changs Neurological: Mental Status: She is alert and oriented to person, place, and time. Cranial Nerves: No cranial nerve deficit. Motor: No abnormal muscle tone. Coordination: Coordination normal. Deep Tendon Reflexes: Reflexes are normal and symmetric. Reflexes normal. Psychiatric: Behavior: Behavior normal. Thought Content: Thought content normal. Judgment: Judgment normal. Assessment/Plan Diagnoses and all orders for this visit: Acquired hypothyroidism (Primary) Assessment & Plan: tsh at 5.1 nd all [facility] and just watch as of now will not be aware of issue from low thyroid At high risk for falls per Rory fall risk assessment scale Assessment & Plan: Lives in wheel chair and bed B12 deficiency Assessment & Plan: b12 deropped to 1239 now on o250 5 days a week and will check as see if drops lower Benign hypertension Assessment & Plan: The bp good and no changds I meds Hypertension, Medical treament revolves around weight control, salt management, and meds when necessary. long as weight loss is necessary and you are able to dropweight we can cont to monitor the blood pressure and not add meds. Once the weight is not changing then it becomes nesessary to add meds to be able to reach the goal bp. Chronic pain syndrome Assessment & Plan: Dos well with 1/2 pill bid Chronic stasis dermatitis Assessment & Plan: chronc and stable Hypertensive heart disease with chronic combined systolic and diastolic congestive heart failure (HCC) Assessment & Plan: Thew bp good and heart stable and bnp dropped to 260 from 1600 2 yrs ago 2 Lasix working well no changs Hypertension, Medical treament revolves around weight control, salt management, and meds when necessary. long as weight loss is necessary and you are able to drop weight we can cont to monitorthe blood pressure and not add meds. Once the weight is not changing then it becomes nesessary to add meds to be able to reach the goal bp. Morbid obesity ([facility]/HCC) ([facility]) Assessment & Plan: Morbid obesity is a bmi of 40 or more. Targeted weight loss with portion controll(calorie restriction) ,increased basal activity Levels along with adding an exercise program to lead to gradual weightloss,.Any program of change from weight watchers. To nutra system along with others work. Pure hypercholesterolemia Assessment & Plan: ldl down to 65 nd keep stagble Your cholesterol in the form of ldl (bad) cholesterol,hdl(good) cholesterol and triglycerides are monitored. The triglycerides respond to reduction/controll of your simple carbs/sugars In such items as sugared soda/sweet tea along with fruit juices(containing natural s ugar) even if no added sugar is added. LDL cholesterol is reduced with reducing daily intake of fats and mirlande. saturated fats. The monosaturated fats like olive oil are not harmful except in the calories they contained. Whole milk cheese needs to be remembered along with whole milk products And limited. Recurrent major depressive disorder, in partial remission ([facility]) Assessment & Plan: reassonable controll and keep mes stable Physical exam Assessment & Plan: Well exzm High fall risk depreoisn screen + and score 8 cognitive screen normal. Colon not repeatedgiven the massive issue and de licnes on there part. Flu shot today and had covid shots. No other md's seeing Vitamin D deficiency Assessment & Plan: Keep d stable and recheck Iron deficiency anemia due to chronic blood loss Assessment & Plan: Check iron and cbc on return Mild persistent asthma without complication Assessment & Plan: Uses bid advair and stay on and rare b reakthru for albuterol PE (physical exam), annual Assessment & Plan: Well exzm High fall risk depreoisn screen + and score 8 cognitive screen normal. Colon not repeatedgiven the massive issue and de licnes on there part. Flu shot today and had covid shots. No other md's seeing Flu vaccine need - Flu Vaccine Quad High Dose PF 65Y+ IM - Fluzone High Dose Quad IGT (impaired glucose tolerance) Assessment & Plan: Check on return to confirm stable Other orders - irbesartan (AVAPRO) 300 mg tablet; TAKE 1 TABLET BY MOUTH EVERY DAY - cloNIDine (CATAPRES) 0.1 mg tablet; TAKE 1 TABLET(0.1 MG) BY MOUTH TWICE DAILY - loratadine 10 mg capsule; Take 1 tablet by mouth daily - furosemide (LASIX) 20 mg tablet; Take 1 tablet (20 mg total) by mouth 2 (two) times a day - fluticasone propion-salmeteroL (Advair Diskus) 250-50 mcg/dose diskus inhaler; Inhale 1 puff 2 (two) times a day Rinse mouth with water after use to reduce aftertaste and incidence of candidiasis. Do not swallow. - fluticasone propionate (FLONASE) 50 mcg/actuation nasal spray; Administer 2 sprays into each nostril daily - FLUoxetine (PROzac) 40 mg capsule; Take 1 capsule (40 mg total) by mouth daily - cyanocobalamin (Vitamin B-12) 500 mcg tablet; Take 1/2 tab mond thru and skip tue and - buPROPion SR (ZYBAN) 150 mg 12 hr tablet; Take 1 tablet (150 mg total) by mouth 2 (two) times a day - atorvastatin (LIPITOR) 10 mg tablet; 1/2 a day - albuterol HFA (ProAir HFA) 90 mcg/actuation inhaler; Inhale 2 puffs every 4 (four) hours as needed for shortness of breath As needed for wheezing Side effects, risks, interactions reviewed with patient. [...] Plan Note - Breanna Espana MD - 05/28/2021 5:16 PM CDTAssociated Problem(s): IGT (impaired glucose tolerance) Check on return to confirm stable * Assessment & Plan Note - Breanna Espana MD - 05/28/2021 1:30 PM CDTAssociated Problem(s): Mild persistent asthma without complication Uses bid advair and stay on and rare b reakthru for albuterol * Assessment & Plan Note - Breanna Espana MD - 05/28/2021 1:30 PM CDTAssociated Problem(s): Iron deficiency anemia due to chronic blood loss Check iron and cbc on return * Assessment & Plan Note - Tristan Watson MD - 05/28/2021 1:30 PM CDT Associated Problem(s): Takotsubo cardiomyopathy >>ASSESSMENT [...] to drop weight we can cont to monitorthe blood pressure and not add meds. Once the weight is not changing then it becomes nesessary to add meds to be able to reach the goal bp. * Addendum Note - Zoila Krishnan MA - 05/28/2021 1:30 PM CDTAddended by: ZOILA KRISHNAN on: 05/28/2021 01:42 PM Modules accepted: Orders * Addendum Note - Zoila Krishnan MA - 05/28/2021 1:30 PM CDTAddended by: ZOILA KRISHNAN on: 05/28/2021 01:58 PM Modules accepted: Orders * Assessment & Plan Note - Breanna Espana MD - 05/28/2021 1:29 PM CDTAssociated Problem(s): Vitamin D deficiency Keep d stable and recheck * Assessment & Plan Note - Breanna Espana MD - 05/28/2021 1:28 PM CDTAssociated Problem(s): PE (physical exam), annual Well exzm High fall risk depreoisn screen + and score 8 cognitive screen normal. Colon not repeatedgiven the massive issue and de licnes on there part. Flu shot today and had covid shots. No other md's seeing * Assessment & Plan Note - Breanna Espana MD - 05/28/2021 1:27 PM CDTAssociated Problem(s): Recurrent major depressive disorder, in partial remission (HCC) reassonable controll and keep mes stable * Assessment & Plan Note - Breanna Espana MD - 05/28/2021 1:26 PM CDTAssociated Problem(s): Pure hypercholesterolemia ldl down to 65 nd keep stagble Your cholesterol in the form of ldl (bad) cholesterol,hdl(good) cholesterol and triglycerides are monitored. The triglycerides respond to reduction/controll of your simple carbs/sugars In such items as sugared soda/sweet tea along with fruit juices(containing natural s ugar) even if no added sugar is added. LDL cholesterol is reduced with reducing daily intake of fats and mirlande. saturated fats. The monosaturated fats like olive oil are not harmful except in the calories they contained. Whole milk cheese needs to be remembered along with whole milk products And limited. * Assessment & Plan Note - Breanna Espana MD - 05/28/2021 1:26 PM CDTAssociated Problem(s): Class 3 severe obesity [...] Plan Note - Breanna Espana MD - 05/28/2021 1:25 PM CDTAssociated Problem(s): Hypertensive heart disease with congestive heart failure (HCC) (Deleted) Thew bp good and heart stable and bnp dropped to 260 from 1600 2 yrs ago 2 Lasix working well no changs Hypertension, Medical treament revolves around weight control, salt management, and meds when necessary. long as weight loss is necessary and you are able to drop weight we can cont to monitorthe blood pressure and not add meds. Once the weight is not changing then it becomes nesessary to add meds to be able to reach the goal bp. * Assessment & Plan Note - Breanna Espana MD - 05/28/2021 1:24 PM CDTAssociated Problem(s): Chronic stasis dermatitis chronc and stable * Assessment & Plan Note - Breanna Espana MD - 05/28/2021 1:24 PM CDTAssociated Problem(s): Chronic pain syndrome Dos well with 1/2 pill bid * Assessment & Plan Note - Breanna Espana MD - 05/28/2021 1:23 PM CDTAssociated Problem(s): Benign hypertension The bp good and no changds I meds Hypertension, Medical treament revolves around weight control, salt management, and meds when necessary. long as weight loss is necessary and you are able to dropweight we can cont to monitor the blood pressure and not add meds. Once the weight is not changing then it becomes nesessary to add meds to be able to reach the goal bp. * Assessment & Plan Note - Breanna Espana MD - 05/28/2021 1:23 PM CDTAssociated Problem(s): B12 deficiency b12 deropped to 1239 now on o250 5 days a week and will check as see if drops lower * Assessment & Plan Note - Breanna Espana MD - 05/28/2021 1:22 PM CDTAssociated Problem(s): At high risk for falls per Rory fall risk assessment scale Lives in wheel chair and bed * Assessment & Plan Note - Breanna Espana MD - 05/28/2021 1:22 PM CDTAssociated Problem(s): Acquired hypothyroidism tsh at 5.1 nd all bu nl and just watch as of now will not be aware of issue from low thyroid documented in this encounter Plan of Treatment Not on file documented as of this encounter Visit Diagnoses Diagnosis Acquired hypothyroidism- Primary Unspecified hypothyroidism At high risk for falls per Rory fall risk assessment scale B12 deficiency Benign hypertension Essential hypertension, benign Chronic pain syndrome Chronic stasis dermatitis Hypertensive heart disease with chronic combined systolic and diastolic congestive heart failure (HCC) Morbid obesity (HCC) Morbid obesity Pure hypercholesterolemia Recurrent major depressive disorder, in partial remission (HCC) Physical exam Unspecified general medical examination Vitamin D deficiency Iron deficiency anemia due to chronic blood loss Iron deficiency anemia secondary to blood loss (chronic) Mild persistent asthma without complication PE (physical exam), annual Flu vaccine need IGT (impaired glucose tolerance) Impaired glucose tolerance test documented in this encounter Discontinued Medications Medication Sig Discontinue Reason Start Date End Da te fluticasone propion-salmeterol (ADVAIR DISKUS) 250-50 mcg/dose diskus inhaler Inhale 1 puff 2 (two) times a day Rinse mouth with water after use to reduce aftertaste and incidence of candidiasis. Do not swallow. Reorder 03/06/2019 05/28/2021 loratadine 10 mg capsule Take 1 tablet by mouth Reorder atorvastatin (LIPITOR) 10 mg tablet 1/2 a day Reorder 05/20/2020 05/28/2021 cyanocobalamin (Vitamin B-12) 500 mcg tabletIndications:Prev ention of Vitamin B12 Deficiency Take mond thru frid and skip sat and sund Reorder 05/20/2020 05/28/2021 fluticasone propionate (FLONASE) 50 mcg/actuation nasal spray SHAKE LIQUID AND USE 2 SPRAYS IN EACH NOSTRIL DAILY Reorder 06/23/2020 05/28/2021 FLUoxetine (PROzac) 40 mg capsule TAKE 1 CAPSULE BY MOUTH EVERY DAY Reorder 07/08/2020 05/28/2021 buPROPion SR (ZYBAN) 150 mg 12 hr tablet TAKE 1 TABLET BY MOUTH TWICE DAILY Reorder 07/28/2020 05/28/2021 irbesartan (AVAPRO) 300 mg tablet TAKE 1 TABLET BY MOUTH EVERY DAY Reorder 09/01/2020 05/28/2021 furosemide (LASIX) 20 mg tablet TAKE 1 TABLET(20 MG) BY MOUTH TWICE DAILY Reorder 01/05/2021 05/28/2021 albuterol HFA (ProAir HFA) 90 mcg/actuation inhaler Inhale 2 puffs every 4 (four) hours as needed for shortness of breath As needed for wheezing Reorder 02/11/2021 05/28/2021 cloNIDine (CATAPRES) 0.1 mg tablet TAKE 1 TABLET(0.1 MG) BY MOUTH TWICE DAILY Reorder 03/19/2021 05/28/2021 documented as of this encounter Orders Immunization/Injection Count Last Ordered Date First Ordered Date FLU VACCINE HIGH DOSE QUAD P F 65Y+ IM - FLUZONE HIGH DOS 1 05/28/2021 documented in this encounter Care Teams Outside Collector Relationship Specialty Start Date End Date Breanna Espana MD PCP - General 10/29/16 03/14/22 documented as of this encounter
--- OUTSIDE RECORDS SUMMARY | 2024-08-13 05:23 | XMS_ITS | Encounter Summary ---
Author Organization [facility] Care Team Providers Care Clinic Physician Director Name Role Phone Jarvis Boston MD Primary Care Provi [facility] Encounter Details Date Type Department Care Team (Latest Contact Info) Description 07/09/2019 Travel Social History Tobacco Use Types Packs/Day Years Used Date Smoking Tobacco: Never Smokeless Tobacco: Never Alcohol Use Standard Drinks/Week Comments Not Currently 0 (1 standard drink = 0.6 oz pur e alcohol) no recently PHQ-2 Answer Date Recorded PHQ-2 Score 0 07/09/2019 Comments Unknown Sex and Gender Information Value Date Recorded Sex Assigned at Not on file Legal Sex Female 11:52 PM 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
--- OUTSIDE RECORDS SUMMARY | 2024-08-13 05:23 | XMS_ITS | Encounter Summary ---
Author Organization [facility] Address [address] [place] [address] Care Team Providers Care Bariatric Coordinator Name Role Phone Jarvis Boston MD Primary Care Provi [facility] Encounter Details Date Type Department Care Team (Late st Contact Info) Description 05/21/2021 9:00 AM CDT Lab [facility] Outpatient Lab at [address] [phone] At high risk for falls per Rory fall risk assessment scale; B12 deficiency; Benign hypertension; Chronic pain syndrome; Hypertensive heart disease with combined systolic and diastolic congestive heart failure, unspecified HF chronicity (HCC); Iron deficiency anemia due to chronic blood loss; Mild persistent asthma without complication; Pure hypercholesterolemia; Vitamin D deficiency Social History Tobacco Use [...] on file Legal Sex Female 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 Gender Identity Female 09/15/2022 2:42 PM FABRIC SEPARATOR OPERATOR Sexual Orientation Straight 09/15/2022 2: 42 PM FABRIC SEPARATOR OPERATOR documented as of this encounter Plan of Treatment Not on file documented as of this encounter Visit Diagnoses Diagnosis At high risk for falls per Rory fall risk assessment scale B12 deficiency Benign hypertension Essential hypertension, benign Chronic pain syndrome Hypertensive heart disease with combined systolic and diastolic congestive heart failure, unspecified HF chronicity (HCC) Iron deficiency anemia due to chronic blood loss Iron deficiency anemia secondary to blood loss (chronic) Mild persistent asthma without complication Pure hypercholesterolemia Vitamin D deficiency documented in this encounter Care Teams Bariatric Coordinator Relationship Specialty Start Date End Date Jarvis Boston MD PCP - General 10/29/16 03/14/22 documented as of this encounter
--- OUTSIDE RECORDS SUMMARY | 2024-08-13 05:23 | XMS_ITS | Encounter Summary ---
Author Organization [facility] Address [address] [place] [address] Care Team Providers Care Director Of Digital Platforms Name Role Phone Breanna Espana MD Primary Care Provi [facility] Reason for Visit * Reason Comments Hypertension Encounter Details Date Type Department Care Team (Late st Contact Info) Description 11/20/2020 3:15 PM CDT Office Visit [facility] [address] [place] [address] [address] [place] [phone] Breanna Espana MD [address] [place] [id number] Chronic pain syndrome (Primary Dx); Hypertensive heart disease with chronic diastolic congestive heart failure (CMS/HCC); Vitamin D deficiency; B12 deficiency; Morbid obesity (CMS/HCC); Pure hypercholesterolemia; Iron deficiency anemia due to chronic blood loss; Recurrent major depressive disorder, in partial remission (CMS/HCC) Social History Tobacco Use Types Packs/Day Years [...] on file Legal Sex Female 11:[address]ROL OFFICER Gender Identity Female 09/15/2022 2:[address] PATROL OFFICER Sexual Orientation Straight 09/15/2022 2: [address] PATROL OFFICER documented as of this encounter Last Filed Vital Signs Vital Sign Reading Time Taken Comments Blood Pressure 136/76 11/20/2020 3:41 PM CDT Pulse 74 11/20/2020 3:41 PM CDT Temperature - - Respiratory Rate 18 11/20/2020 3:41 PM CDT Oxygen Saturation - - Inhaled Oxygen Concentration - - Weight - - Height - - Body Mass Index - - documented in this encounter Ordered Prescriptions Prescription Sig Dispense Quantity Refills Last Filled Start Date End Date HYDROcodone-acetam inophen ([place]) 5-325 mg per tabletIndications: Pain Take 1 tablet by mouth every 6 hours as needed for pain 120 tablet 11/20/2020 01/27/2021 documented in this encounter Progress Notes * Breanna Espana MD - 11/20/2020 3:15 PM CDT Subjective/Objective Patient ID: Lupis Juarez is a 75 y.o. female. Chief Complaint Hypertension htn copd chf b12 def wheel shiair bound HPI Review of Systems Constitutional: Negative. HENT: [...] hematuria and urgency. Nocturia negative Musculoskeletal: Negative. Wheel chair bound Skin: Negative for skin lesions Negative for puritis Negative for hives Neurological: Negative. Hematological: Negative. Psychiatric/Behavioral: Negative. Vitals: 11/20/20 1541 BP: 136/76 Pulse: 74 Resp: 18 Physical Exam Constitutional: Appearance: She is well-developed. HENT: Head: Normocephalic and atraumatic. Eyes: Pupils: Pupils are equal, round, and reactive to light. Cardiovascular: Rate and Rhythm: Normal rate and regular rhythm. Comments: Leg enlarged No edema Pulmonary: Effort: Pulmonary effort is normal. Breath [...] Chronic pain syndrome (Primary) Assessment & Plan: Gets by with 1/2 norco bid and works to stay here Hypertensive heart disease with chronic diastolic congestive heart failure (CMS/HCC) Assessment & Plan: bp stable and acceptable and chf not active Cont meds and check bnp on return Hypertension, Medicaltreament revolves around weight control, salt management, and meds when necessary. long as weight loss is necessary and you are able to drop weight we can cont to monitor the blood pressure and not add meds. Once the weight is not changing then it becomes nesessary to add meds to be able to reach the goal bp. Vitamin D deficiency Assessment & Plan: Vit d 59 great and cont as doing B12 deficiency Assessment & Plan: b12 1960 and to high skip for next two months and resstart January wthio 250 or 1/2 of a 500 mond thrufrid Morbid obesity (CMS/HCC) Assessment & Plan: Morbid obesity is a bmi of 40 or more. Targeted weight loss with portion controll(calorie restriction) ,increased basal activity Levels along with adding an exercise program to lead to gradual weightloss,.Any program of change from weight watchers. To nutra system along with others work. Pure hypercholesterolemia Assessment & Plan: ldl at 76 and working as is no chagds in meds or dietYour cholesterol in the form of ldl (bad) cholesterol,hdl(good) cholesterol and triglycerides are monitored. The triglycerides respond to reduction/controll of your simple carbs/sugars In such items as sugared soda/sweet tea along with fruit juice s(containing natural sugar) even if no added sugar is added. LDL cholesterol is reduced with reducing daily intake of fats and mir[place]e. saturated fats. The monosaturated fats like olive oil are not harmful except in the calories they contained. Whole milk cheese needs to be remembered along with whole milk products And limited. Iron deficiency anemia due to chronic blood loss Assessment & Plan: Blood cnts nl and no ochagds in meds Recurrent major depressive disorder, in partial remission (CMS/HCC) Assessment & Plan: Stable and wants to stay here of meds Other orders - HYDROcodone-acetaminophen ([place]) 5-325 mg per tablet; Take 1 tablet [...] Plan Note - Breanna Espana MD - 11/20/2020 4:09 PM CDTAssociated Problem(s): Iron deficiency anemia due to chronic blood loss Blood cnts nl and no ochagds in meds * Assessment & Plan Note - Breanna Espana MD - 11/20/2020 4:09 PM CDTAssociated Problem(s): Recurrent major depressive disorder, in partial remission (HCC) Stable and wants to stay here of meds * Assessment & Plan Note - Breanna Espana MD - 11/20/2020 4:08 PM CDTAssociated Problem(s): Pure hypercholesterolemia ldl at 76 and working as is no chagds in meds or dietYour cholesterol in the form of ldl (bad) cholesterol,hdl(good) cholesterol and triglycerides are monitored. The triglycerides respond to reduction/controll of your simple carbs/sugars In such items as sugared soda/sweet tea along with fruit juice s(containing natural sugar) even if no added sugar is added. LDL cholesterol is reduced with reducing daily intake of fats and mir[place]e. saturated fats. The monosaturated fats like olive oil are not harmful except in the calories they contained. Whole milk cheese needs to be remembered along with whole milk products And limited. * Assessment & Plan Note - Breanna Espana MD - 11/20/2020 4:07 PM CDTAssociated Problem(s): Class 3 severe obesity [...] Plan Note - Breanna Espana MD - 11/20/2020 4:07 PM CDTAssociated Problem(s): B12 deficiency b12 1960 and to high skip for next two months and resstart January wthio 250 or 1/2 of a 500 mond thrufrid * Assessment & Plan Note - Breanna Espana MD - 11/20/2020 4:06 PM CDTAssociated Problem(s): Vitamin D deficiency Vit d 59 great and cont as doing * Assessment & Plan Note - Breanna Espana MD - 11/20/2020 4:06 PM CDTAssociated Problem(s): Hypertensive heart disease with congestive heart failure (HCC) (Deleted) bp stable and acceptable and chf not active Cont meds and check bnp on return Hypertension, Medicaltreament revolves around weight control, salt management, and [...] Plan Note - Breanna Espana MD - 11/20/2020 4:05 PM CDTAssociated Problem(s): Chronic pain syndrome Gets by with 1/2 norco bid and works to stay here * Assessment & Plan Note - Tristan Watson MD - 11/20/2020 3:15 PM CDT Associated Problem(s): Takotsubo cardiomyopathy >>ASSESSMENT AND PLAN FOR HYPERTENSIVE HEART DISEASE WITH CONGESTIVE HEART FAILURE (HCC) WRITTEN ON 11/20/2020 4:06 PM BY BREANNA ESPANA MD bp stable and acceptable and chf not active Cont meds and check bnp on return Hypertension, Medicaltreament revolves around weight control, salt management, and meds when necessary. long as weight loss is necessary and you are able to drop weight we can cont to monitor the blood pressure and not add meds. Once the weight is not changing then it becomes nesessary to add meds to be able to reach the goal bp. documented in this encounter Plan of Treatment Not on file documented as of this encounter Visit Diagnoses Diagnosis Chronic pain syndrome- Primary Hypertensive heart disease with chronic diastolic congestive heart failure (CMS/HCC) (HCC) Vitamin D deficiency B12 deficiency Morbid obesity (HCC) Morbid obesity Pure hypercholesterolemia Iron deficiency anemia due to chronic blood loss Iron deficiency anemia secondary to blood loss (chronic) Recurrent major depressive disorder, in partial remission (HCC) documented in this encounter Discontinued Medications Medication Sig Discontinue Reason Start Date End Da te HYDROcodone-acetaminophe n ([place]) 5-325 mg per tabletIndications:Pain Take 1 tablet by mouth every 6 hours as needed for pain Reorder 12/17/2019 11/20/2020 documented as of this encounter Care Teams Director Of Digital Platforms Relationship Specialty Start Date End Date Breanna Espana MD PCP - General 10/29/16 03/14/22 documented as of this encounter
--- OUTSIDE RECORDS SUMMARY | 2024-08-13 05:23 | XMS_ITS | Encounter Summary ---
Author Organization [facility] Address [address] [place] [address] Care Team Providers Care Veterinary Anatomist Name Role Phone Jarvis Boston MD Primary Care Provi [facility] Encounter Details Date Type Department Care Team (Late st Contact Info) Description 08/22/2019 Telephone [facility] [address] [place] [address] Jarvis Boston MD [address] [place] [address] Social History Tobacco Use Types [...] on file Legal Sex Female 11:52 PM DONOR SERVICES COORDINATOR Gender Identity Female 09/15/2022 2:42 PM DONOR SERVICES COORDINATOR Sexual Orientation Straight 09/15/2022 2: 42 PM DONOR SERVICES COORDINATOR documented as of this encounter Miscellaneous Notes * Telephone Encounter - Christina Vargas MA - 08/22/2019 3:08 PM CST Pt spouse Francesco (on hipaa) notified of message R SERVICES COORDINATOR * Telephone Encounter - Cayetano Chawla PA - 08/22/2019 2:53 PM DONOR SERVICES COORDINATOR That will likely not help as her potassium is perfectly within range, and may only make the level go too high. She can try tonic water as that tends to help some. R SERVICES COORDINATOR * Telephone Encounter - Berenice Aguilar MA - 08/22/2019 2:33 PM DONOR SERVICES COORDINATOR mb R SERVICES COORDINATOR * Telephone Encounter - Jael Rdz - 08/22/2019 2:29 PM CST JW pt - Pt is experiencing bad leg cramps. Pt's Francesco wants to know if it would be ok for the pt to take an otc potassium supplement? If so, what strength could she take? They have found a550 mg tabs if this would be ok? Please advise. R SERVICES COORDINATOR documented in this encounter Plan of Treatment Not on file documented as of this encounter Visit Diagnoses Not on filedocumented in this encounter Care Teams Veterinary Anatomist Relationship Specialty Start Date End Date Jarvis Boston MD PCP - General 10/29/16 03/14/22 documented as of this encounter
--- OUTSIDE RECORDS SUMMARY | 2024-08-13 05:23 | XMS_ITS | Encounter Summary ---
Author Organization [facility] Address [address] [place] [address] Care Team Providers Care Sausage Stuffer Name Role Phone Jarvis Boston MD Primary Care Provi [facility] Encounter Details Date Type Department Care Team (Late st Contact Info) Description 07/02/2019 9:30 AM CAUSTIC PLANT WORKER Lab [facility] [address] [place] [address] [address] [place] [phone] Benign hypertension Social History Tobacco Use Types [...] on file Legal Sex Female 11:52 PM CAUSTIC PLANT WORKER Gender Identity Female 09/15/2022 2:42 PM CAUSTIC PLANT WORKER Sexual Orientation Straight 09/15/2022 2: 42 PM CAUSTIC PLANT WORKER documented as of this encounter Plan of Treatment Not on file documented as of this encounter Visit Diagnoses Diagnosis Benign hypertension Essential hypertension, benign documented in this encounter Care Teams Sausage Stuffer Relationship Specialty Start Date End Date Jarvis Boston MD PCP - General 10/29/16 03/14/22 documented as of this encounter
--- OUTSIDE RECORDS SUMMARY | 2024-08-13 05:24 | XMS_ITS | Encounter Summary ---
Author Organization [facility] Address [address] [place] [address] Care Team Providers Care Medical Radiation Dosimetrist Name Role Phone Jarvis Boston MD Primary Care [facility] Encounter Details Date Type Department Care Team (Late st Contact Info) Description 08/23/2018 Telephone [facility] [address] [place] [address] [address] [place] [address] Jarvis Boston MD [address] [place] [address] Social History Tobacco Use Types Packs/Day Years Used Date Smoking Tobacco: Never Smokeless Tobacco: Never Alcohol Use Standard Drinks/Week Comments Yes 0 (1 standard drink = 0.6 oz pur e alcohol) Comments Unknown Sex and Gender Information Value Date Recorded Sex Assigned at Not on file Legal Sex Female 11:52 PM FLAKER OPERATOR Gender Identity Female 09/15/2022 2:42 PM FLAKER OPERATOR Sexual Orientation Straight 09/15/2022 2: 42 PM FLAKER OPERATOR documented as of this encounter Miscellaneous Notes * Telephone Encounter - Chantel Okeefe - 09/04/2018 9:39 AM CST Noted. ER OPERATOR documented in this encounter Plan of Treatment Not on file documented as of this encounter Visit Diagnoses Not on filedocumented in this encounter Care Teams Medical Radiation Dosimetrist Relationship Specialty Start Date End Date Jarvis Boston MD PCP - General 10/29/16 03/14/22 documented as of this encounter
--- OUTSIDE RECORDS SUMMARY | 2024-08-13 05:24 | XMS_ITS | Encounter Summary ---
Author Organization [facility] Address [address] [place] [address] Care Team Providers Care Personal Lines Agent Name Role Phone Jarvis Boston MD Primary Care Provi evelyne Reason for Visit * Reason Comments Hypertension Encounter Details Date Type Department Care Team (Late st Contact Info) Description 2018 1:00 PM CDT Office Visit [facility] [address] [place] [address] [address] [place] [phone] Cayetano Chawla PA [address] [place] [address] [address] [place] [address] Benign hypertension (Primary Dx); Chronic obstructive pulmonary disease, unspecified COPD type (CMS/HCC); Chronic stasis dermatitis; Chronic pain syndrome Social History Tobacco Use Types Packs/Day Years Used Date Smoking Tobacco: Never Smokeless Tobacco: Never Alcohol Use Standard Drinks/Week Comments Yes 0 (1 standard drink = 0.6 oz pur e alcohol) Comments Unknown Sex and Gender Information Value Date Recorded Sex Assigned at Not on file Legal Sex Female 11:52 PM PSYCHOLOGY ASSOCIATE Gender Identity Female 09/15/2022 2:42 PM PSYCHOLOGY ASSOCIATE Sexual Orientation Straight 09/15/2022 2: 42 PM PSYCHOLOGY ASSOCIATE documented as of this encounter Last Filed Vital Signs Vital Sign Reading Time Taken Comments Blood Pressure 132/52 2018 1:12 PM CDT Pulse 64 2018 1:00 PM CDT Temperature - - Respiratory Rate 18 2018 1:00 PM CDT Oxygen Saturation - - Inhaled Oxygen Concentration - - Weight - - Height 158.8 cm (5' 2.5 ) 2018 1:00 PM CDT Body Mass Index - - documented in this encounter Ordered Prescriptions Prescription Sig Dispense Quantity Refills Last Filled Start Date End Date HYDROcodone-acetam inophen (NORCO) 5-325 mg per tablet Take 1 tablet by mouth every 6 hours as needed for pain 120 tablet 2018 05/31/2018 documented in this encounter Progress Notes * Cayetano Chawla PA - 2018 1:00 PM CDT Subjective/Objective Patient ID: Lupis Juarez is a 73 y.o. female. Chief Complaint Hypertension HPI Pt here for FU on HTN. Aldactone added last OV. It made her hurt all over so she stopped it after taking for 2 weeks and feels better. She stopped it a week or two ago.. No SOB, cough. Edema uncanged. Review of Systems Constitutional: Negative for chills and fever. Respiratory: Negative for cough and shortness of breath. Cardiovascular: Positive for leg swelling (unchanged). Negative for chest pain. Neurological: Negative for dizziness and light-headedness. Vitals: 04/25/18 1300 04/25/18 1312 BP: 132/52 Pulse: 64 Resp: 18 Height: 158.8 cm (5' 2.5 ) Unable to stand to weight Physical Exam Constitutional: She appears well-developed and well-nourished. No distress (obese pleasnat elderly). Neck: Normal range of motion. Neck supple. No thyromegaly present. Cardiovascular: Normal rate, regular rhythm and normal heart sounds. No murmur (pt has severe venous stasis of BL lower legs, w/ assoc'd skin changes and elephantitis of lower legs) heard. Pulmonary/Chest: Effort normal and breath sounds normal. No respiratory distress. She has no wheezes. She has no rales. Lymphadenopathy: She has no cervical adenopathy (no bruits). Lab on 04/18/2018 Component Date Value Ref Range Status ??? Sodium 04/18/2018 139 135 - 145 mmol/L Final ??? Potassium, pl 04/18/2018 3.7 3.5 - 5.1 mmol/L Final ??? Chloride 04/18/2018 103 100 - 114 mmol/L Final ??? CO2 04/18/2018 28 22 - 32 mmol/L Final ??? Anion Gap 04/18/2018 12 8 - 16 mmol/L Final ??? BUN 04/18/2018 25* 8 - 24 mg/dL Final ??? Creatinine 04/18/2018 0.74 0.60 - 1.30 mg/dL Final ??? Glucose 04/18/2018 114 70 - 199 mg/dL Final ??? Calcium 04/18/2018 9.6 8.4 - 10.5 mg/dL Final ??? GFR 04/18/2018 82 mL/min/1.73 m2 Final Assessment/Plan Diagnoses and all orders for this visit: Benign hypertension (Primary) Comments: BP borderline although iproved from before. Options reviewed and can consider clonidine . She optedto retry aldactone at lower dose and will start 1/2 pill MWF and will recheck labs early Jun w/ thereafter Chronic obstructive pulmonary disease, unspecified COPD type (CMS/HCC) Comments: No active issues and on [place] Chronic stasis dermatitis Unchanged. Chronic pain syndrome Refilled norco to fill on or after 04/30 Other orders - Flu Vaccine High Dose Tri PF 65y+ IM - Fluzone - HYDROcodone-acetaminophen (NORCO) 5-325 mg per tablet; Take 1 tablet [...] care. Cosigned by Jarvis Boston MD at 2018 6:02 PM CDT documented in this encounter Plan of Treatment Not on file documented as of this encounter Visit Diagnoses Diagnosis Benign hypertension- Primary Essential hypertension, benign Chronic obstructive pulmonary disease, unspecified COPD type (HCC) Chronic stasis dermatitis Chronic pain syndrome documented in this encounter Discontinued Medications Medication Sig Discontinue Reason Start Date End Da te HYDROcodone-acetaminophe n (NORCO) 5-325 mg per tablet Take 1 tablet by mouth every 6 hours as needed for pain Reorder 03/31/2018 2018 spironolactone (ALDACTONE) 25 mg tablet Take 1 tablet (25 mg total) by mouth daily. 03/14/2018 2018 documented as of this encounter Historical Medications * This list may reflect changes made after this encounter. spironolactone (ALDACTONE) 25 mg tablet Take 12.5 mg by mouth daily. 1/2 pill daily 06/28/2018 added in this encounter Orders Immunization/Injection Count Last Ordered Date First Ordered Date FLU VACCINE HD TRI PF 65Y+ IM 1 2018 documented in this encounter Care Teams Personal Lines Agent Relationship Specialty Start Date End Date Jarvis Boston MD PCP - General 10/29/16 03/14/22 documented as of this encounter
--- OUTSIDE RECORDS SUMMARY | 2024-08-13 05:24 | XMS_ITS | Encounter Summary ---
Author Organization [facility] Medical Group Address [address] [place] [address] Care Team Providers Care Health And Wellness Manager Name Role Phone Jarvis Boston MD Primary Care Provi [facility] Reason for Visit * Reason Comments Hypertension Encounter Details Date Type Department Care Team (Late st Contact Info) Description 10/24/2018 2:00 PM CDT Office Visit [facility] [address] [place] [address] [address] [place] [phone] Jarvis Boston MD [address] [place] [id number] Benign hypertension (Primary Dx); Recurrent major depressive disorder, in partial remission (CMS/HCC); Chronic pain syndrome Social History Tobacco Use Types Packs/Day Years Used Date Smoking Tobacco: Never Smokeless Tobacco: Never Alcohol Use Standard Drinks/Week Comments Yes 0 (1 standard drink = 0.6 oz pur e alcohol) Comments Unknown Sex and Gender Information Value Date Recorded Sex Assigned at Not on file Legal Sex Female 11:52 PM PAPER CONE MACHINE TENDER Gender Identity Female 09/15/2022 2:42 PM PAPER CONE MACHINE TENDER Sexual Orientation Straight 09/15/2022 2: 42 PM PAPER CONE MACHINE TENDER documented as of this encounter Last Filed Vital Signs Vital Sign Reading Time Taken Comments Blood Pressure 142/72 10/24/2018 2:16 PM CDT Pulse 70 10/24/2018 2:16 PM CDT Temperature - - Respiratory Rate 18 10/24/2018 2:16 PM CDT Oxygen Saturation - - Inhaled Oxygen Concentration - - Weight - - Height - - Body Mass Index - - documented in this encounter Ordered Prescriptions Prescription Sig Dispense Quantity Refills Last Filled Start Date End Date HYDROcodone-acetam inophen (NORCO) 5-325 mg per tablet Take 1 tablet by mouth every 6 hours as needed for pain 120 tablet 11/01/2018 9 chlorthalidone 25 mg tablet Take 1 tablet (25 mg total) by mouth daily 90 tablet 3 10/24/2018 9 chlorthalidone 25 mg tablet Take 1 tablet (25 mg total) by mouth daily 90 tablet 3 10/24/2018 9 FLUoxetine (PROzac) 40 mg capsule Take 1 capsule (40 mg total) by mouth daily 90 capsule 3 10/24/2018 9 irbesartan (AVAPRO) 300 mg tablet 1 po q day 90 tablet 3 10/24/2018 0 irbesartan (AVAPRO) 300 mg tablet 1 po q day 90 tablet 3 10/24/2018 9 FLUoxetine (PROzac) 40 mg capsule Take 1 capsule (40 mg total) by mouth daily 90 capsule 3 10/24/2018 9 documented in this encounter Progress Notes * Jarvis Boston MD - 10/24/2018 2:00 PM CDT Subjective/Objective Patient ID: Lupis Juarez is a 73 y.o. female. Chief Complaint Hypertension htn weeping and Dem=pressoin worse. Chronic p ain stable Review of Systems Constitutional: Negative. HENT: Negative [...] for hives Neurological: Negative. Hematological: Negative. Psychiatric/Behavioral: Positive for dysphoric mood and sleep disturbance. Negative for suicidal ideas. The patient is nervous/anxious. Vitals: 10/24/18 1416 BP: 142/72 Pulse: 70 Resp: 18 Physical Exam Constitutional: She is oriented to person, place, and time. She appears well- developed and well-nourished. HENT: Head: Normocephalic and atraumatic. Eyes: Pupils are equal, round, and reactive to light. EOM are normal. Neck: Normal range of motion. Neck supple. Cardiovascular: Normal rate and regular rhythm. Pulmonary/Chest: Effort normal and breath sounds normal. Abdominal: Soft. Bowel sounds are normal. Musculoskeletal: Normal range of motion. Neurological: She is alert and oriented to person, place, and time. Skin: Skin is warm and dry. Severe stasis dermiatits on lower legs Psychiatric: Her behavior is normal. Judgment and thought content normal. depresed and tearieyed Assessment/Plan Diagnoses and all orders for this visit: Benign hypertension (Primary) Assessment & Plan: Not controlledqa nd change the hctz 25 to chlorthalidone 25 Recurrent major depressive disorder, in partial remission (CMS/HCC) Assessment & Plan: Go to 40 mg to tret depresison Chronic pain syndrome Assessment & Plan: Stable pain meds and signed pain contracafdt Other orders - irbesartan (AVAPRO) 300 mg tablet; 1 po q day - FLUoxetine (PROzac) 40 mg capsule; Take 1 capsule (40 mg total) by mouth daily - chlorthalidone 25 mg tablet; Take 1 tablet (25 mg total) by mouth daily - HYDROcodone-acetaminophen (NORCO) 5-325 mg per tablet; [...] Plan Note - Jarvis Boston MD - 10/24/2018 2:20 PM CDTAssociated Problem(s): Chronic pain syndrome Stable pain meds and signed pain contracafdt * Assessment & Plan Note - Jarvis Boston MD - 10/24/2018 2:19 PM CDTAssociated Problem(s): Recurrent major depressive disorder, in partial remission (HCC) Go to 40 mg to tret depresison * Assessment & Plan Note - Jarvis Boston MD - 10/24/2018 2:18 PM CDTAssociated Problem(s): Benign hypertension Not controlledqa nd change the hctz 25 to chlorthalidone 25 documented in this encounter Plan of Treatment Not on file documented as of this encounter Visit Diagnoses Diagnosis Benign hypertension- Primary Essential hypertension, benign Recurrent major depressive disorder, in partial remission (HCC) Chronic pain syndrome documented in this encounter Discontinued Medications Medication Sig Discontinue Reason Start Date End Da te FLUoxetine (PROzac) 20 mg tablet Take 1 tablet (20 mg total) by mouth daily. 06/28/2018 10/24/2018 irbesartan (AVAPRO) 300 mg tablet TAKE 1 TABLET(300 MG) BY MOUTH DAILY Reorder 10/24/2018 10/24/2018 irbesartan (AVAPRO) 300 mg tablet 1 po q day Reorder 10/24/2018 10/24/2018 FLUoxetine (PROzac) 40 mg capsule Take 1 capsule (40 mg total) by mouth daily Reorder 10/24/2018 10/24/2018 hydroCHLOROthiazide (HYDRODIURIL) 25 mg tablet Take 1 tablet (25 mg) by mouth daily 07/27/2018 10/24/2018 chlorthalidone 25 mg tablet Take 1 tablet (25 mg total) by mouth daily Reorder 10/24/2018 10/24/2018 HYDROcodone-acetaminophe n (NORCO) 5-325 mg per tablet Take 1 tablet by mouth every 6 hours as needed for pain Reorder 10/02/2018 10/24/2018 documented as of this encounter Care Teams Health And Wellness Manager Relationship Specialty Start Date End Date Jarvis Boston MD PCP - General 10/29/16 03/14/22 documented as of this encounter
--- OUTSIDE RECORDS SUMMARY | 2024-08-13 05:24 | XMS_ITS | Encounter Summary ---
Author Organization [facility] Care Team Providers Care Stock Speculator Name Role Phone Jarvis Boston MD Primary Care Provi [facility] Encounter Details Date Type Department Care Team (Latest Contact Info) Description 04/14/2019 Travel Social History Tobacco Use Types Packs/Day Years Used Date Smoking Tobacco: Never Smokeless Tobacco: Never Alcohol Use Standard Drinks/Week Comments Not Currently 0 (1 standard drink = 0.6 oz pur e alcohol) no recently PHQ-2 Answer Date Recorded PHQ-2 Score 4 04/14/2019 Comments Unknown Sex and Gender Information Value Date Recorded Sex Assigned at Not on file Legal Sex Female 11:52 PM WASTE REDUCTION COORDINATOR Gender Identity Female 09/15/2022 2:42 PM WASTE REDUCTION COORDINATOR Sexual Orientation Straight 09/15/2022 2: 42 PM WASTE REDUCTION COORDINATOR documented as of this encounter Plan of Treatment Not on file documented as of this encounter Visit Diagnoses Not on filedocumented in this encounter Care Teams Stock Speculator Relationship Specialty Start Date End Date Jarvis Boston MD PCP - General 10/29/16 03/14/22 documented as of this encounter
--- OUTSIDE RECORDS SUMMARY | 2024-08-13 05:24 | XMS_ITS | Encounter Summary ---
Author Organization [facility] Medical Group Address [address] [place] [address] Care Team Providers Care Water Sponger Name Role Phone Jarvis Boston MD Primary Care Provi [facility] Encounter Details Date Type Department Care Team (Late st Contact Info) Description 03/14/2018 11:00 AM CDT Lab [facility] [address] [place] [address] [address] [place] [phone] Benign hypertension Social History Tobacco Use Types Packs/Day Years Used Date Smoking Tobacco: Never Smokeless Tobacco: Never Alcohol Use Standard Drinks/Week Comments Yes 0 (1 standard drink = 0.6 oz pur e alcohol) Comments Unknown Sex and Gender Information Value Date Recorded Sex Assigned at Not on file Legal Sex Female 11:52 PM HUMAN PROJECTILE Gender Identity Female 09/15/2022 2:42 PM HUMAN PROJECTILE Sexual Orientation Straight 09/15/2022 2: 42 PM HUMAN PROJECTILE documented as of this encounter Plan of Treatment Not on file documented as of this encounter Visit Diagnoses Diagnosis Benign hypertension Essential hypertension, benign documented in this encounter Care Teams Water Sponger Relationship Specialty Start Date End Date Jarvis Boston MD PCP - General 10/29/16 03/14/22 documented as of this encounter
--- OUTSIDE RECORDS SUMMARY | 2024-08-13 05:24 | XMS_ITS | Encounter Summary ---
Author Organization [facility] Medical Group Address [address] [place] [address] Care Team Providers Care Experimental Assembler Name Role Phone Jarvis Boston MD Primary Care Provi [facility] Encounter Details Date Type Department Care Team (Late st Contact Info) Description 06/12/2018 Orders Only [facility] [address] [place] [address] [address] [place] [phone] Jarvis Boston MD [address] [place] [address] Hypertension, unspecified type (Primary Dx); IGT (impaired glucose tolerance) Social History Tobacco Use Types Packs/Day Years Used Date Smoking Tobacco: Never Smokeless Tobacco: Never Alcohol Use Standard Drinks/Week Comments Yes 0 (1 standard drink = 0.6 oz pur e alcohol) Comments Unknown Sex and Gender Information Value Date Recorded Sex Assigned at Not on file Legal Sex Female 11:52 PM ONSHORE DIVER Gender Identity Female 09/15/2022 2:42 PM ONSHORE DIVER Sexual Orientation Straight 09/15/2022 2: 42 PM ONSHORE DIVER documented as of this encounter Plan of Treatment Not on file documented as of this encounter Results * Cholesterol, LDL, direct (06/14/2018 9:17 AM ONSHORE DIVER) LDL Cholesterol, Direct 71 <=129 mg/dL [facility] Comment: Interpretive Data [...] Data was last revised on 2018. Blood specimen (specimen) 06/14/2018 9:17 AM ONSHORE DIVER 06/14/2018 2:58 PM ONSHORE DIVER Narrative [facility] - 06/14/2018 3:21 PM ONSHORE DIVER Jarvis Boston MD LAB BLOOD ORDERABLE S Final Result [facility] [id number] Department [place] [address] * Hemoglobin A1c (06/14/2018 9:17 AM ONSHORE DIVER) Hgb A1C 5.5 4.0 - 6.0 % [facility] Comment: Interpretive Data Hemoglobin A1c ADA Interpretive Guidelines ??<7% ?? Glycemia controlled ??>8% ?? Hyperglycemia, additional action recommended Maureen Immunochemical Method Current interpretive data was last revised on 2016 [facility] [address] [place] [address] Estimated Average Glucose 111 mg/dL [facility] Comment:[facility] : [facility] [address] [place] [address] Blood specimen (specimen) 06/14/2018 9:17 AM ONSHORE DIVER 06/14/2018 9:15 PM ONSHORE DIVER Narrative [facility] - 06/14/2018 9:41 PM ONSHORE DIVER us Jarvis Boston MD LAB BLOOD ORDERABLE S Final [facility] [address] Department [place] [address] * (ABNORMAL) Comprehensive metabolic panel (06/14/2018 9:17 AM ONSHORE DIVER) Sodium 136 135 - 145 mmol/L [facility] Potassium, pl 3.7 3.5 - 5.1 mmol/L [facility] Chloride 101 100 - 114 mmol/L [facility] CO2 26 22 - 32 mmol/L [facility] Anion gap 13 8 - 16 mmol/L [facility] BUN 25(H) 8 - 24 mg/dL [facility] Creatinine 0.75 0.60 - 1.30 mg/dL [facility] Glucose 94 70 - 199 mg/dL [facility] Comment: [...] data was last revised 2017. Calcium 9.8 8.4 - 10.5 mg/dL [facility] Bilirubin, total 0.50 0.10 - 1.30 mg/dL [facility] Protein, pl 7.4 6.0 - 8.3 g/dL [facility] Albumin 3.7 3.2 - 4.8 g/dL [facility] Alk phos 121(H) 30 - 110 Units/L [facility] ALT 41 1 - 45 Units/L [facility] AST 30 7 - 40 Units/L [facility] Blood specimen (specimen) 06/14/2018 9:17 AM ONSHORE DIVER 06/14/2018 2:58 PM ONSHORE DIVER Narrative [facility] - 06/14/2018 3:21 PM ONSHORE DIVER us Jarvis Boston MD LAB BLOOD ORDERABLE S Final Result [facility] [address] [address] Department [place] [address] documented in this encounter Visit Diagnoses Diagnosis Hypertension, unspecified type- Primary IGT (impaired glucose tolerance) Impaired glucose tolerance test IGT (impaired glucose tolerance) Impaired glucose tolerance test Hypertension, unspecified type documented in this encounter Care Teams Experimental Assembler Relationship Specialty Start Date End Date Jarvis Boston MD PCP - General 10/29/16 03/14/22 documented as of this encounter
--- OUTSIDE RECORDS SUMMARY | 2024-08-13 05:24 | XMS_ITS | Encounter Summary ---
Author Organization [facility] Address [address] [place] [address] Care Team Providers Care Welcome Desk Agent Name Role Phone Jarvis Boston MD Primary Care Provi [facility] Encounter Details Date Type Department Care Team (Late st Contact Info) Description 02/28/2018 11:10 PM CDT Lab [address] [address] Impaired glucose tolerance test; Essential hypertension Social History Tobacco Use Types Packs/Day Years Used Date Smoking Tobacco: Never Smokeless Tobacco: Never Alcohol Use Standard Drinks/Week Comments Yes 0 (1 standard drink = 0.6 oz pur e alcohol) Comments Unknown Sex and Gender Information Value Date Recorded Sex Assigned at Not on file Legal Sex Female 11:52 PM MANAGER VALIDATION Gender Identity Female 09/15/2022 2:42 PM MANAGER VALIDATION Sexual Orientation Straight 09/15/2022 2: 42 PM MANAGER VALIDATION documented as of this encounter Plan of Treatment Not on file documented as of this encounter Procedures Procedure Name Priority Date/Time Associated Diagnosis Comments EGFR Routine 02/28/2018 9:23 AM CDT Essential hypertension LIPID PANEL WITH REFLEX TO DIRECT LDL Routine 02/28/2018 9:23 AM CDT Essential hypertension HEMOGLOBIN A1C Routine 02/28/2018 9:23 AM CDT Impaired glucose tolerance test COMPREHENSIVE METABOLIC PANEL Routine 02/28/2018 9:23 AM CDT Essential hypertension documented in this encounter Results * eGFR (02/28/2018 9:23 AM CDT) eGFR 82 mL/min/1.7 3 m2 [facility] Comment: Interpretive Data Reference Interval Normal ?>/= 90 mL/min/1.73m2 Mildly decreased* ? 60 - 89 mL/min/1.73m2 Mildly to moderately decreased ?45 - 59 mL/min/1.73m2 Moderately to severely decreased ??30 - 44 mL/min/1.73m2 Severely decreased ?15 - 29 mL/min/1.73m2 Kidney Failure ?< 15 ??mL/min/1.73m2 *Relative to young adult level If -Salvadorean multiply value by 1.16. Estimated glomerular filtration [...] was last reviewed 2016. Blood specimen (specimen) 02/28/2018 9:23 AM CDT 02/28/2018 11:31 PM CDT Narrative [facility] - 03/01/2018 12:15 AM CDT us Jarvis Boston MD LAB BLOOD ORDERABLE S Final Result [facility] [id number] Department of [place] [address] * (ABNORMAL) Lipid panel with reflex to direct LDL (02/28/2018 9:23 AM CDT) Cholesterol 157 100 - 200 mg/dL [facility] Comment: Interpretive Data Desirable: ?<200 mg/dL Borderline high: ??200-239 mg/dL High: ? >240 mg/dL Current interpretive data was last revised on 2016. Triglycerides 107 10 - 150 mg/dL [facility] Comment: Interpretive Data Desirable: ? < 150 ? mg/dL Borderline High: ? 150 - 199 mg/dL High: ?200 - 499 mg/dL Very High: ? > or = 499 ??mg/dL Current interpretive data was last revised on 2016. HDL 69(H) 40 - 59 mg/dL [facility] Comment: Interpretive Data Less than 40 mg/dL - Low; A major risk factor for heart disease. Greater than or equal to 60 mg/dL - High; ??Considered protective of heart disease. Current interpretive data was last revised on 2016. LDL, calculated 67 60 - 129 mg/dL [facility] Comment: Interpretive Data Optimal: ? < 100 mg/dL Near Optimal: ?100 - 129 mg/dL Borderline High: ?? 130 - 159 mg/dL High: ?> 160 mg/dL Current interpretive data was last revised on 2016. Chol/HDL ratio 2 mg/dL [facility] Blood specimen (specimen) 02/28/2018 9:23 AM CDT 02/28/2018 11:31 PM CDT Narrative [facility] - 03/01/2018 12:15 AM CDT us Jarvis Boston MD LAB BLOOD ORDERABLE S Final Result [facility] [address] Department [place] [address] * (ABNORMAL) Comprehensive metabolic panel (02/28/2018 9:23 AM CDT) Sodium 137 135 - 145 mmol/L [facility] Potassium, pl 4.0 3.5 - 5.1 mmol/L [facility] Chloride 99(L) 100 - 114 mmol/L [facility] CO2 27 22 - 32 mmol/L [facility] Anion gap 15 8 - 16 mmol/L [facility] BUN 19 8 - 24 mg/dL [facility] Creatinine 0.74 0.60 - 1.30 mg/dL [facility] Glucose 85 70 - 199 mg/dL [facility] Comment: [...] data was last revised 2017. Calcium 9.6 8.4 - 10.5 mg/dL [facility] Bilirubin, total 0.50 0.10 - 1.30 mg/dL [facility] Protein, pl 6.9 6.0 - 8.3 g/dL [facility] Albumin 3.3 3.2 - 4.8 g/dL [facility] Alk phos 115(H) 30 - 110 Units/L [facility] ALT 37 1 - 45 Units/L [facility] AST 25 7 - 40 Units/L [facility] Blood specimen (specimen) 02/28/2018 9:23 AM CDT 02/28/2018 11:31 PM CDT Narrative [facility] - 03/01/2018 12:15 AM CDT us Jarvis Boston MD LAB BLOOD ORDERABLE S Final Result [facility] [id number] Department [place] [address] * Hemoglobin A1c (02/28/2018 9:23 AM CDT) Hgb A1C 5.4 4.0 - 6.0 % [facility] Comment: Interpretive Data Hemoglobin A1c ADA Interpretive Guidelines ??<7% ?? Glycemia controlled ??>8% ?? Hyperglycemia, additional action recommended Maureen Immunochemical Method Current interpretive data was last revised on 2016 Testing performed by: [facility], [address] [place] [address] Estimated Average Glucose 108 mg/dL [facility] Comment:Testing performed by : [facility], [place] [address] Blood specimen (specimen) 02/28/2018 9:23 AM CDT 03/01/2018 8:05 AM CDT Narrative [facility] - 03/01/2018 12:28 PM CDT us Jarvis Boston MD LAB BLOOD ORDERABLE S Final Result Performing Organization Address City/State/[facility] Co de Phone Number [facility] [address] Department [place] [address] documented in this encounter Visit Diagnoses Diagnosis Impaired glucose tolerance test Essential hypertension Unspecified essential hypertension documented in this encounter Care Teams Welcome Desk Agent Relationship Specialty Start Date End Date Jarvis Boston MD PCP - General 10/29/16 03/14/22 documented as of this encounter
--- OUTSIDE RECORDS SUMMARY | 2024-08-13 05:24 | XMS_ITS | Encounter Summary ---
Author Organization [facility] Medical [facility] Address [address] [place] [address] Care Team Providers Care Auto Adjudication Specialist Name Role Phone Jarvis Bostno MD Primary Care Provi [facility] Encounter Details Date Type Department Care Team (Late st Contact Info) Description 04/18/2018 10:30 AM CDT Lab [facility] [address] [place] [address] [address] [place] [phone] Benign hypertension Social History Tobacco Use Types Packs/Day Years Used Date Smoking Tobacco: Never Smokeless Tobacco: Never Alcohol Use Standard Drinks/Week Comments Yes 0 (1 standard drink = 0.6 oz pur e alcohol) Comments Unknown Sex and Gender Information Value Date Recorded Sex Assigned at Not on file Legal Sex Female 11:52 PM CAREER TECHNOLOGY TEACHER Gender Identity Female 09/15/2022 2:42 PM CAREER TECHNOLOGY TEACHER Sexual Orientation Straight 09/15/2022 2: 42 PM CAREER TECHNOLOGY TEACHER documented as of this encounter Plan of Treatment Not on file documented as of this encounter Visit Diagnoses Diagnosis Benign hypertension Essential hypertension, benign documented in this encounter Care Teams Auto Adjudication Specialist Relationship Specialty Start Date End Date Jarvis Boston MD PCP - General 10/29/16 03/14/22 documented as of this encounter
--- OUTSIDE RECORDS SUMMARY | 2024-08-13 05:24 | XMS_ITS | Encounter Summary ---
Author Organization [facility] Medical Group Address [address] [place] [address] Care Team Providers Care Salesperson Toy Trains And Accessories Name Role Phone Jarvis Boston MD Primary Care Provi evelyne Reason for Visit * Reason Comments Hypertension Encounter Details Date Type Department Care Team (Late st Contact Info) Description 03/06/2019 2:15 PM CDT Office Visit [facility] [address] [place] [address] [address] [place] [id number] Jarvis Boston MD [address] [place] [id number] Benign hypertension (Primary Dx); Recurrent major depressive disorder, in partial remission (CMS/HCC); Morbid obesity (CMS/HCC); Chronic pain syndrome Social History Tobacco Use Types Packs/Day Years Used Date Smoking Tobacco: Never Smokeless Tobacco: Never Alcohol Use Standard Drinks/Week Comments Yes 0 (1 standard drink = 0.6 oz pur e alcohol) PHQ-2 Answer Date Recorded PHQ-2 Score 4 04/14/2019 Comments Unknown Sex and Gender Information Value Date Recorded Sex Assigned at Not on file Legal Sex Female 11:52 PM CASTER INVESTMENT CASTING Gender Identity Female 09/15/2022 2:42 PM CASTER INVESTMENT CASTING Sexual Orientation Straight 09/15/2022 2: 42 PM CASTER INVESTMENT CASTING documented as of this encounter Last Filed Vital Signs Vital Sign Reading Time Taken Comments Blood Pressure 128/70 03/06/2019 2:21 PM CDT Pulse 62 03/06/2019 2:21 PM CDT Temperature - - Respiratory Rate 18 03/06/2019 2:21 PM CDT Oxygen Saturation - - Inhaled Oxygen Concentration - - Weight - - Height - - Body Mass Index - - documented in this encounter Ordered Prescriptions Prescription Sig Dispense Quantity Refills Last Filled Start Date End Date albuterol HFA (PROAIR HFA) 90 mcg/actuation inhaler Inhale 2 puffs every 4 (four) hours as needed for shortness of breath As needed for wheezing 1 Inhaler 11 03/06/2019 1 buPROPion SR (ZYBAN) 150 mg 12 hr tablet Take 1 tablet (150 mg total) by mouth 2 (two) times a day 180 tablet 3 03/06/2019 9 cloNIDine (CATAPRES) 0.1 mg tablet Take 1 tablet (0.1 mg total) by mouth 2 (two) times a day 180 tablet 3 03/06/2019 0 chlorthalidone 25 mg tablet Take 1 tablet (25 mg total) by mouth daily 90 tablet 3 03/06/2019 9 dilTIAZem XR (DILT-XR) 240 mg 24 hr capsule Take 1 capsule (240 mg total) by mouth daily 90 capsule 3 03/06/2019 9 FLUoxetine (PROzac) 40 mg capsule Take 1 capsule (40 mg total) by mouth daily 90 capsule 3 03/06/2019 0 fluticasone propionate (FLONASE) 50 mcg/actuation nasal spray Administer 2 sprays into each nostril daily 16 mL 11 03/06/2019 0 fluticasone propion-salmeterol (ADVAIR DISKUS) 250-50 mcg/dose diskus inhaler Inhale 1 puff 2 (two) times a day Rinse mouth with water after use to reduce aftertaste and incidence of candidiasis. Do not swallow. 3 each 3 03/06/2019 1 chlorthalidone 25 mg tablet Take 1 tablet (25 mg total) by mouth daily 90 tablet 3 03/06/2019 9 HYDROcodone-acetam inophen (NORCO) 5-325 mg per tablet Take 1 tablet by mouth every 6 hours as needed for pain 120 tablet 03/09/2019 9 buPROPion SR (ZYBAN) 150 mg 12 hr tablet Take 1 tablet (150 mg total) by mouth 2 (two) times a day 180 tablet 3 03/06/2019 9 buPROPion SR (ZYBAN) 150 mg 12 hr tablet Take 1 tablet (150 mg total) by mouth 2 (two) times a day 180 tablet 3 03/06/2019 9 documented in this encounter Progress Notes * Jarvis Boston MD - 03/06/2019 2:15 PM CDT Subjective/Objective Patient ID: Lupis Juarez is a 73 y.o. female. Chief Complaint Hypertension On new meds and no issue and freels d e presoin better. Review of Systems Constitutional: Negative. HENT: Negative [...] Negative. Hematological: Negative. Psychiatric/Behavioral: Positive for dysphoric mood. Not as bothersome Vitals: 03/06/19 1421 BP: 128/70 Pulse: 62 Resp: 18 Physical Exam Constitutional: She is [...] time. Skin: Skin is warm and dry. Psychiatric: She has a normal mood and affect. Her behavior is normal. Judgment and thought contentnormal. Assessment/Plan Diagnoses and all orders for this visit: Benign hypertension (Primary) Assessment & Plan: bp better and no changs in meds [...] to reach the goal bp. Orders: - Basic metabolic panel; Future Recurrent major depressive disorder, in partial remission (CMS/HCC) Assessment & Plan: Better but not there cont prozac 40 and then add well butrin 150 Daily and after 2wks then trial twice a day Morbid obesity ([facility]) Assessment & Plan: Morbid obesity is a bmi of 40 or more. Targeted weight loss with portion controll(calorie restriction) ,increased basal activity Levels along with adding an exercise program to lead to gradual weightloss,.Any program of change from weight watchers. To [employer] system along with others work. Chronic pain syndrome Assessment & Plan: Renewed med for stable pain Other orders - buPROPion SR (ZYBAN) 150 mg 12 hr tablet; Take 1 tablet (150 mg total) by mouth 2 (two) times a day - HYDROcodone-acetaminophen (NORCO) 5-325 mg per tablet; Take 1 tablet by mouth every 6 hours as needed for pain - chlorthalidone 25 mg tablet; Take 1 tablet (25 mg total) by mouth daily Side effects, risks, interactions reviewed with patient. [...] Plan Note - Jarvis Boston MD - 03/06/2019 2:30 PM CDTAssociated Problem(s): Chronic pain syndrome Renewed med for stable pain * Assessment & Plan Note - Jarvis Boston MD - 03/06/2019 2:30 PM CDTAssociated Problem(s): Class 3 severe obesity [...] Plan Note - Jarvis Boston MD - 03/06/2019 2:26 PM CDTAssociated Problem(s): Recurrent major depressive disorder, in partial remission (HCC) Better but not there cont prozac 40 and then add well butrin 150 Daily and after 2wks then trial twice a day * Assessment & Plan Note - Jarvis Boston MD - 03/06/2019 2:25 PM CDTAssociated Problem(s): Benign hypertension bp better and no changs in meds [...] the goal bp. * Addendum Note - Odette Holman MA - 03/06/2019 2:15 PM CDTAddended by: ODETTE HOLMAN on: 03/06/2019 02:39 PM Modules accepted: Orders * Addendum Note - Katerine Tran - 03/06/2019 2:15 PM CDTAddended by: KATERINE TRAN on: 07/02/2019 04:11 PM Modules accepted: Orders ER INVESTMENT CASTING documented in this encounter Plan of Treatment Not on file documented as of this encounter Results * (ABNORMAL) Basic metabolic panel (07/02/2019 9:34 AM CASTER INVESTMENT CASTING) Sodium 136 135 - 145 mmol/L [facility] Potassium, pl 4.0 3.3 - 4.9 mmol/L [facility] Chloride 99 97 - 110 mmol/L [facility] CO2 26 22 - 32 mmol/L [facility] Anion gap 11 2 - 15 mmol/L [facility] BUN 17 8 - 25 mg/dL [facility] Creatinine 0.51(L) 0.60 - 1.10 mg/dL [facility] Glucose 101 70 - 199 mg/dL [facility] Comment: Interpretive [...] Calcium 9.8 8.5 - 10.3 mg/dL [facility] Blood specimen (specimen) 07/02/2019 9:34 AM CASTER INVESTMENT CASTING 07/02/2019 6:32 PM CASTER INVESTMENT CASTING us Jarvis Boston MD LAB BLOOD ORDERABLE S Final Result [facility] [id number] Department [place] [address] documented in this encounter Visit Diagnoses Diagnosis Benign hypertension- Primary Essential hypertension, benign Recurrent major depressive disorder, in partial remission (HCC) Morbid obesity (HCC) Morbid obesity Chronic pain syndrome documented in this encounter Discontinued Medications Medication Sig Discontinue Reason Start Date End Da te buPROPion SR (ZYBAN) 150 mg 12 hr tablet Take 1 tablet (150 mg total) by mouth 2 (two) times a day Reorder 03/06/2019 03/06/2019 HYDROcodone-acetaminop hen (NORCO) 5-325 mg per tablet Take 1 tablet by mouth every 6 hours as needed for pain Reorder 02/08/2019 03/06/2019 chlorthalidone 25 mg tablet Take 1 tablet (25 mg total) by mouth daily Reorder 10/24/2018 03/06/2019 fluticasone-salmeterol (ADVAIR DISKUS) 250-50 mcg/dose diskus inhaler Inhale 1 puff 2 (two) times a day. Rinse mouth with water after use to reduce aftertaste and incidence of candidiasis. Do not swallow. Reorder 03/14/2018 03/06/2019 fluticasone (FLONASE) 50 mcg/actuation nasal spray Administer 2 sprays into each nostril daily. Reorder 03/14/2018 03/06/2019 FLUoxetine (PROzac) 40 mg capsule Take 1 capsule (40 mg total) by mouth daily Reorder 10/24/2018 03/06/2019 DILT-XR 240 mg 24 hr capsule TAKE 1 CAPSULE(240 MG) BY MOUTH DAILY Reorder 02/26/2019 03/06/2019 chlorthalidone 25 mg tablet Take 1 tablet (25 mg total) by mouth daily Reorder 03/06/2019 03/06/2019 cloNIDine (CATAPRES) 0.1 mg tablet Take 1 tablet (0.1 mg total) by mouth 2 (two) times a day. Reorder 06/28/2018 03/06/2019 buPROPion SR (ZYBAN) 150 mg 12 hr tablet Take 1 tablet (150 mg total) by mouth 2 (two) times a day Reorder 03/06/2019 03/06/2019 albuterol HFA (PROAIR HFA) 90 mcg/actuation inhaler Inhale 2 puffs every 4 (four) hours as needed. As needed for wheezing Reorder 03/14/2018 03/06/2019 documented as of this encounter Care Teams Salesperson Toy Trains And Accessories Relationship Specialty Start Date End Date Jarvis Boston MD PCP - General 10/29/16 03/14/22 documented as of this encounter
--- OUTSIDE RECORDS SUMMARY | 2024-08-13 05:24 | XMS_ITS | Encounter Summary ---
Author Organization [facility] Healthcare Address [address] [place] [address] Care Team Providers Care Electrical Mechanical Technician Name Role Phone Jarvis Boston MD Primary Care Provi evelyne Encounter Details Date Type Department Care Team (Late st Contact Info) Description 04/18/2018 4:15 PM CDT Lab [address] [address] Hypertension, unspecified type Social History Tobacco Use Types Packs/Day Years Used Date Smoking Tobacco: Never Smokeless Tobacco: Never Alcohol Use Standard Drinks/Week Comments Yes 0 (1 standard drink = 0.6 oz pur e alcohol) Comments Unknown Sex and Gender Information Value Date Recorded Sex Assigned at Not on file Legal Sex Female 11:52 PM BUSHING AND BROACH OPERATOR Gender Identity Female 09/15/2022 2:42 PM BUSHING AND BROACH OPERATOR Sexual Orientation Straight 09/15/2022 2: 42 PM BUSHING AND BROACH OPERATOR documented as of this encounter Plan of Treatment Not on file documented as of this encounter Procedures Procedure Name Priority Date/Time Associated Diagnosis Comments EGFR Routine 04/18/2018 10:30 AM CDT Hypertension, unspecified type BASIC METABOLIC PANEL Routine 04/18/2018 10:30 AM CDT Hypertension, unspecified type documented in this encounter Results * eGFR (04/18/2018 10:30 AM CDT) eGFR 82 mL/min/1.7 3 m2 [facility] Comment: Interpretive Data Reference Interval Normal ?>/= 90 mL/min/1.73m2 Mildly decreased* ? 60 - 89 mL/min/1.73m2 Mildly to moderately decreased ?45 - 59 mL/min/1.73m2 Moderately to severely decreased ??30 - 44 mL/min/1.73m2 Severely decreased ?15 - 29 mL/min/1.73m2 Kidney Failure ?< 15 ??mL/min/1.73m2 *Relative to young adult level If -Nepalese multiply value by 1.16. Estimated glomerular filtration [...] was last reviewed 2016. Blood specimen (specimen) 04/18/2018 10:30 AM CDT 04/18/2018 4:25 PM CDT Narrative [facility] - 04/18/2018 5:09 PM CDT Jarvis Boston MD LAB BLOOD ORDERABLE S Final Result [facility] [address] Department [place] [address] * (ABNORMAL) Basic metabolic panel (04/18/2018 10:30 AM CDT) Sodium 139 135 - 145 mmol/L [facility] Potassium, pl 3.7 3.5 - 5.1 mmol/L [facility] Chloride 103 100 - 114 mmol/L [facility] CO2 28 22 - 32 mmol/L [facility] Anion gap 12 8 - 16 mmol/L [facility] BUN 25(H) 8 - 24 mg/dL [facility] Creatinine 0.74 0.60 - 1.30 mg/dL [facility] Glucose 114 70 - 199 mg/dL [facility] Comment: Interpretive Data Fasting glucose >/= [...] 2017. Calcium 9.6 8.4 - 10.5 mg/dL [facility] Blood specimen (specimen) 04/18/2018 10:30 AM CDT 04/18/2018 4:25 PM CDT Narrative [facility] - 04/18/2018 5:09 PM CDT Jarvis Boston MD LAB BLOOD ORDERABLE S Final Result [facility] [address] Department [place] [address] documented in this encounter Visit Diagnoses Diagnosis Hypertension, unspecified type documented in this encounter Care Teams Electrical Mechanical Technician Relationship Specialty Start Date End Date Jarvis Boston MD PCP - General 10/29/16 03/14/22 documented as of this encounter
--- OUTSIDE RECORDS SUMMARY | 2024-08-13 05:24 | XMS_ITS | Encounter Summary ---
Author Organization [facility] Medical Group Address [address] [place] [address] Care Team Providers Care Mat Sewer Name Role Phone Jarvis Boston MD Primary Care Provi [facility] Encounter Details Date Type Department Care Team (Late st Contact Info) Description 08/23/2018 Telephone [facility] [address] [place] [address] [address] [place] [address] [place] [address] Social History Tobacco Use Types Packs/Day Years Used Date Smoking Tobacco: Never Smokeless Tobacco: Never Alcohol Use Standard Drinks/Week Comments Yes 0 (1 standard drink = 0.6 oz pur e alcohol) Comments Unknown Sex and Gender Information Value Date Recorded Sex Assigned at Not on file Legal Sex Female 11:52 PM BENEFITS REPRESENTATIVE Gender Identity Female 09/15/2022 2:42 PM BENEFITS REPRESENTATIVE Sexual Orientation Straight 09/15/2022 2: 42 PM BENEFITS REPRESENTATIVE documented as of this encounter Miscellaneous Notes * Telephone Encounter - La Matson - 08/23/2018 11:27 AM CST Date extended FITS REPRESENTATIVE * Telephone Encounter - Berenice Aguilar MA - 08/23/2018 11:23 AM BENEFITS REPRESENTATIVE La FITS REPRESENTATIVE * Telephone Encounter - Chantel Okeefe. - 08/23/2018 11:22 AM CST Pt states that she does intend on doing this test. FITS REPRESENTATIVE * Telephone Encounter - La Matson - 08/23/2018 10:21 AM CST LMOM to cb. Called pt to see if she is going to complete her cologaurd test. FITS REPRESENTATIVE documented in this encounter Plan of Treatment Not on file documented as of this encounter Visit Diagnoses Not on filedocumented in this encounter Care Teams Mat Sewer Relationship Specialty Start Date End Date Jarvis Boston MD PCP - General 10/29/16 03/14/22 documented as of this encounter
--- OUTSIDE RECORDS SUMMARY | 2024-08-13 05:24 | XMS_ITS | Encounter Summary ---
Author Organization [facility] Care Team Providers Care Supervisor Aircraft Cleaning Name Role Phone Jarvis Boston MD Primary Care Provi [facility] Encounter Details Date Type Department Care Team (Latest Contact Info) Description 11/29/2018 Travel Social History Tobacco Use Types Packs/Day Years Used Date Smoking Tobacco: Never Smokeless Tobacco: Never Alcohol Use Standard Drinks/Week Comments Yes 0 (1 standard drink = 0.6 oz pur e alcohol) Comments Unknown Sex and Gender Information Value Date Recorded Sex Assigned at Not on file Legal Sex Female 11:52 PM MURAL PAINTER Gender Identity Female 09/15/2022 2:42 PM MURAL PAINTER Sexual Orientation Straight 09/15/2022 2: 42 PM MURAL PAINTER documented as of this encounter Plan of Treatment Not on file documented as of this encounter Visit Diagnoses Not on filedocumented in this encounter Care Teams Supervisor Aircraft Cleaning Relationship Specialty Start Date End Date Jarvis Boston MD PCP - General 10/29/16 03/14/22 documented as of this encounter
--- OUTSIDE RECORDS SUMMARY | 2024-08-13 05:24 | XMS_ITS | Encounter Summary ---
Author Organization [facility] Medical Group Address [address] [place] [address] Care Team Providers Care Manager Trading Name Role Phone Jarvis Boston MD Primary Care Provi [facility] Encounter Details Date Type Department Care Team (Late st Contact Info) Description 02/28/2018 9:15 AM CDT Lab [facility] [address] [place] [address] [address] [place] [phone] Benign hypertension Social History Tobacco Use Types Packs/Day Years Used Date Smoking Tobacco: Never Smokeless Tobacco: Never Alcohol Use Standard Drinks/Week Comments Yes 0 (1 standard drink = 0.6 oz pur e alcohol) Comments Unknown Sex and Gender Information Value Date Recorded Sex Assigned at Not on file Legal Sex Female 11:52 PM CHARGE COORDINATOR Gender Identity Female 09/15/2022 2:42 PM CHARGE COORDINATOR Sexual Orientation Straight 09/15/2022 2: 42 PM CHARGE COORDINATOR documented as of this encounter Plan of Treatment Not on file documented as of this encounter Visit Diagnoses Diagnosis Benign hypertension Essential hypertension, benign documented in this encounter Care Teams Manager Trading Relationship Specialty Start Date End Date Jarvis Boston MD PCP - General 10/29/16 03/14/22 documented as of this encounter
--- OUTSIDE RECORDS SUMMARY | 2024-08-13 05:24 | XMS_ITS | Encounter Summary ---
Author Organization [facility] Facility Care Team Providers Care Small Order Cutter Name Role Phone Jarvis Boston MD Primary Care Provi [facility] Encounter Details Date Type Department Care Team (Latest Contact Info) Description 10/24/2018 Travel Social History Tobacco Use Types Packs/Day Years Used Date Smoking Tobacco: Never Smokeless Tobacco: Never Alcohol Use Standard Drinks/Week Comments Yes 0 (1 standard drink = 0.6 oz pur e alcohol) Comments Unknown Sex and Gender Information Value Date Recorded Sex Assigned at Not on file Legal Sex Female 11:52 PM TUBE MAN Gender Identity Female 09/15/2022 2:42 PM TUBE MAN Sexual Orientation Straight 09/15/2022 2: 42 PM TUBE MAN documented as of this encounter Plan of Treatment Not on file documented as of this encounter Visit Diagnoses Not on filedocumented in this encounter Care Teams Small Order Cutter Relationship Specialty Start Date End Date Jarvis Boston MD PCP - General 10/29/16 03/14/22 documented as of this encounter
--- OUTSIDE RECORDS SUMMARY | 2024-08-13 05:24 | XMS_ITS | Encounter Summary ---
Author Organization [facility] Medical Group Address [address] [place] [address] Care Team Providers Care Paint Spray Inspector Name Role Phone Jarvis Boston MD Primary Care Provi [facility] Encounter Details Date Type Department Care Team (Late st Contact Info) Description 06/14/2018 8:30 AM IRONER MACHINE Lab [facility] [address] [place] [address] [address] [place] [address] Benign hypertension Social History Tobacco Use Types Packs/Day Years Used Date Smoking Tobacco: Never Smokeless Tobacco: Never Alcohol Use Standard Drinks/Week Comments Yes 0 (1 standard drink = 0.6 oz pur e alcohol) Comments Unknown Sex and Gender Information Value Date Recorded Sex Assigned at Not on file Legal Sex Female 11:52 PM IRONER MACHINE Gender Identity Female 09/15/2022 2:42 PM IRONER MACHINE Sexual Orientation Straight 09/15/2022 2: 42 PM IRONER MACHINE documented as of this encounter Plan of Treatment Not on file documented as of this encounter Visit Diagnoses Diagnosis Benign hypertension Essential hypertension, benign documented in this encounter Care Teams Paint Spray Inspector Relationship Specialty Start Date End Date Jarvis Boston MD PCP - General 10/29/16 03/14/22 documented as of this encounter
--- OUTSIDE RECORDS SUMMARY | 2024-08-13 05:24 | XMS_ITS | Encounter Summary ---
Author Organization [facility] Medical Group Address [address] [place] [address] Care Team Providers Care Roofer Assistant Name Role Phone Jarvis Boston MD Primary Care Provi [facility] Encounter Details Date Type Department Care Team (Late st Contact Info) Description 04/12/2018 Orders Only [facility] [address] [place] [address] [address] [place] [address] Jarvis Boston MD [address] [place] [address] Hypertension, unspecified type (Primary Dx) Social History Tobacco Use Types Packs/Day Years Used Date Smoking Tobacco: Never Smokeless Tobacco: Never Alcohol Use Standard Drinks/Week Comments Yes 0 (1 standard drink = 0.6 oz pur e alcohol) Comments Unknown Sex and Gender Information Value Date Recorded Sex Assigned at Not on file Legal Sex Female 11:52 PM ROAST MASTER Gender Identity Female 09/15/2022 2:42 PM ROAST MASTER Sexual Orientation Straight 09/15/2022 2: 42 PM ROAST MASTER documented as of this encounter Plan of Treatment Not on file documented as of this encounter Results * (ABNORMAL) Basic metabolic panel (04/18/2018 10:30 AM CDT) Sodium 139 135 - 145 mmol/L [facility] Potassium, pl 3.7 3.5 - 5.1 mmol/L [facility] Chloride 103 100 - 114 mmol/L [facility] CO2 28 22 - 32 mmol/L [facility] Anion gap 12 8 - 16 mmol/L [facility] BUN 25(H) 8 - 24 mg/dL [facility] Creatinine 0.74 0.60 - 1.30 mg/dL [facility] Glucose 114 70 - 199 mg/dL [facility] Comment: Interpretive Data Fasting glucose >/= 126 [...] 2017. Calcium 9.6 8.4 - 10.5 mg/dL [facility] Blood specimen (specimen) 04/18/2018 10:30 AM CDT 04/18/2018 4:25 PM CDT Narrative [facility] - 04/18/2018 5:09 PM CDT Jarvis Boston MD LAB BLOOD ORDERABLE S Final Result [facility] [address] Department [place] [address] documented in this encounter Visit Diagnoses Diagnosis Hypertension, unspecified type- Primary Hypertension, unspecified type documented in this encounter Care Teams Roofer Assistant Relationship Specialty Start Date End Date Jarvis Boston MD PCP - General 10/29/16 03/14/22 documented as of this encounter
--- OUTSIDE RECORDS SUMMARY | 2024-08-13 05:24 | XMS_ITS | Encounter Summary ---
Author Organization [facility] Medical Group Address [address] [place] [address] Care Team Providers Care Computer Networking Instructor Adjunct Name Role Phone Jarvis Boston MD Primary Care [facility] Encounter Details Date Type Department Care Team (Late st Contact Info) Description 01/06/2018 Telephone [facility] [address] [place] [address] Radha Johnson Social History Tobacco Use Types Packs/Day Years Used Date Smoking Tobacco: Never Smokeless Tobacco: Never Alcohol Use Standard Drinks/Week Comments Yes 0 (1 standard drink = 0.6 oz pur e alcohol) Comments Unknown Sex and Gender Information Value Date Recorded Sex Assigned at Not on file Legal Sex Female 11:52 PM TAX PROCESSOR Gender Identity Female 09/15/2022 2:42 PM TAX PROCESSOR Sexual Orientation Straight 09/15/2022 2: 42 PM TAX PROCESSOR documented as of this encounter Miscellaneous Notes * Telephone Encounter - Laith Sanabria - 01/06/2018 9:31 AM CDT Pt aware * Telephone Encounter - Radha Johnson MA - 01/06/2018 8:29 AM CDT lmtcb * Telephone Encounter - Radha Johnson MA - 01/06/2018 8:29 AM CDT ----- Message from NALLELY Alex sent at 01/06/2018 8:10 AM CDT ----- Please inform patient that her lab from yesterday is normal documented in this encounter Plan of Treatment Not on file documented as of this encounter Visit Diagnoses Not on filedocumented in this encounter Care Teams Computer Networking Instructor Adjunct Relationship Specialty Start Date End Date Jarvis Boston MD PCP - General 10/29/16 03/14/22 documented as of this encounter
--- OUTSIDE RECORDS SUMMARY | 2024-08-13 05:24 | XMS_ITS | Encounter Summary ---
Author Organization [facility] Healthcare Address [address] [place] [address] Care Team Providers Care Submersible Pilot Name Role Phone Jarvis Boston MD Primary Care Provi evelyne Encounter Details Date Type Department Care Team (Late st Contact Info) Description 03/14/2018 4:00 PM CDT [address] [address] Vitamin D deficiency; Benign hypertension Social History Tobacco Use Types Packs/Day Years Used Date Smoking Tobacco: Never Smokeless Tobacco: Never Alcohol Use Standard Drinks/Week Comments Yes 0 (1 standard drink = 0.6 oz pur e alcohol) Comments Unknown Sex and Gender Information Value Date Recorded Sex Assigned at Not on file Legal Sex Female 11:52 PM PROSTHETIC AIDES TEACHER Gender Identity Female 09/15/2022 2:42 PM PROSTHETIC AIDES TEACHER Sexual Orientation Straight 09/15/2022 2: 42 PM PROSTHETIC AIDES TEACHER documented as of this encounter Plan of Treatment Not on file documented as of this encounter Procedures Procedure Name Priority Date/Time Associated Diagnosis Comments EGFR Routine 03/14/2018 10:56 AM CDT Benign hypertension VITAMIN D 25 HYDROXY Routine 03/14/2018 10:56 AM CDT Vitamin D deficiency BASIC METABOLIC PANEL Routine 03/14/2018 10:56 AM CDT Benign hypertension documented in this encounter Results * eGFR (03/14/2018 10:56 AM CDT) eGFR 88 mL/min/1.7 3 m2 [facility] Comment: Interpretive Data Reference Interval Normal ?>/= 90 mL/min/1.73m2 Mildly decreased* ? 60 - 89 mL/min/1.73m2 Mildly to moderately decreased ?45 - 59 mL/min/1.73m2 Moderately to severely decreased ??30 - 44 mL/min/1.73m2 Severely decreased ?15 - 29 mL/min/1.73m2 Kidney Failure ?< 15 ??mL/min/1.73m2 *Relative to young adult level If -Gibraltarian multiply value by 1.16. Estimated glomerular filtration [...] was last reviewed 2016. Blood specimen (specimen) 03/14/2018 10:56 AM CDT 03/14/2018 4:09 PM CDT Narrative [facility] - 03/14/2018 4:42 PM CDT us Jarvis Boston MD LAB BLOOD ORDERABLE S Final Result [facility] [address] Department [place] [address] * (ABNORMAL) Basic metabolic panel (03/14/2018 10:56 AM CDT) Pathologist [facility] Sodium 138 135 - 145 mmol/L [facility] Potassium, pl 3.6 3.5 - 5.1 mmol/L [facility] Chloride 102 100 - 114 mmol/L [facility] CO2 29 22 - 32 mmol/L [facility] Anion gap 11 8 - 16 mmol/L [facility] BUN 25(H) 8 - 24 mg/dL [facility] Creatinine 0.70 0.60 - 1.30 mg/dL [facility] Glucose 110 70 - 199 mg/dL [facility] Comment: Interpretive Data Fasting glucose >/= 126 [...] interpretive data was last revised 2017. Calcium 10.1 8.4 - 10.5 mg/dL [facility] Blood specimen (specimen) 03/14/2018 10:56 AM CDT 03/14/2018 4:09 PM CDT Narrative [facility] - 03/14/2018 4:42 PM CDT us Jarvis Boston MD LAB BLOOD ORDERABLE S Final Result Performing Organization Address [facility] de Phone Number [facility] [address] [place], [place] [id number] * Vitamin D 25 hydroxy (03/14/2018 10:56 AM CDT) Vitamin D 25-OH 30 30 - 80 ng/mL [facility] Blood specimen (specimen) 03/14/2018 10:56 AM CDT 03/14/2018 4:09 PM CDT Narrative [facility] - 03/14/2018 8:29 PM CDT Jarvis Boston MD LAB BLOOD ORDERABLE S Final Result Performing Organization Address [facility] Co de Phone Number [facility] [address] [place] [address] documented in this encounter Visit Diagnoses Diagnosis Vitamin D deficiency Benign hypertension Essential hypertension, benign documented in this encounter Care Teams Submersible Pilot Relationship Specialty Start Date End Date Jarvis Boston MD PCP - General 10/29/16 03/14/22 documented as of this encounter
--- OUTSIDE RECORDS SUMMARY | 2024-08-13 05:24 | XMS_ITS | Encounter Summary ---
Author Organization [facility] Healthcare Address [address] [place] [address] Care Team Providers Care At Risk Paraprofessional Name Role Phone Jarvis Boston MD Primary Care Provi evelyne Encounter Details Date Type Department Care Team (Late st Contact Info) Description 11/29/2018 7:50 PM CDT [address] [address] Moderate episode of recurrent major depressive disorder (CMS/HCC); Benign hypertension; Chronic pain syndrome Social History Tobacco Use Types Packs/Day Years Used Date Smoking Tobacco: Never Smokeless Tobacco: Never Alcohol Use Standard Drinks/Week Comments Yes 0 (1 standard drink = 0.6 oz pur e alcohol) Comments Unknown Sex and Gender Information Value Date Recorded Sex Assigned at Not on file Legal Sex Female 11:52 PM TRIP MOTOR OPERATOR Gender Identity Female 09/15/2022 2:42 PM TRIP MOTOR OPERATOR Sexual Orientation Straight 09/15/2022 2: 42 PM TRIP MOTOR OPERATOR documented as of this encounter Plan of Treatment Not on file documented as of this encounter Procedures Procedure Name Priority Date/Time Associated Diagnosis Comments EGFR Routine 11/29/2018 8:04 PM CDT Benign hypertension Chronic pain syndrome Moderate episode of recurrent major depressive disorder (CMS/HCC) TSH Routine 11/29/2018 8:04 PM CDT Moderate episode of recurrent major depressive disorder (CMS/HCC) VITAMIN B12 Routine 11/29/2018 8:04 PM CDT Moderate episode of recurrent major depressive disorder (CMS/HCC) LIPID PANEL Routine 11/29/2018 8:04 PM CDT Benign hypertension COMPREHENSIVE METABOLIC PANEL Routine 11/29/2018 8:04 PM CDT Benign hypertension Chronic pain syndrome Moderate episode of recurrent major depressive disorder (CMS/HCC) documented in this encounter Results * eGFR (11/29/2018 8:04 PM CDT) eGFR 92 mL/min/1.7 3 m2 [facility] Comment: Interpretive Data Reference Interval Normal ?>/= 90 mL/min/1.73m2 Mildly decreased* ? 60 - 89 mL/min/1.73m2 Mildly to moderately decreased ?45 - 59 mL/min/1.73m2 Moderately to severely decreased ??30 - 44 mL/min/1.73m2 Severely decreased ?15 - 29 mL/min/1.73m2 Kidney Failure ?< 15 ??mL/min/1.73m2 *Relative to young adult level If -Micronesian multiply value by 1.16. Estimated glomerular filtration [...] was last reviewed 2016. Blood specimen (specimen) 11/29/2018 8:04 PM CDT 11/29/2018 8:04 PM CDT Narrative [facility] - 11/29/2018 8:39 PM CDT us Jarvis Boston MD LAB BLOOD ORDERABLE S Final Result [facility] [address] Department [place] [address] * (ABNORMAL) Comprehensive metabolic panel (11/29/2018 8:04 PM CDT) Sodium 140 135 - 145 mmol/L [facility] Potassium, pl 4.2 3.3 - 4.9 mmol/L [facility] Chloride 102 97 - 110 mmol/L [facility] CO2 26 22 - 32 mmol/L [facility] Anion gap 12 2 - 15 mmol/L [facility] BUN 28(H) 8 - 25 mg/dL [facility] Creatinine 0.60 0.60 - 1.10 mg/dL [facility] Glucose 96 70 - 199 mg/dL [facility] Comment: [...] data was last revised 2017. Calcium 10.1 8.5 - 10.3 mg/dL [facility] Bilirubin, total 0.5 0.1 - 1.2 mg/dL [facility] Protein, pl 7.6 6.5 - 8.5 g/dL [facility] Albumin 4.1 3.5 - 5.0 g/dL [facility] Alk phos 137(H) 40 - 130 Units/L [facility] ALT 39 7 - 45 Units/L [facility] AST 29 10 - 45 Units/L [facility] Blood specimen (specimen) 11/29/2018 8:04 PM CDT 11/29/2018 8:04 PM CDT Narrative [facility] - 11/29/2018 8:39 PM CDT us Jarvis Boston MD LAB BLOOD ORDERABLE S Final Result [facility] [address] Department [place] [address] * Lipid panel (11/29/2018 8:04 PM CDT) Cholesterol 163 30 - 199 mg/dL [facility] Comment: [...] Data was last revised on 2018. Triglycerides 52 <=149 mg/dL [facility] Comment: Interpretive Data [...] Data was last revised on 2018. HDL 78 >=40 mg/dL [facility] Comment: Interpretive Data Ages [...] was last revised on 2018. LDL, calculated 75 <=129 mg/dL [facility] Comment: Interpretive Data Ages [...] was last revised on 2018. Non-HDL Cholesterol 85 mg/dL [facility] Comment: Interpretive Data Ages < [...] 2018. Chol/HDL ratio 2 [facility] Blood specimen (specimen) 11/29/2018 8:04 PM CDT 11/29/2018 8:04 PM CDT Narrative [facility] - 11/29/2018 8:39 PM CDT Jarvis Boston MD LAB BLOOD ORDERABLE S Final Result Performing Organization Address [facility] Co de Phone Number [facility] [address] [place] [address] * TSH (11/29/2018 8:04 PM CDT) Thyroid Stimulating Hormone 2.27 0.30 - 4.20 mcIUnit/mL [facility] Blood specimen (specimen) 11/29/2018 8:04 PM CDT 11/29/2018 8:04 PM CDT Narrative [facility] - 11/29/2018 8:39 PM CDT Jarvis Boston MD LAB BLOOD ORDERABLE S Final Result Performing Organization Address [facility] Co de Phone Number [facility] [address] [place] [address] * Vitamin B12 (11/29/2018 8:04 PM CDT) Vitamin B12 388 230 - 1,250 pg/mL [facility] Blood specimen (specimen) 11/29/2018 8:04 PM CDT 11/29/2018 8:04 PM CDT Narrative [facility] - 11/29/2018 8:39 PM CDT Jarvis Boston MD LAB BLOOD ORDERABLE S Final Result [facility] [address] Department [place] [address] documented in this encounter Visit Diagnoses Diagnosis Moderate episode of recurrent major depressive disorder (HCC) Benign hypertension Essential hypertension, benign Chronic pain syndrome documented in this encounter Care Teams At Risk Paraprofessional Relationship Specialty Start Date End Date Jarvis Boston MD PCP - General 10/29/16 03/14/22 documented as of this encounter
--- OUTSIDE RECORDS SUMMARY | 2024-08-13 05:24 | XMS_ITS | Encounter Summary ---
Author Organization [facility] Medical Group Address [address] [place] [address] Care Team Providers Care Seed Corn Manager Production Name Role Phone Jarvis Boston MD Primary Care Provi evelyne Reason for Visit * Reason Comments Follow-up Hypertension Encounter Details Date Type Department Care Team (Late st Contact Info) Description 01/05/2018 1:15 PM CDT Office Visit [facility] [address] [place] [phone] Cayetano Chawla PA [address] [place] [address] [address] [place] [address] Moderate episode of recurrent major depressive disorder (CMS/HCC) (Primary Dx); BMI 50.0-59.9, adult (CMS/HCC); Morbid obesity with BMI of 50.0-59.9, adult (CMS/HCC); Chronic stasis dermatitis; Benign hypertension Social History Tobacco Use Types Packs/Day Years Used Date Smoking Tobacco: Never Smokeless Tobacco: Never Alcohol Use Standard Drinks/Week Comments Yes 0 (1 standard drink = 0.6 oz pur e alcohol) Comments Unknown Sex and Gender Information Value Date Recorded Sex Assigned at Not on file Legal Sex Female 11:52 PM PULVERIZER Gender Identity Female 09/15/2022 2:42 PM PULVERIZER Sexual Orientation Straight 09/15/2022 2: 42 PM PULVERIZER documented as of this encounter Last Filed Vital Signs Vital Sign Reading Time Taken Comments Blood Pressure 146/56 01/05/2018 1:38 PM CDT Pulse 76 01/05/2018 1:22 PM CDT Temperature - - Respiratory Rate 18 01/05/2018 1:22 PM CDT Oxygen Saturation - - Inhaled Oxygen Concentration - - Weight - - Height 158.8 cm (5' 2.5 ) 01/05/2018 1:22 PM CDT Body Mass Index - - documented in this encounter Progress Notes * Cayetano Chawla PA - 01/05/2018 1:15 PM CDT Subjective/Objective Patient ID: Lupis Juarez is a 72 y.o. female. Chief Complaint Follow-up and Hypertension HPI Pt here to Fu on depression and Prozac started a month ago. She is doing well on the prozac, no side effects. Depression better . Wishes to cont same dose. But her supervisor sanding took her off the hormone so pt is experiencing hot flashes and dry vaginal issues. Taking the HCTZ daily and that has helped. Review of Systems Constitutional: Negative for chills and fever. Respiratory: Negative for cough and shortness of breath. Cardiovascular: Positive for leg swelling. Negative for chest pain. Psychiatric/Behavioral: The patient is not nervous/anxious (no depression, improved). Vitals: 01/05/18 1322 01/05/18 1338 BP: 138/66 146/56 BP Location: Left arm Patient Position: Sitting Pulse: 76 Resp: 18 Height: 158.8 cm (5' 2.5 ) Physical Exam Constitutional: She appears well-developed and well-nourished. Distressed: morbid obese, WC bound. Cardiovascular: Normal rate, regular rhythm and normal heart sounds. No murmur heard. Pulmonary/Chest: Effort normal and breath sounds normal. No respiratory distress. She has no wheezes. She has no rales. Musculoskeletal: Severe edema BL LE , hangs over shoes, venous stasis changes. Min erythematous patch R anterior lower leg but no streaking, warmth or tenderness, no open sores. No induration Assessment/Plan Diagnoses and all orders for this visit: Moderate episode of recurrent major depressive disorder (CMS/HCC) (Primary) Comments: Improved and will continue Prozac 20 at this time BMI 50.0-59.9, adult (CMS/HCC) Morbid obesity with BMI of 50.0-59.9, adult (CMS/HCC) Comments: The patient was counseled on the importance of maintaining a healthy weight and the risks of obesity. Weight loss recommended. Chronic stasis dermatitis Comments: Referred to vascular previously. Elevation. Chronic. No sign of infection or cellulitis at this time Benign hypertension Comments: Blood pressure is up today but typically normal. Follow-up in 2 months will recheck at that time. Check a couple times between now and then and if persistently high to follow up before then. Recommend DASH diet, heart healthy lifestyle, exercise. Discussed the risks of hypertension. Follow-up 2 months with fasting labs ahead Side effects, risks, interactions reviewed with patient. Indications for testing discussed. Any further problems to contact us. She was told what to look out for and verbalized understanding. The patient was given the opportunity to have all questions answered today and was in agreement with the plan of care. Cosigned by Jarvis Boston MD at 01/06/2018 5:47 PM CDT documented in this encounter Plan of Treatment Not on file documented as of this encounter Visit Diagnoses Diagnosis Moderate episode of recurrent major depressive disorder (HCC)- Primary BMI 50.0-59.9, adult (HCC) Morbid obesity with BMI of 50.0-59.9, adult (HCC) Chronic stasis dermatitis Benign hypertension Essential hypertension, benign documented in this encounter Discontinued Medications Medication Sig Discontinue Reason Start Date End Da te CARTIA XT 240 mg 24 hr capsule TAKE 1 CAPSULE BY MOUTH EVERY DAY 11/28/2017 01/05/2018 estradiol (ESTRACE) 1 mg tablet take 1 tablet by oral route every day 01/28/2015 01/05/2018 medroxyPROGESTERone (PROVERA) 5 mg tablet take 1 tablet by oral route every day 03/10/2016 01/05/2018 documented as of this encounter Care Teams Seed Corn Manager Production Relationship Specialty Start Date End Date Jarvis Boston MD PCP - General 10/29/16 03/14/22 documented as of this encounter
--- OUTSIDE RECORDS SUMMARY | 2024-08-13 05:24 | XMS_ITS | Encounter Summary ---
Author Organization [facility] Healthcare Address [address] [place] [address] Care Team Providers Care Electronic Parts Designer Name Role Phone Jarvis Boston MD Primary Care Provi evelyne Encounter Details Date Type Department Care Team (Late st Contact Info) Description 01/05/2018 7:25 PM CDT Lab [address] [address] Essential hypertension Social History Tobacco Use Types Packs/Day Years Used Date Smoking Tobacco: Never Smokeless Tobacco: Never Alcohol Use Standard Drinks/Week Comments Yes 0 (1 standard drink = 0.6 oz pur e alcohol) Comments Unknown Sex and Gender Information Value Date Recorded Sex Assigned at Not on file Legal Sex Female 11:52 PM OIL PIPELINE DISPATCHER Gender Identity Female 09/15/2022 2:42 PM OIL PIPELINE DISPATCHER Sexual Orientation Straight 09/15/2022 2: 42 PM OIL PIPELINE DISPATCHER documented as of this encounter Plan of Treatment Not on file documented as of this encounter Procedures Procedure Name Priority Date/Time Associated Diagnosis Comments EGFR Routine 01/05/2018 7:54 PM CDT Essential hypertension BASIC METABOLIC PANEL Routine 01/05/2018 7:54 PM CDT Essential hypertension documented in this encounter Results * eGFR (01/05/2018 7:54 PM CDT) eGFR 79 mL/min/1.7 3 m2 [facility] Comment: Interpretive Data Reference Interval Normal ?>/= 90 mL/min/1.73m2 Mildly decreased* ? 60 - 89 mL/min/1.73m2 Mildly to moderately decreased ?45 - 59 mL/min/1.73m2 Moderately to severely decreased ??30 - 44 mL/min/1.73m2 Severely decreased ?15 - 29 mL/min/1.73m2 Kidney Failure ?< 15 ??mL/min/1.73m2 *Relative to young adult level If -Barbadian multiply value by 1.16. Estimated glomerular filtration [...] was last reviewed 2016. Blood specimen (specimen) 01/05/2018 7:54 PM CDT 01/05/2018 8:04 PM CDT Narrative [facility] - 01/05/2018 8:12 PM CDT Cayetano BROWNING LAB BLOOD ORDERABLES Fi nal Result [facility] [address] Department [place] [address] * Basic metabolic panel (01/05/2018 7:54 PM CDT) Sodium 138 135 - 145 mmol/L [facility] Potassium, pl 3.7 3.5 - 5.1 mmol/L [facility] Chloride 102 100 - 114 mmol/L [facility] CO2 28 22 - 32 mmol/L [facility] BUN 24 8 - 24 mg/dL [facility] Glucose 109 70 - 199 mg/dL [facility] Comment: [...] Current interpretive data was last revised 2017. Creatinine 0.76 0.60 - 1.30 mg/dL [facility] Calcium 9.9 8.4 - 10.5 mg/dL [facility] Anion gap 12 8 - 16 mmol/L [facility] Blood specimen (specimen) 01/05/2018 7:54 PM CDT 01/05/2018 7:54 PM CDT Narrative [facility] - 01/05/2018 8:12 PM CDT Cayetano BROWNING LAB BLOOD ORDERABLES Fi nal Result [facility] [address] Department of Laboratories [place], [place] [phone] documented in this encounter Visit Diagnoses Diagnosis Essential hypertension Unspecified essential hypertension documented in this encounter Care Teams Electronic Parts Designer Relationship Specialty Start Date End Date Jarvis Boston MD PCP - General 10/29/16 03/14/22 documented as of this encounter
--- OUTSIDE RECORDS SUMMARY | 2024-08-13 05:24 | XMS_ITS | Encounter Summary ---
Author Organization [facility] Healthcare Address [address] [place] [address] Care Team Providers Care Wearing Apparel Assembler Name Role Phone Jarvis Boston MD Primary Care Provi [facility] Encounter Details Date Type Department Care Team (Late st Contact Info) Description 06/14/2018 2:30 PM FERTILIZING MACHINE OPERATOR Lab [address] [address] IGT (impaired glucose tolerance); Hypertension, unspecified type Social History Tobacco Use Types Packs/Day Years Used Date Smoking Tobacco: Never Smokeless Tobacco: Never Alcohol Use Standard Drinks/Week Comments Yes 0 (1 standard drink = 0.6 oz pur e alcohol) Comments Unknown Sex and Gender Information Value Date Recorded Sex Assigned at Not on file Legal Sex Female 11:52 PM FERTILIZING MACHINE OPERATOR Gender Identity Female 09/15/2022 2:42 PM FERTILIZING MACHINE OPERATOR Sexual Orientation Straight 09/15/2022 2: 42 PM FERTILIZING MACHINE OPERATOR documented as of this encounter Plan of Treatment Not on file documented as of this encounter Procedures Procedure Name Priority Date/Time Associated Diagnosis Comments EGFR Routine 06/14/2018 9:17 AM FERTILIZING MACHINE OPERATOR Hypertension, unspecified type CHOLESTEROL, LDL, DIRECT Routine 06/14/2018 9:17 AM FERTILIZING MACHINE OPERATOR Hypertension, unspecified type IGT (impaired glucose tolerance) HEMOGLOBIN A1C Routine 06/14/2018 9:17 AM FERTILIZING MACHINE OPERATOR IGT (impaired glucose tolerance) COMPREHENSIVE METABOLIC PANEL Routine 06/14/2018 9:17 AM FERTILIZING MACHINE OPERATOR Hypertension, unspecified type documented in this encounter Results * eGFR (06/14/2018 9:17 AM FERTILIZING MACHINE OPERATOR) Pathologist [facility] eGFR 80 mL/min/1.7 3 m2 [facility] Comment: Interpretive Data Reference Interval Normal ?>/= 90 mL/min/1.73m2 Mildly decreased* ? 60 - 89 mL/min/1.73m2 Mildly to moderately decreased ?45 - 59 mL/min/1.73m2 Moderately to severely decreased ??30 - 44 mL/min/1.73m2 Severely decreased ?15 - 29 mL/min/1.73m2 Kidney Failure ?< 15 ??mL/min/1.73m2 *Relative to young adult level If -Anguillan multiply value by 1.16. Estimated glomerular filtration [...] was last reviewed 2016. Blood specimen (specimen) 06/14/2018 9:17 AM FERTILIZING MACHINE OPERATOR 06/14/2018 2:58 PM FERTILIZING MACHINE OPERATOR Narrative [facility] - 06/14/2018 3:21 PM FERTILIZING MACHINE OPERATOR us Jarvis Boston MD LAB BLOOD ORDERABLE S Final Result [facility] [address] Department [place] [address] * (ABNORMAL) Comprehensive metabolic panel (06/14/2018 9:17 AM FERTILIZING MACHINE OPERATOR) Sodium 136 135 - 145 mmol/L [facility] [...] [facility] Blood specimen (specimen) 06/14/2018 9:17 AM FERTILIZING MACHINE OPERATOR 06/14/2018 2:58 PM FERTILIZING MACHINE OPERATOR Narrative [facility] - 06/14/2018 3:21 PM FERTILIZING MACHINE OPERATOR us Jarvis Boston MD LAB BLOOD ORDERABLE S Final Result [facility] [address] Department [place] [address] * Cholesterol, LDL, direct (06/14/2018 9:17 AM FERTILIZING MACHINE OPERATOR) LDL Cholesterol, Direct 71 <=129 mg/dL [facility] [...] 2018. Blood specimen (specimen) 06/14/2018 9:17 AM FERTILIZING MACHINE OPERATOR 06/14/2018 2:58 PM FERTILIZING MACHINE OPERATOR Narrative [facility] - 06/14/2018 3:21 PM FERTILIZING MACHINE OPERATOR us Jarvis Boston MD LAB BLOOD ORDERABLE S Final Result [facility] [address] [place] [address] * Hemoglobin A1c (06/14/2018 9:17 AM FERTILIZING MACHINE OPERATOR) Pathologist [facility] Hgb A1C 5.5 4.0 - 6.0 % [facility] Comment: Interpretive Data Hemoglobin A1c ADA Interpretive Guidelines ??<7% ?? Glycemia controlled ??>8% ?? Hyperglycemia, additional action recommended Maureen Immunochemical Method Current interpretive data was last revised on 2016 [facility] [place] [address] Estimated Average Glucose 111 mg/dL [facility] Comment:Testing performed by : [facility], [place] [address] Blood specimen (specimen) 06/14/2018 9:17 AM FERTILIZING MACHINE OPERATOR 06/14/2018 9:15 PM FERTILIZING MACHINE OPERATOR Narrative [facility] - 06/14/2018 9:41 PM FERTILIZING MACHINE OPERATOR us Jarvis Boston MD LAB BLOOD ORDERABLE S Final Result [facility] [address] Department of Laboratories [place] [phone] documented in this encounter Visit Diagnoses Diagnosis IGT (impaired glucose tolerance) Impaired glucose tolerance test Hypertension, unspecified type documented in this encounter Care Teams Wearing Apparel Assembler Relationship Specialty Start Date End Date Jarvis Boston MD PCP - General 10/29/16 03/14/22 documented as of this encounter
--- OUTSIDE RECORDS SUMMARY | 2024-08-13 05:24 | XMS_ITS | Encounter Summary ---
Author Organization [facility] Healthcare Address [address] [place] [address] Care Team Providers Care Tailor Helper Name Role Phone Jarvis Boston MD Primary Care Provi [facility] Encounter Details Date Type Department Care Team (Late st Contact Info) Description 04/16/2019 Documentation [facility] Intensive OP Behavioral Health [address] [place] [address] 2[address] [place] [address] Zaida Valladares RN Social History Tobacco Use Types Packs/Day Years Used Date Smoking Tobacco: Never Smokeless Tobacco: Never Alcohol Use Standard Drinks/Week Comments Not Currently 0 (1 standard drink = 0.6 oz pur e alcohol) no recently PHQ-2 Answer Date Recorded PHQ-2 Score 4 04/14/2019 Comments Unknown Sex and Gender Information Value Date Recorded Sex Assigned at Not on file Legal Sex Female 11:52 PM TRAINING DESIGNER Gender Identity Female 09/15/2022 2:42 PM TRAINING DESIGNER Sexual Orientation Straight 09/15/2022 2: 42 PM TRAINING DESIGNER documented as of this encounter Progress Notes * Zaida Valladares RN - 04/16/2019 9:58 AM CDT 0930: Met with pt to complete PHQ 9 , results 14. Patient states she has history of depression and is taking prozac and recently added wellbutrin. Reports her mood is better some now. Discussed outpatient [facility] program and brochure given to pt documented in this encounter Plan of Treatment Not on file documented as of this encounter Visit Diagnoses Not on filedocumented in this encounter Care Teams Tailor Helper Relationship Specialty Start Date End Date Jarvis Boston MD PCP - General 10/29/16 03/14/22 documented as of this encounter
--- OUTSIDE RECORDS SUMMARY | 2024-08-13 05:24 | XMS_ITS | Encounter Summary ---
Author Organization [facility] Medical Group Address [address] [place] [address] Care Team Providers Care Pressure Steamer Tender Name Role Phone Jarvis Boston MD Primary Care Provi [facility] Encounter Details Date Type Department Care Team (Late st Contact Info) Description 11/29/2018 10:00 AM CDT Lab [facility] [address] [place] [address] [address] [place] [id number] Benign hypertension Social History Tobacco Use Types Packs/Day Years Used Date Smoking Tobacco: Never Smokeless Tobacco: Never Alcohol Use Standard Drinks/Week Comments Yes 0 (1 standard drink = 0.6 oz pur e alcohol) Comments Unknown Sex and Gender Information Value Date Recorded Sex Assigned at Not on file Legal Sex Female 11:52 PM FAMILY MEDICINE PHYSICIAN Gender Identity Female 09/15/2022 2:42 PM FAMILY MEDICINE PHYSICIAN Sexual Orientation Straight 09/15/2022 2: 42 PM FAMILY MEDICINE PHYSICIAN documented as of this encounter Plan of Treatment Not on file documented as of this encounter Visit Diagnoses Diagnosis Benign hypertension Essential hypertension, benign documented in this encounter Care Teams Pressure Steamer Tender Relationship Specialty Start Date End Date Jarvis Boston MD PCP - General 10/29/16 03/14/22 documented as of this encounter
--- OUTSIDE RECORDS SUMMARY | 2024-08-13 05:24 | XMS_ITS | Encounter Summary ---
Author Organization [facility] Medical Group Address [address] [place] [address] Care Team Providers Care Freight Weigher Name Role Phone Jarvis Boston MD Primary Care Provi [facility] Encounter Details Date Type Department Care Team (Late st Contact Info) Description 01/05/2018 Telephone [facility] [address] [place] [address] Cayetano Chawla PA [address] [facility] [address] [place] [address] Social History Tobacco Use Types Packs/Day Years Used Date Smoking Tobacco: Never Smokeless Tobacco: Never Alcohol Use Standard Drinks/Week Comments Yes 0 (1 standard drink = 0.6 oz pur e alcohol) Comments Unknown Sex and Gender Information Value Date Recorded Sex Assigned at Not on file Legal Sex Female 11:52 PM CLOTH BIN PACKER Gender Identity Female 09/15/2022 2:42 PM CLOTH BIN PACKER Sexual Orientation Straight 09/15/2022 2: 42 PM CLOTH BIN PACKER documented as of this encounter Miscellaneous Notes * Telephone Encounter - Dani Monique - 01/05/2018 3:28 PM CDT noted * Telephone Encounter - Christina Vargas MA - 01/05/2018 3:22 PM CDT dani * Telephone Encounter - Cayetano Chawla PA - 01/05/2018 3:20 PM CDT I think for today she just needed a nonfasting BMP Future was a CMp, lipids, A1c * Telephone Encounter - Christina Vargas MA - 01/05/2018 2:18 PM CDT halley * Telephone Encounter - Dani Monique - 01/05/2018 2:11 PM CDT Pt came down after seeing you insisting she needed labs done that were ordered by doreen at her november.What labs are needed today? We can not tell based on the labs ordered, there is no expected date todecipher between them. Pt also has upcoming labs in January. Please advise documented in this encounter Plan of Treatment Not on file documented as of this encounter Visit Diagnoses Not on filedocumented in this encounter Care Teams Freight Weigher Relationship Specialty Start Date End Date Jarvis Boston MD PCP - General 10/29/16 03/14/22 documented as of this encounter
--- OUTSIDE RECORDS SUMMARY | 2024-08-13 05:24 | XMS_ITS | Encounter Summary ---
Author Organization [facility] Care Team Providers Care Csm Consultant Name Role Phone Jarvis Boston MD Primary Care Provi [facility] Encounter Details Date Type Department Care Team (Latest Contact Info) Description 03/06/2019 Travel Social History Tobacco Use Types Packs/Day Years Used Date Smoking Tobacco: Never Smokeless Tobacco: Never Alcohol Use Standard Drinks/Week Comments Yes 0 (1 standard drink = 0.6 oz pur e alcohol) Comments Unknown Sex and Gender Information Value Date Recorded Sex Assigned at Not on file Legal Sex Female 11:52 PM PHARMACY TECHNICIAN ASSISTANT Gender Identity Female 09/15/2022 2:42 PM PHARMACY TECHNICIAN ASSISTANT Sexual Orientation Straight 09/15/2022 2: 42 PM PHARMACY TECHNICIAN ASSISTANT documented as of this encounter Plan of Treatment Not on file documented as of this encounter Visit Diagnoses Not on filedocumented in this encounter Care Teams Csm Consultant Relationship Specialty Start Date End Date Jarvis Boston MD PCP - General 10/29/16 03/14/22 documented as of this encounter
--- OUTSIDE RECORDS SUMMARY | 2024-08-13 05:24 | XMS_ITS | Encounter Summary ---
Author Organization [facility] Medical Group Address [address] [place] [address] Care Team Providers Care Senior Teradata Developer Name Role Phone Jarvis Boston MD Primary Care [facility] Encounter Details Date Type Department Care Team (Late st Contact Info) Description 03/14/2018 Telephone [place] [facility] [address] [place] [address] [address] [place] [address] Jarvis Boston MD [address] [place] [address] Social History Tobacco Use Types Packs/Day Years Used Date Smoking Tobacco: Never Smokeless Tobacco: Never Alcohol Use Standard Drinks/Week Comments Yes 0 (1 standard drink = 0.6 oz pur e alcohol) Comments Unknown Sex and Gender Information Value Date Recorded Sex Assigned at Not on file Legal Sex Female 11:52 PM PAINTING TRADES WORKER Gender Identity Female 09/15/2022 2:42 PM PAINTING TRADES WORKER Sexual Orientation Straight 09/15/2022 2: 42 PM PAINTING TRADES WORKER documented as of this encounter Miscellaneous Notes * Telephone Encounter - Jael Rdz - 03/14/2018 2:09 PM CDT I called the pharmacy and took care of it. Thank you Cayetano. * Telephone Encounter - Christina Vargas MA - 03/14/2018 1:22 PM CDT jael * Telephone Encounter - Cayetano Chawla PA - 03/14/2018 11:33 AM CDT Inhale 2 puffs every 4 (four) hours as needed for wheezing (every 4 to 6 hours as needed)., <~~This is what is on the Rx. Do they need anything else? * Telephone Encounter - Rohini Guzman MA - 03/14/2018 11:15 AM CDT ELVIRA * Telephone Encounter - Jael Rdz - 03/14/2018 11:02 AM CDT Pharmacy faxed us asking for specific directions to process the prescription for Proair inhaler. Says pt's plan requires this. Needs frequency of how pt will be using the medication and days supply limitations. Please advise. documented in this encounter Plan of Treatment Not on file documented as of this encounter Visit Diagnoses Not on filedocumented in this encounter Care Teams Senior Teradata Developer Relationship Specialty Start Date End Date Jarvis Bosotn MD PCP - General 10/29/16 03/14/22 documented as of this encounter
--- OUTSIDE RECORDS SUMMARY | 2024-08-13 05:24 | XMS_ITS | Encounter Summary ---
Author Organization [facility] Medical Group Address [address] [place] [address] Care Team Providers Care Youth Support Worker Name Role Phone Jarvis Boston MD Primary Care Provi [facility] Reason for Visit * Reason Comments Hypertension Depression Encounter Details Date Type Department Care Team (Late st Contact Info) Description 06/28/2018 1:30 PM AUTO STRIPER Office Visit [facility] [address] [place] [address] [address] [place] [phone] aJrvis Boston MD [address] [place] [id number] Benign hypertension (Primary Dx); Chronic pain syndrome; Moderate episode of recurrent major depressive disorder (CMS/HCC); Simple chronic bronchitis (CMS/HCC); Colon cancer screening Social History Tobacco Use Types Packs/Day Years Used Date Smoking Tobacco: Never Smokeless Tobacco: Never Alcohol Use Standard Drinks/Week Comments Yes 0 (1 standard drink = 0.6 oz pur e alcohol) Comments Unknown Sex and Gender Information Value Date Recorded Sex Assigned at Not on file Legal Sex Female 11:52 PM AUTO STRIPER Gender Identity Female 09/15/2022 2:42 PM AUTO STRIPER Sexual Orientation Straight 09/15/2022 2: 42 PM AUTO STRIPER documented as of this encounter Last Filed Vital Signs Vital Sign Reading Time Taken Comments Blood Pressure 142/62 06/28/2018 1:42 PM AUTO STRIPER Pulse 76 06/28/2018 1:42 PM AUTO STRIPER Temperature - - Respiratory Rate 18 06/28/2018 1:42 PM AUTO STRIPER Oxygen Saturation - - Inhaled Oxygen Concentration - - Weight - - Height - - Body Mass Index - - documented in this encounter Patient Instructions * Patient Instructions* Jarvis Boston MD - 06/28/2018 1:30 PM AUTO STRIPER Add catapres to night first and after a week add a wecond at night if sedating or take one in ama nd one in pm STRIPER documented in this encounter Ordered Prescriptions Prescription Sig Dispense Quantity Refills Last Filled Start Date End Date cloNIDine (CATAPRES) 0.1 mg tablet Take 1 tablet (0.1 mg total) by mouth 2 (two) times a day. 180 tablet 3 06/28/2018 03/06/2019 cloNIDine (CATAPRES) 0.1 mg tablet Take 1 tablet (0.1 mg total) by mouth 2 (two) times a day. 180 tablet 3 06/28/2018 06/28/2018 FLUoxetine (PROzac) 20 mg tablet Take 1 tablet (20 mg total) by mouth daily. 90 tablet 3 06/28/2018 10/24/2018 FLUoxetine (PROzac) 20 mg tablet Take 1 tablet (20 mg total) by mouth daily. 90 tablet 3 06/28/2018 06/28/2018 HYDROcodone-acetam inophen (NORCO) 5-325 mg per tablet Take 1 tablet by mouth every 6 hours as needed for pain 120 tablet 06/28/2018 07/27/2018 documented in this encounter Progress Notes * Jarvis Boston MD - 06/28/2018 1:30 PM CST Subjective/Objective Patient ID: Lupis Juarez is a 73 y.o. female. Chief Complaint Hypertension and Depression Htn. Wheel chair bound. Djd. Chronic pain Review of Systems Constitutional: Negative. HENT: Negative for congestion, ear pain, facial swelling, hearing loss, mouth sores, nosebleeds, postnasal drip, rhinorrhea, sinus pressure, sneezing, sore throat, tinnitus, trouble swallowing and voice change. Eyes: Negative. Respiratory: Negative. Rare cougho. But feels tight Cardiovascular: Negative. Gastrointestinal: Negative. Endocrine: Negative. Genitourinary: Negative for decreased urine volume, difficulty urinating, dysuria, flank pain, frequency, genital sores, hematuria and urgency. Nocturia negative Musculoskeletal: Knees limiting. Wheelchair bound Skin: Negative for skin lesions Negative for puritis Negative for hives Neurological: Negative. Hematological: Negative. Psychiatric/Behavioral: Negative. Vitals: 06/28/18 1342 BP: 142/62 Pulse: 76 Resp: 18 Physical Exam Constitutional: She is oriented to person, place, and time. She appears well- developed and well-nourished. HENT: Head: Normocephalic and atraumatic. Eyes: Pupils are equal, round, and reactive to light. EOM are normal. Neck: Normal range of motion. Neck supple. Cardiovascular: Normal rate and regular rhythm. Peristernal chest tenderness. Pulmonary/Chest: Effort normal and breath sounds normal. Clear Abdominal: Soft. Bowel sounds are normal. Musculoskeletal: Normal range of motion. Neurological: She is alert and oriented to person, place, and time. Skin: Skin is warm and dry. Huge legs. edematous Psychiatric: She has a normal mood and affect. Her behavior is normal. Judgment and thought contentnormal. Lab on 06/14/2018 Component Date Value Ref Range Status ??? Hgb A1C 06/14/2018 5.5 4.0 - 6.0 % Final Comment: Interpretive Data Hemoglobin A1c ADA Interpretive Guidelines <7% Glycemia controlled >8% Hyperglycemia, additional action recommended Maureen Immunochemical Method Current interpretive data was last revised on 2016 Testing performed by: [facility], [place] [address] ??? Estimated Average Glucose 06/14/2018 111 mg/dL Final Testing performed by: [facility], [place] [address] ? ? LDL Cholesterol Direct 06/14/2018 71 <=129 mg/dL Final Comment: Interpretive Data Ages < or = 19 years Acceptable: <110 mg/dL Borderline high: 110-129 mg/dL High: >or= 130 mg/dL Ages > or = 20 years Optimal: <100 mg/dL Near optimal: 100-129 mg/dL Borderline high: 130-159 mg/dL High: >160 mg/dL Literature References: 1. Expert Panel on Integrated Guidelines for Cardiovascular Health and Risk Reduction in Children and Adolescents. Pediatrics 2011;128:S213 2. NCEP Expert Panel. Circulation 2004;110:227 Current Interpretive Data was last revised on 2018. ??? Sodium 06/14/2018 136 135 - 145 mmol/L Final ??? Potassium, pl 06/14/2018 3.7 3.5 - 5.1 mmol/L Final ??? Chloride 06/14/2018 101 100 - 114 mmol/L Final ??? CO2 06/14/2018 26 22 - 32 mmol/L Final ??? Anion Gap 06/14/2018 13 8 - 16 mmol/L Final ??? BUN 06/14/2018 25* 8 - 24 mg/dL Final ??? Creatinine 06/14/2018 0.75 0.60 - 1.30 mg/dL Final ??? Glucose 06/14/2018 94 70 - 199 mg/dL Final Comment: Interpretive [...] Current interpretive data was last revised 2017. ??? Calcium 06/14/2018 9.8 8.4 - 10.5 mg/dL Final ??? Bilirubin, total 06/14/2018 0.50 0.10 - 1.30 mg/dL Final ??? Protein, pl 06/14/2018 7.4 6.0 - 8.3 g/dL Final ??? Albumin 06/14/2018 3.7 3.2 - 4.8 g/dL Final ??? Alk phos 06/14/2018 121* 30 - 110 Units/L Final ??? ALT 06/14/2018 41 1 - 45 Units/L Final ??? AST 06/14/2018 30 7 - 40 Units/L Final ??? GFR 06/14/2018 80 mL/min/1.73 m2 Final Comment: Interpretive Data Reference Interval Normal >/= 90 mL/min/1.73m2 Mildly decreased* 60 - 89 mL/min/1.73m2 Mildly to moderately decreased 45 - 59 mL/min/1.73m2 Moderately to severely decreased 30 - 44 mL/min/1.73m2 Severely decreased 15 - 29 mL/min/1.73m2 Kidney Failure < 15 mL/min/1.73m2 *Relative to young adult level If -Serbian multiply value by 1.16. Estimated glomerular filtration [...] Current interpretive data was last reviewed 2016. .1 Assessment/Plan Diagnoses and all orders for this visit: Benign hypertension (Primary) Assessment & Plan: BP CONT A TOUCH HIGH AND ADD YULIA PRES TO START AT NIGHT AD THEN BID. RECHECK IN JANHypertension, Medical treament revolves around weight control, salt management, and meds when necessary. long asweight loss is necessary and you are able to drop weight we can cont to monitor the blood pressure and not add meds. Once the weight is not changing then it becomes nesessary to add meds to be able to reach the goal bp. Orders: - Comprehensive metabolic panel; Future - Lipid panel; Future Chronic pain syndrome Assessment & Plan: ON 3 NORCO A day and stable. Orders: - Comprehensive metabolic panel; Future Moderate episode of recurrent major depressive disorder (CMS/HCC) Assessment & Plan: frenewed prozac and feels does well Orders: - Comprehensive metabolic panel; Future - TSH; Future - Vitamin B12; Future Simple chronic bronchitis (CMS/HCC) Assessment & Plan: Cough well and hydrocodone tid helps Colon cancer screening Assessment & Plan: Order a cologuard Orders: - Stool DNA - Cologuard; Future Other orders - HYDROcodone-acetaminophen (NORCO) 5-325 mg per tablet; Take 1 tablet by mouth every 6 hours as needed for pain - FLUoxetine (PROzac) 20 mg tablet; Take 1 tablet (20 mg total) by mouth daily. - cloNIDine (CATAPRES) 0.1 mg tablet; Take 1 tablet (0.1 mg total) by mouth 2 (two) times a day. Side effects, risks, interactions reviewed with patient. Indications for testing discussed. Any further problems to contact us. She was told what to look out for and verbalized understanding. The patient was given the opportunity to have all questions answered today and was in agreement with the plan of care. STRIPER documented in this encounter Miscellaneous Notes * Assessment & Plan Note - Jarvis Boston MD - 06/28/2018 1:58 PM CSTAssociated Problem(s): Colon cancer screening (Resolved 05/20/2020) Order a cologuard STRIPER * Assessment & Plan Note - Jarvis Boston MD - 06/28/2018 1:54 PM CSTAssociated Problem(s): Simple chronic bronchitis (HCC) (Resolved 05/20/2020) Cough well and hydrocodone tid helps STRIPER * Assessment & Plan Note - Jarvis Boston MD - 06/28/2018 1:53 PM CSTAssociated Problem(s): Moderate episode of recurrent major depressive disorder (HCC) (Resolved 10/24/2018) frenewed prozac and feels does well STRIPER * Assessment & Plan Note - Jarvis Boston MD - 06/28/2018 1:53 PM CSTAssociated Problem(s): Chronic pain syndrome ON 3 NORCO A day and stable. STRIPER * Assessment & Plan Note - Jarvis Boston MD - 06/28/2018 1:52 PM CSTAssociated Problem(s): Benign hypertension BP CONT A TOUCH HIGH AND ADD YULIA PRES TO START AT NIGHT AD THEN BID. RECHECK IN JANHypertension, Medical treament revolves around weight control, salt management, and meds when necessary. long asweight loss is necessary and you are able to drop weight we can cont to monitor the blood pressure and not add meds. Once the weight is not changing then it becomes nesessary to add meds to be able to reach the goal bp. STRIPER documented in this encounter Plan of Treatment Scheduled Orders Name Type Priority Associated Diagnoses Orde r Schedule Stool DNA - Cologuard Lab Routine Colon cancer screening 1 Occurrences starting 06/28/2018 until 06/28/2019 documented as of this encounter Results * Vitamin B12 (11/29/2018 8:04 PM CDT) Vitamin B12 388 230 - 1,250 pg/mL [facility] Blood specimen (specimen) 11/29/2018 8:04 PM CDT 11/29/2018 8:04 PM CDT Narrative TATE - 11/29/2018 8:39 PM CDT us Jarvis Boston MD LAB BLOOD ORDERABLE S Final Result [facility] [id number] [facility] [place] [address] * TSH (11/29/2018 8:04 PM CDT) Thyroid Stimulating Hormone 2.27 0.30 - 4.20 mcIUnit/mL TATE Blood specimen (specimen) 11/29/2018 8:04 PM CDT 11/29/2018 8:04 PM CDT Narrative TATE - 11/29/2018 8:39 PM CDT us Jarvis Boston MD LAB BLOOD ORDERABLE S Final Result [facility] [id number] Department [place] [address] * Lipid panel (11/29/2018 8:04 PM CDT) [facility] Cholesterol 163 30 - 199 mg/dL TATE [...] MD LAB BLOOD [place] [address] [address] Department [place] [address] * (ABNORMAL) Comprehensive metabolic panel (11/29/2018 8:04 [...] CDT 11/29/2018 8:04 PM CDT Narrative TATE CH - 11/29/2018 8:39 PM CDT Jarvis Boston MD LAB BLOOD ORDERABLE S Final Result [facility] [id number] Department [place] [address] documented in this encounter Visit Diagnoses Diagnosis Benign hypertension- Primary Essential hypertension, benign Chronic pain syndrome Moderate episode of recurrent major depressive disorder (HCC) Simple chronic bronchitis (HCC) Simple chronic bronchitis Colon cancer screening Special screening for malignant neoplasms, colon Moderate episode of recurrent major depressive disorder (HCC) Benign hypertension Essential hypertension, benign Chronic pain syndrome documented in this encounter Discontinued Medications Medication Sig Discontinue Reason Start Date End Da te spironolactone (ALDACTONE) 25 mg tablet Take 12.5 mg by mouth daily. 1/2 pill daily Side effects 06/28/2018 HYDROcodone-acetaminophe n (NORCO) 5-325 mg per tablet Take 1 tablet by mouth every 6 hours as needed for pain Reorder 05/31/2018 06/28/2018 FLUoxetine (PROzac) 20 mg tablet Take 1 tablet (20 mg total) by mouth daily. 03/14/2018 06/28/2018 FLUoxetine (PROzac) 20 mg tablet Take 1 tablet (20 mg total) by mouth daily. 06/28/2018 06/28/2018 cloNIDine (CATAPRES) 0.1 mg tablet Take 1 tablet (0.1 mg total) by mouth 2 (two) times a day. 06/28/2018 06/28/2018 documented as of this encounter Care Teams Youth Support Worker Relationship Specialty Start Date End Date Jarvis Boston MD PCP - General 10/29/16 03/14/22 documented as of this encounter
--- OUTSIDE RECORDS SUMMARY | 2024-08-13 05:24 | XMS_ITS | Encounter Summary ---
Author Organization [facility] Medical [facility] Address [address] [place] [address] Care Team Providers Care Director Of Psychiatry Name Role Phone Jarvis Boston MD Primary Care [facility] Encounter Details Date Type Department Care Team (Late st Contact Info) Description 02/21/2018 Orders Only [facility] [address] [place] [address] [address] [place] [phone] Jarvis Boston MD [address] [place] [address] Impaired glucose tolerance test (Primary Dx); Essential hypertension Social History Tobacco Use Types Packs/Day Years Used Date Smoking Tobacco: Never Smokeless Tobacco: Never Alcohol Use Standard Drinks/Week Comments Yes 0 (1 standard drink = 0.6 oz pur e alcohol) Comments Unknown Sex and Gender Information Value Date Recorded Sex Assigned at Not on file Legal Sex Female 11:52 PM UNIVERSAL WINDING MACHINE OPERATOR Gender Identity Female 09/15/2022 2:42 PM UNIVERSAL WINDING MACHINE OPERATOR Sexual Orientation Straight 09/15/2022 2: 42 PM UNIVERSAL WINDING MACHINE OPERATOR documented as of this encounter Plan of Treatment Not on file documented as of this encounter Results * Hemoglobin A1c (02/28/2018 9:23 AM CDT) Hgb A1C 5.4 4.0 - 6.0 % [facility] Comment: Interpretive Data Hemoglobin A1c ADA Interpretive Guidelines ??<7% ?? Glycemia controlled ??>8% ?? Hyperglycemia, additional action recommended Maureen Immunochemical Method Current interpretive data was last revised on 2016 Testing performed by: [facility], [place] [address] Estimated Average Glucose 108 mg/dL [facility] Comment:Testing performed by : [facility], [place] [address] Blood specimen (specimen) 02/28/2018 9:23 AM CDT 03/01/2018 8:05 AM CDT Narrative [facility] - 03/01/2018 12:28 PM CDT us Jarvis Boston MD LAB BLOOD ORDERABLE S Final Result [facility] [address] [place] [address] * (ABNORMAL) Lipid panel with reflex to [...] LDL, calculated 67 60 - 129 mg/dL [facility] Comment: Interpretive Data Optimal: ? < 100 mg/dL Near Optimal: ?100 - 129 mg/dL Borderline High: ?? 130 - 159 mg/dL High: ?> 160 mg/dL Current interpretive data was last revised on 2016. Chol/HDL ratio 2 mg/dL [facility] Blood specimen (specimen) 02/28/2018 9:23 AM CDT 02/28/2018 11:31 PM CDT Narrative [facility] - 03/01/2018 12:15 AM CDT us Jarvis Boston MD LAB BLOOD ORDERABLE S Final Result [facility] [id number] [place] [address] * (ABNORMAL) Comprehensive metabolic panel (02/28/2018 9:23 AM CDT) Sodium 137 135 - 145 mmol/L [facility] Potassium, pl 4.0 3.5 - 5.1 mmol/L [facility] Chloride 99(L) 100 - 114 mmol/L [facility] CO2 27 22 - 32 mmol/L [facility] Anion gap 15 8 - 16 mmol/L [facility] BUN 19 8 - 24 mg/dL [facility] Creatinine 0.74 0.60 - 1.30 mg/dL [facility] Glucose 85 70 - 199 mg/dL [facility] Comment: Interpretive Data Fasting glucose >/= 126 [...] MD LAB BLOOD ORDERABLE S Final Result [facility] [address] [place] [address] documented in this encounter Visit Diagnoses Diagnosis Impaired glucose tolerance test- Primary Essential hypertension Unspecified essential hypertension Impaired glucose tolerance test Essential hypertension Unspecified essential hypertension documented in this encounter Care Teams Director Of Psychiatry Relationship Specialty Start Date End Date Jarvis Boston MD PCP - General 10/29/16 03/14/22 documented as of this encounter
--- OUTSIDE RECORDS SUMMARY | 2024-08-13 05:24 | XMS_ITS | Encounter Summary ---
Author Organization [facility] Medical [facility] Address [address] [place] [address] Care Team Providers Care Policy Advisor Name Role Phone Breanna Espana MD Primary Care Provi evelyne Reason for Visit * Reason Comments Hypertension Depression Encounter Details Date Type Department Care Team (Late st Contact Info) Description 03/14/2018 10:15 AM CDT Office Visit [facility] [address] [place] [address] [address] [place] [address] Breanna Espana MD [address] [place] [id number] Moderate episode of recurrent major depressive disorder (CMS/HCC) (Primary Dx); Benign hypertension; Chronic pain syndrome; Chronic stasis dermatitis; Mild persistent asthma without complication; Vitamin D deficiency; Bilateral impacted cerumen Social History Tobacco Use Types Packs/Day Years Used Date Smoking Tobacco: Never Smokeless Tobacco: Never Alcohol Use Standard Drinks/Week Comments Yes 0 (1 standard drink = 0.6 oz pur e alcohol) Comments Unknown Sex and Gender Information Value Date Recorded Sex Assigned at Not on file Legal Sex Female 11:52 PM LAND MOBILE RADIO TECHNICIAN Gender Identity Female 09/15/2022 2:42 PM LAND MOBILE RADIO TECHNICIAN Sexual Orientation Straight 09/15/2022 2: 42 PM LAND MOBILE RADIO TECHNICIAN documented as of this encounter Last Filed Vital Signs Vital Sign Reading Time Taken Comments Blood Pressure 140/66 03/14/2018 10:05 AM CDT Pulse 68 03/14/2018 10:05 AM CDT Temperature - - Respiratory Rate 18 03/14/2018 10:05 AM CDT Oxygen Saturation - - Inhaled Oxygen Concentration - - Weight - - Height - - Body Mass Index - - documented in this encounter Ordered Prescriptions Prescription Sig Dispense Quantity Refills Last Filled Start Date End Date albuterol HFA (PROAIR HFA) 90 mcg/actuation inhaler Inhale 2 puffs every 4 (four) hours as needed. As needed for wheezing 1 Inhaler 11 03/14/2018 9 spironolactone (ALDACTONE) 25 mg tablet Take 1 tablet (25 mg total) by mouth daily. 90 tablet 3 03/14/2018 8 fluticasone-salmet lina (ADVAIR DISKUS) 250-50 mcg/dose diskus inhaler Inhale 1 puff 2 (two) times a day. Rinse mouth with water after use to reduce aftertaste and incidence of candidiasis. Do not swallow. 3 each 3 03/14/2018 9 albuterol HFA (PROAIR HFA) 90 mcg/actuation inhaler Inhale 2 puffs every 4 (four) hours as needed for wheezing (every 4 to 6 hours as needed). 1 Inhaler 03/14/2018 8 dilTIAZem XR (CARDIZEM CD,DILACOR XR) 240 mg 24 hr capsule Take 1 capsule (240 mg total) by mouth daily. 90 capsule 3 03/14/2018 9 FLUoxetine (PROzac) 20 mg tablet Take 1 tablet (20 mg total) by mouth daily. 30 tablet 5 03/14/2018 8 fluticasone (FLONASE) 50 mcg/actuation nasal spray Administer 2 sprays into each nostril daily. 16 mL 11 03/14/2018 9 hydroCHLOROthiazid e (HYDRODIURIL) 25 mg tablet Take 1 tablet (25 mg total) by mouth daily. 90 tablet 03/14/2018 8 irbesartan (AVAPRO) 300 mg tablet Take 1 tablet (300 mg total) by mouth daily. 90 tablet 03/14/2018 8 documented in this encounter Progress Notes * Breanna Espana MD - 03/14/2018 10:15 AM CDT Subjective/Objective Patient ID: Lupis Juarez is a 72 y.o. female. Chief Complaint Hypertension and Depression Htn.r ear sto ped and worse after 'cleaning it this am. Comes in with wheelchair. Using cane to move out of wheelclhair as not abale to get anne marie dn around. Joint pain Review of Systems Constitutional: Negative. HENT: [...] Neurological: Negative. Hematological: Negative. Psychiatric/Behavioral: Negative. Vitals: 03/14/18 1005 BP: 140/66 Pulse: 68 Resp: 18 Physical Exam Constitutional: She is oriented to person, place, and time. She appears well- developed and well-nourished. HENT: Head: Normocephalic and atraumatic. Cerumen impaction Eyes: Pupils are equal, round, and reactive to light. EOM are normal. Neck: Normal range of motion. Neck supple. Cardiovascular: Normal rate and regular rhythm. Pulmonary/Chest: Effort normal and breath sounds normal. Abdominal: Soft. Bowel sounds are normal. Musculoskeletal: Normal range of motion. Struggles to get around . Come in with wheelchair. Neurological: She is alert and oriented to person, place, and time. Skin: Skin is warm and dry. Psychiatric: She has a normal mood and affect. Her behavior is normal. Judgment and thought contentnormal. Lab on 02/28/2018 Component Date Value Ref Range Status ??? Hgb A1C 02/28/2018 5.4 4.0 - 6.0 % Final Comment: Interpretive Data Hemoglobin A1c ADA Interpretive Guidelines <7% Glycemia controlled >8% Hyperglycemia, additional action recommended Maureen Immunochemical Method Current interpretive data was last revised on 2016 Testing performed by: [facility], [address] [place] [address] ??? Estimated Average Glucose 02/28/2018 108 mg/dL Final Testing performed by: [facility], [address] [place] [address] ??? Sodium 02/28/2018 137 135 - 145 mmol/L Final ??? Potassium, pl 02/28/2018 4.0 3.5 - 5.1 mmol/L Final ??? Chloride 02/28/2018 99* 100 - 114 mmol/L Final ??? CO2 02/28/2018 27 22 - 32 mmol/L Final ??? Anion Gap 02/28/2018 15 8 - 16 mmol/L Final ??? BUN 02/28/2018 19 8 - 24 mg/dL Final ??? Creatinine 02/28/2018 0.74 0.60 - 1.30 mg/dL Final ??? Glucose 02/28/2018 85 70 - 199 mg/dL Final Comment: Interpretive [...] data was last revised 2017. ??? Calcium 02/28/2018 9.6 8.4 - 10.5 mg/dL Final ??? Bilirubin, total 02/28/2018 0.50 0.10 - 1.30 mg/dL Final ??? Protein, pl 02/28/2018 6.9 6.0 - 8.3 g/dL Final ??? Albumin 02/28/2018 3.3 3.2 - 4.8 g/dL Final ??? Alk phos 02/28/2018 115* 30 - 110 Units/L Final ??? ALT 02/28/2018 37 1 - 45 Units/L Final ??? AST 02/28/2018 25 7 - 40 Units/L Final ??? Cholesterol 02/28/2018 157 100 - 200 mg/dL Final Comment: Interpretive Data Desirable: <200 mg/dL Borderline high: 200-239 mg/dL High: >240 mg/dL Current interpretive data was last revised on 2016. ??? Triglycerides 02/28/2018 107 10 - 150 mg/dL Final Comment: Interpretive Data Desirable: < 150 mg/dL Borderline High: 150 - 199 mg/dL High: 200 - 499 mg/dL Very High: > or = 499 mg/dL Current interpretive data was last revised on 2016. ??? HDL 02/28/2018 69* 40 - 59 mg/dL Final Comment: Interpretive Data Less than 40 mg/dL - Low; A major risk factor for heart disease. Greater than or equal to 60 mg/dL - High; Considered protective of heart disease. Current interpretive data was last revised on 2016. ??? LDL, calculated 02/28/2018 67 60 - 129 mg/dL Final Comment: Interpretive Data Optimal: < 100 mg/dL Near Optimal: 100 - 129 mg/dL Borderline High: 130 - 159 mg/dL High: > 160 mg/dL Current interpretive data was last revised on 2016. ??? Chol/HDL ratio 02/28/2018 2 mg/dL Final ??? GFR 02/28/2018 82 mL/min/1.73 m2 Final Comment: Interpretive Data Reference Interval Normal >/= 90 mL/min/1.73m2 Mildly decreased* 60 - 89 mL/min/1.73m2 Mildly to moderately decreased 45 - 59 mL/min/1.73m2 Moderately to severely decreased 30 - 44 mL/min/1.73m2 Severely decreased 15 - 29 mL/min/1.73m2 Kidney Failure < 15 mL/min/1.73m2 *Relative to young adult level If -Kyrgyz multiply value by 1.16. Estimated glomerular filtration [...] of recurrent major depressive disorder (CMS/HCC) (Primary) Assessment & Plan: meds working and cont for now Benign hypertension Assessment & Plan: The bp stil up and add aldactone [...] bp. Orders: - Basic metabolic panel; Future Chronic pain syndrome Assessment & Plan: Hydrocodone muting pain and uses 4 a contreras al the time.aware of drug linmits. Tolerance. Chronic stasis dermatitis Assessment & Plan: [facility] Mild persistent asthma without complication Assessment & Plan: Asthma is the excess production of secretions [...] regularly bid. Cont meds. Fall flu shtos Vitamin D deficiency Assessment & Plan: Off d . Reports upset [place]umack. Will check onreturn and see if still low off meds Orders: - Vitamin D 25 hydroxy; Future Bilateral impacted cerumen Assessment & Plan: r ear flushed and substantial wx removed. Seems to hear bdetter. l ear with wax but as big deal to fo r will not do l Until an issue. Other orders - irbesartan (AVAPRO) 300 mg tablet; Take 1 tablet (300 mg total) by mouth daily. - hydroCHLOROthiazide (HYDRODIURIL) 25 mg tablet; Take 1 tablet (25 mg total) by mouth daily. - fluticasone (FLONASE) 50 mcg/actuation nasal spray; Administer 2 sprays into each nostril daily. - FLUoxetine (PROzac) 20 mg tablet; Take 1 tablet (20 mg total) by mouth daily. - dilTIAZem XR (CARDIZEM CD,DILACOR XR) 240 mg 24 hr capsule; Take 1 capsule (240 mg total) by mouth daily. - albuterol HFA (PROAIR HFA) 90 mcg/actuation inhaler; Inhale 2 puffs every 4 (four) hours as needed for wheezing (every 4 to 6 hours as needed). - fluticasone-salmeterol (ADVAIR DISKUS) 250-50 mcg/dose diskus inhaler; Inhale 1 puff 2 (two) times a day. Rinse mouth with water after use to reduce aftertaste and incidence of candidiasis. Do not swallow. - spironolactone (ALDACTONE) 25 mg tablet; Take 1 tablet (25 mg total) by mouth daily. Side effects, risks, interactions reviewed with patient. [...] Plan Note - Breanna Espana MD - 03/14/2018 10:42 AM CDT Associated Problem(s): Bilateral impacted cerumen (Resolved 06/28/2018) r ear flushed and substantial wx removed. Seems to hear bdetter. l ear with wax but as big deal to fo r will not do l Until an issue. * Assessment & Plan Note - Breanna Espana MD - 03/14/2018 10:21 AM CDT Associated Problem(s): Vitamin D deficiency Off d . Reports upset stumack. Will check onreturn and see if still low off meds * Assessment & Plan Note - Breanna Espana MD - 03/14/2018 10:17 AM CDT Associated Problem(s): Mild persistent asthma without complication Asthma is the excess production of secretions [...] regularly bid. Cont meds. Fall flu shtos * Assessment & Plan Note - Breanna Espana MD - 03/14/2018 10:16 AM CDT Associated Problem(s): Moderate episode of recurrent major depressive disorder (HCC) (Resolved 10/24/2018) meds working and cont for now * Assessment & Plan Note - Breanna Espana MD - 03/14/2018 10:16 AM CDT Associated Problem(s): Chronic stasis dermatitis Back to [facility]. eval for help * Addendum Note - Breanna Espana MD - 03/14/2018 10:15 AM CDTAddended by: BREANNA ESPANA on: 03/14/2018 11:56 AM Modules accepted: Orders * Assessment & Plan Note - Breanna Espana MD - 03/14/2018 10:09 AM CDT Associated Problem(s): Benign hypertension The bp stil up and add aldactone [...] Plan Note - Breanna Espana MD - 03/14/2018 10:08 AM CDT Associated Problem(s): Chronic pain syndrome Hydrocodone muting pain and uses 4 a contreras al the time.aware of drug linmits. Tolerance. documented in this encounter Plan of Treatment Not on file documented as of this encounter Results * Vitamin D 25 hydroxy (03/14/2018 10:56 AM CDT) Vitamin D 25-OH 30 30 - 80 ng/mL [facility] Blood specimen (specimen) 03/14/2018 10:56 AM CDT 03/14/2018 4:09 PM CDT Narrative [facility] - 03/14/2018 8:29 PM CDT us Breanna Espana MD LAB BLOOD ORDERABLE S Final Result [facility] [id number] Department [place] [address] * (ABNORMAL) Basic metabolic panel (03/14/2018 10:56 AM CDT) Sodium 138 135 - 145 mmol/L [facility] Potassium, pl 3.6 3.5 - 5.1 mmol/L [facility] Chloride 102 100 - 114 mmol/L [facility] CO2 29 22 - 32 mmol/L [facility] Anion gap 11 8 - 16 mmol/L [facility] BUN 25(H) 8 - 24 mg/dL [facility] Creatinine 0.70 0.60 - 1.30 mg/dL [facility] Glucose 110 70 - 199 mg/dL [facility] Comment: Interpretive Data Fasting glucose >/= 126 [...] 2017. Calcium 10.1 8.4 - 10.5 mg/dL [facility] Blood specimen (specimen) 03/14/2018 10:56 AM CDT 03/14/2018 4:09 PM CDT Narrative [facility] - 03/14/2018 4:42 PM CDT us Breanna Espana MD LAB BLOOD ORDERABLE S Final Result [facility] [id number] Department [place] [address] documented in this encounter Visit Diagnoses Diagnosis Moderate episode of recurrent major depressive disorder (HCC)- Primary Benign hypertension Essential hypertension, benign Chronic pain syndrome Chronic stasis dermatitis Mild persistent asthma without complication Vitamin D deficiency Bilateral impacted cerumen Impacted cerumen Vitamin D deficiency Benign hypertension Essential hypertension, benign documented in this encounter Discontinued Medications Medication Sig Discontinue Reason Start Date End Da te irbesartan (AVAPRO) 300 mg tablet TAKE 1 TABLET(300 MG) BY MOUTH DAILY Reorder 11/28/2017 03/14/2018 hydroCHLOROthiazide (HYDRODIURIL) 25 mg tablet TAKE 1 TABLET BY MOUTH EVERY DAY Reorder 06/06/2017 03/14/2018 fluticasone (FLONASE) 50 mcg/actuation nasal spray INSTILL 2 SPRAYS IN EACH NOSTRIL EVERY DAY Reorder 10/17/2017 03/14/2018 FLUoxetine (PROzac) 20 mg tablet Take 1 tablet (20 mg total) by mouth daily. Reorder 12/05/2017 03/14/2018 dilTIAZem XR (CARDIZEM CD,DILACOR XR) 240 mg 24 hr capsule Take 1 capsule (240 mg total) by mouth daily. Reorder 03/03/2018 03/14/2018 albuterol HFA (PROAIR HFA) 90 mcg/actuation inhaler Inhale 2 puffs every 4 (four) hours as needed for wheezing (every 4 to 6 hours as needed). Reorder 12/23/2017 03/14/2018 ADVAIR DISKUS 250-50 mcg/dose diskus inhaler INHALE 1 PUFF BY MOUTH TWICE DAILY Reorder 12/23/2017 03/14/2018 albuterol HFA (PROAIR HFA) 90 mcg/actuation inhaler Inhale 2 puffs every 4 (four) hours as needed for wheezing (every 4 to 6 hours as needed). 03/14/2018 03/14/2018 documented as of this encounter Care Teams Policy Advisor Relationship Specialty Start Date End Date Breanna Espana MD PCP - General 10/29/16 03/14/22 documented as of this encounter
--- OUTSIDE RECORDS SUMMARY | 2024-08-13 05:24 | XMS_ITS | Encounter Summary ---
Author Organization [facility] Address [address] [place] [address] Care Team Providers Care Steam Table Worker Name Role Phone Jarvis Boston MD Primary Care [facility] Encounter Details Date Type Department Care Team (Late st Contact Info) Description 01/05/2018 2:00 PM CDT Lab [facility] [address] [place] [address] [address] [place] [phone] Benign hypertension Social History Tobacco Use Types Packs/Day Years Used Date Smoking Tobacco: Never Smokeless Tobacco: Never Alcohol Use Standard Drinks/Week Comments Yes 0 (1 standard drink = 0.6 oz pur e alcohol) Comments Unknown Sex and Gender Information Value Date Recorded Sex Assigned at Not on file Legal Sex Female 11:52 PM FILLER IN Gender Identity Female 09/15/2022 2:42 PM FILLER IN Sexual Orientation Straight 09/15/2022 2: 42 PM FILLER IN documented as of this encounter Plan of Treatment Not on file documented as of this encounter Visit Diagnoses Diagnosis Benign hypertension Essential hypertension, benign documented in this encounter Care Teams Steam Table Worker Relationship Specialty Start Date End Date Jarvis Boston MD PCP - General 10/29/16 03/14/22 documented as of this encounter
--- OUTSIDE RECORDS SUMMARY | 2024-08-13 05:24 | XMS_ITS | Encounter Summary ---
Author Organization [facility] Address [address] [place] [address] Care Team Providers Care Auto Tune Up Mechanic Name Role Phone Jarvis Boston MD Primary Care Provi [facility] Encounter Details Date Type Department Care Team (Late st Contact Info) Description 01/05/2018 Orders Only [facility] [address] [place] [address] Cayetano Chawla PA [address] [facility] [address] [place], [place] [id number] Essential hypertension (Primary Dx) Social History Tobacco Use Types Packs/Day Years Used Date Smoking Tobacco: Never Smokeless Tobacco: Never Alcohol Use Standard Drinks/Week Comments Yes 0 (1 standard drink = 0.6 oz pur e alcohol) Comments Unknown Sex and Gender Information Value Date Recorded Sex Assigned at Not on file Legal Sex Female 11:52 PM COLORER HIDES AND SKINS Gender Identity Female 09/15/2022 2:42 PM COLORER HIDES AND SKINS Sexual Orientation Straight 09/15/2022 2: 42 PM COLORER HIDES AND SKINS documented as of this encounter Plan of Treatment Not on file documented as of this encounter Results * Basic metabolic panel (01/05/2018 7:54 PM CDT) Sodium 138 135 - 145 mmol/L [facility] Potassium, pl 3.7 3.5 - 5.1 mmol/L [facility] Chloride 102 100 - 114 mmol/L [facility] CO2 28 22 - 32 mmol/L [facility] BUN 24 8 - 24 mg/dL [facility] Glucose 109 70 - 199 mg/dL [facility] Comment: Interpretive Data Fasting glucose >/= [...] 2017. Creatinine 0.76 0.60 - 1.30 mg/dL [facility] Calcium 9.9 8.4 - 10.5 mg/dL [facility] Anion gap 12 8 - 16 mmol/L [facility] Blood specimen (specimen) 01/05/2018 7:54 PM CDT 01/05/2018 7:54 PM CDT Narrative [facility] - 01/05/2018 8:12 PM CDT Cayetano BROWNING LAB BLOOD ORDERABLES Fi nal Result [facility] [address] Department [place] [address] documented in this encounter Visit Diagnoses Diagnosis Essential hypertension- Primary Unspecified essential hypertension Essential hypertension Unspecified essential hypertension documented in this encounter Care Teams Auto Tune Up Mechanic Relationship Specialty Start Date End Date Jarvis Boston MD PCP - General 10/29/16 03/14/22 documented as of this encounter
--- OUTSIDE RECORDS SUMMARY | 2024-08-13 05:24 | XMS_ITS | Encounter Summary ---
Author Organization [facility] Address [address] [place] [address] Care Team Providers Care Flat Knitter Helper Name Role Phone Jarvis Boston MD [facility] Encounter Details Date Type Department Care Team (Late st Contact Info) Description 03/14/2018 Orders Only [facility] [address] [address] [facility] [address] [place] [address] Cayetano Chawla PA [address] [facility] [address] [place] [address] Social History Tobacco Use Types Packs/Day Years Used Date Smoking Tobacco: Never Smokeless Tobacco: Never Alcohol Use Standard Drinks/Week Comments Yes 0 (1 standard drink = 0.6 oz pur e alcohol) Comments Unknown Sex and Gender Information Value Date Recorded Sex Assigned at Not on file Legal Sex Female 11:52 PM TRANSACTION PROCESSOR Gender Identity Female 09/15/2022 2:42 PM TRANSACTION PROCESSOR Sexual Orientation Straight 09/15/2022 2: 42 PM TRANSACTION PROCESSOR documented as of this encounter Plan of Treatment Not on file documented as of this encounter Visit Diagnoses Not on filedocumented in this encounter Care Teams Flat Knitter Helper Relationship Specialty Start Date End Date Jarvis Boston MD PCP - General 10/29/16 03/14/22 documented as of this encounter
--- OUTSIDE RECORDS SUMMARY | 2024-08-13 05:24 | XMS_ITS | Encounter Summary ---
Author Organization [facility] Medical Group Address [address] [place] [address] Care Team Providers Care Lead C Developer Name Role Phone Jarvis Boston MD Primary Care Provi [facility] Encounter Details Date Type Department Care Team (Late st Contact Info) Description 10/17/2018 Telephone [facility] [address] [place] [address] [address] [place] [address] Jarvis Boston MD [address] [place] [address] Social History Tobacco Use Types Packs/Day Years Used Date Smoking Tobacco: Never Smokeless Tobacco: Never Alcohol Use Standard Drinks/Week Comments Yes 0 (1 standard drink = 0.6 oz pur e alcohol) Comments Unknown Sex and Gender Information Value Date Recorded Sex Assigned at Not on file Legal Sex Female 11:52 PM ROUTE DELIVERY MANAGER Gender Identity Female 09/15/2022 2:42 PM ROUTE DELIVERY MANAGER Sexual Orientation Straight 09/15/2022 2: 42 PM ROUTE DELIVERY MANAGER documented as of this encounter Miscellaneous Notes * Telephone Encounter - Annie Colorado MA - 10/17/2018 8:14 AM CDT JW * Telephone Encounter - Heaven Werner CLT - 10/17/2018 8:08 AM CDT Lab no show 10-10-18 pt will call back; 10-12-18 letter sent; Next ov 10-24-18 documented in this encounter Plan of Treatment Not on file documented as of this encounter Visit Diagnoses Not on filedocumented in this encounter Care Teams Lead C Developer Relationship Specialty Start Date End Date Jarvis Boston MD PCP - General 10/29/16 03/14/22 documented as of this encounter
--- OUTSIDE RECORDS SUMMARY | 2024-08-13 05:25 | XMS_ITS | Encounter Summary ---
Author Organization [facility] Healthcare Address [address] [place] [address] Care Team Providers Care Cutting And Printing Machine Operator Name Role Phone Jarvis Boston MD Primary Care Provi [facility] Encounter Details Date Type Department Care Team (Late st Contact Info) Description 04/08/2016 10:22 AM CDT - 04/08/2016 11:59 PM CDT Hospital Encounter [facility] Ag Early MD [address] [place] [address] [address] Calculus of kidney; Calculus of gallbladder without cholecystitis without obstruction; Diverticulosis of large intestine without perforation or abscess without bleeding; Abnormal findings on diagnostic imaging of other parts of digestive tract; Benign neoplasm of left adrenal gland; Leiomyoma of uterus; Fatty (change of) liver, not elsewhere classified; Umbilical hernia without obstruction or gangrene; Benign essential microscopic hematuria Social History Tobacco Use Types Packs/Day Years Used Date Smoking Tobacco: Never Alcohol Use Standard Drinks/Week Comments Yes 0 (1 standard drink = 0.6 oz pur e alcohol) Comments Unknown Sex and Gender Information Value Date Recorded Sex Assigned at Not on file Legal Sex Female 11:52 PM ISOTOPE TECHNICIAN Gender Identity Female 09/15/2022 2:42 PM ISOTOPE TECHNICIAN Sexual Orientation Straight 09/15/2022 2: 42 PM ISOTOPE TECHNICIAN documented as of this encounter Medications at Time of Discharge dilTIAZem XR (CARDIZEM CD) 240 mg 24 hr capsule TAKE 1 CAPSULE BY MOUTH ONCE DAILY 90 3 08/03/2007 08/24/2017 estradiol (ESTRACE) 1 mg tablet take 1 tablet by oral route every day 0 0 01/28/2015 01/05/2018 fluticasone (FLONASE) 50 mcg/actuation nasal spray INSTILL 2 SPRAYS IN EACH NOTRIL EVERY DAY 16 spray 11 08/03/2007 09/11/2017 fluticasone-salme terol (ADVAIR DISKUS) 250-50 mcg/dose diskus inhaler USE 1 PUFF TWO TIMES A DAY. 90 3 07/26/2007 12/22/2017 hydroCHLOROthiazi de (HYDRODIURIL) 25 mg tablet TAKE ONE BY MOUTH ONE TIME PER DAY 90 3 08/03/2007 06/05/2017 HYDROcodone-aceta minophen (NORCO) 5-325 mg per tablet take 1 tablet by oral route every 6 hours as needed for pain 120 0 01/28/2015 01/25/2017 irbesartan (AVAPRO) 300 mg tablet TAKE 1 TABLET BY MOUTH EVERY DAY 30 11 08/03/2007 01/03/2017 medroxyPROGESTERo ne (PROVERA) 5 mg tablet take 1 tablet by oral route every day 0 0 03/10/2016 01/05/2018 documented as of this encounter Plan of Treatment Not on file documented as of this encounter Procedures Procedure Name Priority Date/Time Associated Diagnosis Comments DISCHARGE LABORATORY CUMULATIVE REPORT 04/09/2016 UROGRAM W WO KUB W WO TOMOGRAM Routine 04/08/2016 12:00 PM CDT SERUM CREATININE Routine 04/08/2016 10:3 3 AM CDT documented in this encounter Results * DISCHARGE LABORATORY CUMULATIVE REPORT (04/09/2016) Narrative 04/09/2016 Ordered by an unspecified provider. us Historical Provider LAB BLOOD ORDERABLES Lisa l Result * XR Urogram W WO Kub W WO Tomogram (04/08/2016 12:00 PM CDT) Anatomical Region Laterality Modality Body, Abdomen N/A Radiographic Samira ging 04/08/2016 12:0 0 PM CDT Narrative 04/08/2016 11:[address] IVP Urogram W/WO [id number] ??Acc#: ??[id number] DATE OF EXAM: ??Apr ??2015 CLINICAL HISTORY: Microscopic hematuria. RESULT: Helical CT scan of the abdomen and pelvis obtained without and with intravenous contrast. 100 mL Optiray 320. Images from lung bases to the ischia tuberosities. No prior study available for comparison. Very small calculus lower pole left kidney, nonobstructing. Small calculus lower pole right kidney, nonobstructing. No hydronephrosis or hydroureter. No ureteral calculus is evident. Calculus within the gallbladder measures 2.7 cm. No calculus within the urinary bladder identified. Aggregate calcifications within the myometrium anterior aspect of the uterine fundus supporting calcified uterine fibroid. Calcification in the pelvis representing phleboliths. Diverticulosis particular distal descending and sigmoid colon. Some minimal stranding supporting some inflammatory change suggesting some change of diverticulitis. No fluid collection identified. Liver is fairly homogeneous. Calculus within the gallbladder. No pericholecystic fluid or inflammation identified. Spleen size within the normal range. No pancreatic mass identified. A nodular focus contiguous with the left adrenal demonstrates adipose density, supporting adenoma. This measures 18 mm. Another nodular focus is seen involving the posterior aspect of the uterus on the left, supporting fibroid. This measures 2 cm. Degenerative changes of lumbar spine with spurring. Degenerative disc disease particularly L5-S1. Some minimal atelectasis/scarring primarily lung bases. Also noted is a prominent umbilical hernia containing only adipose tissue, with a transverse dimension of 7.6 cm. Somewhat diminished attenuation of the liver parenchyma supports hepatic steatosis. IMPRESSION: 1. ??SMALL INTRARENAL CALCULI OF THE KIDNEYS, NONOBSTRUCTING. NO HYDRONEPHROSIS OR HYDROURETER. NO BLADDER CALCULUS IDENTIFIED. 2. ??CHOLELITHIASIS WITH A SINGLE STONE IDENTIFIED. NO PERICHOLECYSTIC FLUID OR INFLAMMATION IDENTIFIED. 3. ??DIVERTICULOSIS MOST PROMINENTLY INVOLVING DISTAL DESCENDING AND SIGMOID COLON. SUGGESTION OF SOME MINIMAL INFLAMMATORY CHANGE, POSSIBLE DIVERTICULITIS. 4. 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 5. ??EVIDENCE OF FIBROIDS OF THE UTERUS. 6. ??EVIDENCE OF HEPATIC STEATOSIS. 7. ??LARGE UMBILICAL HERNIA CONTAINING ONLY ADIPOSE TISSUE. PRELIMINARY REPORT FAXED TO DR. Denton CARDENAS ON 04/08/16 AT 3:25 P.M. Interpreting Physician: ??FREDERICK GARCÍA M.D. ??Read on: ??Sep ??2015 12:35P Transcribed by: ??TXD ??On: Sep ??8 2016 ??3:25P Approved Electronically by: ??FREDERICK GARCÍA M.D. ??on: ??Sep ??2015 11:11P Attending: ??AG CARDENAS Requesting: ??AG CARDENAS Requesting Fax: ??-- Attending Fax: ??-- Attending ID: ??[id number] Requesting ID: ??[id number] Report To 1 ID: ??[id number] Report To 1 Name: ??AG CARDENAS Report To 1 FAX: ??-- NextGen Order #: Procedure Note Provider, MD Maryuri - 11/25/[address] IVP Urogram W/WO [id number] Acc#: [id number] DATE OF EXAM: Apr 08 2016 CLINICAL HISTORY: Microscopic hematuria. RESULT: Helical CT scan of the abdomen and pelvis obtained without and withintravenous contrast. 100 mL Optiray 320. Images from lung bases to theischia tuberosities. No prior study available for comparison. Very smallcalculus lower pole left kidney, nonobstructing. Small calculus lower poleright kidney, nonobstructing. No hydronephrosis or hydroureter. Noureteral calculus is evident. Calculus within the gallbladder measures 2.7cm. No calculus within the urinary bladder identified. Aggregatecalcifications within the myometrium anterior aspect of the uterine fundussupporting calcified uterine fibroid. Calcification in the pelvisrepresenting phleboliths. Diverticulosis particular distal descending andsigmoid colon. Some minimal stranding supporting some inflammatory changesuggesting some change of diverticulitis. No fluid collection identified.Liver is fairly homogeneous. Calculus within the gallbladder. Nopericholecystic fluid or inflammation identified. Spleen size within the normal range. No pancreatic mass identified. A nodular focus contiguouswith the left adrenal demonstrates adipose density, supporting adenoma.This measures 18 mm. Another nodular focus is seen involving the posterioraspect of the uterus on the left, supporting fibroid. This measures 2 cm.Degenerative changes of lumbar spine with spurring. Degenerative discdisease particularly L5-S1. Some minimal atelectasis/scarring primarilylung bases. Also noted is a prominent umbilical hernia containing onlyadipose tissue, with a transverse dimension of 7.6 cm. Somewhat diminishedattenuation of the liver parenchyma supports hepatic steatosis. IMPRESSION: 1. SMALL INTRARENAL CALCULI OF THE KIDNEYS, NONOBSTRUCTING. NOHYDRONEPHROSIS OR HYDROURETER. NO BLADDER CALCULUS IDENTIFIED. 2. CHOLELITHIASIS WITH A SINGLE STONE IDENTIFIED. NO PERICHOLECYSTICFLUID OR INFLAMMATION IDENTIFIED. 3. DIVERTICULOSIS MOST PROMINENTLY INVOLVING DISTAL DESCENDING ANDSIGMOID COLON. SUGGESTION OF SOME MINIMAL INFLAMMATORY CHANGE, POSSIBLEDIVERTICULITIS. 4. A 1.8 CM LEFT ADRENAL ADENOMA. 5. EVIDENCE OF FIBROIDS OF THE UTERUS. 6. EVIDENCE OF HEPATIC STEATOSIS. 7. LARGE UMBILICAL HERNIA CONTAINING ONLY ADIPOSE TISSUE. PRELIMINARYREPORT FAXED TO DR. Denton CARDENAS ON 04/08/16 AT 3:25 P.M. Interpreting Physician: FREDERICK GARCÍA M.D. Read on: Apr 08 2016 12:35P Transcribed by: THANIA On: Apr 08 2016 3:25P Approved Electronically by: FREDERICK GARCÍA M.D. on: Apr 08 2016 11:11P Attending: AG CARDENAS Requesting: AG CARDENAS Requesting Fax: -- Attending Fax: -- Attending ID: [id number] Requesting ID: [id number] Report To 1 ID: [id number] Report To 1 Name: AG CARDENAS Report To 1 FAX: -- NextGen Order #: us Historical Provider IMYajaira FLUOROSCOPY PROCEDURE S Final Result * Serum creatinine (04/08/2016 10:33 AM CDT) Creatinine, bld 0.62 0.60 - 1.30 mg/dl CDR HISTORICAL RESULTS Serum 04/08/2016 10:3 3 AM CDT Ag Cardenas MD LAB BLOOD ORDERABLE S Final Result CDR HISTORICAL RESULTS documented in this encounter Visit Diagnoses Diagnosis Calculus of kidney Calculus of gallbladder without cholecystitis without obstruction Diverticulosis of large intestine without perforation or abscess without bleeding Abnormal findings on diagnostic imaging of other parts of digestive tract Benign neoplasm of left adrenal gland Leiomyoma of uterus Leiomyoma of uterus, unspecified Fatty (change of) liver, not elsewhere classified Umbilical hernia without obstruction or gangrene Umbilical hernia without mention of obstruction or gangrene Benign essential microscopic hematuria documented in this encounter Care Teams Cutting And Printing Machine Operator Relationship Specialty Start Date End Date Jarvis Boston MD PCP - General 07/05/09 05/13/16 documented as of this encounter
--- OUTSIDE RECORDS SUMMARY | 2024-08-13 05:25 | XMS_ITS | Encounter Summary ---
Author Organization [facility] Healthcare Address [address] [place] [address] Care Team Providers Care Lower School Spanish Teacher Name Role Phone Jarvis Boston MD Primary Care Provi [facility] Encounter Details Date Type Department Care Team (Late st Contact Info) Description 02/25/2016 9:02 AM CDT - 02/25/2016 11:59 PM T Hospital Encounter [facility] Jarvis Boston MD [address] [place] [address] Vitamin D deficiency; Essential (primary) hypertension; Impaired glucose tolerance Social History Tobacco Use Types Packs/Day Years Used Date Smoking Tobacco: Never Alcohol Use Standard Drinks/Week Comments Yes 0 (1 standard drink = 0.6 oz pur e alcohol) Comments Unknown Sex and Gender Information Value Date Recorded Sex Assigned at Not on file Legal Sex Female 11:52 PM CHILD AND YOUTH PROGRAM ASSISTANT Gender Identity Female 09/15/2022 2:42 PM CHILD AND YOUTH PROGRAM ASSISTANT Sexual Orientation Straight 09/15/2022 2: 42 PM CHILD AND YOUTH PROGRAM ASSISTANT documented as of this encounter Medications at [...] MOUTH EVERY DAY 30 11 08/03/2007 01/03/2017 documented as of this encounter Plan of Treatment Not on file documented as of this encounter Procedures Procedure Name Priority Date/Time Associated Diagnosis Comments URINE MICROBIOLOGY Routine 02/25/2016 12 :00 AM CDT documented in this encounter Results * Urine Microbiology (02/25/2016 12:00 AM CDT) 02/25/2016 Narrative CDR HISTORICAL RESULTS - 02/26/2016 4:45 PM CDT [facility] ?Patient Name: ?PEBBLES JUAREZ ?Med. Rec#: ?? [id number] ?Pt. Acct.#: ??[id number] ?Birthdate: ?? 1945 ?Age / Sex: ?? 70Y / F ?Location: ?[facility] (Laborato ?Admit Date: ??02/23/2016 ?Discharge Date: ? 02/23/2016 ?Doctor: ?Patient Type: ?CH Ancillary - Insur Culture, Urine ? Collected: 02/25/2016 08:59 Specimen: Urine ?? Specimen Source: Clean Voided Specimen Status: Final ??Last Update: 02/26/2016 09:10 Organism ?? Greater than 100,000 cfu/ml of ?? multiple Gram positive organisms Organism ?? Less than 10,000 cfu/ml of ?? Gram negative bacilli Comment ? This culture result is consistent with contamination ?? by normal genital-perineal louis. us Historical Provider LAB MICROBIOLOGY - GENERA L ORDERABLES Final Result CDR HISTORICAL RESULTS documented in this encounter Visit Diagnoses Diagnosis Vitamin D deficiency Essential (primary) hypertension Unspecified essential hypertension Impaired glucose tolerance Impaired glucose tolerance test documented in this encounter Care Teams Lower School Spanish Teacher Relationship Specialty Start Date End Date Jarvis Boston MD PCP - General 07/05/09 05/13/16 documented as of this encounter
--- OUTSIDE RECORDS SUMMARY | 2024-08-13 05:25 | XMS_ITS | Encounter Summary ---
Author Organization [facility] Medical Group Address [address] [place] [address] Care Team Providers Care Account Administrator Name Role Phone Jarvis Boston MD Primary Care Provi evelyne Reason for Visit * Reason Comments Asthma Encounter Details Date Type Department Care Team (Late st Contact Info) Description 12/05/2017 3:00 PM CDT Office Visit [facility] [address] [place] [address] [address] [place] [phone] Jarvis Boston MD [address] [place] [address] Chronic stasis dermatitis (Primary Dx); Chronic pain syndrome; Hormone replacement therapy; Benign hypertension; Moderate episode of recurrent major depressive disorder (CMS/HCC) Social History Tobacco Use Types Packs/Day Years Used Date Smoking Tobacco: Never Smokeless Tobacco: Never Alcohol Use Standard Drinks/Week Comments Yes 0 (1 standard drink = 0.6 oz pur e alcohol) Comments Unknown Sex and Gender Information Value Date Recorded Sex Assigned at Not on file Legal Sex Female 11:52 PM HOIST CYLINDER LOADER Gender Identity Female 09/15/2022 2:42 PM HOIST CYLINDER LOADER Sexual Orientation Straight 09/15/2022 2: 42 PM HOIST CYLINDER LOADER documented as of this encounter Last Filed Vital Signs Vital Sign Reading Time Taken Comments Blood Pressure 128/74 12/05/2017 3:17 PM CDT Pulse 78 12/05/2017 3:17 PM CDT Temperature - - Respiratory Rate 18 12/05/2017 3:17 PM CDT Oxygen Saturation - - Inhaled Oxygen Concentration - - Weight - - Height - - Body Mass Index - - documented in this encounter Ordered Prescriptions Prescription Sig Dispense Quantity Refills Last Filled Start Date End Date FLUoxetine (PROzac) 20 mg tablet Take 1 tablet (20 mg total) by mouth daily. 30 tablet 5 12/05/2017 03/14/2018 FLUoxetine (PROzac) 20 mg tablet Take 1 tablet (20 mg total) by mouth daily. 30 tablet 5 12/05/2017 12/05/2017 documented in this encounter Progress Notes * Jarvis Boston MD - 12/05/2017 3:00 PM CDT Subjective/Objective Patient ID: Lupis Juarez is a 72 y.o. female. Chief Complaint Asthma Leg sweellig. Chronic pain. Wheel chair bound. [id number] Review of Systems Constitutional: Negative. HENT: Negative for congestion, ear pain, facial swelling, hearing loss, mouth sores, nosebleeds, postnasal drip, rhinorrhea, sinus pressure, sneezing, sore throat, tinnitus, trouble swallowing and voice change. Eyes: Negative. Respiratory: Negative. Cardiovascular: Negative. Gastrointestinal: Negative. Endocrine: Negative. Genitourinary: Negative for decreased urine volume, difficulty urinating, dysuria, flank pain, frequency, genital sores, hematuria and urgency. Nocturia negative Musculoskeletal: Negative. Foot pain, knee/s Skin: Negative for skin lesions Negative for puritis Negative for hives Neurological: Negative. Hematological: Negative. Psychiatric/Behavioral: Negative. So depressed. Vitals: 12/05/17 1517 BP: 128/74 Pulse: 78 Resp: 18 Physical Exam Constitutional: She is oriented to person, place, and time. She appears well- developed and well-nourished. HENT: Head: Normocephalic and atraumatic. Eyes: EOM are normal. Pupils are equal, round, and reactive to light. Neck: Normal range of motion. Neck supple. Cardiovascular: Normal rate and regular rhythm. Pulmonary/Chest: Effort normal and breath sounds normal. Abdominal: Soft. Bowel sounds are normal. Musculoskeletal: Normal range of motion. Neurological: She is alert and oriented to person, place, and time. Skin: Skin is warm and dry. Lower leg swelling and r lowwer leeg swelled. Red. Chronic buildup. And tissue changes Psychiatric: She has a normal mood and affect. Her behavior is normal. Judgment and thought contentnormal. No visits with results within 1 Month(s) from this visit. Latest known visit with results is: Office Visit on 03/15/2017 Component Date Value Ref Range Status ??? HM Mammogram 01/24/2012 Normal Final ??? HM Colonoscopy 03/28/2013 Abnormal Final ??? DEXA Scan 01/24/2012 Normal Final .1 Assessment/Plan Diagnoses and all orders for this visit: Chronic stasis dermatitis (Primary) Assessment & Plan: Referral to vein md /chronic edema. Orders: - Ambulatory referral to Vascular Surgery; Future Chronic pain syndrome Assessment & Plan: On hydrocodone and needs to li it to a script a month. Hormone replacement therapy Assessment & Plan: Has noted major hotflashes with out hormones and has apptn to see shellfish bed worker . Will see them and take overfor hormonies Benign hypertension Assessment & Plan: .bp well controled to high nl on top and not takingthe hctz . But intermittently does.so maybe not restart as eessentiall not taking ex cept with pain. Moderate episode of recurrent major depressive disorder (CMS/HCC) Assessment & Plan: strrt prozac 20 qwith 1/2 rthe first week then 1 a day. Reassess 1month Other orders - FLUoxetine (PROzac) 20 mg tablet; Take 1 tablet (20 mg total) by mouth daily. Side effects, [...] Plan Note - Jarvis Boston MD - 12/05/2017 3:35 PM CDT Associated Problem(s): Moderate episode of recurrent major depressive disorder (HCC) (Resolved 10/24/2018) strrt prozac 20 qwith 1/2 rthe first week then 1 a day. Reassess 1month * Assessment & Plan Note - Jarvis Boston MD - 12/05/2017 3:29 PM CDT Associated Problem(s): Benign hypertension .bp well controled to high nl on top and not takingthe hctz . But intermittently does.so maybe not restart as eessentiall not taking ex cept with pain. * Assessment & Plan Note - Jarvis Boston MD - 12/05/2017 3:27 PM CDT Associated Problem(s): Hormone replacement therapy (Resolved 03/14/2018) Has noted major hotflashes with out hormones and has apptn to see shellfish bed worker . Will see them and take overfor hormonies * Assessment & Plan Note - Jarvis Boston MD - 12/05/2017 3:24 PM CDT Associated Problem(s): Chronic pain syndrome On hydrocodone and needs to li it to a script a month. * Assessment & Plan Note - Jarvis Boston MD - 12/05/2017 3:24 PM CDT Associated Problem(s): Chronic stasis dermatitis Referral to vein md /chronic edema. documented in this encounter Plan of Treatment Not on file documented as of this encounter Visit Diagnoses Diagnosis Chronic stasis dermatitis- Primary Chronic pain syndrome Hormone replacement therapy Benign hypertension Essential hypertension, benign Moderate episode of recurrent major depressive disorder (HCC) documented in this encounter Discontinued Medications Medication Sig Discontinue Reason Start Date End Da te FLUoxetine (PROzac) 20 mg tablet Take 1 tablet (20 mg total) by mouth daily. 12/05/2017 12/05/2017 documented as of this encounter Care Teams Account Administrator Relationship Specialty Start Date End Date Jarvis Boston MD PCP - General 10/29/16 03/14/22 documented as of this encounter
--- OUTSIDE RECORDS SUMMARY | 2024-08-13 05:25 | XMS_ITS | Encounter Summary ---
Author Organization [facility] Medical Group Address [address] [place] [address] Care Team Providers Care Electroneurodiagnostic Technician Name Role Phone Jarvis Boston MD Primary Care Provi [facility] Encounter Details Date Type Department Care Team (Late st Contact Info) Description 03/01/2017 8:30 AM CDT Lab [facility] [address] [place] [address] [address] [place] [address] Benign hypertension Social History Tobacco Use Types Packs/Day Years Used Date Smoking Tobacco: Never Alcohol Use Standard Drinks/Week Comments Yes 0 (1 standard drink = 0.6 oz pur e alcohol) Comments Unknown Sex and Gender Information Value Date Recorded Sex Assigned at Not on file Legal Sex Female 11:52 PM TRAFFIC LIEUTENANT Gender Identity Female 09/15/2022 2:42 PM TRAFFIC LIEUTENANT Sexual Orientation Straight 09/15/2022 2: 42 PM TRAFFIC LIEUTENANT documented as of this encounter Plan of Treatment Not on file documented as of this encounter Visit Diagnoses Diagnosis Benign hypertension Essential hypertension, benign documented in this encounter Care Teams Electroneurodiagnostic Technician Relationship Specialty Start Date End Date Jarvis Boston MD PCP - General 10/29/16 03/14/22 documented as of this encounter
--- OUTSIDE RECORDS SUMMARY | 2024-08-13 05:25 | XMS_ITS | Encounter Summary ---
Author Organization [facility] Address [address] [place] [address] Care Team Providers Care Pet House Sitter Name Role Phone Jarvis Boston MD Primary Care Provi [facility] Encounter Details Date Type Department Care Team (Late st Contact Info) Description 12/07/2017 Telephone [facility] [address] [place] [address] [address] [place] [address] Jarvis Boston MD [address] [place] [address] Social History Tobacco Use Types Packs/Day Years Used Date Smoking Tobacco: Never Smokeless Tobacco: Never Alcohol Use Standard Drinks/Week Comments Yes 0 (1 standard drink = 0.6 oz pur e alcohol) Comments Unknown Sex and Gender Information Value Date Recorded Sex Assigned at Not on file Legal Sex Female 11:52 PM SUPERVISOR COAL HANDLING Gender Identity Female 09/15/2022 2:42 PM SUPERVISOR COAL HANDLING Sexual Orientation Straight 09/15/2022 2: 42 PM SUPERVISOR COAL HANDLING documented as of this encounter Miscellaneous Notes * Telephone Encounter - Yovani Deras MA - 12/08/2017 8:20 AM CDT noted * Telephone Encounter - Bethany Bustamante MA - 12/07/2017 12:44 PM CDT To Yovani * Telephone Encounter - Jarvis Boston MD - 12/07/2017 12:37 PM CDT cancel * Telephone Encounter - Yovani Deras MA - 12/07/2017 9:27 AM CDT Tracking from [facility] order for mammogram from 09/01/16, pt has been reminded several times, ov 12/05 was noted to WILLY. Ws this done? Cancel or continue tracking Please advise documented in this encounter Plan of Treatment Not on file documented as of this encounter Visit Diagnoses Not on filedocumented in this encounter Care Teams Pet House Sitter Relationship Specialty Start Date End Date Jarvis Boston MD PCP - General 10/29/16 03/14/22 documented as of this encounter
--- OUTSIDE RECORDS SUMMARY | 2024-08-13 05:25 | XMS_ITS | Encounter Summary ---
Author Organization [facility] Healthcare Address [address] [place] [address] Care Team Providers Care Prison Guard Supervisor Name Role Phone Jarvis Boston MD Primary Care Provi [facility] Encounter Details Date Type Department Care Team (Late st Contact Info) Description 02/04/2007 7:40 AM CDT - 02/04/2007 8:20 AM CDT Hospital Encounter [facility] Yonatan Corcoran [address] [place], [place] [id number] Jarvis Boston MD [address] [place] [address] Social History Tobacco Use Types Packs/Day Years Used Date Smoking Tobacco: Never Assessed Comments Unknown Sex and Gender Information Value Date Recorded Sex Assigned at Not on file Legal Sex Female 11:52 PM NURSERY TEACHER Gender Identity Female 09/15/2022 2:42 PM NURSERY TEACHER Sexual Orientation Straight 09/15/2022 2: 42 PM NURSERY TEACHER documented as of this encounter Plan of Treatment Not on file documented as of this encounter Visit Diagnoses Not on filedocumented in this encounter Care Teams Prison Guard Supervisor Relationship Specialty Start Date End Date Jarvis Boston MD PCP - General 10/03/06 02/06/07 documented as of this encounter
--- OUTSIDE RECORDS SUMMARY | 2024-08-13 05:25 | XMS_ITS | Encounter Summary ---
Author Organization [facility] Healthcare Address [address] [place] [address] Care Team Providers Care Plaster Caster Name Role Phone Jarvis Boston MD Primary Care Provi [facility] Encounter Details Date Type Department Care Team (Late st Contact Info) Description 08/21/2015 9:16 AM DIRECTOR ELECTRICAL ENGINEERING - 08/21/2015 11:59 PM DIRECTOR ELECTRICAL ENGINEERING Hospital Encounter [facility] CLINCONJ[facility]vis Phelps MD [address] [place] [address] Vitamin D deficiency; Essential (primary) hypertension; Impaired glucose tolerance Social History Tobacco Use Types Packs/Day Years Used Date Smoking Tobacco: Never Alcohol Use Standard Drinks/Week Comments Yes 0 (1 standard drink = 0.6 oz pur e alcohol) Comments Unknown Sex and Gender Information Value Date Recorded Sex Assigned at Not on file Legal Sex Female 11:52 PM DIRECTOR ELECTRICAL ENGINEERING Gender Identity Female 09/15/2022 2:42 PM DIRECTOR ELECTRICAL ENGINEERING Sexual Orientation Straight 09/15/2022 2: 42 PM DIRECTOR ELECTRICAL ENGINEERING documented as of this encounter Medications at [...] as of this encounter Visit Diagnoses Diagnosis Vitamin D deficiency Essential (primary) hypertension Unspecified essential hypertension Impaired glucose tolerance Impaired glucose tolerance test documented in this encounter Care Teams Plaster Caster Relationship Specialty Start Date End Date Jarvis Boston MD PCP - General 07/05/09 05/13/16 documented as of this encounter
--- OUTSIDE RECORDS SUMMARY | 2024-08-13 05:25 | XMS_ITS | Encounter Summary ---
Author Organization [facility] Healthcare Address [address] [place] [address] Care Team Providers Care Freight Car Cleaner Delta System Name Role Phone Jarvis Boston MD Primary Care Provi [facility] Encounter Details Date Type Department Care Team (Late st Contact Info) Description 03/01/2017 1:10 PM CDT Lab [address] [address] Unspecified essential hypertension; Impaired glucose tolerance test Social History Tobacco Use Types Packs/Day Years Used Date Smoking Tobacco: Never Alcohol Use Standard Drinks/Week Comments Yes 0 (1 standard drink = 0.6 oz pur e alcohol) Comments Unknown Sex and Gender Information Value Date Recorded Sex Assigned at Not on file Legal Sex Female 11:52 PM BOWL ATTENDANT Gender Identity Female 09/15/2022 2:42 PM BOWL ATTENDANT Sexual Orientation Straight 09/15/2022 2: 42 PM BOWL ATTENDANT documented as of this encounter Plan of Treatment Not on file documented as of this encounter Procedures Procedure Name Priority Date/Time Associated Diagnosis Comments EGFR Routine 03/01/2017 8:52 AM CDT ALT Routine 03/01/2017 8:52 AM CDT Unspecified essential hypertension HEMOGLOBIN A1C Routine 03/01/2017 8:52 AM CDT Impaired glucose tolerance test LIPID PANEL Routine 03/01/2017 8:52 AM CDT Unspecified essential hypertension BASIC METABOLIC PANEL Routine 03/01/2017 8:52 AM CDT Unspecified essential hypertension documented in this encounter Results * eGFR (03/01/2017 8:52 AM CDT) eGFR 87 mL/min/1.7 3 m2 [facility] Comment: Interpretive Data Reference Interval Normal ?>/= 90 mL/min/1.73m2 Mildly decreased* ? 60 - 89 mL/min/1.73m2 Mildly to moderately decreased ?45 - 59 mL/min/1.73m2 Moderately to severely decreased ??30 - 44 mL/min/1.73m2 Severely decreased ?15 - 29 mL/min/1.73m2 Kidney Failure ?< 15 ??mL/min/1.73m2 *Relative to young adult level If -[place] multiply value by 1.16. Estimated glomerular filtration [...] was last reviewed 2016. Blood specimen (specimen) 03/01/2017 8:52 AM CDT 03/01/2017 2:14 PM CDT us Jarvis Boston MD LAB BLOOD ORDERABLE S Final Result [facility] [id number] Department [place] [address] * Hemoglobin A1c (03/01/2017 8:52 AM CDT) Hgb A1C 5.1 4.0 - 6.0 % [facility] Comment: Interpretive Data Hemoglobin A1c ADA Interpretive Guidelines ?? <7% ?? Glycemia controlled ?? >8% ?? Hyperglycemia, additional action recommended Maureen Immunochemical Method Current interpretive data was last revised on 2016 Testing performed by: [facility], [place] [address] Estimated Average Glucose 100 mg/dL [facility]ATE Comment:Testing performed by : [facility], [place] [address] Blood specimen (specimen) 03/01/2017 8:52 AM CDT 03/01/2017 5:59 PM CDT Jarvis Boston MD LAB BLOOD ORDERABLE S Final Result [facility] [id number] Department [place] [address] * (ABNORMAL) Lipid panel (03/01/2017 8:52 AM CDT) Cholesterol 181 100 - 200 mg/dL [facility] Comment:Interpretive Data De sirable: <200 mg/dL Borderline high: 200-239 mg/dL High: >240 mg/dL Current interpretive data was last revised on 2016. Triglycerides 119 10 - 150 mg/dL [facility] Comment:Interpretive Data De sirable: < 150 mg/dL Borderline High: 150 - 199 mg/dL High: 200 - 499 mg/dL Very High: > or = 499 mg/dL Current interpretive data was last revised on 2016. HDL 62(H) 40 - 59 mg/dL [facility] Comment:Interpretive Data Le ss than 40 mg/dL - Low; A major risk factor for heart disease. Greater than or equal to 60 mg/dL - High; Considered protective of heart disease. Current interpretive data was last revised on 2016. LDL, calculated 95 60 - 129 mg/dL [facility] Comment:Interpretive Data Op timal: < 100 mg/dL Near Optimal: 100 - 129 mg/dL Borderline High: 130 - 159 mg/dL High: > 160 mg/dL Current interpretive data was last revised on 2016. Non-HDL Cholesterol 119 mg/dL [facility] Comment:Interpretive Data Wh en triglycerides are >200 mg/dL, non-HDL C is a secondary target of therapy, with a goal 30 mg/dL higher than the identified LDL-C goal. Current interpretive data was last revised 2016. Blood specimen (specimen) 03/01/2017 8:52 AM CDT 03/01/2017 2:07 PM CDT Jarvis Boston MD LAB BLOOD ORDERABLE S Final Result [facility] [id number] Department [place] [address] * Basic metabolic panel (03/01/2017 8:52 AM CDT) Sodium 139 135 - 145 mmol/L [facility] Potassium, pl 3.6 3.5 - 5.1 mmol/L [facility] Chloride 104 100 - 114 mmol/L [facility] CO2 23 22 - 32 mmol/L [facility] BUN 15 8 - 24 mg/dL [facility] Glucose 101 70 - 199 mg/dL [facility] Creatinine 0.71 0.60 - 1.30 mg/dL [facility] Calcium 9.7 8.4 - 10.5 mg/dL [facility] Anion gap 16 8 - 16 mmol/L [facility] Blood specimen (specimen) 03/01/2017 8:52 AM CDT 03/01/2017 2:07 PM CDT Jarvis Boston MD LAB BLOOD ORDERABLE S Final Result [facility] [id number] [place] [address] * ALT (03/01/2017 8:52 AM CDT) ALT 12 1 - 45 Units/L [facility] Blood specimen (specimen) 03/01/2017 8:52 AM CDT 03/01/2017 2:07 PM CDT us Jarvis Boston MD LAB BLOOD ORDERABLE S Final Result Performing Organization Address City/State/ZIP [place] Phone Number [facility] [phone] Department [place] [address] documented in this encounter Visit Diagnoses Diagnosis Unspecified essential hypertension Impaired glucose tolerance test documented in this encounter Care Teams Freight Car Cleaner Delta System Relationship Specialty Start Date End Date Jarvis Boston MD PCP - General 10/29/16 03/14/22 documented as of this encounter
--- OUTSIDE RECORDS SUMMARY | 2024-08-13 05:25 | XMS_ITS | Encounter Summary ---
Author Organization [facility] Healthcare Address [address] [place] [address] Care Team Providers Care Hot Mill Supervisor Name Role Phone Jravis Boston MD Primary Care Provi [facility] Encounter Details Date Type Department Care Team (Late st Contact Info) Description 02/19/2015 8:52 AM CDT - 02/19/2015 11:59 PM CDT Hospital Encounter [facility] Jarvis Boston MD [address] [place] [address] Routine general medical examination at a health care facility; Vitamin D deficiency Social History Tobacco Use Types Packs/Day Years Used Date Smoking Tobacco: Never Alcohol Use Standard Drinks/Week Comments Yes 0 (1 standard drink = 0.6 oz pur e alcohol) Comments Unknown Sex and Gender Information Value Date Recorded Sex Assigned at Not on file Legal Sex Female 11:52 PM FABRIC WORKER Gender Identity Female 09/15/2022 2:42 PM FABRIC WORKER Sexual Orientation Straight 09/15/2022 2: 42 PM FABRIC WORKER documented as of this encounter Medications at [...] as of this encounter Visit Diagnoses Diagnosis Routine general medical examination at a health care facility Vitamin D deficiency documented in this encounter Care Teams Hot Mill Supervisor Relationship Specialty Start Date End Date Jarvis Boston MD PCP - General 07/05/09 05/13/16 documented as of this encounter
--- OUTSIDE RECORDS SUMMARY | 2024-08-13 05:25 | XMS_ITS | Encounter Summary ---
Author Organization [facility] Healthcare Address [address] [place] [address] Care Team Providers Care Telephone Sales Representative Name Role Phone Jarvis Boston MD Primary Care Provi [facility] Encounter Details Date Type Department Care Team (Late st Contact Info) Description 08/18/2016 8:14 AM BALLAST INSPECTOR - 08/18/2016 11:59 PM BALLAST INSPECTOR Hospital Encounter [facility] Jarvis Boston MD [address] [place] [address] Essential (primary) hypertension; Impaired glucose tolerance Social History Tobacco Use Types Packs/Day Years Used Date Smoking Tobacco: Never Alcohol Use Standard Drinks/Week Comments Yes 0 (1 standard drink = 0.6 oz pur e alcohol) Comments Unknown Sex and Gender Information Value Date Recorded Sex Assigned at Not on file Legal Sex Female 11:52 PM BALLAST INSPECTOR Gender Identity Female 09/15/2022 2:42 PM BALLAST INSPECTOR Sexual Orientation Straight 09/15/2022 2: 42 PM BALLAST INSPECTOR documented as of this encounter Medications at [...] Procedure Name Priority Date/Time Associated Diagnosis Comments SERUM LIPID PANEL Routine 08/18/2016 10: 07 AM BALLAST INSPECTOR SERUM ESTIMATED GLOMERULAR FILTRATION RATE Routine 08/18/2016 10:07 AM BALLAST INSPECTOR PLASMA COMPREHENSIVE METABOLIC PANEL Routine 08/18/2016 10:07 AM BALLAST INSPECTOR BLOOD HEMOGLOBIN A1C Routine 08/18/2016 10:07 AM BALLAST INSPECTOR DISCHARGE LABORATORY CUMULATIVE REPORT 08/18/2016 documented in this encounter Results * Plasma comprehensive metabolic panel (08/18/2016 10:07 AM BALLAST INSPECTOR) Sodium 139 135 - 145 mmol/L CDR HISTORICAL RESULTS K, pl 3.7 3.5 - 5.1 mmol/L CDR HISTORICAL RESULTS CO2 27 22 - 32 mmol/L CDR HISTORICAL RESULTS BUN 16 8 - 24 mg/dl CDR HISTORICAL RESULTS Glucose 94 70 - 199 mg/dl CDR HISTORICAL RESULTS Creatinine 0.69 0.60 - 1.30 mg/dl CDR HISTORICAL RESULTS Calcium 9.3 8.4 - 10.5 mg/dl CDR HISTORICAL RESULTS Chloride 105 100 - 114 mmol/L CDR HISTORICAL RESULTS Alb 3.4 3.2 - 4.8 g/dl CDR HISTORICAL RESULTS AST 10 7 - 40 Units/L CDR HISTORICAL RESULTS ALT 9 1 - 45 Units/L CDR HISTORICAL RESULTS Alk phos 101 30 - 110 Units/L CDR HISTORICAL RESULTS Bilirubin 0.40 0.10 - 1.30 mg/dl CDR HISTORICAL RESULTS Protein, pl 6.8 6.0 - 8.3 g/dl CDR HISTORICAL RESULTS A. gap 11 8 - 16 mmol/L CDR HISTORICAL RESULTS Plasma 08/18/2016 10:0 7 AM BALLAST INSPECTOR us Jarvis Boston MD LAB BLOOD ORDERABLE S Final Result CDR HISTORICAL RESULTS * Serum lipid panel (08/18/2016 10:07 AM BALLAST INSPECTOR) Cholesterol 167 100 - 200 mg/dl CDR HISTORICAL RESULTS Comment: Interpretive Data Desirable: ?<200 mg/dL Borderline high: ??200-239 mg/dL High: ? >240 mg/dL Current interpretive data was last revised on 2016. Triglycerides 93 10 - 150 mg/dl CDR HISTORICAL RESULTS Comment: Interpretive Data Desirable: ? < 150 ? mg/dL Borderline High: ? 150 - 199 mg/dL High: ?200 - 499 mg/dL Very High: ? > or = 499 ??mg/dL Current interpretive data was last revised on 2016. HDL 59 40 - 59 mg/dl CDR HISTORICAL RESULTS Comment: Interpretive Data Less than 40 mg/dL - Low; A major risk factor for heart disease. Greater than or equal to 60 mg/dL - High; ??Considered protective of heart disease. Current interpretive data was last revised on 2016. LDL 89 60 - 129 mg/dl CDR HISTORICAL RESULTS Comment: Interpretive Data Optimal: ? < 100 mg/dL Near Optimal: ?100 - 129 mg/dL Borderline High: ?? 130 - 159 mg/dL High: ?> 160 mg/dL Current interpretive data was last revised on 2016. Non-HDL cholesterol, calculated 3 mg/dl CDR HISTORICAL RESULTS Serum 08/18/2016 10:0 7 AM BALLAST INSPECTOR us Jarvis Boston MD LAB BLOOD ORDERABLE S Final Result CDR HISTORICAL RESULTS * Serum estimated glomerular filtration rate (08/18/2016 10:07 AM BALLAST INSPECTOR) eGFR 89 ml/min/1.7 3 m2 CDR HISTORICAL RESULTS Comment: Interpretive Data Reference Interval Normal ?>/= 90 mL/min/1.73m2 Mildly decreased* ? 60 - 89 mL/min/1.73m2 Mildly to moderately decreased ?45 - 59 mL/min/1.73m2 Moderately to severely decreased ??30 - 44 mL/min/1.73m2 Severely decreased ?15 - 29 mL/min/1.73m2 Kidney Failure ?< 15 ??mL/min/1.73m2 *Relative to young adult level If -[place]er multiply value by 1.16. Estimated glomerular filtration [...] Current interpretive data was last reviewed 2016. Serum 08/18/2016 10:0 7 AM BALLAST INSPECTOR us Jarvis Boston MD LAB BLOOD ORDERABLE S Final Result Performing Organization Address [facility] Co de Phone Number CDR HISTORICAL RESULTS * Blood hemoglobin A1C (08/18/2016 10:07 AM BALLAST INSPECTOR) Hgb A1C 5.3 4.0 - 6.0 % CDR HISTORICAL RESULTS Comment: Interpretive Data Hemoglobin A1c ADA Interpretive Guidelines ??<7% ?? Glycemia controlled ??>8% ?? Hyperglycemia, additional action recommended Maureen Immunochemical Method Current interpretive data was last revised on 2016 Testing performed by [facility], [place] [address] Estimated average glucose 105 mg/dl CDR HISTORICAL RESULTS Comment:Testing performed by [facility], [place] [address] Blood specimen (specimen) 08/18/2016 10:07 AM BALLAST INSPECTOR Jarvis Boston MD LAB BLOOD ORDERABLE S Final Result Performing Organization Address [facility] de Phone Number CDR HISTORICAL RESULTS * DISCHARGE LABORATORY CUMULATIVE REPORT (08/18/2016) Narrative 08/18/2016 Ordered by an unspecified provider. Historical Provider LAB BLOOD ORDERABLES Lisa l Result documented in this encounter Visit Diagnoses Diagnosis Essential (primary) hypertension Unspecified essential hypertension Impaired glucose tolerance Impaired glucose tolerance test documented in this encounter Care Teams Telephone Sales Representative Relationship Specialty Start Date End Date Jarvis Boston MD PCP - General 05/14/16 10/28/16 documented as of this encounter
--- OUTSIDE RECORDS SUMMARY | 2024-08-13 05:25 | XMS_ITS | Encounter Summary ---
Author Organization [facility] Healthcare Address [address] [place] [address] Care Team Providers Care Senior Automation Engineer Name Role Phone Breanna Espana MD Primary Care Provi [facility] Encounter Details Date Type Department Care Team (Late st Contact Info) Description 06/15/2013 11:08 AM PETROL TANKER DRIVER - 06/15/2013 11:59 PM PETROL TANKER DRIVER Hospital Encounter [facility] Breanna Quiroz MD [address] [place] [address] Undiagnosed cardiac murmurs Social History Tobacco Use Types Packs/Day Years Used Date Smoking Tobacco: Never Alcohol Use Standard Drinks/Week Comments Yes 0 (1 standard drink = 0.6 oz pur e alcohol) Comments Unknown Sex and Gender Information Value Date Recorded Sex Assigned at Not on file Legal Sex Female 11:52 PM PETROL TANKER DRIVER Gender Identity Female 09/15/2022 2:42 PM PETROL TANKER DRIVER Sexual Orientation Straight 09/15/2022 2: 42 PM PETROL TANKER DRIVER documented as of this encounter Medications at Time of Discharge dilTIAZem XR (CARDIZEM CD) 240 mg 24 hr capsule TAKE 1 CAPSULE BY MOUTH ONCE DAILY 90 3 08/03/2007 08/24/2017 fluticasone (FLONASE) 50 mcg/actuation nasal spray INSTILL 2 SPRAYS IN EACH NOTRIL EVERY DAY 16 spray 11 08/03/2007 09/11/2017 fluticasone-salme terol (ADVAIR DISKUS) 250-50 mcg/dose diskus inhaler USE 1 PUFF TWO TIMES A DAY. 90 3 07/26/2007 12/22/2017 hydroCHLOROthiazi de (HYDRODIURIL) 25 mg tablet TAKE ONE BY MOUTH ONE TIME PER DAY 90 3 08/03/2007 06/05/2017 irbesartan (AVAPRO) 300 mg tablet TAKE 1 TABLET BY MOUTH EVERY DAY 30 11 08/03/2007 01/03/2017 documented as of this encounter Plan of Treatment Not on file documented as of this encounter Procedures Procedure Name Priority Date/Time Associated Diagnosis Comments TRANSESOPHAGEAL ECHO (SOPHIE) W DOPPLER/CF WO CONTRAST Routine 06/15/2013 2:09 PM PETROL TANKER DRIVER documented in this encounter Results * Transesophageal Echocardiogram (SOPHIE) Complete (06/15/2013 2:09 PM PETROL TANKER DRIVER) Anatomical Region Laterality Modality Ultrasound 06/15/2013 2:09 PM PETROL TANKER DRIVER Narrative 06/19/2013 9:25 AM PETROL TANKER DRIVER ECHO CMPLT W DOPP WO CONT ??Acc#: ??[id number] DATE OF EXAM: ??Jun 15 2013 CLINICAL HISTORY: Cardiac murmurs. RESULT: IMPRESSION: ECHOCARDIOGRAM REPORT 2D/M-MODE FINDINGS: 1. Normal left ventricular size, thickness and systolic function. Estimated ejection fraction 65-70%. 2. Mitral leaflet excursion normal. 3. Aortic leaflet excursion normal. 4. Tricuspid leaflet excursion normal with poorly visible pulmonary valve. 5. Normal right heart size and right ventricular systolic function. 6. No pericardial effusion. 7. Inferior vena cava is normal. COLOR AND DOPPLER FINDINGS: 1. E to A wave reversal on transmitral Doppler suggesting mild diastolic dysfunction. 2. Trace mitral regurgitation. 3. Aortic valve forward velocity is within normal limits. 4. Normal pulmonary Doppler. 5. Mild tricuspid regurgitation of no hemodynamic significance. Interpreting Physician: ??DR DEBBIE QUAN M.D. ??Read on: ??Jun 15 2013 2:35P Transcribed by: ??mrr ??On: Jun 15 2013 ??2:35P Approved Electronically by: ??AVELINA Gutiérrez, DR DEBBIE Bonilla ??on: ??Jun 19 2013 9:25A Ordering DR: DR BREANNA ESPANA Attending DR: DR BREANNA ESPANA Procedure Note Provider, MD Maryuri - 11/25/2016 ECHO CMPLT W DOPP WO CONT Acc#: [id number] DATE OF EXAM: Jun 15 2013 CLINICAL HISTORY: Cardiac murmurs. RESULT: IMPRESSION: ECHOCARDIOGRAM REPORT 2D/M-MODE FINDINGS: 1. Normal left ventricular size, thickness and systolic function.Estimated ejection fraction 65-70%. 2. Mitral leaflet excursion normal. 3. Aortic leaflet excursion normal. 4. Tricuspid leaflet excursion normal with poorly visible pulmonaryvalve. 5. Normal right heart size and right ventricular systolic function. 6. No pericardial effusion. 7. Inferior vena cava is normal. COLOR AND DOPPLER FINDINGS: 1. E to A wave reversal on transmitral Doppler suggesting mild diastolicdysfunction. 2. Trace mitral regurgitation. 3. Aortic valve forward velocity is within normal limits. 4. Normal pulmonary Doppler. 5. Mild tricuspid regurgitation of no hemodynamic significance. Interpreting Physician: DR DEBBIE QUAN M.D. Read on: Jun 15 20132:35P Transcribed by: gene On: Jun 15 2013 2:35P Approved Electronically by: AVELINA Gutiérrez, DR DEBBIE Bonilla on: Jun 19 20139:25A Ordering DR: DR BREANNA ESPANA Attending DR: DR BREANNA ESPANA Historical Provider MD VILLAGR[facility] ECHO PROCEDURES Final Result documented in this encounter Visit Diagnoses Diagnosis Undiagnosed cardiac murmurs documented in this encounter Care Teams Senior Automation Engineer Relationship Specialty Start Date End Date Breanna Espana MD PCP - General 07/05/09 05/13/16 documented as of this encounter
--- OUTSIDE RECORDS SUMMARY | 2024-08-13 05:25 | XMS_ITS | Encounter Summary ---
Author Organization [facility] Healthcare Address [address] [place] [address] Care Team Providers Care Greeter Guest Services Name Role Phone Jarvis Boston MD Primary Care Provi evelyne Encounter Details Date Type Department Care Team (Late st Contact Info) Description 12/13/2014 11:54 AM CDT - 12/13/2014 2:27 PM CDT Hospital Encounter [facility] Maicol Cox MD 1 [facility] [address] [place] [address] Dizziness and giddiness; Backache; Asthma; Essential hypertension Social History Tobacco Use Types Packs/Day Years Used Date Smoking Tobacco: Never Alcohol Use Standard Drinks/Week Comments Yes 0 (1 standard drink = 0.6 oz pur e alcohol) Comments Unknown Sex and Gender Information Value Date Recorded Sex Assigned at Not on file Legal Sex Female 11:52 PM LIME TRIMMER Gender Identity Female 09/15/2022 2:42 PM LIME TRIMMER Sexual Orientation Straight 09/15/2022 2: 42 PM LIME TRIMMER documented as of this encounter Medications at [...] Name Priority Date/Time Associated Diagnosis Comments URINE MICROSCOPY Routine 12/13/2014 1:20 PM CDT URINALYSIS Routine 12/13/2014 1:20 PM CDT XR SPINE LUMBAR ROUTINE Routine 12/14/19 1:13 PM CDT SERUM COMPREHENSIVE METABOLIC PANEL Routine 12/13/2014 12:40 PM CDT BLOOD WBC CELL MORPHOLOGIC EXAM, AUTO Routine 12/13/2014 12:40 PM CDT BLOOD CELL COUNT (CBC) Routine 5 12:40 PM CDT ELECTROCARDIOGRAPHY (ECG) 12/13/2014 DISCHARGE LABORATORY CUMULATIVE REPORT Routine 12/13/2014 12:00 AM CDT documented in this encounter Results * (ABNORMAL) Urinalysis (12/13/2014 1:20 PM CDT) Color, ur YELLOW YELLOW HISTORICAL RESULTS Clarity, ur CLEAR CLEAR HISTORIC AL RESULTS Specific gravity, ur 1.013 1.003 - 1.030 gu HISTORICAL RESULTS Leukocyte esterase, ur Negative NEGATIVE HISTORICAL RESULTS Nitrites, ur Negative NEGATIVE HISTORI LILY RESULTS pH, ur 6.5 6.0 HISTORICAL RESULTS Protein, ur Negative NEGATIVE HISTORIC AL RESULTS Glucose, ur Negative NEGATIVE HISTORIC AL RESULTS Ketones, ur Negative NEGATIVE HISTORIC AL RESULTS Urobilinogen, quant, ur 0.2 0.2 - 1.0 mg/dl HISTORICAL RESULTS Bilirubin, ur Negative NEGATIVE HISTOR ICAL RESULTS U Blood Trace(A) NEGATIVE HISTORICAL RESULTS Urine 12/13/2014 1:20 PM CDT Maicol Roman MD LAB BLOOD ORDERABLES Final Res ult Performing Organization Address [facility] de Phone Number HISTORICAL RESULTS * (ABNORMAL) Urine microscopy (12/13/2014 1:20 PM CDT) WBC, ur 0 - 2 0 - 2 /hpf HISTORICA L RESULTS RBC, ur 2 - 5(A) 0 - 5 /hpf HISTORICA L RESULTS Epithelial cells, ur 0 - 2 0 - 2 /hpf HISTORICAL RESULTS Bacteria, ur Negative NEGATIVE /hpf HISTORICAL RESULTS Hyaline casts 0 - 2 0 - 4 /lpf HISTO RICAL RESULTS Crystals, ur Negative NEGATIVE HISTORI LILY RESULTS Yeast, ur Negative NEGATIVE HISTORICAL RESULTS Pathological casts, ur Negative NEGATIVE HISTORICAL RESULTS Urine 12/13/2014 1:20 PM CDT Maicol Roman MD LAB BLOOD ORDERABLES Final Res ult Performing Organization Address [facility] de Phone Number HISTORICAL RESULTS * XR Lumbar Spine Routine (12/13/2014 1:13 PM CDT) Anatomical Region Laterality Modality L-spine N/A Radiographic Samira ging 12/13/2014 1:13 PM CDT Narrative 12/13/2014 4:42 PM CDT XR Lumbar Spine Routine ??[id number] ??Acc#: ??[id number] DATE OF EXAM: ??Dec 13 2014 CLINICAL HISTORY: Back pain. ??No specific injury. RESULT: AP, lateral and oblique views of the lumbar spine were obtained. On the AP radiograph, the patient's pelvis is mildly tilted and rotated. There is slight anterior spondylolisthesis of L4 relative to L5. ??There is advanced narrowing of the L5-S1 disc space with a degenerative disc present. ??Mild disc space narrowing is noted at L3-L4. ??Degenerative osteophytes are noted most pronounced at the L2 and L1 levels. ??There are mild diffuse facet degenerative changes as well. There is a rounded calcific density in the right upper quadrant concerning for a gallstone. IMPRESSION: 1. DEGENERATIVE CHANGES OF THE LUMBAR SPINE DESCRIBED ABOVE WITH NO LUMBAR COMPRESSION FRACTURE SEEN. 2. ROUNDED CALCIFICATION IN THE RIGHT UPPER QUADRANT CONCERNING FOR A GALLSTONE. Interpreting Physician: ??FRANC FERNANDEZ M.D. ??Read on: ??Dec 13 2014 ??2:01P Transcribed by: ??mrr ??On: Dec 13 2014 ??3:37P Approved Electronically by: ??FRANC FERNANDEZ M.D. ??on: ??Dec 13 2014 ??4:42P Attending: ??MAICOL ROMAN Requesting: ??MAICOL ROMAN Requesting Fax: ??-- Attending Fax: ??-- Attending ID: ??[id number] Requesting ID: ??[id number] Report To 1 ID: ??[id number] Report To 1 Name: ??MAICOL ROMAN Report To 1 FAX: ??-- NextGen Order #: Procedure Note Provider, MD Maryuri - 11/25/2016 XR Lumbar Spine Routine [id number] Acc#: [id number] DATE OF EXAM: Dec 13 2014 CLINICAL HISTORY: Back pain. No specific injury. RESULT: AP, lateral and oblique views of the lumbar spine were obtained. On theAP radiograph, the patient's pelvis is mildly tilted and rotated. There isslight anterior spondylolisthesis of L4 relative to L5. There is advancednarrowing of the L5-S1 disc space with a degenerative disc present. Milddisc space narrowing is noted at L3- L4. Degenerative osteophytes arenoted most pronounced at the L2 and L1 levels. There are mild diffusefacet degenerative changes as well. There is a rounded calcific density inthe right upper quadrant concerning for a gallstone. IMPRESSION: 1. DEGENERATIVE CHANGES OF THE LUMBAR SPINE DESCRIBED ABOVE WITH NOLUMBAR COMPRESSION FRACTURE SEEN. 2. ROUNDED CALCIFICATION IN THE RIGHT UPPER QUADRANT CONCERNING FOR AGALLSTONE. Interpreting Physician: FRANC FERNANDEZ M.D. Read on: Dec 13 2014 2:01P Transcribed by: mrr On: Dec 13 2014 3:37P Approved Electronically by: FRANC FERNANDEZ M.D. on: Dec 13 2014 4:42P Attending: MAICOL ROMAN Requesting: MAICOL ROMAN Requesting Fax: -- Attending Fax: -- Attending ID: [id number] Requesting ID: [id number] Report To 1 ID: [id number] Report To 1 Name: MAICOL ROMAN Report To 1 FAX: -- NextGen Order #: us Historical Provider IMG XR PROCEDURES Final R esult * (ABNORMAL) Blood cell count (CBC) (12/13/2014 12:40 PM CDT) WBC 9.7 4.0 - 10.5 K/cumm HISTORICAL RESULTS RBC 4.20 4.20 - 5.40 M/cumm HISTORICAL RESULTS Hgb 13.0 12.0 - 16.0 g/dl HISTORICAL RESULTS Hct 38.0 37.0 - 47.0 % HISTORICAL RESULTS MCV 90.5 77.0 - 97.0 fl HISTORICAL RESULTS MCH 31.0 23.0 - 34.0 pg HISTORICAL RESULTS MCHC 34.2 32.0 - 36.0 g/dl HISTORICAL RESULTS Rdw 14.6(H) 11.5 - 14.5 % HISTORICAL RESULTS Platelets 280 150 - 400 K/cumm HISTORICAL RESULTS MPV 9.3 7.4 - 10.4 fl HISTORICAL RESULTS Blood specimen (specimen) 12/13/2014 12:40 PM CDT Maicol Roman MD LAB BLOOD ORDERABLES Final Res ult HISTORICAL RESULTS * (ABNORMAL) Blood WBC cell morphologic exam, auto (12/13/2014 12:40 PM CDT) Lymphocytes 24.0(L) 25.0 - 33.0 % HISTORICAL RESULTS Monos 7.7 0.0 - 13.0 % HISTORICAL RESULTS Neutrophils 67.3 54.0 - 69.0 % HISTORICAL RESULTS Eosinophils 0.2 0.0 - 10.0 % HISTORICAL RESULTS Basophils 0.5 0.0 - 1.0 % HISTORICAL RESULTS Immature granulocytes 0.3 0.0 - 1.0 % HISTORICAL RESULTS Lymphocytes, abs 2.3 1.2 - 3.4 K/cumm HISTORICAL RESULTS Monocytes, absolute 0.8(L) 1.1 - 1.9 K/cumm HISTORICAL RESULTS Neutrophils, abs 6.5 1.4 - 6.5 K/cumm HISTORICAL RESULTS Eosinophils, abs 0.0 0.0 - 0.7 cells/cum m HISTORICAL RESULTS Basophils, abs 0.1 0.0 - 0.2 K/cumm HISTORICAL RESULTS Immature granulocyte, abs 0.0(H) 0.0 - 0.0 K/cumm HISTORICAL RESULTS Blood specimen (specimen) 12/13/2014 12:40 PM CDT us Maicol Roman MD LAB BLOOD ORDERABLES Final Res ult HISTORICAL RESULTS * (ABNORMAL) Serum comprehensive metabolic panel (12/13/2014 12:40 PM CDT) BUN 17.0 8.0 - 25.0 mg/dl HISTORICAL RESULTS Sodium 139 135 - 145 mmol/L HISTORICAL RESULTS Potassium, sr 3.9 3.5 - 5.1 mmol/L HISTORICAL RESULTS Chloride 103 97 - 110 mmol/L HISTORICAL RESULTS CO2 23 22 - 32 mmol/L HISTORICAL RESULTS Glucose 125 70 - 199 mg/dl HISTORICAL RESULTS Comment: Note:The glucose is assumed non fasting Fastin-99 mg/dl Random: 70-199 mg/dl Either a fasting glucose > 126 mg/dL or a random glucose > 200 mg/dL plus symptoms is diagnostic of diabetes when confirmed on another day. Fasting values > 100 mg/dl but < 125 mg/dL are diagnostic of impaired fasting glucose. Creatinine 0.70 0.60 - 1.10 mg/dl HISTORICAL RESULTS Comment: eGFR: >70 ml/min/1.73sq.m if non -Egyptian. eGFR: >70 ml/min/1.73sq.m if -Egyptian. AVE GFR for 60-69 yr. age group: ??85 ml/min/173sq.m Calculated using MDRD Equation BUN/creat ratio 24(H) 10 - 20 HIST ORICAL RESULTS A. gap 17(H) 8 - 16 mmol/L HISTORICAL RESULTS Protein, sr 6.9 6.2 - 8.2 g/dl HISTORICAL RESULTS Alb 3.9 3.6 - 5.0 g/dl HISTORICAL RESULTS Alb/glob ratio 1.3 1.1 - 1.8 HISTO RICAL RESULTS Calcium 9.3 8.6 - 10.2 mg/dl HISTORICAL RESULTS Bilirubin 0.3 0.1 - 1.2 mg/dl HISTORICAL RESULTS Alk phos 95 40 - 130 Units/L HISTORICAL RESULTS AST 9(L) 10 - 40 Units/L HISTORICAL RESULTS ALT 8 5 - 45 Units/L HISTORICAL RESULTS Serum 12/13/2014 12:4 0 PM CDT us Maicol Roman MD LAB BLOOD ORDERABLES Final Res ult HISTORICAL RESULTS * Discharge Laboratory Cumulative Report (12/13/2014 12:00 AM CDT) 12/13/2014 Narrative HISTORICAL RESULTS - 12/14/2014 2:46 AM CDT Patient No: [id number] ? [facility] Patient Name: PEBBLES JUAREZ ? [facility] Healthcare Age: 69 YRS ?: 1945 ?Sex:F ?[address] )[phone] ?? Adm Dt: 12/13/2014 ?[place], [place] ??[address] Created: 12/14/2014 ??0246 ?? Pt. Type: E ? Discharge Dt: 12/13/2014 ? Pathologists: Maritza Mcintyre MD Admit Attend MAICOL Cesar MD ? BLOOD CELL COUNTS ?Collection Date: ?15 ?Collection Time: ?1240 ? Ref Range: ?? Units: [4.00-10.50] /CMM ? WBC X 10^3 ?9.68 [4.20-5.40] ??/CMM ? RBC X 10^6 ?4.20 [12.0-16.0] ??G/DL ? HGB ? 13.0 [37.0-47.0] ??% ?HCT ? 38.0 [77.0-97.0] ??FL ? MCV ? 90.5 [23.0-34.0] ??PG ? MCH ? 31.0 [32.0-36.0] ??% ?MCHC ?34.2 [11.5-14.5] ??% ?RDW ? 14.6 H [150-400] ?? /CMM ? PLT X 10^3 ? 280 ?BLOOD CELL DIFFERENTIAL ?Collection Date: ?05/15/15 ?Collection Time: ?1240 ? Ref Range: ?? Units: [54.0-69.0] ??% ?NEUTROPHILS ? 67.3 [25.0-33.0] ??% ?LYMPHOCYTES ? 24.0 L [0.0-13.0] ??% ?MONOCYTES ?7.7 [0.0-10.0] ??% ?EOSINOPHILS ?0.2 [0.0-1.0] ?? % ?BASOPHILS ?0.5 ? /CMM ? A LYMPHOCYTE ? 2.3 [0.0-1.0] ?? % ?IMM GRAN % ? 0.3 [0.00-0.02] ??/CMM ? A IMM GRAN ?0.03 H [1.1-1.9] ?? /CMM ? A MONOCYTE ? 0.8 L [1.4-6.5] ?? /CMM ? A NEUTROPHIL ? 6.5 [0.0-0.7] ?? /CMM ? A EOSINOPHIL ? 0.0 [0.0-0.2] ?? /CMM ? A BASOPHIL ? 0.1 Footnotes and Symbols: L = Low, H = High ?? CONTINUED ?Page: ?? 1 Patient No: [id number] ? [facility] Patient Name: LUKASZ PEBBLES ? [facility] Age: 69 YRS ?: 1945 ?Sex:F ?[address] )[phone] ?? Adm Dt: 12/13/2014 ?[place], [place] ??[address] Created: 12/14/2014 ??0246 ?? Pt. Type: E ? Discharge Dt: 12/13/2014 ? Pathologists: Maritza Mcintyre MD Admit Attend Dr: MAICOL ROMAN MD ? GENERAL CHEMISTRY ?Collection Date: ?12/13/14 ?Collection Time: ?1240 ? Ref Range: ?? Units: [135-145] ?? MMOL/L ? SODIUM ? 139 [3.5-5.1] ?? MMOL/L ? POTASSIUM ?3.9 [97.0-110.0] MMOL/L ? CHLORIDE ? 103.0 [22.0-32.0] ??MMOL/L ? TOTAL CO2 ? 22.6 ?? [8-16] ?MMOL/L ? ANION GAP ? 17 H ??[70-199] ?? MG/DL ?GLUCOSE ?125 f [6.2-8.2] ?? G/DL ? TOTAL PROTEIN ?6.9 [3.6-5.0] ?? G/DL ? ALBUMIN ?3.9 [1.1-1.8] ?A/G RATIO ?1.3 [8.6-10.2] ??MG/DL ?CALCIUM ?9.3 [0.1-1.2] ?? MG/DL ?BILI TOTAL ? 0.3 ??[40-130] ?? U/L ?ALK PHOS ?95 ??[10-40] ?U/L ?AST(SGOT) ?9 Lf ?? [5-45] ?U/L ?ALT(SGPT) ?8 f [8.0-25.0] ??MG/DL ?BUN ? 17.0 ??[10-20] ? B/C RATIO ? 24 H Footnotes and Symbols: L = Low, H = High, f = Footnote GLUCOSE (09/11/14 -- Current) Note:The glucose is assumed non fasting Fastin-99 mg/dl Random: 70-199 mg/dl Either a fasting glucose > 126 mg/dL or a random glucose > 200 mg/dL plus symptoms is diagnostic of diabetes when confirmed on another day. Fasting values > 100 mg/dl but < 125 mg/dL are diagnostic of impaired fasting glucose. AST(SGOT) (12/13/13 -- Current) ALT(SGPT) (02/20/13 -- Current) ?? CONTINUED ?Page: ?? 2 Patient No: [id number] ? [facility] Patient Name: LUKASZ PEBBLES ? [facility] Healthcare Age: 69 YRS ?: 1945 ?Sex:F ?[address] )[phone] ?? Adm Dt: 12/13/2014 ?[place], [place] ??[address] Created: 12/14/2014 ??0246 ?? Pt. Type: E ? Discharge Dt: 12/13/2014 ? Pathologists: Maritza cMintyre MD Admit Attend Dr: MAICOL ROMAN MD ? GENERAL CHEMISTRY ?Collection Date: ?12/13/14 ?Collection Time: ?1240 ? Ref Range: ?? Units: [0.60-1.10] ??MG/DL ?CREATININE ?0.70 f ?12/13/14 1240 eGFR: >70 ml/min/1.73sq.m if non -Egyptian. eGFR: >70 ml/min/1.73sq.m if -Egyptian. AVE GFR for 60-69 yr. age group: ??85 ml/min/173sq.m Calculated using MDRD Equation FOOTNOTE ADDED ON ?? 12/13/14 ?? AT 1314 BY 999 ?URINALYSIS ?Collection Date: ?12/13/14 ?Collection Time: ?1320 ? Ref Range: ?? Units: [YELLOW] ? U COLOR ? YELLOW ??[CLEAR] ? U APPEARANCE ? CLEAR [1.003-1.030] ? U SPEC GRAVITY ? 1.013 [NEGATIVE] ?U LEUKO ESTRASE ? NEGATIVE [NEGATIVE] ?U NITRITE ? NEGATIVE ?? [6.0] ?U PH ? 6.5 [NEGATIVE] ?U PROTEIN ? NEGATIVE [NEGATIVE] ?U GLUCOSE ? NEGATIVE [NEGATIVE] ?U KETONES ? NEGATIVE [0.2- 1.0] ?UROBILINOGEN ? 0.2 [NEGATIVE] ?U BILIRUBIN ? NEGATIVE [NEGATIVE] ?U BLOOD ?TRACE * ?? [0-2] ?U WBC ?0-2 ?? [0-5] ?U RBC ?2-5 * ?? [0-2] ?U EPI CELLS ?0-2 Footnotes and Symbols: * = Abnormal, f = Footnote ?? CONTINUED ?Page: ?? 3 Patient No: [id number] ? [facility] Patient Name: PEBBLES JUAREZ ? [facility] Age: 69 YRS ?: 1945 ?Sex:F ?[address] )[phone] ?? Adm Dt: 12/13/2014 ?[place], [place] ??[address] Created: 12/14/2014 ??0246 ?? Pt. Type: E ? Discharge Dt: 12/13/2014 ? Pathologists: Maritza Mcintyre MD Admit Attend Dr: MAICOL ROMAN MD ?URINALYSIS ?Collection Date: ?15 ?Collection Time: ?1320 ? Ref Range: ?? Units: [NEGATIVE] ?U BACTERIA ?NEGATIVE ?U YEASTS ?NEGATIVE ?? [0-4] ?U HYALINE CASTS ?0-2 [NEGATIVE] ?U CRYSTALS ?NEGATIVE [NEGATIVE] ?U PATH CASTS ?NEGATIVE ?? END OF CHART ? Page: ?? 4 us Historical Provider MD LAB BLOOD ORDERABLES Lisa l Result HISTORICAL RESULTS * ELECTROCARDIOGRAPHY (ECG) (12/13/2014) Narrative 12/13/2014 Ordered by an unspecified provider. us Historical Provider ECG ORDERABLES Final Res ult documented in this encounter Visit Diagnoses Diagnosis Dizziness and giddiness Backache Unspecified backache Asthma Unspecified asthma Essential hypertension Unspecified essential hypertension documented in this encounter Care Teams Greeter Guest Services Relationship Specialty Start Date End Date Jarvis Boston MD PCP - General 07/05/09 05/13/16 documented as of this encounter
--- OUTSIDE RECORDS SUMMARY | 2024-08-13 05:25 | XMS_ITS | Encounter Summary ---
Author Organization [facility] Healthcare Address [address] [place] [address] Care Team Providers Care Husker Operator Name Role Phone Jarvis Boston MD Primary Care Provi [facility] Encounter Details Date Type Department Care Team (Late st Contact Info) Description 03/10/2016 3:23 PM CDT - 03/10/2016 11:59 PM CDT Hospital Encounter [facility] CLINCONV Jarvis Boston MD [address] [place] [address] Other microscopic hematuria Social History Tobacco Use Types Packs/Day Years Used Date Smoking Tobacco: Never Alcohol Use Standard Drinks/Week Comments Yes 0 (1 standard drink = 0.6 oz pur e alcohol) Comments Unknown Sex and Gender Information Value Date Recorded Sex Assigned at Not on file Legal Sex Female 11:52 PM MEAT WRAPPER Gender Identity Female 09/15/2022 2:42 PM MEAT WRAPPER Sexual Orientation Straight 09/15/2022 2: 42 PM MEAT WRAPPER documented as of this encounter Medications at [...] Date/Time Associated Diagnosis Comments URINE MICROBIOLOGY Routine 03/10/2016 12 :00 AM CDT documented in this encounter Results * Urine Microbiology (03/10/2016 12:00 AM CDT) 03/10/2016 Narrative CDR HISTORICAL RESULTS - 03/12/2016 5:10 PM CDT [facility] ?Patient Name: ?PEBBLES JUAREZ ?Med. Rec#: ?? [id number] ?Pt. Acct.#: ??[id number] ?Birthdate: ?? 1945 ?Age / Sex: ?? 70Y / F ?Location: ?[facility] (Laborato ?Admit Date: ??03/10/2016 ?Discharge Date: ? 03/10/2016 ?Doctor: ?Patient Type: ?CH Ref Lab - Insuran Culture, Urine ? Collected: 03/10/2016 15:25 Specimen: Urine ?? Specimen Source: Clean Voided Specimen Status: Final ??Last Update: 03/12/2016 10:05 Organism ?? 50,000 - 100,000 cfu/ml of ?? multiple Gram positive organisms Organism ?? Less than 10,000 cfu/ml of ?? Gram negative bacilli Comment ? This culture result is consistent with contamination ?? by normal genital-perineal louis. us Historical Provider LAB MICROBIOLOGY - GENERA L ORDERABLES Final Result CDR HISTORICAL RESULTS documented in this encounter Visit Diagnoses Diagnosis Other microscopic hematuria documented in this encounter Care Teams Husker Operator Relationship Specialty Start Date End Date Jarvis Boston MD PCP - General 07/05/09 05/13/16 documented as of this encounter
--- OUTSIDE RECORDS SUMMARY | 2024-08-13 05:25 | XMS_ITS | Encounter Summary ---
Author Organization [facility] Healthcare Address [address] [place] [address] Care Team Providers Care Transportation Department Head Name Role Phone Jarvis Boston MD Primary Care Provi [facility] Encounter Details Date Type Department Care Team (Latest Contact Info) Description 03/01/2017 8:52 AM CDT - 03/01/2017 11:59 PM CDT Hospital Encounter CH OP INTERIM Jarvis Boston MD [address] [place] [address] Discharge Disposition: Discharge to home or self care Social History Tobacco Use Types Packs/Day Years Used Date Smoking Tobacco: Never Alcohol Use Standard Drinks/Week Comments Yes 0 (1 standard drink = 0.6 oz pur e alcohol) Comments Unknown Sex and Gender Information Value Date Recorded Sex Assigned at Not on file Legal Sex Female 11:52 PM COOK HELPER DESSERT Gender Identity Female 09/15/2022 2:42 PM COOK HELPER DESSERT Sexual Orientation Straight 09/15/2022 2: 42 PM COOK HELPER DESSERT documented as of this encounter Medications at Time of Discharge albuterol HFA (PROAIR HFA) 90 mcg/actuation inhaler inhale 2 puff by inhalation route every 4 - 6 hours as needed 1 Inhaler 11 09/01/2016 8 dilTIAZem XR (CARDIZEM CD) 240 mg 24 hr capsule TAKE 1 CAPSULE BY MOUTH ONCE DAILY 90 3 08/03/2007 8 estradiol (ESTRACE) 1 mg tablet take 1 tablet by oral route every day 0 0 01/28/2015 8 fluticasone (FLONASE) 50 mcg/actuation nasal spray INSTILL 2 SPRAYS IN EACH NOTRIL EVERY DAY 16 spray 11 08/03/2007 8 fluticasone-salm eterol (ADVAIR DISKUS) 250-50 mcg/dose diskus inhaler USE 1 PUFF TWO TIMES A DAY. 90 3 07/26/2007 8 hydroCHLOROthiaz yesy (HYDRODIURIL) 25 mg tablet TAKE ONE BY MOUTH ONE TIME PER DAY 90 3 08/03/2007 7 HYDROcodone-acet aminophen (NORCO) 5-325 mg per tablet Take 1 tablet by mouth every 6 (six) hours as needed for pain Earliest Fill Date: 02/28/17. 120 tablet 02/28/2017 7 irbesartan (AVAPRO) 300 mg tablet Take 1 tablet (300 mg total) by mouth daily. 90 tablet 3 02/02/2017 8 medroxyPROGESTER one (PROVERA) 5 mg tablet take 1 tablet by oral route every day 0 0 03/10/2016 8 documented as of this encounter Discharge Disposition Disposition Code Departure Means Destination Discharge to home or self care documented in this encounter Plan of Treatment Not on file documented as of this encounter Procedures Procedure Name Priority Date/Time Associated Diagnosis Comments DISCHARGE LABORATORY CUMULATIVE REPORT 03/01/2017 12:00 AM CDT documented in this encounter Results * DISCHARGE LABORATORY CUMULATIVE REPORT (03/01/2017 12:00 AM CDT) Narrative 03/01/2017 12:00 AM CDT Ordered by an unspecified provider. us Historical Provider LAB BLOOD ORDERABLES Lisa l Result documented in this encounter Visit Diagnoses Not on filedocumented in this encounter Care Teams Transportation Department Head Relationship Specialty Start Date End Date Jarvis Boston MD PCP - General 10/29/16 03/14/22 documented as of this encounter
--- OUTSIDE RECORDS SUMMARY | 2024-08-13 05:25 | XMS_ITS | Encounter Summary ---
Author Organization [facility] Healthcare Address [address] [place] [address] Care Team Providers Care Senior Tax Specialist Name Role Phone Jarvis Boston MD Primary Care Provi [facility] Encounter Details Date Type Department Care Team (Late st Contact Info) Description 06/17/2014 10:40 AM SALT REFINER - 06/17/2014 11:59 PM SALT REFINER Hospital Encounter CH CLINCONV Jarvis Boston MD [address] [place] [address] Benign essential hypertension; Abnormal glucose tolerance test Social History Tobacco Use Types Packs/Day Years Used Date Smoking Tobacco: Never Alcohol Use Standard Drinks/Week Comments Yes 0 (1 standard drink = 0.6 oz pur e alcohol) Comments Unknown Sex and Gender Information Value Date Recorded Sex Assigned at Not on file Legal Sex Female 11:52 PM SALT REFINER Gender Identity Female 09/15/2022 2:42 PM SALT REFINER Sexual Orientation Straight 09/15/2022 2: 42 PM SALT REFINER documented as of this encounter Medications at [...] of this encounter Visit Diagnoses Diagnosis Benign essential hypertension Essential hypertension, benign Abnormal glucose tolerance test Impaired glucose tolerance test documented in this encounter Care Teams Senior Tax Specialist Relationship Specialty Start Date End Date Jarvis Boston MD PCP - General 07/05/09 05/13/16 documented as of this encounter
--- OUTSIDE RECORDS SUMMARY | 2024-08-13 05:25 | XMS_ITS | Encounter Summary ---
Author Organization [facility] Address [address] [place] [address] Care Team Providers Care Fire Prevention Officer Name Role Phone Jarvis Boston MD Primary Care Provi evelyne Reason for Visit * Reason Comments Medicare Wellness Encounter Details Date Type Department Care Team (Late st Contact Info) Description 03/15/2017 10:30 AM CDT Office Visit [facility] [address] [place] [address] [address] [place] [id number] Jarvis Boston MD [address] [place] [id number] BMI 50.0-59.9, adult (CMS/HCC) (Primary Dx); Morbid (severe) obesity due to excess calories (CMS/HCC); Mild intermittent asthma without complication; Benign hypertension; Chronic stasis dermatitis; Chronic pain syndrome; Encounter for Medicare annual wellness exam; Vitamin D deficiency Social History Tobacco Use Types Packs/Day Years Used Date Smoking Tobacco: Never Smokeless Tobacco: Never Alcohol Use Standard Drinks/Week Comments Yes 0 (1 standard drink = 0.6 oz pur e alcohol) Comments Unknown Sex and Gender Information Value Date Recorded Sex Assigned at Not on file Legal Sex Female 11:52 PM HEAD TRIMMER Gender Identity Female 09/15/2022 2:42 PM HEAD TRIMMER Sexual Orientation Straight 09/15/2022 2: 42 PM HEAD TRIMMER documented as of this encounter Last Filed Vital Signs Vital Sign Reading Time Taken Comments Blood Pressure 128/56 03/15/2017 10:57 AM CDT Pulse 84 03/15/2017 10:57 AM CDT Temperature - - Respiratory Rate 16 03/15/2017 10:57 AM CDT Oxygen Saturation - - Inhaled Oxygen Concentration - - Weight 135.2 kg (298 lb) 03/15/2017 10:28 AM CDT Height 158.8 cm (5' 2.5 ) 03/15/2017 10:28 AM CD T Body Mass Index 53.64 03/15/2017 10:28 AM CDT documented in this encounter Patient Instructions * Patient Instructions* Jarvis Boston MD - 03/15/2017 10:30 AM CDT Swelling in lower legs From the valves in the legs not wworking and the chronic dependency. Elevation audie help but not tolerant of. Pain meds working but as expected not working as long. The more theswelling controlled then less audie get up to urinate. ldl at 95 great and a1c nl at 5.1. Asthma stable and cont meds as on. Depression Screening rechecked with the more detailed screen and pased. Chronic pain main issue documented in this encounter Ordered Prescriptions Prescription Sig Dispense Quantity Refills Last Filled Start Date End Date HYDROcodone-acetam inophen (NORCO) 5-325 mg per tablet Take 1 tablet by mouth every 4 (four) hours as needed. 120 tablet 03/15/2017 03/28/2017 documented in this encounter Progress Notes * Jarvis Boston MD - 03/15/2017 10:30 AM CDT Subjective/Objective Patient ID: Lupis Juarez is a 71 y.o. female. Chief Complaint Medicare Wellness Feet limit from pain along with the knees Review of Systems Constitutional: Negative. HENT: Negative for congestion, ear pain, facial swelling, hearing loss, mouth sores, nosebleeds, postnasal drip, rhinorrhea, sinus pressure, sneezing, sore throat, tinnitus, trouble swallowing and voice change. Reading more of a chanllenge Eyes: Negative. Reads bigger font Respiratory: Positive for wheezing. Weekly use inhalers Cardiovascular: Positive for leg swelling. Gastrointestinal: Positive for diarrhea. Stable trend to get diarrhea Endocrine: Negative. Genitourinary: Negative for decreased urine volume, difficulty urinating, dysuria, flank pain, frequency, genital sores, hematuria and urgency. Nocturia negative Musculoskeletal: Positive for gait problem. Chronic pain on feet Skin: Negative. Negative for skin lesions Negative for puritis Negative for hives Allergic/Immunologic: Negative. Neurological: No numbness. No tingles. Hematological: Negative. Psychiatric/Behavioral: Negative. Physical Exam Constitutional: She is oriented to person, place, and time. She appears well- developed and well-nourished. No distress. bmi 53 HENT: Head: Normocephalic and atraumatic. Right Ear: External ear normal. Left Ear: External ear normal. Nose: Nose normal. Mouth/Throat: Oropharynx is clear and moist. Eyes: Conjunctivae and EOM are normal. Pupils are equal, round, and reactive to light. Right eye exhibits no discharge. Left eye exhibits no discharge. No scleral icterus. Neck: Normal range of motion. Neck supple. No JVD present. No tracheal deviation present. No thyromegaly present. Cardiovascular: Normal rate, regular rhythm, normal heart sounds and intact distal pulses. Exam reveals no gallop and no friction rub. No murmur heard. Pulmonary/Chest: Effort normal and breath sounds normal. No stridor. No respiratory distress. She has no wheezes. She has no rales. She exhibits no tenderness. Abdominal: Soft. Bowel sounds are normal. She exhibits no distension and no mass. There is no tenderness. There is no rebound and no guarding. No hernia. Musculoskeletal: Normal range of motion. She exhibits no edema, tenderness or deformity. Lymphadenopathy: She has no cervical adenopathy. Neurological: She is alert and oriented to person, place, and time. She has normal reflexes. She displays normal reflexes. No cranial nerve deficit. She exhibits normal muscle tone. Coordination normal. Skin: Skin is warm and dry. Capillary refill takes less than 2 seconds. No rash noted. She is not diaphoretic. No erythema. No pallor. Bilateral lower leeg swelling. Chronic dermatitis and rash of lower legs. Psychiatric: She has a normal mood and affect. Her behavior is normal. Judgment and thought contentnormal. Assessment/Plan Diagnoses and all orders for this visit: 1. BMI 50.0-59.9, adult ([facility]) (Primary) 2. Morbid (severe) obesity due to excess calories ([facility]) - Comprehensive metabolic panel; Future - TSH; Future - CBC with auto differential; Future - Lipid panel; Future - Hemoglobin A1c; Future 3. Mild intermittent asthma without complication Assessment & Plan: Mild and occasional breakthru wihtout added needs to treat 4. Benign hypertension Assessment & Plan: The bp good and no changesHypertension, Medical [...] bp. Orders: - Comprehensive metabolic panel; Future 5. Chronic stasis dermatitis Assessment & Plan: incompitent veins allow for flid to back up and limit flow and drivesthe swelling. The chronic dependency is what drive this Orders: - Comprehensive metabolic panel; Future - TSH; Future - CBC with auto differential; Future 6. Chronic pain syndrome Assessment & Plan: Tolerance to the pain meds from using 4 times a day Orders: - Comprehensive metabolic panel; Future - CBC with auto differential; Future 7. Encounter for Medicare annual wellness exam Assessment & Plan: Screening labs with a1c at 5.1 nl. The ldl at 95 ideal. The colon 2013 up to date andnt a candidateto repeat. Saurabh should repeat regulaly and work to get done 8. Vitamin D deficiency Assessment & Plan: Cont to take and will check on return Orders: - Vitamin D 25 hydroxy; Future Other orders - HYDROcodone-acetaminophen (NORCO) 5-325 mg per tablet; Take 1 tablet by mouth every 4 (four) hours as needed. documented in this encounter Miscellaneous Notes * Assessment & Plan Note - Jarvis Boston MD - 03/15/2017 11:22 AM CDT Associated Problem(s): Vitamin D deficiency Cont to take and will check on return * Assessment & Plan Note - Jarvis Boston MD - 03/15/2017 11:15 AM CDT Associated Problem(s): PE (physical exam), annual Screening labs with a1c at 5.1 nl. The ldl at 95 ideal. The colon 2013 up to date andnt a candidateto repeat. Saurabh should repeat regulaly and work to get done * Assessment & Plan Note - Jarvis Boston MD - 03/15/2017 11:13 AM CDT Associated Problem(s): Asthma (Resolved 05/20/2020) Mild and occasional breakthru wihtout added needs to treat * Assessment & Plan Note - Jarvis Boston MD - 03/15/2017 11:12 AM CDT Associated Problem(s): Benign hypertension The bp good and no changesHypertension, Medical [...] * Assessment & Plan Note - Jarvis Bsoton MD - 03/15/2017 11:11 AM CDT Associated Problem(s): Chronic stasis dermatitis incompitent veins allow for flid to back up and limit flow and drivesthe swelling. The chronic dependency is what drive this * Assessment & Plan Note - Jarvis Boston MD - 03/15/2017 11:10 AM CDT Associated Problem(s): Chronic pain syndrome Tolerance to the pain meds from using 4 times a day * Addendum Note - Xiomara Tate MA - 03/15/2017 10:30 AM CDTAddended by: XIOMARA TATE on: 09/01/2017 01:30 PM Modules accepted: Orders TRIMMER * Addendum Note - Xiomara Tate MA - 03/15/2017 10:30 AM CDTAddended by: XIOMARA TATE on: 09/01/2017 01:31 PM Modules accepted: Orders TRIMMER documented in this encounter Plan of Treatment Not on file documented as of this encounter Procedures Procedure Name Priority Date/Time Associated Diagnosis Comments COLONOSCOPY Routine 03/28/2013 DEXA SCAN Routine 01/24/2012 MAMMOGRAPHY Routine 01/24/2012 documented in this encounter Results * COLONOSCOPY (03/28/2013) Colonoscopy Abnormal Historical Provider HEALTH MAINTENANCE Final Result * DEXA SCAN (01/24/2012) DEXA Scan Normal Historical Provider HEALTH MAINTENANCE Final Result * MAMMOGRAPHY (01/24/2012) Mammogram Normal Historical Provider HEALTH MAINTENANCE Final Result documented in this encounter Visit Diagnoses Diagnosis BMI 50.0-59.9, adult (HCC)- Primary Morbid (severe) obesity due to excess calories (HCC) Mild intermittent asthma without complication Benign hypertension Essential hypertension, benign Chronic stasis dermatitis Chronic pain syndrome Encounter for Medicare annual wellness exam Vitamin D deficiency documented in this encounter Discontinued Medications Medication Sig Discontinue Reason Start Date End Da te HYDROcodone-acetaminoph en (NORCO) 5-325 mg per tablet Take 1 tablet by mouth every 6 (six) hours as needed for pain Earliest Fill Date: 02/28/17. 02/28/2017 03/15/2017 documented as of this encounter Care Teams Fire Prevention Officer Relationship Specialty Start Date End Date Jarvis Boston MD PCP - General 10/29/16 03/14/22 documented as of this encounter
--- OUTSIDE RECORDS SUMMARY | 2024-08-13 05:25 | XMS_ITS | Encounter Summary ---
Author Organization [facility] Address [address] [place] [address] Care Team Providers Care Qualitative Researcher Name Role Phone Jarvis Boston MD Primary Care [facility] Encounter Details Date Type Department Care Team (Late st Contact Info) Description 10/07/2017 Telephone [facility] [address] [place] [address] [address] [place] [address] Jarvis Boston MD [address] [place] [address] Social History Tobacco Use Types Packs/Day Years Used Date Smoking Tobacco: Never Smokeless Tobacco: Never Alcohol Use Standard Drinks/Week Comments Yes 0 (1 standard drink = 0.6 oz pur e alcohol) Comments Unknown Sex and Gender Information Value Date Recorded Sex Assigned at Not on file Legal Sex Female 11:52 PM FOREST OFFICER Gender Identity Female 09/15/2022 2:42 PM FOREST OFFICER Sexual Orientation Straight 09/15/2022 2: 42 PM FOREST OFFICER documented as of this encounter Miscellaneous Notes * Telephone Encounter - Chantel Okeefe - 10/07/2017 1:23 PM CST RX for [place] @ commercial front load operator. for patient. ST OFFICER documented in this encounter Plan of Treatment Not on file documented as of this encounter Visit Diagnoses Not on filedocumented in this encounter Care Teams Qualitative Researcher Relationship Specialty Start Date End Date Jarvis Boston MD PCP - General 10/29/16 03/14/22 documented as of this encounter
--- OUTSIDE RECORDS SUMMARY | 2024-08-13 05:30 | XMS_ITS | Continuity of Care Document ---
Author Organization [facility] Address [address] [place] [address] Phone Care Team Providers Care Commercial Green Building Architect Name Role Phone Kandice Vela Unavailable Unavailable Procedures Procedure Date Eye Exam, New Patient Optic Nerve Topography Advance Directives Directive Yes / No Effective Date File Name No Information Encounters Encounter Description Practice Location Reason(s) For Visit Diagnoses Date Provider Providers Copied on Encounter [facility], [address], [place], [place], [id number], [place] tel:[phone] [facility] No Information [address]. [address] , [address], [place], [address], [place]. tel:[phone] Referring Provider: Maddie Lopez OD, [address] [place], [address]. tel:[phone] Family History Family Member Type Diagnosis Age At Onset No Information Payers Payer name Insurance type Covered libertarian ID Authoriza tion(s) No Information Social History Type Description Quantity Date Captured Comments Sex Female Smoking Status No Information Chief Complaint And Reason For Visit No Information Reason For Referral Reason For Referral No Information History Of Present Illness Encounter Date Complaint History Of Prese nt Illness No Information Functional Status Date Functional Assessmen t No Information Instructions Date Instruction Additional Infor mation No Information Assessments Type Assessment Date No Information Patient Care Teams Name Effective Dates (start - stop) Status Members No Information
--- OUTSIDE RECORDS SUMMARY | 2024-08-13 05:30 | XMS_ITS | Clinical Summary ---
Author Organization Unknown Care Team Providers Care Installer Soft Top Name Role Phone TITA LEVI, MIHAELA Unavailable Unavailable KEN SALES AND SERVICE OFFICER, JUAN ANTONIO Unavailable Unavaildayanara ROSADO OT, LOVE Unavailable Unavailable KRUNAL DALE, TACO Unavailable Unavailable ELIZABETH RN, CASE Unavailable Unavaildayanara BREWSTER LPN, VANESSA Unavailable Unavailable JUDITH PT, ELISA Unavailable Unavailable Payers Payer Name Policy Type Policy Number Effective Date Expira tion Date [facility] [id number] Problems Condition Name Condition Details Condition Category Status Onset Date Resolution Date Last Treatment Date Treating Clinician Comments MORBID (SEVERE) OBESITY DUE TO EXCESS CALORIES Active 08-01 00:00: 00 RESPIRATORY FAILURE, UNSP, UNSP W HYPOXIA OR HYPERCAPNIA Active 08-01 00:00: 00 CHRONIC PAIN SYNDROME Active 08-01 00:00: 00 HYP HRT AND CHR KDNY DIS W HRT FAIL AND STG 1-4/UNSP CHR KDNY Active 08-01 00:00: 00 CHRONIC COMBINED SYSTOLIC AND DIASTOLIC HRT FAIL Active 08-01 00:00: 00 CHRONIC KIDNEY DISEASE, UNSPECIFIED Active 08-01 00:00: 00 OTHER SPECIFIED CHRONIC OBSTRUCTIVE PULMONARY DISEASE Active 08-01 00:00: 00 HYPOTHYROIDI SM, UNSPECIFIED Active 08-01 00:00: 00 DEM IN OTHER DIS CLASSD ELSWHR, UNSP SEV, WITH MOOD DISTRB Active 08-01 00:00: 00 MAJOR DEPRESSIVE DISORDER, RECURRENT, MODERATE Active 08-01 00:00: 00 PAROXYSMAL ATRIAL FIBRILLATION Active 08-01 00:00: 00 TAKOTSUBO SYNDROME Active 08-01 00:00: 00 LYMPHEDEMA, NOT ELSEWHERE CLASSIFIED Active 08-01 00:00: 00 OLD MYOCARDIAL INFARCTION Active 08-01 00:00: 00 MUSCLE WASTING AND ATROPHY, NEC, UNSP SITE Active 08-01 00:00: 00 UNSPECIFIED PROTEIN-BENJA KIEL MALNUTRITION Active 08-01 00:00: 00 HYPERLIPIDEM IA, UNSPECIFIED Active 08-01 00:00: 00 BODY MASS INDEX [BMI] 38.0-38.9, ADULT Active 08-01 00:00: 00 SKILLED NURSING (CURRENT) USE OF ANTICOAGULAN TS Active 08-01 00:00: 00 DEPENDENCE ON SUPPLEMENTAL OXYGEN Active 08-01 00:00: 00 Allergies, Adverse Reactions, Alerts Allergy Name Allergy Type Status Severity Reaction(s) Onset Date Inactive Date Treating Clinician Comments NO KNOWN ALLERGIES Propensity to adverse reactions Active 04-05 14:44: 46 Medications Ordered Medication Name Filled Medication Name Start Date Stop Date Current Medication? Ordering Clinician Indication Dosage Frequency Signature (SIG) Comments Components O2 - OXYGEN 03-29 00:00: 00 Yes [id number] SUPPLEMENTA L OXYGEN 2 Liter NEEDED 2 Liter NEEDED (route: Oxygen) Med Classific ation: Medical Oxygen topiramate 25 mg tablet 03-23 00:00: 00 04-05 00:00 :00 No [id number] Per instruc tions Per instructio ns (route: oral) Med Classific ation: Central Nervous System Agents carvedilol 3.125 mg tablet 03-14 00:00: 00 Yes [id number] HIGH BLOOD PRESSURE 1 tablet 2 TIMES DAILY 1 tablet 2 TIMES DAILY (route: oral) Med Classific ation: Cardiovas cular Therapy Agents Entresto 24 mg-26 mg tablet 03-14 00:00: 00 Yes [id number] HEART FAILURE 1 tablet 2 TIMES DAILY 1 tablet 2 TIMES DAILY (route: oral) Med Classific ation: Cardiovas cular Therapy Agents atorvastati n 10 mg tablet 03-11 00:00: 00 Yes [id number] HIGH CHOLESTEROL 0.5 tablet DAILY 0.5 tablet DAILY (route: oral) Med Classific ation: Cardiovas cular Therapy Agents Phospha Neutral 250 mg tablet 03-08 00:00: 00 Yes [id number] SUPPLEMENT 1 tablet DAILY 1 tablet DAILY (route: oral) Med Classific ation: Genitouri nary Therapy Eliquis 2.5 mg tablet 03-07 00:00: 00 Yes [id number] BLOOD THINNER 1 tablet 2 TIMES DAILY 1 tablet 2 TIMES DAILY (route: oral) Med Classific ation: Hematolog ical Agents amiodarone 200 mg tablet 03-03 00:00: 00 Yes [id number] IRREGULAR HEARTRATE 1 tablet DAILY 1 tablet DAILY (route: oral) Med Classific ation: Cardiovas cular Therapy Agents bupropion HCl SR 150 mg tablet,12 hr sustained-r elease 03-03 00:00: 00 Yes [id number] DEPRESSION 1 tablet 2 TIMES DAILY 1 tablet 2 TIMES DAILY (route: oral) Med Classific ation: Central Nervous System Agents furosemide 40 mg tablet 03-03 00:00: 00 Yes [id number] EDEMA 1 tablet DAILY 1 tablet DAILY (route: oral) Med Classific ation: Cardiovas cular Therapy Agents fluoxetine 40 mg capsule 02-27 00:00: 00 Yes [id number] MOOD 1 capsule DAILY 1 capsule DAILY (route: oral) Med Classific ation: Central Nervous System Agents spironolact one 25 mg tablet 02-27 00:00: 00 Yes [id number] HIGH BLOOD PRESSURE 1 tablet DAILY 1 tablet DAILY (route: oral) Med Classific ation: Cardiovas cular Therapy Agents acetaminoph en 325 mg capsule 04-04 00:00: 00 Yes [id number] PAIN 1 capsule EVERY 4 HOURS 1 capsule EVERY 4 HOURS (route: oral) Med Classific ation: Analgesic , Anti-infl ammatory or Antipyret ic albuterol sulfate HFA 90 mcg/actuati on aerosol inhaler 04-04 00:00: 00 Yes [id number] SHORTNESS OF BREATH 1 puff 2 TIMES DAILY 1 puff 2 TIMES DAILY (route: inhalation ) Med Classific ation: Respirato ry Therapy Agents fluoxetine 60 mg tablet 04-04 00:00: 00 Yes [id number] MOOD 1 tablet DAILY 1 tablet DAILY (route: oral) Med Classific ation: Central Nervous System Agents fluticasone propionate 50 mcg/actuati on nasal spray,suspe nsion 04-04 00:00: 00 Yes [id number] SEASONAL ALLERGIES 1 spray DAILY 1 spray DAILY (route: nasal) Med Classific ation: Respirato ry Therapy Agents hydrocodone 5 mg-acetamin ophen 325 mg tablet 04-04 00:00: 00 Yes [id number] PAIN 1 tablet EVERY 6 HOURS 1 tablet EVERY 6 HOURS (route: oral) Med Classific ation: Analgesic , Anti-infl ammatory or Antipyret ic loratadine 10 mg capsule 04-04 00:00: 00 Yes [id number] ANTIHISTAMI NE 1 capsule DAILY 1 capsule DAILY (route: oral) Med Classific ation: Respirato ry Therapy Agents topiramate 25 mg tablet 04-04 00:00: 00 Yes [id number] SEIZURES 1 tablet 2 TIMES DAILY 1 tablet 2 TIMES DAILY (route: oral) Med Classific ation: Central Nervous System Agents Vital Signs Vital Name Observation Time Observation Value Commen ts Temperature 2024-05-29 11:26:00.000 96.4 [degF] Temperature 2024-05-24 11:28:00.000 97.7 [degF] Temperature 2024-05-18 12:51:00.000 97.8 [degF] Temperature 2024-05-16 11:16:00.000 97 [degF] Temperature 2024-05-10 12:44:00.000 96.7 [degF] Temperature 2024-05-04 12:50:00.000 97.3 [degF] Temperature 2024-05-02 11:01:00.000 96.4 [degF] Temperature 2024-04-26 13:30:00.000 97.2 [degF] Temperature 2024-04-24 12:06:00.000 97.1 [degF] Temperature 2024-04-18 16:16:00.000 97.7 [degF] Temperature 2024-04-11 15:48:00.000 98 [degF] Temperature 2024-04-09 15:05:00.000 97.5 [degF] Temperature 2024-04-05 14:41:00.000 97.7 [degF] BMI (%) 2024-04-05 14:32:10.000 38 kg/m2 Height 2024-04-05 14:32:02.000 63 [in_us] Pulse 2024-05-29 11:26:00.000 75 /min Pulse 2024-05-24 11:28:00.000 75 /min Pulse 2024-05-18 12:51:00.000 75 /min Pulse 2024-05-16 11:16:00.000 81 /min Pulse 2024-05-10 12:44:00.000 74 /min Pulse 2024-05-04 12:50:00.000 78 /min Pulse 2024-05-02 11:01:00.000 78 /min Pulse 2024-04-26 13:30:00.000 76 /min Pulse 2024-04-24 12:06:00.000 81 /min Pulse 2024-04-18 16:16:00.000 98 /min Pulse 2024-04-11 15:48:00.000 85 /min Pulse 2024-04-09 15:05:00.000 100 /min Pulse 2024-04-05 14:41:00.000 67 /min O2 Saturation (%) 2024-05-29 11:26:00.000 95 % O2 Saturation (%) 2024-05-24 11:28:00.000 96 % O2 Saturation (%) 2024-05-18 12:51:00.000 95 % O2 Saturation (%) 2024-05-16 11:16:00.000 95 % O2 Saturation (%) 2024-05-10 12:44:00.000 93 % O2 Saturation (%) 2024-05-04 12:52:00.000 94 % O2 Saturation (%) 2024-05-02 11:01:00.000 96 % O2 Saturation (%) 2024-04-26 13:30:00.000 96 % O2 Saturation (%) 2024-04-24 12:06:00.000 96 % O2 Saturation (%) 2024-04-18 16:18:00.000 97 % O2 Saturation (%) 2024-04-11 15:50:00.000 95 % O2 Saturation (%) 2024-04-09 15:07:00.000 91 % O2 Saturation (%) 2024-04-05 14:41:00.000 95 % Respirations 2024-05-29 11:26:00.000 18 /min Respirations 2024-05-24 11:28:00.000 18 /min Respirations 2024-05-18 12:51:00.000 18 /min Respirations 2024-05-16 11:16:00.000 18 /min Respirations 2024-05-10 12:44:00.000 20 /min Respirations 2024-05-04 12:50:00.000 18 /min Respirations 2024-05-02 11:01:00.000 18 /min Respirations 2024-04-26 13:30:00.000 18 /min Respirations 2024-04-24 12:06:00.000 18 /min Respirations 2024-04-18 16:16:00.000 18 /min Respirations 2024-04-11 15:48:00.000 18 /min Respirations 2024-04-09 15:05:00.000 20 /min Respirations 2024-04-05 14:41:00.000 18 /min Weight (lbs) 2024-05-04 12:52:00.000 255 [lb_av] Weight (lbs) 2024-04-18 16:39:00.000 255 [lb_av] Weight (lbs) 2024-04-05 14:32:10.000 215 [lb_av] Systolic Blood Pressure 2024-05-29 11:26:00.000 130 mm [Hg] Systolic Blood Pressure 2024-05-24 11:28:00.000 100 mm [Hg] Systolic Blood Pressure 2024-05-18 12:51:00.000 98 mm[ Hg] Systolic Blood Pressure 2024-05-16 11:16:00.000 108 mm [Hg] Systolic Blood Pressure 2024-05-10 12:44:00.000 122 mm [Hg] Systolic Blood Pressure 2024-05-04 12:50:00.000 130 mm [Hg] Systolic Blood Pressure 2024-05-02 11:01:00.000 112 mm [Hg] Systolic Blood Pressure 2024-04-26 13:30:00.000 108 mm [Hg] Systolic Blood Pressure 2024-04-24 12:06:00.000 90 mm[ Hg] Systolic Blood Pressure 2024-04-18 16:16:00.000 96 mm[ Hg] Systolic Blood Pressure 2024-04-11 15:48:00.000 105 mm [Hg] Systolic Blood Pressure 2024-04-09 15:05:00.000 128 mm [Hg] Systolic Blood Pressure 2024-04-05 14:41:00.000 129 mm [Hg] Diastolic Blood Pressure 2024-05-29 11:26:00.000 74 mm [Hg] Diastolic Blood Pressure 2024-05-24 11:28:00.000 60 mm [Hg] Diastolic Blood Pressure 2024-05-18 12:51:00.000 58 mm [Hg] Diastolic Blood Pressure 2024-05-16 11:16:00.000 60 mm [Hg] Diastolic Blood Pressure 2024-05-10 12:44:00.000 70 mm [Hg] Diastolic Blood Pressure 2024-05-04 12:50:00.000 70 mm [Hg] Diastolic Blood Pressure 2024-05-02 11:01:00.000 62 mm [Hg] Diastolic Blood Pressure 2024-04-26 13:30:00.000 62 mm [Hg] Diastolic Blood Pressure 2024-04-24 12:06:00.000 62 mm [Hg] Diastolic Blood Pressure 2024-04-18 16:16:00.000 60 mm [Hg] Diastolic Blood Pressure 2024-04-11 15:48:00.000 76 mm [Hg] Diastolic Blood Pressure 2024-04-09 15:05:00.000 84 mm [Hg] Diastolic Blood Pressure 2024-04-05 14:41:00.000 65 mm [Hg] Plan of Treatment Planned Activity Planned Date Details Comments Future Scheduled Test AGENCY MAY PERFORM A RESUMPTION OF CARE VISIT FOLLOWING ANY HOSPITAL ADMISSION. PT TO EVALUATE, OBSERVE / ASSESS, AND MONITOR, SALES AND SERVICE OFFICER TO OBSERVE AND MONITOR, PROVIDE SKILLED THERAPEUTIC INTERVENTION, ACTIVITY, EDUCATION, AND TRAINING TO ADDRESS; [code = AGENCY MAY PERFORM A RESUMPTION OF CARE VISIT FOLLOWING ANY HOSPITAL ADMISSION. PT TO EVALUATE, OBSERVE / ASSESS, AND MONITOR, SALES AND SERVICE OFFICER TO OBSERVE AND MONITOR, PROVIDE SKILLED THERAPEUTIC INTERVENTION, ACTIVITY, EDUCATION, AND TRAINING TO ADDRESS;] Future Scheduled Test BED MOBILI TY (PT/SALES AND SERVICE OFFICER) [code = BED MOBILITY (PT/SALES AND SERVICE OFFICER)] Future Scheduled Test BED TRANSF ERS (PT/SALES AND SERVICE OFFICER) [code = BED TRANSFERS (PT/SALES AND SERVICE OFFICER)] Future Scheduled Test SIT TO/FRO M STAND TRANSFERS (PT/SALES AND SERVICE OFFICER) [code = SIT TO/FROM STAND TRANSFERS (PT/SALES AND SERVICE OFFICER)] Future Scheduled Test PT/SALES AND SERVICE OFFICER TO PROVIDE GAIT TRAINING FOR IMPROVED MOBILITY AND /OR TO NORMALIZE GAIT PATTERN [code = PT/SALES AND SERVICE OFFICER TO PROVIDE GAIT TRAINING FOR IMPROVED MOBILITY AND /OR TO NORMALIZE GAIT PATTERN] Future Scheduled Test NEUROMUSCU LAR RE-EDUCATION / BALANCE / POSTURAL CONTROL (PT) [code = NEUROMUSCULAR RE-EDUCATION / BALANCE / POSTURAL CONTROL (PT)] Future Scheduled Test THERAPEUTI C EXERCISES AND ESTABLISHING A HOME EXERCISE PROGRAM (PT/SALES AND SERVICE OFFICER) [code = THERAPEUTIC EXERCISES AND ESTABLISHING A HOME EXERCISE PROGRAM (PT/SALES AND SERVICE OFFICER)] Future Scheduled Test PT / SALES AND SERVICE OFFICER T O EDUCATE ON HEART FAILURE SELF-MANAGEMENT [code = PT / SALES AND SERVICE OFFICER TO EDUCATE ON HEART FAILURE SELF-MANAGEMENT] Future Scheduled Test PT / SALES AND SERVICE OFFICER T O EDUCATE ON HYPERTENSION SELF-MANAGEMENT [code = PT / SALES AND SERVICE OFFICER TO EDUCATE ON HYPERTENSION SELF-MANAGEMENT] Future Scheduled Test PT / SALES AND SERVICE OFFICER T O EDUCATE ON ATRIAL FIBRILLATION SELF-MANAGEMENT. [code = PT / SALES AND SERVICE OFFICER TO EDUCATE ON ATRIAL FIBRILLATION SELF-MANAGEMENT.] Future Scheduled Test PT TO ASSE SS / SALES AND SERVICE OFFICER TO MONITOR FOR HEART FAILURE EXACERBATION AND RECORD PATIENT REPORTED WEIGHT, AND NOTIFY THE PHYSICIAN AND/OR THE RN CLINICAL HAND BENDER FOR PHYSICIAN NOTIFICATION OF HF EXACERBATION (2LB WEIGHT GAIN IN 1 DAY, 5LBS IN A WEEK OR 5 LBS OVER BASELINE; INCREASED SOB, EDEMA, NEEDING MORE PILLOWS AT NIGHT, CRACKLES IN BASIS OF THE LUNGS OR PMI SHIFT) [code = PT TO ASSESS / SALES AND SERVICE OFFICER TO MONITOR FOR HEART FAILURE EXACERBATION AND RECORD PATIENT REPORTED WEIGHT, AND NOTIFY THE PHYSICIAN AND/OR THE RN CLINICAL HAND BENDER FOR PHYSICIAN NOTIFICATION OF HF EXACERBATION (2LB WEIGHT GAIN IN 1 DAY, 5LBS IN A WEEK OR 5 LBS OVER BASELINE; INCREASED SOB, EDEMA, NEEDING MORE PILLOWS AT NIGHT, CRACKLES IN BASIS OF THE LUNGS OR PMI SHIFT)] Future Scheduled Test PT TO ASSE SS / SALES AND SERVICE OFFICER TO MONITOR FOR AND REPORT EARLY SIGNS OF ANTICOAGULANT TOXICITY TO THE PHYSICIAN AND/OR THE RN CLINICAL HAND BENDER FOR PHYSICIAN NOTIFICATION AND TO PROVIDE PATIENT/CAREGIVER EDUCATION ON ANTICOAGULANT THERAPY [code = PT TO ASSESS / SALES AND SERVICE OFFICER TO MONITOR FOR AND REPORT EARLY SIGNS OF ANTICOAGULANT TOXICITY TO THE PHYSICIAN AND/OR THE RN CLINICAL HAND BENDER FOR PHYSICIAN NOTIFICATION AND TO PROVIDE PATIENT/CAREGIVER EDUCATION ON ANTICOAGULANT THERAPY] Future Scheduled Test PT / SALES AND SERVICE OFFICER T O MONITOR AND EDUCATE ON OXYGEN SATURATION DURING ADLS/IADLS, NOTIFY PHYSICIAN AND/OR THE RN CLINICAL HAND BENDER FOR PHYSICIAN NOTIFICATION AND IF O2 SATS BELOW PHYSICIAN ORDERED PARAMETERS AFTER 10 MIN OF REST [code = PT / SALES AND SERVICE OFFICER TO MONITOR AND EDUCATE ON OXYGEN SATURATION DURING ADLS/IADLS, NOTIFY PHYSICIAN AND/OR THE RN CLINICAL HAND BENDER FOR PHYSICIAN NOTIFICATION AND IF O2 SATS BELOW PHYSICIAN ORDERED PARAMETERS AFTER 10 MIN OF REST] Future Scheduled Test PT / SALES AND SERVICE OFFICER T O OBSERVE FOR EARLY SIGNS AND SYMPTOMS OF DEPRESSION OR DEPRESSION GETTING WORSE AND TO EDUCATE ON HOW TO FIND HELP. [code = PT / SALES AND SERVICE OFFICER TO OBSERVE FOR EARLY SIGNS AND SYMPTOMS OF DEPRESSION OR DEPRESSION GETTING WORSE AND TO EDUCATE ON HOW TO FIND HELP.] Future Scheduled Test PT / SALES AND SERVICE OFFICER T O INSTRUCT PATIENT/CAREGIVER ON RISK FOR HOSPITALIZATION/EMERGENCY ROOM VISITS, TEACH SIGNS AND SYMPTOMS THAT PUT PATIENT AT RISK, WHEN TO NOTIFY NURSE/PHYSICIAN OF COMPLICATIONS/DECLINE, AND WHEN TO CALL 911. [code = PT / SALES AND SERVICE OFFICER TO INSTRUCT PATIENT/CAREGIVER ON RISK FOR HOSPITALIZATION/EMERGENCY ROOM VISITS, TEACH SIGNS AND SYMPTOMS THAT PUT PATIENT AT RISK, WHEN TO NOTIFY NURSE/PHYSICIAN OF COMPLICATIONS/DECLINE, AND WHEN TO CALL 911.] Future Scheduled Test OCCUPATION AL THERAPIST TO EVALUATE FOR ADL TRAINING, SELF CARE [code = OCCUPATIONAL THERAPIST TO EVALUATE FOR ADL TRAINING, SELF CARE] Goal 2024-05-29 Patient Goal - TO WALK LONGER DISTANCES, AND GET AROUND BETTER. Goal Provider Goal - Goal Provider Goal - PT STG: PATIENT WILL BE ABLE TO PERFORM SUPINE>SIT FROM MAX ASSIST TO MOD ASSIST WITHIN 2 WEEKS. PT LTG: PATIENT WILL DEMONSTRATE IMPROVED BED MOBILITY TO REDUCE THE RISK OF SKIN INTEGRITY ISSUES AND/OR PAIN FROM MAX ASSIST TO MIN ASSIST WITHIN 9 WEEKS Goal Provider Goal - PT STG: PATIENT WILL BE ABLE TO PERFORM BED TRANSFERS FROM SBA TO INDEP WITH FWW WITHIN 2 WEEKS OT REDUCE RISK OF SKIN BREAKDOWN. Goal Provider Goal - PT STG: PATIENT WILL DEMONSTRATE IMPROVED ABILITY TO PERFORM SIT TO/FROM STAND TRANSFERS TO REDUCE THE RISK OF SKIN BREAKDOWN AND REDUCE FALL RISK FROM SBA TO INDEP WITHIN 2 WEEKS Goal Provider Goal - PT LTG: PATIENT WILL DEMONSTRATE REDUCED GAIT DEVIATIONS TO REDUCE THE RISK FOR FALLING AND MINIMIZE STRAIN ON KNEES/HIPS AND BACK EVIDENCED BY IMPROVED STEP LENGTH AND POSTURE TO IMPROVE AMBULATION FROM SBA TO INDEP WITH FWW IN ORDER TO ACCESS ALL AREAS OF THE HOME WITHIN 9 WEEKS. Goal Provider Goal - PT LTG: PATIENT WILL DEMONSTRATE REDUCED FALL RISK EVIDENCED BY TINETTI IMPROVING FROM 10 TO WITHIN 9 WEEKS. Goal Provider Goal - PT STG: PATIENT WILL BE INDEP WITH HEP WITHIN 2 WEEKS. PT LTG: PATIENT WILL DEMONSTRATE INCREASED STRENGTH OF BLE FROM 4/5 TO 4+/5 WITHIN 9 WEEKS IN ORDER TO ACHIEVE NORMAL GAIT PATTERN AND IMPROVE PERFORMANCE WITH BED MOBILITY. Goal Provider Goal - PT STG: PATIENT WILL BE ABLE TO WEIGH SELF WITH USE OF FWW AND MIN ASSIST WITHIN 2 WEEKS. PT LTG: PATIENT/CAREGIVER WILL BE ABLE TO IDENTIFY SIGNS OF EXACERBATION OF HEART FAILURE AND VERBALIZE / DEMONSTRATE HOW TO MANAGE SYMPTOMS AND HOW TO ADHERE TO HEART FAILURE SELF-MANAGEMENT AND LIFE-STYLE CHANGES BY END OF EPISODE. Goal Provider Goal - PT GOAL: PATIENT/CAREGIVER WILL BE ABLE TO IDENTIFY SIGNS OF EXACERBATION OF HYPERTENSION AND WILL VERBALIZE/DEMONSTRATE AN ABILITY TO ADHERE TO HYPERTENSION SELF-MANAGEMENT AND LIFE-STYLE CHANGES BY END OF EPISODE Goal Provider Goal - PT GOAL: PATIENT/CAREGIVER WILL BE ABLE TO IDENTIFY SIGNS OF ATRIAL FIBRILLATION EXACERBATION AND WILL VERBALIZE/DEMONSTRATE AN ABILITY TO ADHERE TO ATRIAL FIBRILLATION SELF-MANAGEMENT AND LIFE-STYLE CHANGES BY END OF EPISODE. Goal Provider Goal - PT GOAL: PATIENTS HEART FAILURE WILL REMAIN WELL CONTROLLED THROUGHOUT EPISODE OF CARE. Goal Provider Goal - PT LTG: PATIENT WILL NOT EXHIBIT SIGNS AND SYMPTOMS OF ANTICOAGULANT TOXICITY THROUGHOUT EPISODE OF CARE. Goal Provider Goal - PT LTG: PATIENT WILL MAINTAIN OXYGEN SATURATION WITHIN PHYSICIAN ORDERED PARAMETERS THROUGHOUT EPISODE OF CARE. Goal Provider Goal - PT LTG: EARLY IDENTIFICATION OF WORSENING DEPRESSION WITH TIMELY SN AND/OR PHYSICIAN NOTIFICATION. Goal Provider Goal - PT GOAL: PATIENT/CAREGIVER WILL VERBALIZE UNDERSTANDING OF SIGNS AND SYMPTOMS THAT PUT THE PATIENT AT RISK FOR HOSPITALIZATION /EMERGENCY ROOM VISITS, WHEN TO NOTIFY NURSE/PHYSICIAN OF COMPLICATIONS/DECLINE AND WHEN TO CALL 911. Goal Provider Goal - Reason for Visit MODERATE ASSIST WITH TRANSFER/AMBULATION/ADLS Encounters Start Date/Time End Date/Time Encounter Type Admission Type Attending [facility] Care Department Encounter ID Discharge Date Discharge Status Discharge Condition Discharge Reason Percent Goals Met 2024-04-05 00:00:00 2024-05-29 00:00:00 Outpatient NEW ADMISSION CASE [facility] [id number] 2024-05-29 00:00:00 DISCHARGE TO HOME OR SELF CARE MODERATE ASSIST WITH TRANSFER/A MBULATION/ ADLS ONLY - CLIENT NO LONGER REQUIRES SKILLED CARE 38.89
[2024-08-13] MEDS: CENTRAL LINE FLUSH 10 ML IV PUSH ×3 (05:37→20:22)
[2024-08-13 05:48] LABS: Hematocrit 33.6 % (37.0-47.0); Hemoglobin 11.8 g/dL (12.0-15.0); Mean Corpuscular HGB Conc 35.1 g/dl (32-36); Mean Corpuscular Hemoglobin 32.9 pg (26-34); Mean Corpuscular Volume 93.6 fl (80-100); Mean Platelet Volume 8.9 fl (7.4-10.4); Platelet Count Result 261 k/mm3 (150-375); Red Blood Count 3.59 M/mm3 (4.2-5.4); Red Cell Distribution Width 15.6 % (11.5-14.5); White Blood Count 19.1 K/mm3 (4.5-10.0)
[2024-08-13 05:58] LABS: Alanine Aminotransferase 105 U/L (6-35); Albumin Level 2.7 g/dL (3.5-5.1); Alkaline Phosphatase 173 U/L (38-126); Anion Gap 3 mmol/L (4-12); Aspartate Amino Transferase 75 U/L (14-36); Bilirubin,Total 1.5 mg/dL (0.2-1.3); Blood Urea Nitrogen 15 mg/dL (7-17); Calcium 8.7 mg/dL (8.4-10.2); Carbon Dioxide 24 mmol/L (22-30); Chloride 108 mmol/L (98-107); Estimated CRCL calculation 72 ml/min; Estimated Glomerular Filt Rate > 60; Glucose 95 mg/dL (65-110); Magnesium 1.7 mg/dL (1.6-2.3); Potassium 4.3 mmol/L (3.4-5.0); Sodium 135 mmol/L (137-145)
[2024-08-13] MEDS: ACETAMINOPHEN 325 MG TABLET 650 MG PO (06:07)
--- NOTE | 2024-08-13 08:52 | P.PNINT_ITS ---
Progress Note: A&P Assessment and Plan (1) Septic shock: Code(s): A41.9 - Sepsis, unspecified organism; R65.21 - Severe sepsis with septic shock Status: Acute Assessment and Plan: 08/06: Patient presented with generalized weakness, hypovolemia, hypotension, leukocytosis, was found to be in septic shock, likely related to UTI and hypovolemia -patient was adequately fluid resuscitated and is off of crystalloids -continue dopamine for bradycardia and hypotension, maintain MAP > 65 mmHg for adequate end organ perfusion and heart rate above 50 -08/06: Blood cultures growing Proteus mirabilis which is solis sensitive -continue cefepime (08/06), but will off of vancomycin -08/10 repeat blood cultures ordered as patient will likely need pacemaker. Results negative till now -patient is afebrile and overall improved but white count still elevated (2) UTI (urinary tract infection): Qualifiers: Hematuria presence: with hematuria Urinary tract infection type: acute cystitis Qualified Code(s): N30.01 - Acute cystitis with hematuria Code(s): N39.0 - Urinary tract infection, site not specified Status: Acute Assessment and Plan: UTI could be related to staghorn calculus in the right kidney or cystitis -antibiotics as above (3) Staghorn calculus: Code(s): N20.0 - Calculus of kidney Status: Acute Assessment and Plan: 08/06: CT chest abdomen and pelvis: Findings within the chest suggesting pulmonary hypertension.Staghorn calculus within the right kidney with global enlargement of the right kidney and surrounding inflammatory change. Lamellated stone within the gallbladder without additional abnormality. Punctate foci of air within the bladder with surrounding inflammatory change suggesting cystitis. Fibroid uterus, enlarged for a patient of this age. Nonobstructing fat- containing umbilical hernia. 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 08/07 status post Cystoscopy, right retrograde, right ureteral stent placement 6 Faroese contour, Stafford catheter placement (4) Bradyarrhythmia: Code(s): I49.8 - Other specified cardiac arrhythmias Status: Acute Assessment and Plan: Patient has Moreno cardia which appears to be junctional rhythm. Bradycardia could be related to hypovolemia, but continue to take her home medications amiodarone, Coreg -she continues to be bradycardic and yesterday during physical therapy the heart rate dropped to 20s and 30s movement early. -patient currently on dopamine for bradycardia and hypotension. Continue to titrate -cardiology following and patient will likely need permanent pacemaker -continue to hold amiodarone and AV annmarie blocking agents -patient is agreeable to pacemaker placement and Cardiology were planning to place permanent pacemaker (5) Acute renal failure: Qualifiers: Acute renal failure type: unspecified Qualified Code(s): N17.9 - Acute kidney failure, unspecified Code(s): N17.9 - Acute kidney failure, unspecified Status: Acute Assessment and Plan: Acute renal failure likely related to hypovolemia, decreased oral intake, says septic shock/infection Improved with IV fluids and creatinine trending down and close to normal, urine output improved -continue to monitor urine output, renal function electrolytes -nephrology was consulted from ER (6) Electrolyte imbalance: Code(s): E87.8 - Other disorders of electrolyte and fluid balance, not elsewhere classified Status: Acute Assessment and Plan: potassium normalized after replacement (7) Atrial fibrillation: Qualifiers: Atrial fibrillation type: paroxysmal Qualified Code(s): I48.0 - Paroxysmal atrial fibrillation Code(s): I48.91 - Unspecified atrial fibrillation Status: Acute Assessment and Plan: Patient has a history of atrial fibrillation on Eliquis at home. She takes amiodarone and Coreg at home -currently bradycardic and hypotensive -continue to hold home medications -hold Eliquis as patient has cystoscopy and has hematuria and will likely need permanent pacemaker (8) Cholelithiasis without cholecystitis: Code(s): K80.20 - Calculus of gallbladder without cholecystitis without obstruction Status: Acute Assessment and Plan: Ultrasound shows large single gallbladder stone. Radiologic Berry sign was positive. No other changes of cholecystitis or obstruction was seen. Patient was evaluated by general surgery and recommended conservative management at this time. No plan for surgical intervention (9) Transaminitis: Code(s): R74.01 - Elevation of levels of liver transaminase levels Status: Acute Assessment and Plan: Multifactorial. Improved Monitor. (10) Hematuria: Code(s): R31.9 - Hematuria, unspecified Status: Acute Assessment and Plan: has resolved. Anticoagulation still on hold for pacemaker pacemaker placed Plan DVT prophylaxis: Eliquis currently on hold due to hematuria and possible per pacemaker placement Stress ulcer prophylaxis: Protonix Nutrition: Diet ordered Code Status: Do not resuscitate PT OT has been limited due to patient's episodes of bradycardia with activity Up in chair Incentive spirometer Critical Care Time Spent: 30 minutes Due to a high probability of clinically significant, life threatening deterioration, the patient required my highest level of preparedness to intervene emergently and I personally spent this critical care time directly and personally managing the patient. This critical care time included obtaining a history; examining the patient; pulse oximetry; ordering and review of studies; arranging urgent treatment with development of a management plan; evaluation of patient's response to treatment; frequent reassessment; and discussions with other providers. It was exclusive of separately billable procedures and treating other patients and teaching time. Please see Assessment and Plan section and the rest of the note for further information on patient assessment and treatment This dictation may have been done utilizing a voice recognition system. Attempts have been made to correct errors. However, there may be uncorrected grammatical, spelling, and recognitions errors present. Subjective Date/time seen: 08/13/24 no overall electronic data interchange specialist last 24 hours. She states she feels overall better but has some sore throat Although the spray help. no trouble with swallowing.Patient denies fever, chest pain, shortness of breath, cough, nausea vomiting, abdominal pain,, diarrhea, headache or constipation. All other systems were reviewed and negative On 2 L nasal cannula Continues to require low-dose dopamine Junctional rhythm in 60s-70s with adequate blood pressure Urine output is acceptable Review of Systems Review of Systems: All systems reviewed & are unremarkable except as noted in HPI and below Exam Narrative: General: Pleasant female in no acute distress HEENT:? Pupils equal and reactive, sclera is clear, moist oral mucosa, some Neck:? Supple Respiratory:? Clear to auscultation bilaterally, decreased breath sounds at bases, adequate air entry, no wheeze Cardiac:? Sinus bradycardia Abdomen:? Soft, obese, tender to palpation around the umbilicus, normoactive bowel sounds Extremities:? Trace edema, palpable pedal pulses Neuro:? Patient is awake, alert, oriented x 3 Skin:? Warm and dry Psych:? Flat affect Objective Data Vital Signs Vital Signs: Vital Signs - 24 hr 08/12/24 09:39 08/12/24 10:00 08/12/24 10:00 Temperature Pulse Rate 75 73 73 Respiratory Rate 16 Blood Pressure 100/54 L 97/78 L Pulse Oximetry 100 Oxygen Delivery Oxygen Flow Rate 08/12/24 12:00 08/12/24 12:00 08/12/24 12:00 Temperature 37.4 C Pulse Rate 73 76 Respiratory Rate 23 H Blood Pressure 87/65 L 94/69 L Pulse Oximetry 100 99 Oxygen Delivery Nasal Cannula Oxygen Flow Rate 2 08/12/24 12:00 08/12/24 12:40 08/12/24 13:08 Temperature Pulse Rate 76 76 76 Respiratory Rate Blood Pressure 96/62 L 96/62 L Pulse Oximetry Oxygen Delivery Oxygen Flow Rate 08/12/24 13:45 08/12/24 14:00 08/12/24 14:00 Temperature Pulse Rate 77 75 75 Respiratory Rate 25 H Blood Pressure 101/61 96/62 L Pulse Oximetry 98 Oxygen Delivery Oxygen Flow Rate 08/12/24 16:00 08/12/24 16:00 08/12/24 16:00 Temperature 37.3 C Pulse Rate 73 72 78 Respiratory Rate 24 H Blood Pressure 99/64 L 99/64 L Pulse Oximetry 98 Oxygen Delivery Oxygen Flow Rate 08/12/24 16:00 08/12/24 17:55 08/12/24 18:00 Temperature Pulse Rate 73 70 Respiratory Rate 20 Blood Pressure 90/51 L 75/52 L Pulse Oximetry 98 93 Oxygen Delivery Nasal Cannula Oxygen Flow Rate 2 08/12/24 18:00 08/12/24 18:15 08/12/24 20:00 Temperature Pulse Rate 70 73 Respiratory Rate Blood Pressure 96/61 L Pulse Oximetry 100 Oxygen Delivery Nasal Cannula Oxygen Flow Rate 2 08/12/24 20:00 08/12/24 20:00 08/12/24 20:09 Temperature 37.3 C Pulse Rate 73 73 74 Respiratory Rate 26 H Blood Pressure 102/66 111/65 Pulse Oximetry 100 Oxygen Delivery Oxygen Flow Rate 08/12/24 20:32 08/12/24 20:45 08/12/24 22:00 Temperature Pulse Rate 74 80 71 Respiratory Rate Blood Pressure 111/65 99/61 L 100/57 L Pulse Oximetry Oxygen Delivery Oxygen Flow Rate 08/12/24 22:00 08/12/24 22:00 08/13/24 00:00 Temperature 37.2 C Pulse Rate 71 71 70 Respiratory Rate 26 H Blood Pressure 100/57 L Pulse Oximetry 99 Oxygen Delivery Oxygen Flow Rate 08/13/24 00:00 08/13/24 00:00 08/13/24 00:00 Temperature 37.2 C Pulse Rate 70 70 Respiratory Rate 25 H Blood Pressure 99/57 L 99/57 L Pulse Oximetry 100 100 Oxygen Delivery Nasal Cannula Oxygen Flow Rate 2 08/13/24 02:00 08/13/24 02:00 08/13/24 02:00 Temperature 37.2 C Pulse Rate 70 70 70 Respiratory Rate 22 H Blood Pressure 91/55 L 91/55 L Pulse Oximetry 96 Oxygen Delivery Oxygen Flow Rate 08/13/24 04:00 08/13/24 04:00 08/13/24 04:00 Temperature 37.2 C Pulse Rate 64 64 Respiratory Rate 19 Blood Pressure 98/52 L Pulse Oximetry 100 99 Oxygen Delivery Nasal Cannula Oxygen Flow Rate 2 08/13/24 04:16 08/13/24 04:20 08/13/24 06:00 Temperature Pulse Rate 70 70 73 Respiratory Rate Blood Pressure 98/52 L 98/52 L 96/46 L Pulse Oximetry Oxygen Delivery Oxygen Flow Rate 08/13/24 06:00 08/13/24 06:00 08/13/24 08:00 Temperature 37.2 C 37.2 C Pulse Rate 73 73 72 Respiratory Rate 13 20 Blood Pressure 96/46 L 112/69 Pulse Oximetry 100 100 Oxygen Delivery Oxygen Flow Rate Intake/Output Intake/Output: Intake & Output 08/10/24 08/11/24 08/12/24 08/13/24 23:59 23:59 23:59 23:59 Intake Total 2178.1 1624.0 1849.4 496.5 Output Total 1500 1450 1200 775 Balance 678.1 174.0 649.4 -278.5 Meds/Results Medications: Active Medications Generic Name Dose Route Start Last Admin Trade Name Freq PRN Reason Stop Dose Admin Acetaminophen 650 mg 08/06/24 21:36 08/13/24 06:07 Acetaminophen 325 Mg Tablet PO 650 mg Q4H PRN Administration Mild Pain (1-3) or Fever Hydrocodone Bitart/Acetaminophen 1 tab 08/07/24 15:27 08/09/24 20:47 Hydrocodone/Acetaminophen (*Crx) 5-325 Mg Tablet PO 1 tab Q6H PRN Administration Pain Rated 4-6 Apixaban 2.5 mg 08/07/24 09:00 Apixaban 2.5 Mg Tablet PO Q12HR SAL Bisacodyl 10 mg 08/08/24 09:00 08/12/24 11:09 Bisacodyl 10 Mg Suppository RECTAL 10 mg QAM SAL Administration Bupropion HCl 150 mg 08/07/24 09:00 08/12/24 20:34 Bupropion Hcl Sr (12 Hr) 150 Mg Tab PO 150 mg Q12HR SAL Administration Fluoxetine HCl 20 mg 08/07/24 09:00 08/12/24 11:09 Fluoxetine Hcl 20 Mg Capsule PO 20 mg DAILY SAL Administration Fluticasone Propionate 1 spray 08/07/24 09:00 08/12/24 11:11 Fluticasone Propionate 0.05% Na Spr 16 Gm Btl (*Bkc) NASAL 1 spray DAILY SAL Administration Dopamine HCl/Dextrose 400 mg in 250 mls @ 32.34 mls/hr 08/07/24 03:15 08/13/24 06:00 Dopamine 400 Mg/D5w 250 Ml IV CONT 7.5 mcg/kg/min .Q7H44M [facility] 32.34 mls/hr Titration Protocol Cefepime HCl 2 gm in 50 mls @ 100 mls/hr 08/10/24 21:00 08/12/24 20:34 Maxipime 2 Gm/Ns 50 Ml IVPB 100 mls/hr Q12H SAL Administration Loratadine 10 mg 08/07/24 09:00 08/07/24 10:10 Loratadine 10 Mg Tablet PO Not Given DAILY [facility] Ondansetron HCl 4 mg 08/06/24 21:36 08/09/24 23:16 Ondansetron Inj 4 Mg/2 Ml Vial IV PUSH 4 mg Q4H PRN Administration Nausea Ondansetron HCl 4 mg 08/07/24 11:08 Ondansetron Inj 4 Mg/2 Ml Vial IV PUSH ONCE PRN Nausea Pantoprazole Sodium 40 mg 08/08/24 09:00 08/12/24 11:08 Pantoprazole Sodium Iv 40 Mg Vial IV PUSH 40 mg QAM SAL Administration Phenol 1 spray 08/12/24 07:50 Phenol/Sod Pheno Ambler Brandt (*Bkc) MUCOUS MEM PRN PRN Sore Throat Polyethylene Glycol 17 gm 08/08/24 09:00 08/12/24 11:08 Polyethylene Glycol 3350 17 Gm Powd.Pack PO 17 gm QAM SAL Administration Sodium Chloride 10 ml 08/07/24 06:00 08/13/24 05:37 Central Line Flush IV PUSH 10 ml Q8HR SAL Administration Sodium Chloride 20 ml 08/07/24 02:32 Central Line Flush IV PUSH PRN PRN after blood draws Topiramate 25 mg 08/07/24 09:00 08/12/24 20:34 Topiramate 25 Mg Tablet PO 25 mg Q12HR SAL Administration Radiology Results: ITS Impressions Abdomen Ultrasound 08/06/24 20:18 IMPRESSION: Single lamellated stone within the gallbladder with a sonographic Berry sign. Chest/Abdomen/Pelvis CT 08/06/24 20:22 IMPRESSION: Findings within the chest suggesting pulmonary hypertension. Staghorn calculus within the right kidney with global enlargement of the right kidney and surrounding inflammatory change. Lamellated stone within the gallbladder without additional abnormality. Punctate foci of air within the bladder with surrounding inflammatory change suggesting cystitis. Fibroid uterus, enlarged for a patient of this age. Nonobstructing fat-containing umbilical hernia. 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 Chest X-Ray 08/07/24 05:19 Impression: Right IJ line in place. Clear lungs. Retrograde Pyelogram 08/07/24 12:44 IMPRESSION: 1. Right internal ureteral stent in expected position. Renal Ultrasound 08/07/24 15:17 IMPRESSION: No definite abnormality seen. Labs Labs: Laboratory Results - last 24 hr 08/13/24 05:41 WBC 19.1 H RBC 3.59 L Hgb 11.8 L Hct 33.6 L MCV 93.6 MCH 32.9 MCHC 35.1 RDW 15.6 H Plt Count 261 MPV 8.9 Sodium 135 L Potassium 4.3 Chloride 108 H Carbon Dioxide 24 Anion Gap 3 L BUN 15 Creatinine 0.69 L Estim Creat Clear Calc 72 Estimated GFR > 60 Glucose 95 Calcium 8.7 Magnesium 1.7 Total Bilirubin 1.5 H AST 75 H ALT 105 H Alkaline Phosphatase 173 H Total Protein 6.0 L Albumin 2.7 L Quality VTE Prophylaxis VTE prophylaxis: mechanical ordered and pharmacologic ordered
[2024-08-13] MEDS: FLUTICASONE PROPIONATE 0.05% NA SPR 16 GM BTL (*BKC) 1 SPRAY NASAL (09:00)
[2024-08-13] MEDS: CEFEPIME 2 GM/NS 50 ML 2 GM/50 ML BAG IVPB ×2 (09:02→20:21)
[2024-08-13] MEDS: polyethylene glycoL 3350 17 GM POWD.PACK PO (09:02)
[2024-08-13] MEDS: TOPIRAMATE 25 MG TABLET PO ×2 (09:03→20:21)
[2024-08-13] MEDS: BISACODYL 10 MG SUPPOSITORY RECTAL (09:03)
[2024-08-13] MEDS: buPROPion HCL SR (12 HR) 150 MG TAB PO ×2 (09:03→20:21)
[2024-08-13] MEDS: PANTOPRAZOLE SODIUM IV 40 MG VIAL IV PUSH (09:03)
[2024-08-13] MEDS: FLUoxetine HCL 20 MG CAPSULE PO (09:03)
--- NOTE | 2024-08-13 10:44 | PCFNICU ---
ICU Rounding Note: Pt current nutrition is Heart healthy diet. Rashad BID (90 kcal, 2.5 g protein) for skin issues. Ensure Compact BID for additional 220 kcal and 9 g protein each Nutrition recommendation: No new nutrition recommendations. Continue current nutrition care plan and orders. Agree with orders Last recorded weight is 119.2 kg. Bowel Motility: Last BM 08/10/24 Labs Reviewed: Hg 11.8, Hct 33.6, Alb 2.7, Na 135, Cre 0.69 Meds Noted: Dopamine, protonix, miralax, vancomycin Skin: Deep tissue pressure injury to sacrum Additional Notes: Intakes 15-75% on heart healthy diet. Drinking 50% supplement. Permanent pacemaker placement planned. Following daily in ICU rounds. Will monitor weight labs, skin, oral intake, meds every 5 days. .
[2024-08-14] VITALS (24 sets, daily range): BP systolic 80–110; BP diastolic 20–76; PULSE 69–79; RESP 12–25; TEMP 36.6–37.1; O2SAT 92–100; BMI 10.0
[2024-08-14] MEDS: DOPamine 400 MG/D5W 250 ML 400 MG/250 ML BAG 32.34 MG IV CONT ×3 (03:32→23:52)
[2024-08-14] MEDS: CENTRAL LINE FLUSH 10 ML IV PUSH ×3 (05:52→21:26)
[2024-08-14 07:37] LABS: Hematocrit 34.9 % (37.0-47.0); Hemoglobin 11.9 g/dL (12.0-15.0); Mean Corpuscular HGB Conc 34.1 g/dl (32-36); Mean Corpuscular Hemoglobin 32.5 pg (26-34); Mean Corpuscular Volume 95.4 fl (80-100); Mean Platelet Volume 9.2 fl (7.4-10.4); Platelet Count Result 304 k/mm3 (150-375); Red Blood Count 3.66 M/mm3 (4.2-5.4); Red Cell Distribution Width 16.1 % (11.5-14.5)
[2024-08-14 07:48] LABS: Alanine Aminotransferase 95 U/L (6-35); Albumin Level 2.9 g/dL (3.5-5.1); Alkaline Phosphatase 188 U/L (38-126); Anion Gap 5 mmol/L (4-12); Aspartate Amino Transferase 62 U/L (14-36); Bilirubin,Total 1.6 mg/dL (0.2-1.3); Blood Urea Nitrogen 17 mg/dL (7-17); Calcium 8.9 mg/dL (8.4-10.2); Carbon Dioxide 24 mmol/L (22-30); Chloride 106 mmol/L (98-107); Estimated CRCL calculation 65 ml/min; Estimated Glomerular Filt Rate > 60; Glucose 104 mg/dL (65-110); Potassium 4.6 mmol/L (3.4-5.0); Sodium 135 mmol/L (137-145)
[2024-08-14] MEDS: PANTOPRAZOLE SODIUM IV 40 MG VIAL IV PUSH (09:06)
[2024-08-14] MEDS: polyethylene glycoL 3350 17 GM POWD.PACK PO (09:06)
[2024-08-14] MEDS: buPROPion HCL SR (12 HR) 150 MG TAB PO ×2 (09:07→21:21)
[2024-08-14] MEDS: FLUTICASONE PROPIONATE 0.05% NA SPR 16 GM BTL (*BKC) 1 SPRAY NASAL (09:07)
[2024-08-14] MEDS: FLUoxetine HCL 20 MG CAPSULE PO (09:07)
[2024-08-14] MEDS: TOPIRAMATE 25 MG TABLET PO ×2 (09:07→21:21)
[2024-08-14] MEDS: AMOXICILLIN/CLAVULANATE K 875-125 MG TAB 1 TABLET PO ×3 (09:08→21:21)
--- NOTE | 2024-08-14 10:24 | WPDINTPN ---
Progress Note: A&P Assessment and Plan (1) Septic shock: Code(s): A41.9 - Sepsis, unspecified organism; R65.21 - Severe sepsis with septic shock Status: Acute Assessment and Plan: 08/06: Patient presented with generalized weakness, hypovolemia, hypotension, leukocytosis, was found to be in septic shock, likely related to UTI and hypovolemia -patient was adequately fluid resuscitated and is off of crystalloids -continue dopamine for bradycardia and hypotension, maintain MAP > 65 mmHg for adequate end organ perfusion and heart rate above 50 -08/06: Blood cultures growing Proteus mirabilis which is solis sensitive -08/10 repeat blood cultures ordered as patient will likely need pacemaker. Results negative till now -patient is afebrile and overall improved but white count still elevated. Repeat CT scan was done 08/14 CT chest abdomen pelvis IMPRESSION: 1. Patchy bilateral groundglass opacities in the lungs and favor pneumonia over pulmonary edema with differential also including less likely hypersensitivity pneumonitis or eosinophilic pneumonia. 2. Small bilateral pleural effusions. 3. Cholelithiasis. 4. Bilateral nephrolithiasis more prominent on the right with right internal ureteral stent in expected position. No hydronephrosis. 5. Moderate diverticulosis. 6. Moderate-sized fat-containing umbilical hernia. swallow evaluation done to rule out any aspiration. No evidence of aspiration seen on bedside swallow as per speech therapy antibiotics changed from cefepime to p.o. Augmentin to cover for both urine and pneumonia (2) UTI (urinary tract infection): Qualifiers: Hematuria presence: with hematuria Urinary tract infection type: acute cystitis Qualified Code(s): N30.01 - Acute cystitis with hematuria Code(s): N39.0 - Urinary tract infection, site not specified Status: Acute Assessment and Plan: UTI could be related to staghorn calculus in the right kidney or cystitis -antibiotics as above (3) Staghorn calculus: Code(s): N20.0 - Calculus of kidney Status: Acute Assessment and Plan: 08/06: CT chest abdomen and pelvis: Findings within the chest suggesting pulmonary hypertension.Staghorn calculus within the right kidney with global enlargement of the right kidney and surrounding inflammatory change. Lamellated stone within the gallbladder without additional abnormality. Punctate foci of air within the bladder with surrounding inflammatory change suggesting cystitis. Fibroid uterus, enlarged for a patient of this age. Nonobstructing fat-containing umbilical hernia. 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 08/07 status post Cystoscopy, right retrograde, right ureteral stent placement 6 Hebrew contour, Stafford catheter placement (4) Bradyarrhythmia: Code(s): I49.8 - Other specified cardiac arrhythmias Status: Acute Assessment and Plan: Patient has Moreno cardia which appears to be junctional rhythm. Bradycardia could be related to hypovolemia, but continue to take her home medications amiodarone, Coreg -she continues to be bradycardic and yesterday during physical therapy the heart rate dropped to 20s and 30s movement early. -patient currently on dopamine for bradycardia and hypotension. Continue to titrate -cardiology following and patient will likely need permanent pacemaker -continue to hold amiodarone and AV annmarie blocking agents -patient is agreeable to pacemaker placement and Cardiology were planning to place permanent pacemaker tomorrow (5) Acute renal failure: Qualifiers: Acute renal failure type: unspecified Qualified Code(s): N17.9 - Acute kidney failure, unspecified Code(s): N17.9 - Acute kidney failure, unspecified Status: Acute Assessment and Plan: Acute renal failure likely related to hypovolemia, decreased oral intake, says septic shock/infection Improved with IV fluids and creatinine trending down and close to normal, urine output improved -continue to monitor urine output, renal function electrolytes -nephrology was consulted from ER (6) Electrolyte imbalance: Code(s): E87.8 - Other disorders of electrolyte and fluid balance, not elsewhere classified Status: Acute Assessment and Plan: potassium normalized after replacement (7) Atrial fibrillation: Qualifiers: Atrial fibrillation type: paroxysmal Qualified Code(s): I48.0 - Paroxysmal atrial fibrillation Code(s): I48.91 - Unspecified atrial fibrillation Status: Acute Assessment and Plan: Patient has a history of atrial fibrillation on Eliquis at home. She takes amiodarone and Coreg at home -currently bradycardic and hypotensive -continue to hold home medications -hold Eliquis as patient has cystoscopy and has hematuria and will likely need permanent pacemaker (8) Cholelithiasis without cholecystitis: Code(s): K80.20 - Calculus of gallbladder without cholecystitis without obstruction Status: Acute Assessment and Plan: Ultrasound shows large single gallbladder stone. Radiologic Berry sign was positive. No other changes of cholecystitis or obstruction was seen. Patient was evaluated by general surgery and recommended conservative management at this time. No plan for surgical intervention (9) Transaminitis: Code(s): R74.01 - Elevation of levels of liver transaminase levels Status: Acute Assessment and Plan: Multifactorial. Improved Monitor. (10) Hematuria: Code(s): R31.9 - Hematuria, unspecified Status: Acute Assessment and Plan: has resolved. Anticoagulation still on hold for pacemaker pacemaker placement (11) Pneumonia: Code(s): J18.9 - Pneumonia, unspecified organism Status: Acute Assessment and Plan: see above Plan DVT prophylaxis: Eliquis currently on hold due to hematuria and possible per pacemaker placement Stress ulcer prophylaxis: Protonix Nutrition: Diet ordered Code Status: Do not resuscitate PT OT has been limited due to patient's episodes of bradycardia with activity Up in chair Incentive spirometer Critical Care Time Spent: 30 minutes Due to a high probability of clinically significant, life threatening deterioration, the patient required my highest level of preparedness to intervene emergently and I personally spent this critical care time directly and personally managing the patient. This critical care time included obtaining a history; examining the patient; pulse oximetry; ordering and review of studies; arranging urgent treatment with development of a management plan; evaluation of patient's response to treatment; frequent reassessment; and discussions with other providers. It was exclusive of separately billable procedures and treating other patients and teaching time. Please see Assessment and Plan section and the rest of the note for further information on patient assessment and treatment This dictation may have been done utilizing a voice recognition system. Attempts have been made to correct errors. However, there may be uncorrected grammatical, spelling, and recognitions errors present. Subjective Date/time seen: 08/14/24 patient denies any new complaints. Continues to be on dopamine. Her junctional rhythm in 60s on the monitor. . Tolerating p.o. diet. Afebrile. Patient denies fever, chest pain, shortness of breath, cough, nausea vomiting, abdominal pain,, diarrhea, headache or constipation. All other systems were reviewed and were negative Review of Systems Review of Systems: All systems reviewed & are unremarkable except as noted in HPI and below Exam Narrative: General: Pleasant female in no acute distress HEENT:? Pupils equal and reactive, sclera is clear, moist oral mucosa, some Neck:? Supple Respiratory:? Clear to auscultation bilaterally, decreased breath sounds at bases, adequate air entry, no wheeze Cardiac:? Sinus bradycardia Abdomen:? Soft, obese, tender to palpation around the umbilicus, normoactive bowel sounds Extremities:? Trace edema, palpable pedal pulses Neuro:? Patient is awake, alert, oriented x 3 Skin:? Warm and dry Psych:? Flat affect Objective Data Vital Signs Vital Signs: Vital Signs - 24 hr 08/13/24 12:00 08/13/24 12:00 08/13/24 12:50 Temperature 36.8 C Pulse Rate 73 73 70 Respiratory Rate 19 Blood Pressure 103/56 L 91/56 L Pulse Oximetry 99 Oxygen Delivery Oxygen Flow Rate Fraction of Inspired Oxygen 08/13/24 12:50 08/13/24 14:00 08/13/24 14:00 Temperature Pulse Rate 70 68 68 Respiratory Rate Blood Pressure 91/56 L 101/56 L Pulse Oximetry Oxygen Delivery Oxygen Flow Rate Fraction of Inspired Oxygen 08/13/24 14:00 08/13/24 16:00 08/13/24 16:00 Temperature Pulse Rate 71 70 Respiratory Rate 19 Blood Pressure 101/56 L 105/69 Pulse Oximetry 100 99 Oxygen Delivery Nasal Cannula Oxygen Flow Rate 2 Fraction of Inspired Oxygen 08/13/24 16:00 08/13/24 16:00 08/13/24 18:00 Temperature 36.6 C Pulse Rate 70 69 67 Respiratory Rate 25 H Blood Pressure 105/69 99/61 L Pulse Oximetry 99 Oxygen Delivery Oxygen Flow Rate Fraction of Inspired Oxygen 08/13/24 18:00 08/13/24 18:00 08/13/24 20:00 Temperature Pulse Rate 67 67 68 Respiratory Rate 19 19 Blood Pressure 99/61 L Pulse Oximetry 98 97 Oxygen Delivery Room Air Oxygen Flow Rate Fraction of Inspired Oxygen 21 08/13/24 20:00 08/13/24 20:00 08/13/24 20:03 Temperature 36.5 C Pulse Rate 67 67 67 Respiratory Rate 17 Blood Pressure 94/52 L 94/63 L Pulse Oximetry 100 Oxygen Delivery Oxygen Flow Rate Fraction of Inspired Oxygen 08/13/24 20:23 08/13/24 20:23 08/13/24 20:32 Temperature Pulse Rate 68 68 Respiratory Rate Blood Pressure 101/58 L 101/58 L Pulse Oximetry 97 Oxygen Delivery Room Air Oxygen Flow Rate Fraction of Inspired Oxygen 08/13/24 22:00 08/13/24 22:00 08/13/24 22:15 Temperature Pulse Rate 72 75 69 Respiratory Rate 17 Blood Pressure 97/68 L 66/55 L Pulse Oximetry 97 Oxygen Delivery Oxygen Flow Rate Fraction of Inspired Oxygen 08/14/24 00:00 08/14/24 00:00 08/14/24 00:00 Temperature 36.6 C Pulse Rate 75 74 74 Respiratory Rate 17 12 Blood Pressure 91/58 L Pulse Oximetry 97 97 Oxygen Delivery Room Air Oxygen Flow Rate Fraction of Inspired Oxygen 21 08/14/24 00:00 08/14/24 02:00 08/14/24 02:00 Temperature Pulse Rate 74 74 74 Respiratory Rate 19 Blood Pressure 91/58 L 107/51 L Pulse Oximetry 97 Oxygen Delivery Oxygen Flow Rate Fraction of Inspired Oxygen 08/14/24 02:00 08/14/24 03:32 08/14/24 03:32 Temperature Pulse Rate 69 71 72 Respiratory Rate Blood Pressure Pulse Oximetry Oxygen Delivery Oxygen Flow Rate Fraction of Inspired Oxygen 08/14/24 04:00 08/14/24 04:00 08/14/24 04:00 Temperature 36.6 C Pulse Rate 74 73 71 Respiratory Rate 19 21 H Blood Pressure 87/61 L Pulse Oximetry 97 99 Oxygen Delivery Room Air Oxygen Flow Rate Fraction of Inspired Oxygen 08/14/24 05:33 08/14/24 06:00 08/14/24 06:00 Temperature Pulse Rate 70 71 70 Respiratory Rate 22 H Blood Pressure 91/57 L 97/62 L Pulse Oximetry 99 Oxygen Delivery Oxygen Flow Rate Fraction of Inspired Oxygen Intake/Output Intake/Output: Intake & Output 08/11/24 08/12/24 08/13/24 08/14/24 23:59 23:59 23:59 23:59 Intake Total 1624.0 1899.4 1287.2 254.8 Output Total 1450 1200 1075 300 Balance 174.0 699.4 212.2 -45.2 Meds/Results Medications: Active Medications Generic Name Dose Route Start Last Admin Trade Name Freq PRN Reason Stop Dose Admin Acetaminophen 650 mg 08/06/24 21:36 08/13/24 06:07 Acetaminophen 325 Mg Tablet PO 650 mg Q4H PRN Administration Mild Pain (1-3) or Fever Hydrocodone Bitart/Acetaminophen 1 tab 08/07/24 15:27 08/09/24 20:47 Hydrocodone/Acetaminophen (*Crx) 5-325 Mg Tablet PO 1 tab Q6H PRN Administration Pain Rated 4-6 Amoxicillin/Clavulanate Potassium 1 tablet 08/14/24 09:00 08/14/24 09:08 Amoxicillin/Clavulanate K 875-125 Mg Tab PO 1 tablet Q12HR SAL Administration Apixaban 2.5 mg 08/07/24 09:00 Apixaban 2.5 Mg Tablet PO Q12HR SAL Bisacodyl 10 mg 08/08/24 09:00 08/13/24 09:03 Bisacodyl 10 Mg Suppository RECTAL 10 mg QAM SAL Administration Bupropion HCl 150 mg 08/07/24 09:00 08/14/24 09:07 Bupropion Hcl Sr (12 Hr) 150 Mg Tab PO 150 mg Q12HR SAL Administration Fluoxetine HCl 20 mg 08/07/24 09:00 08/14/24 09:07 Fluoxetine Hcl 20 Mg Capsule PO 20 mg DAILY SAL Administration Fluticasone Propionate 1 spray 08/07/24 09:00 08/14/24 09:07 Fluticasone Propionate 0.05% Na Spr 16 Gm Btl (*Bkc) NASAL 1 spray DAILY SAL Administration Dopamine HCl/Dextrose 400 mg in 250 mls @ 32.34 mls/hr 08/07/24 03:15 08/14/24 05:33 Dopamine 400 Mg/D5w 250 Ml IV CONT 7.5 mcg/kg/min .Q7H44M SAL 32.34 mls/hr Titration Protocol Loratadine 10 mg 08/07/24 09:00 08/07/24 10:10 Loratadine 10 Mg Tablet PO Not Given DAILY SAL Ondansetron HCl 4 mg 08/06/24 21:36 08/09/24 23:16 Ondansetron Inj 4 Mg/2 Ml Vial IV PUSH 4 mg Q4H PRN Administration Nausea Ondansetron HCl 4 mg 08/07/24 11:08 Ondansetron Inj 4 Mg/2 Ml Vial IV PUSH ONCE PRN Nausea Pantoprazole Sodium 40 mg 08/08/24 09:00 08/14/24 09:06 Pantoprazole Sodium Iv 40 Mg Vial IV PUSH 40 mg QAM SAL Administration Phenol 1 spray 08/12/24 07:50 Phenol/Sod Pheno Delphia Brandt (*Bkc) MUCOUS MEM PRN PRN Sore Throat Polyethylene Glycol 17 gm 08/08/24 09:00 08/14/24 09:06 Polyethylene Glycol 3350 17 Gm Powd.Pack PO 17 gm QAM SAL Administration Sodium Chloride 10 ml 08/07/24 06:00 08/14/24 05:52 Central Line Flush IV PUSH 10 ml Q8HR SAL Administration Sodium Chloride 20 ml 08/07/24 02:32 Central Line Flush IV PUSH PRN PRN after blood draws Topiramate 25 mg 08/07/24 09:00 08/14/24 09:07 Topiramate 25 Mg Tablet PO 25 mg Q12HR SAL Administration Radiology Results: ITS Impressions Abdomen Ultrasound 08/06/24 20:18 IMPRESSION: Single lamellated stone within the gallbladder with a sonographic Berry sign. Chest X-Ray 08/07/24 05:19 Impression: Right IJ line in place. Clear lungs. Retrograde Pyelogram 08/07/24 12:44 IMPRESSION: 1. Right internal ureteral stent in expected position. Renal Ultrasound 08/07/24 15:17 IMPRESSION: No definite abnormality seen. Chest/Abdomen/Pelvis CT 08/13/24 14:47 IMPRESSION: 1. Patchy bilateral groundglass opacities in the lungs and favor pneumonia over pulmonary edema with differential also including less likely hypersensitivity pneumonitis or eosinophilic pneumonia. 2. Small bilateral pleural effusions. 3. Cholelithiasis. 4. Bilateral nephrolithiasis more prominent on the right with right internal ureteral stent in expected position. No hydronephrosis. 5. Moderate diverticulosis. 6. Moderate-sized fat-containing umbilical hernia. Labs Labs: Laboratory Results - last 24 hr 08/14/24 07:22 WBC 18.0 H RBC 3.66 L Hgb 11.9 L Hct 34.9 L MCV 95.4 MCH 32.5 MCHC 34.1 RDW 16.1 H Plt Count 304 MPV 9.2 Sodium 135 L Potassium 4.6 Chloride 106 Carbon Dioxide 24 Anion Gap 5 BUN 17 Creatinine 0.78 Estim Creat Clear Calc 65 Estimated GFR > 60 Glucose 104 Calcium 8.9 Total Bilirubin 1.6 H AST 62 H ALT 95 H Alkaline Phosphatase 188 H Total Protein 6.0 L Albumin 2.9 L Quality VTE Prophylaxis VTE prophylaxis: mechanical ordered and pharmacologic ordered
--- NOTE | 2024-08-14 11:05 | PCSTNOTE ---
Please refer to the Modified Barium Swallow Evaluation in the EMR.
--- NOTE | 2024-08-14 11:05 | PCSTNOTE ---
Please refer to the Bedside Swallow Evaluation in the EMR. Please note, silent aspiration cannot be ruled out at bedside. Pt was seen bedside for a swallow evaluation; per nursing she c/o pain with eating but reported to ST, It's not really the swallowing . She was unable to describe in any detail what issue she was having. Pt was eating her breakfast meal independently upon ST arriving for testing; pt was resistant when ST raised the HOB as it was slightly declined. Purpose was explained but she stated, that's enough ; natural dentition is in good condition; labial and lingual ROM and strength appeared WNL as per a cursory oral motor evaluation. Pt was able to perform a volitional swallow; vocal quality was clear. Pt was tested with items she agreed to eat from her breakfast tray which included a single bite of pancake and sausage. She readily took drinks of ensure, milk, and water via cup drinking and a straw. Oral stages appeared WFL; no leakage or pocketing was noted. Pharyngeal stage also appeared intact; swallow triggered promptly and with adequate laryngeal elevation. No overt s/s of aspiration were exhibited. Impression: functional swallowing however, silent aspiration cannot be ruled out at bedside Recommendation: continue current diet; notify ST with MBS if any further difficulty develops
[2024-08-14] MEDS: DOPamine 400 MG/D5W 250 ML 400 MG/250 ML BAG 43.13 MG IV CONT (11:24)
--- NOTE | 2024-08-14 11:35 | PCNFU ---
Nutrition Follow-Up Complete: Increased Protein needs as related to wounds as evidenced by pressure ulcers reported. Goal: Meet estimated nutritional needs. Patient will continue current goal. Pt current nutrition is Heart Healthy diet with Rashad BID and Ensure Compact. Nutrition recommendation: Nutritional Ice Cream BID Last recorded weight is 120.9 kg, up from 115 kg on admit. Bowel Motility: +BM reported 08/10 Labs Reviewed:Alb 2.9, Hct 34.9, Hgb 11.9 Meds Noted:Protonix, Eliquis, Miralax, Dopamine. Skin: Deep Tissue-Sacrum. Additional Notes: Patient current with heart healthy diet. Oral intake has been poor. She is drinking diet supplements. Recommending increasing supplement to TID with meals and adding Nutritional Ice Cream for additional 300 kcal and 9 gm protein. Rashad BID for wound healing providing 90 kcal/7 gm glutamine/7 gm arginine/ 2.5 gm protein. Will monitor weight labs, skin, oral intake, meds every 5 days.
--- NOTE | 2024-08-14 12:23 | P.PNCA_ITS ---
Progress Note: A&P Assessment and Plan (1) Bradycardia, sinus: Code(s): R00.1 - Bradycardia, unspecified Status: Acute Plan 79-year-old lady with: Symptomatic bradycardia with high-grade AV block despite withdrawal of amiodaro ne and beta-naomi. Plans are made for implantation of permanent pacemaker device tomorrow. Chris Bob MD [facility] Subjective Date/time seen: Date of service: 08/14/24 12:23 Interval history: Reason for visit: Bradycardia HPI: Lupis Juarez is a 79-year-old female with atrial flutter, history of takotsubo cardiomyopathy, and valvular heart disease. This is a patient who is followed by [facility] in [place]. She comes to [facility] because of generalized weakness. Cardiology is consulted because of bradycardia. At the time of my evaluation, patient is having significant pain, stating that she feels that she has to urinate but is unable to and is unable to provide much of a history. She is however able to tell me that prior to admission to the hospital she had not experienced any syncope, presyncope, chest pain, or shortness of breath. She does have occasional lightheadedness and dizziness. Because of hypotension and heart rates in the 40s on arrival to the hospital, she was placed on a dopamine drip and her hemodynamics have stabilized. Date of service 08/08: Tele with heart rates in the 60s-70s. Appears to be junctional to me. Remains on Dopamine. Blood cultures are growing Gram negative bacilli. Date of service 08/09/2024: Heart rate remains stable mostly in the 60's in what appears to be a junctional rhythm. She feels ok today, complains of some abdominal discomfort but is otherwise without any complaint. Date of service 08/10/2024: Feeling a little bit better today. Does not have any complaints. She remains on dopamine in her dose has been increased from yesterday. Today her telemetry looks like atrial fibrillation with rates in the 50s, 60s Date of service 08/11/2024: Heart rate and blood pressure drop when off of dopamine. Denies any chest pain Date of service 08/12/2024: Stable on dopamine. Resting comfortably. No chest pain Date of service 08/14/2024: Patient is asymptomatic stable on dopamine infusion no Moreno arrhythmias. Anticoagulation has been stopped. Detailed conversation had with the patient and regarding plans for pacemaker implantation tomorrow Exam Narrative: Obese, ill-appearing female lying supine in bed Const: General: no acute distress, alert, awake and uncomfortable (Intermit tently uncomfortable because of pain) Orientation/consciousness: patient oriented x3 Other: Ill appearing female in no acute distress HENMT: Head: normal to inspection Mouth: Yes dry mucous membranes Eyes: General: appearance normal, both eyes and all related structures Sclera: sclerae normal Pupils: Equal, round and reactive pupils present Neck: Neck: normal visual inspection, supple and no JVD Carotids: normal carotid upstroke Resp: Effort & Inspection: normal respiratory effort Auscultation: crackles Cardio: Rate: regular rate Rhythm: abnormal rhythm (Irregular rhythm) Heart sounds: S1 normal heart sound present, S2 normal heart sound present and n o murmurs GI: Auscultation: normal bowel sounds Urinary Catheter: Urinary Catheter: patent and draining Skin: General skin exam: normal color Neuro: General: patient oriented x3 Cranial nerves: Yes Equal, round and reactive pupils present Speech: normal speech Extrem: General: no edema Psych: Appearance: grossly normal Mental Status: mental status grossly normal Affect: normal affect Objective Data Vital Signs Vital Signs: Vital Signs - 24 hr 08/13/24 12:50 08/13/24 12:50 08/13/24 14:00 Temperature Pulse Rate 70 70 68 Respiratory Rate Blood Pressure 91/56 L 91/56 L 101/56 L Pulse Oximetry Oxygen Delivery Oxygen Flow Rate Fraction of Inspired Oxygen 08/13/24 14:00 08/13/24 14:00 08/13/24 16:00 Temperature Pulse Rate 68 71 70 Respiratory Rate 19 Blood Pressure 101/56 L 105/69 Pulse Oximetry 100 Oxygen Delivery Oxygen Flow Rate Fraction of Inspired Oxygen 08/13/24 16:00 08/13/24 16:00 08/13/24 16:00 Temperature 36.6 C Pulse Rate 70 69 Respiratory Rate 25 H Blood Pressure 105/69 Pulse Oximetry 99 99 Oxygen Delivery Nasal Cannula Oxygen Flow Rate 2 Fraction of Inspired Oxygen 08/13/24 18:00 08/13/24 18:00 08/13/24 18:00 Temperature Pulse Rate 67 67 67 Respiratory Rate 19 Blood Pressure 99/61 L 99/61 L Pulse Oximetry 98 Oxygen Delivery Oxygen Flow Rate Fraction of Inspired Oxygen 08/13/24 20:00 08/13/24 20:00 08/13/24 20:00 Temperature 36.5 C Pulse Rate 68 67 67 Respiratory Rate 19 17 Blood Pressure 94/52 L Pulse Oximetry 97 100 Oxygen Delivery Room Air Oxygen Flow Rate Fraction of Inspired Oxygen 21 08/13/24 20:03 08/13/24 20:23 08/13/24 20:23 Temperature Pulse Rate 67 68 68 Respiratory Rate Blood Pressure 94/63 L 101/58 L 101/58 L Pulse Oximetry Oxygen Delivery Oxygen Flow Rate Fraction of Inspired Oxygen 08/13/24 20:32 08/13/24 22:00 08/13/24 22:00 Temperature Pulse Rate 72 75 Respiratory Rate 17 Blood Pressure 97/68 L Pulse Oximetry 97 97 Oxygen Delivery Room Air Oxygen Flow Rate Fraction of Inspired Oxygen 21 08/13/24 22:15 08/14/24 00:00 08/14/24 00:00 Temperature Pulse Rate 69 75 74 Respiratory Rate 17 Blood Pressure 66/55 L Pulse Oximetry 97 Oxygen Delivery Room Air Oxygen Flow Rate Fraction of Inspired Oxygen 21 08/14/24 00:00 08/14/24 00:00 08/14/24 02:00 Temperature 36.6 C Pulse Rate 74 74 74 Respiratory Rate 12 Blood Pressure 91/58 L 91/58 L Pulse Oximetry 97 Oxygen Delivery Oxygen Flow Rate Fraction of Inspired Oxygen 08/14/24 02:00 08/14/24 02:00 08/14/24 03:32 Temperature Pulse Rate 74 69 71 Respiratory Rate 19 Blood Pressure 107/51 L Pulse Oximetry 97 Oxygen Delivery Oxygen Flow Rate Fraction of Inspired Oxygen 08/14/24 03:32 08/14/24 04:00 08/14/24 04:00 Temperature Pulse Rate 72 74 73 Respiratory Rate 19 Blood Pressure Pulse Oximetry 97 Oxygen Delivery Room Air Oxygen Flow Rate Fraction of Inspired Oxygen 21 08/14/24 04:00 08/14/24 05:33 08/14/24 06:00 Temperature 36.6 C Pulse Rate 71 70 71 Respiratory Rate 21 H Blood Pressure 87/61 L 91/57 L Pulse Oximetry 99 Oxygen Delivery Oxygen Flow Rate Fraction of Inspired Oxygen 08/14/24 06:00 08/14/24 08:00 08/14/24 08:00 Temperature Pulse Rate 70 70 Respiratory Rate 22 H Blood Pressure 97/62 L Pulse Oximetry 99 Oxygen Delivery Room Air Oxygen Flow Rate Fraction of Inspired Oxygen 08/14/24 08:00 08/14/24 08:09 08/14/24 10:00 Temperature 36.8 C Pulse Rate 71 70 79 Respiratory Rate 24 H Blood Pressure 95/48 L 95/48 L 80/49 L Pulse Oximetry 99 Oxygen Delivery Oxygen Flow Rate Fraction of Inspired Oxygen 08/14/24 10:00 08/14/24 10:00 08/14/24 10:50 Temperature Pulse Rate 79 79 69 Respiratory Rate 21 H Blood Pressure 80/49 L 84/49 L Pulse Oximetry 96 Oxygen Delivery Oxygen Flow Rate Fraction of Inspired Oxygen 08/14/24 11:05 08/14/24 11:10 08/14/24 11:24 Temperature Pulse Rate 69 69 69 Respiratory Rate Blood Pressure 96/52 L 103/54 L 103/54 L Pulse Oximetry Oxygen Delivery Oxygen Flow Rate Fraction of Inspired Oxygen Intake/Output Intake/Output: Intake & Output 08/11/24 08/12/24 08/13/24 08/14/24 23:59 23:59 23:59 23:59 Intake Total 1624.0 1899.4 1287.2 839.6 Output Total 1450 1200 1075 300 Balance 174.0 699.4 212.2 539.6 Meds/Results Medications: Active Medications Generic Name Dose Route Start Last Admin Trade Name Freq PRN Reason Stop Dose Admin Acetaminophen 650 mg 08/06/24 21:36 08/13/24 06:07 Acetaminophen 325 Mg Tablet PO 650 mg Q4H PRN Administration Mild Pain (1-3) or Fever Hydrocodone Bitart/Acetaminophen 1 tab 08/07/24 15:27 08/09/24 20:47 Hydrocodone/Acetaminophen (*Crx) 5-325 Mg Tablet PO 1 tab Q6H PRN Administration Pain Rated 4-6 Amoxicillin/Clavulanate Potassium 1 tablet 08/14/24 09:00 08/14/24 09:08 Amoxicillin/Clavulanate K 875-125 Mg Tab PO 1 tablet Q12HR SAL Administration Apixaban 2.5 mg 08/07/24 09:00 Apixaban 2.5 Mg Tablet PO Q12HR SAL Bisacodyl 10 mg 08/08/24 09:00 08/13/24 09:03 Bisacodyl 10 Mg Suppository RECTAL 10 mg QAM SAL Administration Bupropion HCl 150 mg 08/07/24 09:00 08/14/24 09:07 Bupropion Hcl Sr (12 Hr) 150 Mg Tab PO 150 mg Q12HR SAL Administration Fluoxetine HCl 20 mg 08/07/24 09:00 08/14/24 09:07 Fluoxetine Hcl 20 Mg Capsule PO 20 mg DAILY SAL Administration Fluticasone Propionate 1 spray 08/07/24 09:00 08/14/24 09:07 Fluticasone Propionate 0.05% Na Spr 16 Gm Btl (*Bkc) NASAL 1 spray DAILY SAL Administration Dopamine HCl/Dextrose 400 mg in 250 mls @ 43.125 mls/hr 08/07/24 03:15 08/14/24 11:24 Dopamine 400 Mg/D5w 250 Ml IV CONT 10 mcg/kg/min .Q5H48M SAL 43.13 mls/hr Administration Protocol 10 MCG/KG/MIN Loratadine 10 mg 08/07/24 09:00 08/07/24 10:10 Loratadine 10 Mg Tablet PO Not Given DAILY SAL Ondansetron HCl 4 mg 08/06/24 21:36 08/09/24 23:16 Ondansetron Inj 4 Mg/2 Ml Vial IV PUSH 4 mg Q4H PRN Administration Nausea Ondansetron HCl 4 mg 08/07/24 11:08 Ondansetron Inj 4 Mg/2 Ml Vial IV PUSH ONCE PRN Nausea Pantoprazole Sodium 40 mg 08/08/24 09:00 08/14/24 09:06 Pantoprazole Sodium Iv 40 Mg Vial IV PUSH 40 mg QAM SAL Administration Phenol 1 spray 08/12/24 07:50 Phenol/Sod Pheno Iuka Brandt (*Bkc) MUCOUS MEM PRN PRN Sore Throat Polyethylene Glycol 17 gm 08/08/24 09:00 08/14/24 09:06 Polyethylene Glycol 3350 17 Gm Powd.Pack PO 17 gm QAM SAL Administration Sodium Chloride 10 ml 08/07/24 06:00 08/14/24 05:52 Central Line Flush IV PUSH 10 ml Q8HR SAL Administration Sodium Chloride 20 ml 08/07/24 02:32 Central Line Flush IV PUSH PRN PRN after blood draws Topiramate 25 mg 08/07/24 09:00 08/14/24 09:07 Topiramate 25 Mg Tablet PO 25 mg Q12HR SAL Administration Radiology Results: ITS Impressions Abdomen Ultrasound 08/06/24 20:18 IMPRESSION: Single lamellated stone within the gallbladder with a sonographic Berry sign. Chest X-Ray 08/07/24 05:19 Impression: Right IJ line in place. Clear lungs. Retrograde Pyelogram 08/07/24 12:44 IMPRESSION: 1. Right internal ureteral stent in expected position. Renal Ultrasound 08/07/24 15:17 IMPRESSION: No definite abnormality seen. Chest/Abdomen/Pelvis CT 08/13/24 14:47 IMPRESSION: 1. Patchy bilateral groundglass opacities in the lungs and favor pneumonia over pulmonary edema with differential also including less likely hypersensitivity pneumonitis or eosinophilic pneumonia. 2. Small bilateral pleural effusions. 3. Cholelithiasis. 4. Bilateral nephrolithiasis more prominent on the right with right internal ureteral stent in expected position. No hydronephrosis. 5. Moderate diverticulosis. 6. Moderate-sized fat-containing umbilical hernia. Labs Labs: Laboratory Results - last 24 hr 08/14/24 07:22 WBC 18.0 H RBC 3.66 L Hgb 11.9 L Hct 34.9 L MCV 95.4 MCH 32.5 MCHC 34.1 RDW 16.1 H Plt Count 304 MPV 9.2 Sodium 135 L Potassium 4.6 Chloride 106 Carbon Dioxide 24 Anion Gap 5 BUN 17 Creatinine 0.78 Estim Creat Clear Calc 65 Estimated GFR > 60 Glucose 104 Calcium 8.9 Total Bilirubin 1.6 H AST 62 H ALT 95 H Alkaline Phosphatase 188 H Total Protein 6.0 L Albumin 2.9 L
--- NOTE | 2024-08-14 12:25 | WPDMODSED ---
Moderate Sedation Note-Pt Data Patient Data Diagnosis: High-grade AV block Present Complaint: No complaints Procedure to be performed/Plan: Implantation of permanent dual-chamber pacemaker Allergies Allergy/AdvReac Type Severity Reaction Status Date / Time BLOOD PRESSURE PILL Allergy Unknown Uncoded 06/10/15 08:59 Home Medications ?Medication ?Instructions ?Recorded ?Confirmed ?Type albuterol sulfate 90 mcg/actuation 1 inhalation inhalation BID 08/07/24 08/07/24 History aerosol inhaler amiodarone 200 mg tablet 200 mg PO DAILY 08/07/24 08/07/24 History apixaban 2.5 mg tablet (Eliquis) 2.5 mg PO BID 08/07/24 08/07/24 History atorvastatin 10 mg tablet 5 mg PO QPM 08/07/24 08/07/24 History bupropion HCl 150 mg tablet,12 hr 150 mg PO BID 08/07/24 08/07/24 History sustained-release carvedilol 3.125 mg tablet 3.125 mg PO BID 08/07/24 08/07/24 History fluoxetine 20 mg capsule 20 mg PO DAILY 08/07/24 08/07/24 History fluticasone propionate 50 1 spray intranasal DAILY 08/07/24 08/07/24 History mcg/actuation nasal spray,suspension (Flonase Allergy Relief) furosemide 40 mg tablet 40 mg PO DAILY 08/07/24 08/07/24 History loratadine 10 mg tablet 10 mg PO DAILY 08/07/24 08/07/24 History sacubitril 24 mg-valsartan 26 mg 1 tablet PO BID 08/07/24 08/07/24 History tablet (Entresto) sodium di- and 1 tablet PO QID 08/07/24 08/07/24 History monophosphate-potassium phos monobasic 250 mg tablet (Fan-Phos Neutral) spironolactone 25 mg tablet 25 mg PO DAILY 08/07/24 08/07/24 History topiramate 25 mg tablet 25 mg PO BID 08/07/24 08/07/24 History Current Medications: Active Medications Acetaminophen (Acetaminophen 325 Mg Tablet) 650 mg PO Q4H PRN PRN Reason: Mild Pain (1-3) or Fever Last Admin: 08/13/24 06:07 Dose: 650 mg Hydrocodone Bitart/Acetaminophen (Hydrocodone/Acetaminophen (*Crx) 5-325 Mg Tablet) 1 tab PO Q6H PRN PRN Reason: Pain Rated 4-6 Last Admin: 08/09/24 20:47 Dose: 1 tab Amoxicillin/Clavulanate Potassium (Amoxicillin/Clavulanate K 875-125 Mg Tab) 1 tablet PO Q12HR [facility] Last Admin: 08/14/24 09:08 Dose: 1 tablet Apixaban (Apixaban 2.5 Mg Tablet) 2.5 mg PO Q12HR [facility] Bisacodyl (Bisacodyl 10 Mg Suppository) 10 mg RECTAL QAM [facility] Last Admin: 08/13/24 09:03 Dose: 10 mg Bupropion HCl (Bupropion Hcl Sr (12 Hr) 150 Mg Tab) 150 mg PO Q12HR [facility] Last Admin: 08/14/24 09:07 Dose: 150 mg Fluoxetine HCl (Fluoxetine Hcl 20 Mg Capsule) 20 mg PO DAILY [facility] Last Admin: 08/14/24 09:07 Dose: 20 mg Fluticasone Propionate (Fluticasone Propionate 0.05% Na Spr 16 Gm Btl (*Bkc)) 1 spray NASAL DAILY [facility] Last Admin: 08/14/24 09:07 Dose: 1 spray Dopamine HCl/Dextrose (Dopamine 400 Mg/D5w 250 Ml) 400 mg in 250 mls @ 43.125 mls/hr IV CONT .Q5H48M [facility]; Protocol Last Admin: 08/14/24 11:24 Dose: 10 mcg/kg/min, 43.13 mls/hr Loratadine (Loratadine 10 Mg Tablet) 10 mg PO DAILY [facility] Last Admin: 08/07/24 10:10 Dose: Not Given Ondansetron HCl (Ondansetron Inj 4 Mg/2 Ml Vial) 4 mg IV PUSH Q4H PRN PRN Reason: Nausea Last Admin: 08/09/24 23:16 Dose: 4 mg Ondansetron HCl (Ondansetron Inj 4 Mg/2 Ml Vial) 4 mg IV PUSH ONCE PRN PRN Reason: Nausea Pantoprazole Sodium (Pantoprazole Sodium Iv 40 Mg Vial) 40 mg IV PUSH QAM [facility] Last Admin: 08/14/24 09:06 Dose: 40 mg Phenol (Phenol/Sod Pheno [place] (*Bkc)) 1 spray MUCOUS MEM PRN PRN PRN Reason: Sore Throat Polyethylene Glycol (Polyethylene Glycol 3350 17 Gm Powd.Pack) 17 gm PO QAM [facility] Last Admin: 08/14/24 09:06 Dose: 17 gm Sodium Chloride (Central Line Flush) 10 ml IV PUSH Q8HR [facility] Last Admin: 08/14/24 05:52 Dose: 10 ml Sodium Chloride (Central Line Flush) 20 ml IV PUSH PRN PRN PRN Reason: after blood draws Topiramate (Topiramate 25 Mg Tablet) 25 mg PO Q12HR [facility] Last Admin: 08/14/24 09:07 Dose: 25 mg Sedation/Anesthesia: No previous sedation/anesthesia problems (including family history). [facility] Past Medical History Medical History Paroxysmal atrial fibrillation Chronic anticoagulation Chronic kidney disease CHF (congestive heart failure) Morbid obesity with BMI of 45.0-49.9, adult HTN (hypertension) COPD (chronic obstructive pulmonary disease) Asthma Family History Family History Mother Kidney failure Social History Social History Social History: She lives with her of 48 years. She has 2 adult children who do not live nearby. She is a lifelong nonsmoker and denies any history of drug use. 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 She used to drink a couple of alcoholic beverages a week but has not done so in many years. Code status: After multiple conversations and discussion with multiple staff members the patient has decided that she would like to be a DNR/DNI. She would be okay with pressors and noninvasive ventilator support if needed but would not want cardiac resuscitation or intubation. Surrogate decision maker: Smoking status: Never smoker Alcohol intake: never Substance use: never Do You Feel Safe in your Home?: Yes Lack of Transportation: No Lack of Food: Never True Current Housing: I Have Housing Concerned About Future Housing: No Difficulty Paying Gas/Electric Bills: No Difficulty Paying for Meds: No Currently Unemployed: No Education: Decline to Answer Difficulty w/ Childcare or Family Care: No Living arrangements: with family Additional living arrangements comments: Spiritual care concerns: No Mod Sed Physical Exam Physical Exam Pre Procedural Exam: Normal: Neck, Throat, Airway, Lungs, Abdomen and Extremities and Variation: Appearance (Pleasant obese elderly lady), Heart Size (PMI not palpable), Heart Rate and Heart Rhythm (No audible murmur) Hours since solid foods: 12 Hours since liquid intake: 12 Mallampati Classification: class II Internal Medicine - PN: Obj Da Vital Signs Vital Signs: Vital Signs - 24 hr 08/13/24 12:50 08/13/24 12:50 08/13/24 14:00 Temperature Pulse Rate 70 70 68 Respiratory Rate Blood Pressure 91/56 L 91/56 L 101/56 L Pulse Oximetry Oxygen Delivery Oxygen Flow Rate Fraction of Inspired Oxygen 08/13/24 14:00 08/13/24 14:00 08/13/24 16:00 Temperature Pulse Rate 68 71 70 Respiratory Rate 19 Blood Pressure 101/56 L 105/69 Pulse Oximetry 100 Oxygen Delivery Oxygen Flow Rate Fraction of Inspired Oxygen 08/13/24 16:00 08/13/24 16:00 08/13/24 16:00 Temperature 36.6 C Pulse Rate 70 69 Respiratory Rate 25 H Blood Pressure 105/69 Pulse Oximetry 99 99 Oxygen Delivery Nasal Cannula Oxygen Flow Rate 2 Fraction of Inspired Oxygen 08/13/24 18:00 08/13/24 18:00 08/13/24 18:00 Temperature Pulse Rate 67 67 67 Respiratory Rate 19 Blood Pressure 99/61 L 99/61 L Pulse Oximetry 98 Oxygen Delivery Oxygen Flow Rate Fraction of Inspired Oxygen 08/13/24 20:00 08/13/24 20:00 08/13/24 20:00 Temperature 36.5 C Pulse Rate 68 67 67 Respiratory Rate 19 17 Blood Pressure 94/52 L Pulse Oximetry 97 100 Oxygen Delivery Room Air Oxygen Flow Rate Fraction of Inspired Oxygen 21 08/13/24 20:03 08/13/24 20:23 08/13/24 20:23 Temperature Pulse Rate 67 68 68 Respiratory Rate Blood Pressure 94/63 L 101/58 L 101/58 L Pulse Oximetry Oxygen Delivery Oxygen Flow Rate Fraction of Inspired Oxygen 08/13/24 20:32 08/13/24 22:00 08/13/24 22:00 Temperature Pulse Rate 72 75 Respiratory Rate 17 Blood Pressure 97/68 L Pulse Oximetry 97 97 Oxygen Delivery Room Air Oxygen Flow Rate Fraction of Inspired Oxygen 08/13/24 22:15 08/14/24 00:00 08/14/24 00:00 Temperature Pulse Rate 69 75 74 Respiratory Rate 17 Blood Pressure 66/55 L Pulse Oximetry 97 Oxygen Delivery Room Air Oxygen Flow Rate Fraction of Inspired Oxygen 21 08/14/24 00:00 08/14/24 00:00 08/14/24 02:00 Temperature 36.6 C Pulse Rate 74 74 74 Respiratory Rate 12 Blood Pressure 91/58 L 91/58 L Pulse Oximetry 97 Oxygen Delivery Oxygen Flow Rate Fraction of Inspired Oxygen 08/14/24 02:00 08/14/24 02:00 08/14/24 03:32 Temperature Pulse Rate 74 69 71 Respiratory Rate 19 Blood Pressure 107/51 L Pulse Oximetry 97 Oxygen Delivery Oxygen Flow Rate Fraction of Inspired Oxygen 08/14/24 03:32 08/14/24 04:00 08/14/24 04:00 Temperature Pulse Rate 72 74 73 Respiratory Rate 19 Blood Pressure Pulse Oximetry 97 Oxygen Delivery Room Air Oxygen Flow Rate Fraction of Inspired Oxygen 21 08/14/24 04:00 08/14/24 05:33 08/14/24 06:00 Temperature 36.6 C Pulse Rate 71 70 71 Respiratory Rate 21 H Blood Pressure 87/61 L 91/57 L Pulse Oximetry 99 Oxygen Delivery Oxygen Flow Rate Fraction of Inspired Oxygen 08/14/24 06:00 08/14/24 08:00 08/14/24 08:00 Temperature Pulse Rate 70 70 Respiratory Rate 22 H Blood Pressure 97/62 L Pulse Oximetry 99 Oxygen Delivery Room Air Oxygen Flow Rate Fraction of Inspired Oxygen 21 08/14/24 08:00 08/14/24 08:09 08/14/24 10:00 Temperature 36.8 C Pulse Rate 71 70 79 Respiratory Rate 24 H Blood Pressure 95/48 L 95/48 L 80/49 L Pulse Oximetry 99 Oxygen Delivery Oxygen Flow Rate Fraction of Inspired Oxygen 08/14/24 10:00 08/14/24 10:00 08/14/24 10:50 Temperature Pulse Rate 79 79 69 Respiratory Rate 21 H Blood Pressure 80/49 L 84/49 L Pulse Oximetry 96 Oxygen Delivery Oxygen Flow Rate Fraction of Inspired Oxygen 08/14/24 11:05 08/14/24 11:10 08/14/24 11:24 Temperature Pulse Rate 69 69 69 Respiratory Rate Blood Pressure 96/52 L 103/54 L 103/54 L Pulse Oximetry Oxygen Delivery Oxygen Flow Rate Fraction of Inspired Oxygen Intake/Output Intake/Output: Intake & Output 08/11/24 08/12/24 08/13/24 08/14/24 23:59 23:59 23:59 23:59 Intake Total 1624.0 1899.4 1287.2 839.6 Output Total 1450 1200 1075 300 Balance 174.0 699.4 212.2 539.6 Meds/Results Medications: Active Medications Generic Name Dose Route Start Last Admin Trade Name Freq PRN Reason Stop Dose Admin Acetaminophen 650 mg 08/06/24 21:36 08/13/24 06:07 Acetaminophen 325 Mg Tablet PO 650 mg Q4H PRN Administration Mild Pain (1-3) or Fever Hydrocodone Bitart/Acetaminophen 1 tab 08/07/24 15:27 08/09/24 20:47 Hydrocodone/Acetaminophen (*Crx) 5-325 Mg Tablet PO 1 tab Q6H PRN Administration Pain Rated 4-6 Amoxicillin/Clavulanate Potassium 1 tablet 08/14/24 09:00 08/14/24 09:08 Amoxicillin/Clavulanate K 875-125 Mg Tab PO 1 tablet Q12HR [facility] Administration Apixaban 2.5 mg 08/07/24 09:00 Apixaban 2.5 Mg Tablet PO Q12HR [facility] Bisacodyl 10 mg 08/08/24 09:00 08/13/24 09:03 Bisacodyl 10 Mg Suppository RECTAL 10 mg QAM [facility] Administration Bupropion HCl 150 mg 08/07/24 09:00 08/14/24 09:07 Bupropion Hcl Sr (12 Hr) 150 Mg Tab PO 150 mg Q12HR [facility] Administration Fluoxetine HCl 20 mg 08/07/24 09:00 08/14/24 09:07 Fluoxetine Hcl 20 Mg Capsule PO 20 mg DAILY [facility] Administration Fluticasone Propionate 1 spray 08/07/24 09:00 08/14/24 09:07 Fluticasone Propionate 0.05% Na Spr 16 Gm Btl (*Bkc) NASAL 1 spray DAILY [facility] Administration Dopamine HCl/Dextrose 400 mg in 250 mls @ 43.125 mls/hr 08/07/24 03:15 08/14/24 11:24 Dopamine 400 Mg/D5w 250 Ml IV CONT 10 mcg/kg/min .Q5H48M [facility] 43.13 mls/hr Administration Protocol 10 MCG/KG/MIN Loratadine 10 mg 08/07/24 09:00 08/07/24 10:10 Loratadine 10 Mg Tablet PO Not Given DAILY [facility] Ondansetron HCl 4 mg 08/06/24 21:36 08/09/24 23:16 Ondansetron Inj 4 Mg/2 Ml Vial IV PUSH 4 mg Q4H PRN Administration Nausea Ondansetron HCl 4 mg 08/07/24 11:08 Ondansetron Inj 4 Mg/2 Ml Vial IV PUSH ONCE PRN Nausea Pantoprazole Sodium 40 mg 08/08/24 09:00 08/14/24 09:06 Pantoprazole Sodium Iv 40 Mg Vial IV PUSH 40 mg QAM [facility] Administration Phenol 1 spray 08/12/24 07:50 Phenol/Sod Pheno [place] (*Bkc) MUCOUS MEM PRN PRN Sore Throat Polyethylene Glycol 17 gm 08/08/24 09:00 08/14/24 09:06 Polyethylene Glycol 3350 17 Gm Powd.Pack PO 17 gm QAM [facility] Administration Sodium Chloride 10 ml 08/07/24 06:00 08/14/24 05:52 Central Line Flush IV PUSH 10 ml Q8HR [facility] Administration Sodium Chloride 20 ml 08/07/24 02:32 Central Line Flush IV PUSH PRN PRN after blood draws Topiramate 25 mg 08/07/24 09:00 08/14/24 09:07 Topiramate 25 Mg Tablet PO 25 mg Q12HR [facility] Administration Radiology Results: ITS Impressions Abdomen Ultrasound 08/06/24 20:18 IMPRESSION: Single lamellated stone within the gallbladder with a sonographic Berry sign. Chest X-Ray 08/07/24 05:19 Impression: Right IJ line in place. Clear lungs. Retrograde Pyelogram 08/07/24 12:44 IMPRESSION: 1. Right internal ureteral stent in expected position. Renal Ultrasound 08/07/24 15:17 IMPRESSION: No definite abnormality seen. Chest/Abdomen/Pelvis CT 08/13/24 14:47 IMPRESSION: 1. Patchy bilateral groundglass opacities in the lungs and favor pneumonia over pulmonary edema with differential also including less likely hypersensitivity pneumonitis or eosinophilic pneumonia. 2. Small bilateral pleural effusions. 3. Cholelithiasis. 4. Bilateral nephrolithiasis more prominent on the right with right internal ureteral stent in expected position. No hydronephrosis. 5. Moderate diverticulosis. 6. Moderate-sized fat-containing umbilical hernia. Labs 08/14/24 07:22 08/14/24 07:22 Labs: Laboratory Results - last 24 hr 08/14/24 07:22 WBC 18.0 H RBC 3.66 L Hgb 11.9 L Hct 34.9 L MCV 95.4 MCH 32.5 MCHC 34.1 RDW 16.1 H Plt Count 304 MPV 9.2 Sodium 135 L Potassium 4.6 Chloride 106 Carbon Dioxide 24 Anion Gap 5 BUN 17 Creatinine 0.78 Estim Creat Clear Calc 65 Estimated GFR > 60 Glucose 104 Calcium 8.9 Total Bilirubin 1.6 H AST 62 H ALT 95 H Alkaline Phosphatase 188 H Total Protein 6.0 L Albumin 2.9 L ASA Classification/Sedation ASA Classification/Sedation ASA Class: III Emergent: No Risks: Risks, benefits and alternatives explained and patient/family accepted plan for sedation. Patient re-evaluated immediately prior to sedation.
[2024-08-14] MEDS: ONDANSETRON INJ 4 MG/2 ML VIAL IV PUSH (12:56)
--- NOTE | 2024-08-14 13:08 | PCOTNOTE ---
Attempted to see Patient this afternoon. Patient declined therapy services, verbalized she is having horrible nausea and declined any activity at this time. RN notified and aware
[2024-08-14] MEDS: HYDROcodone/acetaminophen (*CRX) 5-325 MG TABLET 1 TAB PO (21:21)
[2024-08-15] VITALS (19 sets, daily range): BP systolic 82–115; BP diastolic 40–86; PULSE 60–84; RESP 15–29; TEMP 36.3–37.2; O2SAT 97–100
[2024-08-15] MEDS: AMOXICILLIN/CLAVULANATE K 875-125 MG TAB 1 TABLET PO ×3 (05:40→20:20)
[2024-08-15] MEDS: CENTRAL LINE FLUSH 10 ML IV PUSH ×3 (05:40→20:20)
[2024-08-15] MEDS: DOPamine 400 MG/D5W 250 ML 400 MG/250 ML BAG 43.13 MG IV CONT (05:41)
[2024-08-15 06:12] LABS: Hematocrit 33.6 % (37.0-47.0); Hemoglobin 11.5 g/dL (12.0-15.0); Mean Corpuscular HGB Conc 34.2 g/dl (32-36); Mean Corpuscular Hemoglobin 32.5 pg (26-34); Mean Corpuscular Volume 94.9 fl (80-100); Mean Platelet Volume 9.3 fl (7.4-10.4); Platelet Count Result 299 k/mm3 (150-375); Red Blood Count 3.54 M/mm3 (4.2-5.4); Red Cell Distribution Width 16.4 % (11.5-14.5); White Blood Count 16.6 K/mm3 (4.5-10.0)
[2024-08-15 06:24] LABS: Alanine Aminotransferase 88 U/L (6-35); Albumin Level 2.8 g/dL (3.5-5.1); Alkaline Phosphatase 207 U/L (38-126); Anion Gap 4 mmol/L (4-12); Aspartate Amino Transferase 74 U/L (14-36); Bilirubin,Total 1.1 mg/dL (0.2-1.3); Blood Urea Nitrogen 17 mg/dL (7-17); Calcium 8.8 mg/dL (8.4-10.2); Carbon Dioxide 26 mmol/L (22-30); Chloride 105 mmol/L (98-107); Estimated CRCL calculation 66 ml/min; Estimated Glomerular Filt Rate > 60; Glucose 107 mg/dL (65-110); Potassium 4.5 mmol/L (3.4-5.0); Sodium 135 mmol/L (137-145)
[2024-08-15] MEDS: buPROPion HCL SR (12 HR) 150 MG TAB PO ×2 (08:43→20:20)
[2024-08-15] MEDS: PANTOPRAZOLE SODIUM IV 40 MG VIAL IV PUSH (08:43)
[2024-08-15] MEDS: FLUoxetine HCL 20 MG CAPSULE PO (08:44)
[2024-08-15] MEDS: TOPIRAMATE 25 MG TABLET PO ×2 (08:45→20:20)
[2024-08-15 09:31] LABS: INR 1.2; Prothrombin Time 15.4 Seconds (11.1-14.7)
[2024-08-15 09:32] LABS: Partial Thromboplastin Time 30.8 Seconds (22.3-36.8)
--- NOTE | 2024-08-15 11:13 | PC.NURSE ---
To agriculture laboratory technician per patient bed, IV- Triple lumen CVC R IJ. Report given to Joya Bunn RN. Off floor @ 1040. Sent with chart, dopamine, O2 NC, and signed consent
--- NOTE | 2024-08-15 11:15 | PCFNICU ---
ICU Rounding Note: Pt current nutrition is NPO. Nutrition recommendation: after procedure recommend advancing diet order to heart healthy. Last recorded weight is 119.1 kg, up from 115 kg on admit Bowel Motility: Last reported BM 08/10 Labs Reviewed: Na 135, Alb 2.8 Meds Noted:Dopamine, Miralax,Protonix. Skin: Deep Tissue-Sacrum. Additional Notes: Patient currently NPO for Pacemaker today. Recommend diet order as heart healthy with Rashad BID, Ensure Compact TID and Nutritional Ice Cream TID. She is drinking supplements. Agree with diet orders at this time. Following daily in ICU rounds. Will monitor weight labs, skin, oral intake, meds every 5 days.
--- NOTE | 2024-08-15 12:22 | ECG_ITS ---
Test Date: 2024-08-15 12:59:46 Measurements Intervals [place] Rate: 60 P: 99 RI: 259 QRS: 34 QRSD: 112 T: 90 QT: 483 QTc: 483 Interpretive Statements ELECTRONIC ATRIAL PACEMAKER LOW QRS VOLTAGE IN EXTREMITY LEADS [QRS DEFLECTION < 0.5 mV IN LIMB LEADS] MODERATE INTRAVENTRICULAR CONDUCTION DELAY [110+ ms QRS DURATION] ST DEVIATION AND MODERATE T-WAVE ABNORMALITY, CONSIDER ANTERIOR ISCHEMIA [-0.1+ mV T WAVE IN V3/V4] Compared to ECG 08/10/2024 12:06:49 PACED RHYTHM NOW PRESENT Electronically Signed On 08-15-2024 14:37:21 LEGAL ASSOCIATE by Christian Springer M.D.
--- NOTE | 2024-08-15 12:23 | WPDCARDPROC ---
Cardiac Cath Procedure Note Date of procedure:: 08/15/24 Performing physician:: Chris Bob MD Indication:: symptomatic bradycardia with intermittent acquired complete heart block Brief clinical history:: this is a 79-year-old woman initially hospitalized with weakness sepsis with Gram-negative rods. This is been treated with antibiotics and has been cleared. The patient is problematically player bradycardic with high-grade AV block and despite withdrawal of beta-naomi and amiodarone remains dependent on dopamine to support heart rate. For this reason and in this setting a per min pacemaker implant has been recommended Procedure Procedure performed:: implantation of permanent dual-chamber pacemaker Sedation/Medication given:: fentanyl 75 mg Versed 2 mg case start time 1126 sedation provided by Jamee Marcano RN trained observer Access site:: left subclavian Estimated blood loss:: minimal Procedure note:: patient was brought to the cardiac catheterization lab in the postabsorptive state the left anterior chest wall was prepped and draped in the usual sterile fashion. 20 cc of lidocaine was infiltrated for local anesthesia in the subclavicular fossa. An incision was then made about 1 in below the clavicle from the midclavicular line to the deltopectoral groove. Following this electrocautery was used to provide cutaneous hemostasis and sharp and blunt dissection was used to separate the subcutaneous tissue to the prepectoral fascia. blunt dissection was used to create a pacemaker pocket inferior to the incision. This was then packed with antibiotic soaked 4 x 4. Following this attention was turned venous access. This proved to be somewhat challenging I used the ultrasound to identify the subclavian vein after which time it was punctured easily. The vein was punctured twice placing 2 6 [place] safe sheaths for venous access. The safe sheaths were used to place the pacemaker leads detailed below to the venous circulation to the level of the right atrium. The Safe sheath were then peeled away. Following this attention was turned to position the ventricular lead. The stylet was withdrawn and a 3 cc syringe was used to form a J-tip stylet. This was used to steer the lead through the right ventricle. The straight stylet was placed into the lead and then this was withdrawn and placed into the right ventricular apical position. The fixation screw was deployed and the lead was tested with good sensing and pacing performed and a 10 volts stimulation no evidence of extracardiac stimulation. Following this attention was turned to positioning the atrial lead. The stylet was withdrawn and a preformed atrial J stylet was placed into lead and it was maneuvered into the right atrial appendage position. The fixation screw was deployed and upon withdrawal of the stylet the lead tip was fixed into position. Following this the lead was tested and good pacing and sensing performance was demonstrated and a 10 pole stimulus also showed no sign of extracardiac stimulation. Telemetry from the analyzer demonstrated complete heart block with AV dissociation at the time of the implant. The leads were then secured to the base of the pocket using the suture sleeve and 2-0 silk ties. The retained sponge was removed from the pocket and the pocket was irrigated with antibiotic infused saline. The pacemaker generator was then connected to the leads using the torque wrench and the entire assembly was placed into the newly created pocket which was then closed in layers. 3-0 Vicryl was used in an interrupted fashion for the subcutaneous tissue and 4-0 Vicryl in a running subcuticular fashion for the skin. I used Steri-Strips above that and then an Aquacel dressing. The procedure was then terminated was well tolerated and uncomplicated. Findings:: The patient received a [employer] dual-chamber pacemaker model Amvia Edge [id number]. serial number [id number]. the device is programmed in the DDD mode lower rate limit 60 upper rate limit 120. The atrial lead is a [employer] bipolar screw-in lead model Solia S [id number]. serial number [id number]. the P-waves are sensed at 1.2 mV threshold 0.9 volts at 0.4 milliseconds impedance 508 Ohms. The ventricular lead is a [employer] bipolar screw-in lead model Solia S [id number]. serial number [id number]. the R-waves are sensed at 8.6 mV threshold 0.8 volts at 0.4 milliseconds impedance 684 Ohms. Conclusion:: 1. Successful uncomplicated implantation of permanent Biotronik dual-chamber pacing system for treatment of symptomatic bradycardia with complete heart block in this 79-year-old lady initially admitted with Gram-negative sepsis. 2. Telemetry through the pacemaker device following implant demonstrates that her complete heart block is intermittent as at times she is atrially paced and ventricularly sensed. Chirs Bob MD [facility]
--- NOTE | 2024-08-15 12:58 | PCOTNOTE ---
The patient treatment was not able to be completed. 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 Will plan to continue treatment per plan of care.
--- NOTE | 2024-08-15 12:58 | PCPTNOTE ---
The patient treatment was not able to be completed on 08/15/2024 due to patient having cardiac cath and on bedrest for 24 hours. Will plan to continue treatment per plan of care.
--- NOTE | 2024-08-15 13:35 | PC.NURSE ---
Patient received from [employer] lab technician still hypotensive with a systolic in the 80s. Dopamine has been off since [employer] lab technician (see their documentation for stop time) Heart rate on implanted pacer is 60. Notified contact worker of persistant hypotension and inquired about resuming dopamine or introducing another vasopressor in its place, instructed to notify radiology clerk who placed pacer and inquire about adjusting backup rate on implanted pacer to 80. See provider documentation for antibiotic and plan of treatment. Notified Dr. Bob of continued hypotension, provider stated that a rate of 60 should hemodynamically be sufficient but if deemed necessary by contact worker to notify [employer] sales representative leather goods to adjust rate. [employer] rep Joao @ bedside @ 1350. Rate increased to 80. Following pressures reflective of greater perfusion, see vitals documentation. Joao the rep notified rep of rate change and latest BP.
[2024-08-15] MEDS: ONDANSETRON INJ 4 MG/2 ML VIAL IV PUSH (13:54)
[2024-08-15] MEDS: ALBUMIN HUMAN 25% 25 GM/100 ML 100 ML IVPB (13:55)
[2024-08-15] MEDS: SODIUM CHLORIDE 0.9% IV 1,000 ML 50 ML IV CONT (13:55)
--- NOTE | 2024-08-15 14:54 | P.PNINT_ITS ---
Progress Note: A&P Assessment and Plan (1) Septic shock: Code(s): A41.9 - Sepsis, unspecified organism; R65.21 - Severe sepsis with septic shock Status: Acute Assessment and Plan: 08/06: Patient presented with generalized weakness, hypovolemia, hypotension, leukocytosis, was found to be in septic shock, likely related to UTI and hypovolemia -patient was adequately fluid resuscitated and is off of crystalloids -continue dopamine for bradycardia and hypotension, maintain MAP > 65 mmHg for adequate end organ perfusion and heart rate above 50 -08/06: Blood cultures growing Proteus mirabilis which is solis sensitive -08/10 repeat blood cultures ordered as patient will likely need pacemaker. Results negative till now -patient is afebrile and overall improved but white count still elevated. Repeat CT scan was done -swallow evaluation done to rule out any aspiration. No evidence of aspiration seen on bedside swallow as per speech therapy -antibiotics changed from cefepime to p.o. Augmentin to cover for both urine and pneumonia 08/14 CT chest abdomen pelvis IMPRESSION: 1. Patchy bilateral groundglass opacities in the lungs and favor pneumonia over pulmonary edema with differential also including less likely hypersensitivity pneumonitis or eosinophilic pneumonia. 2. Small bilateral pleural effusions. 3. Cholelithiasis. 4. Bilateral nephrolithiasis more prominent on the right with right internal ureteral stent in expected position. No hydronephrosis. 5. Moderate diverticulosis. 6. Moderate-sized fat-containing umbilical hernia. (2) UTI (urinary tract infection): Qualifiers: Hematuria presence: with hematuria Urinary tract infection type: acute cystitis Qualified Code(s): N30.01 - Acute cystitis with hematuria Code(s): N39.0 - Urinary tract infection, site not specified Status: Acute Assessment and Plan: UTI could be related to staghorn calculus in the right kidney or cystitis -antibiotics as above (3) Staghorn calculus: Code(s): N20.0 - Calculus of kidney Status: Acute Assessment and Plan: 08/06: CT chest abdomen and pelvis: Findings within the chest suggesting pulmonary hypertension.Staghorn calculus within the right kidney with global enlargement of the right kidney and surrounding inflammatory change. Lamellated stone within the gallbladder without additional abnormality. Punctate foci of air within the bladder with surrounding inflammatory change suggesting cystitis. Fibroid uterus, enlarged for a patient of this age. Nonobstructing fat- containing umbilical hernia. 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 08/07 status post Cystoscopy, right retrograde, right ureteral stent placement 6 Egyptian contour, Stafford catheter placement (4) Bradyarrhythmia: Code(s): I49.8 - Other specified cardiac arrhythmias Status: Acute Assessment and Plan: Patient has Moreno cardia which appears to be junctional rhythm. Bradycardia could be related to hypovolemia, but continue to take her home medications amiodarone, Coreg -she continues to be bradycardic and yesterday during physical therapy the heart rate dropped to 20s and 30s movement early. -patient currently on dopamine for bradycardia and hypotension. Continue to titrate -cardiology following and patient will likely need permanent pacemaker -continue to hold amiodarone and AV annmarie blocking agents -status post permanent pacemaker today -rate was increased to 80 as patient was hypotensive with rates in the 60s -blood pressure much improved (5) Acute renal failure: Qualifiers: Acute renal failure type: unspecified Qualified Code(s): N17.9 - Acute kidney failure, unspecified Code(s): N17.9 - Acute kidney failure, unspecified Status: Acute Assessment and Plan: Acute renal failure likely related to hypovolemia, decreased oral intake, says septic shock/infection Improved with IV fluids and creatinine trending down and close to normal, urine output improved -continue to monitor urine output, renal function electrolytes -nephrology was consulted from ER -creatinine has normalized (6) Electrolyte imbalance: Code(s): E87.8 - Other disorders of electrolyte and fluid balance, not elsewhere classified Status: Acute Assessment and Plan: potassium normalized after replacement (7) Atrial fibrillation: Qualifiers: Atrial fibrillation type: paroxysmal Qualified Code(s): I48.0 - Paroxysmal atrial fibrillation Code(s): I48.91 - Unspecified atrial fibrillation Status: Acute Assessment and Plan: Patient has a history of atrial fibrillation on Eliquis at home. She takes amiodarone and Coreg at home -currently bradycardic and hypotensive -continue to hold home medications -hold Eliquis as patient has cystoscopy and has hematuria and will likely need permanent pacemaker -will likely need to start anticoagulation, will discuss with Cardiology (8) Cholelithiasis without cholecystitis: Code(s): K80.20 - Calculus of gallbladder without cholecystitis without obstruction Status: Acute Assessment and Plan: Ultrasound shows large single gallbladder stone. Radiologic Berry sign was positive. No other changes of cholecystitis or obstruction was seen. Patient was evaluated by general surgery and recommended conservative management at this time. No plan for surgical intervention (9) Transaminitis: Code(s): R74.01 - Elevation of levels of liver transaminase levels Status: Acute Assessment and Plan: Multifactorial. Improved Monitor. (10) Hematuria: Code(s): R31.9 - Hematuria, unspecified Status: Acute Assessment and Plan: has resolved. Anticoagulation still on hold for pacemaker pacemaker placement (11) Pneumonia: Code(s): J18.9 - Pneumonia, unspecified organism Status: Acute Assessment and Plan: see above Plan DVT prophylaxis: Eliquis currently on hold due to hematuria and possible per pacemaker placement Stress ulcer prophylaxis: Protonix Nutrition: Diet ordered Code Status: Do not resuscitate Continue PT OT nausea it patient has a pacemaker Up in chair Incentive spirometer Critical Care Time Spent: 34 minutes Discussed with patient's spouse at bedside and the patient and updated them with patient's condition and plan of care. I answered all the question Due to a high probability of clinically significant, life threatening deterioration, the patient required my highest level of preparedness to intervene emergently and I personally spent this critical care time directly and personally managing the patient. This critical care time included obtaining a history; examining the patient; pulse oximetry; ordering and review of studies; arranging urgent treatment with development of a management plan; evaluation of patient's response to treatment; frequent reassessment; and discussions with other providers. It was exclusive of separately billable procedures and treating other patients and teaching time. Please see Assessment and Plan section and the rest of the note for further information on patient assessment and treatment This dictation may have been done utilizing a voice recognition system. Attempts have been made to correct errors. However, there may be uncorrected grammatical, spelling, and recognitions errors present. Subjective Date/time seen: 08/15/24 14:54 Interval history: Reason for consult, septic shock likely related to pneumonia, UTI, staghorn calculus status post right ureteral stent placement, Moreno arrhythmia requiring dopamine infusion, acute kidney injury 08/15/2024: Patient seen and examined the ICU, is awake, alert, pleasant female currently in no acute distress. Denies any chest pain, shortness of breath, abdominal pain, nausea, vomiting. Going for permanent pacemaker this morning. Urine output has been adequate, afebrile, hemodynamically stable currently on dopamine infusion Review of Systems Review of Systems: All systems reviewed & are unremarkable except as noted in HPI and below Exam Narrative: General: Pleasant female in no acute distress HEENT:? Pupils equal and reactive, sclera is clear, moist oral mucosa, some Neck:? Supple Respiratory:? Clear to auscultation bilaterally, decreased breath sounds at bases, adequate air entry, no wheeze Cardiac:? Sinus bradycardia Abdomen:? Soft, obese, tender to palpation around the umbilicus, normoactive bowel sounds Extremities:? Trace edema, palpable pedal pulses Neuro:? Patient is awake, alert, oriented x 3 Skin:? Warm and dry Psych:? Flat affect Objective Data Vital Signs Vital Signs: Vital Signs - 24 hr 08/14/24 16:00 08/14/24 16:00 08/14/24 16:00 Temperature 98.3 F Pulse Rate 70 70 Respiratory Rate 25 H Blood Pressure 90/50 L 90/50 L Pulse Oximetry 99 Oxygen Delivery Room Air Oxygen Flow Rate 08/14/24 16:00 08/14/24 16:15 08/14/24 18:00 Temperature Pulse Rate 70 70 71 Respiratory Rate Blood Pressure 94/20 L Pulse Oximetry Oxygen Delivery Oxygen Flow Rate 08/14/24 18:00 08/14/24 18:33 08/14/24 18:33 Temperature Pulse Rate 71 73 73 Respiratory Rate 24 H Blood Pressure 105/59 L 98/60 L 98/60 L Pulse Oximetry 100 Oxygen Delivery Oxygen Flow Rate 08/14/24 20:00 08/14/24 20:00 08/14/24 20:00 Temperature Pulse Rate 75 75 Respiratory Rate Blood Pressure 99/76 L Pulse Oximetry 99 Oxygen Delivery Nasal Cannula Oxygen Flow Rate 2 08/14/24 20:00 08/14/24 22:00 08/14/24 22:00 Temperature 98.8 F Pulse Rate 75 72 72 Respiratory Rate 19 22 H Blood Pressure 98/63 L 110/63 Pulse Oximetry 99 99 Oxygen Delivery Oxygen Flow Rate 08/14/24 22:00 08/14/24 23:52 08/14/24 23:52 Temperature Pulse Rate 72 70 70 Respiratory Rate Blood Pressure 110/63 103/61 103/61 Pulse Oximetry Oxygen Delivery Oxygen Flow Rate 08/15/24 00:00 08/15/24 00:00 08/15/24 00:00 Temperature Pulse Rate 72 72 Respiratory Rate Blood Pressure 100/60 Pulse Oximetry 100 Oxygen Delivery Nasal Cannula Oxygen Flow Rate 2 08/15/24 00:00 08/15/24 00:15 08/15/24 02:00 Temperature 98.9 F Pulse Rate 72 70 69 Respiratory Rate 29 H Blood Pressure 100/60 83/45 L 102/75 Pulse Oximetry 100 Oxygen Delivery Oxygen Flow Rate 08/15/24 02:00 08/15/24 02:00 08/15/24 03:49 Temperature Pulse Rate 69 69 Respiratory Rate 17 Blood Pressure 102/75 Pulse Oximetry 99 99 Oxygen Delivery Nasal Cannula Oxygen Flow Rate 2 08/15/24 04:00 08/15/24 04:00 08/15/24 05:41 Temperature 97.4 F L Pulse Rate 67 67 69 Respiratory Rate 22 H Blood Pressure 115/68 115/68 89/71 L Pulse Oximetry 99 Oxygen Delivery Oxygen Flow Rate 08/15/24 05:41 08/15/24 08:00 08/15/24 08:00 Temperature Pulse Rate 69 67 68 Respiratory Rate 15 Blood Pressure 89/71 L Pulse Oximetry 99 Oxygen Delivery Nasal Cannula Oxygen Flow Rate 2 08/15/24 08:00 08/15/24 10:00 08/15/24 10:00 Temperature 98.9 F Pulse Rate 68 70 69 Respiratory Rate 22 H 22 H Blood Pressure 110/79 108/56 L Pulse Oximetry 99 97 Oxygen Delivery Oxygen Flow Rate 08/15/24 10:30 08/15/24 12:22 08/15/24 13:07 Temperature 98.2 F Pulse Rate 67 60 60 Respiratory Rate 17 16 Blood Pressure 101/69 90/45 L 82/60 L Pulse Oximetry 99 98 Oxygen Delivery Oxygen Flow Rate 08/15/24 14:00 08/15/24 14:06 Temperature 98.4 F Pulse Rate 60 80 Respiratory Rate 18 Blood Pressure 108/86 Pulse Oximetry 97 Oxygen Delivery Oxygen Flow Rate Intake/Output Intake/Output: Intake & Output 08/12/24 08/13/24 08/14/24 08/15/24 23:59 23:59 23:59 23:59 Intake Total 1899.4 1287.2 1683.3 554.5 Output Total 1200 1075 600 750 Balance 699.4 212.2 1083.3 -195.5 Meds/Results Medications: Active Medications Generic Name Dose Route Start Last Admin Trade Name Freq PRN Reason Stop Dose Admin Acetaminophen 650 mg 08/06/24 21:36 08/13/24 06:07 Acetaminophen 325 Mg Tablet PO 650 mg Q4H PRN Administration Mild Pain (1-3) or Fever Hydrocodone Bitart/Acetaminophen 1 tab 08/07/24 15:27 08/14/24 21:21 Hydrocodone/Acetaminophen (*Crx) 5-325 Mg Tablet PO 1 tab Q6H PRN Administration Pain Rated 4-6 Amoxicillin/Clavulanate Potassium 1 tablet 08/14/24 16:00 08/15/24 13:55 Amoxicillin/Clavulanate K 875-125 Mg Tab PO 1 tablet Q8HR SAL Administration Apixaban 2.5 mg 08/07/24 09:00 Apixaban 2.5 Mg Tablet PO Q12HR SAL Bisacodyl 10 mg 08/08/24 09:00 08/15/24 08:45 Bisacodyl 10 Mg Suppository RECTAL Not Given QAM SAL Bupropion HCl 150 mg 08/07/24 09:00 08/15/24 08:43 Bupropion Hcl Sr (12 Hr) 150 Mg Tab PO 150 mg Q12HR SAL Administration Fluoxetine HCl 20 mg 08/07/24 09:00 08/15/24 08:44 Fluoxetine Hcl 20 Mg Capsule PO 20 mg DAILY SAL Administration Fluticasone Propionate 1 spray 08/07/24 09:00 08/15/24 08:44 Fluticasone Propionate 0.05% Na Spr 16 Gm Btl (*Bkc) NASAL Not Given DAILY SAL Dopamine HCl/Dextrose 400 mg in 250 mls @ 0 mls/hr 08/07/24 03:15 08/15/24 10:30 Dopamine 400 Mg/D5w 250 Ml IV CONT 0 mcg/kg/min .Q0M SAL 0 mls/hr Titration Protocol 0 MCG/KG/MIN Sodium Chloride 1,000 mls @ 50 mls/hr 08/15/24 12:25 08/15/24 13:55 Normal Saline Iv IV CONT 08/15/24 20:24 50 mls/hr .Q20H SAL Administration Cefazolin Sodium 1 gm in 50 mls @ 100 mls/hr 08/15/24 18:00 Ancef 1 Gm/Ns 50 Ml IVPB 08/16/24 02:29 Q8H SAL Albumin Human 100 mls @ 60 mls/hr 08/15/24 13:25 08/15/24 13:55 Albutein IVPB 08/15/24 15:04 60 mls/hr ONCE ONE Administration Loratadine 10 mg 08/07/24 09:00 08/07/24 10:10 Loratadine 10 Mg Tablet PO Not Given DAILY SAL Ondansetron HCl 4 mg 08/06/24 21:36 08/15/24 13:54 Ondansetron Inj 4 Mg/2 Ml Vial IV PUSH 4 mg Q4H PRN Administration Nausea Ondansetron HCl 4 mg 08/07/24 11:08 Ondansetron Inj 4 Mg/2 Ml Vial IV PUSH ONCE PRN Nausea Pantoprazole Sodium 40 mg 08/08/24 09:00 08/15/24 08:43 Pantoprazole Sodium Iv 40 Mg Vial IV PUSH 40 mg QAM SAL Administration Phenol 1 spray 08/12/24 07:50 Phenol/Sod Pheno [place] (*[facility]) MUCOUS MEM PRN PRN Sore Throat Polyethylene Glycol 17 gm 08/08/24 09:00 08/15/24 08:44 Polyethylene Glycol 3350 17 Gm Powd.Pack PO Not Given QAM SAL Sodium Chloride 10 ml 08/07/24 06:00 08/15/24 13:55 Central Line Flush IV PUSH 10 ml Q8HR SAL Administration Sodium Chloride 20 ml 08/07/24 02:32 Central Line Flush IV PUSH PRN PRN after blood draws Topiramate 25 mg 08/07/24 09:00 08/15/24 08:45 Topiramate 25 Mg Tablet PO 25 mg Q12HR SAL Administration Radiology Results: ITS Impressions Abdomen Ultrasound 08/06/24 20:18 IMPRESSION: Single lamellated stone within the gallbladder with a sonographic Berry sign. Retrograde Pyelogram 08/07/24 12:44 IMPRESSION: 1. Right internal ureteral stent in expected position. Renal Ultrasound 08/07/24 15:17 IMPRESSION: No definite abnormality seen. Chest/Abdomen/Pelvis CT 08/13/24 14:47 IMPRESSION: 1. Patchy bilateral groundglass opacities in the lungs and favor pneumonia over pulmonary edema with differential also including less likely hypersensitivity pneumonitis or eosinophilic pneumonia. 2. Small bilateral pleural effusions. 3. Cholelithiasis. 4. Bilateral nephrolithiasis more prominent on the right with right internal ureteral stent in expected position. No hydronephrosis. 5. Moderate diverticulosis. 6. Moderate-sized fat-containing umbilical hernia. Chest X-Ray 08/15/24 13:11 Impression: 1: Cardiomegaly with mild interstitial edema. Labs Labs: Laboratory Results - last 24 hr 08/07/24 08/15/24 08/15/24 17:30 05:37 08:56 WBC 16.6 H RBC 3.54 L Hgb 11.5 L Hct 33.6 L MCV 94.9 MCH 32.5 MCHC 34.2 RDW 16.4 H Plt Count 299 MPV 9.3 PT 15.4 H INR 1.2 APTT 30.8 Sodium 135 L Potassium 4.5 Chloride 105 Carbon Dioxide 26 Anion Gap 4 BUN 17 Creatinine 0.76 Estim Creat Clear Calc 66 Estimated GFR > 60 Glucose 107 Calcium 8.8 Total Bilirubin 1.1 AST 74 H ALT 88 H Alkaline Phosphatase 207 H Total Protein 6.0 L Albumin 2.8 L U Abnormal Prot Band 2 Not Reportable U Abnormal Prot Band 3 Not Reportable Quality VTE Prophylaxis VTE prophylaxis: mechanical ordered and pharmacologic ordered
[2024-08-15] MEDS: ceFAZolin 1 GM/NS 50 ML 1 GM/50 ML BAG IVPB (17:57)
[2024-08-15] MEDS: ALTEPLASE 2 MG VIAL (CATHFLO) IV PUSH ×2 (21:21→21:22)
[2024-08-16] VITALS (33 sets, daily range): BP systolic 82–131; BP diastolic 38–87; PULSE 80–98; RESP 13–24; TEMP 36.4–36.7; O2SAT 93–100; BMI 10.0
[2024-08-16] MEDS: HYDROcodone/acetaminophen (*CRX) 5-325 MG TABLET 1 TAB PO ×2 (00:06→15:57)
[2024-08-16] MEDS: NOREPINEPHRINE 8 MG/D5W 250 ML 8 MG/250 ML BAG 9.38 MG IV CONT ×2 (01:30→22:00)
[2024-08-16] MEDS: ceFAZolin 1 GM/NS 50 ML 1 GM/50 ML BAG IVPB (03:00)
[2024-08-16] MEDS: CENTRAL LINE FLUSH 10 ML IV PUSH ×2 (06:17→20:02)
[2024-08-16] MEDS: AMOXICILLIN/CLAVULANATE K 875-125 MG TAB 1 TABLET PO (06:17)
[2024-08-16 06:23] LABS: Basophils Absolute Auto 0.1 K/mm3 (0.0-0.1); Basophils Percent Auto 0.8 % (0.2-1.2); Eosinophils Percent Auto 0.1 % (0-4.4); Hematocrit 30.2 % (37.0-47.0); Hemoglobin 10.4 g/dL (12.0-15.0); Immature Granulocyte Absolute 0.83 K/mm3 (0.00-0.031); Immature Granulocyte Percent A 4.6 % (0-0.5); Lymphocytes Absolute Auto 2.69 K/mm3 (0.9-3.2); Lymphocytes Percent Auto 14.9 % (18.3-44.2); Mean Corpuscular HGB Conc 34.4 g/dl (32-36); Mean Corpuscular Hemoglobin 33.1 pg (26-34); Mean Corpuscular Volume 96.2 fl (80-100); Mean Platelet Volume 9.1 fl (7.4-10.4); Monocytes Absolute Auto 1.6 K/mm3 (0.1-0.6); Monocytes Percent Auto 8.9 % (2.6-8.5); Neutrophils Absolute Auto 12.8 K/mm3 (1.3-6.7); Neutrophils Percent Auto 70.7 % (45.5-73.1); Nucleated Red Blood Cells Perc 0.1 % (0.0-0.2); Platelet Count Result 305 k/mm3 (150-375); Red Blood Count 3.14 M/mm3 (4.2-5.4); White Blood Count 18.1 K/mm3 (4.5-10.0)
[2024-08-16 06:33] LABS: Chloride 108 mmol/L (98-107)
[2024-08-16 06:37] LABS: Alanine Aminotransferase 62 U/L (6-35); Albumin Level 2.8 g/dL (3.5-5.1); Alkaline Phosphatase 181 U/L (38-126); Anion Gap 5 mmol/L (4-12); Aspartate Amino Transferase 60 U/L (14-36); Bilirubin,Total 1.2 mg/dL (0.2-1.3); Blood Urea Nitrogen 14 mg/dL (7-17); Carbon Dioxide 23 mmol/L (22-30); Estimated CRCL calculation 73 ml/min; Estimated Glomerular Filt Rate > 60; Glucose 63 mg/dL (65-110); Magnesium 1.7 mg/dL (1.6-2.3); Potassium 3.7 mmol/L (3.4-5.0); Sodium 136 mmol/L (137-145)
[2024-08-16] MEDS: POTASSIUM/PHOSPHORUS/SODIUM 1.5 GM PACKET 1 PACKET PO (08:29)
[2024-08-16] MEDS: FLUoxetine HCL 20 MG CAPSULE PO (08:29)
[2024-08-16] MEDS: MAGNESIUM SULF 2 GM/WATER 50ML 2 GM/50 ML BAG IVPB (08:29)
[2024-08-16] MEDS: TOPIRAMATE 25 MG TABLET PO ×2 (08:29→20:02)
[2024-08-16] MEDS: buPROPion HCL SR (12 HR) 150 MG TAB PO ×2 (08:29→20:02)
[2024-08-16] MEDS: PANTOPRAZOLE SODIUM IV 40 MG VIAL IV PUSH (08:30)
[2024-08-16] MEDS: FLUTICASONE PROPIONATE 0.05% NA SPR 16 GM BTL (*BKC) 1 SPRAY NASAL (08:33)
--- NOTE | 2024-08-16 09:39 | PM.PNCARD ---
Progress Note: A&P Assessment and Plan (1) Bradycardia, sinus: Code(s): R00.1 - Bradycardia, unspecified Status: Acute Plan 79-year-old lady with: Symptomatic bradycardia with high-grade AV block despite withdrawal of amiodarone and beta-naomi. She is now status post permanent pacemaker placement yesterday. Pacer interrogated this morning and functioning well No chest pain, shortness of breath Continue to hold anticoagulation for now Follow up in the office in one week for incision check and device check (scheduled) Cardiology will sign off. Please call with any questions. Subjective Date/time seen: 08/16/24 09:39 Interval history: Reason for visit: Bradycardia HPI: Lupis Juarez is a 79-year-old female with atrial flutter, history of takotsubo cardiomyopathy, and valvular heart disease. This is a patient who is followed by [facility] in [place]. She comes to [facility] because of generalized weakness. Cardiology is consulted because of bradycardia. At the time of my evaluation, patient is having significant pain, stating that she feels that she has to urinate but is unable to and is unable to provide much of a history. She is however able to tell me that prior to admission to the hospital she had not experienced any syncope, presyncope, chest pain, or shortness of breath. She does have occasional lightheadedness and dizziness. Because of hypotension and heart rates in the 40s on arrival to the hospital, she was placed on a dopamine drip and her hemodynamics have stabilized. Date of service 08/08: Tele with heart rates in the 60s-70s. Appears to be junctional to me. Remains on Dopamine. Blood cultures are growing Gram negative bacilli. Date of service 08/09/2024: Heart rate remains stable mostly in the 60's in what appears to be a junctional rhythm. She feels ok today, complains of some abdominal discomfort but is otherwise without any complaint. Date of service 08/10/2024: Feeling a little bit better today. Does not have any complaints. She remains on dopamine in her dose has been increased from yesterday. Today her telemetry looks like atrial fibrillation with rates in the 50s, 60s Date of service 08/11/2024: Heart rate and blood pressure drop when off of dopamine. Denies any chest pain Date of service 08/12/2024: Stable on dopamine. Resting comfortably. No chest pain Date of service 08/14/2024: Patient is asymptomatic stable on dopamine infusion no Moreno arrhythmias. Anticoagulation has been stopped. Detailed conversation had with the patient and regarding plans for pacemaker implantation tomorrow Date of service 08/16/2024: s/p PPM yesterday. Feels good today no chest pain or shortness of breath. Mild tenderness at pacemaker insertion site Review of Systems Review of Systems: All systems reviewed & are unremarkable except as noted in HPI and below (HPI) Exam Narrative: Obese, ill-appearing female lying supine in bed Const: General: no acute distress, alert, awake and obese Orientation/consciousness: patient oriented x3 Other: Ill appearing female in no acute distress HENMT: Head: normal to inspection Mouth: Yes dry mucous membranes Eyes: General: appearance normal, both eyes and all related structures Sclera: sclerae normal Pupils: Equal, round and reactive pupils present Neck: Neck: normal visual inspection, supple and no JVD Carotids: normal carotid upstroke Resp: Effort & Inspection: normal respiratory effort Auscultation: crackles Cardio: Rate: regular rate Rhythm: regular rhythm Heart sounds: S1 normal heart sound present, S2 normal heart sound present and no murmurs Other: Left pectoral incision site covered with sterile dressing. Pinpoint area of drainage visible GI: Auscultation: normal bowel sounds Urinary Catheter: Urinary Catheter: patent and draining Skin: General skin exam: normal color Neuro: General: patient oriented x3 Cranial nerves: Yes Equal, round and reactive pupils present Speech: normal speech Extrem: General: no edema Psych: Appearance: grossly normal Mental Status: mental status grossly normal Affect: normal affect Objective Data Vital Signs Vital Signs: Vital Signs - 24 hr 08/15/24 10:00 08/15/24 10:00 08/15/24 10:00 Temperature Pulse Rate 70 69 68 Respiratory Rate 22 H Blood Pressure 108/56 L 112/61 Pulse Oximetry 97 Oxygen Delivery Oxygen Flow Rate 08/15/24 10:30 08/15/24 12:00 08/15/24 12:22 Temperature 36.8 C Pulse Rate 67 67 60 Respiratory Rate 17 Blood Pressure 101/69 101/69 90/45 L Pulse Oximetry 99 Oxygen Delivery Oxygen Flow Rate 08/15/24 13:07 08/15/24 14:00 08/15/24 14:00 Temperature Pulse Rate 60 60 80 Respiratory Rate 16 Blood Pressure 82/60 L 108/86 Pulse Oximetry 98 Oxygen Delivery Oxygen Flow Rate 08/15/24 14:06 08/15/24 16:00 08/15/24 16:00 Temperature 36.9 C Pulse Rate 80 81 Respiratory Rate 18 Blood Pressure 108/86 107/63 Pulse Oximetry 97 97 Oxygen Delivery Nasal Cannula Oxygen Flow Rate 2 08/15/24 16:00 08/15/24 18:00 08/15/24 18:00 Temperature Pulse Rate 81 81 81 Respiratory Rate Blood Pressure 97/50 L Pulse Oximetry Oxygen Delivery Oxygen Flow Rate 08/15/24 18:07 08/15/24 20:00 08/15/24 20:00 Temperature Pulse Rate 82 84 84 Respiratory Rate 16 Blood Pressure 97/50 L 101/48 L Pulse Oximetry 100 Oxygen Delivery Oxygen Flow Rate 08/15/24 20:00 08/15/24 20:00 08/15/24 22:00 Temperature 36.3 C L Pulse Rate 84 82 Respiratory Rate 24 H Blood Pressure 101/48 L Pulse Oximetry 97 100 Oxygen Delivery Nasal Cannula Oxygen Flow Rate 1 08/15/24 22:00 08/16/24 00:00 08/16/24 00:00 Temperature 36.4 C L Pulse Rate 82 86 86 Respiratory Rate 18 16 Blood Pressure 99/40 L 93/48 L Pulse Oximetry 100 99 Oxygen Delivery Oxygen Flow Rate 08/16/24 00:00 08/16/24 01:30 08/16/24 02:00 Temperature Pulse Rate 83 82 Respiratory Rate Blood Pressure 82/57 L Pulse Oximetry 100 Oxygen Delivery Nasal Cannula Oxygen Flow Rate 1 08/16/24 02:00 08/16/24 02:00 08/16/24 04:00 Temperature Pulse Rate 82 82 Respiratory Rate 16 Blood Pressure 86/73 L 86/73 L Pulse Oximetry 100 98 Oxygen Delivery Nasal Cannula Oxygen Flow Rate 1 08/16/24 04:00 08/16/24 04:00 08/16/24 04:00 Temperature 36.4 C L Pulse Rate 82 82 82 Respiratory Rate 24 H Blood Pressure 116/51 L 116/51 L Pulse Oximetry 98 Oxygen Delivery Oxygen Flow Rate 08/16/24 06:00 08/16/24 06:00 08/16/24 06:00 Temperature Pulse Rate 82 81 97 Respiratory Rate 13 Blood Pressure 113/49 L 113/49 L Pulse Oximetry 97 Oxygen Delivery Oxygen Flow Rate 08/16/24 07:00 08/16/24 07:15 08/16/24 07:30 Temperature Pulse Rate 83 82 82 Respiratory Rate Blood Pressure 94/38 L 114/46 L 116/49 L Pulse Oximetry Oxygen Delivery Oxygen Flow Rate 08/16/24 07:45 08/16/24 08:00 08/16/24 08:00 Temperature 36.4 C Pulse Rate 82 81 81 Respiratory Rate 13 Blood Pressure 125/49 L 99/45 L 99/45 L Pulse Oximetry 98 Oxygen Delivery Oxygen Flow Rate 08/16/24 08:00 08/16/24 08:15 08/16/24 08:30 Temperature Pulse Rate 83 80 81 Respiratory Rate 13 Blood Pressure 100/39 L 102/43 L Pulse Oximetry 98 Oxygen Delivery Room Air Oxygen Flow Rate 08/16/24 08:45 Temperature Pulse Rate 83 Respiratory Rate Blood Pressure 102/48 L Pulse Oximetry Oxygen Delivery Oxygen Flow Rate Intake/Output Intake/Output: Intake & Output 08/13/24 08/14/24 08/15/24 08/16/24 23:59 23:59 23:59 23:59 Intake Total 1287.2 1683.3 654.6 1260.9 Output Total 4051 229 9084 150 Balance 212.2 1083.3 -945.4 1110.9 Meds/Results Medications: Active Medications Generic Name Dose Route Start Last Admin Trade Name Freq PRN Reason Stop Dose Admin Acetaminophen 650 mg 08/06/24 21:36 08/13/24 06:07 Acetaminophen 325 Mg Tablet PO 650 mg Q4H PRN Administration Mild Pain (1-3) or Fever Hydrocodone Bitart/Acetaminophen 1 tab 08/07/24 15:27 08/16/24 00:06 Hydrocodone/Acetaminophen (*Crx) 5-325 Mg Tablet PO 1 tab Q6H PRN Administration Pain Rated 4-6 Alteplase, Recombinant 2 mg 08/15/24 20:45 08/15/24 21:22 Alteplase 2 Mg Vial (Cathflo) IV PUSH 2 mg ONCE PRN Administration Line Occlusion Amoxicillin/Clavulanate Potassium 1 tablet 08/14/24 16:00 08/16/24 06:17 Amoxicillin/Clavulanate K 875-125 Mg Tab PO 1 tablet Q8HR SAL Administration Apixaban 2.5 mg 08/07/24 09:00 Apixaban 2.5 Mg Tablet PO Q12HR SAL Bisacodyl 10 mg 08/08/24 09:00 08/16/24 07:51 Bisacodyl 10 Mg Suppository RECTAL Not Given QAM SAL Bupropion HCl 150 mg 08/07/24 09:00 08/16/24 08:29 Bupropion Hcl Sr (12 Hr) 150 Mg Tab PO 150 mg Q12HR SAL Administration Fluoxetine HCl 20 mg 08/07/24 09:00 08/16/24 08:29 Fluoxetine Hcl 20 Mg Capsule PO 20 mg DAILY SAL Administration Fluticasone Propionate 1 spray 08/07/24 09:00 08/16/24 08:33 Fluticasone Propionate 0.05% Na Spr 16 Gm Btl (*Bkc) NASAL 1 spray DAILY SAL Administration Norepinephrine Bitartrate 8 mg in 250 mls @ 1.875 mls/hr 08/16/24 01:15 08/16/24 08:45 Levophed 8 Mg/D5w 250 Ml IV CONT 1 mcg/min .Q24H SAL 1.88 mls/hr Titration Protocol 1 MCG/MIN Loratadine 10 mg 08/07/24 09:00 08/07/24 10:10 Loratadine 10 Mg Tablet PO Not Given DAILY SAL Ondansetron HCl 4 mg 08/06/24 21:36 08/15/24 13:54 Ondansetron Inj 4 Mg/2 Ml Vial IV PUSH 4 mg Q4H PRN Administration Nausea Ondansetron HCl 4 mg 08/07/24 11:08 Ondansetron Inj 4 Mg/2 Ml Vial IV PUSH ONCE PRN Nausea Pantoprazole Sodium 40 mg 08/08/24 09:00 08/16/24 08:30 Pantoprazole Sodium Iv 40 Mg Vial IV PUSH 40 mg QAM SAL Administration Phenol 1 spray 08/12/24 07:50 Phenol/Sod Pheno [place] (*Bkc) MUCOUS MEM PRN PRN Sore Throat Polyethylene Glycol 17 gm 08/08/24 09:00 08/16/24 07:51 Polyethylene Glycol 3350 17 Gm Powd.Pack PO Not Given QAM [facility] Sodium Chloride 10 ml 08/07/24 06:00 08/16/24 06:17 Central Line Flush IV PUSH 10 ml Q8HR SAL Administration Sodium Chloride 20 ml 08/07/24 02:32 Central Line Flush IV PUSH PRN PRN after blood draws Topiramate 25 mg 08/07/24 09:00 08/16/24 08:29 Topiramate 25 Mg Tablet PO 25 mg Q12HR SAL Administration Radiology Results: ITS Impressions Abdomen Ultrasound 08/06/24 20:18 IMPRESSION: Single lamellated stone within the gallbladder with a sonographic Berry sign. Retrograde Pyelogram 08/07/24 12:44 IMPRESSION: 1. Right internal ureteral stent in expected position. Renal Ultrasound 08/07/24 15:17 IMPRESSION: No definite abnormality seen. Chest/Abdomen/Pelvis CT 08/13/24 14:47 IMPRESSION: 1. Patchy bilateral groundglass opacities in the lungs and favor pneumonia over pulmonary edema with differential also including less likely hypersensitivity pneumonitis or eosinophilic pneumonia. 2. Small bilateral pleural effusions. 3. Cholelithiasis. 4. Bilateral nephrolithiasis more prominent on the right with right internal ureteral stent in expected position. No hydronephrosis. 5. Moderate diverticulosis. 6. Moderate-sized fat-containing umbilical hernia. Chest X-Ray 08/15/24 13:11 Impression: 1: Cardiomegaly with mild interstitial edema. Labs Labs: Laboratory Results - last 24 hr 08/07/24 08/16/24 17:30 06:15 WBC 18.1 H RBC 3.14 L Hgb 10.4 L Hct 30.2 L MCV 96.2 MCH 33.1 MCHC 34.4 RDW 17.0 H Plt Count 305 MPV 9.1 Immature Gran % (Auto) 4.6 H Neut % (Auto) 70.7 Lymph % (Auto) 14.9 L Tyrrell % (Auto) 8.9 H Eos % (Auto) 0.1 Baso % (Auto) 0.8 Lymph # (Auto) 2.69 Tyrrell # (Auto) 1.6 H Eos # (Auto) 0.0 Baso # (Auto) 0.1 Abs Immat Gran (auto) 0.83 H Absolute Neuts (auto) 12.8 H Absolute Nucleated RBC 0.020 H Nucleated RBC % 0.1 Sodium 136 L Potassium 3.7 Chloride 108 H Carbon Dioxide 23 Anion Gap 5 BUN 14 Creatinine 0.68 L Estim Creat Clear Calc 73 Estimated GFR > 60 Glucose 63 L Calcium 9.0 Phosphorus 2.0 L Magnesium 1.7 Total Bilirubin 1.2 AST 60 H ALT 62 H Alkaline Phosphatase 181 H Total Protein 6.0 L Albumin 2.8 L U Abnormal Prot Band 2 Not Reportable U Abnormal Prot Band 3 Not Reportable
--- NOTE | 2024-08-16 11:59 | PCFNICU ---
ICU Rounding Note: Pt current nutrition is Heart Healthy with Rashad BID and Nutritional Ice Cream TID. Last recorded weight is 120 kg, up from 115 kg on admit. Bowel Motility: FMS Labs Reviewed: Glu 63, Cr 0.68, Na 136, Alb 2.8, Hct 30.2, Hgb 10.4 Meds Noted:Rocephin, Protonix, Levophed Skin: Deep Tissue-Saccum. Additional Notes: Patient had pacemaker placed 08/15. Nursing reporting patient did eat breakfast today-eggs, nutritional ice cream and ensure compact. Agree with diet orders. Following daily in ICU rounds. Will monitor weight labs, skin, oral intake, meds every 5 days.
[2024-08-16] MEDS: cefTRIAXone 2 GM/NS 100 ML 2 GM/100 ML BAG IVPB (12:42)
--- NOTE | 2024-08-16 13:57 | P.PNINT_ITS ---
Progress Note: A&P Assessment and Plan (1) Septic shock: Code(s): A41.9 - Sepsis, unspecified organism; R65.21 - Severe sepsis with septic shock Status: Acute Assessment and Plan: 08/06: Patient presented with generalized weakness, hypovolemia, hypotension, leukocytosis, was found to be in septic shock, likely related to UTI and hypovolemia -patient was adequately fluid resuscitated and is off of crystalloids -continue dopamine for bradycardia and hypotension, maintain MAP > 65 mmHg for adequate end organ perfusion and heart rate above 50 -08/06: Blood cultures growing Proteus mirabilis which is solis sensitive -08/10 repeat blood cultures ordered as patient will likely need pacemaker. Results negative till now -patient is afebrile and overall improved but white count still elevated. Repeat CT scan was done -swallow evaluation done to rule out any aspiration. No evidence of aspiration seen on bedside swallow as per speech therapy -antibiotics changed from cefepime to p.o. Augmentin to cover for both urine and pneumonia -08/16: Patient was started on Levophed on 08/15 after getting the permanent pacemaker placed. WBC count has increased, patient remains afebrile. Chest x- ray showed discoid atelectasis. If patient does not improve may have to look again at cholelithiasis which may be causing cholecystitis. -Augmentin to be discontinued, patient started on ceftriaxone -08/16: blood and urine cultures have been obtained 08/14 CT chest abdomen pelvis IMPRESSION: 1. Patchy bilateral groundglass opacities in the lungs and favor pneumonia over pulmonary edema with differential also including less likely hypersensitivity pneumonitis or eosinophilic pneumonia. 2. Small bilateral pleural effusions. 3. Cholelithiasis. 4. Bilateral nephrolithiasis more prominent on the right with right internal ureteral stent in expected position. No hydronephrosis. 5. Moderate diverticulosis. 6. Moderate-sized fat-containing umbilical hernia. (2) UTI (urinary tract infection): Qualifiers: Hematuria presence: with hematuria Urinary tract infection type: acute cystitis Qualified Code(s): N30.01 - Acute cystitis with hematuria Code(s): N39.0 - Urinary tract infection, site not specified Status: Acute Assessment and Plan: UTI could be related to staghorn calculus in the right kidney or cystitis -antibiotics as above (3) Staghorn calculus: Code(s): N20.0 - Calculus of kidney Status: Acute Assessment and Plan: 08/06: CT chest abdomen and pelvis: Findings within the chest suggesting pulmonary hypertension.Staghorn calculus within the right kidney with global enlargement of the right kidney and surrounding inflammatory change. Lamellated stone within the gallbladder without additional abnormality. Punctate foci of air within the bladder with surrounding inflammatory change suggesting cystitis. Fibroid uterus, enlarged for a patient of this age. Nonobstructing fat- containing umbilical hernia. 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 08/07 status post Cystoscopy, right retrograde, right ureteral stent placement 6 Sammar[place] contour, Stafford catheter placement (4) Bradyarrhythmia: Code(s): I49.8 - Other specified cardiac arrhythmias Status: Acute Assessment and Plan: Patient has Moreno cardia which appears to be junctional rhythm. Bradycardia could be related to hypovolemia, but continue to take her home medications amiodarone, Coreg -she continues to be bradycardic and yesterday during physical therapy the heart rate dropped to 20s and 30s movement early. -patient currently on dopamine for bradycardia and hypotension. Continue to titrate -cardiology following and patient will likely need permanent pacemaker -continue to hold amiodarone and AV annmarie blocking agents -status post permanent pacemaker today -rate was increased to 80 as patient was hypotensive with rates in the 60s -remains on Levophed (5) Acute renal failure: Qualifiers: Acute renal failure type: unspecified Qualified Code(s): N17.9 - Acute kidney failure, unspecified Code(s): N17.9 - Acute kidney failure, unspecified Status: Acute Assessment and Plan: Acute renal failure likely related to hypovolemia, decreased oral intake, says septic shock/infection Improved with IV fluids and creatinine trending down and close to normal, urine output improved -continue to monitor urine output, renal function electrolytes -nephrology was consulted from ER -creatinine has normalized (6) Electrolyte imbalance: Code(s): E87.8 - Other disorders of electrolyte and fluid balance, not elsewhere classified Status: Acute Assessment and Plan: Replaced magnesium and phosphorus (7) Atrial fibrillation: Qualifiers: Atrial fibrillation type: paroxysmal Qualified Code(s): I48.0 - Paroxysmal atrial fibrillation Code(s): I48.91 - Unspecified atrial fibrillation Status: Acute Assessment and Plan: Patient has a history of atrial fibrillation on Eliquis at home. She takes amiodarone and Coreg at home -currently bradycardic and hypotensive -continue to hold home medications -hold Eliquis as patient has cystoscopy and has hematuria and will likely need permanent pacemaker -discussed with cardiology [employer] Haven Celeste, regarding restarting anticoagulation, stated that once the patient comes to the office for her incision check, it is at at that time the staffing analyst will decide, (8) Cholelithiasis without cholecystitis: Code(s): K80.20 - Calculus of gallbladder without cholecystitis without obstruction Status: Acute Assessment and Plan: Ultrasound shows large single gallbladder stone. Radiologic Berry sign was positive. No other changes of cholecystitis or obstruction was seen. Patient was evaluated by general surgery and recommended conservative management at this time. No plan for surgical intervention (9) Transaminitis: Code(s): R74.01 - Elevation of levels of liver transaminase levels Status: Acute Assessment and Plan: Multifactorial. Improved Monitor. (10) Hematuria: Code(s): R31.9 - Hematuria, unspecified Status: Acute Assessment and Plan: has resolved. Anticoagulation still on hold per cardiology (11) Pneumonia: Code(s): J18.9 - Pneumonia, unspecified organism Status: Acute Assessment and Plan: see above Plan DVT prophylaxis: Eliquis currently on hold per Cardiology post pacemaker placement Stress ulcer prophylaxis: Protonix Nutrition: Heart healthy Diet with supplements Code Status: Do not resuscitate Critical Care Time Spent: 34 minutes Discussed with patient's spouse at bedside and the patient and updated them with patient's condition and plan of care. I answered all the question Due to a high probability of clinically significant, life threatening deterioration, the patient required my highest level of preparedness to intervene emergently and I personally spent this critical care time directly and personally managing the patient. This critical care time included obtaining a history; examining the patient; pulse oximetry; ordering and review of studies; arranging urgent treatment with development of a management plan; evaluation of patient's response to treatment; frequent reassessment; and discussions with other providers. It was exclusive of separately billable procedures and treating other patients and teaching time. Please see Assessment and Plan section and the rest of the note for further information on patient assessment and treatment This dictation may have been done utilizing a voice recognition system. Attempts have been made to correct errors. However, there may be uncorrected grammatical, spelling, and recognitions errors present. Subjective Date/time seen: 08/16/24 13:57 Interval history: Reason for consult, septic shock likely related to pneumonia, UTI, staghorn calculus status post right ureteral stent placement, Moreno arrhythmia requiring dopamine infusion, acute kidney injury 08/15: Permanent pacemaker 08/16/2024: Patient seen and examined the ICU, is awake, alert, pleasant, in no acute distress. Permanent pacemaker was inserted yesterday, rate on the pacemaker was increased from 60 to 80 because she was hypotensive in the 80s. -urine output has been adequate, patient is afebrile. WBC count increased this more -patient on Levophed which was started yesterday after ppm was placed due to hypotension Review of Systems Review of Systems: All systems reviewed & are unremarkable except as noted in HPI and below Exam Narrative: General: Pleasant female in no acute distress HEENT:? Pupils equal and reactive, sclera is clear, moist oral mucosa, some Neck:? Supple Respiratory:? Clear to auscultation bilaterally, decreased breath sounds at bases, adequate air entry, no wheeze, left-sided BiPAP and pacemaker dressing in place Cardiac:? Paced rhythm, Abdomen:? Soft, obese, tender to palpation around the umbilicus, normoactive bowel sounds Extremities:? Trace edema, palpable pedal pulses Neuro:? Patient is awake, alert, oriented x 3 Skin:? Warm and dry Psych:? Flat affect Objective Data Vital Signs Vital Signs: Vital Signs - 24 hr 08/15/24 14:00 08/15/24 14:00 08/15/24 14:06 Temperature 98.4 F Pulse Rate 60 80 80 Respiratory Rate 18 Blood Pressure 108/86 108/86 Pulse Oximetry 97 Oxygen Delivery Oxygen Flow Rate 08/15/24 16:00 08/15/24 16:00 08/15/24 16:00 Temperature Pulse Rate 81 81 Respiratory Rate Blood Pressure 107/63 Pulse Oximetry 97 Oxygen Delivery Nasal Cannula Oxygen Flow Rate 2 08/15/24 18:00 08/15/24 18:00 08/15/24 18:07 Temperature Pulse Rate 81 81 82 Respiratory Rate 16 Blood Pressure 97/50 L 97/50 L Pulse Oximetry 100 Oxygen Delivery Oxygen Flow Rate 08/15/24 20:00 08/15/24 20:00 08/15/24 20:00 Temperature 97.4 F L Pulse Rate 84 84 84 Respiratory Rate 24 H Blood Pressure 101/48 L 101/48 L Pulse Oximetry 97 Oxygen Delivery Oxygen Flow Rate 08/15/24 20:00 08/15/24 22:00 08/15/24 22:00 Temperature Pulse Rate 82 82 Respiratory Rate 18 Blood Pressure 99/40 L Pulse Oximetry 100 100 Oxygen Delivery Nasal Cannula Oxygen Flow Rate 1 08/16/24 00:00 08/16/24 00:00 08/16/24 00:00 Temperature 97.5 F L Pulse Rate 86 86 Respiratory Rate 16 Blood Pressure 93/48 L Pulse Oximetry 99 100 Oxygen Delivery Nasal Cannula Oxygen Flow Rate 1 08/16/24 01:30 08/16/24 02:00 08/16/24 02:00 Temperature Pulse Rate 83 82 82 Respiratory Rate 16 Blood Pressure 82/57 L 86/73 L Pulse Oximetry 100 Oxygen Delivery Oxygen Flow Rate 08/16/24 02:00 08/16/24 04:00 08/16/24 04:00 Temperature Pulse Rate 82 82 Respiratory Rate Blood Pressure 86/73 L Pulse Oximetry 98 Oxygen Delivery Nasal Cannula Oxygen Flow Rate 1 08/16/24 04:00 08/16/24 04:00 08/16/24 06:00 Temperature 97.5 F L Pulse Rate 82 82 82 Respiratory Rate 24 H Blood Pressure 116/51 L 116/51 L 113/49 L Pulse Oximetry 98 Oxygen Delivery Oxygen Flow Rate 08/16/24 06:00 08/16/24 06:00 08/16/24 07:00 Temperature Pulse Rate 81 97 83 Respiratory Rate 13 Blood Pressure 113/49 L 94/38 L Pulse Oximetry 97 Oxygen Delivery Oxygen Flow Rate 08/16/24 07:15 08/16/24 07:30 08/16/24 07:45 Temperature Pulse Rate 82 82 82 Respiratory Rate Blood Pressure 114/46 L 116/49 L 125/49 L Pulse Oximetry Oxygen Delivery Oxygen Flow Rate 08/16/24 08:00 08/16/24 08:00 08/16/24 08:00 Temperature 97.6 F Pulse Rate 81 81 83 Respiratory Rate 13 13 Blood Pressure 99/45 L 99/45 L Pulse Oximetry 98 98 Oxygen Delivery Room Air Oxygen Flow Rate 08/16/24 08:00 08/16/24 08:15 08/16/24 08:30 Temperature Pulse Rate 81 80 81 Respiratory Rate Blood Pressure 100/39 L 102/43 L Pulse Oximetry Oxygen Delivery Oxygen Flow Rate 08/16/24 08:45 08/16/24 09:00 08/16/24 09:15 Temperature Pulse Rate 83 83 82 Respiratory Rate Blood Pressure 102/48 L 111/45 L 95/43 L Pulse Oximetry Oxygen Delivery Oxygen Flow Rate 08/16/24 09:30 08/16/24 09:45 08/16/24 10:00 Temperature Pulse Rate 82 83 81 Respiratory Rate Blood Pressure 91/39 L 91/41 L 92/41 L Pulse Oximetry Oxygen Delivery Oxygen Flow Rate 08/16/24 10:00 08/16/24 10:00 08/16/24 10:15 Temperature Pulse Rate 81 81 82 Respiratory Rate 22 H Blood Pressure 92/41 L 106/49 L Pulse Oximetry 93 Oxygen Delivery Oxygen Flow Rate 08/16/24 10:30 08/16/24 10:45 08/16/24 11:01 Temperature Pulse Rate 84 82 83 Respiratory Rate Blood Pressure 94/42 L 95/41 L 98/46 L Pulse Oximetry Oxygen Delivery Oxygen Flow Rate Intake/Output Intake/Output: Intake & Output 08/13/24 08/14/24 08/15/24 08/16/24 23:59 23:59 23:59 23:59 Intake Total 1287.2 1683.3 654.6 1515.2 Output Total 9304 255 3848 150 Balance 212.2 1083.3 -945.4 1365.2 Meds/Results Medications: Active Medications Generic Name Dose Route Start Last Admin Trade Name Zaheerq PRN Reason Stop Dose Admin Acetaminophen 650 mg 08/06/24 21:36 08/13/24 06:07 Acetaminophen 325 Mg Tablet PO 650 mg Q4H PRN Administration Mild Pain (1-3) or Fever Hydrocodone Bitart/Acetaminophen 1 tab 08/07/24 15:27 08/16/24 00:06 Hydrocodone/Acetaminophen (*Crx) 5-325 Mg Tablet PO 1 tab Q6H PRN Administration Pain Rated 4-6 Alteplase, Recombinant 2 mg 08/15/24 20:45 08/15/24 21:22 Alteplase 2 Mg Vial (Cathflo) IV PUSH 2 mg ONCE PRN Administration Line Occlusion Apixaban 2.5 mg 08/07/24 09:00 Apixaban 2.5 Mg Tablet PO Q12HR SAL Bisacodyl 10 mg 08/16/24 11:01 Bisacodyl 10 Mg Suppository RECTAL QAM PRN Constipation Bupropion HCl 150 mg 08/07/24 09:00 08/16/24 08:29 Bupropion Hcl Sr (12 Hr) 150 Mg Tab PO 150 mg Q12HR SAL Administration Fluoxetine HCl 20 mg 08/07/24 09:00 08/16/24 08:29 Fluoxetine Hcl 20 Mg Capsule PO 20 mg DAILY SLA Administration Fluticasone Propionate 1 spray 08/07/24 09:00 08/16/24 08:33 Fluticasone Propionate 0.05% Na Spr 16 Gm Btl (*Bkc) NASAL 1 spray DAILY SAL Administration Norepinephrine Bitartrate 8 mg in 250 mls @ 11.25 mls/hr 08/16/24 01:15 08/16/24 11:01 Levophed 8 Mg/D5w 250 Ml IV CONT 6 mcg/min .[id number] SAL 11.25 mls/hr Titration Protocol 6 MCG/MIN Ceftriaxone Sodium 2 gm in 100 mls @ 200 mls/hr 08/16/24 11:00 08/16/24 12:42 Rocephin 2 Gm/Ns 100 Ml IVPB 200 mls/hr Q24H SAL Administration Loratadine 10 mg 08/07/24 09:00 08/07/24 10:10 Loratadine 10 Mg Tablet PO Not Given DAILY SAL Ondansetron HCl 4 mg 08/06/24 21:36 08/15/24 13:54 Ondansetron Inj 4 Mg/2 Ml Vial IV PUSH 4 mg Q4H PRN Administration Nausea Ondansetron HCl 4 mg 08/07/24 11:08 Ondansetron Inj 4 Mg/2 Ml Vial IV PUSH ONCE PRN Nausea Pantoprazole Sodium 40 mg 08/08/24 09:00 08/16/24 08:30 Pantoprazole Sodium Iv 40 Mg Vial IV PUSH 40 mg QAM SAL Administration Phenol 1 spray 08/12/24 07:50 Phenol/Sod Pheno Linn Brandt (*Bkc) MUCOUS MEM PRN PRN Sore Throat Polyethylene Glycol 17 gm 08/16/24 11:01 Polyethylene Glycol 3350 17 Gm Powd.Pack PO QAM PRN Constipation Sodium Chloride 10 ml 08/07/24 06:00 08/16/24 06:17 Central Line Flush IV PUSH 10 ml Q8HR SAL Administration Sodium Chloride 20 ml 08/07/24 02:32 Central Line Flush IV PUSH PRN PRN after blood draws Topiramate 25 mg 08/07/24 09:00 08/16/24 08:29 Topiramate 25 Mg Tablet PO 25 mg Q12HR SAL Administration Radiology Results: ITS Impressions Abdomen Ultrasound 08/06/24 20:18 IMPRESSION: Single lamellated stone within the gallbladder with a sonographic Berry sign. Retrograde Pyelogram 08/07/24 12:44 IMPRESSION: 1. Right internal ureteral stent in expected position. Renal Ultrasound 08/07/24 15:17 IMPRESSION: No definite abnormality seen. Chest/Abdomen/Pelvis CT 08/13/24 14:47 IMPRESSION: 1. Patchy bilateral groundglass opacities in the lungs and favor pneumonia over pulmonary edema with differential also including less likely hypersensitivity pneumonitis or eosinophilic pneumonia. 2. Small bilateral pleural effusions. 3. Cholelithiasis. 4. Bilateral nephrolithiasis more prominent on the right with right internal ureteral stent in expected position. No hydronephrosis. 5. Moderate diverticulosis. 6. Moderate-sized fat-containing umbilical hernia. Chest X-Ray 08/16/24 12:51 IMPRESSION: 1. Scattered linear discoid atelectasis in the right mid to lower and left lower lung zones. Labs Labs: Laboratory Results - last 24 hr 08/16/24 06:15 WBC 18.1 H RBC 3.14 L Hgb 10.4 L Hct 30.2 L MCV 96.2 MCH 33.1 MCHC 34.4 RDW 17.0 H Plt Count 305 MPV 9.1 Immature Gran % (Auto) 4.6 H Neut % (Auto) 70.7 Lymph % (Auto) 14.9 L [place] % (Auto) 8.9 H Eos % (Auto) 0.1 Baso % (Auto) 0.8 Lymph # (Auto) 2.69 [place] # (Auto) 1.6 H Eos # (Auto) 0.0 Baso # (Auto) 0.1 Abs Immat Gran (auto) 0.83 H Absolute Neuts (auto) 12.8 H Absolute Nucleated RBC 0.020 H Nucleated RBC % 0.1 Sodium 136 L Potassium 3.7 Chloride 108 H Carbon Dioxide 23 Anion Gap 5 BUN 14 Creatinine 0.68 L Estim Creat Clear Calc 73 Estimated GFR > 60 Glucose 63 L Calcium 9.0 Phosphorus 2.0 L Magnesium 1.7 Total Bilirubin 1.2 AST 60 H ALT 62 H Alkaline Phosphatase 181 H Total Protein 6.0 L Albumin 2.8 L Quality VTE Prophylaxis VTE prophylaxis: mechanical ordered and pharmacologic ordered
--- NOTE | 2024-08-16 15:17 | PCPTNOTE ---
PT held this afternoon by BREA Varela due to patient receiving medication for low BP.
[2024-08-16 16:00] LABS: Add Urine Microscopic? YES; Appearance Urine Cloudy (Clear); Bacteria Urine None Seen /hpf; Bilirubin Urine Negative (Negative); Blood Urine 2+ (Negative); Color Urine Yellow (Yellow); Glucose Urine UA Negative (Negative); Hyaline Casts Urine Present /lpf; Ketones Urine Negative (Negative); Leukocyte Esterase Ur 2+ LEU/UL (Negative); Need Manual Microscopic Reviewed; Nitrate Urine Negative (Negative); Protein Urine 2+ mg/dL (Negative); RBC Urine >100 /hpf (0-2); Specific Grav Ur 1.017 (1.001-1.035); Squamous Epithelial Cell Urine Occasional /hpf (Few); Urobilinogen Urine 0.2 mg/dL (<2.0); WBC Urine 21-50 /hpf (0-3); pH Urine 6.5 (5.0-9.0)
[2024-08-16 16:01] LABS: Transitional Epi Cells Urine Rare /hpf (None Seen)
[2024-08-17] VITALS (15 sets, daily range): BP systolic 96–126; BP diastolic 51–97; PULSE 82–89; RESP 16–26; TEMP 36.7; O2SAT 95–100
[2024-08-17] MEDS: HYDROcodone/acetaminophen (*CRX) 5-325 MG TABLET 1 TAB PO ×2 (00:07→21:16)
[2024-08-17 06:21] LABS: Hemoglobin 9.9 g/dL (12.0-15.0); Mean Corpuscular HGB Conc 34.1 g/dl (32-36); Mean Corpuscular Hemoglobin 33.1 pg (26-34); Mean Platelet Volume 8.9 fl (7.4-10.4); Platelet Count Result 261 k/mm3 (150-375); Red Blood Count 2.99 M/mm3 (4.2-5.4); Red Cell Distribution Width 17.2 % (11.5-14.5); White Blood Count 13.7 K/mm3 (4.5-10.0)
[2024-08-17 06:30] LABS: Lactic Acid Reflex 0.7 mmol/L (0.7-2.0)
[2024-08-17 06:32] LABS: Alanine Aminotransferase 52 U/L (6-35); Albumin Level 2.8 g/dL (3.5-5.1); Alkaline Phosphatase 184 U/L (38-126); Anion Gap 4 mmol/L (4-12); Aspartate Amino Transferase 65 U/L (14-36); Blood Urea Nitrogen 13 mg/dL (7-17); Calcium 8.7 mg/dL (8.4-10.2); Carbon Dioxide 23 mmol/L (22-30); Chloride 107 mmol/L (98-107); Estimated CRCL calculation 67 ml/min; Estimated Glomerular Filt Rate > 60; Glucose 78 mg/dL (65-110); Magnesium 1.9 mg/dL (1.6-2.3); Phosphorus 1.8 mg/dL (2.5-4.5); Potassium 3.7 mmol/L (3.4-5.0); Sodium 134 mmol/L (137-145)
[2024-08-17] MEDS: CENTRAL LINE FLUSH 10 ML IV PUSH ×3 (06:50→21:19)
--- NOTE | 2024-08-17 08:12 | PCOTNOTE ---
Therapy orders were cancelled by physician due to new bedrest orders.
--- NOTE | 2024-08-17 08:56 | PCPTNOTE ---
D/C PT orders received due to decline in medical status.
[2024-08-17] MEDS: ACETAMINOPHEN 325 MG TABLET 650 MG PO (09:00)
[2024-08-17] MEDS: FLUoxetine HCL 20 MG CAPSULE PO (09:00)
[2024-08-17] MEDS: POTASSIUM/PHOSPHORUS/SODIUM 1.5 GM PACKET 1 PACKET PO (09:00)
[2024-08-17] MEDS: TOPIRAMATE 25 MG TABLET PO ×2 (09:00→21:15)
[2024-08-17] MEDS: PANTOPRAZOLE SODIUM IV 40 MG VIAL IV PUSH (09:00)
[2024-08-17] MEDS: buPROPion HCL SR (12 HR) 150 MG TAB PO ×2 (09:00→21:15)
[2024-08-17] MEDS: FLUTICASONE PROPIONATE 0.05% NA SPR 16 GM BTL (*BKC) 1 SPRAY NASAL (09:01)
[2024-08-17] MEDS: cefTRIAXone 2 GM/NS 100 ML 2 GM/100 ML BAG IVPB (11:41)
--- NOTE | 2024-08-17 12:08 | PCNFU ---
Nutrition Follow-Up Complete: Increased Protein needs as related to wounds as evidenced by pressure ulcers reported. Goal: Meet estimated nutritional needs. Patient has limited progress towards goal. We will continue current goal. Pt current nutrition is Heart Healthy with diet supplements. Last recorded weight is 121.5 kg, up from 115 kg on admit. Bowel Motility: +BM reported 08/17 Labs Reviewed:Glu 63,Cr 0.68, Alb 2.8, Na 134, Hct 29.0, Hgb 9.9 Meds Noted:Rocephin, Protonix, Miralax. Skin:Deep Tissue-sacrum Additional Notes: Patient had Pacemaker 08/15. Diet order heart healthy diet. Oral Intake has been poor. She will take diet supplements of Ensure Compact BID (220 kcal/9 g protein) and Nutritional Ice Cream (300 kcal/9 gm protein). PO intake is encouraged. Agree with diet orders. Will monitor weight labs, skin, oral intake, meds every 5 days.
--- NOTE | 2024-08-17 13:24 | WPDINTPN ---
Progress Note: A&P Assessment and Plan (1) Septic shock: Code(s): A41.9 - Sepsis, unspecified organism; R65.21 - Severe sepsis with septic shock Status: Acute Assessment and Plan: 08/06: Patient presented with generalized weakness, hypovolemia, hypotension, leukocytosis, was found to be in septic shock, likely related to UTI and hypovolemia -patient was adequately fluid resuscitated and is off of crystalloids -continue dopamine for bradycardia and hypotension, maintain MAP > 65 mmHg for adequate end organ perfusion and heart rate above 50 -08/06: Blood cultures growing Proteus mirabilis which is solis sensitive -08/10 repeat blood cultures ordered as patient will likely need pacemaker. Results negative till now -patient is afebrile and overall improved but white count still elevated. Repeat CT scan was done -swallow evaluation done to rule out any aspiration. No evidence of aspiration seen on bedside swallow as per speech therapy -antibiotics changed from cefepime to p.o. Augmentin to cover for both urine and pneumonia -08/16: Patient was started on Levophed on 08/15 after getting the permanent pacemaker placed. WBC count has increased, patient remains afebrile. Chest x-ray showed discoid atelectasis. If patient does not improve may have to look again at cholelithiasis which may be causing cholecystitis. -Augmentin to be discontinued, patient started on ceftriaxone (08/16) -08/16: Blood cultures obtained and pending -08/16: Urine cultures have been obtained and pending 08/14 CT chest abdomen pelvis IMPRESSION: 1. Patchy bilateral groundglass opacities in the lungs and favor pneumonia over pulmonary edema with differential also including less likely hypersensitivity pneumonitis or eosinophilic pneumonia. 2. Small bilateral pleural effusions. 3. Cholelithiasis. 4. Bilateral nephrolithiasis more prominent on the right with right internal ureteral stent in expected position. No hydronephrosis. 5. Moderate diverticulosis. 6. Moderate-sized fat-containing umbilical hernia. (2) UTI (urinary tract infection): Qualifiers: Hematuria presence: with hematuria Urinary tract infection type: acute cystitis Qualified Code(s): N30.01 - Acute cystitis with hematuria Code(s): N39.0 - Urinary tract infection, site not specified Status: Acute Assessment and Plan: UTI could be related to staghorn calculus in the right kidney or cystitis -antibiotics as above (3) Staghorn calculus: Code(s): N20.0 - Calculus of kidney Status: Acute Assessment and Plan: 08/06: CT chest abdomen and pelvis: Findings within the chest suggesting pulmonary hypertension.Staghorn calculus within the right kidney with global enlargement of the right kidney and surrounding inflammatory change. Lamellated stone within the gallbladder without additional abnormality. Punctate foci of air within the bladder with surrounding inflammatory change suggesting cystitis. Fibroid uterus, enlarged for a patient of this age. Nonobstructing fat-containing umbilical hernia. 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 08/07 status post Cystoscopy, right retrograde, right ureteral stent placement 6 Italian contour, Stafford catheter placement (4) Bradyarrhythmia: Code(s): I49.8 - Other specified cardiac arrhythmias Status: Acute Assessment and Plan: Patient has Moreno cardia which appears to be junctional rhythm. Bradycardia could be related to hypovolemia, but continue to take her home medications amiodarone, Coreg -she continues to be bradycardic and yesterday during physical therapy the heart rate dropped to 20s and 30s movement early. -patient currently on dopamine for bradycardia and hypotension. Continue to titrate -cardiology following and patient will likely need permanent pacemaker -continue to hold amiodarone and AV annmarie blocking agents -status post permanent pacemaker today -rate was increased to 80 as patient was hypotensive with rates in the 60s -off Levophed since the morning of 08/17 (5) Acute renal failure: Qualifiers: Acute renal failure type: unspecified Qualified Code(s): N17.9 - Acute kidney failure, unspecified Code(s): N17.9 - Acute kidney failure, unspecified Status: Acute Assessment and Plan: Acute renal failure likely related to hypovolemia, decreased oral intake, says septic shock/infection Improved with IV fluids and creatinine trending down and close to normal, urine output improved -continue to monitor urine output, renal function electrolytes -nephrology was consulted from ER -creatinine has normalized (6) Electrolyte imbalance: Code(s): E87.8 - Other disorders of electrolyte and fluid balance, not elsewhere classified Status: Acute Assessment and Plan: Replace phosphorus (7) Atrial fibrillation: Qualifiers: Atrial fibrillation type: paroxysmal Qualified Code(s): I48.0 - Paroxysmal atrial fibrillation Code(s): I48.91 - Unspecified atrial fibrillation Status: Acute Assessment and Plan: Patient has a history of atrial fibrillation on Eliquis at home. She takes amiodarone and Coreg at home -currently bradycardic and hypotensive -continue to hold home medications -hold Eliquis as patient has cystoscopy and has hematuria and will likely need permanent pacemaker -discussed with cardiology [employer] Haven Celeste, regarding restarting anticoagulation, stated that once the patient comes to the office for her incision check, it is at at that time the distribution supervisor will decide, (8) Cholelithiasis without cholecystitis: Code(s): K80.20 - Calculus of gallbladder without cholecystitis without obstruction Status: Acute Assessment and Plan: Ultrasound shows large single gallbladder stone. Radiologic Berry sign was positive. No other changes of cholecystitis or obstruction was seen. Patient was evaluated by general surgery and recommended conservative management at this time. No plan for surgical intervention (9) Transaminitis: Code(s): R74.01 - Elevation of levels of liver transaminase levels Status: Acute Assessment and Plan: Multifactorial. Improved Monitor. (10) Hematuria: Code(s): R31.9 - Hematuria, unspecified Status: Acute Assessment and Plan: has resolved. Anticoagulation still on hold per cardiology (11) Pneumonia: Code(s): J18.9 - Pneumonia, unspecified organism Status: Acute Assessment and Plan: see above Plan DVT prophylaxis: Eliquis currently on hold per Cardiology post pacemaker placement Stress ulcer prophylaxis: Protonix Nutrition: Heart healthy Diet with supplements Code Status: Do not resuscitate Critical Care Time Spent: 32 minutes Discussed with patient's spouse at bedside and the patient and updated them with patient's condition and plan of care. I answered all the question Due to a high probability of clinically significant, life threatening deterioration, the patient required my highest level of preparedness to intervene emergently and I personally spent this critical care time directly and personally managing the patient. This critical care time included obtaining a history; examining the patient; pulse oximetry; ordering and review of studies; arranging urgent treatment with development of a management plan; evaluation of patient's response to treatment; frequent reassessment; and discussions with other providers. It was exclusive of separately billable procedures and treating other patients and teaching time. Please see Assessment and Plan section and the rest of the note for further information on patient assessment and treatment This dictation may have been done utilizing a voice recognition system. Attempts have been made to correct errors. However, there may be uncorrected grammatical, spelling, and recognitions errors present. Subjective Date/time seen: 08/17/24 13:24 Interval history: Reason for consult, septic shock likely related to pneumonia, UTI, staghorn calculus status post right ureteral stent placement, Bradyarrhythmia requiring dopamine infusion, acute kidney injury 08/15: Permanent pacemaker 08/17/2024: Patient seen and examined the ICU, is awake, alert, pleasant, in no acute distress. States she feels much better this morning. She has been off Levophed since early this morning. Currently being paced. Urine as put has been low, afebrile. WBC count trending down Review of Systems Review of Systems: All systems reviewed & are unremarkable except as noted in HPI and below Exam Narrative: General: Pleasant female in no acute distress HEENT:? Pupils equal and reactive, sclera is clear, moist oral mucosa, some Neck:? Supple Respiratory:? Clear to auscultation bilaterally, decreased breath sounds at bases, adequate air entry, no wheeze, pacemaker dressing in place Cardiac:? Paced rhythm, Abdomen:? Soft, morbid obesity, tender to palpation around the umbilicus, normoactive bowel sounds Extremities:? Trace edema, palpable pedal pulses Neuro:? Patient is awake, alert, oriented x 3 Skin:? Warm and dry Psych:? Flat affect Objective Data Vital Signs Vital Signs: Vital Signs - 24 hr 08/16/24 14:00 08/16/24 14:00 08/16/24 14:00 Temperature Pulse Rate 92 92 89 Respiratory Rate 23 H Blood Pressure 120/53 L 106/56 L Pulse Oximetry 99 Oxygen Delivery Oxygen Flow Rate Fraction of Inspired Oxygen 08/16/24 15:00 08/16/24 16:00 08/16/24 16:00 Temperature Pulse Rate 84 92 92 Respiratory Rate 23 H Blood Pressure 105/51 L Pulse Oximetry 99 Oxygen Delivery Room Air Oxygen Flow Rate Fraction of Inspired Oxygen 21 08/16/24 16:00 08/16/24 16:00 08/16/24 17:00 Temperature Pulse Rate 92 87 90 Respiratory Rate 23 H Blood Pressure 120/53 L 120/53 L 97/53 L Pulse Oximetry 99 Oxygen Delivery Oxygen Flow Rate Fraction of Inspired Oxygen 08/16/24 18:00 08/16/24 18:00 08/16/24 18:00 Temperature Pulse Rate 91 87 89 Respiratory Rate 18 Blood Pressure 108/53 L 108/53 L Pulse Oximetry 96 Oxygen Delivery Oxygen Flow Rate Fraction of Inspired Oxygen 08/16/24 20:00 08/16/24 20:00 08/16/24 20:00 Temperature Pulse Rate 89 98 Respiratory Rate Blood Pressure 131/64 Pulse Oximetry 100 Oxygen Delivery Nasal Cannula Oxygen Flow Rate 2 Fraction of Inspired Oxygen 08/16/24 20:00 08/16/24 22:00 08/16/24 22:00 Temperature 97.5 F L Pulse Rate 87 89 89 Respiratory Rate 17 Blood Pressure 127/70 107/87 107/87 Pulse Oximetry 100 Oxygen Delivery Oxygen Flow Rate Fraction of Inspired Oxygen 08/16/24 22:00 08/16/24 22:00 08/16/24 22:28 Temperature Pulse Rate 87 87 88 Respiratory Rate 16 18 Blood Pressure 107/87 123/63 Pulse Oximetry 98 99 Oxygen Delivery Oxygen Flow Rate Fraction of Inspired Oxygen 08/16/24 23:47 08/17/24 00:00 08/17/24 00:00 Temperature 98.0 F Pulse Rate 98 82 Respiratory Rate 18 Blood Pressure 122/59 L 123/58 L Pulse Oximetry 98 99 Oxygen Delivery Nasal Cannula Oxygen Flow Rate 2 Fraction of Inspired Oxygen 08/17/24 00:00 08/17/24 00:00 08/17/24 02:00 Temperature Pulse Rate 89 85 88 Respiratory Rate 18 Blood Pressure 123/58 L 123/62 Pulse Oximetry 99 Oxygen Delivery Oxygen Flow Rate Fraction of Inspired Oxygen 08/17/24 02:00 08/17/24 02:00 08/17/24 04:00 Temperature Pulse Rate 88 86 Respiratory Rate 22 H Blood Pressure 114/64 Pulse Oximetry 98 98 Oxygen Delivery Nasal Cannula Oxygen Flow Rate 2 Fraction of Inspired Oxygen 08/17/24 04:00 08/17/24 04:00 08/17/24 04:00 Temperature Pulse Rate 86 88 86 Respiratory Rate 22 H Blood Pressure 114/64 114/64 Pulse Oximetry 98 Oxygen Delivery Oxygen Flow Rate Fraction of Inspired Oxygen 08/17/24 05:00 08/17/24 06:00 08/17/24 06:00 Temperature Pulse Rate 87 86 86 Respiratory Rate Blood Pressure 107/60 109/61 Pulse Oximetry Oxygen Delivery Oxygen Flow Rate Fraction of Inspired Oxygen 08/17/24 06:00 08/17/24 08:00 08/17/24 08:00 Temperature 98.1 F Pulse Rate 86 87 87 Respiratory Rate 23 H 21 H Blood Pressure 109/61 103/56 L 103/56 L Pulse Oximetry 97 100 Oxygen Delivery Oxygen Flow Rate Fraction of Inspired Oxygen 08/17/24 08:00 08/17/24 08:00 08/17/24 10:00 Temperature Pulse Rate 87 84 Respiratory Rate Blood Pressure Pulse Oximetry 100 Oxygen Delivery Nasal Cannula Oxygen Flow Rate 2 Fraction of Inspired Oxygen 08/17/24 10:00 08/17/24 10:00 08/17/24 12:00 Temperature Pulse Rate 88 88 87 Respiratory Rate 26 H Blood Pressure 105/55 L 105/55 L 103/67 Pulse Oximetry 99 Oxygen Delivery Oxygen Flow Rate Fraction of Inspired Oxygen 08/17/24 12:00 Temperature 98.1 F Pulse Rate 87 Respiratory Rate 22 H Blood Pressure 103/67 Pulse Oximetry 100 Oxygen Delivery Oxygen Flow Rate Fraction of Inspired Oxygen Intake/Output Intake/Output: Intake & Output 08/14/24 08/15/24 08/16/24 08/17/24 23:59 23:59 23:59 23:59 Intake Total 1683.3 654.6 2335.4 510.8 Output Total 600 1600 150 200 Balance 1083.3 -945.4 2185.4 310.8 Meds/Results Medications: Active Medications Generic Name Dose Route Start Last Admin Trade Name Freq PRN Reason Stop Dose Admin Acetaminophen 650 mg 08/06/24 21:36 08/17/24 09:00 Acetaminophen 325 Mg Tablet PO 650 mg Q4H PRN Administration Mild Pain (1-3) or Fever Hydrocodone Bitart/Acetaminophen 1 tab 08/07/24 15:27 08/17/24 00:07 Hydrocodone/Acetaminophen (*Crx) 5-325 Mg Tablet PO 1 tab Q6H PRN Administration Pain Rated 4-6 Alteplase, Recombinant 2 mg 08/15/24 20:45 08/15/24 21:22 Alteplase 2 Mg Vial (Cathflo) IV PUSH 2 mg ONCE PRN Administration Line Occlusion Apixaban 2.5 mg 08/07/24 09:00 Apixaban 2.5 Mg Tablet PO Q12HR SAL Bisacodyl 10 mg 08/16/24 11:01 Bisacodyl 10 Mg Suppository RECTAL QAM PRN Constipation Bupropion HCl 150 mg 08/07/24 09:00 08/17/24 09:00 Bupropion Hcl Sr (12 Hr) 150 Mg Tab PO 150 mg Q12HR SAL Administration Fluoxetine HCl 20 mg 08/07/24 09:00 08/17/24 09:00 Fluoxetine Hcl 20 Mg Capsule PO 20 mg DAILY SAL Administration Fluticasone Propionate 1 spray 08/07/24 09:00 08/17/24 09:01 Fluticasone Propionate 0.05% Na Spr 16 Gm Btl (*Bkc) NASAL 1 spray DAILY SAL Administration Norepinephrine Bitartrate 8 mg in 250 mls @ 0 mls/hr 08/16/24 01:15 08/17/24 12:00 Levophed 8 Mg/D5w 250 Ml IV CONT 0 mcg/min .Q0M SAL 0 mls/hr Titration Protocol Ceftriaxone Sodium 2 gm in 100 mls @ 200 mls/hr 08/16/24 11:00 08/17/24 12:15 Rocephin 2 Gm/Ns 100 Ml IVPB Infused Q24H SAL Infusion Loratadine 10 mg 08/07/24 09:00 08/07/24 10:10 Loratadine 10 Mg Tablet PO Not Given DAILY SAL Ondansetron HCl 4 mg 08/06/24 21:36 08/15/24 13:54 Ondansetron Inj 4 Mg/2 Ml Vial IV PUSH 4 mg Q4H PRN Administration Nausea Ondansetron HCl 4 mg 08/07/24 11:08 Ondansetron Inj 4 Mg/2 Ml Vial IV PUSH ONCE PRN Nausea Pantoprazole Sodium 40 mg 08/08/24 09:00 08/17/24 09:00 Pantoprazole Sodium Iv 40 Mg Vial IV PUSH 40 mg QAM SAL Administration Phenol 1 spray 08/12/24 07:50 Phenol/Sod Pheno [place]t (*Bkc) MUCOUS MEM PRN PRN Sore Throat Polyethylene Glycol 17 gm 08/16/24 11:01 Polyethylene Glycol 3350 17 Gm Powd.Pack PO QAM PRN Constipation Sodium Chloride 10 ml 08/07/24 06:00 08/17/24 13:17 Central Line Flush IV PUSH 10 ml Q8HR SAL Administration Sodium Chloride 20 ml 08/07/24 02:32 Central Line Flush IV PUSH PRN PRN after blood draws Topiramate 25 mg 08/07/24 09:00 08/17/24 09:00 Topiramate 25 Mg Tablet PO 25 mg Q12HR SAL Administration Radiology Results: ITS Impressions Abdomen Ultrasound 08/06/24 20:18 IMPRESSION: Single lamellated stone within the gallbladder with a sonographic Berry sign. Retrograde Pyelogram 08/07/24 12:44 IMPRESSION: 1. Right internal ureteral stent in expected position. Renal Ultrasound 08/07/24 15:17 IMPRESSION: No definite abnormality seen. Chest/Abdomen/Pelvis CT 08/13/24 14:47 IMPRESSION: 1. Patchy bilateral groundglass opacities in the lungs and favor pneumonia over pulmonary edema with differential also including less likely hypersensitivity pneumonitis or eosinophilic pneumonia. 2. Small bilateral pleural effusions. 3. Cholelithiasis. 4. Bilateral nephrolithiasis more prominent on the right with right internal ureteral stent in expected position. No hydronephrosis. 5. Moderate diverticulosis. 6. Moderate-sized fat-containing umbilical hernia. Chest X-Ray 08/16/24 12:51 IMPRESSION: 1. Scattered linear discoid atelectasis in the right mid to lower and left lower lung zones. Labs Labs: Laboratory Results - last 24 hr 08/16/24 08/17/24 15:37 06:14 WBC 13.7 H RBC 2.99 L Hgb 9.9 L Hct 29.0 L MCV 97.0 MCH 33.1 MCHC 34.1 RDW 17.2 H Plt Count 261 MPV 8.9 Sodium 134 L Potassium 3.7 Chloride 107 Carbon Dioxide 23 Anion Gap 4 BUN 13 Creatinine 0.75 Estim Creat Clear Calc 67 Estimated GFR > 60 Glucose 78 Lactic Acid 0.7 Calcium 8.7 Phosphorus 1.8 L Magnesium 1.9 Total Bilirubin 1.0 AST 65 H ALT 52 H Alkaline Phosphatase 184 H Total Protein 6.0 L Albumin 2.8 L Urine Color Yellow Urine Appearance Cloudy H Urine pH 6.5 Ur Specific [place] 1.017 Urine Protein 2+ H Urine Glucose (UA) Negative Urine Ketones Negative Ur Blood (Man) 2+ H Urine Nitrate Negative Urine Bilirubin Negative Urine Urobilinogen 0.2 Add Ur Microanalysis Reviewed Leukocyte Esterase Rfl 2+ H Urine RBC >100 H Urine WBC 21-50 H Ur Squamous Epith Cells Occasional Ur Transition Epith Cell Rare Urine Bacteria None seen Urine Casts 3-5 Hyaline Casts Present Quality VTE Prophylaxis VTE prophylaxis: mechanical ordered and pharmacologic ordered
--- NOTE | 2024-08-17 23:25 | PC.NURSE ---
This patient, Lupis Juarez, was transferred to [facility] on 08/17/24 at 2325. Personal belongings sent with patient. Report given to BREA Martin. Appropriate documentation sent with patient.
--- NOTE | 2024-08-17 23:30 | PC.NURSE ---
This patient, Lupis Juarez, was received from ICU-7 on 08/17/24 at 2330. Patient/family oriented to unit policies and routines. Report obtained from Riri Lieberman RN
[2024-08-18] VITALS (17 sets, daily range): BP systolic 102–149; BP diastolic 54–97; PULSE 81–83; RESP 16–20; TEMP 36.4–36.8; O2SAT 97–100
[2024-08-18] MEDS: CENTRAL LINE FLUSH 10 ML IV PUSH ×3 (05:53→22:40)
[2024-08-18] MEDS: CENTRAL LINE FLUSH 20 ML IV PUSH (05:53)
[2024-08-18 06:04] LABS: Basophils Absolute Auto 0.1 K/mm3 (0.0-0.1); Eosinophils Percent Auto 0.3 % (0-4.4); Hematocrit 26.7 % (37.0-47.0); Hemoglobin 8.9 g/dL (12.0-15.0); Immature Granulocyte Percent A 4.4 % (0-0.5); Lymphocytes Absolute Auto 2.75 K/mm3 (0.9-3.2); Mean Corpuscular HGB Conc 33.3 g/dl (32-36); Mean Corpuscular Hemoglobin 32.4 pg (26-34); Mean Corpuscular Volume 97.1 fl (80-100); Mean Platelet Volume 8.9 fl (7.4-10.4); Monocytes Absolute Auto 1.1 K/mm3 (0.1-0.6); Monocytes Percent Auto 9.7 % (2.6-8.5); Neutrophils Percent Auto 60.6 % (45.5-73.1); Nucleated Red Blood Cells Perc 0.2 % (0.0-0.2); Platelet Count Result 255 k/mm3 (150-375); Red Blood Count 2.75 M/mm3 (4.2-5.4); Red Cell Distribution Width 17.7 % (11.5-14.5); White Blood Count 11.5 K/mm3 (4.5-10.0)
[2024-08-18 06:16] LABS: Alanine Aminotransferase 55 U/L (6-35); Albumin Level 2.6 g/dL (3.5-5.1); Alkaline Phosphatase 178 U/L (38-126); Anion Gap 4 mmol/L (4-12); Aspartate Amino Transferase 80 U/L (14-36); Bilirubin,Total 0.8 mg/dL (0.2-1.3); Blood Urea Nitrogen 12 mg/dL (7-17); Calcium 8.6 mg/dL (8.4-10.2); Carbon Dioxide 24 mmol/L (22-30); Chloride 107 mmol/L (98-107); Estimated CRCL calculation 71 ml/min; Estimated Glomerular Filt Rate > 60; Glucose 71 mg/dL (65-110); Magnesium 1.8 mg/dL (1.6-2.3); Potassium 3.9 mmol/L (3.4-5.0); Sodium 135 mmol/L (137-145)
[2024-08-18] MEDS: FLUoxetine HCL 20 MG CAPSULE PO (09:00)
[2024-08-18] MEDS: PANTOPRAZOLE SODIUM IV 40 MG VIAL IV PUSH (09:01)
[2024-08-18] MEDS: FLUTICASONE PROPIONATE 0.05% NA SPR 16 GM BTL (*BKC) 1 SPRAY NASAL (09:01)
[2024-08-18] MEDS: buPROPion HCL SR (12 HR) 150 MG TAB PO ×2 (09:47→22:40)
[2024-08-18] MEDS: TOPIRAMATE 25 MG TABLET PO ×2 (09:47→22:40)
--- NOTE | 2024-08-18 09:57 | P.PNIM_ITS ---
Progress Note: A&P Assessment and Plan (1) Heart failure: Code(s): I50.9 - Heart failure, unspecified Status: Acute (2) Positive urine drug screen: Code(s): R82.5 - Elevated urine levels of drugs, medicaments and biological substances Status: Acute (3) Pulmonary hypertension: Code(s): I27.20 - Pulmonary hypertension, unspecified Status: Acute (4) Non-ST elevation [place] (NSTEMI): Code(s): I21.4 - Non-ST elevation (NSTEMI) myocardial infarction Status: Acute (5) Atrial fibrillation: Qualifiers: Atrial fibrillation type: paroxysmal Qualified Code(s): I48.0 - Paroxysmal atrial fibrillation Code(s): I48.91 - Unspecified atrial fibrillation Status: Acute (6) Morbid obesity with BMI of 45.0-49.9, adult: Code(s): E66.01 - Morbid (severe) obesity due to excess calories; Z68.42 - Body mass index [BMI] 45.0-49.9, adult Status: Acute (7) Acute renal failure: Qualifiers: Acute renal failure type: unspecified Qualified Code(s): N17.9 - Acute kidney failure, unspecified Code(s): N17.9 - Acute kidney failure, unspecified Status: Acute (8) TOÑA (acute kidney injury): Code(s): N17.9 - Acute kidney failure, unspecified Status: Acute (9) Septic shock: Code(s): A41.9 - Sepsis, unspecified organism; R65.21 - Severe sepsis with septic shock Status: Acute (10) Acute respiratory failure with hypoxia: Code(s): J96.01 - Acute respiratory failure with hypoxia Status: Acute Plan (1) Septic shock: Code(s): A41.9 - Sepsis, unspecified organism; R65.21 - Severe sepsis with septic shock Status: Acute Assessment and Plan: 08/06: Patient presented with generalized weakness, hypovolemia, hypotension, leukocytosis, was found to be in septic shock, likely related to UTI and hypovolemia -patient was adequately fluid resuscitated and is off of crystalloids -continue dopamine for bradycardia and hypotension, maintain MAP > 65 mmHg for adequate end organ perfusion and heart rate above 50 -08/06: Blood cultures growing Proteus mirabilis which is solis sensitive -08/10 repeat blood cultures ordered as patient will likely need pacemaker. Results negative till now -patient is afebrile and overall improved but white count still elevated. Repeat CT scan was done -swallow evaluation done to rule out any aspiration. No evidence of aspiration seen on bedside swallow as per speech therapy -antibiotics changed from cefepime to p.o. Augmentin to cover for both urine and pneumonia -08/16: Patient was started on Levophed on 08/15 after getting the permanent pacemaker placed. WBC count has increased, patient remains afebrile. Chest x- ray showed discoid atelectasis. If patient does not improve may have to look again at cholelithiasis which may be causing cholecystitis. -Augmentin to be discontinued, patient started on ceftriaxone (08/16) Blood cultures and urine culture obtained on August 16 negative better growth so far (08/18) Pneumonia 08/14 CT chest abdomen pelvis IMPRESSION: 1. Patchy bilateral groundglass opacities in the lungs and favor pneumonia over pulmonary edema with differential also including less likely hypersensitivity pneumonitis or eosinophilic pneumonia. 2. Small bilateral pleural effusions. Antibiotics see above UTI (urinary tract infection): Qualifiers: Hematuria presence: with hematuria Urinary tract infection type: acute cystitis Qualified Code(s): N30.01 - Acute cystitis with hematuria Code(s): N39.0 - Urinary tract infection, site not specified Status: Acute Assessment and Plan: UTI could be related to staghorn calculus in the right kidney or cystitis -antibiotics as above Staghorn calculus: Code(s): N20.0 - Calculus of kidney Status: Acute Assessment and Plan: 08/06: CT chest abdomen and pelvis: Findings within the chest suggesting pulmon estela hypertension.Staghorn calculus within the right kidney with global enlargement of the right kidney and surrounding inflammatory change. Lamellated stone within the gallbladder without additional abnormality. Punctate foci of air within the bladder with surrounding inflammatory change suggesting cystitis. Fibroid uterus, enlarged for a patient of this age. Nonobstructing fat- containing umbilical hernia. 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 08/07 status post Cystoscopy, right retrograde, right ureteral stent placement 6 [place] contour, [place] catheter placement Bradyarrhythmia: Code(s): I49.8 - Other specified cardiac arrhythmias Status: Acute Assessment and Plan: Patient has Moreno cardia which appears to be junctional rhythm. home meds: amiodarone, Coreg on hold Received dopamine for bradycardia and hypotension. Continue to titrate status post permanent pacemaker rate was increased to 80 as patient was hypotensive with rates in the 60s (5) Acute renal failure: Qualifiers: Acute renal failure type: unspecified Qualified Code(s): N17.9 - Acute kidney failure, unspecified Code(s): N17.9 - Acute kidney failure, unspecified Status: Acute Assessment and Plan: Acute renal failure likely related to hypovolemia, decreased oral intake, says septic shock/infection Improved with IV fluids and creatinine trending down and close to normal, urine output improved -continue to monitor urine output, renal function electrolytes -nephrology was consulted from ER -creatinine has normalized (6) Electrolyte imbalance: Code(s): E87.8 - Other disorders of electrolyte and fluid balance, not elsewhere classified Status: Acute Assessment and Plan: Replace phosphorus (7) Atrial fibrillation: Qualifiers: Atrial fibrillation type: paroxysmal Qualified Code(s): I48.0 - Paroxysmal atrial fibrillation Code(s): I48.91 - Unspecified atrial fibrillation Status: Acute Assessment and Plan: Patient has a history of atrial fibrillation on Eliquis at home. She takes amiodarone and Coreg at home -currently bradycardic and hypotensive -continue to hold home medications -hold Eliquis as patient has cystoscopy and has hematuria and will likely need permanent pacemaker -discussed with cardiology PIPE CUTTER Haven Alonso, regarding restarting anticoagulation, stated that once the patient comes to the office for her inci werner check, it is at at that time the emergency medical service coordinator will decide, (8) Cholelithiasis without cholecystitis: Code(s): K80.20 - Calculus of gallbladder without cholecystitis without obstruction Status: Acute Assessment and Plan: Ultrasound shows large single gallbladder stone. Radiologic Berry sign was positive. No other changes of cholecystitis or obstruction was seen. evaluated by general surgery and recommended conservative management at this time. No plan for surgical intervention (9) Transaminitis: Code(s): R74.01 - Elevation of levels of liver transaminase levels Status: Acute Assessment and Plan: Multifactorial. Improved Monitor. (10) Hematuria: Code(s): R31.9 - Hematuria, unspecified Status: Acute Assessment and Plan: has resolved. Anticoagulation still on hold per cardiology (11) Pneumonia: Code(s): J18.9 - Pneumonia, unspecified organism Status: Acute Assessment and Plan: see above Subjective Date/time seen: 08/18/24 09:57 Interval history: Patient is afebrile, blood pressure stable, pulse ox 100% on 2 L oxygen, leukocytosis continue to improve, hemoglobin stable. Patient has general weakness, denies chest pain abdomen pain nausea vomiting diarrhea. Some pain over the pacemaker pocket Exam Narrative: General: Pleasant female in no acute distress HEENT:? Pupils equal and reactive, sclera is clear, moist oral mucosa, some Neck:? Supple Respiratory:? Clear to auscultation bilaterally, decreased breath sounds at bases, adequate air entry, no wheeze, Cardiac:? Paced rhythm, tenderness over the pacemaker pocket, wound is well dressed, dressing is dry and clean Abdomen:? Soft, morbid obesity, tender to palpation around the umbilicus, normoactive bowel sounds Extremities:? Trace edema, palpable pedal pulses Neuro:? Patient is awake, alert, oriented x 3 Skin:? Warm and dry Psych:? Flat affect Objective Data Vital Signs Vital Signs: Vital Signs - 24 hr 08/17/24 10:00 08/17/24 10:00 08/17/24 10:00 Temperature Pulse Rate 84 88 88 Respiratory Rate 26 H Blood Pressure 105/55 L 105/55 L Pulse Oximetry 99 Oxygen Delivery Oxygen Flow Rate Fraction of Inspired Oxygen 08/17/24 12:00 08/17/24 12:00 08/17/24 12:00 Temperature 98.1 F Pulse Rate 87 87 Respiratory Rate 22 H Blood Pressure 103/67 103/67 Pulse Oximetry 100 100 Oxygen Delivery Nasal Cannula Oxygen Flow Rate 2 Fraction of Inspired Oxygen 08/17/24 12:00 08/17/24 14:00 08/17/24 14:00 Temperature Pulse Rate 88 89 89 Respiratory Rate 16 Blood Pressure 96/57 L Pulse Oximetry 100 Oxygen Delivery Oxygen Flow Rate Fraction of Inspired Oxygen 08/17/24 14:00 08/17/24 16:00 08/17/24 16:00 Temperature Pulse Rate 89 86 Respiratory Rate Blood Pressure 96/51 L Pulse Oximetry 100 Oxygen Delivery Nasal Cannula Oxygen Flow Rate 2 Fraction of Inspired Oxygen 08/17/24 16:00 08/17/24 18:00 08/17/24 20:00 Temperature 98.0 F Pulse Rate 88 83 89 Respiratory Rate 21 H Blood Pressure 120/54 L Pulse Oximetry 96 Oxygen Delivery Oxygen Flow Rate Fraction of Inspired Oxygen 08/17/24 20:00 08/17/24 20:19 08/17/24 22:00 Temperature 98.0 F Pulse Rate 84 84 Respiratory Rate 21 H Blood Pressure 126/97 H Pulse Oximetry 95 95 Oxygen Delivery Room Air Oxygen Flow Rate Fraction of Inspired Oxygen 08/17/24 23:35 08/18/24 00:00 08/18/24 00:00 Temperature 98.2 F Pulse Rate 82 82 82 Respiratory Rate 18 18 Blood Pressure 118/57 L Pulse Oximetry 99 99 Oxygen Delivery Nasal Cannula Oxygen Flow Rate 2 Fraction of Inspired Oxygen 08/18/24 02:00 08/18/24 04:00 08/18/24 04:00 Temperature 98.1 F Pulse Rate 82 81 81 Respiratory Rate 18 18 Blood Pressure 125/54 L Pulse Oximetry 98 98 Oxygen Delivery Nasal Cannula Oxygen Flow Rate 2 Fraction of Inspired Oxygen 08/18/24 04:00 08/18/24 06:00 08/18/24 07:35 Temperature 98.2 F Pulse Rate 82 81 81 Respiratory Rate 16 Blood Pressure 138/97 H Pulse Oximetry 100 Oxygen Delivery Oxygen Flow Rate Fraction of Inspired Oxygen 08/18/24 08:00 08/18/24 08:00 08/18/24 09:22 Temperature Pulse Rate 81 81 Respiratory Rate 16 Blood Pressure Pulse Oximetry 97 97 Oxygen Delivery Nasal Cannula Nasal Cannula Oxygen Flow Rate 2 2 Fraction of Inspired Oxygen 21 08/18/24 09:49 Temperature Pulse Rate 83 Respiratory Rate Blood Pressure Pulse Oximetry Oxygen Delivery Oxygen Flow Rate Fraction of Inspired Oxygen Intake/Output Intake/Output: Intake & Output 08/15/24 08/16/24 08/17/24 08/18/24 23:59 23:59 23:59 23:59 Intake Total 654.6 2335.4 750.8 490 Output Total 1600 150 200 Balance -945.4 2185.4 550.8 490 Meds/Results Medications: Active Medications Generic Name Dose Route Start Last Admin Trade Name Freq PRN Reason Stop Dose Admin Acetaminophen 650 mg 08/06/24 21:36 08/17/24 09:00 Acetaminophen 325 Mg Tablet PO 650 mg Q4H PRN Administration Mild Pain (1-3) or Fever Hydrocodone Bitart/Acetaminophen 1 tab 08/07/24 15:27 08/17/24 21:16 Hydrocodone/Acetaminophen (*Crx) 5-325 Mg Tablet PO 1 tab Q6H PRN Administration Pain Rated 4-6 Alteplase, Recombinant 2 mg 08/15/24 20:45 08/15/24 21:22 Alteplase 2 Mg Vial (Cathflo) IV PUSH 2 mg ONCE PRN Administration Line Occlusion Apixaban 2.5 mg 08/07/24 09:00 Apixaban 2.5 Mg Tablet PO Q12HR SAL Bisacodyl 10 mg 08/16/24 11:01 Bisacodyl 10 Mg Suppository RECTAL QAM PRN Constipation Bupropion HCl 150 mg 08/07/24 09:00 08/17/24 21:15 Bupropion Hcl Sr (12 Hr) 150 Mg Tab PO 150 mg Q12HR SAL Administration Fluoxetine HCl 20 mg 08/07/24 09:00 08/18/24 09:00 Fluoxetine Hcl 20 Mg Capsule PO 20 mg DAILY SAL Administration Fluticasone Propionate 1 spray 08/07/24 09:00 08/18/24 09:01 Fluticasone Propionate 0.05% Na Spr 16 Gm Btl (*Bkc) NASAL 1 spray DAILY SAL Administration Ceftriaxone Sodium 2 gm in 100 mls @ 200 mls/hr 08/16/24 11:00 08/17/24 12:15 Rocephin 2 Gm/Ns 100 Ml IVPB Infused Q24H SAL Infusion Loratadine 10 mg 08/07/24 09:00 08/07/24 10:10 Loratadine 10 Mg Tablet PO Not Given DAILY SAL Ondansetron HCl 4 mg 08/06/24 21:36 08/15/24 13:54 Ondansetron Inj 4 Mg/2 Ml Vial IV PUSH 4 mg Q4H PRN Administration Nausea Ondansetron HCl 4 mg 08/07/24 11:08 Ondansetron Inj 4 Mg/2 Ml Vial IV PUSH ONCE PRN Nausea Pantoprazole Sodium 40 mg 08/08/24 09:00 08/18/24 09:01 Pantoprazole Sodium Iv 40 Mg Vial IV PUSH 40 mg QAM SAL Administration Phenol 1 spray 08/12/24 07:50 Phenol/Sod Pheno [place] (*Bkc) MUCOUS MEM PRN PRN Sore Throat Polyethylene Glycol 17 gm 08/16/24 11:01 Polyethylene Glycol 3350 17 Gm Powd.Pack PO QAM PRN Constipation Sodium Chloride 10 ml 08/07/24 06:00 08/18/24 05:53 Central Line Flush IV PUSH 10 ml Q8HR SAL Administration Sodium Chloride 20 ml 08/07/24 02:32 08/18/24 05:53 Central Line Flush IV PUSH 20 ml PRN PRN Administration after blood draws Topiramate 25 mg 08/07/24 09:00 08/17/24 21:15 Topiramate 25 Mg Tablet PO 25 mg Q12HR SAL Administration Radiology Results: ITS Impressions Abdomen Ultrasound 08/06/24 20:18 IMPRESSION: Single lamellated stone within the gallbladder with a sonographic Berry sign. Retrograde Pyelogram 08/07/24 12:44 IMPRESSION: 1. Right internal ureteral stent in expected position. Renal Ultrasound 08/07/24 15:17 IMPRESSION: No definite abnormality seen. Chest/Abdomen/Pelvis CT 08/13/24 14:47 IMPRESSION: 1. Patchy bilateral groundglass opacities in the lungs and favor pneumonia over pulmonary edema with differential also including less likely hypersensitivity pneumonitis or eosinophilic pneumonia. 2. Small bilateral pleural effusions. 3. Cholelithiasis. 4. Bilateral nephrolithiasis more prominent on the right with right internal ureteral stent in expected position. No hydronephrosis. 5. Moderate diverticulosis. 6. Moderate-sized fat-containing umbilical hernia. Chest X-Ray 08/16/24 12:51 IMPRESSION: 1. Scattered linear discoid atelectasis in the right mid to lower and left lower lung zones. Labs Labs: Laboratory Results - last 24 hr 08/18/24 05:51 WBC 11.5 H RBC 2.75 L Hgb 8.9 L Hct 26.7 L MCV 97.1 MCH 32.4 MCHC 33.3 RDW 17.7 H Plt Count 255 MPV 8.9 Immature Gran % (Auto) 4.4 H Neut % (Auto) 60.6 Lymph % (Auto) 24.0 Rice % (Auto) 9.7 H Eos % (Auto) 0.3 Baso % (Auto) 1.0 Lymph # (Auto) 2.75 Rice # (Auto) 1.1 H Eos # (Auto) 0.0 Baso # (Auto) 0.1 Abs Immat Gran (auto) 0.50 H Absolute Neuts (auto) 7.0 H Absolute Nucleated RBC 0.020 H Nucleated RBC % 0.2 Sodium 135 L Potassium 3.9 Chloride 107 Carbon Dioxide 24 Anion Gap 4 BUN 12 Creatinine 0.71 Estim Creat Clear Calc 71 Estimated GFR > 60 Glucose 71 Lactic Acid 1.0 Calcium 8.6 Phosphorus 2.0 L Magnesium 1.8 Total Bilirubin 0.8 AST 80 H ALT 55 H Alkaline Phosphatase 178 H Total Protein 6.0 L Albumin 2.6 L
[2024-08-18] MEDS: cefTRIAXone 2 GM/NS 100 ML 2 GM/100 ML BAG IVPB (11:00)
[2024-08-18] MEDS: oxyCODONE/ACETAMINOPHEN (*CRX) 5-325 MG TABLET 1 TABLET PO (13:41)
[2024-08-19] VITALS (18 sets, daily range): BP systolic 106–128; BP diastolic 49–83; PULSE 80–90; RESP 16–20; TEMP 36.5–37.1; O2SAT 95–100
[2024-08-19] MEDS: CENTRAL LINE FLUSH 20 ML IV PUSH (06:07)
[2024-08-19] MEDS: CENTRAL LINE FLUSH 10 ML IV PUSH ×3 (06:07→21:41)
[2024-08-19 06:19] LABS: Hematocrit 26.1 % (37.0-47.0); Hemoglobin 8.6 g/dL (12.0-15.0); Mean Corpuscular Hemoglobin 32.3 pg (26-34); Mean Corpuscular Volume 98.1 fl (80-100); Mean Platelet Volume 8.8 fl (7.4-10.4); Platelet Count Result 279 k/mm3 (150-375); Red Blood Count 2.66 M/mm3 (4.2-5.4); Red Cell Distribution Width 18.1 % (11.5-14.5); White Blood Count 9.5 K/mm3 (4.5-10.0)
[2024-08-19 06:34] LABS: Lactic Acid Reflex 0.7 mmol/L (0.7-2.0)
[2024-08-19 06:36] LABS: Alanine Aminotransferase 65 U/L (6-35); Albumin Level 2.6 g/dL (3.5-5.1); Alkaline Phosphatase 174 U/L (38-126); Anion Gap 1 mmol/L (4-12); Aspartate Amino Transferase 103 U/L (14-36); Bilirubin,Total 0.8 mg/dL (0.2-1.3); Blood Urea Nitrogen 10 mg/dL (7-17); Calcium 8.7 mg/dL (8.4-10.2); Carbon Dioxide 27 mmol/L (22-30); Chloride 108 mmol/L (98-107); Estimated CRCL calculation 70 ml/min; Estimated Glomerular Filt Rate > 60; Glucose 78 mg/dL (65-110); Phosphorus 2.2 mg/dL (2.5-4.5); Potassium 4.2 mmol/L (3.4-5.0); Sodium 136 mmol/L (137-145)
--- NOTE | 2024-08-19 07:21 | PC.NURSE ---
bed weight is off by 30kg, passed on to Berenice GUIDRY and Marily that bed needs to be zeroed.
[2024-08-19] MEDS: FLUoxetine HCL 20 MG CAPSULE PO (08:50)
[2024-08-19] MEDS: TOPIRAMATE 25 MG TABLET PO ×2 (08:50→21:41)
[2024-08-19] MEDS: HYDROcodone/acetaminophen (*CRX) 5-325 MG TABLET 1 TAB PO (08:51)
[2024-08-19] MEDS: PANTOPRAZOLE SODIUM IV 40 MG VIAL IV PUSH (08:52)
[2024-08-19] MEDS: FLUTICASONE PROPIONATE 0.05% NA SPR 16 GM BTL (*BKC) 1 SPRAY NASAL (08:52)
[2024-08-19] MEDS: buPROPion HCL SR (12 HR) 150 MG TAB PO ×2 (08:52→21:41)
--- NOTE | 2024-08-19 10:03 | PM.IMPN ---
Progress Note: A&P Assessment and Plan (1) Heart failure: Code(s): I50.9 - Heart failure, unspecified Status: Acute (2) Positive urine drug screen: Code(s): R82.5 - Elevated urine levels of drugs, medicaments and biological substances Status: Acute (3) Pulmonary hypertension: Code(s): I27.20 - Pulmonary hypertension, unspecified Status: Acute (4) Non-ST elevation GA (NSTEMI): Code(s): I21.4 - Non-ST elevation (NSTEMI) myocardial infarction Status: Acute (5) Atrial fibrillation: Qualifiers: Atrial fibrillation type: paroxysmal Qualified Code(s): I48.0 - Paroxysmal atrial fibrillation Code(s): I48.91 - Unspecified atrial fibrillation Status: Acute (6) Morbid obesity with BMI of 45.0-49.9, adult: Code(s): E66.01 - Morbid (severe) obesity due to excess calories; Z68.42 - Body mass index [BMI] 45.0-49.9, adult Status: Acute (7) Acute renal failure: Qualifiers: Acute renal failure type: unspecified Qualified Code(s): N17.9 - Acute kidney failure, unspecified Code(s): N17.9 - Acute kidney failure, unspecified Status: Acute (8) TOÑA (acute kidney injury): Code(s): N17.9 - Acute kidney failure, unspecified Status: Acute (9) Septic shock: Code(s): A41.9 - Sepsis, unspecified organism; R65.21 - Severe sepsis with septic shock Status: Acute (10) Acute respiratory failure with hypoxia: Code(s): J96.01 - Acute respiratory failure with hypoxia Status: Acute Plan (1) Septic shock: Code(s): A41.9 - Sepsis, unspecified organism; R65.21 - Severe sepsis with septic shock Status: Acute Assessment and Plan: 08/06: Patient presented with generalized weakness, hypovolemia, hypotension, leukocytosis, was found to be in septic shock, likely related to UTI and hypovolemia -patient was adequately fluid resuscitated and is off of crystalloids -continue dopamine for bradycardia and hypotension, maintain MAP > 65 mmHg for adequate end organ perfusion and heart rate above 50 -08/06: Blood cultures growing Proteus mirabilis which is pansensitive -08/10 repeat blood cultures ordered as patient will likely need pacemaker. Results negative till now -patient is afebrile and overall improved but white count still elevated. Repeat CT scan was done -swallow evaluation done to rule out any aspiration. No evidence of aspiration seen on bedside swallow as per speech therapy -antibiotics changed from cefepime to p.o. Augmentin to cover for both urine and pneumonia -08/16: Patient was started on Levophed on 08/15 after getting the permanent pacemaker placed. WBC count has increased, patient remains afebrile. Chest x-ray showed discoid atelectasis. If patient does not improve may have to look again at cholelithiasis which may be causing cholecystitis. -Augmentin to be discontinued, patient started on ceftriaxone (08/16) Blood cultures and urine culture obtained on August 16 negative better growth so far (08/19) Continue ceftriaxone IV 2 g daily 08/19 Bacteremia See above Pneumonia 08/14 CT chest abdomen pelvis IMPRESSION: 1. Patchy bilateral groundglass opacities in the lungs and favor pneumonia over pulmonary edema with differential also including less likely hypersensitivity pneumonitis or eosinophilic pneumonia. 2. Small bilateral pleural effusions. Antibiotics see above UTI (urinary tract infection): Qualifiers: Hematuria presence: with hematuria Urinary tract infection type: acute cystitis Qualified Code(s): N30.01 - Acute cystitis with hematuria Code(s): N39.0 - Urinary tract infection, site not specified Status: Acute Assessment and Plan: UTI could be related to staghorn calculus in the right kidney or cystitis -antibiotics as above Staghorn calculus: Code(s): N20.0 - Calculus of kidney Status: Acute Assessment and Plan: 08/06: CT chest abdomen and pelvis: Findings within the chest suggesting pulmonary hypertension.Staghorn calculus within the right kidney with global enlargement of the right kidney and surrounding inflammatory change. Lamellated stone within the gallbladder without additional abnormality. Punctate foci of air within the bladder with surrounding inflammatory change suggesting cystitis. Fibroid uterus, enlarged for a patient of this age. Nonobstructing fat-containing umbilical hernia. 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 08/07 status post Cystoscopy, right retrograde, right ureteral stent placement 6 Irish contour, Stafford catheter placement Bradyarrhythmia: Code(s): I49.8 - Other specified cardiac arrhythmias Status: Acute Assessment and Plan: Patient has Moreno cardia which appears to be junctional rhythm. home meds: amiodarone, Coreg on hold Received dopamine for bradycardia and hypotension. Continue to titrate status post permanent pacemaker rate was increased to 80 as patient was hypotensive with rates in the 60s (5) Acute renal failure: Qualifiers: Acute renal failure type: unspecified Qualified Code(s): N17.9 - Acute kidney failure, unspecified Code(s): N17.9 - Acute kidney failure, unspecified Status: Acute Assessment and Plan: Acute renal failure likely related to hypovolemia, decreased oral intake, says septic shock/infection Improved with IV fluids and creatinine trending down and close to normal, urine output improved -continue to monitor urine output, renal function electrolytes -nephrology was consulted from ER -creatinine has normalized (6) Electrolyte imbalance: Code(s): E87.8 - Other disorders of electrolyte and fluid balance, not elsewhere classified Status: Acute Assessment and Plan: Replace phosphorus (7) Atrial fibrillation: Qualifiers: Atrial fibrillation type: paroxysmal Qualified Code(s): I48.0 - Paroxysmal atrial fibrillation Code(s): I48.91 - Unspecified atrial fibrillation Status: Acute Assessment and Plan: Patient has a history of atrial fibrillation on Eliquis at home. She takes amiodarone and Coreg at home -currently bradycardic and hypotensive -continue to hold home medications -hold Eliquis as patient has cystoscopy and has hematuria and will likely need permanent pacemaker -discussed with cardiology [employer] Haven Alonso, regarding restarting anticoagulation, stated that once the patient comes to the office for her incision check, it is at at that time the air traffic systems technician will decide, (8) Cholelithiasis without cholecystitis: Code(s): K80.20 - Calculus of gallbladder without cholecystitis without obstruction Status: Acute Assessment and Plan: Ultrasound shows large single gallbladder stone. Radiologic Berry sign was positive. No other changes of cholecystitis or obstruction was seen. evaluated by general surgery and recommended conservative management at this time. No plan for surgical intervention (9) Transaminitis: Code(s): R74.01 - Elevation of levels of liver transaminase levels Status: Acute Assessment and Plan: Multifactorial. Improved Monitor. (10) Hematuria: Code(s): R31.9 - Hematuria, unspecified Status: Acute Assessment and Plan: has resolved. Anticoagulation still on hold per cardiology (11) Pneumonia: Code(s): J18.9 - Pneumonia, unspecified organism Status: Acute Assessment and Plan: see above Subjective Date/time seen: 08/19/24 10:03 Interval history: Patient has general weakness, denies chest pain, palpitation abdomen pain nausea vomiting diarrhea. Patient afebrile, blood pressure stable. Exam Narrative: General: Pleasant female in no acute distress HEENT:? Pupils equal and reactive, sclera is clear, moist oral mucosa, some Neck:? Supple Respiratory:? Clear to auscultation bilaterally, decreased breath sounds at bases, adequate air entry, no wheeze, Cardiac:? Paced rhythm, tenderness over the pacemaker pocket, wound is well dressed, dressing is dry and clean Abdomen:? Soft, morbid obesity, tender to palpation around the umbilicus, normoactive bowel sounds Extremities:? Trace edema, palpable pedal pulses Neuro:? Patient is awake, alert, oriented x 3 Skin:? Warm and dry Psych:? Flat affect Objective Data Vital Signs Vital Signs: Vital Signs - 24 hr 08/18/24 12:00 08/18/24 12:00 08/18/24 12:00 Temperature 98 F Pulse Rate 81 81 81 Respiratory Rate 20 20 Blood Pressure 102/64 Pulse Oximetry 98 98 Oxygen Delivery Nasal Cannula Oxygen Flow Rate 2 Fraction of Inspired Oxygen 21 08/18/24 13:03 08/18/24 15:36 08/18/24 16:00 Temperature 97.6 F Pulse Rate 81 82 82 Respiratory Rate 18 18 Blood Pressure 149/64 H Pulse Oximetry 100 100 Oxygen Delivery Nasal Cannula Oxygen Flow Rate 2 Fraction of Inspired Oxygen 21 08/18/24 16:00 08/18/24 17:51 08/18/24 19:01 Temperature 98.3 F Pulse Rate 82 82 83 Respiratory Rate 18 Blood Pressure 130/61 Pulse Oximetry 100 Oxygen Delivery Oxygen Flow Rate Fraction of Inspired Oxygen 08/18/24 20:00 08/18/24 22:00 08/18/24 22:30 Temperature Pulse Rate 81 81 Respiratory Rate Blood Pressure Pulse Oximetry 98 Oxygen Delivery Nasal Cannula Oxygen Flow Rate 2 Fraction of Inspired Oxygen 08/19/24 00:00 08/19/24 00:00 08/19/24 00:00 Temperature 98.8 F Pulse Rate 81 81 Respiratory Rate 20 Blood Pressure 120/49 L Pulse Oximetry 99 98 Oxygen Delivery Room Air Oxygen Flow Rate Fraction of Inspired Oxygen 08/19/24 02:00 08/19/24 04:00 08/19/24 04:30 Temperature 98.3 F Pulse Rate 81 80 81 Respiratory Rate 16 Blood Pressure 108/69 Pulse Oximetry 99 Oxygen Delivery Oxygen Flow Rate Fraction of Inspired Oxygen 08/19/24 04:30 08/19/24 06:50 08/19/24 07:56 Temperature Pulse Rate 81 81 Respiratory Rate 16 Blood Pressure Pulse Oximetry 99 96 Oxygen Delivery Nasal Cannula Nasal Cannula Oxygen Flow Rate 2 2 Fraction of Inspired Oxygen 08/19/24 08:00 08/19/24 08:00 08/19/24 08:00 Temperature 98.0 F Pulse Rate 82 82 82 Respiratory Rate 18 18 Blood Pressure 106/83 Pulse Oximetry 100 100 Oxygen Delivery Nasal Cannula Oxygen Flow Rate 2 Fraction of Inspired Oxygen 21 08/19/24 09:41 Temperature Pulse Rate 82 Respiratory Rate Blood Pressure Pulse Oximetry Oxygen Delivery Oxygen Flow Rate Fraction of Inspired Oxygen Intake/Output Intake/Output: Intake & Output 08/16/24 08/17/24 08/18/24 08/19/24 23:59 23:59 23:59 23:59 Intake Total 2335.4 750.8 1090 400 Output Total 150 200 125 Balance 2185.4 550.8 1090 275 Meds/Results Medications: Active Medications Generic Name Dose Route Start Last Admin Trade Name Freq PRN Reason Stop Dose Admin Acetaminophen 650 mg 08/06/24 21:36 08/17/24 09:00 Acetaminophen 325 Mg Tablet PO 650 mg Q4H PRN Administration Mild Pain (1-3) or Fever Hydrocodone Bitart/Acetaminophen 1 tab 08/07/24 15:27 08/19/24 08:51 Hydrocodone/Acetaminophen (*Crx) 5-325 Mg Tablet PO 1 tab Q6H PRN Administration Pain Rated 4-6 Alteplase, Recombinant 2 mg 08/15/24 20:45 08/15/24 21:22 Alteplase 2 Mg Vial (Cathflo) IV PUSH 2 mg ONCE PRN Administration Line Occlusion Apixaban 2.5 mg 08/07/24 09:00 Apixaban 2.5 Mg Tablet PO Q12HR SAL Bisacodyl 10 mg 08/16/24 11:01 Bisacodyl 10 Mg Suppository RECTAL QAM PRN Constipation Bupropion HCl 150 mg 08/07/24 09:00 08/19/24 08:52 Bupropion Hcl Sr (12 Hr) 150 Mg Tab PO 150 mg Q12HR SAL Administration Fluoxetine HCl 20 mg 08/07/24 09:00 08/19/24 08:50 Fluoxetine Hcl 20 Mg Capsule PO 20 mg DAILY SAL Administration Fluticasone Propionate 1 spray 08/07/24 09:00 08/19/24 08:52 Fluticasone Propionate 0.05% Na Spr 16 Gm Btl (*Bkc) NASAL 1 spray DAILY SAL Administration Ceftriaxone Sodium 2 gm in 100 mls @ 200 mls/hr 08/16/24 11:00 08/18/24 11:00 Rocephin 2 Gm/Ns 100 Ml IVPB 200 mls/hr Q24H SAL Administration Loratadine 10 mg 08/07/24 09:00 08/07/24 10:10 Loratadine 10 Mg Tablet PO Not Given DAILY SAL Ondansetron HCl 4 mg 08/06/24 21:36 08/15/24 13:54 Ondansetron Inj 4 Mg/2 Ml Vial IV PUSH 4 mg Q4H PRN Administration Nausea Ondansetron HCl 4 mg 08/07/24 11:08 Ondansetron Inj 4 Mg/2 Ml Vial IV PUSH ONCE PRN Nausea Pantoprazole Sodium 40 mg 08/08/24 09:00 08/19/24 08:52 Pantoprazole Sodium Iv 40 Mg Vial IV PUSH 40 mg QAM SAL Administration Phenol 1 spray 08/12/24 07:50 Phenol/Sod Pheno Galena Brandt (*Bkc) MUCOUS MEM PRN PRN Sore Throat Polyethylene Glycol 17 gm 08/16/24 11:01 Polyethylene Glycol 3350 17 Gm Powd.Pack PO QAM PRN Constipation Sodium Chloride 10 ml 08/07/24 06:00 08/19/24 06:07 Central Line Flush IV PUSH 10 ml Q8HR SAL Administration Sodium Chloride 20 ml 08/07/24 02:32 08/19/24 06:07 Central Line Flush IV PUSH 20 ml PRN PRN Administration after blood draws Topiramate 25 mg 08/07/24 09:00 08/19/24 08:50 Topiramate 25 Mg Tablet PO 25 mg Q12HR SAL Administration Radiology Results: ITS Impressions Abdomen Ultrasound 08/06/24 20:18 IMPRESSION: Single lamellated stone within the gallbladder with a sonographic Berry sign. Retrograde Pyelogram 08/07/24 12:44 IMPRESSION: 1. Right internal ureteral stent in expected position. Renal Ultrasound 08/07/24 15:17 IMPRESSION: No definite abnormality seen. Chest/Abdomen/Pelvis CT 08/13/24 14:47 IMPRESSION: 1. Patchy bilateral groundglass opacities in the lungs and favor pneumonia over pulmonary edema with differential also including less likely hypersensitivity pneumonitis or eosinophilic pneumonia. 2. Small bilateral pleural effusions. 3. Cholelithiasis. 4. Bilateral nephrolithiasis more prominent on the right with right internal ureteral stent in expected position. No hydronephrosis. 5. Moderate diverticulosis. 6. Moderate-sized fat-containing umbilical hernia. Chest X-Ray 08/16/24 12:51 IMPRESSION: 1. Scattered linear discoid atelectasis in the right mid to lower and left lower lung zones. Labs Labs: Laboratory Results - last 24 hr 08/19/24 06:06 WBC 9.5 RBC 2.66 L Hgb 8.6 L Hct 26.1 L MCV 98.1 MCH 32.3 MCHC 33.0 RDW 18.1 H Plt Count 279 MPV 8.8 Sodium 136 L Potassium 4.2 Chloride 108 H Carbon Dioxide 27 Anion Gap 1 L BUN 10 Creatinine 0.72 Estim Creat Clear Calc 70 Estimated GFR > 60 Glucose 78 Lactic Acid 0.7 Calcium 8.7 Phosphorus 2.2 L Magnesium 2.0 Total Bilirubin 0.8 AST 103 H ALT 65 H Alkaline Phosphatase 174 H Total Protein 6.0 L Albumin 2.6 L
[2024-08-19] MEDS: cefTRIAXone 2 GM/NS 100 ML 2 GM/100 ML BAG IVPB (12:48)
--- NOTE | 2024-08-19 15:27 | PCPTNOTE ---
attempted PT eval, pt declined evaluation today d/t not feeling well, asked pt if she would participate tomorrow she stated maybe, we'll see , pt educated on the importance of movement and building strength to get out of bed, will follow
--- NOTE | 2024-08-19 23:00 | PC.NURSE ---
Report given to Marixa GUIDRY for med tele transfer.
--- NOTE | 2024-08-19 23:01 | PC.NURSE ---
Patient transferred to room 241 per bariatric bed will belongings at 2230.
[2024-08-20] VITALS (12 sets, daily range): BP systolic 109–141; BP diastolic 54–61; PULSE 80–86; RESP 17–20; TEMP 36.1–36.8; O2SAT 95–100
[2024-08-20] MEDS: HYDROcodone/acetaminophen (*CRX) 5-325 MG TABLET 1 TAB PO ×2 (05:19→20:18)
[2024-08-20 06:10] LABS: Hematocrit 27.2 % (37.0-47.0); Hemoglobin 8.8 g/dL (12.0-15.0); Mean Corpuscular HGB Conc 32.4 g/dl (32-36); Mean Corpuscular Hemoglobin 32.8 pg (26-34); Mean Corpuscular Volume 101.5 fl (80-100); Mean Platelet Volume 9.5 fl (7.4-10.4); Platelet Count Result 287 k/mm3 (150-375); Red Blood Count 2.68 M/mm3 (4.2-5.4); Red Cell Distribution Width 18.6 % (11.5-14.5); White Blood Count 9.9 K/mm3 (4.5-10.0)
[2024-08-20 06:17] LABS: Magnesium 1.9 mg/dL (1.6-2.3); Phosphorus 2.5 mg/dL (2.5-4.5)
[2024-08-20 06:32] LABS: Alanine Aminotransferase 67 U/L (6-35); Anion Gap 6 mmol/L (4-12); Bilirubin,Total 0.9 mg/dL (0.2-1.3); Blood Urea Nitrogen 10 mg/dL (7-17); Calcium 8.6 mg/dL (8.4-10.2); Carbon Dioxide 24 mmol/L (22-30); Chloride 107 mmol/L (98-107); Estimated CRCL calculation 79 ml/min; Estimated Glomerular Filt Rate > 60; Glucose 76 mg/dL (65-110); Sodium 137 mmol/L (137-145)
[2024-08-20 06:41] LABS: Albumin Level 2.6 g/dL (3.5-5.1); Alkaline Phosphatase 195 U/L (38-126); Aspartate Amino Transferase 91 U/L (14-36); Potassium 4.4 mmol/L (3.4-5.0)
[2024-08-20] MEDS: PANTOPRAZOLE SODIUM IV 40 MG VIAL IV PUSH (08:09)
[2024-08-20] MEDS: TOPIRAMATE 25 MG TABLET PO ×2 (08:09→20:18)
[2024-08-20] MEDS: FLUoxetine HCL 20 MG CAPSULE PO (08:09)
[2024-08-20] MEDS: buPROPion HCL SR (12 HR) 150 MG TAB PO ×2 (08:09→20:18)
[2024-08-20] MEDS: FLUTICASONE PROPIONATE 0.05% NA SPR 16 GM BTL (*BKC) 1 SPRAY NASAL (08:10)
--- NOTE | 2024-08-20 08:20 | P.PNIM_ITS ---
Progress Note: A&P Assessment and Plan (1) Heart failure: Code(s): I50.9 - Heart failure, unspecified Status: Acute (2) Positive urine drug screen: Code(s): R82.5 - Elevated urine levels of drugs, medicaments and biological substances Status: Acute (3) Pulmonary hypertension: Code(s): I27.20 - Pulmonary hypertension, unspecified Status: Acute (4) Non-ST elevation SD (NSTEMI): Code(s): I21.4 - Non-ST elevation (NSTEMI) myocardial infarction Status: Acute (5) Atrial fibrillation: Qualifiers: Atrial fibrillation type: paroxysmal Qualified Code(s): I48.0 - Paroxysmal atrial fibrillation Code(s): I48.91 - Unspecified atrial fibrillation Status: Acute (6) Morbid obesity with BMI of 45.0-49.9, adult: Code(s): E66.01 - Morbid (severe) obesity due to excess calories; Z68.42 - Body mass index [BMI] 45.0-49.9, adult Status: Acute (7) Acute renal failure: Qualifiers: Acute renal failure type: unspecified Qualified Code(s): N17.9 - Acute kidney failure, unspecified Code(s): N17.9 - Acute kidney failure, unspecified Status: Acute (8) TOÑA (acute kidney injury): Code(s): N17.9 - Acute kidney failure, unspecified Status: Acute (9) Septic shock: Code(s): A41.9 - Sepsis, unspecified organism; R65.21 - Severe sepsis with septic shock Status: Acute (10) Acute respiratory failure with hypoxia: Code(s): J96.01 - Acute respiratory failure with hypoxia Status: Acute Plan (1) Septic shock: Code(s): A41.9 - Sepsis, unspecified organism; R65.21 - Severe sepsis with septic shock Status: Acute Assessment and Plan: 08/06: Patient presented with generalized weakness, hypovolemia, hypotension, leukocytosis, was found to be in septic shock, likely related to UTI and hypovolemia -patient was adequately fluid resuscitated and is off of crystalloids -continue dopamine for bradycardia and hypotension, maintain MAP > 65 mmHg for adequate end organ perfusion and heart rate above 50 -08/06: Blood cultures growing Proteus mirabilis which is pansensitive -08/10 repeat blood cultures ordered as patient will likely need pacemaker. Results negative till now -patient is afebrile and overall improved but white count still elevated. Repeat CT scan was done -swallow evaluation done to rule out any aspiration. No evidence of aspiration seen on bedside swallow as per speech therapy -antibiotics changed from cefepime to p.o. Augmentin to cover for both urine and pneumonia -08/16: Patient was started on Levophed on 08/15 after getting the permanent pacemaker placed. WBC count has increased, patient remains afebrile. Chest x- ray showed discoid atelectasis. If patient does not improve may have to look again at cholelithiasis which may be causing cholecystitis. -Augmentin to be discontinued, patient started on ceftriaxone (08/16) Blood cultures and urine culture obtained on August 16 negative better growth so far (08/19) Continue ceftriaxone IV 2 g daily 08/19 blood culture positive of Proteus mirabilis on August 06, repeat blood culture on August 10 negative of bateria growth will continue ceftriaxone 2 gm iv for total 2 wks after 08/16 since the pt has a PPM till 08/24 Bacteremia See above Pneumonia 08/14 CT chest abdomen pelvis IMPRESSION: 1. Patchy bilateral groundglass opacities in the lungs and favor pneumonia over pulmonary edema with differential also including less likely hypersensitivity pneumonitis or eosinophilic pneumonia. 2. Small bilateral pleural effusions. Antibiotics see above UTI (urinary tract infection): Qualifiers: Hematuria presence: with hematuria Urinary tract infection type: acute cystitis Qualified Code(s): N30.01 - Acute cystitis with hematuria Code(s): N39.0 - Urinary tract infection, site not specified Status: Acute Assessment and Plan: UTI could be related to staghorn calculus in the right kidney or cystitis -antibiotics as above Staghorn calculus: Code(s): N20.0 - Calculus of kidney Status: Acute Assessment and Plan: 08/06: CT chest abdomen and pelvis: Findings within the chest suggesting pulmonary hypertension.Staghorn calculus within the right kidney with global enlargement of the right kidney and surrounding inflammatory change. Lamellated stone within the gallbladder without additional abnormality. Punctate foci of air within the bladder with surrounding inflammatory change suggesting cystitis. Fibroid uterus, enlarged for a patient of this age. Nonobstructing fat- containing umbilical hernia. 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 08/07 status post Cystoscopy, right retrograde, right ureteral stent placement 6 [place] contour, [place] catheter placement Bradyarrhythmia: Code(s): I49.8 - Other specified cardiac arrhythmias Status: Acute Assessment and Plan: Patient has Moreno cardia which appears to be junctional rhythm. home meds: amiodarone, Coreg on hold Received dopamine for bradycardia and hypotension. Continue to titrate status post permanent pacemaker rate was increased to 80 as patient was hypotensive with rates in the 60s (5) Acute renal failure: Qualifiers: Acute renal failure type: unspecified Qualified Code(s): N17.9 - Acute kidney failure, unspecified Code(s): N17.9 - Acute kidney failure, unspecified Status: Acute Assessment and Plan: Acute renal failure likely related to hypovolemia, decreased oral intake, says septic shock/infection Improved with IV fluids and creatinine trending down and close to normal, urine output improved -continue to monitor urine output, renal function electrolytes -nephrology was consulted from ER -creatinine has normalized (6) Electrolyte imbalance: Code(s): E87.8 - Other disorders of electrolyte and fluid balance, not elsewhere classified Status: Acute Assessment and Plan: Replace phosphorus (7) Atrial fibrillation: Qualifiers: Atrial fibrillation type: paroxysmal Qualified Code(s): I48.0 - Paroxysmal atrial fibrillation Code(s): I48.91 - Unspecified atrial fibrillation Status: Acute Assessment and Plan: Patient has a history of atrial fibrillation on Eliquis at home. She takes amiodarone and Coreg at home -currently bradycardic and hypotensive -continue to hold home medications -hold Eliquis as patient has cystoscopy and has hematuria and will likely need permanent pacemaker -discussed with cardiology [employer] SALES REPRESENTATIVE Haven Alonso, regarding restarting an ticoagulation, stated that once the patient comes to the office for her incision check, it is at at that time the contracting manager will decide, (8) Cholelithiasis without cholecystitis: Code(s): K80.20 - Calculus of gallbladder without cholecystitis without obstruction Status: Acute Assessment and Plan: Ultrasound shows large single gallbladder stone. Radiologic Berry sign was positive. No other changes of cholecystitis or obstruction was seen. evaluated by general surgery and recommended conservative management at this time. No plan for surgical intervention (9) Transaminitis: Code(s): R74.01 - Elevation of levels of liver transaminase levels Status: Acute Assessment and Plan: Multifactorial. Improved Monitor. (10) Hematuria: Code(s): R31.9 - Hematuria, unspecified Status: Acute Assessment and Plan: has resolved. Anticoagulation still on hold per cardiology (11) Pneumonia: Code(s): J18.9 - Pneumonia, unspecified organism Status: Acute Assessment and Plan: see above Subjective Date/time seen: 08/20/24 08:20 Interval history: No new issue even over the night. Patient has general weakness, denies chest pain, palpitation abdomen pain nausea vomiting diarrhea. Patient afebrile, blood pressure stable. Labs reviewed, anemia stable chemistry unremarkable Exam Narrative: General: Pleasant female in no acute distress HEENT:? Pupils equal and reactive, sclera is clear, moist oral mucosa, some Neck:? Supple Respiratory:? Clear to auscultation bilaterally, decreased breath sounds at bases, adequate air entry, no wheeze, Cardiac:? Paced rhythm, tenderness over the pacemaker pocket, wound is well dressed, dressing is dry and clean Abdomen:? Soft, morbid obesity, tender to palpation around the umbilicus, normoactive bowel sounds Extremities:? Trace edema, palpable pedal pulses Neuro:? Patient is awake, alert, oriented x 3 Skin:? Warm and dry Psych:? Flat affect Objective Data Vital Signs Vital Signs: Vital Signs - 24 hr 08/19/24 09:41 08/19/24 11:52 08/19/24 12:00 Temperature 98 F Pulse Rate 82 80 80 Respiratory Rate 18 18 Blood Pressure 122/71 Pulse Oximetry 100 100 Oxygen Delivery Nasal Cannula Oxygen Flow Rate 2 Fraction of Inspired Oxygen 21 08/19/24 12:00 08/19/24 12:30 08/19/24 15:47 Temperature Pulse Rate 80 82 83 Respiratory Rate Blood Pressure Pulse Oximetry Oxygen Delivery Oxygen Flow Rate Fraction of Inspired Oxygen 08/19/24 16:00 08/19/24 19:02 08/19/24 21:50 Temperature 98.0 F 98.1 F Pulse Rate 90 81 Respiratory Rate 18 18 Blood Pressure 111/64 128/60 Pulse Oximetry 100 100 95 Oxygen Delivery Nasal Cannula Oxygen Flow Rate 2 Fraction of Inspired Oxygen 08/19/24 22:00 08/19/24 22:50 08/19/24 23:17 Temperature 97.7 F Pulse Rate 82 81 81 Respiratory Rate 20 Blood Pressure 123/56 L Pulse Oximetry 100 Oxygen Delivery Oxygen Flow Rate Fraction of Inspired Oxygen 08/20/24 00:00 08/20/24 03:53 08/20/24 04:00 Temperature 97.8 F Pulse Rate 81 81 86 Respiratory Rate 20 Blood Pressure 109/56 L Pulse Oximetry 95 Oxygen Delivery Oxygen Flow Rate Fraction of Inspired Oxygen 08/20/24 07:43 Temperature Pulse Rate Respiratory Rate Blood Pressure Pulse Oximetry 97 Oxygen Delivery Nasal Cannula Oxygen Flow Rate 1.5 Fraction of Inspired Oxygen 26 Intake/Output Intake/Output: Intake & Output 08/17/24 08/18/24 08/19/24 08/20/24 23:59 23:59 23:59 23:59 Intake Total 750.8 1190 695 120 Output Total 200 125 200 Balance 550.8 1190 570 -80 Meds/Results Medications: Active Medications Generic Name Dose Route Start Last Admin Trade Name Freq PRN Reason Stop Dose Admin Acetaminophen 650 mg 08/06/24 21:36 08/17/24 09:00 Acetaminophen 325 Mg Tablet PO 650 mg Q4H PRN Administration Mild Pain (1-3) or Fever Hydrocodone Bitart/Acetaminophen 1 tab 08/07/24 15:27 08/20/24 05:19 Hydrocodone/Acetaminophen (*Crx) 5-325 Mg Tablet PO 1 tab Q6H PRN Administration Pain Rated 4-6 Alteplase, Recombinant 2 mg 08/15/24 20:45 08/15/24 21:22 Alteplase 2 Mg Vial (Cathflo) IV PUSH 2 mg ONCE PRN Administration Line Occlusion Apixaban 2.5 mg 08/07/24 09:00 Apixaban 2.5 Mg Tablet PO Q12HR SAL Bisacodyl 10 mg 08/16/24 11:01 Bisacodyl 10 Mg Suppository RECTAL QAM PRN Constipation Bupropion HCl 150 mg 08/07/24 09:00 08/20/24 08:09 Bupropion Hcl Sr (12 Hr) 150 Mg Tab PO 150 mg Q12HR SAL Administration Fluoxetine HCl 20 mg 08/07/24 09:00 08/20/24 08:09 Fluoxetine Hcl 20 Mg Capsule PO 20 mg DAILY SAL Administration Fluticasone Propionate 1 spray 08/07/24 09:00 08/20/24 08:10 Fluticasone Propionate 0.05% Na Spr 16 Gm Btl (*Bkc) NASAL 1 spray DAILY SAL Administration Ceftriaxone Sodium 2 gm in 100 mls @ 200 mls/hr 08/16/24 11:00 08/19/24 12:48 Rocephin 2 Gm/Ns 100 Ml IVPB 200 mls/hr Q24H SAL Administration Loratadine 10 mg 08/07/24 09:00 08/07/24 10:10 Loratadine 10 Mg Tablet PO Not Given DAILY SAL Ondansetron HCl 4 mg 08/06/24 21:36 08/15/24 13:54 Ondansetron Inj 4 Mg/2 Ml Vial IV PUSH 4 mg Q4H PRN Administration Nausea Ondansetron HCl 4 mg 08/07/24 11:08 Ondansetron Inj 4 Mg/2 Ml Vial IV PUSH ONCE PRN Nausea Pantoprazole Sodium 40 mg 08/08/24 09:00 08/20/24 08:09 Pantoprazole Sodium Iv 40 Mg Vial IV PUSH 40 mg QAM SAL Administration Phenol 1 spray 08/12/24 07:50 Phenol/Sod Pheno [place] (*Bkc) MUCOUS MEM PRN PRN Sore Throat Polyethylene Glycol 17 gm 08/16/24 11:01 Polyethylene Glycol 3350 17 Gm Powd.Pack PO QAM PRN Constipation Sodium Chloride 10 ml 08/07/24 06:00 08/20/24 05:18 Central Line Flush IV PUSH Not Given Q8HR SAL Sodium Chloride 20 ml 08/07/24 02:32 08/19/24 06:07 Central Line Flush IV PUSH 20 ml PRN PRN Administration after blood draws Topiramate 25 mg 08/07/24 09:00 08/20/24 08:09 Topiramate 25 Mg Tablet PO 25 mg Q12HR SAL Administration Radiology Results: ITS Impressions Abdomen Ultrasound 08/06/24 20:18 IMPRESSION: Single lamellated stone within the gallbladder with a sonographic Berry sign. Retrograde Pyelogram 08/07/24 12:44 IMPRESSION: 1. Right internal ureteral stent in expected position. Renal Ultrasound 08/07/24 15:17 IMPRESSION: No definite abnormality seen. Chest/Abdomen/Pelvis CT 08/13/24 14:47 IMPRESSION: 1. Patchy bilateral groundglass opacities in the lungs and favor pneumonia over pulmonary edema with differential also including less likely hypersensitivity pneumonitis or eosinophilic pneumonia. 2. Small bilateral pleural effusions. 3. Cholelithiasis. 4. Bilateral nephrolithiasis more prominent on the right with right internal ure teral stent in expected position. No hydronephrosis. 5. Moderate diverticulosis. 6. Moderate-sized fat-containing umbilical hernia. Chest X-Ray 08/16/24 12:51 IMPRESSION: 1. Scattered linear discoid atelectasis in the right mid to lower and left lower lung zones. Labs Labs: Laboratory Results - last 24 hr 08/20/24 05:20 WBC 9.9 RBC 2.68 L Hgb 8.8 L Hct 27.2 L MCV 101.5 H MCH 32.8 MCHC 32.4 RDW 18.6 H Plt Count 287 MPV 9.5 Sodium 137 Potassium 4.4 Chloride 107 Carbon Dioxide 24 Anion Gap 6 BUN 10 Creatinine 0.76 Estim Creat Clear Calc 79 Estimated GFR > 60 Glucose 76 Calcium 8.6 Phosphorus 2.5 Magnesium 1.9 Total Bilirubin 0.9 AST 91 H ALT 67 H Alkaline Phosphatase 195 H Total Protein 6.0 L Albumin 2.6 L
[2024-08-20 10:20] LABS: Abnormal Protein Band 1 0.1 g/dL (NONE DETECTED); Albumin 2.3 g/dL (3.8-4.8); Alpha 1 Globulin 0.4 g/dL (0.2-0.3); Alpha 2 Globulin 0.9 g/dL (0.5-0.9); Beta 1 Globulin 0.3 g/dL (0.4-0.6); Gamma Globulin 1.2 g/dL (0.8-1.7)
[2024-08-20] MEDS: cefTRIAXone 2 GM/NS 100 ML 2 GM/100 ML BAG IVPB (10:52)
[2024-08-21] VITALS (10 sets, daily range): BP systolic 104–146; BP diastolic 54–64; PULSE 81–96; RESP 16–20; TEMP 36.6–36.8; O2SAT 93–99
[2024-08-21 06:14] LABS: Hematocrit 28.2 % (37.0-47.0); Hemoglobin 9.1 g/dL (12.0-15.0); Mean Corpuscular HGB Conc 32.3 g/dl (32-36); Mean Corpuscular Hemoglobin 32.4 pg (26-34); Mean Corpuscular Volume 100.4 fl (80-100); Mean Platelet Volume 8.7 fl (7.4-10.4); Platelet Count Result 273 k/mm3 (150-375); Red Blood Count 2.81 M/mm3 (4.2-5.4); Red Cell Distribution Width 18.6 % (11.5-14.5); White Blood Count 9.1 K/mm3 (4.5-10.0)
[2024-08-21 06:38] LABS: Alanine Aminotransferase 57 U/L (6-35); Albumin Level 2.8 g/dL (3.5-5.1); Alkaline Phosphatase 176 U/L (38-126); Anion Gap 6 mmol/L (4-12); Aspartate Amino Transferase 78 U/L (14-36); Bilirubin,Total 0.7 mg/dL (0.2-1.3); Blood Urea Nitrogen 8 mg/dL (7-17); Calcium 8.8 mg/dL (8.4-10.2); Carbon Dioxide 24 mmol/L (22-30); Chloride 107 mmol/L (98-107); Estimated CRCL calculation 82 ml/min; Estimated Glomerular Filt Rate > 60; Glucose 75 mg/dL (65-110); Phosphorus 2.4 mg/dL (2.5-4.5); Potassium 4.3 mmol/L (3.4-5.0); Sodium 137 mmol/L (137-145)
--- NOTE | 2024-08-21 08:27 | P.PNIM_ITS ---
Progress Note: A&P Assessment and Plan (1) Heart failure: Code(s): I50.9 - Heart failure, unspecified Status: Acute (2) Positive urine drug screen: Code(s): R82.5 - Elevated urine levels of drugs, medicaments and biological substances Status: Acute (3) Pulmonary hypertension: Code(s): I27.20 - Pulmonary hypertension, unspecified Status: Acute (4) Non-ST elevation HI (NSTEMI): Code(s): I21.4 - Non-ST elevation (NSTEMI) myocardial infarction Status: Acute (5) Atrial fibrillation: Qualifiers: Atrial fibrillation type: paroxysmal Qualified Code(s): I48.0 - Paroxysmal atrial fibrillation Code(s): I48.91 - Unspecified atrial fibrillation Status: Acute (6) Morbid obesity with BMI of 45.0-49.9, adult: Code(s): E66.01 - Morbid (severe) obesity due to excess calories; Z68.42 - Body mass index [BMI] 45.0-49.9, adult Status: Acute (7) Acute renal failure: Qualifiers: Acute renal failure type: unspecified Qualified Code(s): N17.9 - Acute kidney failure, unspecified Code(s): N17.9 - Acute kidney failure, unspecified Status: Acute (8) TOÑA (acute kidney injury): Code(s): N17.9 - Acute kidney failure, unspecified Status: Acute (9) Septic shock: Code(s): A41.9 - Sepsis, unspecified organism; R65.21 - Severe sepsis with septic shock Status: Acute (10) Acute respiratory failure with hypoxia: Code(s): J96.01 - Acute respiratory failure with hypoxia Status: Acute Plan (1) Septic shock: Code(s): A41.9 - Sepsis, unspecified organism; R65.21 - Severe sepsis with septic shock Status: Acute Assessment and Plan: 08/06: Patient presented with generalized weakness, hypovolemia, hypotension, leukocytosis, was found to be in septic shock, likely related to UTI and hypovolemia -patient was adequately fluid resuscitated and is off of crystalloids -continue dopamine for bradycardia and hypotension, maintain MAP > 65 mmHg for adequate end organ perfusion and heart rate above 50 -08/06: Blood cultures growing Proteus mirabilis which is pansensitive -08/10 repeat blood cultures ordered as patient will likely need pacemaker. Results negative till now -patient is afebrile and overall improved but white count still elevated. Repeat CT scan was done -swallow evaluation done to rule out any aspiration. No evidence of aspiration seen on bedside swallow as per speech therapy -antibiotics changed from cefepime to p.o. Augmentin to cover for both urine and pneumonia -08/16: Patient was started on Levophed on 08/15 after getting the permanent pacemaker placed. WBC count has increased, patient remains afebrile. Chest x- ray showed discoid atelectasis. If patient does not improve may have to look again at cholelithiasis which may be causing cholecystitis. -Augmentin to be discontinued, patient started on ceftriaxone (08/16) Blood cultures and urine culture obtained on August 16 negative better growth so far (08/19) Continue ceftriaxone IV 2 g daily 08/19 blood culture positive of Proteus mirabilis on August 06, repeat blood culture on August 10 negative of bateria growth will continue ceftriaxone 2 gm iv for total 2 wks after 08/16 since the pt has a PPM till 08/24 Bacteremia See above Pneumonia 08/14 CT chest abdomen pelvis IMPRESSION: 1. Patchy bilateral groundglass opacities in the lungs and favor pneumonia over pulmonary edema with differential also including less likely hypersensitivity pneumonitis or eosinophilic pneumonia. 2. Small bilateral pleural effusions. Antibiotics see above UTI (urinary tract infection): Qualifiers: Hematuria presence: with hematuria Urinary tract infection type: acute cystitis Qualified Code(s): N30.01 - Acute cystitis with hematuria Code(s): N39.0 - Urinary tract infection, site not specified Status: Acute Assessment and Plan: UTI could be related to staghorn calculus in the right kidney or cystitis -antibiotics as above Staghorn calculus: Code(s): N20.0 - Calculus of kidney Status: Acute Assessment and Plan: 08/06: CT chest abdomen and pelvis: Findings within the chest suggesting pulmonary hypertension.Staghorn calculus within the right kidney with global enlargement of the right kidney and surrounding inflammatory change. Lamellated stone within the gallbladder without additional abnormality. Punctate foci of air within the bladder with surrounding inflammatory change suggesting cystitis. Fibroid uterus, enlarged for a patient of this age. Nonobstructing fat- containing umbilical hernia. 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 08/07 status post Cystoscopy, right retrograde, right ureteral stent placement 6 Khmer contour, Stafford catheter placement Bradyarrhythmia: Code(s): I49.8 - Other specified cardiac arrhythmias Status: Acute Assessment and Plan: Patient has Moreno cardia which appears to be junctional rhythm. home meds: amiodarone, Coreg on hold Received dopamine for bradycardia and hypotension. Continue to titrate status post permanent pacemaker rate was increased to 80 as patient was hypotensive with rates in the 60s (5) Acute renal failure: Qualifiers: Acute renal failure type: unspecified Qualified Code(s): N17.9 - Acute kidney failure, unspecified Code(s): N17.9 - Acute kidney failure, unspecified Status: Acute Assessment and Plan: Acute renal failure likely related to hypovolemia, decreased oral intake, says septic shock/infection Improved with IV fluids and creatinine trending down and close to normal, urine output improved -continue to monitor urine output, renal function electrolytes -nephrology was consulted from ER -creatinine has normalized (6) Electrolyte imbalance: Code(s): E87.8 - Other disorders of electrolyte and fluid balance, not elsewhere classified Status: Acute Assessment and Plan: Replace phosphorus (7) Atrial fibrillation: Qualifiers: Atrial fibrillation type: paroxysmal Qualified Code(s): I48.0 - Paroxysmal atrial fibrillation Code(s): I48.91 - Unspecified atrial fibrillation Status: Acute Assessment and Plan: Patient has a history of atrial fibrillation on Eliquis at home. She takes amiodarone and Coreg at home -currently bradycardic and hypotensive -continue to hold home medications -hold Eliquis as patient has cystoscopy and has hematuria and will likely need permanent pacemaker -discussed with cardiology [employer] Haven Alonso, regarding restarting an ticoagulation, stated that once the patient comes to the office for her incision check, it is at at that time the periodontal assistant will decide, (8) Cholelithiasis without cholecystitis: Code(s): K80.20 - Calculus of gallbladder without cholecystitis without obstruction Status: Acute Assessment and Plan: Ultrasound shows large single gallbladder stone. Radiologic Berry sign was positive. No other changes of cholecystitis or obstruction was seen. evaluated by general surgery and recommended conservative management at this time. No plan for surgical intervention (9) Transaminitis: Code(s): R74.01 - Elevation of levels of liver transaminase levels Status: Acute Assessment and Plan: Multifactorial. Improved Monitor. (10) Hematuria: Code(s): R31.9 - Hematuria, unspecified Status: Acute Assessment and Plan: has resolved. Anticoagulation still on hold per cardiology (11) Pneumonia: Code(s): J18.9 - Pneumonia, unspecified organism Status: Acute Assessment and Plan: see above Subjective Date/time seen: 08/21/24 08:27 Interval history: No new issue even over the night. Patient has general weakness, denies chest pain, palpitation abdomen pain nausea vomiting diarrhea. Patient afebrile, blood pressure stable. Labs reviewed, anemia stable chemistry unremarkable Exam Narrative: General: Pleasant female in no acute distress HEENT:? Pupils equal and reactive, sclera is clear, moist oral mucosa, some Neck:? Supple Respiratory:? Clear to auscultation bilaterally, decreased breath sounds at bases, adequate air entry, no wheeze, Cardiac:? Paced rhythm, tenderness over the pacemaker pocket, wound is well dressed, dressing is dry and clean Abdomen:? Soft, morbid obesity, tender to palpation around the umbilicus, normoactive bowel sounds Extremities:? Trace edema, palpable pedal pulses Neuro:? Patient is awake, alert, oriented x 3 Skin:? Warm and dry Psych:? Flat affect Objective Data Vital Signs Vital Signs: Vital Signs - 24 hr 08/20/24 08:32 08/20/24 12:00 08/20/24 12:36 Temperature 97.0 F L 97.1 F L Pulse Rate 82 82 83 Respiratory Rate 17 17 Blood Pressure 134/60 123/61 Pulse Oximetry 98 100 Oxygen Delivery Oxygen Flow Rate Fraction of Inspired Oxygen 08/20/24 16:00 08/20/24 16:33 08/20/24 20:00 Temperature 98.2 F 98.0 F Pulse Rate 83 82 83 Respiratory Rate 17 20 Blood Pressure 136/56 L 129/54 L Pulse Oximetry 99 98 Oxygen Delivery Oxygen Flow Rate Fraction of Inspired Oxygen 08/20/24 20:00 08/20/24 20:00 08/20/24 23:51 Temperature 98.0 F Pulse Rate 83 83 80 Respiratory Rate 20 20 Blood Pressure 141/57 H Pulse Oximetry 98 100 Oxygen Delivery Nasal Cannula Oxygen Flow Rate 2 Fraction of Inspired Oxygen 08/21/24 00:00 08/21/24 04:00 08/21/24 04:00 Temperature 97.9 F Pulse Rate 85 83 82 Respiratory Rate 20 Blood Pressure 129/55 L Pulse Oximetry 97 Oxygen Delivery Oxygen Flow Rate Fraction of Inspired Oxygen Intake/Output Intake/Output: Intake & Output 08/18/24 08/19/24 08/20/24 08/21/24 23:59 23:59 23:59 23:59 Intake Total 0709 313 6051 240 Output Total 125 600 200 Balance 1190 670 590 40 Meds/Results Medications: Active Medications Generic Name Dose Route Start Last Admin Trade Name Freq PRN Reason Stop Dose Admin Acetaminophen 650 mg 08/06/24 21:36 08/17/24 09:00 Acetaminophen 325 Mg Tablet PO 650 mg Q4H PRN Administration Mild Pain (1-3) or Fever Hydrocodone Bitart/Acetaminophen 1 tab 08/07/24 15:27 08/20/24 20:18 Hydrocodone/Acetaminophen (*Crx) 5-325 Mg Tablet PO 1 tab Q6H PRN Administration Pain Rated 4-6 Alteplase, Recombinant 2 mg 08/15/24 20:45 08/15/24 21:22 Alteplase 2 Mg Vial (Cathflo) IV PUSH 2 mg ONCE PRN Administration Line Occlusion Apixaban 2.5 mg 08/07/24 09:00 Apixaban 2.5 Mg Tablet PO Q12HR SAL Bisacodyl 10 mg 08/16/24 11:01 Bisacodyl 10 Mg Suppository RECTAL QAM PRN Constipation Bupropion HCl 150 mg 08/07/24 09:00 08/20/24 20:18 Bupropion Hcl Sr (12 Hr) 150 Mg Tab PO 150 mg Q12HR SAL Administration Fluoxetine HCl 20 mg 08/07/24 09:00 08/20/24 08:09 Fluoxetine Hcl 20 Mg Capsule PO 20 mg DAILY SAL Administration Fluticasone Propionate 1 spray 08/07/24 09:00 08/20/24 08:10 Fluticasone Propionate 0.05% Na Spr 16 Gm Btl (*Bkc) NASAL 1 spray DAILY SAL Administration Ceftriaxone Sodium 2 gm in 100 mls @ 200 mls/hr 08/16/24 11:00 08/20/24 10:52 Rocephin 2 Gm/Ns 100 Ml IVPB 08/23/24 23:59 200 mls/hr Q24H SAL Administration Loratadine 10 mg 08/07/24 09:00 08/07/24 10:10 Loratadine 10 Mg Tablet PO Not Given DAILY SAL Ondansetron HCl 4 mg 08/06/24 21:36 08/15/24 13:54 Ondansetron Inj 4 Mg/2 Ml Vial IV PUSH 4 mg Q4H PRN Administration Nausea Ondansetron HCl 4 mg 08/07/24 11:08 Ondansetron Inj 4 Mg/2 Ml Vial IV PUSH ONCE PRN Nausea Pantoprazole Sodium 40 mg 08/08/24 09:00 08/20/24 08:09 Pantoprazole Sodium Iv 40 Mg Vial IV PUSH 40 mg QAM SAL Administration Phenol 1 spray 08/12/24 07:50 Phenol/Sod Pheno [place] (*Bkc) MUCOUS MEM PRN PRN Sore Throat Polyethylene Glycol 17 gm 08/16/24 11:01 Polyethylene Glycol 3350 17 Gm Powd.Pack PO QAM PRN Constipation Sodium Chloride 20 ml 08/07/24 02:32 08/19/24 06:07 Central Line Flush IV PUSH 20 ml PRN PRN Administration after blood draws Topiramate 25 mg 08/07/24 09:00 08/20/24 20:18 Topiramate 25 Mg Tablet PO 25 mg Q12HR SAL Administration Radiology Results: ITS Impressions Abdomen Ultrasound 08/06/24 20:18 IMPRESSION: Single lamellated stone within the gallbladder with a sonographic Berry sign. Retrograde Pyelogram 08/07/24 12:44 IMPRESSION: 1. Right internal ureteral stent in expected position. Renal Ultrasound 08/07/24 15:17 IMPRESSION: No definite abnormality seen. Chest/Abdomen/Pelvis CT 08/13/24 14:47 IMPRESSION: 1. Patchy bilateral groundglass opacities in the lungs and favor pneumonia over pulmonary edema with differential also including less likely hypersensitivity pneumonitis or eosinophilic pneumonia. 2. Small bilateral pleural effusions. 3. Cholelithiasis. 4. Bilateral nephrolithiasis more prominent on the right with right internal ureteral stent in expected position. No hydronephrosis. 5. Moderate diverticulosis. 6. Moderate-sized fat-containing umbilical hernia. Chest X-Ray 08/16/24 12:51 IMPRESSION: 1. Scattered linear discoid atelectasis in the right mid to lower and left lower lung zones. Labs Labs: Laboratory Results - last 24 hr 08/08/24 08/21/24 05:32 05:49 WBC 9.1 RBC 2.81 L Hgb 9.1 L Hct 28.2 L MCV 100.4 H MCH 32.4 MCHC 32.3 RDW 18.6 H Plt Count 273 MPV 8.7 Sodium 137 Potassium 4.3 Chloride 107 Carbon Dioxide 24 Anion Gap 6 BUN 8 Creatinine 0.73 Estim Creat Clear Calc 82 Estimated GFR > 60 Glucose 75 Calcium 8.8 Phosphorus 2.4 L Magnesium 2.0 Total Bilirubin 0.7 AST 78 H ALT 57 H Alkaline Phosphatase 176 H Total Protein 6.0 L Albumin 2.3 L 2.8 L Epttg-3-Cyuuaicgr 0.4 H Vhepc-6-Llxwzdkvq 0.9 Xjjk-1-Lmyhoxzb 0.3 L Xfuy-1-[place]lagik 0.5 Gamma Globulins 1.2 Abnorm Protein Band 1 0.1 H PEP Interpretation See note
[2024-08-21] MEDS: PANTOPRAZOLE SODIUM IV 40 MG VIAL IV PUSH (09:38)
[2024-08-21] MEDS: FLUTICASONE PROPIONATE 0.05% NA SPR 16 GM BTL (*BKC) 1 SPRAY NASAL (09:38)
[2024-08-21] MEDS: FLUoxetine HCL 20 MG CAPSULE PO (09:38)
[2024-08-21] MEDS: buPROPion HCL SR (12 HR) 150 MG TAB PO ×2 (09:38→20:35)
[2024-08-21] MEDS: TOPIRAMATE 25 MG TABLET PO ×2 (09:38→20:35)
[2024-08-21] MEDS: cefTRIAXone 2 GM/NS 100 ML 2 GM/100 ML BAG IVPB (10:37)
[2024-08-22] VITALS (7 sets, daily range): BP systolic 125–146; BP diastolic 52–83; PULSE 68–85; RESP 12–20; TEMP 36.3–36.8; O2SAT 97–99
[2024-08-22] MEDS: PHENOL/SOD PHENO SPRAY CHERRY (*BKC) 1 SPRAY MUCOUS MEM (00:23)
--- NOTE | 2024-08-22 08:11 | P.PNIM_ITS ---
Progress Note: A&P Assessment and Plan (1) Heart failure: Code(s): I50.9 - Heart failure, unspecified Status: Acute (2) Positive urine drug screen: Code(s): R82.5 - Elevated urine levels of drugs, medicaments and biological substances Status: Acute (3) Pulmonary hypertension: Code(s): I27.20 - Pulmonary hypertension, unspecified Status: Acute (4) Non-ST elevation [place] (NSTEMI): Code(s): I21.4 - Non-ST elevation (NSTEMI) myocardial infarction Status: Acute (5) Atrial fibrillation: Qualifiers: Atrial fibrillation type: paroxysmal Qualified Code(s): I48.0 - Paroxysmal atrial fibrillation Code(s): I48.91 - Unspecified atrial fibrillation Status: Acute (6) Morbid obesity with BMI of 45.0-49.9, adult: Code(s): E66.01 - Morbid (severe) obesity due to excess calories; Z68.42 - Body mass index [BMI] 45.0-49.9, adult Status: Acute (7) Acute renal failure: Qualifiers: Acute renal failure type: unspecified Qualified Code(s): N17.9 - Acute kidney failure, unspecified Code(s): N17.9 - Acute kidney failure, unspecified Status: Acute (8) TOÑA (acute kidney injury): Code(s): N17.9 - Acute kidney failure, unspecified Status: Acute (9) Septic shock: Code(s): A41.9 - Sepsis, unspecified organism; R65.21 - Severe sepsis with septic shock Status: Acute (10) Acute respiratory failure with hypoxia: Code(s): J96.01 - Acute respiratory failure with hypoxia Status: Acute Plan (1) Septic shock: Code(s): A41.9 - Sepsis, unspecified organism; R65.21 - Severe sepsis with septic shock Status: Acute Assessment and Plan: 08/06: Patient presented with generalized weakness, hypovolemia, hypotension, leukocytosis, was found to be in septic shock, likely related to UTI and hypovolemia -patient was adequately fluid resuscitated and is off of crystalloids -continue dopamine for bradycardia and hypotension, maintain MAP > 65 mmHg for adequate end organ perfusion and heart rate above 50 -08/06: Blood cultures growing Proteus mirabilis which is pansensitive -08/10 repeat blood cultures ordered as patient will likely need pacemaker. Results negative till now -patient is afebrile and overall improved but white count still elevated. Repeat CT scan was done -swallow evaluation done to rule out any aspiration. No evidence of aspiration seen on bedside swallow as per speech therapy -antibiotics changed from cefepime to p.o. Augmentin to cover for both urine and pneumonia -08/16: Patient was started on Levophed on 08/15 after getting the permanent pacemaker placed. WBC count has increased, patient remains afebrile. Chest x- ray showed discoid atelectasis. If patient does not improve may have to look again at cholelithiasis which may be causing cholecystitis. -Augmentin to be discontinued, patient started on ceftriaxone (08/16) Blood cultures and urine culture obtained on August 16 negative better growth so far (08/19) Continue ceftriaxone IV 2 g daily 08/19 blood culture positive of Proteus mirabilis on August 06, repeat blood culture on August 10 negative of bateria growth will continue ceftriaxone 2 gm iv for total 2 wks after 08/16 since the pt has a PPM till 08/24 Bacteremia See above Pneumonia 08/14 CT chest abdomen pelvis IMPRESSION: 1. Patchy bilateral groundglass opacities in the lungs and favor pneumonia over pulmonary edema with differential also including less likely hypersensitivity pneumonitis or eosinophilic pneumonia. 2. Small bilateral pleural effusions. Antibiotics see above UTI (urinary tract infection): Qualifiers: Hematuria presence: with hematuria Urinary tract infection type: acute cystitis Qualified Code(s): N30.01 - Acute cystitis with hematuria Code(s): N39.0 - Urinary tract infection, site not specified Status: Acute Assessment and Plan: UTI could be related to staghorn calculus in the right kidney or cystitis -antibiotics as above Staghorn calculus: Code(s): N20.0 - Calculus of kidney Status: Acute Assessment and Plan: 08/06: CT chest abdomen and pelvis: Findings within the chest suggesting pulmonary hypertension.Staghorn calculus within the right kidney with global enlargement of the right kidney and surrounding inflammatory change. Lamellated stone within the gallbladder without additional abnormality. Punctate foci of air within the bladder with surrounding inflammatory change suggesting cystitis. Fibroid uterus, enlarged for a patient of this age. Nonobstructing fat- containing umbilical hernia. 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 08/07 status post Cystoscopy, right retrograde, right ureteral stent placement 6 Maltese contour, [place] catheter placement Bradyarrhythmia: Code(s): I49.8 - Other specified cardiac arrhythmias Status: Acute Assessment and Plan: Patient has Moreno cardia which appears to be junctional rhythm. home meds: amiodarone, Coreg on hold Received dopamine for bradycardia and hypotension. Continue to titrate status post permanent pacemaker rate was increased to 80 as patient was hypotensive with rates in the 60s (5) Acute renal failure: Qualifiers: Acute renal failure type: unspecified Qualified Code(s): N17.9 - Acute kidney failure, unspecified Code(s): N17.9 - Acute kidney failure, unspecified Status: Acute Assessment and Plan: Acute renal failure likely related to hypovolemia, decreased oral intake, says septic shock/infection Improved with IV fluids and creatinine trending down and close to normal, urine output improved -continue to monitor urine output, renal function electrolytes -nephrology was consulted from ER -creatinine has normalized (6) Electrolyte imbalance: Code(s): E87.8 - Other disorders of electrolyte and fluid balance, not elsewhere classified Status: Acute Assessment and Plan: Replace phosphorus (7) Atrial fibrillation: Qualifiers: Atrial fibrillation type: paroxysmal Qualified Code(s): I48.0 - Paroxysmal atrial fibrillation Code(s): I48.91 - Unspecified atrial fibrillation Status: Acute Assessment and Plan: Patient has a history of atrial fibrillation on Eliquis at home. She takes amiodarone and Coreg at home -currently bradycardic and hypotensive -continue to hold home medications -hold Eliquis as patient has cystoscopy and has hematuria and will likely need permanent pacemaker -discussed with cardiology SUPERVISOR [employer] Haven Alonso, regarding restarting an ticoagulation, stated that once the patient comes to the office for her incision check, it is at at that time the aerospace project engineer will decide, (8) Cholelithiasis without cholecystitis: Code(s): K80.20 - Calculus of gallbladder without cholecystitis without obstruction Status: Acute Assessment and Plan: Ultrasound shows large single gallbladder stone. Radiologic Berry sign was positive. No other changes of cholecystitis or obstruction was seen. evaluated by general surgery and recommended conservative management at this time. No plan for surgical intervention (9) Transaminitis: Code(s): R74.01 - Elevation of levels of liver transaminase levels Status: Acute Assessment and Plan: Multifactorial. Improved Monitor. (10) Hematuria: Code(s): R31.9 - Hematuria, unspecified Status: Acute Assessment and Plan: has resolved. Anticoagulation still on hold per cardiology (11) Pneumonia: Code(s): J18.9 - Pneumonia, unspecified organism Status: Acute Assessment and Plan: see above Subjective Date/time seen: 08/22/24 08:11 Interval history: No new issue even over the night. Patient has general weakness, denies chest pain, palpitation abdomen pain nausea vomiting diarrhea. Patient afebrile, blood pressure stable. Labs reviewed, anemia stable chemistry unremarkable. No new issue even over the night tenant relations coordinator is working on placement Exam Narrative: General: Pleasant female in no acute distress HEENT:? Pupils equal and reactive, sclera is clear, moist oral mucosa, some Neck:? Supple Respiratory:? Clear to auscultation bilaterally, decreased breath sounds at bases, adequate air entry, no wheeze, Cardiac:? Paced rhythm, tenderness over the pacemaker pocket, wound is well dressed, dressing is dry and clean Abdomen:? Soft, morbid obesity, tender to palpation around the umbilicus, normoactive bowel sounds Extremities:? Trace edema, palpable pedal pulses Neuro:? Patient is awake, alert, oriented x 3 Skin:? Warm and dry Psych:? Flat affect Objective Data Vital Signs Vital Signs: Vital Signs - 24 hr 08/21/24 09:09 08/21/24 09:48 08/21/24 10:33 Temperature Pulse Rate Respiratory Rate Blood Pressure Pulse Oximetry 93 97 96 Oxygen Delivery Nasal Cannula Nasal Cannula Nasal Cannula Oxygen Flow Rate 1 1 0.5 08/21/24 12:00 08/21/24 12:00 08/21/24 16:00 Temperature 98.2 F Pulse Rate 81 96 91 Respiratory Rate 16 16 Blood Pressure 125/58 L 146/64 H Pulse Oximetry 96 99 Oxygen Delivery Oxygen Flow Rate 08/21/24 16:00 08/21/24 19:44 08/21/24 20:00 Temperature 98.2 F Pulse Rate 81 81 82 Respiratory Rate 20 Blood Pressure 104/54 L Pulse Oximetry 97 Oxygen Delivery Oxygen Flow Rate 08/22/24 00:00 08/22/24 00:00 08/22/24 03:51 Temperature 97.4 F L 98.3 F Pulse Rate 83 81 68 Respiratory Rate 20 18 Blood Pressure 125/52 L 146/83 H Pulse Oximetry 97 99 Oxygen Delivery Oxygen Flow Rate 08/22/24 04:00 Temperature Pulse Rate 82 Respiratory Rate Blood Pressure Pulse Oximetry Oxygen Delivery Oxygen Flow Rate Intake/Output Intake/Output: Intake & Output 08/19/24 08/20/24 08/21/24 08/22/24 23:59 23:59 23:59 23:59 Intake Total 795 1290 1350 250 Output Total 680 215 6400 700 Balance 670 690 -250 -450 Meds/Results Medications: Active Medications Generic Name Dose Route Start Last Admin Trade Name Freq PRN Reason Stop Dose Admin Acetaminophen 650 mg 08/06/24 21:36 08/17/24 09:00 Acetaminophen 325 Mg Tablet PO 650 mg Q4H PRN Administration Mild Pain (1-3) or Fever Hydrocodone Bitart/Acetaminophen 1 tab 08/07/24 15:27 08/20/24 20:18 Hydrocodone/Acetaminophen (*Crx) 5-325 Mg Tablet PO 1 tab Q6H PRN Administration Pain Rated 4-6 Alteplase, Recombinant 2 mg 08/15/24 20:45 08/15/24 21:22 Alteplase 2 Mg Vial (Cathflo) IV PUSH 2 mg ONCE PRN Administration Line Occlusion Apixaban 2.5 mg 08/07/24 09:00 Apixaban 2.5 Mg Tablet PO Q12HR SAL Bisacodyl 10 mg 08/16/24 11:01 Bisacodyl 10 Mg Suppository RECTAL QAM PRN Constipation Bupropion HCl 150 mg 08/07/24 09:00 08/21/24 20:35 Bupropion Hcl Sr (12 Hr) 150 Mg Tab PO 150 mg Q12HR SAL Administration Fluoxetine HCl 20 mg 08/07/24 09:00 08/21/24 09:38 Fluoxetine Hcl 20 Mg Capsule PO 20 mg DAILY SAL Administration Fluticasone Propionate 1 spray 08/07/24 09:00 08/21/24 09:38 Fluticasone Propionate 0.05% Na Spr 16 Gm Btl (*Bkc) NASAL 1 spray DAILY SAL Administration Ceftriaxone Sodium 2 gm in 100 mls @ 200 mls/hr 08/16/24 11:00 08/21/24 11:10 Rocephin 2 Gm/Ns 100 Ml IVPB 08/23/24 23:59 Infused Q24H SAL Infusion Loratadine 10 mg 08/07/24 09:00 08/07/24 10:10 Loratadine 10 Mg Tablet PO Not Given DAILY SAL Ondansetron HCl 4 mg 08/06/24 21:36 08/15/24 13:54 Ondansetron Inj 4 Mg/2 Ml Vial IV PUSH 4 mg Q4H PRN Administration Nausea Ondansetron HCl 4 mg 08/07/24 11:08 Ondansetron Inj 4 Mg/2 Ml Vial IV PUSH ONCE PRN Nausea Pantoprazole Sodium 40 mg 08/08/24 09:00 08/21/24 09:38 Pantoprazole Sodium Iv 40 Mg Vial IV PUSH 40 mg QAM SAL Administration Phenol 1 spray 08/12/24 07:50 08/22/24 00:23 Phenol/Sod Pheno [place] (*Bkc) MUCOUS MEM 1 spray PRN PRN Administration Sore Throat Polyethylene Glycol 17 gm 08/16/24 11:01 Polyethylene Glycol 3350 17 Gm Powd.Pack PO QAM PRN Constipation Sodium Chloride 20 ml 08/07/24 02:32 08/19/24 06:07 Central Line Flush IV PUSH 20 ml PRN PRN Administration after blood draws Topiramate 25 mg 08/07/24 09:00 08/21/24 20:35 Topiramate 25 Mg Tablet PO 25 mg Q12HR SAL Administration Radiology Results: ITS Impressions Abdomen Ultrasound 08/06/24 20:18 IMPRESSION: Single lamellated stone within the gallbladder with a sonographic Berry sign. Retrograde Pyelogram 08/07/24 12:44 IMPRESSION: 1. Right internal ureteral stent in expected position. Renal Ultrasound 08/07/24 15:17 IMPRESSION: No definite abnormality seen. Chest/Abdomen/Pelvis CT 08/13/24 14:47 IMPRESSION: 1. Patchy bilateral groundglass opacities in the lungs and favor pneumonia over pulmonary edema with differential also including less likely hypersensitivity pneumonitis or eosinophilic pneumonia. 2. Small bilateral pleural effusions. 3. Cholelithiasis. 4. Bilateral nephrolithiasis more prominent on the right with right internal ureteral stent in expected position. No hydronephrosis. 5. Moderate diverticulosis. 6. Moderate-sized fat-containing umbilical hernia. Chest X-Ray 08/16/24 12:51 IMPRESSION: 1. Scattered linear discoid atelectasis in the right mid to lower and left lower lung zones. Labs Labs: Laboratory Results - last 24 hr 08/08/24 05:32 Abnorm Protein Band 3 Not Reportable
--- NOTE | 2024-08-22 08:12 | P.DS_ITS ---
DS: Admitting Diagnosis Discharge Date 08/22/24 Admitting Diagnosis (1) Heart failure: Code(s): I50.9 - Heart failure, unspecified Status: Acute (2) Positive urine drug screen: Code(s): R82.5 - Elevated urine levels of drugs, medicaments and biological substances Status: Acute (3) Pulmonary hypertension: Code(s): I27.20 - Pulmonary hypertension, unspecified Status: Acute (4) Non-ST elevation [place] (NSTEMI): Code(s): I21.4 - Non-ST elevation (NSTEMI) myocardial infarction Status: Acute (5) Atrial fibrillation: Qualifiers: Atrial fibrillation type: paroxysmal Qualified Code(s): I48.0 - Paroxysmal atrial fibrillation Code(s): I48.91 - Unspecified atrial fibrillation Status: Acute (6) Morbid obesity with BMI of 45.0-49.9, adult: Code(s): E66.01 - Morbid (severe) obesity due to excess calories; Z68.42 - Body mass index [BMI] 45.0-49.9, adult Status: Acute (7) Acute renal failure: Qualifiers: Acute renal failure type: unspecified Qualified Code(s): N17.9 - Acute kidney failure, unspecified Code(s): N17.9 - Acute kidney failure, unspecified Status: Acute (8) TOÑA (acute kidney injury): Code(s): N17.9 - Acute kidney failure, unspecified Status: Acute (9) Septic shock: Code(s): A41.9 - Sepsis, unspecified organism; R65.21 - Severe sepsis with septic shock Status: Acute (10) Acute respiratory failure with hypoxia: Code(s): J96.01 - Acute respiratory failure with hypoxia Status: Acute DS: Discharge Diagnosis Discharge Diagnosis (1) Heart failure: Code(s): I50.9 - Heart failure, unspecified Status: Acute (2) Positive urine drug screen: Code(s): R82.5 - Elevated urine levels of drugs, medicaments and biological substances Status: Acute (3) Pulmonary hypertension: Code(s): I27.20 - Pulmonary hypertension, unspecified Status: Acute (4) Non-ST elevation [place] (NSTEMI): Code(s): I21.4 - Non-ST elevation (NSTEMI) myocardial infarction Status: Acute (5) Atrial fibrillation: Qualifiers: Atrial fibrillation type: paroxysmal Qualified Code(s): I48.0 - P aroxysmal atrial fibrillation Code(s): I48.91 - Unspecified atrial fibrillation Status: Acute (6) Morbid obesity with BMI of 45.0-49.9, adult: Code(s): E66.01 - Morbid (severe) obesity due to excess calories; Z68.42 - Body mass index [BMI] 45.0-49.9, adult Status: Acute (7) Acute renal failure: Qualifiers: Acute renal failure type: unspecified Qualified Code(s): N17.9 - Acute kidney failure, unspecified Code(s): N17.9 - Acute kidney failure, unspecified Status: Acute (8) TOÑA (acute kidney injury): Code(s): N17.9 - Acute kidney failure, unspecified Status: Acute (9) Septic shock: Code(s): A41.9 - Sepsis, unspecified organism; R65.21 - Severe sepsis with septic shock Status: Acute (10) Acute respiratory failure with hypoxia: Code(s): J96.01 - Acute respiratory failure with hypoxia Status: Acute DS: Summary Hospital Course Hospital Course: 79-year-old female with a past medical history of p.r.n. oxygen requirement, CHF, atrial fibrillation on chronic anticoagulation, depression, and essential hypertension who presented to the ER via EMS from home from home due to decreased oral intake since and generalized weakness. EMS found the patient laying in a urine and feces soaked mattress. The patient states that she lives with her of 40 years. She was discharged from acute rehab shortly before . She denies any fevers or chills. She has been having bilateral lower abdominal pain is cramping and aching in nature. Is accompanied by 2 weeks of dysuria. She denies any nausea or vomiting. Denies fevers or chills. She denies any shortness of breath. She reports that she is chronically constipated and did have 1 large soft stool on arrival to the ER. But again EMS found the patient on a urine and stool soaked mattress at home. Patient is alert orient x4. Source of information comes from ER physician report and on patient report. Patient is only a fair historian at best. She really denies history of heart failure but is on Entresto spironolactone and Lasix at home. She does have a history of paroxysmal atrial fibrillation and is on amiodarone and Eliquis chronically. She denies history of kidney disease but is on sodium phosphate supplementation. She reports that her mouth feels extremely dry and keeps asking for water. She states that she had been in a rehab placement sounds like for quite some time prior to being released. Although it does not sound like she recovered much of her functional status before being discharged home. She is chronically incontinent of urine. On arrival to the ER patient was markedly hypotensive with systolic blood pressures in the 60s. Patient received 2 L fluid bolus in the ER with initial improvement in blood pressures but recurrent hypotension occurred and she received 1/3 L fluid bolus. Active through the bolus patient's blood pressures did, for an indeterminate amount time but she was still having intermittent low blood pressures. By the time I arrived to the patient's bedside she was again persistently hypotensive in both upper extremities. Her blood pressures were in the 60 systolic. And I gave an additional order for Force L of fluids and to start the patient on peripheral dopamine. Because patient was also persistently bradycardic with heart rates in the low 40s. The patient reports that she continued to take all of her home medications even though she was progressively more weak, not eating and drinking and was extremely lightheaded. Labs in the ER demonstrated leukocytosis with bandemia. Acute kidney injury (suspected underlying chronic kidney disease with baseline unknown) and hypokalemia, hyperbilirubinemia, transaminitis, lactic acidosis and hypoalbuminemia. Her opiate screen was positive but patient does not have any known prescriptions for opiate pain medications and did not receive pain medications in the ER. Her UA was turbid and red in color with greater than 100 RBCs greater than 100 wbc's in many squamous epithelials with 4+ bacteria. CT of the chest abdomen pelvis without contrast demonstrated findings consistent of pulmonary hypertension, staghorn calculus within the right kidney with global enlargement of the right kidney with inflammatory changes, punctate foci of air in the bladder with surrounding inflammatory changes suggesting cystitis, laminated stone within the gallbladder without evidence of inflammation, enlarged uterus with uterine fibroids enlarged for patient's age, nonobstructing fat containing hernia of the umbilicus The following med issues have been addressed during hospitalization (1) Septic shock: Code(s): A41.9 - Sepsis, unspecified organism; R65.21 - Severe sepsis with septic shock Status: Acute Assessment and Plan: 08/06: Patient presented with generalized weakness, hypovolemia, hypotension, leukocytosis, was found to be in septic shock, likely related to UTI and hypovolemia -patient was adequately fluid resuscitated and is off of crystalloids -continue dopamine for bradycardia and hypotension, maintain MAP > 65 mmHg for adequate end organ perfusion and heart rate above 50 -08/06: Blood cultures growing Proteus mirabilis which is pansensitive -08/10 repeat blood cultures ordered as patient will likely need pacemaker. Results negative till now -patient is afebrile and overall improved but white count still elevated. Repeat CT scan was done -swallow evaluation done to rule out any aspiration. No evidence of aspiration seen on bedside swallow as per speech therapy -antibiotics changed from cefepime to p.o. Augmentin to cover for both urine and pneumonia -08/16: Patient was started on Levophed on 08/15 after getting the permanent pacemaker placed. WBC count has increased, patient remains afebrile. Chest x- ray showed discoid atelectasis. If patient does not improve may have to look again at cholelithiasis which may be causing cholecystitis. -Augmentin to be discontinued, patient started on ceftriaxone (08/16) Blood cultures and urine culture obtained on August 16 negative better growth so far (08/19) Continue ceftriaxone IV 2 g daily 08/19 blood culture positive of Proteus mirabilis on August 06, repeat blood culture on August 10 negative of bateria growth will continue ceftriaxone 2 gm iv for total 2 wks after 08/16 since the pt has a PPM till 08/24 Bacteremia See above Pneumonia 08/14 CT chest abdomen pelvis IMPRESSION: 1. Patchy bilateral groundglass opacities in the lungs and favor pneumonia over pulmonary edema with differential also including less likely hypersensitivity pneumonitis or eosinophilic pneumonia. 2. Small bilateral pleural effusions. Antibiotics see above UTI (urinary tract infection): Qualifiers: Hematuria presence: with hematuria Urinary tract infection type: acute cystitis Qualified Code(s): N30.01 - Acute cystitis with hematuria Code(s): N39.0 - Urinary tract infection, site not specified Status: Acute Assessment and Plan: UTI could be related to staghorn calculus in the right kidney or cystitis -antibiotics as above Staghorn calculus: Code(s): N20.0 - Calculus of kidney Status: Acute Assessment and Plan: 08/06: CT chest abdomen and pelvis: Findings within the chest suggesting pulmonary hypertension.Staghorn calculus within the right kidney with global enlargement of the right kidney and surrounding inflammatory change. Lamellated stone within the gallbladder without additional abnormality. Punctate foci of air within the bladder with surrounding inflammatory change suggesting cystitis. Fibroid uterus, enlarged for a patient of this age. Nonobstructing fat- containing umbilical hernia. 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 08/07 status post Cystoscopy, right retrograde, right ureteral stent placement 6 [place] contour, Stafford catheter placement Bradyarrhythmia: Code(s): I49.8 - Other specified cardiac arrhythmias Status: Acute Assessment and Plan: Patient has Moreno cardia which appears to be junctional rhythm. home meds: amiodarone, Coreg on hold Received dopamine for bradycardia and hypotension. Continue to titrate status post permanent pacemaker rate was increased to 80 as patient was hypotensive with rates in the 60s (5) Acute renal failure: Qualifiers: Acute renal failure type: unspecified Qualified Code(s): N17.9 - Acute kidney failure, unspecified Code(s): N17.9 - Acute kidney failure, unspecified Status: Acute Assessment and Plan: Acute renal failure likely related to hypovolemia, decreased oral intake, says septic shock/infection Improved with IV fluids and creatinine trending down and close to normal, urine output improved -continue to monitor urine output, renal function electrolytes -nephrology was consulted from ER -creatinine has normalized (6) Electrolyte imbalance: Code(s): E87.8 - Other disorders of electrolyte and fluid balance, not elsewhere classified Status: Acute Assessment and Plan: Replace phosphorus (7) Atrial fibrillation: Qualifiers: Atrial fibrillation type: paroxysmal Qualified Code(s): I48.0 - Paroxysmal atrial fibrillation Code(s): I48.91 - Unspecified atrial fibrillation Status: Acute Assessment and Plan: Patient has a history of atrial fibrillation on Eliquis at home. She takes amiodarone and Coreg at home -currently bradycardic and hypotensive -continue to hold home medications -hold Eliquis as patient has cystoscopy and has hematuria and will likely need permanent pacemaker -discussed with cardiology POWER SYSTEMS ENGINEER Haven Alonso, regarding restarting anticoagulation, stated that once the patient comes to the office for her incision check, it is at at that time the automotive project engineer will decide, (8) Cholelithiasis without cholecystitis: Code(s): K80.20 - Calculus of gallbladder without cholecystitis without obstruction Status: Acute Assessment and Plan: Ultrasound shows large single gallbladder stone. Radiologic Berry sign was positive. No other changes of cholecystitis or obstruction was seen. evaluated by general surgery and recommended conservative management at this time. No plan for surgical intervention (9) Transaminitis: Code(s): R74.01 - Elevation of levels of liver transaminase levels Status: Acute Assessment and Plan: Multifactorial. Improved Monitor. (10) Hematuria: Code(s): R31.9 - Hematuria, unspecified Status: Acute Assessment and Plan: has resolved. Anticoagulation still on hold per cardiology (11) Pneumonia: Code(s): J18.9 - Pneumonia, unspecified organism Status: Acute Assessment and Plan: see above Time Spent with Patient Time attestation: Total time spent providing and/or coordinating discharge services: Exam Narrative: General: Pleasant female in no acute distress HEENT:? Pupils equal and reactive, sclera is clear, moist oral mucosa, some Neck:? Supple Respiratory:? Clear to auscultation bilaterally, decreased breath sounds at bases, adequate air entry, no wheeze, Cardiac:? Paced rhythm, tenderness over the pacemaker pocket, wound is well dressed, dressing is dry and clean Abdomen:? Soft, morbid obesity, tender to palpation around the umbilicus, normoactive bowel sounds Extremities:? Trace edema, palpable pedal pulses Neuro:? Patient is awake, alert, oriented x 3 Skin:? Warm and dry Psych:? Flat affect DS: Data Data Completed and Pending Labs on day of discharge: Labs from last 24 hours 08/08/24 05:32 Abnorm Protein Band 3 Not Reportable Discharge Plan Discharge Attending physician on discharge: Lupillo Dejesus Consulting providers: Mary Farrell; Colin Toribio; Havne Alonso Discharging Clinician: Lupillo Dejesus Anticipated Discharge Date/Time: 08/22/24 08:13 Patient Disposition: SNF Activity: as tolerated Diet: as tolerated and heart healthy Discharge Instructions: [facility] [address] [place] [address] DISCHARGE INSTRUCTIONS - POST PACEMAKER Activity 1. No driving until you are seen in the office for your incision check. 2. No lifting, pushing or pulling more than 5 pounds with affected arm for 1 MONTH 3. No lifting affected arm above shoulder height for 1 MONTH 4. Wear immobilizer/sling only if you are unable to remember the above activity restrictions. Recommend that it be worn at night. 5. You may shower AFTER you are seen for incision check but no tub baths, swimming pool or hot tub for 1MONTH Wound Care 1. Do not attempt to remove the Aquacel dressing. Leave dressing undisturbed until incision check at the office visit. Keep dressing dry. 2. When you are able to shower AFTER you are seen for your incision check in the office do not rub or scrub the incision. Pat dry after shower. NO lotions, powders, creams or ointments are to be applied to the incision 3. A small amount of tenderness, puffiness and bruising around the site is normal. Call if any significant pain, drainage, swelling, or redness around the site 4. Wear a bra to support the breast tissue and avoid pulling on the incision. Pad the bra strap if necessary with soft smooth cloth. *For any other questions please call the office at [phone]. Office hours are 8AM 4:30PM Tuesday through Tuesday. Patient Instructions: Apixaban (By mouth), Heart Failure (GEN), Suicide Prevention (GEN) Patient Language: Kittitian Stand Alone Forms: General Discharge Information Follow-up/Referrals: Haven Alonso APN-C [Advanced Practice Nurse] - (08/22/24 at 8:00. Arrive at 7:45.) Discharge Medications: New polyethylene glycol 3350 [Miralax] 17 gram Powder In Packet 17 g PO QAM PRN (Reason: Constipation) Qty: 30 0RF ceftriaxone 2 gram Recon Soln 2 g IV Q24H Qty: 2 0RF Continued atorvastatin 10 mg tablet 5 mg PO QPM bupropion HCl 150 mg tablet sustained-release 12 hr 150 mg PO BID sacubitril-valsartan [Entresto] 24-26 mg tablet 1 tablet PO BID fluoxetine 20 mg capsule 20 mg PO DAILY furosemide 40 mg tablet 40 mg PO DAILY loratadine 10 mg tablet 10 mg PO DAILY spironolactone 25 mg tablet 25 mg PO DAILY topiramate 25 mg tablet 25 mg PO BID Fan-Phos 250 Neutral 250 mg tablet 1 tablet PO QID albuterol sulfate 90 mcg/actuation HFA aerosol inhaler 1 inhalation INHALATION BID fluticasone propionate [Flonase Allergy Relief] 50 mcg/actuation spray,suspension 1 spray intranasal DAILY Rx Instructions: administer into each nostril Held amiodarone 200 mg tablet 200 mg PO DAILY Hold Instructions: Resume on 08/22/24. Resume per automotive project engineer after evaluation carvedilol 3.125 mg tablet 3.125 mg PO BID Hold Instructions: Resume on 08/22/24. Resume per automotive project engineer Eliquis 2.5 mg tablet 2.5 mg PO BID Hold Instructions: Resume on 08/22/24. Resume per automotive project engineer in the office Date of admission: 08/06/24 21:36 Primary Care Provider: UNKNOWN,DOCTOR Admitting Provider: Glenys Rose Attending physician on admission: Glenys Rose Condition: Serious
[2024-08-22] MEDS: FLUoxetine HCL 20 MG CAPSULE PO (08:29)
[2024-08-22] MEDS: TOPIRAMATE 25 MG TABLET PO (08:29)
[2024-08-22] MEDS: buPROPion HCL SR (12 HR) 150 MG TAB PO (08:30)
[2024-08-22] MEDS: PANTOPRAZOLE SODIUM IV 40 MG VIAL IV PUSH (08:30)
[2024-08-22] MEDS: FLUTICASONE PROPIONATE 0.05% NA SPR 16 GM BTL (*BKC) 1 SPRAY NASAL (08:30)
[2024-08-22] MEDS: cefTRIAXone 2 GM/NS 100 ML 2 GM/100 ML BAG IVPB (10:52)
[2024-08-22] MEDS: ONDANSETRON INJ 4 MG/2 ML VIAL IV PUSH (13:29)
== END 2024-08-22 15:30 | DRG 853 ==
LOC: ANHED 18:39 → ANHIMU 23:30 → ANHICU 08-07 00:23 → ANHIMU 08-17 23:32 → ANH2MED 08-22 08:13 → ANHIMU 08-23 09:09
PROVIDERS: Internal Medicine; Internal Medicine Nephrology; Specialist; Urology; Admitting Provider Internal Medicine; Emergency Provider Student in an Organized Health Care Education/Training Program; Visit Provider Hospitalist
PROC: 0T768DZ Dilation of Right Ureter with Intraluminal Device, Via Natural or Artificial Opening Endoscopic (ICD-10-PCS; CPT 52352; principal; 2024-08-07 11:30)
PROC: 0JH606Z Insertion of Pacemaker, Dual Chamber into Chest Subcutaneous Tissue and Fascia, Open Approach (ICD-10-PCS; CPT 33208; principal; 2024-08-15 10:00)
DX: A41.9 Sepsis, unspecified organism (principal); J18.9 Pneumonia, unspecified organism; J96.01 Acute respiratory failure with hypoxia; R65.21 Severe sepsis with septic shock; N17.9 Acute kidney failure, unspecified; Z68.42 Body mass index [BMI] 45.0-49.9, adult; I13.0 Hypertensive heart and chronic kidney disease with heart failure and stage 1 through stage 4 chronic kidney disease, or unspecified chronic kidney disease; E87.1 Hypo-osmolality and hyponatremia; E46 Unspecified protein-calorie malnutrition; I48.92 Unspecified atrial flutter; N39.0 Urinary tract infection, site not specified; I50.9 Heart failure, unspecified; N18.9 Chronic kidney disease, unspecified; E66.01 Morbid (severe) obesity due to excess calories; J44.9 Chronic obstructive pulmonary disease, unspecified; I48.0 Paroxysmal atrial fibrillation; I27.20 Pulmonary hypertension, unspecified; B96.4 Proteus (mirabilis) (morganii) as the cause of diseases classified elsewhere; E87.6 Hypokalemia; K42.9 Umbilical hernia without obstruction or gangrene; R00.1 Bradycardia, unspecified; E86.1 Hypovolemia; N20.0 Calculus of kidney; E88.09 Other disorders of plasma-protein metabolism, not elsewhere classified; D25.9 Leiomyoma of uterus, unspecified; Z66 Do not resuscitate; R32 Unspecified urinary incontinence; Z99.81 Dependence on supplemental oxygen; Z79.01 Long term (current) use of anticoagulants; I49.8 Other specified cardiac arrhythmias; K80.20 Calculus of gallbladder without cholecystitis without obstruction; R31.9 Hematuria, unspecified; I44.30 Unspecified atrioventricular block
CPT/HCPCS: 33208; 36415; 71045; 71250; 74176; 74420; 76705; 76775; 80053; 80202; 80307; 81001; 81050; 82550; 82570; 82948; 83605; 83735; 83880; 84100; 84145; 84155; 84156; 84165; 84166; 84300; 84443; 84484; 84540; 85025; 85027; 85610; 85730; 85999; 86704; 86706; 87040; 87086; 87186; 87340; 87637; 87641; 87651; 92611; 93005; 96361; 96365; 96366; 96367; 96368; 97110; 97161; 97165; 97530; 97535; 99285; A9270; C1751; C1758; C1769; C1779; C1785; C2617; C8929; J0690; J0692; J0696; J1265; J2003; J2060; J2250; J2405; J2470; J2704; J2997; J3010; J3370; J3475; J3480; J7030; J7040; J7050; J7120; J8540; P9047; Q9957; Q9966

== ENCOUNTER 2025-03-03 17:19 | Emergency (ER) | payer MEDICARE, SELFPAY ==
[2025-03-03] VITALS (21 sets, daily range): BP systolic 53–99; BP diastolic 34–74; PULSE 80–128; RESP 12–31; TEMP 35.9; O2SAT 92–97
--- NOTE | 2025-03-03 17:39 | ED.AMS ---
HPI - Altered Mental Status General Chief Complaint: Altered Mental Status Stated Complaint: AMS Time Seen by Provider: 03/03/25 17:19 History of Present Illness HPI narrative: 79-year-old female presenting from detention facility for concerns of mental status decline, nausea vomiting, abdominal pain. She had unstable vital signs and reportedly blood pressures in the 50 systolic, heart rate in the 160s. Hypoxia requiring oxygen. Patient presents via EMS and has signed DNR, DNI and comfort care measures only paperwork that was verified by the that presented later at bedside. Patient has been declining recently and not eating or drinking at all as well as complaining of pain. Patient has not been able to achieve comfort care at the facility and presents today. I discussed with the at bedside next steps including initiation of hospice care which he is wanting to undergo at this time. The patient herself is not able to provide collateral formation secondary to her mental status but is awake and appears in pain. Related Data Home Medications ?Medication ?Instructions ?Recorded ?Confirmed ?Last Taken ?Type albuterol sulfate 90 mcg/actuation 1 inhalation inhalation BID 08/07/24 08/07/24 Unknown History aerosol inhaler amiodarone 200 mg tablet 200 mg PO DAILY 08/07/24 08/07/24 Unknown History apixaban 2.5 mg tablet (Eliquis) 2.5 mg PO BID 08/07/24 08/07/24 Unknown History atorvastatin 10 mg tablet 5 mg PO QPM 08/07/24 08/07/24 Unknown History bupropion HCl 150 mg tablet,12 hr 150 mg PO BID 08/07/24 08/07/24 Unknown History sustained-release carvedilol 3.125 mg tablet 3.125 mg PO BID 08/07/24 08/07/24 Unknown History fluoxetine 20 mg capsule 20 mg PO DAILY 08/07/24 08/07/24 Unknown History fluticasone propionate 50 1 spray intranasal DAILY 08/07/24 08/07/24 Unknown History mcg/actuation nasal spray,suspension (Flonase Allergy Relief) furosemide 40 mg tablet 40 mg PO DAILY 08/07/24 08/07/24 Unknown History loratadine 10 mg tablet 10 mg PO DAILY 08/07/24 08/07/24 Unknown History sacubitril 24 mg-valsartan 26 mg 1 tablet PO BID 08/07/24 08/07/24 Unknown History tablet (Entresto) sodium di- and 1 tablet PO QID 08/07/24 08/07/24 Unknown History monophosphate-potassium phos monobasic 250 mg tablet (Fan-Phos Neutral) spironolactone 25 mg tablet 25 mg PO DAILY 08/07/24 08/07/24 Unknown History topiramate 25 mg tablet 25 mg PO BID 08/07/24 08/07/24 Unknown History Allergies Allergy/AdvReac Type Severity Reaction Status Date / Time quinapril Allergy Unknown Unknown Verified 03/03/25 17:36 Review of Systems Review of Systems: As reviewed above in HPI [facility] Past Medical History Medical History Paroxysmal atrial fibrillation Chronic anticoagulation Chronic kidney disease CHF (congestive heart failure) Morbid obesity with BMI of 45.0-49.9, adult HTN (hypertension) COPD (chronic obstructive pulmonary disease) Asthma Family History Family History Mother Kidney failure Social History Social History Social History: She lives with her of 48 years. She has 2 adult children who do not live nearby. She is a lifelong nonsmoker and denies any history of drug use. 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 She used to drink a couple of alcoholic beverages a week but has not done so in many years. Code status: After multiple conversations and discussion with multiple staff members the patient has decided that she would like to be a DNR/DNI. She would be okay with pressors and noninvasive ventilator support if needed but would not want cardiac resuscitation or intubation. Surrogate decision maker: Smoking status: Never smoker Alcohol intake: never Substance use: never Do You Feel Safe in your Home?: Yes Lack of Transportation: No Lack of Food: Never True Current Housing: I Have Housing Concerned About Future Housing: No Difficulty Paying Gas/Electric Bills: No Difficulty Paying for Meds: No Currently Unemployed: No Education: Decline to Answer Difficulty w/ Childcare or Family Care: No Living arrangements: with family Additional living arrangements comments: Spiritual care concerns: No Exam Narrative: GENERAL: Ill-appearing, in pain HEAD: Normocephalic EYES: [PERRLA and EOMI.] ENT: Nares clear, no rhinorrhea or epistaxis. Mucous membranes moist. NECK: Supple. CHEST: Coarse auscultation bilaterally with tachypnea HEART: [Regular rate and rhythm]. No murmur heard. [Normal peripheral pulses.] ABDOMEN: [Soft, nondistended], [nontender], [No rigidity or guarding] EXTREMITIES: Edematous legs SKIN: Warm, dry, no rash. NEURO: No obvious focal deficits. Alert but not oriented Course Vital Signs Vital signs: Vital Signs Temperature 35.9 C L 03/03/25 17:19 Pulse Rate 88 03/03/25 17:19 Respiratory Rate 12 03/03/25 17:19 Blood Pressure 62/47 L 03/03/25 17:19 Pulse Oximetry 97 03/03/25 17:19 Oxygen Delivery Room Air 03/03/25 17:19 Temperature 35.9 C L 03/03/25 17:19 Pulse Rate 97 03/03/25 19:01 Respiratory Rate 29 H 03/03/25 19:01 Blood Pressure 54/34 L 03/03/25 19:01 Pulse Oximetry 93 03/03/25 19:01 Oxygen Delivery Room Air 03/03/25 17:34 MDM - Altered Mental Status MDM Narrative Medical decision making narrative: 79-year-old female presenting from detention facility for concerns of mental status decline, nausea vomiting, abdominal pain. She had unstable vital signs and reportedly blood pressures in the 50 systolic, heart rate in the 160s. Hypoxia requiring oxygen. Patient presents via EMS and has signed DNR, DNI and comfort care measures only paperwork that was verified by the that presented later at bedside. Patient has been declining recently and not eating or drinking at all as well as complaining of pain. Patient has not been able to achieve comfort care at the facility and presents today. I discussed with the at bedside next steps including initiation of hospice care which he is wanting to undergo at this time. The patient herself is not able to provide collateral formation secondary to her mental status but is awake and appears in pain. Patient was initiated on a morphine infusion 4 milligrams/hour and I consulted hospice to, evaluated the patient at bedside. Hopeful for inpatient hospice status for peaceful passing with dignity. Hospice has evaluated the patient and agreeable with the plan for inpatient hospice on morphine infusion with as-needed pain medicines and Ativan ordered. Admission orders placed to Dr. Diggs. Medical Records Attestation: I reviewed the patient's medical records. Discharge Plan Discharge Clinical Impression: Admission for hospice care, Hypotension, Sepsis Patient Disposition: Hospice [facility] Inpatient Condition: Terminal Patient Language: Indonesian Prescriptions: No Action amiodarone 200 mg tablet 200 mg PO DAILY atorvastatin 10 mg tablet 5 mg PO QPM bupropion HCl 150 mg tablet sustained-release 12 hr 150 mg PO BID carvedilol 3.125 mg tablet 3.125 mg PO BID Eliquis 2.5 mg tablet 2.5 mg PO BID sacubitril-valsartan [Entresto] 24-26 mg tablet 1 tablet PO BID fluoxetine 20 mg capsule 20 mg PO DAILY furosemide 40 mg tablet 40 mg PO DAILY loratadine 10 mg tablet 10 mg PO DAILY spironolactone 25 mg tablet 25 mg PO DAILY topiramate 25 mg tablet 25 mg PO BID Fan-Phos 250 Neutral 250 mg tablet 1 tablet PO QID albuterol sulfate 90 mcg/actuation HFA aerosol inhaler 1 inhalation INHALATION BID fluticasone propionate [Flonase Allergy Relief] 50 mcg/actuation spray,suspension 1 spray intranasal DAILY Rx Instructions: administer into each nostril polyethylene glycol 3350 [Miralax] 17 gram Powder In Packet 17 g PO QAM PRN (Reason: Constipation) Qty: 30 0RF ceftriaxone 2 gram Recon Soln 2 g IV Q24H Qty: 2 0RF Follow-up/Referrals: UNKNOWN,DOCTOR [Primary Care Provider] - Time of Disposition: 19:11
[2025-03-03] MEDS: MORPHINE 50 MG/NS 100ML (*CRX) 50 MG/100 ML BAG 8 MG IV CONT (17:47)
--- NOTE | 2025-03-03 18:08 | PCCCNOTE ---
Called to ER for hospice referral. Pt is obtunded. Spoke with Dr. Casiano and pt and hospice is appropriate. [facility] contacted and will be out at approx 6:30PM to evaluate for [facility]IP admission.
[2025-03-03] MEDS: LORazepam INJ (*CRX) 2 MG/ML VIAL 1 MG IV PUSH (18:57)
[2025-03-03] MEDS: MORPHINE SULFATE (*CRX) 4 MG/ML INJ IV PUSH (18:57)
== END 2025-03-03 19:49 | disposition hospice, inpatient (51) ==
PROVIDERS: Emergency Provider Student in an Organized Health Care Education/Training Program
DX: A41.9 Sepsis, unspecified organism (principal); I95.9 Hypotension, unspecified; Z51.5 Encounter for palliative care; I48.0 Paroxysmal atrial fibrillation; I13.0 Hypertensive heart and chronic kidney disease with heart failure and stage 1 through stage 4 chronic kidney disease, or unspecified chronic kidney disease; N18.9 Chronic kidney disease, unspecified; I50.9 Heart failure, unspecified; E66.01 Morbid (severe) obesity due to excess calories; Z68.37 Body mass index [BMI] 37.0-37.9, adult; J44.9 Chronic obstructive pulmonary disease, unspecified; Z66 Do not resuscitate; Z79.01 Long term (current) use of anticoagulants; Z79.899 Other long term (current) drug therapy
CPT/HCPCS: 96374; 96375; 96376; 99285; A9270; J2060; J2270

== ENCOUNTER 2025-03-03 19:51 | HOS | payer OTHER, SELFPAY ==
[2025-03-03 20:14] VITALS: BP 45/28; PULSE 83; RESP 14; TEMP 35.8; O2SAT 93
[2025-03-03 22:25] VITALS: PULSE 83; RESP 14
[2025-03-04] VITALS (7 sets, daily range): BP systolic 48; BP diastolic 31; PULSE 36–70; RESP 4–20; TEMP 36.4; O2SAT 92–94; BMI 35.5
[2025-03-04] MEDS: MORPHINE 50 MG/NS 100ML (*CRX) 50 MG/100 ML BAG 8 MG IV CONT ×2 (05:43→18:04)
--- NOTE | 2025-03-04 12:28 | P.HP_ITS ---
H&P: HPI History of Present Illness Date/Time: 03/04/25 12:28 Chief Complaint: Uncontrolled pain and restlessness Narrative: 79 y/o f presented from [place] to ED 03/03 due to decreased oral intake, confusion, discomfort, restlessness. Labs showed anemia, hypoalbuminemia, elevated transaminases in 08/2024. Family opted for inpatient hospice service for symptom management. Review of Systems Review of Systems: ROS unobtainable: Yes unobtainable due to medical condition PMFSH Past Medical History Medical History Paroxysmal atrial fibrillation Chronic anticoagulation Chronic kidney disease CHF (congestive heart failure) Morbid obesity with BMI of 45.0-49.9, adult HTN (hypertension) COPD (chronic obstructive pulmonary disease) Asthma Family History Family History Mother Kidney failure Social History Social History (Updated 03/04/25 @ 12:35 by Pawan Diggs MD) Social History: She lived with her of 48 years until 08/2024 when she was discharged to [place]. She has 2 adult children who do not live nearby. She is a lifelong nonsmoker and denies any history of drug use. 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 She used to drink a couple of alcoholic beverages a week but has not done so in many years. Code status: DNR Smoking status: Never smoker Alcohol intake: never Substance use: never Do You Feel Safe in your Home?: Yes Lack of Transportation: No Lack of Food: Never True Current Housing: I Have Housing Concerned About Future Housing: No Difficulty Paying Gas/Electric Bills: No Difficulty Paying for Meds: No Currently Unemployed: No Education: Decline to Answer Difficulty w/ Childcare or Family Care: No Living arrangements: with family Additional living arrangements comments: Spiritual care concerns: No Meds Home Medications and Allergies Home Medications ?Medication ?Instructions ?Recorded ?Confirmed ?Type apixaban 2.5 mg tablet (Eliquis) 2.5 mg PO BID 08/07/24 03/03/25 History atorvastatin 10 mg tablet 5 mg PO QPM 08/07/24 03/03/25 History bupropion HCl 150 mg tablet,12 hr 150 mg PO BID 08/07/24 03/03/25 History sustained-release carvedilol 3.125 mg tablet 3.125 mg PO BID 08/07/24 03/03/25 History fluoxetine 20 mg capsule 20 mg PO DAILY 08/07/24 03/03/25 History fluticasone propionate 50 1 spray intranasal DAILY 08/07/24 03/03/25 History mcg/actuation nasal spray,suspension (Flonase Allergy Relief) furosemide 40 mg tablet 40 mg PO DAILY 08/07/24 03/03/25 History loratadine 10 mg tablet 10 mg PO DAILY 08/07/24 03/03/25 History sacubitril 24 mg-valsartan 26 mg 1 tablet PO BID 08/07/24 03/03/25 History tablet (Entresto) spironolactone 25 mg tablet 25 mg PO DAILY 08/07/24 03/03/25 History topiramate 25 mg tablet 25 mg PO BID 08/07/24 03/03/25 History polyethylene glycol 3350 17 gram 17 g PO QAM PRN Constipation #30 ea 08/22/24 03/03/25 Rx oral powder packet (Miralax) clotrimazole 1 % topical cream 1 applic topical QAM AND QPM 03/03/25 03/03/25 History ferrous sulfate 325 mg (65 mg 325 mg PO DAILY 03/03/25 03/03/25 History iron) tablet ondansetron HCl 4 mg tablet 4 mg PO Q8H PRN nausea and vomiting 03/03/25 03/03/25 History sulfamethoxazole 800 1 tablet PO Q12H 03/03/25 03/03/25 History mg-trimethoprim 160 mg tablet (Bactrim DS) Allergies Allergy/AdvReac Type Severity Reaction Status Date / Time quinapril Allergy Unknown Unknown Verified 03/03/25 20:23 Vital Signs Vital Signs - 24 hr 03/03/25 20:14 03/03/25 20:35 03/03/25 22:25 Temperature 96.4 F L Pulse Rate 83 83 Respiratory Rate 14 14 Blood Pressure 45/28 L Pulse Oximetry 93 Oxygen Delivery Room Air 03/04/25 05:43 03/04/25 07:59 03/04/25 09:19 Temperature 97.6 F Pulse Rate 70 Respiratory Rate 12 8 L Blood Pressure 48/31 L Pulse Oximetry 92 Oxygen Delivery Room Air Exam Narrative: Elderly female lying supine in hospital bed in no acute distress Neck without JVD Chest clear to auscultation with normal effort, occasional apneas Heart normal S1-S2 with regular rate no audible murmurs Extremities no edema Abdomen silent bowel sounds, soft, no palpable mass Musculoskeletal no gross deformity visual inspection Neurologic cranial nerves symmetric Psychiatric unresponsive to verbal or tactile stimuli Assessment and Plan Assessment and plan (1) Hospice care: Code(s): Z51.5 - Encounter for palliative care Status: Acute Assessment and Plan: * Meet inpatient hospice criteria due to requiring continuous IV morphine and scheduled IV Ativan for symptom control * 03/04/2025: Discussed care and prognosis with and son at bedside (2) Hypotension: Code(s): I95.9 - Hypotension, unspecified Status: Acute (3) Heart failure: Code(s): I50.9 - Heart failure, unspecified Status: Acute (4) Atrial fibrillation: Qualifiers: Atrial fibrillation type: paroxysmal Qualified Code(s): I48.0 - Paroxysmal atrial fibrillation Code(s): I48.91 - Unspecified atrial fibrillation Status: Acute
[2025-03-05 00:13] VITALS: RESP 4
[2025-03-05 00:42] VITALS: RESP 4
[2025-03-05 02:00] VITALS: RESP 5
[2025-03-05 03:08] VITALS: RESP 7
--- NOTE | 2025-03-05 14:41 | P.DN_ITS ---
Discharge Summary Date and Time Date of : 03/05/25 Time of : 05:45 Provider Pronounced By: 2 RNs Name of First RN That Pronounced: ABHIJIT VILLAREAL RN Name of Second RN That Pronounced: ROSA SALAS Probable Cause of Probable Cause of : congestive heart failure Summary Hospital Course: Admitted to inpatient service for symptom management Medications titrated to comfort Mrs. Juarez peacefully. Additional Data Confirmation of as documented by pronouncing clinician: Pupillary Reflex, Palpable Pulses, Response to Stimuli, Heart Tones and Breath Sounds Name of Provider Notified: FRANC MAK Time Provider Notified: 06:40 Provider Requests Autopsy: No Family Requests Autopsy: No Paraeducator Notified: Yes Date [facility] Notified of : 03/05/25 Time [facility] Notified of : 06:30
== END 2025-03-05 05:45 | disposition expired | DRG 951 ==
PROVIDERS: Admitting Provider Internal Medicine; Visit Provider Internal Medicine
DX: Z51.5 Encounter for palliative care (principal); I13.0 Hypertensive heart and chronic kidney disease with heart failure and stage 1 through stage 4 chronic kidney disease, or unspecified chronic kidney disease; I48.0 Paroxysmal atrial fibrillation; I50.9 Heart failure, unspecified; N18.9 Chronic kidney disease, unspecified
CPT/HCPCS: A9270; J2270